=== PATIENT | male | born 1950 | race Caucasian/White ===

== ENCOUNTER 2019-02-27 06:00 | Outpatient (RCR) | payer OTHER, SELFPAY | END 2019-03-29 00:01 | LOC: MPT 06:00 | PROVIDERS: Family Provider Internal Medicine; Visit Provider Internal Medicine | DX: M54.30 Sciatica, unspecified side (principal) | CPT/HCPCS: 97110 ×2; 97140 ×6; 97530 ×5 ==

== ENCOUNTER 2019-03-30 06:00 | Outpatient (RCR) | payer OTHER, SELFPAY | END 2019-04-29 23:59 | disposition home or self-care (01) | LOC: MPT 06:00 | PROVIDERS: Family Provider Internal Medicine; PCP Internal Medicine; Visit Provider Internal Medicine | DX: M54.5 Low back pain (principal) | CPT/HCPCS: 97110; 97116; 97140; 97530 ==

== ENCOUNTER 2019-04-07 13:40 | Emergency (ER) | payer OTHER, SELFPAY ==
[2019-04-07 14:00] VITALS: BP 175/103; PULSE 87; RESP 20; TEMP 36.7; O2SAT 94; BMI 39.5
--- NOTE | 2019-04-07 14:26 | ED_ITS ---
Entered by Lita Hager, acting as scribe for Roberto Keys DO Apr 07, 2019 13:40 HPI - General Adult General: Chief complaint: General Medical Stated complaint: swelling of both legs Time Seen by Provider: 04/07/19 14:22 Source: patient Mode of arrival: ambulatory Limitations: no limitations History of Present Illness: HPI narrative: 69 yo m came to the er pov for swelling in legs and sob. Pt states that he cannot lay flat causes him to loose his breath. Pt states that he has to sleep in his chair cause he cannot lay flat. Pt states that the swelling in his legs since Thursday. Pt states that depending on how he feels he will take a 20 or a 40 in lasiks, pt states that today he took 80gm. Pt says that he also has not had a bowel movement in 5 days. MD complaint: legs swelling and sob Onset (ago): day(s) (5 days ago) Radiation: non-radiation Severity: mild Pain Consistency: constant Relieving factors: none Associated symptoms: Deny chest pain, dyspnea, malaise or rash Treatments prior to arrival: none Review of Systems Const: Denies: fever, chills, body aches, change in appetite, fatigue or malaise ENMT: Denies: throat pain, ear pain, nasal discharge or nasal congestion Card: Denies: chest pain, edema, shortness of breath on exertion or shortness of breath when lying down Resp: Denies: shortness of breath, productive cough or non-productive cough GI: Reports: constipation and other : Denies: flank pain, painful urination, urinary frequency or urinary urgency Skin/Breast: Denies: rash or itching PFSH ED PFSH: Statuses (acute, chronic, etc) shown below reflect problem list status as previously entered and may not be historically accurate Social History Smoking and tobacco status: never smoked Physical Exam Const: COMMON NORMALS: no apparent distress GENERAL APPEARANCE: cooperative and comfortable ORIENTATION/CONSCIOUSNESS: Yes awake, Yes oriented to person, Yes oriented to place and Yes oriented to time HENMT: COMMON NORMALS: normocephalic, head/scalp atraumatic, hearing grossly normal bilaterally, external ears normal, EAC's normal, TM's normal bilaterally, nasal mucous membranes and turbinates normal, moist oral mucous membranes and oropharynx normal HEAD & SCALP: normocephalic and atraumatic NOSE: nasal mucous membranes and turbinates normal EXTERNAL EAR: Yes external ears normal EXTERNAL AUDITORY CANAL: EAC's normal TYMPANIC MEMBRANE: TM's normal bilaterally Eye: COMMON NORMALS: PERRL, EOMs intact bilaterally, conjunctivae normal and no scleral icterus CONJUNCTIVA: Yes conjunctivae normal PUPIL: Yes PERRL Neck/C-Spine: COMMON NORMALS: full ROM, no lymphadenopathy, supple and no JVD Lymph: LYMPHATIC: no lymphadenopathy noted and no lymphedema noted Resp: COMMON NORMALS: normal respiratory effort, no retractions, no use of accessory muscles and clear to auscultation bilaterally AUSCULTATION: clear to auscultation bilaterally Cardio: COMMON NORMALS: no JVD, regular rate, regular rhythm and no murmurs RATE: regular rate RHYTHM: regular rhythm GI: COMMON NORMALS: soft to palpation and no hepatosplenomegaly INSPECTION: Yes anasarca present and Yes pannus present AUSCULTATION: Yes normoactive bowel sounds PALPATION: Yes soft, No tender, No guarding, No rigid and Yes no hepatosplenomegaly Extremity: COMMON NORMALS: normal to inspection, normal capillary refill and no calf tenderness GENERAL: Yes edema (Lateral lower extremity edema there is also some mild anasarca) Neuro: SENSORIUM/ORIENTATION: Yes oriented to person, Yes oriented to place and Yes oriented to time Skin: COMMON NORMALS: no rashes or lesions noted GENERAL SKIN EXAM: no rashes or lesions noted Course Vital Signs: Vital signs: Vital Signs Temperature 98.0 F 04/07/19 14:00 Pulse Rate 89 04/07/19 17:22 Respiratory Rate 17 04/07/19 17:22 Blood Pressure 169/96 04/07/19 17:22 Pulse Oximetry 95 04/07/19 17:22 [facility] - General Adult Lab Data: Labs: Lab Results 04/07/19 04/07/19 04/07/19 Range/Units 14:40 14:40 14:40 WBC 9.8 (4.0-10.0) 10^3/ uL RBC 4.98 (4.1-5.3) 10^6/u L Hgb 14.7 (11.7-16.6) g/dL Hct 42.7 (42.0-52.0) % MCV 85.7 (80-94) fL MCH 29.5 (28.0-34.0) pg MCHC 34.4 (30.0-36.0) g/dL RDW 12.6 (12.1-15.1) % Plt Count 194 (130-400) 10^3/c mm MPV 9.8 (7.4-10.4) fL Neut % (Auto) 61.7 % Lymph % (Auto) 29.5 % [place] % (Auto) 6.4 % Eos % (Auto) 1.5 % Baso % (Auto) 0.4 % Neut # (Auto) 6.0 (1.8-7.7) 10^3/u L Lymph # (Auto) 2.9 (0.8-4.8) 10^3/u L [place] # (Auto) 0.6 (0.2-0.9) 10^3/u L Eos # (Auto) 0.2 (0.0-0.8) 10^3/u L Baso # (Auto) 0.0 (0.0-0.1) 10^3/u L Nucleated RBC % (a uto) 0 % Nucleated RBCs # 0.0 /100WBC Sodium 141 (136-145) mmol/L Potassium 3.4 L (3.5-5.1) mmol/L Chloride 100 (98-107) mmol/L Carbon Dioxide 29 (22-29) mmol/L Anion Gap 15.4 (5-19) BUN 13 (8-23) mg/dL Creatinine 0.9 (0.7-1.2) mg/dL GFR Calculation 83.4 L (90-130) mL/min Glucose 127 H (74-106) mg/dL Calcium 9.4 (8.8-10.2) mg/Dl Total Bilirubin 0.3 (0.15-1.2) mg/dL AST 26 (0-40) U/L ALT 19 (0-41) U/L Alkaline Phosphata se 100 (40-130) IU/L NT-Pro-B Natriuret Pep 946 H (0-125) pg/mL Total Protein 6.3 L (6.6-8.7) g/dL Albumin 4.0 (3.5-5.2) g/dL Globulin 2.3 (1.3-4.6) g/dL Imaging Data^: CXR: Radiologist's impression: [address] [address] XRay Report Signed Patient: Giles Guillaume LMR#: [id number] : 9Acct:[id number] Age/Sex: 69 / MADM Date: 04/07/19 Loc: ER Attending Dr: Ordering Physician: Roberto Keys DO Date of Service: 04/07/19 Procedure(s): XR chest 1V portable [id number] Accession Number(s): [id number] Report Number: [id number] WS: [id number] Portable AP upright chest, 04/07/2019 Clinical Data: dyspnea Comparison: Portable chest, 02/12/2018. Findings: No nodules, masses or effusions are seen. The heart is enlarged. The pulmonary vascularity is not increased. No pneumonia or pneumothorax is seen. The aortic arch and descending aorta show calcification and tortuosity. Cardiomegaly and atherosclerosis. XR/XR chest 1V portable [id number] Impression: Dictated By:Tiffanie Mccabe MD Discharge Plan Discharge Patient Disposition: Home, Self-Care Clinical Impression: Edema Qualifiers: Edema type: generalized Qualified Code(s): R60.1 - Generalized edema Condition: Stable Prescriptions: New Lasix 40 mg tablet 60 mg PO DAILY Qty: 7 RF: 0 potassium chloride 20 mEq tablet extended release 40 meq PO BID Qty: 12 RF: 0 Discharge Orders: Discharge Order (Routine); Ordered 04/07/19 Ordered By: Roberto Keys Referrals: Trent Carolina [Primary Care Provider] - Discharge Diet: Low Salt Discharge Activity: Resume usual activity Activity Restrictions/Additional Instructions: Follow-up with your primary care doctor in 3 days. For the next 3 days take Lasix 60 mg daily and potassium 40 mEq twice daily after 3 days resume your usual doses of both Lasix and potassium. Interventions: ED Discharge Assessment Last Done: 04/07/19 17:22 Discharge Date/Time: 04/07/19 17:23 Coding Level of Care Code ED Cultural Anthropology Professor for Chg Fwd Exam Problem Focused The documentation recorded by the Madan fitzpatrick Stephanie Lyn, accurately reflects the service I personally performed and the decisions made by me, Roberto Keys, Apr 07, 2019 13:40
[2019-04-07 14:40] VITALS: RESP 20
--- NOTE | 2019-04-07 14:44 | XR_ITS ---
WS: [id number] Portable AP upright chest, 04/07/2019 Clinical Data: dyspnea Comparison: Portable chest, 02/12/2018. Findings: No nodules, masses or effusions are seen. The heart is enlarged. The pulmonary vascularity is not increased. No pneumonia or pneumothorax is seen. The aortic arch and descending aorta show trice cification and tortuosity. Cardiomegaly and atherosclerosis. XR/XR chest 1V portable [id number] Impression:
[2019-04-07 15:01] LABS: Basophils % 0.4 %; Eosinophils # 0.2 10^3/uL (0.0-0.8); Eosinophils % 1.5 %; Hematocrit 42.7 % (42.0-52.0); Hemoglobin 14.7 g/dL (11.7-16.6); Lymphocytes # 2.9 10^3/uL (0.8-4.8); Lymphocytes % 29.5 %; Mean Corpuscular HGB Conc 34.4 g/dL (30.0-36.0); Mean Corpuscular Hemoglobin 29.5 pg (28.0-34.0); Mean Corpuscular Volume 85.7 fL (80-94); Mean Platelet Volume 9.8 fL (7.4-10.4); Monocytes # 0.6 10^3/uL (0.2-0.9); Monocytes % 6.4 %; Neutrophils % 61.7 %; Nucleated Red Blood Cells % 0 %; Platelet Count 194 10^3/cmm (130-400); Red Blood Count 4.98 10^6/uL (4.1-5.3); Red Cell Distribution Width 12.6 % (12.1-15.1); White Blood Count 9.8 10^3/uL (4.0-10.0)
[2019-04-07 15:17] LABS: Alanine Aminotransferase 19 U/L (0-41); Alkaline Phosphatase 100 IU/L (40-130); Anion Gap 15.4 (5-19); Blood Urea Nitrogen 13 mg/dL (8-23); Calcium 9.4 mg/Dl (8.8-10.2); Carbon Dioxide 29 mmol/L (22-29); Chloride 100 mmol/L (98-107); Globulin 2.3 g/dL (1.3-4.6); Glomerular Filtration Rate 83.4 mL/min (90-130); Glucose 127 mg/dL (74-106); Potassium 3.4 mmol/L (3.5-5.1); Sodium 141 mmol/L (136-145); Total Bilirubin 0.3 mg/dL (0.15-1.2); Total Protein 6.3 g/dL (6.6-8.7)
[2019-04-07 15:27] LABS: NT Pro B Type Natriuretic Pept 946 pg/mL (0-125)
[2019-04-07 15:40] LABS: Aspartate Amino Transferase 26 U/L (0-40)
[2019-04-07] MEDS: FUROsemide 10 mg/mL SDV 10mL 60 MG IVP (16:36)
[2019-04-07 17:22] VITALS: BP 169/96; PULSE 89; RESP 17; O2SAT 95
== END 2019-04-07 17:23 | disposition home or self-care (01) ==
PROVIDERS: Emergency Provider Family Medicine; Family Provider Internal Medicine; PCP Internal Medicine
DX: R60.1 Generalized edema (principal); I70.0 Atherosclerosis of aorta
CPT/HCPCS: 71045; 80053; 83880; 85025; 96374; 96375; 99281; J1940

== ENCOUNTER 2019-04-30 06:00 | Outpatient (RCR) | payer OTHER, SELFPAY | END 2019-05-28 23:59 | disposition home or self-care (01) | LOC: MPT 06:00 | PROVIDERS: Family Provider Internal Medicine; PCP Internal Medicine; Visit Provider Internal Medicine | DX: Z01.89 Encounter for other specified special examinations (principal) ==

== ENCOUNTER 2019-05-04 14:36 | Emergency (ER) | payer OTHER, SELFPAY ==
[2019-05-04 14:42] VITALS: BP 207/138; PULSE 99; RESP 16; TEMP 36.6; O2SAT 94; BMI 39.5
--- NOTE | 2019-05-04 14:44 | ED_ITS ---
Entered by Juliette Reid, acting as scribe for Roberto Keys DO May 04, 2019 14:36 HPI - General Adult General: Chief complaint: General Medical Stated complaint: High Blood pressure Time Seen by Provider: 05/04/19 14:44 PFSH ED PFSH: Statuses (acute, chronic, etc) shown below reflect problem list status as previously entered and may not be historically accurate Social History Smoking and tobacco status: former smoker Course Vital Signs: Vital signs: Vital Signs Temperature 97.8 F 05/04/19 14:42 Pulse Rate 85 05/04/19 17:14 Respiratory Rate 20 H 05/04/19 17:14 Blood Pressure 188/119 05/04/19 17:14 Pulse Oximetry 94 05/04/19 17:14 MDM - General Adult Lab Data: Labs: Lab Results 05/04/19 05/04/19 05/04/19 Range/Units 15:30 15:30 15:51 WBC 10.2 H (4.0-10.0) 10^3/ uL RBC 5.34 H (4.1-5.3) 10^6/u L Hgb 15.2 (11.7-16.6) g/dL Hct 45.7 (42.0-52.0) % MCV 85.6 (80-94) fL MCH 28.5 (28.0-34.0) pg MCHC 33.3 (30.0-36.0) g/dL RDW 13.0 (12.1-15.1) % Plt Count 212 (130-400) 10^3/c mm MPV 10.5 H (7.4-10.4) fL Neut % (Auto) 59.7 % Lymph % (Auto) 30.8 % [place] % (Auto) 7.1 % Eos % (Auto) 1.6 % Baso % (Auto) 0.6 % Neut # (Auto) 6.1 (1.8-7.7) 10^3/u L Lymph # (Auto) 3.1 (0.8-4.8) 10^3/u L [place] # (Auto) 0.7 (0.2-0.9) 10^3/u L Eos # (Auto) 0.2 (0.0-0.8) 10^3/u L Baso # (Auto) 0.1 (0.0-0.1) 10^3/u L Nucleated RBC % (a uto) 0 % Nucleated RBCs # 0.0 /100WBC Sodium 141 (136-145) mmol/L Potassium 3.8 (3.5-5.1) mmol/L Chloride 102 (98-107) mmol/L Carbon Dioxide 29 (22-29) mmol/L Anion Gap 13.8 (5-19) BUN 10 (8-23) mg/dL Creatinine 1.3 H (0.7-1.2) mg/dL GFR Calculation 54.6 L (90-130) mL/min Glucose 119 H (65-115) mg/dL Calcium 9.6 (8.5-10.5) mg/dL Total Bilirubin 0.4 (0.15-1.2) mg/dL AST 30 (0-40) U/L ALT 11 (0-41) U/L Alkaline Phosphata se 100 (40-130) IU/L NT-Pro-B Natriuret Pep 1841 H (0-125) pg/mL Total Protein 6.9 (6.6-8.7) g/dL Albumin 4.1 (3.5-5.2) g/dL Globulin 2.8 (1.3-4.6) g/dL Urine Color Yellow (Yellow) Urine Appearance Clear (CLEAR) Urine pH 7 (5-7) Ur Specific Gravit y 1.005 (1.005-1.030) Urine Protein 1+ H (Negative) Urine Glucose (UA) Norm (Normal) Urine Ketones Negative (Negative) Urine Occult Blood Neg (Negative) Urine Nitrate Negative (Negative) Urine Bilirubin Neg (NEGATIVE) Urine Urobilinogen Norm (Negative) mg/dL Ur Leukocyte Fariha ase Negative (Negative) Urine RBC 0-4 H (0-2) /hpf Urine WBC None (0-5) /hpf Ur Squamous Epith Cells None (0-5) Urine Bacteria None (NONE) Discharge Plan Discharge Patient Disposition: Home, Self-Care Clinical Impression: Benign essential HTN, Atrial fibrillation, chronic CHF (congestive heart failure) Qualifiers: Heart failure type: unspecified Heart failure chronicity: chronic Qualified Code(s): I50.9 - Heart failure, unspecified Chronic hip pain Qualifiers: Laterality: right Qualified Code(s): M25.551 - Pain in right hip Condition: Stable Prescriptions: New clonidine HCl 0.1 mg tablet 0.1 mg PO Q6H PRN (Reason: hypertensive emergency) 2 Days Qty: 14 RF: 0 No Action Lasix 40 mg tablet 60 mg PO DAILY Qty: 7 RF: 0 potassium chloride 20 mEq tablet extended release 40 meq PO BID Qty: 12 RF: 0 Discharge Orders: Discharge Order (Routine); Ordered 05/04/19 Ordered By: Lee Villalobos Referrals: Trent Carolina [Primary Care Provider] - Discharge Diet: Advance as tolerated Discharge Activity: Increase activity as tolerated Patient Instructions: Chronic Hypertension (ED) Activity Restrictions/Additional Instructions: Follow-up with medical provider as directed. Take medications as prescribed. Return to the ER or your medical provider if condition worsens. Please read and understand discharge instructions. If any questions ask please. [facility] 2 Discharge Date/Time: 05/04/19 17:15 Coding Level of Care Code ED Automatic Mold Sander for Chg Randal The documentation recorded by the Franklin fitzpatrick Bridget Annette, accurately reflects the service I personally performed and the decisions made by Massimo holguin Curtis L, DO May 04, 2019 14:36
[2019-05-04 14:55] VITALS: O2SAT 95
--- NOTE | 2019-05-04 15:07 | XRR_ITS ---
PROCEDURE INFORMATION: Exam: XR Chest, 1 View Exam date and time: 05/04/2019 3:23 PM Age: 69 years old Clinical indication: Shortness of breath TECHNIQUE: Imaging protocol: XR of the chest Views: 1 view. COMPARISON: CR XR chest 1V portable [id number] 04/07/2019 2:59 PM FINDINGS: Lungs: Unremarkable. No consolidation. Pleural space: Unremarkable. No pleural effusion. No pneumothorax. Heart/Mediastinum: Unremarkable. No cardiomegaly. Bones/joints: Unremarkable. No interval changes are noted compared to prior XR/XR chest 1V portable [id number] IMPRESSION: Stable examination No acute findings.
--- NOTE | 2019-05-04 15:07 | ECG_ITS ---
Measurements Intervals [place] Rate: 86 P: VT: 0 QRS: 58 QRSD: 120 T: 1 QT: 416 QTc: 499 ATRIAL FIBRILLATION RIGHT BUNDLE BRANCH BLOCK [120+ ms QRS DURATION, UPRIGHT V1, 40+ ms S IN I/ I/aVL/V4/V5/V6] Compared to ECG 02/13/2018 04:21:11 Right bundle-branch block now present Atrial abnormality no longer present Electronically Signed On 05-04-2019 17:28:27 CHILD CARE TEAM LEAD by Dennys Fernandez M.D. [email or web address]
--- NOTE | 2019-05-04 15:14 | ED_ITS ---
HPI - General Adult General: Chief complaint: General Medical Stated complaint: High Blood pressure Time Seen by Provider: 05/04/19 14:44 History of Present Illness: HPI narrative: Patient was sent here by physical therapy due to high blood pressure reading prior to start of therapy. Patient is been having therapy on his right leg since October. [facility] Recently placed on losartan 2 weeks ago. MD complaint: htn Onset (ago): week(s) Associated symptoms: Deny chest pain, dyspnea, headache(s), nausea, rash or vomiting Review of Systems Const: Denies: fever, chills or body aches Eyes: Denies: change in vision or blurry vision ENMT: Denies: throat pain or nasal congestion Card: Reports: other (High blood pressure); Denies: chest pain or shortness of breath on exertion Resp: Denies: shortness of breath, productive cough or non-productive cough GI: Denies: abdominal pain, nausea or vomiting : Denies: difficulty urinating Musc: Reports: extremity pain Skin/Breast: Denies: rash Neuro: Denies: headache Psych: Denies: anxiety or depression Bharat/Lymph: Denies: easy bruising PFSH ED PFSH: Statuses (acute, chronic, etc) shown below reflect problem list status as previously entered and may not be historically accurate Social History Smoking and tobacco status: former smoker Physical Exam Const: COMMON NORMALS: no apparent distress, average body habitus and oriented x3 HENMT: COMMON NORMALS: normocephalic HEAD & SCALP: normal to inspection and normocephalic FACE & SINUS: normal facial exam Eye: COMMON NORMALS: conjunctivae normal GENERAL EYE: normal appearance of both eyes CONJUNCTIVA: Yes conjunctivae normal Neck/C-Spine: COMMON NORMALS: no JVD Chest: COMMONS NORMALS: inspection of chest normal Resp: COMMON NORMALS: normal respiratory effort and clear to auscultation bilaterally AUSCULTATION: clear to auscultation bilaterally Cardio: COMMON NORMALS: no JVD, regular rate and regular rhythm JUGULAR VENOUS DISTENTION: no JVD RATE: regular rate RHYTHM: regular rhythm PERIPHERAL PULSES: other (Has bilateral pedal edema 2+) GI: COMMON NORMALS: normal to inspection, nondistended, normoactive bowel sounds AUSCULTATION: Yes normoactive bowel sounds OTHER: Obesity Extremity: COMMON NORMALS: normal to inspection and full ROM Neuro: COMMON NORMALS: oriented x3 Course Vital Signs: Vital signs: Vital Signs Temperature 97.8 F 05/04/19 14:42 Pulse Rate 71 05/04/19 16:35 Respiratory Rate 18 05/04/19 16:35 Blood Pressure 154/99 05/04/19 16:42 Pulse Oximetry 95 05/04/19 16:35 MDM - General Adult MDM Narrative: Medical decision making narrative: Blood pressure is much better shot has helped his pain Lab Data: Labs: Lab Results 05/04/19 05/04/19 Range/Units 15:30 15:30 WBC 10.2 H (4.0-10.0) 10^3/ uL RBC 5.34 H (4.1-5.3) 10^6/u L Hgb 15.2 (11.7-16.6) g/dL Hct 45.7 (42.0-52.0) % MCV 85.6 (80-94) fL MCH 28.5 (28.0-34.0) pg MCHC 33.3 (30.0-36.0) g/dL RDW 13.0 (12.1-15.1) % Plt Count 212 (130-400) 10^3/c mm MPV 10.5 H (7.4-10.4) fL Neut % (Auto) 59.7 % Lymph % (Auto) 30.8 % [place] % (Auto) 7.1 % Eos % (Auto) 1.6 % Baso % (Auto) 0.6 % Neut # (Auto) 6.1 (1.8-7.7) 10^3/u L Lymph # (Auto) 3.1 (0.8-4.8) 10^3/u L [place] # (Auto) 0.7 (0.2-0.9) 10^3/u L Eos # (Auto) 0.2 (0.0-0.8) 10^3/u L Baso # (Auto) 0.1 (0.0-0.1) 10^3/u L Nucleated RBC % (a uto) 0 % Nucleated RBCs # 0.0 /100WBC Sodium 141 (136-145) mmol/L Potassium 3.8 (3.5-5.1) mmol/L Chloride 102 (98-107) mmol/L Carbon Dioxide 29 (22-29) mmol/L Anion Gap 13.8 (5-19) BUN 10 (8-23) mg/dL Creatinine 1.3 H (0.7-1.2) mg/dL GFR Calculation 54.6 L (90-130) mL/min Glucose 119 H (65-115) mg/dL Calcium 9.6 (8.5-10.5) mg/dL Total Bilirubin 0.4 (0.15-1.2) mg/dL AST 30 (0-40) U/L ALT 11 (0-41) U/L Alkaline Phosphata se 100 (40-130) IU/L NT-Pro-B Natriuret Pep 1841 H (0-125) pg/mL Total Protein 6.9 (6.6-8.7) g/dL Albumin 4.1 (3.5-5.2) g/dL Globulin 2.8 (1.3-4.6) g/dL EKG Data^: EKG 1: EKG interpretation date: 05/04/19 EKG interpretation time: 15:36 Interpretation: Atrial fib, RBBB, 86 bpm Computer generated interpretation: Chest X-Ray 05/04/19 15:07 IMPRESSION: Stable examination No acute findings. Discharge Plan Discharge Patient Disposition: Home, Self-Care Clinical Impression: Benign essential HTN, Atrial fibrillation, chronic Condition: Stable Prescriptions: New clonidine HCl 0.1 mg tablet 0.1 mg PO Q6H PRN (Reason: hypertensive emergency) 2 Days Qty: 14 RF: 0 No Action Lasix 40 mg tablet 60 mg PO DAILY Qty: 7 RF: 0 potassium chloride 20 mEq tablet extended release 40 meq PO BID Qty: 12 RF: 0 Discharge Orders: Discharge Order (Routine); Ordered 05/04/19 Ordered By: Lee Villalobos Referrals: Trent Carolina [Primary Care Provider] - Discharge Diet: Advance as tolerated Discharge Activity: Increase activity as tolerated Patient Instructions: Chronic Hypertension (ED) Activity Restrictions/Additional Instructions: Follow-up with medical provider as directed. Take medications as prescribed. Return to the ER or your medical provider if condition worsens. Please read and understand discharge instructions. If any questions ask please. [facility] 2 Coding Level of Care Code ED Educational Guidance Counselor for Chg Fwd Exam Problem Focused
[2019-05-04 15:35] LABS: Basophils # 0.1 10^3/uL (0.0-0.1); Basophils % 0.6 %; Eosinophils # 0.2 10^3/uL (0.0-0.8); Eosinophils % 1.6 %; Hematocrit 45.7 % (42.0-52.0); Hemoglobin 15.2 g/dL (11.7-16.6); Lymphocytes # 3.1 10^3/uL (0.8-4.8); Lymphocytes % 30.8 %; Mean Corpuscular HGB Conc 33.3 g/dL (30.0-36.0); Mean Corpuscular Hemoglobin 28.5 pg (28.0-34.0); Mean Corpuscular Volume 85.6 fL (80-94); Mean Platelet Volume 10.5 fL (7.4-10.4); Monocytes # 0.7 10^3/uL (0.2-0.9); Monocytes % 7.1 %; Neutrophils # 6.1 10^3/uL (1.8-7.7); Neutrophils % 59.7 %; Nucleated Red Blood Cells % 0 %; Platelet Count 212 10^3/cmm (130-400); Red Blood Count 5.34 10^6/uL (4.1-5.3); White Blood Count 10.2 10^3/uL (4.0-10.0)
[2019-05-04 15:53] LABS: Alanine Aminotransferase 11 U/L (0-41); Albumin Level 4.1 g/dL (3.5-5.2); Alkaline Phosphatase 100 IU/L (40-130); Anion Gap 13.8 (5-19); Aspartate Amino Transferase 30 U/L (0-40); Carbon Dioxide 29 mmol/L (22-29); Chloride 102 mmol/L (98-107); Globulin 2.8 g/dL (1.3-4.6); Glucose 119 mg/dL (65-115); Potassium 3.8 mmol/L (3.5-5.1); Sodium 141 mmol/L (136-145); Total Bilirubin 0.4 mg/dL (0.15-1.2); Total Protein 6.9 g/dL (6.6-8.7)
[2019-05-04 16:12] LABS: Blood Urea Nitrogen 10 mg/dL (8-23); Calcium 9.6 mg/dL (8.5-10.5); Glomerular Filtration Rate 54.6 mL/min (90-130); NT Pro B Type Natriuretic Pept 1841 pg/mL (0-125)
[2019-05-04 16:35] VITALS: BP 154/99; PULSE 71; RESP 18; O2SAT 95
[2019-05-04 16:42] VITALS: BP 154/99
[2019-05-04] MEDS: cloNIDine 0.1 mg Tablet PO (16:42)
[2019-05-04] MEDS: ketorolac 60 mg/2 mL INJ IM (16:42)
[2019-05-04 17:09] LABS: Add Urine Microscopic? YES; Bilirubin Urine Neg (NEGATIVE); Blood Urine Neg (Negative); Glucose Urine UA Norm (Normal); Ketones Urine Negative (Negative); Leukocyte Esterase Urine Negative (Negative); Nitrate Urine Negative (Negative); Protein Urine 1+ (Negative); Specific Gravity, Urine 1.005 (1.005-1.030); Urine Appearance Clear (CLEAR); Urine Color Yellow (Yellow); Urobilinogen Urine Norm (Negative); pH Urine 7 (5-7)
[2019-05-04 17:13] LABS: RBC Urine 0-4 /hpf (0-2)
[2019-05-04 17:14] VITALS: BP 188/119; PULSE 85; RESP 20; O2SAT 94
== END 2019-05-04 17:15 | disposition home or self-care (01) ==
PROVIDERS: Emergency Provider Nurse Practitioner Family; Family Provider Internal Medicine; PCP Internal Medicine
DX: I48.20 Chronic atrial fibrillation, unspecified (principal); I10 Essential (primary) hypertension; Z87.891 Personal history of nicotine dependence
CPT/HCPCS: 36415; 71045; 80053; 81001; 83880; 85025; 93005; 96372; 99282; 99283; A9270; J1885

== ENCOUNTER 2019-05-31 13:32 | Emergency (ER) | payer OTHER, SELFPAY ==
[2019-05-31 13:37] VITALS: BP 167/109; PULSE 87; RESP 17; TEMP 36.7; O2SAT 97; BMI 41.6
--- NOTE | 2019-05-31 13:45 | XR_ITS ---
WS: [id number] XR chest 1V portable [id number] REASON FOR EXAM: sob FINDINGS: Cardiomegaly is noted. Arteriosclerotic changes in the arch of the aorta. The lung mazariegos are well aerated. No pneumonia, pleural effusion, pulmonary edema, mass effect, or pn eumothorax. The hilum and apices are normal. No osseous abnormalities. XR/XR chest 1V portable [id number] IMPRESSION: Arteriosclerotic heart disease.
[2019-05-31 14:41] LABS: Basophils % 0.3 %; Eosinophils # 0.1 10^3/uL (0.0-0.8); Hematocrit 46.4 % (42.0-52.0); Hemoglobin 15.7 g/dL (11.7-16.6); Lymphocytes % 28.1 %; Mean Corpuscular HGB Conc 33.8 g/dL (30.0-36.0); Mean Corpuscular Hemoglobin 29.3 pg (28.0-34.0); Mean Corpuscular Volume 86.7 fL (80-94); Mean Platelet Volume 10.5 fL (7.4-10.4); Monocytes # 0.7 10^3/uL (0.2-0.9); Monocytes % 6.6 %; Neutrophils # 6.7 10^3/uL (1.8-7.7); Neutrophils % 63.6 %; Nucleated Red Blood Cells % 0 %; Platelet Count 200 10^3/cmm (130-400); Red Blood Count 5.35 10^6/uL (4.1-5.3); Red Cell Distribution Width 13.5 % (12.1-15.1); White Blood Count 10.5 10^3/uL (4.0-10.0)
[2019-05-31 15:15] LABS: Alanine Aminotransferase 23 U/L (0-41); Albumin Level 4.2 g/dL (3.5-5.2); Alkaline Phosphatase 107 IU/L (40-130); Anion Gap 17.5 (5-19); Aspartate Amino Transferase 28 U/L (0-40); Blood Urea Nitrogen 11 mg/dL (8-23); Calcium 9.6 mg/dL (8.5-10.5); Carbon Dioxide 31 mmol/L (22-29); Chloride 98 mmol/L (98-107); Globulin 2.6 g/dL (1.3-4.6); Glomerular Filtration Rate 59.9 mL/min (90-130); Glucose 128 mg/dL (65-115); NT Pro B Type Natriuretic Pept 2005 pg/mL (0-125); Potassium 3.5 mmol/L (3.5-5.1); Sodium 143 mmol/L (136-145); Total Bilirubin 0.7 mg/dL (0.15-1.2); Total Protein 6.8 g/dL (6.6-8.7)
[2019-05-31 16:09] VITALS: O2SAT 95
--- NOTE | 2019-05-31 16:22 | ED_ITS ---
HPI - General Adult General: Chief complaint: Shortness of Breath/Dyspnea Stated complaint: FLUID BUILT UP Time Seen by Provider: 05/31/19 16:03 History of Present Illness: HPI narrative: Patient comes in here with complaint of chronic shortness of breath fluid retention chronic back pain patient able to talk in full sentences and continue talk for quite a while he does not appear short of breath says it is more when he gets up and and exerts himself he cut back his water pill complaint: Chronic shortness of breath Onset (ago): month(s) Associated symptoms: Reports dyspnea; Deny chest pain, cough, fevers/chills, headache(s), nausea, rash or vomiting Review of Systems Const: Denies: fever, chills or body aches Eyes: Denies: change in vision or blurry vision ENMT: Denies: throat pain or nasal congestion Card: Reports: other (Edema); Denies: chest pain Resp: Reports: shortness of breath; Denies: productive cough or non-productive cough GI: Denies: abdominal pain, nausea or vomiting : Denies: difficulty urinating Musc: Denies: extremity pain Skin/Breast: Denies: rash Neuro: Denies: headache Psych: Denies: anxiety or depression Bharat/Lymph: Denies: easy bruising PFSH ED PFSH: Social History Smoking and tobacco status: former smoker Physical Exam Const: COMMON NORMALS: no apparent distress, average body habitus and oriented x3 HENMT: COMMON NORMALS: normocephalic HEAD & SCALP: normal to inspection and normocephalic FACE & SINUS: normal facial exam Eye: COMMON NORMALS: conjunctivae normal GENERAL EYE: normal appearance of both eyes CONJUNCTIVA: Yes conjunctivae normal Neck/C-Spine: COMMON NORMALS: no JVD Chest: COMMONS NORMALS: inspection of chest normal Resp: COMMON NORMALS: normal respiratory effort AUSCULTATION: crackles and diminished lung sounds Cardio: COMMON NORMALS: no JVD, regular rate and regular rhythm RATE: regular rate RHYTHM: regular rhythm GI: COMMON NORMALS: normal to inspection, nondistended, normoactive bowel sounds Extremity: COMMON NORMALS: normal to inspection and full ROM OTHER: 3+ edema bilateral lower extremities Neuro: COMMON NORMALS: oriented x3 Course Vital Signs: Vital signs: Vital Signs Temperature 98.1 F 05/31/19 13:37 Pulse Rate 87 05/31/19 13:37 Respiratory Rate 17 05/31/19 13:37 Blood Pressure 167/109 05/31/19 13:37 Pulse Oximetry 95 05/31/19 16:09 [facility] - General Adult Lab Data: Labs: Lab Results 05/31/19 05/31/19 Range/Units 14:25 14:25 WBC 10.5 H (4.0-10.0) 10^3/ uL RBC 5.35 H (4.1-5.3) 10^6/u L Hgb 15.7 (11.7-16.6) g/dL Hct 46.4 (42.0-52.0) % MCV 86.7 (80-94) fL MCH 29.3 (28.0-34.0) pg MCHC 33.8 (30.0-36.0) g/dL RDW 13.5 (12.1-15.1) % Plt Count 200 (130-400) 10^3/c mm MPV 10.5 H (7.4-10.4) fL Neut % (Auto) 63.6 % Lymph % (Auto) 28.1 % [place] % (Auto) 6.6 % Eos % (Auto) 1.0 % Baso % (Auto) 0.3 % Neut # (Auto) 6.7 (1.8-7.7) 10^3/u L Lymph # (Auto) 3.0 (0.8-4.8) 10^3/u L [place] # (Auto) 0.7 (0.2-0.9) 10^3/u L Eos # (Auto) 0.1 (0.0-0.8) 10^3/u L Baso # (Auto) 0.0 (0.0-0.1) 10^3/u L Nucleated RBC % (a uto) 0 % Nucleated RBCs # 0.0 /100WBC Sodium 143 (136-145) mmol/L Potassium 3.5 (3.5-5.1) mmol/L Chloride 98 (98-107) mmol/L Carbon Dioxide 31 H (22-29) mmol/L Anion Gap 17.5 (5-19) BUN 11 (8-23) mg/dL Creatinine 1.2 (0.7-1.2) mg/dL GFR Calculation 59.9 L (90-130) mL/min Glucose 128 H (65-115) mg/dL Calcium 9.6 (8.5-10.5) mg/dL Total Bilirubin 0.7 (0.15-1.2) mg/dL AST 28 (0-40) U/L ALT 23 (0-41) U/L Alkaline Phosphata se 107 (40-130) IU/L NT-Pro-B Natriuret Pep 2005 H (0-125) pg/mL Total Protein 6.8 (6.6-8.7) g/dL Albumin 4.2 (3.5-5.2) g/dL Globulin 2.6 (1.3-4.6) g/dL Discharge Plan Discharge Patient Disposition: Home, Self-Care Clinical Impression: Congestive heart failure Qualifiers: Heart failure type: unspecified Heart failure chronicity: chronic Qualified Code(s): I50.9 - Heart failure, unspecified Condition: Stable Prescriptions: New tramadol 50 mg tablet 50 mg PO Q6H PRN (Reason: pain) Qty: 20 RF: 0 No Action Lasix 40 mg tablet 60 mg PO DAILY Qty: 7 RF: 0 potassium chloride 20 mEq tablet extended release 40 meq PO BID Qty: 12 RF: 0 Discharge Orders: Discharge Order (Routine); Ordered 05/31/19 Ordered By: Lee Villalobos Referrals: Trent Carolina [Primary Care Provider] - Discharge Diet: Usual diet Discharge Activity: Increase activity as tolerated Patient Instructions: Congestive Heart Failure, Fluid Restriction (ED), Chronic Back Pain (ED) Activity Restrictions/Additional Instructions: Follow-up with medical provider as directed. Take medications as prescribed. Return to the ER or your medical provider if condition worsens. Please read and understand discharge instructions. If any questions ask please. Double up Lasix for next 3 to 5 days and double potassium also follow-up primary care provider to talk about medication to help with fluid limit fluid intake Coding Level of Care Code ED English Composition Teacher for Yris Tee
[2019-05-31 16:52] LABS: Influenza A by IFA Negative (Negative); Influenza B by IFA Negative (Negative)
[2019-05-31 16:57] VITALS: BP 158/99; PULSE 78; RESP 20; O2SAT 95
== END 2019-05-31 16:57 | disposition home or self-care (01) ==
PROVIDERS: Emergency Provider Nurse Practitioner Family; Family Provider Internal Medicine; PCP Internal Medicine
DX: I50.9 Heart failure, unspecified (principal); Z87.891 Personal history of nicotine dependence
CPT/HCPCS: 36415; 71045; 80053; 83880; 85025; 87804; 99282; 99283

== ENCOUNTER → 2019-06-21 13:15 | Outpatient (BNVA) | payer OTHER, SELFPAY | PROVIDERS: Family Provider Internal Medicine; PCP Internal Medicine; Referring Provider Podiatrist Foot & Ankle Surgery; Visit Provider Podiatrist Foot & Ankle Surgery | DX: M79.671 Pain in right foot (principal) | CPT/HCPCS: 73630 ==

== ENCOUNTER 2019-06-22 13:37 | Outpatient (CLI) | payer OTHER, SELFPAY ==
--- NOTE | 2019-06-22 14:00 | XR_ITS ---
WS: [id number] KUB, 06/22/2019 Clinical Data: RENAL CALCULUS Comparison: KUB, 03/03/2019. Findings: No abnormal intraabdominal masses or calcifications are seen. There is no dilatated small bowel or ev idence of obstruction. There is overlying fecal material obscuring detail over the both kidneys. No definite renal or ureter al calculi are seen. Phleboliths are seen in the true pelvis. The bladder is partly full. XR/XR KUB [id number] Impression: Negative for definite renal or ureteral calculi.
== END 2019-06-22 13:38 | disposition home or self-care (01) ==
LOC: RAD 13:39
PROVIDERS: Family Provider Internal Medicine; PCP Internal Medicine; Visit Provider Urology
DX: N20.0 Calculus of kidney (principal)
CPT/HCPCS: 74018; 80053; 81001; 88112

== ENCOUNTER 2019-06-24 04:36 | Inpatient (IN) | payer OTHER, SELFPAY ==
[2019-06-24] VITALS (18 sets, daily range): BP systolic 158–213; BP diastolic 81–108; PULSE 41–63; RESP 17–22; TEMP 36.6–37.1; O2SAT 92–97; BMI 41.9
--- NOTE | 2019-06-24 04:42 | XR_ITS ---
WS: [id number] Portable AP upright chest, 06/24/2019 Clinical Data: sob Comparison: Portable chest, 05/31/2019 Findings: The patient is developed a patchy opacity in right lower lobe which may represent pneumonia and atelectasis. The left costophrenic angle is partly opacified which may be from pleural reaction and/or atelectasis. The upper lobes are clear. The heart is enlarged. The aortic arch shows calcifica tion. No nodules or masses are seen. Monitor leads are on the chest wall. XR/XR chest 1V portable [id number] Impression: 1. Patchy opacity in right lower lobe which may represent pneumonia or atelecta sis. 2. Cardiomegaly and atherosclerosis.
--- NOTE | 2019-06-24 04:43 | ECG_ITS ---
Measurements Intervals [place] Rate: 47 P: DC: 0 QRS: -32 QRSD: 150 T: 128 QT: 511 QTc: 456 ATRIAL FIBRILLATION WITH SLOW VENTRICULAR RESPONSE MARKED LEFT AXIS DEVIATION [QRS AXIS < -30] INTRAVENTRICULAR CONDUCTION DELAY [130+ ms QRS DURATION] Compared to ECG 05/04/2019 15:36:31 Left-axis deviation now present Intraventricular conduction delay now present Right bundle-branch block no longer present Electronically Signed On 06-25-2019 9:43:06 CDT by Misty Nickerson M.D. [id number]
--- NOTE | 2019-06-24 04:44 | ED_ITS ---
HPI - SOB/Dyspnea General: Chief Complaint: Shortness of Breath/Dyspnea Stated Complaint: sob Time Seen by Provider: 06/24/19 04:42 Source: patient and EMS Mode of arrival: EMS Limitations: no limitations History of Present Illness: HPI Narrative: Patient is a 69-year-old male with a history of congestive heart failure and COPD states he has had increasing shortness of breath throughout the night. States his shortness of breath is much worse with exertion and laying flat. Patient states he is put on 15 pounds over the last week. Patient brought in by EMS and states that he was diaphoretic and quite short of breath when they arrived. He is not requiring any oxygen. He denies any pain. MD elicited complaint: shortness of breath Pertinent past history: congestive heart failure Context: occurred during exertion Timing: constant Severity: moderate Exacerbating factors: lying flat Relieving factors: rest and upright position Known history of: congestive heart failure Associated symptoms: Deny abdominal pain, chest pain, fever(s), nausea or vomiting Related Data: Home oxygen amount: none Review of Systems Const: Denies: fever, chills, body aches or change in appetite Eyes: Denies: blurry vision or eye discomfort ENMT: Denies: throat pain or dental pain Card: Denies: chest pain Resp: Reports: shortness of breath GI: Denies: abdominal pain, nausea, vomiting or diarrhea : Denies: painful urination Musc: Denies: neck pain or back pain Skin/Breast: Denies: rash Neuro: Denies: headache Psych: Denies: depression Bharat/Lymph: Denies: easy bruising All/Imm: Denies: hives PFS ED PFSH: Social History Smoking and tobacco status: light tobacco smoker smokeless tobacco Alcohol intake: never Marital status: Single Current occupational status: retired History of recent travel: No Physical Exam Const: COMMON NORMALS: no apparent distress, oriented x3 and healthy appearing HENMT: COMMON NORMALS: normocephalic and head/scalp atraumatic HEAD & SCALP: normocephalic and atraumatic Eye: COMMON NORMALS: PERRL and EOMs intact bilaterally PUPIL: Yes PERRL Neck/C-Spine: COMMON NORMALS: full ROM and supple Chest: COMMONS NORMALS: inspection of chest normal and palpation of chest normal Resp: COMMON NORMALS: normal respiratory effort, no retractions, no use of accessory muscles and clear to auscultation bilaterally EFFORT & INSPECTION: Yes tachypneic AUSCULTATION: clear to auscultation bilaterally Cardio: COMMON NORMALS: regular rhythm and no murmurs RATE: bradycardic RHYTHM: regular rhythm GI: COMMON NORMALS: normal to inspection, nondistended, normoactive bowel sounds, soft to palpation, non-tender and no masses PALPATION: Yes soft Extremity: COMMON NORMALS: normal to inspection and full ROM NARRATIVE EXTREMITY EXAM: 2+ edema Neuro: COMMON NORMALS: oriented x3, moves all extremities and no focal motor deficits Psych: COMMON NORMALS: mental status grossly normal, thought process normal and cooperative THOUGHT PROCESS: normal thought process Skin: COMMON NORMALS: no rashes or lesions noted and no wounds GENERAL SKIN EXAM: no rashes or lesions noted Course Vital Signs: Vital signs: Vital Signs Temperature 98.5 F 06/24/19 04:45 Pulse Rate 51 L 06/24/19 05:24 Respiratory Rate 22 H 06/24/19 05:24 Blood Pressure 178/90 06/24/19 05:24 Pulse Oximetry 96 06/24/19 05:24 MDM - SOB/Dyspnea MDM Narrative: Medical decision making narrative: Patient presents here with shortness of breath. Patient does have edema and likely has CHF exacerbation. Patient's x-ray shows possible right lower lobe pneumonia versus edema. Patient does have an elevated white count will get blood cultures and treat with Levaquin. Patient does not require CPAP and is not in severe distress. Patient has had some slight bradycardia in the 40s here likely due to beta-blockade. Spoke to hospitalist and will admit. Lab Data: Labs: Lab Results 06/24/19 Range/Units 05:13 WBC 19.8 H (4.0-10.0) 10^3/ uL RBC 5.56 H (4.1-5.3) 10^6/u L Hgb 16.3 (11.7-16.6) g/dL Hct 48.8 (42.0-52.0) % MCV 87.8 (80-94) fL MCH 29.3 (28.0-34.0) pg MCHC 33.4 (30.0-36.0) g/dL RDW 13.4 (12.1-15.1) % Plt Count 228 (130-400) 10^3/c mm MPV 11.0 H (7.4-10.4) fL Neut % (Auto) 78.2 % Lymph % (Auto) 14.4 % [place] % (Auto) 5.8 % Eos % (Auto) 0.7 % Baso % (Auto) 0.3 % Neut # (Auto) 15.5 H (1.8-7.7) 10^3/u L Lymph # (Auto) 2.9 (0.8-4.8) 10^3/u L [place] # (Auto) 1.1 H (0.2-0.9) 10^3/u L Eos # (Auto) 0.1 (0.0-0.8) 10^3/u L Baso # (Auto) 0.1 (0.0-0.1) 10^3/u L Nucleated RBC % (a uto) 0 % Nucleated RBCs # 0.0 /100WBC Imaging Data^: CXR: Attestation: I personally reviewed and interpreted this imaging study as follows: Radiologist's impression: rll pneumonia EKG Data^: EKG 1: Attestation: I personally reviewed and interpreted this EKG as follows: EKG Interpretation Date: 06/24/19 EKG interpretation time: 04:48 Interpretation: afib with slow rvr hr [address] or t wave abnormalities Discharge Plan Discharge Patient Disposition: Admitted As Inpatient Clinical Impression: Community acquired pneumonia Qualifiers: Laterality: right Lung location: lower lobe of lung Qualified Code(s): J18.9 - Pneumonia, unspecified organism Congestive heart failure Qualifiers: Heart failure type: unspecified Heart failure chronicity: acute on chronic Qualified Code(s): I50.9 - Heart failure, unspecified Condition: Stable Coding Level of Care Code ED 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
[2019-06-24] MEDS: ipratropium-albuterol 3 mL Neb INHALATION ×2 (05:17→10:20)
[2019-06-24] MEDS: FUROsemide 10 mg/mL SDV 10mL 80 MG IVP (05:21)
[2019-06-24 05:25] LABS: Basophils # 0.1 10^3/uL (0.0-0.1); Basophils % 0.3 %; Eosinophils # 0.1 10^3/uL (0.0-0.8); Eosinophils % 0.7 %; Hematocrit 48.8 % (42.0-52.0); Hemoglobin 16.3 g/dL (11.7-16.6); Lymphocytes # 2.9 10^3/uL (0.8-4.8); Lymphocytes % 14.4 %; Mean Corpuscular HGB Conc 33.4 g/dL (30.0-36.0); Mean Corpuscular Hemoglobin 29.3 pg (28.0-34.0); Mean Corpuscular Volume 87.8 fL (80-94); Monocytes # 1.1 10^3/uL (0.2-0.9); Monocytes % 5.8 %; Neutrophils # 15.5 10^3/uL (1.8-7.7); Neutrophils % 78.2 %; Nucleated Red Blood Cells % 0 %; Platelet Count 228 10^3/cmm (130-400); Red Blood Count 5.56 10^6/uL (4.1-5.3); Red Cell Distribution Width 13.4 % (12.1-15.1); White Blood Count 19.8 10^3/uL (4.0-10.0)
[2019-06-24 05:35] LABS: INR 1.09 (0.8-1.2)
--- NOTE | 2019-06-24 05:45 | PM.HP ---
Providers/Chief Complaint Admitting Physician: Dr Tovar Primary Care Provider: Trent Novoa Chief Complaint: CHF, BRADYCARDIA History of Present Illness Giles Guillaume is a 69 year old male who presents to the emergency room via EMS with a chief complaint of shortness of breath. He is a challenging historian. He has had progressively worsening shortness of breath and edema for several months. I cannot discern exactly what happened to make him come in acutely this morning. He describes significant weight gain of maybe 15 pounds. He has tried increasing dose of Lasix, under guidance from both ED and primary care providers to his much as 120 mg a day for several days. He will have some improvement in his edema but then it comes right back as soon as he goes down to his lower dose of Lasix. He has fluid that is extended up into his belly. He complains of his breast being swollen but has not had any scrotal edema. He does not think the Lasix is working for him. Lasix dosing has gone from 40 mg, to 60 mg, 80 and then the intermittent 120 mg. He had 120 mg of Lasix a day for the past 2 days. I really cannot discern what happened to make him come in to the emergency room tonight acutely. He denies chest pain but just being so short of breath with exertion that he cannot get much done. He has started having difficulty getting his recliner down because of the degree of edema in his legs. He is also started having dribbling of urine and urinary incontinence. He does follow with Dr. Almonte for renal calculus and prostatic hypertrophy. He has a known history of COPD, CHF and peripheral vascular disease. Denies any recent fevers. Cough is primarily nonproductive. He was noted to have some wheezing in addition to clinical volume overload. In the emergency room he received 80 mg of IV Lasix, steroids, breathing treatment and some Levaquin. Chest x-ray showed right lower lobe opacity consistent with either pneumonia or pulmonary edema. Back clinical history would be more consistent with edema. White count however is elevated. He is being admitted for further evaluation and treatment. While in the emergency room he was noted to have heart rate into the 40s. He is on carvedilol 25 mg p.o. twice daily. His PCP told him to not take it starting yesterday due to heart rate that was in the 40s at that point in time. History is obtained from review of old records and discussion with him. Again it is a bit challenging to get a clear picture from him. He does report having some home health but says they have not seen him recently. Review of Systems Const: Denies: fever Eyes: Reports: blurry vision (sometimes) ENMT: Denies: throat pain or nasal congestion Card: Reports: edema, lightheadedness and pre-syncope; Denies: chest pain or syncope Resp: Reports: shortness of breath, non-productive cough and wheezing; Denies: coughing up blood GI: Reports: abdominal pain (swelling), diarrhea, constipation and bloating; Denies: nausea or vomiting : Reports: difficulty urinating, urinary frequency, urinary urgency, urinary hesitancy, urinary dribbling and change in urine stream Musc: Reports: back pain and extremity pain (right hip, down leg to ankle not new) Skin/Breast: Reports: itching (ankles), redness, sores (legs) and other (legs leak water) Neuro: Reports: weakness in extremities (right) and difficulty walking (dizzy); Denies: headache Psych: Reports: anxiety; Denies: visual hallucinations Endo: Reports: excessive urination Bharat/Lymph: Reports: easy bruising; Denies: easy bleeding Medications/Allergies Home Medications Medication Instructions Recorded Confirmed Last Taken Type Lantus U-100 Insulin 44 units SUBCUT BEDTIME 06/24/19 06/24/19 06/23/19 21:00 History cholecalciferol (vitamin D3) 2,000 unit PO DAILY 06/24/19 06/24/19 06/23/19 06:00 History [Vitamin D3] furosemide [Lasix] 80 mg PO DAILY 06/24/19 06/24/19 06/23/19 08:00 History liraglutide [Victoza 3-Elias] 1.8 mg SUBCUT DAILY 06/24/19 06/24/19 06/23/19 08:00 History multivitamin 1 tab PO DAILY 06/24/19 06/24/19 06/23/19 08:00 History Allergies Allergy/AdvReac Type Severity Reaction Status Date / Time aspirin Allergy ADR-Nausea Verified 06/22/19 14:27 Additional Medication Information Additional Medication Information: Home Medications Medication Instructions Recorded Confirmed Type potassium chloride 40 meq PO BID #12 tab 04/07/19 06/24/19 Rx tramadol 50 mg PO Q6H PRN #20 tab 05/31/19 06/24/19 Rx apixaban 5 mg tablet 5 mg PO BID 06/22/19 06/24/19 History carvedilol 25 mg tablet 25 mg PO BID 06/22/19 06/24/19 History finasteride 5 mg tablet 5 mg PO QDAY #90 tab 06/22/19 06/24/19 Rx losartan 100 mg tablet 100 mg PO DAILY 06/22/19 06/24/19 History pregabalin 150 mg capsule 150 mg PO BID 06/22/19 06/24/19 History tamsulosin 0.4 mg capsule 0.4 mg PO BEDTIME 06/22/19 06/24/19 History Lantus U-100 Insulin 44 units SUBCUT BEDTIME 06/24/19 06/24/19 History cholecalciferol (vitamin D3) 2,000 unit PO DAILY 06/24/19 06/24/19 History [Vitamin D3] furosemide [Lasix] 80 mg PO DAILY 06/24/19 History liraglutide [Victoza 3-Elias] 1.8 mg SUBCUT DAILY 06/24/19 06/24/19 History multivitamin 1 tab PO DAILY 06/24/19 06/24/19 History PFSH Acute PFSH: Medical History (Updated 06/24/19 @ 07:44 by Nazanin Tovar MD) Atrial fibrillation chronic, on eliquis BPH NOS w/o ur obs/LUTS follows with Almonte Chronic kidney disease stage 2 Congestive heart failure chronic diastolic, last EF preserved CVA (cerebral vascular accident) residual right weakness Diabetes mellitus, type II victoza & lantus Hyperlipidemia Hypertension Obstructive sleep apnea not on treatment by choice Osteoarthritis PVD (peripheral vascular disease) Renal calculus, right follows with Almonte Surgical History No pertinent past surgical history Family History Mother , 87 Diabetes CAD (coronary artery disease) Hypertension Father , 60 No problems noted. Social History Smoking and tobacco status: light tobacco smoker smokeless tobacco Alcohol intake: never Marital status: Single Current occupational status: retired History of recent travel: No Vitals/I&O/Wt Last Vital Signs Temp 98.5 F 06/24/19 04:45 Pulse 51 L 06/24/19 05:24 Resp 22 H 06/24/19 05:24 BP 178/90 06/24/19 05:24 Pulse Ox 96 06/24/19 05:24 Weight last 48 hrs Weight 144.242 kg Physical Exam Const: COMMON NORMALS: oriented x3 and alert HENMT: HEAD & SCALP: normocephalic and atraumatic FACE & SINUS: other (Tobacco staining around his mouth and chin) Eye: COMMON NORMALS: PERRL and EOMs intact bilaterally Neck/C-Spine: COMMON NORMALS: supple GENERAL: Yes other (Large) Resp: COMMON NORMALS: no use of accessory muscles EFFORT & INSPECTION: Yes able to speak in complete sentences AUSCULTATION: wheezes scattered wheezes and diminished lung sounds bilateral in the lower lung mazariegos (Right worse than left) Cardio: COMMON NORMALS: no murmurs RHYTHM: abnormal rhythm irregularly irregular GI: COMMON NORMALS: soft to palpation and non-tender AUSCULTATION: Yes normoactive bowel sounds PALPATION: Yes other (Grossly edematous) : COMMON NORMALS: Yes external exam normal (No significant edema) Extremity: COMMON NORMALS: no joint enlargement GENERAL: Yes edema (4+) and Yes other findings Neuro: COMMON NORMALS: oriented x3, moves all extremities and no sensory deficits noted SENSORIUM/ORIENTATION: Yes alert Psych: ACTIVITY/MOTOR BEHAVIOR: Yes appropriate eye contact SPEECH: Yes excessive and Yes pressured INSIGHT: fair JUDGEMENT: fair Skin: NARRATIVE SKIN EXAM: Patient with chronic venous stasis changes. Some serous drainage from both legs right greater than left. On the left foot the third toe has some desquamation with serosanguineous fluid in an area that looks like it was probably a blister that came off. Toe is erythematous immediately around this but it does not extend beyond that. He has some bruising to his left upper extremity. Data : 06/24/19 05:13 Other Labs: Laboratory Results - last 24 hr 06/24/19 06/24/19 06/24/19 05:13 05:13 05:13 WBC 19.8 H RBC 5.56 H Hgb 16.3 Hct 48.8 MCV 87.8 MCH 29.3 MCHC 33.4 RDW 13.4 Plt Count 228 MPV 11.0 H Neut % (Auto) 78.2 Lymph % (Auto) 14.4 [place] % (Auto) 5.8 Eos % (Auto) 0.7 Baso % (Auto) 0.3 Neut # (Auto) 15.5 H Lymph # (Auto) 2.9 [place] # (Auto) 1.1 H Eos # (Auto) 0.1 Baso # (Auto) 0.1 Nucleated RBC % (auto) 0 Nucleated RBCs # 0.0 PT 14.40 H INR 1.09 Sodium 143 Potassium 4.4 Chloride 103 Carbon Dioxide 26 Anion Gap 18.4 BUN 25 H Creatinine 1.2 GFR Calculation 59.9 L Glucose 225 H Calculated Osmolality 300 H Calcium 9.9 Total Bilirubin 0.7 AST 31 ALT 34 Alkaline Phosphatase 96 Troponin T Baseline 43 NT-Pro-B Natriuret Pep 2582 H Total Protein 6.9 Albumin 4.2 Globulin 2.7 CXR: I personally reviewed and interpreted this imaging study as follows: My impression: Right middle lobe right lower lobe opacity, pulmonary edema A&P Assessment and plan (1) Increasing shortness of breath: I think the primary issue is progressive fluid retention over time. He does have known obstructive sleep apnea but is not on any treatment due to intolerance/choice. He chews tobacco and is a former smoker. He has chronic atrial fibrillation and looks to have developed some bradycardia lately on current doses of carvedilol. This is likely also a contributing factor and may in fact be part of what made him acutely present today. He has no known coronary artery disease. Do have to be keep in mind the possibility of an anginal equivalent. Sounds like he is compliant with his medications. Patient was covered for possibility of pneumonia in the emergency room based on presentation of chest x-ray. Status: Acute Code(s): R06.02 - Shortness of breath (2) Congestive heart failure: Last echocardiogram was done in 2014 at least at our facility. He had poor windows but ejection fraction was felt to be preserved at that point in time. Status: Chronic Qualifiers: Heart failure chronicity: acute on chronic Heart failure type: diastolic Qualified Code(s): I50.33 - Acute on chronic diastolic (congestive) heart failure Code(s): I50.9 - Heart failure, unspecified (3) Hypertension: Poorly controlled Status: Chronic Qualifiers: Hypertension type: other secondary hypertension Qualified Code(s): I15.8 - Other secondary hypertension Code(s): I10 - Essential (primary) hypertension (4) Obstructive sleep apnea: Not treated by choice Status: Chronic Code(s): G47.33 - Obstructive sleep apnea (adult) (pediatric) (5) Atrial fibrillation: Currently with slow ventricular response in a patient on carvedilol Status: Chronic Qualifiers: Atrial fibrillation type: longstanding persistent Qualified Code(s): I48.11 - Longstanding persistent atrial fibrillation Code(s): I48.91 - Unspecified atrial fibrillation (6) Chronic anticoagulation: Eliquis Status: Chronic Code(s): Z79.01 - penitentiary (current) use of anticoagulants (7) Diabetes mellitus, type II: Status: Acute Qualifiers: Diabetes mellitus manager long term care insulin use: with manager long term care use Diabetes mellitus complication status: with neurologic complications Diabetes mellitus complication detail: with polyneuropathy Qualified Code(s): E11.42 - Type 2 diabetes mellitus with diabetic polyneuropathy; Z79.4 - 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 control 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) use of insulin Code(s): E11.9 - Type 2 diabetes mellitus without complications (8) Chronic kidney disease: Status: Chronic Qualifiers: Chronic kidney disease stage: stage 2 (mild) Qualified Code(s): N18.2 - Chronic kidney disease, stage 2 (mild) Code(s): N18.9 - Chronic kidney disease, unspecified (9) BPH NOS w/o ur obs/LUTS: Follows with Suzy, on flomax and finasteride has been prescribed by Dr Almonte though not yet started Status: Chronic Code(s): N40.0 - Benign prostatic hyperplasia without lower urinary tract symptoms (10) Nicotine dependence, chewing tobacco, with other nicotine-induced disorders: Status: Acute Code(s): F17.228 - Nicotine dependence, chewing tobacco, with other nicotine-induced disorders Additional A&P Information Inpatient admission Will switch him to some Bumex and see if he gets any better diuresis Strict I's and O's and daily weights 2 L fluid restriction Continue losartan Hold carvedilol currently with plan to resume at a quarter of the previous dose tomorrow Telemetry monitoring Serial cardiac enzymes and EKGs I have a feeling a repeat echocardiogram is going to also show poor echogenic windows but he has not had an echocardiogram that I can tell for quite some time. Order has been placed. Follow-up official chest x-ray report Blood cultures were collected in the emergency room Check urinalysis Received a dose of Levaquin in the emergency room, will transition to doxycycline As needed breathing treatments Hold further steroids currently given history of diabetes Continue Lantus, add sliding scale insulin, Victoza currently held is not available from his home supply Continue home Eliquis which will provide appropriate DVT prophylaxis Continue home Flomax and will go on and start finasteride while here Add Neosporin to wound on left third toe Bedrest currently with bedside commode Fall precautions Once clinically improved would probably benefit from PT evaluation given report of occasional falls lately due to dizziness which I suspect is secondary to bradycardia plus or minus hypertension Supportive care otherwise Reviewed current plan of care with patient and gave him an opportunity to ask questions. Explained that we were going to see if a different diuretic might help. I reviewed low-salt diet, fluid restrictions, daily weights Attestations Medical Necessity Statement*: Anticipated stay greater than 2 midnights in this patient with significant volume overload, increasing shortness of breath and bradycardia. Plans are as noted above. He has multiple comorbid conditions contributing to presentation as well as adjustments to several medications that will require close monitoring for tolerance and affect. Coding Level of Care Code Acute Residence Director for [facility] Fwd Diagnoses Increasing shortness of breath R06.02 Congestive heart failure I50.33 Heart failure chronicity: acute on chronic Heart failure type: diastolic Hypertension I15.8 Hypertension type: other secondary hypertension Obstructive sleep apnea G47.33 Atrial fibrillation I48.11 Atrial fibrillation type: longstanding persistent Chronic anticoagulation Z79.01 Diabetes mellitus, type II E11.42; Z79.4 Diabetes mellitus intermediate insulin use: with manager long term care use Diabetes mellitus complication status: with neurologic complications Diabetes mellitus complication detail: with polyneuropathy Chronic kidney disease N18.2 Chronic kidney disease stage: stage 2 (mild) BPH NOS w/o ur obs/LUTS N40.0 Nicotine dependence, chewing tobacco, with other nicotine-induced disorders F17.228
[2019-06-24 05:47] LABS: Troponin(5th) Baseline 43 ng/mL (0-15)
[2019-06-24 05:50] LABS: Alanine Aminotransferase 34 U/L (0-41); Albumin Level 4.2 g/dL (3.5-5.2); Alkaline Phosphatase 96 IU/L (40-130); Anion Gap 18.4 (5-19); Aspartate Amino Transferase 31 U/L (0-40); Blood Urea Nitrogen 25 mg/dL (8-23); Calcium 9.9 mg/dL (8.5-10.5); Carbon Dioxide 26 mmol/L (22-29); Chloride 103 mmol/L (98-107); Globulin 2.7 g/dL (1.3-4.6); Glomerular Filtration Rate 59.9 mL/min (90-130); Glucose 225 mg/dL (65-115); NT Pro B Type Natriuretic Pept 2582 pg/mL (0-125); Osmolality Calculated 300 mOsm/kg (285-295); Potassium 4.4 mmol/L (3.5-5.1); Sodium 143 mmol/L (136-145); Total Bilirubin 0.7 mg/dL (0.15-1.2); Total Protein 6.9 g/dL (6.6-8.7)
[2019-06-24] MEDS: levofloxacin-dextrose 5 % 750 MG/150 ML PREMIX 150 MG IV (06:27)
--- NOTE | 2019-06-24 06:43 | ECG_ITS ---
Measurements Intervals [place] Rate: 53 P: IA: 0 QRS: -67 QRSD: 142 T: 111 QT: 553 QTc: 521 ATRIAL FIBRILLATION WITH SLOW VENTRICULAR RESPONSE LEFT AXIS DEVIATION [QRS AXIS < -30] LEFT BUNDLE BRANCH BLOCK PROLONGED QT INTERVAL CRITICAL TEST RESULT Compared to ECG 05/04/2019 15:36:31 Left-axis deviation now present Left bundle-branch block now present Prolonged QT interval now present Right bundle-branch block no longer present Electronically Signed On 06-25-2019 9:50:57 CDT by Misty Nickerson M.D. [email or web address]
[2019-06-24 07:56] LABS: Troponin 5 2HR 48.26 ng/mL (0-15); Troponin 5 2HR Delta 5.26 ABS# (0-10)
--- NOTE | 2019-06-24 08:00 | USCV_ITS ---
Giles Guillaume Age: 69 Gender: M : 1950 Exam Date: 06/24/2019 08:13 Ordering Phys: Nazanin Tovar MD Technologist: Oh Serrano Exam Location: [facility] [place] Indication: Worsening CHF BP: 213 / 108 HR: 49 Rhythm: Sinus Technical Quality: Technically difficult study MEASUREMENTS (Male / Female) Normal Values 2D ECHO LV Diastolic Diameter PLAX 5.7 cm 4.2 - 5.9 / 3.9 - 5.3 cm LV Systolic Diameter PLAX 5.0 cm IVS Diastolic Thickness 1.2 cm 0.6 - 1.0 / 0.6 - 0.9 cm IVS Systolic Thickness 1.5 cm LVPW Diastolic Thickness 1.1 cm 0.6 - 1.0 / 0.6 - 0.9 cm LVPW Systolic Thickness 1.2 cm LVOT Diameter 2.0 cm LV Ejection Fraction 2D Teich 25.4 % LV Ejection Fraction MOD 2C 35.1 % LV Ejection Fraction 2C AL 33.7 % LA Diameter 5.0 cm LA Width 4.9 cm LA Height 5.7 cm RA Width 4.1 cm RA Height 5.3 cm Aorta at Sinotubular Diameter 2.3 cm M-MODE LV Diastolic Diameter MM 6.0 cm 4.2 - 5.9 / 3.9 - 5.3 cm LV Systolic Diameter MM 4.7 cm LV Ejection Fraction MM Teich 44.6 % IVS Diastolic Thickness MM 0.9 cm 0.6 - 1.0 / 0.6 - 0.9 cm IVS Systolic Thickness MM 1.8 cm LVPW Diastolic Thickness MM 1.2 cm 0.6 - 1.0 / 0.6 - 0.9 cm LVPW Systolic Thickness MM 1.4 cm RV Diastolic Diameter MM 0.9 cm Aortic Annulus Diameter 3.7 cm LA Ao Ratio MM 1.4 MV E Point Septal Separation 1.0 cm DOPPLER AV Peak Velocity 111.0 cm/s LVOT Peak Velocity 73.0 cm/s AV Area Cont Eq vti 2.2 cm squared AV Area Cont Eq pk 2.2 cm squared MV Area PHT 5.1 cm squared Mitral E to A Ratio 1.5 MV E' Velocity 94.0 cm/s Mitral E to LV E' Septal Ratio 52.1 TR Peak Velocity 105.0 cm/s TR Peak Gradient 4.4 mmHg TV Peak E Velocity 94.0 cm/s Right Atrial Pressure 3.0 mmHg Pulmonary Artery Systolic Pressu 7.4 mmHg FINDINGS Left Ventricle Left ventricular cavity not well visualized. Severely decreased left ventricular systolic function. This study is inadequate for estimation of regional wall motion abnormality. Rhythm precludes evaluation of diastolic function. Right Ventricle Probably normal right ventricular size and systolic function. Right Atrium Right atrium not well visualized. Normal right atrial size. Left Atrium Normal left atrial size. Mitral Valve Mitral valve not well visualized. Aortic Valve Aortic valve not well visualized. No aortic valve stenosis. Tricuspid Valve Tricuspid valve not well visualized. Pulmonic Valve Pulmonic valve not well visualized. Pericardium No pericardial effusion. Aorta Normal size aortic root and proximal ascending aorta. CONCLUSIONS 1. This is a technically difficult study. 2. Severely decreased left ventricular systolic function. This study is inadequate for estimation of regional wall motion abnormality. 3. Probably normal right ventricular size and systolic function. 4. When compared to previous echocardiogram dated 01/24/2015, left ventricle systolic function has markedly decreased. Misty Nickerson MD (Electronically Signed) Final Date: 24 June 2019 14:32 S
--- NOTE | 2019-06-24 09:02 | PM.PN ---
Subjective Subjective: Interval history: Giles reports he is doing about the same as when he came in. He wants to get all of his fluid off. He denies any cough or chills but has been short of breath. Medications: Reviewed: Yes Vitals/I&O/Wt Last Vital Signs Temp 98.1 F 06/24/19 08:00 Pulse 63 06/24/19 08:00 Resp 20 H 06/24/19 08:00 BP 213/108 06/24/19 08:00 Pulse Ox 94 06/24/19 08:00 Weight last 48 hrs Weight 144.242 kg Physical Exam Narrative: EXAM NARRATIVE: General exam is a white male in no apparent distress Cardiovascular bradycardic, regular without murmur Lungs clear but with diminished breath sounds at the bases Abdomen is soft, obese Extremities 2+ edema, all the way to the thighs and into the back. No cyanosis or clubbing Data : 06/24/19 05:13 06/24/19 05:13 Micro: Microbiology 06/24/19 06:09 Blood Culture - Preliminary Blood SPECIMEN COLLECTED 06/24/19 06:05 Blood Culture - Preliminary Blood SPECIMEN COLLECTED A&P Assessment and plan (1) Increasing shortness of breath: Appears to be secondary to acute diastolic heart failure. Secondary cause could be right lower lobe pneumonia, although this is less certain. White blood cell count is elevated, but he has had not had any chills, cough, fever. Bradycardia has also been noted which could be contributing. Diuresis has been initiated with Bumex 1 mg IV every 12 hours Status: Acute Code(s): R06.02 - Shortness of breath (2) Congestive heart failure: Bumex IV as noted Close follow-up of electrolytes Echocardiogram to be done Status: Chronic Qualifiers: Heart failure chronicity: acute on chronic Heart failure type: diastolic Qualified Code(s): I50.33 - Acute on chronic diastolic (congestive) heart failure Code(s): I50.9 - Heart failure, unspecified (3) Hypertension: Poorly controlled Add Imdur 30 mg p.o. daily Continue losartan Lower dose of carvedilol has been ordered Status: Chronic Qualifiers: Hypertension type: other secondary hypertension Qualified Code(s): I15.8 - Other secondary hypertension Code(s): I10 - Essential (primary) hypertension (4) Obstructive sleep apnea: Refuses treatment Status: Chronic Code(s): G47.33 - Obstructive sleep apnea (adult) (pediatric) (5) Atrial fibrillation: Secondary to marked bradycardia carvedilol dose has been lowered from 25 to 6.25 mg twice daily. Follow heart rate closely. 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 (7) Diabetes mellitus, type II: Sliding scale insulin, Lantus Status: Acute Qualifiers: Diabetes mellitus exterminator termite insulin use: with exterminator termite use Diabetes mellitus complication status: with neurologic complications Diabetes mellitus complication detail: with polyneuropathy Qualified Code(s): E11.42 - Type 2 diabetes mellitus with diabetic polyneuropathy; Z79.4 - 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 of 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 Code(s): E11.9 - Type 2 diabetes mellitus without complications (8) Chronic kidney disease: Follow creatinine closely Status: Chronic Qualifiers: Chronic kidney disease stage: stage 2 (mild) Qualified Code(s): N18.2 - Chronic kidney disease, stage 2 (mild) Code(s): N18.9 - Chronic kidney disease, unspecified (9) BPH NOS w/o ur obs/LUTS: Follows with Suzy, on flomax and finasteride has been prescribed by Dr Almonte though not yet started Status: Chronic Code(s): N40.0 - Benign prostatic hyperplasia without lower urinary tract symptoms (10) Nicotine dependence, chewing tobacco, with other nicotine-induced disorders: Counseled Status: Acute Code(s): F17.228 - Nicotine dependence, chewing tobacco, with other nicotine-induced disorders Additional A&P Information Possible right lower lobe pneumonia, with abnormal chest x-ray and elevated white blood cell count. He does not have a significant cough or sputum production. Continue Levaquin IV for now. Constellation of findings could also be consistent with CHF with small right effusion. Blood cultures obtained. Will order sputum cultures if he develops a cough that is productive BPH. Continue Flomax Eliquis will suffice for DVT prophylaxis Full code Attestations Medical Necessity Statement*: Needs continued hospitalization for further diuresis with IV Bumex secondary to acute diastolic heart failure. Coding Level of Care Code Acute Ammunition Components Inspector for Chg Fwd Diagnoses Increasing shortness of breath R06.02 Congestive heart failure I50.33 Heart failure chronicity: acute on chronic Heart failure type: diastolic Hypertension I15.8 Hypertension type: other secondary hypertension Obstructive sleep apnea G47.33 Atrial fibrillation I48.11 Atrial fibrillation type: longstanding persistent Chronic anticoagulation Z79.01 Diabetes mellitus, type II E11.42; Z79.4 Diabetes mellitus jail insulin use: with exterminator termite use Diabetes mellitus complication status: with neurologic complications Diabetes mellitus complication detail: with polyneuropathy Chronic kidney disease N18.2 Chronic kidney disease stage: stage 2 (mild) BPH NOS w/o ur obs/LUTS N40.0 Nicotine dependence, chewing tobacco, with other nicotine-induced disorders F17.228
--- NOTE | 2019-06-24 09:34 | PC.CHAP ---
Pastoral Care Encounter/Spiritual Assessment Type of Contact [] Declined flame burner visit [] Patient/Family/Request visit [] Outpatient visit [] Follow-up visit [] Physician referral [] Code/Alert [x] Routine visit [] Staff referral [] Actively dying [] Patient sleeping [] Family support [] [] Out of room [] Palliative care [] [] Receiving care in room [] Pre-surgical visit [] Trauma [] Long length of stay [] ICU visit [] Other: Relational/Emotional Strength [] Patient feels connected with others/family/visitors/staff [] Distress [] Loneliness/isolation [] Abandonment Spirituality of Patient [x] Person of Christina [] Attends Scientology of their Christina [x] Believes in Prayer [] Reads Bible or Baptism materials [] There are Spiritual issues to be addressed Motor Runner Interventions [x] Prayer [] Active listening [] Non-anxious presence [] Spiritual/emotional support [] Crisis/trauma care [] Spiritual counseling [] Bereavement support [] Provided bereavement packet [] Provided Bible/devotional materials [] Provided toy/stuffed animal, coloring book to patient or family member [] Provided Communion [] Anointing/Beaver [] Salvation [] Completed spiritual assessment [] Other: Impact on Illness or Injury [] Angry [] Fearful [] Anxious [] Often cries [] Exhaustion [] Unable to work [] Unable to attend yarsanism [] Unable to walk/stand [] Unable to read [] Unable to drive [] Unable to eat/drink [] Unable to sleep [] Unable to be with family [] Patient intubated [] Other: Summary Patient anxious about world issues. Patient states his care is good. Physically he is feeling better. Time spent with patient 25min
[2019-06-24] MEDS: finasteride 5 mg Tablet PO (10:40)
[2019-06-24] MEDS: losartan 50 mg Tablet 100 MG PO (10:41)
[2019-06-24] MEDS: isosorbide mononitrate ER 30 mg Tablet PO (10:41)
--- NOTE | 2019-06-24 10:43 | ECG_ITS ---
Measurements Intervals Leiter Rate: 43 P: OR: 0 QRS: -51 QRSD: 150 T: 103 QT: 519 QTc: 443 ATRIAL FIBRILLATION WITH SLOW VENTRICULAR RESPONSE LEFT AXIS DEVIATION [QRS AXIS < -30] LEFT BUNDLE BRANCH BLOCK [120+ ms QRS DURATION, 80+ ms Q/S IN V1/V2, 85+ ms R IN I/aVL/V5/V6] Compared to ECG 05/04/2019 15:36:31 Left-axis deviation now present Left bundle-branch block now present Right bundle-branch block no longer present Electronically Signed On 06-25-2019 9:51:37 CDT by Misty Nickerson M.D. [email or web address]
[2019-06-24] MEDS: multivitamin therapeutic Tablet 1 TAB PO (10:44)
[2019-06-24] MEDS: apixaban 5 mg Tablet PO ×2 (10:44→17:29)
[2019-06-24] MEDS: pregabalin 150 mg Capsule PO ×2 (10:44→17:29)
[2019-06-24 11:17] LABS: Glucose Point of Care 276 mg/dL (70-110)
[2019-06-24 11:35] LABS: Troponin 5 6HR 49.77 ng/mL (0-15); Troponin 5 6HR Delta 6.77 ng/L (0-12)
[2019-06-24] MEDS: bumetanide 0.25 mg/mL SDV 10 mL 1 MG IV (13:51)
[2019-06-24] MEDS: amlodipine 5 mg Tablet PO (13:52)
[2019-06-24] MEDS: neomycin-poly-bacitracin oint 28 gm 1 APPLIC TOPICAL (13:52)
[2019-06-24 14:27] LABS: Add Urine Microscopic? YES; Bilirubin Urine Neg (NEGATIVE); Blood Urine 3+ (Negative); Glucose Urine UA Norm (Normal); Ketones Urine Negative (Negative); Leukocyte Esterase Urine Negative (Negative); Nitrate Urine Negative (Negative); Protein Urine 2+ (Negative); Specific Gravity, Urine 1.015 (1.005-1.030); Sulfosalicylic Acid Urine Negative; Urine Appearance Clear (CLEAR); Urine Color Yellow (Yellow); Urobilinogen Urine Norm (Negative); pH Urine 5 (5-7)
[2019-06-24 14:30] LABS: Add Urine Culture? Yes; Bacteria Urine 1+; RBC Urine 25-40 /hpf (0-2); Squamous Epithelial Cell Urine 0-4 (0-5); WBC Urine 0-4 /hpf (0-5)
[2019-06-24] MEDS: TRAMadol 50 mg Tablet PO (16:25)
[2019-06-24 16:46] LABS: Glucose Point of Care 130 mg/dL (70-110)
[2019-06-24] MEDS: cloNIDine 0.1 mg Tablet PO (17:34)
--- NOTE | 2019-06-24 17:58 | PM.CONSULT ---
Providers/Reason For Consult Consulting Physican/Specialty*: Dr. Nickerson Reason for Consult*: Decompensated CHF with drop in LV function Attending Physician: Demetrio Hurtado MD Primary Care Provider: Trent [place] History of Present Illness History of Present Illness Giles Guillaume is a 69 year old male with known history of COPD, CHF, atrial fibrillation, DM-2, CKD, morbid obesity, possibly SACHIN/OHS not on CPAP/Bipap and unspecified peripheral vascular disease who presented to the emergency room with shortness of breath. He has had progressively worsening shortness of breath and edema for last several months with orthopnea and PND probably for last few days. He has had weight gain of around 15 pounds. 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 He has fluid that is extended up into his belly,sides of his chest and armpits being swollen but has not had any scrotal edema. He denies chest pain but has not slept well in last 2-3 days. He is also complaining of having dribbling of urine, weak stream and urinary incontinence. He does follow with Dr. Almonte for renal calculus and prostatic hypertrophy and complains of hematuria and cystoscopy recently. He has had previous stress test, echo and what sounds like LHC few years back without any intervention . Chest x-ray showed right lower lobe opacity consistent with either pneumonia or pulmonary edema. While in the emergency room, he was noted to have heart rate into the 40s while on carvedilol 25 mg p.o. twice daily. Echo showed drop in LVEF on a TDS study. I have been asked to evaluate the patient and assisst in further management. Review of Systems Const: Denies: fever or chills Eyes: Denies: change in vision ENMT: Denies: nasal discharge or nasal congestion Card: Reports: swelling of feet/ankles, shortness of breath on exertion and shortness of breath when lying down; Denies: chest pain or lightheadedness Resp: Reports: shortness of breath and productive cough; Denies: wheezing, pain on inspiration or coughing up blood GI: Reports: abdominal pain; Denies: nausea, vomiting, vomiting blood or blood in stool : Reports: urinary dribbling, change in urine stream and blood in urine Musc: Reports: back pain Neuro: Denies: weakness in extremities Bharat/Lymph: Denies: petechiae or purpura Meds/Allergies Home Medications and Allergies Home Medications Medication Instructions Recorded Confirmed Type potassium chloride 40 meq PO BID #12 tab 04/07/19 06/24/19 Rx tramadol 50 mg PO Q6H PRN #20 tab 05/31/19 06/24/19 Rx apixaban 5 mg tablet 5 mg PO BID 06/22/19 06/24/19 History carvedilol 25 mg tablet 25 mg PO BID 06/22/19 06/24/19 History finasteride 5 mg tablet 5 mg PO QDAY #90 tab 06/22/19 06/24/19 Rx losartan 100 mg tablet 100 mg PO DAILY 06/22/19 06/24/19 History pregabalin 150 mg capsule 150 mg PO BID 06/22/19 06/24/19 History tamsulosin 0.4 mg capsule 0.4 mg PO BEDTIME 06/22/19 06/24/19 History Lantus U-100 Insulin 44 units SUBCUT BEDTIME 06/24/19 06/24/19 History cholecalciferol (vitamin D3) 2,000 unit PO DAILY 06/24/19 06/24/19 History [Vitamin D3] clonidine 0.2 mg TRANSDERMAL Q7D 06/24/19 06/24/19 History furosemide [Lasix] 80 mg PO DAILY 06/24/19 06/24/19 History liraglutide [Victoza 3-Elias] 1.8 mg SUBCUT DAILY 06/24/19 06/24/19 History multivitamin 1 tab PO DAILY 06/24/19 06/24/19 History Allergies Allergy/AdvReac Type Severity Reaction Status Date / Time aspirin Allergy ADR-Nausea Verified 06/22/19 14:27 Current Medications Current Medications Generic Name Dose Route Start Last Admin Trade Name Freq PRN Reason Stop Dose Admin Albuterol/Ipratropium 3 ml 06/24/19 09:00 06/24/19 10:20 Duoneb INHALATION 3 ml Q6H.RESPIRATORY PRN Administration SHORTNESS OF BREATH Amlodipine Besylate 5 mg 06/24/19 13:30 06/24/19 13:52 Norvasc PO 5 mg DAILY LC Administration Apixaban 5 mg 06/24/19 09:00 06/24/19 17:29 Eliquis PO 5 mg BID LC Administration Bumetanide 1 mg 06/24/19 15:00 06/24/19 13:51 Bumex IV 1 mg Q12H LC Administration Clonidine HCl 0.1 mg 06/24/19 18:00 06/24/19 17:34 Catapres PO 0.1 mg BID LC Administration Finasteride 5 mg 06/24/19 09:00 06/24/19 10:40 Proscar PO 5 mg DAILY LC Administration Insulin Aspart 0 unit 06/24/19 08:00 06/24/19 17:35 Novolog SUBCUT Not Given TIDWM [facility] Protocol Isosorbide Mononitrate 30 mg 06/24/19 09:00 06/24/19 10:41 Imdur PO 30 mg DAILY LC Administration Losartan Potassium 100 mg 06/24/19 09:00 06/24/19 10:41 Cozaar PO 100 mg DAILY LC Administration Multivitamins Therapeutic 1 tab 06/24/19 09:00 06/24/19 10:44 Multivitamin Tab PO 1 tab DAILY LC Administration Neomycin/Polymyxin/Bacitracin 1 applic 06/24/19 09:00 06/24/19 13:52 Neosporin Oint Tube TOPICAL 1 applic BID LC Administration Potassium Chloride 40 meq 06/24/19 09:00 06/24/19 10:43 Klor-Con 10 PO 40 meq DAILY LC Administration Tramadol HCl 50 mg 06/24/19 08:20 06/24/19 16:25 Ultram PO 50 mg Q6H PRN Administration MODERATE TO SEVERE PAIN PFSH Acute PFSH: Medical History Atrial fibrillation chronic, on eliquis BPH NOS w/o ur obs/LUTS follows with Almonte Chronic kidney disease stage 2 Congestive heart failure chronic diastolic, last EF preserved CVA (cerebral vascular accident) residual right weakness Diabetes mellitus, type II victoza & lantus Hyperlipidemia Hypertension Obstructive sleep apnea not on treatment by choice Osteoarthritis PVD (peripheral vascular disease) Renal calculus, right follows with Almonte Surgical History No pertinent past surgical history Family History Mother , 87 Diabetes CAD (coronary artery disease) Hypertension Father , 60 No problems noted. Social History Smoking and tobacco status: light tobacco smoker smokeless tobacco Alcohol intake: never Marital status: Single Current occupational status: retired History of recent travel: No Vitals/I&O/Wt Last Vital Signs Temp 98.7 F 06/24/19 16:00 Pulse 50 L 06/24/19 16:00 Resp 20 H 06/24/19 16:00 BP 186/94 06/24/19 17:34 Pulse Ox 96 06/24/19 16:00 06/24/19 06/24/19 06/24/19 06:59 14:59 22:59 Intake Total 360 / 360 240 / 600 Balance 360 / 360 240 / 600 Weight last 48 hrs Weight 318 lb Physical Exam Const: COMMON NORMALS: no apparent distress, oriented x3 and alert GENERAL APPEARANCE: cooperative, comfortable and well kempt HENMT: COMMON NORMALS: hearing grossly normal bilaterally, external ears normal and moist oral mucous membranes EXTERNAL EAR: Yes external ears normal Neck/C-Spine: COMMON NORMALS: no JVD (appreciated) Resp: COMMON NORMALS: clear to auscultation bilaterally (except at bilateral bases) AUSCULTATION: clear to auscultation bilaterally (except at bilateral bases), no crackles, no rales, no rhonchi and no wheezes Cardio: COMMON NORMALS: no JVD (appreciated), regular rhythm, S1 normal heart sound, S2 normal heart sound and peripheral pulses 2+ throughout PALPATION: normal PMI RATE: bradycardic RHYTHM: regular rhythm HEART SOUNDS: S1 normal, S2 normal, no click, no gallops and no murmurs BRUITS: no carotid bruits PERIPHERAL PULSES: pulses 2+ throughout, radial pulses present, posterior tibial pulses present and dorsalis pedis pulses present Extremity: GENERAL: No clubbing, No cyanosis, Yes edema (2+ edema bilaterally in legs upto thighs) and No pallor Neuro: COMMON NORMALS: oriented x3, CN's II-XII intact bilaterally and no focal motor deficits SENSORIUM/ORIENTATION: Yes alert Psych: COMMON NORMALS: thought process normal and speech normal APPEARANCE: Yes well kempt SPEECH: Yes normal speech THOUGHT PROCESS: normal thought process Data Micro: Micro: Microbiology 06/24/19 06:09 Blood Culture - Pr eliminary Blood SPECIMEN [facility] IS[facility] 06/24/19 06:05 Blood Culture - Pr eliminary Blood SPECIMEN [facility] A&P Assessment and plan (1) Congestive heart failure: There is drop in LV function from normal to severely depressed. TDS study. -repeat study with USE. -Follow up on records from [place]. Status: Chronic Qualifiers: Heart failure chronicity: acute on chronic Heart failure type: diastolic Qualified Code(s): I50.33 - Acute on chronic diastolic (congestive) heart failure Code(s): I50.9 - Heart failure, unspecified (2) Atrial fibrillation: Status: Chronic Qualifiers: Atrial fibrillation type: longstanding persistent Qualified Code(s): I48.11 - Longstanding persistent atrial fibrillation Code(s): I48.91 - Unspecified atrial fibrillation (3) Bradycardia: Prior EKG with atrial fibrillation with RBBB and EKG now with atrial fibrillation with SVR. LBBB. -coreg held. Plan to resume tomorrow. Status: Acute Code(s): R00.1 - Bradycardia, unspecified (4) Hypertension: BP elevated. Continue to closely monitor. Status: Chronic Qualifiers: Hypertension type: other secondary hypertension Qualified Code(s): I15.8 - Other secondary hypertension Code(s): I10 - Essential (primary) hypertension (5) Hyperlipidemia: Status: Chronic Qualifiers: Hyperlipidemia type: unspecified Qualified Code(s): E78.5 - Hyperlipidemia, unspecified Code(s): E78.5 - Hyperlipidemia, unspecified (6) Obesity: Status: Chronic Qualifiers: Obesity type: unspecified obesity type Code(s): E66.9 - Obesity, unspecified (7) Diabetes mellitus, type II: Status: Acute Qualifiers: Diabetes mellitus adjunct faculty for medical terminology insulin use: with adjunct faculty for medical terminology use Diabetes mellitus complication status: with neurologic complications Diabetes mellitus complication detail: with polyneuropathy Qualified Code(s): E11.42 - Type 2 diabetes mellitus with diabetic polyneuropathy; Z79.4 - senior care (current) use of insulin Code(s): E11.9 - Type 2 diabetes mellitus without complications (8) Nicotine dependence, chewing tobacco, with other nicotine-induced disorders: Status: Acute Code(s): F17.228 - Nicotine dependence, chewing tobacco, with other nicotine-induced disorders Additional A&P Information CKD stage 3 Thank you for allowing me to participate in patient's care. Please feel free to call with questions or concerns. Coding Level of Care Code Acute Metallurgy Laboratory Technician for Yris Tee Diagnoses Congestive heart failure I50.33 Heart failure chronicity: acute on chronic Heart failure type: diastolic Atrial fibrillation I48.11 Atrial fibrillation type: longstanding persistent Bradycardia R00.1 Hypertension I15.8 Hypertension type: other secondary hypertension Hyperlipidemia E78.5 Hyperlipidemia type: unspecified Obesity E66.9 Obesity type: unspecified obesity type Diabetes mellitus, type II E11.42; Z79.4 Diabetes mellitus mcc insulin use: with adjunct faculty for medical terminology use Diabetes mellitus complication status: with neurologic complications Diabetes mellitus complication detail: with polyneuropathy Nicotine dependence, chewing tobacco, with other nicotine-induced disorders F17.552
[2019-06-24] MEDS: hyDRALAzine 20 mg/mL INJ 1 mL 10 MG IVP (18:38)
[2019-06-24 21:06] LABS: Glucose Point of Care 186 mg/dL (70-110)
[2019-06-24] MEDS: tamsulosin 0.4 mg Capsule PO (21:25)
[2019-06-24] MEDS: insulin glargine 100 units/1 mL 20 UNIT SUBCUT (21:25)
[2019-06-25] VITALS (12 sets, daily range): BP systolic 156–171; BP diastolic 70–91; PULSE 42–103; RESP 7–21; TEMP 36.7–36.8; O2SAT 93–97; BMI 41.9
[2019-06-25] MEDS: bumetanide 0.25 mg/mL SDV 10 mL 1 MG IV (03:58)
[2019-06-25 05:17] LABS: Anion Gap 14.7 (5-19); Blood Urea Nitrogen 24 mg/dL (8-23); Calcium 9.5 mg/dL (8.5-10.5); Carbon Dioxide 30 mmol/L (22-29); Chloride 98 mmol/L (98-107); Glomerular Filtration Rate 54.6 mL/min (90-130); Glucose 185 mg/dL (65-115); Magnesium 2.2 mg/dL (1.7-2.3); Osmolality Calculated 290 mOsm/kg (285-295); Phosphorus 4.4 mg/dL (2.5-4.5); Potassium 3.7 mmol/L (3.5-5.1); Sodium 139 mmol/L (136-145)
[2019-06-25] MEDS: hyDRALAzine 20 mg/mL INJ 1 mL 10 MG IVP (05:34)
[2019-06-25] MEDS: levofloxacin-dextrose 5 % 750 MG/150 ML PREMIX 150 MG IV (05:35)
[2019-06-25] MEDS: sodium chloride 0.9% 100 ML 10 ML (05:53)
[2019-06-25 06:42] LABS: Glucose Point of Care 208 mg/dL (70-110)
[2019-06-25 06:51] LABS: Basophils # 0.1 10^3/uL (0.0-0.1); Basophils % 0.4 %; Eosinophils # 0.1 10^3/uL (0.0-0.8); Eosinophils % 0.9 %; Hematocrit 42.5 % (42.0-52.0); Hemoglobin 13.7 g/dL (11.7-16.6); Lymphocytes # 2.2 10^3/uL (0.8-4.8); Lymphocytes % 16.2 %; Mean Corpuscular HGB Conc 32.2 g/dL (30.0-36.0); Mean Corpuscular Hemoglobin 28.5 pg (28.0-34.0); Mean Corpuscular Volume 88.5 fL (80-94); Mean Platelet Volume 11.7 fL (7.4-10.4); Monocytes % 7.5 %; Neutrophils # 10.1 10^3/uL (1.8-7.7); Neutrophils % 74.4 %; Nucleated Red Blood Cells % 0 %; Platelet Count 193 10^3/cmm (130-400); Red Cell Distribution Width 13.3 % (12.1-15.1); White Blood Count 13.5 10^3/uL (4.0-10.0)
[2019-06-25] MEDS: ipratropium-albuterol 3 mL Neb INHALATION (07:36)
[2019-06-25] MEDS: losartan 50 mg Tablet 100 MG PO (08:46)
[2019-06-25] MEDS: multivitamin therapeutic Tablet 1 TAB PO (08:46)
[2019-06-25] MEDS: finasteride 5 mg Tablet PO (08:46)
[2019-06-25] MEDS: cloNIDine 0.1 mg Tablet PO ×2 (08:47→17:10)
[2019-06-25] MEDS: apixaban 5 mg Tablet PO ×2 (08:47→17:12)
[2019-06-25] MEDS: isosorbide mononitrate ER 30 mg Tablet PO (08:47)
[2019-06-25] MEDS: pregabalin 150 mg Capsule PO ×2 (08:47→17:10)
[2019-06-25] MEDS: neomycin-poly-bacitracin oint 28 gm 1 APPLIC TOPICAL ×2 (08:52→17:11)
[2019-06-25] MEDS: amlodipine 10 mg Tablet PO (08:52)
--- NOTE | 2019-06-25 08:53 | PM.PN ---
Subjective Subjective: Interval history: Giles feels like he is still very swollen. Still some shortness of breath. No chest pain. Medications: Reviewed: Yes Vitals/I&O/Wt Last Vital Signs Temp 98.3 F 06/25/19 03:56 Pulse 68 06/25/19 07:39 Resp 16 06/25/19 07:37 BP 157/70 06/25/19 08:47 Pulse Ox 94 06/25/19 07:37 06/24/19 06/25/19 06/25/19 22:59 06:59 14:59 Intake Total 300 / 660 60 / 720 Balance 300 / 660 60 / 720 Weight last 48 hrs Weight 144.242 kg Weight 144.242 kg Physical Exam Narrative: EXAM NARRATIVE: General exam is a white male in no apparent distress. Telemetry demonstrates significant bradycardia through the night and tag and label cutter has discontinued carvedilol completely. I/O's not done as patient would not use urinal Cardiovascular bradycardic, regular without murmur Lungs clear but with diminished breath sounds at the bases Abdomen is soft, obese Extremities 2+ edema, all the way to the thighs and into the back. No cyanosis or clubbing Data : 06/25/19 04:17 06/25/19 04:17 Micro: Microbiology 06/24/19 06:09 Blood Culture - Preliminary Blood NEGATIVE TO DATE 06/24/19 06:05 Blood Culture - Preliminary Blood NEGATIVE TO DATE A&P Assessment and plan (1) Increasing shortness of breath: Appears to be secondary to acute diastolic heart failure. Secondary cause could be right lower lobe pneumonia, although this is less certain. White blood cell count is elevated, but he has had not had any chills, cough, fever. Bradycardia has persisted. Coreg has been discontinued. Diuresis with Bumex 1 mg IV every 12 hours. Ins and outs have not been completed. Discussed with nursing and they will provide him with a bedside commode. Cardiology evaluating as well Change fluid restriction to 1500 Status: Acute Code(s): R06.02 - Shortness of breath (2) Congestive heart failure: Bumex IV as noted Echocardiogram demonstrates significantly low EF. Cardiology has been consulted. Consistent with acute systolic heart failure. Status: Chronic Qualifiers: Heart failure chronicity: acute on chronic Heart failure type: diastolic Qualified Code(s): I50.33 - Acute on chronic diastolic (congestive) heart failure Code(s): I50.9 - Heart failure, unspecified (3) Hypertension: Poorly controlled Imdur has been added. Norvasc added. Continue losartan Hydralazine as needed Carvedilol discontinued secondary to bradycardia Status: Chronic Qualifiers: Hypertension type: other secondary hypertension Qualified Code(s): I15.8 - Other secondary hypertension Code(s): I10 - Essential (primary) hypertension (4) Obstructive sleep apnea: Refuses treatment Status: Chronic Code(s): G47.33 - Obstructive sleep apnea (adult) (pediatric) (5) Atrial fibrillation: Carvedilol will be discontinued. Still significantly bradycardic Status: Chronic Qualifiers: Atrial fibrillation type: longstanding persistent Qualified Code(s): I48.11 - Longstanding persistent atrial fibrillation Code(s): I48.91 - Unspecified atrial fibrillation (6) Chronic anticoagulation: Eliquis Status: Chronic Code(s): Z79.01 - superintendent terminal (current) use of anticoagulants (7) Diabetes mellitus, type II: Sliding scale insulin, Lantus Status: Acute Qualifiers: Diabetes mellitus extermination inspector insulin use: with skilled nursing use Diabetes mellitus complication status: with neurologic complications Diabetes mellitus complication detail: with polyneuropathy Qualified Code(s): E11.42 - Type 2 diabetes mellitus with diabetic polyneuropathy; Z79.4 - [facility] (current) use of insulin Code(s): E11.9 - Type 2 diabetes mellitus without complications (8) Chronic kidney disease: Follow creatinine closely Status: Chronic Qualifiers: Chronic kidney disease stage: stage 2 (mild) Qualified Code(s): N18.2 - Chronic kidney disease, stage 2 (mild) Code(s): N18.9 - Chronic kidney disease, unspecified (9) BPH NOS w/o ur obs/LUTS: Follows with Suzy, on flomax and finasteride has been prescribed by Dr Almonte though not yet started Status: Chronic Code(s): N40.0 - Benign prostatic hyperplasia without lower urinary tract symptoms (10) Nicotine dependence, chewing tobacco, with other nicotine-induced disorders: Counseled Status: Acute Code(s): F17.228 - Nicotine dependence, chewing tobacco, with other nicotine-induced disorders Additional A&P Information Possible right lower lobe pneumonia, with abnormal chest x-ray and elevated white blood cell count. He does not have a significant cough or sputum production. Continue Levaquin IV for now. Constellation of findings could also be consistent with CHF with small right effusion. Blood cultures obtained. Will order sputum cultures if he develops a cough that is productive. White blood cell count is improving BPH. Continue Flomax Eliquis will suffice for DVT prophylaxis Full code Attestations Medical Necessity Statement*: Needs continued hospitalization for further diuresis secondary to acute systolic heart failure. Coding Level of Care Code Acute Fleet Manager/Dispatch for g Fwd Diagnoses Increasing shortness of breath R06.02 Congestive heart failure I50.33 Heart failure chronicity: acute on chronic Heart failure type: diastolic Hypertension I15.8 Hypertension type: other secondary hypertension Obstructive sleep apnea G47.33 Atrial fibrillation I48.11 Atrial fibrillation type: longstanding persistent Chronic anticoagulation Z79.01 Diabetes mellitus, type II E11.42; Z79.4 Diabetes mellitus skilled nursing insulin use: with extermination inspector use Diabetes mellitus complication status: with neurologic complications Diabetes mellitus complication detail: with polyneuropathy Chronic kidney disease N18.2 Chronic kidney disease stage: stage 2 (mild) BPH NOS w/o ur obs/LUTS N40.0 Nicotine dependence, chewing tobacco, with other nicotine-induced disorders F17.228
[2019-06-25] MEDS: perflutren protein-a microsphr 0.22 mg/mL SDV 3 mL IV (09:42)
[2019-06-25 11:18] LABS: Glucose Point of Care 255 mg/dL (70-110)
--- NOTE | 2019-06-25 12:02 | PC.CHAP ---
Pastoral Care Encounter/Spiritual Assessment Type of Contact [] Declined director hr communications visit [] Patient/Family/Request visit [] Outpatient visit [] Follow-up visit [] Physician referral [] Code/Alert [X] Routine visit [] Staff referral [] Actively dying [] Patient sleeping [] Family support [] [] Out of room [] Palliative care [] [] Receiving care in room [] Pre-surgical visit [] Trauma [] Long length of stay [] ICU visit [] Other: Relational/Emotional Strength [] Patient feels connected with others/family/visitors/staff [] Distress [] Loneliness/isolation [] Abandonment Spirituality of Patient [] Person of Christina [] Attends Voodoo of their Crhistina [] Believes in Prayer [] Reads Bible or Voodoo materials [] There are Spiritual issues to be addressed Special Education Case Manager Interventions [] Prayer [] Active listening [] Non-anxious presence [] Spiritual/emotional support [] Crisis/trauma care [] Spiritual counseling [] Bereavement support [] Provided bereavement packet [] Provided Bible/devotional materials [] Provided toy/stuffed animal, coloring book to patient or family member [] Provided Communion [] Anointing/[place] [] Salvation [] Completed spiritual assessment [] Other: Impact on Illness or Injury [] Angry [] Fearful [] Anxious [] Often cries [] Exhaustion [] Unable to work [] Unable to attend samaritan [] Unable to walk/stand [] Unable to read [] Unable to drive [] Unable to eat/drink [] Unable to sleep [] Unable to be with family [] Patient intubated [] Other: Summary HAD LONG CONVERSATION, EVANGELICAL, STRONG BELIEVER Time spent with patient
--- NOTE | 2019-06-25 13:32 | PM.PN ---
Subjective Subjective: Interval history: He continues to complain of shortness of breath. No events on telemetry. Urine output has not been properly documented. Patient states he did urinate 4-5 times last night. When I evaluated him he was more interested in playing a game on his phone and kept talking about the need to play it every day and reached a certain number of points. Medications: Reviewed: Yes Medication Review Details: Current Medications Acetaminophen (Tylenol) 650 mg PO Q6H PRN PRN Reason: Mild/Mod Pain Or Temp >/= 101 Albuterol/Ipratropium (Duoneb) 3 ml INHALATION Q6H.RESPIRATORY PRN PRN Reason: SHORTNESS OF BREATH Last Admin: 06/25/19 07:36 Dose: 3 ml Documented by: Amlodipine Besylate (Norvasc) 10 mg PO DAILY [facility] Last Admin: 06/25/19 08:52 Dose: 10 mg Documented by: Apixaban (Eliquis) 5 mg PO BID [facility] Last Admin: 06/25/19 08:47 Dose: 5 mg Documented by: Bisacodyl (Dulcolax) 10 mg PO DAILY PRN PRN Reason: CONSTIPATION Calcium Carbonate (Tums) 1,000 mg PO Q4H PRN PRN Reason: DYSPEPSI Clonidine HCl (Catapres) 0.1 mg PO BID [facility] Last Admin: 06/25/19 08:47 Dose: 0.1 mg Documented by: Dextrose (D50w) 25 ml IVP ONCE PRN; Protocol PRN Reason: hypoglycemia protocol Dextrose (D50w) 50 ml IVP PRN PRN; Protocol PRN Reason: hypoglycemia protocol Finasteride (Proscar) 5 mg PO DAILY [facility] Last Admin: 06/25/19 08:46 Dose: 5 mg Documented by: Furosemide (Lasix) 80 mg IVP Q12H [facility] Glucagon (Glucagen) 1 mg IM ONCE PRN; Protocol PRN Reason: Adult Acute Hypoglycemia Prot. Hydralazine HCl (Apresoline) 10 mg IVP Q4H PRN PRN Reason: HYPERTENSION Last Admin: 06/25/19 05:34 Dose: 10 mg Documented by: Dextrose (D5w) 500 mls @ 100 mls/hr IV ONCE PRN; Protocol PRN Reason: Adult Acute Hypoglycemia Prot Levofloxacin/Dextrose (Levaquin-D5w) 750 mg in 150 mls @ 150 mls/hr IV Q24H [facility]; Protocol Last Admin: 06/25/19 05:35 Dose: 150 mls/hr Documented by: Insulin Aspart (Novolog) 0 unit SUBCUT BEDTIME LC; Protocol Last Admin: 06/24/19 21:25 Dose: 2 unit Documented by: Insulin Aspart (Novolog) 0 unit SUBCUT TIDWM [facility]; Protocol Last Admin: 06/25/19 11:20 Dose: 6 unit Documented by: Insulin Glargine (Lantus) 20 unit SUBCUT BEDTIME [facility] Last Admin: 06/24/19 21:25 Dose: 20 unit Documented by: Isosorbide Mononitrate (Imdur) 30 mg PO DAILY [facility] Last Admin: 06/25/19 08:47 Dose: 30 mg Documented by: Losartan Potassium (Cozaar) 100 mg PO DAILY [facility] Last Admin: 06/25/19 08:46 Dose: 100 mg Documented by: Multivitamins Therapeutic (Multivitamin Tab) 1 tab PO DAILY [facility] Last Admin: 06/25/19 08:46 Dose: 1 tab Documented by: Neomycin/Polymyxin/Bacitracin (Neosporin Oint Tube) 1 applic TOPICAL BID [facility] Last Admin: 06/25/19 08:52 Dose: 1 applic Documented by: Ondansetron HCl (Zofran) 4 mg IVP Q8H PRN PRN Reason: vomiting, or N/V if npo Potassium Chloride (Klor-Con 10) 40 meq PO DAILY [facility] Last Admin: 06/25/19 08:48 Dose: 40 meq Documented by: Tamsulosin HCl (Flomax) 0.4 mg PO BEDTIME LC Last Admin: 06/24/19 21:25 Dose: 0.4 mg Documented by: Tramadol HCl (Ultram) 50 mg PO Q6H PRN PRN Reason: MODERATE TO SEVERE PAIN Last Admin: 06/24/19 16:25 Dose: 50 mg Documented by: Vitals/I&O/Wt Last Vital Signs Temp 98.3 F 06/25/19 03:56 Pulse 51 L 06/25/19 09:53 Resp 10 L 06/25/19 09:53 BP 157/70 06/25/19 09:53 Pulse Ox 93 06/25/19 09:53 06/24/19 06/25/19 06/25/19 22:59 06:59 14:59 Intake Total 300 / 660 60 / 720 240 / 240 Balance 300 / 660 60 / 720 240 / 240 Weight last 48 hrs Weight 318 lb Weight 318 lb Physical Exam Const: COMMON NORMALS: no apparent distress, oriented x3 and alert GENERAL APPEARANCE: cooperative, comfortable and well kempt HENMT: COMMON NORMALS: hearing grossly normal bilaterally and moist oral mucous membranes Neck/C-Spine: COMMON NORMALS: no JVD (appreciated) Resp: COMMON NORMALS: clear to auscultation bilaterally (except at bilateral bases) AUSCULTATION: clear to auscultation bilaterally (except at bilateral bases), no crackles, no rales, no rhonchi and no wheezes Cardio: COMMON NORMALS: no JVD (appreciated) and peripheral pulses 2+ throughout PALPATION: normal PMI RATE: bradycardic RHYTHM: abnormal rhythm irregularly irregular HEART SOUNDS: no click, no gallops and no murmurs BRUITS: no carotid bruits PERIPHERAL PULSES: pulses 2+ throughout, radial pulses present, posterior tibial pulses present and dorsalis pedis pulses present Extremity: GENERAL: No clubbing, No cyanosis, Yes edema (2+ edema bilaterally in legs upto thighs) and No pallor Neuro: COMMON NORMALS: oriented x3, CN's II-XII intact bilaterally and no focal motor deficits SENSORIUM/ORIENTATION: Yes alert Psych: COMMON NORMALS: thought process normal and speech normal APPEARANCE: Yes well kempt SPEECH: Yes normal speech THOUGHT PROCESS: normal thought process Data : 06/25/19 04:17 06/25/19 04:17 Other Labs: Laboratory Tests 06/24/19 06/24/19 06/24/19 05:13 05:13 07:28 BUN 25 H Creatinine 1.2 Troponin I 6 Hour Troponin T Baseline 43 H Troponin T 120 Minute 48.26 H NT-Pro-B Natriuret Pep 2582 H 06/24/19 11:04 BUN Creatinine Troponin I 6 Hour 49.77 H Troponin T Baseline Troponin T 120 Minute NT-Pro-B Natriuret Pep TTE (06/25/19) CONCLUSIONS 1. This is a limited echocardiogram with ultrasound enhancing agent (Optison). 2. Normal left ventricular size and systolic function. Left ventricular ejection fraction estimated at 60% visually and 58% by modified biplane method. No regional wall motion abnormality. Abnormal septal motion consistent with conduction abnormality. Micro: Microbiology 06/24/19 13:00 Urine Culture - Preliminary Urine,Clean Catch 06/24/19 06:09 Blood Culture - Preliminary Blood NEGATIVE TO DATE 06/24/19 06:05 Blood Culture - Preliminary Blood NEGATIVE TO DATE A&P Assessment and plan (1) Congestive heart failure: Shortness of breath in setting of acute on chronic decompensated heart failure with preserved ejection fraction. -Initial echocardiogram showed possibly severely depressed LV function. TDS study. -repeat study with USE shows that LV function is actually normal. -Follow up on records from [place]. Status: Chronic Qualifiers: Heart failure chronicity: acute on chronic Heart failure type: diastolic Qualified Code(s): I50.33 - Acute on chronic diastolic (congestive) heart failure Code(s): I50.9 - Heart failure, unspecified (2) Atrial fibrillation: Currently bradycardic. Continue Eliquis. Status: Chronic Qualifiers: Atrial fibrillation type: longstanding persistent Qualified Code(s): I48.11 - Longstanding persistent atrial fibrillation Code(s): I48.91 - Unspecified atrial fibrillation (3) Bradycardia: Prior EKG with atrial fibrillation with RBBB and EKG now with atrial fibrillation with SVR. LBBB. -coreg held. Plan to resume based on HR response. Status: Acute Code(s): R00.1 - Bradycardia, unspecified (4) Hypertension: BP elevated. Continue to closely monitor. Amlodipine increased to 10 mg this morning. Continue other medications. Status: Chronic Qualifiers: Hypertension type: other secondary hypertension Qualified Code(s): I15.8 - Other secondary hypertension Code(s): I10 - Essential (primary) hypertension (5) Hyperlipidemia: Status: Chronic Qualifiers: Hyperlipidemia type: unspecified Qualified Code(s): E78.5 - Hyperlipidemia, unspecified Code(s): E78.5 - Hyperlipidemia, unspecified (6) Obesity: Status: Chronic Qualifiers: Obesity type: unspecified obesity type Code(s): E66.9 - Obesity, unspecified (7) Diabetes mellitus, type II: Status: Acute Qualifiers: Diabetes mellitus predatory animal exterminator insulin use: with longterm use Diabetes mellitus complication status: with neurologic complications Diabetes mellitus complication detail: with polyneuropathy Qualified Code(s): E11.42 - Type 2 diabetes mellitus with diabetic polyneuropathy; Z79.4 - long-term (current) use of insulin Code(s): E11.9 - Type 2 diabetes mellitus without complications (8) Nicotine dependence, chewing tobacco, with other nicotine-induced disorders: Status: Acute Code(s): F17.228 - Nicotine dependence, chewing tobacco, with other nicotine-induced disorders Additional A&P Information CKD stage 3 Benign prostatic hypertrophy Thank you for allowing me to participate in patient's care. Please feel free to call with questions or concerns. Attestations Medical Necessity Statement*: Needs hospital stay for management of decompensated CHF. Coding Level of Care Code Acute Manager Aerospace for [facility] Fwd Diagnoses Congestive heart failure I50.33 Heart failure chronicity: acute on chronic Heart failure type: diastolic Atrial fibrillation I48.11 Atrial fibrillation type: longstanding persistent Bradycardia R00.1 Hypertension I15.8 Hypertension type: other secondary hypertension Hyperlipidemia E78.5 Hyperlipidemia type: unspecified Obesity E66.9 Obesity type: unspecified obesity type Diabetes mellitus, type II E11.42; Z79.4 Diabetes mellitus predatory animal exterminator insulin use: with predatory animal exterminator use Diabetes mellitus complication status: with neurologic complications Diabetes mellitus complication detail: with polyneuropathy Nicotine dependence, chewing tobacco, with other nicotine-induced disorders F17.228
[2019-06-25] MEDS: FUROsemide 10 mg/mL SDV 10mL 80 MG IVP (15:28)
[2019-06-25 17:07] LABS: Glucose Point of Care 175 mg/dL (70-110)
--- NOTE | 2019-06-25 17:56 | USCV_ITS ---
Aundrea Giles Age: 69 Gender: M : 1950 Exam Date: 06/25/2019 09:02 Ordering Phys: Misty Nickerson MD Technologist: Janette Youngblood Exam Location: [facility] Indication: EF BP: / HR: 70 Rhythm: Atrial fibrillation Technical Quality: Good MEASUREMENTS (Male / Female) Normal Values 2D ECHO LV Ejection Fraction MOD 2C 58.9 % LV Ejection Fraction 2C AL 58.3 % FINDINGS Left Ventricle Normal left ventricular size and systolic function with no regional wall motion abnormalities. Left ventricular ejection fraction is estimated at 60 %. Abnormal septal motion consistent with conduction abnormality. Right Ventricle Right ventricle not well visualized. Right Atrium Right atrium not well visualized. Left Atrium Left atrium not well visualized. Mitral Valve Mitral valve not well visualized. Aortic Valve Aortic valve not well visualized. Tricuspid Valve Tricuspid valve not well visualized. Pulmonic Valve Pulmonic valve not well visualized. Pericardium No pericardial effusion. Aorta Aorta not well visualized. CONCLUSIONS 1. This is a limited echocardiogram with ultrasound enhancing agent (Optison). 2. Normal left ventricular size and systolic function. Left ventricular ejection fraction estimated at 60% visually and 58% by modified biplane method. No regional wall motion abnormality. Abnormal septal motion consistent with conduction abnormality. Misty Nickerson MD (Electronically Signed) Final Date: 25 June 2019 11:58 S
[2019-06-25] MEDS: tamsulosin 0.4 mg Capsule PO (20:41)
[2019-06-25] MEDS: insulin glargine 100 units/1 mL 20 UNIT SUBCUT (20:42)
[2019-06-25 20:47] LABS: Glucose Point of Care 230 mg/dL (70-110)
--- NOTE | 2019-06-25 21:01 | PC.NURSE ---
Patient has been educated that we need to measure fluid intake and urine output due to his condition and verbalized understanding.
[2019-06-26] VITALS (13 sets, daily range): BP systolic 140–172; BP diastolic 52–95; PULSE 46–65; RESP 12–20; TEMP 36.4–36.9; O2SAT 92–99
[2019-06-26] MEDS: TRAMadol 50 mg Tablet PO ×3 (02:55→17:47)
[2019-06-26] MEDS: FUROsemide 10 mg/mL SDV 10mL 80 MG IVP ×2 (02:55→17:48)
[2019-06-26] MEDS: levofloxacin-dextrose 5 % 750 MG/150 ML PREMIX 150 MG IV (02:56)
[2019-06-26 05:21] LABS: Anion Gap 15.5 (5-19); Blood Urea Nitrogen 27 mg/dL (8-23); Calcium 9.1 mg/dL (8.5-10.5); Carbon Dioxide 31 mmol/L (22-29); Chloride 99 mmol/L (98-107); Glomerular Filtration Rate 59.9 mL/min (90-130); Glucose 169 mg/dL (65-115); Osmolality Calculated 295 mOsm/kg (285-295); Potassium 3.5 mmol/L (3.5-5.1); Sodium 142 mmol/L (136-145)
[2019-06-26 06:22] LABS: Glucose Point of Care 170 mg/dL (70-110)
[2019-06-26] MEDS: neomycin-poly-bacitracin oint 28 gm 1 APPLIC TOPICAL ×2 (08:26→17:49)
[2019-06-26] MEDS: amlodipine 10 mg Tablet PO (08:27)
[2019-06-26] MEDS: apixaban 5 mg Tablet PO ×2 (08:27→17:47)
[2019-06-26] MEDS: finasteride 5 mg Tablet PO (08:28)
[2019-06-26] MEDS: cloNIDine 0.1 mg Tablet PO ×2 (08:28→17:47)
[2019-06-26] MEDS: pregabalin 150 mg Capsule PO ×2 (08:29→17:48)
[2019-06-26] MEDS: isosorbide mononitrate ER 30 mg Tablet PO (08:29)
[2019-06-26] MEDS: losartan 50 mg Tablet 100 MG PO (08:29)
[2019-06-26] MEDS: multivitamin therapeutic Tablet 1 TAB PO (08:29)
[2019-06-26 11:39] LABS: Glucose Point of Care 226 mg/dL (70-110)
--- NOTE | 2019-06-26 12:17 | P.PN_ITS ---
Subjective Subjective: Interval history: Giles reports he is doing okay. He believes he is a little less swollen. Still feels short of breath when he gets up and around. Medications: Reviewed: Yes Vitals/I&O/Wt Last Vital Signs Temp 97.6 F 06/26/19 11:20 Pulse 55 L 06/26/19 11:20 Resp 17 06/26/19 11:20 BP 156/78 06/26/19 11:20 Pulse Ox 93 06/26/19 11:20 06/25/19 06/26/19 06/26/19 22:59 06:59 14:59 Intake Total 340 / 940 650 / 1590 720 / 720 Output Total 1100 / 1340 375 / 1715 1500 / 1500 Balance -760 / -400 275 / -125 -780 / -780 Weight last 48 hrs Weight 144.56 kg Weight 144.242 kg Physical Exam Narrative: EXAM NARRATIVE: General exam is a white male in no apparent distress. Telemetry demonstrates bradycardia but no pauses Cardiovascular bradycardic, regular without murmur Lungs clear but with diminished breath sounds at the bases Abdomen is soft, obese Extremities 2+ edema, perhaps not quite as tight. Data : 06/25/19 04:17 06/26/19 04:30 Micro: Microbiology 06/24/19 13:00 Urine Culture - Final Urine,Clean Catch A&P Assessment and plan (1) Increasing shortness of breath: Appears to be secondary to acute diastolic heart failure. Secondary cause could be right lower lobe pneumonia, although this is less certain. White blood cell count is elevated, but he has had not had any chills, cough, fever. Bradycardia has persisted. Coreg has been discontinued. Diuresis with IV Lasix. 1, 2.5 mg dose of Zaroxolyn today prior to the next dose Cardiology evaluating as well Fluid restriction 1500 cc Status: Acute Code(s): R06.02 - Shortness of breath (2) Congestive heart failure: Lasix IV as noted Initial echocardiogram demonstrates significantly low EF. Repeat limited echo with contrast demonstrates normal ejection fraction Consistent with acute diastolic heart failure. Status: Chronic Qualifiers: Heart failure chronicity: acute on chronic Heart failure type: diastolic Qualified Code(s): I50.33 - Acute on chronic diastolic (congestive) heart failure Code(s): I50.9 - Heart failure, unspecified (3) Hypertension: Poorly controlled Imdur has been added. Norvasc added. Continue losartan Hydralazine as needed Continue clonidine Carvedilol discontinued secondary to bradycardia Status: Chronic Qualifiers: Hypertension type: other secondary hypertension Qualified Code(s): I15.8 - Other secondary hypertension Code(s): I10 - Essential (primary) hypertension (4) Obstructive sleep apnea: Refuses treatment Status: Chronic Code(s): G47.33 - Obstructive sleep apnea (adult) (pediatric) (5) Atrial fibrillation: Carvedilol discontinued. Still bradycardic. Cardiology following Status: Chronic Qualifiers: Atrial fibrillation type: longstanding persistent Qualified Code(s): I48.11 - Longstanding persistent atrial fibrillation Code(s): I48.91 - Unspecified atrial fibrillation (6) Chronic anticoagulation: Eliquis Status: Chronic Code(s): Z79.01 - senior living (current) use of anticoagulants (7) Diabetes mellitus, type II: Sliding scale insulin, Lantus Status: Acute Qualifiers: Diabetes mellitus custodial insulin use: with remote computer terminal operator use Diabetes mellitus complication status: with neurologic complications Diabetes mellitus complication detail: with polyneuropathy Qualified Code(s): E11.42 - Type 2 diabetes mellitus with diabetic polyneuropathy; Z79.4 - senior living (current) use of insulin Code(s): E11.9 - Type 2 diabetes mellitus without complications (8) Chronic kidney disease: Follow creatinine closely Status: Chronic Qualifiers: Chronic kidney disease stage: stage 2 (mild) Qualified Code(s): N18.2 - Chronic kidney disease, stage 2 (mild) Code(s): N18.9 - Chronic kidney disease, unspecified (9) BPH NOS w/o ur obs/LUTS: Follows with Suzy, on flomax and finasteride has been prescribed by Dr Almonte though not yet started Status: Chronic Code(s): N40.0 - Benign prostatic hyperplasia without lower urinary tract symptoms (10) Nicotine dependence, chewing tobacco, with other nicotine-induced disorders: Counseled Status: Acute Code(s): F17.228 - Nicotine dependence, chewing tobacco, with other nicotine-induced disorders Additional A&P Information Possible right lower lobe pneumonia, with abnormal chest x-ray and elevated white blood cell count. He does not have a significant cough or sputum production. Continue Levaquin Constellation of findings could also be consistent with CHF with small right effusion. Blood cultures negative at this time. White blood cell count improved BPH. Continue Flomax Eliquis will suffice for DVT prophylaxis Full code Attestations Medical Necessity Statement*: Needs continued hospital stay for further diuresis secondary to acute diastolic heart failure. Coding Level of Care Code Acute Blower Operator for [facility] Diagnoses Increasing shortness of breath R06.02 Congestive heart failure I50.33 Heart failure chronicity: acute on chronic Heart failure type: diastolic Hypertension I15.8 Hypertension type: other secondary hypertension Obstructive sleep apnea G47.33 Atrial fibrillation I48.11 Atrial fibrillation type: longstanding persistent Chronic anticoagulation Z79.01 Diabetes mellitus, type II E11.42; Z79.4 Diabetes mellitus custodial insulin use: with remote computer terminal operator use Diabetes mellitus complication status: with neurologic complications Diabetes mellitus complication detail: with polyneuropathy Chronic kidney disease N18.2 Chronic kidney disease stage: stage 2 (mild) BPH NOS w/o ur obs/LUTS N40.0 Nicotine dependence, chewing tobacco, with other nicotine-induced disorders F17.228
--- NOTE | 2019-06-26 12:39 | PM.PN ---
Subjective Subjective: Interval history: No acute events. He continues to complain of shortness of breath on ambulation. Medications: Reviewed: Yes Medication Review Details: Current Medications Acetaminophen (Tylenol) 650 mg PO Q6H PRN PRN Reason: Mild/Mod Pain Or Temp >/= 101 Albuterol/Ipratropium (Duoneb) 3 ml INHALATION Q6H.RESPIRATORY PRN PRN Reason: SHORTNESS OF BREATH Last Admin: 06/25/19 07:36 Dose: 3 ml Documented by: Amlodipine Besylate (Norvasc) 10 mg PO DAILY [facility] Last Admin: 06/26/19 08:27 Dose: 10 mg Documented by: Apixaban (Eliquis) 5 mg PO BID [facility] Last Admin: 06/26/19 08:27 Dose: 5 mg Documented by: Bisacodyl (Dulcolax) 10 mg PO DAILY PRN PRN Reason: CONSTIPATION Calcium Carbonate (Tums) 1,000 mg PO Q4H PRN PRN Reason: DYSPEPSI Clonidine HCl (Catapres) 0.1 mg PO BID [facility] Last Admin: 06/26/19 08:28 Dose: 0.1 mg Documented by: Dextrose (D50w) 25 ml IVP ONCE PRN; Protocol PRN Reason: hypoglycemia protocol Dextrose (D50w) 50 ml IVP PRN PRN; Protocol PRN Reason: hypoglycemia protocol Finasteride (Proscar) 5 mg PO DAILY [facility] Last Admin: 06/26/19 08:28 Dose: 5 mg Documented by: Furosemide (Lasix) 80 mg IVP Q12H [facility] Last Admin: 06/26/19 02:55 Dose: 80 mg Documented by: Glucagon (Glucagen) 1 mg IM ONCE PRN; Protocol PRN Reason: Adult Acute Hypoglycemia Prot. Hydralazine HCl (Apresoline) 10 mg IVP Q4H PRN PRN Reason: HYPERTENSION Last Admin: 06/25/19 05:34 Dose: 10 mg Documented by: Dextrose (D5w) 500 mls @ 100 mls/hr IV ONCE PRN; Protocol PRN Reason: Adult Acute Hypoglycemia Prot Levofloxacin/Dextrose (Levaquin-D5w) 750 mg in 150 mls @ 150 mls/hr IV Q24H [facility]; Protocol Last Infusion: 06/26/19 04:58 Dose: Infused Documented by: Insulin Aspart (Novolog) 0 unit SUBCUT BEDTIME [facility]; Protocol Last Admin: 06/25/19 20:41 Dose: 3 unit Documented by: Insulin Aspart (Novolog) 0 unit SUBCUT TIDWM [facility]; Protocol Last Admin: 06/26/19 11:51 Dose: 6 unit Documented by: Insulin Glargine (Lantus) 20 unit SUBCUT BEDTIME [facility] Last Admin: 06/25/19 20:42 Dose: 20 unit Documented by: Isosorbide Mononitrate (Imdur) 30 mg PO DAILY [facility] Last Admin: 06/26/19 08:29 Dose: 30 mg Documented by: Losartan Potassium (Cozaar) 100 mg PO DAILY [facility] Last Admin: 06/26/19 08:29 Dose: 100 mg Documented by: Metolazone (Zaroxolyn) 2.5 mg PO ONCE ONE Stop: 06/26/19 16:31 Multivitamins Therapeutic (Multivitamin Tab) 1 tab PO DAILY [facility] Last Admin: 06/26/19 08:29 Dose: 1 tab Documented by: Neomycin/Polymyxin/Bacitracin (Neosporin Oint Tube) 1 applic TOPICAL BID [facility] Last Admin: 06/26/19 08:26 Dose: 1 applic Documented by: Ondansetron HCl (Zofran) 4 mg IVP Q8H PRN PRN Reason: vomiting, or N/V if npo Potassium Chloride (Klor-Con 10) 40 meq PO DAILY [facility] Last Admin: 06/26/19 08:30 Dose: 40 meq Documented by: Tamsulosin HCl (Flomax) 0.4 mg PO BEDTIME [facility] Last Admin: 06/25/19 20:41 Dose: 0.4 mg Documented by: Tramadol HCl (Ultram) 50 mg PO Q6H PRN PRN Reason: MODERATE TO SEVERE PAIN Last Admin: 06/26/19 08:31 Dose: 50 mg Documented by: Vitals/I&O/Wt Last Vital Signs Temp 97.6 F 06/26/19 11:20 Pulse 55 L 06/26/19 11:20 Resp 17 06/26/19 11:20 BP 156/78 06/26/19 11:20 Pulse Ox 93 06/26/19 11:20 06/25/19 06/26/19 06/26/19 22:59 06:59 14:59 Intake Total 340 / 940 650 / 1590 720 / 720 Output Total 1100 / 1340 375 / 1715 1500 / 1500 Balance -760 / -400 275 / -125 -780 / -780 Weight last 48 hrs Weight 318 lb 11.2 oz Weight 318 lb Physical Exam Const: COMMON NORMALS: no apparent distress, oriented x3 and alert GENERAL APPEARANCE: cooperative, comfortable and well kempt HENMT: COMMON NORMALS: hearing grossly normal bilaterally and moist oral mucous membranes Neck/C-Spine: COMMON NORMALS: no JVD (appreciated) Resp: COMMON NORMALS: clear to auscultation bilaterally AUSCULTATION: clear to auscultation bilaterally, no crackles, no rales, no rhonchi and no wheezes Cardio: COMMON NORMALS: no JVD (appreciated) and peripheral pulses 2+ throughout PALPATION: normal PMI RATE: bradycardic RHYTHM: abnormal rhythm HEART SOUNDS: no click, no gallops and no murmurs BRUITS: no carotid bruits PERIPHERAL PULSES: pulses 2+ throughout, radial pulses present, posterior tibial pulses present and dorsalis pedis pulses present Extremity: GENERAL: No clubbing, No cyanosis, Yes edema (2+ edema bilaterally in legs, improved) and No pallor Neuro: COMMON NORMALS: oriented x3 SENSORIUM/ORIENTATION: Yes alert Psych: COMMON NORMALS: thought process normal and speech normal APPEARANCE: Yes well kempt SPEECH: Yes normal speech THOUGHT PROCESS: normal thought process Data : 06/25/19 04:17 06/26/19 04:30 Micro: Microbiology 06/24/19 13:00 Urine Culture - Final Urine,Clean Catch A&P Assessment and plan (1) Congestive heart failure: Shortness of breath in setting of acute on chronic decompensated heart failure with preserved ejection fraction. -Initial echocardiogram showed possibly severely depressed LV function. TDS study. -repeat study with USE shows that LV function is actually normal. -Follow up on records from [place]. -Currently on Lasix 80 mg IV every 12 hourly and his urine output greater than 3 L in last 24 hours. His -1500 mL from yesterday. Metolazone 2.5 mg x1 dose was ordered earlier today. -Possibly transition to p.o. Lasix tomorrow. Status: Chronic Qualifiers: Heart failure chronicity: acute on chronic Heart failure type: diastolic Qualified Code(s): I50.33 - Acute on chronic diastolic (congestive) heart failure Code(s): I50.9 - Heart failure, unspecified (2) Atrial fibrillation: Currently bradycardic. Continue Eliquis. No AV partha blockers. Status: Chronic Qualifiers: Atrial fibrillation type: longstanding persistent Qualified Code(s): I48.11 - Longstanding persistent atrial fibrillation Code(s): I48.91 - Unspecified atrial fibrillation (3) Bradycardia: Prior EKG with atrial fibrillation with RBBB and EKG now with atrial fibrillation with SVR. LBBB. -coreg held. Plan to resume based on HR response. Status: Acute Code(s): R00.1 - Bradycardia, unspecified (4) Hypertension: BP elevated. Continue to closely monitor. Continue other medications. Status: Chronic Qualifiers: Hypertension type: other secondary hypertension Qualified Code(s): I15.8 - Other secondary hypertension Code(s): I10 - Essential (primary) hypertension (5) Hyperlipidemia: Status: Chronic Qualifiers: Hyperlipidemia type: unspecified Qualified Code(s): E78.5 - Hyperlipidemia, unspecified Code(s): E78.5 - Hyperlipidemia, unspecified (6) Obesity: Status: Chronic Qualifiers: Obesity type: unspecified obesity type Code(s): E66.9 - Obesity, unspecified (7) Diabetes mellitus, type II: Status: Acute Qualifiers: Diabetes mellitus lobsterman insulin use: with skilled nursing use Diabetes mellitus complication status: with neurologic complications Diabetes mellitus complication detail: with polyneuropathy Qualified Code(s): E11.42 - Type 2 diabetes mellitus with diabetic polyneuropathy; Z79.4 - continuous churn buttermaker (current) use of insulin Code(s): E11.9 - Type 2 diabetes mellitus without complications (8) Nicotine dependence, chewing tobacco, with other nicotine-induced disorders: Status: Acute Code(s): F17.228 - Nicotine dependence, chewing tobacco, with other nicotine-induced disorders Additional A&P Information CKD stage 3 Benign prostatic hypertrophy Thank you for allowing me to participate in patient's care. Please feel free to call with questions or concerns. Attestations Medical Necessity Statement*: Needs hospital stay for decompensated heart failure with preserved ejection fraction and bradycardia. Coding Level of Care Code Acute Air Brake Adjuster for [facility] Diagnoses Congestive heart failure I50.33 Heart failure chronicity: acute on chronic Heart failure type: diastolic Atrial fibrillation I48.11 Atrial fibrillation type: longstanding persistent Bradycardia R00.1 Hypertension I15.8 Hypertension type: other secondary hypertension Hyperlipidemia E78.5 Hyperlipidemia type: unspecified Obesity E66.9 Obesity type: unspecified obesity type Diabetes mellitus, type II E11.42; Z79.4 Diabetes mellitus skilled nursing insulin use: with lobsterman use Diabetes mellitus complication status: with neurologic complications Diabetes mellitus complication detail: with polyneuropathy Nicotine dependence, chewing tobacco, with other nicotine-induced disorders F17.145
[2019-06-26] MEDS: metOLazone 5 MG Tablet 2.5 MG PO (16:50)
[2019-06-26 17:01] LABS: Glucose Point of Care 163 mg/dL (70-110)
[2019-06-26 20:41] LABS: Glucose Point of Care 208 mg/dL (70-110)
[2019-06-26] MEDS: insulin glargine 100 units/1 mL 20 UNIT SUBCUT (21:46)
[2019-06-26] MEDS: tamsulosin 0.4 mg Capsule PO (21:46)
--- NOTE | 2019-06-26 23:00 | PC.NURSE ---
PATIENT HAD ONE VOID IN TOILET. PATIENT STATES I WENT A BUNCH. PATIENT STATES HE IS UNABLE TO USE THE URINAL. PATIENT WAS REEDUCATED TO USE BEDSIDE COMMODE IN ORDER TO MEASURE URINE OUTPUT AND VERBALIZED UNDERSTANDING.
[2019-06-27] VITALS (7 sets, daily range): BP systolic 143–166; BP diastolic 61–75; PULSE 52–60; RESP 14–18; TEMP 36.4–36.5; O2SAT 93–98
[2019-06-27] MEDS: FUROsemide 10 mg/mL SDV 10mL 80 MG IVP (04:00)
[2019-06-27] MEDS: TRAMadol 50 mg Tablet PO ×2 (04:00→12:27)
[2019-06-27] MEDS: levofloxacin-dextrose 5 % 750 MG/150 ML PREMIX 150 MG IV (04:01)
--- NOTE | 2019-06-27 04:27 | PC.NURSE ---
Patient has been educated on fluid restriction and verbalized understanding.
[2019-06-27 05:21] LABS: Basophils % 0.4 %; Eosinophils # 0.2 10^3/uL (0.0-0.8); Eosinophils % 1.5 %; Hematocrit 45.2 % (42.0-52.0); Hemoglobin 14.6 g/dL (11.7-16.6); Lymphocytes # 2.2 10^3/uL (0.8-4.8); Lymphocytes % 21.6 %; Mean Corpuscular HGB Conc 32.3 g/dL (30.0-36.0); Mean Corpuscular Hemoglobin 28.5 pg (28.0-34.0); Mean Corpuscular Volume 88.3 fL (80-94); Mean Platelet Volume 11.5 fL (7.4-10.4); Monocytes # 0.7 10^3/uL (0.2-0.9); Monocytes % 6.6 %; Neutrophils # 6.9 10^3/uL (1.8-7.7); Neutrophils % 69.4 %; Nucleated Red Blood Cells % 0 %; Platelet Count 203 10^3/cmm (130-400); Red Blood Count 5.12 10^6/uL (4.1-5.3); Red Cell Distribution Width 13.2 % (12.1-15.1)
[2019-06-27 05:50] LABS: Procalcitonin 0.14 ng/mL (0-0.5)
[2019-06-27 05:55] LABS: Anion Gap 17.5 (5-19); Blood Urea Nitrogen 29 mg/dL (8-23); Calcium 10.2 mg/dL (8.5-10.5); Carbon Dioxide 34 mmol/L (22-29); Chloride 92 mmol/L (98-107); Glomerular Filtration Rate 59.9 mL/min (90-130); Glucose 242 mg/dL (65-115); Osmolality Calculated 295 mOsm/kg (285-295); Potassium 3.5 mmol/L (3.5-5.1); Sodium 140 mmol/L (136-145)
[2019-06-27 06:18] LABS: Glucose Point of Care 307 mg/dL (70-110)
[2019-06-27] MEDS: neomycin-poly-bacitracin oint 28 gm 1 APPLIC TOPICAL (08:39)
[2019-06-27] MEDS: amlodipine 10 mg Tablet PO (08:41)
[2019-06-27] MEDS: multivitamin therapeutic Tablet 1 TAB PO (08:41)
[2019-06-27] MEDS: cloNIDine 0.1 mg Tablet PO (08:41)
[2019-06-27] MEDS: isosorbide mononitrate ER 30 mg Tablet PO (08:41)
[2019-06-27] MEDS: losartan 50 mg Tablet 100 MG PO (08:41)
[2019-06-27] MEDS: pregabalin 150 mg Capsule PO (08:41)
[2019-06-27] MEDS: apixaban 5 mg Tablet PO (08:41)
[2019-06-27] MEDS: finasteride 5 mg Tablet PO (08:41)
--- NOTE | 2019-06-27 10:23 | P.DS_ITS ---
Discharge Providers Date of Admission: 06/24/19 07:16 Date of Discharge: June 27, 2019 Attending Provider at Admission: Nazanin Tovar MD Attending Provider at Discharge: Tre Farris MD Consults: Dr. Nickerson Primary Care Provider: Trent Carolina Diagnoses at Discharge Discharge Diagnosis (1) Congestive heart failure: Status: Chronic Qualifiers: Heart failure chronicity: acute on chronic Heart failure type: diastolic Qualified Code(s): I50.33 - Acute on chronic diastolic (congestive) heart failure (2) Atrial fibrillation: Status: Chronic Problem details: chronic, on eliquis Qualifiers: Atrial fibrillation type: longstanding persistent Qualified Code(s): I48.11 - Longstanding persistent atrial fibrillation (3) Bradycardia: Status: Acute (4) Hypertension: Status: Chronic Qualifiers: Hypertension type: other secondary hypertension Qualified Code(s): I15.8 - Other secondary hypertension (5) Hyperlipidemia: Status: Chronic Qualifiers: Hyperlipidemia type: unspecified Qualified Code(s): E78.5 - Hyperlipidemia, unspecified (6) Obesity: Status: Chronic Problem details: BMI 42 Qualifiers: Obesity type: unspecified obesity type (7) Diabetes mellitus, type II: Status: Acute Problem details: victoza & lantus Qualifiers: Diabetes mellitus complication detail: with polyneuropathy Diabetes mellitus complication status: with neurologic complications Diabetes mellitus deep fryer assembler insulin use: with deep fryer assembler use Qualified Code(s): E11.42 - Type 2 diabetes mellitus with diabetic polyneuropathy; Z79.4 - penitentiary (current) use of insulin (8) Nicotine dependence, chewing tobacco, with other nicotine-induced disorders: Status: Acute Reason for Visit Reason for Visit: Reason For Visit: CHF, BRADYCARDIA Hospital Course Discharge Summary: 69-year-old gentleman past medical history of congestive heart failure, COPD, peripheral vascular disease presented to the ED complaining of worsening shortness of breath for last 1 to 2 weeks. He states his shortness of breath has been getting worse progressively for last few months even though his dose of Lasix has increased gradually from 40 mg to currently 120 mg for last 2 days. Patient is admitted to cardiac stepdown unit with telemetry for management of acute shortness of breath leading to acute hypoxic respiratory failure thought because of congestive heart failure. During hospitalization his imaging was concerning for congestive heart failure and right lower lobe consolidation. He was treated with IV levofloxacin along with IV diuresis. Patient was given metolazone on and off because of poor diuretic response. He gradually started having appropriate diuretic response and was around net 4 L negative since admission. He underwent echocardiogram which revealed normal EF with grade 2 diastolic dysfunction. Patient's leukocytosis gradually improved and he remained afebrile. Home oxygen evaluation was done and it was determined that he did not need any oxygen for home both at rest and ambulation. His oral diuretics were adjusted and metolazone has been added to his oral regimen to be taken every other day. During hospitalization he was found to have high blood pressures for which his antihypertensives were adjusted, he was also found to have bradycardia because of which his home dose of Coreg was discontinued. Cardiology recommendations were also sought. He is advised to use compression stockings during the day to help with his peripheral edema. Patient most likely also has obstructive sleep apnea for which she supposed to be using CPAP which he states he is not compliant to because he feels claustrophobic. It was discussed in detail with the patient for need of use of CPAP otherwise it is quite possible that his diastolic heart failure would continue to worsen. Patient is being discharged home in hemodynamically stable condition, feeling a lot better today advised to follow-up with Dr. Nickerson from cardiology in 2 weeks. Physical Exam Narrative: EXAM NARRATIVE: General exam is a white male in no apparent distress. Telemetry demonstrates bradycardia but no pauses Cardiovascular bradycardic, regular without murmur Lungs clear but with diminished breath sounds at the bases Abdomen is soft, obese Extremities 2+ edema, perhaps not quite as tight. Const: COMMON NORMALS: oriented x3 and alert Neuro: COMMON NORMALS: oriented x3, moves all extremities and no sensory deficits noted SENSORIUM/ORIENTATION: Yes alert Skin: NARRATIVE SKIN EXAM: Patient with chronic venous stasis changes. Some serous drainage from both legs right greater than left. On the left foot the third toe has some desquamation with serosanguineous fluid in an area that looks like it was probably a blister that came off. Toe is erythematous immediately around this but it does not extend beyond that. He has some bruising to his left upper extremity. Discharge Data Data Completed and Pending: Completed Studies During Hospitalization Category Date Time Status XR chest 1V bethany ble [id number] Urgent Exams 06/24/19 04:42 Completed CV echo complete* [id number] Routine Ultrasound 06/24/19 08:00 Completed CV echo lmt wo/w contras [id number] Rout ine Ultrasound 06/25/19 17:56 Completed US/CV paperwork R outine Ultrasound 06/25/19 09:16 Completed Pending at discharge Category Date Time Status Blood Culture Sta t Lab 06/24/19 06:09 Results Labs from last 24 hours 06/27/19 06/27/19 06/27/19 06:10 04:46 04:46 WBC 10.0 RBC 5.12 Hgb 14.6 Hct 45.2 MCV 88.3 MCH 28.5 MCHC 32.3 RDW 13.2 Plt Count 203 MPV 11.5 H Neut % (Auto) 69.4 Lymph % (Auto) 21.6 Mingo % (Auto) 6.6 Eos % (Auto) 1.5 Baso % (Auto) 0.4 Neut # (Auto) 6.9 Lymph # (Auto) 2.2 Mingo # (Auto) 0.7 Eos # (Auto) 0.2 Baso # (Auto) 0.0 Nucleated RBC % (a uto) 0 Nucleated RBCs # 0.0 Sodium Potassium Chloride Carbon Dioxide Anion Gap BUN Creatinine GFR Calculation Glucose POC Glucose 307 Calculated Osmolal ity Calcium Procalcitonin 0.14 06/27/19 06/26/19 06/26/19 04:46 20:32 16:53 WBC RBC Hgb Hct MCV MCH MCHC RDW Plt Count MPV Neut % (Auto) Lymph % (Auto) Mingo % (Auto) Eos % (Auto) Baso % (Auto) Neut # (Auto) Lymph # (Auto) Mingo # (Auto) Eos # (Auto) Baso # (Auto) Nucleated RBC % (a uto) Nucleated RBCs # Sodium 140 Potassium 3.5 Chloride 92 L Carbon Dioxide 34 H Anion Gap 17.5 BUN 29 H Creatinine 1.2 GFR Calculation 59.9 L Glucose 242 H POC Glucose 208 163 Calculated Osmolal ity 295 Calcium 10.2 Procalcitonin 06/26/19 11:16 WBC RBC Hgb Hct MCV MCH MCHC RDW Plt Count MPV Neut % (Auto) Lymph % (Auto) Mingo % (Auto) Eos % (Auto) Baso % (Auto) Neut # (Auto) Lymph # (Auto) Mingo # (Auto) Eos # (Auto) Baso # (Auto) Nucleated RBC % (a uto) Nucleated RBCs # Sodium Potassium Chloride Carbon Dioxide Anion Gap BUN Creatinine GFR Calculation Glucose POC Glucose 226 Calculated Osmolal ity Calcium Procalcitonin Vitals: Last Vital Signs Temp 97.5 F L 06/27/19 08:00 Pulse 54 L 06/27/19 08:47 Resp 18 06/27/19 08:47 BP 166/61 06/27/19 08:41 Pulse Ox 95 06/27/19 08:47 Discharge Plan Discharge Patient Disposition: Home Health Service Condition: Stable Prescriptions: New clonidine HCl 0.1 mg Tablet 0.1 mg PO BID Qty: 60 RF: 0 isosorbide mononitrate 30 mg Tablet Extended Release 24 Hr 60 mg PO DAILY Qty: 30 RF: 0 amlodipine 10 mg Tablet 10 mg PO DAILY Qty: 30 RF: 0 levofloxacin 750 mg tablet 750 mg PO DAILY 5 Days Qty: 5 RF: 0 metolazone 2.5 mg tablet 2.5 mg PO EVERY OTHER DAY Qty: 14 RF: 0 Continued pregabalin 150 mg capsule 150 mg PO BID RF: 0 tamsulosin 0.4 mg capsule 0.4 mg PO BEDTIME RF: 0 losartan 100 mg tablet 100 mg PO DAILY RF: 0 Eliquis 5 mg tablet 5 mg PO BID RF: 0 finasteride 5 mg tablet 5 mg PO QDAY Qty: 90 RF: 0 potassium chloride 20 mEq tablet extended release 40 meq PO BID Qty: 12 RF: 0 tramadol 50 mg tablet 50 mg PO Q6H PRN (Reason: pain) Qty: 20 RF: 0 multivitamin Tablet 1 tab PO DAILY RF: 0 Vitamin D3 2,000 unit Tablet 2,000 unit PO DAILY RF: 0 Victoza 3-Elias 0.6 mg/0.1 mL (18 mg/3 mL) Pen Injector 1.8 mg SUBCUT DAILY RF: 0 Lantus U-100 Insulin 44 units SUBCUT BEDTIME RF: 0 Changed Lasix 40 mg tablet 80 mg PO BIDPC Qty: 60 RF: 0 Discontinued carvedilol 25 mg tablet 25 mg PO BID RF: 0 clonidine 0.2 mg transdermal Q7D RF: 0 Discharge Orders: Discharge Order (Routine); Ordered 06/27/19 Ordered By: Tre Farris Referrals: Trent Carolina [Primary Care Provider] - ([facility] Gloria Novoa to be seen within 1 week in your home. If you don't hear from them by Tomorrow, please call them at [phone]) Misty Nickerson MD [Physician] - 2 weeks ([place] [facility] [place] [facility] [place] Dr. Nickerson on July 12 at 1:30pm. Any questions or appointment changes, please call them at [phone].) Discharge Diet: Cardiac and Low Salt Discharge Activity: Resume usual activity Patient Instructions: Metolazone (By mouth), Clonidine (By mouth), Amlodipine (By mouth), Isosorbide Mononitrate (By mouth), Levofloxacin (By mouth), Heart Failure (DC) Activity Restrictions/Additional Instructions: Use compression stockings as advised during the day and can take off while sleeping at night. Please use CPAP machine at least at night. Clonidine has been changed from patch to 0.1 mg twice daily. Amlodipine has been added, carvedilol has been withheld, Lasix have been increased to twice daily. Take metolazone 2.5 mg every other day. Follow-up with cardiology in 2 weeks. Discharge Date/Time: 06/27/19 13:05 Discharge Attestations Time Spent in Discharge Care*: greater than 30 min Specific Discharge Activities: Specific discharge activities: educating patient Status at Discharge: Cognitive status at discharge: cognitively intact , Behavioral status at discharge: cooperative , Functional status at discharge: independent ambulation Overall status at discharge: patient is back to baseline Quality Metrics Clinical Quality Measures During this hospital stay, did patient experience: None Coding Level of Care Code Acute Stock Or Delivery Clerk for g Fwd Exam Expanded Problem Focused Diagnoses Congestive heart failure I50.33 Heart failure chronicity: acute on chronic Heart failure type: diastolic Atrial fibrillation I48.11 Atrial fibrillation type: longstanding persistent Bradycardia R00.1 Hypertension I15.8 Hypertension type: other secondary hypertension Hyperlipidemia E78.5 Hyperlipidemia type: unspecified Obesity E66.9 Obesity type: unspecified obesity type Diabetes mellitus, type II E11.42; Z79.4 Diabetes mellitus complication detail: with polyneuropathy Diabetes mellitus complication status: with neurologic complications Diabetes mellitus deep fryer assembler insulin use: with deep fryer assembler use Nicotine dependence, chewing tobacco, with other nicotine-induced disorders F17.228
--- NOTE | 2019-06-27 12:24 | PM.PN ---
Vitals/I&O/Wt Last Vital Signs 0 Temp 97.7 F 06/27/19 12:00 Pulse 52 L 06/27/19 12:00 Resp 14 06/27/19 12:00 BP 144/65 06/27/19 12:00 Pulse Ox 95 06/27/19 12:03 06/26/19 06/27/19 06/27/19 22:59 06:59 14:59 Intake Total 240 / 960 1150 / 2110 720 / 720 Output Total 3200 / 4950 Balance 240 / -790 -2050 / -2840 720 / 720 Weight last 48 hrs Weight 315 lb 11.2 oz Weight 318 lb 11.2 oz Physical Exam Narrative: EXAM NARRATIVE: Const COMMON NORMALS: no apparent distress, oriented x3 and alert GENERAL APPEARANCE: cooperative, comfortable and well kempt HENMT COMMON NORMALS: hearing grossly normal bilaterally and moist oral mucous membranes Neck/C-Spine COMMON NORMALS: no JVD (appreciated) Resp COMMON NORMALS: clear to auscultation bilaterally AUSCULTATION: clear to auscultation bilaterally, no crackles, no rales, no rhonchi and no wheezes Cardio COMMON NORMALS: no JVD (appreciated) and peripheral pulses 2+ throughout PALPATION: normal PMI RATE: bradycardic RHYTHM: abnormal rhythm HEART SOUNDS: no click, no gallops and no murmurs BRUITS: no carotid bruits PERIPHERAL PULSES: pulses 2+ throughout, radial pulses present, posterior tibial pulses present and dorsalis pedis pulses present Extremity GENERAL: No clubbing, No cyanosis, Yes edema (2+ edema bilaterally in legs, improved) and No pallor Neuro COMMON NORMALS: oriented x3 SENSORIUM/ORIENTATION: Yes alert Psych COMMON NORMALS: thought process normal and speech normal APPEARANCE: Yes well kempt SPEECH: Yes normal speech THOUGHT PROCESS: normal thought process Data : 06/27/19 04:46 06/27/19 04:46 Micro: Microbiology 06/24/19 13:00 Urine Culture - Final Urine,Clean Catch A&P Assessment and plan (1) Congestive heart failure: Shortness of breath in setting of acute on chronic decompensated heart failure with preserved ejection fraction. -Initial echocardiogram showed possibly severely depressed LV function. TDS study. -repeat study with USE shows that LV function is actually normal. -Follow up on records from [place]. -Transition to Lasix 80 mg p.o. every 12 and metolazone 2.5 mg every other day along with supplemental potassium. -Follow-up BMP and follow-up with me in [facility] in 2 weeks. Status: Chronic Qualifiers: Heart failure chronicity: acute on chronic Heart failure type: diastolic Qualified Code(s): I50.33 - Acute on chronic diastolic (congestive) heart failure Code(s): I50.9 - Heart failure, unspecified (2) Atrial fibrillation: Currently bradycardic. Continue Eliquis. No AV partha blockers. Status: Chronic Qualifiers: Atrial fibrillation type: longstanding persistent Qualified Code(s): I48.11 - Longstanding persistent atrial fibrillation Code(s): I48.91 - Unspecified atrial fibrillation (3) Bradycardia: Prior EKG with atrial fibrillation with RBBB and EKG now with atrial fibrillation with SVR. LBBB. -coreg held on discharge Status: Acute Code(s): R00.1 - Bradycardia, unspecified (4) Hypertension: BP elevated. Continue to closely monitor. Continue other medications. -Increase Imdur to 60 mg daily and DC clonidine patch. Status: Chronic Qualifiers: Hypertension type: other secondary hypertension Qualified Code(s): I15.8 - Other secondary hypertension Code(s): I10 - Essential (primary) hypertension (5) Hyperlipidemia: Status: Chronic Qualifiers: Hyperlipidemia type: unspecified Qualified Code(s): E78.5 - Hyperlipidemia, unspecified Code(s): E78.5 - Hyperlipidemia, unspecified (6) Obesity: Status: Chronic Qualifiers: Obesity type: unspecified obesity type Code(s): E66.9 - Obesity, unspecified (7) Diabetes mellitus, type II: Status: Acute Qualifiers: Diabetes mellitus intermediate accountant insulin use: with custodial use Diabetes mellitus complication status: with neurologic complications Diabetes mellitus complication detail: with polyneuropathy Qualified Code(s): E11.42 - Type 2 diabetes mellitus with diabetic polyneuropathy; Z79.4 - 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 Please feel free to call with questions or concerns. Attestations Medical Necessity Statement*: Patient seems stable to be discharged home from cardiac standpoint. Coding Level of Care Code Acute Offset Platemaker for Yris Fwd Diagnoses Congestive heart failure I50.33 Heart failure chronicity: acute on chronic Heart failure type: diastolic Atrial fibrillation I48.11 Atrial fibrillation type: longstanding persistent Bradycardia R00.1 Hypertension I15.8 Hypertension type: other secondary hypertension Hyperlipidemia E78.5 Hyperlipidemia type: unspecified Obesity E66.9 Obesity type: unspecified obesity type Diabetes mellitus, type II E11.42; Z79.4 Diabetes mellitus intermediate accountant insulin use: with custodial use Diabetes mellitus complication status: with neurologic complications Diabetes mellitus complication detail: with polyneuropathy Nicotine dependence, chewing tobacco, with other nicotine-induced disorders F17.820
[2019-06-27 20:55] LABS: Glucose Point of Care 183 mg/dL (70-110)
== END 2019-06-27 13:05 | disposition home health service (06) | DRG 291 ==
LOC: ER 05:34 → CSU 07:39
PROVIDERS: Internal Medicine; Admitting Provider Hospitalist; Emergency Provider Emergency Medicine; Family Provider Internal Medicine; PCP Internal Medicine; Visit Provider Student in an Organized Health Care Education/Training Program
DX: I13.0 Hypertensive heart and chronic kidney disease with heart failure and stage 1 through stage 4 chronic kidney disease, or unspecified chronic kidney disease (principal); I50.33 Acute on chronic diastolic (congestive) heart failure; J18.9 Pneumonia, unspecified organism; I48.19 Other persistent atrial fibrillation; Z68.41 Body mass index [BMI] 40.0-44.9, adult; E11.42 Type 2 diabetes mellitus with diabetic polyneuropathy; E66.9 Obesity, unspecified; F17.228 Nicotine dependence, chewing tobacco, with other nicotine-induced disorders; E78.5 Hyperlipidemia, unspecified; G47.33 Obstructive sleep apnea (adult) (pediatric); N40.0 Benign prostatic hyperplasia without lower urinary tract symptoms; R00.1 Bradycardia, unspecified; N18.3 Chronic kidney disease, stage 3 (moderate); Z79.4 Long term (current) use of insulin; Z79.01 Long term (current) use of anticoagulants; Z79.899 Other long term (current) drug therapy; Z79.2 Long term (current) use of antibiotics
CPT/HCPCS: 12345; 36415; 36416; 71045; 80048; 80053; 81001; 82962; 83735; 83880; 84100; 84145; 84484; 85025; 85610; 87040; 87086; 93005; 93306; 94640; 96372; 96375; 97110; 97162; 97530; 99283; C8924; J0360; J1815; J1940; J1956; J3490; Q9956

== ENCOUNTER 2019-06-29 06:00 | Outpatient (RCR) | payer OTHER, SELFPAY | END 2019-07-28 23:59 | disposition home or self-care (01) | LOC: MPT 06:00 | PROVIDERS: Family Provider Internal Medicine; PCP Internal Medicine; Referring Provider Nurse Practitioner Family; Visit Provider Internal Medicine | DX: M54.40 Lumbago with sciatica, unspecified side (principal) | CPT/HCPCS: 97110; 97112; 97164; 97530 ==

== ENCOUNTER → 2019-07-26 11:42 | Outpatient (BNVA) | payer OTHER, SELFPAY | PROVIDERS: Family Provider Internal Medicine; PCP Internal Medicine; Visit Provider Internal Medicine Cardiovascular Disease | DX: I50.9 Heart failure, unspecified (principal); I73.9 Peripheral vascular disease, unspecified; I50.32 Chronic diastolic (congestive) heart failure; F17.210 Nicotine dependence, cigarettes, uncomplicated; N18.2 Chronic kidney disease, stage 2 (mild); I15.8 Other secondary hypertension; E78.5 Hyperlipidemia, unspecified; G47.33 Obstructive sleep apnea (adult) (pediatric); E66.9 Obesity, unspecified; I48.11 Longstanding persistent atrial fibrillation; E11.42 Type 2 diabetes mellitus with diabetic polyneuropathy; Z79.4 Long term (current) use of insulin | CPT/HCPCS: 80048; 83735; 83880 ==

== ENCOUNTER 2019-07-29 06:00 | Outpatient (RCR) | payer OTHER, SELFPAY | END 2019-08-28 23:59 | disposition home or self-care (01) | LOC: MPT 06:00 | PROVIDERS: PCP Internal Medicine; Referring Provider Nurse Practitioner Family; Visit Provider Internal Medicine | DX: M54.5 Low back pain (principal) | CPT/HCPCS: 97110; 97112; 97530 ==

== ENCOUNTER 2019-08-02 06:00 | Outpatient (RCR) | payer OTHER, SELFPAY | END 2019-08-28 23:59 | disposition home or self-care (01) | LOC: SPT 06:00 | PROVIDERS: Family Provider Internal Medicine; PCP Internal Medicine; Referring Provider Nurse Practitioner Family; Visit Provider Nurse Practitioner Family | DX: I89.0 Lymphedema, not elsewhere classified (principal) | CPT/HCPCS: 97140; 97161 ==

== ENCOUNTER → 2019-08-17 12:23 | Outpatient (BNVA) | payer OTHER, SELFPAY | PROVIDERS: PCP Internal Medicine; Visit Provider Specialist | DX: M54.5 Low back pain (principal); M46.1 Sacroiliitis, not elsewhere classified; M48.061 Spinal stenosis, lumbar region without neurogenic claudication; E11.9 Type 2 diabetes mellitus without complications; G47.33 Obstructive sleep apnea (adult) (pediatric); Z79.01 Long term (current) use of anticoagulants | CPT/HCPCS: 20552; 99214; J1030; J3490 ==

== ENCOUNTER 2019-08-23 09:13 | Outpatient (CLI) | payer OTHER, SELFPAY ==
--- NOTE | 2019-08-23 09:00 | CT_ITS ---
WS: [id number] CT ABDOMEN AND PELVIS WITH AND WITHOUT CONTRAST HISTORY: GROSS HEMATURIA TECHNIQUE: Unenhanced 5 mm axial imaging first performed through the abdomen. Post contrast imaging t hrough the abdomen and pelvis. Oral contrast has not been provided. Sagittal and coronal reformats a re submitted. All CT scans at [facility] use at least one of these dose optimization tech niques: automated exposure control; mA and/or kV adjustment per patient size (includes targeted exams where dose is matched to clinical indication); or iterative reconstruction. CONTRAST: Visipaque 320; 95 mL IV. DLP: 5080.08 mGy.cm COMPARISON: 01/27/2019 Lung bases are clear. Mild pleural thickening and atelectasis at the LEFT lung base. Heart size is no rmal. Increased pericardial fat deposition. Scattered coronary artery calcifications and small hiatal hernia. Hepatic steatosis with no mass or bile duct dilatation. Pancreas, spleen and gallbladder and adrenal glands are negative. RIGHT kidney: Mild cortical thinning and atrophy of the RIGHT kidney measuring 10.7 cm in length. The re are several scattered cortical hypodensities for which most of these are too small to characterize . 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 There is mild perinephric stranding. Ovoid calcifi cation at the UP junction measures 9 mm. Not causing a significant obstruction at this time. Distal u reter is normal caliber. No significant delayed excretion from the RIGHT kidney. LEFT kidney: Mild atrophy and diffuse cortical thinning. Kidney measures 11.6 cm in length. Mild mustapha nephric stranding with no renal calcifications or obstruction. There are a few small hypodensities wh ich are too small to characterize. No mass identified. Ureter is normal caliber. Moderate atherosclerosis of the aorta. No aneurysm. Moderate calcifications continue into the common iliac arteries. There is at least mild stenosis of the LEFT common iliac artery. No free fluid or adenopathy within the abdomen or pelvis. The appendix is normal. There are numerous diverticula in the descending and sigmoid colon without acute diverticulitis. Inguinal canals are pat ent bilaterally. Urinary bladder is nondistended. Degenerative disc disease throughout the lumbar spine. No fractures. No osteoblastic or osteolytic jaspreet ne disease. CT/CT abdomen pelvis wo/w [id number] IMPRESSION: 1. Nonobstructing 9 mm ovoid calcification at the RIGHT UP junction. This calc ification was previously described in the lower pole of the RIGHT kidney on . Could be causing intermittent obstruction. No hydronephrosis at this t lily. 2. Mild cortical thinning of each kidney. 3. Descending and sigmoid diverticulosis without acute diverticulitis. 4. Atherosclerosis aorta and common iliac arteries. 5. Normal appendix.
[2019-08-23 10:58] LABS: Blood Urea Nitrogen 37 mg/dL (8-23); Glomerular Filtration Rate 50.1 mL/min (90-130)
[2019-08-23] MEDS: iodixanol 320 mg/mL 100mL Btl IV (11:33)
== END 2019-08-23 09:14 | disposition home or self-care (01) ==
LOC: RAD 09:19
PROVIDERS: Visit Provider Urology
DX: R31.0 Gross hematuria (principal); R39.9 Unspecified symptoms and signs involving the genitourinary system; N20.1 Calculus of ureter; F17.290 Nicotine dependence, other tobacco product, uncomplicated; K57.30 Diverticulosis of large intestine without perforation or abscess without bleeding; I70.0 Atherosclerosis of aorta; I70.8 Atherosclerosis of other arteries
CPT/HCPCS: 36415; 74178; 81001; 82565; 84520

== ENCOUNTER 2019-08-30 08:00 | Outpatient (CLI) | payer OTHER, SELFPAY | END 2019-09-06 11:00 | disposition home or self-care (01) | PROVIDERS: Referring Provider Nurse Practitioner Family; Visit Provider Thoracic Surgery (Cardiothoracic Vascular Surgery) | DX: I87.2 Venous insufficiency (chronic) (peripheral) (principal); L97.812 Non-pressure chronic ulcer of other part of right lower leg with fat layer exposed | CPT/HCPCS: 11042; 97110; 97530; 99203; 99212 ==

== ENCOUNTER 2019-09-12 08:16 | Outpatient (CLI) | payer OTHER, SELFPAY ==
--- NOTE | 2019-09-12 09:00 | XR_ITS ---
WS: [id number] XR KUB [id number] REASON FOR EXAM: Stone FINDINGS: In the right kidney and along the midportion there is noted a calcified density measures 9. 4 mm The left kidney shows a small area of calcification measures 3.11 mm. No dilatation of the kidneys are seen. The bladder was normal. XR/XR KUB [id number] IMPRESSION: Bilateral renal calculus the largest on the right side.
== END 2019-09-12 08:17 | disposition home or self-care (01) ==
PROVIDERS: PCP Internal Medicine; Visit Provider Urology
DX: N20.0 Calculus of kidney (principal)
CPT/HCPCS: 74018; 81001

== ENCOUNTER 2019-09-13 13:34 | Outpatient (CLI) | payer OTHER, SELFPAY | END 2019-09-13 13:35 | disposition home or self-care (01) | LOC: WOUND 13:37 | PROVIDERS: PCP Nurse Practitioner Family; Visit Provider Thoracic Surgery (Cardiothoracic Vascular Surgery) | DX: I87.2 Venous insufficiency (chronic) (peripheral) (principal); L97.812 Non-pressure chronic ulcer of other part of right lower leg with fat layer exposed | CPT/HCPCS: 11042 ==

== ENCOUNTER 2019-09-15 14:38 | Outpatient (CLI) | payer OTHER, SELFPAY ==
--- NOTE | 2019-09-15 15:00 | USCV_ITS ---
Giles Guillaume Age: 69 Gender: M : 1950 Exam Date: 09/15/2019 15:05 Ordering Phys: Alex Farmer DPM Technologist: [place]am [place] [facility] [place]ication: PVD RIGHT LEFT Pressure (mmHg) Waveform Pressure (mmHg) Waveform 103.00 High Thigh 121.00 108.00 Below Knee 94.00 125.00 TEXTILE BROKER 96.00 115.00 DPA 93.00 0.78 Ankle/Brachial Index 0.60 Pre-Exercise Toe Pressure 102.00 49.00 0.31 Pre-Exercise Toe/Brachial Index 0.64 FINDINGS Moderately diminished resting ABIs bilaterally Moderately diminished resting TBI on the right side Moderately diminished resting TIKI and slightly diminished resting TBI on the left side PVR waveforms showing loss of dicrotic notch and diminished amplitude bilaterally CONCLUSIONS The above features are suggestive of moderately severe peripheral arterial disease bilaterally Dr Refugio Kraus MD [facility] (Electronically Signed) Final Date: 16 September 2019 15:43 S
== END 2019-09-15 14:39 | disposition home or self-care (01) ==
LOC: US 14:39
PROVIDERS: PCP Nurse Practitioner Family; Visit Provider Podiatrist Foot & Ankle Surgery
DX: I73.9 Peripheral vascular disease, unspecified (principal)
CPT/HCPCS: 93923

== ENCOUNTER 2019-09-20 10:21 | Outpatient (CLI) | payer OTHER, SELFPAY | END 2019-09-20 10:22 | disposition home or self-care (01) | LOC: WOUND 10:22 | PROVIDERS: PCP Nurse Practitioner Family; Visit Provider Thoracic Surgery (Cardiothoracic Vascular Surgery) | DX: Z09 Encounter for follow-up examination after completed treatment for conditions other than malignant neoplasm (principal) | CPT/HCPCS: 99212 ==

== ENCOUNTER 2019-10-06 13:19 | Outpatient (CLI) | payer OTHER, SELFPAY | END 2019-10-06 13:20 | disposition home or self-care (01) | LOC: WOUND 13:20 | PROVIDERS: PCP Nurse Practitioner Family; Visit Provider Surgery | DX: E11.622 Type 2 diabetes mellitus with other skin ulcer (principal); L97.822 Non-pressure chronic ulcer of other part of left lower leg with fat layer exposed | CPT/HCPCS: 97597; 97598 ==

== ENCOUNTER 2019-10-12 10:31 | Outpatient (CLI) | payer OTHER, SELFPAY | END 2019-10-12 10:32 | disposition home or self-care (01) | LOC: WOUND 10:36 | PROVIDERS: PCP Nurse Practitioner Family; Visit Provider Thoracic Surgery (Cardiothoracic Vascular Surgery) | DX: E11.622 Type 2 diabetes mellitus with other skin ulcer (principal); L97.822 Non-pressure chronic ulcer of other part of left lower leg with fat layer exposed | CPT/HCPCS: 11042; 11045 ==

== ENCOUNTER 2019-10-14 07:47 | Outpatient (CLI) | payer OTHER, SELFPAY ==
--- NOTE | 2019-10-14 | USCV_ITS ---
Giles Guillaume Age: 69 Gender: M : 1950 Exam Date: 10/14/2019 08:15 Ordering Phys: Lopez Rodriguez MD Technologist: LEONEL TOMAS [place]am [place] [facility] [place] Indication: PAIN REDNESS NON HEALING ULCER DVT PROCEDURES: Venous duplex imaging was performed in only the left lower extremity. The following venous structures were evaluated: common femoral vein, profunda vein, proximal portion of the greater saphenous vein, superficial femoral vein, and the popliteal vein. In addition, the posterior tibial and peroneal trunk were evaluated. Serial compression, augmentation maneuvers, and spectral Doppler flow evaluation were performed. FINDINGS: Normal 2-D Doppler and augmentation and compressibility throughout the lower extremity venous structures. Additional imaging through the proximal calf veins also reveals no thrombus. Limited evaluation of the greater saphenous vein is patent with no thrombus.. Hypoechoic areas are noted in the subcutaneous tissue CONCLUSIONS No evidence of DVT in the above-mentioned identifiable veins. Features of fluid retention/edema in the left lower extremity. Dr Refugio Kraus MD [facility] (Electronically Signed) Final Date: 14 October 2019 17:55 S
--- NOTE | 2019-10-14 07:58 | USCV_ITS ---
Giles Guillaume Age: 69 Gender: M : 1950 Exam Date: 10/14/2019 08:22 Ordering Phys: Lopez Rodriguez MD Technologist: LEONEL TOMAS [place] [facility] [place] Indication: HISTORY: PROCEDURES: FINDINGS: There is no evidence of left deep vein thrombosis. No evidence of superficial thrombosis in the left saphenous system. No evidence of reflux was noted in theLeft deep venous system. No venous reflux noted in theLeftT greater saphenous vein. No venous reflux noted in small saphenous vein. CONCLUSIONS No evidence of DVT in the above-mentioned identifiable veins. No significant venous reflux in the above-mentioned veins Dr Refugio Kraus MD [facility] (Electronically Signed) Final Date: 14 October 2019 18:02 S
== END 2019-10-14 07:48 | disposition home or self-care (01) ==
LOC: RAD 07:48
PROVIDERS: PCP Nurse Practitioner Family; Visit Provider Surgery
DX: M79.605 Pain in left leg (principal); L53.9 Erythematous condition, unspecified; L97.929 Non-pressure chronic ulcer of unspecified part of left lower leg with unspecified severity
CPT/HCPCS: 93971

== ENCOUNTER → 2019-10-17 11:55 | Outpatient (BNVA) | payer OTHER, SELFPAY | PROVIDERS: PCP Nurse Practitioner Family; Visit Provider Internal Medicine Cardiovascular Disease | DX: I73.9 Peripheral vascular disease, unspecified (principal); I50.32 Chronic diastolic (congestive) heart failure; E11.22 Type 2 diabetes mellitus with diabetic chronic kidney disease; I15.8 Other secondary hypertension; N18.2 Chronic kidney disease, stage 2 (mild); I48.11 Longstanding persistent atrial fibrillation; E78.5 Hyperlipidemia, unspecified; G47.33 Obstructive sleep apnea (adult) (pediatric); E66.9 Obesity, unspecified; E11.42 Type 2 diabetes mellitus with diabetic polyneuropathy; Z79.4 Long term (current) use of insulin | CPT/HCPCS: 80053; 83735; 83880 ==

== ENCOUNTER 2019-10-19 10:22 | Outpatient (CLI) | payer OTHER, SELFPAY | END 2019-10-19 10:23 | disposition home or self-care (01) | LOC: WOUND 10:22 | PROVIDERS: PCP Nurse Practitioner Family; Visit Provider Emergency Medicine | DX: E11.622 Type 2 diabetes mellitus with other skin ulcer (principal); L97.822 Non-pressure chronic ulcer of other part of left lower leg with fat layer exposed | CPT/HCPCS: 11042; 11045 ==

== ENCOUNTER 2019-10-26 09:59 | Outpatient (CLI) | payer OTHER, SELFPAY | END 2019-10-26 10:00 | disposition home or self-care (01) | LOC: WOUND 10:01 | PROVIDERS: PCP Nurse Practitioner Family; Visit Provider Emergency Medicine | DX: E11.622 Type 2 diabetes mellitus with other skin ulcer (principal); L97.822 Non-pressure chronic ulcer of other part of left lower leg with fat layer exposed | CPT/HCPCS: 11042 ==

== ENCOUNTER → 2019-10-31 12:17 | Outpatient (BNVA) | payer OTHER, SELFPAY | PROVIDERS: PCP Nurse Practitioner Family; Visit Provider Internal Medicine Cardiovascular Disease | DX: I50.32 Chronic diastolic (congestive) heart failure (principal); I73.9 Peripheral vascular disease, unspecified; I48.11 Longstanding persistent atrial fibrillation; I15.8 Other secondary hypertension; N18.2 Chronic kidney disease, stage 2 (mild); E78.5 Hyperlipidemia, unspecified; G47.33 Obstructive sleep apnea (adult) (pediatric); E66.9 Obesity, unspecified; E11.42 Type 2 diabetes mellitus with diabetic polyneuropathy; Z79.4 Long term (current) use of insulin | CPT/HCPCS: 80053; 83735; 83880 ==

== ENCOUNTER 2019-11-01 15:54 | Observation (INO) | payer OTHER, SELFPAY ==
[2019-11-01] VITALS (7 sets, daily range): BP systolic 114–169; BP diastolic 68–85; PULSE 76–92; RESP 15–24; TEMP 36.8; O2SAT 94–98; BMI 39.5
--- NOTE | 2019-11-01 16:31 | XRR_ITS ---
PROCEDURE INFORMATION: Exam: XR Chest, 1 View Exam date and time: 11/01/2019 5:36 PM Age: 69 years old Clinical indication: Dyspnea and shortness of breath TECHNIQUE: Imaging protocol: XR of the chest Views: 1 view. COMPARISON: CR XR chest 1V portable [id number] 06/24/2019 5:12 AM FINDINGS: Lungs: Mild basilar airspace disease/interstitial prominence right slightly greater than left. Mildly improved. Pleural space: Unremarkable. No pleural effusion. No pneumothorax. Heart/Mediastinum: Unremarkable. No cardiomegaly. Bones/joints: Unremarkable. XR/XR chest 1V portable [id number] IMPRESSION: Mild basilar airspace disease/interstitial prominence right slightly greater than left. Mildly improved.
--- NOTE | 2019-11-01 16:32 | ECG_ITS ---
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 Measurements Intervals [place] Rate: 84 P: AR: -1 QRS: 63 QRSD: 139 T: 20 QT: 399 QTc: 472 Interpretive Statements ATRIAL FIBRILLATION RIGHT BUNDLE BRANCH BLOCK [120+ ms QRS DURATION, UPRIGHT V1, 40+ ms S IN I/aVL/V4/V5/V6] Compared to ECG 06/24/2019 10:23:43 Right bundle-branch block now present Left-axis deviation no longer present Intraventricular conduction delay no longer present Electronically Signed On 11-01-2019 21:43:56 CDT by Misty Nickerson M.D. [id number]
[2019-11-01 17:02] LABS: Basophils # 0.1 10^3/uL (0.0-0.1); Basophils % 0.4 %; Eosinophils # 0.1 10^3/uL (0.0-0.8); Eosinophils % 0.7 %; Hematocrit 40.2 % (42.0-52.0); Hemoglobin 13.5 g/dL (11.7-16.6); Lymphocytes # 2.8 10^3/uL (0.8-4.8); Lymphocytes % 22.9 %; Mean Corpuscular HGB Conc 33.6 g/dL (30.0-36.0); Mean Corpuscular Hemoglobin 29.7 pg (28.0-34.0); Mean Corpuscular Volume 88.4 fL (80-94); Mean Platelet Volume 10.5 fL (7.4-10.4); Monocytes # 0.9 10^3/uL (0.2-0.9); Monocytes % 7.1 %; Neutrophils # 8.34 10^3/uL (1.8-7.7); Neutrophils % 68.7 %; Nucleated Red Blood Cells % 0 %; Platelet Count 189 10^3/cmm (130-400); Red Blood Count 4.55 10^6/uL (4.1-5.3); Red Cell Distribution Width 13.1 % (12.1-15.1); White Blood Count 12.2 10^3/uL (4.0-10.0)
[2019-11-01 17:24] LABS: Troponin(5th) Baseline 48 ng/L (0-15)
[2019-11-01 17:25] LABS: Add Urine Microscopic? YES; Bilirubin Urine Neg (NEGATIVE); Blood Urine Neg (Negative); Glucose Urine UA Norm (Normal); Ketones Urine Negative (Negative); Leukocyte Esterase Urine Negative (Negative); Nitrate Urine Negative (Negative); Protein Urine Trace (Negative); Urine Appearance Clear (CLEAR); Urine Color Yellow (Yellow); Urobilinogen Urine Norm (Negative); pH Urine 5 (5-7)
[2019-11-01] MEDS: bumetanide 0.25 mg/mL SDV 10 mL 2 MG IV (17:28)
[2019-11-01 17:36] LABS: Add Urine Culture? No; Bacteria Urine TRACE; RBC Urine 0-4 /hpf (0-2); Squamous Epithelial Cell Urine 0-4 (0-5); WBC Urine 0-4 /hpf (0-5)
[2019-11-01 18:09] LABS: NT Pro B Type Natriuretic Pept 1491 pg/mL (0-125); Procalcitonin 0.14 ng/mL (0-0.5)
[2019-11-01 18:20] LABS: Alanine Aminotransferase 23 U/L (0-41); Alkaline Phosphatase 84 IU/L (40-130); Anion Gap 20.5 (5-19); Aspartate Amino Transferase 30 U/L (0-40); Blood Urea Nitrogen 19 mg/dL (8-23); C Reactive Protein 10.6 mg/L (0.0-4.9); Calcium 8.6 mg/dL (8.5-10.5); Carbon Dioxide 21 mmol/L (22-29); Chloride 103 mmol/L (98-107); Globulin 2.8 g/dL (1.3-4.6); Glomerular Filtration Rate 59.9 mL/min (90-130); Glucose 130 mg/dL (65-115); Osmolality Calculated 290 mOsm/kg (285-295); Potassium 3.5 mmol/L (3.5-5.1); Sodium 141 mmol/L (136-145); Total Bilirubin 0.5 mg/dL (0.15-1.2); Total Protein 6.8 g/dL (6.6-8.7)
--- NOTE | 2019-11-01 18:32 | ECG_ITS ---
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 Measurements Intervals [place] Rate: 82 P: [place]: -1 QRS: 48 QRSD: 137 T: 27 QT: 420 QTc: 491 Interpretive Statements ATRIAL FIBRILLATION RIGHT BUNDLE BRANCH BLOCK [120+ ms QRS DURATION, UPRIGHT V1, 40+ ms S IN I/aVL/V4/V5/V6] SEPTAL MYOCARDIAL INFARCTION , OF INDETERMINATE AGE [40+ ms Q WAVE IN V1/V2] Compared to ECG 11/01/2019 16:54:39 Myocardial infarct finding now present Electronically Signed On 11-01-2019 21:45:50 CDT by Misty Nickerson M.D. [id number]
--- NOTE | 2019-11-01 18:37 | ED_ITS ---
HPI - General Adult General: Chief complaint: General Medical Stated complaint: chf/fluid build up Time Seen by Provider: 11/01/19 16:20 History of Present Illness: HPI narrative: This patient is a 69-year-old male presenting today with complaints of fluid all over him. He complains of increased swelling in his legs, groin, abdomen, chest and back. Said this is been getting progressively worse over the past month. His doctors have tried adjusting his medications and he was up to 200 mg a day on the Lasix. He said that was not really helping. He had been on metolazone previously in addition to the Lasix but he said the [facility] stopped supplying it for him and he is not sure why. He was feeling terrible in the past few days and so decrease the Lasix back down to 40 a day. He thought the Lasix was making him feel bad. He also has had some episodes of incontinence of diarrhea which she says is happened before when he takes too much Lasix. He saw Dr. Nickerson yesterday and she wanted him to come to the emergency room to be checked and at that time. He had things to do at home and returns now based on her advice. He has had some chest pain off and on. He is quite short of breath with any exertion or laying flat. He is having difficulty urinating because of the swelling around his penis. He also complains of pain on his bottom which just started in the past few days. He has a history of CHF and atrial fibrillation. Onset (ago): month(s) (1) Location: chest, back, abdomen, genitals, buttocks, upper extremity and lower extremity Severity: severe and similar to prior episodes Relieving factors: none Associated symptoms: Reports chest pain; Deny dyspnea, headache(s), malaise, nausea, rash or vomiting Review of Systems General: Reports: 10 or more systems reviewed and unremarkable except in HPI and below Const: Denies: fever(s), chills, fatigue or malaise Eyes: Denies: change in vision ENMT: Denies: odynophagia Card: Reports: chest pain, irregular heart rhythm, swelling of feet/ankles, lightheadedness, dyspnea on exertion and orthopnea Resp: Denies: dyspnea, productive cough or non-productive cough GI: Reports: abdominal pain, diarrhea and fecal incontinence; Denies: nausea or vomiting : Denies: flank pain Musc: Denies: neck pain or back pain Skin/Breast: Reports: skin tenderness (Sacral area) and non-healing lesions (Left lower extremity, followed by wound care); Denies: rash Neuro: Denies: headache(s), numbness in extremities or weakness in extremities Bharat/Lymph: Denies: easy bruising or easy bleeding PFSH ED PFSH: Medical History Atrial fibrillation chronic, on eliquis BPH NOS w/o ur obs/LUTS follows with [facility] Chronic kidney disease Congestive heart failure CVA (cerebral vascular accident) residual right weakness Diabetes mellitus, type II victoza & lantus Hyperlipidemia Hypertension Obstructive sleep apnea not on treatment by choice Osteoarthritis PVD (peripheral vascular disease) Renal calculus, right follows with [facility] Surgical History No pertinent past surgical history Family History Mother , 87 Diabetes CAD (coronary artery disease) Hypertension Father , 60 No problems noted. Social History Smoking and tobacco status: light tobacco smoker smokeless tobacco Alcohol intake: former Year of sobriety/quit date alcohol: 26 y Former alcohol use details: heavy use, 5 DWI's Marital status: Single Current occupational status: retired History of recent travel: No Physical Exam Const: COMMON NORMALS: patient oriented x3, no limitations and alert GENERAL APPEARANCE: cooperative, in distress and Edematous NUTRITIONAL APPEARANCE: obese morbidly obese HENMT: HEAD & SCALP: normal to inspection FACE & SINUS: normal facial exam Eye: GENERAL EYE: appearance normal, both eyes and all related structures Neck/C-Spine: COMMON NORMALS: supple, no meningeal signs and no JVD Chest: COMMONS NORMALS: normal inspection of the chest Resp: COMMON NORMALS: normal respiratory effort AUSCULTATION: diminished lung sounds Cardio: COMMON NORMALS: no JVD, regular rate, regular rhythm and No murmurs present (Cardio) RATE: regular rate RHYTHM: regular rhythm GI: COMMON NORMALS: Normal to inspection, nondistended, normoactive bowel sounds present, Soft to palpation and non-tender INSPECTION: Yes normal to inspection AUSCULTATION: Yes normoactive bowel sounds PALPATION: Yes Soft to palpation RECTAL EXAM: Yes visual inspection normal (Noninflamed, nonthrombosed external hemorrhoids. There is a stage I sacral decubitus on the right side of the upper gluteal cleft) : MALE GROIN/PERINEUM EXAM: Yes edema PENIS: uncircumcised Back/Pelvis: COMMON NORMALS: thoracic and lumbar spine normal to inspection Extremity: NARRATIVE EXTREMITY EXAM: Diffuse edema, wound on the left lower medial leg Neuro: COMMON NORMALS: patient oriented x3, moves all extremities, no focal motor deficits and no sensory deficits noted SENSORIUM/ORIENTATION: Yes alert MENINGEAL SIGNS: Yes no meningeal signs Psych: COMMON NORMALS: mental status grossly normal, cooperative and normal affect Skin: COMMON NORMALS: no rashes or lesions noted and turgor normal GENERAL SKIN EXAM: no rashes or lesions noted and turgor normal Course ED course: Patient has been on high doses of diuretics at home without relief. He has continued to worsen. I think he will need to come in for IV diuretics. I gave him initially 2 mg of IV Bumex which did not seem to really do very much. After that I gave him 100 of IV Lasix. He is uncomfortable but not in any respiratory distress. He will be admitted for further diuresis and management. Vital Signs: Vital signs: Vital Signs Temperature 98.3 F 11/01/19 16:12 Pulse Rate 90 11/01/19 20:00 Respiratory Rate 15 11/01/19 20:00 Blood Pressure 152/83 11/01/19 20:00 Pulse Oximetry 96 11/01/19 20:00 [facility] - General Adult Lab Data: Labs: Lab Results 11/01/19 11/01/19 11/01/19 Range/Units 16:38 16:54 16:54 WBC 12.2 H (4.0-10.0) 10^3/ uL RBC 4.55 (4.1-5.3) 10^6/u L Hgb 13.5 (11.7-16.6) g/dL Hct 40.2 L (42.0-52.0) % MCV 88.4 (80-94) fL MCH 29.7 (28.0-34.0) pg MCHC 33.6 (30.0-36.0) g/dL RDW 13.1 (12.1-15.1) % Plt Count 189 (130-400) 10^3/c mm MPV 10.5 H (7.4-10.4) fL Neut % (Auto) 68.7 % Lymph % (Auto) 22.9 % [place] % (Auto) 7.1 % Eos % (Auto) 0.7 % Baso % (Auto) 0.4 % Neut # (Auto) 8.34 H (1.8-7.7) 10^3/u L Lymph # (Auto) 2.8 (0.8-4.8) 10^3/u L [place] # (Auto) 0.9 (0.2-0.9) 10^3/u L Eos # (Auto) 0.1 (0.0-0.8) 10^3/u L Baso # (Auto) 0.1 (0.0-0.1) 10^3/u L Nucleated RBC % (a uto) 0 % Nucleated RBCs # 0.0 /100WBC Sodium 141 (136-145) mmol/L Potassium 3.5 (3.5-5.1) mmol/L Chloride 103 (98-107) mmol/L Carbon Dioxide 21 L (22-29) mmol/L Anion Gap 20.5 H (5-19) BUN 19 (8-23) mg/dL Creatinine 1.2 (0.7-1.2) mg/dL GFR Calculation 59.9 L (90-130) mL/min Glucose 130 H (65-115) mg/dL Calculated Osmolal ity 290 (285-295) mOsm/k g Calcium 8.6 (8.5-10.5) mg/dL Total Bilirubin 0.5 (0.15-1.2) mg/dL AST 30 (0-40) U/L ALT 23 (0-41) U/L Alkaline Phosphata se 84 (40-130) IU/L Troponin T Baselin e (0-15) ng/L Troponin T 120 Min [place] (0-15) ng/L Delta Troponin T (0-10) ABS# C-Reactive Protein 10.6 H (0.0-4.9) mg/L NT-Pro-B Natriuret Pep 1491 H (0-125) pg/mL Total Protein 6.8 (6.6-8.7) g/dL Albumin 4.0 (3.5-5.2) g/dL Globulin 2.8 (1.3-4.6) g/dL Procalcitonin 0.14 (0-0.5) ng/mL Urine Color Yellow (Yellow) Urine Appearance Clear (CLEAR) Urine pH 5 (5-7) Ur Specific Gravit y 1.010 (1.005-1.030) Urine Protein Trace (Negative) Urine Glucose (UA) Norm (Normal) Urine Ketones Negative (Negative) Urine Blood Neg (Negative) Urine Nitrate Negative (Negative) Urine Bilirubin Neg (NEGATIVE) Urine Urobilinogen Norm (Negative) mg/dL Ur Leukocyte Fariha ase Negative (Negative) Urine RBC 0-4 H (0-2) /hpf Urine WBC 0-4 H (0-5) /hpf Ur Squamous Epith Cells 0-4 H (0-5) Amorphous Sediment Not Reportable Urine Bacteria Trace (NONE) 11/01/19 11/01/19 Range/Units 16:54 18:57 WBC (4.0-10.0) 10^3/ uL RBC (4.1-5.3) 10^6/u L Hgb (11.7-16.6) g/dL Hct (42.0-52.0) % MCV (80-94) fL MCH (28.0-34.0) pg MCHC (30.0-36.0) g/dL RDW (12.1-15.1) % Plt Count (130-400) 10^3/c mm MPV (7.4-10.4) fL Neut % (Auto) % Lymph % (Auto) % [place] % (Auto) % Eos % (Auto) % Baso % (Auto) % Neut # (Auto) (1.8-7.7) 10^3/u L Lymph # (Auto) (0.8-4.8) 10^3/u L [place] # (Auto) (0.2-0.9) 10^3/u L Eos # (Auto) (0.0-0.8) 10^3/u L Baso # (Auto) (0.0-0.1) 10^3/u L Nucleated RBC % (a uto) % Nucleated RBCs # /100WBC Sodium (136-145) mmol/L Potassium (3.5-5.1) mmol/L Chloride (98-107) mmol/L Carbon Dioxide (22-29) mmol/L Anion Gap (5-19) BUN (8-23) mg/dL Creatinine (0.7-1.2) mg/dL GFR Calculation (90-130) mL/min Glucose (65-115) mg/dL Calculated Osmolal ity (285-295) mOsm/k g Calcium (8.5-10.5) mg/dL Total Bilirubin (0.15-1.2) mg/dL AST (0-40) U/L ALT (0-41) U/L Alkaline Phosphata se (40-130) IU/L Troponin T Baselin e 48 H (0-15) ng/L Troponin T 120 Min [place] 47.23 H (0-15) ng/L Delta Troponin T -0.77 L (0-10) ABS# C-Reactive Protein (0.0-4.9) mg/L NT-Pro-B Natriuret Pep (0-125) pg/mL Total Protein (6.6-8.7) g/dL Albumin (3.5-5.2) g/dL Globulin (1.3-4.6) g/dL Procalcitonin (0-0.5) ng/mL Urine Color (Yellow) Urine Appearance (CLEAR) Urine pH (5-7) Ur Specific Gravit y (1.005-1.030) Urine Protein (Negative) Urine Glucose (UA) (Normal) Urine Ketones (Negative) Urine Blood (Negative) Urine Nitrate (Negative) Urine Bilirubin (NEGATIVE) Urine Urobilinogen (Negative) mg/dL Ur Leukocyte Fariha ase (Negative) Urine RBC (0-2) /hpf Urine WBC (0-5) /hpf Ur Squamous Epith Cells (0-5) Amorphous Sediment Urine Bacteria (NONE) Discharge Plan Discharge Prescriptions: No Action Ozempic 1 mg/dose (2 mg/1.5 mL) pen injector 1 mg SUBCUT Q7D RF: 0 furosemide 40 mg tablet 40 mg PO DAILY RF: 0 potassium chloride 20 mEq tablet extended release 40 meq PO BID 3 Days Qty: 12 RF: 0 metolazone 2.5 mg tablet 2.5 mg PO DAILY Qty: 30 RF: 4 bumetanide 2 mg tablet 2 mg PO BID Qty: 60 RF: 3 pregabalin 150 mg capsule 150 mg PO BID RF: 0 tamsulosin 0.4 mg capsule 0.4 mg PO BEDTIME RF: 0 losartan 100 mg tablet 100 mg PO DAILY RF: 0 Eliquis 5 mg tablet 5 mg PO BID RF: 0 tramadol 50 mg tablet 50 mg PO Q6H PRN (Reason: pain) Qty: 20 RF: 0 multivitamin Tablet 1 tab PO DAILY RF: 0 cholecalciferol (vitamin D3) [Vitamin D3] 2,000 unit Tablet 2,000 unit PO DAILY RF: 0 Lantus U-100 Insulin 61 units SUBCUT BEDTIME RF: 0 isosorbide mononitrate 30 mg Tablet Extended Release 24 Hr 60 mg PO DAILY Qty: 30 RF: 0 amlodipine 10 mg Tablet 10 mg PO DAILY Qty: 30 RF: 0 clonidine HCl 0.1 mg Tablet 0.1 mg PO BID RF: 0 Miralax 17 gram Powder In Packet 17 g PO DAILY PRN (Reason: Constipation) RF: 0 hydrocodone-acetaminophen 10-325 mg Tablet 1 tab PO BID PRN (Reason: Pain) RF: 0 capsaicin 0.025 % Cream 1 applic TOPICAL QID RF: 0 ammonium lactate 5 % Lotion 1 applic TOPICAL BID RF: 0 fluticasone propionate 50 mcg/actuation [place],Suspension 1 spray INTRANASAL DAILY RF: 0 rosuvastatin 10 mg Tablet 10 mg PO DAILY RF: 0 ipratropium-albuterol 20-100 mcg/actuation Mist 1 puff INHALATION Q6H PRN (Reason: Shortness Of Breath) RF: 0 finasteride 5 mg tablet 5 mg PO DAILY RF: 0 Coding Level of Care Code ED Marketing Analytics Specialist for Yris Tee
[2019-11-01] MEDS: FUROsemide 10 mg/mL SDV 10mL 100 MG IVP (19:24)
[2019-11-01 19:26] LABS: Troponin 5 2HR 47.23 ng/L (0-15)
[2019-11-01 19:27] LABS: Troponin 5 2HR Delta -0.77 ABS# (0-10)
[2019-11-01 22:14] LABS: Glucose Point of Care 130 mg/dL (70-110)
--- NOTE | 2019-11-01 22:32 | ECG_ITS ---
[facility] Test Date: 2019-11-01 Pat Name: Giles Guillaume Department: Room: 254 Gender: Male Monorail Hooker: : 1950 Requested By: Abby Briggs Order Number: [id number] Shelton MD: Kervin Segundo M.D. Measurements Intervals [place] Rate: 83 P: [place]: -1 QRS: 50 QRSD: 130 T: 38 QT: 410 QTc: 482 Interpretive Statements ATRIAL FIBRILLATION WITH VENTRICULAR PREMATURE COMPLEXES RIGHT VENTRICULAR CONDUCTION DELAY [RSR (QR) IN V1/V2] Compared to ECG 11/01/2019 16:54:39 Ventricular premature complex(es) now present Electronically Signed On 11-02-2019 18:17:11 CDT by Kervin Segundo M.D. [id number] f
[2019-11-01 23:17] LABS: Troponin 5 6HR 51.76 ng/L (0-15); Troponin 5 6HR Delta 3.76 ng/L (0-12)
--- NOTE | 2019-11-01 23:22 | PM.HP ---
Providers/Chief Complaint Admitting Physician: Demetrio Hurtado MD Primary Care Provider: IRMA Soto Chief Complaint: chf/fluid build up History of Present Illness Giles Guillaume is a 69 year old male that presents to the emergency department complaints of shortness of breath. History is very difficult to obtain. He reports significant swelling over the last year, which she reports Lasix does not always work for. He has been on higher and higher doses of Lasix, but recently decreased it back down as he thinks he urinates about the same amount no matter what. He also complains of leg pain, back pain. He reports some chest discomfort that is rather chronic. He goes off on many tangents during the history. He denies any fever, cough or COVID exposure. 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 At that visit it appears he was changed from Lasix to Bumex and Zaroxolyn for significant weight gain and fluid retention, however, I do not believe he is done this. He basically relates that he does what he thinks is best in regards to the doses. While in the emergency department, he received 100 mg of Lasix and 2 mg of Bumex IV Review of Systems General: Reports: 10 or more systems reviewed and unremarkable except in HPI and below Const: Denies: fever(s) Eyes: Denies: change in vision ENMT: Denies: throat pain Card: Reports: chest pain, swelling of feet/ankles and dyspnea on exertion Resp: Reports: dyspnea GI: Denies: abdominal pain : Denies: flank pain Musc: Reports: back pain and extremity pain Skin/Breast: Denies: rash Neuro: Denies: headache(s) Psych: Denies: anxiety Endo: Reports: polyuria Bharat/Lymph: Denies: easy bruising All/Imm: Denies: urticaria Medications/Allergies Home Medications Medication Instructions Recorded Confirmed Last Taken Type tramadol 50 mg PO Q6H PRN #20 tab 05/31/19 11/01/19 Unknown Rx apixaban 5 mg tablet 5 mg PO BID 06/22/19 11/01/19 11/01/19 History losartan 100 mg tablet 100 mg PO DAILY 06/22/19 11/01/19 11/01/19 History pregabalin 150 mg capsule 150 mg PO BID 06/22/19 11/01/19 11/01/19 History tamsulosin 0.4 mg capsule 0.4 mg PO BEDTIME 06/22/19 11/01/19 10/31/19 History Lantus U-100 Insulin 61 units SUBCUT BEDTIME 06/24/19 11/01/19 10/31/19 History cholecalciferol (vitamin D3) 2,000 unit PO DAILY 06/24/19 11/01/19 11/01/19 History [Vitamin D3] multivitamin 1 tab PO DAILY 06/24/19 11/01/19 11/01/19 History amlodipine 10 mg PO DAILY #30 tab 06/27/19 11/01/19 10/25/19 Rx isosorbide mononitrate 60 mg PO DAILY #30 tab 06/27/19 11/01/19 11/01/19 Rx semaglutide 1 mg/dose (2 mg/1.5 1 mg SUBCUT Q7D 08/23/19 11/01/19 10/31/19 History mL) subcutaneous pen injector bumetanide 2 mg tablet 2 mg PO BID #60 tab 10/31/19 11/01/19 Unknown Rx furosemide 40 mg tablet 40 mg PO DAILY 10/31/19 11/01/19 11/01/19 History metolazone 2.5 mg tablet 2.5 mg PO DAILY #30 tab 10/31/19 11/01/19 Unknown Rx potassium chloride 20 mEq 40 meq PO BID 3 Days #12 tab 10/31/19 11/01/19 11/01/19 Rx tablet,extended release ammonium lactate 1 applic TOPICAL BID 11/01/19 11/01/19 Unknown History capsaicin 1 applic TOPICAL QID 11/01/19 11/01/19 Unknown History clonidine HCl 0.1 mg PO BID 11/01/19 11/01/19 Unknown History finasteride 5 mg PO DAILY 11/01/19 11/01/19 10/31/19 History fluticasone propionate 1 spray INTRANASAL DAILY 11/01/19 11/01/19 Unknown History hydrocodone-acetaminophen 1 tab PO BID PRN 11/01/19 11/01/19 10/25/19 History ipratropium-albuterol 1 puff INHALATION Q6H PRN 11/01/19 11/01/19 Unknown History polyethylene glycol 3350 [Miralax] 17 g PO DAILY PRN 11/01/19 11/01/19 Unknown History rosuvastatin 10 mg PO DAILY 11/01/19 11/01/19 10/31/19 History Allergies Allergy/AdvReac Type Severity Reaction Status Date / Time aspirin Allergy ADR-Nausea Verified 08/30/19 09:45 PFSH Acute PFSH: Medical History (Updated 11/02/19 @ 04:18 by Demetrio Hurtado MD) Atrial fibrillation chronic, on eliquis BPH NOS w/o ur obs/LUTS follows with [facility] Chronic kidney disease Congestive heart failure Last echocardiogram 06/16 demonstrated significantly low EF. Contrast study and follow-up demonstrated normal EF Coronary artery disease Evaluated in [place], patient reports 55% narrowing unknown vessel no stent or angioplasty done CVA (cerebral vascular accident) residual right weakness Diabetes mellitus, type II victoza & lantus Hyperlipidemia Hypertension Obstructive sleep apnea not on treatment by choice Osteoarthritis PVD (peripheral vascular disease) Renal calculus, right follows with [facility] Surgical History No pertinent past surgical history Family History Mother , 87 Diabetes CAD (coronary artery disease) Hypertension Father , 60 No problems noted. Social History Smoking and tobacco status: light tobacco smoker smokeless tobacco Alcohol intake: former Year of sobriety/quit date alcohol: 25 y Former alcohol use details: heavy use, 5 DWI's Marital status: Single Current occupational status: retired History of recent travel: No Vitals/I&O/Wt Last Vital Signs Temp 98.3 F 11/01/19 16:12 Pulse 87 11/01/19 20:53 Resp 20 H 11/01/19 20:53 BP 152/83 11/01/19 20:53 Pulse Ox 98 11/01/19 20:53 Weight last 48 hrs Weight 136.078 kg Physical Exam Narrative: EXAM NARRATIVE: General exam demonstrates a white male, with no obvious respiratory distress HEENT: Pupils equally round. Oropharynx clear. Neck is supple no lymphadenopathy or thyromegaly Cardiovascular regular rate and rhythm, heart sounds distant, no murmur Lungs clear. No crackles. Diminished breath sounds are noted bilaterally Abdomen is obese soft with positive bowel sounds. was deferred Extremities show 1-2+ edema. Ulcer noted left ayala area likely related to edema/venous stasis Back demonstrates stage II decubitus is noted sacral region. Skin without rash Neuro no focal deficits Data : 11/01/19 16:54 11/01/19 16:54 Other data: Chest x-ray by my read cardiomegaly, mild congestion. Improved from previous. Troponin 48, with repeated showing no significant delta BNP 1491 CRP 10.6 Procalcitonin normal LFTs normal Urine negative EKG demonstrating atrial fibrillation, normal axis, right bundle branch block, no acute changes A&P Assessment and plan (1) Congestive heart failure: Per last evaluation in May his EF was normal on a contrast study and I suspect his congestive heart failure is diastolic. From a respiratory standpoint he did not appear greatly decompensated when I evaluated him, and was able to lay relatively flat. Of note, he does weigh 11 kg less than he did in May. For now we will diurese with IV Lasix 80 mg every 12 hours Monitor renal function closely He seems significantly dissatisfied with how he feels and his persistent heart failure symptoms, elevated weight and edema. Cardiology consultation could be entertained. I also suspect he is noncompliant with his diuretic treatment. Fluid restriction Status: Chronic Qualifiers: Heart failure chronicity: chronic Heart failure type: diastolic Qualified Code(s): I50.32 - Chronic diastolic (congestive) heart failure (2) Elevated troponin: Type II elevation Status: Acute (3) Obesity: I believe this is contributing greatly to his symptoms Status: Chronic Qualifiers: Obesity type: unspecified obesity type Additional A&P Information Stage II decubitus, sacrum. Discussed reducing pressure, keep weight off the area, increase activity Left lower extremity ulcer, suspect venous stasis although he has history of peripheral vascular disease as well. Peripheral vascular disease Coronary artery disease. Patient reports evaluation 1 year ago demonstrating 55% lesion unknown vessel evaluated in [place]. No intervention was recommended. Continue statin, Imdur. Not on beta-angela secondary to bradycardia noted on previous stay. Not on aspirin secondary to allergy. Type 2 diabetes. Sliding scale insulin will be instituted. Lantus, slightly lower than home dose History of atrial fibrillation, rate controlled. Continue Eliquis Hypertension, continue home medications Multiple other medical problems as listed in past medical history Full code Eliquis will suffice for DVT prophylaxis Attestations Medical Necessity Statement*: Will need less than 2 midnights stay for evaluation and treatment of congestive heart failure Time Spent in Patient Care: Greater than 35 minutes Observation, will likely need less than 2 midnight stay for evaluation of mild CHF. Coding Level of Care Code Acute Acquisition Lead for Yris Tee Diagnoses Congestive heart failure I50.32 Heart failure chronicity: chronic Heart failure type: diastolic Elevated troponin R79.89 Obesity E66.9 Obesity type: unspecified obesity type
[2019-11-02] VITALS (8 sets, daily range): BP systolic 118–153; BP diastolic 68–81; PULSE 63–90; RESP 18–20; TEMP 36.4–37; O2SAT 94–97
[2019-11-02] MEDS: FUROsemide 10 mg/mL SDV 10mL 80 MG IVP (06:21)
[2019-11-02 06:25] LABS: Glucose Point of Care 129 mg/dL (70-110)
[2019-11-02 06:46] LABS: Basophils # 0.1 10^3/uL (0.0-0.1); Basophils % 0.5 %; Eosinophils # 0.2 10^3/uL (0.0-0.8); Eosinophils % 1.6 %; Hematocrit 39.5 % (42.0-52.0); Hemoglobin 13.3 g/dL (11.7-16.6); Lymphocytes # 2.2 10^3/uL (0.8-4.8); Lymphocytes % 24.3 %; Mean Corpuscular HGB Conc 33.7 g/dL (30.0-36.0); Mean Corpuscular Hemoglobin 29.8 pg (28.0-34.0); Mean Corpuscular Volume 88.4 fL (80-94); Mean Platelet Volume 10.7 fL (7.4-10.4); Monocytes # 0.7 10^3/uL (0.2-0.9); Monocytes % 7.3 %; Neutrophils % 66.1 %; Nucleated Red Blood Cells % 0 %; Platelet Count 168 10^3/cmm (130-400); Red Blood Count 4.47 10^6/uL (4.1-5.3); Red Cell Distribution Width 12.9 % (12.1-15.1); White Blood Count 9.2 10^3/uL (4.0-10.0)
[2019-11-02 06:56] LABS: Blood Urea Nitrogen 18 mg/dL (8-23); Calcium 8.7 mg/dL (8.5-10.5); Carbon Dioxide 29 mmol/L (22-29); Chloride 102 mmol/L (98-107); Glomerular Filtration Rate 59.9 mL/min (90-130); Glucose 137 mg/dL (65-115); Magnesium 1.8 mg/dL (1.7-2.3); Osmolality Calculated 293 mOsm/kg (285-295); Sodium 142 mmol/L (136-145)
[2019-11-02] MEDS: atorvastatin 40 mg Tablet PO (07:54)
[2019-11-02] MEDS: apixaban 5 mg Tablet PO (07:54)
[2019-11-02] MEDS: amlodipine 10 mg Tablet PO (07:54)
[2019-11-02] MEDS: finasteride 5 mg Tablet PO (07:56)
[2019-11-02] MEDS: isosorbide mononitrate ER 30 mg Tablet 60 MG PO (07:56)
[2019-11-02] MEDS: pregabalin 150 mg Capsule PO (07:57)
[2019-11-02] MEDS: losartan 50 mg Tablet 100 MG PO (07:57)
[2019-11-02] MEDS: HYDROcodone-acetaminophen 10-325 mg Tablet 1 TAB PO (07:57)
[2019-11-02] MEDS: potassium chloride ER 10 mEq Tablet 40 MEQ PO (07:57)
--- NOTE | 2019-11-02 08:16 | PC.CHAP ---
Pastoral Care Encounter/Spiritual Assessment Type of Contact [] Declined applications systems engineer visit [] Patient/Family/Request visit [] Outpatient visit [] Follow-up visit [] Physician referral [] Code/Alert [x] Routine visit [] Staff referral [] Actively dying [] Patient sleeping [] Family support [] [] Out of room [] Palliative care [] [] Receiving care in room [] Pre-surgical visit [] Trauma [] Long length of stay [] ICU visit [] Other: Relational/Emotional Strength [] Patient feels connected with others/family/visitors/staff [] Distress [] Loneliness/isolation [] Abandonment Spirituality of Patient [] Person of Christina [] Attends Roman Catholic of their Christina [] Believes in Prayer [] Reads Bible or Anabaptism materials [] There are Spiritual issues to be addressed Court [place] Interventions [x] Prayer [x] Active listening [x] Non-anxious presence [x] Spiritual/emotional support [] Crisis/trauma care [] Spiritual counseling [] Bereavement support [] Provided bereavement packet [] Provided Bible/devotional materials [] Provided toy/stuffed animal, coloring book to patient or family member [] Provided Communion [] Anointing/[place] [] Salvation [x] Completed spiritual assessment [] Other: Impact on Illness or Injury [] Angry [] Fearful [] Anxious [] Often cries [] Exhaustion [] Unable to work [] Unable to attend lutheran [] Unable to walk/stand [] Unable to read [] Unable to drive [] Unable to eat/drink [] Unable to sleep [] Unable to be with family [] Patient intubated [] Other: Summary Patient setting in chair. Feeling somewhat better Time spent with patient 15 min
--- NOTE | 2019-11-02 08:23 | PC.NURSE ---
Spoke with David at wound clinic. Patients wounds are treated with polymembrane silver. Recommendation for reatment with hydrofera blue or silvercell.
--- NOTE | 2019-11-02 08:42 | PC.NURSE ---
Patient complained of his bottom hurting. Assessed site and found an open area at the top of his coccyx. Applied Aloe Buckley to area and educated patient about turning schedule,. Also patient refused to take his clonidine during morning med pass stating that his doctor told him to stop this med.
--- NOTE | 2019-11-02 10:44 | PC.RESP ---
Smoking Cessation information sent to patient.
[2019-11-02 11:01] LABS: Glucose Point of Care 206 mg/dL (70-110)
--- NOTE | 2019-11-02 13:44 | PM.DCS ---
Discharge Providers Date of Admission: 11/01/19 20:11 Date of Discharge: November 02, 2019 Attending Provider at Admission: Demetrio Hurtado MD Attending Provider at Discharge: Tre Farris MD Primary Care Provider: IRMA Soto Diagnoses at Discharge Discharge Diagnosis (1) Congestive heart failure: Status: Chronic Problem details: Last echocardiogram 06/16 demonstrated significantly low EF. Contrast study and follow-up demonstrated normal EF Qualifiers: Heart failure chronicity: chronic Heart failure type: diastolic Qualified Code(s): I50.32 - Chronic diastolic (congestive) heart failure (2) Elevated troponin: Status: Acute (3) Obesity: Status: Chronic Problem details: BMI 42 Qualifiers: Obesity type: unspecified obesity type Reason for Visit Reason for Visit: chf/fluid build up Hospital Course Discharge Summary: Giles Guillaume is a 69 year old male that presents to the emergency department complaints of shortness of breath. History is very difficult to obtain. He reports significant swelling over the last year, which she reports Lasix does not always work for. He has been on higher and higher doses of Lasix, but recently decreased it back down as he thinks he urinates about the same amount no matter what. He also complains of leg pain, back pain. He reports some chest discomfort that is rather chronic. He goes off on many tangents during the history. He denies any fever, cough or COVID exposure. He recently saw his chiropractic practice manager Dr. Nickerson. At that visit it appears he was changed from Lasix to Bumex and Zaroxolyn for significant weight gain and fluid retention, however, I do not believe he is done this. He basically relates that he does what he thinks is best in regards to the doses. While in the emergency department, he received 100 mg of Lasix and 2 mg of Bumex IV. Patient was admitted under observation overnight. During hospitalization he remained on room air. On further interview with the patient he stated he still has not received Bumex and metolazone on the. He states he drinks up to 2 glasses of 32 ounces of liquid a day. He is not able to take care of salt intake as mostly he eats out. He thinks his symptoms are getting worse because of salt intake. Patient was overall found to be 11 kg is less than he did in May. He was counseled and educated in detail regarding the lifestyle modification which he need to do for congestive heart failure. Medical reconciliation was done and meds to bed were tried to be arranged for him for Bumex and metolazone. He is been discharged in stable condition with plan to follow-up with his primary care provider in 2 weeks and chiropractic practice manager in 1 month. Physical Exam Narrative: EXAM NARRATIVE: General exam demonstrates a white male, with no obvious respiratory distress HEENT: Pupils equally round. Oropharynx clear. Neck is supple no lymphadenopathy or thyromegaly Cardiovascular regular rate and rhythm, heart sounds distant, no murmur Lungs clear. No crackles. Diminished breath sounds are noted bilaterally Abdomen is obese soft with positive bowel sounds. was deferred Extremities show 1-2+ edema. Ulcer noted left ayala area likely related to edema/venous stasis Back demonstrates stage II decubitus is noted sacral region. Skin without rash Neuro no focal deficits Discharge Data Data Completed and Pending: Completed Studies During Hospitalization Category Date Time Status XR chest 1V bethany ble [id number] Stat Exams 11/01/19 16:31 Completed Labs from last 24 hours 11/02/19 11/02/19 11/02/19 10:55 06:21 06:19 WBC RBC Hgb Hct MCV MCH MCHC RDW Plt Count MPV Neut % (Auto) Lymph % (Auto) Wilkinson % (Auto) Eos % (Auto) Baso % (Auto) Neut # (Auto) Lymph # (Auto) Wilkinson # (Auto) Eos # (Auto) Baso # (Auto) Nucleated RBC % (a uto) Nucleated RBCs # Sodium 142 Potassium 3.0 L Chloride 102 Carbon Dioxide 29 Anion Gap 14.0 BUN 18 Creatinine 1.2 GFR Calculation 59.9 L Glucose 137 H POC Glucose 206 129 Calculated Osmolal ity 293 Calcium 8.7 Magnesium 1.8 Total Bilirubin AST ALT Alkaline Phosphata se Troponin T Baselin e Troponin T 120 Min [place] Delta Troponin T Troponin T Hi Sens 6Hr Troponin T Hi Sens 6Hr Delta C-Reactive Protein NT-Pro-B Natriuret Pep Total Protein Albumin Globulin Procalcitonin Urine Color Urine Appearance Urine pH Ur Specific Gravit y Urine Protein Urine Glucose (UA) Urine Ketones Urine Blood Urine Nitrate Urine Bilirubin Urine Urobilinogen Ur Leukocyte Fariha ase Urine RBC Urine WBC Ur Squamous Epith Cells Amorphous Sediment Urine Bacteria 11/02/19 11/01/1920 06:19 22:48 22:10 WBC 9.2 RBC 4.47 Hgb 13.3 Hct 39.5 L MCV 88.4 MCH 29.8 MCHC 33.7 RDW 12.9 Plt Count 168 MPV 10.7 H Neut % (Auto) 66.1 Lymph % (Auto) 24.3 Wilkinson % (Auto) 7.3 Eos % (Auto) 1.6 Baso % (Auto) 0.5 Neut # (Auto) 6.10 Lymph # (Auto) 2.2 Wilkinson # (Auto) 0.7 Eos # (Auto) 0.2 Baso # (Auto) 0.1 Nucleated RBC % (a uto) 0 Nucleated RBCs # 0.0 Sodium Potassium Chloride Carbon Dioxide Anion Gap BUN Creatinine GFR Calculation Glucose POC Glucose 130 Calculated Osmolal ity Calcium Magnesium Total Bilirubin AST ALT Alkaline Phosphata se Troponin T Baselin e Troponin T 120 Min [place] Delta Troponin T Troponin T Hi Sens 6Hr 51.76 H Troponin T Hi Sens 6Hr Delta 3.76 C-Reactive Protein NT-Pro-B Natriuret Pep Total Protein Albumin Globulin Procalcitonin Urine Color Urine Appearance Urine pH Ur Specific Gravit y Urine Protein Urine Glucose (UA) Urine Ketones Urine Blood Urine Nitrate Urine Bilirubin Urine Urobilinogen Ur Leukocyte Fariha ase Urine RBC Urine WBC Ur Squamous Epith Cells Amorphous Sediment Urine Bacteria 11/01/19 11/01/19 11/01/19 18:57 16:54 16:54 WBC RBC Hgb Hct MCV MCH MCHC RDW Plt Count MPV Neut % (Auto) Lymph % (Auto) Wilkinson % (Auto) Eos % (Auto) Baso % (Auto) Neut # (Auto) Lymph # (Auto) Wilkinson # (Auto) Eos # (Auto) Baso # (Auto) Nucleated RBC % (a uto) Nucleated RBCs # Sodium 141 Potassium 3.5 Chloride 103 Carbon Dioxide 21 L Anion Gap 20.5 H BUN 19 Creatinine 1.2 GFR Calculation 59.9 L Glucose 130 H POC Glucose Calculated Osmolal ity 290 Calcium 8.6 Magnesium Total Bilirubin 0.5 AST 30 ALT 23 Alkaline Phosphata se 84 Troponin T Baselin e 48 H Troponin T 120 Min [place] 47.23 H Delta Troponin T -0.77 L Troponin T Hi Sens 6Hr Troponin T Hi Sens 6Hr Delta C-Reactive Protein 10.6 H NT-Pro-B Natriuret Pep 1491 H Total Protein 6.8 Albumin 4.0 Globulin 2.8 Procalcitonin 0.14 Urine Color Urine Appearance Urine pH Ur Specific Gravit y Urine Protein Urine Glucose (UA) Urine Ketones Urine Blood Urine Nitrate Urine Bilirubin Urine Urobilinogen Ur Leukocyte Fariha ase Urine RBC Urine WBC Ur Squamous Epith Cells Amorphous Sediment Urine Bacteria 11/01/19 11/01/19 16:54 16:38 WBC 12.2 H RBC 4.55 Hgb 13.5 Hct 40.2 L MCV 88.4 MCH 29.7 MCHC 33.6 RDW 13.1 Plt Count 189 MPV 10.5 H Neut % (Auto) 68.7 Lymph % (Auto) 22.9 Wilkinson % (Auto) 7.1 Eos % (Auto) 0.7 Baso % (Auto) 0.4 Neut # (Auto) 8.34 H Lymph # (Auto) 2.8 Wilkinson # (Auto) 0.9 Eos # (Auto) 0.1 Baso # (Auto) 0.1 Nucleated RBC % (a uto) 0 Nucleated RBCs # 0.0 Sodium Potassium Chloride Carbon Dioxide Anion Gap BUN Creatinine GFR Calculation Glucose POC Glucose Calculated Osmolal ity Calcium Magnesium Total Bilirubin AST ALT Alkaline Phosphata se Troponin T Baselin e Troponin T 120 Min [place] Delta Troponin T Troponin T Hi Sens 6Hr Troponin T Hi Sens 6Hr Delta C-Reactive Protein NT-Pro-B Natriuret Pep Total Protein Albumin Globulin Procalcitonin Urine Color Yellow Urine Appearance Clear Urine pH 5 Ur Specific Gravit y 1.010 Urine Protein Trace Urine Glucose (UA) Norm Urine Ketones Negative Urine Blood Neg Urine Nitrate Negative Urine Bilirubin Neg Urine Urobilinogen Norm Ur Leukocyte Fariha ase Negative Urine RBC 0-4 H Urine WBC 0-4 H Ur Squamous Epith Cells 0-4 H Amorphous Sediment Not Reportable Urine Bacteria Trace Vitals: Last Vital Signs Temp 97.7 F 11/02/19 10:58 Pulse 86 11/02/19 10:58 Resp 18 11/02/19 10:58 BP 118/71 11/02/19 10:58 Pulse Ox 94 11/02/19 10:58 Discharge Plan Discharge Patient Disposition: Home Condition: Stable Prescriptions: Continued Ozempic 1 mg/dose (2 mg/1.5 mL) pen injector 1 mg SUBCUT Q7D RF: 0 potassium chloride 20 mEq tablet extended release 40 meq PO BID 3 Days Qty: 12 RF: 0 pregabalin 150 mg capsule 150 mg PO BID RF: 0 tamsulosin 0.4 mg capsule 0.4 mg PO BEDTIME RF: 0 losartan 100 mg tablet 100 mg PO DAILY RF: 0 Eliquis 5 mg tablet 5 mg PO BID RF: 0 tramadol 50 mg tablet 50 mg PO Q6H PRN (Reason: pain) Qty: 20 RF: 0 multivitamin Tablet 1 tab PO DAILY RF: 0 cholecalciferol (vitamin D3) [Vitamin D3] 2,000 unit Tablet 2,000 unit PO DAILY RF: 0 Lantus U-100 Insulin 61 units SUBCUT BEDTIME RF: 0 isosorbide mononitrate 30 mg Tablet Extended Release 24 Hr 60 mg PO DAILY Qty: 30 RF: 0 amlodipine 10 mg Tablet 10 mg PO DAILY Qty: 30 RF: 0 clonidine HCl 0.1 mg Tablet 0.1 mg PO BID RF: 0 Miralax 17 gram Powder In Packet 17 g PO DAILY PRN (Reason: Constipation) RF: 0 hydrocodone-acetaminophen 10-325 mg Tablet 1 tab PO BID PRN (Reason: Pain) RF: 0 capsaicin 0.025 % Cream 1 applic TOPICAL QID RF: 0 ammonium lactate 5 % Lotion 1 applic TOPICAL BID RF: 0 fluticasone propionate 50 mcg/actuation [place],Suspension 1 spray INTRANASAL DAILY RF: 0 rosuvastatin 10 mg Tablet 10 mg PO DAILY RF: 0 ipratropium-albuterol 20-100 mcg/actuation Mist 1 puff INHALATION Q6H PRN (Reason: Shortness Of Breath) RF: 0 finasteride 5 mg tablet 5 mg PO DAILY RF: 0 metolazone 2.5 mg tablet 2.5 mg PO DAILY Qty: 30 RF: 4 bumetanide 2 mg tablet 2 mg PO BID Qty: 60 RF: 3 Discontinued furosemide 40 mg tablet 40 mg PO DAILY RF: 0 Discharge Orders: Discharge Order (Routine); Ordered 11/02/19 Ordered By: Tre Farris Referrals: Gloria Novoa FNP [Primary Care Provider] - 11/17/19 1:30 pm [facility] ) Misty Nickerson MD [Physician] - 12/06/19 10:15 am Discharge Diet: Cardiac, Low Salt and Low Fat Discharge Activity: Increase activity as tolerated Activity Restrictions/Additional Instructions: Please try to restrict fluid upto 1500 cc/day. Please take meds prescribed to you by your chiropractic practice manager. Diuretics( water pills) for you are Bumex and metolazone. Please try an d restrict salt to less than 2 gm/day Discharge Attestations Time Spent in Discharge Care*: greater than 30 min Specific Discharge Activities: Specific discharge activities: educating patient, discussing with pcp/other providers, discussing with supportive employment case manager/social workers/dc planners, documenting/other paperwork and evaluating patient/reviewing data Status at Discharge: Cognitive status at discharge: cognitively intact, Behavioral status at discharge: cooperative, Functional status at discharge: independent ambulation Overall status at discharge: patient is back to baseline Quality Metrics Clinical Quality Measures During this hospital stay, did patient experience: None Coding Level of Care Code Acute Signals Intelligence Analyst for [employer]ris [employer]ee Diagnoses Congestive heart failure I50.32 Heart failure chronicity: chronic Heart failure type: diastolic Elevated troponin R79.89 Obesity E66.9 Obesity type: unspecified obesity type
== END 2019-11-02 17:11 | disposition home or self-care (01) ==
LOC: ER 20:15 → MEDSURG 20:48
PROVIDERS: Emergency Medicine; Admitting Provider Internal Medicine; PCP Nurse Practitioner Family; Visit Provider Student in an Organized Health Care Education/Training Program
DX: I50.32 Chronic diastolic (congestive) heart failure (principal); E11.22 Type 2 diabetes mellitus with diabetic chronic kidney disease; I13.0 Hypertensive heart and chronic kidney disease with heart failure and stage 1 through stage 4 chronic kidney disease, or unspecified chronic kidney disease; N18.9 Chronic kidney disease, unspecified; R79.89 Other specified abnormal findings of blood chemistry; E66.9 Obesity, unspecified; Z68.39 Body mass index [BMI] 39.0-39.9, adult; Z79.4 Long term (current) use of insulin; I48.91 Unspecified atrial fibrillation; Z79.01 Long term (current) use of anticoagulants; N40.1 Benign prostatic hyperplasia with lower urinary tract symptoms; N13.8 Other obstructive and reflux uropathy; Z86.73 Personal history of transient ischemic attack (TIA), and cerebral infarction without residual deficits; E78.5 Hyperlipidemia, unspecified; G47.33 Obstructive sleep apnea (adult) (pediatric); F17.290 Nicotine dependence, other tobacco product, uncomplicated
CPT/HCPCS: 12345; 36415; 36416; 71045; 80048; 80053; 81001; 82962; 83735; 83880; 84145; 84484; 85025; 86140; 93005; 93010; 96372; 96374; 96375; 99284; 99285; G0378; J1815; J1940; J3490

== ENCOUNTER 2019-11-08 09:28 | Inpatient (IN) | payer OTHER, MEDICARE, SELFPAY ==
[2019-11-08 09:30] VITALS: BP 99/63; PULSE 107; RESP 16; TEMP 38.1; O2SAT 95; BMI 39.5
[2019-11-08 09:34] VITALS: BP 131/79; PULSE 81; RESP 20; TEMP 36.8; O2SAT 97
--- NOTE | 2019-11-08 09:51 | ECG_ITS ---
[facility] Test Date: 2019-11-08 Pat Name: Giles Guillaume Department: Room: Gender: Male [place] Folder: : 1950 Requested By: Roberto Briggs Order Number: [id number] Shelton MD: Refugio Kraus M.D. Measurements Intervals [place] Rate: 107 P: GA: -1 QRS: 80 QRSD: 142 T: 24 QT: 353 QTc: 472 Interpretive Statements ATRIAL FIBRILLATION WITH RAPID VENTRICULAR RESPONSE RIGHT BUNDLE BRANCH BLOCK [120+ ms QRS DURATION, UPRIGHT V1, 40+ ms S IN I/aVL/V4/V5/V6] Compared to ECG 11/01/2019 20:27:13 Myocardial infarct finding no longer present Electronically Signed On 11-09-2019 0:27:10 CDT by Refugio Kraus M.D. [email or web address]
--- NOTE | 2019-11-08 09:52 | XRR_ITS ---
PROCEDURE INFORMATION: Exam: XR Chest, 1 View Exam date and time: 11/08/2019 10:07 AM Age: 69 years old Clinical indication: Cough and dyspnea; Patient HX: General fatigue, pain between shoulders; Additional info: Dyspnea/cough TECHNIQUE: Imaging protocol: XR of the chest Views: 1 view. COMPARISON: CR XR chest 1V portable [id number] 11/01/2019 5:24 PM FINDINGS: Lungs: Pleural thickening left hemithorax laterally. Possible small subpulmonic effusion. Lungs are well aerated without a focal area of consolidation. Pleural space: See Lungs finding. Heart/Mediastinum: Unremarkable. No cardiomegaly. Bones/joints: Unremarkable. XR/XR chest 1V portable [id number] IMPRESSION: 1. Pleural thickening left hemithorax laterally. Possible small subpulmonic effusion. 2. Lungs are well aerated without a focal area of consolidation.
[2019-11-08 10:25] LABS: Basophils % 0.2 %; Hematocrit 42.2 % (42.0-52.0); Hemoglobin 13.8 g/dL (11.7-16.6); Lymphocytes # 1.2 10^3/uL (0.8-4.8); Lymphocytes % 5.8 %; Mean Corpuscular HGB Conc 32.7 g/dL (30.0-36.0); Mean Corpuscular Hemoglobin 28.8 pg (28.0-34.0); Mean Corpuscular Volume 87.9 fL (80-94); Monocytes % 4.9 %; Neutrophils # 17.94 10^3/uL (1.8-7.7); Neutrophils % 88.5 %; Nucleated Red Blood Cells % 0 %; Platelet Count 173 10^3/cmm (130-400); Red Cell Distribution Width 12.5 % (12.1-15.1); White Blood Count 20.3 10^3/uL (4.0-10.0)
--- NOTE | 2019-11-08 10:33 | ED_ITS ---
HPI - Weakness General: Chief complaint: Weakness Stated complaint: WEAKNESS Time Seen by Provider: 11/08/19 09:42 History of Present Illness: HPI Narrative: 69-year-old male comes in complaining of weakness states there is a number of things wrong. Is diffi cult to get him to be specific. He states he just generally feels weak he had some episodes urinary, incontinence and has the shakes. He denies fever sweats or chills no chest pain or abdominal pain he does have a shallow left diabetic lower leg ulcer at the medial aspect of the mid tibia that is been seen in wound clinic for he does not have a bandage on it at this time. Cannot get him to be any more specific than the above. MD Complaint: generalized weakness Onset (ago): week(s) Duration: constant Location: generalized Migration: none Severity: severe Relieving factors: none Exacerbating factors: none Associated symptoms: Denies chest pain, chills, confusion, melena, decreased appetite, diaphoresis, dysuria, easy bruising, fever(s), headache(s), myalgias, nausea, rash, short of breath, syncope or vomiting Review of Systems Const: Denies: fever(s), chills or diaphoresis ENMT: Denies: throat pain, ear or mastoid pain, nasal discharge or nasal congestion Card: Denies: chest pain or syncope Resp: Denies: dyspnea, productive cough or non-productive cough GI: Denies: nausea, vomiting or melena : Denies: dysuria Skin/Breast: Denies: rash or pruritus Neuro: Denies: headache(s) or confusion Bharat/Lymph: Denies: easy bruising [facility] ED PFSH: Medical History Atrial fibrillation -Known history of chronic atrial fibrillation, currently rate controlled -Telemetry monitoring -on anticoagulation with Eliquis -Was previously on Coreg with noted bradycardia so discontinued BPH NOS w/o ur obs/LUTS -follows with [facility] -on finasteride and Flomax Chronic kidney disease Congestive heart failure -Has known history of chronic diastolic CHF -Clinically does not appear decompensated -Hold diuretics for now to allow for rehydration and due to acute renal impairment -Last echo done with contrast showed left ventricular ejection fraction of around 60% with normal ventricular size and systolic function -Follows up with Dr. Nickerson -Has been on high doses of diuretics which he thinks are not effective Coronary artery disease Evaluated in [place], patient reports 55% narrowing unknown vessel no stent or angioplasty done CVA (cerebral vascular accident) residual right weakness Diabetes mellitus, type II -A1c-8.4 -Accu-Cheks, hypoglycemia precautions, on Lantus, ISS -Consistent carb diet as tolerated -Hold Victoza Diabetic neuropathy associated with type 2 diabetes mellitus Hyperlipidemia Hypertension -Normotensive currently, monitor vital signs -Hold diuretics, ARB due to renal impairment -Hold clonidine as patient reports low blood pressure readings at home with associated lightheadedness -on amlodipine at lower dose to prevent hypotension Obesity -BMI-42 kg/m2 Obstructive sleep apnea not on treatment by choice Osteoarthritis PVD (peripheral vascular disease) -Hold statin due to rhabdomyolysis -Had arterial duplex done in August showing features associated with moderately severe PAD bilaterally -Would likely benefit from further evaluation Renal calculus, right follows with [facility] Surgical History No pertinent past surgical history Family History Mother , 87 Diabetes CAD (coronary artery disease) Hypertension Father , 60 No problems noted. Social History Smoking and tobacco status: light tobacco smoker smokeless tobacco Alcohol intake: former Year of sobriety/quit date alcohol: 25 y Former alcohol use details: heavy use, 5 DWI's Marital status: Single Current occupational status: retired History of recent travel: No Physical Exam Const: COMMON NORMALS: no acute distress GENERAL APPEARANCE: cooperative and comfortable ORIENTATION/CONSCIOUSNESS: Yes awake, Yes oriented to person, Yes oriented to place and Yes oriented to time HENMT: COMMON NORMALS: normocephalic, atraumatic, hearing grossly normal bilaterally, external ears normal, EAC's normal, TM's normal bilaterally, Normal nasal mucous membranes and turbinates present, moist oral mucous membranes and oropharynx normal HEAD & SCALP: normocephalic and atraumatic NOSE: Normal nasal mucous membranes and turbinates present EXTERNAL EAR: Yes external ears normal EXTERNAL AUDITORY CANAL: EAC's normal TYMPANIC MEMBRANE: TM's normal bilaterally Eye: COMMON NORMALS: Equal, round and reactive pupils present, EOMs intact bilaterally, conjunctivae normal and no scleral icterus CONJUNCTIVA: Yes conjunctivae normal PUPIL: Yes Equal, round and reactive pupils present Neck/C-Spine: COMMON NORMALS: full ROM, no lymphadenopathy, supple and no JVD Lymph: LYMPHATIC: no lymphadenopathy noted and no lymphedema noted Resp: COMMON NORMALS: normal respiratory effort, No retractions, No use of accessory muscles and clear to auscultation bilaterally AUSCULTATION: clear to auscultation bilaterally Cardio: COMMON NORMALS: no JVD and No murmurs present (Cardio) RATE: tachycardic RHYTHM: abnormal rhythm irregularly irregular GI: COMMON NORMALS: Soft to palpation and No hepatosplenomegaly present AUSCULTATION: Yes normoactive bowel sounds PALPATION: Yes Soft to palpation, No Tenderness to palpation present (GI), No Guarding due to palpation present (GI) and Yes No hepatosplenomegaly present Extremity: COMMON NORMALS: normal to inspection, capillary refill normal, no clubbing, cyanosis or edema, no calf tenderness and no pedal edema Neuro: SENSORIUM/ORIENTATION: Yes oriented to person, Yes oriented to place and Yes oriented to time Skin: COMMON NORMALS: no rashes or lesions noted GENERAL SKIN EXAM: no rashes or lesions noted Course Vital Signs: Vital signs: Vital Signs Temperature 97.6 F 11/10/19 17:27 Pulse Rate 83 11/10/19 17:27 Respiratory Rate 18 11/10/19 17:27 Blood Pressure 126/69 11/10/19 17:27 Pulse Oximetry 97 11/10/19 17:27 MDM - Weakness MDM Narrative: Medical decision making narrative: Reviewed Case and results with Dr. nair as well as with the patient. We will go ahead and admit for leukocytosis he has elevated white count and gross hematuria. Also has atrial fibrillation acute kidney injury patient will be followed by Dr. Derek Pedersen Lab Data: Labs: Lab Results 11/08/19 11/08/19 11/08/19 Range/Units 10:15 10:15 10:15 WBC 20.3 H (4.0-10.0) 10^3/ uL RBC 4.80 (4.1-5.3) 10^6/u L Hgb 13.8 (11.7-16.6) g/dL Hct 42.2 (42.0-52.0) % MCV 87.9 (80-94) fL MCH 28.8 (28.0-34.0) pg MCHC 32.7 (30.0-36.0) g/dL RDW 12.5 (12.1-15.1) % Plt Count 173 (130-400) 10^3/c mm MPV 11.0 H (7.4-10.4) fL Neut % (Auto) 88.5 % Lymph % (Auto) 5.8 % Terry % (Auto) 4.9 % Eos % (Auto) 0.0 % Baso % (Auto) 0.2 % Neut # (Auto) 17.94 H (1.8-7.7) 10^3/u L Lymph # (Auto) 1.2 (0.8-4.8) 10^3/u L Terry # (Auto) 1.0 H (0.2-0.9) 10^3/u L Eos # (Auto) 0.0 (0.0-0.8) 10^3/u L Baso # (Auto) 0.0 (0.0-0.1) 10^3/u L Nucleated RBC % (a uto) 0 % Nucleated RBCs # 0.0 /100WBC Specimen Type Sample Site ABG pH (7.35-7.45) ABG pCO2 (35-45) mmHg ABG pO2 (80.0-100.0) mmH g ABG HCO3 (22-26) mmol/L ABG O2 Saturation ABG Base Excess (-2.0-2.0) mmol/ L Judd Test A-a O2 Gradient (5-10) mmHg Hematocrit (42-52) % Hgb O2 Saturation (95-100) % Carboxyhemoglobin (0.4-20.1) %THgb Methemoglobin (0.4-1.5) % Total Hemoglobin (14-18) g/dL Ionized Calcium (1.1-1.4) mmol/L O2 Delivery Device FiO2 % Manager Residential ID Sodium 136 (136-145) mmol/L Potassium 3.2 L (3.5-5.1) mmol/L Chloride 94 L (98-107) mmol/L Carbon Dioxide 29 (22-29) mmol/L Anion Gap 16.2 (5-19) BUN 49 H (8-23) mg/dL Creatinine 2.9 H (0.7-1.2) mg/dL GFR Calculation 21.6 L (90-130) mL/min Glucose 271 H (65-115) mg/dL Calculated Osmolal ity 290 (285-295) mOsm/k g Calcium 8.9 (8.5-10.5) mg/dL Total Bilirubin 0.7 (0.15-1.2) mg/dL AST 77 H (0-40) U/L ALT 26 (0-41) U/L Alkaline Phosphata se 70 (40-130) IU/L Ammonia (16-60) umol/L Creatine Kinase 1728 H* (39-308) U/L Total Protein 6.6 (6.6-8.7) g/dL Albumin 3.6 (3.5-5.2) g/dL Globulin 3.0 (1.3-4.6) g/dL Lipase 140 H (13-60) U/L Urine Color (Yellow) Urine Appearance (CLEAR) Urine pH (5-7) Ur Specific Gravit y (1.005-1.030) Urine Protein (Negative) Urine Glucose (UA) (Normal) Urine Ketones (Negative) Urine Blood (Negative) Urine Nitrate (Negative) Urine Bilirubin (NEGATIVE) Urine Urobilinogen (Negative) mg/dL Ur Leukocyte Fariha ase (Negative) Urine RBC (0-2) /hpf Urine WBC (0-5) /hpf Ur Squamous Epith Cells (0-5) Amorphous Sediment Urine Bacteria (NONE) Hyaline Casts Urine Mucus Serum Ketones (Negative) SARS-CoV-2 Ag (Rap id) (Negative) 11/08/19 11/08/19 11/08/19 Range/Units 10:15 10:43 11:07 WBC (4.0-10.0) 10^3/ uL RBC (4.1-5.3) 10^6/u L Hgb (11.7-16.6) g/dL Hct (42.0-52.0) % MCV (80-94) fL MCH (28.0-34.0) pg MCHC (30.0-36.0) g/dL RDW (12.1-15.1) % Plt Count (130-400) 10^3/c mm MPV (7.4-10.4) fL Neut % (Auto) % Lymph % (Auto) % Terry % (Auto) % Eos % (Auto) % Baso % (Auto) % Neut # (Auto) (1.8-7.7) 10^3/u L Lymph # (Auto) (0.8-4.8) 10^3/u L Terry # (Auto) (0.2-0.9) 10^3/u L Eos # (Auto) (0.0-0.8) 10^3/u L Baso # (Auto) (0.0-0.1) 10^3/u L Nucleated RBC % (a uto) % Nucleated RBCs # /100WBC Specimen Type Sample Site ABG pH (7.35-7.45) ABG pCO2 (35-45) mmHg ABG pO2 (80.0-100.0) mmH g ABG HCO3 (22-26) mmol/L ABG O2 Saturation ABG Base Excess (-2.0-2.0) mmol/ L Judd Test A-a O2 Gradient (5-10) mmHg Hematocrit (42-52) % Hgb O2 Saturation (95-100) % Carboxyhemoglobin (0.4-20.1) %THgb Methemoglobin (0.4-1.5) % Total Hemoglobin (14-18) g/dL Ionized Calcium (1.1-1.4) mmol/L O2 Delivery Device FiO2 % Manager Residential ID Sodium (136-145) mmol/L Potassium (3.5-5.1) mmol/L Chloride (98-107) mmol/L Carbon Dioxide (22-29) mmol/L Anion Gap (5-19) BUN (8-23) mg/dL Creatinine (0.7-1.2) mg/dL GFR Calculation (90-130) mL/min Glucose (65-115) mg/dL Calculated Osmolal ity (285-295) mOsm/k g Calcium (8.5-10.5) mg/dL Total Bilirubin (0.15-1.2) mg/dL AST (0-40) U/L ALT (0-41) U/L Alkaline Phosphata se (40-130) IU/L Ammonia 19 (16-60) umol/L Creatine Kinase (39-308) U/L Total Protein (6.6-8.7) g/dL Albumin (3.5-5.2) g/dL Globulin (1.3-4.6) g/dL Lipase (13-60) U/L Urine Color Yellow (Yellow) Urine Appearance Clear (CLEAR) Urine pH 5.0 (5-7) Ur Specific Gravit y 1.015 (1.005-1.030) Urine Protein Neg (Negative) Urine Glucose (UA) Norm (Normal) Urine Ketones 1+ H (Negative) Urine Blood Trace H (Negative) Urine Nitrate Negative (Negative) Urine Bilirubin Neg (NEGATIVE) Urine Urobilinogen 1 H (Negative) mg/dL Ur Leukocyte Fariha ase Negative (Negative) Urine RBC None (0-2) /hpf Urine WBC None (0-5) /hpf Ur Squamous Epith Cells 5-10 H (0-5) Amorphous Sediment Not Reportable Urine Bacteria 1+ H (NONE) Hyaline Casts 5-10 H Urine Mucus Trace Serum Ketones Negative (Negative) SARS-CoV-2 Ag (Rap id) (Negative) 11/08/19 11/08/19 Range/Units 11:43 13:30 WBC (4.0-10.0) 10^3/ uL RBC (4.1-5.3) 10^6/u L Hgb (11.7-16.6) g/dL Hct (42.0-52.0) % MCV (80-94) fL MCH (28.0-34.0) pg MCHC (30.0-36.0) g/dL RDW (12.1-15.1) % Plt Count (130-400) 10^3/c mm MPV (7.4-10.4) fL Neut % (Auto) % Lymph % (Auto) % Terry % (Auto) % Eos % (Auto) % Baso % (Auto) % Neut # (Auto) (1.8-7.7) 10^3/u L Lymph # (Auto) (0.8-4.8) 10^3/u L Terry # (Auto) (0.2-0.9) 10^3/u L Eos # (Auto) (0.0-0.8) 10^3/u L Baso # (Auto) (0.0-0.1) 10^3/u L Nucleated RBC % (a uto) % Nucleated RBCs # /100WBC Specimen Type Arterial Sample Site Radial, left ABG pH 7.55 H (7.35-7.45) ABG pCO2 32.5 L (35-45) mmHg ABG pO2 80.9 (80.0-100.0) mmH g ABG HCO3 28.3 H (22-26) mmol/L ABG O2 Saturation 98.1 ABG Base Excess 6.1 H (-2.0-2.0) mmol/ L Judd Test Pos A-a O2 Gradient 3.6 L (5-10) mmHg Hematocrit 43.6 (42-52) % Hgb O2 Saturation 96.8 (95-100) % Carboxyhemoglobin 1.2 (0.4-20.1) %THgb Methemoglobin 0.1 L (0.4-1.5) % Total Hemoglobin 14.2 (14-18) g/dL Ionized Calcium 1.1 (1.1-1.4) mmol/L O2 Delivery Device Room air FiO2 21.0 % Manager Residential ID Cak Sodium 138.0 (136-145) mmol/L Potassium 3.1 L (3.5-5.1) mmol/L Chloride (98-107) mmol/L Carbon Dioxide (22-29) mmol/L Anion Gap (5-19) BUN (8-23) mg/dL Creatinine (0.7-1.2) mg/dL GFR Calculation (90-130) mL/min Glucose 248.0 H (65-115) mg/dL Calculated Osmolal ity (285-295) mOsm/k g Calcium (8.5-10.5) mg/dL Total Bilirubin (0.15-1.2) mg/dL AST (0-40) U/L ALT (0-41) U/L Alkaline Phosphata se (40-130) IU/L Ammonia (16-60) umol/L Creatine Kinase (39-308) U/L Total Protein (6.6-8.7) g/dL Albumin (3.5-5.2) g/dL Globulin (1.3-4.6) g/dL Lipase (13-60) U/L Urine Color (Yellow) Urine Appearance (CLEAR) Urine pH (5-7) Ur Specific Gravit y (1.005-1.030) Urine Protein (Negative) Urine Glucose (UA) (Normal) Urine Ketones (Negative) Urine Blood (Negative) Urine Nitrate (Negative) Urine Bilirubin (NEGATIVE) Urine Urobilinogen (Negative) mg/dL Ur Leukocyte Fariha ase (Negative) Urine RBC (0-2) /hpf Urine WBC (0-5) /hpf Ur Squamous Epith Cells (0-5) Amorphous Sediment Urine Bacteria (NONE) Hyaline Casts Urine Mucus Serum Ketones (Negative) SARS-CoV-2 Ag (Rap id) Negative (Negative) Discharge Plan Discharge Patient Disposition: Admitted As Inpatient Admit Provider: Angeles Leiva Clinical Impression: Leukocytosis, Rhabdomyolysis, Acute kidney injury, Atrial fibrillation, Acute hypokalemia Condition: Stable Referrals: Maricruz Alexander MD [Referring] - 4-7 days (You have a follow up appointment with Dr. Alexander on November 16 at 1:30pm) Discharge Diet: Cardiac and Diabetic Discharge Activity: Increase activity as tolerated and Use walker/crutches as instructed Patient Instructions: Levofloxacin (By mouth), Acute Kidney Injury (DC), Rhabdomyolysis (DC), Leukocytosis (DC) Interventions: ED Discharge Assessment Last Done: 11/08/19 14:45 ED Charges Last Done: 11/08/19 14:45 Discharge Date/Time: 11/08/19 14:45 Coding Level of Care Code ED Event Av Operator for Chg Fwd Exam Comprehensive
[2019-11-08 10:42] LABS: Alanine Aminotransferase 26 U/L (0-41); Albumin Level 3.6 g/dL (3.5-5.2); Alkaline Phosphatase 70 IU/L (40-130); Anion Gap 16.2 (5-19); Aspartate Amino Transferase 77 U/L (0-40); Blood Urea Nitrogen 49 mg/dL (8-23); Calcium 8.9 mg/dL (8.5-10.5); Carbon Dioxide 29 mmol/L (22-29); Chloride 94 mmol/L (98-107); Glomerular Filtration Rate 21.6 mL/min (90-130); Glucose 271 mg/dL (65-115); Osmolality Calculated 290 mOsm/kg (285-295); Potassium 3.2 mmol/L (3.5-5.1); Sodium 136 mmol/L (136-145); Total Bilirubin 0.7 mg/dL (0.15-1.2); Total Protein 6.6 g/dL (6.6-8.7)
[2019-11-08 10:48] LABS: Creatine Phosphokinase 1728 U/L (39-308)
[2019-11-08] MEDS: sodium chloride 0.9% 500 ML 999 ML IV (10:52)
[2019-11-08 11:02] LABS: Glucose Urine UA Norm (Normal); Ketones Urine 1+ (Negative); Protein Urine Neg (Negative); Specific Gravity, Urine 1.015 (1.005-1.030); Urine Appearance Clear (CLEAR); Urine Color Yellow (Yellow)
[2019-11-08 11:03] LABS: Add Urine Culture? No; Add Urine Microscopic? YES; Bacteria Urine 1+; Bilirubin Urine Neg (NEGATIVE); Blood Urine Trace (Negative); Leukocyte Esterase Urine Negative (Negative); Mucus Urine TRACE; Nitrate Urine Negative (Negative); Urobilinogen Urine 1 mg/dL (Negative)
[2019-11-08 11:23] LABS: Lipase 140 U/L (13-60)
[2019-11-08 11:29] LABS: Ammonia 19 umol/L (16-60)
[2019-11-08 11:53] LABS: Ketone (Acetest) Serum Negative (Negative)
[2019-11-08 11:55] LABS: ABG PCO2 32.5 mmHg (35-45); ABG PH Result 7.55 (7.35-7.45); Alveolar-Arterial Oxygen Gradi 3.6 mmHg (5-10); Arterial Blood Gas Hematocrit 43.6 % (42-52); Base Excess ABG 6.1 mmol/L (-2.0-2.0); Blood Gas Allen Test Pos; Blood Gas Operator Identificat CAK; Blood Gas Sample Site Radial, left; Blood Gas Sample Type Arterial; Carboxyhemoglobin 1.2 %THgb (0.4-20.1); HCO3 ABG 28.3 mmol/L (22-26); HGB O2 Sat 96.8 % (95-100); Ionized Calcium Level - ABG 1.1 mmol/L (1.1-1.4); Methemoglobin 0.1 % (0.4-1.5); Oxygen Device ROOM AIR; Oxygen Saturation ABG 98.1; PO2 ABG 80.9 mmHg (80.0-100.0); Potassium Level - ABG 3.1 mmol/L (3.5-5.0); Total Hemoglobin 14.2 g/dL (14-18)
--- NOTE | 2019-11-08 11:58 | CT_ITS ---
WS: [id number] CT ABDOMEN PELVIS TECHNIQUE: Noncontrast CT of the abdomen and pelvis with coronal and sagittal reformatted images. CLINICAL INFORMATION: abd discomfort, DANITZA COMPARISON: CT August 23, 2019 DLP: 2480.[address] scans at [facility] use at least one of these dose optimization techniques: automat ed exposure control; mA and/or kV adjustment per patient size (includes targeted exams where dose is matched to clinical indication); or iterative reconstruction. FINDINGS: Noncontrast liver is normal. Normal gallbladder. Noncontrast spleen is normal. Normal GE junction. Fa tty atrophy of the pancreas. Adrenal glands are normal. Bilateral renal cortical atrophy. Right proximal ureteral calculus measuring 5-6 mm unchanged. No hydronephrosis. Stable right renal cy sts. Normal caliber abdominal aorta. Aortic calcification. Diverticulosis. No evidence of acute diver ticulitis. No evidence of small or large bowel obstruction. Normal appendix. Fat-containing inguinal hernias. Fat-containing umbilical Hernia. Atelectasis in the lung bases. Notified Roberto Keys DO at 11/08/2019 12:[address]/CT abdomen pelvis wo con [id number] IMPRESSION: 1. No acute abdominal or pelvic findings. 2. Stable right proximal ureteral calculus measuring 5-6 mm unchanged since 2019. No hydronephrosis. 3. Bilateral renal cortical atrophy. 4. No evidence of small or large bowel obstruction. 5. Sigmoid diverticulosis. No evidence of acute diverticulitis. 6. Normal caliber abdominal aorta.
[2019-11-08] MEDS: levofloxacin-dextrose 5 % 750 MG/150 ML PREMIX 100 MG IV (13:17)
[2019-11-08 14:12] LABS: SARS Covid-2 Antigen Negative (Negative)
[2019-11-08 14:45] VITALS: BP 125/70; PULSE 100; RESP 16; O2SAT 95
[2019-11-08 16:13] VITALS: BP 131/79; PULSE 91; RESP 20; TEMP 36.8; O2SAT 97
[2019-11-08] MEDS: D5-NS 0.45% + KCL 20 mEq 20 MEQ/1,000 ML BAG 100 MEQ IV (16:32)
--- NOTE | 2019-11-08 16:35 | PC.ADMIT ---
[id number] Admission Note: The patient,Giles Guillaume,69 y/o, was given written information regarding hospital policies, unit procedures and contact persons. Patient's smoking status: light tobacco smoker. Vital Signs - 8 hr 11/08/19 09:30 11/08/19 09:34 11/08/19 14:45 Temperature 100.5 F H 98.3 F Pulse Rate 81 100 Pulse Rate [Monitor] 107 H Respiratory Rate 16 20 H 16 Blood Pressure 131/79 125/70 Blood Pressure [Right Arm] 99/63 Pulse Oximetry 95 97 95 11/08/19 16:13 Temperature 98.3 F Pulse Rate 91 Pulse Rate [Monitor] Respiratory Rate 20 H Blood Pressure 131/79 Blood Pressure [Right Arm] Pulse Oximetry 97
--- NOTE | 2019-11-08 16:35 | PC.NURSE ---
PT to the floor via wheelchair accompanied by food preparation supervisor pt oriented to room call light within reach no complaints at this time.
[2019-11-08 16:37] VITALS: BP 131/79; PULSE 91; RESP 20; TEMP 36.8; O2SAT 97
--- NOTE | 2019-11-08 17:57 | P.HP_ITS ---
Providers/Chief Complaint Admitting Physician: Angeles Leiva MD Primary Care Provider: Dr. Carolina Chief Complaint: WEAKNESS History of Present Illness Giles Guillaume is a 69 year old male with past medical history noted below presents with multiple complaints. History taking is quite difficult as it is challenging to keep him focused on task and he has multiple complaints 1 of wh ich is difficulty getting dressed this morning, difficulty walking even with his walker, episodes of fecal and urinary incontinence since Thursday. He was recently admitted at our facility on 10/31 during which time he was diuresed secondary to acutely decompensated CHF. I have thoroughly reviewed his medical record to obtain further collateral information and it seems that they have been some challenges optimizing his diuresis with his current regimen including furosemide, metolazone and possibly Bumex. He follows up with Dr. Nickerson as an outpatient. He does not think that his diuretics are working as effectively. He has a chronic left lower extremity wound for which she follows up with Dr. Holguin at the wound care clinic and has home health care services for appropriate care. He reports that for about a year now he has had this intermittent episodes of constipation for several days then will have incontinence for a few days then patent will repeat itself. He sometimes has difficulty initiating urinary stream, incomplete emptying and dribbling and more recently has had episodes of incontinence. He does follow-up with Dr. Almonte and is on both tamsulosin and finasteride. He reports that his not experiencing any lower extremity swelling, no abdominal bloating or pain, denies nausea/vomiting, fever/chills, chest pain or tightness, does have chronic shortness of breath particularly with exertion. Does admit that he has been urinating more frequently and his urine has been more concentrated in appearance though no particular odor to it. He has been taking his blood pressure at home and it has been lower than it usually runs with systolic blood pressures in the 80s. This has been noted on a previous wound care clinic note at least 2 weeks ago for which he was advised to seek medical attention in the ER which he declined. He has some trouble finding his words during my encounter which am unsure if he is a new finding for him. He typically ambulates with a walker and states that earlier this morning upon awakening he had difficulty getting his feet under him to get to the bathroom. He also had noted difficulty getting his shorts on in preparation to come to the ER so home health nurse helped him get dressed. He exhibits some frustration over his chronic medical issues and I am unsure how compliant he has been with his medication regimen. So far his work- up indicates leukocytosis with a white count of 20.3, normal hemoglobin at 13.8, mild hypokalemia with a potassium of 3.2, BUN of 49, creatinine of 2.9, blood glucose of 271, CPK of 1400, lipase of 140, AST of 77. Chest x-ray is unremarkable, urinalysis is positive for blood and some bacteria. He is noted to have a right renal stone with no associated hydronephrosis on CT scan of the abdomen and pelvis. ABG is appropriate. He did have an initial temperature of 100.5 so requested rapid COVID-19 testing which is negative. He has received an empiric dose of Levaquin and replacement of potassium. He requires further work-up including management of acute renal failure and rhabdomyolysis. Review of Systems Const: Reports: fatigue; Denies: fever(s) or chills Eyes: Denies: change in vision ENMT: Reports: dry mouth Card: Reports: lightheadedness, dyspnea on exertion (chronic) and acrocyanosis (chronic); Denies: chest pain, swelling of feet/ankles or syncope Resp: Denies: dyspnea, productive cough or non-productive cough GI: Reports: constipation (chronic, intermittent) and fecal incontinence; Denies: abdominal pain, nausea, vomiting, hematemesis or hematochezia : Reports: urinary frequency and urinary incontinence; Denies: dysuria or hematuria Musc: Denies: back pain Skin/Breast: Denies: rash Neuro: Reports: weakness in extremities, difficulty walking (today) and confusion; Denies: numbness in extremities Psych: Denies: anxiety Medications/Allergies Home Medications Medication Instructions Recorded Confirmed Last Taken Type apixaban 5 mg tablet 5 mg PO BID 06/22/19 11/08/19 11/07/19 History losartan 100 mg tablet 100 mg PO DAILY 06/22/19 11/08/19 11/01/19 History pregabalin 150 mg capsule 150 mg PO BID 06/22/19 11/08/19 11/07/19 History tamsulosin 0.4 mg capsule 0.4 mg PO BEDTIME 06/22/19 11/08/19 10/31/19 History Lantus U-100 Insulin 61 units SUBCUT BEDTIME 06/24/19 11/08/19 11/07/19 History 61 UNITS cholecalciferol (vitamin D3) 2,000 unit PO DAILY 06/24/19 11/08/19 11/07/19 History [Vitamin D3] multivitamin 1 tab PO DAILY 06/24/19 11/08/19 11/07/19 History amlodipine 10 mg PO DAILY #30 tab 06/27/19 11/08/19 11/07/19 Rx isosorbide mononitrate 60 mg PO DAILY #30 tab 06/27/19 11/08/19 11/01/19 Rx semaglutide 1 mg/dose (2 mg/1.5 1 mg SUBCUT Q7D 08/23/19 11/08/19 11/07/19 History mL) subcutaneous pen injector potassium chloride 20 mEq 40 meq PO BID 3 Days #12 tab 10/31/19 11/08/19 11/07/19 Rx tablet,extended release ammonium lactate 1 applic TOPICAL BID PRN 11/01/19 11/08/19 Unknown History capsaicin 1 applic TOPICAL QID PRN 11/01/19 11/08/19 Unknown History clonidine HCl 0.1 mg PO BID 11/01/19 11/08/19 Unknown History finasteride 5 mg PO DAILY 11/01/19 11/08/19 10/31/19 History fluticasone propionate 1 - 2 spray INTRANASAL DAILY 11/01/19 11/08/19 Unknown History hydrocodone-acetaminophen 1 tab PO BID PRN 11/01/19 11/08/19 10/25/19 History ipratropium-albuterol [Combivent 1 puff INHALATION Q6H PRN 11/01/19 11/08/19 Unknown History Respimat] polyethylene glycol 3350 [Miralax] 17 g PO DAILY PRN 11/01/19 11/08/19 Unknown History rosuvastatin 10 mg PO DAILY 11/01/19 11/08/19 11/07/19 History bumetanide 2 mg PO BID #60 tab 11/02/19 11/08/19 Unknown Rx metolazone 2.5 mg PO DAILY #30 tab 11/02/19 11/08/19 11/07/19 Rx acetaminophen [Tylenol Extra 1,000 mg PO TID PRN 11/08/19 11/08/19 Unknown History Strength] furosemide [Lasix] 80 mg PO DAILY 11/08/19 11/08/19 11/07/19 History Allergies Allergy/AdvReac Type Severity Reaction Status Date / Time aspirin Allergy ADR-Nausea Verified 11/08/19 10:51 PFSH Acute PFSH: Medical History Atrial fibrillation chronic, on eliquis BPH NOS w/o ur obs/LUTS follows with Almonte Chronic kidney disease Congestive heart failure Last echocardiogram 06/16 demonstrated significantly low EF. Contrast study and follow-up demonstrated normal EF Coronary artery disease Evaluated in [place], patient reports 55% narrowing unknown vessel no stent or angioplasty done CVA (cerebral vascular accident) residual right weakness Diabetes mellitus, type II victoza & lantus Hyperlipidemia Hypertension Obstructive sleep apnea not on treatment by choice Osteoarthritis PVD (peripheral vascular disease) Renal calculus, right follows with Al[facility] Surgical History No pertinent past surgical history Family History Mother , 87 Diabetes CAD (coronary artery disease) Hypertension Father , 60 No problems noted. Social History Smoking and tobacco status: light tobacco smoker smokeless tobacco Alcohol intake: former Year of sobriety/quit date alcohol: 25 y Former alcohol use details: heavy use, 5 DWI's Marital status: Single Current occupational status: retired History of recent travel: No Vitals/I&O/Wt Last Vital Signs Temp 98.3 F 11/08/19 16:37 Pulse 91 11/08/19 16:37 Resp 20 H 11/08/19 16:37 BP 131/79 11/08/19 16:37 Pulse Ox 97 11/08/19 16:37 Weight last 48 hrs Weight 136.078 kg Physical Exam Const: COMMON NORMALS: no acute distress, patient oriented x3 and alert GENERAL APPEARANCE: cooperative and comfortable NUTRITIONAL APPEARANCE: obese morbidly obese ORIENTATION/CONSCIOUSNESS: Yes awake HENMT: COMMON NORMALS: normocephalic, atraumatic, hearing grossly normal bilaterally and moist oral mucous membranes HEAD & SCALP: normocephalic and atraumatic Eye: COMMON NORMALS: Equal, round and reactive pupils present, EOMs intact bilaterally and conjunctivae normal CONJUNCTIVA: Yes conjunctivae normal PUPIL: Yes Equal, round and reactive pupils present Neck/C-Spine: COMMON NORMALS: full ROM GENERAL: Yes normal visual inspection and Yes trachea midline Resp: COMMON NORMALS: normal respiratory effort, No retractions and No use of accessory muscles EFFORT & INSPECTION: Yes able to speak in complete senten eleuterio, Yes symmetric chest movement and No tachypneic OTHER: -auscultation limited by body habitus -on RA -symmetrical air entry bilaterally Cardio: COMMON NORMALS: regular rate, regular rhythm, S1 normal heart sound present, S2 normal heart sound present and No murmurs present (Cardio) RATE: regular rate RHYTHM: regular rhythm HEART SOUNDS: S1 normal heart sound present and S2 normal heart sound present GI: COMMON NORMALS: Normal to inspection, nondistended, normoactive bowel sounds present, Soft to palpation and non-tender INSPECTION: Yes central obesity PALPATION: Yes Soft to palpation Extremity: COMMON NORMALS: normal to inspection, full ROM and no clubbing, cyanosis or edema; negative for no pedal edema Neuro: COMMON NORMALS: patient oriented x3, moves all extremities, no focal motor deficits and no sensory deficits noted OTHER: -Noted intermittent difficulty with word finding Psych: COMMON NORMALS: mental status grossly normal, Normal thought process present, cooperative, normal affect and speech normal SPEECH: Yes normal speech THOUGHT PROCESS: Normal thought process present Skin: COMMON NORMALS: no jaundice, no petechiae and no mottling NARRATIVE SKIN EXAM: -well circumscribed lesion on left medial leg, scabbed over, no active drainage -Chronic venous stasis dermatitis bilaterally GENERAL SKIN EXAM: mottling (bilateral lower extremities) NAILS: dystrophic (Toenails) Data : 11/08/19 10:15 11/08/19 10:15 Micro: Microbiology 11/08/19 10:15 Blood Culture - Preliminary Blood SPECIMEN COLLECTED 11/08/19 11:07 Blood Culture - Preliminary Blood SPECIMEN COLLECTED A&P Assessment and plan (1) Leukocytosis: -Noted significant leukocytosis with a white count of 20.3 -Reports some issues with urinary and fecal incontinence for the past 1 to 2 days -Urinalysis not strongly indicative of infection -Order stool studies -Due to symptoms and leukocytosis will cover with empiric antibiotics; received dose of Levaquin in ER, will continue this for now -Chest x-ray shows no evidence of infection or infiltration -Rapid COVID-19 test negative -Follow-up blood cultures Status: Acute Qualifiers: Leukocytosis type: unspecified Qualified Code(s): D72.829 - Elevated white blood cell count, unspecified (2) Acute renal impairment: -Acute renal impairment superimposed on CKD stage III -Baseline creatinine appears to be around 1.2-1.4 -Renal impairment may be secondary to overdiuresis/dehydration -cautious IV fluid hydration for now with monitoring to avoid fluid overload given underlying congestive heart failure -Hold diuretics, ARB, Zaroxolyn for now due to renal impairment -Close monitoring of urine output -Monitor renal function -Avoid nephrotoxins, renally dose meds -Noted rhabdomyolysis -Order renal ultrasound Status: Acute (3) Rhabdomyolysis: -CPK elevated to 1400 -Noted acute renal impairment as above -IV fluid hydration -Trend CPK Status: Acute Qualifiers: Rhabdomyolysis type: non-traumatic Qualified Code(s): M62.82 - Rhabdomyolysis (4) Atrial fibrillation: -Known history of chronic atrial fibrillation, currently rate controlled -Telemetry monitoring -Resume anticoagulation with Eliquis -Was previously on Coreg with noted bradycardia so discontinued Status: Chronic Qualifiers: Atrial fibrillation type: longstanding persistent Qualified Code(s): I48.11 - Longstanding persistent atrial fibrillation (5) Chronic kidney disease: -As noted above Status: Chronic Qualifiers: Chronic kidney disease stage: stage 3 (moderate) Qualified Code(s): N18.3 - Chronic kidney disease, stage 3 (moderate) (6) Diabetes mellitus, type II: -Order A1c as no baseline -Accu-Cheks, hypoglycemia precautions, resume Lantus, ISS -Consistent carb diet as tolerated -Hold Victoza Status: Chronic Qualifiers: Diabetes mellitus long-term insulin use: with long-term use Diabetes mellitus complication status: with neurologic complications Diabetes mellitus complication detail: with polyneuropathy Qualified Code(s): E11.42 - Type 2 diabetes mellitus with diabetic polyneuropathy; Z79.4 - intermediate (current) use of insulin (7) Diabetic neuropathy associated with type 2 diabetes mellitus: -Resume Lyrica Status: Chronic Qualifiers: Diabetes mellitus complication detail: diabetic polyneuropathy Qualified Code(s): E11.42 - Type 2 diabetes mellitus with diabetic polyneuropathy (8) Congestive heart failure: -Has known history of chronic diastolic CHF -Clinically does not appear decompensated -Hold diuretics for now to allow for rehydration and due to acute renal impairment -Last echo done with contrast showed left ventricular ejection fraction of around 60% with normal ventricular size and systolic function -Follows up with Dr. Nickerson -Has been on high doses of diuretics which he thinks are not effective Status: Chronic Qualifiers: Heart failure chronicity: chronic Heart failure type: diastolic Qualified Code(s): I50.32 - Chronic diastolic (congestive) heart failure (9) Hypertension: -Normotensive currently, monitor vital signs -Hold diuretics, ARB due to renal impairment -Hold clonidine as patient reports low blood pressure readings at home with associated lightheadedness -Resume amlodipine at lower dose to prevent hypotension Status: Chronic Qualifiers: Hypertension type: other secondary hypertension Qualified Code(s): I15.8 - Other secondary hypertension (10) Obesity: -BMI-40 kg/m2 Status: Chronic Qualifiers: Obesity type: due to excess calories Obesity classification: adult class 2 (BMI 35 - 39.9) Serious obesity comorbidity presence: with serious comorbidity Body mass index: BMI 39.0-39.9 Qualified Code(s): E66.01 - Morbid (severe) obesity due to excess calories; Z68.39 - Body mass index (BMI) 39.0- 39.9, adult (11) BPH NOS w/o ur obs/LUTS: -Resume finasteride and Flomax Status: Chronic (12) PVD (peripheral vascular disease): -Hold statin due to rhabdomyolysis -Had arterial duplex done in August showing features associated with moderately severe PAD bilaterally -Would likely benefit from further evaluation Status: Chronic (13) Obstructive sleep apnea: -Declined CPAP Status: Chronic Additional A&P Information -Hypokalemia; replaced in ED, repeat in AM, continue replacement as needed -Slightly increased bilateral lower extremity weakness earlier today. Typically ambulates with a walker and has been receiving home health services. PT evaluation in a.m., fall precautions, up with assistance -Noted some difficulty with word finding during my assessment, will request ST evaluation -Chronic left lower extremity wound; has been following up at the wound care clinic with Dr. Holguin, wound appears to be healing appropriately -Questionable compliance with medication regimen -Chronic back pain, is on narcotics -History of PTSD -DVT ppx not needed as on Eliquis -[place] [place] -Code status: FULL code Attestations Medical Necessity Statement*: Giles Guillaume's hospital stay will require greater than 2 midnights for management of acute renal impairment, rhabdomyolysis, noted leukocytosis including IV fluid hydration, close monitoring of renal function and electrolytes. Time Spent in Patient Care: Greater than 35 minutes (>than 50% of time spent in counselling and/or direct pt care on unit) . Coding Level of Care Code Acute Technology Manager for Chg Fwd Diagnoses Leukocytosis D72.829 Leukocytosis type: unspecified Acute renal impairment N28.9 Rhabdomyolysis M62.82 Rhabdomyolysis type: non-traumatic Atrial fibrillation I48.11 Atrial fibrillation type: longstanding persistent Chronic kidney disease N18.3 Chronic kidney disease stage: stage 3 (moderate) Diabetes mellitus, type II E11.42; Z79.4 Diabetes mellitus termination clerk insulin use: with termination clerk use Diabetes mellitus complication status: with neurologic complications Diabetes mellitus complication detail: with polyneuropathy Diabetic neuropathy associated with type 2 diabetes mellitus E11.42 Diabetes mellitus complication detail: diabetic polyneuropathy Congestive heart failure I50.32 Heart failure chronicity: chronic Heart failure type: diastolic Hypertension I15.8 Hypertension type: other secondary hypertension Obesity E66.01; Z68.39 Obesity type: due to excess calories Obesity classification: adult class 2 (BMI 35 - 39.9) Serious obesity comorbidity presence: with serious comorbidity Body mass index: BMI 39.0-39.9 BPH NOS w/o ur obs/LUTS N40.0 PVD (peripheral vascular disease) I73.9 Obstructive sleep apnea G47.33
[2019-11-08 18:25] LABS: Glucose Point of Care 284 mg/dL (70-110)
[2019-11-08] MEDS: apixaban 5 mg Tablet PO (18:37)
[2019-11-08] MEDS: sodium chlor 0.45% +KCl 20 mEq 20 MEQ/1,000 ML BAG 100 MEQ IV (18:38)
[2019-11-08 19:34] VITALS: BP 127/84; PULSE 78; RESP 20; TEMP 37; O2SAT 95
[2019-11-08] MEDS: finasteride 5 mg Tablet PO (21:51)
[2019-11-08] MEDS: insulin glargine 100 units/1 mL 60 UNIT SUBCUT (21:55)
[2019-11-09] VITALS: BP 110/60; PULSE 83; RESP 20; TEMP 36.9; O2SAT 96
[2019-11-09 04:00] VITALS: BP 106/67; PULSE 83; RESP 20; TEMP 36.3; O2SAT 95
[2019-11-09] MEDS: sodium chlor 0.45% +KCl 20 mEq 20 MEQ/1,000 ML BAG 100 MEQ IV ×2 (04:07→16:37)
[2019-11-09 04:14] LABS: Glucose Point of Care 201 mg/dL (70-110)
[2019-11-09 04:15] LABS: Glucose Point of Care 143 mg/dL (70-110)
--- NOTE | 2019-11-09 06:00 | US_ITS ---
WS: [id number] ULTRASOUND RENAL TECHNIQUE: Ultrasound examination of both kidneys. CLINICAL INFORMATION: acute renal failure, rhabdo COMPARISON: None. FINDINGS: RIGHT: Right kidney is normal in size and appearance. 11 mm nonobstructing renal parenchymal calculus left kidney Echogenicity: Normal. Cortical thickness: 1.4 cm; Normal. Hydronephrosis: None. Perinephric fluid: None. Right kidney measures: 11.1 cm x 5.8 cm x 7.0 cm. LEFT: Left kidney is normal in size and appearance. Echogenicity: Normal. Cortical thickness: 1.7 cm; Normal. Hydronephrosis: None. Perinephric fluid: None. Left kidney measures: 12.0 cm x 5.2 cm x 6.7 cm. Normal visualized aorta. Normal bladder. US/US renal BI with bladder IMPRESSION: 1. No hydronephrosis in either kidney. 2. Normal bladder. 3. 11 mm nonobstructing renal parenchymal calculus left kidney.
[2019-11-09 06:03] LABS: Basophils % 0.2 %; Eosinophils % 0.2 %; Hematocrit 39.3 % (42.0-52.0); Hemoglobin 13.4 g/dL (11.7-16.6); Mean Corpuscular HGB Conc 34.1 g/dL (30.0-36.0); Mean Corpuscular Hemoglobin 29.5 pg (28.0-34.0); Mean Corpuscular Volume 86.6 fL (80-94); Mean Platelet Volume 11.4 fL (7.4-10.4); Monocytes # 1.2 10^3/uL (0.2-0.9); Neutrophils # 8.61 10^3/uL (1.8-7.7); Neutrophils % 67.1 %; Nucleated Red Blood Cells % 0 %; Platelet Count 168 10^3/cmm (130-400); Red Blood Count 4.54 10^6/uL (4.1-5.3); Red Cell Distribution Width 12.4 % (12.1-15.1); White Blood Count 12.8 10^3/uL (4.0-10.0)
[2019-11-09 06:38] LABS: Estmated Average Glucose 194; Hemoglobin A1C 8.4 % (4.0-6.0)
[2019-11-09 06:41] LABS: Glucose Point of Care 141 mg/dL (70-110)
[2019-11-09 07:09] LABS: Thyroid Stimulating Hormone 1.82 uIU/mL (0.27-4.20)
[2019-11-09 07:10] LABS: Alanine Aminotransferase 34 U/L (0-41); Albumin Level 3.9 g/dL (3.5-5.2); Alkaline Phosphatase 70 IU/L (40-130); Aspartate Amino Transferase 85 U/L (0-40); Blood Urea Nitrogen 55 mg/dL (8-23); Calcium 8.3 mg/dL (8.5-10.5); Carbon Dioxide 27 mmol/L (22-29); Chloride 96 mmol/L (98-107); Globulin 1.9 g/dL (1.3-4.6); Glomerular Filtration Rate 28.3 mL/min (90-130); Glucose 145 mg/dL (65-115); Lipase 97 U/L (13-60); Osmolality Calculated 285 mOsm/kg (285-295); Sodium 137 mmol/L (136-145); Total Bilirubin 0.7 mg/dL (0.15-1.2); Total Protein 5.8 g/dL (6.6-8.7)
[2019-11-09 07:11] LABS: Creatine Phosphokinase 1452 U/L (39-308)
[2019-11-09 07:17] VITALS: BP 122/84; PULSE 86; RESP 18; TEMP 36.3; O2SAT 95
[2019-11-09] MEDS: isosorbide mononitrate ER 30 mg Tablet PO (08:23)
[2019-11-09] MEDS: multivitamin therapeutic Tablet 1 TAB PO (08:23)
[2019-11-09] MEDS: amlodipine 5 mg Tablet PO (08:23)
[2019-11-09] MEDS: apixaban 5 mg Tablet PO ×2 (08:23→16:40)
[2019-11-09] MEDS: pregabalin 150 mg Capsule PO ×2 (08:23→16:39)
--- NOTE | 2019-11-09 10:52 | PC.CHAP ---
Pastoral Care Encounter/Spiritual Assessment Type of Contact [] Declined roadmaster visit [] Patient/Family/Request visit [] Outpatient visit [] Follow-up visit [] Physician referral [] Code/Alert [x] Routine visit [] Staff referral [] Actively dying [] Patient sleeping [] Family support [] [] Out of room [] Palliative care [] [] Receiving care in room [] Pre-surgical visit [] Trauma [] Long length of stay [] ICU visit [] Other: Relational/Emotional Strength [] Patient feels connected with others/family/visitors/staff [] Distress [] Loneliness/isolation [] Abandonment Spirituality of Patient [] Person of Christina [] Attends Gnosticist of their Christina [] Believes in Prayer [] Reads Bible or Episcopalian materials [] There are Spiritual issues to be addressed Aviation Technical Systems Specialist Interventions [x] Prayer [x] Active listening [x] Non-anxious presence [x] Spiritual/emotional support [] Crisis/trauma care [] Spiritual counseling [] Bereavement support [] Provided bereavement packet [] Provided Bible/devotional materials [] Provided toy/stuffed animal, coloring book to patient or family member [] Provided Communion [] Anointing/Castor [] Salvation [x] Completed spiritual assessment [] Other: Impact on Illness or Injury [] Angry [] Fearful [] Anxious [] Often cries [] Exhaustion [] Unable to work [] Unable to attend zoroastrian [] Unable to walk/stand [] Unable to read [] Unable to drive [] Unable to eat/drink [] Unable to sleep [] Unable to be with family [] Patient intubated [] Other: Summary Patient states he needs to exercise.. and build up this strength. Time spent with patient 10 min
[2019-11-09 11:16] LABS: Glucose Point of Care 208 mg/dL (70-110)
[2019-11-09 11:29] VITALS: BP 128/75; PULSE 85; RESP 20; TEMP 37; O2SAT 93
--- NOTE | 2019-11-09 14:24 | PC.RESP ---
Smoking Cessation information sent to patient.
[2019-11-09 15:26] VITALS: BP 133/70; PULSE 79; RESP 17; TEMP 36.4; O2SAT 95
--- NOTE | 2019-11-09 15:57 | PM.PN ---
Subjective Subjective: Interval history: Decreased leukocytosis, stable hemoglobin, mild hypokalemia, improved creatinine trending down. Noted to have gram-positive cocci in 2 out of 4 bottles in his initial set of blood cultures so will order repeat set. Hemodynamically stable, afebrile and on room air. Sitting up at the edge of the bed during my visit, had initially declined continued IV fluid hydration but discussed need to continue this due to rhabdomyolysis and continued acute renal impairment after which he is agreeable. Has been ambulatory with walker. States that his urine looks less concentrated today. Medications: Reviewed: Yes Medication Review Details: Active Medications Generic Name Dose Route Start Last Admin Trade Name Freq PRN Reason Stop Dose Admin Acetaminophen 650 mg 11/08/19 17:57 Tylenol PO Q6H PRN Mild/Mod Pain Or Temp >/= 101 Hydrocodone Bitart /Acetaminophen 1 tab 11/08/19 18:01 Meadow 10-325 Mg PO BID PRN MODERATE PAIN Amlodipine Besylat e 5 mg 11/09/19 09:00 11/09/19 08:23 Norvasc PO 5 mg DAILY LC Administration Apixaban 5 mg 11/08/19 18:00 11/09/19 08:23 Eliquis PO 5 mg BID LC Administration Dextrose 25 ml 11/08/19 17:57 D50w IVP ONCE PRN hypoglycemia prot ocol Protocol Dextrose 50 ml 11/08/19 17:57 D50w IVP PRN PRN hypoglycemia prot ocol Protocol Finasteride 5 mg 11/08/19 21:00 11/08/19 21:51 Proscar PO 5 mg BEDTIME LC Administration Glucagon 1 mg 11/08/19 17:57 Glucagen IM ONCE PRN Adult Acute Hypog lycemia Prot. Protocol Dextrose 500 mls @ 100 mls /hr 11/08/19 17:57 D5w IV ONCE PRN Adult Acute Hypog lycemia Prot Protocol Potassium Chloride /Sodium Chloride 20 meq in 1,000 m ls @ 100 mls/hr 11/08/19 18:00 11/09/19 04:07 Sodium Chlor 0.4 5% +Kcl 20 Meq IV 100 mls/hr .Q10H LC Administration Insulin Aspart 0 unit 11/08/19 18:00 11/09/19 11:52 Novolog SUBCUT 6 unit WM&BEDTIME LC Administration Protocol Insulin Glargine 60 unit 11/08/19 21:00 11/08/19 21:55 Lantus SUBCUT 60 unit BEDTIME LC Administration Isosorbide Mononit rate 30 mg 11/09/19 09:00 11/09/19 08:23 Imdur PO 30 mg DAILY LC Administration Levofloxacin 750 mg 11/10/19 09:00 Levaquin PO Q48H LC Protocol Morphine Sulfate 2 mg 11/08/19 17:57 Morphine IVP Q4H PRN SEVERE PAIN Multivitamins Ther apeutic 1 tab 11/09/19 09:00 11/09/19 08:23 Multivitamin Tab PO 1 tab DAILY LC Administration Ondansetron HCl 4 mg 11/08/19 14:51 Zofran IVP Q6H PRN NAUSEA AND VOMITI NG Pregabalin 150 mg 11/09/19 09:00 11/09/19 08:23 Lyrica PO 150 mg BID LC Administration aspirin Allergy (Verified 11/08/19 10:51) ADR-Nausea Vitals/I&O/Wt Last Vital Signs Temp 97.5 F L 11/09/19 15:26 Pulse 79 11/09/19 15:26 Resp 17 11/09/19 15:26 BP 133/70 11/09/19 15:26 Pulse Ox 95 11/09/19 15:26 11/09/19 11/09/19 11/09/19 06:59 14:59 22:59 Intake Total 1188.333 / 1428.333 480 / 480 Balance 1188.333 / 1428.333 480 / 480 Weight last 48 hrs Weight 143.925 kg Weight 136.078 kg Physical Exam Const: COMMON NORMALS: no acute distress, patient oriented x3 and alert GENERAL APPEARANCE: cooperative and comfortable NUTRITIONAL APPEARANCE: obese morbidly obese ORIENTATION/CONSCIOUSNESS: Yes awake HENMT: COMMON NORMALS: normocephalic, atraumatic, hearing grossly normal bilaterally and moist oral mucous membranes HEAD & SCALP: normocephalic and atraumatic Eye: COMMON NORMALS: Equal, round and reactive pupils present, EOMs intact bilaterally and conjunctivae normal CONJUNCTIVA: Yes conjunctivae normal PUPIL: Yes Equal, round and reactive pupils present Neck/C-Spine: COMMON NORMALS: full ROM GENERAL: Yes normal visual inspection and Yes trachea midline Resp: COMMON NORMALS: normal respiratory effort, No retractions and No use of accessory muscles EFFORT & INSPECTION: Yes able to speak in complete sentences, Yes symmetric chest movement and No tachypneic OTHER: -auscultation limited by body habitus -on RA -symmetrical air entry bilaterally Cardio: COMMON NORMALS: regular rate, regular rhythm, S1 normal heart sound present, S2 normal heart sound present and No murmurs present (Cardio) RATE: regular rate RHYTHM: regular rhythm HEART SOUNDS: S1 normal heart sound present and S2 normal heart sound present GI: COMMON NORMALS: Normal to inspection, nondistended, normoactive bowel sounds present, Soft to palpation and non-tender INSPECTION: Yes central obesity PALPATION: Yes Soft to palpation Extremity: COMMON NORMALS: normal to inspection, full ROM and no clubbing, cyanosis or edema; negative for no pedal edema Neuro: COMMON NORMALS: patient oriented x3, moves all extremities, no focal motor deficits and no sensory deficits noted SENSORIUM/ORIENTATION: Yes alert OTHER: -Noted intermittent difficulty with word finding Psych: COMMON NORMALS: mental status grossly normal, Normal thought process present, cooperative, normal affect and speech normal SPEECH: Yes normal speech THOUGHT PROCESS: Normal thought process present and Tangential thought process present (Intermittently) Skin: COMMON NORMALS: no jaundice, no petechiae and no mottling NARRATIVE SKIN EXAM: -well circumscribed lesion on left medial leg, scabbed over, no active drainage -Chronic venous stasis dermatitis bilaterally GENERAL SKIN EXAM: mottling (bilateral lower extremities) NAILS: dystrophic (Toenails) Data : 11/09/19 05:30 11/09/19 05:30 Micro: Microbiology 11/08/19 11:07 Blood Culture - Preliminary Blood Gram positive cocci 11/08/19 10:15 Blood Culture - Preliminary Blood NEGATIVE TO DATE A&P Assessment and plan (1) Leukocytosis: -Improved leukocytosis (20.3->12.8) -Reports some issues with urinary and fecal incontinence for the past 1 to 2 days -Urinalysis not strongly indicative of infection -stool studies pending receipt -Due to symptoms and leukocytosis will cover with empiric antibiotics; continue empiric Levaquin -Chest x-ray shows no evidence of infection or infiltration -Rapid COVID-19 test negative -blood cx: 2/4 bottles positive for GPC; repeat set ordered Status: Acute Qualifiers: Leukocytosis type: unspecified Qualified Code(s): D72.829 - Elevated white blood cell count, unspecified (2) Acute renal impairment: -Acute renal impairment superimposed on CKD stage III -Baseline creatinine appears to be around 1.2-1.4 -Renal impairment may be secondary to overdiuresis/dehydration -cautious IV fluid hydration for now with monitoring to avoid fluid overload given underlying congestive heart failure -Hold diuretics, ARB, Zaroxolyn for now due to renal impairment -Close monitoring of urine output -continue to monitor renal function; improving -Avoid nephrotoxins, renally dose meds -Noted rhabdomyolysis -renal ultrasound: no hydronephrosis, 11 mm non-obstructing L renal stone Status: Acute (3) Rhabdomyolysis: -CPK elevated to 1400 -Noted acute renal impairment as above -IV fluid hydration -CPK trending down, continue to monitor Status: Acute Qualifiers: Rhabdomyolysis type: non-traumatic Qualified Code(s): M62.82 - Rhabdomyolysis (4) Atrial fibrillation: -Known history of chronic atrial fibrillation, currently rate controlled -Telemetry monitoring -on anticoagulation with Eliquis -Was previously on Coreg with noted bradycardia so discontinued Status: Chronic Qualifiers: Atrial fibrillation type: longstanding persistent Qualified Code(s): I48.11 - Longstanding persistent atrial fibrillation (5) Chronic kidney disease: -As noted above Status: Chronic Qualifiers: Chronic kidney disease stage: stage 3 (moderate) Qualified Code(s): N18.3 - Chronic kidney disease, stage 3 (moderate) (6) Diabetes mellitus, type II: -A1c-8.4 -Accu-Cheks, hypoglycemia precautions, on Lantus, ISS -Consistent carb diet as tolerated -Hold Victoza Status: Chronic Qualifiers: Diabetes mellitus complication detail: with polyneuropathy Diabetes mellitus complication status: with neurologic complications Diabetes mellitus [facility] insulin use: with [facility] use Qualified Code(s): E11.42 - Type 2 diabetes mellitus with diabetic polyneuropathy; Z79.4 - [facility] (current) use of insulin (7) Diabetic neuropathy associated with type 2 diabetes mellitus: -on Lyrica Status: Chronic Qualifiers: Diabetes mellitus complication detail: diabetic polyneuropathy Qualified Code(s): E11.42 - Type 2 diabetes mellitus with diabetic polyneuropathy (8) Congestive heart failure: -Has known history of chronic diastolic CHF -Clinically does not appear decompensated -Hold diuretics for now to allow for rehydration and due to acute renal impairment -Last echo done with contrast showed left ventricular ejection fraction of around 60% with normal ventricular size and systolic function -Follows up with Dr. Nickerson -Has been on high doses of diuretics which he thinks are not effective Status: Chronic Qualifiers: Heart failure chronicity: chronic Heart failure type: diastolic Qualified Code(s): I50.32 - Chronic diastolic (congestive) heart failure (9) Hypertension: -Normotensive currently, monitor vital signs -Hold diuretics, ARB due to renal impairment -Hold clonidine as patient reports low blood pressure readings at home with associated lightheadedness -Resume amlodipine at lower dose to prevent hypotension Status: Chronic Qualifiers: Hypertension type: other secondary hypertension Qualified Code(s): I15.8 - Other secondary hypertension (10) Obesity: -BMI-42 kg/m2 Status: Chronic Qualifiers: Body mass index: BMI 39.0-39.9 Obesity classification: adult class 2 (BMI 35 - 39.9) Obesity type: due to excess calories Serious obesity comorbidity presence: with serious comorbidity Qualified Code(s): E66.01 - Morbid (severe) obesity due to excess calories; Z68.39 - Body mass index (BMI) 39.0-39.9, adult (11) BPH NOS w/o ur obs/LUTS: -on finasteride and Flomax Status: Chronic (12) PVD (peripheral vascular disease): -Hold statin due to rhabdomyolysis -Had arterial duplex done in August showing features associated with moderately severe PAD bilaterally -Would likely benefit from further evaluation Status: Chronic (13) Obstructive sleep apnea: -Declined CPAP Status: Chronic Additional A&P Information -Hypokalemia; continue replacement as needed -Slightly increased bilateral lower extremity weakness earlier today. Typically ambulates with a walker and has been receiving home health services. PT evaluation appreciated; outpatient PT recommended. Fall precautions, up with assistance -Noted some difficulty with word finding during my assessment, ST evaluation requested -Chronic left lower extremity wound; has been following up at the wound care clinic with Dr. Holguin, wound appears to be healing appropriately -Questionable compliance with medication regimen -Chronic back pain, is on narcotics -History of PTSD -DVT ppx not needed as on Eliquis -Dispo: home with continued services ([facility] [place]); outpatient PT -Code status: FULL code Attestations Medical Necessity Statement*: Patient requires hospitalization for continued management of acute renal impairment, rhabdomyolysis. Time Spent in Patient Care: 16 - 35 minutes (>than 50% of time spent in counselling and/or direct pt care on unit). 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: with platform material handling 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 use Diabetic neuropathy associated with type 2 diabetes mellitus E11.42 Diabetes mellitus complication detail: diabetic polyneuropathy Congestive heart failure I50.32 Heart failure chronicity: chronic Heart failure type: diastolic Hypertension I15.8 Hypertension type: other secondary hypertension Obesity E66.01; Z68.39 Body mass index: BMI 39.0-39.9 Obesity classification: adult class 2 (BMI 35 - 39.9) Obesity type: due to excess calories Serious obesity comorbidity presence: with serious comorbidity BPH NOS w/o ur obs/LUTS N40.0 PVD (peripheral vascular disease) I73.9 Obstructive sleep apnea G47.33
[2019-11-09] MEDS: potassium chloride ER 10 mEq Tablet 40 MEQ PO (16:39)
[2019-11-09 16:48] LABS: Glucose Point of Care 265 mg/dL (70-110)
[2019-11-09 20:00] VITALS: BP 133/81; PULSE 87; RESP 15; TEMP 36.9; O2SAT 97
[2019-11-09 21:07] LABS: Glucose Point of Care 275 mg/dL (70-110)
[2019-11-09] MEDS: finasteride 5 mg Tablet PO (21:25)
[2019-11-09] MEDS: insulin glargine 100 units/1 mL 60 UNIT SUBCUT (21:25)
[2019-11-10] VITALS: BP 143/92; PULSE 88; RESP 16; TEMP 37.2; O2SAT 97
[2019-11-10 04:00] VITALS: BP 148/75; PULSE 77; RESP 18; TEMP 37.4; O2SAT 96
[2019-11-10 05:30] LABS: Basophils % 0.2 %; Eosinophils # 0.1 10^3/uL (0.0-0.8); Eosinophils % 0.4 %; Hematocrit 37.4 % (42.0-52.0); Hemoglobin 12.6 g/dL (11.7-16.6); Lymphocytes # 2.3 10^3/uL (0.8-4.8); Lymphocytes % 18.6 %; Mean Corpuscular HGB Conc 33.7 g/dL (30.0-36.0); Mean Corpuscular Hemoglobin 29.6 pg (28.0-34.0); Mean Corpuscular Volume 87.8 fL (80-94); Mean Platelet Volume 11.2 fL (7.4-10.4); Monocytes # 0.9 10^3/uL (0.2-0.9); Monocytes % 7.3 %; Neutrophils # 9.12 10^3/uL (1.8-7.7); Nucleated Red Blood Cells % 0 %; Platelet Count 163 10^3/cmm (130-400); Red Blood Count 4.26 10^6/uL (4.1-5.3); Red Cell Distribution Width 12.6 % (12.1-15.1); White Blood Count 12.5 10^3/uL (4.0-10.0)
[2019-11-10 06:00] VITALS: BMI 41.8
[2019-11-10 06:14] LABS: Alanine Aminotransferase 37 U/L (0-41); Albumin Level 3.3 g/dL (3.5-5.2); Alkaline Phosphatase 73 IU/L (40-130); Anion Gap 16.1 (5-19); Aspartate Amino Transferase 55 U/L (0-40); Blood Urea Nitrogen 49 mg/dL (8-23); Carbon Dioxide 24 mmol/L (22-29); Chloride 99 mmol/L (98-107); Globulin 3.1 g/dL (1.3-4.6); Glomerular Filtration Rate 42.9 mL/min (90-130); Glucose 168 mg/dL (65-115); Osmolality Calculated 284 mOsm/kg (285-295); Potassium 3.1 mmol/L (3.5-5.1); Sodium 136 mmol/L (136-145); Total Bilirubin 0.4 mg/dL (0.15-1.2); Total Protein 6.4 g/dL (6.6-8.7)
[2019-11-10 06:25] LABS: Creatine Phosphokinase 661 U/L (39-308)
[2019-11-10 07:22] LABS: Glucose Point of Care 157 mg/dL (70-110)
[2019-11-10 07:56] VITALS: BP 143/86; PULSE 88; RESP 18; TEMP 36.8; O2SAT 95
[2019-11-10] MEDS: pregabalin 150 mg Capsule PO (08:07)
[2019-11-10] MEDS: apixaban 5 mg Tablet PO (08:08)
[2019-11-10] MEDS: multivitamin therapeutic Tablet 1 TAB PO (08:08)
[2019-11-10] MEDS: levoFLOXacin 750 mg Tablet PO (08:08)
[2019-11-10] MEDS: isosorbide mononitrate ER 30 mg Tablet PO (08:09)
[2019-11-10] MEDS: potassium chloride ER 10 mEq Tablet 40 MEQ PO (08:09)
[2019-11-10] MEDS: amlodipine 5 mg Tablet PO (08:09)
[2019-11-10] MEDS: sodium chlor 0.45% +KCl 20 mEq 20 MEQ/1,000 ML BAG 100 MEQ IV (08:47)
[2019-11-10 10:41] LABS: Glucose Point of Care 250 mg/dL (70-110)
[2019-11-10 11:26] VITALS: BP 131/72; PULSE 83; RESP 18; TEMP 37; O2SAT 98
[2019-11-10 15:45] VITALS: BP 126/69; PULSE 83; RESP 18; TEMP 36.4; O2SAT 97
[2019-11-10 16:48] LABS: Glucose Point of Care 171 mg/dL (70-110)
[2019-11-10 17:27] VITALS: BP 126/69; PULSE 83; RESP 18; TEMP 36.4; O2SAT 97
--- NOTE | 2019-11-10 18:02 | P.DS_ITS ---
Discharge Providers Date of Admission: 11/08/19 13:50 Date of Discharge: November 10, 2019 Attending Provider at Admission: Angeles Leiva MD Attending Provider at Discharge: Angeles Leiva MD Consults: None Primary Care Provider: [facility] Diagnoses at Discharge Discharge Diagnosis (1) Leukocytosis: Status: Acute Problem details: -Improved leukocytosis (20.3->12.8) -Reports some issues with urinary and fecal incontinence for the past 1 to 2 days -Urinalysis not strongly indicative of infection -stool studies pending receipt -Due to symptoms and leukocytosis will cover with empiric antibiotics; continue empiric Levaquin -Chest x-ray shows no evidence of infection or infiltration -Rapid COVID-19 test negative -blood cx: 2/4 bottles positive for GPC; repeat set pending Qualifiers: Leukocytosis type: unspecified Qualified Code(s): D72.829 - Elevated white blood cell count, unspecified (2) Acute renal impairment: Status: Acute Problem details: -Acute renal impairment superimposed on CKD stage III -Baseline creatinine appears to be around 1.2-1.4 -Renal impairment may be secondary to overdiuresis/dehydration -cautious IV fluid hydration for now with monitoring to avoid fluid overload given underlying congestive heart failure -Hold diuretics, ARB, Zaroxolyn for now due to renal impairment -Close monitoring of urine output -continue to monitor renal function; improving -Avoid nephrotoxins, renally dose meds -Noted rhabdomyolysis -renal ultrasound: no hydronephrosis, 11 mm non-obstructing L renal stone (3) Rhabdomyolysis: Status: Acute Problem details: -CPK elevated to 1400 on admission -improved with hydration Qualifiers: Rhabdomyolysis type: non-traumatic Qualified Code(s): M62.82 - Rhabdomyolysis (4) Atrial fibrillation: Status: Chronic Problem details: -Known history of chronic atrial fibrillation, currently rate controlled -Telemetry monitoring -on anticoagulation with Eliquis -Was previously on Coreg with noted bradycardia so discontinued Qualifiers: Atrial fibrillation type: longstanding persistent Qualified Code(s): I48.11 - Longstanding persistent atrial fibrillation (5) Chronic kidney disease: Status: Chronic Qualifiers: Chronic kidney disease stage: stage 3 (moderate) Qualified Code(s): N18.3 - Chronic kidney disease, stage 3 (moderate) (6) Diabetes mellitus, type II: Status: Chronic Problem details: -A1c-8.4 -Accu-Cheks, hypoglycemia precautions, on Lantus, ISS -Consistent carb diet as tolerated -Hold Victoza Qualifiers: Diabetes mellitus senior living insulin use: with senior living use Diabetes mellitus complication status: with neurologic complications Diabetes mellitus complication detail: with polyneuropathy Qualified Code(s): E11.42 - Type 2 diabetes mellitus with diabetic polyneuropathy; Z79.4 - 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 (7) Diabetic neuropathy associated with type 2 diabetes mellitus: Status: Chronic Qualifiers: Diabetes mellitus complication detail: diabetic polyneuropathy Qualified Code(s): E11.42 - Type 2 diabetes mellitus with diabetic polyneuropathy (8) Congestive heart failure: Status: Chronic Problem details: -Has known history of chronic diastolic CHF -Clinically does not appear decompensated -Hold diuretics for now to allow for rehydration and due to acute renal impairment -Last echo done with contrast showed left ventricular ejection fraction of around 60% with normal ventricular size and systolic function -Follows up with Dr. Nickerson -Has been on high doses of diuretics which he thinks are not effective Qualifiers: Heart failure chronicity: chronic Heart failure type: diastolic Qualified Code(s): I50.32 - Chronic diastolic (congestive) heart failure (9) Hypertension: Status: Chronic Problem details: -Normotensive currently, monitor vital signs -Hold diuretics, ARB due to renal impairment -Hold clonidine as patient reports low blood pressure readings at home with associated lightheadedness -on amlodipine at lower dose to prevent hypotension Qualifiers: Hypertension type: other secondary hypertension Qualified Code(s): I15.8 - Other secondary hypertension (10) Obesity: Status: Chronic Problem details: -BMI-42 kg/m2 Qualifiers: Obesity type: due to excess calories Obesity classification: adult class 2 (BMI 35 - 39.9) Serious obesity comorbidity presence: with serious comorbidity Body mass index: BMI 39.0-39.9 Qualified Code(s): E66.01 - Morbid (severe) obesity due to excess calories; Z68.39 - Body mass index (BMI) 39.0- 39.9, adult (11) BPH NOS w/o ur obs/LUTS: Status: Chronic Problem details: -follows with [facility] -on finasteride and Flomax (12) PVD (peripheral vascular disease): Status: Chronic Problem details: -Hold statin due to rhabdomyolysis -Had arterial duplex done in August showing features associated with moderately severe PAD bilaterally -Would likely benefit from further evaluation (13) Obstructive sleep apnea: Status: Chronic Problem details: not on treatment by choice Other Information Additional DC diagnoses/information: -Hypokalemia; continue replacement as nee ded -Slightly increased bilateral lower extremity weakness earlier today. Typically ambulates with a walker and has been receiving home health services. PT evaluation appreciated; outpatient PT recommended. Fall precautions, up with assistance -Noted some difficulty with word finding during my assessment, ST evaluation requested -Chronic left lower extremity wound; has been following up at the wound care clinic with Dr. Holguin, wound appears to be healing appropriately -Questionable compliance with medication regimen -Chronic back pain, is on narcotics -History of PTSD Reason for Visit Reason for Visit: WEAKNESS Hospital Course Hospital Course: Patient was admitted to the medical surgical floor and started on IV fluid hydration secondary to noted acute renal impairment and rhabdomyolysis. He has responded well with noted improvement in his renal function and resolving rhabdomyolysis. He seems to have limited insight into his underlying comorbidities despite frequent discussion of this. He can be somewhat challenging to deal with overall and compliance with his medications is questionable. He already has home health services through [facility] which is to resume on discharge. Anticipate that his renal function will continue to improve and rhabdomyolysis will completely resolve. He will need to follow-up with his primary care provider as well as with Dr. Nickerson, Dr. Almonte and at the wound care clinic. Discharge Summary: -Patient to follow-up with primary care provider within 1 week Physical Exam Const: COMMON NORMALS: no acute distress, patient oriented x3 and alert GENERAL APPEARANCE: cooperative and comfortable NUTRITIONAL APPEARANCE: obese morbidly obese ORIENTATION/CONSCIOUSNESS: Yes awake HENMT: COMMON NORMALS: normocephalic, atraumatic, hearing grossly normal bilaterally and moist oral mucous membranes HEAD & SCALP: normocephalic and atraumatic Eye: COMMON NORMALS: Equal, round and reactive pupils present, EOMs intact bilaterally and conjunctivae normal CONJUNCTIVA: Yes conjunctivae normal PUPIL: Yes Equal, round and reactive pupils present Neck/C-Spine: COMMON NORMALS: full ROM GENERAL: Yes normal visual inspection and Yes trachea midline Resp: COMMON NORMALS: normal respiratory effort, No retractions and No use of accessory muscles EFFORT & INSPECTION: Yes able to speak in complete sentences, Yes symmetric chest movement and No tachypneic OTHER: - auscultation limited by body habitus -on RA -symmetrical air entry bilaterally Cardio: COMMON NORMALS: regular rate, regular rhythm, S1 normal heart sound present, S2 normal heart sound present and No murmurs present (Cardio) RATE: regular rate RHYTHM: regular rhythm HEART SOUNDS: S1 normal heart sound present and S2 normal heart sound present GI: COMMON NORMALS: Normal to inspection, nondistended, normoactive bowel soun ds present, Soft to palpation and non-tender INSPECTION: Yes central obesity PALPATION: Yes Soft to palpation Extremity: COMMON NORMALS: normal to inspection, full ROM and no clubbing, cyanosis or edema; negative for no pedal edema Neuro: COMMON NORMALS: patient oriented x3, moves all extremities, no focal motor deficits and no sensory deficits noted SENSORIUM/ORIENTATION: Yes alert OTHER: -Noted intermittent difficulty with word finding Psych: COMMON NORMALS: mental status grossly normal, Normal thought process present, cooperative, normal affect and speech normal SPEECH: Yes normal speech THOUGHT PROCESS: Normal thought process present and Tangential thought process present (Intermittently) Skin: COMMON NORMALS: no jaundice, no petechiae and no mottling NARRATIVE SKIN EXAM: -well circumscribed lesion on left medial leg, scabbed over, no active drainage -Chronic venous stasis dermatitis bilaterally GENERAL SKIN EXAM: mottling (bilateral lower extremities) NAILS: dystrophic (Toenails) Discharge Data Data Completed and Pending: Completed Studies During Hospitalization Category Date Time Status CT abdomen pelvis wo con [id number] Urge nt Cat Scan 11/08/19 11:58 Completed XR chest 1V bethany ble [id number] Stat Exams 11/08/19 09:52 Completed US renal BI with bladder Routine Ultrasound 11/09/19 06:00 Completed Pending at discharge Category Date Time Status Blood Culture Sta t Lab 11/08/19 10:15 Results Blood Culture Sta t Lab 11/09/19 16:47 Results Labs from last 24 hours 11/10/19 11/10/19 11/10/19 16:39 10:37 06:43 WBC RBC Hgb Hct MCV MCH MCHC RDW Plt Count MPV Neut % (Auto) Lymph % (Auto) [place] % (Auto) Eos % (Auto) Baso % (Auto) Neut # (Auto) Lymph # (Auto) [place] # (Auto) Eos # (Auto) Baso # (Auto) Nucleated RBC % (a uto) Nucleated RBCs # Sodium Potassium Chloride Carbon Dioxide Anion Gap BUN Creatinine GFR Calculation Glucose POC Glucose 171 250 157 Calculated Osmolal ity Calcium Total Bilirubin AST ALT Alkaline Phosphata se Creatine Kinase Total Protein Albumin Globulin 11/10/19 11/10/19 11/09/19 05:10 05:10 20:56 WBC 12.5 H RBC 4.26 Hgb 12.6 Hct 37.4 L MCV 87.8 MCH 29.6 MCHC 33.7 RDW 12.6 Plt Count 163 MPV 11.2 H Neut % (Auto) 73.0 Lymph % (Auto) 18.6 [place] % (Auto) 7.3 Eos % (Auto) 0.4 Baso % (Auto) 0.2 Neut # (Auto) 9.12 H Lymph # (Auto) 2.3 [place] # (Auto) 0.9 Eos # (Auto) 0.1 Baso # (Auto) 0.0 Nucleated RBC % (a uto) 0 Nucleated RBCs # 0.0 Sodium 136 Potassium 3.1 L Chloride 99 Carbon Dioxide 24 Anion Gap 16.1 BUN 49 H Creatinine 1.6 H GFR Calculation 42.9 L Glucose 168 H POC Glucose 275 Calculated Osmolal ity 284 L Calcium 8.0 L Total Bilirubin 0.4 AST 55 H ALT 37 Alkaline Phosphata se 73 Creatine Kinase 661 H* Total Protein 6.4 L Albumin 3.3 L Globulin 3.1 Vitals: Last Vital Signs Temp 97.6 F 11/10/19 17:27 Pulse 83 11/10/19 17:27 Resp 18 11/10/19 17:27 BP 126/69 11/10/19 17:27 Pulse Ox 97 11/10/19 17:27 Discharge Plan Discharge Patient Disposition: Home Health Service Condition: Stable Prescriptions: New levofloxacin 750 mg Tablet 750 mg PO Q24H Qty: 5 RF: 0 Continued Ozempic 1 mg/dose (2 mg/1.5 mL) pen injector 1 mg SUBCUT Q7D RF: 0 potassium chloride 20 mEq tablet extended release 40 meq PO BID 3 Days Qty: 12 RF: 0 pregabalin 150 mg capsule 150 mg PO BID RF: 0 tamsulosin 0.4 mg capsule 0.4 mg PO BEDTIME RF: 0 losartan 100 mg tablet 100 mg PO DAILY RF: 0 Eliquis 5 mg tablet 5 mg PO BID RF: 0 multivitamin Tablet 1 tab PO DAILY RF: 0 cholecalciferol (vitamin D3) [Vitamin D3] 2,000 unit Tablet 2,000 unit PO DAILY RF: 0 Lantus U-100 Insulin 61 units SUBCUT BEDTIME RF: 0 isosorbide mononitrate 30 mg Tablet Extended Release 24 Hr 60 mg PO DAILY Qty: 30 RF: 0 polyethylene glycol 3350 [Miralax] 17 gram Powder In Packet 17 g PO DAILY PRN (Reason: Constipation) RF: 0 hydrocodone-acetaminophen 10-325 mg Tablet 1 tab PO BID PRN (Reason: Pain) RF: 0 capsaicin 0.025 % Cream 1 applic TOPICAL QID PRN (Reason: UNKNOWN) RF: 0 ammonium lactate 5 % Lotion 1 applic TOPICAL BID PRN (Reason: UNKNOWN) RF: 0 fluticasone propionate 50 mcg/actuation [place],Suspension 1 - 2 spray INTRANASAL DAILY RF: 0 Combivent Respimat 20-100 mcg/actuation Mist 1 puff INHALATION Q6H PRN (Reason: Shortness Of Breath) RF: 0 finasteride 5 mg tablet 5 mg PO DAILY RF: 0 metolazone 2.5 mg tablet 2.5 mg PO DAILY Qty: 30 RF: 4 Tylenol Extra Strength 500 mg Tablet 1,000 mg PO TID PRN (Reason: Pain) RF: 0 Lasix 80 mg Tablet 80 mg PO DAILY RF: 0 Changed amlodipine 10 mg Tablet 5 mg PO DAILY Qty: 30 RF: 0 Held rosuvastatin 10 mg Tablet 10 mg PO DAILY RF: 0 Hold Instructions: Resume on 11/14/19. Discontinued clonidine HCl 0.1 mg Tablet 0.1 mg PO BID RF: 0 bumetanide 2 mg tablet 2 mg PO BID Qty: 60 RF: 3 Discharge Orders: Discharge Order (Routine); Ordered 11/10/19 Ordered By: Angeles Leiva Referrals: Maricruz Alexander MD [Referring] - 4-7 days (You have a follow up appointment with Dr. Alexander on November 16 at 1:30pm) Discharge Diet: Cardiac and Diabetic Discharge Activity: Increase activity as tolerated and Use walker/crutches as instructed Patient Instructions: Levofloxacin (By mouth), Acute Kidney Injury (DC), Rhabdomyolysis (DC), Leukocytosis (DC) Discharge Date/Time: 11/10/19 16:55 Discharge Attestations Time Spent in Discharge Care*: greater than 30 min Specific Discharge Activities: Specific discharge activities: educating patient, discussing with manager rn case/social workers/dc planners, documenting/other paperwork and evaluating patient/reviewing data Status at Discharge: Cognitive status at discharge: cognitively intact , Behavioral status at discharge: cooperative , Functional status at discharge: uses cane/walker Overall status at discharge: patient is progressing back to baseline Quality Metrics Clinical Quality Measures During this hospital stay, did patient experience: None Coding Level of Care Code Acute Campus Administrative Assistant for Chg Fwd Diagnoses Leukocytosis D72.829 Leukocytosis type: unspecified Acute renal impairment N28.9 Rhabdomyolysis M62.82 Rhabdomyolysis type: non-traumatic Atrial fibrillation I48.11 Atrial fibrillation type: longstanding persistent Chronic kidney disease N18.3 Chronic kidney disease stage: stage 3 (moderate) Diabetes mellitus, type II E11.42; Z79.4 Diabetes mellitus manager terminal insulin use: with manager terminal use Diabetes mellitus complication status: with neurologic complications Diabetes mellitus complication detail: with polyneuropathy Diabetic neuropathy associated with type 2 diabetes mellitus E11.42 Diabetes mellitus complication detail: diabetic polyneuropathy Congestive heart failure I50.32 Heart failure chronicity: chronic Heart failure type: diastolic Hypertension I15.8 Hypertension type: other secondary hypertension Obesity E66.01; Z68.39 Obesity type: due to excess calories Obesity classification: adult class 2 (BMI 35 - 39.9) Serious obesity comorbidity presence: with serious comorbidity Body mass index: BMI 39.0-39.9 BPH NOS w/o ur obs/LUTS N40.0 PVD (peripheral vascular disease) I73.9 Obstructive sleep apnea G47.33
== END 2019-11-10 16:55 | disposition home health service (06) | DRG 683 ==
LOC: ER 11:39 → MEDSURG 14:40
PROVIDERS: Family Medicine; Admitting Provider Family Medicine; Visit Provider Family Medicine
DX: N17.9 Acute kidney failure, unspecified (principal); M62.82 Rhabdomyolysis; I48.20 Chronic atrial fibrillation, unspecified; I50.32 Chronic diastolic (congestive) heart failure; I13.0 Hypertensive heart and chronic kidney disease with heart failure and stage 1 through stage 4 chronic kidney disease, or unspecified chronic kidney disease; Z68.41 Body mass index [BMI] 40.0-44.9, adult; N18.3 Chronic kidney disease, stage 3 (moderate); Z79.01 Long term (current) use of anticoagulants; E11.22 Type 2 diabetes mellitus with diabetic chronic kidney disease; E66.9 Obesity, unspecified; N40.0 Benign prostatic hyperplasia without lower urinary tract symptoms; G47.33 Obstructive sleep apnea (adult) (pediatric); F43.12 Post-traumatic stress disorder, chronic; G89.29 Other chronic pain; M54.9 Dorsalgia, unspecified; Z79.891 Long term (current) use of opiate analgesic; E87.6 Hypokalemia; E11.51 Type 2 diabetes mellitus with diabetic peripheral angiopathy without gangrene; Z20.828 Contact with and (suspected) exposure to other viral communicable diseases; E78.5 Hyperlipidemia, unspecified; M19.90 Unspecified osteoarthritis, unspecified site; I25.10 Atherosclerotic heart disease of native coronary artery without angina pectoris; F17.210 Nicotine dependence, cigarettes, uncomplicated; E11.40 Type 2 diabetes mellitus with diabetic neuropathy, unspecified; N20.0 Calculus of kidney
CPT/HCPCS: 12345; 36415; 36416; 36600; 71045; 74176; 76770; 76857; 80051; 80053; 81001; 82009; 82140; 82550; 82810; 82962; 83036; 83690; 83986; 84443; 85025; 87040; 87205; 87426; 92523; 92610; 93005; 96372; 97110; 97116; 97162; 99283; J1815 ×2; J1956; J3480; J7040

== ENCOUNTER 2020-01-02 13:01 | Outpatient (CLI) | payer OTHER, SELFPAY | END 2020-01-02 13:02 | disposition home or self-care (01) | LOC: WOUND 13:02 | PROVIDERS: Visit Provider Nurse Practitioner Family | DX: E11.622 Type 2 diabetes mellitus with other skin ulcer (principal); L97.811 Non-pressure chronic ulcer of other part of right lower leg limited to breakdown of skin; L97.822 Non-pressure chronic ulcer of other part of left lower leg with fat layer exposed | CPT/HCPCS: 11042; G0463 ==

== ENCOUNTER 2020-01-05 10:33 | Outpatient (CLI) | payer OTHER, SELFPAY | END 2020-01-05 10:34 | disposition home or self-care (01) | LOC: WOUND 10:33 | PROVIDERS: Visit Provider Surgery | DX: E11.622 Type 2 diabetes mellitus with other skin ulcer (principal); L97.812 Non-pressure chronic ulcer of other part of right lower leg with fat layer exposed; L97.822 Non-pressure chronic ulcer of other part of left lower leg with fat layer exposed | CPT/HCPCS: 29581 ==

== ENCOUNTER 2020-01-09 14:15 | Outpatient (CLI) | payer OTHER, SELFPAY | END 2020-01-09 14:16 | disposition home or self-care (01) | LOC: WOUND 14:16 | PROVIDERS: Visit Provider Nurse Practitioner Family | DX: E11.622 Type 2 diabetes mellitus with other skin ulcer (principal); L97.822 Non-pressure chronic ulcer of other part of left lower leg with fat layer exposed; L97.812 Non-pressure chronic ulcer of other part of right lower leg with fat layer exposed | CPT/HCPCS: 11042 ==

== ENCOUNTER 2020-01-16 13:28 | Outpatient (CLI) | payer OTHER, SELFPAY | END 2020-01-16 13:29 | disposition home or self-care (01) | LOC: WOUND 13:29 | PROVIDERS: Visit Provider Thoracic Surgery (Cardiothoracic Vascular Surgery) | DX: E11.622 Type 2 diabetes mellitus with other skin ulcer (principal); L97.812 Non-pressure chronic ulcer of other part of right lower leg with fat layer exposed | CPT/HCPCS: 11042 ==

== ENCOUNTER 2020-01-20 15:02 | Outpatient (CLI) | payer OTHER, SELFPAY | END 2020-01-20 15:03 | disposition home or self-care (01) | LOC: WOUND 15:03 | PROVIDERS: Visit Provider Surgery | DX: E11.622 Type 2 diabetes mellitus with other skin ulcer (principal); L97.812 Non-pressure chronic ulcer of other part of right lower leg with fat layer exposed; L97.822 Non-pressure chronic ulcer of other part of left lower leg with fat layer exposed | CPT/HCPCS: 29581 ==

== ENCOUNTER 2020-01-23 13:51 | Outpatient (CLI) | payer OTHER, SELFPAY | END 2020-01-23 13:52 | disposition home or self-care (01) | LOC: WOUND 13:52 | PROVIDERS: Visit Provider Thoracic Surgery (Cardiothoracic Vascular Surgery) | DX: E11.622 Type 2 diabetes mellitus with other skin ulcer (principal); L97.812 Non-pressure chronic ulcer of other part of right lower leg with fat layer exposed; E11.621 Type 2 diabetes mellitus with foot ulcer; L97.522 Non-pressure chronic ulcer of other part of left foot with fat layer exposed | CPT/HCPCS: 11042; L3260 ==

== ENCOUNTER 2020-01-30 13:52 | Outpatient (CLI) | payer OTHER, SELFPAY | END 2020-01-30 13:53 | disposition home or self-care (01) | LOC: WOUND 13:52 | PROVIDERS: Visit Provider Thoracic Surgery (Cardiothoracic Vascular Surgery) | DX: E11.622 Type 2 diabetes mellitus with other skin ulcer (principal); L97.812 Non-pressure chronic ulcer of other part of right lower leg with fat layer exposed; E11.621 Type 2 diabetes mellitus with foot ulcer; L97.522 Non-pressure chronic ulcer of other part of left foot with fat layer exposed | CPT/HCPCS: 11042 ==

== ENCOUNTER 2020-02-06 13:47 | Outpatient (CLI) | payer OTHER, SELFPAY | END 2020-02-06 13:48 | disposition home or self-care (01) | LOC: WOUND 13:48 | PROVIDERS: Visit Provider Thoracic Surgery (Cardiothoracic Vascular Surgery) | DX: E11.622 Type 2 diabetes mellitus with other skin ulcer (principal); L97.812 Non-pressure chronic ulcer of other part of right lower leg with fat layer exposed; E11.621 Type 2 diabetes mellitus with foot ulcer; L97.521 Non-pressure chronic ulcer of other part of left foot limited to breakdown of skin | CPT/HCPCS: 11042 ==

== ENCOUNTER 2020-02-09 13:40 | Outpatient (CLI) | payer OTHER, SELFPAY | END 2020-02-09 13:41 | disposition home or self-care (01) | LOC: WOUND 13:41 | PROVIDERS: Visit Provider Thoracic Surgery (Cardiothoracic Vascular Surgery) | DX: E11.622 Type 2 diabetes mellitus with other skin ulcer (principal); L97.812 Non-pressure chronic ulcer of other part of right lower leg with fat layer exposed; L97.822 Non-pressure chronic ulcer of other part of left lower leg with fat layer exposed | CPT/HCPCS: 29581 ==

== ENCOUNTER 2020-02-13 13:40 | Outpatient (CLI) | payer OTHER, SELFPAY | END 2020-02-13 13:41 | disposition home or self-care (01) | LOC: WOUND 13:41 | PROVIDERS: Visit Provider Nurse Practitioner Family | DX: E11.622 Type 2 diabetes mellitus with other skin ulcer (principal); L97.811 Non-pressure chronic ulcer of other part of right lower leg limited to breakdown of skin; E11.621 Type 2 diabetes mellitus with foot ulcer; L97.521 Non-pressure chronic ulcer of other part of left foot limited to breakdown of skin | CPT/HCPCS: 11042 ==

== ENCOUNTER 2020-02-16 14:46 | Outpatient (CLI) | payer OTHER, SELFPAY | END 2020-02-16 14:47 | disposition home or self-care (01) | LOC: WOUND 14:48 | PROVIDERS: Visit Provider Nurse Practitioner Family | DX: E11.621 Type 2 diabetes mellitus with foot ulcer (principal); L97.521 Non-pressure chronic ulcer of other part of left foot limited to breakdown of skin; E11.622 Type 2 diabetes mellitus with other skin ulcer; L97.812 Non-pressure chronic ulcer of other part of right lower leg with fat layer exposed; L97.822 Non-pressure chronic ulcer of other part of left lower leg with fat layer exposed | CPT/HCPCS: 29581 ==

== ENCOUNTER 2020-03-19 13:53 | Outpatient (CLI) | payer OTHER, SELFPAY | END 2020-03-19 13:54 | disposition home or self-care (01) | LOC: WOUND 13:54 | PROVIDERS: Visit Provider Nurse Practitioner Family | DX: Z09 Encounter for follow-up examination after completed treatment for conditions other than malignant neoplasm (principal) | CPT/HCPCS: A6545; G0463 ==

== ENCOUNTER → 2020-06-05 12:07 | Outpatient (BNVA) | payer OTHER, SELFPAY | PROVIDERS: PCP Family Medicine; Visit Provider Internal Medicine Cardiovascular Disease | DX: I50.32 Chronic diastolic (congestive) heart failure (principal); I50.33 Acute on chronic diastolic (congestive) heart failure; R06.02 Shortness of breath; I73.9 Peripheral vascular disease, unspecified; I48.19 Other persistent atrial fibrillation | CPT/HCPCS: 80048; 83880 ==

== ENCOUNTER 2020-06-12 07:03 | Outpatient (CLI) | payer OTHER, SELFPAY ==
--- NOTE | 2020-06-12 07:00 | XR_ITS ---
WS: [id number] KUB, AP view, 06/12/2020 Clinical Data: URETERAL STONE Comparison: KUB, 09/12/2019. Findings: There are bilateral calcifications overlying the kidneys. There are phleboliths in the true pelvis. There is no bowel dilatation or evidence of obstruction. XR/XR KUB [id number] Impression: Bilateral calcifications overlying the kidneys.
== END 2020-06-12 07:04 | disposition home or self-care (01) ==
LOC: RAD 07:04
PROVIDERS: PCP Family Medicine; Visit Provider Urology
DX: N20.1 Calculus of ureter (principal); N20.0 Calculus of kidney
CPT/HCPCS: 74018; 81003

== ENCOUNTER 2020-07-24 06:00 | Outpatient (RCR) | payer OTHER, SELFPAY | END 2020-07-27 23:59 | disposition home or self-care (01) | LOC: MPT 06:00 | PROVIDERS: PCP Family Medicine; Referring Provider Nurse Practitioner Family; Visit Provider Nurse Practitioner Family | DX: M54.5 Low back pain (principal) | CPT/HCPCS: 97110; 97162 ==

== ENCOUNTER 2020-07-28 06:00 | Outpatient (RCR) | payer OTHER, SELFPAY | END 2020-08-27 23:59 | disposition home or self-care (01) | LOC: MPT 06:00 | PROVIDERS: PCP Family Medicine; Referring Provider Nurse Practitioner Family; Visit Provider Nurse Practitioner Family | DX: M54.5 Low back pain (principal) | CPT/HCPCS: 97110; 97140; G0283 ==

== ENCOUNTER 2020-08-28 06:00 | Outpatient (RCR) | payer OTHER, SELFPAY | END 2020-09-26 23:59 | disposition home or self-care (01) | LOC: MPT 06:00 | PROVIDERS: PCP Family Medicine; Referring Provider Nurse Practitioner Family; Visit Provider Nurse Practitioner Family | DX: M54.5 Low back pain (principal) | CPT/HCPCS: 97110; 97140; G0283 ==

== ENCOUNTER 2020-09-13 12:43 | Outpatient (CLI) | payer OTHER, SELFPAY ==
--- NOTE | 2020-09-13 | CT_ITS ---
WS: [id number] CT LUMBAR SPINE, noncontrast. HISTORY: SPINAL STENOSIS LUMBAR REGION TECHNIQUE: Contiguous 2.5 mm axial imaging are performed. Sagittal and coronal reformats are submitte d and reviewed. All CT scans at [facility] use at least one of these dose optimization te chniques: automated exposure control; mA and/or kV adjustment per patient size (includes targeted exa ms where dose is matched to clinical indication); or iterative reconstruction. IV contrast: None DLP: 2084.76 mGycm COMPARISON: 11/15/2018 Normal posterior lumbar alignment. Schmorl's node defect at L3 vertebral body. No fractures. No anter olisthesis identified on supine imaging. Please note the S1 vertebral body is lumbarized. This numbering pattern will be important if surgery is contemplated in this patient. L1-2: Normal. L2-3: Normal. L3-4: Very mild annular disc bulging and osteophytic ridging with facet and ligamentum flavum disease . Mild to moderate narrowing of the foramen bilaterally and mild central stenosis. L4-5: Diffuse annular disc bulging and osteophytic ridging. Encroachment into the lateral recesses an d central canal with ligamentum flavum hypertrophy. Mild central stenosis. Moderate to severe bilater al foraminal and subarticular recess stenosis. L5-S1: Diffuse annular disc bulging and osteophytic ridging. Advanced facet joint arthritis with air in the facet joint on the LEFT. There is significant osteophyte and disc encroachment into the subart icular recesses and foramina. Moderate to severe bilateral foraminal and subarticular recess stenosis . S1-S2 disc is rudimentary. Moderate atherosclerotic plaque within the aorta. No aneurysm. CT/CT lumbar spine wo con* [id number] IMPRESSION: 1. Please note there are 5 lumbar vertebral bodies and the S1 vertebral body i s lumbarized. This numbering pattern will be important if surgery is contemplat ed in this patient. 2. Moderate to severe bilateral foraminal and subarticular recess stenosis at L4-5 with mild central stenosis. 3. Moderate to severe bilateral foraminal subarticular recess stenosis at L5-S 1 with mild central stenosis. 4. Mild to moderate foraminal narrowing central stenosis at L3-4. 5. Minimal progression of stenosis since 11/15/2018.
--- NOTE | 2020-09-13 13:05 | XR_ITS ---
WS: [id number] LATERAL LUMBAR SPINE: 3 view. Lateral radiographs are performed in upright neutral, flexion and extension to the patient's toleranc e. HISTORY: SPINAL STENOSIS OF LUMBAR REGION COMPARISON: None available. L4 anterolisthesis by 7 mm on neutral imaging. L4 retrolisthesis by 8 mm during flexion and 7 mm duri ng extension. There is advanced facet joint arthritis at L4-5. The remaining vertebral bodies are nor latanya aligned. Mild disc space narrowing at L3-4 and L5-S1. No fractures. No instability. Scattered a therosclerotic plaque within the aorta. XR/XR lumbar spine f/e only [id number] IMPRESSION: 1. Grade 1 anterolisthesis of L4 with no instability. 2. Advanced facet joint arthritis at L4-5.
== END 2020-09-13 12:44 | disposition home or self-care (01) ==
PROVIDERS: PCP Family Medicine; Visit Provider Anesthesiology Pain Medicine
DX: M48.062 Spinal stenosis, lumbar region with neurogenic claudication (principal); M47.816 Spondylosis without myelopathy or radiculopathy, lumbar region
CPT/HCPCS: 72120; 72131

== ENCOUNTER 2020-10-25 08:48 | Outpatient (CLI) | payer OTHER, MEDICARE, SELFPAY ==
--- NOTE | 2020-10-25 09:27 | NMCV_ITS ---
NM steff perf SPECT r/s* [id number] Giles Guillaume Age: 70 Gender: M : 1950 Exam Date: 10/25/2020 10:07 Ordering Phys: Refugio Kraus MD ([email or web address]) Technologist: JEB Cooper Exam Location: [facility] Indications: SHORTNESS OF BREATH STRESS TEST Please see separate stress test report in [facility] for full findings IMAGE PROTOCOL Rest/Stress 1 Lexiscan Day Radiopharmaceutical Dose (mCi) Administration Site Administered by Rest: Tc-99m 11.0 IV JEB Cooper Sestamibi Stress:Tc-99m 33.0 IV JEB Samano Sestamibi Rest: 25-Oct-2020 60 Discovery 630 Stress: 25-Oct-2020 30 Discovery 630 0.4mg Lexiscan. Supine position only as patient was unable to lay prone. SPECT RESULTS Technical Quality: Excellent Raw Data Analysis: Image Corrections: Summed Stress Score: 12 Summed Rest Score: 14 Summed Difference Score: 2 PERFUSION FINDINGS Myocardial perfusion imaging revealing moderate to large areas of decreased tracer uptake in the basal mid and apical inferior, basal and mid inferolateral, anterolateral, anterior and apical lateral segments. Subtle areas of reversibility was noted in the basal anterior and basal inferior wall regions. FUNCTIONAL RESULTS (calculated via Gated SPECT) Stress Image LV EF (%): 60 Stress EDV (mL):132 TID: 1.01 Stress ESV (mL):53 FUNCTIONAL FINDINGS: Segmental wall motion analysis revealed no gross wall motion abnormalities. IMPRESSIONS 1. Myocardial perfusion imaging revealing moderate to large areas of persistent decreased tracer uptake in the inferior, inferolateral, anterolateral anterior regions with subtle areas of reversibility in the basal inferior and basal anterior regions, suggestive of extensive myocardial scarring with a very small areas of mustapha-infarction ischemia, in the distribution of the left anterior descending artery/right coronary artery. Since LV ejection fraction is within normal limits with no wall motion of normalities, attenuation artifacts causing this also is a strong consideration. 2. Normal LV ejection fraction 60%. 3. LV wall motion analysis revealing no gross wall motion normalities. 4. Normal LV volume. No similar previous studies are available for comparison Dr Refugio Kraus MD [facility] (Electronically Signed) Final Date: 25 October 2020 14:54 S
--- NOTE | 2020-10-25 09:27 | ECG_ITS ---
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 Interpretive Statements NAME OF STUDY: LEXISCAN SESTAMIBI STRESS TEST INDICATION: Chest Pain, PROCEDURE: At the baseline, the EKG revealed atrial fibrillation with a controlled ventricular response rate of 78 bpm. Right bundle branch block. Diffuse nonspecific ST-T changes. The baseline blood pressure was 151/72 mm Hg with a heart rate of 78 beats/min. Lexiscan was infused over a period of 20 seconds. A total of 0.4 milligrams of Lexiscan was infused. The stress phase was continued for a total of 5 minutes. Heart rate at the end of the stress phase was 89 with a blood pressure 117/86. The EKG at the peak infusion revealed no significant changes. Sestamibi was injected 20 seconds after the Lexiscan infusion. Blood pressure at the end of the recovery phase was 138/45 with a heart rate of 113 per minute. CONCLUSION: 1. No significant EKG changes with the LexiScan infusion 2. No LexiScan induced chest pain or cardiac arrhythmia 3. Normal blood pressure and heart rate response 4. Sestamibi/sestamibi perfusion scan pending; see separate report. Electronically Signed On 10-26-2020 9:47:01 CDT by Refugio Kraus M.D. [email or web address]
[2020-10-25 09:30] VITALS: BMI 41.5
[2020-10-25 11:10] VITALS: BP 137/67; PULSE 90
[2020-10-25] MEDS: regadenoson 0.4 Mg/5 ml Syringe IVP (11:11)
--- NOTE | 2020-10-25 13:30 | USCV_ITS ---
Giles Guillaume Age: 70 Gender: M : 1950 Exam Date: 10/25/2020 09:48 Ordering Phys: Refugio Kraus MD ([email or web address]) Technologist: Rosaura Montes [place]am [place] [facility] [place] Indication: leg pain Risk Factors: diabetes Previous Vascular Surgery: None RIGHT LEFT BP: 165.0 / 95.00 BP: / 0 Waveform Velocity (cm/s) Velocity (cm/s) Waveform Triphasic 102.5 Iliac Prox 136.7 Triphasic Triphasic 109.6 Iliac Mid 166.2 Triphasic Triphasic 85.8 Iliac Distal 139.8 Triphasic Triphasic 170.0 FACILITIES MAINTENANCE SUPERVISOR 108.8 Triphasic Triphasic 98.6 SFA Prox 85.4 Biphasic Triphasic SFA Mid Biphasic 132.8 312.2 Triphasic 96.0 SFA Dist 121.2 Biphasic 49.6 POP 50.4 Biphasic Monophasic 14.5 REPORTING DEVELOPER 73.5 Biphasic Biphasic 41.1 DPA 28.3 Biphasic 0.8 TIKI FINDINGS RT DPA 128, RT REPORTING DEVELOPER 140 LT DPA >220, LT REPORTING DEVELOPER 120 Moderate plaques at the common femoral artery and superficial femoral artery on the right side. Moderate to heavy heterogeneous plaques in the left and mid to distal superficial femoral artery . Doppler flow velocity in the left mid SFA TIKI on the left side was not obtained. The right TIKI was 0.8. CONCLUSIONS 1. Moderate to heavy plaque in the left superficial femoral artery with abnormal Doppler flow velocity, suggestive of greater than 60% stenosis in this region. The TIKI could not be obtained because of the noncompressible vessel on the left side. 2. Moderate plaques in the right common femoral and femoral arteries with a diminished resting TIKI, suggestive of moderate peripheral arterial disease. Dr Refugio Kraus MD [facility] (Electronically Signed) Final Date: 26 October 2020 16:31 S
== END 2020-10-25 08:49 | disposition home or self-care (01) ==
PROVIDERS: PCP Family Medicine; Visit Provider Internal Medicine Cardiovascular Disease
DX: R07.9 Chest pain, unspecified (principal); M79.604 Pain in right leg; M79.605 Pain in left leg
CPT/HCPCS: 78452; 93017; 93925; A9500; J2785

== ENCOUNTER 2020-11-01 12:57 | Emergency (ER) | payer OTHER, MEDICARE, SELFPAY ==
[2020-11-01 14:43] VITALS: BP 165/90; PULSE 94; RESP 20; TEMP 37.3; O2SAT 93
--- NOTE | 2020-11-01 15:10 | USCV_ITS ---
Giles Guillaume Age: 70 Gender: M : 1950 Exam Date: 11/01/2020 15:31 Ordering Phys: Roberto Keys DO Technologist: JOSE CRUZ Exam Location: [facility] [place] Indication: LOWER LEGS ARE RED WITH BLISTERS HISTORY: Bilateral lower leg edema with blisters PROCEDURES: The venous duplex Doppler examination of both lower extremities was performed in the standard fashion. The following venous structures were evaluated: common femoral vein, profunda vein, proximal portion of the greater saphenous vein, superficial femoral vein, and the popliteal vein. In addition, the posterior tibial and peroneal trunk were evaluated. Serial compression, augmentation maneuvers, and spectral Doppler flow evaluation were performed. FINDINGS: Normal 2-D Doppler and augmentation and compressibility throughout the lower extremity venous structures. Additional imaging through the proximal calf veins also reveals no thrombus. Limited evaluation of the greater saphenous vein is patent with no thrombus. Bilateral subcutaneous edema. CONCLUSIONS No DVT bilateral lower extremities. Dr. Iza Carroll DO (Electronically Signed) Final Date: 01 November 2020 16:05 S
[2020-11-01 17:28] LABS: Basophils # 0.1 10^3/uL (0.0-0.1); Basophils % 0.3 %; Eosinophils % 0.1 %; Hematocrit 44.4 % (42.0-52.0); Hemoglobin 14.6 g/dL (11.7-16.6); Lymphocytes # 2.4 10^3/uL (0.8-4.8); Lymphocytes % 15.4 %; Mean Corpuscular HGB Conc 32.9 g/dL (30.0-36.0); Mean Corpuscular Hemoglobin 28.7 pg (28.0-34.0); Mean Corpuscular Volume 87.4 fL (80-94); Mean Platelet Volume 9.9 fL (7.4-10.4); Monocytes % 6.4 %; Neutrophils # 12.09 10^3/uL (1.8-7.7); Neutrophils % 77.5 %; Nucleated Red Blood Cells % 0 %; Platelet Count 252 10^3/cmm (130-400); Red Blood Count 5.08 10^6/uL (4.1-5.3); Red Cell Distribution Width 12.5 % (12.1-15.1); White Blood Count 15.6 10^3/uL (4.0-10.0)
[2020-11-01 17:56] LABS: Alanine Aminotransferase 11 U/L (0-41); Albumin Level 4.1 g/dL (3.5-5.2); Alkaline Phosphatase 95 IU/L (40-130); Anion Gap 15.6 (5-19); Aspartate Amino Transferase 17 U/L (0-40); Blood Urea Nitrogen 10 mg/dL (8-23); Carbon Dioxide 31 mmol/L (22-29); Chloride 101 mmol/L (98-107); Globulin 2.7 g/dL (1.3-4.6); Glucose 127 mg/dL (65-115); Osmolality Calculated 297 mOsm/kg (285-295); Potassium 4.6 mmol/L (3.5-5.1); Sodium 143 mmol/L (136-145); Total Bilirubin 0.6 mg/dL (0.15-1.2); Total Protein 6.8 g/dL (6.6-8.7)
[2020-11-01 18:52] VITALS: PULSE 91; RESP 22; TEMP 37.2; O2SAT 96
--- NOTE | 2020-11-01 19:13 | W.ED.EXTPRO ---
HPI - Extremity Problem General: Chief complaint: Extremity Problem,Nontraumatic Stated complaint: SENT BY [facility] Time Seen by Provider: 11/01/20 19:05 Source: patient Mode of arrival: ambulatory Limitations: no limitations History of Present Illness: HPI Narrative: 70-year-old male has a history of chronic leg pain along with edema states that he has had some increased pain and swelling to his legs especially his right leg. He states he is worried he may have a blood clot in his right leg. He states he is also had some erythema as well with low-grade fevers at home. Denies any worsening improving factors. Patient's been ambulatory. Denies any shortness of breath. Associated symptoms: Deny chest pain, fever(s) or rash Review of Systems Const: Denies: fever(s), chills, body aches or change in appetite Eyes: Denies: blurry vision or eye discomfort ENMT: Denies: throat pain or dental pain Card: Denies: chest pain Resp: Denies: dyspnea GI: Denies: abdominal pain, nausea, vomiting or diarrhea : Denies: dysuria Musc: Reports: extremity pain and extremity swelling Skin/Breast: Denies: rash Neuro: Denies: headache(s) Psych: Denies: depression Bharat/Lymph: Denies: easy bruising All/Imm: Denies: urticaria [facility] ED PFSH: Medical History Atrial fibrillation -Known history of chronic atrial fibrillation, currently rate controlled -Telemetry monitoring -on anticoagulation with Eliquis -Was previously on Coreg with noted bradycardia so discontinued BPH NOS w/o ur obs/LUTS -follows with [facility] -on finasteride and Flomax Chronic kidney disease Congestive heart failure -Has known history of chronic diastolic CHF -Clinically does not appear decompensated -Hold diuretics for now to allow for rehydration and due to acute renal impairment -Last echo done with contrast showed left ventricular ejection fraction of around 60% with normal ventricular size and systolic function -Follows up with Dr. Nickerson -Has been on high doses of diuretics which he thinks are not effective Coronary artery disease Evaluated in [place], patient reports 55% narrowing unknown vessel no stent or angioplasty done CVA (cerebral vascular accident) residual right weakness Diabetes mellitus, type II -A1c-8.4 -Accu-Cheks, hypoglycemia precautions, on Lantus, ISS -Consistent carb diet as tolerated -Hold Victoza Diabetic neuropathy associated with type 2 diabetes mellitus Hyperlipidemia Hypertension -Normotensive currently, monitor vital signs -Hold diuretics, ARB due to renal impairment -Hold clonidine as patient reports low blood pressure readings at home with associated lightheadedness -on amlodipine at lower dose to prevent hypotension Obesity -BMI-42 kg/m2 Obstructive sleep apnea not on treatment by choice Osteoarthritis PVD (peripheral vascular disease) -Hold statin due to rhabdomyolysis -Had arterial duplex done in August showing features associated with moderately severe PAD bilaterally -Would likely benefit from further evaluation Renal calculus, right follows with [facility] Surgical History No pertinent past surgical history Family History Mother , 87 Diabetes CAD (coronary artery disease) Hypertension Father , 60 No problems noted. Social History Smoking and tobacco status: smoker, details unknown pipe Pipes smoked per week: 1 Years smoked pipe: 54 Alcohol intake: former Year of sobriety/quit date alcohol: 26 y Former alcohol use details: heavy use, 5 DWI's Last substance use date: 11/29/19 Household members: none Housing: House Marital status: service: Yes Current occupational status: retired History of recent travel: No Physical Exam Const: COMMON NORMALS: no acute distress, patient oriented x3 and healthy appearing HENMT: COMMON NORMALS: normocephalic and atraumatic HEAD & SCALP: normocephalic and atraumatic Eye: COMMON NORMALS: Equal, round and reactive pupils present and EOMs intact bilaterally PUPIL: Yes Equal, round and reactive pupils present Neck/C-Spine: COMMON NORMALS: full ROM and supple Chest: COMMONS NORMALS: normal inspection of the chest and normal palpation of entire chest wall Resp: COMMON NORMALS: normal respiratory effort, No retractions, No use of accessory muscles and clear to auscultation bilaterally AUSCULTATION: clear to auscultation bilaterally Cardio: COMMON NORMALS: regular rate, regular rhythm and No murmurs present (Cardio) RATE: regular rate RHYTHM: regular rhythm GI: COMMON NORMALS: Normal to inspection, nondistended, normoactive bowel sounds present, Soft to palpation, non-tender and no masses PALPATION: Yes Soft to palpation Extremity: COMMON NORMALS: full ROM NARRATIVE EXTREMITY EXAM: 1+ edema to bilateral extremities distal pulses intact in both extremities does have some erythema to the right lower leg Neuro: COMMON NORMALS: patient oriented x3, moves all extremities and no focal motor deficits Psych: COMMON NORMALS: mental status grossly normal, Normal thought process present and cooperative THOUGHT PROCESS: Normal thought process present Skin: COMMON NORMALS: no rashes or lesions noted and no wounds GENERAL SKIN EXAM: no rashes or lesions noted Course Vital Signs: Vital signs: Vital Signs Temperature 98.9 F 11/01/20 18:52 Pulse Rate 95 11/01/20 19:30 Respiratory Rate 20 H 11/01/20 19:30 Blood Pressure 172/92 11/01/20 19:30 Pulse Oximetry 96 11/01/20 19:30 MDM - Extremity (Nontraumatic) MDM Narrative: Medical decision making narrative: Patient presents with bilateral leg pain is chronic in nature. He has a very mild cellulitis. Ultrasound showed no signs of DVT. He is well-appearing here and is stable for discharge. Did give him an Lab Data: Labs: Lab Results 11/01/20 11/01/20 11/01/20 Range/Units 17:19 17:19 17:19 WBC 15.6 H (4.0-10.0) 10^3/ uL RBC 5.08 (4.1-5.3) 10^6/u L Hgb 14.6 (11.7-16.6) g/dL Hct 44.4 (42.0-52.0) % MCV 87.4 (80-94) fL MCH 28.7 (28.0-34.0) pg MCHC 32.9 (30.0-36.0) g/dL RDW 12.5 (12.1-15.1) % Plt Count 252 (130-400) 10^3/c mm MPV 9.9 (7.4-10.4) fL Neut % (Auto) 77.5 % Lymph % (Auto) 15.4 % Atkinson % (Auto) 6.4 % Eos % (Auto) 0.1 % Baso % (Auto) 0.3 % Neut # (Auto) 12.09 H (1.8-7.7) 10^3/u L Lymph # (Auto) 2.4 (0.8-4.8) 10^3/u L Atkinson # (Auto) 1.0 H (0.2-0.9) 10^3/u L Eos # (Auto) 0.0 (0.0-0.8) 10^3/u L Baso # (Auto) 0.1 (0.0-0.1) 10^3/u L Nucleated RBC % (a uto) 0 % Nucleated RBCs # 0.0 /100WBC Sodium 143 (136-145) mmol/L Potassium 4.6 (3.5-5.1) mmol/L Chloride 101 (98-107) mmol/L Carbon Dioxide 31 H (22-29) mmol/L Anion Gap 15.6 (5-19) BUN 10 (8-23) mg/dL Creatinine 1.1 (0.7-1.2) mg/dL GFR Calculation Not Reportable Glucose 127 H (65-115) mg/dL Calculated Osmolal ity 297 H (285-295) mOsm/k g Calcium 9.0 (8.5-10.5) mg/dL Total Bilirubin 0.6 (0.15-1.2) mg/dL AST 17 (0-40) U/L ALT 11 (0-41) U/L Alkaline Phosphata se 95 (40-130) IU/L NT-Pro-B Natriuret Pep 841 H (0-125) pg/mL Total Protein 6.8 (6.6-8.7) g/dL Albumin 4.1 (3.5-5.2) g/dL Globulin 2.7 (1.3-4.6) g/dL Discharge Plan Discharge Patient Disposition: Home Clinical Impression: Leg edema Cellulitis Qualifiers: Site of cellulitis: extremity Site of cellulitis of extremity: lower extremity Laterality: unspecified laterality Qualified Code(s): L03.119 - Cellulitis of unspecified part of limb Chronic leg pain Qualifiers: Laterality: bilateral Qualified Code(s): M79.604 - Pain in right leg Condition: Stable Prescriptions: New Bactrim DS 800-160 mg tablet 1 tab PO BID 10 Days Qty: 20 RF: 0 No Action Ozempic 1 mg/dose (2 mg/1.5 mL) pen injector 1 mg SUBCUT Q7D RF: 0 tamsulosin 0.4 mg capsule 0.4 mg PO BEDTIME RF: 0 losartan 100 mg tablet 100 mg PO DAILY RF: 0 Eliquis 5 mg tablet 5 mg PO BID RF: 0 hydralazine 25 mg tablet 25 mg PO TID 30 Days Qty: 90 RF: 5 potassium chloride 20 mEq tablet extended release 40 meq PO BID Qty: 120 RF: 3 multivitamin Tablet 1 tab PO DAILY RF: 0 cholecalciferol (vitamin D3) [Vitamin D3] 2,000 unit Tablet 2,000 unit PO DAILY RF: 0 isosorbide mononitrate 30 mg Tablet Extended Release 24 Hr 60 mg PO DAILY Qty: 30 RF: 0 Lantus U-100 Insulin 76 units SUBCUT BEDTIME RF: 0 hydrocodone-acetaminophen 10-325 mg Tablet 1 tab PO BID PRN (Reason: Pain) RF: 0 capsaicin 0.025 % Cream 1 applic TOPICAL QID PRN (Reason: UNKNOWN) RF: 0 ammonium lactate 5 % Lotion 1 applic TOPICAL BID PRN (Reason: UNKNOWN) RF: 0 rosuvastatin 10 mg Tablet 10 mg PO DAILY RF: 0 Hold Instructions: Resume on 11/14/19. finasteride 5 mg tablet 5 mg PO DAILY RF: 0 Lasix 80 mg Tablet 80 mg PO DAILY RF: 0 Discharge Orders: Discharge ED (Routine); Ordered 11/01/20 Ordered By: Terestia Engel Referrals: Maricruz Alexander MD [Primary Care Provider] - 1-3 days Discharge Diet: Advance as tolerated Discharge Activity: Resume usual activity Patient Instructions: Cellulitis (ED), Arthralgia (ED), Opioid Safety Coding Level of Care Code ED Director [employer] for [employer]ris [employer]ee
[2020-11-01 19:30] VITALS: BP 172/92; PULSE 95; RESP 20; O2SAT 96
[2020-11-01] MEDS: FUROsemide 10 mg/mL SDV 10mL 80 MG XX (19:37)
[2020-11-01] MEDS: oxyCODONE-APAP 10-325 mg Tablet 1 TAB PO (19:47)
[2020-11-01 20:00] LABS: NT Pro B Type Natriuretic Pept 841 pg/mL (0-125)
[2020-11-01 20:15] VITALS: RESP 20; TEMP 37.1
== END 2020-11-01 20:22 | disposition home or self-care (01) ==
PROVIDERS: Family Medicine; Emergency Provider Emergency Medicine; PCP Family Medicine
DX: R60.0 Localized edema (principal); G89.29 Other chronic pain; M79.604 Pain in right leg; L03.119 Cellulitis of unspecified part of limb; Z79.01 Long term (current) use of anticoagulants; Z79.4 Long term (current) use of insulin; I11.0 Hypertensive heart disease with heart failure; I50.9 Heart failure, unspecified; I25.10 Atherosclerotic heart disease of native coronary artery without angina pectoris; Z86.73 Personal history of transient ischemic attack (TIA), and cerebral infarction without residual deficits; E11.40 Type 2 diabetes mellitus with diabetic neuropathy, unspecified; E78.5 Hyperlipidemia, unspecified; F17.210 Nicotine dependence, cigarettes, uncomplicated
CPT/HCPCS: 80053; 83880; 85025; 93970; 99283; J1940

== ENCOUNTER 2020-12-18 09:31 | Outpatient (CLI) | payer OTHER, SELFPAY ==
--- NOTE | 2020-12-18 09:30 | XR_ITS ---
WS: [id number] KUB, AP view, 12/18/2020 Clinical Data: CALCULUS OF URETER Comparison: None. Findings: No abnormal intraabdominal masses are seen. There is no dilatated small bowel or evidence of obstruct ion. There are calcifications overlying the left kidney. There may be a proximal right ureteral calculus. Phleboliths are present in the right pelvis. Fecal material in colon gas obscure detail over both kid neys. Vascular calcifications are noted. XR/XR KUB [id number] Impression: 1. Probable left ureteral calcifications and possible right proximal ureteral c alcification. 2. Fecal material and bowel gas obscure both kidneys.
== END 2020-12-18 09:32 | disposition home or self-care (01) ==
PROVIDERS: Visit Provider Urology
DX: N20.1 Calculus of ureter (principal)
CPT/HCPCS: 74018; 81003

== ENCOUNTER 2021-01-22 08:10 | Outpatient (CLI) | payer OTHER, SELFPAY ==
--- NOTE | 2021-01-22 08:45 | USCV_ITS ---
Aundrea Giles Age: 70 Gender: M : 1950 Exam Date: 01/22/2021 08:23 Ordering Phys: Refugio Kraus MD ([email or web address]) Technologist: Whitney Valentin Exam Location: [facility] [place] Indication: EVAL FOR CAROTID STENOSIS Risk Factors: Previous Vascular Surgery: Right Brachial BP: / Left Brachial BP: / Right Left Velocity (cm/s) Spectral Plaque Velocity (cm/s) Spectral Plaque Syst/Diast Broadening Syst/Diast Broadening 62.10/ 17.90 Prox CCA 99.60 / 11.80 60.60/ 14.80 Mid CCA 74.30 / 13.70 69.50/ 17.40 Distal CCA 56.40 / 12.00 152.80/37.00 Prox ICA 53.00 / 12.00 52.80/ 19.40 Mid ICA 60.40 / 18.30 47.50/ 18.50 Distal ICA 56.30 / 18.10 131.50 ECA 194.30 2.20 ICA/CCA 0.61 Antegrade Vertebral Antegrade 26.30/ 11.20 cm/s 57.00/ 22.20 cm/s Tri Subclavian Tri 84.60 142.0 0 FINDINGS Moderate to heavy heterogeneous plaques of the right bifurcation and proximal internal carotid artery Mild to moderate plaques of the left bifurcation proximal internal carotid artery. Antegrade flow in the vertebral arteries bilaterally. Elevated velocity in the left external carotid artery CONCLUSIONS Moderate to heavy heterogeneous plaques of the right bifurcation and proximal internal carotid artery with the Doppler features, consistent with 50 to 69% stenosis. Mild to moderate plaques at the left bifurcation proximal internal carotid artery with Doppler features consistent with less than 50% stenosis. Elevated velocity in the external carotid artery on the left side, suggestive of hemodynamically significant stenosis. Dr Refugio Kraus MD [facility] (Electronically Signed) Final Date: 22 January 2021 22:47 S
== END 2021-01-22 08:11 | disposition home or self-care (01) ==
LOC: RAD 08:13
PROVIDERS: Visit Provider Internal Medicine Cardiovascular Disease
DX: I65.23 Occlusion and stenosis of bilateral carotid arteries (principal); I77.9 Disorder of arteries and arterioles, unspecified; R53.1 Weakness
CPT/HCPCS: 93880

== ENCOUNTER 2021-02-04 13:08 | Outpatient (CLI) | payer OTHER, SELFPAY ==
--- NOTE | 2021-02-04 14:58 | XRR_ITS ---
PROCEDURE INFORMATION: Exam: XR Right Foot Exam date and time: 02/04/2021 2:58 PM Age: 71 years old Clinical indication: Injury or trauma; Fall; Blunt trauma; Injury details: History--pt fell 01/31/21. C/O a dm type ii sore on right foot and great toe. Has neuropathy-cannot feel; Additional info: Dm type ii w/foot ulcer TECHNIQUE: Imaging protocol: XR Right foot. Views: 3 or more views. COMPARISON: CR XR foot RT min 3V* [id number] 06/21/2019 1:30 PM FINDINGS: Bones/joints: No evidence of fracture. Mild degenerative narrowing of the 1st IP and MTP joints. Soft tissues: Normal. XR/XR foot RT min 3V* [id number] IMPRESSION: No acute findings. Radiation Dose CTDIVOL = (mGy): DLP = (mGy-cm)
== END 2021-02-04 13:09 | disposition home or self-care (01) ==
LOC: WOUND 13:11
PROVIDERS: Visit Provider Nurse Practitioner Family
DX: E11.621 Type 2 diabetes mellitus with foot ulcer (principal); L97.512 Non-pressure chronic ulcer of other part of right foot with fat layer exposed; L89.152 Pressure ulcer of sacral region, stage 2
CPT/HCPCS: 11042; 73630; 87070; 87077; 87176; 87186; 87205; G0463

== ENCOUNTER → 2021-02-05 11:07 | Outpatient (BNVA) | payer OTHER, SELFPAY | PROVIDERS: Visit Provider Internal Medicine Cardiovascular Disease | DX: I11.0 Hypertensive heart disease with heart failure (principal); I50.32 Chronic diastolic (congestive) heart failure; I50.33 Acute on chronic diastolic (congestive) heart failure; Z79.01 Long term (current) use of anticoagulants; R06.02 Shortness of breath; I77.9 Disorder of arteries and arterioles, unspecified; I73.9 Peripheral vascular disease, unspecified; I48.19 Other persistent atrial fibrillation; R94.39 Abnormal result of other cardiovascular function study; R53.1 Weakness | CPT/HCPCS: 80048; 83880; 85025 ==

== ENCOUNTER → 2021-02-12 10:15 | Outpatient (BNVA) | payer OTHER, SELFPAY | PROVIDERS: Visit Provider Internal Medicine Cardiovascular Disease | DX: Z01.812 Encounter for preprocedural laboratory examination (principal); Z79.01 Long term (current) use of anticoagulants; Z20.822 Contact with and (suspected) exposure to COVID-19; R00.1 Bradycardia, unspecified; R06.02 Shortness of breath; E87.6 Hypokalemia | CPT/HCPCS: 80048; 85025; 85610; 86850; 86900; 87635 ==

== ENCOUNTER 2021-02-14 13:02 | Outpatient (CLI) | payer OTHER, SELFPAY | END 2021-02-14 13:03 | disposition home or self-care (01) | LOC: WOUND 13:03 | PROVIDERS: Visit Provider Nurse Practitioner Family | DX: I96 Gangrene, not elsewhere classified (principal); E11.621 Type 2 diabetes mellitus with foot ulcer; L97.512 Non-pressure chronic ulcer of other part of right foot with fat layer exposed; L89.152 Pressure ulcer of sacral region, stage 2; I10 Essential (primary) hypertension | CPT/HCPCS: 11042 ==

== ENCOUNTER 2021-02-28 13:02 | Outpatient (CLI) | payer OTHER, SELFPAY | END 2021-02-28 13:03 | disposition home or self-care (01) | LOC: WOUND 13:04 | PROVIDERS: Visit Provider Emergency Medicine | DX: E11.621 Type 2 diabetes mellitus with foot ulcer (principal); L97.512 Non-pressure chronic ulcer of other part of right foot with fat layer exposed; L89.152 Pressure ulcer of sacral region, stage 2 | CPT/HCPCS: 11042; 11044; 99212 ==

== ENCOUNTER 2021-03-07 13:32 | Outpatient (CLI) | payer OTHER, SELFPAY | END 2021-03-07 13:33 | disposition home or self-care (01) | LOC: WOUND 13:33 | PROVIDERS: Visit Provider Emergency Medicine | DX: Z09 Encounter for follow-up examination after completed treatment for conditions other than malignant neoplasm (principal) | CPT/HCPCS: 99212 ==

== ENCOUNTER 2021-03-11 13:46 | Emergency (ER) | payer OTHER, SELFPAY ==
--- NOTE | 2021-03-11 13:55 | ECG_ITS ---
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 Measurements Intervals [place] Rate: 96 P: MS: QRS: 75 QRSD: 142 T: 43 QT: 412 QTc: 522 Interpretive Statements ATRIAL FIBRILLATION RIGHT BUNDLE BRANCH BLOCK [120+ ms QRS DURATION, UPRIGHT V1, 40+ ms S IN I/aVL/V4/V5/V6] Compared to ECG 11/08/2019 09:39:18 No significant changes Electronically Signed On 03-11-2021 20:46:55 [employer] by Refugio Kraus M.D. [email or web address]
--- NOTE | 2021-03-11 13:55 | XR_ITS ---
WS: [id number] XR chest 1V portable [id number] REASON FOR EXAM: chest pain FINDINGS: Chest is significantly on the examination. There is mild cardiomegaly. There may be an infiltrate in the right lower lung. The left lower lung is difficult to evaluate due to the rotation of the chest. XR/XR chest 1V portable [id number] IMPRESSION: Equivocal findings in the right lower lung. Recommend repeat chest better posit ioned for more optimal evaluation of the lower lung mazariegos.
[2021-03-11 14:03] VITALS: BP 186/101; PULSE 82; RESP 20; TEMP 36.3; O2SAT 95; BMI 39.5
[2021-03-11 14:50] LABS: Basophils % 0.3 %; Eosinophils # 0.1 10^3/uL (0.0-0.8); Eosinophils % 0.7 %; Hematocrit 44.4 % (42.0-52.0); Hemoglobin 14.6 g/dL (11.7-16.6); Lymphocytes # 1.8 10^3/uL (0.8-4.8); Lymphocytes % 12.5 %; Mean Corpuscular HGB Conc 32.9 g/dL (30.0-36.0); Mean Corpuscular Hemoglobin 28.3 pg (28.0-34.0); Mean Corpuscular Volume 86.2 fl (80-94); Mean Platelet Volume 10.2 fL (7.4-10.4); Monocytes # 0.8 10^3/uL (0.2-0.9); Monocytes % 5.4 %; Neutrophils # 11.74 10^3/uL (1.8-7.7); Neutrophils % 80.7 %; Nucleated Red Blood Cells % 0 %; Platelet Count 214 10^3/cmm (130-400); Red Blood Count 5.15 10^6/uL (4.1-5.3); Red Cell Distribution Width 12.9 % (12.1-15.1); White Blood Count 14.6 10^3/uL (4.0-10.0)
[2021-03-11 15:29] LABS: Alanine Aminotransferase 14 U/L (0-41); Albumin Level 4.2 g/dL (3.5-5.2); Alkaline Phosphatase 93 IU/L (40-130); Anion Gap 16.7 (5-19); Aspartate Amino Transferase 22 U/L (0-40); Blood Urea Nitrogen 6 mg/dL (8-23); Calcium 8.7 mg/dL (8.5-10.5); Carbon Dioxide 28 mmol/L (22-29); Chloride 99 mmol/L (98-107); Creatinine Clr Calc Pharmacy 107.4266; Globulin 2.2 g/dL (1.3-4.6); Glucose 96 mg/dL (65-115); Osmolality Calculated 287 mOsm/kg (285-295); Potassium 3.7 mmol/L (3.5-5.1); Sodium 140 mmol/L (136-145); Total Bilirubin 0.6 mg/dL (0.15-1.2); Total Protein 6.4 g/dL (6.6-8.7)
[2021-03-11 15:32] LABS: Troponin(5th) Baseline 38 ng/L (0-15)
--- NOTE | 2021-03-11 16:44 | ED_ITS ---
HPI - Chest Pain General: Chief Complaint: Chest Pain Stated Complaint: CHEST PAIN/HIGH BP Time Seen by Provider: 03/11/21 16:15 History of Present Illness: HPI narrative: 71-year-old male presents emergency room complaining of elevated blood pressure mild intermittent chest discomfort. He is on apixaban due to atrial fibrillation. He has been intermittently will have periods where his blood pressure is markedly elevated accompanied with headaches. He is not having difficulty walking his any difficulty speech or swallowing. He is not recently changed running out of or missed any doses of his medications. He gets intermittent left-sided chest discomfort that does not radiate and is not associated with any diaphoresis nausea vomiting or shortness of breath. He does have an ongoing work-up for evaluation for chest discomfort and was advised evidently to have an angiogram but has not yet had it done. Patient has had significant blood pressure elevation as well. MD complaint: chest discomfort Pertinent past history: coronary artery disease Onset (ago): week(s) Timing of current episode: episodic Prior episodes: Yes Onset: during rest and during exertion Pain location: left chest Pain radiation: none Severity: mild Quality: tightness and aching Relieving factors: nothing Exacerbating factors: nothing Associated symptoms: Reports dyspnea and leg edema; Deny abdominal pain, diaphoresis, fever(s), nausea, palpitations, sense of i mpending doom, syncope or vomiting Treatment prior to arrival: none Review of Systems Const: Denies: fever(s) or diaphoresis ENMT: Denies: throat pain, ear or mastoid pain, nasal discharge or nasal congestion Card: Reports: chest pain (Intermittent); Denies: palpitations or syncope Resp: Reports: dyspnea GI: Denies: abdominal pain, nausea or vomiting : Denies: flank pain, dysuria, urinary frequency or urinary urgency Skin/Breast: Denies: rash or pruritus PFSH ED PFSH: Medical History Atrial fibrillation -Known history of chronic atrial fibrillation, currently rate controlled -Telemetry monitoring -on anticoagulation with Eliquis -Was previously on Coreg with noted bradycardia so discontinued BPH NOS w/o ur obs/LUTS -follows with [facility] -on finasteride and Flomax Chronic kidney disease Congestive heart failure -Has known history of chronic diastolic CHF -Clinically does not appear decompensated -Hold diuretics for now to allow for rehydration and due to acute renal impairment -Last echo done with contrast showed left ventricular ejection fraction of around 60% with normal ventricular size and systolic function -Follows up with Dr. Nickerson -Has been on high doses of diuretics which he thinks are not effective Coronary artery disease Evaluated in [place], patient reports 55% narrowing unknown vessel no stent or angioplasty done CVA (cerebral vascular accident) residual right weakness Diabetes mellitus, type II -A1c-8.4 -Accu-Cheks, hypoglycemia precautions, on Lantus, ISS -Consistent carb diet as tolerated -Hold Victoza Diabetic neuropathy associated with type 2 diabetes mellitus Hyperlipidemia Hypertension -Normotensive currently, monitor vital signs -Hold diuretics, ARB due to renal impairment -Hold clonidine as patient reports low blood pressure readings at home with associated lightheadedness -on amlodipine at lower dose to prevent hypotension Obesity -BMI-42 kg/m2 Obstructive sleep apnea not on treatment by choice Osteoarthritis PVD (peripheral vascular disease) -Hold statin due to rhabdomyolysis -Had arterial duplex done in August showing features associated with moderately severe PAD bilaterally -Would likely benefit from further evaluation Renal calculus, right follows with [facility] Surgical History No pertinent past surgical history Family History Mother , 87 Diabetes CAD (coronary artery disease) Hypertension Father , 60 No problems noted. Social History Smoking and tobacco status: current every day smoker pipe Pipes smoked per week: 1 Years smoked pipe: 54 Alcohol intake: former Year of sobriety/quit date alcohol: 25 y Former alcohol use details: heavy use, 5 DWI's Last substance use date: 11/29/19 Household members: none Housing: House Marital status: service: Yes Current occupational status: retired History of recent travel: No Physical Exam Const: GENERAL APPEARANCE: cooperative and comfortable ORIENTATION/CONSCIOUSNESS: Yes awake, Yes oriented to person, Yes oriented to place and Yes oriented to time HENMT: COMMON NORMALS: normocephalic, atraumatic and hearing grossly normal bilaterally HEAD & SCALP: normocephalic and atraumatic Neck/C-Spine: COMMON NORMALS: no JVD Resp: COMMON NORMALS: normal respiratory effort, No retractions, No use of accessory muscles and clear to auscultation bilaterally AUSCULTATION: clear to auscultation bilaterally Cardio: COMMON NORMALS: no JVD, regular rate, regular rhythm and No murmurs present (Cardio) RATE: regular rate RHYTHM: regular rhythm GI: COMMON NORMALS: Soft to palpation and No hepatosplenomegaly present AUSCULTATION: Yes normoactive bowel sounds PALPATION: Yes Soft to palpation, No Tenderness to palpation present (GI), No Guarding due to palpation present (GI) and Yes No hepatosplenomegaly present Extremity: COMMON NORMALS: normal to inspection, capillary refill normal, no clubbing, cyanosis or edema, no calf tenderness and no pedal edema Neuro: SENSORIUM/ORIENTATION: Yes oriented to person, Yes oriented to place and Yes oriented to time Skin: COMMON NORMALS: no rashes or lesions noted GENERAL SKIN EXAM: no rashes or lesions noted Course Vital Signs: Vital signs: Vital Signs Temperature 97.3 F L 03/11/21 14:03 Pulse Rate 95 03/11/21 16:54 Respiratory Rate 14 03/11/21 16:54 Blood Pressure 174/98 03/11/21 18:08 Pulse Oximetry 95 03/11/21 16:54 MDM - Chest Pain MDM Narrative: Medical decision making narrative: In September of this year patient had abnormal stress test he was supposed to have an angiogram some logistical issues came up and he ended up not having a completed. Still does need to be done. His blood pressure is improved and he is feeling better his headache is resolved some. I encouraged him to stay however he does not wish to. He wants to go home. We will increase his isosorbide mononitrate to 120 daily add amlodipine 2.5 daily. Patient has a listed as an allergy at high doses he had some leg swelling but he had no other real allergy or side effects. I called and talked to Dr. Kraus to make him aware of the patient he asked that we related the patient they call his office tomorrow so they can make arrangements for follow-up on his blood pressure and to reschedule the stress test. Encourage patient return if he has any further problems Lab Data: Labs: Lab Results 03/11/21 03/11/21 03/11/21 14:37 14:37 14:37 WBC 14.6 10^3/uL H 10 ^3/uL (4.0-10.0) RBC 5.15 10^6/uL 10^6 /uL (4.1-5.3) Hgb 14.6 g/dL g/dL (11.7-16.6) Hct 44.4 % % (42.0-52.0) MCV 86.2 fl fl (80-94) MCH 28.3 pg pg (28.0-34.0) MCHC 32.9 g/dL g/dL (30.0-36.0) RDW 12.9 % % (12.1-15.1) Plt Count 214 10^3/cmm 10^3 /cmm (130-400) MPV 10.2 fL fL (7.4-10.4) Neut % (Auto) 80.7 % % Lymph % (Auto) 12.5 % % Valley % (Auto) 5.4 % % Eos % (Auto) 0.7 % % Baso % (Auto) 0.3 % % Neut # (Auto) 11.74 10^3/uL H 1 0^3/uL (1.8-7.7) Lymph # (Auto) 1.8 10^3/uL 10^3/ uL (0.8-4.8) Valley # (Auto) 0.8 10^3/uL 10^3/ uL (0.2-0.9) Eos # (Auto) 0.1 10^3/uL 10^3/ uL (0.0-0.8) Baso # (Auto) 0.0 10^3/uL 10^3/ uL (0.0-0.1) Nucleated RBC % (a uto) 0 % % Nucleated RBCs # 0.0 /100WBC /100W BC Sodium 140 mmol/L mmol/L (136-145) Potassium 3.7 mmol/L mmol/L (3.5-5.1) Chloride 99 mmol/L mmol/L (98-107) Carbon Dioxide 28 mmol/L mmol/L (22-29) Anion Gap 16.7 (5-19) BUN 6 mg/dL L mg/dL (8-23) Creatinine 0.9 mg/dL mg/dL (0.7-1.2) GFR Calculation Not Reportable Glucose 96 mg/dL mg/dL (65-115) Calculated Osmolal ity 287 mOsm/kg mOsm/ kg (285-295) Calcium 8.7 mg/dL mg/dL (8.5-10.5) Total Bilirubin 0.6 mg/dL mg/dL (0.15-1.2) AST 22 U/L U/L (0-40) ALT 14 U/L U/L (0-41) Alkaline Phosphata se 93 IU/L IU/L (40-130) Troponin T Baselin e 38 ng/L H ng/L (0-15) Troponin T 120 Min [place] Delta Troponin T Total Protein 6.4 g/dL L g/dL (6.6-8.7) Albumin 4.2 g/dL g/dL (3.5-5.2) Globulin 2.2 g/dL g/dL (1.3-4.6) 03/11/21 16:47 WBC RBC Hgb Hct MCV MCH MCHC RDW Plt Count MPV Neut % (Auto) Lymph % (Auto) Valley % (Auto) Eos % (Auto) Baso % (Auto) Neut # (Auto) Lymph # (Auto) [place] # (Auto) Eos # (Auto) Baso # (Auto) Nucleated RBC % (a uto) Nucleated RBCs # Sodium Potassium Chloride Carbon Dioxide Anion Gap BUN Creatinine GFR Calculation Glucose Calculated Osmolal ity Calcium Total Bilirubin AST ALT Alkaline Phosphata se Troponin T Baselin e Troponin T 120 Min [place] 41.05 ng/L H ng/L (0-15) Delta Troponin T 3.05 ABS# ABS# (0-10) Total Protein Albumin Globulin Discharge Plan Discharge Patient Disposition: Home Clinical Impression: Benign essential HTN, Abnormal cardiovascular stress test, CAD (coronary artery disease) Condition: Stable Prescriptions: New amlodipine 2.5 mg tablet 2.5 mg PO DAILY Qty: 30 RF: 0 isosorbide mononitrate 120 mg tablet extended release 24 hr 120 mg PO DAILY Qty: 30 RF: 0 Discontinued isosorbide mononitrate 30 mg Tablet Extended Release 24 Hr 60 mg PO DAILY Qty: 30 RF: 0 No Action Ozempic 1 mg/dose (2 mg/1.5 mL) pen injector 1 mg SUBCUT Q7D RF: 0 tamsulosin 0.4 mg capsule 0.4 mg PO BEDTIME RF: 0 losartan 100 mg tablet 100 mg PO DAILY RF: 0 Eliquis 5 mg tablet 5 mg PO BID RF: 0 imiquimod [Aldara] 5 % cream in packet 1 applic topical ONCE Qty: 24 RF: 1 potassium chloride 20 mEq tablet extended release 40 meq PO BID Qty: 120 RF: 3 multivitamin Tablet 1 tab PO DAILY RF: 0 cholecalciferol (vitamin D3) [Vitamin D3] 2,000 unit Tablet 2,000 unit PO DAILY RF: 0 Lantus U-100 Insulin 50 units SUBCUT BEDTIME RF: 0 hydrocodone-acetaminophen 10-325 mg Tablet 1 tab PO BID PRN (Reason: Pain) RF: 0 rosuvastatin 10 mg Tablet 10 mg PO DAILY RF: 0 Hold Instructions: Resume on 11/14/19. finasteride 5 mg tablet 5 mg PO DAILY RF: 0 Lasix 80 mg Tablet 80 mg PO DAILY RF: 0 Discharge Orders: Discharge ED (Routine); Ordered 03/11/21 Ordered By: Roberto Keys Referrals: Chuy Bauman, RT [Primary Care Provider] - Discharge Diet: Usual diet Discharge Activity: Limit activity as instructed Patient Instructions: Opioid Safety Activity Restrictions/Additional Instructions: Case management will call to make arrangements for you to follow-up with cardiology in the next 2 days to recheck blood pressure and reevaluate and review the previous cardiac stress test. Coding Level of Care Code ED Motorcycle Police Officer for Yris Tee Exam Comprehensive
[2021-03-11 16:54] VITALS: BP 175/112; PULSE 95; RESP 14; O2SAT 95
[2021-03-11 17:16] LABS: Troponin 5 2HR 41.05 ng/L (0-15); Troponin 5 2HR Delta 3.05 ABS# (0-10)
[2021-03-11] MEDS: lisinopril 10 mg Tablet 20 MG PO (17:27)
[2021-03-11] MEDS: metoprolol tartrate 25 mg Tablet PO (17:27)
[2021-03-11] MEDS: enalaprilat 1.25 mg/mL Inj IVP (17:28)
[2021-03-11] MEDS: metoprolol tartrate 1 mg/1 mL SDV 5 mL 5 MG IVP (17:29)
[2021-03-11 18:08] VITALS: BP 174/98
== END 2021-03-11 18:31 | disposition home or self-care (01) ==
PROVIDERS: Physician Assistant; Emergency Provider Family Medicine
DX: I25.10 Atherosclerotic heart disease of native coronary artery without angina pectoris (principal); R94.39 Abnormal result of other cardiovascular function study; Z79.01 Long term (current) use of anticoagulants; Z79.4 Long term (current) use of insulin; I11.0 Hypertensive heart disease with heart failure; I50.9 Heart failure, unspecified; Z86.73 Personal history of transient ischemic attack (TIA), and cerebral infarction without residual deficits; E11.9 Type 2 diabetes mellitus without complications; E78.5 Hyperlipidemia, unspecified; F17.290 Nicotine dependence, other tobacco product, uncomplicated
CPT/HCPCS: 36415; 71045; 80053; 84484; 85025; 93005; 96374; 96375; 99284; J3490

== ENCOUNTER 2021-03-21 13:11 | Outpatient (CLI) | payer OTHER, SELFPAY | END 2021-03-21 13:12 | disposition home or self-care (01) | LOC: WOUND 13:11 | PROVIDERS: Visit Provider Nurse Practitioner Family | DX: Z09 Encounter for follow-up examination after completed treatment for conditions other than malignant neoplasm (principal); E11.9 Type 2 diabetes mellitus without complications | CPT/HCPCS: 99212 ==

== ENCOUNTER 2021-03-21 14:47 | Emergency (ER) | payer OTHER, SELFPAY ==
[2021-03-21] VITALS (8 sets, daily range): BP systolic 156–198; BP diastolic 85–108; PULSE 66–89; RESP 13–20; TEMP 37.1; O2SAT 96–98
--- NOTE | 2021-03-21 15:07 | W.ED.CHESTPA ---
HPI - Chest Pain General: Chief Complaint: Chest Pain Stated Complaint: High BP Time Seen by Provider: 03/21/21 15:06 History of Present Illness: HPI narrative: Mr. Guillaume is a 71-year-old gentleman with significant past medical history of hypertension, hyperlipidemia, obesity, atrial fibrillation on apixaban, diastolic heart failure, peripheral arterial disease who presents to the emergency department due to high blood pressure and chest discomfort. He reports over the past 3 weeks, despite medication compliance, his blood pressure has been higher than normal. He notes numbers at home in the 200 range. He previously presented to the emergency department and had medication dosage increased however he was unable to make a follow-up appointment with cardiology. He was supposed to go to wound clinic today and referred here for high blood pressure. He has mild associated chest pressure without other typical cardiac features. No headache, neurologic symptoms, or other significant changes in health. The patient does endorse worsening symptoms at night including feeling more short of breath and occasionally waking up gasping. He was previously on CPAP however did not tolerate it as the noise caused significant sleep disturbance. No other significant changes in health, infectious symptoms, exacerbating, or relieving factors identified. Review of Systems General: Reports: 10 or more systems reviewed and unremarkable except in HPI and below PFSH ED PFSH: Medical History Atrial fibrillation -Known history of chronic atrial fibrillation, currently rate controlled -Telemetry monitoring -on anticoagulation with Eliquis -Was previously on Coreg with noted bradycardia so discontinued BPH NOS w/o ur obs/LUTS -follows with [facility] -on finasteride and Flomax Chronic kidney disease Congestive heart failure -Has known history of chronic diastolic CHF -Clinically does not appear decompensated -Hold diuretics for now to allow for rehydration and due to acute renal impairment -Last echo done with contrast showed left ventricular ejection fraction of around 60% with normal ventricular size and systolic function -Follows up with Dr. Nickerson -Has been on high doses of diuretics which he thinks are not effective Coronary artery disease Evaluated in [place], patient reports 55% narrowing unknown vessel no stent or angioplasty done CVA (cerebral vascular accident) residual right weakness Diabetes mellitus, type II -A1c-8.4 -Accu-Cheks, hypoglycemia precautions, on Lantus, ISS -Consistent carb diet as tolerated -Hold Victoza Diabetic neuropathy associated with type 2 diabetes mellitus Hyperlipidemia Hypertension -Normotensive currently, monitor vital signs -Hold diuretics, ARB due to renal impairment -Hold clonidine as patient reports low blood pressure readings at home with associated lightheadedness -on amlodipine at lower dose to prevent hypotension Obesity -BMI-42 kg/m2 Obstructive sleep apnea not on treatment by choice Osteoarthritis PVD (peripheral vascular disease) -Hold statin due to rhabdomyolysis -Had arterial duplex done in August showing features associated with moderately severe PAD bilaterally -Would likely benefit from further evaluation Renal calculus, right follows with [facility] Surgical History No pertinent past surgical history Family History Mother , 87 Diabetes CAD (coronary artery disease) Hypertension Father , 60 No problems noted. Social History Smoking and tobacco status: current every day smoker pipe Pipes smoked per week: 1 Years smoked pipe: 54 Alcohol intake: former Year of sobriety/quit date alcohol: 25 y Former alcohol use details: heavy use, 5 DWI's Last substance use date: 11/29/19 Household members: none Housing: House Marital status: service: Yes Current occupational status: retired History of recent travel: No Physical Exam Narrative: EXAM NARRATIVE: GENERAL/CONSTITUTIONAL - mild chronically ill-appearing. Obese Eyes - PERRL, no conjunctival injection ENMT - Atraumatic external nose and ears. Moist mucous membranes NECK - supple. trachea midline CARDIOVASCULAR - regular rate and rhythm. Mild peripheral edema RESPIRATORY - diminished to auscultation bilaterally. No retractions or accessory muscle use. ABDOMEN/GI - Nontender/Nondistended. MSK - Extremities without obvious deformity or tenderness to palpation SKIN - Warm, Dry NEURO - alert and appropriately oriented. Moves all extremities equally. Course ED course: - Patient was seen and evaluated by me at bedside - Patient placed on cardiac monitors, IV access obtained - Initial evaluation notable for exam as above - Labs notable for minimal leukocytosis. Metabolic panel with mild hypokalemia, replenishment ordered. No evidence of endorgan dysfunction. - Imaging notable for negative chest x-ray - Upon serial reexamination after treatment the patient was improved after antihypertensives ordered - Based on patient history, evaluation, labs, and imaging as interpreted the most likely cause of the patient's condition is multifactorial related to hypertension. The patient has had recent follow-up with cardiology and stress test this year. Additionally some of the patient's described symptoms are likely secondary to noncompliance with CPAP. - The results of ED evaluation were discussed with the patient including prescriptions and/or symptomatic cares (if applicable) including appropriate and responsible use, followup plan, and return precautions. The patient verbalized understanding and felt safe for discharge. - Patient discharged in satisfactory condition. Vital Signs: Vital signs: Vital Signs Temperature 98.7 F 03/21/21 15:01 Pulse Rate 84 03/21/21 20:19 Respiratory Rate 20 H 03/21/21 20:19 Blood Pressure 168/94 03/21/21 20:19 Pulse Oximetry 98 03/21/21 20:19 MDM - Chest Pain Medical Records: Attestation: I reviewed the patient's medical records. Lab Data: Attestation: I reviewed the patient's lab results. Labs: Lab Results 03/21/21 03/21/21 03/21/21 15:30 15:30 15:30 WBC 10.5 10^3/uL H 10 ^3/uL (4.0-10.0) RBC 4.92 10^6/uL 10^6 /uL (4.1-5.3) Hgb 14.4 g/dL g/dL (11.7-16.6) Hct 41.9 % L % (42.0-52.0) MCV 85.2 fl fl (80-94) MCH 29.3 pg pg (28.0-34.0) MCHC 34.4 g/dL g/dL (30.0-36.0) RDW 13.2 % % (12.1-15.1) Plt Count 212 10^3/cmm 10^3 /cmm (130-400) MPV 10.2 fL fL (7.4-10.4) Neut % (Auto) 69.5 % % Lymph % (Auto) 21.3 % % [place] % (Auto) 6.7 % % Eos % (Auto) 1.5 % % Baso % (Auto) 0.5 % % Neut # (Auto) 7.32 10^3/uL 10^3 /uL (1.8-7.7) Lymph # (Auto) 2.2 10^3/uL 10^3/ uL (0.8-4.8) Chambers # (Auto) 0.7 10^3/uL 10^3/ uL (0.2-0.9) Eos # (Auto) 0.2 10^3/uL 10^3/ uL (0.0-0.8) Baso # (Auto) 0.1 10^3/uL 10^3/ uL (0.0-0.1) Nucleated RBC % (a uto) 0 % % Nucleated RBCs # 0.0 /100WBC /100W BC Sodium 143 mmol/L mmol/L (136-145) Potassium 3.4 mmol/L L mmol /L (3.5-5.1) Chloride 100 mmol/L mmol/L (98-107) Carbon Dioxide 26 mmol/L mmol/L (22-29) Anion Gap 20.4 H (5-19) BUN 12 mg/dL mg/dL (8-23) Creatinine 1.1 mg/dL mg/dL (0.7-1.2) GFR Calculation Not Reportable Glucose 84 mg/dL mg/dL (65-115) Calculated Osmolal ity 295 mOsm/kg mOsm/ kg (285-295) Calcium 8.6 mg/dL mg/dL (8.5-10.5) Total Bilirubin 0.7 mg/dL mg/dL (0.15-1.2) AST 28 U/L U/L (0-40) ALT 20 U/L U/L (0-41) Alkaline Phosphata se 81 IU/L IU/L (40-130) Troponin T Baselin e 46 ng/L H ng/L (0-15) Troponin T 120 Min [place] Delta Troponin T NT-Pro-B Natriuret Pep 1580 pg/mL H pg/m L (0-125) Total Protein 6.8 g/dL g/dL (6.6-8.7) Albumin 4.3 g/dL g/dL (3.5-5.2) Globulin 2.5 g/dL g/dL (1.3-4.6) Lipase 14 U/L U/L (13-60) 03/21/21 18:06 WBC RBC Hgb Hct MCV MCH MCHC RDW Plt Count MPV Neut % (Auto) Lymph % (Auto) Chambers % (Auto) Eos % (Auto) Baso % (Auto) Neut # (Auto) Lymph # (Auto) Chambers # (Auto) Eos # (Auto) Baso # (Auto) Nucleated RBC % (a uto) Nucleated RBCs # Sodium Potassium Chloride Carbon Dioxide Anion Gap BUN Creatinine GFR Calculation Glucose Calculated Osmolal ity Calcium Total Bilirubin AST ALT Alkaline Phosphata se Troponin T Baselin e Troponin T 120 Min [place] 42.93 ng/L H ng/L (0-15) Delta Troponin T -3.07 ABS# L ABS# (0-10) NT-Pro-B Natriuret Pep Total Protein Albumin Globulin Lipase EKG Data^: EKG 1: Attestation: I personally reviewed and interpreted this EKG as follows: EKG interpretation date: 03/21/21 EKG interpretation time: 15:16 Interpretation: Twelve-lead EKG shows an irregular rhythm at a rate of 90. No MI interval, QRS duration 131, QTc 468. Normal axis. Interpretation: Atrial fibrillation. Right bundle branch block. EKG 2: Attestation: I personally reviewed and interpreted this EKG as follows: EKG interpretation date: 03/21/21 EKG interpretation time: 18:39 Interpretation: Twelve-lead EKG shows an irregular rhythm at a rate of 75. No MI interval, QRS duration 141, QTc 483. Normal axis Interpretation: Atrial fibrillation. Right bundle branch block. Discharge Plan Discharge Patient Disposition: Home Clinical Impression: Hypertension, uncontrolled, Chest pressure Condition: Stable Prescriptions: No Action Ozempic 1 mg/dose (2 mg/1.5 mL) pen injector 1 mg SUBCUT Q7D RF: 0 tamsulosin 0.4 mg capsule 0.4 mg PO BEDTIME RF: 0 losartan 100 mg tablet 100 mg PO DAILY RF: 0 Eliquis 5 mg tablet 5 mg PO BID RF: 0 imiquimod [Aldara] 5 % cream in packet 1 applic topical ONCE Qty: 24 RF: 1 potassium chloride 20 mEq tablet extended release 40 meq PO BID Qty: 120 RF: 3 multivitamin Tablet 1 tab PO DAILY RF: 0 cholecalciferol (vitamin D3) [Vitamin D3] 2,000 unit Tablet 2,000 unit PO DAILY RF: 0 Lantus U-100 Insulin 50 units SUBCUT BEDTIME RF: 0 hydrocodone-acetaminophen 10-325 mg Tablet 1 tab PO BID PRN (Reason: Pain) RF: 0 rosuvastatin 10 mg Tablet 10 mg PO DAILY RF: 0 Hold Instructions: Resume on 11/14/19. finasteride 5 mg tablet 5 mg PO DAILY RF: 0 Lasix 80 mg Tablet 80 mg PO DAILY RF: 0 amlodipine 2.5 mg tablet 2.5 mg PO DAILY Qty: 30 RF: 0 isosorbide mononitrate 120 mg tablet extended release 24 hr 120 mg PO DAILY Qty: 30 RF: 0 Discharge Orders: Discharge ED (Routine); Ordered 03/21/21 Ordered By: Bear Torres Referrals: Chuy Bauman, RT [Primary Care Provider] - Discharge Diet: Usual diet Discharge Activity: Resume usual activity Patient Instructions: Chest Pain (ED), Hypertension (ED) Activity Restrictions/Additional Instructions: Thank you for visiting the emergency department. You were seen and evaluated for chest pressure associated with hypertension. No evidence of acute endorgan dysfunction was found on exam. You have a complicated medication regimen and I recommend calling your primary care provider in the morning regarding increasing antihypertensive medications. Additionally please follow-up with a construction technology instructor. Return to the emergency department for worsening symptoms or anything else that you are concerned about and feel needs emergency department evaluation. Coding Level of Care Code ED Rn Faculty for Yris Tee
--- NOTE | 2021-03-21 15:24 | XRR_ITS ---
PROCEDURE INFORMATION: Exam: XR Chest Exam date and time: 03/21/2021 3:24 PM Age: 71 years old Clinical indication: Pain; Chest pressure TECHNIQUE: Imaging protocol: XR of the chest. Views: 1 view. COMPARISON: CR XR chest 1V portable [id number] 03/11/2021 2:30 PM FINDINGS: Lungs: Left left lower lobe interstitial congestion. There is pleural thickening in the left lower lobe. No consolidation. Pleural spaces: Unremarkable. No pleural effusion. No pneumothorax. Heart/Mediastinum: Unremarkable. No cardiomegaly. Bones/joints: Unremarkable. XR/XR chest 1V portable [id number] IMPRESSION: No acute findings.
--- NOTE | 2021-03-21 15:24 | ECG_ITS ---
[facility] Test Date: 2021-03-21 Pat Name: Giles Guillaume Department: Room: Gender: Male Bean Sorter: : 1950 Requested By: Bear Torres Order Number: [id number] Shel[place] MD: Kervin Segundo M.D. Measurements Intervals [place] Rate: 90 P: [place]: QRS: 66 QRSD: 131 T: 11 QT: 421 QTc: 515 Interpretive Statements ATRIAL FIBRILLATION RIGHT BUNDLE BRANCH BLOCK [120+ ms QRS DURATION, UPRIGHT V1, 40+ ms S IN I/aVL/V4/V5/V6] SEPTAL MYOCARDIAL INFARCTION , PROBABLY OLD [40+ ms Q WAVE IN V1/V2] Compared to ECG 03/11/2021 14:01:58 Myocardial infarct finding now present Electronically Signed On 03-21-2021 20:37:04 REFRIGERATION SERVICE TECHNICIAN by Kervin Segundo M.D. [id number]
[2021-03-21 15:43] LABS: Basophils # 0.1 10^3/uL (0.0-0.1); Basophils % 0.5 %; Eosinophils # 0.2 10^3/uL (0.0-0.8); Eosinophils % 1.5 %; Hematocrit 41.9 % (42.0-52.0); Hemoglobin 14.4 g/dL (11.7-16.6); Lymphocytes # 2.2 10^3/uL (0.8-4.8); Lymphocytes % 21.3 %; Mean Corpuscular HGB Conc 34.4 g/dL (30.0-36.0); Mean Corpuscular Hemoglobin 29.3 pg (28.0-34.0); Mean Corpuscular Volume 85.2 fl (80-94); Mean Platelet Volume 10.2 fL (7.4-10.4); Monocytes # 0.7 10^3/uL (0.2-0.9); Monocytes % 6.7 %; Neutrophils # 7.32 10^3/uL (1.8-7.7); Neutrophils % 69.5 %; Nucleated Red Blood Cells % 0 %; Platelet Count 212 10^3/cmm (130-400); Red Blood Count 4.92 10^6/uL (4.1-5.3); Red Cell Distribution Width 13.2 % (12.1-15.1); White Blood Count 10.5 10^3/uL (4.0-10.0)
[2021-03-21 16:18] LABS: Troponin(5th) Baseline 46 ng/L (0-15)
[2021-03-21] MEDS: labetalol 5 mg/mL SDV 20mL 20 MG IVP ×2 (16:23→18:26)
[2021-03-21 16:26] LABS: Alanine Aminotransferase 20 U/L (0-41); Albumin Level 4.3 g/dL (3.5-5.2); Alkaline Phosphatase 81 IU/L (40-130); Blood Urea Nitrogen 12 mg/dL (8-23); Calcium 8.6 mg/dL (8.5-10.5); Carbon Dioxide 26 mmol/L (22-29); Chloride 100 mmol/L (98-107); Globulin 2.5 g/dL (1.3-4.6); Glucose 84 mg/dL (65-115); Lipase 14 U/L (13-60); NT Pro B Type Natriuretic Pept 1580 pg/mL (0-125); Osmolality Calculated 295 mOsm/kg (285-295); Sodium 143 mmol/L (136-145); Total Bilirubin 0.7 mg/dL (0.15-1.2); Total Protein 6.8 g/dL (6.6-8.7)
[2021-03-21 16:29] LABS: Anion Gap 20.4 (5-19); Aspartate Amino Transferase 28 U/L (0-40); Potassium 3.4 mmol/L (3.5-5.1)
[2021-03-21] MEDS: potassium chloride ER 20 mEq Tablet 40 MEQ PO (16:38)
--- NOTE | 2021-03-21 17:24 | ECG_ITS ---
[facility] Test Date: 2021-03-21 Pat Name: Giles Guillaume Department: Room: Gender: Male Diamond Mounter: : 1950 Requested By: Bear Torres Order Number: [id number] Shelton MD: Kervin Segundo M.D. Measurements Intervals [place] Rate: 75 P: [place]: QRS: 66 QRSD: 141 T: 7 QT: 454 QTc: 508 Interpretive Statements ATRIAL FIBRILLATION RIGHT BUNDLE BRANCH BLOCK [120+ ms QRS DURATION, UPRIGHT V1, 40+ ms S IN I/aVL/V4/V5/V6] Compared to ECG 03/21/2021 15:14:30 Myocardial infarct finding no longer present Electronically Signed On 03-21-2021 20:40:00 MOBILE HOME TECHNICIAN by Kervin Segundo M.D. [id number]
[2021-03-21 18:31] LABS: Troponin 5 2HR 42.93 ng/L (0-15)
[2021-03-21 18:42] LABS: Troponin 5 2HR Delta -3.07 ABS# (0-10)
== END 2021-03-21 20:05 | disposition home or self-care (01) ==
PROVIDERS: Emergency Provider Emergency Medicine
DX: R07.89 Other chest pain (principal); I10 Essential (primary) hypertension; Z79.4 Long term (current) use of insulin; I11.0 Hypertensive heart disease with heart failure; I50.9 Heart failure, unspecified; I25.10 Atherosclerotic heart disease of native coronary artery without angina pectoris; Z86.73 Personal history of transient ischemic attack (TIA), and cerebral infarction without residual deficits; E78.5 Hyperlipidemia, unspecified; F17.290 Nicotine dependence, other tobacco product, uncomplicated
CPT/HCPCS: 71045; 80053; 83690; 83880; 84484; 85025; 93005; 96374; 96376; 99284; J3490

== ENCOUNTER 2021-04-19 12:29 | Outpatient (CLI) | payer OTHER, SELFPAY ==
--- NOTE | 2021-04-19 13:00 | MR_ITS ---
WS: [id number] MRI LUMBAR SPINE NONCONTRAST HISTORY: RIGHT FOOT DROP/RADICULOPATHY/NEUROPATHY COMPARISON: 01/27/2019 TECHNIQUE: Sagittal and axial multisequence imaging is submitted. Thoracolumbar curvature. Mild disc space narrowing and facet joint arthritis throughout the cervical and thoracic spines. No cord compression. 5 lumbar type vertebral bodies. S1 is lumbarized also. Disc spaces are slightly narrowed with mild desiccation throughout. Schmorl's node in the L3 vertebra l body. No fractures or marrow edema. There is increase fluid in the L5-S1 facet joint, greatest on t he LEFT. Conus terminates normally at L1. L1-L2: Normal. L2-L3: Very mild annular disc bulging with mild facet and ligamentum flavum hypertrophy. L3-L4: Mild annular disc bulging and osteophytic ridging with ligamentum flavum and facet arthritis. Encroachment into the subarticular recesses. Mild central with moderate bilateral subarticular recess stenosis. Mild bilateral foraminal stenosis. LEFT foraminal disc protrusion with annular fissure. L4-L5: Moderate diffuse annular disc bulging and osteophytic ridging with ligamentum flavum and facet arthritis. There is disc and osteophyte encroachment upon the ventral thecal sac. Mild central, bila teral subarticular recess and foraminal stenosis. There is contact by disc and osteophytes upon the t raversing L5 nerve roots. Similar to the prior study. L5-S1: Diffuse annular disc bulging and osteophytic ridging. Moderate ligamentum flavum and facet art hritis. Increase fluid in the facet joints but greatest on the LEFT. This is similar but mildly progr essed since the prior study. Osteophyte and facet disease and disc disease encroaches into the thecal sac causing moderate central stenosis. Moderate bilateral subarticular recess and foraminal stenosis , LEFT greater than RIGHT. Slightly greater disc contact on the traversing LEFT S1 nerve root. The fa cet joint cyst associated with the RIGHT facet is no longer evident. Incompletely visualized cyst associated with the LEFT kidney. Spleen is top normal size at 14.2 cm in length. MR/MR lumbar spine wo con* [id number] IMPRESSION: 1. Mild progression of facet disease and stenoses in the lower lumbar spine. 2. At L5-S1 there is moderate central with bilateral subarticular recess and f oraminal stenosis, LEFT greater than RIGHT. Slightly greater disc and osteophyt e contact on the LEFT S1 nerve root. 3. Increase fluid in the facet joints at L5-S1, greatest on the LEFT. 4. Mild central, bilateral subarticular recess and foraminal stenosis at L4-5 with mild contact on the traversing L5 nerve roots. 5. Moderate bilateral subarticular recess stenosis at L3-4 with mild central a nd bilateral foraminal stenosis.
== END 2021-04-19 12:30 | disposition home or self-care (01) ==
PROVIDERS: PCP Family Medicine; Visit Provider Family Medicine
DX: Z01.89 Encounter for other specified special examinations (principal); M21.371 Foot drop, right foot; G62.9 Polyneuropathy, unspecified; M48.061 Spinal stenosis, lumbar region without neurogenic claudication; M48.07 Spinal stenosis, lumbosacral region
CPT/HCPCS: 72148

== ENCOUNTER 2021-06-25 11:52 | Inpatient (IN) | payer OTHER, MEDICARE, SELFPAY ==
[2021-06-25] VITALS (72 sets, daily range): BP systolic 125–214; BP diastolic 44–87; PULSE 0–61; RESP 8–21; TEMP 36.4–36.8; O2SAT 85–98; BMI 42.5
--- NOTE | 2021-06-25 12:52 | ECG_ITS ---
[facility] Test Date: 2021-06-25 Pat Name: Giles Guillaume Department: Room: Gender: Male Internal Sales: : 1950 Requested By: Roberto Briggs Order Number: [id number] Shelton MD: Dennys Fernandez M.D. Measurements Intervals [place] Rate: 45 P: [place]: QRS: -72 QRSD: 149 T: 76 QT: 579 QTc: 506 Interpretive Statements ATRIAL FIBRILLATION WITH SLOW VENTRICULAR RESPONSE LEFT AXIS DEVIATION [QRS AXIS < -30] LEFT BUNDLE BRANCH BLOCK [120+ ms QRS DURATION, 80+ ms Q/S IN V1/V2, 85+ ms R IN I/aVL/V5/V6] PROLONGED QT INTERVAL CRITICAL TEST RESULT Compared to ECG 03/21/2021 18:37:34 Left-axis deviation now present Left bundle-branch block now present Prolonged QT interval now present Right bundle-branch block no longer present Electronically Signed On 06-26-2021 17:01:25 CDT by Dennys Fernandez M.D. [id number]
--- NOTE | 2021-06-25 13:17 | W.ED.WEAKNES ---
HPI - Weakness General: Chief complaint: Weakness Stated complaint: n/v; weakness Time Seen by Provider: 06/25/21 12:51 Source: patient Mode of arrival: ambulatory Limitations: no limitations History of Present Illness: 71-year-old male presents emergency room stating he has not felt well for the last several days. Has been extremely weak and excessively tired. He went to the PA and had an episode of vomiting they directed him back to the emergency room. He went back to his car and actually had to rest there for an extended period of time before he felt well enough to drive to the emergency room. Patient arrived here and is found to be severely bradycardic however he is mildly hypertensive. He denies any fever sweats chills is not had any chest pain he generally feels unwell and weak but he is awake and alert and able to answer questions. He is concerned about some previous sacral pressure ulcers that he has had he was seen at wound care clinic and wanted those to be reevaluated as well. He has had a little mild shortness of breath with any activity. Complaint: generalized weakness Onset (ago): day(s) Duration: constant and progressively worsening Location: generalized Migration: none Severity: moderate Relieving factors: none Exacerbating factors: none Associated symptoms: Reports nausea; Denies chest pain, chills, confusion, melena, decreased appetite, diaphoresis, dysuria, easy bruising, fever(s), headache(s), myalgias, rash, short of breath, syncope or vomiting Review of Systems Const: Denies: fever(s), chills or diaphoresis Eyes: Denies: change in vision or blurry vision Card: Reports: edema and swelling of feet/ankles; Denies: chest pain or syncope Resp: Reports: dyspnea; Denies: productive cough or non-productive cough GI: Reports: nausea; Denies: abdominal pain, vomiting or melena : Denies: dysuria Skin/Breast: Reports: lesions (Per patient report sacral ulcer) Neuro: Denies: headache(s) or confusion Bharat/Lymph: Denies: easy bruising [facility] ED PFS: Medical History (Updated 06/25/21 @ 18:38 by Nazanin Tovar MD) Atrial fibrillation Chronic, history of bradycardia with beta blockers, on eliquis BPH NOS w/o ur obs/LUTS Chronic kidney disease Congestive heart failure Coronary artery disease Evaluated in [place], patient reports 55% narrowing unknown vessel no stent or angioplasty done CVA (cerebral vascular accident) residual right weakness Diabetes mellitus, type II Diabetic neuropathy associated with type 2 diabetes mellitus Hyperlipidemia Hypertension Lumbar foraminal stenosis Nicotine dependence, chewing tobacco, with other nicotine-induced disorders Obesity BMI-42 kg/m2 Obstructive sleep apnea not on treatment by choice Osteoarthritis PAD (peripheral artery disease) PVD (peripheral vascular disease) Renal calculus, right Rhabdomyolysis Squamous cell carcinoma in situ Surgical History No pertinent past surgical history Family History Mother , 87 Diabetes CAD (coronary artery disease) Hypertension Father , 60 No problems noted. Social History (Updated 06/25/21 @ 17:48 by Nazanin Tovar MD) Smoking and tobacco status: current every day smoker pipe Pipes smoked per week: 1 Years smoked pipe: 54 and smokeless tobacco Smokeless tobacco user: chewing tobacco Alcohol intake: former Year of sobriety/quit date alcohol: 26 y Former alcohol use details: heavy use, 5 DWI's Substance/Drug Use: former Household members: none Housing: House Marital status: service: Yes Current occupational status: retired Physical Exam Const: COMMON NORMALS: no acute distress GENERAL APPEARANCE: cooperative and comfortable ORIENTATION/CONSCIOUSNESS: Yes awake, Yes oriented to person, Yes oriented to place and Yes oriented to time HENMT: COMMON NORMALS: normocephalic, atraumatic and hearing grossly normal bilaterally HEAD & SCALP: normocephalic and atraumatic Neck/C-Spine: COMMON NORMALS: no JVD Resp: COMMON NORMALS: normal respiratory effort, No retractions, No use of accessory muscles and clear to auscultation bilaterally AUSCULTATION: clear to auscultation bilaterally Cardio: COMMON NORMALS: no JVD, regular rhythm and No murmurs present (Cardio) RATE: bradycardic RHYTHM: regular rhythm GI: COMMON NORMALS: Soft to palpation and No hepatosplenomegaly present AUSCULTATION: Yes normoactive bowel sounds PALPATION: Yes Soft to palpation, No Tenderness to palpation present (GI), No Guarding due to palpation present (GI) and Yes No hepatosplenomegaly present Extremity: COMMON NORMALS: normal to inspection, capillary refill normal and no calf tenderness GENERAL: Yes edema (lower extremities bilaterally) Neuro: SENSORIUM/ORIENTATION: Yes oriented to person, Yes oriented to place and Yes oriented to time Course Vital Signs: Vital signs: Vital Signs Temperature 97.8 F 06/26/21 04:00 Pulse Rate 32 L 06/26/21 06:00 Respiratory Rate 17 06/26/21 06:00 Blood Pressure 165/54 06/26/21 06:00 Pulse Oximetry 89 L 06/26/21 06:00 MDM - Weakness Medical Decision Making On arrival patient's heart rate in the low 30s at times the pain below 30. He has good blood pressure however. Maintained that throughout his ER stay in fact we had to treat his hypertension. Not on any negative inotropes but he is on isosorbide mononitrate no recent medication level changes. Is also on apixaban for chronic A. fib. He is severely hypokalemic and was concerned about the accuracy of that because his initial lab work his creatinine was only mildly elevated's did not seem proportionate the levels hyperkalemia however he is taking a fair amount of calcium supplement. Potassium was redrawn and verified he was given some initial treatment for his hyperkalemia once it was verified more aggressive treatment was pursued. Discussed with hospitalist. Also reviewed with cardiology. Orders written patient will be admitted to the ICU continue to monitor work on his hypokalemia. He is currently attached to the ZOLL monitor with a pacer pads in place should he deteriorate further external pacing can be initiated. Patient remained stable with adequate blood pressure despite his bradycardia. Medical Records I reviewed the patient's medical records. Lab Data I reviewed the patient's lab results. : 06/26/21 03:35 06/26/21 03:35 Radiology Impressions Chest X-Ray 06/25/21 14:09 IMPRESSION: 1. Mild cardiac enlargement unchanged. 2. Chronic bilateral pleural thickening. No acute infiltrates are noted. Renal Ultrasound 06/25/21 17:57 IMPRESSION: 1. Negative for hydronephrosis or renal calculus. 2. Two left kidney cysts measuring up to 19 mm. Laboratory Results WBC 12.3 10^3/uL (4.0-10.0) H 06/25/21 13:20 RBC 4.50 10^6/uL (4.1-5.3) 06/25/21 13:20 Hgb 13.2 g/dL (11.7-16.6) 06/25/21 13:20 Hct 40.4 % (42.0-52.0) L 06/25/21 13:20 MCV 89.8 fl (80-94) 06/25/21 13:20 MCH 29.3 pg (28.0-34.0) 06/25/21 13:20 MCHC 32.7 g/dL (30.0-36.0) 06/25/21 13:20 RDW 13.2 % (12.1-15.1) 06/25/21 13:20 Plt Count 187 10^3/cmm (130-400) 06/25/21 13:20 MPV 10.8 fL (7.4-10.4) H 06/25/21 13:20 Neut % (Auto) 81.0 % 06/25/21 13:20 Lymph % (Auto) 13.3 % 06/25/21 13:20 [place] % (Auto) 4.2 % 06/25/21 13:20 Eos % (Auto) 0.6 % 06/25/21 13:20 Baso % (Auto) 0.3 % 06/25/21 13:20 Neut # (Auto) 9.96 10^3/uL (1.8-7.7) H 06/25/21 13:20 Lymph # (Auto) 1.6 10^3/uL (0.8-4.8) 06/25/21 13:20 [place] # (Auto) 0.5 10^3/uL (0.2-0.9) 06/25/21 13:20 Eos # (Auto) 0.1 10^3/uL (0.0-0.8) 06/25/21 13:20 Baso # (Auto) 0.0 10^3/uL (0.0-0.1) 06/25/21 13:20 Nucleated RBC % (auto) 0 % 06/25/21 13:20 Nucleated RBCs # 0.0 /100WBC 06/25/21 13:20 PT 15.80 SECONDS (12.1-14.9) H 06/25/21 17:59 INR 1.22 (0.8-1.2) H 06/25/21 17:59 APTT 34.5 SECONDS (23.9-36.7) 06/25/21 17:59 Sodium 138 mmol/L (136-145) 06/25/21 13:20 Potassium 6.1 mmol/L (3.5-5.1) H 06/25/21 14:20 Chloride 107 mmol/L (98-107) 06/25/21 13:20 Carbon Dioxide 22 mmol/L (22-29) 06/25/21 13:20 Anion Gap 16.2 (5-19) 06/25/21 13:20 BUN 36 mg/dL (8-23) H 06/25/21 13:20 Creatinine 2.2 mg/dL (0.7-1.2) H 06/25/21 13:20 GFR Calculation Not Reportable 06/25/21 13:20 Glucose 185 mg/dL (65-115) H 06/25/21 13:20 POC Glucose 114 mg/dL (70-110) H 06/25/21 16:31 Calculated Osmolality 299 mOsm/kg (285-295) H 06/25/21 13:20 Uric Acid 11.2 mg/dL (3.4-7.0) H 06/25/21 13:20 Calcium 9.2 mg/dL (8.5-10.5) 06/25/21 13:20 Phosphorus 3.4 mg/dL (2.5-4.5) 06/25/21 13:20 Magnesium 2.1 mg/dL (1.7-2.3) 06/25/21 13:20 Total Bilirubin 0.4 mg/dL (0.15-1.2) 06/25/21 13:20 AST 31 U/L (0-40) 06/25/21 13:20 ALT 26 U/L (0-41) 06/25/21 13:20 Alkaline Phosphatase 77 IU/L (40-130) 06/25/21 13:20 Creatine Kinase 675 U/L (39-308) H* 06/25/21 13:20 Troponin T Baseline 66 ng/L (0-15) H 06/25/21 13:20 Troponin T 120 Minute 71.09 ng/L (0-15) H 06/25/21 14:20 Delta Troponin T 5.09 ABS# (0-10) 06/25/21 14:20 Total Protein 6.4 g/dL (6.6-8.7) L 06/25/21 13:20 Albumin 4.0 g/dL (3.5-5.2) 06/25/21 13:20 Globulin 2.4 g/dL (1.3-4.6) 06/25/21 13:20 TSH 2.20 uIU/mL (0.27-4.20) 06/25/21 13:20 Urine Color Yellow (Yellow) 06/25/21 14:36 Urine Appearance Clear (CLEAR) 06/25/21 14:36 Urine pH 5 (5-7) 06/25/21 14:36 Ur Specific [place] 1.015 (1.005-1.030) 06/25/21 14:36 Urine Protein Neg (Negative) 06/25/21 14:36 Urine Glucose (UA) Norm (Normal) 06/25/21 14:36 Urine Ketones Negative (Negative) 06/25/21 14:36 Urine Blood Neg (Negative) 06/25/21 14:36 Urine Nitrate Negative (Negative) 06/25/21 14:36 Urine Bilirubin Neg (Negative) 06/25/21 14:36 Urine Urobilinogen Neg mg/dL (Negative) 06/25/21 14:36 Ur Leukocyte Esterase Negative (Negative) 06/25/21 14:36 Discharge Plan Discharge Patient Disposition: Admitted As Inpatient Admit Provider: Nazanin Tovar Condition: Stable Coding Level of Care Code ED Consumer Affairs Director for Yris Tee
[2021-06-25] MEDS: ondansetron 2 mg/ML SDV 2 mL 4 MG IVP (13:24)
[2021-06-25 13:29] LABS: Basophils % 0.3 %; Eosinophils # 0.1 10^3/uL (0.0-0.8); Eosinophils % 0.6 %; Hematocrit 40.4 % (42.0-52.0); Hemoglobin 13.2 g/dL (11.7-16.6); Lymphocytes # 1.6 10^3/uL (0.8-4.8); Lymphocytes % 13.3 %; Mean Corpuscular HGB Conc 32.7 g/dL (30.0-36.0); Mean Corpuscular Hemoglobin 29.3 pg (28.0-34.0); Mean Corpuscular Volume 89.8 fl (80-94); Mean Platelet Volume 10.8 fL (7.4-10.4); Monocytes # 0.5 10^3/uL (0.2-0.9); Monocytes % 4.2 %; Neutrophils # 9.96 10^3/uL (1.8-7.7); Nucleated Red Blood Cells % 0 %; Platelet Count 187 10^3/cmm (130-400); Red Cell Distribution Width 13.2 % (12.1-15.1); White Blood Count 12.3 10^3/uL (4.0-10.0)
[2021-06-25 13:55] LABS: Troponin(5th) Baseline 66 ng/L (0-15)
[2021-06-25 13:58] LABS: Alanine Aminotransferase 26 U/L (0-41); Alkaline Phosphatase 77 IU/L (40-130); Blood Urea Nitrogen 36 mg/dL (8-23); Calcium 9.2 mg/dL (8.5-10.5); Carbon Dioxide 22 mmol/L (22-29); Chloride 107 mmol/L (98-107); Globulin 2.4 g/dL (1.3-4.6); Glucose 185 mg/dL (65-115); Osmolality Calculated 299 mOsm/kg (285-295); Sodium 138 mmol/L (136-145); Total Bilirubin 0.4 mg/dL (0.15-1.2); Total Protein 6.4 g/dL (6.6-8.7)
[2021-06-25 14:07] LABS: Anion Gap 16.2 (5-19)
[2021-06-25 14:08] LABS: Aspartate Amino Transferase 31 U/L (0-40); Potassium 7.2 mmol/L (3.5-5.1)
--- NOTE | 2021-06-25 14:09 | XR_ITS ---
WS: [id number] Exam: XR chest 1V portable [id number] Date/Time of Exam: 06/25/2021 2:09 PM Reason For Exam: dyspnea/cough Comparison 03/21/2021. The lungs are fully expanded. No acute infiltrates are noted. No pleural effusions. There appears to be bilateral pleural thickening. Mild cardiac enlargement unchanged. A circular opacity superimposes the cardiac silhouette and appears to represent an artifact. The mediastinum is normal in contour. Th e osseous thorax is intact. XR/XR chest 1V portable [id number] IMPRESSION: 1. Mild cardiac enlargement unchanged. 2. Chronic bilateral pleural thickening. No acute infiltrates are noted.
[2021-06-25 14:14] LABS: Glucose Point of Care 150 mg/dL (70-110)
--- NOTE | 2021-06-25 14:49 | PC.PHAR ---
Addendum entered by Radha Briggs 06/25/21 15:33: PT STATES HE HASNT BEEN TAKING HIS AMLODIPINE Original Note: PT STATES HE TAKES CARE OF HIS OWN MEDICATIONS-PT STATES HE IS NOT TAKING ANY KIND OF STOOL SOFTNERS OR USING ANY KIND OF EYE DROPS THAT ARE ON THE [facility] MED LIST-NOTES ARE MADE IN THE PHARMACY COMMENTS
--- NOTE | 2021-06-25 14:52 | ECG_ITS ---
[facility] Test Date: 2021-06-25 Pat Name: Giles Guillaume Department: Room: Gender: Male Batt Packer: : 1950 Requested By: Roberto Briggs Order Number: [id number] Shelton MD: Dennys Fernandez M.D. Measurements Intervals [place] Rate: 35 P: [place]: QRS: -57 QRSD: 144 T: 83 QT: 587 QTc: 451 Interpretive Statements ATRIAL FIBRILLATION WITH SLOW VENTRICULAR RESPONSE LEFT AXIS DEVIATION [QRS AXIS < -30] LEFT BUNDLE BRANCH BLOCK [120+ ms QRS DURATION, 80+ ms Q/S IN V1/V2, 85+ ms R IN I/aVL/V5/V6] PROLONGED QT INTERVAL CRITICAL TEST RESULT Compared to ECG 06/25/2021 12:59:02 No significant changes Electronically Signed On 06-26-2021 17:13:46 CDT by Dennys Fernandez M.D. [id number]
--- NOTE | 2021-06-25 14:56 | PC.NURSE ---
PER PROVIDER, GIVE ALL MEDICATIONS EXCLUDING INSULIN.
[2021-06-25] MEDS: calcium chloride 10% Syr 10 mL 2 GM IVP (15:02)
[2021-06-25] MEDS: sodium bicarbonate 8.4% 1 mEq/mL 50mL Syr 100 MEQ IVP (15:03)
[2021-06-25] MEDS: sodium chloride 0.9% 1,000 ML 150 ML IV (15:04)
[2021-06-25] MEDS: sodium polystyrene sulfonate 15 gm/60 mL Btl 30 GM PO (15:04)
[2021-06-25 15:19] LABS: Troponin 5 2HR 71.09 ng/L (0-15)
[2021-06-25 15:27] LABS: Add Urine Microscopic? NO; Charge for UA Resulting for Rev
[2021-06-25 15:27] LABS: Troponin 5 2HR Delta 5.09 ABS# (0-10)
[2021-06-25 15:35] LABS: Bilirubin Urine Neg (Negative); Blood Urine Neg (Negative); Glucose Urine UA Norm (Normal); Ketones Urine Negative (Negative); Leukocyte Esterase Urine Negative (Negative); Nitrate Urine Negative (Negative); Protein Urine Neg (Negative); Specific Gravity, Urine 1.015 (1.005-1.030); Urine Appearance Clear (CLEAR); Urine Color Yellow (Yellow); Urobilinogen Urine Neg (Negative); pH Urine 5 (5-7)
[2021-06-25 15:57] LABS: Potassium 6.1 mmol/L (3.5-5.1)
[2021-06-25] MEDS: insulin regular-human 100 units/1 mL 10 UNIT IVP (16:14)
--- NOTE | 2021-06-25 16:21 | PM.HP ---
Providers/Chief Complaint Admitting Physician: Nazanin Tovar Primary Care Provider: Jessica Bui MD Chief Complaint: n/v; weakness History of Present Illness Giles Guillaume is a 71 year old male who presented to the emergency room with chief complaint of not feeling well. He has not been feeling well for several weeks. Describes being very weak and tired. He has been having dizziness and near syncopal episodes when he tries to get up. 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 He saw his primary care provider without improvement in his symptoms ended up coming to the emergency room today. He decided to drive himself to the emergency room. He describes having to sit in his vehicle for 20 minutes or so to get to a place that he thought he could drive in. Upon arrival here patient was noted to be very bradycardic with heart rate in the 20s to 30s. He has a known history of atrial fibrillation and has had bradycardia in the past with beta-blockade. Records indicate a history of coronary artery disease, peripheral artery disease among other diagnoses as listed below. Laboratory studies showed potassium of 7 and increased BUN and creatinine. Patient received coverage for hyperkalemia and had pacer pads placed. Blood pressures have actually been elevated as high as 200s over 90s. As long as he is not trying to get up and move around he is feeling okay . He does describe episodes of chest pain with exertion. He is also had episodes of suddenly becoming very nauseated. He has had several episodes of vomiting over the last couple of weeks. He has had increasing abdominal girth and lower extremity edema over the last few months. He follows with cardiology outpatient. He tells me that back in February or so his potassium dosing was increased. He has continued to take the potassium but at times has not been taking his water pills. He has been having increasing difficulty initiating stream of urine that has contributed to him not taking the water pills along with not feeling like they have been working. In addition to potassium replacement he is on spironolactone and losartan. With critical state and abnormalities identified he is being admitted to the intensive care unit. Hospitalist were called for admission. At present time patient does not feel well. Heart rate remains 20s to 30s. Last potassium level was 6. EKG shows atrial fibrillation with slow ventricular response. I discussed the case with Dr. Fernandez, on-call cardiology, who will see Mr. Guillaume in consultation. Review of Systems Const: Reports: change in weight (Gain), fatigue, malaise and daytime sleepiness; Denies: fever(s) or chills Eyes: Denies: change in vision ENMT: Reports: throat pain (Developed in the emergency room); Denies: dry mouth or nasal congestion Card: Reports: chest pain, palpitations, irregular heart rhythm, edema, pre-syncope, dyspnea on exertion, orthopnea and leg pain with exertion; Denies: syncope Resp: Reports: dyspnea, productive cough (Sometimes) and non-productive cough; Denies: wheezing GI: Reports: nausea and vomiting; Denies: abdominal pain, diarrhea, constipation, hematochezia or melena : Reports: difficulty urinating, urinary urgency, urinary hesitancy, urinary dribbling and difficulty starting urination; Denies: flank pain or hematuria Musc: Reports: back pain, extremity swelling, muscle cramps and muscle weakness Skin/Breast: Reports: sores (Sacral area) Neuro: Reports: weakness in extremities (Right-sided, chronic), difficulty walking and dizziness; Denies: headache(s), numbness in extremities or frequent falls Psych: Reports: anxiety; Denies: depression Bharat/Lymph: Denies: easy bruising or easy bleeding Medications/Allergies Home Medications Medication Instructions Recorded Confirmed Last Taken Type apixaban 5 mg tablet (Eliquis) 5 mg PO BID 06/22/19 06/25/21 06/25/21 History losartan 100 mg tablet 100 mg PO QAM 06/22/19 06/25/21 06/25/21 History tamsulosin 0.4 mg capsule 0.4 mg PO BEDTIME 06/22/19 06/25/21 06/24/21 History cholecalciferol (vitamin D3) 50 2,000 unit PO QAM 06/24/19 06/25/21 06/25/21 History mcg (2,000 unit) tablet (Vitamin D3) multivitamin 1 tab PO DAILY 06/24/19 06/25/21 06/25/21 History finasteride 5 mg tablet 5 mg PO DAILY 11/01/19 06/25/21 10/31/19 History rosuvastatin 10 mg tablet 10 mg PO QPM 11/01/19 06/25/2120 History furosemide 80 mg tablet (Lasix) 80 mg PO QAM 11/08/19 06/25/21 06/25/21 History potassium chloride 20 mEq 40 meq PO BID #120 tab 06/06/20 06/25/21 06/25/21 Rx tablet,extended release amlodipine 5 mg tablet 5 mg PO DAILY 06/25/21 06/25/21 05/28/21 History imiquimod 5 % topical cream packet See Rx Instructions .ROUTE .COMPLEX 06/25/21 06/25/21 Unknown History (Aldara) insulin glargine 100 unit/mL (3 61 unit SUBCUT BEDTIME 06/25/21 06/25/21 06/24/21 History mL) subcutaneous pen isosorbide mononitrate 120 mg 120 mg PO QAM 06/25/21 06/25/21 06/25/21 History tablet,extended release 24 hr oxycodone 10 mg tablet 5 - 10 mg PO TID PRN 06/25/21 06/25/21 Unknown History pentoxifylline 400 mg 400 mg PO BID 06/25/21 06/25/21 Unknown History tablet,extended release pregabalin 150 mg capsule (Lyrica) 150 mg PO BID 06/25/21 06/25/21 Unknown History semaglutide (Ozempic) 0.5 mg SUBCUT Q7D 06/25/21 06/25/21 06/24/21 History spironolactone 50 mg tablet 50 mg PO DAILY 06/25/21 06/25/21 Unknown History Allergies Allergy/AdvReac Type Severity Reaction Status Date / Time carvedilol AdvReac diarrhea Verified 06/25/21 12:22 hydralazine AdvReac vomiting Verified 06/25/21 12:22 PFSH Acute PFSH: Medical History (Updated 06/25/21 @ 18:38 by Nazanin Tovar MD) Atrial fibrillation Chronic, history of bradycardia with beta blockers, on eliquis BPH NOS w/o ur obs/LUTS Chronic kidney disease Congestive heart failure Coronary artery disease Evaluated in [place], patient reports 55% narrowing unknown vessel no stent or angioplasty done CVA (cerebral vascular accident) residual right weakness Diabetes mellitus, type II Diabetic neuropathy associated with type 2 diabetes mellitus Hyperlipidemia Hypertension Lumbar foraminal stenosis Nicotine dependence, chewing tobacco, with other nicotine-induced disorders Obesity BMI-42 kg/m2 Obstructive sleep apnea not on treatment by choice Osteoarthritis PAD (peripheral artery disease) PVD (peripheral vascular disease) Renal calculus, right Rhabdomyolysis Squamous cell carcinoma in situ Surgical History No pertinent past surgical history Family History Mother , 87 Diabetes CAD (coronary artery disease) Hypertension Father , 60 No problems noted. Social History (Updated 06/25/21 @ 17:48 by Nazanin Tovar MD) Smoking and tobacco status: current every day smoker pipe Pipes smoked per week: 1 Years smoked pipe: 54 and smokeless tobacco Smokeless tobacco user: chewing tobacco Alcohol intake: former Year of sobriety/quit date alcohol: 25 y Former alcohol use details: heavy use, 5 DWI's Substance/Drug Use: former Household members: none Housing: House Marital status: service: Yes Current occupational status: retired Vitals/I&O/Wt Last Vital Signs Temp 97.6 F 06/25/21 12:13 Pulse 33 L 06/25/21 16:07 Resp 12 06/25/21 16:07 BP 155/55 06/25/21 16:07 Pulse Ox 96 06/25/21 16:07 Weight last 48 hrs Weight 146.057 kg Physical Exam Narrative: Constitutional: Awake and alert, obese, cooperative, both acutely and chronically ill-appearing HEENT: Normocephalic, atraumatic, conjunctive are mildly injected, pupils are equal reactive, extraocular movements are intact, nasopharynx is clear, oropharynx with dentures noted, tobacco staining appreciated Neck: Large but supple Respiratory: Decreased breath sounds, tachypnea, no wheezes, able to talk in full sentences presently while sitting upright Cardiovascular: Irregular bradycardic rhythm, brisk capillary refill, JVD to the angle of the jaw Abdomen: Obese, rotund, nontender, positive bowel sounds : Edematous Extremities: 4+ edema, diffusely tender due to tightness no focal areas that are more tender, bony hypertrophy Skin: 2 scabs sores on third digit right foot, small sore on the tip of the fourth digit right foot, erythema over both first MCPs, unable to evaluate sacral area presently due to bradycardia and bed but patient reports a sore in this region, chronic stasis changes noted to both lower extremities Neuro: Speech clear, face symmetric, moves all extremities, handgrip weaker on the right versus the left Psych: Anxious, normal affect otherwise Data : 06/25/21 13:20 06/25/21 14:20 Other Labs: Radiology Impressions Chest X-Ray 06/25/21 14:09 IMPRESSION: 1. Mild cardiac enlargement unchanged. 2. Chronic bilateral pleural thickening. No acute infiltrates are noted. Laboratory Results WBC 12.3 10^3/uL (4.0-10.0) H 06/25/21 13:20 RBC 4.50 10^6/uL (4.1-5.3) 06/25/21 13:20 Hgb 13.2 g/dL (11.7-16.6) 06/25/21 13:20 Hct 40.4 % (42.0-52.0) L 06/25/21 13:20 MCV 89.8 fl (80-94) 06/25/21 13:20 MCH 29.3 pg (28.0-34.0) 06/25/21 13:20 MCHC 32.7 g/dL (30.0-36.0) 06/25/21 13:20 RDW 13.2 % (12.1-15.1) 06/25/21 13:20 Plt Count 187 10^3/cmm (130-400) 06/25/21 13:20 MPV 10.8 fL (7.4-10.4) H 06/25/21 13:20 Neut % (Auto) 81.0 % 06/25/21 13:20 Lymph % (Auto) 13.3 % 06/25/21 13:20 Caroline % (Auto) 4.2 % 06/25/21 13:20 Eos % (Auto) 0.6 % 06/25/21 13:20 Baso % (Auto) 0.3 % 06/25/21 13:20 Neut # (Auto) 9.96 10^3/uL (1.8-7.7) H 06/25/21 13:20 Lymph # (Auto) 1.6 10^3/uL (0.8-4.8) 06/25/21 13:20 Caroline # (Auto) 0.5 10^3/uL (0.2-0.9) 06/25/21 13:20 Eos # (Auto) 0.1 10^3/uL (0.0-0.8) 06/25/21 13:20 Baso # (Auto) 0.0 10^3/uL (0.0-0.1) 06/25/21 13:20 Nucleated RBC % (auto) 0 % 06/25/21 13:20 Nucleated RBCs # 0.0 /100WBC 06/25/21 13:20 Sodium 138 mmol/L (136-145) 06/25/21 13:20 Potassium 6.1 mmol/L (3.5-5.1) H 06/25/21 14:20 Chloride 107 mmol/L (98-107) 06/25/21 13:20 Carbon Dioxide 22 mmol/L (22-29) 06/25/21 13:20 Anion Gap 16.2 (5-19) 06/25/21 13:20 BUN 36 mg/dL (8-23) H 06/25/21 13:20 Creatinine 2.2 mg/dL (0.7-1.2) H 06/25/21 13:20 GFR Calculation Not Reportable 06/25/21 13:20 Glucose 185 mg/dL (65-115) H 06/25/21 13:20 POC Glucose 114 mg/dL (70-110) H 06/25/21 16:31 Calculated Osmolality 299 mOsm/kg (285-295) H 06/25/21 13:20 Calcium 9.2 mg/dL (8.5-10.5) 06/25/21 13:20 Total Bilirubin 0.4 mg/dL (0.15-1.2) 06/25/21 13:20 AST 31 U/L (0-40) 06/25/21 13:20 ALT 26 U/L (0-41) 06/25/21 13:20 Alkaline Phosphatase 77 IU/L (40-130) 06/25/21 13:20 Troponin T Baseline 66 ng/L (0-15) H 06/25/21 13:20 Troponin T 120 Minute 71.09 ng/L (0-15) H 06/25/21 14:20 Delta Troponin T 5.09 ABS# (0-10) 06/25/21 14:20 Total Protein 6.4 g/dL (6.6-8.7) L 06/25/21 13:20 Albumin 4.0 g/dL (3.5-5.2) 06/25/21 13:20 Globulin 2.4 g/dL (1.3-4.6) 06/25/21 13:20 TSH 2.20 uIU/mL (0.27-4.20) 06/25/21 13:20 Urine Color Yellow (Yellow) 06/25/21 14:36 Urine Appearance Clear (CLEAR) 06/25/21 14:36 Urine pH 5 (5-7) 06/25/21 14:36 Ur Specific [place] 1.015 (1.005-1.030) 06/25/21 14:36 Urine Protein Neg (Negative) 06/25/21 14:36 Urine Glucose (UA) Norm (Normal) 06/25/21 14:36 Urine Ketones Negative (Negative) 06/25/21 14:36 Urine Blood Neg (Negative) 06/25/21 14:36 Urine Nitrate Negative (Negative) 06/25/21 14:36 Urine Bilirubin Neg (Negative) 06/25/21 14:36 Urine Urobilinogen Neg mg/dL (Negative) 06/25/21 14:36 Ur Leukocyte Esterase Negative (Negative) 06/25/21 14:36 A&P Assessment and plan (1) Bradycardia: Symptomatic with heart rate generally staying 20s to 40s. Not on beta-blockade due to known history of bradycardia associated with this. Only other notable medications are isosorbide and amlodipine. In talking with him he does have untreated sleep apnea, prostatic hypertrophy and increasing urinary symptoms. Presently however has significant hyperkalemia with initial level at 7.2. TSH was checked and was normal. Status: Acute (2) Hyperkalemia: Has been on potassium supplementation, also on spironolactone, losartan and has acute kidney injury compared to baseline labs, EKG with peaked T waves initially. Labs from the [facility] on June 17 showed potassium of 5.0. Status: Acute (3) Acute kidney injury: On chronic kidney disease stage 2-3, BUN and creatinine at [facility] on 06/17/2021 was 23/1.79. In February 2021 BUN and creatinine were 12/1.1. He is chronically on ARB, Aldactone, Lasix. Also with history of prostatic hypertrophy with worsening lower urinary tract symptoms. Has history of ureteral stone in the past also. Reports noncompliance with his water pills, increasing overall girth. Status: Acute (4) Accelerated hypertension: Chronically on amlodipine, Lasix, isosorbide, losartan and Aldactone, has not had his medications today Status: Acute (5) Congestive heart failure: Acute on chronic preserved ejection fraction last echocardiogram Status: Chronic Qualifiers: Heart failure chronicity: acute on chronic Heart failure type: diastolic Qualified Code(s): I50.33 - Acute on chronic diastolic (congestive) heart failure (6) Abnormal nuclear stress test: Per Dr. Segura clinical notes although upon review it looks like abnormalities could also be consistent with attenuation defects. This is from stress testing done in September of last year. Status: Acute (7) Coronary artery disease: Has not required previous intervention. Records indicate last arteriogram showed 55% narrowing and unclear vessel. 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: with 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 Diabetes mellitus complication status: with neurologic complications Diabetes mellitus complication detail: with polyneuropathy Qualified Code(s): E11.42 - Type 2 diabetes mellitus with diabetic polyneuropathy; 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 (11) BPH NOS w/o ur obs/LUTS: Chronically on finasteride and Flomax, describes progressive lower urinary symptoms suggestive of potential bladder outlet obstruction contributing to acute kidney injury Status: Chronic (12) Calculus of proximal ureter: Has been present for some time, nonobstructing or at least in the same location last time it was evaluated, patient does not describe classic symptoms of kidney stones but at risk of having an obstructive process Status: Acute (13) Hyperlipidemia: Lipid panel checked June 17, 2021 at the [facility] showed total cholesterol of 206, triglycerides of 189, HDL of 43.9 and calculated LDL of 124.3 with an HDL to total cholesterol ratio of 21.3% Chronically on statin Status: Chronic Qualifiers: Hyperlipidemia type: unspecified Qualified Code(s): E78.5 - Hyperlipidemia, unspecified (14) Obstructive sleep apnea: Does not wear CPAP by choice Status: Chronic (15) BMI 40.0-44.9, adult: Status: Acute (16) Nicotine dependence, chewing tobacco, with other nicotine-induced disorders: Status: Chronic Plan Mild rhabdomyolysis Known peripheral artery disease on pentoxifylline chronically Chronic neuropathic pain on Lyrica Inpatient admission ICU care Maintain pacer pads Reviewed with patient the concept of external pacing of the heart and gave him an opportunity to ask questions CODE STATUS was verified as full code Has received calcium x2 doses, insulin and D50, bicarb x2 doses, Lasix x1 dose and Kayexalate Repeat potassium level at 7 Additional management as needed Hold IV fluids Santo catheter placement for close monitoring of urine output and due to urinary retention >> had about a liter urine output after Santo was placed Increase Flomax to twice daily dosing, continue finasteride Renal ultrasound Continue serial cardiac enzymes and EKGs Telemetry monitoring Cardiology consultation with Dr. Fernandez, I have spoken with him Continue a lower dose of Eliquis presently, conferred with Dr. Fernandez regarding continuation Will utilize Nitropaste for blood pressures presently and if necessary institute nitroglycerin drip, bradycardia, reported allergy to hydralazine and acute kidney injury limits options Monitor blood pressures as well as for symptoms of uncontrolled hypertension We will continue pentoxifylline With current blood sugars will institute low-dose of long-acting insulin along with sliding scale, hold Ozempic Hold statin therapy Recheck CK in the morning Oxygen therapy if needed for sleep apnea, has declined CPAP/BiPAP in the past Continue home Lyrica at a lower dose Need to evaluate sacral area for wounds when more stable Eliquis provides VTE prophylaxis presently PPI for GI prophylaxis Supportive care otherwise Findings, concerns and plans were discussed with patient and he was given an opportunity to ask questions Attestations Medical Necessity Statement*: Anticipated stay greater than 2 midnights in this gentleman presenting with symptomatic bradycardia found to have significant hyperkalemia and acute kidney injury. He has other comorbid conditions as noted above. Plans are as indicated. Presently at high risk of progression to more critical illness without direct intervention up to and including the possibility of . Coding Level of Care Code Acute Educational Administrator for Chg Fwd Diagnoses Bradycardia R00.1 Abnormal nuclear stress test R94.39 Accelerated hypertension I10 Nicotine dependence, chewing tobacco, with other nicotine-induced disorders F17.228 Chronic anticoagulation Z79.01 Congestive heart failure I50.33 Heart failure chronicity: acute on chronic Heart failure type: diastolic Acute kidney injury N17.9 Hyperkalemia E87.5 Calculus of proximal ureter N20.1 Atrial fibrillation I48.11 Atrial fibrillation type: longstanding persistent Coronary artery disease I25.10 BMI 40.0-44.9, adult Z68.41 Diabetes mellitus, type II E11.42; Z79.4 Diabetes mellitus halfway insulin use: with 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
[2021-06-25] MEDS: FUROsemide 10 mg/mL SDV 4mL 40 MG IVP (16:34)
[2021-06-25] MEDS: sodium bicarbonate 8.4% 1 mEq/mL 50mL Syr 50 MEQ IVP (16:35)
[2021-06-25 16:47] LABS: Glucose Point of Care 114 mg/dL (70-110)
--- NOTE | 2021-06-25 17:57 | USR_ITS ---
PROCEDURE INFORMATION: Exam: US Retroperitoneal; Complete; Kidneys and Bladder Exam date and time: 06/25/2021 6:59 PM Age: 71 years old Clinical indication: Condition or disease; Kidney or ureter condition; Calculus (stone) in kidney; Additional info: HX kidney stone, acute kidney injury, bph TECHNIQUE: Imaging protocol: Real-time ultrasound of the retroperitoneum with image documentation. Complete exam focused on the kidneys and bladder. COMPARISON: US renal BI with PV bladder 11/09/2019 6:25 AM FINDINGS: Right kidney: Normal. No stones. No hydronephrosis. Left kidney: Two left kidney cysts measuring up to 19 mm. Urinary bladder: Not visualized. US/US renal BI* [id number] IMPRESSION: 1. Negative for hydronephrosis or renal calculus. 2. Two left kidney cysts measuring up to 19 mm.
[2021-06-25 18:01] LABS: Magnesium 2.1 mg/dL (1.7-2.3); Phosphorus 3.4 mg/dL (2.5-4.5); Uric Acid 11.2 mg/dL (3.4-7.0)
[2021-06-25 18:04] LABS: Creatine Phosphokinase 675 U/L (39-308)
[2021-06-25 18:25] LABS: INR 1.22 (0.8-1.2)
[2021-06-25 18:26] LABS: Partial Thromboplastin Time 34.5 SECONDS (23.9-36.7)
--- NOTE | 2021-06-25 18:30 | PC.NURSE ---
Pt. arrived to room 8 in ICU. Pt. has heart rate ranging from 25-35 beats per minute. Pt. is very uncooperative and rude to staff even after multiple attempts to explain his health status.
--- NOTE | 2021-06-25 18:52 | ECG_ITS ---
[facility] Test Date: 2021-06-25 Pat Name: Giles Guillaume Department: Room: [facility] [id number] Gender: Male [place]: : 1950 Requested By: Roberto Briggs Order Number: [id number] Shelton MD: Dennys Fernandez M.D. Measurements Intervals [place] Rate: 31 P: [place]: QRS: -66 QRSD: 141 T: 83 QT: 571 QTc: 414 Interpretive Statements ATRIAL FIBRILLATION WITH SLOW VENTRICULAR RESPONSE LEFT AXIS DEVIATION [QRS AXIS < -30] LEFT BUNDLE BRANCH BLOCK [120+ ms QRS DURATION, 80+ ms Q/S IN V1/V2, 85+ ms R IN I/aVL/V5/V6] PROLONGED QT INTERVAL CRITICAL TEST RESULT Compared to ECG 06/25/2021 15:04:35 No significant changes Electronically Signed On 06-26-2021 17:15:57 CDT by Dennys Fernandez M.D. [email or web address]
--- NOTE | 2021-06-25 19:45 | PC.NURSE ---
Dr. Tovar at nurses station and updating me on patient status. She states it is ok for patient to get up to bedside commode for BM's. Also states that she is aware of patient heart rate and status and that cardiology is aware also. States patient will not need to be paced unless becomes symptomatic.
[2021-06-25 21:01] LABS: Troponin 5 6HR 70.78 ng/L (0-15)
[2021-06-25 21:03] LABS: Anion Gap 16.1 (5-19); Blood Urea Nitrogen 35 mg/dL (8-23); Carbon Dioxide 23 mmol/L (22-29); Chloride 108 mmol/L (98-107); Glucose 131 mg/dL (65-115); Osmolality Calculated 304 mOsm/kg (285-295); Potassium 5.1 mmol/L (3.5-5.1); Sodium 142 mmol/L (136-145)
[2021-06-25 21:05] LABS: Troponin 5 6HR Delta 4.78 ng/L (0-12)
[2021-06-25] MEDS: apixaban 5 mg Tablet 2.5 MG PO (21:55)
[2021-06-25] MEDS: nitroglycerin 1 gm/inch oint Pkt 1 INCH TOPICAL (21:56)
[2021-06-25] MEDS: tamsulosin 0.4 mg Capsule PO (21:57)
[2021-06-25 22:13] LABS: Glucose Point of Care 125 mg/dL (70-110)
[2021-06-26] VITALS (115 sets, daily range): BP systolic 103–185; BP diastolic 49–149; PULSE 27–80; RESP 7–30; TEMP 36.6–37.1; O2SAT 80–97
--- NOTE | 2021-06-26 01:15 | PC.NURSE ---
Entered patients room and patient has pulled off all of monitor cables and probes and pulled out bilateral ac iv's. Will attempt to replace Iv's.
--- NOTE | 2021-06-26 01:15 | PC.NURSE ---
Pt. ripped off all electrodes and is attempting to get out of bed. Pt. states he has to pee and educated that he has a christine catheter so he does not geed to get up to pee. Patient gets very angry and states that he is leaving and doesn't want to be in the hospital. After further conversation with patient convinced him to stay in hospital.
[2021-06-26 04:19] LABS: Basophils # 0.1 10^3/uL (0.0-0.1); Basophils % 0.3 %; Eosinophils # 0.1 10^3/uL (0.0-0.8); Eosinophils % 0.3 %; Hematocrit 42.1 % (42.0-52.0); Hemoglobin 13.6 g/dL (11.7-16.6); Lymphocytes # 3.1 10^3/uL (0.8-4.8); Mean Corpuscular HGB Conc 32.3 g/dL (30.0-36.0); Mean Corpuscular Volume 89.8 fl (80-94); Mean Platelet Volume 11.5 fL (7.4-10.4); Monocytes # 1.3 10^3/uL (0.2-0.9); Monocytes % 6.5 %; Neutrophils # 14.73 10^3/uL (1.8-7.7); Neutrophils % 76.4 %; Nucleated Red Blood Cells % 0 %; Platelet Count 204 10^3/cmm (130-400); Red Blood Count 4.69 10^6/uL (4.1-5.3); Red Cell Distribution Width 13.3 % (12.1-15.1); White Blood Count 19.3 10^3/uL (4.0-10.0)
[2021-06-26 04:47] LABS: Alanine Aminotransferase 23 U/L (0-41); Albumin Level 4.1 g/dL (3.5-5.2); Alkaline Phosphatase 80 IU/L (40-130); Anion Gap 17.7 (5-19); Aspartate Amino Transferase 24 U/L (0-40); Blood Urea Nitrogen 37 mg/dL (8-23); Calcium 9.9 mg/dL (8.5-10.5); Carbon Dioxide 25 mmol/L (22-29); Chloride 106 mmol/L (98-107); Globulin 2.5 g/dL (1.3-4.6); Glucose 114 mg/dL (65-115); Osmolality Calculated 308 mOsm/kg (285-295); Potassium 4.7 mmol/L (3.5-5.1); Sodium 144 mmol/L (136-145); Total Bilirubin 0.7 mg/dL (0.15-1.2); Total Protein 6.6 g/dL (6.6-8.7)
[2021-06-26 04:48] LABS: Magnesium 2.3 mg/dL (1.7-2.3); Phosphorus 5.1 mg/dL (2.5-4.5)
[2021-06-26 04:53] LABS: Creatine Phosphokinase 244 U/L (39-308); NT Pro B Type Natriuretic Pept 4493 pg/mL (0-125); Uric Acid 11.8 mg/dL (3.4-7.0)
--- NOTE | 2021-06-26 05:16 | PC.NURSE ---
Currently sitting outside of room since 299 to keep patient in bed due to weakness and to keep patient from pulling out lines.
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
[2021-06-26] MEDS: DOPamine drip 400 MG/250 ML PREMIX 10.89 MG IV (05:48)
--- NOTE | 2021-06-26 06:00 | PC.NURSE ---
drawing supervisor Yudy at bedside attempting to keep patient calm at this time. Pt. is refusing to wear oxygen even with O2 saturation at 82%. Will continue to attempt to get patient to wear oxygen.
--- NOTE | 2021-06-26 06:01 | PC.NURSE ---
Pt. also has been refusing to keep still while blood pressure has been getting reading making it very difficult to get a blood pressure. This is an ongoing issue we will continue to try and overcome
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
[2021-06-26] MEDS: nitroglycerin 1 gm/inch oint Pkt 1 INCH TOPICAL (07:53)
[2021-06-26 07:54] LABS: Glucose Point of Care 184 mg/dL (70-110)
[2021-06-26 09:04] LABS: Erythrocyte Sedimentation Rate 7 mm/hr (0-10)
[2021-06-26 09:13] LABS: C Reactive Protein 12.2 mg/L (0.0-4.9)
[2021-06-26 09:20] LABS: Procalcitonin 0.25 ng/mL (0-0.5)
--- NOTE | 2021-06-26 10:07 | XR_ITS ---
WS: [id number] Exam: XR chest 1V portable [id number] Date/Time of Exam: 06/26/2021 10:11 AM Reason For Exam: intubation Comparison 06/25/2021. An ET tube is been placed and appears to end about 6 cm above the blair in good position. The lungs appear to be well ventilated. An enteric tube is noted with the tip near the gastroesophageal junctio n. The side-port of the tube is in the lower esophagus. The tube should be advanced another 8 to 10 c m for optimal position. The heart is enlarged but unchanged in size. The lungs are fully inflated as visualized. No obvious consolidating infiltrates or pleural effusions are seen. Multiple monitoring l edwige superimpose the chest. XR/XR chest 1V portable [id number] IMPRESSION: 1. ET tube in place ending about 6 cm above the balir in good position. 2. Enteric tube in place ending in the esophagus. The tip of the tube is probab ly near the GE junction. The tube should be advanced another 8 to 10 cm for opt imal position. 3. Remaining aspects the chest show little change. These findings were discussed by phone with Dr. Lombardi at 1023 hours 06/26/2021
[2021-06-26] MEDS: propofol 1,000 MG/100 ML INJ 17.42 MG IV (10:15)
--- NOTE | 2021-06-26 10:18 | P.ANES_ITS ---
Anesthesia Procedures Procedure/Date: 06/26/21
--- NOTE | 2021-06-26 10:18 | ANES.PROC ---
Anesthesia Procedures Procedure/Date: 06/26/21
--- NOTE | 2021-06-26 10:41 | PC.NURSE ---
Patient intubated and taken to paint laboratory technician for temporary pacemaker. This nurse with patient to monitor 1:1 and titrate sedation.
--- NOTE | 2021-06-26 11:29 | PM.MISC ---
Miscellaneous Note Purpose of Documentation: Procedure note Name of procedure: Temporary transvenous pacemaker placement Right femoral arterial line placement Indications: Patient presented with hyperkalemia, chronic atrial fibrillation and heart rates in the 20s and 30s. Despite correction of the hyperkalemia his heart rate remains in the 20s and 30s. He has become confused and disoriented and delirious. Temporary transvenous pacemaker placement is indicated for improvement of heart rate control. Description of procedure: This is an emergency procedure. Patient required endotracheal intubation and sedation prior to the procedure. He was brought to the Clinical Nurse Specialist where he was prepped and draped in the standard fashion. A 6 Kyrgyz sheath was placed in the right femoral vein. Subsequently, a transvenous pacemaker was placed across the tricuspid valve and into the right ventricle. Settings were a backup rate of 80 with a milliamps of 2. After this, a 4 Kyrgyz sheath was placed in the right femoral artery without complication. Both sheaths were sutured in place. The patient tolerated the procedure well and there were no complications.
[2021-06-26 11:41] LABS: Glucose Point of Care 186 mg/dL (70-110)
--- NOTE | 2021-06-26 11:55 | PC.CHAP ---
Pastoral Care Encounter/Spiritual Assessment Type of Contact [] Declined balloon tester visit [] Patient/Family/Request visit [] Outpatient visit [] Follow-up visit [] Physician referral [] Code/Alert [x] Routine visit [] Staff referral [] Actively dying [] Patient sleeping [] Family support [] [] Out of room [] Palliative care [] [x] Receiving care in room [] Pre-surgical visit [] Trauma [] Long length of stay [x] ICU visit [x] Other: sitter... preparing for procedure.. patient not in the best frame of mind... Relational/Emotional Strength [] Patient feels connected with others/family/visitors/staff [] Distress [] Loneliness/isolation [] Abandonment Spirituality of Patient [] Person of Christina [] Attends Protestant of their Christina [] Believes in Prayer [] Reads Bible or Mormonism materials [] There are Spiritual issues to be addressed Executive Associate Interventions [x] Prayer [] Active listening [] Non-anxious presence [] Spiritual/emotional support [] Crisis/trauma care [] Spiritual counseling [] Bereavement support [] Provided bereavement packet [] Provided Bible/devotional materials [] Provided toy/stuffed animal, coloring book to patient or family member [] Provided Communion [] Anointing/[place] [] Salvation [x] Completed spiritual assessment [] Other: Impact on Illness or Injury [] Angry [] Fearful [] Anxious [] Often cries [] Exhaustion [] Unable to work [] Unable to attend anglican [] Unable to walk/stand [] Unable to read [] Unable to drive [] Unable to eat/drink [] Unable to sleep [] Unable to be with family [] Patient intubated [] Other: Summary Time spent with patient
[2021-06-26] MEDS: FUROsemide 10 mg/mL SDV 4mL 40 MG IVP (12:14)
[2021-06-26] MEDS: piperacillin-tazobactam 3.375 GM in sodium chloride 0.9% (plus) 50 ML IV ×2 (12:14→20:02)
[2021-06-26 13:22] LABS: ABG PCO2 40.5 mmHg (35-45); ABG PH Result 7.36 (7.35-7.45); Arterial Blood Gas Hematocrit 36.3 % (42-52); Base Excess ABG -2.6 mmol/L (-2.0-2.0); Blood Gas Allen Test Pos; Blood Gas Sample Type Arterial; Carboxyhemoglobin 1.2 %THgb (0.4-20.1); HCO3 ABG 22.7 mmol/L (22-26); HGB O2 Sat 96.5 % (95-100); Ionized Calcium Level - ABG 1.1 mmol/L (1.1-1.4); Oxygen Saturation ABG 98.7; Potassium Level - ABG 4.2 mmol/L (3.5-5.0); Total Hemoglobin 11.9 g/dL (14-18)
[2021-06-26 13:23] LABS: Alveolar-Arterial Oxygen Gradi 51.5 mmHg (5-10); Blood Gas Operator Identificat BD; Blood Gas Sample Site ALINE; Blood Gas Tidal Volume 0.45; Oxygen Device VENT
[2021-06-26] MEDS: propofol 1,000 MG/100 ML INJ 26.13 MG IV ×2 (13:35→18:49)
--- NOTE | 2021-06-26 13:51 | PM.PN ---
Subjective Subjective: -Patient was seen earlier this morning, currently he is alert to person, to place, not to time, he is thrashing around, is reoriented well, however he keeps trying to get out of bed, will not lie still, he tells me that he hurts all over, he feels short of breath, -At this point, patient's heart rates were in the low 20s, he was ripping off his oxygen, O2 sats in the low 80s, normotensive, agitated, confused, -I had a detailed discussion with Dr. Fernandez, given patient's altered mental status, persistent bradycardia, now with hypoxia, he would be a high risk to perform a emergency pacemaker placement in his current state, without for stabilizing him, plan on intubating him protecting his airway, and then proceeding with pacemaker placement -I spoke to Dr. Claros, who kindly agreed to intubate patient -Currently patient was alert to person, to place, not to time, I discussed with him pacemaker placement he was agreeable however ascertaining his alertness to make complex medical decision was difficult -No family listed in the chart, -Thus patient needs emergency intubation, to protect his airway, for severe bradycardia, hypoxia, altered mental status in order to place pacemaker. Me and Dr. Claros agreed to proceed with intubation, emergency intubation. -Patient was monitored in ICU during his intubation, was intubated successfully with Dr. Claros, during the intubation process he never lost his blood pressure, he did develop bradycardia heart rates into the low 20s, a few pauses, did not lose his blood pressure, no other significant rating events, currently on 80% FiO2 -External pacing was started for severe bradycardia, also given 3 mg of atropine -Patient's ET tube was in the correct position, currently on fentanyl, propofol, -OG tube is in esophagus needs to be done, notified nurse -Patient O2 sats were in the mid 80s, recovered to the low 90s, after few minutes of ventilation, he was externally paced, heart rates in the 80s to 90s, normotensive, no episodes of agitation -Patient now will be taken for emergent temporary pacemaker placement -Patient was seen after temporary transvenous pacemaker placement currently on propofol, fentanyl, normotensive, paced, will be given Lasix, Zosyn, will do a weaning trial this afternoon, art line in place, good peripheral 2 IVs, O2 sats in the high 90s, paced in the 90s, normotensive Vitals/I&O/Wt Last Vital Signs Temp 97.8 F 06/26/21 04:00 Pulse 41 L 06/26/21 10:00 Resp 16 06/26/21 13:29 BP 141/56 06/26/21 10:00 Pulse Ox 96 06/26/21 13:29 06/25/21 06/26/21 06/26/21 22:59 06:59 14:59 Intake Total 145.253 / 145.253 Output Total 1000 / 1000 400 / 400 Balance -1000 / -1000 -254.747 / -254.747 Weight last 48 hrs Weight 145.15 kg Weight 146.057 kg Physical Exam Narrative: Agitated confused, alert to person, to place, not to time, keeps try to get up out of bed, ripping out his IV lines, not lying still, confused, crackles on exam, heart rates in the low 20s, sinus bradycardia, normotensive, tachypneic, O2 sats in the low 80s has a history of being off his oxygen Const: COMMON NORMALS: no acute distress Neck/C-Spine: COMMON NORMALS: no JVD Resp: COMMON NORMALS: normal respiratory effort, No retractions and No use of accessory muscles Cardio: COMMON NORMALS: no JVD, S1 normal heart sound present and S2 normal heart sound present HEART SOUNDS: S1 normal heart sound present and S2 normal heart sound present GI: COMMON NORMALS: Normal to inspection, nondistended, normoactive bowel sounds present, Soft to palpation, non-tender and No hepatosplenomegaly present PALPATION: Yes Soft to palpation and Yes No hepatosplenomegaly present Extremity: COMMON NORMALS: no pedal edema Urinary Catheter Management: Santo: Cath Placed During This Visit: yes Reason for Continuing Indwelling Catheter: Accurate Measurement of Urinary Output in Critically Ill Patients Urinary Catheter Date of Insertion: 06/25/21 Urinary Catheter Time of Insertion: 17:28 Data : 06/26/21 03:35 06/26/21 03:35 A&P Assessment and plan (1) Bradycardia: Symptomatic with heart rate generally staying 20s to 40s. Not on beta-blockade due to known history of bradycardia associated with this. Only other notable medications are isosorbide and amlodipine. In talking with him he does have untreated sleep apnea, prostatic hypertrophy and increasing urinary symptoms. Presently however has significant hyperkalemia with initial level at 7.2. TSH was checked and was normal. Status: Acute (2) Hyperkalemia: Has been on potassium supplementation, also on spironolactone, losartan and has acute kidney injury compared to baseline labs, EKG with peaked T waves initially. Labs from the [facility] on June 17 showed potassium of 5.0. Status: Acute (3) Acute kidney injury: On chronic kidney disease stage 2-3, BUN and creatinine at [facility] on 06/17/2021 was 23/1.79. In February 2021 BUN and creatinine were 12/1.1. He is chronically on ARB, Aldactone, Lasix. Also with history of prostatic hypertrophy with worsening lower urinary tract symptoms. Has history of ureteral stone in the past also. Reports noncompliance with his water pills, increasing overall girth. Status: Acute (4) Accelerated hypertension: Chronically on amlodipine, Lasix, isosorbide, losartan and Aldactone, has not had his medications today Status: Acute (5) Congestive heart failure: Acute on chronic preserved ejection fraction last echocardiogram Status: Chronic Qualifiers: Heart failure chronicity: acute on chronic Heart failure type: diastolic Qualified Code(s): I50.33 - Acute on chronic diastolic (congestive) heart failure (6) Abnormal nuclear stress test: Per Dr. Segura clinical notes although upon review it looks like abnormalities could also be consistent with attenuation defects. This is from stress testing done in September of last year. Status: Acute (7) Coronary artery disease: Has not required previous intervention. Records indicate last arteriogram showed 55% narrowing and unclear vessel. Describes anginal type symptoms lately although this could be related to demand ischemia from impact of bradycardia Status: Chronic (8) Atrial fibrillation: Presently with slow ventricular response, chronic Status: Chronic Qualifiers: Atrial fibrillation type: longstanding persistent Qualified Code(s): I48.11 - Longstanding persistent atrial fibrillation (9) Chronic anticoagulation: Chronically on Eliquis Status: Chronic (10) Diabetes mellitus, type II: Hemoglobin A1c at the [facility] June 17, 2021 was 8.0 Chronically on insulin and semaglutide Status: Chronic Qualifiers: Diabetes mellitus chief investment officer insulin use: with chief investment officer use Diabetes mellitus complication status: with neurologic complications Diabetes mellitus complication detail: with polyneuropathy Qualified Code(s): E11.42 - Type 2 diabetes mellitus with diabetic polyneuropathy; Z79.4 - [facility] (current) use of insulin (11) BPH NOS w/o ur obs/LUTS: Chronically on finasteride and Flomax, describes progressive lower urinary symptoms suggestive of potential bladder outlet obstruction contributing to acute kidney injury Status: Chronic (12) Calculus of proximal ureter: Has been present for some time, nonobstructing or at least in the same location last time it was evaluated, patient does not describe classic symptoms of kidney stones but at risk of having an obstructive process Status: Acute (13) Hyperlipidemia: Lipid panel checked June 17, 2021 at the [facility] showed total cholesterol of 206, triglycerides of 189, HDL of 43.9 and calculated LDL of 124.3 with an HDL to total cholesterol ratio of 21.3% Chronically on statin Status: Chronic Qualifiers: Hyperlipidemia type: unspecified Qualified Code(s): E78.5 - Hyperlipidemia, unspecified (14) Obstructive sleep apnea: Does not wear CPAP by choice Status: Chronic (15) BMI 40.0-44.9, adult: Status: Acute (16) Nicotine dependence, chewing tobacco, with other nicotine-induced disorders: Status: Chronic Plan Acute symptomatic bradycardia -Requiring emergency intubation, atropine, external pacing, now with temporary transvenous pacemaker placement -Stop dopamine drip -Dr. Fernandez on consult Acute respiratory failure, hypoxia, altered mental status -Concerns for aspiration, started on Zosyn -Likely secondary to sinus bradycardia -Also evidence of fluid overload pulmonary edema given 1 dose of Lasix -Continue intubation, sedation, mechanical ventilation will analyze tidal volume, minimize FiO2 -Spontaneous breathing trial -Plan on extubation next 24 hours Hyperkalemia, resolved, recheck labs this afternoon History of atrial fibrillation, on Eliquis, currently hold Eliquis, will transition to heparin drip Type II days mellitus, low-dose sliding scale History of CVA, monitor History of CAD, will continue to monitor, cardiac echocardiogram Hypertension, hold home medications Peripheral arterial disease, bilateral lower extremities are bluish discolored, DP PT pulses barely palpable, likely secondary to bradycardia, however cannot rule out peripheral arterial disease will do ultrasound waveforms, Doppler pulses Attestations Medical Necessity Statement*: Patient requires hospitalization for sinus bradycardia Critical Care Time: 55 Coding Level of Care Code Acute Optical Fabrication Technician for gonzález Tee Diagnoses Bradycardia R00.1 Hyperkalemia E87.5 Acute kidney injury N17.9 Accelerated hypertension I10 Congestive heart failure I50.33 Heart failure chronicity: acute on chronic Heart failure type: diastolic Abnormal nuclear stress test R94.39 Coronary artery disease I25.10 Atrial fibrillation I48.11 Atrial fibrillation type: longstanding persistent Chronic anticoagulation Z79.01 Diabetes mellitus, type II E11.42; Z79.4 Diabetes mellitus chief investment officer insulin use: with alf use Diabetes mellitus complication status: with neurologic complications Diabetes mellitus complication detail: with polyneuropathy BPH NOS w/o ur obs/LUTS N40.0 Calculus of proximal ureter N20.1 Hyperlipidemia E78.5 Hyperlipidemia type: unspecified Obstructive sleep apnea G47.33 BMI 40.0-44.9, adult Z68.41 Nicotine dependence, chewing tobacco, with other nicotine-induced disorders F17.228
--- NOTE | 2021-06-26 16:15 | ANES.PROC ---
Anesthesia Procedures Procedure/Date: 06/26/21 Intubation: Time Out Performed: Yes Consent: requested by attending/covering physician and emergency procedure Sedative (amount): etomidate Paralytic (amount): rocuronium Laryngoscope: fiber optic video scope ET Tube Size: 8 ET Tube Uncuffed: Yes Tube Secured Depth (cm): 23 Tube Secured Location: teeth Tube Placement Confirmation: visualized tube passing through cords, equal breath sounds bilaterally, no breath sounds over epigastrium and color change noted Additional Comments: Called to ICU for emergency intubation for uncooperative patient with symptomatic profound bradycardia. Patient skin tone pale, SpO2% WNL. 100 mcg fentanyl, 2 mg midazolam, 100 mg lidocaine administered. Pre - O2. 20 mg etomidate, 100 mg rocuronium rapid push. Smooth intubation. Color change noted on qualitative ETCO2 measurment. BBS. Tube secured. Bradcyardia noted after intubation. 200 mcg + 100 mcg atropine, 5 mg ephedrine administered, transcutaneous pacing started. Patient skin color immediately improved post intubation. Sats drifted down to 86% slowly came up. CXR confirmed tube placement. Taken to director geophysical laboratory.
[2021-06-26 16:23] LABS: Alanine Aminotransferase 20 U/L (0-41); Albumin Level 3.7 g/dL (3.5-5.2); Alkaline Phosphatase 68 IU/L (40-130); Aspartate Amino Transferase 24 U/L (0-40); Blood Urea Nitrogen 42 mg/dL (8-23); Calcium 9.4 mg/dL (8.5-10.5); Carbon Dioxide 20 mmol/L (22-29); Chloride 107 mmol/L (98-107); Globulin 2.5 g/dL (1.3-4.6); Glucose 171 mg/dL (65-115); Magnesium 2.1 mg/dL (1.7-2.3); NT Pro B Type Natriuretic Pept 6641 pg/mL (0-125); Osmolality Calculated 307 mOsm/kg (285-295); Phosphorus 5.2 mg/dL (2.5-4.5); Sodium 141 mmol/L (136-145); Total Bilirubin 0.8 mg/dL (0.15-1.2); Total Protein 6.2 g/dL (6.6-8.7)
[2021-06-26 16:27] LABS: Anion Gap 18.7 (5-19); Potassium 4.7 mmol/L (3.5-5.1)
[2021-06-26 16:33] LABS: Partial Thromboplastin Time 38.4 SECONDS (23.9-36.7)
[2021-06-26 17:25] LABS: Glucose Point of Care 148 mg/dL (70-110)
[2021-06-26] MEDS: atorvastatin 40 mg Tablet PO (18:47)
[2021-06-26] MEDS: insulin lispro 100 unit/1 mL SUBCUT (18:48)
[2021-06-26] MEDS: heparin drip 25,000 UNIT/500 ML PREMIX 36 UNIT IV (20:01)
[2021-06-26] MEDS: heparin 5,000 unit/mL INJ 1 mL IV (20:03)
[2021-06-26 20:07] LABS: Glucose Point of Care 134 mg/dL (70-110)
--- NOTE | 2021-06-26 20:29 | PC.NURSE ---
Heparin drip started 1999 running at 36 ml/hr per protocol.
--- NOTE | 2021-06-26 20:51 | PC.NURSE ---
Nitroglycerin paste removed from patient.
[2021-06-26] MEDS: propofol 1,000 MG/100 ML INJ 30.48 MG IV (23:45)
[2021-06-27] VITALS (71 sets, daily range): BP systolic 97–201; BP diastolic 50–84; PULSE 60–79; RESP 16–17; TEMP 37.1–37.5; O2SAT 92–98
--- NOTE | 2021-06-27 | SCC_ITS ---
Procedure done: Maker implantation 55 seconds of fluoroscopic guidance, for a cumulative dose of 32.55 mGy, was provided to Dr. Riggins by the radiology department. C-arm images of the chest were saved for the patient's permanent record. [facility]
[2021-06-27 02:17] LABS: Basophils % 0.2 %; Eosinophils % 0.3 %; Hematocrit 38.9 % (42.0-52.0); Hemoglobin 12.7 g/dL (11.7-16.6); Lymphocytes # 1.7 10^3/uL (0.8-4.8); Mean Corpuscular HGB Conc 32.6 g/dL (30.0-36.0); Mean Corpuscular Hemoglobin 29.2 pg (28.0-34.0); Mean Corpuscular Volume 89.4 fl (80-94); Mean Platelet Volume 10.6 fL (7.4-10.4); Monocytes # 0.8 10^3/uL (0.2-0.9); Neutrophils # 10.24 10^3/uL (1.8-7.7); Neutrophils % 80.2 %; Nucleated Red Blood Cells % 0 %; Platelet Count 152 10^3/cmm (130-400); Red Blood Count 4.35 10^6/uL (4.1-5.3); Red Cell Distribution Width 13.2 % (12.1-15.1); White Blood Count 12.8 10^3/uL (4.0-10.0)
[2021-06-27 02:38] LABS: Alanine Aminotransferase 17 U/L (0-41); Albumin Level 3.5 g/dL (3.5-5.2); Alkaline Phosphatase 61 IU/L (40-130); Anion Gap 15.9 (5-19); Aspartate Amino Transferase 22 U/L (0-40); Blood Urea Nitrogen 43 mg/dL (8-23); C Reactive Protein 194.9 mg/L (0.0-4.9); Calcium 9.1 mg/dL (8.5-10.5); Carbon Dioxide 27 mmol/L (22-29); Chloride 104 mmol/L (98-107); Globulin 2.5 g/dL (1.3-4.6); Glucose 112 mg/dL (65-115); Osmolality Calculated 308 mOsm/kg (285-295); Phosphorus 4.9 mg/dL (2.5-4.5); Potassium 3.9 mmol/L (3.5-5.1); Sodium 143 mmol/L (136-145); Total Bilirubin 0.8 mg/dL (0.15-1.2)
[2021-06-27 02:51] LABS: NT Pro B Type Natriuretic Pept 5419 pg/mL (0-125); Procalcitonin 1.31 ng/mL (0-0.5)
[2021-06-27 03:06] LABS: INR 1.25 (0.8-1.2)
[2021-06-27 03:07] LABS: Creatine Phosphokinase 433 U/L (39-308)
[2021-06-27 03:08] LABS: Partial Thromboplastin Time 46.3 SECONDS (23.9-36.7)
[2021-06-27] MEDS: propofol 1,000 MG/100 ML INJ 21.77 MG IV ×2 (03:16→08:23)
[2021-06-27] MEDS: heparin 5,000 unit/mL INJ 1 mL IV (03:33)
--- NOTE | 2021-06-27 04:01 | PC.NURSE ---
Heparin titration per APTT 46.3 2800 unit bolus given. Heparin drip to remain 36ml/hr for max dose limit.
[2021-06-27] MEDS: piperacillin-tazobactam 3.375 GM in sodium chloride 0.9% (plus) 50 ML IV ×3 (04:05→20:15)
[2021-06-27 05:12] LABS: ABG PCO2 32.6 mmHg (35-45); ABG PH Result 7.43 (7.35-7.45); Base Excess ABG -1.6 mmol/L (-2.0-2.0); Blood Gas Operator Identificat JB; Blood Gas Sample Site Not specified; Blood Gas Sample Type Arterial; HCO3 ABG 21.8 mmol/L (22-26); Oxygen Device VENT; PO2 ABG 75.9 mmHg (80.0-100.0)
[2021-06-27 05:13] LABS: Blood Gas Tidal Volume 0.45
--- NOTE | 2021-06-27 06:00 | USCV_ITS ---
Giles Guillaume Age: 71 Gender: M : 1950 Exam Date: 06/27/2021 11:00 Ordering Phys: Jone Pastor MD Technologist: Dean Bonner Exam Location: [facility] [place] Indication: SOB BP: 142 / 65 HR: Rhythm: Sinus Technical Quality: Technically difficult study MEASUREMENTS (Male / Female) Normal Values 2D ECHO LV Diastolic Diameter PLAX 3.9 cm 4.2 - 5.9 / 3.9 - 5.3 cm LV Systolic Diameter PLAX 2.4 cm IVS Diastolic Thickness 2.2 cm 0.6 - 1.0 / 0.6 - 0.9 cm IVS Systolic Thickness 2.2 cm LVPW Diastolic Thickness 1.8 cm 0.6 - 1.0 / 0.6 - 0.9 cm LVPW Systolic Thickness 2.3 cm LVOT Diameter 2.0 cm LV Ejection Fraction 2D Teich 67.9 % LA Diameter 4.3 cm Aorta at Sinotubular Diameter 2.3 cm M-MODE Aortic Annulus Diameter 3.4 cm LA Ao Ratio MM 1.3 MV E Point Septal Separation 0.3 cm DOPPLER RV Acceleration Time 0.1 s RV Ejection Time 0.2 s RV AcT/ET 0.3 FINDINGS Left Ventricle Mild left ventricular hypertrophy. Possibly normal LV size and ejection fraction. Since there was only parasternal and few subcostal views, segmental wall motion analysis and ejection fraction estimation are difficult. Right Ventricle Possibly normal size and ejection fraction Right Atrium Possibly of normal size. Could not visualize well Left Atrium Mildly increased left atrial size. Mitral Valve Thickened mitral valve. Aortic Valve Thickened aortic valve. Tricuspid Valve Tricuspid valve not well visualized. Pulmonic Valve Pulmonic valve not well visualized. Pericardium No pericardial effusion. Aorta Normal aortic annulus size. CONCLUSIONS Mild left ventricular hypertrophy. Possibly normal LV size and ejection fraction. Since there was only parasternal and few subcostal views, segmental wall motion analysis and ejection fraction estimation are difficult. Mildly increased left atrial size. Thickened aortic and mitral valves. No pericardial effusion. Technically very limited study Dr Refugio Kraus MD FAC (Electronically Signed) Final Date: 27 June 2021 15:19 S
--- NOTE | 2021-06-27 07:00 | XR_ITS ---
WS: [id number] Exam: XR chest 1V portable [id number] Date/Time of Exam: 06/27/2021 4:06 AM Reason For Exam: sob Comparison 06/26/2021. The lungs are fully expanded. An ET tube ends about 6 cm above the blair in good position. An NG tub e extends in the stomach but the tip is not visible. The heart is enlarged. There may be pleural thic kening or pleural effusion on the right. No consolidated infiltrates. Monitoring leads superimpose th e chest. XR/XR chest 1V portable [id number] IMPRESSION: 1. ET tube and NG tube in satisfactory position. 2. Cardiac enlargement. 3. Pleural thickening or pleural effusion on the right.
[2021-06-27 07:09] LABS: Glucose Point of Care 113 mg/dL (70-110)
--- NOTE | 2021-06-27 07:43 | PM.PN ---
Subjective Subjective: Patient was intubated and sedated yesterday. He then underwent placement of a temporary transvenous pacemaker via the right femoral vein and an arterial line placement via the right femoral artery. He remains intubated and sedated overnight and this morning. There have been no problems. His blood pressure has been stable. Urine output has been about 1200 cc overnight. He is on heparin, fentanyl and propofol drips. White blood cell count has come down to 12.8. Hemoglobin and hematocrit have remained stable. His INR is 1.25. His creatinine is up to 2.7 with a BUN of 43 this morning. CPK is 433. He remains on intravenous antibiotics and insulin. The Eliquis has been discontinued. Vitals/I&O/Wt Last Vital Signs Temp 99.5 F 06/27/21 04:15 Pulse 79 06/27/21 06:00 Resp 16 06/27/21 06:05 BP 147/65 06/27/21 06:00 Pulse Ox 93 06/27/21 06:05 06/26/21 06/27/21 06/27/21 22:59 06:59 14:59 Intake Total 196.207 / 341.460 454.51 / 795.970 0 / 0 Output Total 1300 / 1700 600 / 2300 Balance -1103.793 / -1358.540 -145.49 / -1504.030 0 / 0 Weight last 48 hrs Weight 313 lb 6 oz Weight 320 lb Weight 322 lb Physical Exam Narrative: GENERAL: In general he is intubated and sedated. HEENT: Exam within normal limits. NECK: Supple without jugular vein distention. The carotid upstroke is normal without bruits. BACK: Exam normal. LUNGS: Clear. HEART: Regular rate and rhythm. ABDOMEN: Benign without organomegaly or tenderness. Obese without tenderness EXTREMITIES: Trace edema. NEUROLOGIC: Not done due to sedation and intubation SKIN: Unremarkable. Urinary Catheter Management: Santo: Cath Placed During This Visit: yes Reason for Continuing Indwelling Catheter: Accurate Measurement of Urinary Output in Critically Ill Patients Urinary Catheter Date of Insertion: 06/25/21 Urinary Catheter Time of Insertion: 17:28 Data : 06/27/21 02:07 06/27/21 02:07 A&P Assessment and plan (1) Congestive heart failure: Status: Chronic Qualifiers: Heart failure chronicity: acute on chronic Heart failure type: diastolic Qualified Code(s): I50.33 - Acute on chronic diastolic (congestive) heart failure (2) Obstructive sleep apnea: Status: Chronic (3) Hyperlipidemia: Status: Chronic Qualifiers: Hyperlipidemia type: unspecified Qualified Code(s): E78.5 - Hyperlipidemia, unspecified (4) Chronic anticoagulation: Status: Chronic (5) Diabetes mellitus, type II: Status: Chronic Qualifiers: Diabetes mellitus fpc insulin use: with intermodal owner operator truck driver use Diabetes mellitus complication status: with neurologic complications Diabetes mellitus complication detail: with polyneuropathy Qualified Code(s): E11.42 - Type 2 diabetes mellitus with diabetic polyneuropathy; Z79.4 - marine oil terminal superintendent (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) use of insulin (6) Nicotine dependence, chewing tobacco, with other nicotine-induced disorders: Status: Chronic (7) PAD (peripheral artery disease): Status: Chronic (8) Coronary artery disease: Status: Chronic (9) Atrial fibrillation: Status: Chronic Qualifiers: Atrial fibrillation type: longstanding persistent Qualified Code(s): I48.11 - Longstanding persistent atrial fibrillation (10) Acute kidney injury: Status: Acute (11) Chronic diastolic heart failure: Status: Chronic (12) Accelerated hypertension: Status: Acute (13) Bradycardia: Status: Acute (14) Temporary transvenous cardiac pacemaker present: Status: Acute Plan I turned the rate down to 40 on the pacemaker this morning. He did not have any spontaneous ventricular beats. We will leave the rate at 80 today. Hopefully he can be extubated soon. My suspicion is he will need a permanent pacemaker. Attestations Medical Necessity Statement*: Needs continued hospitalization for management of multiple medical problems including bradycardia, atrial fibrillation, renal failure and others. Coding Level of Care Code Established Pt Acute Rand Cementer for Yris Fwruth Patient Type Established History Comprehensive Exam Comprehensive Medical Decision Making High Complexity Diagnoses Congestive heart failure I50.33 Heart failure chronicity: acute on chronic Heart failure type: diastolic Obstructive sleep apnea G47.33 Hyperlipidemia E78.5 Hyperlipidemia type: unspecified Chronic anticoagulation Z79.01 Diabetes mellitus, type II E11.42; Z79.4 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 owner operator truck driver insulin use: with fpc use Diabetes mellitus complication status: with neurologic complications Diabetes mellitus complication detail: with polyneuropathy Nicotine dependence, chewing tobacco, with other nicotine-induced disorders F17.228 PAD (peripheral artery disease) I73.9 Coronary artery disease I25.10 Atrial fibrillation I48.11 Atrial fibrillation type: longstanding persistent Acute kidney injury N17.9 Chronic diastolic heart failure I50.32 Accelerated hypertension I10 Bradycardia R00.1 Temporary transvenous cardiac pacemaker present Z95.0
--- NOTE | 2021-06-27 08:31 | PM.CONSULT ---
Providers/Reason For Consult Consulting Physician/Specialty*: kun sarmiento md/ telenephrology Reason for Consult*: DANITZA Requesting Physician: Dr Pastor Attending Physician: Jone Pastor MD Primary Care Provider: Jessica Bui MD History of Present Illness History of Present Illness Giles Guillaume is a 71 year old male admitted on 06-25-21 w/ severe bradycardia - HR in 20's to 30's. He has underlying CAD, a fib, PAD. On admission he was hyperkalemic and DANITZA. At home pt i on po potassium, losartan, aldactone, and lasix. He was admitted to ICU for bradycardia, htn, DANITZA. His potassium was normalized and pt remained bradycardic. on 06-26-21 he had a temp transvenous pacer. his hr and BP improved. he is making good uop. Renal called as his cr is 1.1- 1.4 mg/dl at baseline. his cr was 2.2 on admission and is now up to 2.7 mg/dl. Review of Systems Narrative: unable to obtain as intubated and sedated Medications/Allergies Home Medications Medication Instructions Recorded Confirmed Last Taken Type apixaban 5 mg tablet (Eliquis) 5 mg PO BID 06/22/19 06/25/21 06/25/21 History losartan 100 mg tablet 100 mg PO QAM 06/22/19 06/25/21 06/25/21 History tamsulosin 0.4 mg capsule 0.4 mg PO BEDTIME 06/22/19 06/25/21 06/24/21 History cholecalciferol (vitamin D3) 50 2,000 unit PO QAM 06/24/19 06/25/21 06/25/21 History mcg (2,000 unit) tablet (Vitamin D3) multivitamin 1 tab PO DAILY 06/24/19 06/25/21 06/25/21 History finasteride 5 mg tablet 5 mg PO DAILY 11/01/19 06/25/21 10/31/19 History rosuvastatin 10 mg tablet 10 mg PO QPM 11/01/19 06/25/21 11/07/19 History furosemide 80 mg tablet (Lasix) 80 mg PO QAM 11/08/19 06/25/21 06/25/21 History potassium chloride 20 mEq 40 meq PO BID #120 tab 06/06/20 06/25/21 06/25/21 Rx tablet,extended release amlodipine 5 mg tablet 5 mg PO DAILY 06/25/21 06/25/21 05/28/21 History imiquimod 5 % topical cream packet See Rx Instructions .ROUTE .COMPLEX 06/25/21 06/25/21 Unknown History (Aldara) insulin glargine 100 unit/mL (3 61 unit SUBCUT BEDTIME 06/25/21 06/25/21 06/24/21 History mL) subcutaneous pen isosorbide mononitrate 120 mg 120 mg PO QAM 06/25/21 06/25/21 06/25/21 History tablet,extended release 24 hr oxycodone 10 mg tablet 5 - 10 mg PO TID PRN 06/25/21 06/25/21 Unknown History pentoxifylline 400 mg 400 mg PO BID 06/25/21 06/25/21 Unknown History tablet,extended release pregabalin 150 mg capsule (Lyrica) 150 mg PO BID 06/25/21 06/25/21 Unknown History semaglutide (Ozempic) 0.5 mg SUBCUT Q7D 06/25/21 06/25/21 06/24/21 History spironolactone 50 mg tablet 50 mg PO DAILY 06/25/21 06/25/21 Unknown History Allergies Allergy/AdvReac Type Severity Reaction Status Date / Time carvedilol AdvReac diarrhea Verified 06/25/21 12:22 hydralazine AdvReac vomiting Verified 06/25/21 12:22 Current Medications Generic Name Dose Route Start Last Admin Trade Name Freq PRN Reason Stop Dose Admin Atorvastatin Calcium 40 mg 06/26/21 18:00 06/26/21 18:47 Atorvastatin 40 Mg Tablet PO 40 mg QPM LC Administration Docusate Sodium 100 mg 06/25/21 19:09 06/26/21 18:41 Docusate Sodium 10 Mg/Ml (5ml) Liq PO Not Given BID LC Folic Acid 1 mg 06/26/21 09:00 06/26/21 14:24 Folic Acid 1 Mg Tablet PO Not Given DAILY [facility] Heparin Sodium (Porcine) 0 unit 06/26/21 18:00 06/27/21 03:33 Heparin 5,000 Unit/Ml Inj 1 Ml IV 2,800 unit PRN PRN Administration Heparin weight-base protocol Protocol Propofol 1,000 mg in 100 mls @ 0 mls/hr 06/26/21 10:00 06/27/21 08:23 Diprivan IV 25 mcg/kg/min .Q0M LC 21.77 mls/hr Administration Protocol Per Protocol Fentanyl 2,500 mcg/ Sodium 250 mls @ 0 mls/hr 06/26/21 10:00 06/26/21 20:30 Chloride IV 50 mcg/hr .Q0M LC 5 mls/hr Titration Protocol Per Protocol Piperacillin Sod/Tazobactam 50 mls @ 12.5 mls/hr 06/26/21 12:00 06/27/21 04:05 Sod 3.375 gm/ Sodium Chloride IV 12.5 mls/hr Q8H LC Administration Heparin Sodium/Sodium Chloride 25,000 unit in 500 mls @ 0 mls/hr 06/26/21 18:00 06/27/21 03:33 Heparin Drip IV 12.4 unit/kg/hr .Q0M LC 36 mls/hr Titration Protocol Per Protocol Insulin Human Lispro 0 unit 06/25/21 21:00 06/26/21 20:03 Insulin Lispro 100 Unit/1 Ml SUBCUT Not Given BEDTIME [facility] Protocol Insulin Human Lispro 0 unit 06/25/21 19:09 06/27/21 07:15 Insulin Lispro 100 Unit/1 Ml SUBCUT Not Given TIDWM [facility] Protocol Multivitamins Therapeutic 1 tab 06/26/21 09:00 06/26/21 14:25 Multivitamin Therapeutic Tablet PO Not Given DAILY [facility] Thiamine Mononitrate 100 mg 06/26/21 09:00 06/26/21 14:25 Thiamine 100 Mg Tablet PO Not Given DAILY LC PFSH Acute PFSH: Medical History Atrial fibrillation Chronic, history of bradycardia with beta blockers, on eliquis BPH NOS w/o ur obs/LUTS Chronic kidney disease Congestive heart failure Coronary artery disease Evaluated in [place], patient reports 55% narrowing unknown vessel no stent or angioplasty done CVA (cerebral vascular accident) residual right weakness Diabetes mellitus, type II Diabetic neuropathy associated with type 2 diabetes mellitus Hyperlipidemia Hypertension Lumbar foraminal stenosis Nicotine dependence, chewing tobacco, with other nicotine-induced disorders Obesity BMI-42 kg/m2 Obstructive sleep apnea not on treatment by choice Osteoarthritis PAD (peripheral artery disease) PVD (peripheral vascular disease) Renal calculus, right Rhabdomyolysis Squamous cell carcinoma in situ Surgical History No pertinent past surgical history Family History Mother , 87 Diabetes CAD (coronary artery disease) Hypertension Father , 60 No problems noted. Social History Smoking and tobacco status: current every day smoker pipe Pipes smoked per week: 1 Years smoked pipe: 54 and smokeless tobacco Smokeless tobacco user: chewing tobacco Alcohol intake: former Year of sobriety/quit date alcohol: 25 y Former alcohol use details: heavy use, 5 DWI's Substance/Drug Use: former Household members: none Housing: House Marital status: service: Yes Current occupational status: retired Vitals/I&O/Wt Last Vital Signs Temp 99.5 F 06/27/21 04:15 Pulse 79 06/27/21 06:00 Resp 16 06/27/21 06:05 BP 147/65 06/27/21 06:00 Pulse Ox 93 06/27/21 06:05 06/26/21 06/27/21 06/27/21 22:59 06:59 14:59 Intake Total 196.207 / 341.460 454.51 / 795.970 100 / 100 Output Total 1300 / 1700 600 / 2300 Balance -1103.793 / -1358.540 -145.49 / -1504.030 100 / 100 Weight last 48 hrs Weight 142.145 kg Weight 145.15 kg Weight 146.057 kg Physical Exam Narrative: obese man in bed sedated and intubated vent vc/ac fio2 40%, TV 450, RR 16, peep 8 heent- nc/at, eomi neck supple lungs clear b/l heart -paced rhythm + s1, s2 abd soft, nt, nd, + bs ext 1+ edema, poor pulses rt foot w/ an ischemic toe neuro- sedated Urinary Catheter Management: Santo: Cath Placed During This Visit: yes Reason for Continuing Indwelling Catheter: Accurate Measurement of Urinary Output in Critically Ill Patients Urinary Catheter Date of Insertion: 06/25/21 Urinary Catheter Time of Insertion: 17:28 Data : 06/27/21 02:07 06/27/21 02:07 A&P Assessment and plan (1) Acute kidney injury: 71 yr old man obesity, dm, htn, cad, and PVD. pt admitted on 06/25 w/ bradycardia, htn, hyperkalemia, and DANITZA 1. s/p temp Pacemeaker 2. DANITZA- already on admission can be from bradycardia vs embolic disease/ cholesterol emboli, low CO- less likely as hypertensive. - However, based on hx- he might have had hypotension prior to admission causing atn -BP worsened here, can be from normalizing his BP -ua normal - atypical for GN or cholesterol emboli -check ur lytes -normal renal us- no hydronephrosis start ivf -c 3. some degree of CKD- likely stage 3 a- from age, dm, htn, obesity seen and examine dw/ RN- telehealth visit time spent 55 min Status: Acute Plan see above Consult Attestations Medical Necessity Statement: danitza, bradycardia, vdrf Time Spent in Patient Care: Greater than 35 minutes (>than 50% of time spent in counselling and/or direct pt care on unit). 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
[2021-06-27 08:48] LABS: Partial Thromboplastin Time 41.3 SECONDS (23.9-36.7)
--- NOTE | 2021-06-27 09:00 | PC.NURSE ---
Heparin gtt stopped at [address] Pastor. Patient has planned procedure for permanent pacemaker.
[2021-06-27] MEDS: folic acid 1 mg Tablet PO (09:19)
[2021-06-27] MEDS: multivitamin therapeutic Tablet 1 TAB PO (09:19)
[2021-06-27] MEDS: aspirin 81 mg EC Tablet PO (09:19)
[2021-06-27] MEDS: pantoprazole 40 mg SDV IVP (09:20)
[2021-06-27] MEDS: thiamine 100 mg Tablet PO (09:20)
[2021-06-27] MEDS: sodium chloride 0.9% 1,000 ML 100 ML IV (09:21)
--- NOTE | 2021-06-27 09:42 | P.CONIM_ITS ---
Providers/Reason For Consult Consulting Physician/Specialty*: Dr. Riggins/cardiothoracic surgery Reason for Consult*: Pacemaker implantation Requesting Physician: Dr. Fernandez Attending Physician: Jone Pastor MD Primary Care Provider: Jessica Bui MD History of Present Illness History of Present Illness Giles Guillaume is a 71 year old male currently in ICU bed 8, intubated, and sedated. He currently has a transvenous pacemaker in position to the right groin due to severe highly symptomatic bradycardia. This was placed yesterday by Dr. Fernandez: Acute consultation. Mr. Guillaume presented to the emergency department with dizziness and extreme fatigue. He also describes near syncope. Medications/Allergies Home Medications Medication Instructions Recorded Confirmed Last Taken Type apixaban 5 mg tablet (Eliquis) 5 mg PO BID 06/22/19 06/25/21 06/25/21 History losartan 100 mg tablet 100 mg PO QAM 06/22/19 06/25/21 06/25/21 History tamsulosin 0.4 mg capsule 0.4 mg PO BEDTIME 06/22/19 06/25/21 06/24/21 History cholecalciferol (vitamin D3) 50 2,000 unit PO QAM 06/24/19 06/25/21 06/25/21 History mcg (2,000 unit) tablet (Vitamin D3) multivitamin 1 tab PO DAILY 06/24/19 06/25/21 06/25/21 History finasteride 5 mg tablet 5 mg PO DAILY 11/01/19 06/25/21 10/31/19 History rosuvastatin 10 mg tablet 10 mg PO QPM 11/01/19 06/25/21 11/07/19 History furosemide 80 mg tablet (Lasix) 80 mg PO QAM 11/08/19 06/25/21 06/25/21 History potassium chloride 20 mEq 40 meq PO BID #120 tab 06/06/20 06/25/21 06/25/21 Rx tablet,extended release amlodipine 5 mg tablet 5 mg PO DAILY 06/25/21 06/25/21 05/28/21 History imiquimod 5 % topical cream packet See Rx Instructions .ROUTE .COMPLEX 06/25/21 06/25/21 Unknown History (Aldara) insulin glargine 100 unit/mL (3 61 unit SUBCUT BEDTIME 03/06/25/21 06/24/21 History mL) subcutaneous pen isosorbide mononitrate 120 mg 120 mg PO QAM 06/25/21 06/25/21 06/25/21 History tablet,extended release 24 hr oxycodone 10 mg tablet 5 - 10 mg PO TID PRN 06/25/21 06/25/21 Unknown History pentoxifylline 400 mg 400 mg PO BID 06/25/21 06/25/21 Unknown History tablet,extended release pregabalin 150 mg capsule (Lyrica) 150 mg PO BID 06/25/21 06/25/21 Unknown History semaglutide (Ozempic) 0.5 mg SUBCUT Q7D 06/25/21 06/25/21 06/24/21 History spironolactone 50 mg tablet 50 mg PO DAILY 06/25/21 06/25/21 Unknown History Allergies Allergy/AdvReac Type Severity Reaction Status Date / Time carvedilol AdvReac diarrhea Verified 06/25/21 12:22 hydralazine AdvReac vomiting Verified 06/25/21 12:22 Current Medications Generic Name Dose Route Start Last Admin Trade Name Freq PRN Reason Stop Dose Admin Aspirin 81 mg 06/27/21 09:00 06/27/21 09:19 Aspirin 81 Mg Ec Tablet PO 81 mg DAILY LC Administration Atorvastatin Calcium 40 mg 06/26/21 18:00 06/26/21 18:47 Atorvastatin 40 Mg Tablet PO 40 mg QPM LC Administration Docusate Sodium 100 mg 06/25/21 19:09 06/26/21 18:41 Docusate Sodium 10 Mg/Ml (5ml) Liq PO Not Given BID LC Folic Acid 1 mg 06/26/21 09:00 06/27/21 09:19 Folic Acid 1 Mg Tablet PO 1 mg DAILY LC Administration Propofol 1,000 mg in 100 mls @ 0 mls/hr 06/26/21 10:00 06/27/21 08:23 Diprivan IV 25 mcg/kg/min .Q0M CL 21.77 mls/hr Administration Protocol Per Protocol Fentanyl 2,500 mcg/ Sodium 250 mls @ 0 mls/hr 06/26/21 10:00 06/26/21 20:30 Chloride IV 50 mcg/hr .Q0M LC 5 mls/hr Titration Protocol Per Protocol Piperacillin Sod/Tazobactam 50 mls @ 12.5 mls/hr 06/26/21 12:00 06/27/21 09:14 Sod 3.375 gm/ Sodium Chloride IV Infused Q8H LC Infusion Sodium Chloride 1,000 mls @ 100 mls/hr 06/27/21 09:00 06/27/21 09:21 Sodium Chloride 0.9% IV 100 mls/hr .Q10H LC Administration Insulin Human Lispro 0 unit 06/25/21 21:00 06/26/21 20:03 Insulin Lispro 100 Unit/1 Ml SUBCUT Not Given BEDTIME LC Protocol Insulin Human Lispro 0 unit 06/25/21 19:09 06/27/21 07:15 Insulin Lispro 100 Unit/1 Ml SUBCUT Not Given TIDWM [facility] Protocol Multivitamins Therapeutic 1 tab 06/26/21 09:00 06/27/21 09:19 Multivitamin Therapeutic Tablet PO 1 tab DAILY LC Administration Pantoprazole Sodium 40 mg 06/27/21 09:00 06/27/21 09:20 Pantoprazole 40 Mg Sdv IVP 40 mg DAILY LC Administration Thiamine Mononitrate 100 mg 06/26/21 09:00 06/27/21 09:20 Thiamine 100 Mg Tablet PO 100 mg DAILY LC Administration PFSH Acute PFSH: Medical History Atrial fibrillation Chronic, history of bradycardia with beta blockers, on eliquis BPH NOS w/o ur obs/LUTS Chronic kidney disease Congestive heart failure Coronary artery disease Evaluated in [place], patient reports 55% narrowing unknown vessel no stent or angioplasty done CVA (cerebral vascular accident) residual right weakness Diabetes mellitus, type II Diabetic neuropathy associated with type 2 diabetes mellitus Hyperlipidemia Hypertension Lumbar foraminal stenosis Nicotine dependence, chewing tobacco, with other nicotine-induced disorders Obesity BMI-42 kg/m2 Obstructive sleep apnea not on treatment by choice Osteoarthritis PAD (peripheral artery disease) PVD (peripheral vascular disease) Renal calculus, right Rhabdomyolysis Squamous cell carcinoma in situ Surgical History No pertinent past surgical history Family History Mother , 87 Diabetes CAD (coronary artery disease) Hypertension Father , 60 No problems noted. Social History Smoking and tobacco status: current every day smoker pipe Pipes smoked per week: 1 Years smoked pipe: 54 and smokeless tobacco Smokeless tobacco user: chewing tobacco Alcohol intake: former Year of sobriety/quit date alcohol: 25 y Former alcohol use details: heavy use, 5 DWI's Substance/Drug Use: former Household members: none Housing: House Marital status: service: Yes Current occupational status: retired Vitals/I&O/Wt Last Vital Signs Temp 99.3 F 06/27/21 09:00 Pulse 79 06/27/21 09:00 Resp 16 06/27/21 09:00 BP 149/63 06/27/21 09:00 Pulse Ox 94 06/27/21 09:00 06/26/21 06/27/21 06/27/21 22:59 06:59 14:59 Intake Total 196.207 / 341.460 454.51 / 795.970 345 / 345 Output Total 1300 / 1700 600 / 2300 Balance -1103.793 / -1358.540 -145.49 / -1504.030 345 / 345 Weight last 48 hrs Weight 313 lb 6 oz Weight 320 lb Weight 322 lb Physical Exam Urinary Catheter Management: Santo: Cath Placed During This Visit: yes Reason for Continuing Indwelling Catheter: Accurate Measurement of Urinary Output in Critically Ill Patients Urinary Catheter Date of Insertion: 06/25/21 Urinary Catheter Time of Insertion: 17:28 Data : 06/27/21 02:07 06/27/21 02:07 Coding Level of Care Code 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
[2021-06-27 10:04] LABS: Potassium, Radom Urine 41 mmol/L; Urine Random Chloride 53 mmol/L; Urine Random Sodium 60 mmol/L
--- NOTE | 2021-06-27 10:16 | PC.NURSE ---
No contact Nurse called HR to try to find a contact for patient, no contact. [facility], no contact listed.
[2021-06-27 10:40] LABS: Complement C3 125 mg/dL (90-180)
[2021-06-27 10:50] LABS: Hepatitis C Virus Antibody Non-Reactive (Nonreactive)
[2021-06-27 11:01] LABS: Creatine Phosphokinase 519 U/L (39-308)
--- NOTE | 2021-06-27 11:07 | PC.NURSE ---
Contact Medical records from 2019 state patient doesn't have any contacts and doesn't want any contacts. Doctor notified.
[2021-06-27] MEDS: chlorhexidine gluconate 4% Btl 118 mL 1 APPLIC TOPICAL (11:15)
[2021-06-27 12:31] LABS: Glucose Point of Care 126 mg/dL (70-110)
[2021-06-27] MEDS: propofol 1,000 MG/100 ML INJ 26.13 MG IV ×3 (12:37→20:54)
--- NOTE | 2021-06-27 12:45 | PC.NURSE ---
Necklaces removed 1 silver colored necklace with small silver colored crossed removed. 1 gold colored necklace removed. Both placed in bag, labeled with patient info, and placed with belongings.
--- NOTE | 2021-06-27 16:02 | P.ANESASSM_ITS ---
Pre-Anesthetic Assessment Height/Weight: Height 1.85 m Weight 142.145 kg Temp Pulse Resp BP Pulse Ox 99.3 F 79 16 167/61 97 06/27/21 15:30 06/27/21 15:30 06/27/21 15:30 06/27/21 15:30 06/27/21 15:30 Operation Date: 06/26/21 11:00 Proposed Procedures p Temporary Pacemaker Placement(Not Applicable) - Dennys Fernandez MD Operation Date: 06/27/21 15:35 Proposed Procedures p Pacemaker Insertion(Not Applicable) - Janes Riggins MD Familial anesthetic complications: None Was Beta Greta taken within 24 hours: N/A Was Clonidine taken within 24 hours: N/A Social Alcohol and Tobacco Exam Intubated and sedated in ICU Airway Comments: Comments: ETT Pulmonary Intubated b/c of delirium and combative CV/HEM Atrial Fibrillation, Arrythmia, Congestive Heart Failure, Hypertension and Peripheral Vascular Disease transvenous pacer Chronic Renal Insufficiency Metabolic Diabetes Mellitus, Hyperlipidemia and Morbid Obesity Anesthetic Plan ASA status: 4 Anesthesia: General Risk of > 500 ml blood loss (7ml/kg in children): No Medications/Allergies Home Medications Medication Instructions Recorded Confirmed Last Taken Type apixaban 5 mg tablet (Eliquis) 5 mg PO BID 06/22/19 06/25/21 06/25/21 History losartan 100 mg tablet 100 mg PO QAM 06/22/19 06/25/21 06/25/21 History tamsulosin 0.4 mg capsule 0.4 mg PO BEDTIME 06/22/19 06/25/21 06/24/21 History cholecalciferol (vitamin D3) 50 2,000 unit PO QAM 06/24/19 06/25/21 06/25/21 History mcg (2,000 unit) tablet (Vitamin D3) multivitamin 1 tab PO DAILY 06/24/19 06/25/21 06/25/21 History finasteride 5 mg tablet 5 mg PO DAILY 11/01/19 06/25/21 10/31/19 History rosuvastatin 10 mg tablet 10 mg PO QPM 11/01/19 06/25/21 11/07/19 History furosemide 80 mg tablet (Lasix) 80 mg PO QAM 11/08/19 06/25/21 06/25/21 History potassium chloride 20 mEq 40 meq PO BID #120 tab 06/06/20 06/25/21 06/25/21 Rx tablet,extended release amlodipine 5 mg tablet 5 mg PO DAILY 06/25/21 06/25/21 05/28/21 History imiquimod 5 % topical cream packet See Rx Instructions .ROUTE .COMPLEX 06/25/21 06/25/21 Unknown History (Aldara) insulin glargine 100 unit/mL (3 61 unit SUBCUT BEDTIME 06/25/21 06/25/21 06/24/21 History mL) subcutaneous pen isosorbide mononitrate 120 mg 120 mg PO QAM 06/25/21 06/25/21 06/25/21 History tablet,extended release 24 hr oxycodone 10 mg tablet 5 - 10 mg PO TID PRN 06/25/21 06/25/21 Unknown History pentoxifylline 400 mg 400 mg PO BID 06/25/21 06/25/21 Unknown History tablet,extended release pregabalin 150 mg capsule (Lyrica) 150 mg PO BID 06/25/21 06/25/21 Unknown History semaglutide (Ozempic) 0.5 mg SUBCUT Q7D 06/25/21 06/25/21 06/24/21 History spironolactone 50 mg tablet 50 mg PO DAILY 06/25/21 06/25/21 Unknown History Allergies Allergy/AdvReac Type Severity Reaction Status Date / Time carvedilol AdvReac diarrhea Verified 06/25/21 12:22 hydralazine AdvReac vomiting Verified 06/25/21 12:22 Current Medications Generic Name Dose Route Start Last Admin Trade Name Pravinq PRN Reason Stop Dose Admin Aspirin 81 mg 06/27/21 09:00 06/27/21 09:19 Aspirin 81 Mg Ec Tablet PO 81 mg DAILY LC Administration Atorvastatin Calcium 40 mg 06/26/21 18:00 06/26/21 18:47 Atorvastatin 40 Mg Tablet PO 40 mg QPM LC Administration Chlorhexidine Gluconate 1 applic 06/27/21 18:00 06/27/21 11:15 Chlorhexidine Gluconate 4% Btl 118 Ml TOPICAL 1 applic BID LC Administration Docusate Sodium 100 mg 06/25/21 19:09 06/27/21 11:07 Docusate Sodium 10 Mg/Ml (5ml) Liq PO Not Given BID [facility] Folic Acid 1 mg 06/26/21 09:00 06/27/21 09:19 Folic Acid 1 Mg Tablet PO 1 mg DAILY LC Administration Propofol 1,000 mg in 100 mls @ 0 mls/hr 06/26/21 10:00 06/27/21 12:37 Diprivan IV 30 mcg/kg/min .Q0M LC 26.13 mls/hr Administration Protocol Per Protocol Fentanyl 2,500 mcg/ Sodium 250 mls @ 0 mls/hr 06/26/21 10:00 06/27/21 12:06 Chloride IV 75 mcg/hr .Q0M LC 7.5 mls/hr Titration Protocol Per Protocol Piperacillin Sod/Tazobactam 50 mls @ 12.5 mls/hr 06/26/21 12:00 06/27/21 12:37 Sod 3.375 gm/ Sodium Chloride IV 12.5 mls/hr Q8H LC Administration Sodium Chloride 1,000 mls @ 100 mls/hr 06/27/21 09:00 06/27/21 09:21 Sodium Chloride 0.9% IV 100 mls/hr .Q10H LC Administration Insulin Human Lispro 0 unit 06/25/21 21:00 06/26/21 20:03 Insulin Lispro 100 Unit/1 Ml SUBCUT Not Given BEDTIME LC Protocol Insulin Human Lispro 0 unit 06/25/21 19:09 06/27/21 12:32 Insulin Lispro 100 Unit/1 Ml SUBCUT Not Given TIDWM LC Protocol Multivitamins Therapeutic 1 tab 06/26/21 09:00 06/27/21 09:19 Multivitamin Therapeutic Tablet PO 1 tab DAILY LC Administration Pantoprazole Sodium 40 mg 06/27/21 09:00 06/27/21 09:20 Pantoprazole 40 Mg Sdv IVP 40 mg DAILY LC Administration Thiamine Mononitrate 100 mg 06/26/21 09:00 06/27/21 09:20 Thiamine 100 Mg Tablet PO 100 mg DAILY LC Administration PFSH Anesthesia Medical History Atrial fibrillation Chronic, history of bradycardia with beta blockers, on eliquis BPH NOS w/o ur obs/LUTS Chronic kidney disease Congestive heart failure Coronary artery disease Evaluated in [place], patient reports 55% narrowing unknown vessel no stent or angioplasty done CVA (cerebral vascular accident) residual right weakness Diabetes mellitus, type II Diabetic neuropathy associated with type 2 diabetes mellitus Hyperlipidemia Hypertension Lumbar foraminal stenosis Nicotine dependence, chewing tobacco, with other nicotine-induced disorders Obesity BMI-42 kg/m2 Obstructive sleep apnea not on treatment by choice Osteoarthritis PAD (peripheral artery disease) PVD (peripheral vascular disease) Renal calculus, right Rhabdomyolysis Squamous cell carcinoma in situ Surgical History No pertinent past surgical history Family History Mother , 87 Diabetes CAD (coronary artery disease) Hypertension Father , 60 No problems noted. Social History Smoking and tobacco status: current every day smoker pipe Pipes smoked per week: 1 Years smoked pipe: 54 and smokeless tobacco Smokeless tobacco user: chewing tobacco Alcohol intake: former Year of sobriety/quit date alcohol: 25 y Former alcohol use details: heavy use, 5 DWI's Substance/Drug Use: former Household members: none Housing: House Marital status: service: Yes Current occupational status: retired Data Anesthesia : 06/27/21 02:07 06/27/21 02:07 Short CBC 06/26/21 06/27/21 Range/Units 03:35 02:07 WBC 19.3 H 12.8 H (4.0-10.0) 10^3/uL Hgb 13.6 12.7 (11.7-16.6) g/dL Hct 42.1 38.9 L (42.0-52.0) % MCV 89.8 89.4 (80-94) fl Plt Count 204 152 (130-400) 10^3/cmm Neut % (Auto) 76.4 80.2 % Neut # (Auto) 14.73 H 10.24 H (1.8-7.7) 10^3/uL BMP 06/25/21 06/26/21 06/26/21 20:37 03:35 15:15 Sodium 142 144 141 Potassium 5.1 4.7 4.7 Chloride 108 H 106 107 Carbon Dioxide 23 25 20 L BUN 35 H 37 H 42 H Creatinine 2.0 H 2.1 H 2.3 H Glucose 131 H 114 171 H Calcium 10.0 9.9 9.4 06/27/21 02:07 Sodium 143 Potassium 3.9 Chloride 104 Carbon Dioxide 27 BUN 43 H Creatinine 2.7 H Glucose 112 Calcium 9.1 Cardiac Enzymes 06/25/21 06/25/21 06/26/21 Range/Units 13:20 20:37 03:35 Creatine Kinase 675 H* 244 (39-308) U/L Troponin T Hi Sens 6Hr 70.78 H (0-15) ng/L Troponin T Hi Sens 6Hr Delta 4.78 (0-12) ng/L NT-Pro-B Natriuret Pep 4493 H (0-125) pg/mL 06/26/21 06/27/21 06/27/21 Range/Units 15:15 02:07 10:00 Creatine Kinase 433 H* 519 H* (39-308) U/L Troponin T Hi Sens 6Hr (0-15) ng/L Troponin T Hi Sens 6Hr Delta (0-12) ng/L NT-Pro-B Natriuret Pep 6641 H 5419 H (0-125) pg/mL Liver Function 06/26/21 06/26/21 06/27/21 Range/Units 03:35 15:15 02:07 Total Bilirubin 0.7 0.8 0.8 (0.15-1.2) mg/dL AST 24 24 22 (0-40) U/L ALT 23 20 17 (0-41) U/L Alkaline Phosphatase 80 68 61 (40-130) IU/L Albumin 4.1 3.7 3.5 (3.5-5.2) g/dL Coags 06/25/21 06/26/21 06/26/21 17:59 03:35 03:35 ESR 7 PT 15.80 H INR 1.22 H APTT 34.5 C-Reactive Protein 12.2 H 06/26/21 06/27/21 06/27/21 15:15 02:07 02:07 ESR PT 16.10 H INR 1.25 H APTT 38.4 H C-Reactive Protein 194.9 H 06/27/21 06/27/21 02:07 08:10 ESR PT INR APTT 46.3 H 41.3 H C-Reactive Protein ABG 03/30/22 03/31/22 13:12 04:50 Specimen Type Arterial Arterial Sample Site [place] Not specified ABG pH 7.36 7.43 ABG pCO2 40.5 32.6 L ABG pO2 110.0 H 75.9 L ABG HCO3 22.7 21.8 L ABG O2 Saturation 98.7 ABG Base Excess -2.6 L -1.6 A-a O2 Gradient 51.5 H O2 Delivery Device Vent Vent FiO2 80.0 40.0 Tidal Volume 0.45 0.45 PEEP 8.0 8.0 Cardiac Studies: Echocardiogram 06/27/21 Echocardiogram Ultrasound 06/24/19 Sestamibi Stress Test (Cardiology) 10/25/20
--- NOTE | 2021-06-27 16:44 | PM.PN ---
Subjective Subjective: Patient was seen this morning, intubated, sedated, mechanical ventilation, afebrile, normotensive, paced, 40%, urine output, 2700 cc Vitals/I&O/Wt Last Vital Signs Temp 99.3 F 06/27/21 15:30 Pulse 79 06/27/21 15:30 Resp 16 06/27/21 15:30 BP 167/61 06/27/21 15:30 Pulse Ox 97 06/27/21 15:30 06/27/21 06/27/21 06/27/21 06:59 14:59 22:59 Intake Total 454.51 / 795.970 517.413 / 517.413 100 / 617.413 Output Total 600 / 2300 800 / 800 Balance -145.49 / -1504.030 517.413 / 517.413 -700 / -182.587 Weight last 48 hrs Weight 142.145 kg Weight 145.15 kg Physical Exam Const: COMMON NORMALS: no acute distress OTHER: Intubated, sedated on medical ventilation Paced Resp: COMMON NORMALS: normal respiratory effort, No retractions, No use of accessory muscles and clear to auscultation bilaterally AUSCULTATION: clear to auscultation bilaterally Cardio: COMMON NORMALS: regular rate, regular rhythm, S1 normal heart sound present and S2 normal heart sound present RATE: regular rate RHYTHM: regular rhythm HEART SOUNDS: S1 normal heart sound present and S2 normal heart sound present GI: COMMON NORMALS: Normal to inspection, nondistended, normoactive bowel sounds present, Soft to palpation and non-tender PALPATION: Yes Soft to palpation Extremity: COMMON NORMALS: no pedal edema NARRATIVE EXTREMITY EXAM: DP PT pulses palpable bilaterally Does have slight black discoloration, left foot, second digit Urinary Catheter Management: Santo: Cath Placed During This Visit: yes Reason for Continuing Indwelling Catheter: Accurate Measurement of Urinary Output in Critically Ill Patients Urinary Catheter Date of Insertion: 06/25/21 Urinary Catheter Time of Insertion: 17:28 Data : 06/27/21 02:07 06/27/21 02:07 A&P Assessment and plan (1) Aspiration pneumonia: Status: Acute (2) Acute kidney injury: Status: Acute (3) Bradycardia: Symptomatic with heart rate generally staying 20s to 40s. Not on beta-blockade due to known history of bradycardia associated with this. Only other notable medications are isosorbide and amlodipine. In talking with him he does have untreated sleep apnea, prostatic hypertrophy and increasing urinary symptoms. Presently however has significant hyperkalemia with initial level at 7.2. TSH was checked and was normal. Status: Acute (4) Hyperkalemia: Has been on potassium supplementation, also on spironolactone, losartan and has acute kidney injury compared to baseline labs, EKG with peaked T waves initially. Labs from the [facility] on June 17 showed potassium of 5.0. Status: Acute (5) Acute kidney injury: On chronic kidney disease stage 2-3, BUN and creatinine at [facility] on 06/17/2021 was 23/1.79. In February 2021 BUN and creatinine were 12/1.1. He is chronically on ARB, Aldactone, Lasix. Also with history of prostatic hypertrophy with worsening lower urinary tract symptoms. Has history of ureteral stone in the past also. Reports noncompliance with his water pills, increasing overall girth. Status: Acute (6) Accelerated hypertension: Chronically on amlodipine, Lasix, isosorbide, losartan and Aldactone, has not had his medications today Status: Acute (7) Congestive heart failure: Acute on chronic preserved ejection fraction last echocardiogram Status: Chronic Qualifiers: Heart failure chronicity: acute on chronic Heart failure type: diastolic Qualified Code(s): I50.33 - Acute on chronic diastolic (congestive) heart failure (8) Abnormal nuclear stress test: Per Dr. Segura clinical notes although upon review it looks like abnormalities could also be consistent with attenuation defects. This is from stress testing done in September of last year. Status: Acute (9) Coronary artery disease: Has not required previous intervention. Records indicate last arteriogram showed 55% narrowing and unclear vessel. Describes anginal type symptoms lately although this could be related to demand ischemia from impact of bradycardia Status: Chronic (10) Atrial fibrillation: Presently with slow ventricular response, chronic Status: Chronic Qualifiers: Atrial fibrillation type: longstanding persistent Qualified Code(s): I48.11 - Longstanding persistent atrial fibrillation (11) Chronic anticoagulation: Chronically on Eliquis Status: Chronic (12) Diabetes mellitus, type II: Hemoglobin A1c at the [facility] June 17, 2021 was 8.0 Chronically on insulin and semaglutide Status: Chronic Qualifiers: Diabetes mellitus continuous churn buttermaker insulin use: with continuous churn buttermaker use Diabetes mellitus complication status: with neurologic complications Diabetes mellitus complication detail: with polyneuropathy Qualified Code(s): E11.42 - Type 2 diabetes mellitus with diabetic polyneuropathy; Z79.4 - penitentiary (current) use of insulin (13) BPH NOS w/o ur obs/LUTS: Chronically on finasteride and Flomax, describes progressive lower urinary symptoms suggestive of potential bladder outlet obstruction contributing to acute kidney injury Status: Chronic (14) Calculus of proximal ureter: Has been present for some time, nonobstructing or at least in the same location last time it was evaluated, patient does not describe classic symptoms of kidney stones but at risk of having an obstructive process Status: Acute (15) Hyperlipidemia: Lipid panel checked June 17, 2021 at the [facility] showed total cholesterol of 206, triglycerides of 189, HDL of 43.9 and calculated LDL of 124.3 with an HDL to total cholesterol ratio of 21.3% Chronically on statin Status: Chronic Qualifiers: Hyperlipidemia type: unspecified Qualified Code(s): E78.5 - Hyperlipidemia, unspecified (16) Obstructive sleep apnea: Does not wear CPAP by choice Status: Chronic (17) BMI 40.0-44.9, adult: Status: Acute (18) Nicotine dependence, chewing tobacco, with other nicotine-induced disorders: Status: Chronic (19) Altered mental status: Status: Acute Plan Acute symptomatic bradycardia -Requiring emergency intubation, atropine, external pacing, now with temporary transvenous pacemaker placement -Plans on permanent pacemaker placement -Dr. Fernandez on consult Full code Protonix for GI prophylaxis Heparin for DVT prophylaxis Altered mental status, likely secondary to hypoxia, bradycardia, pulmonary edema, aspiration pneumonia Acute respiratory failure, hypoxia, altered mental status -Concerns for aspiration, started on Zosyn -Likely secondary to sinus bradycardia -Status post 1 dose Lasix, does not look fluid overloaded -Continue intubation, sedation, mechanical ventilation will analyze tidal volume, minimize FiO2 -Spontaneous breathing trial -Plan on extubation next 24 hours Hyperkalemia, resolved, continue to monitor History of atrial fibrillation, on Eliquis, currently hold Eliquis, on heparin drip Type II diabetes mellitus, low-dose sliding scale History of CVA, monitor History of CAD, will continue to monitor, cardiac echocardiogram Hypertension, hold home medications Peripheral arterial disease, bilateral extremities are much more pink, flushed, DP PT pulses palpable bilateral lower extremities are bluish discolored, DP PT pulses barely palpable, likely secondary to bradycardia, however cannot rule out peripheral arterial disease will do ultrasound waveforms, Doppler pulses Attestations Medical Necessity Statement*: Patient requires hospitalization for her sinus bradycardia, acute respiratory failure, aspiration Critical Care Time: 35 Coding Level of Care Code 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[employer] Diagnoses Aspiration pneumonia J69.0 Acute kidney injury N17.9 Bradycardia R00.1 Hyperkalemia E87.5 Acute kidney injury N17.9 Accelerated hypertension I10 Congestive heart failure I50.33 Heart failure chronicity: acute on chronic Heart failure type: diastolic Abnormal nuclear stress test R94.39 Coronary artery disease I25.10 Atrial fibrillation I48.11 Atrial fibrillation type: longstanding persistent Chronic anticoagulation Z79.01 Diabetes mellitus, type II E11.42; Z79.4 Diabetes mellitus continuous churn buttermaker insulin use: with detention use Diabetes mellitus complication status: with neurologic complications Diabetes mellitus complication detail: with polyneuropathy BPH NOS w/o ur obs/LUTS N40.0 Calculus of proximal ureter N20.1 Hyperlipidemia E78.5 Hyperlipidemia type: unspecified Obstructive sleep apnea G47.33 BMI 40.0-44.9, adult Z68.41 Nicotine dependence, chewing tobacco, with other nicotine-induced disorders F17.228 Altered mental status R41.82
--- NOTE | 2021-06-27 17:02 | PC.NURSE ---
1658 patient to OR for pacemaker via bed accompanied by OR staff and respiratory. Patient sedated on vent.
[2021-06-27] MEDS: ceFAZolin 1,000 mg SDV 1000 MG IRRIGATION (17:34)
[2021-06-27] MEDS: lidocaine 2% INJ 20 mL INJECTION (17:35)
--- NOTE | 2021-06-27 18:02 | SC_ITS ---
WS: [id number] C-ARM RADIOGRAPHS CHEST; 2 IMAGES HISTORY: OR PICS COMPARISON: 06/28/2021 Intraoperative imaging during pacer placement. Quality of the imaging submitted is limited. Pacer wir es noted over the heart. SC/C-arm FL for Pacemaker IMPRESSION: Intraoperative imaging during cardiac pacer placement.
--- NOTE | 2021-06-27 18:12 | PM.OP ---
Operative Report Date of procedure: June 27, 2021 Pre-op diagnosis: Heart block Post-op diagnosis: same Procedure done: Maker implantation Implants: [employer]tronic pacing generator Right ventricular lead Pathology: none sent Surgeon: Janes Riggins Estimated blood loss (mL): 10 Complications: None: Post procedure chest x-ray pending Brief History: Mr. Guillaume is a 71-year-old gentleman who presented with fatigue and near syncope and dyspnea. He was found to be hyperkalemic with renal insufficiency. He is also had profound bradycardia with a heart rate of 30 consistent with complete heart block. With improvement of his hyperkalemia, unfortunately, his heart rate did not improve. He also had agitation and confusion. He required elective intubation and subsequent temporary pacing wire placement through the right femoral vein by Dr. Fernandez. He has chronic atrial fibrillation by history. Permanent pacemaker implantation was recommended. As there was no immediate family or POA, two-physician consent was obtained for this procedure as a lifesaving maneuver. Procedure: Procedure: Mr. Guillaume remains intubated and sedated and was taken to the OR suite and placed in the supine position over a shoulder roll. . He has entire chest was sterilely prepped and draped. 1% lidocaine was infiltrated in the left subclavicular region. While in Trendelenburg position, utilizing modified seldinger technique, a guidewire was placed in the left subclavian vein. This was confirmed in position by fluoroscopy. Next, after infiltration with lidocaine, a subcutaneous pocket was created beginning from the exit point of the guidewire and extending laterally and inferiorly. Cautery was utilized to create the pocket just above the pectoralis musculature. Hemostasis was confirmed. An antibiotic-soaked sponge was placed in the wound. A dilator and tear-away sheath was placed over the guidewire and advanced under fluoroscopy. Guidewire and dilator were removed. Next using a combination of curved and straight stylettes, the right ventricular lead was placed in position by fluoroscopy. The distal screw was extended. Interrogation was then performed confirming appropriate parameters. The tear-away sheath was then removed and the ventricular lead was sewn to the floor of the subcutaneous pocket. Pacing generator was brought into the field, and after confirmation of hemostasis in the subcutaneous pocket, the lead was connected to the generator with appropriate capture. The entire system was interrogated by fluoroscopy, as the temporary right femoral transvenous pacing lead was removed. Lead and generator were secured in the pocket. Sponge and needle count was correct. The wound was then closed in 2 layers of 3-0 Vicryl suture. Skin was reapproximated in a subcuticular manner with 4-0 Monocryl suture. A pressure dressing was applied. The left arm was placed in a sling. He maintained equal breath sounds bilaterally. He was then transferred back to the ICU, where chest x-ray is currently pending. There are no immediate family available either on site or by phone for postoperative consultation. Following are the specifics of this system: Right ventricular lead is 58 cm and model 5076. Serial number [id number] Ventricular lead had sensing of 17.8 mV with an impedance of 684 ohms. Threshold was 0.5 V Plexisoft generator: Model # [id number] Serial #[id number]
--- NOTE | 2021-06-27 18:14 | SUR.OPER ---
181 report given to zoraida le rn. nurse stated understanding and had no questions
--- NOTE | 2021-06-27 18:47 | XRR_ITS ---
PROCEDURE INFORMATION: Exam: XR Chest Exam date and time: 06/27/2021 6:57 PM Age: 71 years old Clinical indication: Device placement; Prior surgery; Surgery date: Post-operative (0-2 days); Surgery type: Post pacemaker surg today; Additional info: Post permanent pacemaker/patient still intubated TECHNIQUE: Imaging protocol: XR of the chest. Views: 1 view. COMPARISON: CR XR chest 1V portable [id number] 06/27/2021 4:12 AM FINDINGS: Tubes, catheters and devices: Left chest ICD is present. Endotracheal tube position is unremarkable 5 cm above blair. Lungs: Lower lobe opacities consistent with atelectasis. Pleural spaces: Moderate bilateral pleural effusions greater on left than right. Negative for pneumothorax. Heart/Mediastinum: Moderate severity cardiomegaly. Bones/joints: Unremarkable. XR/XR chest 1V portable [id number] IMPRESSION: Fluid overload changes in the chest.
[2021-06-27] MEDS: atorvastatin 40 mg Tablet PO (19:21)
[2021-06-27] MEDS: docusate sodium 10 mg/mL (5ml) Liq 100 MG PO (19:26)
[2021-06-27 19:31] LABS: Glucose Point of Care 114 mg/dL (70-110)
--- NOTE | 2021-06-27 20:33 | PC.NURSE ---
No SCDs available on unit
--- NOTE | 2021-06-27 20:37 | PC.NURSE ---
Pt returned to room from OR. Report not received by this nurse, so unable to document I&O. Oxygen is 30% FI02.
[2021-06-27 21:06] LABS: Glucose Point of Care 127 mg/dL (70-110)
--- NOTE | 2021-06-27 21:50 | P.CONIM_ITS ---
Providers/Reason For Consult Consulting Physician/Specialty*: PETER Kraus MD/cardiology Reason for Consult*: Patient with atrial fibrillation and bradycardia Requesting Physician: Dr. Pastor Attending Physician: Jone Pastor MD Primary Care Provider: Jessica Bui MD History of Present Illness History of Present Illness Giles Guillaume is a 71 year old male Review of Systems Narrative: CONSTITUTIONAL: No fever or chills. [] EYES: No blurring of vision or other visual disturbances lately. [] ENT: No hoarseness of voice, auditory disturbances or sore throat. [] CARDIOVASCULAR: As mentioned above. [] RESPIRATORY: No significant cough. [] GASTROINTESTINAL: No hematemesis or melena. [] GENITOURINARY: No dysuria or hematuria. [] INTEGUMENTARY: No skin rashes or history of skin cancer. [] NEURO: No transient ischemic attacks or amaurosis. [] PSYCHIATRIC: No history of psychosis or major depression. [] HEMATOLOGIC: No bleeding disorders or significant anemia. [] ENDOCRINE: No history of polyuria or polydipsia. [] MUSCULOSKELETAL: No recent joint pain or swelling. [] ALLERGY/IMMUNOLOGY: As mentioned above. [] Medications/Allergies Home Medications Medication Instructions Recorded Confirmed Last Taken Type apixaban 5 mg tablet (Eliquis) 5 mg PO BID 06/22/19 06/25/21 06/25/21 History losartan 100 mg tablet 100 mg PO QAM 06/22/19 06/25/21 06/25/21 History tamsulosin 0.4 mg capsule 0.4 mg PO BEDTIME 06/22/19 06/25/21 06/24/21 History cholecalciferol (vitamin D3) 50 2,000 unit PO QAM 06/24/19 06/25/21 06/25/21 History mcg (2,000 unit) tablet (Vitamin D3) multivitamin 1 tab PO DAILY 06/24/19 06/25/21 06/25/21 History finasteride 5 mg tablet 5 mg PO DAILY 11/01/19 06/25/21 10/31/19 History rosuvastatin 10 mg tablet 10 mg PO QPM 11/01/19 06/25/21 11/07/19 History furosemide 80 mg tablet (Lasix) 80 mg PO QAM 11/08/19 06/25/21 06/25/21 History potassium chloride 20 mEq 40 meq PO BID #120 tab 06/06/20 06/25/21 06/25/21 Rx tablet,extended release amlodipine 5 mg tablet 5 mg PO DAILY 06/25/21 06/25/21 05/28/21 History imiquimod 5 % topical cream packet See Rx Instructions .ROUTE .COMPLEX 06/25/21 06/25/21 Unknown History (Aldara) insulin glargine 100 unit/mL (3 61 unit SUBCUT BEDTIME 06/25/21 06/25/21 06/24/21 History mL) subcutaneous pen isosorbide mononitrate 120 mg 120 mg PO QAM 06/25/21 06/25/21 06/25/21 History tablet,extended release 24 hr oxycodone 10 mg tablet 5 - 10 mg PO TID PRN 06/25/21 06/25/21 Unknown History pentoxifylline 400 mg 400 mg PO BID 06/25/21 06/25/21 Unknown History tablet,extended release pregabalin 150 mg capsule (Lyrica) 150 mg PO BID 06/25/21 06/25/21 Unknown History semaglutide (Ozempic) 0.5 mg SUBCUT Q7D 06/25/21 06/25/21 06/24/21 History spironolactone 50 mg tablet 50 mg PO DAILY 06/25/21 06/25/21 Unknown History Allergies Allergy/AdvReac Type Severity Reaction Status Date / Time carvedilol AdvReac diarrhea Verified 06/25/21 12:22 hydralazine AdvReac vomiting Verified 06/25/21 12:22 Current Medications Generic Name Dose Route Start Last Admin Trade Name Shaun PRN Reason Stop Dose Admin Aspirin 81 mg 06/27/21 09:00 06/27/21 09:19 Aspirin 81 Mg Ec Tablet PO 81 mg DAILY LC Administration Atorvastatin Calcium 40 mg 06/26/21 18:00 06/27/21 19:21 Atorvastatin 40 Mg Tablet PO 40 mg QPM LC Administration Chlorhexidine Gluconate 1 applic 06/27/21 18:00 06/27/21 11:15 Chlorhexidine Gluconate 4% Btl 118 Ml TOPICAL 1 applic BID LC Administration Docusate Sodium 100 mg 06/25/21 19:09 06/27/21 19:26 Docusate Sodium 10 Mg/Ml (5ml) Liq PO 100 mg BID LC Administration Folic Acid 1 mg 06/26/21 09:00 06/27/21 09:19 Folic Acid 1 Mg Tablet PO 1 mg DAILY LC Administration Propofol 1,000 mg in 100 mls @ 0 mls/hr 06/26/21 10:00 06/27/21 20:54 Diprivan IV 30 mcg/kg/min .Q0M LC 26.13 mls/hr Administration Protocol Per Protocol Fentanyl 2,500 mcg/ Sodium 250 mls @ 0 mls/hr 06/26/21 10:00 06/27/21 12:06 Chloride IV 75 mcg/hr .Q0M LC 7.5 mls/hr Titration Protocol Per Protocol Piperacillin Sod/Tazobactam 50 mls @ 12.5 mls/hr 06/26/21 12:00 06/27/21 20:15 Sod 3.375 gm/ Sodium Chloride IV 12.5 mls/hr Q8H LC Administration Sodium Chloride 1,000 mls @ 100 mls/hr 06/27/21 09:00 06/27/21 20:15 Sodium Chloride 0.9% IV Not Given .Q10H LC Insulin Human Lispro 0 unit 06/25/21 21:00 06/26/21 20:03 Insulin Lispro 100 Unit/1 Ml SUBCUT Not Given BEDTIME [facility] Protocol Insulin Human Lispro 0 unit 06/25/21 19:09 06/27/21 19:19 Insulin Lispro 100 Unit/1 Ml SUBCUT Not Given TIDWM [facility] Protocol Multivitamins Therapeutic 1 tab 06/26/21 09:00 06/27/21 09:19 Multivitamin Therapeutic Tablet PO 1 tab DAILY LC Administration Pantoprazole Sodium 40 mg 06/27/21 09:00 06/27/21 09:20 Pantoprazole 40 Mg Sdv IVP 40 mg DAILY LC Administration Thiamine Mononitrate 100 mg 06/26/21 09:00 06/27/21 09:20 Thiamine 100 Mg Tablet PO 100 mg DAILY LC Administration PFSH Acute PFSH: Medical History Atrial fibrillation Chronic, history of bradycardia with beta blockers, on eliquis BPH NOS w/o ur obs/LUTS Chronic kidney disease Congestive heart failure Coronary artery disease Evaluated in [place], patient reports 55% narrowing unknown vessel no stent or angioplasty done CVA (cerebral vascular accident) residual right weakness Diabetes mellitus, type II Diabetic neuropathy associated with type 2 diabetes mellitus Hyperlipidemia Hypertension Lumbar foraminal stenosis Nicotine dependence, chewing tobacco, with other nicotine-induced disorders Obesity BMI-42 kg/m2 Obstructive sleep apnea not on treatment by choice Osteoarthritis PAD (peripheral artery disease) PVD (peripheral vascular disease) Renal calculus, right Rhabdomyolysis Squamous cell carcinoma in situ Surgical History No pertinent past surgical history Family History Mother , 87 Diabetes CAD (coronary artery disease) Hypertension Father , 60 No problems noted. Social History Smoking and tobacco status: current every day smoker pipe Pipes smoked per week: 1 Years smoked pipe: 54 and smokeless tobacco Smokeless tobacco user: chewing tobacco Alcohol intake: former Year of sobriety/quit date alcohol: 26 y Former alcohol use details: heavy use, 5 DWI's Substance/Drug Use: former Household members: none Housing: House Marital status: service: Yes Current occupational status: retired Vitals/I&O/Wt Last Vital Signs Temp 99.3 F 06/27/21 20:00 Pulse 60 06/27/21 21:00 Resp 16 06/27/21 21:00 BP 129/50 06/27/21 21:11 Pulse Ox 96 06/27/21 21:00 06/27/21 06/27/21 06/27/21 06:59 14:59 22:59 Intake Total 454.51 / 795.970 517.413 / 517.413 250 / 767.413 Output Total 600 / 2300 800 / 800 Balance -145.49 / -1504.030 517.413 / 517.413 -550 / -32.587 Weight last 48 hrs Weight 313 lb 6 oz Weight 320 lb Physical Exam Urinary Catheter Management: Santo: Cath Placed During This Visit: yes Reason for Continuing Indwelling Catheter: Accurate Measurement of Urinary Output in Critically Ill Patients Urinary Catheter Date of Insertion: 06/25/21 Urinary Catheter Time of Insertion: 17:28 Data : 06/27/21 02:07 06/27/21 02:07 Other Labs: Laboratory Last Values WBC 12.8 10^3/uL (4.0-10.0) H 06/27/21 02:07 RBC 4.35 10^6/uL (4.1-5.3) 06/27/21 02:07 Hgb 12.7 g/dL (11.7-16.6) 06/27/21 02:07 Hct 38.9 % (42.0-52.0) L 06/27/21 02:07 MCV 89.4 fl (80-94) 06/27/21 02:07 MCH 29.2 pg (28.0-34.0) 06/27/21 02:07 MCHC 32.6 g/dL (30.0-36.0) 06/27/21 02:07 RDW 13.2 % (12.1-15.1) 06/27/21 02:07 Plt Count 152 10^3/cmm (130-400) 06/27/21 02:07 MPV 10.6 fL (7.4-10.4) H 06/27/21 02:07 Neut % (Auto) 80.2 % 06/27/21 02:07 Lymph % (Auto) 13.0 % 06/27/21 02:07 Banner % (Auto) 6.0 % 06/27/21 02:07 Eos % (Auto) 0.3 % 06/27/21 02:07 Baso % (Auto) 0.2 % 06/27/21 02:07 Neut # (Auto) 10.24 10^3/uL (1.8-7.7) H 06/27/21 02:07 Lymph # (Auto) 1.7 10^3/uL (0.8-4.8) 06/27/21 02:07 Banner # (Auto) 0.8 10^3/uL (0.2-0.9) 06/27/21 02:07 Eos # (Auto) 0.0 10^3/uL (0.0-0.8) 06/27/21 02:07 Baso # (Auto) 0.0 10^3/uL (0.0-0.1) 06/27/21 02:07 Nucleated RBC % (auto) 0 % 06/27/21 02:07 Nucleated RBCs # 0.0 /100WBC 06/27/21 02:07 ESR 7 mm/hr (0-10) 06/26/21 03:35 PT 16.10 SECONDS (12.1-14.9) H 06/27/21 02:07 INR 1.25 (0.8-1.2) H 06/27/21 02:07 APTT 41.3 SECONDS (23.9-36.7) H 06/27/21 08:10 Specimen Type Arterial 06/27/21 04:50 Sample Site Not specified 06/27/21 04:50 ABG pH 7.43 (7.35-7.45) 06/27/21 04:50 ABG pCO2 32.6 mmHg (35-45) L 06/27/21 04:50 ABG pO2 75.9 mmHg (80.0-100.0) L 06/27/21 04:50 ABG HCO3 21.8 mmol/L (22-26) L 06/27/21 04:50 ABG O2 Saturation 98.7 06/26/21 13:12 ABG Base Excess -1.6 mmol/L (-2.0-2.0) 06/27/21 04:50 Judd Test N/a 06/27/21 04:50 A-a O2 Gradient 51.5 mmHg (5-10) H 06/26/21 13:12 Hematocrit 43.0 % (42-52) 06/27/21 04:50 Hgb O2 Saturation 96.5 % (95-100) 06/26/21 13:12 Carboxyhemoglobin 1.2 %THgb (0.4-20.1) 06/26/21 13:12 Methemoglobin 1.0 % (0.4-1.5) 06/26/21 13:12 Total Hemoglobin 11.9 g/dL (14-18) L 06/26/21 13:12 Sodium 147.0 mmol/L (131-143) H 06/26/21 13:12 Potassium 4.2 mmol/L (3.5-5.0) 06/26/21 13:12 Glucose 165.0 mg/dL (70-115) H 06/26/21 13:12 Ionized Calcium 1.1 mmol/L (1.1-1.4) 06/26/21 13:12 O2 Delivery Device Vent 06/27/21 04:50 FiO2 40.0 % 06/27/21 04:50 Tidal Volume 0.45 06/27/21 04:50 PEEP 8.0 cmH20 06/27/21 04:50 Social Welfare Clerk ID Robin 06/27/21 04:50 Sodium 143 mmol/L (136-145) 06/27/21 02:07 Potassium 3.9 mmol/L (3.5-5.1) 06/27/21 02:07 Chloride 104 mmol/L (98-107) 06/27/21 02:07 Carbon Dioxide 27 mmol/L (22-29) 06/27/21 02:07 Anion Gap 15.9 (5-19) 06/27/21 02:07 BUN 43 mg/dL (8-23) H 06/27/21 02:07 Creatinine 2.7 mg/dL (0.7-1.2) H 06/27/21 02:07 GFR Calculation Not Reportable 06/27/21 02:07 Glucose 112 mg/dL (65-115) 06/27/21 02:07 POC Glucose 127 mg/dL (70-110) H 06/27/21 20:52 Calculated Osmolality 308 mOsm/kg (285-295) H 06/27/21 02:07 Uric Acid 13.0 mg/dL (3.4-7.0) H 06/27/21 10:00 Calcium 9.1 mg/dL (8.5-10.5) 06/27/21 02:07 Phosphorus 4.9 mg/dL (2.5-4.5) H 06/27/21 02:07 Magnesium 2.0 mg/dL (1.7-2.3) 06/27/21 02:07 Total Bilirubin 0.8 mg/dL (0.15-1.2) 06/27/21 02:07 AST 22 U/L (0-40) 06/27/21 02:07 ALT 17 U/L (0-41) 06/27/21 02:07 Alkaline Phosphatase 61 IU/L (40-130) 06/27/21 02:07 Creatine Kinase 519 U/L (39-308) H* 06/27/21 10:00 Troponin T Baseline 66 ng/L (0-15) H 06/25/21 13:20 Troponin T 120 Minute 71.09 ng/L (0-15) H 06/25/21 14:20 Delta Troponin T 5.09 ABS# (0-10) 06/25/21 14:20 Troponin T Hi Sens 6Hr 70.78 ng/L (0-15) H 06/25/21 20:37 Troponin T Hi Sens 6Hr Delta 4.78 ng/L (0-12) 06/25/21 20:37 C-Reactive Protein 194.9 mg/L (0.0-4.9) H 06/27/21 02:07 NT-Pro-B Natriuret Pep 5419 pg/mL (0-125) H 06/27/21 02:07 Total Protein 6.0 g/dL (6.6-8.7) L 06/27/21 02:07 Albumin 3.5 g/dL (3.5-5.2) 06/27/21 02:07 Globulin 2.5 g/dL (1.3-4.6) 06/27/21 02:07 Procalcitonin 1.31 ng/mL (0-0.5) H 06/27/21 02:07 TSH 2.20 uIU/mL (0.27-4.20) 06/25/21 13:20 Urine Color Yellow (Yellow) 06/25/21 14:36 Urine Appearance Clear (CLEAR) 06/25/21 14:36 Urine pH 5 (5-7) 06/25/21 14:36 Ur Specific [place] 1.015 (1.005-1.030) 06/25/21 14:36 Urine Protein Neg (Negative) 06/25/21 14:36 Urine Glucose (UA) Norm (Normal) 06/25/21 14:36 Urine Ketones Negative (Negative) 06/25/21 14:36 Urine Blood Neg (Negative) 06/25/21 14:36 Urine Nitrate Negative (Negative) 06/25/21 14:36 Urine Bilirubin Neg (Negative) 06/25/21 14:36 Urine Urobilinogen Neg mg/dL (Negative) 06/25/21 14:36 Ur Leukocyte Esterase Negative (Negative) 06/25/21 14:36 Ur Random Sodium 60 mmol/L 06/27/21 09:30 Ur Random Potassium 41 mmol/L 06/27/21 09:30 Ur Random Chloride 53 mmol/L 06/27/21 09:30 Complement C3 125 mg/dL (90-180) 06/27/21 10:00 Complement C4 23 mg/dL (10-40) 06/27/21 10:00 Hepatitis C Antibody Non-reactive (Nonreactive) 06/27/21 10:00 Coding Level of Care Code Acute Shower Enclosure Installer for Yris Tee
[2021-06-27 22:59] LABS: Partial Thromboplastin Time 39.4 SECONDS (23.9-36.7)
[2021-06-28] VITALS (91 sets, daily range): BP systolic 110–220; BP diastolic 45–120; PULSE 60–62; RESP 9–30; TEMP 37.2–39; O2SAT 84–96
--- NOTE | 2021-06-28 00:10 | PC.NURSE ---
Sheath Removal Right femoral sheath pulled at 2353. Pressure held for 15 minutes. No external bleeding or hematoma noted after pressure relieved. 4x4 sponges placed over sight with transparent dressing.
--- NOTE | 2021-06-28 00:18 | USCV_ITS ---
LE Arterial Duplex BILATERAL Giles Guillaume Age: 71 Gender: M : 1950 Exam Date: 06/28/2021 00:23 Ordering Phys: Jone Pastor MD Technologist: [place] [facility] [place]: blue toe Risk Factors: Unknown Previous Vascular Surgery: Unknown RIGHT LEFT BP: 128.0 / BP: 123.0/ 0 0 Waveform Velocity (cm/s) Velocity (cm/s) Waveform Iliac Prox 130.1 Triphasic Iliac Mid 115.7 Triphasic Iliac Distal 130.1 Biphasic Biphasic 94.8 BUTTON TUFTER 103.9 Biphasic Triphasic 82.7 SFA Prox 152.5 Biphasic Triphasic 66.2 SFA Mid 179.9 Biphasic Monophasic 52.0 SFA Dist 75.6 Biphasic Monophasic POP Biphasic 48.9 50.4 PC TECH 34.8 Biphasic Monophasic 35.7 DPA 55.2 Biphasic 0.9 TIKI 0.9 FINDINGS Resting TIKI 0.9 bilaterally. Mild to moderate diffuse plaques in the iliac and femoral arteries bilaterally. Normal Doppler flow signals in the right posterior tibial artery. CONCLUSIONS Abnormal resting ABIs bilaterally ,suggestive of mild peripheral arterial disease. Mild to moderate diffuse plaques in the iliac and femoral arteries bilaterally. Possibly occluded right posterior tibial artery. Compared to the study from 10/25/2020, the left SFA stenosis appears to be less severe. Exact comparison is difficult since there was no TIKI at that time. Dr Refugio Kraus MD [facility] (Electronically Signed) Final Date: 28 June 2021 09:07 S
[2021-06-28] MEDS: propofol 1,000 MG/100 ML INJ 30.48 MG IV (01:10)
--- NOTE | 2021-06-28 01:21 | PC.NURSE ---
Pt getting arterial u/s of lower extremities performed. Pt becoming restless and moving arms and legs, making test difficult. Pt has facial grimacing, but does not open eyes or follow commands.
--- NOTE | 2021-06-28 01:38 | PC.NURSE ---
Addendum entered by Genesis Luke RN 06/28/21 03:30: Should be Juan from [employer]. Original Note: Oh from [employer] has called on pacemaker interrogation. Lead measurements WNL, battery initiating, no R wave measurement which can be normal when 100% paced.
[2021-06-28] MEDS: propofol 1,000 MG/100 ML INJ 26.13 MG IV (04:10)
[2021-06-28] MEDS: sodium chloride 0.9% 1,000 ML 100 ML IV (04:11)
[2021-06-28] MEDS: piperacillin-tazobactam 3.375 GM in sodium chloride 0.9% (plus) 50 ML IV ×3 (04:11→19:29)
[2021-06-28 05:00] LABS: ABG PCO2 38.3 mmHg (35-45); ABG PH Result 7.45 (7.35-7.45); Arterial Blood Gas Hematocrit 16.9 % (42-52); Base Excess ABG 2.7 mmol/L (-2.0-2.0); Blood Gas Sample Type Arterial; HCO3 ABG 26.9 mmol/L (22-26)
[2021-06-28 05:01] LABS: Blood Gas Operator Identificat JB; Blood Gas Sample Site Not specified; Oxygen Device VENT
--- NOTE | 2021-06-28 05:15 | PC.NURSE ---
Pt weighed twice, ensuring all extra items and christine are off of bed.
[2021-06-28 05:40] LABS: Basophils % 0.4 %; Eosinophils # 0.1 10^3/uL (0.0-0.8); Eosinophils % 0.8 %; Hematocrit 37.3 % (42.0-52.0); Lymphocytes # 1.7 10^3/uL (0.8-4.8); Lymphocytes % 17.6 %; Mean Corpuscular HGB Conc 32.2 g/dL (30.0-36.0); Mean Corpuscular Hemoglobin 29.3 pg (28.0-34.0); Mean Corpuscular Volume 91.2 fl (80-94); Mean Platelet Volume 11.3 fL (7.4-10.4); Monocytes # 0.6 10^3/uL (0.2-0.9); Monocytes % 5.9 %; Neutrophils # 7.28 10^3/uL (1.8-7.7); Neutrophils % 74.8 %; Nucleated Red Blood Cells % 0 %; Platelet Count 142 10^3/cmm (130-400); Red Blood Count 4.09 10^6/uL (4.1-5.3); Red Cell Distribution Width 13.2 % (12.1-15.1); White Blood Count 9.7 10^3/uL (4.0-10.0)
[2021-06-28 06:17] LABS: Alanine Aminotransferase 13 U/L (0-41); Albumin Level 3.1 g/dL (3.5-5.2); Alkaline Phosphatase 61 IU/L (40-130); Anion Gap 17.6 (5-19); Aspartate Amino Transferase 22 U/L (0-40); Blood Urea Nitrogen 41 mg/dL (8-23); C Reactive Protein 244.4 mg/L (0.0-4.9); Calcium 8.6 mg/dL (8.5-10.5); Carbon Dioxide 24 mmol/L (22-29); Chloride 106 mmol/L (98-107); Globulin 2.7 g/dL (1.3-4.6); Glucose 127 mg/dL (65-115); Osmolality Calculated 310 mOsm/kg (285-295); Phosphorus 3.7 mg/dL (2.5-4.5); Potassium 3.6 mmol/L (3.5-5.1); Sodium 144 mmol/L (136-145); Total Bilirubin 0.7 mg/dL (0.15-1.2); Total Protein 5.8 g/dL (6.6-8.7)
[2021-06-28 06:22] LABS: INR 1.17 (0.8-1.2)
--- NOTE | 2021-06-28 06:28 | PM.PN ---
Subjective Subjective: Currently remains intubated and sedated. Rhythm is 60 and paced. Nurses report no concerns overnight. Pacemaker system interrogation was completed this morning and no abnormalities were noted. Surgical dressing in left subclavicular region is clean and dry. Chest x-ray reveals cardiomegaly and some consolidation in the bases. Pacemaker generator and lead appear to be in stable position. Vitals/I&O/Wt Last Vital Signs Temp 99.7 F H 06/28/21 03:40 Pulse 60 06/28/21 06:00 Resp 18 06/28/21 06:00 BP 139/51 06/28/21 06:00 Pulse Ox 93 06/28/21 05:46 06/27/21 06/27/21 06/28/21 14:59 22:59 06:59 Intake Total 517.413 / 020.083 5872 / 1767.413 368.998 / 2136.411 Output Total 1250 / 1250 375 / 1625 Balance 517.413 / 517.413 0 / 517.413 -6.002 / 511.411 Weight last 48 hrs Weight 329 lb 9.6 oz Weight 313 lb 6 oz Physical Exam Chest: OTHER: Left chest wall operative dressing remains in place, intact and dry. No evidence for subcutaneous fluid collection or drainage. Urinary Catheter Management: Santo: Cath Placed During This Visit: yes Reason for Continuing Indwelling Catheter: Accurate Measurement of Urinary Output in Critically Ill Patients Urinary Catheter Date of Insertion: 06/25/21 Urinary Catheter Time of Insertion: 17:28 Data : 06/28/21 04:35 06/28/21 04:35 A&P Assessment and plan (1) Status post cardiac pacemaker procedure: POD #1 status post pacemaker implantation. Plan: Ventilator weaning is planned today for hopeful extubation. Will need to be mindful to try to limit excessive reaching with the left upper extremity given the new pacemaker implantation. Status: Acute Attestations Medical Necessity Statement*: Status post pacemaker implantation for heart block Coding Level of Care Code Acute Director Of Search Engine Optimization for Chg Fwd Diagnoses Status post cardiac pacemaker procedure Z95.0
[2021-06-28 06:29] LABS: 25 Hydroxy Vitamin D 31 ng/mL (30-100); NT Pro B Type Natriuretic Pept 2199 pg/mL (0-125); Procalcitonin 0.88 ng/mL (0-0.5)
[2021-06-28 06:44] LABS: Creatine Phosphokinase 510 U/L (39-308)
--- NOTE | 2021-06-28 07:00 | XR_ITS ---
WS: [id number] Exam: XR chest 1V portable [id number] Date/Time of Exam: 06/28/2021 5:11 AM Reason For Exam: sob Comparison 06/27/2021. There is consolidating infiltrate and/or atelectasis in the left lower lobe. There are diffuse infilt rates in the mid and lower right lung. The heart is enlarged. No pneumothorax. ET tube in good positi on ending about 7 cm above the blair. An enteric tube enters the stomach but the tip is not visible. An ICD superimposes the left chest. XR/XR chest 1V portable [id number] IMPRESSION: 1. Consolidation and atelectasis of the left lower lobe. Diffuse infiltrate in the mid and lower right lung. 2. Cardiomegaly unchanged. 3. ET tube and enteric tube both in satisfactory position.
--- NOTE | 2021-06-28 07:12 | P.PN_ITS ---
Subjective Subjective: Giles remains intubated and sedated. We were able to get a permanent pacemaker placed yesterday. He has a single lead device in place. The backup rate is set at 60. His heart rate is 60. The procedure was uncomplicated. He remains on intravenous fentanyl and propofol as well as IV antibiotics. He is beginning to awaken slightly. No other complications or problems overnight. Currently he remains off of all anticoagulants. Medications: Reviewed: Yes Vitals/I&O/Wt Last Vital Signs Temp 99.7 F H 06/28/21 03:40 Pulse 60 06/28/21 07:00 Resp 20 H 06/28/21 07:00 BP 142/52 06/28/21 07:03 Pulse Ox 96 06/28/21 07:00 06/27/21 06/28/21 06/28/21 22:59 06:59 14:59 Intake Total 1250 / 1767.413 368.998 / 2136.411 Output Total 1250 / 1250 375 / 1625 Balance 0 / 517.413 -6.002 / 511.411 Weight last 48 hrs Weight 329 lb 9.6 oz Weight 313 lb 6 oz Physical Exam Narrative: GENERAL: In general he remains intubated and sedated HEENT: Exam within normal limits. NECK: Supple without jugular vein distention. The carotid upstroke is normal wi thout bruits. BACK: Exam normal. LUNGS: Clear. HEART: Regular rate and rhythm. ABDOMEN: Benign without organomegaly or tenderness. EXTREMITIES: Mild lower extremity edema with woody induration. Some areas of black gangrene at the tip of a few toes NEUROLOGIC: Exam not done SKIN: Unremarkable. Urinary Catheter Management: Santo: Cath Placed During This Visit: yes Reason for Continuing Indwelling Catheter: Accurate Measurement of Urinary Output in Critically Ill Patients Urinary Catheter Date of Insertion: 06/25/21 Urinary Catheter Time of Insertion: 17:28 Data : 06/28/21 04:35 06/28/21 04:35 A&P Assessment and plan (1) Status post cardiac pacemaker procedure: Status: Acute (2) Acute kidney injury: Status: Acute (3) Altered mental status: Status: Acute (4) Aspiration pneumonia: Status: Acute (5) Congestive heart failure: Status: Chronic Qualifiers: Heart failure chronicity: acute on chronic Heart failure type: diastolic Qualified Code(s): I50.33 - Acute on chronic diastolic (congestive) heart failure (6) Obstructive sleep apnea: Status: Chronic (7) Hyperlipidemia: Status: Chronic Qualifiers: Hyperlipidemia type: unspecified Qualified Code(s): E78.5 - Hyperlipidemia, unspecified (8) Diabetes mellitus, type II: Status: Chronic Qualifiers: 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 customer service insulin use: with intermodal customer service use Diabetes mellitus complication status: with neurologic complications Diabetes mellitus complication detail: with polyneuropathy Qualified Code(s): E11.42 - Type 2 diabetes mellitus with diabetic polyneuropathy; 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 (9) Nicotine dependence, chewing tobacco, with other nicotine-induced disorders: Status: Chronic (10) Coronary artery disease: Status: Chronic (11) Atrial fibrillation: Status: Chronic Qualifiers: Atrial fibrillation type: longstanding persistent Qualified Code(s): I48.11 - Longstanding persistent atrial fibrillation (12) Accelerated hypertension: Status: Acute Attestations Medical Necessity Statement*: Remains intubated and sedated requires ICU care Coding Level of Care Code Established Pt Acute Passenger Tire Builder for Chg Fwd Patient Type Established History Comprehensive Exam Comprehensive Medical Decision Making High Complexity Diagnoses Status post cardiac pacemaker procedure Z95.0 Acute kidney injury N17.9 Altered mental status R41.82 Aspiration pneumonia J69.0 Congestive heart failure I50.33 Heart failure chronicity: acute on chronic Heart failure type: diastolic Obstructive sleep apnea G47.33 Hyperlipidemia E78.5 Hyperlipidemia type: unspecified Diabetes mellitus, type II E11.42; Z79.4 Diabetes mellitus assisted insulin use: with assisted use Diabetes mellitus complication status: with neurologic complications Diabetes mellitus complication detail: with polyneuropathy Nicotine dependence, chewing tobacco, with other nicotine-induced disorders F17.228 Coronary artery disease I25.10 Atrial fibrillation I48.11 Atrial fibrillation type: longstanding persistent Accelerated hypertension I10 Time Spent (min) 30
[2021-06-28 08:23] LABS: Glucose Point of Care 134 mg/dL (70-110)
[2021-06-28] MEDS: folic acid 1 mg Tablet PO (08:46)
[2021-06-28] MEDS: multivitamin therapeutic Tablet 1 TAB PO (08:46)
[2021-06-28] MEDS: FUROsemide 10 mg/mL SDV 4mL 40 MG IVP (08:46)
[2021-06-28] MEDS: propofol 1,000 MG/100 ML INJ 21.77 MG IV (08:46)
[2021-06-28] MEDS: pantoprazole 40 mg SDV IVP (08:46)
[2021-06-28] MEDS: aspirin 81 mg EC Tablet PO (08:46)
[2021-06-28] MEDS: thiamine 100 mg Tablet PO (08:46)
[2021-06-28] MEDS: chlorhexidine gluconate 4% Btl 118 mL 1 APPLIC TOPICAL (08:47)
[2021-06-28] MEDS: docusate sodium 10 mg/mL (5ml) Liq 100 MG PO (08:55)
--- NOTE | 2021-06-28 09:53 | PC.NURSE ---
sedation turned off for sedation vacation, patient started breathing 30 times a minute bp got to [address] Pastor gave v.o. for Ativan push q2 hrs prn and precedex drip
--- NOTE | 2021-06-28 09:58 | PC.NURSE ---
Dr. Gonzalez with nephrology did bedside telehealth, HCP to put in order for PRN hydralizine for hypertension
[2021-06-28] MEDS: dexmedeTOMIDine 0.9 % NaCL 400 MCG/100 ML PREMIX IV (10:12)
--- NOTE | 2021-06-28 11:02 | P.PN_ITS ---
Subjective Subjective: Mr. Guillaume remains critically sick in the intensive care unit. Remains intubated and mechanically ventilated. Blood pressure noted to be markedly elevated, 160 systolic on average. Good urine output 1625 mL noted. Weaning trials ongoing. Pulse is being paced. Status post PPM. Vitals/I&O/Wt Last Vital Signs Temp 99.7 F H 06/28/21 03:40 Pulse 60 06/28/21 10:00 Resp 30 H 06/28/21 10:10 BP 154/89 06/28/21 10:00 Pulse Ox 94 06/28/21 10:10 06/27/21 06/28/21 06/28/21 22:59 06:59 14:59 Intake Total 1250 / 1767.413 368.998 / 2136.411 58.192 / 58.192 Output Total 1250 / 1250 375 / 1625 Balance 0 / 517.413 -6.002 / 511.411 58.192 / 58.192 Weight last 48 hrs Weight 149.504 kg Weight 142.145 kg Physical Exam Narrative: Constitutional: sedated and vetned HEENT: Wet mucosa, no jvp, non icteric Lungs: Bilaterally clear without discernible wheeze, rales in all lung zones CVS: S1 S2, no murmurs Abdo: Soft, BS ok Ext 4: Minimal edema, peripheral perfusion with no cyanosis Neurological: Grossly non-focal Urinary Catheter Management: Santo: Cath Placed During This Visit: yes Reason for Continuing Indwelling Catheter: Accurate Measurement of Urinary Output in Critically Ill Patients Urinary Catheter Date of Insertion: 06/25/21 Urinary Catheter Time of Insertion: 17:28 Data : 06/28/21 04:35 06/28/21 04:35 A&P Assessment and plan (1) Acute kidney injury: 1. Acute kidney injury Likely bradycardic cardiorenal syndrome Renal function now recovering nicely. We will DC IV fluid Monitor strict I's and O's No indication for renal replacement therapy Avoid usual nephrotoxic agents Dose medication for GFR less than 30. 2. Hemodynamics Status post PPM, hypertensive, will give hydralazine intravenously as needed 3. Chemistry Well-balanced 4. Vent dependent respiratory failure Management per the ICU team, weaning as tolerated over the next day or so. Thank you for consultation Hal Worrell MD Nephrology [phone] Patient seen and examined via telemedicine, with the assistance of the bedside RN > 25 min spent in evaluation and mgmt of patient Status: Acute Attestations Medical Necessity Statement*: DANITZA Coding Level of Care Code Acute Metal Drilling Machine Operator for Yris Tee Diagnoses Acute kidney injury N17.9
[2021-06-28] MEDS: hyDRALAzine 20 mg/mL INJ 1 mL 10 MG IVP (11:39)
--- NOTE | 2021-06-28 11:52 | PC.NURSE ---
Patient self extubated, placed on 2L NC O2 sat 94 at this time, Dr. Pastor came to bedside no N.O.
--- NOTE | 2021-06-28 11:54 | PC.CHAP ---
Pastoral Care Encounter/Spiritual Assessment Type of Contact [] Declined chopper gun operator visit [] Patient/Family/Request visit [] Outpatient visit [] Follow-up visit [] Physician referral [] Code/Alert [x] Routine visit [] Staff referral [] Actively dying [] Patient sleeping [] Family support [] [] Out of room [] Palliative care [] [] Receiving care in room [] Pre-surgical visit [] Trauma [] Long length of stay [x] ICU visit [x] Other: vent Relational/Emotional Strength [] Patient feels connected with others/family/visitors/staff [] Distress [] Loneliness/isolation [] Abandonment Spirituality of Patient [] Person of Christina [] Attends Restoration of their Christina [] Believes in Prayer [] Reads Bible or Jewish materials [] There are Spiritual issues to be addressed Activity Leader Interventions [x] Prayer [] Active listening [] Non-anxious presence [] Spiritual/emotional support [] Crisis/trauma care [] Spiritual counseling [] Bereavement support [] Provided bereavement packet [] Provided Bible/devotional materials [] Provided toy/stuffed animal, coloring book to patient or family member [] Provided Communion [] Anointing/Robert [] Salvation [x] Completed spiritual assessment [] Other: Impact on Illness or Injury [] Angry [] Fearful [] Anxious [] Often cries [] Exhaustion [] Unable to work [] Unable to attend jain [] Unable to walk/stand [] Unable to read [] Unable to drive [] Unable to eat/drink [] Unable to sleep [] Unable to be with family [] Patient intubated [] Other: Summary Time spent with patient
[2021-06-28 12:05] LABS: Glucose Point of Care 184 mg/dL (70-110)
[2021-06-28] MEDS: insulin lispro 100 unit/1 mL SUBCUT ×3 (13:01→21:24)
[2021-06-28] MEDS: labetalol 5 mg/mL SDV 20mL 10 MG IVP (13:05)
--- NOTE | 2021-06-28 13:37 | PC.NURSE ---
BP 220/111 after PRN Labetalol, Dr. Pastor gave v.o. for Nitro drip
[2021-06-28] MEDS: nitroglycerin drip 50 MG/250 ML PREMIX IV (13:44)
--- NOTE | 2021-06-28 14:56 | P.PN_ITS ---
Subjective Subjective: Patient was seen this morning, he was on minimal sedation, awakens, opens his eyes, squeezes my finger, becomes agitated quite easily, afebrile overnight, normotensive on 40% FiO2, plans on weaning trial, patient continues to tolerate weaning trials well Patient was reexamined early this morning, his ET tube had slightly dislodged, patient had partially self extubated himself, he was pulling on his ET tube, on Precedex for sedation, saturating the mid 90s, with the help of nursing staff and respiratory therapy patient was extubated onto room air, saturating the mid 90s, open his eyes, follows commands Vitals/I&O/Wt Last Vital Signs Temp 99.7 F H 06/28/21 03:40 Pulse 60 06/28/21 14:30 Resp 18 06/28/21 14:30 BP 154/120 06/28/21 14:30 Pulse Ox 93 06/28/21 14:30 06/27/21 06/28/21 06/28/21 22:59 06:59 14:59 Intake Total 1250 / 1767.413 368.998 / 2136.411 108.192 / 108.192 Output Total 1250 / 1250 375 / 1625 Balance 0 / 517.413 -6.002 / 511.411 108.192 / 108.192 Weight last 48 hrs Weight 149.504 kg Weight 142.145 kg Physical Exam Const: COMMON NORMALS: no acute distress OTHER: Alert to person, not to place, not to time, does follow commands Neck/C-Spine: COMMON NORMALS: no JVD Resp: COMMON NORMALS: normal respiratory effort, No retractions, No use of accessory muscles and clear to auscultation bilaterally AUSCULTATION: clear to auscultation bilaterally Cardio: COMMON NORMALS: no JVD, regular rate, regular rhythm, S1 normal heart sound present and S2 normal heart sound present RATE: regular rate RHYTHM: regular rhythm HEART SOUNDS: S1 normal heart sound present and S2 normal heart sound present GI: COMMON NORMALS: Normal to inspection, nondistended, normoactive bowel sounds present, Soft to palpation, non-tender and No hepatosplenomegaly present PALPATION: Yes Soft to palpation and Yes No hepatosplenomegaly present Extremity: COMMON NORMALS: no pedal edema Urinary Catheter Management: Santo: Cath Placed During This Visit: yes Reason for Continuing Indwelling Catheter: Accurate Measurement of Urinary Output in Critically Ill Patients Urinary Catheter Date of Insertion: 06/25/21 Urinary Catheter Time of Insertion: 17:28 Data : 06/28/21 04:35 06/28/21 04:35 A&P Assessment and plan (1) Aspiration pneumonia: Status: Acute (2) Acute kidney injury: Status: Acute (3) Bradycardia: Symptomatic with heart rate generally staying 20s to 40s. Not on beta-blockade due to known history of bradycardia associated with this. Only other notable medications are isosorbide and amlodipine. In talking with him he does have untreated sleep apnea, prostatic hypertrophy and increasing urinary symptoms. Presently however has significant hyperkalemia with initial level at 7.2. TSH was checked and was normal. Status: Acute (4) Hyperkalemia: Has been on potassium supplementation, also on spironolactone, losartan and has acute kidney injury compared to baseline labs, EKG with peaked T waves initially. Labs from the [facility] on June 17 showed potassium of 5.0. Status: Acute (5) Acute kidney injury: On chronic kidney disease stage 2-3, BUN and creatinine at [facility] on 06/17/2021 was 23/1.79. In February 2021 BUN and creatinine were 12/1.1. He is chronically on ARB, Aldactone, Lasix. Also with history of prostatic hypertrophy with worsening lower urinary tract symptoms. Has history of ureteral stone in the past also. Reports noncompliance with his water pills, increasing overall girth. Status: Acute (6) Accelerated hypertension: Chronically on amlodipine, Lasix, isosorbide, losartan and Aldactone, has not had his medications today Status: Acute (7) Congestive heart failure: Acute on chronic preserved ejection fraction last echocardiogram Status: Chronic Qualifiers: Heart failure chronicity: acute on chronic Heart failure type: diastolic Qualified Code(s): I50.33 - Acute on chronic diastolic (congestive) heart failure (8) Abnormal nuclear stress test: Per Dr. Segura clinical notes although upon review it looks like abnormalities could also be consistent with attenuation defects. This is from stress testing done in September of last year. Status: Acute (9) Coronary artery disease: Has not required previous intervention. Records indicate last arteriogram showed 55% narrowing and unclear vessel. Describes anginal type symptoms lately although this could be related to demand ischemia from impact of bradycardia Status: Chronic (10) Atrial fibrillation: Presently with slow ventricular response, chronic Status: Chronic Qualifiers: Atrial fibrillation type: longstanding persistent Qualified Code(s): I48.11 - Longstanding persistent atrial fibrillation (11) Chronic anticoagulation: Chronically on Eliquis Status: Chronic (12) Diabetes mellitus, type II: Hemoglobin A1c at the [facility] June 17, 2021 was 8.0 Chronically on insulin and semaglutide Status: Chronic Qualifiers: Diabetes mellitus manager long term care insulin use: with [facility] use Diabetes mellitus complication status: with neurologic complications Diabetes mellitus complication detail: with polyneuropathy Qualified Code(s): E11.42 - Type 2 diabetes mellitus with diabetic polyneuropathy; Z79.4 - terminal make up operator (current) use of insulin (13) BPH NOS w/o ur obs/LUTS: Chronically on finasteride and Flomax, describes progressive lower urinary symptoms suggestive of potential bladder outlet obstruction contributing to acute kidney injury Status: Chronic (14) Calculus of proximal ureter: Has been present for some time, nonobstructing or at least in the same location last time it was evaluated, patient does not describe classic symptoms of kidney stones but at risk of having an obstructive process Status: Acute (15) Hyperlipidemia: Lipid panel checked June 17, 2021 at the [facility] showed total cholesterol of 206, triglycerides of 189, HDL of 43.9 and calculated LDL of 124.3 with an HDL to total cholesterol ratio of 21.3% Chronically on statin Status: Chronic Qualifiers: Hyperlipidemia type: unspecified Qualified Code(s): E78.5 - Hyperlipidemia, unspecified (16) Obstructive sleep apnea: Does not wear CPAP by choice Status: Chronic (17) BMI 40.0-44.9, adult: Status: Acute (18) Nicotine dependence, chewing tobacco, with other nicotine-induced disorders: Status: Chronic (19) Altered mental status: Status: Acute Plan Acute symptomatic bradycardia -Status post pacemaker placement -Dr. Fernandez on consult Full code Protonix for GI prophylaxis Start Eliquis for DVT prophylaxis tonight Altered mental status, likely secondary to hypoxia, bradycardia, pulmonary edema, aspiration pneumonia Acute respiratory failure, hypoxia, altered mental status -Concerns for aspiration, started on Zosyn -Likely secondary to sinus bradycardia -Status post 1 dose Lasix -Status post extubation 06/28/2021, currently on 2 to 3 L DANITZA, creatinine 2.1, elevated CPK Hyperkalemia, resolved, continue to monitor History of atrial fibrillation, on Eliquis, resume Eliquis tonight Type II diabetes mellitus, low-dose sliding scale History of CVA, monitor History of CAD Hypertension, hold home medications Peripheral arterial disease, bilateral extremities are much more pink, flushed, DP PT pulses palpable bilateral lower extremities are bluish discolored, DP PT pulses barely palpable, likely secondary to bradycardia, however cannot rule out peripheral arterial disease will do ultrasound waveforms, Doppler pulses Attestations Medical Necessity Statement*: Patient requires hospitalization for acute respiratory failure, bradycardia, acute respiratory failure, peripheral arterial disease, critical care time spent over 55 minutes Coding Level of Care Code Acute Tongue And Quarter Stitcher for g Fwd Diagnoses Aspiration pneumonia J69.0 Acute kidney injury N17.9 Bradycardia R00.1 Hyperkalemia E87.5 Acute kidney injury N17.9 Accelerated hypertension I10 Congestive heart failure I50.33 Heart failure chronicity: acute on chronic Heart failure type: diastolic Abnormal nuclear stress test R94.39 Coronary artery disease I25.10 Atrial fibrillation I48.11 Atrial fibrillation type: longstanding persistent Chronic anticoagulation Z79.01 Diabetes mellitus, type II E11.42; Z79.4 Diabetes mellitus manager long term care insulin use: with manager long term care use Diabetes mellitus complication status: with neurologic complications Diabetes mellitus complication detail: with polyneuropathy BPH NOS w/o ur obs/LUTS N40.0 Calculus of proximal ureter N20.1 Hyperlipidemia E78.5 Hyperlipidemia type: unspecified Obstructive sleep apnea G47.33 BMI 40.0-44.9, adult Z68.41 Nicotine dependence, chewing tobacco, with other nicotine-induced disorders F17.228 Altered mental status R41.82
--- NOTE | 2021-06-28 16:29 | PC.SOCIAL ---
IMM not updated IMM not updated as patient isn't accepted to dc in the next 24-48 hours.
[2021-06-28 17:20] LABS: Glucose Point of Care 205 mg/dL (70-110)
--- NOTE | 2021-06-28 17:55 | PC.NURSE ---
Patient AO to self only, not following commands, talks but not appropriate for situation makes no attempt to cooperate with staff
--- NOTE | 2021-06-28 19:21 | PC.NURSE ---
Nitro drip increased to 45 mcg/min. Was on 40 mcg/min when this nurse entered room, and that was the dose reported in bedside report. MAR did not reflect current dose.
[2021-06-28] MEDS: acetaminophen 325 mg Tablet 650 MG PO (19:29)
[2021-06-28] MEDS: LORazepam 2 mg/mL INJ 1 mL 1 MG IVP (20:46)
[2021-06-28 21:22] LABS: Glucose Point of Care 173 mg/dL (70-110)
[2021-06-28] MEDS: apixaban 5 mg Tablet PO (21:24)
--- NOTE | 2021-06-28 21:48 | PC.NURSE ---
Dr. Wills notified of pt's CIWA score. Pt is screaming profanity at staff, thrashing in bed in attempt to get free of restraints. Order for Librium received.
--- NOTE | 2021-06-28 22:34 | PC.NURSE ---
Pt screaming obscenities in his room. He now appears to be having hallucinations, yelling at people that are not present. Pt pulling at restraints attempting to break them.
[2021-06-28] MEDS: chlordiazePOXIDE 25 mg Capsule 50 MG PO (22:37)
[2021-06-28] MEDS: LORazepam 2 mg/mL INJ 1 mL IVP (22:40)
--- NOTE | 2021-06-28 22:50 | PC.NURSE ---
Precedex order changed to premix bag per pharmacy.
[2021-06-28] MEDS: dexmedetomidine 400 MCG in sodium chloride 0.9% (100 ml) 100 ML IV (22:52)
[2021-06-29] VITALS (63 sets, daily range): BP systolic 145–222; BP diastolic 56–119; PULSE 60–68; RESP 10–39; TEMP 37–38.2; O2SAT 90–100
--- NOTE | 2021-06-29 01:56 | PC.NURSE ---
Pt no longer restless or yelling obscenities. Precedex turned off in an attempt to wean off.
--- NOTE | 2021-06-29 02:53 | PC.NURSE ---
Pt resting quietly in bed. No restlessness or agitation noted at this time.
[2021-06-29] MEDS: piperacillin-tazobactam 3.375 GM in sodium chloride 0.9% (plus) 50 ML IV ×3 (04:26→20:21)
[2021-06-29 04:44] LABS: Basophils % 0.2 %; Eosinophils % 0.1 %; Hematocrit 34.2 % (42.0-52.0); Hemoglobin 11.3 g/dL (11.7-16.6); Lymphocytes # 1.3 10^3/uL (0.8-4.8); Lymphocytes % 11.7 %; Mean Corpuscular Hemoglobin 29.1 pg (28.0-34.0); Mean Corpuscular Volume 88.1 fl (80-94); Mean Platelet Volume 11.3 fL (7.4-10.4); Monocytes # 0.8 10^3/uL (0.2-0.9); Monocytes % 7.4 %; Neutrophils # 8.86 10^3/uL (1.8-7.7); Neutrophils % 80.1 %; Nucleated Red Blood Cells % 0 %; Platelet Count 166 10^3/cmm (130-400); Red Blood Count 3.88 10^6/uL (4.1-5.3); Red Cell Distribution Width 12.9 % (12.1-15.1); White Blood Count 11.1 10^3/uL (4.0-10.0)
[2021-06-29 05:11] LABS: INR 1.38 (0.8-1.2)
[2021-06-29 05:22] LABS: NT Pro B Type Natriuretic Pept 6067 pg/mL (0-125); Procalcitonin 0.87 ng/mL (0-0.5)
[2021-06-29 05:40] LABS: Alanine Aminotransferase 13 U/L (0-41); Albumin Level 3.3 g/dL (3.5-5.2); Alkaline Phosphatase 56 IU/L (40-130); Anion Gap 14.2 (5-19); Aspartate Amino Transferase 29 U/L (0-40); Blood Urea Nitrogen 39 mg/dL (8-23); Calcium 8.5 mg/dL (8.5-10.5); Carbon Dioxide 25 mmol/L (22-29); Chloride 107 mmol/L (98-107); Glucose 185 mg/dL (65-115); Magnesium 1.9 mg/dL (1.7-2.3); Osmolality Calculated 310 mOsm/kg (285-295); Phosphorus 3.6 mg/dL (2.5-4.5); Potassium 3.2 mmol/L (3.5-5.1); Sodium 143 mmol/L (136-145); Total Bilirubin 0.8 mg/dL (0.15-1.2); Total Protein 6.3 g/dL (6.6-8.7)
[2021-06-29 05:48] LABS: Creatine Phosphokinase 648 U/L (39-308)
--- NOTE | 2021-06-29 06:14 | PC.NURSE ---
Pt remains confused, but calm. Pt repeats speech, for example, when I asked him where he is, he responded, don't give up, over and over again.
[2021-06-29] MEDS: nitroglycerin drip 50 MG/250 ML PREMIX 19.5 MG IV (06:16)
[2021-06-29 07:31] LABS: Glucose Point of Care 179 mg/dL (70-110)
--- NOTE | 2021-06-29 07:52 | CTR_ITS ---
PROCEDURE INFORMATION: Exam: CT Head Without Contrast Exam date and time: 06/29/2021 9:24 AM Age: 71 years old Clinical indication: Altered mental status/memory loss; Additional info: AMS TECHNIQUE: Imaging protocol: Computed tomography of the head without contrast. Radiation optimization: All CT scans at this facility use at least one of these dose optimization techniques: automated exposure control; mA and/or kV adjustment per patient size (includes targeted exams where dose is matched to clinical indication); or iterative reconstruction. COMPARISON: CT Head [facility] [place] [id number] 09/04/2016 10:51 AM RADIATION DOSE METRICS: Total DLP (mGy-cm): 2504.64 FINDINGS: Brain: There is no acute intracranial hemorrhage. There is lucency in the cerebral white matter, likely microvascular disease although non-specific. No evidence of mass. There is no mass effect or midline shift. Robles white differentiation is intact. There are no extra-axial fluid collections. Cerebral ventricles: The ventricles and sulci are enlarged, consistent with volume loss / atrophy. No hydrocephalus. Paranasal sinuses: Visualized sinuses are unremarkable. No fluid levels. Mastoid air cells: No significant mastoid effusion. Vasculature: There is vascular calcification. Bones/joints: There are chronic fracture deformities of nasal bones and right zygomatic arch. Soft tissues: Unremarkable as visualized. Dental: There is the size of the lucent lesion in the right parietal skull currently measuring 11 mm on axial images and previously measuring 6 mm. This is nonspecific. No erosion of inner or outer table of skull. CT/CT head wo con* [id number] IMPRESSION: 1. No evidence of acute intracranial abnormality. No evidence of acute infarction, hemorrhage, or mass. 2. Atrophy and microvascular disease. 3. Enlarging nonspecific right parietal skull lesion compared to 2017 examination.
[2021-06-29] MEDS: lidocaine 1% 5 ML in potassium chloride premix 100 ML 25 ML IV ×2 (08:16→17:03)
[2021-06-29] MEDS: insulin lispro 100 unit/1 mL SUBCUT ×4 (08:17→20:22)
[2021-06-29] MEDS: multivitamin therapeutic Tablet 1 TAB PO (08:18)
[2021-06-29] MEDS: folic acid 1 mg Tablet PO (08:18)
[2021-06-29] MEDS: aspirin 81 mg EC Tablet PO (08:18)
[2021-06-29] MEDS: chlorhexidine gluconate 4% Btl 118 mL 1 APPLIC TOPICAL ×2 (08:18→17:01)
[2021-06-29] MEDS: thiamine 100 mg Tablet PO (08:18)
[2021-06-29] MEDS: pantoprazole 40 mg SDV IVP (08:20)
[2021-06-29] MEDS: docusate sodium 10 mg/mL (5ml) Liq 100 MG PO (08:20)
[2021-06-29] MEDS: apixaban 5 mg Tablet PO ×2 (08:20→20:24)
--- NOTE | 2021-06-29 08:33 | P.PN_ITS ---
Subjective Subjective: Postop day #2 status post single-lead pacemaker implantation. Mr. Guillaume remains confused and is scheduled for a CAT scan today. Monitor appears to reveal continuous capture with a heart rate of 60. Postop day 1 interrogation revealed appropriate system functioning. Dressing was removed today. Incision line is clean and dry. Area was cleaned with ChloraPrep and Vitals/I&O/Wt Last Vital Signs Temp 98.6 F 06/29/21 04:00 Pulse 60 06/29/21 06:20 Resp 13 06/29/21 06:00 BP 168/66 06/29/21 06:19 Pulse Ox 90 06/29/21 06:00 06/28/21 06/29/21 06/29/21 22:59 06:59 14:59 Intake Total 1750.85 / 1899.667 223.345 / 2123.012 Output Total 1800 / 1800 700 / 2500 Balance -49.15 / 99.667 -476.655 / -376.988 Weight last 48 hrs Weight 327 lb 11.2 oz Weight 329 lb 9.6 oz Physical Exam Chest: OTHER: Intact and dry. No evidence for fluid collection. Surgical dressing was rep laced. Urinary Catheter Management: Santo: Cath Placed During This Visit: yes Reason for Continuing Indwelling Catheter: Accurate Measurement of Urinary Output in Critically Ill Patients Urinary Catheter Date of Insertion: 06/25/21 Urinary Catheter Time of Insertion: 17:28 Data : 06/29/21 04:26 06/29/21 04:26 A&P Assessment and plan (1) Status post cardiac pacemaker procedure: POD #2 status post pacemaker implantation. I would keep the incision line covered with daily dressing changes while patient remains hospitalized to prevent contamination from monitoring leads. Status: Acute Attestations Medical Necessity Statement*: Status post pacemaker implantation due to heart block Coding Level of Care Code Acute Disability Insurance Hearing Officer for Yris Fwruth Diagnoses Status post cardiac pacemaker procedure Z95.0
--- NOTE | 2021-06-29 08:53 | P.PN_ITS ---
Subjective Subjective: Giles is still very confused and disoriented. Pacemaker is functioning normally. His blood pressure has been quite high. He is back on apixaban. He is on a nitroglycerin drip for hypertension. The right groin art line is still in place. He is mildly short of breath at rest but not in any di stress. Remains extubated. His creatinine is down to 1.8. Vitals/I&O/Wt Last Vital Signs Temp 98.6 F 06/29/21 04:00 Pulse 60 06/29/21 06:20 Resp 13 06/29/21 06:00 BP 168/66 06/29/21 06:19 Pulse Ox 90 06/29/21 06:00 06/28/21 06/29/21 06/29/21 22:59 06:59 14:59 Intake Total 1750.85 / 1899.667 223.345 / 2123.012 Output Total 1800 / 1800 700 / 2500 Balance -49.15 / 99.667 -476.655 / -376.988 Weight last 48 hrs Weight 327 lb 11.2 oz Weight 329 lb 9.6 oz Physical Exam Narrative: GENERAL: In general he is confused and disoriented. Somewhat agitated HEENT: Exam within normal limits. NECK: Supple without jugular vein distention. The carotid upstroke is normal without bruits. BACK: Exam normal. LUNGS: Clear. HEART: Regular rate and rhythm. ABDOMEN: Benign without organomegaly or tenderness. EXTREMITIES: No edema. NEUROLOGIC: Exam not done SKIN: Unremarkable. Urinary Catheter Management: Santo: Cath Placed During This Visit: yes Reason for Continuing Indwelling Catheter: Accurate Measurement of Urinary Output in Critically Ill Patients Urinary Catheter Date of Insertion: 06/25/21 Urinary Catheter Time of Insertion: 17:28 Data : 06/29/21 04:26 06/29/21 04:26 A&P Assessment and plan (1) Status post cardiac pacemaker procedure: Status: Acute (2) Altered mental status: Status: Acute (3) Acute kidney injury: Status: Acute (4) Aspiration pneumonia: Status: Acute (5) Congestive heart failure: Status: Chronic Qualifiers: Heart failure chronicity: acute on chronic Heart failure type: diastolic Qualified Code(s): I50.33 - Acute on chronic diastolic (congestive) heart failure (6) Obstructive sleep apnea: Status: Chronic (7) Hyperlipidemia: Status: Chronic Qualifiers: Hyperlipidemia type: unspecified Qualified Code(s): E78.5 - Hy perlipidemia, unspecified (8) Chronic anticoagulation: Status: Chronic (9) Diabetes mellitus, type II: Status: Chronic Qualifiers: Diabetes mellitus [facility] insulin use: with buttermaker use Diabetes mellitus complication status: with neurologic complications Diabetes mellitus complication detail: with polyneuropathy Qualified Code(s): E11.42 - Type 2 diabetes mellitus with diabetic polyneuropathy; Z79.4 - shelter (current) use of insulin (10) PAD (peripheral artery disease): Status: Chronic (11) Coronary artery disease: Status: Chronic (12) Acute kidney injury: Status: Acute (13) Atrial fibrillation: Status: Chronic Qualifiers: Atrial fibrillation type: longstanding persistent Qualified Code(s): I48.11 - Longstanding persistent atrial fibrillation (14) Accelerated hypertension: Status: Acute Plan Continue current care. Pacemaker functioning normally. Still hypotensive on IV nitro. Leave arterial line in place until such time as the blood pressure is under better control. It should come out within the next day or so. Attestations Medical Necessity Statement*: Needs hospital care due to delirium and recent permanent pacemaker placement. Coding Level of Care Code Established Pt Acute Grounds/Maintenance Specialist for Yris Tee Patient Type Established History Comprehensive Exam Comprehensive Medical Decision Making High Complexity Diagnoses Status post cardiac pacemaker procedure Z95.0 Altered mental status R41.82 Acute kidney injury N17.9 Aspiration pneumonia J69.0 Congestive heart failure I50.33 Heart failure chronicity: acute on chronic Heart failure type: diastolic Obstructive sleep apnea G47.33 Hyperlipidemia E78.5 Hyperlipidemia type: unspecified Chronic anticoagulation Z79.01 Diabetes mellitus, type II E11.42; Z79.4 Diabetes mellitus buttermaker insulin use: with buttermaker use Diabetes mellitus complication status: with neurologic complications Diabetes mellitus complication detail: with polyneuropathy PAD (peripheral artery disease) I73.9 Coronary artery disease I25.10 Acute kidney injury N17.9 Atrial fibrillation I48.11 Atrial fibrillation type: longstanding persistent Accelerated hypertension I10 Time Spent (min) 30
--- NOTE | 2021-06-29 09:19 | P.PN_ITS ---
Subjective Subjective: Events of the last 24 hours noted. He is now extubated, elton very confused. Intermittent oral intake. Blood pressure remains elevated, on nitro drip. As needed hydralazine given. Good urine output. Mild global edema. Medications: Reviewed: Yes Vitals/I&O/Wt Last Vital Signs Temp 98.6 F 06/29/21 04:00 Pulse 64 06/29/21 08:30 Resp 15 06/29/21 07:30 BP 198/63 06/29/21 08:00 Pulse Ox 94 06/29/21 08:30 06/28/21 06/29/21 06/29/21 22:59 06:59 14:59 Intake Total 1750.85 / 1899.667 223.345 / 2123.012 Output Total 1800 / 1800 700 / 2500 Balance -49.15 / 99.667 -476.655 / -376.988 Weight last 48 hrs Weight 148.642 kg Weight 149.504 kg Physical Exam Narrative: Constitutional: sedated and vetned HEENT: Wet mucosa, no jvp, non icteric Lungs: Bilaterally clear without discernible wheeze, rales in all lung zones CVS: S1 S2, no murmurs Abdo: Soft, BS ok Ext 4: Minimal edema, peripheral perfusion with no cyanosis Neurological: Grossly non-focal Urinary Catheter Management: Santo: Cath Placed During This Visit: yes Reason for Continuing Indwelling Catheter: Accurate Measurement of Urinary Output in Critically Ill Patients Urinary Catheter Date of Insertion: 06/25/21 Urinary Catheter Time of Insertion: 17:28 Data : 06/29/21 04:26 06/29/21 04:26 A&P Assessment and plan (1) Acute kidney injury: 1. Acute kidney injury Likely bradycardic cardiorenal syndrome Renal function now recovering nicely. Monitor strict I's and O's No indication for renal replacement therapy Avoid usual nephrotoxic agents Dose medication for GFR less than 30. 2. Hemodynamics Status post PPM, hypertensive, will give hydralazine intravenously as needed nitro drip, resume po amlodipine when taking oral 3. Chemistry Well-balanced; K replacement 4. Vent dependent respiratory failure Management per the ICU team, weaning as tolerated over the next day or so. Thank you for consultation Hal Worrell MD Nephrology [phone] Patient seen and examined via telemedicine, with the assistance of the bedside RN > 25 min spent in evaluation and mgmt of patient Status: Acute Attestations Medical Necessity Statement*: DANITZA Coding Level of Care Code Acute Lithographic Plate Maker for Yris Tee Diagnoses Acute kidney injury N17.9
--- NOTE | 2021-06-29 09:48 | PC.NURSE ---
Physician rounding Dr. Fenton at bedside earlier this morning, observed HR drop to 35 briefly and bundle branch block no N.O. Dr. Pastor saw patient while staff were getting ordered head CT, no N.O. at this time
[2021-06-29] MEDS: amlodipine 10 mg Tablet PO (09:58)
[2021-06-29] MEDS: LORazepam 2 mg/mL INJ 1 mL IVP (10:18)
--- NOTE | 2021-06-29 12:21 | XRR_ITS ---
PROCEDURE INFORMATION: Exam: XR Abdomen Exam date and time: 06/29/2021 1:12 PM Age: 71 years old Clinical indication: Bloating; Patient HX: Post cath abd distention; Additional info: Abdominal distention TECHNIQUE: Imaging protocol: XR of the abdomen. Views: Frontal supine view of the abdomen. 1 View. COMPARISON: CR XR KUB [id number] 12/18/2020 10:01 AM FINDINGS: Gastrointestinal tract: Normal. No bowel dilation. Bones/joints: Unremarkable. XR/XR KUB portable [id number] IMPRESSION: No acute findings.
--- NOTE | 2021-06-29 12:21 | XRR_ITS ---
PROCEDURE INFORMATION: Exam: XR Chest Exam date and time: 06/29/2021 1:09 PM Age: 71 years old Clinical indication: Shortness of breath; Prior surgery; Surgery date: Post-operative (0-2 days); Patient HX: SOB post cath and pacer TECHNIQUE: Imaging protocol: XR of the chest. Views: 1 view. COMPARISON: CR XR chest 1V portable [id number] 06/28/2021 5:23 AM FINDINGS: Tubes, catheters and devices: Cardiac device left anterior chest Lungs: Low lung volumes. The lungs are otherwise clear No consolidation. Pleural spaces: Unremarkable. No pleural effusion. No pneumothorax. Heart/Mediastinum: Unremarkable. No cardiomegaly. Bones/joints: Unremarkable. XR/XR chest 1V portable [id number] IMPRESSION: 1. No acute findings. 2. Cardiac device left anterior chest good position.
[2021-06-29 12:34] LABS: Glucose Point of Care 175 mg/dL (70-110)
[2021-06-29] MEDS: metOLazone 5 MG Tablet 10 MG PO (12:40)
[2021-06-29] MEDS: FUROsemide 10 mg/mL SDV 4mL 40 MG IVP ×2 (12:40→17:02)
--- NOTE | 2021-06-29 12:55 | PC.OT ---
Evaluation completed per nursing request due to confusion and mental status. Will attempt tomorrow.
--- NOTE | 2021-06-29 13:00 | PC.NURSE ---
RR noted to be very labored in the 25 to 30 times a minute, Dr. Pastor notified gave respiratory order for Bipap
--- NOTE | 2021-06-29 13:25 | PM.PN ---
Subjective Subjective: Patient was seen this morning, multiple times, he is having CT of his head today, when I asked him what is wrong he wakens up, and tells me he wants to go home, but falls back asleep, nursing staff tell me that he had episodes of agitation overnight, requiring Librium, he is required Ativan currently on Precedex, remains hypertensive on a nitroglycerin drip alert to person, not to place, not to time, at times he does follow commands at other times he does not Vitals/I&O/Wt Last Vital Signs Temp 98.6 F 06/29/21 04:00 Pulse 60 06/29/21 12:30 Resp 29 H 06/29/21 12:30 BP 203/66 06/29/21 12:30 Pulse Ox 98 06/29/21 12:30 06/28/21 06/29/21 06/29/21 22:59 06:59 14:59 Intake Total 1750.85 / 1899.667 223.345 / 2123.012 50 / 50 Output Total 1800 / 1800 700 / 2500 Balance -49.15 / 99.667 -476.655 / -376.988 50 / 50 Weight last 48 hrs Weight 148.642 kg Weight 149.504 kg Physical Exam Const: COMMON NORMALS: no acute distress EXAM LIMITATIONS: altered mental status ORIENTATION/CONSCIOUSNESS: Yes awake and Yes oriented to person; not oriented to place and not oriented to time Resp: COMMON NORMALS: normal respiratory effort, No retractions, No use of accessory muscles and clear to auscultation bilaterally AUSCULTATION: clear to auscultation bilaterally Cardio: COMMON NORMALS: regular rate, regular rhythm, S1 normal heart sound present and S2 normal heart sound present RATE: regular rate RHYTHM: regular rhythm HEART SOUNDS: S1 normal heart sound present and S2 normal heart sound present GI: COMMON NORMALS: Normal to inspection, nondistended, normoactive bowel sounds present, Soft to palpation and non-tender PALPATION: Yes Soft to palpation Extremity: NARRATIVE EXTREMITY EXAM: 1+ pitting edema bilateral extremities, Neuro: SENSORIUM/ORIENTATION: Yes oriented to person, No oriented to place and No oriented to time Urinary Catheter Management: Santo: Cath Placed During This Visit: yes Reason for Continuing Indwelling Catheter: Accurate Measurement of Urinary Output in Critically Ill Patients Urinary Catheter Date of Insertion: 06/25/21 Urinary Catheter Time of Insertion: 17:28 Data : 06/29/21 04:26 06/29/21 04:26 A&P Assessment and plan (1) Aspiration pneumonia: Status: Acute (2) Acute kidney injury: Status: Acute (3) Bradycardia: Symptomatic with heart rate generally staying 20s to 40s. Not on beta-blockade due to known history of bradycardia associated with this. Only other notable medications are isosorbide and amlodipine. In talking with him he does have untreated sleep apnea, prostatic hypertrophy and increasing urinary symptoms. Presently however has significant hyperkalemia with initial level at 7.2. TSH was checked and was normal. Status: Acute (4) Hyperkalemia: Has been on potassium supplementation, also on spironolactone, losartan and has acute kidney injury compared to baseline labs, EKG with peaked T waves initially. Labs from the [facility] on June 17 showed potassium of 5.0. Status: Acute (5) Acute kidney injury: On chronic kidney disease stage 2-3, BUN and creatinine at [facility] on 06/17/2021 was 23/1.79. In February 2021 BUN and creatinine were 12/1.1. He is chronically on ARB, Aldactone, Lasix. Also with history of prostatic hypertrophy with worsening lower urinary tract symptoms. Has history of ureteral stone in the past also. Reports noncompliance with his water pills, increasing overall girth. Status: Acute (6) Accelerated hypertension: Chronically on amlodipine, Lasix, isosorbide, losartan and Aldactone, has not had his medications today Status: Acute (7) Congestive heart failure: Acute on chronic preserved ejection fraction last echocardiogram Status: Chronic Qualifiers: Heart failure chronicity: acute on chronic Heart failure type: diastolic Qualified Code(s): I50.33 - Acute on chronic diastolic (congestive) heart failure (8) Abnormal nuclear stress test: Per Dr. Segura clinical notes although upon review it looks like abnormalities could also be consistent with attenuation defects. This is from stress testing done in September of last year. Status: Acute (9) Coronary artery disease: Has not required previous intervention. Records indicate last arteriogram showed 55% narrowing and unclear vessel. Describes anginal type symptoms lately although this could be related to demand ischemia from impact of bradycardia Status: Chronic (10) Atrial fibrillation: Presently with slow ventricular response, chronic Status: Chronic Qualifiers: Atrial fibrillation type: longstanding persistent Qualified Code(s): I48.11 - Longstanding persistent atrial fibrillation (11) Chronic anticoagulation: Chronically on Eliquis Status: Chronic (12) Diabetes mellitus, type II: Hemoglobin A1c at the [facility] June 17, 2021 was 8.0 Chronically on insulin and semaglutide Status: Chronic Qualifiers: Diabetes mellitus machine long goods helper insulin use: with machine long goods helper use Diabetes mellitus complication status: with neurologic complications Diabetes mellitus complication detail: with polyneuropathy Qualified Code(s): E11.42 - Type 2 diabetes mellitus with diabetic polyneuropathy; Z79.4 - intermediate (current) use of insulin (13) BPH NOS w/o ur obs/LUTS: Chronically on finasteride and Flomax, describes progressive lower urinary symptoms suggestive of potential bladder outlet obstruction contributing to acute kidney injury Status: Chronic (14) Calculus of proximal ureter: Has been present for some time, nonobstructing or at least in the same location last time it was evaluated, patient does not describe classic symptoms of kidney stones but at risk of having an obstructive process Status: Acute (15) Hyperlipidemia: Lipid panel checked June 17, 2021 at the [facility] showed total cholesterol of 206, triglycerides of 189, HDL of 43.9 and calculated LDL of 124.3 with an HDL to total cholesterol ratio of 21.3% Chronically on statin Status: Chronic Qualifiers: Hyperlipidemia type: unspecified Qualified Code(s): E78.5 - Hyperlipidemia, unspecified (16) Obstructive sleep apnea: Does not wear CPAP by choice Status: Chronic (17) BMI 40.0-44.9, adult: Status: Acute (18) Nicotine dependence, chewing tobacco, with other nicotine-induced disorders: Status: Chronic (19) Altered mental status: Status: Acute Plan Acute symptomatic bradycardia -Status post pacemaker placement -Dr. Fernandez on consult Full code Protonix for GI prophylaxis On Eliquis for DVT prophylaxis Altered mental status, likely secondary to aspiration pneumonia, hypoxia, hypertensive encephalopathy -Continue nitro drip for hypertensive encephalopathy -Continue Zosyn for antibiotic coverage -We will obtain CT of the head -Blood cultures, urine cultures, blood ammonia levels -Aspiration precautions, keep n.p.o. -No history of alcoholism, possible alcohol withdrawal? Acute respiratory failure, hypoxia, -Concerns for aspiration on Zosyn -Has a history of severe diastolic CHF, requiring multiple hospitalizations -We will give 2 doses of Lasix today, keep negative fluid balance -Status post extubation 06/28/2021, requiring BiPAP therapy DANITZA, 1.8, elevated CPK, has a history of rhabdomyolysis Hyperkalemia, resolved, continue to monitor History of atrial fibrillation, on Eliquis, resume Eliquis Type II diabetes mellitus, low-dose sliding scale History of CVA, monitor History of CAD Hypertension, hold home medications Peripheral arterial disease, bilateral extremities are much more pink, flushed, DP PT pulses palpable bilateral lower extremities are bluish discolored, DP PT pulses barely palpable, likely secondary to bradycardia, however cannot rule out peripheral arterial disease will do ultrasound waveforms, Doppler pulses Attestations Medical Necessity Statement*: Patient requires hospitalization for acute encephalopathy, bradycardia, pacemaker placement, critical care time spent over 35 minutes Coding Level of Care Code Acute Db2 Developer for [facility] Fwd Diagnoses Aspiration pneumonia J69.0 Acute kidney injury N17.9 Bradycardia R00.1 Hyperkalemia E87.5 Acute kidney injury N17.9 Accelerated hypertension I10 Congestive heart failure I50.33 Heart failure chronicity: acute on chronic Heart failure type: diastolic Abnormal nuclear stress test R94.39 Coronary artery disease I25.10 Atrial fibrillation I48.11 Atrial fibrillation type: longstanding persistent Chronic anticoagulation Z79.01 Diabetes mellitus, type II E11.42; Z79.4 Diabetes mellitus machine long goods helper insulin use: with jail use Diabetes mellitus complication status: with neurologic complications Diabetes mellitus complication detail: with polyneuropathy BPH NOS w/o ur obs/LUTS N40.0 Calculus of proximal ureter N20.1 Hyperlipidemia E78.5 Hyperlipidemia type: unspecified Obstructive sleep apnea G47.33 BMI 40.0-44.9, adult Z68.41 Nicotine dependence, chewing tobacco, with other nicotine-induced disorders F17.228 Altered mental status R41.82
--- NOTE | 2021-06-29 14:29 | PC.PT ---
PT eval was attempted but nurse asks to hold therapy due to patient not doing good. Will attempt again tomorrow.
[2021-06-29 16:36] LABS: Glucose Point of Care 166 mg/dL (70-110)
[2021-06-29] MEDS: nitroglycerin drip 50 MG/250 ML PREMIX 15 MG IV (18:06)
[2021-06-29 18:16] LABS: Ammonia 20 umol/L (16-60)
[2021-06-29] MEDS: OLANZapine 5 mg TABLET PO (20:21)
[2021-06-29] MEDS: LORazepam 2 mg/mL INJ 1 mL 1 MG IVP (20:22)
[2021-06-29 21:15] LABS: Glucose Point of Care 166 mg/dL (70-110)
[2021-06-29] MEDS: hyDRALAzine 20 mg/mL INJ 1 mL 10 MG IVP (21:21)
[2021-06-29] MEDS: labetalol 5 mg/mL SDV 20mL 10 MG IVP (22:18)
[2021-06-29] MEDS: dexmedeTOMIDine 0.9 % NaCL 400 MCG/100 ML PREMIX 18.69 MCG IV (22:58)
[2021-06-29 23:22] LABS: ABG PCO2 31.5 mmHg (35-45); ABG PH Result 7.52 (7.35-7.45); Arterial Blood Gas Hematocrit 38.3 % (42-52); Base Excess ABG 3.2 mmol/L (-2.0-2.0); Blood Gas Allen Test Pos; Blood Gas Sample Site Radial, right; Blood Gas Sample Type Arterial; HCO3 ABG 25.6 mmol/L (22-26); Oxygen Device BIPAP; PO2 ABG 79.4 mmHg (80.0-100.0)
[2021-06-29] MEDS: nicardipine 20 MG/200 ML PREMIX 50 MG IV (23:37)
[2021-06-30] VITALS (68 sets, daily range): BP systolic 118–185; BP diastolic 54–88; PULSE 60–79; RESP 16–34; TEMP 36.9–38.8; O2SAT 88–100; BMI 42.6
[2021-06-30] MEDS: dexmedeTOMIDine 0.9 % NaCL 400 MCG/100 ML PREMIX 37.38 MCG IV ×2 (03:56→06:50)
[2021-06-30] MEDS: piperacillin-tazobactam 3.375 GM in sodium chloride 0.9% (plus) 50 ML IV ×3 (04:00→20:28)
[2021-06-30 04:21] LABS: Alanine Aminotransferase 16 U/L (0-41); Albumin Level 3.4 g/dL (3.5-5.2); Alkaline Phosphatase 66 IU/L (40-130); Anion Gap 18.9 (5-19); Aspartate Amino Transferase 25 U/L (0-40); Blood Urea Nitrogen 36 mg/dL (8-23); Calcium 8.5 mg/dL (8.5-10.5); Carbon Dioxide 24 mmol/L (22-29); Chloride 110 mmol/L (98-107); Globulin 2.8 g/dL (1.3-4.6); Glucose 236 mg/dL (65-115); Osmolality Calculated 324 mOsm/kg (285-295); Phosphorus 4.2 mg/dL (2.5-4.5); Potassium 3.9 mmol/L (3.5-5.1); Sodium 149 mmol/L (136-145); Total Bilirubin 0.7 mg/dL (0.15-1.2); Total Protein 6.2 g/dL (6.6-8.7)
[2021-06-30] MEDS: nitroglycerin drip 50 MG/250 ML PREMIX 21 MG IV (05:50)
--- NOTE | 2021-06-30 06:56 | P.PN_ITS ---
Subjective Subjective: htn, good uop, confused,bipap dependent. not taking all of his meds Medications: Reviewed: Yes Medication Review Details: Current Medications Acetaminophen (Acetaminophen 325 Mg Tablet) 650 mg PO Q6H PRN PRN Reason: MILD PAIN Last Admin: 06/28/21 19:29 Dose: 650 mg Documented by: Amlodipine Besylate (Amlodipine 10 Mg Tablet) 10 mg PO DAILY [facility] Last Admin: 06/29/21 09:58 Dose: 10 mg Documented by: Apixaban (Apixaban 5 Mg Tablet) 5 mg PO BID@0900,2100 [facility] Last Admin: 06/29/21 20:24 Dose: 5 mg Documented by: Aspirin (Aspirin 81 Mg Ec Tablet) 81 mg PO DAILY [facility] Last Admin: 06/29/21 08:18 Dose: 81 mg Documented by: Atorvastatin Calcium (Atorvastatin 40 Mg Tablet) 40 mg PO QPM [facility] Last Admin: 06/29/21 17:01 Dose: Not Given Documented by: Chlorhexidine Gluconate (Chlorhexidine Gluconate 4% Btl 118 Ml) 1 applic TOPICAL BID [facility] Last Admin: 06/29/21 17:01 Dose: 1 applic Documented by: Clonidine HCl (Clonidine 0.1 Mg Tablet) 0.1 mg PO Q12H [facility] Last Admin: 06/30/21 04:03 Dose: Not Given Documented by: Dextrose (Dextrose 50% Syringe 50 Ml) 25 ml IVP ONCE PRN; Protocol PRN Reason: hypoglycemia protocol Dextrose (Dextrose 50% Syringe 50 Ml) 50 ml IVP PRN PRN; Protocol PRN Reason: hypoglycemia protocol Docusate Sodium (Docusate Sodium 10 Mg/Ml (5ml) Liq) 100 mg PO BID [facility] Last Admin: 06/29/21 17:02 Dose: Not Given Documented by: Folic Acid (Folic Acid 1 Mg Tablet) 1 mg PO DAILY [facility] Last Admin: 06/29/21 08:18 Dose: 1 mg Documented by: Glucagon (Glucagon 1 Mg/Ml Inj 1 Ml) 1 mg IM ONCE PRN; Protocol PRN Reason: Adult Acute Hypoglycemia Prot. Hydralazine HCl (Hydralazine 20 Mg/Ml Inj 1 Ml) 10 mg IVP Q4H PRN PRN Reason: Nausea and Vomiting, Severe Last Admin: 06/29/21 21:21 Dose: 10 mg Documented by: Dextrose (D5w) 500 mls @ 100 mls/hr IV ONCE PRN; Protocol PRN Reason: Adult Acute Hypoglycemia Prot Piperacillin Sod/Tazobactam (Sod 3.375 gm/ Sodium Chloride) 50 mls @ 12.5 mls/hr IV Q8H LC Last Admin: 06/30/21 04:00 Dose: 12.5 mls/hr Documented by: Nitroglycerin/Dextrose (Nitroglycerin Drip) 50 mg in 250 mls @ 0 mls/hr IV .Q0M LC; Protocol Last Titration: 06/30/21 06:56 Dose: 80 mcg/min, 24 mls/hr Documented by: dexmedeTOMIDine 0.9 % NaCL (Precedex) 400 mcg in 100 mls @ 0 mls/hr IV .Q0M LC; Protocol Last Admin: 06/30/21 06:50 Dose: 1 mcg/kg/hr, 37.38 mls/hr Documented by: Nicardipine/Sodium Chloride (Cardene) 20 mg in 200 mls @ 0 mls/hr IV .Q0M LC; Protocol Last Titration: 06/30/21 02:36 Dose: 0 mg/hr, 0 mls/hr Documented by: Insulin Human Lispro (Insulin Lispro 100 Unit/1 Ml) 0 unit SUBCUT BEDTIME LC; Protocol Last Admin: 06/29/21 20:22 Dose: 2 unit Documented by: Insulin Human Lispro (Insulin Lispro 100 Unit/1 Ml) 0 unit SUBCUT TIDWM LC; Protocol Last Admin: 06/29/21 17:01 Dose: 4 unit Documented by: Labetalol HCl (Labetalol 5 Mg/Ml Sdv 20ml) 10 mg IVP Q4H PRN PRN Reason: SBP>180 or DBP>90 hold if HR<60 Last Admin: 06/29/21 22:18 Dose: 10 mg Documented by: Lorazepam (Lorazepam 2 Mg/Ml Inj 1 Ml) 1 mg IVP Q2H PRN PRN Reason: ANXIETY Last Admin: 06/29/21 20:22 Dose: 1 mg Documented by: Multivitamins Therapeutic (Multivitamin Therapeutic Tablet) 1 tab PO DAILY [facility] Last Admin: 06/29/21 08:18 Dose: 1 tab Documented by: Olanzapine (Olanzapine 5 Mg Tablet) 5 mg PO BEDTIME LC Last Admin: 06/29/21 20:21 Dose: 5 mg Documented by: Ondansetron HCl (Ondansetron 2 Mg/Ml Sdv 2 Ml) 4 mg IVP Q8H PRN PRN Reason: NAUSEA AND VOMITING Pantoprazole Sodium (Pantoprazole 40 Mg Sdv) 40 mg IVP DAILY [facility] Last Admin: 06/29/21 08:20 Dose: 40 mg Documented by: Spironolactone (Spironolactone 25 Mg Tablet) 50 mg PO Q24H [facility] Last Admin: 06/29/21 15:46 Dose: Not Given Documented by: Thiamine Mononitrate (Thiamine 100 Mg Tablet) 100 mg PO DAILY [facility] Last Admin: 06/29/21 08:18 Dose: 100 mg Documented by: Vitals/I&O/Wt Last Vital Signs Temp 98.5 F 06/30/21 05:41 Pulse 60 06/30/21 05:55 Resp 29 H 06/30/21 05:55 BP 167/84 06/30/21 05:45 Pulse Ox 95 06/30/21 05:55 06/29/21 06/29/21 06/30/21 14:59 22:59 06:59 Intake Total 200.8 / 200.8 405.105 / 605.905 552.892 / 1158.797 Output Total 2700 / 2700 300 / 3000 Balance 200.8 / 200.8 -2294.895 / -2094.095 252.892 / -1841.203 Weight last 48 hrs Weight 146.51 kg Weight 148.642 kg Physical Exam Narrative: obese man in bed on nitro drip, bipap dependent heent- nc/at, eomi neck supple lungs clear b/l heart -paced rhythm + s1, s2 abd soft, nt, nd, + bs ext 1+ edema, poor pulses rt foot w/ an ischemic toe neuro- awake, confused. awake to his name and hospital Urinary Catheter Management: Santo: Cath Placed During This Visit: yes Reason for Continuing Indwelling Catheter: Accurate Measurement of Urinary Output in Critically Ill Patients Urinary Catheter Date of Insertion: 06/25/21 Urinary Catheter Time of Insertion: 17:28 Data : 06/29/21 04:26 06/30/21 03:25 Micro: Microbiology 06/29/21 17:41 Blood Culture - Preliminary Blood SPECIMEN COLLECTED 06/29/21 17:43 Blood Culture - Preliminary Blood SPECIMEN COLLECTED A&P Assessment and plan (1) Acute kidney injury: 1. Acute kidney injury Likely bradycardic cardiorenal syndrome Renal function recovered to cr 1.8 . Monitor strict I's and O's No indication for renal replacement therapy Avoid usual nephrotoxic agents Dose medication for GFR less than 30. 2. HTN - needs tgo take his meds- as he is confused, he is only taking some meds -use catapress patch, norvasc 10 mgm po d, aldactone 50 mgm po daily can make hydralazine iv standing- if pt is refusing meds 3. CKD - likely stage 3a from age, htn, dm 4. hypernatremia - stop lasix and metolazone- cxr is clear 5. BiPap dependent - normal cxr- per pulm 6. resp alaklosis- on eliquis. consider venous dopplers 7. hyperglycemia - gluc control pt needs nutrition Thank you for consultation Patient seen and examined via telemedicine, with the assistance of the bedside RN > 30 min spent in evaluation and mgmt of patient Status: Acute Plan see above Attestations Medical Necessity Statement*: htn on nitro drip, baron, ams Time Spent in Patient Care: 16 - 35 minutes (>than 50% of time spent in counselling and/or direct pt care on unit) . 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
[2021-06-30] MEDS: nicardipine 20 MG/200 ML PREMIX 100 MG IV ×2 (07:36→10:02)
[2021-06-30 07:49] LABS: Glucose Point of Care 217 mg/dL (70-110)
[2021-06-30] MEDS: cloNIDine 0.3 mg/24 hr Patch 1 PATCH TRANSDERMA (08:31)
[2021-06-30] MEDS: insulin lispro 100 unit/1 mL SUBCUT ×4 (08:31→20:39)
--- NOTE | 2021-06-30 08:32 | P.PN_ITS ---
Subjective Subjective: Giles remains seriously ill in the ICU. Yesterday he began to have difficulty breathing and was put on a BiPAP mask. This remains in place. He is still confused and somewhat agitated. He was also started on a nicardipine drip to better control his blood pressure since the nitroglycerin was not adequately controlling the pressure. His blood pressure is much better this morning. His hemoglobin remained stable. His kidney function remains stable. Pacemaker is functioning normally and is 100% paced at 60 bpm. Good urine output. He has been seen by nephrology. Vitals/I&O/Wt Last Vital Signs Temp 98.5 F 06/30/21 05:41 Pulse 60 06/30/21 07:30 Resp 24 H 06/30/21 07:30 BP 129/70 06/30/21 07:30 Pulse Ox 92 06/30/21 07:30 06/29/21 06/30/21 06/30/21 22:59 06:59 14:59 Intake Total 405.105 / 605.905 575.992 / 1181.897 30.833 / 30.833 Output Total 2700 / 2700 300 / 3000 Balance -2294.895 / -2094.095 275.992 / -1818.103 30.833 / 30.833 Weight last 48 hrs Weight 323 lb Weight 327 lb 11.2 oz Physical Exam Narrative: GENERAL: Confused, agitated with BiPAP in place HEENT: Exam within normal limits. NECK: Supple without jugular vein distention. The carotid upstroke is normal without bruits. BACK: Exam normal. LUNGS: Clear. HEART: Regular rate and rhythm. ABDOMEN: Benign without organomegaly or tenderness. EXTREMITIES: No edema. NEUROLOGIC: Exam not done SKIN: Unremarkable. Urinary Catheter Management: Santo: Cath Placed During This Visit: yes Reason for Continuing Indwelling Catheter: Accurate Measurement of Urinary Output in Critically Ill Patients Urinary Catheter Date of Insertion: 06/25/21 Urinary Catheter Time of Insertion: 17:28 Data : 06/29/21 04:26 06/30/21 03:25 Micro: Microbiology 06/29/21 17:41 Blood Culture - Preliminary Blood SPECIMEN COLLECTED 06/29/21 17:43 Blood Culture - Preliminary Blood SPECIMEN COLLECTED A&P Assessment and plan (1) Status post cardiac pacemaker procedure: Status: Acute (2) Altered mental status: Status: Acute (3) Acute kidney injury: Status: Acute (4) Aspiration pneumonia: Status: Acute (5) Congestive heart failure: Status: Chronic Qualifiers: Heart failure chronicity: acute on chronic Heart failure type: diast olic Qualified Code(s): I50.33 - Acute on chronic diastolic (congestive) heart failure (6) Obstructive sleep apnea: Status: Chronic (7) Hyperlipidemia: Status: Chronic Qualifiers: Hyperlipidemia type: unspecified Qualified Code(s): E78.5 - Hyperlipidemia, unspecified (8) Chronic anticoagulation: Status: Chronic (9) Diabetes mellitus, type II: Status: Chronic Qualifiers: Diabetes mellitus shelter insulin use: with shelter use Diabetes mellitus complication status: with neurologic complications Diabetes mellitus complication detail: with polyneuropathy Qualified Code(s): E11.42 - Type 2 diabetes mellitus with diabetic polyneuropathy; Z79.4 - terminal worker (current) use of insulin (10) PAD (peripheral artery disease): Status: Chronic (11) Coronary artery disease: Status: Chronic (12) Atrial fibrillation: Status: Chronic Qualifiers: Atrial fibrillation type: longstanding persistent Qualified Code(s): I48.11 - Longstanding persistent atrial fibrillation (13) Accelerated hypertension: Status: Acute Attestations Medical Necessity Statement*: Cardiac status remains stable. Pacemaker functioning normally. Urine output adequate. Creatinine stable. Biggest problem is his respiratory status. Remains on BiPAP. Coding Level of Care Code Established Pt Acute Energy Conservation Engineer for g Fwd Patient Type Established History Comprehensive Exam Comprehensive Medical Decision Making High Complexity Diagnoses Status post cardiac pacemaker procedure Z95.0 Altered mental status R41.82 Acute kidney injury N17.9 Aspiration pneumonia J69.0 Congestive heart failure I50.33 Heart failure chronicity: acute on chronic Heart failure type: diastolic Obstructive sleep apnea G47.33 Hyperlipidemia E78.5 Hyperlipidemia type: unspecified Chronic anticoagulation Z79.01 Diabetes mellitus, type II E11.42; Z79.4 Diabetes mellitus terminal operations supervisor insulin use: with terminal operations supervisor use Diabetes mellitus complication status: with neurologic complications Diabetes mellitus complication detail: with polyneuropathy PAD (peripheral artery disease) I73.9 Coronary artery disease I25.10 Atrial fibrillation I48.11 Atrial fibrillation type: longstanding persistent Accelerated hypertension I10 Time Spent (min) 40
--- NOTE | 2021-06-30 08:36 | PC.SOCIAL ---
IMM Not Updated Pg. 2 of IMM not updated. Patient not anticipated to d/c within the next 48hours.
--- NOTE | 2021-06-30 09:43 | PC.NURSE ---
Physician rounding Dr. Fenton at bedside, observed cardine and nitro drips for HTN, no N.O. Dr. Pastor at bedside, observed patient being very lethargic and unable to arouse, approved holding PO meds at this time, advised getting precedex drip rate decreased
--- NOTE | 2021-06-30 09:48 | PC.OT ---
Patient unable to wake for OT evaluation. Nursing is aware, and discussed they have attempted to wake but there is no change.
[2021-06-30 09:50] LABS: Basophils % 0.3 %; Eosinophils # 0.1 10^3/uL (0.0-0.8); Eosinophils % 0.5 %; Hematocrit 34.1 % (42.0-52.0); Hemoglobin 11.1 g/dL (11.7-16.6); Lymphocytes # 1.3 10^3/uL (0.8-4.8); Lymphocytes % 12.9 %; Mean Corpuscular HGB Conc 32.6 g/dL (30.0-36.0); Mean Platelet Volume 11.4 fL (7.4-10.4); Monocytes # 0.7 10^3/uL (0.2-0.9); Monocytes % 7.4 %; Neutrophils # 7.78 10^3/uL (1.8-7.7); Neutrophils % 78.4 %; Nucleated Red Blood Cells % 0 %; Platelet Count 167 10^3/cmm (130-400); Red Blood Count 3.83 10^6/uL (4.1-5.3); Red Cell Distribution Width 12.8 % (12.1-15.1); White Blood Count 9.9 10^3/uL (4.0-10.0)
[2021-06-30] MEDS: nitroglycerin drip 50 MG/250 ML PREMIX 24 MG IV (10:02)
--- NOTE | 2021-06-30 11:06 | PC.SOCIAL ---
IMM Not updated Pg. 2 of IMM not updated. Patient not anticipated to discharge within the next 48hours.
[2021-06-30] MEDS: nicardipine 20 MG/200 ML PREMIX 50 MG IV ×3 (12:38→20:25)
--- NOTE | 2021-06-30 13:39 | PC.NURSE ---
patient Awake at this time, answers questions and follows commands, does not recall hospital stay up to this point, patient requested nicotine patch, Dr. Pastor approved and gave v.o. to give norvasc at this time
[2021-06-30] MEDS: nicotine 21 mg Patch 1 PATCH TRANSDERMA (13:56)
[2021-06-30] MEDS: amlodipine 10 mg Tablet PO (13:56)
--- NOTE | 2021-06-30 15:13 | P.PN_ITS ---
Subjective Subjective: -Patient was seen this morning, currently on BiPAP, does awaken, but falls back asleep, remains hypertensive throughout the night requiring nitro drip, Cardene drip, urine output over 3000 cc -Patient was reexamined this afternoon, currently on nasal cannula, alert to person, to place, not to time, he tells me he is here in the hospital because of his low heart rate, he follows commands, -Denies any alcohol use -Tells me he lives alone by himself, he does not have a next of kin Vitals/I&O/Wt Last Vital Signs Temp 98.5 F 06/30/21 05:41 Pulse 60 06/30/21 13:00 Resp 24 H 06/30/21 13:00 BP 152/73 06/30/21 13:00 Pulse Ox 91 06/30/21 13:00 06/30/21 06/30/21 06/30/21 06:59 14:59 22:59 Intake Total 575.992 / 1181.897 655.233 / 655.233 Output Total 300 / 3000 Balance 275.992 / -1818.103 655.233 / 655.233 Weight last 48 hrs Weight 146.51 kg Weight 148.642 kg Physical Exam Const: COMMON NORMALS: no acute distress ORIENTATION/CONSCIOUSNESS: Yes awake, Yes oriented to person and Yes oriented to place; not oriented to time Resp: COMMON NORMALS: normal respiratory effort, No retractions, No use of accessory muscles and clear to auscultation bilaterally AUSCULTATION: clear to auscultation bilaterally Cardio: COMMON NORMALS: regular rate, regular rhythm, S1 normal heart sound present and S2 normal heart sound present RATE: regular rate RHYTHM: regular rhythm HEART SOUNDS: S1 normal heart sound present and S2 normal heart sound present GI: COMMON NORMALS: Normal to inspection, nondistended, normoactive bowel sounds present, Soft to palpation and non-tender PALPATION: Yes Soft to palpation Extremity: COMMON NORMALS: no pedal edema Neuro: SENSORIUM/ORIENTATION: Yes oriented to person, Yes oriented to place and No oriented to time Psych: COMMON NORMALS: mental status grossly normal Urinary Catheter Management: Santo: Cath Placed During This Visit: yes Reason for Continuing Indwelling Catheter: Accurate Measurement of Urinary Output in Critically Ill Patients Urinary Catheter Date of Insertion: 06/25/21 Urinary Catheter Time of Insertion: 17:28 Data : 06/30/21 09:05 06/30/21 03:25 Micro: Microbiology 06/29/21 17:41 Blood Culture - Preliminary Blood SPECIMEN COLLECTED 06/29/21 17:43 Blood Culture - Preliminary Blood SPECIMEN COLLECTED A&P Assessment and plan (1) Aspiration pneumonia: Status: Acute (2) Acute kidney injury: Status: Acute (3) Bradycardia: Symptomatic with heart rate generally staying 20s to 40s. Not on beta-blockade due to known history of bradycardia associated with this. Only other notable medications are isosorbide and amlodipine. In talking with him he does have untreated sleep apnea, prostatic hypertrophy and increasing urinary symptoms. Presently however has significant hyperkalemia with initial level at 7.2. TSH was checked and was normal. Status: Acute (4) Hyperkalemia: Has been on potassium supplementation, also on spironolactone, losartan and has acute kidney injury compared to baseline labs, EKG with peaked T waves initially. Labs from the [place] on June 17 showed potassium of 5.0. Status: Acute (5) Acute kidney injury: On chronic kidney disease stage 2-3, BUN and creatinine at [place] on 06/17/2021 was 23/1.79. In February 2021 BUN and creatinine were 12/1.1. He is chronically on ARB, Aldactone, Lasix. Also with history of prostatic hypertrophy with worsening lower urinary tract symptoms. Has history of ureteral stone in the past also. Reports noncompliance with his water pills, increasing overall girth. Status: Acute (6) Accelerated hypertension: Chronically on amlodipine, Lasix, isosorbide, losartan and Aldactone, has not had his medications today Status: Acute (7) Congestive heart failure: Acute on chronic preserved ejection fraction last echocardiogram Status: Chronic Qualifiers: Heart failure chronicity: acute on chronic Heart failure type: diastolic Qualified Code(s): I50.33 - Acute on chronic diastolic (congestive) heart failure (8) Abnormal nuclear stress test: Per Dr. Segura clinical notes although upon review it looks like abnormalities could also be consistent with attenuation defects. This is from stress testing done in September of last year. Status: Acute (9) Coronary artery disease: Has not required previous intervention. Records indicate last arteriogram showed 55% narrowing and unclear vessel. Describes anginal type symptoms lately although this could be related to demand ischemia from impact of bradycardia Status: Chronic (10) Atrial fibrillation: Presently with slow ventricular response, chronic Status: Chronic Qualifiers: Atrial fibrillation type: longstanding persistent Qualified Code(s): I48.11 - Longstanding persistent atrial fibrillation (11) Chronic anticoagulation: Chronically on Eliquis Status: Chronic (12) Diabetes mellitus, type II: Hemoglobin A1c at the [place] June 17, 2021 was 8.0 Chronically on insulin and semaglutide Status: Chronic Qualifiers: Diabetes mellitus detention insulin use: with detention use Diabetes mellitus complication status: with neurologic complications Diabetes mellitus complication detail: with polyneuropathy Qualified Code(s): E11.42 - Type 2 diabetes mellitus with diabetic polyneuropathy; Z79.4 - half-way (current) use of insulin (13) BPH NOS w/o ur obs/LUTS: Chronically on finasteride and Flomax, describes progressive lower urinary symptoms suggestive of potential bladder outlet obstruction contributing to acute kidney injury Status: Chronic (14) Calculus of proximal ureter: Has been present for some time, nonobstructing or at least in the same location last time it was evaluated, patient does not describe classic symptoms of kidney stones but at risk of having an obstructive process Status: Acute (15) Hyperlipidemia: Lipid panel checked June 17, 2021 at the [place] [facility] showed total cholesterol of 206, triglycerides of 189, HDL of 43.9 and calculated LDL of 124.3 with an HDL to total cholesterol ratio of 21.3% Chronically on statin Status: Chronic Qualifiers: Hyperlipidemia type: unspecified Qualified Code(s): E78.5 - Hyperlipidemia, unspecified (16) Obstructive sleep apnea: Does not wear CPAP by choice Status: Chronic (17) BMI 40.0-44.9, adult: Status: Acute (18) Nicotine dependence, chewing tobacco, with other nicotine-induced disorders : Status: Chronic (19) Altered mental status: Status: Acute Plan Acute hyponatremia, serum sodium 129, likely secondary to diuresis, hold diuresis for today Acute symptomatic bradycardia -Status post pacemaker placement -Dr. Fernandez on consult Full code Protonix for GI prophylaxis On Eliquis for DVT prophylaxis Altered mental status, likely secondary to aspiration pneumonia, hypoxia, hypertensive encephalopathy -Much more alert today to person, to place, answers questions, follows commands -Wean nitro drip, wean Cardene drip for hypertensive emergency -Continue Zosyn for antibiotic coverage -CT of the head within normal limits -Blood cultures, urine cultures -Aspiration precautions, keep n.p.o. -Had clonidine, hydralazine, minoxidil, Norvasc -Zyprexa, Ativan agitation Acute respiratory failure, hypoxia, -Concerns for aspiration on Zosyn -Has a history of severe diastolic CHF, requiring multiple hospitalizations --3.5 L, hold diuresis for today -Status post extubation 06/28/2021, requiring BiPAP therapy DANITZA, 1.8, elevated CPK, has a history of rhabdomyolysis Hyperkalemia, resolved, continue to monitor History of atrial fibrillation, on Eliquis, resume Eliquis Type II diabetes mellitus, low-dose sliding scale History of CVA, monitor History of CAD Hypertension, hold home medications Peripheral arterial disease, bilateral extremities are much more pink, flushed, DP PT pulses palpable bilateral lower extremities are bluish discolored, DP PT pulses barely palpable, likely secondary to bradycardia, however cannot rule out peripheral arterial disease will do ultrasound waveforms, Doppler pulses Attestations Medical Necessity Statement*: Patient requires hospitalization for acute respiratory failure, acute encephalopathy, sinus bradycardia, hypernatremia, ICU mission, critical care time spent over 25 minutes Coding Level of Care Code Acute Network Engineering Advisor for [facility] Fwd Diagnoses Aspiration pneumonia J69.0 Acute kidney injury N17.9 Bradycardia R00.1 Hyperkalemia E87.5 Acute kidney injury N17.9 Accelerated hypertension I10 Congestive heart failure I50.33 Heart failure chronicity: acute on chronic Heart failure type: diastolic Abnormal nuclear stress test R94.39 Coronary artery disease I25.10 Atrial fibrillation I48.11 Atrial fibrillation type: longstanding persistent Chronic anticoagulation Z79.01 Diabetes mellitus, type II E11.42; Z79.4 Diabetes mellitus joint terminal attack controller insulin use: with joint terminal attack controller use Diabetes mellitus complication status: with neurologic complications Diabetes mellitus complication detail: with polyneuropathy BPH NOS w/o ur obs/LUTS N40.0 Calculus of proximal ureter N20.1 Hyperlipidemia E78.5 Hyperlipidemia type: unspecified Obstructive sleep apnea G47.33 BMI 40.0-44.9, adult Z68.41 Nicotine dependence, chewing tobacco, with other nicotine-induced disorders F17.228 Altered mental status R41.82
[2021-06-30] MEDS: minoxidil 10 mg Tablet 5 MG PO (16:05)
[2021-06-30] MEDS: spironolactone 25 mg Tablet 50 MG PO (16:05)
[2021-06-30] MEDS: hyDRALAzine 25 mg Tablet PO ×2 (16:05→20:28)
[2021-06-30] MEDS: metoprolol tartrate 25 mg Tablet PO (16:06)
[2021-06-30 18:03] LABS: Glucose Point of Care 161 mg/dL (70-110)
[2021-06-30 18:03] LABS: Glucose Point of Care 241 mg/dL (70-110)
[2021-06-30] MEDS: atorvastatin 40 mg Tablet PO (18:06)
[2021-06-30] MEDS: chlorhexidine gluconate 4% Btl 118 mL 1 APPLIC TOPICAL (18:07)
[2021-06-30] MEDS: apixaban 5 mg Tablet PO (20:28)
[2021-06-30] MEDS: OLANZapine 5 mg TABLET PO (20:28)
[2021-06-30 20:54] LABS: Glucose Point of Care 155 mg/dL (70-110)
[2021-06-30] MEDS: nitroglycerin drip 50 MG/250 ML PREMIX 18 MG IV (22:10)
[2021-06-30] MEDS: nicardipine 20 MG/200 ML PREMIX 150 MG IV ×2 (22:11→23:24)
[2021-07-01] VITALS (51 sets, daily range): BP systolic 113–211; BP diastolic 47–89; PULSE 60–62; RESP 14–34; TEMP 36.8–36.9; O2SAT 91–99; BMI 43.9
[2021-07-01] MEDS: nicardipine 20 MG/200 ML PREMIX 150 MG IV (00:47)
[2021-07-01] MEDS: metoprolol tartrate 25 mg Tablet PO (04:24)
[2021-07-01] MEDS: piperacillin-tazobactam 3.375 GM in sodium chloride 0.9% (plus) 50 ML IV ×2 (04:25→11:41)
[2021-07-01] MEDS: nicardipine 20 MG/200 ML PREMIX 50 MG IV ×2 (04:31→08:38)
[2021-07-01 05:35] LABS: Basophils % 0.2 %; Eosinophils # 0.2 10^3/uL (0.0-0.8); Eosinophils % 0.9 %; Hematocrit 32.2 % (42.0-52.0); Hemoglobin 10.4 g/dL (11.7-16.6); Lymphocytes # 1.8 10^3/uL (0.8-4.8); Mean Corpuscular HGB Conc 32.3 g/dL (30.0-36.0); Mean Corpuscular Hemoglobin 28.7 pg (28.0-34.0); Mean Corpuscular Volume 88.7 fl (80-94); Mean Platelet Volume 10.7 fL (7.4-10.4); Monocytes # 1.2 10^3/uL (0.2-0.9); Monocytes % 6.9 %; Neutrophils # 13.49 10^3/uL (1.8-7.7); Neutrophils % 80.5 %; Nucleated Red Blood Cells % 0 %; Platelet Count 183 10^3/cmm (130-400); Red Blood Count 3.63 10^6/uL (4.1-5.3); Red Cell Distribution Width 12.6 % (12.1-15.1); White Blood Count 16.8 10^3/uL (4.0-10.0)
[2021-07-01 05:41] LABS: Alanine Aminotransferase 16 U/L (0-41); Alkaline Phosphatase 57 IU/L (40-130); Anion Gap 17.5 (5-19); Aspartate Amino Transferase 22 U/L (0-40); Blood Urea Nitrogen 42 mg/dL (8-23); Calcium 8.1 mg/dL (8.5-10.5); Carbon Dioxide 22 mmol/L (22-29); Chloride 109 mmol/L (98-107); Globulin 2.7 g/dL (1.3-4.6); Glucose 205 mg/dL (65-115); Magnesium 1.9 mg/dL (1.7-2.3); Osmolality Calculated 316 mOsm/kg (285-295); Phosphorus 3.3 mg/dL (2.5-4.5); Potassium 3.5 mmol/L (3.5-5.1); Sodium 145 mmol/L (136-145); Total Bilirubin 0.6 mg/dL (0.15-1.2); Total Protein 5.7 g/dL (6.6-8.7)
[2021-07-01] MEDS: docusate sodium 10 mg/mL (5ml) Liq 100 MG PO (08:20)
[2021-07-01] MEDS: amlodipine 10 mg Tablet PO (08:20)
[2021-07-01] MEDS: apixaban 5 mg Tablet PO ×2 (08:20→20:07)
[2021-07-01] MEDS: folic acid 1 mg Tablet PO (08:20)
[2021-07-01] MEDS: aspirin 81 mg EC Tablet PO (08:20)
[2021-07-01] MEDS: insulin lispro 100 unit/1 mL SUBCUT ×4 (08:24→20:13)
[2021-07-01] MEDS: multivitamin therapeutic Tablet 1 TAB PO (08:24)
[2021-07-01] MEDS: hyDRALAzine 25 mg Tablet PO (08:24)
[2021-07-01] MEDS: thiamine 100 mg Tablet PO (08:25)
[2021-07-01] MEDS: pantoprazole 40 mg SDV IVP (08:25)
[2021-07-01] MEDS: FUROsemide 10 mg/mL SDV 4mL 40 MG IVP (08:42)
[2021-07-01] MEDS: metOLazone 5 MG Tablet 10 MG PO (08:42)
[2021-07-01] MEDS: potassium chloride ER 20 mEq Tablet 40 MEQ PO (08:42)
--- NOTE | 2021-07-01 08:57 | P.PN_ITS ---
Subjective Subjective: awake, alert feels better. he states that he has resistant htn for years. c/o joint pain. no n/v/f/c/heredia/d Medications: Reviewed: Yes Medication Review Details: Current Medications Acetaminophen (Acetaminophen 325 Mg Tablet) 650 mg PO Q6H PRN PRN Reason: MILD PAIN Last Admin: 06/28/21 19:29 Dose: 650 mg Documented by: Amlodipine Besylate (Amlodipine 10 Mg Tablet) 10 mg PO DAILY [facility] Last Admin: 07/01/21 08:20 Dose: 10 mg Documented by: Apixaban (Apixaban 5 Mg Tablet) 5 mg PO BID@0900,2100 [facility] Last Admin: 07/01/21 08:20 Dose: 5 mg Documented by: Aspirin (Aspirin 81 Mg Ec Tablet) 81 mg PO DAILY [facility] Last Admin: 07/01/21 08:20 Dose: 81 mg Documented by: Atorvastatin Calcium (Atorvastatin 40 Mg Tablet) 40 mg PO QPM [facility] Last Admin: 06/30/21 18:06 Dose: 40 mg Documented by: Chlorhexidine Gluconate (Chlorhexidine Gluconate 4% Btl 118 Ml) 1 applic TOPICAL BID [facility] Last Admin: 07/01/21 08:13 Dose: Not Given Documented by: Clonidine HCl (Clonidine 0.3 Mg/24 Hr Patch) 1 patch TRANSDERMA Q7D [facility] Last Admin: 06/30/21 08:31 Dose: 1 patch Documented by: Dextrose (Dextrose 50% Syringe 50 Ml) 25 ml IVP ONCE PRN; Protocol PRN Reason: hypoglycemia protocol Dextrose (Dextrose 50% Syringe 50 Ml) 50 ml IVP PRN PRN; Protocol PRN Reason: hypoglycemia protocol Docusate Sodium (Docusate Sodium 10 Mg/Ml (5ml) Liq) 100 mg PO BID [facility] Last Admin: 07/01/21 08:20 Dose: 100 mg Documented by: Folic Acid (Folic Acid 1 Mg Tablet) 1 mg PO DAILY [facility] Last Admin: 07/01/21 08:20 Dose: 1 mg Documented by: Glucagon (Glucagon 1 Mg/Ml Inj 1 Ml) 1 mg IM ONCE PRN; Protocol PRN Reason: Adult Acute Hypoglycemia Prot. Hydralazine HCl (Hydralazine 20 Mg/Ml Inj 1 Ml) 10 mg IVP Q4H PRN PRN Reason: Nausea and Vomiting, Severe Last Admin: 06/29/21 21:21 Dose: 10 mg Documented by: Hydralazine HCl (Hydralazine 25 Mg Tablet) 25 mg PO TID [facility] Last Admin: 07/01/21 08:24 Dose: 25 mg Documented by: Dextrose (D5w) 500 mls @ 100 mls/hr IV ONCE PRN; Protocol PRN Reason: Adult Acute Hypoglycemia Prot Piperacillin Sod/Tazobactam (Sod 3.375 gm/ Sodium Chloride) 50 mls @ 12.5 mls/hr IV Q8H [facility] Last Infusion: 07/01/21 08:38 Dose: Infused Documented by: Nitroglycerin/Dextrose (Nitroglycerin Drip) 50 mg in 250 mls @ 0 mls/hr IV .Q0M LC; Protocol Last Titration: 07/01/21 00:58 Dose: 80 mcg/min, 24 mls/hr Documented by: Nicardipine/Sodium Chloride (Cardene) 20 mg in 200 mls @ 0 mls/hr IV .Q0M LC; Protocol Last Admin: 07/01/21 08:38 Dose: 5 mg/hr, 50 mls/hr Documented by: Insulin Human Lispro (Insulin Lispro 100 Unit/1 Ml) 0 unit SUBCUT BEDTIME [facility]; Protocol Last Admin: 06/30/21 20:39 Dose: 2 unit Documented by: Insulin Human Lispro (Insulin Lispro 100 Unit/1 Ml) 0 unit SUBCUT TIDWM [facility]; Protocol Last Admin: 07/01/21 08:24 Dose: 6 unit Documented by: Labetalol HCl (Labetalol 5 Mg/Ml Sdv 20ml) 10 mg IVP Q4H PRN PRN Reason: SBP>180 or DBP>90 hold if HR<60 Last Admin: 06/29/21 22:18 Dose: 10 mg Documented by: Lorazepam (Lorazepam 2 Mg/Ml Inj 1 Ml) 1 mg IVP Q2H PRN PRN Reason: ANXIETY Last Admin: 06/29/21 20:22 Dose: 1 mg Documented by: Metoprolol Tartrate (Metoprolol Tartrate 25 Mg Tablet) 25 mg PO Q12H [facility] Last Admin: 07/01/21 04:24 Dose: 25 mg Documented by: Minoxidil (Minoxidil 10 Mg Tablet) 5 mg PO Q24H [facility] Last Admin: 06/30/21 16:05 Dose: 5 mg Documented by: Multivitamins Therapeutic (Multivitamin Therapeutic Tablet) 1 tab PO DAILY [facility] Last Admin: 07/01/21 08:24 Dose: 1 tab Documented by: Nicotine (Nicotine 21 Mg Patch) 1 patch TRANSDERMA DAILY [facility] Last Admin: 07/01/21 08:24 Dose: 1 patch Documented by: Olanzapine (Olanzapine 5 Mg Tablet) 5 mg PO BEDTIME [facility] Last Admin: 06/30/21 20:28 Dose: 5 mg Documented by: Ondansetron HCl (Ondansetron 2 Mg/Ml Sdv 2 Ml) 4 mg IVP Q8H PRN PRN Reason: NAUSEA AND VOMITING Pantoprazole Sodium (Pantoprazole 40 Mg Sdv) 40 mg IVP DAILY [facility] Last Admin: 07/01/21 08:25 Dose: 40 mg Documented by: Spironolactone (Spironolactone 25 Mg Tablet) 50 mg PO Q24H [facility] Last Admin: 06/30/21 16:05 Dose: 50 mg Documented by: Thiamine Mononitrate (Thiamine 100 Mg Tablet) 100 mg PO DAILY [facility] Last Admin: 07/01/21 08:25 Dose: 100 mg Documented by: Vitals/I&O/Wt Last Vital Signs Temp 98.5 F 07/01/21 02:47 Pulse 60 07/01/21 06:00 Resp 30 H 07/01/21 06:00 BP 174/63 07/01/21 06:00 Pulse Ox 97 07/01/21 06:00 06/30/21 07/01/21 07/01/21 22:59 06:59 14:59 Intake Total 2699.167 / 3354.400 1162.9 / 4517.300 250 / 250 Output Total 175 / 175 300 / 475 Balance 2524.167 / 3179.400 862.9 / 4042.300 250 / 250 Weight last 48 hrs Weight 151.092 kg Weight 146.51 kg Physical Exam Narrative: comfortable in bed, NARD on cardene and nitro drips heent- nc/at, eomi neck supple lungs clear b/l heart -paced rhythm + s1, s2 abd soft, nt, nd, + bs ext 1+ edema, poor pulses rt foot w/ an ischemic toe neuro- awake, alert oriented Urinary Catheter Management: Santo: Cath Placed During This Visit: yes Reason for Continuing Indwelling Catheter: Accurate Measurement of Urinary Output in Critically Ill Patients Urinary Catheter Date of Insertion: 06/25/21 Urinary Catheter Time of Insertion: 17:28 Data : 07/01/21 05:10 07/01/21 05:10 Micro: Microbiology 06/30/21 05:30 Urine Culture - Preliminary Urine,Clean Catch 06/29/21 17:43 Blood Culture - Preliminary Blood NEGATIVE TO DATE 06/29/21 17:41 Blood Culture - Preliminary Blood NEGATIVE TO DATE A&P Assessment and plan (1) Acute kidney injury: 1. Acute kidney injury Likely bradycardic cardiorenal syndrome Renal function recovered to cr 1.8 -1.9 mg/dl. Monitor strict I's and O's Avoid usual nephrotoxic agents Dose medication for CKD stage 3 b/4. 2. In May at [facility] his cr was 1.8 mg/dl and k 5- giving him stage 3b/4 CKD- age, htn, dm 3. HTN - needs tgo take his meds- as he is confused, he is only taking some meds -use catapress patch, norvasc 10 mgm po d, aldactone 50 mgm po bidy, hydralazine 50 tid, minoxidil 5 daily -ua negative not c/w vasculitis 4. hypernatremia - improving off of lasix and metolazone- cxr is clear 5.. resp alaklosis- on eliquis. consider venous dopplers 7. hyperglycemia - gluc control leukocytosis pt needs nutrition Thank you for consultation Patient seen and examined via telemedicine, with the assistance of the bedside RN > 30 min spent in evaluation and mgmt of patient Status: Acute Plan see above Attestations Medical Necessity Statement*: resistant htn Time Spent in Patient Care: 16 - 35 minutes (>than 50% of time spent in counselling and/or direct pt care on unit) . Coding Level of Care Code Acute [facility] for [facility] Diagnoses Acute kidney injury N17.9
--- NOTE | 2021-07-01 09:15 | PM.PN ---
Subjective Subjective: Giles is sitting on the side of the bed. His respiratory status has improved. His sensorium seems to be improving. He is not completely disoriented and confused. He tells me that he has to use the bathroom. The difficulty has been controlling his blood pressure. The arterial line is out. The nicardipine was controlling it but we are about to run out of the nicardipine for intravenous infusion. Currently he is on a nitroglycerin drip at 100 mcg/min, amlodipine 10 mg daily, clonidine patch, minoxidil 5 mg daily, metoprolol tartrate 25 mg twice daily, spironolactone 50 mg twice daily, hydralazine 50 mg 3 times daily. Nephrology is manipulating his blood pressure medication Vitals/I&O/Wt Last Vital Signs Temp 98.5 F 07/01/21 02:47 Pulse 60 07/01/21 06:00 Resp 30 H 07/01/21 06:00 BP 174/63 07/01/21 06:00 Pulse Ox 97 07/01/21 06:00 06/30/21 07/01/21 07/01/21 22:59 06:59 14:59 Intake Total 2699.167 / 3354.400 1162.9 / 4517.300 250 / 250 Output Total 175 / 175 300 / 475 Balance 2524.167 / 3179.400 862.9 / 4042.300 250 / 250 Weight last 48 hrs Weight 333 lb 1.6 oz Weight 323 lb Physical Exam Narrative: GENERAL: In general he is in a chair and seems to be clearing mentally HEENT: Exam within normal limits. [] NECK: Supple without jugular vein distention. The carotid upstroke is normal without bruits. [] BACK: Exam normal. [] LUNGS: Clear. [] HEART: Regular rate and rhythm. [] ABDOMEN: Benign without organomegaly or tenderness. [] EXTREMITIES: No edema. [] NEUROLOGIC: Not done SKIN: Unremarkable. [] Urinary Catheter Management: Santo: Cath Placed During This Visit: yes Reason for Continuing Indwelling Catheter: Accurate Measurement of Urinary Output in Critically Ill Patients Urinary Catheter Date of Insertion: 06/25/21 Urinary Catheter Time of Insertion: 17:28 Data : 07/01/21 05:10 07/01/21 05:10 Micro: Microbiology 06/30/21 05:30 Urine Culture - Preliminary Urine,Clean Catch 06/29/21 17:43 Blood Culture - Preliminary Blood NEGATIVE TO DATE 06/29/21 17:41 Blood Culture - Preliminary Blood NEGATIVE TO DATE A&P Assessment and plan (1) Status post cardiac pacemaker procedure: Status: Acute (2) Altered mental status: Status: Acute (3) Acute kidney injury: Status: Acute (4) Aspiration pneumonia: Status: Acute (5) Congestive heart failure: Status: Chronic Qualifiers: Heart failure chronicity: acute on chronic Heart failure type: diastolic Qualified Code(s): I50.33 - Acute on chronic diastolic (congestive) heart failure (6) Obstructive sleep apnea: Status: Chronic (7) Hyperlipidemia: Status: Chronic Qualifiers: Hyperlipidemia type: unspecified Qualified Code(s): E78.5 - Hyperlipidemia, unspecified (8) Chronic anticoagulation: Status: Chronic (9) Diabetes mellitus, type II: Status: Chronic Qualifiers: Diabetes mellitus ferry terminal agent insulin use: with ferry terminal agent use Diabetes mellitus complication status: with neurologic complications Diabetes mellitus complication detail: with polyneuropathy Qualified Code(s): E11.42 - Type 2 diabetes mellitus with diabetic polyneuropathy; Z79.4 - vermin exterminator (current) use of insulin (10) Nicotine dependence, chewing tobacco, with other nicotine-induced disorders: Status: Chronic (11) PAD (peripheral artery disease): Status: Chronic (12) Coronary artery disease: Status: Chronic (13) Acute kidney injury: Status: Acute (14) Atrial fibrillation: Status: Chronic Qualifiers: Atrial fibrillation type: longstanding persistent Qualified Code(s): I48.11 - Longstanding persistent atrial fibrillation (15) Chronic diastolic heart failure: Status: Chronic (16) Accelerated hypertension: Status: Acute Plan He remains 100% paced. Nephrology has been manipulating his antihypertensives so I will not make any changes. His blood pressure is still quite high. His sensorium appears to be clearing. Attestations Medical Necessity Statement*: Requires ICU care for management of multiple medical problems. Coding Level of Care Code Established Pt Acute Sales And Service Advisor for [facility] Patient Type Established History Comprehensive Exam Comprehensive Medical Decision Making High Complexity Diagnoses Status post cardiac pacemaker procedure Z95.0 Altered mental status R41.82 Acute kidney injury N17.9 Aspiration pneumonia J69.0 Congestive heart failure I50.33 Heart failure chronicity: acute on chronic Heart failure type: diastolic Obstructive sleep apnea G47.33 Hyperlipidemia E78.5 Hyperlipidemia type: unspecified Chronic anticoagulation Z79.01 Diabetes mellitus, type II E11.42; Z79.4 Diabetes mellitus senior living insulin use: with senior living use Diabetes mellitus complication status: with neurologic complications Diabetes mellitus complication detail: with polyneuropathy Nicotine dependence, chewing tobacco, with other nicotine-induced disorders F17.228 PAD (peripheral artery disease) I73.9 Coronary artery disease I25.10 Acute kidney injury N17.9 Atrial fibrillation I48.11 Atrial fibrillation type: longstanding persistent Chronic diastolic heart failure I50.32 Accelerated hypertension I10 Time Spent (min) 30
[2021-07-01 10:24] LABS: Glucose Point of Care 196 mg/dL (70-110)
[2021-07-01] MEDS: nitroglycerin drip 50 MG/250 ML PREMIX 30 MG IV (11:42)
--- NOTE | 2021-07-01 12:10 | PC.CHAP ---
Pastoral Care Encounter/Spiritual Assessment Type of Contact [] Declined regional driver visit [] Patient/Family/Request visit [] Outpatient visit [] Follow-up visit [] Physician referral [] Code/Alert [x] Routine visit [] Staff referral [] Actively dying [] Patient sleeping [] Family support [] [] Out of room [] Palliative care [] [] Receiving care in room [] Pre-surgical visit [] Trauma [] Long length of stay [x] ICU visit [x] Other: setting up in chair.. Relational/Emotional Strength [] Patient feels connected with others/family/visitors/staff [] Distress [] Loneliness/isolation [] Abandonment Spirituality of Patient [] Person of Christina [] Attends Presybeterian of their [place] [] Believes in Prayer [] Reads Bible or Baptist materials [] There are Spiritual issues to be addressed Dietitian Teacher Interventions [x] Prayer [] Active listening [] Non-anxious presence [] Spiritual/emotional support [] Crisis/trauma care [] Spiritual counseling [] Bereavement support [] Provided bereavement packet [] Provided Bible/devotional materials [] Provided toy/stuffed animal, coloring book to patient or family member [] Provided Communion [] Anointing/Mobile [] Salvation [x] Completed spiritual assessment [] Other: Impact on Illness or Injury [] Angry [] Fearful [] Anxious [] Often cries [] Exhaustion [] Unable to work [] Unable to attend sabianist [] Unable to walk/stand [] Unable to read [] Unable to drive [] Unable to eat/drink [] Unable to sleep [] Unable to be with family [] Patient intubated [] Other: Summary Time spent with patient
[2021-07-01 12:42] LABS: Glucose Point of Care 245 mg/dL (70-110)
--- NOTE | 2021-07-01 14:27 | PM.PN ---
Subjective Subjective: Patient was seen this morning, sitting up to chair, he has generalized weakness, remains on Cardene drip, remains on nitro drip, remains hypertensive, alert to person, to place, not to time, follows commands, denies any chest pain Vitals/I&O/Wt Last Vital Signs Temp 98.5 F 07/01/21 02:47 Pulse 61 07/01/21 14:00 Resp 28 H 07/01/21 14:00 BP 161/79 07/01/21 14:00 Pulse Ox 95 07/01/21 14:00 06/30/21 07/01/21 07/01/21 22:59 06:59 14:59 Intake Total 2699.167 / 3354.400 1162.9 / 4517.300 1328.767 / 1328.767 Output Total 175 / 175 300 / 475 Balance 2524.167 / 3179.400 862.9 / 4042.300 1328.767 / 1328.767 Weight last 48 hrs Weight 151.092 kg Weight 146.51 kg Physical Exam Const: COMMON NORMALS: no acute distress and patient oriented x3 Resp: COMMON NORMALS: normal respiratory effort, No retractions, No use of accessory muscles and clear to auscultation bilaterally AUSCULTATION: clear to auscultation bilaterally Cardio: COMMON NORMALS: regular rate, regular rhythm, S1 normal heart sound present and S2 normal heart sound present RATE: regular rate RHYTHM: regular rhythm HEART SOUNDS: S1 normal heart sound present and S2 normal heart sound present GI: COMMON NORMALS: Normal to inspection, nondistended, normoactive bowel sounds present, Soft to palpation and non-tender PALPATION: Yes Soft to palpation Extremity: COMMON NORMALS: no pedal edema Neuro: COMMON NORMALS: patient oriented x3 Psych: COMMON NORMALS: mental status grossly normal Urinary Catheter Management: Santo: Cath Placed During This Visit: yes Reason for Continuing Indwelling Catheter: Accurate Measurement of Urinary Output in Critically Ill Patients Urinary Catheter Date of Insertion: 06/25/21 Urinary Catheter Time of Insertion: 17:28 Data : 07/01/21 05:10 07/01/21 05:10 Micro: Microbiology 06/30/21 05:30 Urine Culture - Preliminary Urine,Clean Catch 06/29/21 17:43 Blood Culture - Preliminary Blood NEGATIVE TO DATE 06/29/21 17:41 Blood Culture - Preliminary Blood NEGATIVE TO DATE A&P Assessment and plan (1) Aspiration pneumonia: Status: Acute (2) Acute kidney injury: Status: Acute (3) Bradycardia: Symptomatic with heart rate generally staying 20s to 40s. Not on beta-blockade due to known history of bradycardia associated with this. Only other notable medications are isosorbide and amlodipine. In talking with him he does have untreated sleep apnea, prostatic hypertrophy and increasing urinary symptoms. Presently however has significant hyperkalemia with initial level at 7.2. TSH was checked and was normal. Status: Acute (4) Hyperkalemia: Has been on potassium supplementation, also on spironolactone, losartan and has acute kidney injury compared to baseline labs, EKG with peaked T waves initially. Labs from the [facility] on June 17 showed potassium of 5.0. Status: Acute (5) Acute kidney injury: On chronic kidney disease stage 2-3, BUN and creatinine at [facility] on 06/17/2021 was 23/1.79. In February 2021 BUN and creatinine were 12/1.1. He is chronically on ARB, Aldactone, Lasix. Also with history of prostatic hypertrophy with worsening lower urinary tract symptoms. Has history of ureteral stone in the past also. Reports noncompliance with his water pills, increasing overall girth. Status: Acute (6) Accelerated hypertension: Chronically on amlodipine, Lasix, isosorbide, losartan and Aldactone, has not had his medications today Status: Acute (7) Congestive heart failure: Acute on chronic preserved ejection fraction last echocardiogram Status: Chronic Qualifiers: Heart failure chronicity: acute on chronic Heart failure type: diastolic Qualified Code(s): I50.33 - Acute on chronic diastolic (congestive) heart failure (8) Abnormal nuclear stress test: Per Dr. Segura clinical notes although upon review it looks like abnormalities could also be consistent with attenuation defects. This is from stress testing done in September of last year. Status: Acute (9) Coronary artery disease: Has not required previous intervention. Records indicate last arteriogram showed 55% narrowing and unclear vessel. Describes anginal type symptoms lately although this could be related to demand ischemia from impact of bradycardia Status: Chronic (10) Atrial fibrillation: Presently with slow ventricular response, chronic Status: Chronic Qualifiers: Atrial fibrillation type: longstanding persistent Qualified Code(s): I48.11 - Longstanding persistent atrial fibrillation (11) Chronic anticoagulation: Chronically on Eliquis Status: Chronic (12) Diabetes mellitus, type II: Hemoglobin A1c at the [facility] June 17, 2021 was 8.0 Chronically on insulin and semaglutide Status: Chronic Qualifiers: Diabetes mellitus residential insulin use: with journalists and other writers use Diabetes mellitus complication status: with neurologic complications Diabetes mellitus complication detail: with polyneuropathy Qualified Code(s): E11.42 - Type 2 diabetes mellitus with diabetic polyneuropathy; Z79.4 - [facility] (current) use of insulin (13) BPH NOS w/o ur obs/LUTS: Chronically on finasteride and Flomax, describes progressive lower urinary symptoms suggestive of potential bladder outlet obstruction contributing to acute kidney injury Status: Chronic (14) Calculus of proximal ureter: Has been present for some time, nonobstructing or at least in the same location last time it was evaluated, patient does not describe classic symptoms of kidney stones but at risk of having an obstructive process Status: Acute (15) Hyperlipidemia: Lipid panel checked June 17, 2021 at the [facility] showed total cholesterol of 206, triglycerides of 189, HDL of 43.9 and calculated LDL of 124.3 with an HDL to total cholesterol ratio of 21.3% Chronically on statin Status: Chronic Qualifiers: Hyperlipidemia type: unspecified Qualified Code(s): E78.5 - Hyperlipidemia, unspecified (16) Obstructive sleep apnea: Does not wear CPAP by choice Status: Chronic (17) BMI 40.0-44.9, adult: Status: Acute (18) Nicotine dependence, chewing tobacco, with other nicotine-induced disorders: Status: Chronic (19) Altered mental status: Status: Acute Plan Acute hypertensive urgency -Remains on Cardene drip, nitro drip, attempt to wean off -Losartan 50 twice daily -Metoprolol 50 twice daily -Minoxidil 5 every 12 hours -Clonidine patch 0.3 q. 7 days -Hydralazine 50 3 times daily -Fluid overload, wheezing on exam, 1+ pitting edema, creatinine 1.9, 1 dose of Lasix and metolazone today monitor kidney function Acute hyponatremia, resolved Acute symptomatic bradycardia -Status post pacemaker placement -Dr. Fernandez on consult Full code Protonix for GI prophylaxis On Eliquis for DVT prophylaxis Altered mental status, likely secondary to aspiration pneumonia, hypoxia, hypertensive encephalopathy -Much more alert today to person, to place, answers questions, follows commands -Wean nitro drip, wean Cardene drip for hypertensive emergency -Stop Zosyn -CT of the head within normal limits -Blood cultures, urine cultures -Clear liquid diet, advance as tolerated -Zyprexa, Ativan agitation Acute respiratory failure, hypoxia, -Switch to Augmentin -Has a history of severe diastolic CHF, requiring multiple hospitalizations --3.5 L, hold diuresis for today -Status post extubation 06/28/2021, requiring BiPAP therapy DANITZA, 1.9, elevated CPK, has a history of rhabdomyolysis Hyperkalemia, resolved, continue to monitor History of atrial fibrillation, on Eliquis, resume Eliquis Type II diabetes mellitus, low-dose sliding scale History of CVA, monitor History of CAD Hypertension, hold home medications Peripheral arterial disease, bilateral extremities are much more pink, flushed, DP PT pulses palpable bilateral lower extremities are bluish discolored, DP PT pulses barely palpable, likely secondary to bradycardia, however cannot rule out peripheral arterial disease will do ultrasound waveforms, Doppler pulses Attestations Medical Necessity Statement*: Patient requires hospitalization due to hypertensive urgency, critical care time spent over 35 minutes Coding Level of Care Code Acute Ground Support Agent for [facility] Diagnoses Aspiration pneumonia J69.0 Acute kidney injury N17.9 Bradycardia R00.1 Hyperkalemia E87.5 Acute kidney injury N17.9 Accelerated hypertension I10 Congestive heart failure I50.33 Heart failure chronicity: acute on chronic Heart failure type: diastolic Abnormal nuclear stress test R94.39 Coronary artery disease I25.10 Atrial fibrillation I48.11 Atrial fibrillation type: longstanding persistent Chronic anticoagulation Z79.01 Diabetes mellitus, type II E11.42; Z79.4 Diabetes mellitus journalists and other writers insulin use: with journalists and other writers use Diabetes mellitus complication status: with neurologic complications Diabetes mellitus complication detail: with polyneuropathy BPH NOS w/o ur obs/LUTS N40.0 Calculus of proximal ureter N20.1 Hyperlipidemia E78.5 Hyperlipidemia type: unspecified Obstructive sleep apnea G47.33 BMI 40.0-44.9, adult Z68.41 Nicotine dependence, chewing tobacco, with other nicotine-induced disorders F17.228 Altered mental status R41.82
[2021-07-01] MEDS: hyDRALAzine 25 mg Tablet 50 MG PO ×2 (14:38→20:07)
[2021-07-01] MEDS: hyDRALAzine 20 mg/mL INJ 1 mL 10 MG IVP (16:49)
[2021-07-01] MEDS: atorvastatin 40 mg Tablet PO (17:30)
[2021-07-01] MEDS: amoxicillin-clav 875-125 mg Tablet 1 TAB PO (17:30)
[2021-07-01] MEDS: spironolactone 25 mg Tablet 50 MG PO (17:31)
[2021-07-01] MEDS: metoprolol tartrate 50 mg Tablet PO (17:31)
[2021-07-01] MEDS: minoxidil 10 mg Tablet 5 MG PO (17:31)
[2021-07-01 17:35] LABS: Glucose Point of Care 254 mg/dL (70-110)
[2021-07-01] MEDS: nitroglycerin drip 50 MG/250 ML PREMIX 27 MG IV (20:07)
[2021-07-01] MEDS: OLANZapine 5 mg TABLET PO (20:07)
[2021-07-01 20:16] LABS: Glucose Point of Care 271 mg/dL (70-110)
[2021-07-02] VITALS (51 sets, daily range): BP systolic 116–181; BP diastolic 40–101; PULSE 59–79; RESP 15–32; TEMP 36.7–37.5; O2SAT 89–98
--- NOTE | 2021-07-02 03:32 | PC.NURSE ---
Nicotine patch removed from left shoulder and discarded.
[2021-07-02 04:00] LABS: Basophils % 0.1 %; Eosinophils # 0.1 10^3/uL (0.0-0.8); Eosinophils % 0.3 %; Hematocrit 32.8 % (42.0-52.0); Hemoglobin 10.7 g/dL (11.7-16.6); Lymphocytes % 10.1 %; Mean Corpuscular HGB Conc 32.6 g/dL (30.0-36.0); Mean Corpuscular Hemoglobin 29.2 pg (28.0-34.0); Mean Corpuscular Volume 89.6 fl (80-94); Monocytes # 1.3 10^3/uL (0.2-0.9); Monocytes % 6.2 %; Neutrophils # 16.54 10^3/uL (1.8-7.7); Neutrophils % 82.6 %; Nucleated Red Blood Cells % 0 %; Platelet Count 214 10^3/cmm (130-400); Red Blood Count 3.66 10^6/uL (4.1-5.3); Red Cell Distribution Width 12.7 % (12.1-15.1); White Blood Count 20.1 10^3/uL (4.0-10.0)
[2021-07-02 05:02] LABS: Alanine Aminotransferase 18 U/L (0-41); Albumin Level 3.2 g/dL (3.5-5.2); Alkaline Phosphatase 65 IU/L (40-130); Anion Gap 17.6 (5-19); Aspartate Amino Transferase 37 U/L (0-40); Blood Urea Nitrogen 48 mg/dL (8-23); Calcium 8.2 mg/dL (8.5-10.5); Carbon Dioxide 22 mmol/L (22-29); Chloride 106 mmol/L (98-107); Globulin 2.8 g/dL (1.3-4.6); Glucose 248 mg/dL (65-115); Magnesium 2.1 mg/dL (1.7-2.3); NT Pro B Type Natriuretic Pept 4252 pg/mL (0-125); Osmolality Calculated 315 mOsm/kg (285-295); Phosphorus 3.8 mg/dL (2.5-4.5); Potassium 3.6 mmol/L (3.5-5.1); Sodium 142 mmol/L (136-145); Total Bilirubin 0.5 mg/dL (0.15-1.2)
[2021-07-02 05:04] LABS: Creatine Phosphokinase 837 U/L (39-308)
[2021-07-02] MEDS: minoxidil 10 mg Tablet 5 MG PO ×2 (05:25→17:41)
[2021-07-02] MEDS: metoprolol tartrate 50 mg Tablet PO (05:25)
[2021-07-02] MEDS: nitroglycerin drip 50 MG/250 ML PREMIX 27 MG IV (06:03)
[2021-07-02 06:17] LABS: Glucose Point of Care 227 mg/dL (70-110)
--- NOTE | 2021-07-02 06:55 | PM.PN ---
Subjective Subjective: more awake. swollen, paced. no n/v/f/c/heredia. wants christine out. has diarrhea Medications: Reviewed: Yes Medication Review Details: Current Medications Acetaminophen (Acetaminophen 325 Mg Tablet) 650 mg PO Q6H PRN PRN Reason: MILD PAIN Last Admin: 06/28/21 19:29 Dose: 650 mg Documented by: Amlodipine Besylate (Amlodipine 10 Mg Tablet) 10 mg PO DAILY [facility] Last Admin: 07/01/21 08:20 Dose: 10 mg Documented by: Amoxicillin/Clavulanate Potassium (Amoxicillin-Clav 875-125 Mg Tablet) 1 tab PO BID [facility]; Protocol Last Admin: 07/01/21 17:30 Dose: 1 tab Documented by: Apixaban (Apixaban 5 Mg Tablet) 5 mg PO BID@0900,2100 [facility] Last Admin: 07/01/21 20:07 Dose: 5 mg Documented by: Aspirin (Aspirin 81 Mg Ec Tablet) 81 mg PO DAILY [facility] Last Admin: 07/01/21 08:20 Dose: 81 mg Documented by: Atorvastatin Calcium (Atorvastatin 40 Mg Tablet) 40 mg PO QPM [facility] Last Admin: 07/01/21 17:30 Dose: 40 mg Documented by: Chlorhexidine Gluconate (Chlorhexidine Gluconate 4% Btl 118 Ml) 1 applic TOPICAL BID [facility] Last Admin: 07/01/21 16:51 Dose: Not Given Documented by: Clonidine HCl (Clonidine 0.3 Mg/24 Hr Patch) 1 patch TRANSDERMA Q7D [facility] Last Admin: 06/30/21 08:31 Dose: 1 patch Documented by: Dextrose (Dextrose 50% Syringe 50 Ml) 25 ml IVP ONCE PRN; Protocol PRN Reason: hypoglycemia protocol Dextrose (Dextrose 50% Syringe 50 Ml) 50 ml IVP PRN PRN; Protocol PRN Reason: hypoglycemia protocol Docusate Sodium (Docusate Sodium 10 Mg/Ml (5ml) Liq) 100 mg PO BID [facility] Last Admin: 07/01/21 17:23 Dose: Not Given Documented by: Folic Acid (Folic Acid 1 Mg Tablet) 1 mg PO DAILY [facility] Last Admin: 07/01/21 08:20 Dose: 1 mg Documented by: Glucagon (Glucagon 1 Mg/Ml Inj 1 Ml) 1 mg IM ONCE PRN; Protocol PRN Reason: Adult Acute Hypoglycemia Prot. Hydralazine HCl (Hydralazine 20 Mg/Ml Inj 1 Ml) 10 mg IVP Q4H PRN PRN Reason: Nausea and Vomiting, Severe Last Admin: 07/01/21 16:49 Dose: 10 mg Documented by: Hydralazine HCl (Hydralazine 25 Mg Tablet) 50 mg PO TID [facility] Last Admin: 07/01/21 20:07 Dose: 50 mg Documented by: Dextrose (D5w) 500 mls @ 100 mls/hr IV ONCE PRN; Protocol PRN Reason: Adult Acute Hypoglycemia Prot Nitroglycerin/Dextrose (Nitroglycerin Drip) 50 mg in 250 mls @ 0 mls/hr IV .Q0M [facility]; Protocol Last Admin: 07/02/21 06:03 Dose: 90 mcg/min, 27 mls/hr Documented by: Insulin Human Lispro (Insulin Lispro 100 Unit/1 Ml) 0 unit SUBCUT BEDTIME [facility]; Protocol Last Admin: 07/01/21 20:13 Dose: 5 unit Documented by: Insulin Human Lispro (Insulin Lispro 100 Unit/1 Ml) 0 unit SUBCUT TIDWM [facility]; Protocol Last Admin: 07/01/21 17:31 Dose: 8 unit Documented by: Labetalol HCl (Labetalol 5 Mg/Ml Sdv 20ml) 10 mg IVP Q4H PRN PRN Reason: SBP>180 or DBP>90 hold if HR<60 Last Admin: 06/29/21 22:18 Dose: 10 mg Documented by: Lorazepam (Lorazepam 2 Mg/Ml Inj 1 Ml) 1 mg IVP Q2H PRN PRN Reason: ANXIETY Last Admin: 06/29/21 20:22 Dose: 1 mg Documented by: Metoprolol Tartrate (Metoprolol Tartrate 50 Mg Tablet) 50 mg PO Q12H [facility] Last Admin: 07/02/21 05:25 Dose: 50 mg Documented by: Minoxidil (Minoxidil 10 Mg Tablet) 5 mg PO Q12H [facility] Last Admin: 07/02/21 05:25 Dose: 5 mg Documented by: Multivitamins Therapeutic (Multivitamin Therapeutic Tablet) 1 tab PO DAILY [facility] Last Admin: 07/01/21 08:24 Dose: 1 tab Documented by: Nicotine (Nicotine 21 Mg Patch) 1 patch TRANSDERMA DAILY [facility] Last Admin: 07/01/21 11:54 Dose: Not Given Documented by: Olanzapine (Olanzapine 5 Mg Tablet) 5 mg PO BEDTIME [facility] Last Admin: 07/01/21 20:07 Dose: 5 mg Documented by: Ondansetron HCl (Ondansetron 2 Mg/Ml Sdv 2 Ml) 4 mg IVP Q8H PRN PRN Reason: NAUSEA AND VOMITING Pantoprazole Sodium (Pantoprazole Dr 40 Mg Tablet) 40 mg PO DAILY [facility] Spironolactone (Spironolactone 25 Mg Tablet) 50 mg PO BID [facility] Last Admin: 07/01/21 17:31 Dose: 50 mg Documented by: Thiamine Mononitrate (Thiamine 100 Mg Tablet) 100 mg PO DAILY [facility] Last Admin: 07/01/21 08:25 Dose: 100 mg Documented by: Vitals/I&O/Wt Last Vital Signs Temp 99.5 F 07/02/21 03:23 Pulse 60 07/02/21 06:00 Resp 26 H 07/02/21 06:00 BP 156/63 07/02/21 06:00 Pulse Ox 92 07/02/21 06:00 07/01/21 07/01/21 07/02/21 14:59 22:59 06:59 Intake Total 1417.267 / 1417.267 719.75 / 2137.017 447.85 / 2584.867 Output Total 750 / 750 650 / 1400 Balance 1417.267 / 1417.267 -30.25 / 1387.017 -202.15 / 1184.867 Weight last 48 hrs Weight 149.822 kg Weight 151.092 kg Physical Exam Narrative: comfortable in bed, NARD on nitro drip heent- nc/at, eomi neck supple lungs clear b/l heart -paced rhythm + s1, s2 abd soft, nt, nd, + bs ext 1+ edema, poor pulses rt foot w/ an ischemic toe neuro- awake, alert oriented + christine Urinary Catheter Management: Christine: Cath Placed During This Visit: yes Reason for Continuing Indwelling Catheter: Accurate Measurement of Urinary Output in Critically Ill Patients Urinary Catheter Date of Insertion: 06/25/21 Urinary Catheter Time of Insertion: 17:28 Data : 07/02/21 03:15 07/02/21 03:15 Micro: Microbiology 06/30/21 05:30 Urine Culture - Preliminary Urine,Clean Catch A&P Assessment and plan (1) Acute kidney injury: 1. Acute kidney injury Likely bradycardic cardiorenal syndrome Renal function recovered to cr 1.8 -1.9 mg/dl. Monitor strict I's and O's Avoid usual nephrotoxic agents Dose medication for CKD stage 3 b/4. 2. In May at [facility] his cr was 1.8 mg/dl and k 5- giving him stage 3b/4 CKD- age, htn, dm 3. HTN -improving -use catapress patch, norvasc 10 mgm po d, aldactone 50 mgm po bid, hydralazine 50 tid, minoxidil 5 daily. can add ARB,a nd likely hcttz -ua negative not c/w vasculitis 4. hypernatremia - improved off of lasix and metolazone- cxr is clear 5.. resp alaklosis- on eliquis. consider venous dopplers 7. hyperglycemia - gluc control leukocytosis - remove christine pt needs nutrition Thank you for consultation Patient seen and examined via telemedicine, with the assistance of the bedside RN 30 min spent in evaluation and mgmt of patient Status: Acute Plan see above Attestations Medical Necessity Statement*: htn- wean off nitro drip Time Spent in Patient Care: 16 - 35 minutes (>than 50% of time spent in counselling and/or direct pt care on unit). Coding Level of Care Code Acute Sheet Turner for [facility]ee Diagnoses Acute kidney injury N17.9
--- NOTE | 2021-07-02 07:50 | PC.NURSE ---
Santo cath removed as ordered. Baloon defalted completed prior to removal. Pt tolerated. Urinal placed at bedside
[2021-07-02] MEDS: amoxicillin-clav 875-125 mg Tablet 1 TAB PO ×2 (08:22→17:41)
[2021-07-02] MEDS: spironolactone 25 mg Tablet 50 MG PO ×2 (08:22→17:40)
[2021-07-02] MEDS: multivitamin therapeutic Tablet 1 TAB PO (08:22)
[2021-07-02] MEDS: pantoprazole DR 40 mg Tablet PO (08:22)
[2021-07-02] MEDS: thiamine 100 mg Tablet PO (08:23)
[2021-07-02] MEDS: amlodipine 10 mg Tablet PO (08:23)
[2021-07-02] MEDS: hyDRALAzine 25 mg Tablet 50 MG PO (08:23)
[2021-07-02] MEDS: aspirin 81 mg EC Tablet PO (08:23)
[2021-07-02] MEDS: folic acid 1 mg Tablet PO (08:23)
[2021-07-02] MEDS: hydroCHLOROthiazide 25 mg Tablet PO (08:23)
[2021-07-02] MEDS: apixaban 5 mg Tablet PO ×2 (08:25→20:30)
[2021-07-02] MEDS: insulin lispro 100 unit/1 mL SUBCUT ×4 (08:25→20:28)
[2021-07-02] MEDS: chlorhexidine gluconate 4% Btl 118 mL 1 APPLIC TOPICAL ×2 (08:25→17:44)
--- NOTE | 2021-07-02 08:29 | PM.PN ---
Subjective Subjective: Giles is about the same this morning. He told me he did not like people who chew gum so I should leave the room. His blood pressure still high but better. He is now just on IV nitroglycerin and a variety of other medications by mouth. Pacemaker is functioning normally. He is busy playing on his cell phone this morning. Vitals/I&O/Wt Last Vital Signs Temp 99.5 F 07/02/21 03:23 Pulse 79 07/02/21 08:09 Resp 22 H 07/02/21 07:00 BP 161/66 07/02/21 07:00 Pulse Ox 96 07/02/21 08:09 07/01/21 07/02/21 07/02/21 22:59 06:59 14:59 Intake Total 719.75 / 2137.017 447.85 / 2584.867 Output Total 750 / 750 650 / 1400 Balance -30.25 / 1387.017 -202.15 / 1184.867 Weight last 48 hrs Weight 330 lb 4.8 oz Weight 333 lb 1.6 oz Physical Exam Narrative: GENERAL: In general he is awake and alert eating breakfast HEENT: Exam within normal limits. NECK: Supple without jugular vein distention. The carotid upstroke is normal without bruits. BACK: Exam normal. LUNGS: Clear. HEART: Regular rate and rhythm. ABDOMEN: Benign without organomegaly or tenderness. EXTREMITIES: No edema. NEUROLOGIC: Exam normal. SKIN: Unremarkable. Urinary Catheter Management: Santo: Cath Placed During This Visit: yes Reason for Continuing Indwelling Catheter: Accurate Measurement of Urinary Output in Critically Ill Patients Urinary Catheter Date of Insertion: 06/25/21 Urinary Catheter Time of Insertion: 17:28 Data : 07/02/21 03:15 07/02/21 03:15 Micro: Microbiology 06/30/21 05:30 Urine Culture - Preliminary Urine,Clean Catch A&P Assessment and plan (1) Status post cardiac pacemaker procedure: Status: Acute (2) Altered mental status: Status: Acute (3) Acute kidney injury: Status: Acute (4) Aspiration pneumonia: Status: Acute (5) Obstructive sleep apnea: Status: Chronic (6) Congestive heart failure: Status: Chronic Qualifiers: Heart failure chronicity: acute on chronic Heart failure type: diastolic Qualified Code(s): I50.33 - Acute on chronic diastolic (congestive) heart failure (7) Chronic anticoagulation: Status: Chronic (8) Diabetes mellitus, type II: Status: Chronic Qualifiers: 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: with equipment operator intermodal yard use Diabetes mellitus complication status: with neurologic complications Diabetes mellitus complication detail: with polyneuropathy Qualified Code(s): E11.42 - Type 2 diabetes mellitus with diabetic polyneuropathy; Z79.4 - detention (current) use of insulin (9) Nicotine dependence, chewing tobacco, with other nicotine-induced disorders: Status: Chronic (10) PAD (peripheral artery disease): Status: Chronic (11) Coronary artery disease: Status: Chronic (12) Atrial fibrillation: Status: Chronic Qualifiers: Atrial fibrillation type: longstanding persistent Qualified Code(s): I48.11 - Longstanding persistent atrial fibrillation (13) Accelerated hypertension: Status: Acute Plan Pacemaker is functioning normally. I limited my interaction due to chewing gum. His request. No changes. Attestations Medical Necessity Statement*: Needs continued hospitalization for management of acute renal insufficiency and delirium Coding Level of Care Code Established Pt Acute Transportation Lead for [facility] [place] Patient Type Established History Comprehensive Exam Comprehensive Medical Decision Making High Complexity Diagnoses Status post cardiac pacemaker procedure Z95.0 Altered mental status R41.82 Acute kidney injury N17.9 Aspiration pneumonia J69.0 Obstructive sleep apnea G47.33 Congestive heart failure I50.33 Heart failure chronicity: acute on chronic Heart failure type: diastolic Chronic anticoagulation Z79.01 Diabetes mellitus, type II E11.42; Z79.4 Diabetes mellitus halfway insulin use: with halfway use Diabetes mellitus complication status: with neurologic complications Diabetes mellitus complication detail: with polyneuropathy Nicotine dependence, chewing tobacco, with other nicotine-induced disorders F17.228 PAD (peripheral artery disease) I73.9 Coronary artery disease I25.10 Atrial fibrillation I48.11 Atrial fibrillation type: longstanding persistent Accelerated hypertension I10 Time Spent (min) 30
[2021-07-02] MEDS: insulin glargine 100 units/1 mL 5 UNIT SUBCUT ×2 (09:34→20:28)
--- NOTE | 2021-07-02 11:19 | PC.SOCIAL ---
IMM Update Pg. 2 of IMM updated and reviewed with patient, who verbalized understanding. Copy provided.
[2021-07-02 11:22] LABS: Glucose Point of Care 290 mg/dL (70-110)
[2021-07-02] MEDS: labetalol 5 mg/mL SDV 20mL 10 MG IVP (11:42)
--- NOTE | 2021-07-02 11:54 | PC.NURSE ---
B/P elevated 181/70 heart rate 63. Labetalol 10mg IVP administered. Dr Pastor rounded on pt again, medications adjusted.
[2021-07-02] MEDS: isosorbide mononitrate ER 60 mg Tablet 120 MG PO (12:00)
[2021-07-02] MEDS: metoprolol tartrate 50 mg Tablet 75 MG PO ×2 (12:00→23:23)
--- NOTE | 2021-07-02 13:21 | P.PN_ITS ---
Subjective Subjective: Patient was seen this morning, he is working with physical therapy, getting up, remains on nitro drip, he tells me he wants to go home on Thursday, he has things to do, no chest pain, no shortness of breath, but does complain of generalized weakness, requires 3 nursing staff to get him up to the side of the bed Vitals/I&O/Wt Last Vital Signs Temp 99.1 F 07/02/21 08:00 Pulse 60 07/02/21 11:00 Resp 28 H 07/02/21 11:00 BP 155/75 07/02/21 11:00 Pulse Ox 96 07/02/21 11:00 07/01/21 07/02/21 07/02/21 22:59 06:59 14:59 Intake Total 719.75 / 2137.017 447.85 / 2584.867 517.575 / 517.575 Output Total 750 / 750 650 / 1400 200 / 200 Balance -30.25 / 1387.017 -202.15 / 1184.867 317.575 / 317.575 Weight last 48 hrs Weight 149.822 kg Weight 151.092 kg Physical Exam Const: COMMON NORMALS: no acute distress and patient oriented x3 Resp: COMMON NORMALS: normal respiratory effort, No retractions, No use of accessory muscles and clear to auscultation bilaterally AUSCULTATION: clear to auscultation bilaterally Cardio: COMMON NORMALS: regular rate, regular rhythm, S1 normal heart sound present and S2 normal heart sound present RATE: regular rate RHYTHM: regular rhythm HEART SOUNDS: S1 normal heart sound present and S2 normal heart sound present GI: COMMON NORMALS: Normal to inspection, nondistended, normoactive bowel sounds present, Soft to palpation, non-tender and No hepatosplenomegaly present PALPATION: Yes Soft to palpation and Yes No hepatosplenomegaly present Extremity: COMMON NORMALS: no pedal edema Neuro: COMMON NORMALS: patient oriented x3 Psych: COMMON NORMALS: mental status grossly normal Urinary Catheter Management: Santo: Cath Placed During This Visit: yes, but has since been removed by the nurse Reason for Continuing Indwelling Catheter: Decision to DC Catheter Urinary Catheter Date of Insertion: 06/25/21 Urinary Catheter Time of Insertion: 17:28 Date Urinary Catheter Removed: 07/02/21 Time Urinary Catheter Discontinued: 07:45 Data : 07/02/21 03:15 07/02/21 03:15 Micro: Microbiology 06/30/21 05:30 Urine Culture - Final Urine,Clean Catch A&P Assessment and plan (1) Aspiration pneumonia: Status: Acute (2) Acute kidney injury: Status: Acute (3) Bradycardia: Symptomatic with heart rate generally staying 20s to 40s. Not on beta-blockade due to known history of bradycardia associated with this. Only other notable medications are isosorbide and amlodipine. In talking with him he does have untreated sleep apnea, prostatic hypertrophy and increasing urinary symptoms. Presently however has significant hyperkalemia with initial level at 7.2. TSH was checked and was normal. Status: Acute (4) Hyperkalemia: Has been on potassium supplementation, also on spironolactone, losartan and has acute kidney injury compared to baseline labs, EKG with peaked T waves initially. Labs from the [facility] on June 17 showed potassium of 5.0. Status: Acute (5) Acute kidney injury: On chronic kidney disease stage 2-3, BUN and creatinine at [facility] on 06/17/2021 was 23/1.79. In February 2021 BUN and creatinine were 12/1.1. He is chronically on ARB, Aldactone, Lasix. Also with history of prostatic hypertrophy with worsening lower urinary tract symptoms. Has history of ureteral stone in the past also. Reports noncompliance with his water pills, increasing overall girth. Status: Acute (6) Accelerated hypertension: Chronically on amlodipine, Lasix, isosorbide, losartan and Aldactone, has not had his medications today Status: Acute (7) Congestive heart failure: Acute on chronic preserved ejection fraction last echocardiogram Status: Chronic Qualifiers: Heart failure chronicity: acute on chronic Heart failure type: diastolic Qualified Code(s): I50.33 - Acute on chronic diastolic (congestive) heart failure (8) Abnormal nuclear stress test: Per Dr. Segura clinical notes although upon review it looks like abnormalities could also be consistent with attenuation defects. This is from stress testing done in September of last year. Status: Acute (9) Coronary artery disease: Has not required previous intervention. Records indicate last arteriogram showed 55% narrowing and unclear vessel. Describes anginal type symptoms lately although this could be related to demand ischemia from impact of bradycardia Status: Chronic (10) Atrial fibrillation: Presently with slow ventricular response, chronic Status: Chronic Qualifiers: Atrial fibrillation type: longstanding persistent Qualified Code(s): I48.11 - Longstanding persistent atrial fibrillation (11) Chronic anticoagulation: Chronically on Eliquis Status: Chronic (12) Diabetes mellitus, type II: Hemoglobin A1c at the [facility] June 17, 2021 was 8.0 Chronically on insulin and semaglutide Status: Chronic Qualifiers: Diabetes mellitus adjunct faculty for medical terminology insulin use: with adjunct faculty for medical terminology use Diabetes mellitus complication status: with neurologic complications Diabetes mellitus complication detail: with polyneuropathy Qualified Code(s): E11.42 - Type 2 diabetes mellitus with diabetic polyneuropathy; Z79.4 - FPC (current) use of insulin (13) BPH NOS w/o ur obs/LUTS: Chronically on finasteride and Flomax, describes progressive lower urinary symptoms suggestive of potential bladder outlet obstruction contributing to acute kidney injury Status: Chronic (14) Calculus of proximal ureter: Has been present for some time, nonobstructing or at least in the same location last time it was evaluated, patient does not describe classic symptoms of kidney stones but at risk of having an obstructive process Status: Acute (15) Hyperlipidemia: Lipid panel checked June 17, 2021 at the [facility] showed total cholesterol of 206, triglycerides of 189, HDL of 43.9 and calculated LDL of 124.3 with an HDL to total cholesterol ratio of 21.3% Chronically on statin Status: Chronic Qualifiers: Hyperlipidemia type: unspecified Qualified Code(s): E78.5 - Hyperlipidemia, unspecified (16) Obstructive sleep apnea: Does not wear CPAP by choice Status: Chronic (17) BMI 40.0-44.9, adult: Status: Acute (18) Nicotine dependence, chewing tobacco, with other nicotine-induced disorders: Status: Chronic (19) Altered mental status: Status: Acute Plan Acute hypertensive urgency Remains on nitro drip wean off add Imdur -Losartan 50 twice daily -Metoprolol 75 twice daily -Minoxidil 5 every 12 hours -Clonidine patch 0.3 q. 7 days -Hydralazine 75 3 times daily -Currently no evidence of fluid overload hold off on Lasix Acute hyponatremia, resolved Acute symptomatic bradycardia -Status post pacemaker placement -Dr. Fernandez on consult Full code Protonix for GI prophylaxis On Eliquis for DVT prophylaxis Altered mental status, likely secondary to aspiration pneumonia, hypoxia, hypertensive encephalopathy -Much more alert today to person, to place, answers questions, follows commands -Wean nitro drip, wean Cardene drip for hypertensive emergency -On Augmentin -CT of the head within normal limits -Blood cultures, urine cultures -Clear liquid diet, advance as tolerated -Zyprexa, Ativan agitation Acute respiratory failure, hypoxia, -Switch to Augmentin -Has a history of severe diastolic CHF, requiring multiple hospitalizations --3.5 L, hold diuresis for today -Status post extubation 06/28/2021, requiring BiPAP therapy DANITZA, 2.0, elevated CPK, has a history of rhabdomyolysis Hyperkalemia, resolved, continue to monitor History of atrial fibrillation, on Eliquis, resume Eliquis Type II diabetes mellitus, low-dose sliding scale, add Lantus History of CVA, monitor History of CAD Hypertension, hold home medications Peripheral arterial disease, bilateral extremities are much more pink, flushed, DP PT pulses palpable bilateral lower extremities are bluish discolored, DP PT pulses barely palpable, likely secondary to bradycardia, however cannot rule out peripheral arterial disease will do ultrasound waveforms, Doppler pulses Attestations Medical Necessity Statement*: Patient requires hospitalization for hypertensive urgency, critical care time spent 25 minutes Coding Level of Care Code Acute Register Of Deeds for [facility] Fwd Diagnoses Aspiration pneumonia J69.0 Acute kidney injury N17.9 Bradycardia R00.1 Hyperkalemia E87.5 Acute kidney injury N17.9 Accelerated hypertension I10 Congestive heart failure I50.33 Heart failure chronicity: acute on chronic Heart failure type: diastolic Abnormal nuclear stress test R94.39 Coronary artery disease I25.10 Atrial fibrillation I48.11 Atrial fibrillation type: longstanding persistent Chronic anticoagulation Z79.01 Diabetes mellitus, type II E11.42; Z79.4 Diabetes mellitus nursing home insulin use: with nursing home use Diabetes mellitus complication status: with neurologic complications Diabetes mellitus complication detail: with polyneuropathy BPH NOS w/o ur obs/LUTS N40.0 Calculus of proximal ureter N20.1 Hyperlipidemia E78.5 Hyperlipidemia type: unspecified Obstructive sleep apnea G47.33 BMI 40.0-44.9, adult Z68.41 Nicotine dependence, chewing tobacco, with other nicotine-induced disorders F17.228 Altered mental status R41.82
[2021-07-02] MEDS: hyDRALAzine 25 mg Tablet 75 MG PO ×2 (15:03→20:29)
[2021-07-02 17:28] LABS: Glucose Point of Care 247 mg/dL (70-110)
[2021-07-02] MEDS: atorvastatin 40 mg Tablet PO (17:40)
--- NOTE | 2021-07-02 18:26 | PC.NURSE ---
Shift Note: Pt alert and mostly oriented. His understanding of his situation needs reinforcement as he overestimates his mobility. He He has some short term memory deficit. He has been out of bed to chair with 3 assist, gait belt and sit to stand equipment. He can bear his own weight but can only stand for a few minutes at a time. B/P medications changed today, see EMAR. Nitro gtt weaned off. Docusate Sodium held this am, then pt refused this pm stated he did not want to shit all over myself again. He remains on 3 lpm/NC. Christine catheter removed this am, he has only urinated once this afternoon since christine removal. Frequent safety and comfort rounds continue. Orders and/or nursing care completed as indicated. Patient monitored for response to intervention and treatment(s). Education provided includes Imdur, Metoprolol, and physical therapy. Patient and/or care support representative verbalized understadning of plan of care, physical therapy needs and medications. Will continue to monitor.
--- NOTE | 2021-07-02 18:50 | PC.NURSE ---
Bedside report with TONYA Hurtado.
[2021-07-02 20:26] LABS: Glucose Point of Care 222 mg/dL (70-110)
[2021-07-02] MEDS: OLANZapine 5 mg TABLET PO (20:29)
--- NOTE | 2021-07-02 22:00 | PC.NURSE ---
Pt forgets what time of day it is. He occasionally says inappropriate things. He asked why so many people are in my house, and was easily reoriented to place. Pt can tell me his entire home medication list accurately. Pt uses call light appropriately. He also remembers that [employer] won the basketball game yesterday.
--- NOTE | 2021-07-02 23:38 | PC.NURSE ---
Pt up to chair with sit to stand lift, gait belt, and assist of 3. Pt had upper airway expiratory wheezing with exertion that cleared with rest.
[2021-07-03] VITALS (37 sets, daily range): BP systolic 126–183; BP diastolic 44–75; PULSE 60–79; RESP 13–28; TEMP 36.5–37.1; O2SAT 93–98
[2021-07-03 03:02] LABS: Basophils # 0.1 10^3/uL (0.0-0.1); Basophils % 0.4 %; Eosinophils # 0.4 10^3/uL (0.0-0.8); Eosinophils % 2.3 %; Hematocrit 32.3 % (42.0-52.0); Hemoglobin 10.8 g/dL (11.7-16.6); Lymphocytes # 2.1 10^3/uL (0.8-4.8); Lymphocytes % 12.5 %; Mean Corpuscular HGB Conc 33.4 g/dL (30.0-36.0); Mean Corpuscular Hemoglobin 28.9 pg (28.0-34.0); Mean Corpuscular Volume 86.4 fl (80-94); Mean Platelet Volume 10.8 fL (7.4-10.4); Monocytes # 1.1 10^3/uL (0.2-0.9); Monocytes % 6.5 %; Neutrophils # 13.14 10^3/uL (1.8-7.7); Neutrophils % 77.2 %; Nucleated Red Blood Cells % 0 %; Platelet Count 241 10^3/cmm (130-400); Red Blood Count 3.74 10^6/uL (4.1-5.3); Red Cell Distribution Width 12.6 % (12.1-15.1)
[2021-07-03 03:35] LABS: Alanine Aminotransferase 24 U/L (0-41); Albumin Level 3.4 g/dL (3.5-5.2); Alkaline Phosphatase 90 IU/L (40-130); Anion Gap 17.6 (5-19); Aspartate Amino Transferase 32 U/L (0-40); Blood Urea Nitrogen 57 mg/dL (8-23); Calcium 8.8 mg/dL (8.5-10.5); Carbon Dioxide 21 mmol/L (22-29); Chloride 105 mmol/L (98-107); Globulin 2.8 g/dL (1.3-4.6); Glucose 213 mg/dL (65-115); Magnesium 2.3 mg/dL (1.7-2.3); NT Pro B Type Natriuretic Pept 6644 pg/mL (0-125); Osmolality Calculated 312 mOsm/kg (285-295); Phosphorus 4.4 mg/dL (2.5-4.5); Potassium 3.6 mmol/L (3.5-5.1); Sodium 140 mmol/L (136-145); Total Bilirubin 0.4 mg/dL (0.15-1.2); Total Protein 6.2 g/dL (6.6-8.7)
--- NOTE | 2021-07-03 03:37 | PC.NURSE ---
Pt insists that Prevnar mat be removed from bed prior to him being returned to bed. He also refuses to leave foam dressing on his buttocks, stating that it makes it hurt worse. Aloe [place] applied to buttocks per pt's request. Pt returned to bed with assist of 3, a gait belt, and sit to stand.
[2021-07-03 03:38] LABS: Creatine Phosphokinase 606 U/L (39-308)
[2021-07-03] MEDS: minoxidil 10 mg Tablet 5 MG PO (06:13)
[2021-07-03 06:21] LABS: Glucose Point of Care 210 mg/dL (70-110)
--- NOTE | 2021-07-03 07:12 | PM.PN ---
Subjective Subjective: c/o feeling cold and bruising. MS not perfect. improving diarrhea. urinated on his own. Medications: Reviewed: Yes Medication Review Details: Current Medications Acetaminophen (Acetaminophen 325 Mg Tablet) 650 mg PO Q6H PRN PRN Reason: MILD PAIN Last Admin: 06/28/21 19:29 Dose: 650 mg Documented by: Amlodipine Besylate (Amlodipine 10 Mg Tablet) 10 mg PO DAILY [facility] Last Admin: 07/02/21 08:23 Dose: 10 mg Documented by: Amoxicillin/Clavulanate Potassium (Amoxicillin-Clav 875-125 Mg Tablet) 1 tab PO BID [facility]; Protocol Last Admin: 07/02/21 17:41 Dose: 1 tab Documented by: Apixaban (Apixaban 5 Mg Tablet) 5 mg PO BID@0900,2100 [facility] Last Admin: 07/02/21 20:30 Dose: 5 mg Documented by: Aspirin (Aspirin 81 Mg Ec Tablet) 81 mg PO DAILY [facility] Last Admin: 07/02/21 08:23 Dose: 81 mg Documented by: Atorvastatin Calcium (Atorvastatin 40 Mg Tablet) 40 mg PO QPM [facility] Last Admin: 07/02/21 17:40 Dose: 40 mg Documented by: Chlorhexidine Gluconate (Chlorhexidine Gluconate 4% Btl 118 Ml) 1 applic TOPICAL BID [facility] Last Admin: 07/02/21 17:44 Dose: 1 applic Documented by: Clonidine HCl (Clonidine 0.3 Mg/24 Hr Patch) 1 patch TRANSDERMA Q7D [facility] Last Admin: 06/30/21 08:31 Dose: 1 patch Documented by: Dextrose (Dextrose 50% Syringe 50 Ml) 25 ml IVP ONCE PRN; Protocol PRN Reason: hypoglycemia protocol Dextrose (Dextrose 50% Syringe 50 Ml) 50 ml IVP PRN PRN; Protocol PRN Reason: hypoglycemia protocol Docusate Sodium (Docusate Sodium 10 Mg/Ml (5ml) Liq) 100 mg PO BID [facility] Last Admin: 07/02/21 20:17 Dose: Not Given Documented by: Folic Acid (Folic Acid 1 Mg Tablet) 1 mg PO DAILY [facility] Last Admin: 07/02/21 08:23 Dose: 1 mg Documented by: Glucagon (Glucagon 1 Mg/Ml Inj 1 Ml) 1 mg IM ONCE PRN; Protocol PRN Reason: Adult Acute Hypoglycemia Prot. Hydralazine HCl (Hydralazine 20 Mg/Ml Inj 1 Ml) 10 mg IVP Q4H PRN PRN Reason: Nausea and Vomiting, Severe Last Admin: 07/01/21 16:49 Dose: 10 mg Documented by: Hydralazine HCl (Hydralazine 25 Mg Tablet) 75 mg PO TID [facility] Last Admin: 07/02/21 20:29 Dose: 75 mg Documented by: Hydrochlorothiazide (Hydrochlorothiazide 25 Mg Tablet) 25 mg PO DAILY [facility] Last Admin: 07/02/21 08:23 Dose: 25 mg Documented by: Dextrose (D5w) 500 mls @ 100 mls/hr IV ONCE PRN; Protocol PRN Reason: Adult Acute Hypoglycemia Prot Insulin Glargine (Insulin Glargine 100 Units/1 Ml) 5 unit SUBCUT Q12H [facility] Last Admin: 07/02/21 20:28 Dose: 5 unit Documented by: Insulin Human Lispro (Insulin Lispro 100 Unit/1 Ml) 0 unit SUBCUT BEDTIME [facility]; Protocol Last Admin: 07/02/21 20:28 Dose: 4 unit Documented by: Insulin Human Lispro (Insulin Lispro 100 Unit/1 Ml) 0 unit SUBCUT TIDWM [facility]; Protocol Last Admin: 07/02/21 17:45 Dose: 8 unit Documented by: Isosorbide Mononitrate (Isosorbide Mononitrate Er 60 Mg Tablet) 120 mg PO DAILY [facility] Last Admin: 07/02/21 12:00 Dose: 120 mg Documented by: Labetalol HCl (Labetalol 5 Mg/Ml Sdv 20ml) 10 mg IVP Q4H PRN PRN Reason: SBP>180 or DBP>90 hold if HR<60 Last Admin: 07/02/21 11:42 Dose: 10 mg Documented by: Metoprolol Tartrate (Metoprolol Tartrate 50 Mg Tablet) 75 mg PO Q12H [facility] Last Admin: 07/02/21 23:23 Dose: 75 mg Documented by: Minoxidil (Minoxidil 10 Mg Tablet) 5 mg PO Q12H [facility] Last Admin: 07/03/21 06:13 Dose: 5 mg Documented by: Multivitamins Therapeutic (Multivitamin Therapeutic Tablet) 1 tab PO DAILY [facility] Last Admin: 07/02/21 08:22 Dose: 1 tab Documented by: Nicotine (Nicotine 21 Mg Patch) 1 patch TRANSDERMA DAILY [facility] Last Admin: 07/02/21 08:27 Dose: Not Given Documented by: Olanzapine (Olanzapine 5 Mg Tablet) 5 mg PO BEDTIME [facility] Last Admin: 07/02/21 20:29 Dose: 5 mg Documented by: Ondansetron HCl (Ondansetron 2 Mg/Ml Sdv 2 Ml) 4 mg IVP Q8H PRN PRN Reason: NAUSEA AND VOMITING Pantoprazole Sodium (Pantoprazole Dr 40 Mg Tablet) 40 mg PO DAILY [facility] Last Admin: 07/02/21 08:22 Dose: 40 mg Documented by: Spironolactone (Spironolactone 25 Mg Tablet) 50 mg PO BID [facility] Last Admin: 07/02/21 17:40 Dose: 50 mg Documented by: Thiamine Mononitrate (Thiamine 100 Mg Tablet) 100 mg PO DAILY [facility] Last Admin: 07/02/21 08:23 Dose: 100 mg Documented by: Vitals/I&O/Wt Last Vital Signs Temp 98.4 F 07/03/21 04:00 Pulse 60 07/03/21 06:00 Resp 23 H 07/03/21 06:00 BP 129/66 07/03/21 06:00 Pulse Ox 93 07/03/21 06:00 07/02/21 07/03/21 07/03/21 22:59 06:59 14:59 Intake Total 500 / 1025.675 120 / 1145.675 Output Total 400 / 600 250 / 850 Balance 100 / 425.675 -130 / 295.675 Weight last 48 hrs Weight 151.318 kg Weight 149.822 kg Physical Exam Narrative: comfortable in bed, NARD, off drips heent- nc/at, eomi neck supple lungs clear b/l heart -paced rhythm + s1, s2 abd soft, nt, nd, + bs ext 1+ edema, poor pulses rt foot w/ an ischemic toe neuro- awake, alert oriented x 2+ no christine Urinary Catheter Management: Christine: Cath Placed During This Visit: yes, but has since been removed by the nurse Reason for Continuing Indwelling Catheter: Decision to DC Catheter Urinary Catheter Date of Insertion: 06/25/21 Urinary Catheter Time of Insertion: 17:28 Date Urinary Catheter Removed: 07/02/21 Time Urinary Catheter Discontinued: 07:45 Data : 07/03/21 02:45 07/03/21 02:45 Micro: Microbiology 06/30/21 05:30 Urine Culture - Final Urine,Clean Catch A&P Assessment and plan (1) Acute kidney injury: 1. Acute kidney injury Likely bradycardic cardiorenal syndrome Renal function recovered to cr 1.8 -1.9 mg/dl. -cr now up to 2.1 - likely from drop in BP Monitor strict I's and O's Avoid usual nephrotoxic agents Dose medication for CKD stage 3 b/4. -christine out 2. In May at [facility] his cr was 1.8 mg/dl and k 5- giving him stage 3b/4 CKD- age, htn, dm 3. HTN -improved -will dec meds -use catapress patch, norvasc 10 mgm po d, aldactone 50 mgm po bid, hydralazine 50 tid, minoxidil 5 daily, hctz 25 d- monitor and dec meds if BP is low -ua negative not c/w vasculitis 4. hypernatremia - improved off of lasix and metolazone- cxr is clear 5. hyperglycemia - gluc control 6. leukocytosis - slowly improving. wbc still 17 7. ck 606 8 elevated bnp noted- on aldactone and hctz Thank you for consultation Patient seen and examined via telemedicine, with the assistance of the bedside RN 30 min spent in evaluation and mgmt of patient Status: Acute Plan see above Attestations Medical Necessity Statement*: htn, baron on ckd stage 3 b Time Spent in Patient Care: 16 - 35 minutes (>than 50% of time spent in counselling and/or direct pt care on unit). 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
[2021-07-03 08:09] LABS: Glucose Point of Care 218 mg/dL (70-110)
--- NOTE | 2021-07-03 08:09 | P.PN_ITS ---
Subjective Subjective: Giles is about the same today. Cognitively he is unchanged. He still gets confused. He thinks the ICU is his house. Told me that he and one of the nurses went to his house last night to get some chewing tobacco. He told me that he still does not like people who chew gum. I asked him whether it was okay that he used chewing tobacco. He also asked the same question over and over again. No chest pain. Pacemaker functioning normally. Blood pressure is much improved. He is now off all intravenous medications. Vitals/I&O/Wt Last Vital Signs Temp 98.4 F 07/03/21 04:00 Pulse 60 07/03/21 06:00 Resp 23 H 07/03/21 06:00 BP 129/66 07/03/21 06:00 Pulse Ox 93 07/03/21 06:00 07/02/21 07/03/21 07/03/21 22:59 06:59 14:59 Intake Total 500 / 1025.675 120 / 1145.675 Output Total 400 / 600 250 / 850 Balance 100 / 425.675 -130 / 295.675 Weight last 48 hrs Weight 333 lb 9.6 oz Weight 330 lb 4.8 oz Physical Exam Narrative: GENERAL: In general he is comfortable at rest but confused HEENT: Exam within normal limits. NECK: Supple without jugular vein distention. The carotid upstroke is normal without bruits. BACK: Exam normal. LUNGS: Clear. HEART: Regular rate and rhythm. ABDOMEN: Benign without organomegaly or tenderness. EXTREMITIES: No edema. NEUROLOGIC: Exam normal. SKIN: Unremarkable. Urinary Catheter Management: Santo: Cath Placed During This Visit: yes, but has since been removed by the nurse Reason for Continuing Indwelling Catheter: Decision to DC Catheter Urinary Catheter Date of Insertion: 06/25/21 Urinary Catheter Time of Insertion: 17:28 Date Urinary Catheter Removed: 07/02/21 Time Urinary Catheter Discontinued: 07:45 Data : 07/03/21 02:45 07/03/21 02:45 Micro: Microbiology 06/30/21 05:30 Urine Culture - Final Urine,Clean Catch A&P Assessment and plan (1) Status post cardiac pacemaker procedure: Status: Acute (2) Altered mental status: Status: Acute (3) Acute kidney injury: Status: Acute (4) Aspiration pneumonia: Status: Acute (5) Congestive heart failure: Status: Chronic Qualifiers: Heart failure chronicity: acute on chronic Heart failure type: diastolic Qualified Code(s): I50.33 - Acute on chronic diastolic (congestive) heart failure (6) Obstructive sleep apnea: Status: Chronic (7) Hyperlipidemia: Status: Chronic Qualifiers: Hyperlipidemia type: unspecified Qualified Code(s): E78.5 - Hyperlipidemia, unspecified (8) Chronic anticoagulation: Status: Chronic (9) Diabetes mellitus, type II: Status: Chronic Qualifiers: Diabetes mellitus halfway insulin use: with halfway use Diabetes mellitus complication status: with neurologic complications Diabetes mellitus complication detail: with polyneuropathy Qualified Code(s): E11.42 - Type 2 diabetes mellitus with diabetic polyneuropathy; Z79.4 - intermediate designer (current) use of insulin (10) Nicotine dependence, chewing tobacco, with other nicotine-induced disorders: Status: Chronic (11) Atrial fibrillation: Status: Chronic Qualifiers: Atrial fibrillation type: longstanding persistent Qualified Code(s): I48.11 - Longstanding persistent atrial fibrillation Plan No changes today no changes today. Could go out of the ICU. Attestations Medical Necessity Statement*: Needs continued hospitalization needs continued hospitalization for management of multiple medical problems as listed. 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 Type Established History Detailed Exam Detailed Medical Decision Making Moderate Complexity Diagnoses Status post cardiac pacemaker procedure Z95.0 Altered mental status R41.82 Acute kidney injury N17.9 Aspiration pneumonia J69.0 Congestive heart failure I50.33 Heart failure chronicity: acute on chronic Heart failure type: diastolic Obstructive sleep apnea G47.33 Hyperlipidemia E78.5 Hyperlipidemia type: unspecified Chronic anticoagulation Z79.01 Diabetes mellitus, type II E11.42; Z79.4 Diabetes mellitus intermediate frame tender insulin use: with intermediate frame tender use Diabetes mellitus complication status: with neurologic complications Diabetes mellitus complication detail: with polyneuropathy Nicotine dependence, chewing tobacco, with other nicotine-induced disorders F17.228 Atrial fibrillation I48.11 Atrial fibrillation type: longstanding persistent Time Spent (min) 30
[2021-07-03] MEDS: multivitamin therapeutic Tablet 1 TAB PO (09:13)
[2021-07-03] MEDS: hydroCHLOROthiazide 25 mg Tablet PO (09:13)
[2021-07-03] MEDS: aspirin 81 mg EC Tablet PO (09:13)
[2021-07-03] MEDS: spironolactone 25 mg Tablet 50 MG PO ×2 (09:13→17:22)
[2021-07-03] MEDS: thiamine 100 mg Tablet PO (09:13)
[2021-07-03] MEDS: apixaban 5 mg Tablet PO ×2 (09:13→20:29)
[2021-07-03] MEDS: nicotine 21 mg Patch 1 PATCH TRANSDERMA (09:13)
[2021-07-03] MEDS: amlodipine 10 mg Tablet PO (09:13)
[2021-07-03] MEDS: pantoprazole DR 40 mg Tablet PO (09:13)
[2021-07-03] MEDS: isosorbide mononitrate ER 60 mg Tablet 120 MG PO (09:13)
[2021-07-03] MEDS: folic acid 1 mg Tablet PO (09:13)
[2021-07-03] MEDS: amoxicillin-clav 875-125 mg Tablet 1 TAB PO ×2 (09:13→17:22)
[2021-07-03] MEDS: insulin glargine 100 units/1 mL 5 UNIT SUBCUT ×2 (09:14→20:26)
[2021-07-03] MEDS: insulin lispro 100 unit/1 mL SUBCUT ×4 (09:17→20:26)
[2021-07-03] MEDS: chlorhexidine gluconate 4% Btl 118 mL 1 APPLIC TOPICAL (09:23)
[2021-07-03 11:56] LABS: Glucose Point of Care 246 mg/dL (70-110)
[2021-07-03] MEDS: metoprolol tartrate 50 mg Tablet 75 MG PO (11:59)
--- NOTE | 2021-07-03 12:08 | PC.CHAP ---
Pastoral Care Encounter/Spiritual Assessment Type of Contact [] Declined ventilation worker visit [] Patient/Family/Request visit [] Outpatient visit [] Follow-up visit [] Physician referral [] Code/Alert [x] Routine visit [] Staff referral [] Actively dying [] Patient sleeping [] Family support [] [] Out of room [] Palliative care [] [] Receiving care in room [] Pre-surgical visit [] Trauma [] Long length of stay [x] ICU visit [] Other: Relational/Emotional Strength [] Patient feels connected with others/family/visitors/staff [] Distress [] Loneliness/isolation [] Abandonment Spirituality of Patient [] Person of Christina [] Attends [employer]ecostal of their Christina [] Believes in Prayer [] Reads Bible or Mu-Ism materials [] There are Spiritual issues to be addressed Event Producer Interventions [x] Prayer [x] Active listening [x] Non-anxious presence [x] Spiritual/emotional support [] Crisis/trauma care [] Spiritual counseling [] Bereavement support [] Provided bereavement packet [] Provided Bible/devotional materials [] Provided toy/stuffed animal, coloring book to patient or family member [] Provided Communion [] Anointing/Bells [] Salvation [x] Completed spiritual assessment [] Other: Impact on Illness or Injury [] Angry [] Fearful [] Anxious [] Often cries [] Exhaustion [] Unable to work [] Unable to attend mandaen [] Unable to walk/stand [] Unable to read [] Unable to drive [] Unable to eat/drink [] Unable to sleep [] Unable to be with family [] Patient intubated [] Other: Summary continue to pray for healing and strength... appetite... setting up in chair.. 2nd ventilation worker continues to visit also prayed with patient Time spent with patient 5 min
--- NOTE | 2021-07-03 12:53 | PM.PN ---
Subjective Subjective: Patient was seen this morning, sitting up in a chair, he tells me that his breathing has significantly improved, is alert oriented x3, following all commands, he tells me that he is willing to stay here in the hospital until his strength improves, he is off the nitro drip, Vitals/I&O/Wt Last Vital Signs Temp 98.4 F 07/03/21 04:00 Pulse 60 07/03/21 10:00 Resp 23 H 07/03/21 10:00 BP 177/75 07/03/21 10:00 Pulse Ox 93 07/03/21 06:00 07/02/21 07/03/21 07/03/21 22:59 06:59 14:59 Intake Total 500 / 1025.675 120 / 1145.675 240 / 240 Output Total 400 / 600 250 / 850 Balance 100 / 425.675 -130 / 295.675 240 / 240 Weight last 48 hrs Weight 151.318 kg Weight 149.822 kg Physical Exam Const: COMMON NORMALS: no acute distress and patient oriented x3 Resp: COMMON NORMALS: normal respiratory effort, No retractions, No use of accessory muscles and clear to auscultation bilaterally AUSCULTATION: clear to auscultation bilaterally Cardio: COMMON NORMALS: regular rate, regular rhythm, S1 normal heart sound present and S2 normal heart sound present RATE: regular rate RHYTHM: regular rhythm HEART SOUNDS: S1 normal heart sound present and S2 normal heart sound present GI: COMMON NORMALS: Normal to inspection, nondistended, normoactive bowel sounds present, Soft to palpation, non-tender, No hepatosplenomegaly present and no masses PALPATION: Yes Soft to palpation and Yes No hepatosplenomegaly present Extremity: COMMON NORMALS: no pedal edema Neuro: COMMON NORMALS: patient oriented x3 Psych: COMMON NORMALS: mental status grossly normal Urinary Catheter Management: Santo: Cath Placed During This Visit: yes, but has since been removed by the nurse Reason for Continuing Indwelling Catheter: Decision to DC Catheter Urinary Catheter Date of Insertion: 06/25/21 Urinary Catheter Time of Insertion: 17:28 Date Urinary Catheter Removed: 07/02/21 Time Urinary Catheter Discontinued: 07:45 Data : 07/03/21 02:45 07/03/21 02:45 Micro: Microbiology 06/30/21 05:30 Urine Culture - Final Urine,Clean Catch A&P Assessment and plan (1) Aspiration pneumonia: Status: Acute (2) Acute kidney injury: Status: Acute (3) Bradycardia: Symptomatic with heart rate generally staying 20s to 40s. Not on beta-blockade due to known history of bradycardia associated with this. Only other notable medications are isosorbide and amlodipine. In talking with him he does have untreated sleep apnea, prostatic hypertrophy and increasing urinary symptoms. Presently however has significant hyperkalemia with initial level at 7.2. TSH was checked and was normal. Status: Acute (4) Hyperkalemia: Has been on potassium supplementation, also on spironolactone, losartan and has acute kidney injury compared to baseline labs, EKG with peaked T waves initially. Labs from the [facility] on June 17 showed potassium of 5.0. Status: Acute (5) Acute kidney injury: On chronic kidney disease stage 2-3, BUN and creatinine at [facility] on 06/17/2021 was 23/1.79. In February 2021 BUN and creatinine were 12/1.1. He is chronically on ARB, Aldactone, Lasix. Also with history of prostatic hypertrophy with worsening lower urinary tract symptoms. Has history of ureteral stone in the past also. Reports noncompliance with his water pills, increasing overall girth. Status: Acute (6) Accelerated hypertension: Chronically on amlodipine, Lasix, isosorbide, losartan and Aldactone, has not had his medications today Status: Acute (7) Congestive heart failure: Acute on chronic preserved ejection fraction last echocardiogram Status: Chronic Qualifiers: Heart failure chronicity: acute on chronic Heart failure type: diastolic Qualified Code(s): I50.33 - Acute on chronic diastolic (congestive) heart failure (8) Abnormal nuclear stress test: Per Dr. Segura clinical notes although upon review it looks like abnormalities could also be consistent with attenuation defects. This is from stress testing done in September of last year. Status: Acute (9) Coronary artery disease: Has not required previous intervention. Records indicate last arteriogram showed 55% narrowing and unclear vessel. Describes anginal type symptoms lately although this could be related to demand ischemia from impact of bradycardia Status: Chronic (10) Atrial fibrillation: Presently with slow ventricular response, chronic Status: Chronic Qualifiers: Atrial fibrillation type: longstanding persistent Qualified Code(s): I48.11 - Longstanding persistent atrial fibrillation (11) Chronic anticoagulation: Chronically on Eliquis Status: Chronic (12) Diabetes mellitus, type II: Hemoglobin A1c at the [facility] June 17, 2021 was 8.0 Chronically on insulin and semaglutide Status: Chronic Qualifiers: Diabetes mellitus salvage determiner insulin use: with shelter use Diabetes mellitus complication status: with neurologic complications Diabetes mellitus complication detail: with polyneuropathy Qualified Code(s): E11.42 - Type 2 diabetes mellitus with diabetic polyneuropathy; 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 (13) BPH NOS w/o ur obs/LUTS: Chronically on finasteride and Flomax, describes progressive lower urinary symptoms suggestive of potential bladder outlet obstruction contributing to acute kidney injury Status: Chronic (14) Calculus of proximal ureter: Has been present for some time, nonobstructing or at least in the same location last time it was evaluated, patient does not describe classic symptoms of kidney stones but at risk of having an obstructive process Status: Acute (15) Hyperlipidemia: Lipid panel checked June 17, 2021 at the [facility] showed total cholesterol of 206, triglycerides of 189, HDL of 43.9 and calculated LDL of 124.3 with an HDL to total cholesterol ratio of 21.3% Chronically on statin Status: Chronic Qualifiers: Hyperlipidemia type: unspecified Qualified Code(s): E78.5 - Hyperlipidemia, unspecified (16) Obstructive sleep apnea: Does not wear CPAP by choice Status: Chronic (17) BMI 40.0-44.9, adult: Status: Acute (18) Nicotine dependence, chewing tobacco, with other nicotine-induced disorders: Status: Chronic (19) Altered mental status: Status: Acute Plan Acute hypertensive urgency -Remains off nitro drip -Losartan 50 twice daily -Metoprolol 75 twice daily -Minoxidil 5 every 12 hours -Clonidine patch 0.3 q. 7 days -Hydralazine 75 3 times daily -Has 1+ pitting edema, creatinine up to 2.1, hold diuretics for today Acute hyponatremia, resolved Acute symptomatic bradycardia -Status post pacemaker placement -Dr. Fernandez on consult Full code Protonix for GI prophylaxis On Eliquis for DVT prophylaxis Altered mental status, likely secondary to aspiration pneumonia, hypoxia, hypertensive encephalopathy -Much more alert today to person, to place, answers questions, follows commands -Wean nitro drip, wean Cardene drip for hypertensive emergency -On Augmentin -CT of the head within normal limits -Blood cultures, urine cultures -Advance diet as tolerated -Zyprexa, Ativan agitation Acute respiratory failure, hypoxia, -Switch to Augmentin -Has a history of severe diastolic CHF, requiring multiple hospitalizations - hold diuresis for today -Status post extubation 06/28/2021, requiring BiPAP therapy DANITZA, 2.1, elevated CPK, has a history of rhabdomyolysis Hyperkalemia, resolved, continue to monitor History of atrial fibrillation, on Eliquis, resume Eliquis Type II diabetes mellitus, low-dose sliding scale, add Lantus History of CVA, monitor History of CAD Hypertension, hold home medications Peripheral arterial disease, bilateral extremities are much more pink, flushed, DP PT pulses palpable bilateral lower extremities are bluish discolored, DP PT pulses barely palpable, likely secondary to bradycardia, however cannot rule out peripheral arterial disease will do ultrasound waveforms, Doppler pulses Move out of ICU Attestations Medical Necessity Statement*: Patient requires hospitalization for hypertensive urgency, bradycardia, bilateral extremity edema, rhabdo, deconditioning, persistent leukocytosis, Coding Level of Care Code Acute Cloud Subject Matter Expert for [facility] Fwd Diagnoses Aspiration pneumonia J69.0 Acute kidney injury N17.9 Bradycardia R00.1 Hyperkalemia E87.5 Acute kidney injury N17.9 Accelerated hypertension I10 Congestive heart failure I50.33 Heart failure chronicity: acute on chronic Heart failure type: diastolic Abnormal nuclear stress test R94.39 Coronary artery disease I25.10 Atrial fibrillation I48.11 Atrial fibrillation type: longstanding persistent Chronic anticoagulation Z79.01 Diabetes mellitus, type II E11.42; Z79.4 Diabetes mellitus shelter insulin use: with shelter use Diabetes mellitus complication status: with neurologic complications Diabetes mellitus complication detail: with polyneuropathy BPH NOS w/o ur obs/LUTS N40.0 Calculus of proximal ureter N20.1 Hyperlipidemia E78.5 Hyperlipidemia type: unspecified Obstructive sleep apnea G47.33 BMI 40.0-44.9, adult Z68.41 Nicotine dependence, chewing tobacco, with other nicotine-induced disorders F17.228 Altered mental status R41.82
[2021-07-03] MEDS: hyDRALAzine 25 mg Tablet 50 MG PO ×2 (15:13→20:26)
--- NOTE | 2021-07-03 16:33 | PC.OT ---
OT TREATMENT ATTEMPTED THIS P.M. PATIENT APPEARS AND STATES THAT HE IS VERY CONFUSED. HE TALKS SLOWLY BUT IS CONFUSED ABOUT HOW HE WENT TO SLEEP IN THE BED AND WOKE UP IN THE RECLINER. PATIENT IS CURRENTLY IN BED. THIS THERAPIST STATES THAT SHE IS UNAWARE OF CIRCUMSTANCES THAT HAVE OCCURRED EARLIER IN THE DAY. PATIENT DECLINES TO PARTICIPATE IN ADL OR UE EXERCISE AT THIS TIME AND JUST CONTINUES TO TALK. WILL ATTEMPT AGAIN TOMORROW.
[2021-07-03 17:21] LABS: Glucose Point of Care 199 mg/dL (70-110)
[2021-07-03] MEDS: atorvastatin 40 mg Tablet PO (17:22)
--- NOTE | 2021-07-03 18:06 | PC.NURSE ---
Patient noted to have increased confusion throughout day. RT attempted to place patient on Bipap, patient refused and states, Give me my walker, I am going to my truck. Physician notified, orders placed to get ABG. Patient refuses ABG, Physician notified PRN orders placed, see mar.
[2021-07-03] MEDS: haloperidol inj 5 mg/mL INJ 1 mL 1 MG IM (18:15)
[2021-07-03 20:18] LABS: Glucose Point of Care 178 mg/dL (70-110)
[2021-07-03] MEDS: OLANZapine 5 mg TABLET PO (20:26)
[2021-07-04] VITALS (15 sets, daily range): BP systolic 141–195; BP diastolic 56–74; PULSE 59–65; RESP 13–25; TEMP 36.2–36.9; O2SAT 93–98
[2021-07-04] MEDS: metoprolol tartrate 50 mg Tablet 75 MG PO (00:16)
--- NOTE | 2021-07-04 06:34 | PM.PN ---
Subjective Subjective: waxing and waning MS. feels better. is very weak. needed significant assistance yesterday to get out and back into bed. + edema. less sob. no heredia, cp, n/v/f/d, back pain. Medications: Reviewed: Yes Medication Review Details: Current Medications Acetaminophen (Acetaminophen 325 Mg Tablet) 650 mg PO Q6H PRN PRN Reason: MILD PAIN Last Admin: 06/28/21 19:29 Dose: 650 mg Documented by: Amlodipine Besylate (Amlodipine 10 Mg Tablet) 10 mg PO DAILY [facility] Last Admin: 07/03/21 09:13 Dose: 10 mg Documented by: Amoxicillin/Clavulanate Potassium (Amoxicillin-Clav 875-125 Mg Tablet) 1 tab PO BID [facility]; Protocol Last Admin: 07/03/21 17:22 Dose: 1 tab Documented by: Apixaban (Apixaban 5 Mg Tablet) 5 mg PO BID@0900,2100 [facility] Last Admin: 07/03/21 20:29 Dose: 5 mg Documented by: Aspirin (Aspirin 81 Mg Ec Tablet) 81 mg PO DAILY [facility] Last Admin: 07/03/21 09:13 Dose: 81 mg Documented by: Atorvastatin Calcium (Atorvastatin 40 Mg Tablet) 40 mg PO QPM [facility] Last Admin: 07/03/21 17:22 Dose: 40 mg Documented by: Chlorhexidine Gluconate (Chlorhexidine Gluconate 4% Btl 118 Ml) 1 applic TOPICAL BID [facility] Last Admin: 07/03/21 17:20 Dose: Not Given Documented by: Clonidine HCl (Clonidine 0.3 Mg/24 Hr Patch) 1 patch TRANSDERMA Q7D [facility] Last Admin: 06/30/21 08:31 Dose: 1 patch Documented by: Dextrose (Dextrose 50% Syringe 50 Ml) 25 ml IVP ONCE PRN; Protocol PRN Reason: hypoglycemia protocol Dextrose (Dextrose 50% Syringe 50 Ml) 50 ml IVP PRN PRN; Protocol PRN Reason: hypoglycemia protocol Docusate Sodium (Docusate Sodium 10 Mg/Ml (5ml) Liq) 100 mg PO BID [facility] Last Admin: 07/03/21 17:19 Dose: Not Given Documented by: Folic Acid (Folic Acid 1 Mg Tablet) 1 mg PO DAILY [facility] Last Admin: 07/03/21 09:13 Dose: 1 mg Documented by: Glucagon (Glucagon 1 Mg/Ml Inj 1 Ml) 1 mg IM ONCE PRN; Protocol PRN Reason: Adult Acute Hypoglycemia Prot. Hydralazine HCl (Hydralazine 20 Mg/Ml Inj 1 Ml) 10 mg IVP Q4H PRN PRN Reason: Nausea and Vomiting, Severe Last Admin: 07/01/21 16:49 Dose: 10 mg Documented by: Hydralazine HCl (Hydralazine 25 Mg Tablet) 50 mg PO TID [facility] Last Admin: 07/03/21 20:26 Dose: 50 mg Documented by: Hydrochlorothiazide (Hydrochlorothiazide 25 Mg Tablet) 25 mg PO DAILY [facility] Last Admin: 07/03/21 09:13 Dose: 25 mg Documented by: Dextrose (D5w) 500 mls @ 100 mls/hr IV ONCE PRN; Protocol PRN Reason: Adult Acute Hypoglycemia Prot Insulin Glargine (Insulin Glargine 100 Units/1 Ml) 5 unit SUBCUT Q12H [facility] Last Admin: 07/03/21 20:26 Dose: 5 unit Documented by: Insulin Human Lispro (Insulin Lispro 100 Unit/1 Ml) 0 unit SUBCUT BEDTIME [facility]; Protocol Last Admin: 07/03/21 20:26 Dose: 2 unit Documented by: Insulin Human Lispro (Insulin Lispro 100 Unit/1 Ml) 0 unit SUBCUT TIDWM [facility]; Protocol Last Admin: 07/03/21 17:23 Dose: 6 unit Documented by: Isosorbide Mononitrate (Isosorbide Mononitrate Er 60 Mg Tablet) 120 mg PO DAILY [facility] Last Admin: 07/03/21 09:13 Dose: 120 mg Documented by: Labetalol HCl (Labetalol 5 Mg/Ml Sdv 20ml) 10 mg IVP Q4H PRN PRN Reason: SBP>180 or DBP>90 hold if HR<60 Last Admin: 07/02/21 11:42 Dose: 10 mg Documented by: Metoprolol Tartrate (Metoprolol Tartrate 50 Mg Tablet) 75 mg PO Q12H [facility] Last Admin: 07/04/21 00:16 Dose: 75 mg Documented by: Minoxidil (Minoxidil 10 Mg Tablet) 5 mg PO DAILY [facility] Multivitamins Therapeutic (Multivitamin Therapeutic Tablet) 1 tab PO DAILY [facility] Last Admin: 07/03/21 09:13 Dose: 1 tab Documented by: Nicotine (Nicotine 21 Mg Patch) 1 patch TRANSDERMA DAILY [facility] Last Admin: 07/03/21 09:13 Dose: 1 patch Documented by: Olanzapine (Olanzapine 5 Mg Tablet) 5 mg PO BEDTIME [facility] Last Admin: 07/03/21 20:26 Dose: 5 mg Documented by: Ondansetron HCl (Ondansetron 2 Mg/Ml Sdv 2 Ml) 4 mg IVP Q8H PRN PRN Reason: NAUSEA AND VOMITING Pantoprazole Sodium (Pantoprazole Dr 40 Mg Tablet) 40 mg PO DAILY [facility] Last Admin: 07/03/21 09:13 Dose: 40 mg Documented by: Spironolactone (Spironolactone 25 Mg Tablet) 50 mg PO BID [facility] Last Admin: 07/03/21 17:22 Dose: 50 mg Documented by: Thiamine Mononitrate (Thiamine 100 Mg Tablet) 100 mg PO DAILY [facility] Last Admin: 07/03/21 09:13 Dose: 100 mg Documented by: Vitals/I&O/Wt Last Vital Signs Temp 97.2 F L 07/04/21 04:00 Pulse 61 07/04/21 06:00 Resp 22 H 07/04/21 06:00 BP 160/64 07/04/21 06:00 Pulse Ox 97 07/04/21 04:00 07/03/21 07/03/21 07/04/21 14:59 22:59 06:59 Intake Total 480 / 480 120 / 600 Output Total Balance 480 / 480 120 / 600 -1 / 599 Weight last 48 hrs Weight 148.143 kg Weight 151.318 kg Physical Exam Narrative: comfortable in bed, NARD heent- nc/at, eomi neck supple lungs clear b/l heart -paced rhythm + s1, s2 abd soft, nt, nd, + bs ext 2+ upper edema, 2-3+ leg edema, poor pulses rt foot w/ an ischemic toe neuro- awake, alert oriented x 2+ no christine Urinary Catheter Management: Christine: Cath Placed During This Visit: yes, but has since been removed by the nurse Reason for Continuing Indwelling Catheter: Decision to DC Catheter Urinary Catheter Date of Insertion: 06/25/21 Urinary Catheter Time of Insertion: 17:28 Date Urinary Catheter Removed: 07/02/21 Time Urinary Catheter Discontinued: 07:45 Data : 07/03/21 02:45 07/03/21 02:45 A&P Assessment and plan (1) Acute kidney injury: 1. Acute kidney injury Likely bradycardic cardiorenal syndrome Renal function recovered to cr 1.8 -1.9 mg/dl. -cr now up to 2.1 - likely from drop in BP -montor cr if he allows Monitor strict I's and O's Avoid usual nephrotoxic agents Dose medication for CKD stage 3 b/4. -christine out 2. In May at [place] his cr was 1.8 mg/dl and k 5- giving him stage 3b/4 CKD- age, htn, dm 3. HTN -improved -cont current meds -ua negative not c/w vasculitis 4.bradycardia -pacexd. lower metoprolol 5. hyperglycemia - gluc control 6. leukocytosis - slowly improving. wbc still 17 7. ck 606 8 elevated bnp noted- on aldactone and hctz Thank you for consultation Patient seen and examined via telemedicine, with the assistance of the bedside RN 30 min spent in evaluation and mgmt of patient Status: Acute Plan see above Attestations Medical Necessity Statement*: per cardiology Time Spent in Patient Care: 16 - 35 minutes (>than 50% of time spent in counselling and/or direct pt care on unit). 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
[2021-07-04 07:30] LABS: Glucose Point of Care 198 mg/dL (70-110)
[2021-07-04 08:36] LABS: Basophils # 0.1 10^3/uL (0.0-0.1); Basophils % 0.3 %; Eosinophils # 0.2 10^3/uL (0.0-0.8); Eosinophils % 1.4 %; Hematocrit 32.8 % (42.0-52.0); Hemoglobin 11.3 g/dL (11.7-16.6); Mean Corpuscular HGB Conc 34.5 g/dL (30.0-36.0); Mean Corpuscular Hemoglobin 29.3 pg (28.0-34.0); Mean Platelet Volume 10.6 fL (7.4-10.4); Monocytes # 1.2 10^3/uL (0.2-0.9); Monocytes % 7.3 %; Neutrophils # 12.66 10^3/uL (1.8-7.7); Neutrophils % 77.7 %; Nucleated Red Blood Cells % 0 %; Platelet Count 307 10^3/cmm (130-400); Red Blood Count 3.86 10^6/uL (4.1-5.3); Red Cell Distribution Width 12.5 % (12.1-15.1); White Blood Count 16.3 10^3/uL (4.0-10.0)
[2021-07-04] MEDS: isosorbide mononitrate ER 60 mg Tablet 120 MG PO (08:53)
[2021-07-04] MEDS: nicotine 21 mg Patch 1 PATCH TRANSDERMA (08:53)
[2021-07-04] MEDS: folic acid 1 mg Tablet PO (08:54)
[2021-07-04] MEDS: spironolactone 25 mg Tablet 50 MG PO ×2 (08:54→18:12)
[2021-07-04] MEDS: amlodipine 10 mg Tablet PO (08:54)
[2021-07-04] MEDS: amoxicillin-clav 875-125 mg Tablet 1 TAB PO ×2 (08:54→18:12)
[2021-07-04] MEDS: metoprolol tartrate 50 mg Tablet PO ×2 (08:54→18:13)
[2021-07-04] MEDS: hyDRALAzine 25 mg Tablet 50 MG PO ×3 (08:55→20:48)
[2021-07-04] MEDS: aspirin 81 mg EC Tablet PO (08:55)
[2021-07-04] MEDS: minoxidil 10 mg Tablet 5 MG PO (08:55)
[2021-07-04] MEDS: multivitamin therapeutic Tablet 1 TAB PO (08:55)
[2021-07-04] MEDS: insulin lispro 100 unit/1 mL SUBCUT ×4 (08:56→21:58)
[2021-07-04] MEDS: pantoprazole DR 40 mg Tablet PO (09:00)
[2021-07-04] MEDS: insulin glargine 100 units/1 mL 5 UNIT SUBCUT ×2 (09:00→21:58)
[2021-07-04] MEDS: apixaban 5 mg Tablet PO ×2 (09:00→20:48)
[2021-07-04 09:02] LABS: NT Pro B Type Natriuretic Pept 5478 pg/mL (0-125); Procalcitonin 0.25 ng/mL (0-0.5)
[2021-07-04] MEDS: thiamine 100 mg Tablet PO (09:07)
[2021-07-04] MEDS: hydroCHLOROthiazide 25 mg Tablet PO (09:07)
--- NOTE | 2021-07-04 09:08 | PM.PN ---
Subjective Subjective: Giles is cognitively more confused today. He told me that they took him over to 28 . He does not remember coming back. He thinks he went someplace last night to spend the night. He does not remember what he did. He thinks he must of slept most of the night. No other new issues. Vitals/I&O/Wt Last Vital Signs Temp 97.2 F L 07/04/21 04:00 Pulse 61 07/04/21 06:00 Resp 22 H 07/04/21 06:00 BP 160/64 07/04/21 06:00 Pulse Ox 97 07/04/21 04:00 07/03/21 07/04/21 07/04/21 22:59 06:59 14:59 Intake Total 120 / 600 Output Total Balance 120 / 600 -9 Weight last 48 hrs Weight 326 lb 9.6 oz Weight 333 lb 9.6 oz Physical Exam Narrative: GENERAL: In general he is confused but otherwise not in any distress HEENT: Exam within normal limits. NECK: Supple without jugular vein distention. The carotid upstroke is normal without bruits. BACK: Exam normal. LUNGS: Clear. HEART: Regular rate and rhythm. ABDOMEN: Benign without organomegaly or tenderness. EXTREMITIES: No edema. NEUROLOGIC: Exam normal. SKIN: Unremarkable. Urinary Catheter Management: Santo: Cath Placed During This Visit: yes, but has since been removed by the nurse Reason for Continuing Indwelling Catheter: Decision to DC Catheter Urinary Catheter Date of Insertion: 06/25/21 Urinary Catheter Time of Insertion: 17:28 Date Urinary Catheter Removed: 07/02/21 Time Urinary Catheter Discontinued: 07:45 Data : 07/04/21 08:00 07/03/21 02:45 A&P Assessment and plan (1) Status post cardiac pacemaker procedure: Status: Acute (2) Altered mental status: Status: Acute (3) Acute kidney injury: Status: Acute (4) Aspiration pneumonia: Status: Acute (5) Congestive heart failure: Status: Chronic Qualifiers: Heart failure chronicity: acute on chronic Heart failure type: diastolic Qualified Code(s): I50.33 - Acute on chronic diastolic (congestive) heart failure (6) Obstructive sleep apnea: Status: Chronic (7) Hyperlipidemia: Status: Chronic Qualifiers: Hyperlipidemia type: unspecified Qualified Code(s): E78.5 - Hyperlipidemia, unspecified (8) Chronic anticoagulation: Status: Chronic (9) Diabetes mellitus, type II: Status: Chronic Qualifiers: Diabetes mellitus superintendent terminal insulin use: with superintendent terminal use Diabetes mellitus complication status: with neurologic complications Diabetes mellitus complication detail: with polyneuropathy Qualified Code(s): E11.42 - Type 2 diabetes mellitus with diabetic polyneuropathy; 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 Coding Level of Care Code Established Pt Acute Processor Grain for gonzález Tee Patient Type Established History Detailed Exam Detailed Medical Decision Making Moderate Complexity Diagnoses Status post cardiac pacemaker procedure Z95.0 Altered mental status R41.82 Acute kidney injury N17.9 Aspiration pneumonia J69.0 Congestive heart failure I50.33 Heart failure chronicity: acute on chronic Heart failure type: diastolic Obstructive sleep apnea G47.33 Hyperlipidemia E78.5 Hyperlipidemia type: unspecified Chronic anticoagulation Z79.01 Diabetes mellitus, type II E11.42; Z79.4 Diabetes mellitus superintendent terminal insulin use: with half-way use Diabetes mellitus complication status: with neurologic complications Diabetes mellitus complication detail: with polyneuropathy Nicotine dependence, chewing tobacco, with other nicotine-induced disorders F17.228 PAD (peripheral artery disease) I73.9 Atrial fibrillation I48.11 Atrial fibrillation type: longstanding persistent Accelerated hypertension I10 Time Spent (min) 30
[2021-07-04 09:13] LABS: Alanine Aminotransferase 28 U/L (0-41); Albumin Level 3.3 g/dL (3.5-5.2); Alkaline Phosphatase 64 IU/L (40-130); Anion Gap 16.7 (5-19); Aspartate Amino Transferase 23 U/L (0-40); Blood Urea Nitrogen 53 mg/dL (8-23); Carbon Dioxide 21 mmol/L (22-29); Chloride 106 mmol/L (98-107); Creatine Phosphokinase 260 U/L (39-308); Globulin 3.6 g/dL (1.3-4.6); Glucose 210 mg/dL (65-115); Magnesium 2.7 mg/dL (1.7-2.3); Osmolality Calculated 311 mOsm/kg (285-295); Phosphorus 3.8 mg/dL (2.5-4.5); Potassium 3.7 mmol/L (3.5-5.1); Sodium 140 mmol/L (136-145); Total Bilirubin 0.4 mg/dL (0.15-1.2); Total Protein 6.9 g/dL (6.6-8.7)
[2021-07-04 12:00] LABS: Glucose Point of Care 200 mg/dL (70-110)
--- NOTE | 2021-07-04 14:12 | PC.NURSE ---
pt up dressed in chair requesting to go home told doctor prior will leave ama.. took all monitor wires off and removed blood pressure cuff .. family member here talked with pt
--- NOTE | 2021-07-04 14:55 | PM.PN ---
Subjective Subjective: Patient was seen this morning, nursing staff at bedside -He was sitting up into a chair -He tells me that he wants to go home today, he will leave AGAINST MEDICAL ADVICE, he tells that he will wait until 5 PM, and see how he does regardless he wants to go home -He tells me that all he needs is his walker, and that he will get into his truck, and drive home -He tells me that if he needs to come back to the hospital he will -I discussed with him that he has generalized weakness, deconditioning with his hospitalization, has been in the ICU since June 25, he was on the ventilator for 24 hours -According to physical therapy he is a moderate assist sit to stand, bed to chair total dependent, he would benefit from correction stay -However patient refuses correction stay, tells me he wants to go home -I discussed with patient that he has a high risk of poor outcome if he were to go home too soon, I would recommend continued inpatient physical therapy and consideration of discharge to correction for skilled rehab, however patient refuses -He tells me he wants to leave the hospital, he will come back if needed, he will manage on his own -Discussed morbidity and mortality of leaving the hospital AGAINST MEDICAL ADVICE, high risk of ICU mission, high risk of , high risk of reintubation, high risk of falls, fractures high risk of bleeding he, he voices any, all questions answered -He tells me that he is going to leave the hospital sometime today possibly after 5 PM, he has not made up his mind yet -I advised that if he leaves the hospital it will be AGAINST MEDICAL ADVICE Vitals/I&O/Wt Last Vital Signs Temp 97.2 F L 07/04/21 04:00 Pulse 60 07/04/21 12:00 Resp 19 H 07/04/21 12:00 BP 195/74 07/04/21 10:00 Pulse Ox 93 07/04/21 07:00 07/03/21 07/04/21 07/04/21 22:59 06:59 14:59 Intake Total 120 / 600 200 / 200 Output Total Balance 120 / 600 - 599 200 / 200 Weight last 48 hrs Weight 148.143 kg Weight 151.318 kg Physical Exam Const: COMMON NORMALS: no acute distress and patient oriented x3 Resp: COMMON NORMALS: normal respiratory effort, No retractions, No use of accessory muscles and clear to auscultation bilaterally AUSCULTATION: clear to auscultation bilaterally Cardio: COMMON NORMALS: regular rate, regular rhythm, S1 normal heart sound present and S2 normal heart sound present RATE: regular rate RHYTHM: regular rhythm HEART SOUNDS: S1 normal heart sound present and S2 normal heart sound present GI: COMMON NORMALS: Normal to inspection, nondistended, normoactive bowel sounds present, Soft to palpation and non-tender PALPATION: Yes Soft to palpation Extremity: COMMON NORMALS: no pedal edema Neuro: COMMON NORMALS: patient oriented x3 Psych: COMMON NORMALS: mental status grossly normal Urinary Catheter Management: Santo: Cath Placed During This Visit: yes, but has since been removed by the nurse Reason for Continuing Indwelling Catheter: Decision to DC Catheter Urinary Catheter Date of Insertion: 06/25/21 Urinary Catheter Time of Insertion: 17:28 Date Urinary Catheter Removed: 07/02/21 Time Urinary Catheter Discontinued: 07:45 Data : 07/04/21 08:00 07/04/21 08:00 A&P Assessment and plan (1) Aspiration pneumonia: Status: Acute (2) Acute kidney injury: Status: Acute (3) Bradycardia: Symptomatic with heart rate generally staying 20s to 40s. Not on beta-blockade due to known history of bradycardia associated with this. Only other notable medications are isosorbide and amlodipine. In talking with him he does have untreated sleep apnea, prostatic hypertrophy and increasing urinary symptoms. Presently however has significant hyperkalemia with initial level at 7.2. TSH was checked and was normal. Status: Acute (4) Hyperkalemia: Has been on potassium supplementation, also on spironolactone, losartan and has acute kidney injury compared to baseline labs, EKG with peaked T waves initially. Labs from the [facility] on June 17 showed potassium of 5.0. Status: Acute (5) Acute kidney injury: On chronic kidney disease stage 2-3, BUN and creatinine at [facility] on 06/17/2021 was 23/1.79. In February 2021 BUN and creatinine were 12/1.1. He is chronically on ARB, Aldactone, Lasix. Also with history of prostatic hypertrophy with worsening lower urinary tract symptoms. Has history of ureteral stone in the past also. Reports noncompliance with his water pills, increasing overall girth. Status: Acute (6) Accelerated hypertension: Chronically on amlodipine, Lasix, isosorbide, losartan and Aldactone, has not had his medications today Status: Acute (7) Congestive heart failure: Acute on chronic preserved ejection fraction last echocardiogram Status: Chronic Qualifiers: Heart failure chronicity: acute on chronic Heart failure type: diastolic Qualified Code(s): I50.33 - Acute on chronic diastolic (congestive) heart failure (8) Abnormal nuclear stress test: Per Dr. Segura clinical notes although upon review it looks like abnormalities could also be consistent with attenuation defects. This is from stress testing done in September of last year. Status: Acute (9) Coronary artery disease: Has not required previous intervention. Records indicate last arteriogram showed 55% narrowing and unclear vessel. Describes anginal type symptoms lately although this could be related to demand ischemia from impact of bradycardia Status: Chronic (10) Atrial fibrillation: Presently with slow ventricular response, chronic Status: Chronic Qualifiers: Atrial fibrillation type: longstanding persistent Qualified Code(s): I48.11 - Longstanding persistent atrial fibrillation (11) Chronic anticoagulation: Chronically on Eliquis Status: Chronic (12) Diabetes mellitus, type II: Hemoglobin A1c at the [facility] June 17, 2021 was 8.0 Chronically on insulin and semaglutide Status: Chronic Qualifiers: Diabetes mellitus residential insulin use: with medical terminologist use Diabetes mellitus complication status: with neurologic complications Diabetes mellitus complication detail: with polyneuropathy Qualified Code(s): E11.42 - Type 2 diabetes mellitus with diabetic polyneuropathy; Z79.4 - residential (current) use of insulin (13) BPH NOS w/o ur obs/LUTS: Chronically on finasteride and Flomax, describes progressive lower urinary symptoms suggestive of potential bladder outlet obstruction contributing to acute kidney injury Status: Chronic (14) Calculus of proximal ureter: Has been present for some time, nonobstructing or at least in the same location last time it was evaluated, patient does not describe classic symptoms of kidney stones but at risk of having an obstructive process Status: Acute (15) Hyperlipidemia: Lipid panel checked June 17, 2021 at the [facility] showed total cholesterol of 206, triglycerides of 189, HDL of 43.9 and calculated LDL of 124.3 with an HDL to total cholesterol ratio of 21.3% Chronically on statin Status: Chronic Qualifiers: Hyperlipidemia type: unspecified Qualified Code(s): E78.5 - Hyperlipidemia, unspecified (16) Obstructive sleep apnea: Does not wear CPAP by choice Status: Chronic (17) BMI 40.0-44.9, adult: Status: Acute (18) Nicotine dependence, chewing tobacco, with other nicotine-induced disorders: Status: Chronic (19) Altered mental status: Status: Acute Plan Acute hypertensive urgency -Losartan 50 twice daily -Metoprolol 50 twice daily -Minoxidil 5 every 12 hours -Clonidine patch 0.3 q7 days -Hydralazine 75 3 times daily -No pitting edema today, creatinine 1.7, hold diuretics Acute hyponatremia, resolved Acute symptomatic bradycardia -Status post pacemaker placement -Dr. Fernandez on consult Full code Protonix for GI prophylaxis On Eliquis for DVT prophylaxis Altered mental status, likely secondary to aspiration pneumonia, hypoxia, hypertensive encephalopathy -Much more alert today to person, to place, answers questions, follows commands -Wean nitro drip, wean Cardene drip for hypertensive emergency -On Augmentin -CT of the head within normal limits -Blood cultures, urine cultures -Advance diet as tolerated -Zyprexa, Ativan agitation Acute respiratory failure, hypoxia, -Switch to Augmentin -Has a history of severe diastolic CHF, requiring multiple hospitalizations - hold diuresis for today -Status post extubation 06/28/2021, requiring BiPAP therapy DANITZA, 1.7, elevated CPK, has a history of rhabdomyolysis Hyperkalemia, resolved, continue to monitor History of atrial fibrillation, on Eliquis, resume Eliquis Type II diabetes mellitus, low-dose sliding scale, add Lantus History of CVA, monitor History of CAD Hypertension, hold home medications Peripheral arterial disease, bilateral extremities are much more pink, flushed, DP PT pulses palpable, bilateral extremities improving coloration, needs to follow-up with cardiothoracic surgery as outpatient Move out of ICU Attestations Medical Necessity Statement*: Patient requires hospitalization due to physical deconditioning, persistent leukocytosis, DANITZA, hypertension, bradycardia, Coding Level of Care Code 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[facility] [place] Diagnoses Aspiration pneumonia J69.0 Acute kidney injury N17.9 Bradycardia R00.1 Hyperkalemia E87.5 Acute kidney injury N17.9 Accelerated hypertension I10 Congestive heart failure I50.33 Heart failure chronicity: acute on chronic Heart failure type: diastolic Abnormal nuclear stress test R94.39 Coronary artery disease I25.10 Atrial fibrillation I48.11 Atrial fibrillation type: longstanding persistent Chronic anticoagulation Z79.01 Diabetes mellitus, type II E11.42; Z79.4 Diabetes mellitus medical terminologist insulin use: with residential use Diabetes mellitus complication status: with neurologic complications Diabetes mellitus complication detail: with polyneuropathy BPH NOS w/o ur obs/LUTS N40.0 Calculus of proximal ureter N20.1 Hyperlipidemia E78.5 Hyperlipidemia type: unspecified Obstructive sleep apnea G47.33 BMI 40.0-44.9, adult Z68.41 Nicotine dependence, chewing tobacco, with other nicotine-induced disorders F17.228 Altered mental status R41.82
--- NOTE | 2021-07-04 15:01 | PC.NURSE ---
report given and transfered to room 277 - 1
--- NOTE | 2021-07-04 16:13 | PC.SOCIAL ---
IMM Updated Updated pt on IMM. No questions voiced. Provided pt a copy. Initialed, dated, & timed copy in chart.
[2021-07-04] MEDS: atorvastatin 40 mg Tablet PO (18:12)
[2021-07-04 21:46] LABS: Glucose Point of Care 185 mg/dL (70-110)
[2021-07-04 21:46] LABS: Glucose Point of Care 195 mg/dL (70-110)
[2021-07-05] VITALS (12 sets, daily range): BP systolic 151–173; BP diastolic 62–84; PULSE 60–89; RESP 16–22; TEMP 36.4–37.1; O2SAT 94–97; BMI 43.0
[2021-07-05 05:52] LABS: Basophils # 0.1 10^3/uL (0.0-0.1); Basophils % 0.4 %; Eosinophils # 0.1 10^3/uL (0.0-0.8); Eosinophils % 0.7 %; Hematocrit 34.6 % (42.0-52.0); Hemoglobin 11.6 g/dL (11.7-16.6); Lymphocytes # 2.5 10^3/uL (0.8-4.8); Lymphocytes % 13.2 %; Mean Corpuscular HGB Conc 33.5 g/dL (30.0-36.0); Mean Corpuscular Hemoglobin 28.6 pg (28.0-34.0); Mean Corpuscular Volume 85.4 fl (80-94); Mean Platelet Volume 10.5 fL (7.4-10.4); Monocytes # 1.5 10^3/uL (0.2-0.9); Monocytes % 7.8 %; Neutrophils # 14.25 10^3/uL (1.8-7.7); Neutrophils % 75.9 %; Nucleated Red Blood Cells % 0 %; Platelet Count 389 10^3/cmm (130-400); Red Blood Count 4.05 10^6/uL (4.1-5.3); Red Cell Distribution Width 12.5 % (12.1-15.1); White Blood Count 18.8 10^3/uL (4.0-10.0)
[2021-07-05 06:09] LABS: C Reactive Protein 178.3 mg/L (0.0-4.9)
[2021-07-05] MEDS: metoprolol tartrate 50 mg Tablet PO ×2 (06:12→17:49)
[2021-07-05 06:20] LABS: NT Pro B Type Natriuretic Pept 6423 pg/mL (0-125); Procalcitonin 0.32 ng/mL (0-0.5)
[2021-07-05 06:31] LABS: Alanine Aminotransferase 29 U/L (0-41); Albumin Level 3.6 g/dL (3.5-5.2); Alkaline Phosphatase 75 IU/L (40-130); Anion Gap 18.7 (5-19); Aspartate Amino Transferase 30 U/L (0-40); Blood Urea Nitrogen 59 mg/dL (8-23); Calcium 9.3 mg/dL (8.5-10.5); Carbon Dioxide 20 mmol/L (22-29); Chloride 101 mmol/L (98-107); Glucose 191 mg/dL (65-115); Magnesium 2.9 mg/dL (1.7-2.3); Osmolality Calculated 304 mOsm/kg (285-295); Phosphorus 4.2 mg/dL (2.5-4.5); Potassium 3.7 mmol/L (3.5-5.1); Sodium 136 mmol/L (136-145); Total Bilirubin 0.5 mg/dL (0.15-1.2); Total Protein 7.6 g/dL (6.6-8.7)
[2021-07-05 06:42] LABS: Glucose Point of Care 182 mg/dL (70-110)
--- NOTE | 2021-07-05 08:47 | PM.PN ---
Subjective Subjective: Postop day #8 status post single-lead pacemaker implantation. Mr. Guillaume is sitting up on the side of the bed during my visit this morning. He is alert and oriented though he does have substantial amnesia as to his ICU stay. He appears very appropriate and mentation appears to be at baseline. There is a dressing in place over his left subclavicular region at the pacemaker insertion site. Vitals/I&O/Wt Last Vital Signs Temp 98.3 F 07/05/21 08:00 Pulse 60 07/05/21 08:22 Resp 18 07/05/21 08:22 BP 168/84 07/05/21 08:00 Pulse Ox 95 07/05/21 08:22 07/04/21 07/05/21 07/05/21 22:59 06:59 14:59 Intake Total 500 / 700 250 / 950 Balance 500 / 700 250 / 950 Weight last 48 hrs Weight 326 lb 9.6 oz Weight 326 lb 9.6 oz Physical Exam Urinary Catheter Management: Santo: Cath Placed During This Visit: yes, but has since been removed by the nurse Reason for Continuing Indwelling Catheter: Decision to DC Catheter Urinary Catheter Date of Insertion: 06/25/21 Urinary Catheter Time of Insertion: 17:28 Date Urinary Catheter Removed: 07/02/21 Time Urinary Catheter Discontinued: 07:45 Data : 07/05/21 05:41 07/05/21 05:41 Micro: Microbiology 06/29/21 17:43 Blood Culture - Final Blood NO GROWTH AFTER 5 DAYS 06/29/21 17:41 Blood Culture - Final Blood NO GROWTH AFTER 5 DAYS A&P Assessment and plan (1) Status post cardiac pacemaker procedure: POD #8 status post pacemaker implantation During my visit, physical therapy/Occupational Therapy arrived. Therefore, I did not perform a dressing change as he was preparing activities with them. Plan: I recommend continuing changing dressing daily and obtaining the incision line with Betadine. He may follow-up with [facility] 1 week after discharge. Status: Acute Attestations Medical Necessity Statement*: POD #8 status post pacemaker implantation secondary to complete heart block. 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
[2021-07-05] MEDS: spironolactone 25 mg Tablet 50 MG PO ×2 (09:19→17:48)
[2021-07-05] MEDS: amoxicillin-clav 875-125 mg Tablet 1 TAB PO ×2 (09:19→17:47)
[2021-07-05] MEDS: thiamine 100 mg Tablet PO (09:19)
[2021-07-05] MEDS: aspirin 81 mg EC Tablet PO (09:19)
[2021-07-05] MEDS: pantoprazole DR 40 mg Tablet PO (09:20)
[2021-07-05] MEDS: folic acid 1 mg Tablet PO (09:20)
[2021-07-05] MEDS: hyDRALAzine 25 mg Tablet 50 MG PO ×3 (09:20→20:07)
[2021-07-05] MEDS: hydroCHLOROthiazide 25 mg Tablet PO (09:20)
[2021-07-05] MEDS: multivitamin therapeutic Tablet 1 TAB PO (09:20)
[2021-07-05] MEDS: isosorbide mononitrate ER 60 mg Tablet 120 MG PO (09:20)
[2021-07-05] MEDS: amlodipine 10 mg Tablet PO (09:20)
[2021-07-05] MEDS: nicotine 21 mg Patch 1 PATCH TRANSDERMA (09:21)
[2021-07-05] MEDS: apixaban 5 mg Tablet PO ×2 (09:27→20:10)
[2021-07-05] MEDS: insulin glargine 100 units/1 mL 5 UNIT SUBCUT ×2 (09:28→20:10)
[2021-07-05] MEDS: insulin lispro 100 unit/1 mL SUBCUT ×4 (09:28→20:10)
--- NOTE | 2021-07-05 11:59 | PM.PN ---
Subjective Subjective: Patient was seen this morning, he sitting up in a chair, continues to tell me that he had generalized weakness, particularly in his lower extremities, has bilateral extremity edema Vitals/I&O/Wt Last Vital Signs Temp 98.3 F 07/05/21 08:00 Pulse 60 07/05/21 08:22 Resp 18 07/05/21 08:22 BP 168/84 07/05/21 08:00 Pulse Ox 95 07/05/21 08:22 07/04/21 07/05/21 07/05/21 22:59 06:59 14:59 Intake Total 500 / 700 250 / 950 Output Total 220 / 220 Balance 500 / 700 250 / 950 -220 / -220 Weight last 48 hrs Weight 148.143 kg Weight 148.143 kg Physical Exam Const: COMMON NORMALS: no acute distress and patient oriented x3 Resp: COMMON NORMALS: normal respiratory effort, No retractions, No use of accessory muscles and clear to auscultation bilaterally AUSCULTATION: clear to auscultation bilaterally Cardio: COMMON NORMALS: regular rate, regular rhythm, S1 normal heart sound present and S2 normal heart sound present RATE: regular rate RHYTHM: regular rhythm HEART SOUNDS: S1 normal heart sound present and S2 normal heart sound present GI: COMMON NORMALS: Normal to inspection, nondistended, normoactive bowel sounds present, Soft to palpation and non-tender PALPATION: Yes Soft to palpation Extremity: NARRATIVE EXTREMITY EXAM: 1+ pitting edema bilateral lower extremity Neuro: COMMON NORMALS: patient oriented x3 Psych: COMMON NORMALS: mental status grossly normal Urinary Catheter Management: Santo: Cath Placed During This Visit: yes, but has since been removed by the nurse Reason for Continuing Indwelling Catheter: Decision to DC Catheter Urinary Catheter Date of Insertion: 06/25/21 Urinary Catheter Time of Insertion: 17:28 Date Urinary Catheter Removed: 07/02/21 Time Urinary Catheter Discontinued: 07:45 Data : 07/05/21 05:41 07/05/21 05:41 Micro: Microbiology 06/29/21 17:43 Blood Culture - Final Blood NO GROWTH AFTER 5 DAYS 06/29/21 17:41 Blood Culture - Final Blood NO GROWTH AFTER 5 DAYS A&P Assessment and plan (1) Aspiration pneumonia: Status: Acute (2) Acute kidney injury: Status: Acute (3) Bradycardia: Symptomatic with heart rate generally staying 20s to 40s. Not on beta-blockade due to known history of bradycardia associated with this. Only other notable medications are isosorbide and amlodipine. In talking with him he does have untreated sleep apnea, prostatic hypertrophy and increasing urinary symptoms. Presently however has significant hyperkalemia with initial level at 7.2. TSH was checked and was normal. Status: Acute (4) Hyperkalemia: Has been on potassium supplementation, also on spironolactone, losartan and has acute kidney injury compared to baseline labs, EKG with peaked T waves initially. Labs from the [facility] on June 17 showed potassium of 5.0. Status: Acute (5) Acute kidney injury: On chronic kidney disease stage 2-3, BUN and creatinine at [facility] on 06/17/2021 was 23/1.79. In February 2021 BUN and creatinine were 12/1.1. He is chronically on ARB, Aldactone, Lasix. Also with history of prostatic hypertrophy with worsening lower urinary tract symptoms. Has history of ureteral stone in the past also. Reports noncompliance with his water pills, increasing overall girth. Status: Acute (6) Accelerated hypertension: Chronically on amlodipine, Lasix, isosorbide, losartan and Aldactone, has not had his medications today Status: Acute (7) Congestive heart failure: Acute on chronic preserved ejection fraction last echocardiogram Status: Chronic Qualifiers: Heart failure chronicity: acute on chronic Heart failure type: diastolic Qualified Code(s): I50.33 - Acute on chronic diastolic (congestive) heart failure (8) Abnormal nuclear stress test: Per Dr. Segura clinical notes although upon review it looks like abnormalities could also be consistent with attenuation defects. This is from stress testing done in September of last year. Status: Acute (9) Coronary artery disease: Has not required previous intervention. Records indicate last arteriogram showed 55% narrowing and unclear vessel. Describes anginal type symptoms lately although this could be related to demand ischemia from impact of bradycardia Status: Chronic (10) Atrial fibrillation: Presently with slow ventricular response, chronic Status: Chronic Qualifiers: Atrial fibrillation type: longstanding persistent Qualified Code(s): I48.11 - Longstanding persistent atrial fibrillation (11) Chronic anticoagulation: Chronically on Eliquis Status: Chronic (12) Diabetes mellitus, type II: Hemoglobin A1c at the [facility] June 17, 2021 was 8.0 Chronically on insulin and semaglutide Status: Chronic Qualifiers: Diabetes mellitus intermediate designer insulin use: with intermediate designer use Diabetes mellitus complication status: with neurologic complications Diabetes mellitus complication detail: with polyneuropathy Qualified Code(s): E11.42 - Type 2 diabetes mellitus with diabetic polyneuropathy; Z79.4 - senior care (current) use of insulin (13) BPH NOS w/o ur obs/LUTS: Chronically on finasteride and Flomax, describes progressive lower urinary symptoms suggestive of potential bladder outlet obstruction contributing to acute kidney injury Status: Chronic (14) Calculus of proximal ureter: Has been present for some time, nonobstructing or at least in the same location last time it was evaluated, patient does not describe classic symptoms of kidney stones but at risk of having an obstructive process Status: Acute (15) Hyperlipidemia: Lipid panel checked June 17, 2021 at the [facility] showed total cholesterol of 206, triglycerides of 189, HDL of 43.9 and calculated LDL of 124.3 with an HDL to total cholesterol ratio of 21.3% Chronically on statin Status: Chronic Qualifiers: Hyperlipidemia type: unspecified Qualified Code(s): E78.5 - Hyperlipidemia, unspecified (16) Obstructive sleep apnea: Does not wear CPAP by choice Status: Chronic (17) BMI 40.0-44.9, adult: Status: Acute (18) Nicotine dependence, chewing tobacco, with other nicotine-induced disorders: Status: Chronic (19) Altered mental status: Status: Acute Plan Acute hypertensive urgency -Losartan 50 twice daily -Metoprolol 50 twice daily -Minoxidil 5 every 12 hours -Clonidine patch 0.3 q7 days -Hydralazine 75 3 times daily -No pitting edema today, creatinine 1.7, hold diuretics Acute hyponatremia, resolved Acute symptomatic bradycardia -Status post pacemaker placement -Dr. Fernandez on consult Full code Protonix for GI prophylaxis On Eliquis for DVT prophylaxis Altered mental status, likely secondary to aspiration pneumonia, hypoxia, hypertensive encephalopathy -Alert oriented x3, answers questions, follows commands -Hypertensive emergency resolved -On Augmentin -CT of the head within normal limits -Blood cultures, urine cultures -Advance diet as tolerated -Zyprexa, Ativan agitation Acute respiratory failure, hypoxia,, fluid overload, bilateral extremity edema -Switch to Augmentin -Has a history of severe diastolic CHF, requiring multiple hospitalizations -Start Lasix today -Status post extubation 06/28/2021, requiring BiPAP therapy DANITZA, 1.8, elevated CPK, has a history of rhabdomyolysis Hyperkalemia, resolved, continue to monitor History of atrial fibrillation, on Eliquis, resume Eliquis Type II diabetes mellitus, low-dose sliding scale, add Lantus History of CVA, monitor History of CAD Hypertension, hold home medications Peripheral arterial disease, bilateral extremities are much more pink, flushed, DP PT pulses palpable, bilateral extremities improving coloration, needs to follow-up with cardiothoracic surgery as outpatient PT OT Attestations Medical Necessity Statement*: Patient requires hospitalization for fluid overload, diastolic CHF, hypertension Coding Level of Care Code Acute 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 [facility] Diagnoses Aspiration pneumonia J69.0 Acute kidney injury N17.9 Bradycardia R00.1 Hyperkalemia E87.5 Acute kidney injury N17.9 Accelerated hypertension I10 Congestive heart failure I50.33 Heart failure chronicity: acute on chronic Heart failure type: diastolic Abnormal nuclear stress test R94.39 Coronary artery disease I25.10 Atrial fibrillation I48.11 Atrial fibrillation type: longstanding persistent Chronic anticoagulation Z79.01 Diabetes mellitus, type II E11.42; Z79.4 Diabetes mellitus intermediate designer insulin use: with intermediate designer use Diabetes mellitus complication status: with neurologic complications Diabetes mellitus complication detail: with polyneuropathy BPH NOS w/o ur obs/LUTS N40.0 Calculus of proximal ureter N20.1 Hyperlipidemia E78.5 Hyperlipidemia type: unspecified Obstructive sleep apnea G47.33 BMI 40.0-44.9, adult Z68.41 Nicotine dependence, chewing tobacco, with other nicotine-induced disorders F17.228 Altered mental status R41.82
[2021-07-05 12:41] LABS: Glucose Point of Care 220 mg/dL (70-110)
--- NOTE | 2021-07-05 12:52 | P.PN_ITS ---
Subjective Subjective: Giles has been moved up to the second floor. He seems fairly happy today. He does not have any complaints. Kidney function has been stable. His appetite has returned. No abdominal or chest pain. Pacemaker functioning normally. Blood pressure still running slightly high in the 170 range. M ultiple antihypertensives prescribed. Vitals/I&O/Wt Last Vital Signs Temp 98.2 F 07/05/21 12:00 Pulse 62 07/05/21 12:00 Resp 18 07/05/21 12:00 BP 173/65 07/05/21 12:00 Pulse Ox 94 07/05/21 12:00 07/04/21 07/05/21 07/05/21 22:59 06:59 14:59 Intake Total 500 / 700 250 / 950 Output Total 220 / 220 Balance 500 / 700 250 / 950 -220 / -220 Weight last 48 hrs Weight 326 lb 9.6 oz Weight 326 lb 9.6 oz Physical Exam Narrative: GENERAL: Alert and comfortable at rest. HEENT: Exam within normal limits. NECK: Supple without jugular vein distention. The carotid upstroke is normal without bruits. BACK: Exam normal. LUNGS: Clear. HEART: Regular rate and rhythm. Paced ABDOMEN: Benign without organomegaly or tenderness. EXTREMITIES: No edema. NEUROLOGIC: Exam normal. Still gets slightly confused with certain things but slowly his sensorium is clearing SKIN: Unremarkable. Urinary Catheter Management: Santo: Cath Placed During This Visit: yes, but has since been removed by the nurse Reason for Continuing Indwelling Catheter: Decision to DC Catheter Urinary Catheter Date of Insertion: 06/25/21 Urinary Catheter Time of Insertion: 17:28 Date Urinary Catheter Removed: 07/02/21 Time Urinary Catheter Discontinued: 07:45 Data : 07/05/21 05:41 07/05/21 05:41 Micro: Microbiology 06/29/21 17:43 Blood Culture - Final Blood NO GROWTH AFTER 5 DAYS 06/29/21 17:41 Blood Culture - Final Blood NO GROWTH AFTER 5 DAYS A&P Assessment and plan (1) Status post cardiac pacemaker procedure: Status: Acute (2) Altered mental status: Status: Acute (3) Acute kidney injury: Status: Acute (4) Aspiration pneumonia: Status: Acute (5) Congestive heart failure: Status: Chronic Qualifiers: Heart failure chronicity: acute on chronic Heart failure type: diastolic Qualified Code(s): I50.33 - Acute on chronic diastolic (congestive) heart failure (6) Obstructive sleep apnea: Status: Chronic (7) Hyperlipidemia: Status: Chronic Qualifiers: Hyperlipidemia type: unspecified Qualified Code(s): E78.5 - Hyperlipidemia, unspecified (8) Chronic anticoagulation: Status: Chronic (9) Atrial fibrillation: Status: Chronic Qualifiers: Atrial fibrillation type: longstanding persistent Qualified Code(s): I48.11 - Longstanding persistent atrial fibrillation (10) Coronary artery disease: Status: Chronic (11) PAD (peripheral artery disease): Status: Chronic (12) Nicotine dependence, chewing tobacco, with other nicotine-induced disorders: Status: Chronic Plan He is slowly improving. No changes made today. 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 for Chg Fwd Patient Type Established History Comprehensive Exam Comprehensive Medical Decision Making High Complexity Diagnoses Status post cardiac pacemaker procedure Z95.0 Altered mental status R41.82 Acute kidney injury N17.9 Aspiration pneumonia J69.0 Congestive heart failure I50.33 Heart failure chronicity: acute on chronic Heart failure type: diastolic Obstructive sleep apnea G47.33 Hyperlipidemia E78.5 Hyperlipidemia type: unspecified Chronic anticoagulation Z79.01 Atrial fibrillation I48.11 Atrial fibrillation type: longstanding persistent Coronary artery disease I25.10 PAD (peripheral artery disease) I73.9 Nicotine dependence, chewing tobacco, with other nicotine-induced disorders F17.228 Time Spent (min) 25
[2021-07-05] MEDS: FUROsemide 10 mg/mL SDV 4mL 40 MG IVP ×2 (13:01→21:30)
[2021-07-05] MEDS: potassium chloride ER 20 mEq Tablet PO ×2 (13:01→21:30)
[2021-07-05 17:30] LABS: Glucose Point of Care 245 mg/dL (70-110)
[2021-07-05] MEDS: atorvastatin 40 mg Tablet PO (17:53)
[2021-07-05 21:15] LABS: Glucose Point of Care 253 mg/dL (70-110)
[2021-07-06] VITALS (9 sets, daily range): BP systolic 111–165; BP diastolic 54–95; PULSE 60–88; RESP 16–20; TEMP 36.4–37.1; O2SAT 95–97
[2021-07-06 04:34] LABS: Basophils # 0.1 10^3/uL (0.0-0.1); Basophils % 0.5 %; Eosinophils # 0.2 10^3/uL (0.0-0.8); Eosinophils % 1.3 %; Hematocrit 34.7 % (42.0-52.0); Hemoglobin 11.1 g/dL (11.7-16.6); Lymphocytes # 2.2 10^3/uL (0.8-4.8); Lymphocytes % 13.2 %; Mean Corpuscular Hemoglobin 29.4 pg (28.0-34.0); Mean Platelet Volume 10.3 fL (7.4-10.4); Monocytes # 1.4 10^3/uL (0.2-0.9); Monocytes % 8.2 %; Neutrophils # 12.55 10^3/uL (1.8-7.7); Neutrophils % 74.5 %; Nucleated Red Blood Cells % 0 %; Platelet Count 353 10^3/cmm (130-400); Red Blood Count 3.77 10^6/uL (4.1-5.3); Red Cell Distribution Width 12.5 % (12.1-15.1); White Blood Count 16.8 10^3/uL (4.0-10.0)
[2021-07-06 04:59] LABS: NT Pro B Type Natriuretic Pept 4693 pg/mL (0-125); Procalcitonin 0.32 ng/mL (0-0.5)
[2021-07-06 05:11] LABS: Alanine Aminotransferase 25 U/L (0-41); Albumin Level 3.3 g/dL (3.5-5.2); Alkaline Phosphatase 72 IU/L (40-130); Aspartate Amino Transferase 22 U/L (0-40); Blood Urea Nitrogen 66 mg/dL (8-23); C Reactive Protein 141.2 mg/L (0.0-4.9); Calcium 9.3 mg/dL (8.5-10.5); Carbon Dioxide 18 mmol/L (22-29); Chloride 99 mmol/L (98-107); Globulin 3.3 g/dL (1.3-4.6); Glucose 208 mg/dL (65-115); Magnesium 2.8 mg/dL (1.7-2.3); Osmolality Calculated 301 mOsm/kg (285-295); Phosphorus 4.6 mg/dL (2.5-4.5); Sodium 133 mmol/L (136-145); Total Bilirubin 0.5 mg/dL (0.15-1.2); Total Protein 6.6 g/dL (6.6-8.7)
[2021-07-06 05:12] LABS: Anion Gap 19.7 (5-19); Potassium 3.7 mmol/L (3.5-5.1)
--- NOTE | 2021-07-06 05:25 | PC.NURSE ---
Patient resting in chair with feet elevated, remains weak and had to be re-educated as to why using a walker at this time is a safety risk. VSS, BLE remains quite edemitis, patient asked this nurse to rub feet for comfort and pain. Rubbed with lotion and patient stated it helped. Patient is pleasant and cooperative. Good UOP no new events and no needs at this time. Room clean and clutter free with call light in reach. Will continue to monitor until shift handoff to oncoming nurse.
[2021-07-06] MEDS: FUROsemide 10 mg/mL SDV 4mL 40 MG IVP (06:05)
[2021-07-06] MEDS: metoprolol tartrate 50 mg Tablet PO ×2 (06:05→18:05)
[2021-07-06 06:42] LABS: Glucose Point of Care 198 mg/dL (70-110)
--- NOTE | 2021-07-06 08:59 | P.PN_ITS ---
Subjective Subjective: Cardiology coverage Patient admitted to hospital with altered mental status, bradycardia, heart fa ilure, acute renal failure. Diagnosed with pneumonia/sepsis, status post ventilatory support. History of coronary artery disease, peripheral artery disease, type 2 diabetes, essential benign hypertension, chronic atrial fibrillation Patient is complaining of feeling tired and extremely weak. Unable to get up and move around by himself. He is getting up with assistance. No chest pain or shortness of breath. Has a decubitus ulcer which he seems to be healing Medications: Medication Review Details: Current Medications Acetaminophen (Acetaminophen 325 Mg Tablet) 650 mg PO Q6H PRN PRN Reason: MILD PAIN Last Admin: 06/28/21 19:29 Dose: 650 mg Documented by: Amlodipine Besylate (Amlodipine 10 Mg Tablet) 10 mg PO DAILY REPLACED BY [facility] Last Admin: 07/05/21 09:20 Dose: 10 mg Documented by: Amoxicillin/Clavulanate Potassium (Amoxicillin-Clav 875-125 Mg Tablet) 1 tab PO BID REPLACED BY [facility]; Protocol Last Admin: 07/05/21 17:47 Dose: 1 tab Documented by: Apixaban (Apixaban 5 Mg Tablet) 5 mg PO BID@0900,2100 REPLACED BY [facility] Last Admin: 07/05/21 20:10 Dose: 5 mg Documented by: Aspirin (Aspirin 81 Mg Ec Tablet) 81 mg PO DAILY REPLACED BY [facility] Last Admin: 07/05/21 09:19 Dose: 81 mg Documented by: Atorvastatin Calcium (Atorvastatin 40 Mg Tablet) 40 mg PO QPM REPLACED BY [facility] Last Admin: 07/05/21 17:53 Dose: 40 mg Documented by: Chlorhexidine Gluconate (Chlorhexidine Gluconate 4% Btl 118 Ml) 1 applic TOPICAL BID REPLACED BY [facility] Last Admin: 07/05/21 17:48 Dose: Not Given Documented by: Clonidine HCl (Clonidine 0.3 Mg/24 Hr Patch) 1 patch TRANSDERMA Q7D REPLACED BY [facility] Last Admin: 06/30/21 08:31 Dose: 1 patch Documented by: Dextrose (Dextrose 50% Syringe 50 Ml) 25 ml IVP ONCE PRN; Protocol PRN Reason: hypoglycemia protocol Dextrose (Dextrose 50% Syringe 50 Ml) 50 ml IVP PRN PRN; Protocol PRN Reason: hypoglycemia protocol Docusate Sodium (Docusate Sodium 10 Mg/Ml (5ml) Liq) 100 mg PO BID REPLACED BY [facility] Last Admin: 07/05/21 17:48 Dose: Not Given Documented by: Folic Acid (Folic Acid 1 Mg Tablet) 1 mg PO DAILY REPLACED BY [facility] Last Admin: 07/05/21 09:20 Dose: 1 mg Documented by: Furosemide (Furosemide 40 Mg Tablet) 40 mg PO DAILY@0800 REPLACED BY [facility] Glucagon (Glucagon 1 Mg/Ml Inj 1 Ml) 1 mg IM ONCE PRN; Protocol PRN Reason: Adult Acute Hypoglycemia Prot. Hydralazine HCl (Hydralazine 20 Mg/Ml Inj 1 Ml) 10 mg IVP Q4H PRN PRN Reason: Nausea and Vomiting, Severe Last Admin: 07/01/21 16:49 Dose: 10 mg Documented by: Hydralazine HCl (Hydralazine 25 Mg Tablet) 50 mg PO TID REPLACED BY [facility] Last Admin: 07/05/21 20:07 Dose: 50 mg Documented by: Hydrochlorothiazide (Hydrochlorothiazide 25 Mg Tablet) 25 mg PO DAILY REPLACED BY [facility] Last Admin: 07/05/21 09:20 Dose: 25 mg Documented by: Dextrose (D5w) 500 mls @ 100 mls/hr IV ONCE PRN; Protocol PRN Reason: Adult Acute Hypoglycemia Prot Insulin Glargine (Insulin Glargine 100 Units/1 Ml) 5 unit SUBCUT Q12H REPLACED BY [facility] Last Admin: 07/05/21 20:10 Dose: 5 unit Documented by: Insulin Human Lispro (Insulin Lispro 100 Unit/1 Ml) 0 unit SUBCUT BEDTIME REPLACED BY [facility]; Protocol Last Admin: 07/05/21 20:10 Dose: 4 unit Documented by: Insulin Human Lispro (Insulin Lispro 100 Unit/1 Ml) 0 unit SUBCUT TIDWM REPLACED BY [facility]; Protocol Last Admin: 07/05/21 18:16 Dose: 10 unit Documented by: Isosorbide Mononitrate (Isosorbide Mononitrate Er 60 Mg Tablet) 120 mg PO DAILY REPLACED BY [facility] Last Admin: 07/05/21 09:20 Dose: 120 mg Documented by: Labetalol HCl (Labetalol 5 Mg/Ml Sdv 20ml) 10 mg IVP Q4H PRN PRN Reason: SBP>180 or DBP>90 hold if HR<60 Last Admin: 07/02/21 11:42 Dose: 10 mg Documented by: Metoprolol Tartrate (Metoprolol Tartrate 50 Mg Tablet) 50 mg PO Q12H REPLACED BY [facility] Last Admin: 07/06/21 06:05 Dose: 50 mg Documented by: Minoxidil (Minoxidil 10 Mg Tablet) 5 mg PO DAILY REPLACED BY [facility] Last Admin: 07/05/21 12:58 Dose: Not Given Documented by: Multivitamins Therapeutic (Multivitamin Therapeutic Tablet) 1 tab PO DAILY REPLACED BY [facility] Last Admin: 07/05/21 09:20 Dose: 1 tab Documented by: Nicotine (Nicotine 21 Mg Patch) 1 patch TRANSDERMA DAILY REPLACED BY [facility] Last Admin: 07/05/21 09:21 Dose: 1 patch Documented by: Ondansetron HCl (Ondansetron 2 Mg/Ml Sdv 2 Ml) 4 mg IVP Q8H PRN PRN Reason: NAUSEA AND VOMITING Pantoprazole Sodium (Pantoprazole Dr 40 Mg Tablet) 40 mg PO DAILY REPLACED BY [facility] Last Admin: 07/05/21 09:20 Dose: 40 mg Documented by: Potassium Chloride (Potassium Chloride Er 20 Meq Tablet) 20 meq PO Q12H REPLACED BY [facility] Last Admin: 07/05/21 21:30 Dose: 20 meq Documented by: Spironolactone (Spironolactone 25 Mg Tablet) 50 mg PO BID REPLACED BY [facility] Last Admin: 07/05/21 17:48 Dose: 50 mg Documented by: Thiamine Mononitrate (Thiamine 100 Mg Tablet) 100 mg PO DAILY REPLACED BY [facility] Last Admin: 07/05/21 09:19 Dose: 100 mg Documented by: Vitals/I&O/Wt Last Vital Signs Temp 98 F 07/06/21 07:18 Pulse 61 07/06/21 07:18 Resp 16 07/06/21 07:18 BP 158/78 07/06/21 07:18 Pulse Ox 97 07/06/21 07:18 07/05/21 07/06/21 07/06/21 22:59 06:59 14:59 Intake Total 100 / 300 240 / 540 Output Total 1350 / 1570 1200 / 2770 Balance -1250 / -1270 -960 / -2230 Weight last 48 hrs Weight 326 lb Weight 326 lb 9.6 oz Physical Exam Narrative: GENERAL: The patient is alert and oriented times three. Not in any acute distress. HEENT: No significant pallor, icterus or lymphadenopathy.Oral cavity: There are no mucous membrane lesions. NECK: Trachea appears to be central. No masses noted. No JVD or thyromegaly appreciated. RESPIRATORY: Chest is symmetrical. No intercostals muscle retraction or any accessory muscle activation. There is no chest wall tenderness. Breath sounds are heard bilaterally. No rales or rhonchi heard. No evidence of any consolidation. BREASTS: Deferred. HEART: The heart sounds are normal. No S3 or S4. Systolic murmur in the left sternal border. No pericardial rub ABDOMEN: No vessel pulsations or distention. No tenderness. No organomegaly ap preciated. Bowel sounds are normally heard. : Deferred. RECTAL: Deferred. LYMPHATIC: No lymphadenopathy noted in the neck. EXTREMITIES: 1-2+ edema both lower extremities. MUSCULOSKELETAL: No acute joint deformities or swelling SKIN: There are no significant rashes or ecchymosis NEUROPSYCHIATRIC: The patient is alert and oriented x3. Appears to be in a good mood. No tremors or rigidity noted. Urinary Catheter Management: Santo: Cath Placed During This Visit: yes, but has since been removed by the nurse Reason for Continuing Indwelling Catheter: Decision to DC Catheter Urinary Catheter Date of Insertion: 06/25/21 Urinary Catheter Time of Insertion: 17:28 Date Urinary Catheter Removed: 07/02/21 Time Urinary Catheter Discontinued: 07:45 Data : 07/06/21 04:03 07/06/21 04:03 Other Labs: Laboratory Last Values WBC 16.8 10^3/uL (4.0-10.0) H 07/06/21 04:03 RBC 3.77 10^6/uL (4.1-5.3) L 07/06/21 04:03 Hgb 11.1 g/dL (11.7-16.6) L 07/06/21 04:03 Hct 34.7 % (42.0-52.0) L 07/06/21 04:03 MCV 92.0 fl (80-94) D 07/06/21 04:03 MCH 29.4 pg (28.0-34.0) 07/06/21 04:03 MCHC 32.0 g/dL (30.0-36.0) 07/06/21 04:03 RDW 12.5 % (12.1-15.1) 07/06/21 04:03 Plt Count 353 10^3/cmm (130-400) 07/06/21 04:03 MPV 10.3 fL (7.4-10.4) 07/06/21 04:03 Neut % (Auto) 74.5 % 07/06/21 04:03 Lymph % (Auto) 13.2 % 07/06/21 04:03 [place] % (Auto) 8.2 % 07/06/21 04:03 Eos % (Auto) 1.3 % 07/06/21 04:03 Baso % (Auto) 0.5 % 07/06/21 04:03 Neut # (Auto) 12.55 10^3/uL (1.8-7.7) H 07/06/21 04:03 Lymph # (Auto) 2.2 10^3/uL (0.8-4.8) 07/06/21 04:03 [place] # (Auto) 1.4 10^3/uL (0.2-0.9) H 07/06/21 04:03 Eos # (Auto) 0.2 10^3/uL (0.0-0.8) 07/06/21 04:03 Baso # (Auto) 0.1 10^3/uL (0.0-0.1) 07/06/21 04:03 Nucleated RBC % (auto) 0 % 07/06/21 04:03 Nucleated RBCs # 0.0 /100WBC 07/06/21 04:03 ESR 7 mm/hr (0-10) 06/26/21 03:35 PT 17.40 SECONDS (12.1-14.9) H 06/29/21 04:26 INR 1.38 (0.8-1.2) H 06/29/21 04:26 APTT 39.4 SECONDS (23.9-36.7) H 06/27/21 22:03 Specimen Type Arterial 06/29/21 11:09 Sample Site Radial, right 06/29/21 11:09 ABG pH 7.52 (7.35-7.45) H 06/29/21 11:09 ABG pCO2 31.5 mmHg (35-45) L 06/29/21 11:09 ABG pO2 79.4 mmHg (80.0-100.0) L 06/29/21 11:09 ABG HCO3 25.6 mmol/L (22-26) 06/29/21 11:09 ABG O2 Saturation 98.7 06/26/21 13:12 ABG Base Excess 3.2 mmol/L (-2.0-2.0) H 06/29/21 11:09 Judd Test Pos 06/29/21 11:09 A-a O2 Gradient 51.5 mmHg (5-10) H 06/26/21 13:12 Hematocrit 38.3 % (42-52) L 06/29/21 11:09 Hgb O2 Saturation 96.5 % (95-100) 06/26/21 13:12 Carboxyhemoglobin 1.2 %THgb (0.4-20.1) 06/26/21 13:12 Methemoglobin 1.0 % (0.4-1.5) 06/26/21 13:12 Total Hemoglobin 11.9 g/dL (14-18) L 06/26/21 13:12 Sodium 147.0 mmol/L (131-143) H 06/26/21 13:12 Potassium 4.2 mmol/L (3.5-5.0) 06/26/21 13:12 Glucose 165.0 mg/dL (70-115) H 06/26/21 13:12 Ionized Calcium 1.1 mmol/L (1.1-1.4) 06/26/21 13:12 O2 Delivery Device Bipap 06/29/21 11:09 FiO2 30.0 % 06/29/21 11:09 Tidal Volume 0.50 06/28/21 04:36 PEEP 6.0 cmH20 06/29/21 11:09 Robotic Maintenance Technician ID [email or web address] 06/29/21 11:09 Sodium 133 mmol/L (136-145) L 07/06/21 04:03 Potassium 3.7 mmol/L (3.5-5.1) 07/06/21 04:03 Chloride 99 mmol/L (98-107) 07/06/21 04:03 Carbon Dioxide 18 mmol/L (22-29) L 07/06/21 04:03 Anion Gap 19.7 (5-19) H 07/06/21 04:03 BUN 66 mg/dL (8-23) H 07/06/21 04:03 Creatinine 2.0 mg/dL (0.7-1.2) H 07/06/21 04:03 GFR Calculation Not Reportable 07/06/21 04:03 Glucose 208 mg/dL (65-115) H 07/06/21 04:03 POC Glucose 198 mg/dL (70-110) H 07/06/21 06:30 Calculated Osmolality 301 mOsm/kg (285-295) H 07/06/21 04:03 Uric Acid 13.0 mg/dL (3.4-7.0) H 06/27/21 10:00 Calcium 9.3 mg/dL (8.5-10.5) 07/06/21 04:03 Phosphorus 4.6 mg/dL (2.5-4.5) H 07/06/21 04:03 Magnesium 2.8 mg/dL (1.7-2.3) H 07/06/21 04:03 Total Bilirubin 0.5 mg/dL (0.15-1.2) 07/06/21 04:03 AST 22 U/L (0-40) 07/06/21 04:03 ALT 25 U/L (0-41) 07/06/21 04:03 Alkaline Phosphatase 72 IU/L (40-130) 07/06/21 04:03 Ammonia 20 umol/L (16-60) 06/29/21 17:43 Creatine Kinase 260 U/L (39-308) 07/04/21 08:00 Troponin T Baseline 66 ng/L (0-15) H 06/25/21 13:20 Troponin T 120 Minute 71.09 ng/L (0-15) H 06/25/21 14:20 Delta Troponin T 5.09 ABS# (0-10) 06/25/21 14:20 Troponin T Hi Sens 6Hr 70.78 ng/L (0-15) H 06/25/21 20:37 Troponin T Hi Sens 6Hr Delta 4.78 ng/L (0-12) 06/25/21 20:37 C-Reactive Protein 141.2 mg/L (0.0-4.9) H 07/06/21 04:03 NT-Pro-B Natriuret Pep 4693 pg/mL (0-125) H 07/06/21 04:03 Total Protein 6.6 g/dL (6.6-8.7) 07/06/21 04:03 Albumin 3.3 g/dL (3.5-5.2) L 07/06/21 04:03 Globulin 3.3 g/dL (1.3-4.6) 07/06/21 04:03 Renin Activity 2.80 ng/mL/h (0.25-5.82) 07/01/21 10:00 Aldosterone 5 ng/dL 07/01/21 10:00 25-OH Vitamin D Total 31 ng/mL (30-100) 06/28/21 04:35 Procalcitonin 0.32 ng/mL (0-0.5) 07/06/21 04:03 TSH 2.20 uIU/mL (0.27-4.20) 06/25/21 13:20 Urine Color Yellow (Yellow) 06/25/21 14:36 Urine Appearance Clear (CLEAR) 06/25/21 14:36 Urine pH 5 (5-7) 06/25/21 14:36 Ur Specific [place] 1.015 (1.005-1.030) 06/25/21 14:36 Urine Protein Neg (Negative) 06/25/21 14:36 Urine Glucose (UA) Norm (Normal) 06/25/21 14:36 Urine Ketones Negative (Negative) 06/25/21 14:36 Urine Blood Neg (Negative) 06/25/21 14:36 Urine Nitrate Negative (Negative) 06/25/21 14:36 Urine Bilirubin Neg (Negative) 06/25/21 14:36 Urine Urobilinogen Neg mg/dL (Negative) 06/25/21 14:36 Ur Leukocyte Esterase Negative (Negative) 06/25/21 14:36 Ur Random Sodium 60 mmol/L 06/27/21 09:30 Ur Random Potassium 41 mmol/L 06/27/21 09:30 Ur Random Chloride 53 mmol/L 06/27/21 09:30 Complement C3 125 mg/dL (90-180) 06/27/21 10:00 Complement C4 23 mg/dL (10-40) 06/27/21 10:00 Hepatitis C Antibody Non-reactive (Nonreactive) 06/27/21 10:00 Echo: My impression: ?Mild left ventricular hypertrophy.? Possibly normal LV size and ?ejection fraction. ?? Since there was only parasternal and few subcostal views, ?segmental wall motion analysis and ejection fraction estimation ?are difficult. ?Mildly increased left atrial size. ?Thickened aortic and mitral valves. ?No pericardial effusion. ?Technically very limited study EKG 1: EKG computer-generated impression: Renal Ultrasound 06/25/21 17:57 IMPRESSION: 1. Negative for hydronephrosis or renal calculus. 2. Two left kidney cysts measuring up to 19 mm. C-Arm Fluoroscopy 06/27/21 18:02 IMPRESSION: Intraoperative imaging during cardiac pacer placement. Head CT 06/29/21 07:52 IMPRESSION: 1. No evidence of acute intracranial abnormality. No evidence of acute infarction, hemorrhage, or mass. 2. Atrophy and microvascular disease. 3. Enlarging nonspecific right parietal skull lesion compared to 2017 examination. ADDENDUM: 06/29/21 1036 Skull: There is increased size of the lucent lesion in the right parietal skull currently measuring 11 mm on axial images and previously measuring 6 mm. This is nonspecific. No erosion of inner or outer table of skull. Chest X-Ray 06/29/21 12:21 IMPRESSION: 1. No acute findings. 2. Cardiac device left anterior chest good position. KUB X-Ray 06/29/21 12:21 IMPRESSION: No acute findings. A&P Assessment and plan (1) Status post cardiac pacemaker procedure: Patient has history of chronic atrial fibrillation. Currently he seems to be pacemaker dependent. Pacemaker function seems to be appropriate. Status: Acute (2) Congestive heart failure: Clinically the heart failure seems to be compensated. May continue on the current measures. Status: Chronic Qualifiers: Heart failure chronicity: acute on chronic Heart failure type: diastolic Qualified Code(s): I50.33 - Acute on chronic diastolic (congestive) heart failure (3) Acute kidney injury: The BUN and creatinine still remains high Status: Acute (4) Aspiration pneumonia: Oxygenation status has improved. Status post ventilatory support. Continues to be on antibiotics. Remains afebrile. Continue treatment as per the primary. Status: Acute (5) Obstructive sleep apnea: May continue the CPAP Status: Chronic (6) Hyperlipidemia: May continue on the atorvastatin. Seems to be tolerating the medication well Status: Chronic Qualifiers: Hyperlipidemia type: unspecified Qualified Code(s): E78.5 - Hyperlipidemia, unspecified (7) Chronic anticoagulation: On Eliquis. Seems to be tolerating medication well. Status: Chronic (8) Altered mental status: Status: Acute (9) Atrial fibrillation: Patient is diagnosed with a chronic atrial fibrillation. Currently seems to be pacemaker dependent Status: Chronic Qualifiers: Atrial fibrillation type: longstanding persistent Qualified Code(s): I48.11 - Longstanding persistent atrial fibrillation (10) Coronary artery disease: Clinically seems to be stable. Her myocardial perfusion imaging last year. Was found to have areas of fixed defects there is very small areas of reversible defect. It was decided to continue medical treatment. Status: Chronic (11) PAD (peripheral artery disease): ABIs are 0.9 bilaterally. Currently the patient has no symptoms of peripheral insufficiency. We will continue on the current treatment measures. Status: Chronic (12) Nicotine dependence, chewing tobacco, with other nicotine-induced disorders: Status: Chronic Plan Reviewed the patient's medical records. He is slowly improving. Patient's overall physical condition is very poor. He has difficulty in ambulation. May continue on the physical therapy Attestations Medical Necessity Statement*: Disposition as per the primary Coding Level of Care Code Acute Donor Relations Officer for Yris Tee History Detailed Exam Detailed Medical Decision Making Moderate Complexity Diagnoses Status post cardiac pacemaker procedure Z95.0 Altered mental status R41.82 Acute kidney injury N17.9 Aspiration pneumonia J69.0 Congestive heart failure I50.33 Heart failure chronicity: acute on chronic Heart failure type: diastolic Obstructive sleep apnea G47.33 Hyperlipidemia E78.5 Hyperlipidemia type: unspecified Chronic anticoagulation Z79.01 Atrial fibrillation I48.11 Atrial fibrillation type: longstanding persistent Coronary artery disease I25.10 PAD (peripheral artery disease) I73.9 Nicotine dependence, chewing tobacco, with other nicotine-induced disorders F17.228 Time Spent (min) 45
[2021-07-06] MEDS: aspirin 81 mg EC Tablet PO (09:08)
[2021-07-06] MEDS: hydroCHLOROthiazide 25 mg Tablet PO (09:08)
[2021-07-06] MEDS: spironolactone 25 mg Tablet 50 MG PO ×2 (09:08→18:05)
[2021-07-06] MEDS: pantoprazole DR 40 mg Tablet PO (09:08)
[2021-07-06] MEDS: hyDRALAzine 25 mg Tablet 50 MG PO ×3 (09:08→20:54)
[2021-07-06] MEDS: amlodipine 10 mg Tablet PO (09:09)
[2021-07-06] MEDS: amoxicillin-clav 875-125 mg Tablet 1 TAB PO (09:09)
[2021-07-06] MEDS: isosorbide mononitrate ER 60 mg Tablet 120 MG PO (09:09)
[2021-07-06] MEDS: folic acid 1 mg Tablet PO (09:09)
[2021-07-06] MEDS: multivitamin therapeutic Tablet 1 TAB PO (09:09)
[2021-07-06] MEDS: potassium chloride ER 20 mEq Tablet PO ×2 (09:09→21:00)
[2021-07-06] MEDS: apixaban 5 mg Tablet PO ×2 (09:09→20:55)
[2021-07-06] MEDS: thiamine 100 mg Tablet PO (09:10)
[2021-07-06] MEDS: insulin glargine 100 units/1 mL 5 UNIT SUBCUT ×2 (09:18→20:56)
[2021-07-06] MEDS: insulin lispro 100 unit/1 mL SUBCUT ×4 (09:19→20:59)
--- NOTE | 2021-07-06 09:46 | PM.PN ---
Subjective Subjective: Patient was seen this morning, he complains of bilateral currently edema, red, hot, swelling of lower extremities bilaterally, no fevers overnight, Vitals/I&O/Wt Last Vital Signs Temp 98 F 07/06/21 07:18 Pulse 61 07/06/21 07:18 Resp 16 07/06/21 07:18 BP 158/78 07/06/21 07:18 Pulse Ox 97 07/06/21 07:18 07/05/21 07/06/21 07/06/21 22:59 06:59 14:59 Intake Total 100 / 300 240 / 540 Output Total 1350 / 1570 1200 / 2770 Balance -1250 / -1270 -960 / -2230 Weight last 48 hrs Weight 147.871 kg Weight 148.143 kg Physical Exam Const: COMMON NORMALS: no acute distress and patient oriented x3 Resp: COMMON NORMALS: normal respiratory effort, No retractions, No use of accessory muscles and clear to auscultation bilaterally AUSCULTATION: clear to auscultation bilaterally Cardio: COMMON NORMALS: regular rate, regular rhythm, S1 normal heart sound present and S2 normal heart sound present RATE: regular rate RHYTHM: regular rhythm HEART SOUNDS: S1 normal heart sound present and S2 normal heart sound present GI: COMMON NORMALS: Normal to inspection, nondistended, normoactive bowel sounds present, Soft to palpation, non-tender and No hepatosplenomegaly present PALPATION: Yes Soft to palpation and Yes No hepatosplenomegaly present Extremity: NARRATIVE EXTREMITY EXAM: 3+ pitting edema bilateral extremities -Has erythema, swelling, warmth, extending up bilateral ankles to mid shins Neuro: COMMON NORMALS: patient oriented x3 Psych: COMMON NORMALS: mental status grossly normal Urinary Catheter Management: Santo: Cath Placed During This Visit: yes, but has since been removed by the nurse Reason for Continuing Indwelling Catheter: Decision to DC Catheter Urinary Catheter Date of Insertion: 06/25/21 Urinary Catheter Time of Insertion: 17:28 Date Urinary Catheter Removed: 07/02/21 Time Urinary Catheter Discontinued: 07:45 Data : 07/06/21 04:03 07/06/21 04:03 A&P Assessment and plan (1) Aspiration pneumonia: Status: Acute (2) Acute kidney injury: Status: Acute (3) Bradycardia: Symptomatic with heart rate generally staying 20s to 40s. Not on beta-blockade due to known history of bradycardia associated with this. Only other notable medications are isosorbide and amlodipine. In talking with him he does have untreated sleep apnea, prostatic hypertrophy and increasing urinary symptoms. Presently however has significant hyperkalemia with initial level at 7.2. TSH was checked and was normal. Status: Acute (4) Hyperkalemia: Has been on potassium supplementation, also on spironolactone, losartan and has acute kidney injury compared to baseline labs, EKG with peaked T waves initially. Labs from the MI on June 17 showed potassium of 5.0. Status: Acute (5) Acute kidney injury: On chronic kidney disease stage 2-3, BUN and creatinine at MI on 06/17/2021 was 23/1.79. In February 2021 BUN and creatinine were 12/1.1. He is chronically on ARB, Aldactone, Lasix. Also with history of prostatic hypertrophy with worsening lower urinary tract symptoms. Has history of ureteral stone in the past also. Reports noncompliance with his water pills, increasing overall girth. Status: Acute (6) Accelerated hypertension: Chronically on amlodipine, Lasix, isosorbide, losartan and Aldactone, has not had his medications today Status: Acute (7) Congestive heart failure: Acute on chronic preserved ejection fraction last echocardiogram Status: Chronic Qualifiers: Heart failure chronicity: acute on chronic Heart failure type: diastolic Qualified Code(s): I50.33 - Acute on chronic diastolic (congestive) heart failure (8) Abnormal nuclear stress test: Per Dr. Segura clinical notes although upon review it looks like abnormalities could also be consistent with attenuation defects. This is from stress testing done in September of last year. Status: Acute (9) Coronary artery disease: Has not required previous intervention. Records indicate last arteriogram showed 55% narrowing and unclear vessel. Describes anginal type symptoms lately although this could be related to demand ischemia from impact of bradycardia Status: Chronic (10) Atrial fibrillation: Presently with slow ventricular response, chronic Status: Chronic Qualifiers: Atrial fibrillation type: longstanding persistent Qualified Code(s): I48.11 - Longstanding persistent atrial fibrillation (11) Chronic anticoagulation: Chronically on Eliquis Status: Chronic (12) Diabetes mellitus, type II: Hemoglobin A1c at the MI June 17, 2021 was 8.0 Chronically on insulin and semaglutide Status: Chronic Qualifiers: Diabetes mellitus penitentiary insulin use: with penitentiary use Diabetes mellitus complication status: with neurologic complications Diabetes mellitus complication detail: with polyneuropathy Qualified Code(s): E11.42 - Type 2 diabetes mellitus with diabetic polyneuropathy; Z79.4 - longterm (current) use of insulin (13) BPH NOS w/o ur obs/LUTS: Chronically on finasteride and Flomax, describes progressive lower urinary symptoms suggestive of potential bladder outlet obstruction contributing to acute kidney injury Status: Chronic (14) Calculus of proximal ureter: Has been present for some time, nonobstructing or at least in the same location last time it was evaluated, patient does not describe classic symptoms of kidney stones but at risk of having an obstructive process Status: Acute (15) Hyperlipidemia: Lipid panel checked June 17, [address] [facility] showed total cholesterol of 206, triglycerides of 189, HDL of 43.9 and calculated LDL of 124.3 with an HDL to total cholesterol ratio of 21.3% Chronically on statin Status: Chronic Qualifiers: Hyperlipidemia type: unspecified Qualified Code(s): E78.5 - Hyperlipidemia, unspecified (16) Obstructive sleep apnea: Does not wear CPAP by choice Status: Chronic (17) BMI 40.0-44.9, adult: Status: Acute (18) Nicotine dependence, chewing tobacco, with other nicotine-induced disorders: Status: Chronic (19) Altered mental status: Status: Acute (20) Bilateral lower leg cellulitis: Status: Acute Plan Bilateral lower extremity 3+ pitting edema, with bilateral extremity cellulitis -Start vancomycin, Rocephin -Encouraged up out of bed, ambulate with physical therapy -We will give 2 doses of Bumex with metolazone today, monitor creatinine, monitor potassium Acute hypertensive urgency -Losartan 50 twice daily -Metoprolol 50 twice daily -Minoxidil 5 every 12 hours -Clonidine patch 0.3 q7 days -Hydralazine 75 3 times daily -No pitting edema today, creatinine 1.7, hold diuretics Acute hyponatremia, resolved Acute symptomatic bradycardia -Status post pacemaker placement -Dr. Fernandez on consult Full code Protonix for GI prophylaxis On Eliquis for DVT prophylaxis Altered mental status, likely secondary to aspiration pneumonia, hypoxia, hypertensive encephalopathy -Alert oriented x3, answers questions, follows commands -Hypertensive emergency resolved -On Augmentin -CT of the head within normal limits -Blood cultures, urine cultures -Advance diet as tolerated -Zyprexa, Ativan agitation Acute respiratory failure, hypoxia,, fluid overload, bilateral extremity edema -Has a history of severe diastolic CHF, requiring multiple hospitalizations -Status post extubation 06/28/2021, requiring BiPAP therapy DANITZA, 2.0, elevated CPK, has a history of rhabdomyolysis Hyperkalemia, resolved, continue to monitor History of atrial fibrillation, on Eliquis, resume Eliquis Type II diabetes mellitus, low-dose sliding scale, add Lantus History of CVA, monitor History of CAD Peripheral arterial disease, bilateral extremities are much more pink, flushed, DP PT pulses palpable, bilateral extremities improving coloration, needs to follow-up with cardiothoracic surgery as outpatient PT OT Attestations Medical Necessity Statement*: Patient requires hospitalization for fluid overload, bilateral extremity edema, cellulitis Coding Level of Care Code Acute Hide Tanner for Chg Fwd Diagnoses Aspiration pneumonia J69.0 Acute kidney injury N17.9 Bradycardia R00.1 Hyperkalemia E87.5 Acute kidney injury N17.9 Accelerated hypertension I10 Congestive heart failure I50.33 Heart failure chronicity: acute on chronic Heart failure type: diastolic Abnormal nuclear stress test R94.39 Coronary artery disease I25.10 Atrial fibrillation I48.11 Atrial fibrillation type: longstanding persistent Chronic anticoagulation Z79.01 Diabetes mellitus, type II E11.42; Z79.4 Diabetes mellitus penitentiary insulin use: with penitentiary use Diabetes mellitus complication status: with neurologic complications Diabetes mellitus complication detail: with polyneuropathy BPH NOS w/o ur obs/LUTS N40.0 Calculus of proximal ureter N20.1 Hyperlipidemia E78.5 Hyperlipidemia type: unspecified Obstructive sleep apnea G47.33 BMI 40.0-44.9, adult Z68.41 Nicotine dependence, chewing tobacco, with other nicotine-induced disorders F17.228 Altered mental status R41.82 Bilateral lower leg cellulitis L03.116; L03.115
[2021-07-06] MEDS: vancomycin 1,500 MG/300 ML PIGGYBACK 200 MG IV (10:41)
--- NOTE | 2021-07-06 10:50 | PC.SOCIAL ---
IMM Update pg 2 of IMM updated and reviewed w/ patient. Copy provided and Copy in chart updated.
[2021-07-06 11:52] LABS: Glucose Point of Care 292 mg/dL (70-110)
[2021-07-06] MEDS: cefTRIAXone 1,000 MG in sodium chloride 0.9% (plus) 50 ML 100 MG IV (12:29)
[2021-07-06] MEDS: bumetanide 0.25 mg/mL SDV 4 mL 1 MG IVP ×2 (12:41→20:11)
[2021-07-06] MEDS: metOLazone 5 MG Tablet 10 MG PO (12:41)
[2021-07-06 17:03] LABS: Glucose Point of Care 216 mg/dL (70-110)
[2021-07-06] MEDS: atorvastatin 40 mg Tablet PO (18:05)
--- NOTE | 2021-07-06 22:38 | PC.NURSE ---
BED Pt has been sitting up in chair all day and is now ready to lay down. Wanted us to let him try to move to bed but he is unable to move his legs to take steps to bed or to even pivot to the bed. Finally convinced him to use sit to stand and was easily assisted into bed. He has to be talked into using it for transfers. Foot of bed elevated
--- NOTE | 2021-07-07 03:04 | PC.NURSE ---
SNEHAERIK Pt had been up to BSC earlier thinking he was going to have a BM. Did not at that time and returned to bed. Up now to BSC with aid of sit to stand device and had a very large soft BM. Decided to get back into recliner. Feet elevated. Continues to have edema to Bilat legs & feet maranda but he says can tell they have gone down some. Feet and lower legs are reddened and warm. Has some blood blisters intact to couple of his toes. Has some generalized edema to back and abdomen. Arms look good. Several small bruises to arms. Is very talkative and says he wants to go home. Does say he has noone to help him at home. Dressing to pacemaker site Left upper chest is D&I. Telemetry showing A-fib with interm pacing noted. Voiding per urinal
[2021-07-07] MEDS: vancomycin 1,500 MG/300 ML PIGGYBACK 200 MG IV ×2 (03:37→21:33)
[2021-07-07 03:52] LABS: Basophils # 0.1 10^3/uL (0.0-0.1); Basophils % 0.4 %; Eosinophils # 0.2 10^3/uL (0.0-0.8); Eosinophils % 0.9 %; Hematocrit 35.5 % (42.0-52.0); Hemoglobin 11.8 g/dL (11.7-16.6); Lymphocytes # 2.9 10^3/uL (0.8-4.8); Lymphocytes % 12.3 %; Mean Corpuscular HGB Conc 33.2 g/dL (30.0-36.0); Mean Corpuscular Hemoglobin 29.1 pg (28.0-34.0); Mean Corpuscular Volume 87.4 fl (80-94); Mean Platelet Volume 10.5 fL (7.4-10.4); Monocytes # 1.6 10^3/uL (0.2-0.9); Neutrophils # 18.03 10^3/uL (1.8-7.7); Neutrophils % 77.4 %; Nucleated Red Blood Cells % 0 %; Platelet Count 410 10^3/cmm (130-400); Red Blood Count 4.06 10^6/uL (4.1-5.3); Red Cell Distribution Width 12.6 % (12.1-15.1); White Blood Count 23.3 10^3/uL (4.0-10.0)
[2021-07-07 04:00] VITALS: BP 165/79; PULSE 85; RESP 18; TEMP 36.5; O2SAT 95
[2021-07-07 04:19] LABS: Alanine Aminotransferase 28 U/L (0-41); Albumin Level 3.3 g/dL (3.5-5.2); Alkaline Phosphatase 87 IU/L (40-130); Aspartate Amino Transferase 22 U/L (0-40); Blood Urea Nitrogen 64 mg/dL (8-23); C Reactive Protein 90.5 mg/L (0.0-4.9); Calcium 9.5 mg/dL (8.5-10.5); Carbon Dioxide 19 mmol/L (22-29); Chloride 101 mmol/L (98-107); Globulin 3.4 g/dL (1.3-4.6); Glucose 193 mg/dL (65-115); Magnesium 2.6 mg/dL (1.7-2.3); NT Pro B Type Natriuretic Pept 3852 pg/mL (0-125); Osmolality Calculated 306 mOsm/kg (285-295); Phosphorus 4.3 mg/dL (2.5-4.5); Sodium 136 mmol/L (136-145); Total Bilirubin 0.4 mg/dL (0.15-1.2); Total Protein 6.7 g/dL (6.6-8.7)
[2021-07-07 04:28] LABS: Anion Gap 20.2 (5-19); Potassium 4.2 mmol/L (3.5-5.1)
[2021-07-07 06:00] VITALS: PULSE 62
[2021-07-07] MEDS: metoprolol tartrate 50 mg Tablet PO ×2 (06:06→18:32)
[2021-07-07 06:45] LABS: Glucose Point of Care 208 mg/dL (70-110)
[2021-07-07 07:17] VITALS: BP 142/66; PULSE 64; RESP 18; TEMP 36.8; O2SAT 96
--- NOTE | 2021-07-07 07:31 | PM.PN ---
Subjective Subjective: swollen, incontinence, diarrhea, weak, sob. more awake. good appetite. Medications: Reviewed: Yes Medication Review Details: Current Medications Acetaminophen (Acetaminophen 325 Mg Tablet) 650 mg PO Q6H PRN PRN Reason: MILD PAIN Last Admin: 06/28/21 19:29 Dose: 650 mg Documented by: Amlodipine Besylate (Amlodipine 10 Mg Tablet) 10 mg PO DAILY [facility] Last Admin: 07/06/21 09:09 Dose: 10 mg Documented by: Apixaban (Apixaban 5 Mg Tablet) 5 mg PO BID@0900,2100 [facility] Last Admin: 07/06/21 20:55 Dose: 5 mg Documented by: Aspirin (Aspirin 81 Mg Ec Tablet) 81 mg PO DAILY [facility] Last Admin: 07/06/21 09:08 Dose: 81 mg Documented by: Atorvastatin Calcium (Atorvastatin 40 Mg Tablet) 40 mg PO QPM [facility] Last Admin: 07/06/21 18:05 Dose: 40 mg Documented by: Chlorhexidine Gluconate (Chlorhexidine Gluconate 4% Btl 118 Ml) 1 applic TOPICAL BID [facility] Last Admin: 07/06/21 16:03 Dose: Not Given Documented by: Clonidine HCl (Clonidine 0.3 Mg/24 Hr Patch) 1 patch TRANSDERMA Q7D [facility] Last Admin: 06/30/21 08:31 Dose: 1 patch Documented by: Dextrose (Dextrose 50% Syringe 50 Ml) 25 ml IVP ONCE PRN; Protocol PRN Reason: hypoglycemia protocol Dextrose (Dextrose 50% Syringe 50 Ml) 50 ml IVP PRN PRN; Protocol PRN Reason: hypoglycemia protocol Docusate Sodium (Docusate Sodium 10 Mg/Ml (5ml) Liq) 100 mg PO BID [facility] Last Admin: 07/06/21 16:04 Dose: Not Given Documented by: Folic Acid (Folic Acid 1 Mg Tablet) 1 mg PO DAILY [facility] Last Admin: 07/06/21 09:09 Dose: 1 mg Documented by: Glucagon (Glucagon 1 Mg/Ml Inj 1 Ml) 1 mg IM ONCE PRN; Protocol PRN Reason: Adult Acute Hypoglycemia Prot. Hydralazine HCl (Hydralazine 20 Mg/Ml Inj 1 Ml) 10 mg IVP Q4H PRN PRN Reason: Nausea and Vomiting, Severe Last Admin: 07/01/21 16:49 Dose: 10 mg Documented by: Hydralazine HCl (Hydralazine 25 Mg Tablet) 50 mg PO TID [facility] Last Admin: 07/06/21 20:54 Dose: 50 mg Documented by: Hydrochlorothiazide (Hydrochlorothiazide 25 Mg Tablet) 25 mg PO DAILY [facility] Last Admin: 07/06/21 09:08 Dose: 25 mg Documented by: Dextrose (D5w) 500 mls @ 100 mls/hr IV ONCE PRN; Protocol PRN Reason: Adult Acute Hypoglycemia Prot Ceftriaxone Sodium 1,000 mg/ (Sodium Chloride) 50 mls @ 100 mls/hr IV Q24H [facility]; Protocol Last Admin: 07/06/21 12:29 Dose: 100 mls/hr Documented by: Vancomycin/PEG/NADA/Lysine/Water (Vancocin) 1,500 mg in 300 mls @ 200 mls/hr IV Q18H [facility] Last Infusion: 07/07/21 06:49 Dose: Infused Documented by: Insulin Glargine (Insulin Glargine 100 Units/1 Ml) 5 unit SUBCUT Q12H [facility] Last Admin: 07/06/21 20:56 Dose: 5 unit Documented by: Insulin Human Lispro (Insulin Lispro 100 Unit/1 Ml) 0 unit SUBCUT BEDTIME [facility]; Protocol Last Admin: 07/06/21 20:59 Dose: 5 unit Documented by: Insulin Human Lispro (Insulin Lispro 100 Unit/1 Ml) 0 unit SUBCUT TIDWM [facility]; Protocol Last Admin: 07/06/21 18:15 Dose: 6 unit Documented by: Isosorbide Mononitrate (Isosorbide Mononitrate Er 60 Mg Tablet) 120 mg PO DAILY [facility] Last Admin: 07/06/21 09:09 Dose: 120 mg Documented by: Labetalol HCl (Labetalol 5 Mg/Ml Sdv 20ml) 10 mg IVP Q4H PRN PRN Reason: SBP>180 or DBP>90 hold if HR<60 Last Admin: 07/02/21 11:42 Dose: 10 mg Documented by: Metoprolol Tartrate (Metoprolol Tartrate 50 Mg Tablet) 50 mg PO Q12H [facility] Last Admin: 07/07/21 06:06 Dose: 50 mg Documented by: Minoxidil (Minoxidil 10 Mg Tablet) 5 mg PO DAILY [facility] Last Admin: 07/06/21 16:14 Dose: Not Given Documented by: Multivitamins Therapeutic (Multivitamin Therapeutic Tablet) 1 tab PO DAILY [facility] Last Admin: 07/06/21 09:09 Dose: 1 tab Documented by: Nicotine (Nicotine 21 Mg Patch) 1 patch TRANSDERMA DAILY [facility] Last Admin: 07/06/21 10:40 Dose: Not Given Documented by: Ondansetron HCl (Ondansetron 2 Mg/Ml Sdv 2 Ml) 4 mg IVP Q8H PRN PRN Reason: NAUSEA AND VOMITING Pantoprazole Sodium (Pantoprazole Dr 40 Mg Tablet) 40 mg PO DAILY [facility] Last Admin: 07/06/21 09:08 Dose: 40 mg Documented by: Potassium Chloride (Potassium Chloride Er 20 Meq Tablet) 20 meq PO Q12H [facility] Last Admin: 07/06/21 21:00 Dose: 20 meq Documented by: Spironolactone (Spironolactone 25 Mg Tablet) 50 mg PO BID [facility] Last Admin: 07/06/21 18:05 Dose: 50 mg Documented by: Thiamine Mononitrate (Thiamine 100 Mg Tablet) 100 mg PO DAILY [facility] Last Admin: 07/06/21 09:10 Dose: 100 mg Documented by: Vitals/I&O/Wt Last Vital Signs Temp 98.2 F 07/07/21 07:17 Pulse 64 07/07/21 07:17 Resp 18 07/07/21 07:17 BP 142/66 07/07/21 07:17 Pulse Ox 96 07/07/21 07:17 07/06/21 07/07/21 07/07/21 22:59 06:59 14:59 Intake Total 780 / 1080 Output Total 2400 / 2400 600 / 3000 Balance -2400 / -2100 180 / -1920 Weight last 48 hrs Weight 143.607 kg Weight 147.871 kg Physical Exam Narrative: obese, sitting up in bed, NARD heent- nc/at, eomi neck supple lungs crackles b/l heart -paced rhythm + s1, s2 abd soft, nt, nd, + bs ext 2+ anasarca/ edema, poor pulses rt foot w/ an ischemic toe neuro- awake, alert oriented x 2+ no christine Urinary Catheter Management: Christine: Cath Placed During This Visit: yes, but has since been removed by the nurse Reason for Continuing Indwelling Catheter: Decision to DC Catheter Urinary Catheter Date of Insertion: 06/25/21 Urinary Catheter Time of Insertion: 17:28 Date Urinary Catheter Removed: 07/02/21 Time Urinary Catheter Discontinued: 07:45 Data : 07/07/21 03:05 07/07/21 03:05 A&P Assessment and plan (1) Acute kidney injury: 1. Acute kidney injury Likely bradycardic cardiorenal syndrome Renal function recovered to cr 1.8 -1.9 mg/dl. -cr now up to 2.1 - likely from drop in BP -montor cr if he allows Monitor strict I's and O's Avoid usual nephrotoxic agents Dose medication for CKD stage 3 b/4. -christine out 2. In May at [facility] his cr was 1.8 mg/dl and k 5- giving him stage 3b/4 CKD- age, htn, dm 3. HTN -improved -agree w/ diuresis and dec other meds -ua negative not c/w vasculitis -taper down meds if possible 4.bradycardia -paced. 5. hyperglycemia - gluc control 6. leukocytosis - slowly improving. wbc up to 23 7. ck 606 8 elevated bnp noted- on aldactone and hctz Thank you for consultation Patient seen and examined via telemedicine, with the assistance of the bedside RN 30 min spent in evaluation and mgmt of patient Status: Acute Plan see above Attestations Medical Necessity Statement*: per medicine Time Spent in Patient Care: 16 - 35 minutes (>than 50% of time spent in counselling and/or direct pt care on unit). Coding Level of Care Code Acute [employer] L[employer] for [employer]ris [employer] Diagnoses Acute kidney injury N17.9
[2021-07-07] MEDS: insulin lispro 100 unit/1 mL SUBCUT ×4 (08:17→21:33)
[2021-07-07] MEDS: insulin glargine 100 units/1 mL 5 UNIT SUBCUT ×2 (08:17→21:33)
[2021-07-07] MEDS: minoxidil 10 mg Tablet 2.5 MG PO (08:18)
[2021-07-07] MEDS: spironolactone 25 mg Tablet 50 MG PO ×2 (08:19→17:55)
[2021-07-07] MEDS: amlodipine 10 mg Tablet 5 MG PO (08:19)
[2021-07-07] MEDS: bumetanide 0.25 mg/mL SDV 4 mL 1 MG IVP ×2 (08:19→19:53)
[2021-07-07] MEDS: hyDRALAzine 25 mg Tablet 50 MG PO ×3 (08:20→21:32)
[2021-07-07] MEDS: isosorbide mononitrate ER 60 mg Tablet 120 MG PO (08:20)
[2021-07-07] MEDS: aspirin 81 mg EC Tablet PO (08:20)
[2021-07-07] MEDS: hydroCHLOROthiazide 25 mg Tablet PO (08:20)
[2021-07-07] MEDS: thiamine 100 mg Tablet PO (08:20)
[2021-07-07] MEDS: folic acid 1 mg Tablet PO (08:21)
[2021-07-07] MEDS: multivitamin therapeutic Tablet 1 TAB PO (08:21)
[2021-07-07] MEDS: pantoprazole DR 40 mg Tablet PO (08:21)
[2021-07-07] MEDS: apixaban 5 mg Tablet PO ×2 (08:21→21:34)
[2021-07-07] MEDS: chlorhexidine gluconate 4% Btl 118 mL 1 APPLIC TOPICAL (08:21)
[2021-07-07 08:44] LABS: Glucose Point of Care 274 mg/dL (70-110)
--- NOTE | 2021-07-07 09:30 | PM.PN ---
Subjective Subjective: Patient was seen this morning, he complains of bilateral extremity edema, he complains of a couple of bumps on his left big toe, left second digit, Vitals/I&O/Wt Last Vital Signs Temp 98.2 F 07/07/21 07:17 Pulse 64 07/07/21 07:17 Resp 18 07/07/21 07:17 BP 142/66 07/07/21 07:17 Pulse Ox 96 07/07/21 07:17 07/06/21 07/07/21 07/07/21 22:59 06:59 14:59 Intake Total 780 / 1080 Output Total 2400 / 2400 600 / 3000 Balance -2400 / -2100 180 / -1920 Weight last 48 hrs Weight 143.607 kg Weight 147.871 kg Physical Exam Const: COMMON NORMALS: no acute distress and patient oriented x3 Resp: COMMON NORMALS: normal respiratory effort, No retractions, No use of accessory muscles and clear to auscultation bilaterally AUSCULTATION: clear to auscultation bilaterally Cardio: COMMON NORMALS: regular rate, regular rhythm, S1 normal heart sound present and S2 normal heart sound present RATE: regular rate RHYTHM: regular rhythm HEART SOUNDS: S1 normal heart sound present and S2 normal heart sound present GI: COMMON NORMALS: Normal to inspection, nondistended, normoactive bowel sounds present, Soft to palpation and non-tender PALPATION: Yes Soft to palpation Extremity: NARRATIVE EXTREMITY EXAM: 2+ pitting edema bilateral extremity Neuro: COMMON NORMALS: patient oriented x3 Psych: COMMON NORMALS: mental status grossly normal Urinary Catheter Management: Santo: Cath Placed During This Visit: yes, but has since been removed by the nurse Reason for Continuing Indwelling Catheter: Decision to DC Catheter Urinary Catheter Date of Insertion: 06/25/21 Urinary Catheter Time of Insertion: 17:28 Date Urinary Catheter Removed: 07/02/21 Time Urinary Catheter Discontinued: 07:45 Data : 07/07/21 03:05 07/07/21 03:05 A&P Assessment and plan (1) Aspiration pneumonia: Status: Acute (2) Acute kidney injury: Status: Acute (3) Bradycardia: Symptomatic with heart rate generally staying 20s to 40s. Not on beta-blockade due to known history of bradycardia associated with this. Only other notable medications are isosorbide and amlodipine. In talking with him he does have untreated sleep apnea, prostatic hypertrophy and increasing urinary symptoms. Presently however has significant hyperkalemia with initial level at 7.2. TSH was checked and was normal. Status: Acute (4) Hyperkalemia: Has been on potassium supplementation, also on spironolactone, losartan and has acute kidney injury compared to baseline labs, EKG with peaked T waves initially. Labs from the [facility] on June 17 showed potassium of 5.0. Status: Acute (5) Acute kidney injury: On chronic kidney disease stage 2-3, BUN and creatinine at [facility] on 06/17/2021 was 23/1.79. In February 2021 BUN and creatinine were 12/1.1. He is chronically on ARB, Aldactone, Lasix. Also with history of prostatic hypertrophy with worsening lower urinary tract symptoms. Has history of ureteral stone in the past also. Reports noncompliance with his water pills, increasing overall girth. Status: Acute (6) Accelerated hypertension: Chronically on amlodipine, Lasix, isosorbide, losartan and Aldactone, has not had his medications today Status: Acute (7) Congestive heart failure: Acute on chronic preserved ejection fraction last echocardiogram Status: Chronic Qualifiers: Heart failure chronicity: acute on chronic Heart failure type: diastolic Qualified Code(s): I50.33 - Acute on chronic diastolic (congestive) heart failure (8) Abnormal nuclear stress test: Per Dr. Segura clinical notes although upon review it looks like abnormalities could also be consistent with attenuation defects. This is from stress testing done in September of last year. Status: Acute (9) Coronary artery disease: Has not required previous intervention. Records indicate last arteriogram showed 55% narrowing and unclear vessel. Describes anginal type symptoms lately although this could be related to demand ischemia from impact of bradycardia Status: Chronic (10) Atrial fibrillation: Presently with slow ventricular response, chronic Status: Chronic Qualifiers: Atrial fibrillation type: longstanding persistent Qualified Code(s): I48.11 - Longstanding persistent atrial fibrillation (11) Chronic anticoagulation: Chronically on Eliquis Status: Chronic (12) Diabetes mellitus, type II: Hemoglobin A1c at the [facility] June 17, 2021 was 8.0 Chronically on insulin and semaglutide Status: Chronic Qualifiers: Diabetes mellitus moth exterminator insulin use: with senior care use Diabetes mellitus complication status: with neurologic complications Diabetes mellitus complication detail: with polyneuropathy Qualified Code(s): E11.42 - Type 2 diabetes mellitus with diabetic polyneuropathy; Z79.4 - skilled nursing (current) use of insulin (13) BPH NOS w/o ur obs/LUTS: Chronically on finasteride and Flomax, describes progressive lower urinary symptoms suggestive of potential bladder outlet obstruction contributing to acute kidney injury Status: Chronic (14) Calculus of proximal ureter: Has been present for some time, nonobstructing or at least in the same location last time it was evaluated, patient does not describe classic symptoms of kidney stones but at risk of having an obstructive process Status: Acute (15) Hyperlipidemia: Lipid panel checked June 17, 2021 at the [facility] showed total cholesterol of 206, triglycerides of 189, HDL of 43.9 and calculated LDL of 124.3 with an HDL to total cholesterol ratio of 21.3% Chronically on statin Status: Chronic Qualifiers: Hyperlipidemia type: unspecified Qualified Code(s): E78.5 - Hyperlipidemia, unspecified (16) Obstructive sleep apnea: Does not wear CPAP by choice Status: Chronic (17) BMI 40.0-44.9, adult: Status: Acute (18) Nicotine dependence, chewing tobacco, with other nicotine-induced disorders: Status: Chronic (19) Altered mental status: Status: Acute (20) Bilateral lower leg cellulitis: Status: Acute Plan Bilateral lower extremity 2+ pitting edema, with bilateral extremity cellulitis -Start vancomycin, Rocephin -Encouraged up out of bed, ambulate with physical therapy -Continue Bumex 1 mg every 12 hours, 1 dose of metolazone, monitor creatinine, monitor potassium Acute hypertensive urgency -Losartan 50 twice daily -Metoprolol 50 twice daily -Minoxidil 5 every 12 hours -Clonidine patch 0.3 q7 days -Hydralazine 75 3 times daily -No pitting edema today, creatinine 1.7, hold diuretics Acute hyponatremia, resolved Acute symptomatic bradycardia -Status post pacemaker placement -Dr. Fernandez on consult Full code Protonix for GI prophylaxis On Eliquis for DVT prophylaxis Altered mental status, likely secondary to aspiration pneumonia, hypoxia, hypertensive encephalopathy -Alert oriented x3, answers questions, follows commands -Hypertensive emergency resolved -On Augmentin -CT of the head within normal limits -Blood cultures, urine cultures -Advance diet as tolerated -Zyprexa, Ativan agitation Acute respiratory failure, hypoxia,, fluid overload, bilateral extremity edema -Has a history of severe diastolic CHF, requiring multiple hospitalizations -Status post extubation 06/28/2021, requiring BiPAP therapy DANITZA, 2.0, elevated CPK, has a history of rhabdomyolysis Hyperkalemia, resolved, continue to monitor History of atrial fibrillation, on Eliquis, resume Eliquis Type II diabetes mellitus, low-dose sliding scale, add Lantus History of CVA, monitor History of CAD Peripheral arterial disease, bilateral extremities are much more pink, flushed, DP PT pulses palpable, bilateral extremities improving coloration, needs to follow-up with cardiothoracic surgery as outpatient PT OT Area of bruises, right great toe, left second and third digit, black discoloration, likely from minimal trauma Attestations Medical Necessity Statement*: Patient requires hospitalization for fluid overload, diastolic CHF exacerbation Coding Level of Care Code Acute Java Developer Architect for Chg Fwd Diagnoses Aspiration pneumonia J69.0 Acute kidney injury N17.9 Bradycardia R00.1 Hyperkalemia E87.5 Acute kidney injury N17.9 Accelerated hypertension I10 Congestive heart failure I50.33 Heart failure chronicity: acute on chronic Heart failure type: diastolic Abnormal nuclear stress test R94.39 Coronary artery disease I25.10 Atrial fibrillation I48.11 Atrial fibrillation type: longstanding persistent Chronic anticoagulation Z79.01 Diabetes mellitus, type II E11.42; Z79.4 Diabetes mellitus senior care insulin use: with moth exterminator use Diabetes mellitus complication status: with neurologic complications Diabetes mellitus complication detail: with polyneuropathy BPH NOS w/o ur obs/LUTS N40.0 Calculus of proximal ureter N20.1 Hyperlipidemia E78.5 Hyperlipidemia type: unspecified Obstructive sleep apnea G47.33 BMI 40.0-44.9, adult Z68.41 Nicotine dependence, chewing tobacco, with other nicotine-induced disorders F17.228 Altered mental status R41.82 Bilateral lower leg cellulitis L03.116; L03.115
[2021-07-07] MEDS: cloNIDine 0.3 mg/24 hr Patch 1 PATCH TRANSDERMA (09:49)
[2021-07-07] MEDS: cefTRIAXone 1,000 MG in sodium chloride 0.9% (plus) 50 ML 100 MG IV (09:49)
[2021-07-07] MEDS: potassium chloride ER 20 mEq Tablet PO ×2 (09:49→21:33)
[2021-07-07] MEDS: metOLazone 5 MG Tablet 10 MG PO (09:49)
[2021-07-07 12:00] VITALS: BP 131/77; PULSE 81; RESP 18; TEMP 36.4; O2SAT 97
[2021-07-07 12:05] LABS: Glucose Point of Care 253 mg/dL (70-110)
[2021-07-07 17:19] LABS: Glucose Point of Care 269 mg/dL (70-110)
[2021-07-07] MEDS: atorvastatin 40 mg Tablet PO (17:55)
--- NOTE | 2021-07-07 18:04 | PC.NURSE ---
Patient c/o frequent stools, they are soft but many. Wants this nurse to notify physician that he wants medications changed or discontinued if they are the cause. Physician notified.
[2021-07-07 20:00] VITALS: BP 132/76; PULSE 85; RESP 17; TEMP 36.6; O2SAT 96
[2021-07-07 20:25] LABS: Glucose Point of Care 231 mg/dL (70-110)
--- NOTE | 2021-07-07 20:56 | P.PN_ITS ---
Subjective Subjective: Patient denies any chest pain or unusual shortness of breath. Mainly complaining about generalized weakness and difficulty in ambulation. He also developed diarrhea. He has multiple loose bowels today. Ambulation seems to be slightly better today. Medications: Medication Review Details: Current Medications Acetaminophen (Acetaminophen 325 Mg Tablet) 650 mg PO Q6H PRN PRN Reason: MILD PAIN Last Admin: 06/28/21 19:29 Dose: 650 mg Documented by: Amlodipine Besylate (Amlodipine 10 Mg Tablet) 5 mg PO DAILY [facility] Last Admin: 07/07/21 08:19 Dose: 5 mg Documented by: Apixaban (Apixaban 5 Mg Tablet) 5 mg PO BID@0900,2100 [facility] Last Admin: 07/07/21 08:21 Dose: 5 mg Documented by: Aspirin (Aspirin 81 Mg Ec Tablet) 81 mg PO DAILY [facility] Last Admin: 07/07/21 08:20 Dose: 81 mg Documented by: Atorvastatin Calcium (Atorvastatin 40 Mg Tablet) 40 mg PO QPM [facility] Last Admin: 07/07/21 17:55 Dose: 40 mg Documented by: Bumetanide (Bumetanide 0.25 Mg/Ml Sdv 4 Ml) 1 mg IVP Q12H [facility] Last Admin: 07/07/21 19:53 Dose: 1 mg Documented by: Chlorhexidine Gluconate (Chlorhexidine Gluconate 4% Btl 118 Ml) 1 applic TOPICAL BID [facility] Last Admin: 07/07/21 17:55 Dose: Not Given Documented by: Clonidine HCl (Clonidine 0.3 Mg/24 Hr Patch) 1 patch TRANSDERMA Q7D [facility] Last Admin: 07/07/21 09:49 Dose: 1 patch Documented by: Dextrose (Dextrose 50% Syringe 50 Ml) 25 ml IVP ONCE PRN; Protocol PRN Reason: hypoglycemia protocol Dextrose (Dextrose 50% Syringe 50 Ml) 50 ml IVP PRN PRN; Protocol PRN Reason: hypoglycemia protocol Docusate Sodium (Docusate Sodium 10 Mg/Ml (5ml) Liq) 100 mg PO BID [facility] Last Admin: 07/07/21 18:08 Dose: Not Given Documented by: Folic Acid (Folic Acid 1 Mg Tablet) 1 mg PO DAILY [facility] Last Admin: 07/07/21 08:21 Dose: 1 mg Documented by: Glucagon (Glucagon 1 Mg/Ml Inj 1 Ml) 1 mg IM ONCE PRN; Protocol PRN Reason: Adult Acute Hypoglycemia Prot. Hydralazine HCl (Hydralazine 20 Mg/Ml Inj 1 Ml) 10 mg IVP Q4H PRN PRN Reason: Nausea and Vomiting, Severe Last Admin: 07/01/21 16:49 Dose: 10 mg Documented by: Hydralazine HCl (Hydralazine 25 Mg Tablet) 50 mg PO TID [facility] Last Admin: 07/07/21 14:39 Dose: 50 mg Documented by: Hydrochlorothiazide (Hydrochlorothiazide 25 Mg Tablet) 25 mg PO DAILY [facility] Last Admin: 07/07/21 08:20 Dose: 25 mg Documented by: Dextrose (D5w) 500 mls @ 100 mls/hr IV ONCE PRN; Protocol PRN Reason: Adult Acute Hypoglycemia Prot Ceftriaxone Sodium 1,000 mg/ (Sodium Chloride) 50 mls @ 100 mls/hr IV Q24H [facility]; Protocol Last Infusion: 07/07/21 10:28 Dose: Infused Documented by: Vancomycin/PEG/NADA/Lysine/Water (Vancocin) 1,500 mg in 300 mls @ 200 mls/hr IV Q18H [facility] Last Infusion: 07/07/21 06:49 Dose: Infused Documented by: Insulin Glargine (Insulin Glargine 100 Units/1 Ml) 5 unit SUBCUT Q12H [facility] Last Admin: 07/07/21 08:17 Dose: 5 unit Documented by: Insulin Human Lispro (Insulin Lispro 100 Unit/1 Ml) 0 unit SUBCUT BEDTIME [facility]; Protocol Last Admin: 07/06/21 20:59 Dose: 5 unit Documented by: Insulin Human Lispro (Insulin Lispro 100 Unit/1 Ml) 0 unit SUBCUT TIDWM [facility]; Protocol Last Admin: 07/07/21 17:55 Dose: 10 unit Documented by: Isosorbide Mononitrate (Isosorbide Mononitrate Er 60 Mg Tablet) 120 mg PO DAILY [facility] Last Admin: 07/07/21 08:20 Dose: 120 mg Documented by: Labetalol HCl (Labetalol 5 Mg/Ml Sdv 20ml) 10 mg IVP Q4H PRN PRN Reason: SBP>180 or DBP>90 hold if HR<60 Last Admin: 07/02/21 11:42 Dose: 10 mg Documented by: Metoprolol Tartrate (Metoprolol Tartrate 50 Mg Tablet) 50 mg PO Q12H [facility] Last Admin: 07/07/21 18:32 Dose: 50 mg Documented by: Minoxidil (Minoxidil 10 Mg Tablet) 2.5 mg PO DAILY [facility] Last Admin: 07/07/21 08:18 Dose: 2.5 mg Documented by: Multivitamins Therapeutic (Multivitamin Therapeutic Tablet) 1 tab PO DAILY [facility] Last Admin: 07/07/21 08:21 Dose: 1 tab Documented by: Nicotine (Nicotine 21 Mg Patch) 1 patch TRANSDERMA DAILY [facility] Last Admin: 07/07/21 08:22 Dose: Not Given Documented by: Ondansetron HCl (Ondansetron 2 Mg/Ml Sdv 2 Ml) 4 mg IVP Q8H PRN PRN Reason: NAUSEA AND VOMITING Pantoprazole Sodium (Pantoprazole Dr 40 Mg Tablet) 40 mg PO DAILY [facility] Last Admin: 07/07/21 08:21 Dose: 40 mg Documented by: Potassium Chloride (Potassium Chloride Er 20 Meq Tablet) 20 meq PO Q12H [facility] Last Admin: 07/07/21 09:49 Dose: 20 meq Documented by: Spironolactone (Spironolactone 25 Mg Tablet) 50 mg PO BID [facility] Last Admin: 07/07/21 17:55 Dose: 50 mg Documented by: Thiamine Mononitrate (Thiamine 100 Mg Tablet) 100 mg PO DAILY [facility] Last Admin: 07/07/21 08:20 Dose: 100 mg Documented by: Vitals/I&O/Wt Last Vital Signs Temp 97.6 F 07/07/21 12:00 Pulse 81 07/07/21 12:00 Resp 18 07/07/21 12:00 BP 131/77 07/07/21 12:00 Pulse Ox 97 07/07/21 12:00 07/07/21 07/07/21 07/07/21 06:59 14:59 22:59 Intake Total 780 / 1130 50 / 50 0 / 50 Output Total 600 / 3000 Balance 180 / -1870 50 / 50 0 / 50 Weight last 48 hrs Weight 316 lb 9.6 oz Weight 326 lb Physical Exam Narrative: GENERAL: The patient is alert and oriented times three. Not in any acute distress. Normal obese HEENT: No significant pallor, icterus or lymphadenopathy.Oral cavity: There are no mucous membrane lesions. NECK: Trachea appears to be central. No masses noted. No JVD or thyromegaly appreciated. RESPIRATORY: Chest is symmetrical. No intercostals muscle retraction or any accessory muscle activation. There is no chest wall tenderness. Breath sounds are heard bilaterally. No rales or rhonchi heard. No evidence of any consolidation. BREASTS: Deferred. HEART: The heart sounds are normal.? No S3 or S4.? Systolic murmur in the left sternal border.? No pericardial rub ABDOMEN: No vessel pulsations or distention. No tenderness. No organomegaly appr eciated.? Bowel sounds are normally heard. : Deferred. RECTAL: Deferred. LYMPHATIC: No lymphadenopathy noted in the neck. EXTREMITIES: 1-2+ edema both lower extremities. MUSCULOSKELETAL: No acute joint deformities or swelling SKIN: There are no significant rashes or ecchymosis. Has a decubitus ulcer, seems healed NEUROPSYCHIATRIC: The patient is alert and oriented x3. Appears to be in a good mood. No tremors or rigidity noted. Urinary Catheter Management: Santo: Cath Placed During This Visit: yes, but has since been removed by the nurse Reason for Continuing Indwelling Catheter: Decision to DC Catheter Urinary Catheter Date of Insertion: 06/25/21 Urinary Catheter Time of Insertion: 17:28 Date Urinary Catheter Removed: 07/02/21 Time Urinary Catheter Discontinued: 07:45 Data : 07/07/21 03:05 07/07/21 03:05 Other Labs: Laboratory Last Values WBC 23.3 10^3/uL (4.0-10.0) H 07/07/21 03:05 RBC 4.06 10^6/uL (4.1-5.3) L 07/07/21 03:05 Hgb 11.8 g/dL (11.7-16.6) 07/07/21 03:05 Hct 35.5 % (42.0-52.0) L 07/07/21 03:05 MCV 87.4 fl (80-94) 07/07/21 03:05 MCH 29.1 pg (28.0-34.0) 07/07/21 03:05 MCHC 33.2 g/dL (30.0-36.0) 07/07/21 03:05 RDW 12.6 % (12.1-15.1) 07/07/21 03:05 Plt Count 410 10^3/cmm (130-400) H 07/07/21 03:05 MPV 10.5 fL (7.4-10.4) H 07/07/21 03:05 Neut % (Auto) 77.4 % 07/07/21 03:05 Lymph % (Auto) 12.3 % 07/07/21 03:05 [place] % (Auto) 7.0 % 07/07/21 03:05 Eos % (Auto) 0.9 % 07/07/21 03:05 Baso % (Auto) 0.4 % 07/07/21 03:05 Neut # (Auto) 18.03 10^3/uL (1.8-7.7) H 07/07/21 03:05 Lymph # (Auto) 2.9 10^3/uL (0.8-4.8) 07/07/21 03:05 [place] # (Auto) 1.6 10^3/uL (0.2-0.9) H 07/07/21 03:05 Eos # (Auto) 0.2 10^3/uL (0.0-0.8) 07/07/21 03:05 Baso # (Auto) 0.1 10^3/uL (0.0-0.1) 07/07/21 03:05 Nucleated RBC % (auto) 0 % 07/07/21 03:05 Nucleated RBCs # 0.0 /100WBC 07/07/21 03:05 ESR 7 mm/hr (0-10) 06/26/21 03:35 PT 17.40 SECONDS (12.1-14.9) H 06/29/21 04:26 INR 1.38 (0.8-1.2) H 06/29/21 04:26 APTT 39.4 SECONDS (23.9-36.7) H 06/27/21 22:03 Specimen Type Arterial 06/29/21 11:09 Sample Site Radial, right 06/29/21 11:09 ABG pH 7.52 (7.35-7.45) H 06/29/21 11:09 ABG pCO2 31.5 mmHg (35-45) L 06/29/21 11:09 ABG pO2 79.4 mmHg (80.0-100.0) L 06/29/21 11:09 ABG HCO3 25.6 mmol/L (22-26) 06/29/21 11:09 ABG O2 Saturation 98.7 06/26/21 13:12 ABG Base Excess 3.2 mmol/L (-2.0-2.0) H 06/29/21 11:09 Judd Test Pos 06/29/21 11:09 A-a O2 Gradient 51.5 mmHg (5-10) H 06/26/21 13:12 Hematocrit 38.3 % (42-52) L 06/29/21 11:09 Hgb O2 Saturation 96.5 % (95-100) 06/26/21 13:12 Carboxyhemoglobin 1.2 %THgb (0.4-20.1) 06/26/21 13:12 Methemoglobin 1.0 % (0.4-1.5) 06/26/21 13:12 Total Hemoglobin 11.9 g/dL (14-18) L 06/26/21 13:12 Sodium 147.0 mmol/L (131-143) H 06/26/21 13:12 Potassium 4.2 mmol/L (3.5-5.0) 06/26/21 13:12 Glucose 165.0 mg/dL (70-115) H 06/26/21 13:12 Ionized Calcium 1.1 mmol/L (1.1-1.4) 06/26/21 13:12 O2 Delivery Device Bipap 06/29/21 11:09 FiO2 30.0 % 06/29/21 11:09 Tidal Volume 0.50 06/28/21 04:36 PEEP 6.0 cmH20 06/29/21 11:09 Plant Protection Supervisor ID Joan 06/29/21 11:09 Sodium 136 mmol/L (136-145) 07/07/21 03:05 Potassium 4.2 mmol/L (3.5-5.1) 07/07/21 03:05 Chloride 101 mmol/L (98-107) 07/07/21 03:05 Carbon Dioxide 19 mmol/L (22-29) L 07/07/21 03:05 Anion Gap 20.2 (5-19) H 07/07/21 03:05 BUN 64 mg/dL (8-23) H 07/07/21 03:05 Creatinine 2.1 mg/dL (0.7-1.2) H 07/07/21 03:05 GFR Calculation Not Reportable 07/07/21 03:05 Glucose 193 mg/dL (65-115) H 07/07/21 03:05 POC Glucose 231 mg/dL (70-110) H 07/07/21 20:22 Calculated Osmolality 306 mOsm/kg (285-295) H 07/07/21 03:05 Uric Acid 13.0 mg/dL (3.4-7.0) H 06/27/21 10:00 Calcium 9.5 mg/dL (8.5-10.5) 07/07/21 03:05 Phosphorus 4.3 mg/dL (2.5-4.5) 07/07/21 03:05 Magnesium 2.6 mg/dL (1.7-2.3) H 07/07/21 03:05 Total Bilirubin 0.4 mg/dL (0.15-1.2) 07/07/21 03:05 AST 22 U/L (0-40) 07/07/21 03:05 ALT 28 U/L (0-41) 07/07/21 03:05 Alkaline Phosphatase 87 IU/L (40-130) 07/07/21 03:05 Ammonia 20 umol/L (16-60) 06/29/21 17:43 Creatine Kinase 260 U/L (39-308) 07/04/21 08:00 Troponin T Baseline 66 ng/L (0-15) H 06/25/21 13:20 Troponin T 120 Minute 71.09 ng/L (0-15) H 06/25/21 14:20 Delta Troponin T 5.09 ABS# (0-10) 06/25/21 14:20 Troponin T Hi Sens 6Hr 70.78 ng/L (0-15) H 06/25/21 20:37 Troponin T Hi Sens 6Hr Delta 4.78 ng/L (0-12) 06/25/21 20:37 C-Reactive Protein 90.5 mg/L (0.0-4.9) H 07/07/21 03:05 NT-Pro-B Natriuret Pep 3852 pg/mL (0-125) H 07/07/21 03:05 Total Protein 6.7 g/dL (6.6-8.7) 07/07/21 03:05 Albumin 3.3 g/dL (3.5-5.2) L 07/07/21 03:05 Globulin 3.4 g/dL (1.3-4.6) 07/07/21 03:05 Renin Activity 2.80 ng/mL/h (0.25-5.82) 07/01/21 10:00 Aldosterone 5 ng/dL 07/01/21 10:00 25-OH Vitamin D Total 31 ng/mL (30-100) 06/28/21 04:35 Procalcitonin 0.32 ng/mL (0-0.5) 07/06/21 04:03 TSH 2.20 uIU/mL (0.27-4.20) 06/25/21 13:20 Urine Color Yellow (Yellow) 06/25/21 14:36 Urine Appearance Clear (CLEAR) 06/25/21 14:36 Urine pH 5 (5-7) 06/25/21 14:36 Ur Specific [place] 1.015 (1.005-1.030) 06/25/21 14:36 Urine Protein Neg (Negative) 06/25/21 14:36 Urine Glucose (UA) Norm (Normal) 06/25/21 14:36 Urine Ketones Negative (Negative) 06/25/21 14:36 Urine Blood Neg (Negative) 06/25/21 14:36 Urine Nitrate Negative (Negative) 06/25/21 14:36 Urine Bilirubin Neg (Negative) 06/25/21 14:36 Urine Urobilinogen Neg mg/dL (Negative) 06/25/21 14:36 Ur Leukocyte Esterase Negative (Negative) 06/25/21 14:36 Ur Random Sodium 60 mmol/L 06/27/21 09:30 Ur Random Potassium 41 mmol/L 06/27/21 09:30 Ur Random Chloride 53 mmol/L 06/27/21 09:30 Complement C3 125 mg/dL (90-180) 06/27/21 10:00 Complement C4 23 mg/dL (10-40) 06/27/21 10:00 Hepatitis C Antibody Non-reactive (Nonreactive) 06/27/21 10:00 A&P Assessment and plan (1) Status post cardiac pacemaker procedure: Patient has history of chronic atrial fibrillation. Currently he seems to be pacemaker dependent. Pacemaker function seems to be appropriate. Status: Acute (2) Congestive heart failure: Clinically the heart failure seems to be compensated. May continue on the current measures. Status: Chronic Qualifiers: Heart failure chronicity: acute on chronic Heart failure type: diastolic Qualified Code(s): I50.33 - Acute on chronic diastolic (congestive) heart failure (3) Acute kidney injury: The BUN and creatinine still remains high Status: Acute (4) Aspiration pneumonia: Oxygenation status has improved. Status post ventilatory support. Continues to be on antibiotics. Remains afebrile. Continue treatment as per the primary. White cell count seems to be going up, etiology? Status: Acute (5) Obstructive sleep apnea: May continue the CPAP Status: Chronic (6) Hyperlipidemia: May continue on the atorvastatin. Seems to be tolerating the medication well Status: Chronic Qualifiers: Hyperlipidemia type: unspecified Qualified Code(s): E78.5 - Hy perlipidemia, unspecified (7) Chronic anticoagulation: On Eliquis. Seems to be tolerating medication well. Status: Chronic (8) Altered mental status: Clinically has improved Status: Acute (9) Atrial fibrillation: Patient is diagnosed with a chronic atrial fibrillation. Currently seems to be pacemaker dependent Status: Chronic Qualifiers: Atrial fibrillation type: longstanding persistent Qualified Code(s): I48.11 - Longstanding persistent atrial fibrillation (10) Coronary artery disease: Clinically seems to be stable. Had myocardial perfusion imaging last year. Was found to have areas of fixed defects with very small areas of reversible defect. It was decided to continue medical treatment. Status: Chronic (11) PAD (peripheral artery disease): ABIs are 0.9 bilaterally. Currently the patient has no symptoms of peripheral insufficiency. We will continue on the current treatment measures. Status: Chronic (12) Nicotine dependence, chewing tobacco, with other nicotine-induced disorders: Status: Chronic Plan Other problems are Watery diarrhea, etiology? Generalized weakness . Difficulty in ambulation Morbid obesity Attestations Medical Necessity Statement*: Deferred to the primary Coding Level of Care Code Acute Vice President Business & Corporate Development for [facility] Fwd Diagnoses Status post cardiac pacemaker procedure Z95.0 Congestive heart failure I50.33 Heart failure chronicity: acute on chronic Heart failure type: diastolic Acute kidney injury N17.9 Aspiration pneumonia J69.0 Obstructive sleep apnea G47.33 Hyperlipidemia E78.5 Hyperlipidemia type: unspecified Chronic anticoagulation Z79.01 Altered mental status R41.82 Atrial fibrillation I48.11 Atrial fibrillation type: longstanding persistent Coronary artery disease I25.10 PAD (peripheral artery disease) I73.9 Nicotine dependence, chewing tobacco, with other nicotine-induced disorders F17.228
[2021-07-07 21:57] VITALS: PULSE 72
[2021-07-08] VITALS (8 sets, daily range): BP systolic 136–162; BP diastolic 60–72; PULSE 68–97; RESP 16–17; TEMP 36.6–36.9; O2SAT 93–96
[2021-07-08] MEDS: metoprolol tartrate 50 mg Tablet PO ×2 (06:01→18:04)
[2021-07-08 06:47] LABS: Alanine Aminotransferase 19 U/L (0-41); Albumin Level 3.4 g/dL (3.5-5.2); Alkaline Phosphatase 86 IU/L (40-130); Anion Gap 19.9 (5-19); Aspartate Amino Transferase 14 U/L (0-40); Basophils # 0.1 10^3/uL (0.0-0.1); Basophils % 0.4 %; Blood Urea Nitrogen 55 mg/dL (8-23); C Reactive Protein 74.7 mg/L (0.0-4.9); Calcium 9.4 mg/dL (8.5-10.5); Carbon Dioxide 19 mmol/L (22-29); Chloride 101 mmol/L (98-107); Eosinophils # 0.1 10^3/uL (0.0-0.8); Eosinophils % 0.5 %; Globulin 2.8 g/dL (1.3-4.6); Glucose 188 mg/dL (65-115); Hematocrit 32.6 % (42.0-52.0); Hemoglobin 11.1 g/dL (11.7-16.6); Lymphocytes # 2.5 10^3/uL (0.8-4.8); Lymphocytes % 9.9 %; Magnesium 2.4 mg/dL (1.7-2.3); Mean Corpuscular Hemoglobin 29.1 pg (28.0-34.0); Mean Corpuscular Volume 85.6 fl (80-94); Mean Platelet Volume 10.5 fL (7.4-10.4); Monocytes # 1.4 10^3/uL (0.2-0.9); Monocytes % 5.3 %; Neutrophils % 82.3 %; Nucleated Red Blood Cells % 0 %; Osmolality Calculated 302 mOsm/kg (285-295); Phosphorus 4.4 mg/dL (2.5-4.5); Platelet Count 428 10^3/cmm (130-400); Potassium 3.9 mmol/L (3.5-5.1); Red Blood Count 3.81 10^6/uL (4.1-5.3); Red Cell Distribution Width 12.6 % (12.1-15.1); Sodium 136 mmol/L (136-145); Total Bilirubin 0.4 mg/dL (0.15-1.2); Total Protein 6.2 g/dL (6.6-8.7); White Blood Count 25.6 10^3/uL (4.0-10.0)
[2021-07-08 07:12] LABS: Glucose Point of Care 202 mg/dL (70-110)
[2021-07-08 07:24] LABS: NT Pro B Type Natriuretic Pept 3309 pg/mL (0-125)
--- NOTE | 2021-07-08 07:40 | PM.PN ---
Subjective Subjective: feels better. no n/v/f/c/heredia/d/leg pains Medications: Reviewed: Yes Medication Review Details: Current Medications Acetaminophen (Acetaminophen 325 Mg Tablet) 650 mg PO Q6H PRN PRN Reason: MILD PAIN Last Admin: 06/28/21 19:29 Dose: 650 mg Documented by: Amlodipine Besylate (Amlodipine 10 Mg Tablet) 5 mg PO DAILY [facility] Last Admin: 07/07/21 08:19 Dose: 5 mg Documented by: Apixaban (Apixaban 5 Mg Tablet) 5 mg PO BID@0900,2100 [facility] Last Admin: 07/07/21 21:34 Dose: 5 mg Documented by: Aspirin (Aspirin 81 Mg Ec Tablet) 81 mg PO DAILY [facility] Last Admin: 07/07/21 08:20 Dose: 81 mg Documented by: Atorvastatin Calcium (Atorvastatin 40 Mg Tablet) 40 mg PO QPM [facility] Last Admin: 07/07/21 17:55 Dose: 40 mg Documented by: Bumetanide (Bumetanide 0.25 Mg/Ml Sdv 4 Ml) 1 mg IVP Q12H [facility] Last Admin: 07/07/21 19:53 Dose: 1 mg Documented by: Chlorhexidine Gluconate (Chlorhexidine Gluconate 4% Btl 118 Ml) 1 applic TOPICAL BID [facility] Last Admin: 07/07/21 17:55 Dose: Not Given Documented by: Clonidine HCl (Clonidine 0.3 Mg/24 Hr Patch) 1 patch TRANSDERMA Q7D [facility] Last Admin: 07/07/21 09:49 Dose: 1 patch Documented by: Dextrose (Dextrose 50% Syringe 50 Ml) 25 ml IVP ONCE PRN; Protocol PRN Reason: hypoglycemia protocol Dextrose (Dextrose 50% Syringe 50 Ml) 50 ml IVP PRN PRN; Protocol PRN Reason: hypoglycemia protocol Docusate Sodium (Docusate Sodium 10 Mg/Ml (5ml) Liq) 100 mg PO BID [facility] Last Admin: 07/07/21 18:08 Dose: Not Given Documented by: Folic Acid (Folic Acid 1 Mg Tablet) 1 mg PO DAILY [facility] Last Admin: 07/07/21 08:21 Dose: 1 mg Documented by: Glucagon (Glucagon 1 Mg/Ml Inj 1 Ml) 1 mg IM ONCE PRN; Protocol PRN Reason: Adult Acute Hypoglycemia Prot. Hydralazine HCl (Hydralazine 20 Mg/Ml Inj 1 Ml) 10 mg IVP Q4H PRN PRN Reason: Nausea and Vomiting, Severe Last Admin: 07/01/21 16:49 Dose: 10 mg Documented by: Hydralazine HCl (Hydralazine 25 Mg Tablet) 50 mg PO TID [facility] Last Admin: 07/07/21 21:32 Dose: 50 mg Documented by: Hydrochlorothiazide (Hydrochlorothiazide 25 Mg Tablet) 25 mg PO DAILY [facility] Last Admin: 07/07/21 08:20 Dose: 25 mg Documented by: Dextrose (D5w) 500 mls @ 100 mls/hr IV ONCE PRN; Protocol PRN Reason: Adult Acute Hypoglycemia Prot Ceftriaxone Sodium 1,000 mg/ (Sodium Chloride) 50 mls @ 100 mls/hr IV Q24H [facility]; Protocol Last Infusion: 07/07/21 10:28 Dose: Infused Documented by: Vancomycin/PEG/[place]/Lysine/Water (Vancocin) 1,500 mg in 300 mls @ 200 mls/hr IV Q18H [facility] Last Infusion: 07/07/21 23:10 Dose: Infused Documented by: Insulin Glargine (Insulin Glargine 100 Units/1 Ml) 5 unit SUBCUT Q12H [facility] Last Admin: 07/07/21 21:33 Dose: 5 unit Documented by: Insulin Human Lispro (Insulin Lispro 100 Unit/1 Ml) 0 unit SUBCUT BEDTIME [facility]; Protocol Last Admin: 07/07/21 21:33 Dose: 4 unit Documented by: Insulin Human Lispro (Insulin Lispro 100 Unit/1 Ml) 0 unit SUBCUT TIDWM [facility]; Protocol Last Admin: 07/07/21 17:55 Dose: 10 unit Documented by: Isosorbide Mononitrate (Isosorbide Mononitrate Er 60 Mg Tablet) 120 mg PO DAILY [facility] Last Admin: 07/07/21 08:20 Dose: 120 mg Documented by: Labetalol HCl (Labetalol 5 Mg/Ml Sdv 20ml) 10 mg IVP Q4H PRN PRN Reason: SBP>180 or DBP>90 hold if HR<60 Last Admin: 07/02/21 11:42 Dose: 10 mg Documented by: Metoprolol Tartrate (Metoprolol Tartrate 50 Mg Tablet) 50 mg PO Q12H [facility] Last Admin: 07/08/21 06:01 Dose: 50 mg Documented by: Minoxidil (Minoxidil 10 Mg Tablet) 2.5 mg PO DAILY [facility] Last Admin: 07/07/21 08:18 Dose: 2.5 mg Documented by: Multivitamins Therapeutic (Multivitamin Therapeutic Tablet) 1 tab PO DAILY [facility] Last Admin: 07/07/21 08:21 Dose: 1 tab Documented by: Nicotine (Nicotine 21 Mg Patch) 1 patch TRANSDERMA DAILY [facility] Last Admin: 07/07/21 08:22 Dose: Not Given Documented by: Ondansetron HCl (Ondansetron 2 Mg/Ml Sdv 2 Ml) 4 mg IVP Q8H PRN PRN Reason: NAUSEA AND VOMITING Pantoprazole Sodium (Pantoprazole Dr 40 Mg Tablet) 40 mg PO DAILY [facility] Last Admin: 07/07/21 08:21 Dose: 40 mg Documented by: Potassium Chloride (Potassium Chloride Er 20 Meq Tablet) 20 meq PO Q12H [facility] Last Admin: 07/07/21 21:33 Dose: 20 meq Documented by: Spironolactone (Spironolactone 25 Mg Tablet) 50 mg PO BID [facility] Last Admin: 07/07/21 17:55 Dose: 50 mg Documented by: Thiamine Mononitrate (Thiamine 100 Mg Tablet) 100 mg PO DAILY [facility] Last Admin: 07/07/21 08:20 Dose: 100 mg Documented by: Vitals/I&O/Wt Last Vital Signs Temp 98 F 07/08/21 04:00 Pulse 75 07/08/21 04:51 Resp 17 07/08/21 04:00 BP 139/60 07/08/21 04:00 Pulse Ox 96 07/08/21 04:00 07/07/21 07/08/21 07/08/21 22:59 06:59 14:59 Intake Total 100 / 150 300 / 450 Output Total 350 / 350 500 / 850 Balance -250 / -200 -200 / -400 Weight last 48 hrs Weight 141.249 kg Weight 143.607 kg Physical Exam Narrative: obese, sitting up in bed, NARD heent- nc/at, eomi neck supple lungs diminidhed bases b/l heart -paced rhythm + s1, s2 abd soft, nt, nd, + bs ext 2+edema, poor pulses rt foot w/ an ischemic toe neuro- awake, alert oriented x 3 no chritsine Urinary Catheter Management: Christine: Cath Placed During This Visit: yes, but has since been removed by the nurse Reason for Continuing Indwelling Catheter: Decision to DC Catheter Urinary Catheter Date of Insertion: 06/25/21 Urinary Catheter Time of Insertion: 17:28 Date Urinary Catheter Removed: 07/02/21 Time Urinary Catheter Discontinued: 07:45 Data : 07/08/21 05:00 07/08/21 05:00 A&P Assessment and plan (1) Acute kidney injury: 1. Acute kidney injury Likely bradycardic cardiorenal syndrome Renal function recovered to cr 1.8 -1.9 mg/dl. -monitor cr if he allows Monitor strict I's and O's Avoid usual nephrotoxic agents Dose medication for CKD stage 3 b/4. -christine out 2. In May at [place] his cr was 1.8 mg/dl and k 5- giving him stage 3b/4 CKD- age, htn, dm 3. HTN -improved -agree w/ diuresis -ua negative not c/w vasculitis -taper down meds if possible 4.bradycardia -paced and improved. 5. hyperglycemia - gluc control 6. leukocytosis - wbc up to 25- pna on abx- monitor vanco levels- keep trough under 19 7. 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
--- NOTE | 2021-07-08 08:09 | PC.SOCIAL ---
IMM Update pg 2 of IMM updated and reviewed w/ patient. Copy provided and Copy in chart updated.
[2021-07-08] MEDS: isosorbide mononitrate ER 60 mg Tablet 120 MG PO (08:49)
[2021-07-08] MEDS: pantoprazole DR 40 mg Tablet PO (08:50)
[2021-07-08] MEDS: spironolactone 25 mg Tablet 50 MG PO ×2 (08:50→17:24)
[2021-07-08] MEDS: potassium chloride ER 20 mEq Tablet PO ×2 (08:50→20:56)
[2021-07-08] MEDS: folic acid 1 mg Tablet PO (08:50)
[2021-07-08] MEDS: multivitamin therapeutic Tablet 1 TAB PO (08:50)
[2021-07-08] MEDS: apixaban 5 mg Tablet PO ×2 (08:50→20:56)
[2021-07-08] MEDS: amlodipine 10 mg Tablet 5 MG PO (08:50)
[2021-07-08] MEDS: thiamine 100 mg Tablet PO (08:50)
[2021-07-08] MEDS: aspirin 81 mg EC Tablet PO (08:50)
[2021-07-08] MEDS: hyDRALAzine 25 mg Tablet PO ×3 (08:50→20:55)
[2021-07-08] MEDS: hydroCHLOROthiazide 25 mg Tablet PO (08:50)
[2021-07-08] MEDS: minoxidil 10 mg Tablet 2.5 MG PO (08:51)
[2021-07-08] MEDS: insulin lispro 100 unit/1 mL SUBCUT ×4 (08:51→20:55)
[2021-07-08] MEDS: insulin glargine 100 units/1 mL 5 UNIT SUBCUT ×2 (08:52→20:55)
[2021-07-08] MEDS: bumetanide 0.25 mg/mL SDV 4 mL 1 MG IVP ×2 (08:53→19:37)
[2021-07-08] MEDS: cefTRIAXone 1,000 MG in sodium chloride 0.9% (plus) 50 ML 100 MG IV (11:14)
[2021-07-08 11:47] LABS: Glucose Point of Care 305 mg/dL (70-110)
[2021-07-08 15:50] LABS: Vancomycin Trough 18.7 ug/mL (10-15)
[2021-07-08] MEDS: vancomycin 1,500 MG/300 ML PIGGYBACK 200 MG IV (16:35)
--- NOTE | 2021-07-08 17:15 | PC.NURSE ---
SHift Summary: Uneventful shift. Patient was up to a chair for the majority of the day. ALert and Oriented. Patient is anxious to go home. Was saying he would leave AMA, but nurse convinced him to stay and have discussion with the physician.
[2021-07-08 17:23] LABS: Glucose Point of Care 238 mg/dL (70-110)
[2021-07-08] MEDS: atorvastatin 40 mg Tablet PO (17:24)
[2021-07-08] MEDS: chlorhexidine gluconate 4% Btl 118 mL 1 APPLIC TOPICAL (17:24)
--- NOTE | 2021-07-08 18:32 | PM.PN ---
Subjective Subjective: The patient seems to be slowly improving. Still complaining of diarrhea. No fever or chills. No cough. The vital signs remained stable. Medications: Medication Review Details: Current Medications Acetaminophen (Acetaminophen 325 Mg Tablet) 650 mg PO Q6H PRN PRN Reason: MILD PAIN Last Admin: 06/28/21 19:29 Dose: 650 mg Documented by: Amlodipine Besylate (Amlodipine 10 Mg Tablet) 5 mg PO DAILY [facility] Last Admin: 07/08/21 08:50 Dose: 5 mg Documented by: Apixaban (Apixaban 5 Mg Tablet) 5 mg PO BID@0900,2100 [facility] Last Admin: 07/08/21 08:50 Dose: 5 mg Documented by: Aspirin (Aspirin 81 Mg Ec Tablet) 81 mg PO DAILY [facility] Last Admin: 07/08/21 08:50 Dose: 81 mg Documented by: Atorvastatin Calcium (Atorvastatin 40 Mg Tablet) 40 mg PO QPM [facility] Last Admin: 07/08/21 17:24 Dose: 40 mg Documented by: Bumetanide (Bumetanide 0.25 Mg/Ml Sdv 4 Ml) 1 mg IVP Q12H [facility] Last Admin: 07/08/21 08:53 Dose: 1 mg Documented by: Chlorhexidine Gluconate (Chlorhexidine Gluconate 4% Btl 118 Ml) 1 applic TOPICAL BID [facility] Last Admin: 07/08/21 17:24 Dose: 1 applic Documented by: Clonidine HCl (Clonidine 0.3 Mg/24 Hr Patch) 1 patch TRANSDERMA Q7D [facility] Last Admin: 07/07/21 09:49 Dose: 1 patch Documented by: Dextrose (Dextrose 50% Syringe 50 Ml) 25 ml IVP ONCE PRN; Protocol PRN Reason: hypoglycemia protocol Dextrose (Dextrose 50% Syringe 50 Ml) 50 ml IVP PRN PRN; Protocol PRN Reason: hypoglycemia protocol Docusate Sodium (Docusate Sodium 10 Mg/Ml (5ml) Liq) 100 mg PO BID [facility] Last Admin: 07/08/21 17:06 Dose: Not Given Documented by: Folic Acid (Folic Acid 1 Mg Tablet) 1 mg PO DAILY [facility] Last Admin: 07/08/21 08:50 Dose: 1 mg Documented by: Glucagon (Glucagon 1 Mg/Ml Inj 1 Ml) 1 mg IM ONCE PRN; Protocol PRN Reason: Adult Acute Hypoglycemia Prot. Hydralazine HCl (Hydralazine 20 Mg/Ml Inj 1 Ml) 10 mg IVP Q4H PRN PRN Reason: Nausea and Vomiting, Severe Last Admin: 07/01/21 16:49 Dose: 10 mg Documented by: Hydralazine HCl (Hydralazine 25 Mg Tablet) 25 mg PO TID [facility] Last Admin: 07/08/21 15:37 Dose: 25 mg Documented by: Hydrochlorothiazide (Hydrochlorothiazide 25 Mg Tablet) 25 mg PO DAILY [facility] Last Admin: 07/08/21 08:50 Dose: 25 mg Documented by: Dextrose (D5w) 500 mls @ 100 mls/hr IV ONCE PRN; Protocol PRN Reason: Adult Acute Hypoglycemia Prot Ceftriaxone Sodium 1,000 mg/ (Sodium Chloride) 50 mls @ 100 mls/hr IV Q24H [facility]; Protocol Last Infusion: 07/08/21 16:55 Dose: Infused Documented by: Vancomycin/PEG/NADA/Lysine/Water (Vancocin) 1,500 mg in 300 mls @ 200 mls/hr IV Q18H [facility] Last Infusion: 07/08/21 18:32 Dose: Infused Documented by: Insulin Glargine (Insulin Glargine 100 Units/1 Ml) 5 unit SUBCUT Q12H [facility] Last Admin: 07/08/21 08:52 Dose: 5 unit Documented by: Insulin Human Lispro (Insulin Lispro 100 Unit/1 Ml) 0 unit SUBCUT BEDTIME [facility]; Protocol Last Admin: 07/07/21 21:33 Dose: 4 unit Documented by: Insulin Human Lispro (Insulin Lispro 100 Unit/1 Ml) 0 unit SUBCUT TIDWM [facility]; Protocol Last Admin: 07/08/21 18:03 Dose: 8 unit Documented by: Isosorbide Mononitrate (Isosorbide Mononitrate Er 60 Mg Tablet) 120 mg PO DAILY [facility] Last Admin: 07/08/21 08:49 Dose: 120 mg Documented by: Labetalol HCl (Labetalol 5 Mg/Ml Sdv 20ml) 10 mg IVP Q4H PRN PRN Reason: SBP>180 or DBP>90 hold if HR<60 Last Admin: 07/02/21 11:42 Dose: 10 mg Documented by: Metoprolol Tartrate (Metoprolol Tartrate 50 Mg Tablet) 50 mg PO Q12H [facility] Last Admin: 07/08/21 18:04 Dose: 50 mg Documented by: Minoxidil (Minoxidil 10 Mg Tablet) 2.5 mg PO DAILY [facility] Last Admin: 07/08/21 08:51 Dose: 2.5 mg Documented by: Multivitamins Therapeutic (Multivitamin Therapeutic Tablet) 1 tab PO DAILY [facility] Last Admin: 07/08/21 08:50 Dose: 1 tab Documented by: Nicotine (Nicotine 21 Mg Patch) 1 patch TRANSDERMA DAILY [facility] Last Admin: 07/08/21 08:54 Dose: Not Given Documented by: Ondansetron HCl (Ondansetron 2 Mg/Ml Sdv 2 Ml) 4 mg IVP Q8H PRN PRN Reason: NAUSEA AND VOMITING Pantoprazole Sodium (Pantoprazole Dr 40 Mg Tablet) 40 mg PO DAILY [facility] Last Admin: 07/08/21 08:50 Dose: 40 mg Documented by: Potassium Chloride (Potassium Chloride Er 20 Meq Tablet) 20 meq PO Q12H [facility] Last Admin: 07/08/21 08:50 Dose: 20 meq Documented by: Spironolactone (Spironolactone 25 Mg Tablet) 50 mg PO BID [facility] Last Admin: 07/08/21 17:24 Dose: 50 mg Documented by: Thiamine Mononitrate (Thiamine 100 Mg Tablet) 100 mg PO DAILY [facility] Last Admin: 07/08/21 08:50 Dose: 100 mg Documented by: Vitals/I&O/Wt Last Vital Signs Temp 98.4 F 07/08/21 15:37 Pulse 73 07/08/21 15:37 Resp 16 07/08/21 15:37 BP 136/68 07/08/21 15:37 Pulse Ox 93 07/08/21 15:37 07/08/21 07/08/21 07/08/21 06:59 14:59 22:59 Intake Total 300 / 450 350 / 350 Output Total 500 / 850 500 / 500 300 / 800 Balance -200 / -400 -500 / -500 50 / -450 Weight last 48 hrs Weight 311 lb 6.4 oz Weight 316 lb 9.6 oz Physical Exam Narrative: GENERAL: The patient is alert and oriented times three. Not in any acute distress.? Normal obese HEENT: No significant pallor, icterus or lymphadenopathy.Oral cavity: There are no mucous membrane lesions. NECK: Trachea appears to be central. No masses noted. No JVD or thyromegaly appreciated. RESPIRATORY: Chest is symmetrical. No intercostals muscle retraction or any accessory muscle activation. There is no chest wall tenderness. Breath sounds are heard bilaterally. No rales or rhonchi heard. No evidence of any consolidation. BREASTS: Deferred. HEART: The heart sounds are normal.? No S3 or S4.? Systolic murmur in the left sternal border.? No pericardial rub ABDOMEN: No vessel pulsations or distention. No tenderness. No organomegaly appreciated.? Bowel sounds are normally heard. : Deferred. RECTAL: Deferred. LYMPHATIC: No lymphadenopathy noted in the neck. EXTREMITIES: 1-2+ edema both lower extremities. MUSCULOSKELETAL: No acute joint deformities or swelling SKIN: There are no significant rashes or ecchymosis.? Has a decubitus ulcer, seems healed NEUROPSYCHIATRIC: The patient is alert and oriented x3. Appears to be in a good mood. No tremors or rigidity noted. Urinary Catheter Management: Santo: Cath Placed During This Visit: yes, but has since been removed by the nurse Reason for Continuing Indwelling Catheter: Decision to DC Catheter Urinary Catheter Date of Insertion: 06/25/21 Urinary Catheter Time of Insertion: 17:28 Date Urinary Catheter Removed: 07/02/21 Time Urinary Catheter Discontinued: 07:45 Data : 07/08/21 05:00 07/08/21 05:00 A&P Assessment and plan (1) Status post cardiac pacemaker procedure: Patient has history of chronic atrial fibrillation. Currently he seems to be pacemaker dependent. Pacemaker function seems to be appropriate. Status: Acute (2) Congestive heart failure: Clinically the heart failure seems to be compensated. May continue on the current measures. Status: Chronic Qualifiers: Heart failure chronicity: acute on chronic Heart failure type: diastolic Qualified Code(s): I50.33 - Acute on chronic diastolic (congestive) heart failure (3) Atrial fibrillation: Patient is diagnosed with a chronic atrial fibrillation. Currently seems to be pacemaker dependent Status: Chronic Qualifiers: Atrial fibrillation type: longstanding persistent Qualified Code(s): I48.11 - Longstanding persistent atrial fibrillation (4) Coronary artery disease: Clinically seems to be stable. Had myocardial perfusion imaging last year. Was found to have areas of fixed defects with very small areas of reversible defect. It was decided to continue medical treatment. Status: Chronic (5) Acute kidney injury: The BUN and creatinine still remains high Status: Acute (6) Aspiration pneumonia: Oxygenation status has improved. Status post ventilatory support. Continues to be on antibiotics. Remains afebrile. Continue treatment as per the primary. White cell count seems to be going up, etiology? Status: Acute (7) Obstructive sleep apnea: May continue the CPAP Status: Chronic (8) Hyperlipidemia: May continue on the atorvastatin. Seems to be tolerating the medication well Status: Chronic Qualifiers: Hyperlipidemia type: unspecified Qualified Code(s): E78.5 - Hyperlipidemia, unspecified (9) Chronic anticoagulation: On Eliquis. Seems to be tolerating medication well. Status: Chronic (10) PAD (peripheral artery disease): ABIs are 0.9 bilaterally. Currently the patient has no symptoms of peripheral insufficiency. We will continue on the current treatment measures. Status: Chronic (11) Nicotine dependence, chewing tobacco, with other nicotine-induced disorders: Status: Chronic Plan Other problems are Watery diarrhea, etiology? Generalized weakness . Difficulty in ambulation Morbid obesity Continue the physical therapy and other treatment measures. Patient's cardiovascular status seems to be stable. 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[employer] Fwd History Expanded Problem Focused Exam Expanded Problem Focused Medical Decision Making Moderate Complexity Diagnoses Status post cardiac pacemaker procedure Z95.0 Congestive heart failure I50.33 Heart failure chronicity: acute on chronic Heart failure type: diastolic Acute kidney injury N17.9 Aspiration pneumonia J69.0 Obstructive sleep apnea G47.33 Hyperlipidemia E78.5 Hyperlipidemia type: unspecified Chronic anticoagulation Z79.01 Atrial fibrillation I48.11 Atrial fibrillation type: longstanding persistent Coronary artery disease I25.10 PAD (peripheral artery disease) I73.9 Nicotine dependence, chewing tobacco, with other nicotine-induced disorders F17.228
--- NOTE | 2021-07-08 20:24 | PM.PN ---
Subjective Subjective: Reports having several episodes of liquid stools. Earlier today AGAINST MEDICAL ADVICE. On discussion with him he states he is not ambulating. Discussed with him the danger of currently leaving the hospital given he requires assistance with transfers, ambulation. He states he has a wheelchair, but states that he understands that he may not be able to transfer by himself and does not have anybody to assist him as he lives alone. She states he may get home health, although discussed with him they would not be there 24 hours. He is willing to continue to stay here for further disposition Marisol and arrangements, but states that he might leave on Thursday. States that he has a primary provider appointment on . Vitals/I&O/Wt Last Vital Signs Temp 98 F 07/08/21 20:00 Pulse 81 07/08/21 20:00 Resp 17 07/08/21 20:00 BP 156/71 07/08/21 20:00 Pulse Ox 94 07/08/21 20:00 07/08/21 07/08/21 07/08/21 06:59 14:59 22:59 Intake Total 300 / 450 590 / 590 Output Total 500 / 850 500 / 500 300 / 800 Balance -200 / -400 -500 / -500 290 / -210 Weight last 48 hrs Weight 141.249 kg Weight 143.607 kg Physical Exam Narrative: Sitting up in chair. Const: COMMON NORMALS: alert GENERAL APPEARANCE: cooperative ORIENTATION/CONSCIOUSNESS: Yes awake HENMT: COMMON NORMALS: normocephalic, EAC's normal, Normal external nose present and moist oral mucous membranes HEAD & SCALP: normocephalic NOSE: Normal external nose present EXTERNAL AUDITORY CANAL: EAC's normal Neck/C-Spine: COMMON NORMALS: no meningeal signs Chest: CHEST: Yes Symmetrical chest wall rise Resp: COMMON NORMALS: clear to auscultation bilaterally AUSCULTATION: clear to auscultation bilaterally Cardio: COMMON NORMALS: regular rate, regular rhythm and No murmurs present (Cardio) RATE: regular rate RHYTHM: regular rhythm GI: COMMON NORMALS: Normal to inspection, nondistended, normoactive bowel sounds present, Soft to palpation and non-tender PALPATION: Yes Soft to palpation Extremity: GENERAL: Yes edema (1-2+ BL LE) Neuro: COMMON NORMALS: moves all extremities SENSORIUM/ORIENTATION: Yes alert MENINGEAL SIGNS: Yes no meningeal signs Psych: COMMON NORMALS: mental status grossly normal Skin: COMMON NORMALS: no wounds RASHES: no rashes Urinary Catheter Management: Santo: Cath Placed During This Visit: yes, but has since been removed by the nurse Reason for Continuing Indwelling Catheter: Decision to DC Catheter Urinary Catheter Date of Insertion: 06/25/21 Urinary Catheter Time of Insertion: 17:28 Date Urinary Catheter Removed: 07/02/21 Time Urinary Catheter Discontinued: 07:45 Data : 07/08/21 05:00 07/08/21 05:00 A&P Assessment and plan (1) Diarrhea: Leukocytosis, 25.6, diarrhea. Requested for C. difficile. Status: Acute (2) Aspiration pneumonia: Status: Acute (3) Acute kidney injury: Today creatinine slightly better, down to 1.9. Continue to hold diuretics. Does not currently appear decompensated. Status: Acute (4) Bradycardia: S/p PPM Status: Acute (5) Hyperkalemia: Resolved. Potassium supplementation at home. Spironolactone on hold. Status: Acute (6) Accelerated hypertension: Continue isosorbide, metoprolol, hydralazine, amlodipine Status: Acute (7) Congestive heart failure: Acute on chronic preserved ejection fraction last echocardiogram Diuretics on hold. Does have 1-2+ peripheral edema, but some of it may also be due to other factors including amlodipine. May improve when he is able to restart some ARB. For now diuretics are held. Reassess renal function. Mild improvement today down to 1.9. Status: Chronic Qualifiers: Heart failure chronicity: acute on chronic Heart failure type: diastolic Qualified Code(s): I50.33 - Acute on chronic diastolic (congestive) heart failure (8) Abnormal nuclear stress test: Per Dr. Segura clinical notes although upon review it looks like abnormalities could also be consistent with attenuation defects. This is from stress testing done in September of last year. Status: Acute (9) Coronary artery disease: Has not required previous intervention. Records indicate last arteriogram showed 55% narrowing and unclear vessel. Describes anginal type symptoms lately although this could be related to demand ischemia from impact of bradycardia. Continue medical management. Status: Chronic (10) Atrial fibrillation: Presently with slow ventricular response, chronic PPM dependent. Eliquis Status: Chronic Qualifiers: Atrial fibrillation type: longstanding persistent Qualified Code(s): I48.11 - Longstanding persistent atrial fibrillation (11) Chronic anticoagulation: Chronically on Eliquis Status: Chronic (12) Diabetes mellitus, type II: Hemoglobin A1c at the [facility] June 17, 2021 was 8.0 Chronically on insulin and semaglutide Status: Chronic Qualifiers: Diabetes mellitus nursing home insulin use: with nursing home use Diabetes mellitus complication status: with neurologic complications Diabetes mellitus complication detail: with polyneuropathy Qualified Code(s): E11.42 - Type 2 diabetes mellitus with diabetic polyneuropathy; Z79.4 - senior living (current) use of insulin (13) BPH NOS w/o ur obs/LUTS: Chronically on finasteride and Flomax, describes progressive lower urinary symptoms suggestive of potential bladder outlet obstruction contributing to acute kidney injury Status: Chronic (14) Calculus of proximal ureter: Has been present for some time, nonobstructing or at least in the same location last time it was evaluated, patient does not describe classic symptoms of kidney stones but at risk of having an obstructive process Status: Acute (15) Hyperlipidemia: Lipid panel checked June 17, 2021 at the [facility] showed total cholesterol of 206, triglycerides of 189, HDL of 43.9 and calculated LDL of 124.3 with an HDL to total cholesterol ratio of 21.3% Chronically on statin Status: Chronic Qualifiers: Hyperlipidemia type: unspecified Qualified Code(s): E78.5 - Hyperlipidemia, unspecified (16) Obstructive sleep apnea: Does not wear CPAP by choice Status: Chronic (17) BMI 40.0-44.9, adult: Status: Acute (18) Nicotine dependence, chewing tobacco, with other nicotine-induced disorders: Status: Chronic (19) Altered mental status: Resolved Status: Acute (20) Bilateral lower leg cellulitis: Improved Status: Acute (21) Physical deconditioning: Physical deconditioning and functional decline. She is requiring assistance with transfers with gait belt. Previously ambulating with a walker. Lives alone. Was going to leave AMA today, but for now is going to stay, continue work with therapy, continue arrangements for SNF. Status: Acute Plan Acute hyponatremia, resolved Acute respiratory failure, hypoxia, resolved Type II diabetes mellitus, low-dose sliding scale, add Lantus History of CVA, monitor History of CAD Peripheral arterial disease, bilateral extremities are much more pink, flushed, DP PT pulses palpable, bilateral extremities improving coloration, needs to follow-up with cardiothoracic surgery as outpatient Area of bruises, right great toe, left second and third digit, black discoloration, likely from minimal trauma Attestations Medical Necessity Statement*: Continue admission for additional assessment of persistent watery diarrhea with rise in leukocytosis, continue therapy with physical deconditioning and arrangements for post discharge rehabilitation. 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 [facility] Fwd Diagnoses Aspiration pneumonia J69.0 Acute kidney injury N17.9 Bradycardia R00.1 Hyperkalemia E87.5 Accelerated hypertension I10 Congestive heart failure I50.33 Heart failure chronicity: acute on chronic Heart failure type: diastolic Abnormal nuclear stress test R94.39 Coronary artery disease I25.10 Atrial fibrillation I48.11 Atrial fibrillation type: longstanding persistent Chronic anticoagulation Z79.01 Diabetes mellitus, type II E11.42; Z79.4 Diabetes mellitus nursing home insulin use: with nursing home use Diabetes mellitus complication status: with neurologic complications Diabetes mellitus complication detail: with polyneuropathy BPH NOS w/o ur obs/LUTS N40.0 Calculus of proximal ureter N20.1 Hyperlipidemia E78.5 Hyperlipidemia type: unspecified Obstructive sleep apnea G47.33 BMI 40.0-44.9, adult Z68.41 Nicotine dependence, chewing tobacco, with other nicotine-induced disorders F17.228 Altered mental status R41.82 Bilateral lower leg cellulitis L03.116; L03.115 Diarrhea R19.7 Physical deconditioning R53.81
[2021-07-09] VITALS (9 sets, daily range): BP systolic 121–181; BP diastolic 64–80; PULSE 72–103; RESP 16–20; TEMP 36.3–36.8; O2SAT 90–98
[2021-07-09] MEDS: metoprolol tartrate 50 mg Tablet PO (06:04)
[2021-07-09 06:15] LABS: Basophils # 0.1 10^3/uL (0.0-0.1); Basophils % 0.7 %; Eosinophils # 0.3 10^3/uL (0.0-0.8); Eosinophils % 1.3 %; Hematocrit 34.2 % (42.0-52.0); Hemoglobin 11.5 g/dL (11.7-16.6); Lymphocytes % 15.7 %; Mean Corpuscular HGB Conc 33.6 g/dL (30.0-36.0); Mean Corpuscular Hemoglobin 28.5 pg (28.0-34.0); Mean Corpuscular Volume 84.9 fl (80-94); Mean Platelet Volume 10.3 fL (7.4-10.4); Monocytes # 1.2 10^3/uL (0.2-0.9); Monocytes % 6.2 %; Neutrophils # 13.56 10^3/uL (1.8-7.7); Neutrophils % 72.2 %; Nucleated Red Blood Cells % 0 %; Platelet Count 456 10^3/cmm (130-400); Red Blood Count 4.03 10^6/uL (4.1-5.3); Red Cell Distribution Width 12.6 % (12.1-15.1); White Blood Count 18.8 10^3/uL (4.0-10.0)
[2021-07-09 06:53] LABS: Alanine Aminotransferase 21 U/L (0-41); Albumin Level 3.4 g/dL (3.5-5.2); Alkaline Phosphatase 95 IU/L (40-130); Anion Gap 20.7 (5-19); Aspartate Amino Transferase 18 U/L (0-40); Blood Urea Nitrogen 65 mg/dL (8-23); C Reactive Protein 45.2 mg/L (0.0-4.9); Calcium 9.3 mg/dL (8.5-10.5); Carbon Dioxide 17 mmol/L (22-29); Chloride 102 mmol/L (98-107); Globulin 3.2 g/dL (1.3-4.6); Glucose 236 mg/dL (65-115); Magnesium 2.4 mg/dL (1.7-2.3); NT Pro B Type Natriuretic Pept 3260 pg/mL (0-125); Osmolality Calculated 306 mOsm/kg (285-295); Phosphorus 4.5 mg/dL (2.5-4.5); Potassium 4.7 mmol/L (3.5-5.1); Sodium 135 mmol/L (136-145); Total Bilirubin 0.3 mg/dL (0.15-1.2); Total Protein 6.6 g/dL (6.6-8.7)
[2021-07-09 07:57] LABS: Glucose Point of Care 259 mg/dL (70-110)
[2021-07-09 07:58] LABS: Glucose Point of Care 211 mg/dL (70-110)
[2021-07-09] MEDS: potassium chloride ER 20 mEq Tablet PO (09:42)
[2021-07-09] MEDS: apixaban 5 mg Tablet PO (09:42)
[2021-07-09] MEDS: pantoprazole DR 40 mg Tablet PO (09:42)
[2021-07-09] MEDS: spironolactone 25 mg Tablet 50 MG PO (09:42)
[2021-07-09] MEDS: hydroCHLOROthiazide 25 mg Tablet PO (09:42)
[2021-07-09] MEDS: multivitamin therapeutic Tablet 1 TAB PO (09:42)
[2021-07-09] MEDS: thiamine 100 mg Tablet PO (09:43)
[2021-07-09] MEDS: insulin glargine 100 units/1 mL 5 UNIT SUBCUT (09:43)
[2021-07-09] MEDS: hyDRALAzine 25 mg Tablet PO ×2 (09:43→14:04)
[2021-07-09] MEDS: minoxidil 10 mg Tablet 2.5 MG PO (09:43)
[2021-07-09] MEDS: isosorbide mononitrate ER 60 mg Tablet 120 MG PO (09:43)
[2021-07-09] MEDS: amlodipine 10 mg Tablet 5 MG PO (09:43)
[2021-07-09] MEDS: folic acid 1 mg Tablet PO (09:43)
[2021-07-09] MEDS: bumetanide 0.25 mg/mL SDV 4 mL 1 MG IVP (09:44)
[2021-07-09] MEDS: nicotine 21 mg Patch 1 PATCH TRANSDERMA (09:44)
[2021-07-09] MEDS: insulin lispro 100 unit/1 mL SUBCUT ×2 (09:44→13:00)
[2021-07-09] MEDS: chlorhexidine gluconate 4% Btl 118 mL 1 APPLIC TOPICAL (09:45)
[2021-07-09] MEDS: vancomycin 1,500 MG/300 ML PIGGYBACK 200 MG IV (10:24)
[2021-07-09] MEDS: cefTRIAXone 1,000 MG in sodium chloride 0.9% (plus) 50 ML 100 MG IV (10:26)
--- NOTE | 2021-07-09 13:44 | PM.PN ---
Subjective Subjective: He is doing slightly better. With diarrhea but denies abdominal pain. No nausea or vomiting. No chills or fever. Vitals/I&O/Wt Last Vital Signs Temp 97.4 F L 07/09/21 11:13 Pulse 103 H 07/09/21 11:13 Resp 20 H 07/09/21 11:13 BP 124/64 07/09/21 11:13 Pulse Ox 94 07/09/21 11:13 07/08/21 07/09/21 07/09/21 22:59 06:59 14:59 Intake Total 690 / 690 350 / 350 Output Total 750 / 1250 Balance -60 / -560 350 / 350 Weight last 48 hrs Weight 141.249 kg Weight 141.249 kg Physical Exam Const: COMMON NORMALS: alert GENERAL APPEARANCE: cooperative ORIENTATION/CONSCIOUSNESS: Yes awake HENMT: COMMON NORMALS: normocephalic, EAC's normal, Normal external nose present and moist oral mucous membranes HEAD & SCALP: normocephalic NOSE: Normal external nose present EXTERNAL AUDITORY CANAL: EAC's normal Neck/C-Spine: COMMON NORMALS: no meningeal signs Chest: CHEST: Yes Symmetrical chest wall rise Resp: COMMON NORMALS: clear to auscultation bilaterally AUSCULTATION: clear to auscultation bilaterally Cardio: COMMON NORMALS: regular rate, regular rhythm and No murmurs present (Cardio) RATE: regular rate RHYTHM: regular rhythm GI: COMMON NORMALS: Normal to inspection, nondistended, normoactive bowel sounds present, Soft to palpation and non-tender PALPATION: Yes Soft to palpation Extremity: GENERAL: Yes edema (1-2+ BL LE) Neuro: COMMON NORMALS: moves all extremities SENSORIUM/ORIENTATION: Yes alert MENINGEAL SIGNS: Yes no meningeal signs Psych: COMMON NORMALS: mental status grossly normal Skin: COMMON NORMALS: no wounds RASHES: no rashes Urinary Catheter Management: [place]: Cath Placed During This Visit: yes, but has since been removed by the nurse Reason for Continuing Indwelling Catheter: Decision to DC Catheter Urinary Catheter Date of Insertion: 06/25/21 Urinary Catheter Time of Insertion: 17:28 Date Urinary Catheter Removed: 07/02/21 Time Urinary Catheter Discontinued: 07:45 Data : 07/09/21 05:50 07/09/21 05:50 Micro: Microbiology 04/11/22 Unknown C.difficile Toxin B Gene (PCR) - Final Stool A&P Assessment and plan (1) C. difficile colitis: Discussed with him. P.o. vancomycin. DC ceftriaxone, IV Vanco. Status: Acute (2) Aspiration pneumonia: Doing well on room air. DC ceftriaxone, IV Vanco. Status: Acute (3) Acute kidney injury: Creatinine slightly better, down to 1.9. Continue to hold diuretics. Does not currently appear decompensated. Status: Acute (4) Bradycardia: S/p PPM Status: Acute (5) Hyperkalemia: Resolved. Potassium supplementation at home. Spironolactone on hold. Status: Acute (6) Accelerated hypertension: Continue isosorbide, metoprolol, hydralazine, amlodipine Status: Acute (7) Congestive heart failure: Acute on chronic preserved ejection fraction last echocardiogram Diuretics on hold. Does have 1-2+ peripheral edema, but some of it may also be due to other factors including amlodipine. May improve when he is able to restart some ARB. For now diuretics are held. Reassess renal function. Mild improvement today down to 1.9. Status: Chronic Qualifiers: Heart failure chronicity: acute on chronic Heart failure type: diastolic Qualified Code(s): I50.33 - Acute on chronic diastolic (congestive) heart failure (8) Abnormal nuclear stress test: Per Dr. Segura clinical notes although upon review it looks like abnormalities could also be consistent with attenuation defects. This is from stress testing done in September of last year. Status: Acute (9) Coronary artery disease: Has not required previous intervention. Records indicate last arteriogram showed 55% narrowing and unclear vessel. Describes anginal type symptoms lately although this could be related to demand ischemia from impact of bradycardia. Continue medical management. Status: Chronic (10) Atrial fibrillation: Presently with slow ventricular response, chronic PPM dependent. 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 Diabetes mellitus complication status: with neurologic complications Diabetes mellitus complication detail: with polyneuropathy Qualified Code(s): E11.42 - Type 2 diabetes mellitus with diabetic polyneuropathy; Z79.4 - [facility] (current) use of insulin (13) BPH NOS w/o ur obs/LUTS: Chronically on finasteride and Flomax, describes progressive lower urinary symptoms suggestive of potential bladder outlet obstruction contributing to acute kidney injury Status: Chronic (14) Calculus of proximal ureter: Has been present for some time, nonobstructing or at least in the same location last time it was evaluated, patient does not describe classic symptoms of kidney stones but at risk of having an obstructive process Status: Acute (15) Hyperlipidemia: Lipid panel checked June 17, 2021 at the [facility] showed total cholesterol of 206, triglycerides of 189, HDL of 43.9 and calculated LDL of 124.3 with an HDL to total cholesterol ratio of 21.3% Chronically on statin Status: Chronic Qualifiers: Hyperlipidemia type: unspecified Qualified Code(s): E78.5 - Hyperlipidemia, unspecified (16) Obstructive sleep apnea: Does not wear CPAP by choice Status: Chronic (17) BMI 40.0-44.9, adult: Status: Acute (18) Nicotine dependence, chewing tobacco, with other nicotine-induced disorders: Status: Chronic (19) Altered mental status: Resolved Status: Acute (20) Bilateral lower leg cellulitis: Improved. DC ceftriaxone, vancomycin. Status: Acute (21) Physical deconditioning: Physical deconditioning and functional decline. She is requiring assistance with transfers with gait belt. Previously ambulating with a walker. Lives alone. Was going to leave AMA today, but for now is going to stay, continue work with therapy, continue arrangements for SNF. Status: Acute Plan Acute hyponatremia, resolved Acute respiratory failure, hypoxia, resolved Type II diabetes mellitus, low-dose sliding scale, add Lantus History of CVA, monitor History of CAD Peripheral arterial disease, bilateral extremities are much more pink, flushed, DP PT pulses palpable, bilateral extremities improving coloration, needs to follow-up with cardiothoracic surgery as outpatient Area of bruises, right great toe, left second and third digit, black discoloration, likely from minimal trauma Attestations Medical Necessity Statement*: Continue admission for treatment of C. difficile colitis, de-escalation of antibiotics following cellulitis, pneumonia and disposition planning and arrangements. 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 difficile colitis A04.72
--- NOTE | 2021-07-09 19:10 | PC.NURSE ---
PT BECAME AGITATED THIS EVENING FOR NO APPARENT REASON. PT SAID HE WANTED TO LEAVE AMA. THIS NURSE TRIED TALKING TO THE PT AND EXPLAINING THE IMPORTANCE OF HIM STAYING SO THAT HE CAN GO TO A FACILITY TOMORROW. PT SAID HE COULD CHECK HIMSELF INTO THE FACILITY HIMSELF AND THAT HE DOESN'T NEED OUR HELP ANYMORE; HE HAS HAD ALL HE CAN TAKE. THIS NURSE THEN EXPLAINED THE RISKS OF HIM LEAVING AND THAT PT STILL DID NOT WANT TO COOPERATE. THIS NURSE NOTIFIED THE DOCTOR AND THE DOCTOR CAME AND ATTEMPTED TALKING TO THE PT BUT THE PT STILL WAS NOT WANTING TO COOPERATE. THE DOCTOR CONTINUED TO EXPLAIN THE RISKS OF LEAVING THE HOSPITAL BUT THE PT DID NOT WANT TO HEAR IT. THIS NURSE REMOVED THE PTS IVS. CATHETER TIPS WERE INTACT. AMA PAPERWORK WAS OBTAINED AND PT LEFT THE FACILITY WITH HIS FAMILY.
[2021-07-09 21:35] LABS: Glucose Point of Care 202 mg/dL (70-110)
[2021-07-09 21:35] LABS: Glucose Point of Care 328 mg/dL (70-110)
--- NOTE | 2021-07-09 21:49 | P.DS_ITS ---
Discharge Providers Date of Admission: 06/25/21 19:09 Date of Discharge: July 09, 2021 Attending Provider at Admission: Nazanin Tovar MD Attending Provider at Discharge: Cali Wills Primary Care Provider: Jessica Bui MD Diagnoses at Discharge Discharge Diagnosis (1) C. difficile colitis: Status: Acute (2) Aspiration pneumonia: Status: Acute (3) Acute kidney injury: Status: Acute (4) Bradycardia: Status: Acute (5) Hyperkalemia: Status: Acute (6) Accelerated hypertension: Status: Acute (7) Congestive heart failure: Status: Chronic Qualifiers: Heart failure chronicity: acute on chronic Heart failure type: di astolic Qualified Code(s): I50.33 - Acute on chronic diastolic (congestive) heart failure (8) Abnormal nuclear stress test: Status: Acute (9) Coronary artery disease: Status: Chronic Permanent problem details: Evaluated in [place], patient reports 55% narrowing unknown vessel no stent or angioplasty done (10) Atrial fibrillation: Status: Chronic Qualifiers: Atrial fibrillation type: longstanding persistent Qualified Code(s): I48.11 - Longstanding persistent atrial fibrillation (11) Chronic anticoagulation: Status: Chronic Permanent problem details: eliquis (12) Diabetes mellitus, type II: Status: Chronic Qualifiers: Diabetes mellitus intermission coordinator insulin use: with retirement use Diabetes mellitus complication status: with neurologic complications Diabetes mellitus complication detail: with polyneuropathy Qualified Code(s): E11.42 - Type 2 diabetes mellitus with diabetic polyneuropathy; Z79.4 - USP (current) use of insulin (13) BPH NOS w/o ur obs/LUTS: Status: Chronic (14) Calculus of proximal ureter: Status: Acute (15) Hyperlipidemia: Status: Chronic Qualifiers: Hyperlipidemia type: unspecified Qualified Code(s): E78.5 - Hyperlipidemia, unspecified (16) Obstructive sleep apnea: Status: Chronic Permanent problem details: not on treatment by choice (17) BMI 40.0-44.9, adult: Status: Acute (18) Nicotine dependence, chewing tobacco, with other nicotine-induced disorder s: Status: Chronic (19) Altered mental status: Status: Acute (20) Bilateral lower leg cellulitis: Status: Acute (21) Physical deconditioning: Status: Acute Reason for Visit Reason for Visit: n/v; weakness Hospital Course Hospital Course 71-year-old gentleman with prolonged hospitalization who left today AGAINST MEDICAL ADVICE was initially admitted and treated for AFib w slow ventricular response with symptomatic bradycardia, with altered mental status, severe bradycardia into the low 20s, required intubation, mechanical ventilation, placement of temporary transvenous pacemaker, subsequently PPM. With slow resolution of encephalopathy was continued on Zyprexa, Precedex, gradually w eaned off the drip. With hypertensive emergency subsequently requiring Cardene drip, nitro drip, started on a number of oral medications to assist in control. Gradually weaned off all drips. Mentation eventually improved. Completed antibiotic course for COPD exacerbation initially with Augmentin and doxycycline subsequently ceftriaxone, and then with addition of vancomycin for lower extremity cellulitis bilaterally. Received diuretics for suspected diastolic congestive heart failure exacerbation. Is gradually improved, with some residual lower extremity edema, which he states is chronic. Renal function noted worsening, with DANITZA on CKD creatinine up to 2.1, additional diuretics were withheld with improvement in creatinine to 1.9. Without worsening or decompensation of CHF. Lower extremity cellulitis resolved. He also reported persistent diarrhea which when tested returned positive for C. difficile. He was started on vancomycin p.o. With intended 10-day course. He was very deconditioned, with difficulties getting up, transferring, not in condition to return home. Arrangements were being made for placement to rehabilitation, however, he initially was wanting to leave AGAINST MEDICAL ADVICE but agreed to stay, but today finally decided he will not wait any longer that he was thankful for the care but was going to leave today regardless. He understood that he is at risk of disability or given premature discharge. He did not want to stay further until tomorrow even though he was going to be accepted to SNF to complete direct transfer arrangements. His nephew Souleymane and his spouse came back to pick him up. He stated and they confirmed that they would drive him over to SNF tomorrow as he is instructed not to drive. Encouraged him to stay, he declined that there was anything we could do differently, verbalized he understood to seek medical attention in case of any worsening of his condition. He verbalized he understood that he needed to continue his medications and specifically to make sure he is receiving vancomycin without interruption which due to potential delays at the [place] pharmacy was sent to [facility] as per his request. In case he does not get into the facility he is asked to either return to the hospital or at least pursue the appointment with his primary provider which is scheduled for him for day after tomorrow. Additional instructions given as below, though as explained to him may be incomplete due to the premature and time-limited discharge. He is asked to follow-up with cardiology regarding pacemaker. He will need continued follow-up regarding blood pressure control and diabetes control. He is asked to follow-up also regarding incidentally noted nonspecific right parietal skull lesion seen on CT increased compared to 2017. As well as regarding peripheral artery disease noted on duplex of bilateral lower extremities. Resting TIKI of 0.9. Please refer to full hospitalization documentation and diagnostic studies for details. Physical Exam Narrative: During second visit sitting up in chair. Fully dressed in street clothes. Family at bedside. Const: COMMON NORMALS: alert GENERAL APPEARANCE: cooperative ORIENTATION/CONSCIOUSNESS: Yes awake HENMT: COMMON NORMALS: normocephalic, EAC's normal, Normal external nose present and moist oral mucous membranes HEAD & SCALP: normocephalic NOSE: Normal external nose present EXTERNAL AUDITORY CANAL: EAC's normal Neck/C-Spine: COMMON NORMALS: no meningeal signs Chest: CHEST: Yes Symmetrical chest wall rise Resp: COMMON NORMALS: clear to auscultation bilaterally AUSCULTATION: clear to auscultation bilaterally Cardio: COMMON NORMALS: regular rate, regular rhythm and No murmurs present (Cardio) RATE: regular rate RHYTHM: regular rhythm GI: COMMON NORMALS: Normal to inspection, nondistended, normoactive bowel sounds present, Soft to palpation and non-tender PALPATION: Yes Soft to palpation Extremity: GENERAL: Yes edema (1-2+ BL LE) OTHER: No erythema resolution of erythema Neuro: COMMON NORMALS: moves all extremities SENSORIUM/ORIENTATION: Yes alert MENINGEAL SIGNS: Yes no meningeal signs Psych: COMMON NORMALS: mental status grossly normal Skin: COMMON NORMALS: no wounds RASHES: no rashes Urinary Catheter Management: Santo: Cath Placed During This Visit: yes, but has since been removed by the nurse Reason for Continuing Indwelling Catheter: Decision to DC Catheter Urinary Catheter Date of Insertion: 06/25/21 Urinary Catheter Time of Insertion: 17:28 Date Urinary Catheter Removed: 07/02/21 Time Urinary Catheter Discontinued: 07:45 Discharge Data Studies Completed and Pending Completed Studies During Hospitalization Category Date Time Status CT head wo con* [id number] Routine Cat Scan 06/29/21 07:52 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 echo complete* [id number] Routine Ultrasound 06/27/21 06:00 Completed US renal BI* [id number] Urgent Ultrasound 06/25/21 17:57 Completed Radiology Impressions Renal Ultrasound 06/25/21 17:57 IMPRESSION: 1. Negative for hydronephrosis or renal calculus. 2. Two left kidney cysts measuring up to 19 mm. C-Arm Fluoroscopy 06/27/21 18:02 IMPRESSION: Intraoperative imaging during cardiac pacer placement. Head CT 06/29/21 07:52 IMPRESSION: 1. No evidence of acute intracranial abnormality. No evidence of acute infarction, hemorrhage, or mass. 2. Atrophy and microvascular disease. 3. Enlarging nonspecific right parietal skull lesion compared to 2017 examination. ADDENDUM: 06/29/21 1036 Skull: There is increased size of the lucent lesion in the right parietal skull currently measuring 11 mm on axial images and previously measuring 6 mm. This is nonspecific. No erosion of inner or outer table of skull. Chest X-Ray 06/29/21 12:21 IMPRESSION: 1. No acute findings. 2. Cardiac device left anterior chest good position. KUB X-Ray 06/29/21 12:21 IMPRESSION: No acute findings. Laboratory Results WBC 18.8 10^3/uL (4.0-10.0) H 07/09/21 05:50 RBC 4.03 10^6/uL (4.1-5.3) L 07/09/21 05:50 Hgb 11.5 g/dL (11.7-16.6) L 07/09/21 05:50 Hct 34.2 % (42.0-52.0) L 07/09/21 05:50 MCV 84.9 fl (80-94) 07/09/21 05:50 MCH 28.5 pg (28.0-34.0) 07/09/21 05:50 MCHC 33.6 g/dL (30.0-36.0) 07/09/21 05:50 RDW 12.6 % (12.1-15.1) 07/09/21 05:50 Plt Count 456 10^3/cmm (130-400) H 07/09/21 05:50 MPV 10.3 fL (7.4-10.4) 07/09/21 05:50 Neut % (Auto) 72.2 % 07/09/21 05:50 Lymph % (Auto) 15.7 % 07/09/21 05:50 Swain % (Auto) 6.2 % 07/09/21 05:50 Eos % (Auto) 1.3 % 07/09/21 05:50 Baso % (Auto) 0.7 % 07/09/21 05:50 Neut # (Auto) 13.56 10^3/uL (1.8-7.7) H 07/09/21 05:50 Lymph # (Auto) 3.0 10^3/uL (0.8-4.8) 07/09/21 05:50 Swain # (Auto) 1.2 10^3/uL (0.2-0.9) H 07/09/21 05:50 Eos # (Auto) 0.3 10^3/uL (0.0-0.8) 07/09/21 05:50 Baso # (Auto) 0.1 10^3/uL (0.0-0.1) 07/09/21 05:50 Nucleated RBC % (auto) 0 % 07/09/21 05:50 Nucleated RBCs # 0.0 /100WBC 07/09/21 05:50 ESR 7 mm/hr (0-10) 06/26/21 03:35 PT 17.40 SECONDS (12.1-14.9) H 06/29/21 04:26 INR 1.38 (0.8-1.2) H 06/29/21 04:26 APTT 39.4 SECONDS (23.9-36.7) H 06/27/21 22:03 Specimen Type Arterial 06/29/21 11:09 Sample Site Radial, right 06/29/21 11:09 ABG pH 7.52 (7.35-7.45) H 06/29/21 11:09 ABG pCO2 31.5 mmHg (35-45) L 06/29/21 11:09 ABG pO2 79.4 mmHg (80.0-100.0) L 06/29/21 11:09 ABG HCO3 25.6 mmol/L (22-26) 06/29/21 11:09 ABG O2 Saturation 98.7 06/26/21 13:12 ABG Base Excess 3.2 mmol/L (-2.0-2.0) H 06/29/21 11:09 Judd Test Pos 06/29/21 11:09 A-a O2 Gradient 51.5 mmHg (5-10) H 06/26/21 13:12 Hematocrit 38.3 % (42-52) L 06/29/21 11:09 Hgb O2 Saturation 96.5 % (95-100) 06/26/21 13:12 Carboxyhemoglobin 1.2 %THgb (0.4-20.1) 06/26/21 13:12 Methemoglobin 1.0 % (0.4-1.5) 06/26/21 13:12 Total Hemoglobin 11.9 g/dL (14-18) L 06/26/21 13:12 Sodium 147.0 mmol/L (131-143) H 06/26/21 13:12 Potassium 4.2 mmol/L (3.5-5.0) 06/26/21 13:12 Glucose 165.0 mg/dL (70-115) H 06/26/21 13:12 Ionized Calcium 1.1 mmol/L (1.1-1.4) 06/26/21 13:12 O2 Delivery Device Bipap 06/29/21 11:09 FiO2 30.0 % 06/29/21 11:09 Tidal Volume 0.50 06/28/21 04:36 PEEP 6.0 cmH20 06/29/21 11:09 Film Waxer ID Rieri 06/29/21 11:09 Sodium 135 mmol/L (136-145) L 07/09/21 05:50 Potassium 4.7 mmol/L (3.5-5.1) 07/09/21 05:50 Chloride 102 mmol/L (98-107) 07/09/21 05:50 Carbon Dioxide 17 mmol/L (22-29) L 07/09/21 05:50 Anion Gap 20.7 (5-19) H 07/09/21 05:50 BUN 65 mg/dL (8-23) H 07/09/21 05:50 Creatinine 1.9 mg/dL (0.7-1.2) H 07/09/21 05:50 GFR Calculation Not Reportable 07/09/21 05:50 Glucose 236 mg/dL (65-115) H 07/09/21 05:50 POC Glucose 202 mg/dL (70-110) H 07/09/21 16:08 Calculated Osmolality 306 mOsm/kg (285-295) H 07/09/21 05:50 Uric Acid 13.0 mg/dL (3.4-7.0) H 06/27/21 10:00 Calcium 9.3 mg/dL (8.5-10.5) 07/09/21 05:50 Phosphorus 4.5 mg/dL (2.5-4.5) 07/09/21 05:50 Magnesium 2.4 mg/dL (1.7-2.3) H 07/09/21 05:50 Total Bilirubin 0.3 mg/dL (0.15-1.2) 07/09/21 05:50 AST 18 U/L (0-40) 07/09/21 05:50 ALT 21 U/L (0-41) 07/09/21 05:50 Alkaline Phosphatase 95 IU/L (40-130) 07/09/21 05:50 Ammonia 20 umol/L (16-60) 06/29/21 17:43 Creatine Kinase 260 U/L (39-308) 07/04/21 08:00 Troponin T Baseline 66 ng/L (0-15) H 06/25/21 13:20 Troponin T 120 Minute 71.09 ng/L (0-15) H 06/25/21 14:20 Delta Troponin T 5.09 ABS# (0-10) 06/25/21 14:20 Troponin T Hi Sens 6Hr 70.78 ng/L (0-15) H 06/25/21 20:37 Troponin T Hi Sens 6Hr Delta 4.78 ng/L (0-12) 06/25/21 20:37 C-Reactive Protein 45.2 mg/L (0.0-4.9) H 07/09/21 05:50 NT-Pro-B Natriuret Pep 3260 pg/mL (0-125) H 07/09/21 05:50 Total Protein 6.6 g/dL (6.6-8.7) 07/09/21 05:50 Albumin 3.4 g/dL (3.5-5.2) L 07/09/21 05:50 Globulin 3.2 g/dL (1.3-4.6) 07/09/21 05:50 Renin Activity 2.80 ng/mL/h (0.25-5.82) 07/01/21 10:00 Aldosterone 5 ng/dL 07/01/21 10:00 25-OH Vitamin D Total 31 ng/mL (30-100) 06/28/21 04:35 Procalcitonin 0.32 ng/mL (0-0.5) 07/06/21 04:03 TSH 2.20 uIU/mL (0.27-4.20) 06/25/21 13:20 Urine Color Yellow (Yellow) 06/25/21 14:36 Urine Appearance Clear (CLEAR) 06/25/21 14:36 Urine pH 5 (5-7) 06/25/21 14:36 Ur Specific [place] 1.015 (1.005-1.030) 06/25/21 14:36 Urine Protein Neg (Negative) 06/25/21 14:36 Urine Glucose (UA) Norm (Normal) 06/25/21 14:36 Urine Ketones Negative (Negative) 06/25/21 14:36 Urine Blood Neg (Negative) 06/25/21 14:36 Urine Nitrate Negative (Negative) 06/25/21 14:36 Urine Bilirubin Neg (Negative) 06/25/21 14:36 Urine Urobilinogen Neg mg/dL (Negative) 06/25/21 14:36 Ur Leukocyte Esterase Negative (Negative) 06/25/21 14:36 Ur Random Sodium 60 mmol/L 06/27/21 09:30 Ur Random Potassium 41 mmol/L 06/27/21 09:30 Ur Random Chloride 53 mmol/L 06/27/21 09:30 Vancomycin Trough 18.7 ug/mL (10-15) H 07/08/21 14:58 Complement C3 125 mg/dL (90-180) 06/27/21 10:00 Complement C4 23 mg/dL (10-40) 06/27/21 10:00 Hepatitis C Antibody Non-reactive (Nonreactive) 06/27/21 10:00 Vitals Last Vital Signs Temp 97.7 F 07/09/21 19:20 Pulse 83 07/09/21 19:20 Resp 17 07/09/21 19:20 BP 181/80 07/09/21 19:20 Pulse Ox 95 07/09/21 19:20 Discharge Plan Discharge Patient Disposition: Left Against Medical Advice Condition: Fair Prescriptions: New hydralazine 25 mg Tablet 50 mg PO TID 30 Days Qty: 180 0RF aspirin 81 mg Tablet,Delayed Release (Dr/Ec) 81 mg PO DAILY 30 Days Qty: 30 0RF spironolactone 25 mg Tablet 50 mg PO BID 30 Days Qty: 120 0RF isosorbide mononitrate 60 mg Tablet Extended Release 24 Hr 120 mg PO DAILY 30 Days Qty: 60 0RF amlodipine 10 mg Tablet 10 mg PO DAILY 30 Days Qty: 30 0RF pantoprazole 40 mg Tablet,Delayed Release (Dr/Ec) 40 mg PO DAILY 30 Days Qty: 30 0RF metoprolol tartrate 50 mg Tablet 50 mg PO Q12H 30 Days Qty: 60 0RF nicotine 21 mg/24 hr Patch 24 Hour 1 patch transdermal DAILY 28 Days Qty: 28 0RF minoxidil 10 mg Tablet 5 mg PO DAILY 30 Days Qty: 30 0RF folic acid 1 mg Tablet 1 mg PO DAILY 30 Days Qty: 30 0RF clonidine 0.3 mg/24 hr Patch Weekly 1 patch transdermal Q7D 30 Days Qty: 4 0RF hydrochlorothiazide 25 mg Tablet 25 mg PO DAILY 30 Days Qty: 30 0RF amoxicillin-pot clavulanate 875-125 mg Tablet 1 tab PO BID 3 Days Qty: 6 0RF Vitamin B-1 (mononitrate) 100 mg Tablet 100 mg PO DAILY 30 Days Qty: 30 0RF Thera 400 mcg Tablet 1 tab PO DAILY 30 Days 0RF Novolog Flexpen U-100 Insulin 100 unit/mL (3 mL) insulin pen See Rx Instructions .ROUTE .COMPLEX Qty: 15 0RF Rx Instructions: Inject, subcu, 3 times daily, after meals, based on sliding scale provided Vancocin 125 mg capsule 125 mg PO QID 9 Days Qty: 37 0RF Continued pentoxifylline 400 mg Tablet Extended Release 400 mg PO BID 0RF Lyrica 150 mg Capsule 150 mg PO BID 0RF oxycodone 10 mg Tablet 5 - 10 mg PO TID PRN (Reason: Pain) 0RF Aldara 5 % cream in packet See Rx Instructions .ROUTE .COMPLEX 0RF Rx Instructions: apply topically to affected area on ear Thursday through Thursday only for 6 weeks multivitamin Tablet 1 tab PO DAILY 30 Days Qty: 30 0RF tamsulosin 0.4 mg capsule 0.4 mg PO BEDTIME 30 Days Qty: 30 0RF finasteride 5 mg tablet 5 mg PO DAILY 30 Days Qty: 30 0RF rosuvastatin 10 mg Tablet 10 mg PO QPM 30 Days Qty: 30 0RF Vitamin D3 2,000 unit Tablet 2,000 unit PO QAM 30 Days Qty: 30 0RF Eliquis 5 mg tablet 5 mg PO BID 30 Days Qty: 60 0RF Label Comments: [place] held for 3 days due to hematuria Changed insulin glargine 100 unit/mL (3 mL) Insulin Pen 5 unit SUBCUT BEDTIME Qty: 0 0RF potassium chloride 20 mEq tablet extended release 40 meq PO DAILY Qty: 120 3RF Lasix 80 mg Tablet 40 mg PO QAM PRN (Reason: Edema) 30 Days Qty: 30 0RF Discontinued losartan 100 mg tablet 100 mg PO QAM 0RF amlodipine 5 mg Tablet 5 mg PO DAILY 0RF spironolactone 50 mg Tablet 50 mg PO DAILY 0RF isosorbide mononitrate 120 mg tablet extended release 24 hr 120 mg PO QAM 0RF Ozempic 0.25 mg or 0.5 mg(2 mg/1.5 mL) Pen Injector 0.5 mg SUBCUT Q7D 0RF Rx Instructions: ON THURSDAY Discharge Orders: Discharge Order (Routine); Ordered 07/09/21 Ordered By: Cali Wills Referrals: Jessica Bui MD [Primary Care Provider] - 07/11/21 Dennys Fernandez MD [Physician] - 2 weeks Discharge Diet: Cardiac Discharge Activity: As per PT/OT instructions Patient Instructions: Pacemaker (DC), C. Diff (Clostridioides Difficile) Infection (GEN), Against Medical Advice (DC), Opioid Safety, Post Pacemaker - Efra Activity Restrictions/Additional Instructions: Please note that you are leaving the hospital prematurely risking severe disability or due to partially treated conditions, and that your discharge is likely incomplete due to it having to be done before the planned discharge date. 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 difficile colitis infectious diarrhea. Maintain strict fall precautions. Make sure to reposition frequently to prevent pressure ulcers. Please measure your blood pressure at least 3 times daily, write down values to bring to your appointment continue optimize blood pressure control. Make sure to follow-up with cardiology with regards to the pacemaker. Maintain pacemaker precautions. Not avoid in left arm above shoulder height until cleared to do so by the cardiology team. Please have your primary doctor follow-up your renal function after acute kidney injury. Please discuss with your primary doctor regarding noted enlargement nonspecific right parietal skull lesion on CT of the head compared to 2017. This may need additional follow-up on outpatient side. Please discuss with your primary doctor regarding peripheral artery disease noted on imaging in the hospital. Please follow-up tomorrow with [facility] as discussed to make sure that they are okay to take you for rehabilitation. Please call back case management here in the hospital in case you are having any difficulty. In case you run into any trouble, or are feeling worse, return to ER. Please follow-up with a doctor as soon as possible if you do not end up going to the rehab facility, please keep the appointment on with your primary provider. You are encouraged to stay and continue admission as you may be risking your health or life. -Inject insulin, subcu, 3 times daily, before meals, based on sliding scale provided -If blood sugar greater than 500 call primary care -If blood sugar less than 60, drink or juice or eat a hard candy go to emergency room -Record blood sugar logs bring to office visit Insulin sliding fingerstick? Insulin 141-180?2 units/sq 181-220?4 units/sq 221-260?6 units/sq 261-300?8 units/sq 301-350 10 units/sq 351-400 12 units/sq > 400? 14 units/sq Discharge Attestations Time Spent in Discharge Care*: greater than 30 min Status at Discharge: Cognitive status at discharge: cognitively intact , Behavioral status at discharge: cooperative , Quality Metrics Clinical Quality Measures [ No reported AMI, CVA or VTE this stay] Coding Level of Care Code Acute Chg FW DC note Diagnoses C. difficile colitis A04.72 Aspiration pneumonia J69.0 Acute kidney injury N17.9 Bradycardia R00.1 Hyperkalemia E87.5 Accelerated hypertension I10 Congestive heart failure I50.33 Heart failure chronicity: acute on chronic Heart failure type: diastolic Abnormal nuclear stress test R94.39 Coronary artery disease I25.10 Atrial fibrillation I48.11 Atrial fibrillation type: longstanding persistent Chronic anticoagulation Z79.01 Diabetes mellitus, type II E11.42; Z79.4 Diabetes mellitus intermission coordinator insulin use: with intermission coordinator use Diabetes mellitus complication status: with neurologic complications Diabetes mellitus complication detail: with polyneuropathy BPH NOS w/o ur obs/LUTS N40.0 Calculus of proximal ureter N20.1 Hyperlipidemia E78.5 Hyperlipidemia type: unspecified Obstructive sleep apnea G47.33 BMI 40.0-44.9, adult Z68.41 Nicotine dependence, chewing tobacco, with other nicotine-induced disorders F17.228 Altered mental status R41.82 Bilateral lower leg cellulitis L03.116; L03.115 Physical deconditioning R53.81
== END 2021-07-09 18:30 | disposition left against medical advice (07) | DRG 242 ==
LOC: ER 16:44 → ICU 18:05 → MEDSURG 07-04 14:42
PROVIDERS: Family Medicine; Internal Medicine Cardiovascular Disease; Internal Medicine Nephrology; Thoracic Surgery (Cardiothoracic Vascular Surgery); Admitting Provider Hospitalist; Emergency Provider Family Medicine; PCP Family Medicine; Visit Provider Internal Medicine
PROC: 5A1223Z Performance of Cardiac Pacing, Continuous (ICD-10-PCS; principal; 2021-06-26 11:00)
PROC: 0JH604Z Insertion of Pacemaker, Single Chamber into Chest Subcutaneous Tissue and Fascia, Open Approach (ICD-10-PCS; principal; 2021-06-27 15:35)
DX: R00.1 Bradycardia, unspecified (principal); I50.33 Acute on chronic diastolic (congestive) heart failure; J69.0 Pneumonitis due to inhalation of food and vomit; J96.01 Acute respiratory failure with hypoxia; I13.0 Hypertensive heart and chronic kidney disease with heart failure and stage 1 through stage 4 chronic kidney disease, or unspecified chronic kidney disease; I69.951 Hemiplegia and hemiparesis following unspecified cerebrovascular disease affecting right dominant side; N13.8 Other obstructive and reflux uropathy; Z68.41 Body mass index [BMI] 40.0-44.9, adult; A04.72 Enterocolitis due to Clostridium difficile, not specified as recurrent; L03.116 Cellulitis of left lower limb; L03.115 Cellulitis of right lower limb; I67.4 Hypertensive encephalopathy; M62.82 Rhabdomyolysis; N20.1 Calculus of ureter; N17.9 Acute kidney failure, unspecified; I44.2 Atrioventricular block, complete; E11.22 Type 2 diabetes mellitus with diabetic chronic kidney disease; N18.30 Chronic kidney disease, stage 3 unspecified; I48.11 Longstanding persistent atrial fibrillation; F17.220 Nicotine dependence, chewing tobacco, uncomplicated; F10.21 Alcohol dependence, in remission; E87.6 Hypokalemia; I25.10 Atherosclerotic heart disease of native coronary artery without angina pectoris; E11.42 Type 2 diabetes mellitus with diabetic polyneuropathy; E11.51 Type 2 diabetes mellitus with diabetic peripheral angiopathy without gangrene; N40.1 Benign prostatic hyperplasia with lower urinary tract symptoms; E78.5 Hyperlipidemia, unspecified; E66.9 Obesity, unspecified; G47.33 Obstructive sleep apnea (adult) (pediatric); I16.0 Hypertensive urgency; Z79.01 Long term (current) use of anticoagulants; Z79.891 Long term (current) use of opiate analgesic; Z53.29 Procedure and treatment not carried out because of patient's decision for other reasons; Z87.442 Personal history of urinary calculi
CPT/HCPCS: 33210; 36415; 36416; 36600; 51702; 70450; 71045; 74018; 76000; 76770; 77001; 80048; 80051; 80053; 80202; 81003; 82088; 82140; 82306; 82330; 82436; 82550; 82803; 82805; 82962; 83735; 83880; 84100; 84132; 84133; 84145; 84244; 84300; 84443; 84484; 84550; 85025; 85610; 85651; 85730; 86140; 86160; 86803; 87040; 87086; 87493; 93005; 93306; 93925; 94002; 94003; 94660; 94799; 96372; 96374; 96375; 97110; 97162; 97167; 97530; 97535; 99285; A4570; C1769; C1779; C1786; C1894; C1898; C9113; J0360; J0461; J0690; J0696; J1265; J1630; J1644; J1815 ×2; J1940; J2060; J2250; J2370; J2405; J2543; J2704; J3010; J3370; J3480; J3490; J7030; J7050; Q3014

== ENCOUNTER 2021-07-19 15:30 | Inpatient (IN) | payer OTHER, MEDICARE, SELFPAY ==
--- NOTE | 2021-07-19 15:52 | ED_ITS ---
Documented by User: Roberto Keys DO 07/23/21 07:11 HPI - Fall General: Chief Complaint: Fall Stated Complaint: FREQUENT FALLS Time Seen by Provider: 07/19/21 15:48 Source: patient Mode of arrival: EMS History of Present Illness: 71 old male presents emergency room via EMS he had multiple falls at home family called EMS because he is not really able to care for himself he has significant abrasions on his feet and significant swelling. He has gotten a point where he cannot really assist even with transfers. He is on anticoagulation.He has significant rash on his lower extremities as well. He denies any fever sweats chills denies chest pain in talking to the patient he gives impression there is really nothing wrong any and does not understand why he is here. Majority the time he uses a wheelchair to get around at home that is even become difficult is not able to transfer appropriately. Recent hospitalization for generalized weakness as well. MD complaint: fall Onset (ago): day(s) Fall from: wheelchair Fall witnessed: yes, by family Place fall occurred: home Prolonged down time: yes Symptoms prior to fall: other (Weakness) Context: history of frequent falls Location of injury - extremities: Bilateral: lower leg Severity: moderate Associated symptoms-after fall: Reports difficulty walking and weakness; Denies abdominal pain, chest pain, numbness or short of breath Review of Systems Const: Reports: body aches, fatigue and malaise; Denies: fever(s), chills or change in appetite ENMT: Denies: throat pain, ear or mastoid pain, nasal discharge or nasal congestion Card: Denies: chest pain, edema, dyspnea on exertion or orthopnea Resp: Reports: dyspnea; Denies: productive cough or non-productive cough GI: Denies: abdominal pain, nausea, vomiting, hematemesis, coffee ground emesis, diarrhea, constipation, bloating, hematochezia or melena : Denies: flank pain, difficulty urinating, dysuria, urinary frequency or urinary urgency Skin/Breast: Reports: rash (Petechial rash lower extremities) and skin swelling Neuro: Reports: difficulty walking Bharat/Lymph: Reports: easy bruising and petechiae PFS ED PFSH: Medical History Abnormal nuclear stress test Accelerated hypertension Acute kidney injury Atrial fibrillation Chronic, history of bradycardia with beta blockers, on eliquis Atrial fibrillation BMI 40.0-44.9, adult BPH NOS w/o ur obs/LUTS Bradycardia Calculus of proximal ureter Chronic anticoagulation eliquis Chronic diastolic heart failure Chronic kidney disease Congestive heart failure Coronary artery disease Evaluated in [place], patient reports 55% narrowing unknown vessel no stent or angioplasty done CVA (cerebral vascular accident) residual right weakness Diabetes mellitus, type II Diabetic neuropathy associated with type 2 diabetes mellitus Hyperkalemia Hyperlipidemia Hypertension Lumbar foraminal stenosis Nicotine dependence, chewing tobacco, with other nicotine-induced disorders Obesity BMI-42 kg/m2 Obstructive sleep apnea not on treatment by choice Osteoarthritis PAD (peripheral artery disease) PVD (peripheral vascular disease) Renal calculus, right Rhabdomyolysis Squamous cell carcinoma in situ Temporary transvenous cardiac pacemaker present Surgical History No pertinent past surgical history Status post cardiac pacemaker procedure Family History Mother , 87 Diabetes CAD (coronary artery disease) Hypertension Father , 60 No problems noted. Social History Smoking and tobacco status: current every day smoker pipe Pipes smoked per week: 1 Years smoked pipe: 54 and smokeless tobacco Smokeless tobacco user: chewing tobacco Alcohol intake: former Year of sobriety/quit date alcohol: 25 y Former alcohol use details: heavy use, 5 DWI's Household members: none Housing: House Marital status: service: Yes Current occupational status: retired Physical Exam Const: GENERAL APPEARANCE: cooperative and lethargic ORIENTATION/CONSCIOUSNESS: Yes awake and Yes lethargic HENMT: COMMON NORMALS: normocephalic and atraumatic HEAD & SCALP: normocephalic and atraumatic Eye: OTHER: Strabismus left eye Neck/C-Spine: COMMON NORMALS: no JVD Resp: COMMON NORMALS: normal respiratory effort, No retractions, No use of accessory muscles and clear to auscultation bilaterally AUSCULTATION: clear to auscultation bilaterally Cardio: COMMON NORMALS: no JVD, regular rate, regular rhythm and No murmurs present (Cardio) RATE: regular rate RHYTHM: regular rhythm GI: COMMON NORMALS: Soft to palpation and No hepatosplenomegaly present AUSCULTATION: Yes normoactive bowel sounds PALPATION: Yes Soft to palpation, No Tenderness to palpation present (GI), No Guarding due to palpation present (GI) and Yes No hepatosplenomegaly present Extremity: OTHER: Abrasions of the toes some skin tears as well lower extremities bilaterally are indurated chronic edema and petechial-like rash extending to the level of the knees. Lower extremities are indurated with redness and are moderately warm to the touch. Patient also has a sacral decubitus ulcer partial-thickness. Neuro: SENSORIUM/ORIENTATION: Yes Orientation impaired and Yes lethargic Skin: COMMON NORMALS: no rashes or lesions noted GENERAL SKIN EXAM: no rashes or lesions noted Course Vital Signs: Vital signs: Vital Signs Temperature 98.6 F 07/23/21 04:00 Pulse Rate 70 07/23/21 04:00 Respiratory Rate 18 07/23/21 04:00 Blood Pressure 126/66 07/23/21 04:00 Pulse Oximetry 97 07/23/21 04:00 MDM - Fall Medical Decision Making Care signed out to Dr. Vanegas at change of shift. See final notes for diagnosis and disposition. Patient is essentially immobile, and lives at home alone. He has a sacral decubitus ulcer, and significant cellulitis to the bilateral lower extremities with weeping ulcerations to his toes. He has a history of compromised arterial flow to his lower extremities, although this was not severe on latest ultrasound vascular testing. He has acute on chronic kidney dysfunction, with hyperkalemia present. He is given sodium bicarb and calcium for this. He will need IV antibiotics, significant wound care, and possibly long-term rehabilitation Medical Records I reviewed the patient's medical records. Lab Data I reviewed the patient's lab results. : 07/22/21 03:12 07/22/21 03:12 Radiology Impressions Chest X-Ray 07/19/21 15:53 IMPRESSION: No acute abnormality. Pelvis X-Ray 07/19/21 16:18 IMPRESSION: No acute abnormality. Head CT 07/19/21 17:11 IMPRESSION: No acute intracranial abnormality. Chronic microvascular ischemic changes. Venous Duplex 07/19/21 17:11 IMPRESSION: No evidence of deep vein thrombosis. Abdomen/Pelvis CT 07/20/21 14:46 IMPRESSION: 1. No acute abnormality in the abdomen or pelvis. 2. Increase in size of an hyperdense focus in the right kidney. Recommend follow-up ultrasound or MRI on a nonemergent basis to rule out the possibility of a renal mass. 3. New indeterminate focus in the right adrenal gland. If the patient has no cancer history, then consider follow-up non-emergent adrenal CT or resection. If the patient has a history of cancer, then consider biopsy or PET/CT. (Reference: Kurt) 4. Two small right renal cysts, the larger is increased in size. 5. Sigmoid diverticulosis. No evidence for diverticulitis. 6. Incidental/nonacute findings are listed in the report. COMMENTS: Consistent with the [place] [employer]'s Incidental Findings Committee white paper (J Am Narayan Radiol 2018): Any incidental renal lesion less than 1 cm or classified as too small to characterize, or any incidental cystic renal lesion characterized as simple-appearing, is likely benign. No follow-up imaging is recommended for these lesions per consensus recommendations based on imaging criteria. REFERENCES: Kurt JEFF, et al. Management of Incidental Adrenal Masses: A White Paper of the ACR Incidental Findings Committee. J Am Narayan Radiol. 2017;14(8):9917-9928. ADDENDUM: 07/20/21 1864 Please note the addendum to the original report: Nonobstructing stone in the right kidney measuring 1.0 cm. Urgent results regarding indeterminate right renal and adrenal foci were discussed with KRIS Woody on 07/20/2021 at 4:45 PM CDT. Laboratory Results WBC 11.3 10^3/uL (4.0-10.0) H 07/19/21 16:55 RBC 3.87 10^6/uL (4.1-5.3) L 07/19/21 16:55 Hgb 11.4 g/dL (11.7-16.6) L 07/19/21 16:55 Hct 33.2 % (42.0-52.0) L 07/19/21 16:55 MCV 85.8 fl (80-94) 07/19/21 16:55 MCH 29.5 pg (28.0-34.0) 07/19/21 16:55 MCHC 34.3 g/dL (30.0-36.0) 07/19/21 16:55 RDW 14.3 % (12.1-15.1) 07/19/21 16:55 Plt Count 240 10^3/cmm (130-400) 07/19/21 16:55 MPV 10.8 fL (7.4-10.4) H 07/19/21 16:55 Neut % (Auto) 76.4 % 07/19/21 16:55 Lymph % (Auto) 14.8 % 07/19/21 16:55 Wagoner % (Auto) 6.4 % 07/19/21 16:55 Eos % (Auto) 1.5 % 07/19/21 16:55 Baso % (Auto) 0.4 % 07/19/21 16:55 Neut # (Auto) 8.64 10^3/uL (1.8-7.7) H 07/19/21 16:55 Lymph # (Auto) 1.7 10^3/uL (0.8-4.8) 07/19/21 16:55 Wagoner # (Auto) 0.7 10^3/uL (0.2-0.9) 07/19/21 16:55 Eos # (Auto) 0.2 10^3/uL (0.0-0.8) 07/19/21 16:55 Baso # (Auto) 0.1 10^3/uL (0.0-0.1) 07/19/21 16:55 Nucleated RBC % (auto) 0 % 07/19/21 16:55 Nucleated RBCs # 0.0 /100WBC 07/19/21 16:55 Sodium 134 mmol/L (136-145) L 07/19/21 18:25 Potassium 5.7 mmol/L (3.5-5.1) H 07/19/21 18:25 Chloride 99 mmol/L (98-107) 07/19/21 18:25 Carbon Dioxide 20 mmol/L (22-29) L 07/19/21 18:25 Anion Gap 20.7 (5-19) H 07/19/21 18:25 BUN 49 mg/dL (8-23) H 07/19/21 18:25 Creatinine 2.1 mg/dL (0.7-1.2) H 07/19/21 18:25 GFR Calculation Not Reportable 07/19/21 18:25 Glucose 218 mg/dL (65-115) H 07/19/21 18:25 Calculated Osmolality 298 mOsm/kg (285-295) H 07/19/21 18:25 Calcium 8.5 mg/dL (8.5-10.5) 07/19/21 18:25 Total Bilirubin 0.5 mg/dL (0.15-1.2) 07/19/21 18:25 AST 14 U/L (0-40) 07/19/21 18:25 ALT 15 U/L (0-41) 07/19/21 18:25 Alkaline Phosphatase 107 IU/L (40-130) 07/19/21 18:25 Troponin T Baseline 78 ng/L (0-15) H 07/19/21 18:25 Troponin T 120 Minute 88.16 ng/L (0-15) H 07/19/21 19:25 Delta Troponin T 10.16 ABS# (0-10) H* 07/19/21 19:25 Total Protein 6.9 g/dL (6.6-8.7) 07/19/21 18:25 Albumin 3.8 g/dL (3.5-5.2) 07/19/21 18:25 Globulin 3.1 g/dL (1.3-4.6) 07/19/21 18:25 Discharge Plan Discharge Patient Disposition: Admitted As Inpatient Admit Provider: Nik Douglas Clinical Impression: Ischemic toe ulcer, Bilateral lower leg cellulitis, CKD (chronic kidney disease) Condition: Fair Coding Level of Care Code ED Painting Contractor for Chg Fwd Exam Comprehensive Documented by User: Justin Vanegas DO 07/20/21 02:05 HPI - Fall General: Chief Complaint: Fall Stated Complaint: FREQUENT FALLS Time Seen by Provider: 07/19/21 15:48 Source: patient History of Present Illness: 71-year-old male who lives at home alone. He notes that he has loss of ability to walk, and gets around in a wheelchair mostly. He can barely transfer at this point. He is fallen multiple times. He had a recent admission for weakness as well. Because of his falls, and because of wheelchair injury, he has developed multiple ulcerations to the dorsum of his feet and toes. His legs are red, beefy, and swollen. He has a petechial rash as well. He denies significant fever vomiting. He does note worsening generalized weakness. MD complaint: fall and other Onset (ago): day(s) Fall from: standing and wheelchair Fall witnessed: no Place fall occurred: home Loss of consciousness: None Context: recent illness and history of frequent falls Location of injury: other Location of injury - extremities: Bilateral: lower leg, ankle and foot Associated symptoms-after fall: Reports numbness and weakness; Denies abdominal pain, chest pain, confusion or headache(s) Review of Systems Const: Denies: fever(s) Eyes: Denies: change in vision ENMT: Denies: throat pain Card: Denies: chest pain Resp: Denies: dyspnea, productive cough or non-productive cough GI: Denies: abdominal pain or vomiting Neuro: Denies: headache(s) or confusion PFSH ED PFSH: Medical History Abnormal nuclear stress test Accelerated hypertension Acute kidney injury Atrial fibrillation Chronic, history of bradycardia with beta blockers, on eliquis Atrial fibrillation BMI 40.0-44.9, adult BPH NOS w/o ur obs/LUTS Bradycardia Calculus of proximal ureter Chronic anticoagulation eliquis Chronic diastolic heart failure Chronic kidney disease Congestive heart failure Coronary artery disease Evaluated in [place], patient reports 55% narrowing unknown vessel no stent or angioplasty done CVA (cerebral vascular accident) residual right weakness Diabetes mellitus, type II Diabetic neuropathy associated with type 2 diabetes mellitus Hyperkalemia Hyperlipidemia Hypertension Lumbar foraminal stenosis Nicotine dependence, chewing tobacco, with other nicotine-induced disorders Obesity BMI-42 kg/m2 Obstructive sleep apnea not on treatment by choice Osteoarthritis PAD (peripheral artery disease) PVD (peripheral vascular disease) Renal calculus, right Rhabdomyolysis Squamous cell carcinoma in situ Temporary transvenous cardiac pacemaker present Surgical History No pertinent past surgical history Status post cardiac pacemaker procedure Family History Mother , 87 Diabetes CAD (coronary artery disease) Hypertension Father , 60 No problems noted. Social History Smoking and tobacco status: current every day smoker pipe Pipes smoked per week: 1 Years smoked pipe: 54 and smokeless tobacco Smokeless tobacco user: chewing tobacco Alcohol intake: former Year of sobriety/quit date alcohol: 26 y Former alcohol use details: heavy use, 5 DWI's Household members: none Housing: House Marital status: service: Yes Current occupational status: retired Physical Exam Const: COMMON NORMALS: no acute distress HENMT: COMMON NORMALS: normocephalic HEAD & SCALP: normocephalic Eye: COMMON NORMALS: no scleral icterus OTHER: left eye lateral deviation/strabismus Chest: COMMONS NORMALS: normal inspection of the chest Resp: COMMON NORMALS: normal respiratory effort, No use of accessory muscles and clear to auscultation bilaterally AUSCULTATION: clear to auscultation bilaterally Cardio: COMMON NORMALS: regular rate and regular rhythm RATE: regular rate RHYTHM: regular rhythm GI: COMMON NORMALS: Normal to inspection, nondistended, normoactive bowel sounds present, Soft to palpation and non-tender PALPATION: Yes Soft to palpation Extremity: NARRATIVE EXTREMITY EXAM: Bilateral lower extremity edema with beefy erythema consistent with cellulitis. There is petechia present with some purpura as well. Ulcerations to the dorsum of multiple toes with weeping discharge. Sacral decubitus ulcer present with partial-thickness skin breakdown, and surrounding erythema. Neuro: SERGIO COMA SCALE: document GCS findings [place] coma scale total score: SPEECH: speech normal Psych: COMMON NORMALS: cooperative Course Vital Signs: Vital signs: Vital Signs Temperature 98.6 F 07/23/21 04:00 Pulse Rate 70 07/23/21 04:00 Respiratory Rate 18 07/23/21 04:00 Blood Pressure 126/66 07/23/21 04:00 Pulse Oximetry 97 07/23/21 04:00 MDM - Fall Medical Decision Making Patient is essentially immobile, and lives at home alone. He has a sacral decubitus ulcer, and significant cellulitis to the bilateral lower extremities with weeping ulcerations to his toes. He has a history of compromised arterial flow to his lower extremities, although this was not severe on latest ultrasound vascular testing. He has acute on chronic kidney dysfunction, with hyperkalemia present. He is given sodium bicarb and calcium for this. He will need IV antibiotics, significant wound care, and possibly long-term rehabilitation Lab Data : 07/22/21 03:12 07/22/21 03:12 Radiology Impressions Chest X-Ray 07/19/21 15:53 IMPRESSION: No acute abnormality. Pelvis X-Ray 07/19/21 16:18 IMPRESSION: No acute abnormality. Head CT 07/19/21 17:11 IMPRESSION: No acute intracranial abnormality. Chronic microvascular ischemic changes. Venous Duplex 07/19/21 17:11 IMPRESSION: No evidence of deep vein thrombosis. Abdomen/Pelvis CT 07/20/21 14:46 IMPRESSION: 1. No acute abnormality in the abdomen or pelvis. 2. Increase in size of an hyperdense focus in the right kidney. Recommend follow-up ultrasound or MRI on a nonemergent basis to rule out the possibility of a renal mass. 3. New indeterminate focus in the right adrenal gland. If the patient has no cancer history, then consider follow-up non-emergent adrenal CT or resection. If the patient has a history of cancer, then consider biopsy or PET/CT. (Reference: Kurt) 4. Two small right renal cysts, the larger is increased in size. 5. Sigmoid diverticulosis. No evidence for diverticulitis. 6. Incidental/nonacute findings are listed in the report. COMMENTS: Consistent with the [place] [employer]'s Incidental Findings Committee white paper (J Am Narayan Radiol 2018): Any incidental renal lesion less than 1 cm or classified as too small to characterize, or any incidental cystic renal lesion characterized as simple-appearing, is likely benign. No follow-up imaging is recommended for these lesions per consensus recommendations based on imaging criteria. REFERENCES: Kurt JEFF et al. Management of Incidental Adrenal Masses: A White Paper of the ACR Incidental Findings Committee. J Am Narayan Radiol. 2017;14(8):4403-2414. ADDENDUM: 07/20/21 9901 Please note the addendum to the original report: Nonobstructing stone in the right kidney measuring 1.0 cm. Urgent results regarding indeterminate right renal and adrenal foci were discussed with KRIS Woody on 07/20/2021 at 4:45 PM CDT. Laboratory Results WBC 11.3 10^3/uL (4.0-10.0) H 07/19/21 16:55 RBC 3.87 10^6/uL (4.1-5.3) L 07/19/21 16:55 Hgb 11.4 g/dL (11.7-16.6) L 07/19/21 16:55 Hct 33.2 % (42.0-52.0) L 07/19/21 16:55 MCV 85.8 fl (80-94) 07/19/21 16:55 MCH 29.5 pg (28.0-34.0) 07/19/21 16:55 MCHC 34.3 g/dL (30.0-36.0) 07/19/21 16:55 RDW 14.3 % (12.1-15.1) 07/19/21 16:55 Plt Count 240 10^3/cmm (130-400) 07/19/21 16:55 MPV 10.8 fL (7.4-10.4) H 07/19/21 16:55 Neut % (Auto) 76.4 % 07/19/21 16:55 Lymph % (Auto) 14.8 % 07/19/21 16:55 Wagoner % (Auto) 6.4 % 07/19/21 16:55 Eos % (Auto) 1.5 % 07/19/21 16:55 Baso % (Auto) 0.4 % 07/19/21 16:55 Neut # (Auto) 8.64 10^3/uL (1.8-7.7) H 07/19/21 16:55 Lymph # (Auto) 1.7 10^3/uL (0.8-4.8) 07/19/21 16:55 Wagoner # (Auto) 0.7 10^3/uL (0.2-0.9) 07/19/21 16:55 Eos # (Auto) 0.2 10^3/uL (0.0-0.8) 07/19/21 16:55 Baso # (Auto) 0.1 10^3/uL (0.0-0.1) 07/19/21 16:55 Nucleated RBC % (auto) 0 % 07/19/21 16:55 Nucleated RBCs # 0.0 /100WBC 07/19/21 16:55 Sodium 134 mmol/L (136-145) L 07/19/21 18:25 Potassium 5.7 mmol/L (3.5-5.1) H 07/19/21 18:25 Chloride 99 mmol/L (98-107) 07/19/21 18:25 Carbon Dioxide 20 mmol/L (22-29) L 07/19/21 18:25 Anion Gap 20.7 (5-19) H 07/19/21 18:25 BUN 49 mg/dL (8-23) H 07/19/21 18:25 Creatinine 2.1 mg/dL (0.7-1.2) H 07/19/21 18:25 GFR Calculation Not Reportable 07/19/21 18:25 Glucose 218 mg/dL (65-115) H 07/19/21 18:25 Calculated Osmolality 298 mOsm/kg (285-295) H 07/19/21 18:25 Calcium 8.5 mg/dL (8.5-10.5) 07/19/21 18:25 Total Bilirubin 0.5 mg/dL (0.15-1.2) 07/19/21 18:25 AST 14 U/L (0-40) 07/19/21 18:25 ALT 15 U/L (0-41) 07/19/21 18:25 Alkaline Phosphatase 107 IU/L (40-130) 07/19/21 18:25 Troponin T Baseline 78 ng/L (0-15) H 07/19/21 18:25 Troponin T 120 Minute 88.16 ng/L (0-15) H 07/19/21 19:25 Delta Troponin T 10.16 ABS# (0-10) H* 07/19/21 19:25 Total Protein 6.9 g/dL (6.6-8.7) 07/19/21 18:25 Albumin 3.8 g/dL (3.5-5.2) 07/19/21 18:25 Globulin 3.1 g/dL (1.3-4.6) 07/19/21 18:25 Discharge Plan Discharge Patient Disposition: Admitted As Inpatient Admit Provider: Nik Douglas Clinical Impression: Ischemic toe ulcer, Bilateral lower leg cellulitis, CKD (chronic kidney disease) Condition: Fair Coding Level of Care Code ED Painting Contractor for Chg Fwd Exam Comprehensive
[2021-07-19 15:53] VITALS: BP 123/72; PULSE 99; RESP 25; O2SAT 95
--- NOTE | 2021-07-19 15:53 | ECG_ITS ---
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 Measurements Intervals [place] Rate: 100 P: TN: QRS: 73 QRSD: 113 T: 25 QT: 336 QTc: 435 Interpretive Statements ATRIAL FIBRILLATION WITH RAPID VENTRICULAR RESPONSE LOW QRS VOLTAGE [QRS DEFLECTION < 0.5/1.0 mV IN LIMB/CHEST LEADS] RIGHT BUNDLE BRANCH BLOCK [120+ ms QRS DURATION, UPRIGHT V1, 40+ ms S IN I/aVL/V4/V5/V6] Compared to ECG 06/25/2021 20:26:56 Low QRS voltage now present Right bundle-branch block now present Left-axis deviation no longer present Left bundle-branch block no longer present Prolonged QT interval no longer present Electronically Signed On 07-19-2021 23:29:21 CDT by Refugio Kraus M.D. [id number]
--- NOTE | 2021-07-19 15:53 | XRR_ITS ---
PROCEDURE INFORMATION: Exam: XR Chest Exam date and time: 07/19/2021 5:42 PM Age: 71 years old Clinical indication: Dyspnea; Additional info: Dyspnea/cough TECHNIQUE: Imaging protocol: XR of the chest. Views: 1 view. COMPARISON: CR XR chest 1V portable [id number] 06/29/2021 1:09 PM FINDINGS: Tubes, catheters and devices: Left approach single lead pacemaker. Lungs: Unremarkable. No consolidation. Pleural spaces: Unremarkable. No pleural effusion. No pneumothorax. Heart/Mediastinum: Unremarkable. No cardiomegaly. Bones/joints: Unremarkable. XR/XR chest 1V portable [id number] IMPRESSION: No acute abnormality.
--- NOTE | 2021-07-19 16:18 | XRR_ITS ---
PROCEDURE INFORMATION: Exam: XR Pelvis Exam date and time: 07/19/2021 5:42 PM Age: 71 years old Clinical indication: Pelvic pain; Additional info: Pain/falls TECHNIQUE: Imaging protocol: XR pelvis. Views: 1 or 2 view. COMPARISON: CT abdomen pelvis con [id number] 11/08/2019 12:32 PM FINDINGS: Bones/joints: Moderate degenerative changes of bilateral hip joints. No acute fracture. Soft tissues: Unremarkable. XR/XR pelvis 1-2V* [id number] IMPRESSION: No acute abnormality.
[2021-07-19 17:10] LABS: Basophils # 0.1 10^3/uL (0.0-0.1); Basophils % 0.4 %; Eosinophils # 0.2 10^3/uL (0.0-0.8); Eosinophils % 1.5 %; Hematocrit 33.2 % (42.0-52.0); Hemoglobin 11.4 g/dL (11.7-16.6); Lymphocytes # 1.7 10^3/uL (0.8-4.8); Lymphocytes % 14.8 %; Mean Corpuscular HGB Conc 34.3 g/dL (30.0-36.0); Mean Corpuscular Hemoglobin 29.5 pg (28.0-34.0); Mean Corpuscular Volume 85.8 fl (80-94); Mean Platelet Volume 10.8 fL (7.4-10.4); Monocytes # 0.7 10^3/uL (0.2-0.9); Monocytes % 6.4 %; Neutrophils # 8.64 10^3/uL (1.8-7.7); Neutrophils % 76.4 %; Nucleated Red Blood Cells % 0 %; Platelet Count 240 10^3/cmm (130-400); Red Blood Count 3.87 10^6/uL (4.1-5.3); Red Cell Distribution Width 14.3 % (12.1-15.1); White Blood Count 11.3 10^3/uL (4.0-10.0)
--- NOTE | 2021-07-19 17:11 | USR_ITS ---
PROCEDURE INFORMATION: Exam: US Duplex Lower Extremity Veins, Bilateral Exam date and time: 07/19/2021 5:21 PM Age: 71 years old Clinical indication: Swelling (edema) of limb and other: Sores along lower legs, redness; Lower extremity, bilateral; Additional info: Leg swelling TECHNIQUE: Imaging protocol: Real-time Duplex ultrasound of the bilateral extremities with 2-D fernandes scale, color Doppler flow and spectral waveform analysis with image documentation. Complete exam focused on the bilateral lower extremity veins. COMPARISON: US renal BI with PV bladder 11/09/2019 6:25 AM FINDINGS: Right deep veins: Unremarkable. The common femoral, femoral, proximal profunda femoral and popliteal veins are patent without thrombus. Normal Doppler waveforms. Normal compressibility and/or augmentation response. Right superficial veins: Saphenofemoral junction is patent without thrombus. Left deep veins: Unremarkable. The common femoral, femoral, proximal profunda femoral and popliteal veins are patent without thrombus. Normal Doppler waveforms. Normal compressibility and/or augmentation response. Left superficial veins: Saphenofemoral junction is patent without thrombus. Soft tissues: Subcutaneous edema in the calves. US/[place] [id number] IMPRESSION: No evidence of deep vein thrombosis.
--- NOTE | 2021-07-19 17:11 | CTR_ITS ---
PROCEDURE INFORMATION: Exam: CT Head Without Contrast Exam date and time: 07/19/2021 5:55 PM Age: 71 years old Clinical indication: Injury or trauma; Blunt trauma (contusions or hematomas); Without loss of consciousness; Patient HX: C/O multiple recent falls; Additional info: Frequent falls, closed head injury TECHNIQUE: Imaging protocol: Computed tomography of the head without contrast. Radiation optimization: All CT scans at this facility use at least one of these dose optimization techniques: automated exposure control; mA and/or kV adjustment per patient size (includes targeted exams where dose is matched to clinical indication); or iterative reconstruction. COMPARISON: CT head wo con* [id number] 06/29/2021 9:24 AM RADIATION DOSE METRICS: Total DLP (mGy-cm): 980.63 FINDINGS: Brain: The fernandes-white differentiation is maintained. No hemorrhage. No edema.There are mild periventricular and subcortical lucencies consistent with chronic microvascular ischemic changes. Cerebral ventricles: No ventriculomegaly. Paranasal sinuses: Visualized sinuses are unremarkable. No fluid levels. Mastoid air cells: Visualized mastoid air cells are well aerated. Orbital cavities: Bilateral cataract surgery. Bones/joints: Unremarkable. No acute fracture. Soft tissues: Unremarkable. CT/CT head wo con* [id number] IMPRESSION: No acute intracranial abnormality. Chronic microvascular ischemic changes.
--- NOTE | 2021-07-19 17:53 | ECG_ITS ---
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 Measurements Intervals [place] Rate: 96 P: CT: QRS: 68 QRSD: 120 T: 10 QT: 348 QTc: 440 Interpretive Statements ATRIAL FIBRILLATION RIGHT BUNDLE BRANCH BLOCK [120+ ms QRS DURATION, UPRIGHT V1, 40+ ms S IN I/aVL/V4/V5/V6] Compared to ECG 07/19/2021 16:30:37 No significant changes Electronically Signed On 07-19-2021 23:34:58 CDT by Refugio Kraus M.D. [id number]
[2021-07-19 18:14] VITALS: PULSE 93; RESP 20; O2SAT 98
--- NOTE | 2021-07-19 18:18 | PC.NURSE ---
This RN assumed care at this time from TONYA Mckee at this time. Pt moved to rm 5 at this time.
--- NOTE | 2021-07-19 18:47 | PC.PHAR ---
PT UNABLE TO VERIFY MEDICATIONS. PT STATED TO THE NURSE AND I THAT HE TAKES A TON BUT NOT SURE WHAT THEY ARE. MEDICATIONS VERIFIED USING MED LIST FROM [facility]. PT DOES NOT KNOW WHEN HE LAST TOOK MEDICATIONS.
[2021-07-19 18:52] LABS: Alanine Aminotransferase 15 U/L (0-41); Albumin Level 3.8 g/dL (3.5-5.2); Alkaline Phosphatase 107 IU/L (40-130); Anion Gap 20.7 (5-19); Aspartate Amino Transferase 14 U/L (0-40); Blood Urea Nitrogen 49 mg/dL (8-23); Calcium 8.5 mg/dL (8.5-10.5); Carbon Dioxide 20 mmol/L (22-29); Chloride 99 mmol/L (98-107); Globulin 3.1 g/dL (1.3-4.6); Glucose 218 mg/dL (65-115); Osmolality Calculated 298 mOsm/kg (285-295); Potassium 5.7 mmol/L (3.5-5.1); Sodium 134 mmol/L (136-145); Total Bilirubin 0.5 mg/dL (0.15-1.2); Total Protein 6.9 g/dL (6.6-8.7)
[2021-07-19 18:58] LABS: Troponin(5th) Baseline 78 ng/L (0-15)
[2021-07-19 19:53] LABS: Troponin 5 2HR 88.16 ng/L (0-15)
[2021-07-19 19:54] LABS: Troponin 5 2HR Delta 10.16 ABS# (0-10)
--- NOTE | 2021-07-19 19:57 | PC.NURSE ---
Lab called critical trop delta [address] Vanegas updated
--- NOTE | 2021-07-19 21:53 | ECG_ITS ---
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 Measurements Intervals [place] Rate: 98 P: ID: QRS: 65 QRSD: 122 T: 10 QT: 359 QTc: 458 Interpretive Statements ATRIAL FIBRILLATION RIGHT BUNDLE BRANCH BLOCK [120+ ms QRS DURATION, UPRIGHT V1, 40+ ms S IN I/aVL/V4/V5/V6] SEPTAL MYOCARDIAL INFARCTION , OF INDETERMINATE AGE [40+ ms Q WAVE IN V1/V2] Compared to ECG 07/19/2021 18:19:49 Myocardial infarct finding now present Electronically Signed On 07-21-2021 19:37:04 CDT by Kervin Segundo M.D. [id number]
--- NOTE | 2021-07-19 22:14 | PM.HP ---
Providers/Chief Complaint Primary Care Provider: Jessica Bui MD Chief Complaint: FREQUENT FALLS History of Present Illness Giles Guillaume is a 71 year old male who has peripheral arterial disease, A. fib, chronic anticoagulation with Eliquis, type 2 diabetes, noncompliant, presented to the hospital with chief complaint of recurrent falls. Patient stating that he lives alone and is struggling to carry her daily activities. His home health nurse recommended to come to the ER for further evaluation because of worsening cellulitis of his feet. Patient has not noticed any temperature, nausea, vomiting, fever, chest pain. He is endorsing weight gain, worsening of swelling of feet bilaterally, right toes skin is sloughing off, he is denying pain at rest. His ambulation is limited now he is wheelchair-bound. Patient is stating that he would like to go to [facility] because his niece lives nearby He is not willing to go for any kind of vascular intervention, amputation, he does note the risk of ending up getting dialysis with angiogram or any contrast studies He would like to think about it overnight and let us know in the morning, if he decides to go with any intervention he prefers [facility] Previous ABIs showed moderate vascular disease of bilateral lower extremities In the ER he has been given vancomycin and sodium bicarb along calcium Review of Systems Const: Reports: fatigue and malaise; Denies: fever(s) Eyes: Denies: change in vision ENMT: Denies: throat pain Card: Denies: chest pain Resp: Denies: dyspnea GI: Denies: abdominal pain : Denies: flank pain Musc: Reports: limited range of motion and muscle cramps Skin/Breast: Reports: rash, erythema, skin tenderness, skin swelling, new lesions, changing lesions and changes in skin color Neuro: Denies: headache(s) Psych: Denies: anxiety Endo: Denies: polyuria Bharat/Lymph: Denies: easy bruising All/Imm: Denies: urticaria Medications/Allergies Home Medications Medication Instructions Recorded Confirmed Last Taken Type oxycodone 10 mg tablet 5 - 10 mg PO TID PRN 06/25/21 07/19/21 Unknown History pentoxifylline 400 mg 400 mg PO BID 06/25/21 07/19/21 Unknown History tablet,extended release pregabalin 150 mg capsule (Lyrica) 150 mg PO BID 06/25/21 07/19/21 Unknown History amlodipine 10 mg tablet 10 mg PO DAILY 30 Days #30 tab 07/04/21 07/19/21 Unknown Rx apixaban 5 mg tablet (Eliquis) 5 mg PO BID 30 Days #60 tab 07/04/21 07/19/21 06/25/21 Rx cholecalciferol (vitamin D3) 50 2,000 unit PO QAM 30 Days #30 tab 07/04/21 07/19/21 06/25/21 Rx mcg (2,000 unit) tablet (Vitamin D3) clonidine 0.3 mg/24 hr weekly 1 patch TRANSDERMAL Q7D 30 Days #4 07/04/21 07/19/21 Unknown Rx transdermal patch ea finasteride 5 mg tablet 5 mg PO DAILY 30 Days #30 tab 07/04/21 07/19/21 10/31/19 Rx folic acid 1 mg tablet 1 mg PO DAILY 30 Days #30 tab 07/04/21 07/19/21 Unknown Rx hydralazine 25 mg tablet 50 mg PO TID 30 Days #180 tab 07/04/21 07/19/21 Unknown Rx hydrochlorothiazide 25 mg tablet 25 mg PO DAILY 30 Days #30 tab 07/04/21 07/19/21 Unknown Rx insulin aspart U-100 100 unit/mL See Rx Instructions .ROUTE 07/04/21 07/19/21 Unknown Rx (3 mL) subcutaneous pen (Novolog .COMPLEX #15 ml Flexpen U-100 Insulin aspart) insulin glargine 100 unit/mL (3 5 unit (0.05 mL) SUBCUT BEDTIME #0 07/04/21 07/19/21 06/24/21 Rx mL) subcutaneous pen ml isosorbide mononitrate 60 mg 120 mg PO DAILY 30 Days #60 tab 07/04/21 07/19/21 Unknown Rx tablet,extended release 24 hr minoxidil 10 mg tablet 5 mg PO DAILY 30 Days #30 tab 07/04/21 07/19/21 Unknown Rx multivitamin 1 tab PO DAILY 30 Days #30 tab 07/04/21 07/19/21 06/25/21 Rx multivitamin with folic acid 400 1 tab PO DAILY 30 Days tab 07/04/21 07/19/21 Unknown Rx mcg tablet (Thera) pantoprazole 40 mg tablet,delayed 40 mg PO DAILY 30 Days #30 tab 07/04/21 07/19/21 Unknown Rx release potassium chloride 20 mEq 40 meq PO DAILY #120 tab 07/04/21 07/19/21 06/25/21 Rx tablet,extended release rosuvastatin 10 mg tablet 10 mg PO QPM 30 Days #30 tab 07/04/21 07/19/21 11/07/19 Rx tamsulosin 0.4 mg capsule 0.4 mg PO BEDTIME 30 Days #30 cap 07/04/21 07/19/21 06/24/21 Rx thiamine mononitrate (vit B1) 100 100 mg PO DAILY 30 Days #30 tab 07/04/21 07/19/21 Unknown Rx mg tablet (Vitamin B-1 (mononitrate)) furosemide 80 mg tablet (Lasix) 40 mg PO QAM PRN 30 Days #30 tab 07/09/21 07/19/21 06/25/21 Rx imiquimod 5 % topical cream packet 1 applic TOPICAL DAILY 07/19/21 07/19/21 Unknown History ketorolac 0.5 % eye drops 1 drp OPHTHALMIC (EYE) QID 07/19/21 07/19/21 Unknown History metoprolol tartrate 100 mg tablet 50 mg PO BID 07/19/21 07/19/21 Unknown History polyethylene glycol 3350 17 17 g PO DAILY 07/19/21 07/19/21 Unknown History gram/dose oral powder prednisolone acetate 1 % eye 1 drp OPHTHALMIC (EYE) TID 07/19/21 07/19/21 Unknown History drops,suspension psyllium 1 tsp PO BID 07/19/21 07/19/21 Unknown History sennosides 8.6 mg tablet 8.6 mg PO DAILY 07/19/21 07/19/21 Unknown History sodium chloride 0.9 % See Rx Instructions .ROUTE .COMPLEX 07/19/21 07/19/21 Unknown History spironolactone 50 mg tablet 50 mg PO BID 07/19/21 07/19/21 Unknown History Allergies Allergy/AdvReac Type Severity Reaction Status Date / Time aspirin Allergy ALGY-Anaphy Verified 07/19/21 18:47 laxis carvedilol AdvReac diarrhea Verified 06/25/21 12:22 hydralazine AdvReac vomiting Verified 06/25/21 12:22 PFSH Acute PFSH: Medical History Abnormal nuclear stress test Accelerated hypertension Acute kidney injury Atrial fibrillation Chronic, history of bradycardia with beta blockers, on eliquis Atrial fibrillation BMI 40.0-44.9, adult BPH NOS w/o ur obs/LUTS Bradycardia Calculus of proximal ureter Chronic anticoagulation eliquis Chronic diastolic heart failure Chronic kidney disease Congestive heart failure Coronary artery disease Evaluated in [place], patient reports 55% narrowing unknown vessel no stent or angioplasty done CVA (cerebral vascular accident) residual right weakness Diabetes mellitus, type II Diabetic neuropathy associated with type 2 diabetes mellitus Hyperkalemia Hyperlipidemia Hypertension Lumbar foraminal stenosis Nicotine dependence, chewing tobacco, with other nicotine-induced disorders Obesity BMI-42 kg/m2 Obstructive sleep apnea not on treatment by choice Osteoarthritis PAD (peripheral artery disease) PVD (peripheral vascular disease) Renal calculus, right Rhabdomyolysis Squamous cell carcinoma in situ Temporary transvenous cardiac pacemaker present Surgical History No pertinent past surgical history Status post cardiac pacemaker procedure Family History Mother , 87 Diabetes CAD (coronary artery disease) Hypertension Father , 60 No problems noted. Social History Smoking and tobacco status: current every day smoker pipe Pipes smoked per week: 1 Years smoked pipe: 54 and smokeless tobacco Smokeless tobacco user: chewing tobacco Alcohol intake: former Year of sobriety/quit date alcohol: 26 y Former alcohol use details: heavy use, 5 DWI's Household members: none Housing: House Marital status: service: Yes Current occupational status: retired Vitals/I&O/Wt Last Vital Signs Pulse 93 07/19/21 18:14 Resp 20 H 07/19/21 18:14 BP 123/72 07/19/21 15:53 Pulse Ox 98 07/19/21 18:14 Physical Exam Narrative: male morbidly obese Laying comfortably in his bed Anasarca 3+ pitting edema of legs Multiple petechial rash all over his body especially under his lower extremities Arterial ulcers noted on feet Wet gangrene of right toes Pulses weakly palpable because of edema No active rest pain of legs EOMI, PERRLA Saturating well on room air S1, S2 variable A. fib RVR Pleasant and cooperative Nonfocal neuro exam No sensations of lower extremities Data : 07/19/21 16:55 07/19/21 18:25 A&P Assessment and plan (1) Cellulitis: Status: Acute (2) Ischemic toe ulcer: Status: Acute (3) Physical deconditioning: Status: Acute (4) Bilateral lower leg cellulitis: Status: Acute (5) CKD (chronic kidney disease): Status: Acute (6) Pes planus of both feet: Status: Chronic (7) Peripheral arterial disease: Status: Acute Plan Wet gangrene right toes Start renally dose vancomycin Add Zosyn as she is diabetic as well Previous right foot wound specimen showed MRSA No active signs of sepsis He has been treated with multiple antibiotics in the past developed C. difficile diarrhea as well 07/08 Previous ABIs showed moderate vascular disease Patient had active arterial ulcers He is at risk of amputation We will check ESR, CRP No signs of DVT Obtain x-ray of feet bilateral Patient does not want to go for any vascular intervention, he does understand the risk of worsening of cellulitis, sepsis, septic shock and , he does not want to lose his feet at any cost as well, in case he changes his mind he would like to get procedure done at [facility] near his niece Right now he lives alone not able to manage his daily activities, home health services available Patient wants to know about his options about getting placed at a fdc around [place] We will consult gearcase assembler Lisbeth madison carb diet Continue Eliquis renally dosed Patient is full code, he would like to think about his goals of care overnight and let us know in the morning, please readdress Continue Lasix Chronic kidney disease without acute worsening of creatinine, hyperkalemia noted, will give him 1 dose of Kayexalate Attestations Medical Necessity Statement*: Anticipating more than 2 midnights in the hospital for management of blood gangrene Time Spent in Patient Care: 40mins Coding Level of Care Code Acute Sap Business Intelligence Consultant for [facility] Fwd Diagnoses Cellulitis L03.90 Ischemic toe ulcer L97.509 Physical deconditioning R53.81 Bilateral lower leg cellulitis L03.116; L03.115 CKD (chronic kidney disease) N18.9 Pes planus of both feet M21.41; M21.42 Peripheral arterial disease I73.9
[2021-07-19] MEDS: calcium chloride 10% Syr 10 mL 1 GM IVP (22:27)
[2021-07-19 22:30] VITALS: PULSE 62; RESP 14; O2SAT 95
[2021-07-19] MEDS: vancomycin 1,000 MG in sodium chloride 0.9% 250 ML 250 MG IV (22:43)
[2021-07-19] MEDS: sodium bicarbonate 50 MEQ in sodium chloride 0.45% 1,000 ML 100 MEQ IV (22:43)
[2021-07-19 23:28] VITALS: BP 141/59; PULSE 78; RESP 14; O2SAT 95
[2021-07-19 23:32] VITALS: BP 145/66; PULSE 96; RESP 20; O2SAT 97
[2021-07-19 23:47] LABS: Troponin 5 6HR 80.83 ng/L (0-15)
[2021-07-19 23:50] LABS: Troponin 5 6HR Delta 2.83 ng/L (0-12)
[2021-07-20] VITALS (9 sets, daily range): BP systolic 123–159; BP diastolic 70–77; PULSE 65–102; RESP 18–20; TEMP 36.7–36.9; O2SAT 93–98; BMI 39.9
[2021-07-20 00:18] LABS: Procalcitonin 0.25 ng/mL (0-0.5)
[2021-07-20] MEDS: cloNIDine 0.3 mg/24 hr Patch 1 PATCH TRANSDERMA (01:46)
--- NOTE | 2021-07-20 02:03 | PC.PHAR ---
Pharmacokinetic dosing service Date: 07/20/21 Time: 199 Objective: Patient: Giles Guillaume Floor: 260-1 Age: 71 yo Serum creatinine: 2.1 mg/dL Height: 73.0 Inches Weight (kg): 137.438 Diagnosis: Relevant medical/social history: Cultures and sensitivities: Other labs: Assessment: IBW (kg): 79.90 Dosing wt(kg): 102.9 Estimated Creatinine clearance (ml/min): 35.9 CRCL method: Cockcroft and Gault using ibw(default). Drug selected: Vancomycin Loading dose (mg): 0 Vd (liters): 92.6 (factor used: 0.9 L/kg) Andrés (hr-1): 0.034 Half life (hrs): 20.39 Recommended dose: 1500 mg Interval: 24 hrs Infusion time (hrs): 1.5 Predicted peak (mcg/mL): 28.3 Predicted trough (mcg/mL): 13.17 Adjusted body weight was selected for vancomycin dosing. To switch back, select the total body weight option above. Renal function is stable [ ] /unstable [ ] Recommendations: Give Vancomycin 1500 mg q 24 hrs with an expected Cpeak of 28.3 mcg/ml and an expected Ctrough of 13.17 mcg/ml Renal dosing of other antibiotics (review renal dosing of other medications and list guidelines here): Thank you for the consult, will continue to follow. Signature: Analy Florez [facility]
--- NOTE | 2021-07-20 02:32 | PC.NURSE ---
lower extremeties reddness with sores to lower legs , left upper chest s/p pacemaker site incision clean dry and intact. Coccyx area reddness skin tear to right buttucks. arms reddeness and abrasions
[2021-07-20] MEDS: piperacillin-tazobactam 3.375 GM in sodium chloride 0.9% (plus) 50 ML IV ×3 (03:18→13:42)
[2021-07-20 05:52] LABS: Basophils # 0.1 10^3/uL (0.0-0.1); Basophils % 0.4 %; Eosinophils # 0.3 10^3/uL (0.0-0.8); Eosinophils % 1.9 %; Hematocrit 35.5 % (42.0-52.0); Hemoglobin 11.6 g/dL (11.7-16.6); Lymphocytes # 2.2 10^3/uL (0.8-4.8); Lymphocytes % 16.3 %; Mean Corpuscular HGB Conc 32.7 g/dL (30.0-36.0); Mean Corpuscular Volume 88.8 fl (80-94); Mean Platelet Volume 10.1 fL (7.4-10.4); Monocytes # 0.7 10^3/uL (0.2-0.9); Neutrophils # 10.18 10^3/uL (1.8-7.7); Neutrophils % 75.9 %; Nucleated Red Blood Cells % 0 %; Platelet Count 245 10^3/cmm (130-400); Red Cell Distribution Width 14.1 % (12.1-15.1); White Blood Count 13.4 10^3/uL (4.0-10.0)
[2021-07-20 06:07] LABS: Anion Gap 17.5 (5-19); Blood Urea Nitrogen 45 mg/dL (8-23); Calcium 8.9 mg/dL (8.5-10.5); Carbon Dioxide 21 mmol/L (22-29); Chloride 97 mmol/L (98-107); Glucose 207 mg/dL (65-115); Osmolality Calculated 288 mOsm/kg (285-295); Potassium 5.5 mmol/L (3.5-5.1); Sodium 130 mmol/L (136-145)
[2021-07-20] MEDS: FUROsemide 40 mg Tablet PO (06:19)
[2021-07-20] MEDS: pregabalin 75 mg Capsule PO ×2 (09:25→18:10)
[2021-07-20] MEDS: apixaban 5 mg Tablet 2.5 MG PO ×2 (09:25→18:10)
[2021-07-20] MEDS: finasteride 5 mg Tablet PO (09:25)
[2021-07-20] MEDS: metoprolol tartrate 50 mg Tablet PO ×2 (09:25→18:10)
[2021-07-20] MEDS: amlodipine 10 mg Tablet PO (09:26)
[2021-07-20] MEDS: hyDRALAzine 25 mg Tablet 50 MG PO ×3 (09:27→22:04)
[2021-07-20] MEDS: folic acid 1 mg Tablet PO (09:27)
[2021-07-20] MEDS: pantoprazole DR 40 mg Tablet PO (09:28)
[2021-07-20] MEDS: insulin lispro 100 unit/1 mL SUBCUT ×3 (09:29→22:05)
[2021-07-20] MEDS: sennosides 8.6 mg Tablet PO (09:30)
[2021-07-20 11:11] LABS: Glucose Point of Care 194 mg/dL (70-110)
--- NOTE | 2021-07-20 14:35 | PM.PN ---
Subjective Subjective: Admitted overnight. Examination lying comfortably in bed. Denies any nausea vomiting, headache. Complaining of pain in his legs. Denies any chest pain. Vitals/I&O/Wt Last Vital Signs Temp 98.2 F 07/20/21 11:17 Pulse 76 07/20/21 11:17 Resp 18 07/20/21 11:17 BP 134/72 07/20/21 11:17 Pulse Ox 97 07/20/21 11:17 07/19/21 07/20/21 07/20/21 22:59 06:59 14:59 Intake Total 527.083 / 527.083 770 / 770 Output Total 600 / 600 Balance 527.083 / 527.083 170 / 170 Weight last 48 hrs Weight 145.15 kg Weight 137.438 kg Physical Exam Narrative: General: No acute distress, AO x3, morbidly obese anasarca present, 3+ pitting edema bilateral lower limbs HEENT: PERRLA, pupils bilaterally equal and reactive Chest: Normal vesicular breath sounds, no added sounds, equal good air entry bilaterally CVS: S1-S2 regular, no murmurs, no tachycardia, no gallops, no rubs Abdomen: Soft, nontender, no organomegaly, bowel sounds present Neuro: No focal deficits, no facial deformity, AO x3, power 5/5 in all limbs Extremities: Multiple petechial rash over lower body and tenderness lower extremities, arterial ulcers noted in feet, red gangrene on right toes, pulses bilaterally equal and palpable Data : 07/20/21 05:40 07/20/21 05:40 A&P Assessment and plan (1) Bilateral lower leg cellulitis: Status: Acute (2) Ischemic toe ulcer: Status: Acute (3) Physical deconditioning: Status: Acute (4) CKD (chronic kidney disease): Status: Acute (5) Pes planus of both feet: Status: Chronic (6) Peripheral arterial disease: Status: Acute Plan Wet gangrene right toes/bilateral lower limb cellulitis: Recently left AMA on 07/09. For now continue vancomycin and Zosyn. Previous foot culture showed MRSA. Check blood cultures. Lower limb ABIs done earlier this month showed mild peripheral arterial disease bilaterally, mild to moderate diffuse plaques in the iliac and femoral artery bilaterally, possibly occluded right posterior tibial artery. Patient does not want to go for any vascular intervention, he does understand the risk of worsening of cellulitis, sepsis, septic shock and , he does not want to lose his feet at any cost as well, in case he changes his mind he would like to get procedure done at [place] near his niece. Will have to monitor for diarrhea as patient had developed C. difficile on 07/08. No active signs of sepsis currently. CRP elevated but better than on 07/09. Will need to possibly consult podiatry for further evaluation and management. Physical deconditioning: Also present on last admission when he left AMA on 07/09. Multiple falls at home. Unable to take care of himself. Case management alerted. CKD: Stage III-IV. Creatinine baseline. Recent CKD. Extensive work-up during last admission. [place] catheterization. CT abdomen pelvis. Medical reconciliation done for nephrotoxic drugs. Hypertension: Goal blood pressure less than 140/90 mmHg. Continue with amlodipine, hydralazine, metoprolol, clonidine, minoxidil. Type 2 diabetes mellitus: A1c in 2027.4. Repeat A1c. Insulin sliding scale at moderate dose protocol. Continue with home dose of glargine. Cardiac carb consistent diet. Liquids advised for DVT prophylaxis. Protonix OPD prophylaxis. Attestations Medical Necessity Statement*: Requires further hospitalization for management of right gangrene, bilateral lower limb cellulitis while safe discharge planning is sought. Time Spent in Patient Care: Greater than 35 minutes Coding Level of Care Code Acute Concrete Rod Buster for [facility] Fwd Diagnoses Ischemic toe ulcer L97.509 Physical deconditioning R53.81 Bilateral lower leg cellulitis L03.116; L03.115 CKD (chronic kidney disease) N18.9 Pes planus of both feet M21.41; M21.42 Peripheral arterial disease I73.9
--- NOTE | 2021-07-20 14:46 | CTR_ITS ---
PROCEDURE INFORMATION: Exam: CT Abdomen And Pelvis Without Contrast Exam date and time: 07/20/2021 3:34 PM Age: 71 years old Clinical indication: Abnormal findings; Abnormal lab test; Abnormal kidney function lab tests; Patient HX: David/ckd CR 2.1; Additional info: David on ckd TECHNIQUE: Imaging protocol: Computed tomography of the abdomen and pelvis without contrast. Sagittal and coronal reformatted images were created and reviewed. Radiation optimization: All CT scans at this facility use at least one of these dose optimization techniques: automated exposure control; mA and/or kV adjustment per patient size (includes targeted exams where dose is matched to clinical indication); or iterative reconstruction. COMPARISON: CT abdomen pelvis wo con [id number] 11/08/2019 12:32 PM RADIATION DOSE METRICS: Total DLP (mGy-cm): 1928.3 FINDINGS: Limitations: Evaluation of solid organs and vasculature is limited without intravenous contrast. Lungs: Visualized lungs are clear. Pleural spaces: No pleural effusion. Heart: Visualized portions of the heart are mildly enlarged. Mild atherosclerotic calcification in the visualized coronary arteries. Calcification of the aortic valve. Liver: The liver is unremarkable. Gallbladder and bile ducts: The gallbladder is unremarkable. No biliary ductal dilatation. The gallbladder is unremarkable. No biliary ductal dilatation. Pancreas: The pancreas is unremarkable. No pancreatic ductal dilatation. The pancreas is unremarkable. No pancreatic ductal dilatation. Spleen: The spleen is unremarkable. Adrenal glands: The right and left adrenal glands are unremarkable. Indeterminate focus in the right adrenal gland. Hounsfield units show density greater than expected for an adenoma. This measures 1.8 x 1.3 cm, this is new compared 11/08/2019. The left adrenal gland is unremarkable. Kidneys and ureters: The right and left kidneys are unremarkable. The right and left ureters are unremarkable. Two small cysts in the right kidney. The larger measures 1.4 cm, previously measured 1.2 cm (series 2, image 44). Indeterminate hyperdense focus in the right kidney. Hounsfield units show density greater than expected for simple fluid. This measures 2.0 x 2.5 cm, previously measured 1.6 x 1.6 cm (series 2, image 51). Stable subcentimeter hypodense focus in the left kidney that is too small to characterize, however likely represents a small cyst. The right and left ureters are unremarkable. Stomach and bowel: Numerous diverticula in the sigmoid colon. No evidence for diverticulitis. Increased fecal content in the colon. No acute abnormality in the small bowel. Appendix: The appendix is visualized and is unremarkable. No findings to suggest acute appendicitis. Intraperitoneal space: No free intraperitoneal air. No ascites. No loculated fluid collections to suggest an abscess. Arteries: Moderate atherosclerotic changes in the visualized arteries. No evidence for aortic aneurysm. Lymph nodes: No lymphadenopathy. Urinary bladder: The bladder is unremarkable. Reproductive: Stable nonspecific parenchymal calcifications in the prostate gland. Bones/joints: Degenerative changes in the spine, sacroiliac joints, and hips. Mild spinal canal stenosis at L2-L3, L4-L5, and L5-S1. Moderate spinal canal stenosis at L3-L4. Multilevel foraminal stenosis of varying severity in the visualized spine. Soft tissues: No acute abnormality in the extra-abdominal soft tissues. CT/CT abdomen pelvis wo con [id number] IMPRESSION: 1. No acute abnormality in the abdomen or pelvis. 2. Increase in size of an hyperdense focus in the right kidney. Recommend follow-up ultrasound or MRI on a nonemergent basis to rule out the possibility of a renal mass. 3. New indeterminate focus in the right adrenal gland. If the patient has no cancer history, then consider follow-up non-emergent adrenal CT or resection. If the patient has a history of cancer, then consider biopsy or PET/CT. (Reference: Kurt) 4. Two small right renal cysts, the larger is increased in size. 5. Sigmoid diverticulosis. No evidence for diverticulitis. 6. Incidental/nonacute findings are listed in the report. COMMENTS: Consistent with the [employer]'s Incidental Findings Committee white paper (J Am Narayan Radiol 2018): Any incidental renal lesion less than 1 cm or classified as too small to characterize, or any incidental cystic renal lesion characterized as simple-appearing, is likely benign. No follow-up imaging is recommended for these lesions per consensus recommendations based on imaging criteria. REFERENCES: Kurt JEFF et al. Management of Incidental Adrenal Masses: A White Paper of the ACR Incidental Findings Committee. J Am Narayan Radiol. 2017;14(8):6985-6034.
[2021-07-20 15:38] LABS: Thyroid Stimulating Hormone 2.86 uIU/mL (0.27-4.20)
[2021-07-20 17:08] LABS: Glucose Point of Care 233 mg/dL (70-110)
[2021-07-20] MEDS: sodium bicarbonate 50 MEQ in sodium chloride 0.45% 1,000 ML 100 MEQ IV (18:09)
[2021-07-20] MEDS: atorvastatin 40 mg Tablet 20 MG PO (18:11)
[2021-07-20] MEDS: sodium polystyrene sulfonate 15 gm/60 mL Btl PO (18:12)
[2021-07-20] MEDS: tamsulosin 0.4 mg Capsule PO (18:14)
[2021-07-20 20:47] LABS: Blood Urea Nitrogen 44 mg/dL (8-23); Calcium 8.7 mg/dL (8.5-10.5); Carbon Dioxide 19 mmol/L (22-29); Chloride 99 mmol/L (98-107); Glucose 108 mg/dL (65-115); Osmolality Calculated 284 mOsm/kg (285-295); Sodium 131 mmol/L (136-145)
[2021-07-20 20:56] LABS: Anion Gap 18.2 (5-19)
[2021-07-20 20:57] LABS: Potassium 5.2 mmol/L (3.5-5.1)
[2021-07-20] MEDS: insulin glargine 100 units/1 mL 5 UNIT SUBCUT (22:05)
[2021-07-20 22:12] LABS: Glucose Point of Care 159 mg/dL (70-110)
[2021-07-20] MEDS: vancomycin 1,500 MG/300 ML PIGGYBACK 200 MG IV (22:23)
[2021-07-21] VITALS (8 sets, daily range): BP systolic 108–145; BP diastolic 63–80; PULSE 59–90; RESP 16–18; TEMP 36.4–36.9; O2SAT 96–98
[2021-07-21] MEDS: piperacillin-tazobactam 3.375 GM in sodium chloride 0.9% (plus) 50 ML IV (01:34)
[2021-07-21] MEDS: sodium bicarbonate 50 MEQ in sodium chloride 0.45% 1,000 ML 100 MEQ IV ×3 (05:12→23:11)
[2021-07-21 05:30] LABS: Basophils # 0.1 10^3/uL (0.0-0.1); Basophils % 0.5 %; Eosinophils # 0.2 10^3/uL (0.0-0.8); Eosinophils % 2.3 %; Hematocrit 34.7 % (42.0-52.0); Hemoglobin 11.3 g/dL (11.7-16.6); Lymphocytes # 1.8 10^3/uL (0.8-4.8); Lymphocytes % 19.3 %; Mean Corpuscular HGB Conc 32.6 g/dL (30.0-36.0); Mean Platelet Volume 10.3 fL (7.4-10.4); Monocytes # 0.6 10^3/uL (0.2-0.9); Monocytes % 6.1 %; Neutrophils # 6.79 10^3/uL (1.8-7.7); Neutrophils % 71.2 %; Nucleated Red Blood Cells % 0 %; Platelet Count 212 10^3/cmm (130-400); Red Cell Distribution Width 14.4 % (12.1-15.1); White Blood Count 9.5 10^3/uL (4.0-10.0)
[2021-07-21 05:51] LABS: Alanine Aminotransferase 13 U/L (0-41); Albumin Level 3.3 g/dL (3.5-5.2); Alkaline Phosphatase 102 IU/L (40-130); Anion Gap 16.6 (5-19); Aspartate Amino Transferase 14 U/L (0-40); Blood Urea Nitrogen 41 mg/dL (8-23); Calcium 8.5 mg/dL (8.5-10.5); Carbon Dioxide 23 mmol/L (22-29); Chloride 97 mmol/L (98-107); Chol HDL Ratio 3.05 mg/dL (1.0-5.00); Cholesterol 119 mg/dL (0-200); Globulin 3.1 g/dL (1.3-4.6); Glucose 175 mg/dL (65-115); HDL Cholesterol 39 mg/dL (60-100); LDL Cholesterol Calculated 52 mg/dL (50-129); Osmolality Calculated 288 mOsm/kg (285-295); Potassium 4.6 mmol/L (3.5-5.1); Sodium 132 mmol/L (136-145); Total Bilirubin 0.6 mg/dL (0.15-1.2); Total Protein 6.4 g/dL (6.6-8.7); Triglycerides 139 mg/dL (0-150); VLDL Cholestrol Calculation 28 mg/dL (0-30)
[2021-07-21 05:52] LABS: Estmated Average Glucose 180; Hemoglobin A1C 7.9 % (4.0-6.0)
[2021-07-21 07:07] LABS: Glucose Point of Care 183 mg/dL (70-110)
[2021-07-21] MEDS: folic acid 1 mg Tablet PO (08:32)
[2021-07-21] MEDS: amlodipine 10 mg Tablet PO (08:32)
[2021-07-21] MEDS: hyDRALAzine 25 mg Tablet 50 MG PO ×3 (08:32→20:39)
[2021-07-21] MEDS: finasteride 5 mg Tablet PO (08:32)
[2021-07-21] MEDS: minoxidil 10 mg Tablet 5 MG PO (08:32)
[2021-07-21] MEDS: pantoprazole DR 40 mg Tablet PO (08:32)
[2021-07-21] MEDS: metoprolol tartrate 50 mg Tablet PO ×2 (08:32→18:11)
[2021-07-21] MEDS: pregabalin 75 mg Capsule PO ×3 (08:32→18:11)
[2021-07-21] MEDS: apixaban 5 mg Tablet 2.5 MG PO ×2 (08:32→18:11)
[2021-07-21] MEDS: tamsulosin 0.4 mg Capsule PO ×2 (08:32→18:11)
[2021-07-21] MEDS: sennosides 8.6 mg Tablet PO (08:32)
[2021-07-21] MEDS: insulin lispro 100 unit/1 mL SUBCUT ×4 (08:33→20:40)
[2021-07-21] MEDS: piperacillin-tazobactam 3.375 GM in sodium chloride 0.9% (plus) 100 ML IV ×2 (10:27→18:57)
[2021-07-21 11:20] LABS: Glucose Point of Care 190 mg/dL (70-110)
--- NOTE | 2021-07-21 12:14 | P.PN_ITS ---
Subjective Subjective: Documents overnight. Patient denies any nausea, pain, headache. Laying comfortably in bed on examination. Remains on room air. Blood pressure better controlled. Hemodynamically stable and afebrile. Vitals/I&O/Wt Last Vital Signs Temp 98.5 F 07/21/21 04:00 Pulse 60 07/21/21 08:03 Resp 16 07/21/21 08:03 BP 139/80 07/21/21 07:37 Pulse Ox 97 07/21/21 08:03 07/20/21 07/21/21 07/21/21 22:59 06:59 14:59 Intake Total 540.1 / 2360.1 1400 / 3760.1 240 / 240 Output Total 550 / 1150 3 / 1153 Balance -9.9 / 1210.1 1397 / 2607.1 240 / 240 Weight last 48 hrs Weight 145.15 kg Weight 137.438 kg Physical Exam Narrative: General: No acute distress, AO x3, morbidly obese anasarca present, 3+ pitting edema bilateral lower limbs HEENT: PERRLA, pupils bilaterally equal and reactive Chest: Normal vesicular breath sounds, no added sounds, equal good air entry bilaterally CVS: S1-S2 regular, no murmurs, no tachycardia, no gallops, no rubs Abdomen: Soft, nontender, no organomegaly, bowel sounds present Neuro: No focal deficits, no facial deformity, AO x3, power 5/5 in all limbs Extremities: Multiple petechial rash over lower body and tenderness lower extremities, arterial ulcers noted in feet, red gangrene on right toes, pulses bilaterally equal and palpable Data : 07/21/21 05:10 07/21/21 05:10 Micro: Microbiology 07/20/21 15:08 Blood Culture - Preliminary Blood SPECIMEN COLLECTED 07/20/21 15:02 Blood Culture - Preliminary Blood SPECIMEN COLLECTED A&P Assessment and plan (1) Bilateral lower leg cellulitis: Status: Acute (2) Ischemic toe ulcer: Status: Acute (3) Physical deconditioning: Status: Acute (4) CKD (chronic kidney disease): Status: Acute (5) Pes planus of both feet: Status: Chronic (6) Peripheral arterial disease: Status: Acute Plan Wet gangrene right toes/bilateral lower limb cellulitis: Recently left AMA on 07/09. For now continue vancomycin and Zosyn. Previous foot culture showed MRSA. Check blood cultures. Lower limb ABIs done earlier this month showed mild peripheral arterial disease bilaterally, mild to moderate diffuse plaques in the iliac and femoral artery bilaterally, possibly occluded right posterior tibial artery. Patient does not want to go for any vascular intervention, he does understand the risk of worsening of cellulitis, sepsis, septic shock and , he does not want to lose his feet at any cost as well, in case he changes his mind he would like to get procedure done at [place] near his niece. Will have to monitor for diarrhea as patient had developed C. difficile on 07/08. No active signs of sepsis currently. CRP elevated but better than on 07/09. Will need to possibly consult podiatry for further evaluation and management. Physical deconditioning: Also present on last admission when he left AMA on 07/09. Multiple falls at home. Unable to take care of himself. Case management alerted. CKD: Stage III-IV. Creatinine baseline. Recent CKD. Extensive work-up during last admission. S[place] catheterization. CT abdomen pelvis. Medical reconciliation done for nephrotoxic drugs. Hypertension: Goal blood pressure less than 140/90 mmHg. Continue with amlodipine, hydralazine, metoprolol, clonidine, minoxidil. Type 2 diabetes mellitus: A1c in 2027.4. Repeat A1c. Insulin sliding scale at moderate dose protocol. Continue with home dose of glargine. Cardiac carb consistent diet. Liquids advised for DVT prophylaxis. Protonix OPD prophylaxis. Plan for day: Continue with vancomycin and Zosyn. Continue with normal saline at 50 cc/h. Monitor CMP. Patient declining Santo catheter placement. Monitor urine output. Continue to monitor blood pressures. Holding off on Imdur for now. Awaiting placement. Physical therapy. Out of bed to chair. Attestations Medical Necessity Statement*: Requires further hospitalization for management of Shania gangrene, bilateral lower limb cellulitis, CKD stage III while safe discharge planning is sought. 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 Diagnoses Bilateral lower leg cellulitis L03.116; L03.115 Ischemic toe ulcer L97.509 Physical deconditioning R53.81 CKD (chronic kidney disease) N18.9 Pes planus of both feet M21.41; M21.42 Peripheral arterial disease I73.9
[2021-07-21] MEDS: oxyCODONE 5 mg IR Tab/Cap PO (14:30)
[2021-07-21 16:57] LABS: Glucose Point of Care 189 mg/dL (70-110)
[2021-07-21] MEDS: atorvastatin 40 mg Tablet 20 MG PO (18:10)
[2021-07-21] MEDS: insulin glargine 100 units/1 mL 5 UNIT SUBCUT (20:40)
[2021-07-21 22:37] LABS: Vancomycin Trough 13.3 ug/mL (10-15)
[2021-07-21] MEDS: vancomycin 1,500 MG/300 ML PIGGYBACK 200 MG IV (23:09)
[2021-07-22] VITALS (9 sets, daily range): BP systolic 115–133; BP diastolic 64–75; PULSE 64–84; RESP 13–20; TEMP 36.4–37.3; O2SAT 95–97
[2021-07-22] MEDS: piperacillin-tazobactam 3.375 GM in sodium chloride 0.9% (plus) 100 ML IV ×3 (00:43→18:13)
[2021-07-22 03:23] LABS: Basophils % 0.5 %; Eosinophils # 0.3 10^3/uL (0.0-0.8); Eosinophils % 3.5 %; Hematocrit 30.8 % (42.0-52.0); Hemoglobin 10.1 g/dL (11.7-16.6); Lymphocytes # 1.5 10^3/uL (0.8-4.8); Lymphocytes % 17.9 %; Mean Corpuscular HGB Conc 32.8 g/dL (30.0-36.0); Mean Corpuscular Hemoglobin 28.9 pg (28.0-34.0); Monocytes # 0.7 10^3/uL (0.2-0.9); Monocytes % 8.1 %; Neutrophils # 5.97 10^3/uL (1.8-7.7); Neutrophils % 69.6 %; Nucleated Red Blood Cells % 0 %; Platelet Count 168 10^3/cmm (130-400); Red Cell Distribution Width 14.5 % (12.1-15.1); White Blood Count 8.6 10^3/uL (4.0-10.0)
[2021-07-22 03:42] LABS: Alanine Aminotransferase 11 U/L (0-41); Alkaline Phosphatase 83 IU/L (40-130); Anion Gap 17.2 (5-19); Aspartate Amino Transferase 14 U/L (0-40); Blood Urea Nitrogen 35 mg/dL (8-23); Carbon Dioxide 25 mmol/L (22-29); Chloride 100 mmol/L (98-107); Globulin 2.8 g/dL (1.3-4.6); Glucose 134 mg/dL (65-115); Osmolality Calculated 296 mOsm/kg (285-295); Potassium 4.2 mmol/L (3.5-5.1); Sodium 138 mmol/L (136-145); Total Bilirubin 0.5 mg/dL (0.15-1.2); Total Protein 5.8 g/dL (6.6-8.7)
[2021-07-22 06:47] LABS: Glucose Point of Care 159 mg/dL (70-110)
[2021-07-22] MEDS: tamsulosin 0.4 mg Capsule PO ×2 (08:31→18:12)
[2021-07-22] MEDS: insulin lispro 100 unit/1 mL SUBCUT ×4 (08:31→21:14)
[2021-07-22] MEDS: finasteride 5 mg Tablet PO (08:31)
[2021-07-22] MEDS: metoprolol tartrate 50 mg Tablet PO ×2 (08:32→18:12)
[2021-07-22] MEDS: folic acid 1 mg Tablet PO (08:32)
[2021-07-22] MEDS: apixaban 5 mg Tablet 2.5 MG PO ×2 (08:33→18:12)
[2021-07-22] MEDS: amlodipine 10 mg Tablet PO (08:33)
[2021-07-22] MEDS: hyDRALAzine 25 mg Tablet 50 MG PO ×3 (08:33→21:14)
[2021-07-22] MEDS: pregabalin 75 mg Capsule PO ×2 (08:33→18:12)
[2021-07-22] MEDS: pantoprazole DR 40 mg Tablet PO (08:34)
[2021-07-22] MEDS: minoxidil 10 mg Tablet 5 MG PO (09:05)
--- NOTE | 2021-07-22 11:29 | P.PN_ITS ---
Subjective Subjective: Patient was seen and examined this morning , was complaining of pain in the bilateral lower extremity. Medications: Medication Review Details: Generic Name Dose Route Start Last Admin Trade Name Pravinq PRN Reason Stop Dose Admin Amlodipine Besylat e 10 mg 07/20/21 09:00 07/22/21 08:33 Amlodipine 10 Mg Tablet PO 10 mg DAILY LC Administration Apixaban 2.5 mg 07/20/21 09:00 07/22/21 08:33 Apixaban 5 Mg Ta blet PO 2.5 mg BID LC Administration Atorvastatin Calci um 20 mg 07/20/21 18:00 07/21/21 18:10 Atorvastatin 40 Mg Tablet PO 20 mg QPM LC Administration Clonidine HCl 1 patch 07/20/21 02:00 07/20/21 18:21 Clonidine 0.3 Mg /24 Hr Patch TRANSDERMA Not Given Q7D LC Finasteride 5 mg 07/20/21 09:00 07/22/21 08:31 Finasteride 5 Mg Tablet PO 5 mg DAILY LC Administration Folic Acid 1 mg 07/20/21 09:00 07/22/21 08:32 Folic Acid 1 Mg Tablet PO 1 mg DAILY LC Administration Furosemide 40 mg 07/20/21 06:00 07/20/21 06:19 Furosemide 40 Mg Tablet PO 40 mg QAM LC Administration Hydralazine HCl 50 mg 07/20/21 09:00 07/22/21 08:33 Hydralazine 25 M g Tablet PO 50 mg TID LC Administration Vancomycin/PEG/NAD A/Lysine/Water 1,500 mg in 300 m ls @ 200 mls/hr 07/20/21 23:00 07/22/21 00:39 Vancocin IV Infused Q24H LC Infusion Piperacillin Sod/T azobactam 100 mls @ 25 mls/ hr 07/21/21 09:30 07/22/21 08:30 Sod 3.375 gm/ So dium Chloride IV 25 mls/hr Q8H LC Administration Protocol Insulin Glargine 5 unit 07/20/21 21:00 07/21/21 20:40 Insulin Glargine 100 Units/1 Ml SUBCUT 5 unit BEDTIME LC Administration Insulin Human Lisp ro 0 unit 07/20/21 18:00 07/22/21 08:31 Insulin Lispro 1 00 Unit/1 Ml SUBCUT 4 unit WM&BEDTIME LC Administration Protocol Metoprolol Tartrat e 50 mg 07/20/21 09:00 07/22/21 08:32 Metoprolol Tartr ate 50 Mg Tablet PO 50 mg BID LC Administration Minoxidil 5 mg 07/20/21 09:00 07/22/21 09:05 Minoxidil 10 Mg Tablet PO 5 mg DAILY LC Administration Oxycodone HCl 5 mg 07/20/21 00:57 07/21/21 14:30 Oxycodone 5 Mg I r Tab/Cap PO 5 mg TID PRN Administration Pain Pantoprazole Sodiu m 40 mg 07/20/21 09:00 07/22/21 08:[address] 40 Mg Tablet PO 40 mg DAILY LC Administration Pregabalin 75 mg 07/20/21 09:00 07/22/21 08:33 Pregabalin 75 Mg Capsule PO 75 mg BID LC Administration Senna 8.6 mg 07/20/21 09:00 07/22/21 08:35 Sennosides 8.6 M g Tablet PO Not Given DAILY [facility] Tamsulosin HCl 0.4 mg 07/20/21 18:00 07/22/21 08:31 Tamsulosin 0.4 M g Capsule PO 0.4 mg BID LC Administration Vitals/I&O/Wt Last Vital Signs Temp 97.5 F L 07/22/21 11:07 Pulse 70 07/22/21 11:07 Resp 13 07/22/21 11:07 BP 121/65 07/22/21 11:07 Pulse Ox 97 07/22/21 11:07 07/21/21 07/22/21 07/22/21 22:59 06:59 14:59 Intake Total 240 / 2147.121 0830 / 2998.333 1260 / 1260 Output Total 880 / 880 Balance 240 / 1638.333 480 / 2118.333 1260 / 1260 Physical Exam Const: COMMON NORMALS: patient oriented x3 HENMT: COMMON NORMALS: normocephalic and atraumatic HEAD & SCALP: normocephalic and atraumatic Eye: GENERAL EYE: appearance normal, both eyes and all related structures Chest: CHEST: Yes Symmetrical chest wall rise Resp: COMMON NORMALS: normal respiratory effort, No retractions, No use of accessory muscles and clear to auscultation bilaterally EFFORT & INSPECTION: Yes symmetric chest movement AUSCULTATION: clear to auscultation bilaterally Cardio: COMMON NORMALS: regular rate, regular rhythm, S1 normal heart sound present, S2 normal heart sound present, No gallops present (Cardio), No murmurs present (Cardio), No rub (Cardio) and Peripheral pulses 2+ throughout RATE: regular rate RHYTHM: regular rhythm HEART SOUNDS: S1 normal heart sound present and S2 normal heart sound present PERIPHERAL PULSES: Peripheral pulses 2+ throughout GI: COMMON NORMALS: Normal to inspection, nondistended, normoactive bowel sounds present, Soft to palpation and no masses AUSCULTATION: Yes normoactive bowel sounds PALPATION: Yes Soft to palpation RECTAL EXAM: Yes deferred Extremity: COMMON NORMALS: no clubbing, cyanosis or edema and no pedal edema NARRATIVE EXTREMITY EXAM: Right toes with gangrene, right lower extremity dressing is intact and clean, Multiple petechial rash seen left lower extremity. Neuro: COMMON NORMALS: patient oriented x3 Data : 07/22/21 03:12 07/22/21 03:12 Micro: Microbiology 07/20/21 15:08 Blood Culture - Preliminary Blood NEGATIVE TO DATE 07/20/21 15:02 Blood Culture - Preliminary Blood NEGATIVE TO DATE A&P Assessment and plan (1) Bilateral lower leg cellulitis: Status: Acute (2) Ischemic toe ulcer: Status: Acute (3) Physical deconditioning: Status: Acute (4) CKD (chronic kidney disease): Status: Acute (5) Pes planus of both feet: Status: Chronic (6) Peripheral arterial disease: Status: Acute Plan Wet gangrene right toes/bilateral lower limb cellulitis: Monitor ESR CRP Blood culture: NTD Previous foot culture showed MRSA. Lower limb ABIs done earlier this month showed mild peripheral arterial disease bilaterally, mild to moderate diffuse plaques in the iliac and femoral artery bilaterally, possibly occluded right posterior tibial artery. Patient does not want to go for any vascular intervention, he does understand the risk of worsening of cellulitis, sepsis, septic shock and , he does not want to lose his feet at any cost as well, in case he changes his mind he would like to get procedure done at [place] near his niece. Patient has a podiatry outpatient appointment in July with Dr. Farmer, Dr. Farmer was reached out today He is unavailable, have consulted general surgery. For now continue vancomycin and Zosyn. Recently left AMA on 07/09. Physical deconditioning: Also present on last admission when he left AMA on 07/09. Multiple falls at home. Unable to take care of himself. Case management alerted. CKD: Stage III-IV. Creatinine baseline. Recent CKD. CT abdomen pelvis. No hydronephrosis. Continue to monitor BMP Monitor intake output charting Avoid nephrotoxic's Extensive work-up during last admission. Hypertension: Goal blood pressure less than 140/90 mmHg. Continue with amlodipine, hydralazine, metoprolol, clonidine, minoxidil. Type 2 diabetes mellitus: A1c in 2027.4. Repeat A1c. Insulin sliding scale at moderate dose protocol. Continue with home dose of glargine. Cardiac carb consistent diet. Liquids advised for DVT prophylaxis. Protonix OPD prophylaxis. Attestations Medical Necessity Statement*: Patient is still in hospital for IV antibiotics, for management of Wet gangrene. Time Spent in Patient Care: Greater than 35 minutes (>than 50% of time spent in counselling and/or direct pt care on unit) . Coding Level of Care Code Acute Correctional Sergeant for [facility] Fwd Exam Comprehensive Diagnoses Bilateral lower leg cellulitis L03.116; L03.115 Ischemic toe ulcer L97.509 Physical deconditioning R53.81 CKD (chronic kidney disease) N18.9 Pes planus of both feet M21.41; M21.42 Peripheral arterial disease I73.9
[2021-07-22 11:31] LABS: Glucose Point of Care 233 mg/dL (70-110)
--- NOTE | 2021-07-22 12:30 | PC.SOCIAL ---
IMM update IMM updated with patient. Copy Pg 2 provided. Verbalized an understanding. Initialled, dated, timed, and placed in chart.
[2021-07-22 17:31] LABS: Glucose Point of Care 179 mg/dL (70-110)
[2021-07-22] MEDS: atorvastatin 40 mg Tablet 20 MG PO (18:12)
[2021-07-22 20:54] LABS: Glucose Point of Care 208 mg/dL (70-110)
[2021-07-22] MEDS: insulin glargine 100 units/1 mL 5 UNIT SUBCUT (21:14)
[2021-07-22] MEDS: vancomycin 1,500 MG/300 ML PIGGYBACK 200 MG IV (23:09)
[2021-07-23] VITALS (8 sets, daily range): BP systolic 105–139; BP diastolic 62–72; PULSE 56–89; RESP 13–24; TEMP 36.4–37.3; O2SAT 94–98
[2021-07-23] MEDS: piperacillin-tazobactam 3.375 GM in sodium chloride 0.9% (plus) 100 ML IV ×2 (01:39→08:23)
[2021-07-23 06:31] LABS: Glucose Point of Care 216 mg/dL (70-110)
[2021-07-23 06:52] LABS: Glucose Point of Care 149 mg/dL (70-110)
[2021-07-23] MEDS: pantoprazole DR 40 mg Tablet PO (08:21)
[2021-07-23] MEDS: metoprolol tartrate 50 mg Tablet PO ×2 (08:21→17:32)
[2021-07-23] MEDS: sennosides 8.6 mg Tablet PO (08:21)
[2021-07-23] MEDS: finasteride 5 mg Tablet PO (08:21)
[2021-07-23] MEDS: pregabalin 75 mg Capsule PO ×2 (08:21→17:33)
[2021-07-23] MEDS: folic acid 1 mg Tablet PO (08:21)
[2021-07-23] MEDS: insulin lispro 100 unit/1 mL SUBCUT ×4 (08:21→21:13)
[2021-07-23] MEDS: hyDRALAzine 25 mg Tablet 50 MG PO (08:21)
[2021-07-23] MEDS: amlodipine 10 mg Tablet PO (08:21)
[2021-07-23] MEDS: tamsulosin 0.4 mg Capsule PO ×2 (08:21→17:33)
[2021-07-23] MEDS: apixaban 5 mg Tablet 2.5 MG PO ×2 (08:23→17:33)
[2021-07-23] MEDS: minoxidil 10 mg Tablet 5 MG PO (08:23)
[2021-07-23 10:55] LABS: Glucose Point of Care 182 mg/dL (70-110)
--- NOTE | 2021-07-23 15:18 | PM.PN ---
Subjective Subjective: Patient was seen and examined this morning, currently has developed, macular erythematous rash throughout the back chest upper and lower extremities, which is itchy, no fever. Medications: Medication Review Details: Generic Name Dose Route Start Last Admin Trade Name Shaun PRN Reason Stop Dose Admin Amlodipine Besylat e 10 mg 07/20/21 09:00 07/23/21 08:21 Amlodipine 10 Mg Tablet PO 10 mg DAILY LC Administration Apixaban 2.5 mg 07/20/21 09:00 07/23/21 08:23 Apixaban 5 Mg Ta blet PO 2.5 mg BID CL Administration Atorvastatin Calci um 20 mg 07/20/21 18:00 07/22/21 18:12 Atorvastatin 40 Mg Tablet PO 20 mg QPM LC Administration Clonidine HCl 1 patch 07/20/21 02:00 07/20/21 18:21 Clonidine 0.3 Mg /24 Hr Patch TRANSDERMA Not Given Q7D LC Finasteride 5 mg 07/20/21 09:00 07/23/21 08:21 Finasteride 5 Mg Tablet PO 5 mg DAILY LC Administration Folic Acid 1 mg 07/20/21 09:00 07/23/21 08:21 Folic Acid 1 Mg Tablet PO 1 mg DAILY LC Administration Furosemide 40 mg 07/20/21 06:00 07/20/21 06:19 Furosemide 40 Mg Tablet PO 40 mg QAM LC Administration Hydralazine HCl 50 mg 07/20/21 09:00 07/23/21 14:16 Hydralazine 25 M g Tablet PO Not Given TID LC Insulin Glargine 5 unit 07/20/21 21:00 07/22/21 21:14 Insulin Glargine 100 Units/1 Ml SUBCUT 5 unit BEDTIME LC Administration Insulin Human Lisp ro 0 unit 07/20/21 18:00 07/23/21 12:49 Insulin Lispro 1 00 Unit/1 Ml SUBCUT 6 unit WM&BEDTIME LC Administration Protocol Metoprolol Tartrat e 50 mg 07/20/21 09:00 07/23/21 08:21 Metoprolol Tartr ate 50 Mg Tablet PO 50 mg BID LC Administration Minoxidil 5 mg 07/20/21 09:00 07/23/21 08:23 Minoxidil 10 Mg Tablet PO 5 mg DAILY LC Administration Oxycodone HCl 5 mg 07/20/21 00:57 07/21/21 14:30 Oxycodone 5 Mg I r Tab/Cap PO 5 mg TID PRN Administration Pain Pregabalin 75 mg 07/22/21 18:00 07/23/21 08:21 Pregabalin 75 Mg Capsule PO 75 mg BID LC Administration Senna 8.6 mg 07/20/21 09:00 07/23/21 08:21 Sennosides 8.6 M g Tablet PO 8.6 mg DAILY LC Administration Tamsulosin HCl 0.4 mg 07/20/21 18:00 07/23/21 08:21 Tamsulosin 0.4 M g Capsule PO 0.4 mg BID LC Administration Vitals/I&O/Wt Last Vital Signs Temp 99.2 F 07/23/21 12:00 Pulse 73 07/23/21 12:00 Resp 13 07/23/21 12:00 BP 105/62 07/23/21 12:00 Pulse Ox 96 07/23/21 12:00 07/23/21 07/23/21 07/23/21 06:59 14:59 22:59 Intake Total 500 / 2680 460 / 460 Balance 500 / 1480 460 / 460 Physical Exam Const: COMMON NORMALS: patient oriented x3 HENMT: COMMON NORMALS: normocephalic and atraumatic HEAD & SCALP: normocephalic and atraumatic Resp: COMMON NORMALS: clear to auscultation bilaterally EFFORT & INSPECTION: Yes symmetric chest movement AUSCULTATION: clear to auscultation bilaterally Cardio: COMMON NORMALS: regular rate, regular rhythm, S1 normal heart sound present, S2 normal heart sound present, No gallops present (Cardio), No murmurs present (Cardio), No rub (Cardio) and Peripheral pulses 2+ throughout RATE: regular rate RHYTHM: regular rhythm HEART SOUNDS: S1 normal heart sound present and S2 normal heart sound present PERIPHERAL PULSES: Peripheral pulses 2+ throughout GI: COMMON NORMALS: Normal to inspection, nondistended, normoactive bowel sounds present, Soft to palpation, non-tender, No hepatosplenomegaly present and no masses AUSCULTATION: Yes normoactive bowel sounds PALPATION: Yes Soft to palpation and Yes No hepatosplenomegaly present RECTAL EXAM: Yes deferred Extremity: NARRATIVE EXTREMITY EXAM: Right toes with gangrene, Multiple petechial rash seen left lower extremity. Neuro: COMMON NORMALS: patient oriented x3 Skin: OTHER: Acute blanching macular erythematous rash present at the back, extremities. Data : 07/22/21 03:12 07/22/21 03:12 A&P Assessment and plan (1) CKD (chronic kidney disease): Status: Acute (2) Bilateral lower leg cellulitis: Status: Acute (3) Peripheral arterial disease: Status: Acute Plan Assessment: Wet gangrene right toes/bilateral lower limb cellulitis: Monitor ESR CRP Blood culture: NTD Previous foot culture showed MRSA. Lower limb ABIs done earlier this month showed mild peripheral arterial disease bilaterally, mild to moderate diffuse plaques in the iliac and femoral artery bilaterally, possibly occluded right posterior tibial artery. Patient does not want to go for any vascular intervention, he does understand the risk of worsening of cellulitis, sepsis, septic shock and , he does not want to lose his feet at any cost as well, in case he changes his mind he would like to get procedure done at [place] near his niece. Patient has a podiatry outpatient appointment in July with Dr. Farmer, Dr. Farmer was reached out today He is unavailable, have consulted general surgery. He was on vancomycin and Zosyn, has been discontinued secondary to development of likely drug-related rash. Currently on doxycycline and levofloxacin. Dressing with Hydrofera Blue. Recently left AMA on 07/09. CKD: Stage III-IV.? Creatinine baseline.? Recent CKD. CT abdomen pelvis.? No hydronephrosis. Continue to monitor BMP Monitor intake output charting Avoid nephrotoxic's Extensive work-up during last admission. #S/p recent pacemaker placement : For symptomatic bradycardia #History of atrial fibrillation: Rate well controlled Continue metoprolol tartrate 50 mg p.o. twice daily Continue Eliquis #Purpuric rash in bilateral lower extremities: REMI profile rheumatology Cryoglobulin Complement levels ESR's CRP Rheumatoid factor SPEP UPEP Serum immunofixation Hep C antibody: Negative Hepatitis B surface antigen Hepatitis B surface antibody Hepatitis B core antibody total #Acute blanching macular erythematous rash: Patient has developed acutely blanching macular erythematous rash, which is itchy, present at the back Bilateral upper extremities, chest, as well as bilateral lower extremities. Likely secondary to antibiotics (most likely secondary to vancomycin, appearance is similar to red man syndrome): Vancomycin slow infusion can be done but for now we will discontinue both vancomycin and Zosyn. Pepcid IV, Benadryl, if needed will use the steroids. #Diabetes: Lantus 5 units subcu at bedtime SSI Monitor fingerstick glucose Carb consistent diet Hypertension: Goal blood pressure less than 140/90 mmHg. Continue with amlodipine, metoprolol, clonidine, minoxidil. Hydralazine has been discontinued as the blood pressure has been soft. Physical deconditioning: Also present on last admission when he left AMA on 07/09. Multiple falls at home. Unable to take care of himself. Currently plan is for SNF placement Attestations Medical Necessity Statement*: Patient is to be in hospital for monitoring of generalized rash. Time Spent in Patient Care: Greater than 35 minutes (>than 50% of time spent in counselling and/or direct pt care on unit). 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 Fwd Diagnoses CKD (chronic kidney disease) N18.9 Bilateral lower leg cellulitis L03.116; L03.115 Peripheral arterial disease I73.9
[2021-07-23] MEDS: famotidine 20 mg/2 mL INJ IVP (15:34)
[2021-07-23] MEDS: doxycycline 100 MG in sodium chloride 0.9% (plus) 100 ML IV (15:35)
--- NOTE | 2021-07-23 16:16 | PM.CONSULT ---
Providers/Reason For Consult Consulting Physician/Specialty*: General Surgery Dr. Caba Reason for Consult*: Right foot wound Attending Physician: Myron Gonzalez MD Primary Care Provider: Jessica Bui MD History of Present Illness History of Present Illness Giles Guillaume is a 71 year old male who was admitted to the hospital for recurrent falls and worsening redness of his feet. Information has been obtained from patient's chart as he is not very awake today though he follows commands. Patient has history of A. fib, on chronic articulate coagulation has peripheral vascular disease and had developed cellulitis and swelling of the bilateral feet with right greater than left. The wounds were being covered with Xeroform Review of Systems General: Reports: ROS unobtainable due to mental status Medications/Allergies Home Medications Medication Instructions Recorded Confirmed Last Taken Type oxycodone 10 mg tablet 5 - 10 mg PO TID PRN 06/25/21 07/19/21 Unknown History pentoxifylline 400 mg 400 mg PO BID 06/25/21 07/19/21 Unknown History tablet,extended release pregabalin 150 mg capsule (Lyrica) 150 mg PO BID 06/25/21 07/19/21 Unknown History amlodipine 10 mg tablet 10 mg PO DAILY 30 Days #30 tab 07/04/21 07/19/21 Unknown Rx apixaban 5 mg tablet (Eliquis) 5 mg PO BID 30 Days #60 tab 07/04/21 07/19/21 06/25/21 Rx cholecalciferol (vitamin D3) 50 2,000 unit PO QAM 30 Days #30 tab 07/04/21 07/19/21 06/25/21 Rx mcg (2,000 unit) tablet (Vitamin D3) clonidine 0.3 mg/24 hr weekly 1 patch TRANSDERMAL Q7D 30 Days #4 07/04/21 07/19/21 Unknown Rx transdermal patch ea finasteride 5 mg tablet 5 mg PO DAILY 30 Days #30 tab 07/04/21 07/19/21 10/31/19 Rx folic acid 1 mg tablet 1 mg PO DAILY 30 Days #30 tab 07/04/21 07/19/21 Unknown Rx hydralazine 25 mg tablet 50 mg PO TID 30 Days #180 tab 07/04/21 07/19/21 Unknown Rx hydrochlorothiazide 25 mg tablet 25 mg PO DAILY 30 Days #30 tab 07/04/21 07/19/21 Unknown Rx insulin aspart U-100 100 unit/mL See Rx Instructions .ROUTE 07/04/21 07/19/21 Unknown Rx (3 mL) subcutaneous pen (Novolog .COMPLEX #15 ml Flexpen U-100 Insulin aspart) insulin glargine 100 unit/mL (3 5 unit (0.05 mL) SUBCUT BEDTIME #0 07/04/21 07/19/21 06/24/21 Rx mL) subcutaneous pen ml isosorbide mononitrate 60 mg 120 mg PO DAILY 30 Days #60 tab 07/04/21 07/19/21 Unknown Rx tablet,extended release 24 hr minoxidil 10 mg tablet 5 mg PO DAILY 30 Days #30 tab 07/04/21 07/19/21 Unknown Rx multivitamin 1 tab PO DAILY 30 Days #30 tab 07/04/21 07/19/21 06/25/21 Rx multivitamin with folic acid 400 1 tab PO DAILY 30 Days tab 07/04/21 07/19/21 Unknown Rx mcg tablet (Thera) pantoprazole 40 mg tablet,delayed 40 mg PO DAILY 30 Days #30 tab 07/04/21 07/19/21 Unknown Rx release potassium chloride 20 mEq 40 meq PO DAILY #120 tab 07/04/21 07/19/21 06/25/21 Rx tablet,extended release rosuvastatin 10 mg tablet 10 mg PO QPM 30 Days #30 tab 07/04/21 07/19/21 11/07/19 Rx tamsulosin 0.4 mg capsule 0.4 mg PO BEDTIME 30 Days #30 cap 07/04/21 07/19/21 06/24/21 Rx thiamine mononitrate (vit B1) 100 100 mg PO DAILY 30 Days #30 tab 07/04/21 07/19/21 Unknown Rx mg tablet (Vitamin B-1 (mononitrate)) furosemide 80 mg tablet (Lasix) 40 mg PO QAM PRN 30 Days #30 tab 07/09/21 07/19/21 06/25/21 Rx imiquimod 5 % topical cream packet 1 applic TOPICAL DAILY 07/19/21 07/19/21 Unknown History ketorolac 0.5 % eye drops 1 drp OPHTHALMIC (EYE) QID 07/19/21 07/19/21 Unknown History metoprolol tartrate 100 mg tablet 50 mg PO BID 07/19/21 07/19/21 Unknown History polyethylene glycol 3350 17 17 g PO DAILY 07/19/21 07/19/21 Unknown History gram/dose oral powder prednisolone acetate 1 % eye 1 drp OPHTHALMIC (EYE) TID 07/19/21 07/19/21 Unknown History drops,suspension psyllium 1 tsp PO BID 07/19/21 07/19/21 Unknown History sennosides 8.6 mg tablet 8.6 mg PO DAILY 07/19/21 07/19/21 Unknown History sodium chloride 0.9 % See Rx Instructions .ROUTE .COMPLEX 07/19/21 07/19/21 Unknown History spironolactone 50 mg tablet 50 mg PO BID 07/19/21 07/19/21 Unknown History Allergies Allergy/AdvReac Type Severity Reaction Status Date / Time aspirin Allergy ALGY-Anaphy Verified 07/19/21 18:47 laxis carvedilol AdvReac diarrhea Verified 06/25/21 12:22 hydralazine AdvReac vomiting Verified 06/25/21 12:22 Current Medications Generic Name Dose Route Start Last Admin Trade Name Pravinq PRN Reason Stop Dose Admin Amlodipine Besylate 10 mg 07/20/21 09:00 07/23/21 08:21 Amlodipine 10 Mg Tablet PO 10 mg DAILY LC Administration Apixaban 2.5 mg 07/20/21 09:00 07/23/21 08:23 Apixaban 5 Mg Tablet PO 2.5 mg BID LC Administration Atorvastatin Calcium 20 mg 07/20/21 18:00 07/22/21 18:12 Atorvastatin 40 Mg Tablet PO 20 mg QPM LC Administration Clonidine HCl 1 patch 07/20/21 02:00 07/20/21 18:21 Clonidine 0.3 Mg/24 Hr Patch TRANSDERMA Not Given Q7D LC Famotidine 20 mg 07/23/21 15:00 07/23/21 15:34 Famotidine 20 Mg/2 Ml Inj IVP 20 mg Q12H LC Administration Finasteride 5 mg 07/20/21 09:00 07/23/21 08:21 Finasteride 5 Mg Tablet PO 5 mg DAILY LC Administration Folic Acid 1 mg 07/20/21 09:00 07/23/21 08:21 Folic Acid 1 Mg Tablet PO 1 mg DAILY LC Administration Furosemide 40 mg 07/20/21 06:00 07/20/21 06:19 Furosemide 40 Mg Tablet PO 40 mg QAM LC Administration Doxycycline Hyclate 100 mg/ 100 mls @ 100 mls/hr 07/23/21 15:00 07/23/21 15:35 Sodium Chloride IV 100 mls/hr Q12H LC Administration Protocol Insulin Glargine 5 unit 07/20/21 21:00 07/22/21 21:14 Insulin Glargine 100 Units/1 Ml SUBCUT 5 unit BEDTIME LC Administration Insulin Human Lispro 0 unit 07/20/21 18:00 07/23/21 12:49 Insulin Lispro 100 Unit/1 Ml SUBCUT 6 unit WM&BEDTIME LC Administration Protocol Metoprolol Tartrate 50 mg 07/20/21 09:00 07/23/21 08:21 Metoprolol Tartrate 50 Mg Tablet PO 50 mg BID LC Administration Minoxidil 5 mg 07/20/21 09:00 07/23/21 08:23 Minoxidil 10 Mg Tablet PO 5 mg DAILY LC Administration Oxycodone HCl 5 mg 07/20/21 00:57 07/21/21 14:30 Oxycodone 5 Mg Ir Tab/Cap PO 5 mg TID PRN Administration Pain Pregabalin 75 mg 07/22/21 18:00 07/23/21 08:21 Pregabalin 75 Mg Capsule PO 75 mg BID LC Administration Senna 8.6 mg 07/20/21 09:00 07/23/21 08:21 Sennosides 8.6 Mg Tablet PO 8.6 mg DAILY LC Administration Tamsulosin HCl 0.4 mg 07/20/21 18:00 07/23/21 08:21 Tamsulosin 0.4 Mg Capsule PO 0.4 mg BID LC Administration PFSH Acute PFSH: Medical History Abnormal nuclear stress test Accelerated hypertension Acute kidney injury Atrial fibrillation Chronic, history of bradycardia with beta blockers, on eliquis Atrial fibrillation BMI 40.0-44.9, adult BPH NOS w/o ur obs/LUTS Bradycardia Calculus of proximal ureter Chronic anticoagulation eliquis Chronic diastolic heart failure Chronic kidney disease Congestive heart failure Coronary artery disease Evaluated in [place], patient reports 55% narrowing unknown vessel no stent or angioplasty done CVA (cerebral vascular accident) residual right weakness Diabetes mellitus, type II Diabetic neuropathy associated with type 2 diabetes mellitus Hyperkalemia Hyperlipidemia Hypertension Lumbar foraminal stenosis Nicotine dependence, chewing tobacco, with other nicotine-induced disorders Obesity BMI-42 kg/m2 Obstructive sleep apnea not on treatment by choice Osteoarthritis PAD (peripheral artery disease) PVD (peripheral vascular disease) Renal calculus, right Rhabdomyolysis Squamous cell carcinoma in situ Temporary transvenous cardiac pacemaker present Surgical History No pertinent past surgical history Status post cardiac pacemaker procedure Family History Mother , 87 Diabetes CAD (coronary artery disease) Hypertension Father , 60 No problems noted. Social History Smoking and tobacco status: current every day smoker pipe Pipes smoked per week: 1 Years smoked pipe: 54 and smokeless tobacco Smokeless tobacco user: chewing tobacco Alcohol intake: former Year of sobriety/quit date alcohol: 26 y Former alcohol use details: heavy use, 5 DWI's Household members: none Housing: House Marital status: service: Yes Current occupational status: retired Vitals/I&O/Wt Last Vital Signs Temp 99.2 F 07/23/21 12:00 Pulse 73 07/23/21 12:00 Resp 13 07/23/21 12:00 BP 105/62 07/23/21 12:00 Pulse Ox 96 07/23/21 12:00 07/23/21 07/23/21 07/23/21 06:59 14:59 22:59 Intake Total 500 / 2680 460 / 460 Balance 500 / 1480 460 / 460 Physical Exam Narrative: HEENT: Normocephalic Eye: Sclera /conjunctiva normal Abdomen: Soft to palpation Neurological: Oriented to place person and time Skin: Intact, right foot has significant edema with areas of skin breakdown on all 5 toes, has excoriation secondary to drainage Data : 07/22/21 03:12 07/22/21 03:12 A&P Assessment and plan (1) Bilateral lower leg cellulitis: 71-year-old male with peripheral vascular disease, atrial fibrillation on chronic anticoagulation with bilateral lower extremity swelling. Patient is skin breakdown on all 5 toes on his right foot and I have therefore recommended Hydrofera Blue dressings given the extent of drainage. At this point he does not have any significant necrotic tissue requiring surgical debridement. Status: Acute Consult Attestations Medical Necessity Statement: As per attending physician Coding Level of Care Code Acute Supervisor [employer] for [facility] Fwd Diagnoses Bilateral lower leg cellulitis L03.116; L03.115
[2021-07-23 16:55] LABS: Glucose Point of Care 203 mg/dL (70-110)
[2021-07-23] MEDS: diphenhydrAMINE 25 mg Capsule PO (17:32)
[2021-07-23] MEDS: atorvastatin 40 mg Tablet 20 MG PO (17:33)
[2021-07-23 20:16] LABS: Glucose Point of Care 194 mg/dL (70-110)
[2021-07-23] MEDS: insulin glargine 100 units/1 mL 5 UNIT SUBCUT (21:15)
[2021-07-24] VITALS (8 sets, daily range): BP systolic 109–153; BP diastolic 52–75; PULSE 74–85; RESP 16–19; TEMP 36.6–36.9; O2SAT 94–98
[2021-07-24] MEDS: doxycycline 100 MG in sodium chloride 0.9% (plus) 100 ML IV ×2 (03:00→15:26)
[2021-07-24] MEDS: famotidine 20 mg/2 mL INJ IVP ×2 (03:00→15:27)
[2021-07-24 05:09] LABS: Basophils % 0.3 %; Eosinophils # 0.4 10^3/uL (0.0-0.8); Eosinophils % 6.6 %; Hemoglobin 10.8 g/dL (11.7-16.6); Lymphocytes # 0.9 10^3/uL (0.8-4.8); Lymphocytes % 13.6 %; Mean Corpuscular HGB Conc 32.7 g/dL (30.0-36.0); Mean Corpuscular Volume 88.5 fl (80-94); Mean Platelet Volume 10.5 fL (7.4-10.4); Monocytes # 0.3 10^3/uL (0.2-0.9); Monocytes % 5.3 %; Neutrophils # 4.74 10^3/uL (1.8-7.7); Neutrophils % 73.9 %; Nucleated Red Blood Cells % 0 %; Platelet Count 134 10^3/cmm (130-400); Red Blood Count 3.73 10^6/uL (4.1-5.3); Red Cell Distribution Width 14.2 % (12.1-15.1); White Blood Count 6.4 10^3/uL (4.0-10.0)
[2021-07-24 05:13] LABS: Erythrocyte Sedimentation Rate 11 mm/hr (0-10)
[2021-07-24 05:29] LABS: Alanine Aminotransferase 12 U/L (0-41); Albumin Level 3.4 g/dL (3.5-5.2); Alkaline Phosphatase 81 IU/L (40-130); Anion Gap 15.9 (5-19); Aspartate Amino Transferase 17 U/L (0-40); Blood Urea Nitrogen 29 mg/dL (8-23); C Reactive Protein 4.2 mg/L (0.0-4.9); Calcium 8.1 mg/dL (8.5-10.5); Carbon Dioxide 24 mmol/L (22-29); Chloride 103 mmol/L (98-107); Complement C3 113 mg/dL (90-180); Globulin 2.8 g/dL (1.3-4.6); Glucose 149 mg/dL (65-115); Osmolality Calculated 297 mOsm/kg (285-295); Potassium 3.9 mmol/L (3.5-5.1); Sodium 139 mmol/L (136-145); Total Bilirubin 0.5 mg/dL (0.15-1.2); Total Protein 6.2 g/dL (6.6-8.7)
[2021-07-24 05:53] LABS: Hepatitis B Core AB, Total Reactive (Nonreactive); Hepatitis B Surface AB 10.4 (11.5-1000); Hepatitis B Surface Antigen Non-Reactive (Nonreactive)
[2021-07-24 06:39] LABS: Glucose Point of Care 144 mg/dL (70-110)
--- NOTE | 2021-07-24 09:06 | PC.SOCIAL ---
IMM Updated Updated pt on IMM. No questions voiced. Provided pt a copy. Initialed, dated, & timed copy in chart.
[2021-07-24] MEDS: finasteride 5 mg Tablet PO (09:51)
[2021-07-24] MEDS: metoprolol tartrate 50 mg Tablet PO ×2 (09:51→17:27)
[2021-07-24] MEDS: folic acid 1 mg Tablet PO (09:51)
[2021-07-24] MEDS: pregabalin 75 mg Capsule PO ×2 (09:52→17:27)
[2021-07-24] MEDS: tamsulosin 0.4 mg Capsule PO ×2 (09:52→17:27)
--- NOTE | 2021-07-24 09:52 | P.PN_ITS ---
Subjective Subjective: Patient was seen and examined this morning, complaining of, itching at the rash site, the rash has not progressed but is coleasing likely in the phase of resolution, has been afebrile, complaining of sleepiness when he takes Benadryl. Medications: Medication Review Details: Generic Name Dose Route Start Last Admin Trade Name Shaun PRN Reason Stop Dose Admin Amlodipine Besylat e 10 mg 07/20/21 09:00 07/23/21 08:21 Amlodipine 10 Mg Tablet PO 10 mg DAILY LC Administration Apixaban 2.5 mg 07/20/21 09:00 07/23/21 08:23 Apixaban 5 Mg Ta blet PO 2.5 mg BID LC Administration Atorvastatin Calci um 20 mg 07/20/21 18:00 07/22/21 18:12 Atorvastatin 40 Mg Tablet PO 20 mg QPM LC Administration Clonidine HCl 1 patch 07/20/21 02:00 07/20/21 18:21 Clonidine 0.3 Mg /24 Hr Patch TRANSDERMA Not Given Q7D LC Finasteride 5 mg 07/20/21 09:00 07/23/21 08:21 Finasteride 5 Mg Tablet PO 5 mg DAILY LC Administration Folic Acid 1 mg 07/20/21 09:00 07/23/21 08:21 Folic Acid 1 Mg Tablet PO 1 mg DAILY LC Administration Furosemide 40 mg 07/20/21 06:00 07/20/21 06:19 Furosemide 40 Mg Tablet PO 40 mg QAM LC Administration Hydralazine HCl 50 mg 07/20/21 09:00 07/23/21 14:16 Hydralazine 25 M g Tablet PO Not Given TID LC Insulin Glargine 5 unit 07/20/21 21:00 07/22/21 21:14 Insulin Glargine 100 Units/1 Ml SUBCUT 5 unit BEDTIME LC Administration Insulin Human Lisp ro 0 unit 07/20/21 18:00 07/23/21 12:49 Insulin Lispro 1 00 Unit/1 Ml SUBCUT 6 unit WM&BEDTIME LC Administration Protocol Metoprolol Tartrat e 50 mg 07/20/21 09:00 07/23/21 08:21 Metoprolol Tartr ate 50 Mg Tablet PO 50 mg BID LC Administration Minoxidil 5 mg 07/20/21 09:00 07/23/21 08:23 Minoxidil 10 Mg Tablet PO 5 mg DAILY LC Administration Oxycodone HCl 5 mg 07/20/21 00:57 07/21/21 14:30 Oxycodone 5 Mg I r Tab/Cap PO 5 mg TID PRN Administration Pain Pregabalin 75 mg 07/22/21 18:00 07/23/21 08:21 Pregabalin 75 Mg Capsule PO 75 mg BID LC Administration Senna 8.6 mg 07/20/21 09:00 07/23/21 08:21 Sennosides 8.6 M g Tablet PO 8.6 mg DAILY LC Administration Tamsulosin HCl 0.4 mg 07/20/21 18:00 07/23/21 08:21 Tamsulosin 0.4 M g Capsule PO 0.4 mg BID LC Administration Vitals/I&O/Wt Last Vital Signs Temp 98.4 F 07/24/21 07:12 Pulse 83 07/24/21 08:21 Resp 16 07/24/21 08:21 BP 124/75 07/24/21 07:12 Pulse Ox 97 07/24/21 08:21 07/23/21 07/24/21 07/24/21 22:59 06:59 14:59 Intake Total 697 / 1157 220 / 1377 480 / 480 Balance 697 / 1157 220 / 1377 480 / 480 Physical Exam Const: COMMON NORMALS: patient oriented x3 HENMT: COMMON NORMALS: normocephalic and atraumatic HEAD & SCALP: normoce phalic and atraumatic Eye: COMMON NORMALS: no scleral icterus GENERAL EYE: appearance normal, both eyes and all related structures Chest: COMMONS NORMALS: normal inspection of the chest and normal palpation of entire chest wall CHEST: Yes Symmetrical chest wall rise Resp: COMMON NORMALS: clear to auscultation bilaterally EFFORT & INSPECTION: Yes symmetric chest movement AUSCULTATION: clear to auscultation bilaterally Cardio: COMMON NORMALS: regular rate, regular rhythm, S1 normal heart sound present, S2 normal heart sound present, No gallops present (Cardio), No murmurs present (Cardio), No rub (Cardio) and Peripheral pulses 2+ throughout RATE: regular rate RHYTHM: regular rhythm HEART SOUNDS: S1 normal heart sound present and S2 normal heart sound present PERIPHERAL PULSES: Peripheral pulses 2+ throughout GI: COMMON NORMALS: Normal to inspection, nondistended, normoactive bowel sounds present, Soft to palpation, non-tender, No hepatosplenomegaly present and no masses AUSCULTATION: Yes normoactive bowel sounds PALPATION: Yes Soft to palpation and Yes No hepatosplenomegaly present RECTAL EXAM: Yes deferred Extremity: COMMON NORMALS: no clubbing, cyanosis or edema and no pedal edema NARRATIVE EXTREMITY EXAM: Right toes with gangrene, Multiple petechial rash seen left lower extremity. Neuro: COMMON NORMALS: patient oriented x3 Skin: OTHER: Acute blanching macular erythematous rash present at the back, extremities. Data : 07/24/21 04:48 07/24/21 04:48 A&P Assessment and plan (1) CKD (chronic kidney disease): Status: Acute (2) Bilateral lower leg cellulitis: Status: Acute (3) Peripheral arterial disease: Status: Acute Plan Assessment: Wet gangrene right toes/bilateral lower limb cellulitis: Monitor ESR CRP Blood culture: NTD Previous foot culture showed MRSA. Lower limb ABIs done earlier this month showed mild peripheral arterial disease bilaterally, mild to moderate diffuse plaques in the iliac and femoral artery bilaterally, possibly occluded right posterior tibial artery. Patient does not want to go for any vascular intervention, he does understand the risk of worsening of cellulitis, sepsis, septic shock and , he does not want to lose his feet at any cost as well, in case he changes his mind he would like to get procedure done at [place] near his niece. Patient has a podiatry outpatient appointment in July with Dr. Farmer, Dr. Farmer was reached out today He is unavailable, have consulted general surgery. He was on vancomycin and Zosyn, has been discontinued secondary to development of likely drug-related rash. Currently on doxycycline and levofloxacin. Dressing with Hydrofera Blue. Recently left AMA on 07/09. CKD: Stage III-IV.? Creatinine baseline.? Recent CKD. CT abdomen pelvis.? No hydronephrosis. Continue to monitor BMP Monitor intake output charting Avoid nephrotoxic's Extensive work-up during last admission. #S/p recent pacemaker placement : For symptomatic bradycardia #History of atrial fibrillation: Rate well controlled Continue metoprolol tartrate 50 mg p.o. twice daily Continue Eliquis #Purpuric rash in bilateral lower extremities: REMI profile rheumatology Cryoglobulin Complement levels: C3:113, C4:21, CH 50: ESR's CRP Rheumatoid factor: 10 SPEP: UPEP: Serum immunofixation: Hep C antibody: Negative Hepatitis B surface antigen: Negative Hepatitis B surface antibody: 10.4 Hepatitis B core antibody total: Reactive #Acute blanching macular erythematous rash: Patient has developed acutely blanching macular erythematous rash, which is itchy, present at the back Bilateral upper extremities, chest, as well as bilateral lower extremities. Likely secondary to antibiotics (most likely secondary to vancomycin, appearance is similar to red man syndrome): Vancomycin slow infusion can be done but for now we will discontinue both vancomycin and Zosyn. Pepcid IV, Benadryl, if needed will use the steroids. #Diabetes: Lantus 5 units subcu at bedtime SSI Monitor fingerstick glucose Carb consistent diet Hypertension: Goal blood pressure less than 140/90 mmHg. Continue with amlodipine, metoprolol, clonidine, minoxidil. Hydralazine has been discontinued as the blood pressure has been soft. Physical deconditioning: Also present on last admission when he left AMA on 07/09. Multiple falls at home. Unable to take care of himself. Currently plan is for SNF placement Attestations Medical Necessity Statement*: Patient is to be in hospital for monitoring of macular erythematous rash. Time Spent in Patient Care: Greater than 35 minutes (>than 50% of time spent in counselling and/or direct pt care on unit) . Coding Level of Care Code Acute Humanities Division Chair for [facility] Fwd Exam Comprehensive Diagnoses CKD (chronic kidney disease) N18.9 Bilateral lower leg cellulitis L03.116; L03.115 Peripheral arterial disease I73.9
[2021-07-24] MEDS: minoxidil 10 mg Tablet 5 MG PO (09:53)
[2021-07-24] MEDS: apixaban 5 mg Tablet 2.5 MG PO ×2 (09:54→17:28)
--- NOTE | 2021-07-24 10:28 | PC.CHAP ---
Pastoral Care Encounter/Spiritual Assessment Type of Contact [] Declined threading machine feeder automatic visit [] Patient/Family/Request visit [] Outpatient visit [] Follow-up visit [] Physician referral [] Code/Alert [x] Routine visit [] Staff referral [] Actively dying [] Patient sleeping [] Family support [] [] Out of room [] Palliative care [] [] Receiving care in room [] Pre-surgical visit [] Trauma [] Long length of stay [] ICU visit [] Other: Relational/Emotional Strength [x] Patient feels connected with others/family/visitors/staff [] Distress [] Loneliness/isolation [] Abandonment Spirituality of Patient [x] Person of [place] [x] Attends Latter Day of their [place] [x] Believes in Prayer [] Reads Bible or Orthodoxy materials [] There are Spiritual issues to be addressed Flame Channeler Interventions [x] Prayer [x] Active listening [] Non-anxious presence [x] Spiritual/emotional support [] Crisis/trauma care [] Spiritual counseling [] Bereavement support [] Provided bereavement packet [] Provided Bible/devotional materials [] Provided toy/stuffed animal, coloring book to patient or family member [] Provided Communion [] Anointing/[place] [] Salvation [x] Completed spiritual assessment [] Other: Impact on Illness or Injury [] Angry [] Fearful [] Anxious [] Often cries [] Exhaustion [] Unable to work [] Unable to attend amish [] Unable to walk/stand [] Unable to read [] Unable to drive [] Unable to eat/drink [] Unable to sleep [] Unable to be with family [] Patient intubated [] Other: Summary Time spent with patient 10 min
[2021-07-24 11:01] LABS: Glucose Point of Care 210 mg/dL (70-110)
[2021-07-24] MEDS: insulin lispro 100 unit/1 mL SUBCUT ×3 (11:35→21:53)
[2021-07-24] MEDS: diphenhydrAMINE 25 mg Capsule PO (15:27)
[2021-07-24 16:20] LABS: Glucose Point of Care 245 mg/dL (70-110)
[2021-07-24] MEDS: atorvastatin 40 mg Tablet 20 MG PO (17:27)
[2021-07-24] MEDS: levofloxacin-dextrose 5% 750 mg-150 mL Premix 100 MG IV (17:30)
[2021-07-24 19:58] LABS: Glucose Point of Care 324 mg/dL (70-110)
[2021-07-24] MEDS: insulin glargine 100 units/1 mL 5 UNIT SUBCUT (21:53)
[2021-07-25] VITALS (7 sets, daily range): BP systolic 119–147; BP diastolic 63–71; PULSE 67–82; RESP 16–18; TEMP 36.4–36.9; O2SAT 96–99
[2021-07-25 01:39] LABS: Add Urine Microscopic? NO; Charge for UA Resulting for Rev
[2021-07-25 01:40] LABS: Urine Appearance Clear (CLEAR); Urine Color Yellow (Yellow)
[2021-07-25 01:41] LABS: Bilirubin Urine Neg (Negative); Blood Urine Neg (Negative); Glucose Urine UA Norm (Normal); Ketones Urine 1+ (Negative); Leukocyte Esterase Urine Negative (Negative); Nitrate Urine Negative (Negative); Protein Urine Neg (Negative); Urobilinogen Urine Norm (Negative); pH Urine 5 (5-7)
[2021-07-25] MEDS: famotidine 20 mg/2 mL INJ IVP ×2 (03:13→15:36)
[2021-07-25] MEDS: doxycycline 100 MG in sodium chloride 0.9% (plus) 100 ML IV ×2 (03:14→15:37)
[2021-07-25 03:35] LABS: Hematocrit 33.8 % (42.0-52.0); Hemoglobin 10.8 g/dL (11.7-16.6); Lymphocytes # 0.6 10^3/uL (0.8-4.8); Lymphocytes % 10.8 %; Mean Corpuscular Volume 90.9 fl (80-94); Mean Platelet Volume 10.9 fL (7.4-10.4); Monocytes # 0.1 10^3/uL (0.2-0.9); Monocytes % 1.4 %; Neutrophils # 4.42 10^3/uL (1.8-7.7); Neutrophils % 87.2 %; Nucleated Red Blood Cells % 0 %; Platelet Count 122 10^3/cmm (130-400); Red Blood Count 3.72 10^6/uL (4.1-5.3); Red Cell Distribution Width 14.2 % (12.1-15.1); White Blood Count 5.1 10^3/uL (4.0-10.0)
[2021-07-25 03:56] LABS: Alanine Aminotransferase 14 U/L (0-41); Albumin Level 3.6 g/dL (3.5-5.2); Alkaline Phosphatase 89 IU/L (40-130); Anion Gap 15.3 (5-19); Aspartate Amino Transferase 17 U/L (0-40); Blood Urea Nitrogen 34 mg/dL (8-23); Calcium 9.1 mg/dL (8.5-10.5); Carbon Dioxide 23 mmol/L (22-29); Chloride 101 mmol/L (98-107); Glucose 234 mg/dL (65-115); Osmolality Calculated 295 mOsm/kg (285-295); Potassium 4.3 mmol/L (3.5-5.1); Sodium 135 mmol/L (136-145); Total Bilirubin 0.4 mg/dL (0.15-1.2); Total Protein 6.6 g/dL (6.6-8.7)
[2021-07-25 04:16] LABS: Slide Review Slide Review Perform
[2021-07-25 05:52] LABS: Glucose Point of Care 245 mg/dL (70-110)
[2021-07-25] MEDS: metoprolol tartrate 50 mg Tablet PO ×2 (08:04→18:15)
[2021-07-25] MEDS: insulin lispro 100 unit/1 mL SUBCUT ×4 (08:04→20:33)
[2021-07-25] MEDS: finasteride 5 mg Tablet PO (08:04)
[2021-07-25] MEDS: sennosides 8.6 mg Tablet PO (08:04)
[2021-07-25] MEDS: pregabalin 75 mg Capsule PO ×2 (08:05→18:15)
[2021-07-25] MEDS: folic acid 1 mg Tablet PO (08:05)
[2021-07-25] MEDS: apixaban 5 mg Tablet 2.5 MG PO ×2 (08:05→18:16)
[2021-07-25] MEDS: tamsulosin 0.4 mg Capsule PO ×2 (08:05→18:15)
[2021-07-25] MEDS: amlodipine 5 mg Tablet PO (08:05)
[2021-07-25] MEDS: minoxidil 10 mg Tablet 5 MG PO (09:27)
[2021-07-25 09:37] LABS: PROTEIN, TOTAL 5.3 g/dL (6.1-8.1)
[2021-07-25 11:08] LABS: Glucose Point of Care 328 mg/dL (70-110)
[2021-07-25 14:57] LABS: COMPLEMENT COMPONENT C3C 102 mg/dL (82-185); COMPLEMENT COMPONENT C4C 21 mg/dL (15-53)
--- NOTE | 2021-07-25 16:00 | P.PN_ITS ---
Subjective Subjective: Patient was seen and examined this morning, macular rash is improving, has not progressed, currently coalescing and spreading out, still has itching, he was also complaining of pain in his coccygeal region, has small stage II pressure ulcer, which has been dressed with OPTi foam, right lower extremity is being dressed with Hydrofera Blue. He has been continued on Doxy and levofloxacin. Medications: Medication Review Details: Generic Name Dose Route Start Last Admin Trade Name Pravinq PRN Reason Stop Dose Admin Amlodipine Besylat e 10 mg 07/20/21 09:00 07/23/21 08:21 Amlodipine 10 Mg Tablet PO 10 mg DAILY LC Administration Apixaban 2.5 mg 07/20/21 09:00 07/23/21 08:23 Apixaban 5 Mg Ta blet PO 2.5 mg BID LC Administration Atorvastatin Calci um 20 mg 07/20/21 18:00 07/22/21 18:12 Atorvastatin 40 Mg Tablet PO 20 mg QPM LC Administration Clonidine HCl 1 patch 07/20/21 02:00 07/20/21 18:21 Clonidine 0.3 Mg /24 Hr Patch TRANSDERMA Not Given Q7D LC Finasteride 5 mg 07/20/21 09:00 07/23/21 08:21 Finasteride 5 Mg Tablet PO 5 mg DAILY LC Administration Folic Acid 1 mg 07/20/21 09:00 07/23/21 08:21 Folic Acid 1 Mg Tablet PO 1 mg DAILY LC Administration Furosemide 40 mg 07/20/21 06:00 07/20/21 06:19 Furosemide 40 Mg Tablet PO 40 mg QAM LC Administration Hydralazine HCl 50 mg 07/20/21 09:00 07/23/21 14:16 Hydralazine 25 M g Tablet PO Not Given TID LC Insulin Glargine 5 unit 07/20/21 21:00 07/22/21 21:14 Insulin Glargine 100 Units/1 Ml SUBCUT 5 unit BEDTIME LC Administration Insulin Human Lisp ro 0 unit 07/20/21 18:00 07/23/21 12:49 Insulin Lispro 1 00 Unit/1 Ml SUBCUT 6 unit WM&BEDTIME LC Administration Protocol Metoprolol Tartrat e 50 mg 07/20/21 09:00 07/23/21 08:21 Metoprolol Tartr ate 50 Mg Tablet PO 50 mg BID LC Administration Minoxidil 5 mg 07/20/21 09:00 07/23/21 08:23 Minoxidil 10 Mg Tablet PO 5 mg DAILY LC Administration Oxycodone HCl 5 mg 07/20/21 00:57 07/21/21 14:30 Oxycodone 5 Mg I r Tab/Cap PO 5 mg TID PRN Administration Pain Pregabalin 75 mg 07/22/21 18:00 07/23/21 08:21 Pregabalin 75 Mg Capsule PO 75 mg BID LC Administration Senna 8.6 mg 07/20/21 09:00 07/23/21 08:21 Sennosides 8.6 M g Tablet PO 8.6 mg DAILY LC Administration Tamsulosin HCl 0.4 mg 07/20/21 18:00 07/23/21 08:21 Tamsulosin 0.4 M g Capsule PO 0.4 mg BID LC Administration Vitals/I&O/Wt Last Vital Signs Temp 97.5 F L 07/25/21 12:00 Pulse 67 07/25/21 12:00 Resp 18 07/25/21 12:00 BP 134/65 07/25/21 12:00 Pulse Ox 98 07/25/21 12:00 07/25/21 07/25/21 07/25/21 06:59 14:59 22:59 Intake Total 1300 / 2880 600 / 600 Output Total 900 / 1500 Balance 400 / 1380 600 / 600 Weight last 48 hrs Weight 140.523 kg Physical Exam Const: COMMON NORMALS: patient oriented x3 HENMT: COMMON NORMALS: normocephalic and atraumatic HEAD & SCALP: normocephalic and atraumatic Eye: COMMON NORMALS: no scleral icterus GENERAL EYE: appearance normal, both eyes and all related structures Chest: COMMONS NORMALS: normal inspection of the chest and normal palpation of entire chest wall CHEST: Yes Symmetrical chest wall rise Resp: COMMON NORMALS: clear to auscultation bilaterally EFFORT & INSPECTION: Yes symmetric chest movement AUSCULTATION: clear to auscultation bilaterally Cardio: COMMON NORMALS: regular rate, regular rhythm, S1 normal heart sound present, S2 normal heart sound present, No gallops present (Cardio), No murmurs present (Cardio), No rub (Cardio) and Peripheral pulses 2+ throughout RATE: regular rate RHYTHM: regular rhythm HEART SOUNDS: S1 normal heart sound present and S2 normal heart sound present PERIPHERAL PULSES: Peripheral pulses 2+ throughout GI: COMMON NORMALS: Normal to inspection, nondistended, normoactive bowel sounds present, Soft to palpation, non-tender, No hepatosplenomegaly present and no masses AUSCULTATION: Yes normoactive bowel sounds PALPATION: Yes Soft to palpation and Yes No hepatosplenomegaly present RECTAL EXAM: Yes deferred Extremity: COMMON NORMALS: no clubbing, cyanosis or edema and no pedal edema NARRATIVE EXTREMITY EXAM: Right toes with gangrene, Multiple petechial rash seen left lower extremity. Neuro: COMMON NORMALS: patient oriented x3 Skin: OTHER: Acute blanching macular erythematous rash present at the back, extremities. Data : 07/25/21 02:28 07/25/21 02:28 Micro: Microbiology 07/20/21 15:08 Blood Culture - Final Blood NO GROWTH AFTER 5 DAYS 07/20/21 15:02 Blood Culture - Final Blood NO GROWTH AFTER 5 DAYS A&P Assessment and plan (1) CKD (chronic kidney disease): Status: Acute (2) Bilateral lower leg cellulitis: Status: Acute (3) Peripheral arterial disease: Status: Acute Plan Assessment: Wet gangrene right toes/bilateral lower limb cellulitis: Monitor ESR CRP Blood culture: NTD Previous foot culture showed MRSA. Lower limb ABIs done earlier this month showed mild peripheral arterial disease bilaterally, mild to moderate diffuse plaques in the iliac and femoral artery bi laterally, possibly occluded right posterior tibial artery. Patient does not want to go for any vascular intervention, he does understand the risk of worsening of cellulitis, sepsis, septic shock and , he does not want to lose his feet at any cost as well, in case he changes his mind he would like to get procedure done at [place] near his niece. Patient has a podiatry outpatient appointment in July with Dr. Farmer, Dr. Farmer was reached out today He is unavailable, have consulted general surgery. He was on vancomycin and Zosyn, has been discontinued secondary to development of likely drug-related rash. Currently on doxycycline and levofloxacin. Dressing with Hydrofera Blue. Recently left AMA on 07/09. CKD: Stage III-IV.? Creatinine baseline.? Recent CKD. CT abdomen pelvis.? No hydronephrosis. Continue to monitor BMP Monitor intake output charting Avoid nephrotoxic's Extensive work-up during last admission. #S/p recent pacemaker placement : For symptomatic bradycardia #History of atrial fibrillation: Rate well controlled Continue metoprolol tartrate 50 mg p.o. twice daily Continue Eliquis #Purpuric rash in bilateral lower extremities: REMI profile rheumatology Cryoglobulin Complement levels: C3:113, C4:21, CH 50: ESR's CRP Rheumatoid factor: 10 SPEP: UPEP: Serum immunofixation: Hep C antibody: Negative Hepatitis B surface antigen: Negative Hepatitis B surface antibody: 10.4 Hepatitis B core antibody total: Reactive #Acute blanching macular erythematous rash: Patient has developed acutely blanching macular erythematous rash, which is itchy, present at the back Bilateral upper extremities, chest, as well as bilateral lower extremities. Likely secondary to antibiotics (most likely secondary to vancomycin, appearance is similar to red man syndrome): Vancomycin slow infusion can be done but for now we will discontinue both vancomycin and Zosyn. Pepcid IV, Benadryl, if needed will use the steroids. #Diabetes: Lantus 5 units subcu at bedtime SSI Monitor fingerstick glucose Carb consistent diet Hypertension: Goal blood pressure less than 140/90 mmHg. Continue with amlodipine, metoprolol, clonidine, minoxidil. Hydralazine has been discontinued as the blood pressure has been soft. Physical deconditioning: Also present on last admission when he left AMA on 07/09. Multiple falls at home. Unable to take care of himself. Currently plan is for SNF placement Attestations Medical Necessity Statement*: Patient is still in hospital for management of above defined problem. Time Spent in Patient Care: Greater than 35 minutes (>than 50% of time spent in counselling and/or direct pt care on unit) . Coding Level of Care Code Acute [facility] for [facility] Fwd Diagnoses CKD (chronic kidney disease) N18.9 Bilateral lower leg cellulitis L03.116; L03.115 Peripheral arterial disease I73.9
[2021-07-25 17:19] LABS: Glucose Point of Care 340 mg/dL (70-110)
[2021-07-25] MEDS: levofloxacin-dextrose 5% 750 mg-150 mL Premix 100 MG IV (18:11)
[2021-07-25] MEDS: atorvastatin 40 mg Tablet 20 MG PO (18:14)
[2021-07-25 20:01] LABS: Glucose Point of Care 428 mg/dL (70-110)
[2021-07-25] MEDS: insulin glargine 100 units/1 mL 5 UNIT SUBCUT (20:33)
[2021-07-25] MEDS: diphenhydrAMINE 25 mg Capsule PO (22:19)
[2021-07-26] VITALS: BP 138/67; PULSE 78; RESP 18; TEMP 36.9; O2SAT 97
[2021-07-26 02:28] LABS: Adenovirus Not Detected (NOT DETECT); Chlamydia Pneumoniae Not Detected (NOT DETECT); Coronavirus 229E,HKU1,NL63,OC4 Not Detected (NOT DETECT); Human Metapneumovirus Not Detected (NOT DETECT); Human Rhinovirus/Enterovirus Not Detected (NOT DETECT); Influenza A Not Detected (NOT DETECT); Influenza A H1 Not Detected (NOT DETECT); Influenza A H1-2009 Not Detected (NOT DETECT); Influenza A H3 Not Detected (NOT DETECT); Influenza B Not Detected (NOT DETECT); Mycoplasma Pneumoniae Not Detected (NOT DETECT); Parainfluenza Virus Type 1 Not Detected (NOT DETECT); Parainfluenza Virus Type 2 Not Detected (NOT DETECT); Parainfluenza Virus Type 3 Not Detected (NOT DETECT); Parainfluenza Virus Type 4 Not Detected (NOT DETECT); Respiratory Syncytial Virus A Not Detected (NOT DETECT); Respiratory Syncytial Virus B Not Detected (NOT DETECT); SARS-COV-2 Not Detected (NOT DETECT)
[2021-07-26] MEDS: famotidine 20 mg/2 mL INJ IVP (02:58)
[2021-07-26] MEDS: doxycycline 100 MG in sodium chloride 0.9% (plus) 100 ML IV (02:59)
[2021-07-26 04:00] VITALS: BP 153/66; PULSE 81; RESP 19; TEMP 36.7; O2SAT 900
[2021-07-26 05:56] LABS: Glucose Point of Care 253 mg/dL (70-110)
[2021-07-26 05:58] LABS: Hematocrit 30.9 % (42.0-52.0); Hemoglobin 9.9 g/dL (11.7-16.6); Lymphocytes # 0.8 10^3/uL (0.8-4.8); Lymphocytes % 10.8 %; Mean Corpuscular Hemoglobin 28.9 pg (28.0-34.0); Mean Corpuscular Volume 90.1 fl (80-94); Monocytes # 0.2 10^3/uL (0.2-0.9); Monocytes % 2.3 %; Neutrophils # 6.39 10^3/uL (1.8-7.7); Neutrophils % 86.1 %; Nucleated Red Blood Cells % 0 %; Platelet Count 123 10^3/cmm (130-400); Red Blood Count 3.43 10^6/uL (4.1-5.3); Red Cell Distribution Width 14.4 % (12.1-15.1); White Blood Count 7.4 10^3/uL (4.0-10.0)
[2021-07-26 06:26] LABS: Alanine Aminotransferase 17 U/L (0-41); Albumin Level 3.7 g/dL (3.5-5.2); Alkaline Phosphatase 75 IU/L (40-130); Anion Gap 17.5 (5-19); Aspartate Amino Transferase 15 U/L (0-40); Blood Urea Nitrogen 40 mg/dL (8-23); Calcium 8.1 mg/dL (8.5-10.5); Carbon Dioxide 20 mmol/L (22-29); Chloride 103 mmol/L (98-107); Globulin 2.3 g/dL (1.3-4.6); Glucose 224 mg/dL (65-115); Osmolality Calculated 299 mOsm/kg (285-295); Potassium 4.5 mmol/L (3.5-5.1); Sodium 136 mmol/L (136-145); Total Bilirubin 0.3 mg/dL (0.15-1.2)
[2021-07-26 08:00] VITALS: BP 130/77; PULSE 85; RESP 18; TEMP 36.4; O2SAT 93
[2021-07-26 08:07] LABS: ALBUMIN 3.1 g/dL (3.8-4.8); ALPHA 1 GLOBULIN 0.3 g/dL (0.2-0.3); ALPHA 2 GLOBULIN 0.6 g/dL (0.5-0.9); BETA 1 GLOBULIN 0.4 g/dL (0.4-0.6); BETA 2 GLOBULIN 0.3 g/dL (0.2-0.5); GAMMA GLOBULIN 0.7 g/dL (0.8-1.7)
--- NOTE | 2021-07-26 08:15 | PM.DCS ---
Discharge Providers Date of Admission: 07/19/21 22:34 Date of Discharge: July 26, 2021 Attending Provider at Admission: Nik Douglas MD Attending Provider at Discharge: Myron Gonzalez MD Primary Care Provider: Jessica Bui MD Diagnoses at Discharge Discharge Diagnosis (1) CKD (chronic kidney disease): Status: Acute (2) Bilateral lower leg cellulitis: Status: Acute (3) Peripheral arterial disease: Status: Acute Reason for Visit Reason for Visit: [place] Hospital Course Hospital Course Giles Guillaume is a 71 year old male who has peripheral arterial disease, A. fib, chronic anticoagulation with Eliquis, type 2 diabetes, noncompliant, presented to the hospital with chief complaint of recurrent falls.? Patient stating that he lives alone and is struggling to carry her daily activities.? His home health nurse recommended to come to the ER for further evaluation because of worsening cellulitis of his feet.? Patient has not noticed any temperature, nausea, vomiting, fever, chest pain.? He is endorsing weight gain, worsening of swelling of feet bilaterally, right toes skin is sloughing off, he is denying pain at rest.? His ambulation is limited now he is wheelchair-bound. He was admitted for the management of Wet gangrene right toes/bilateral lower limb cellulitis: He was kept on IV antibiotics Vanco and Zosyn namely, blood cultures were negative, ESR CRP was monitored,Lower limb ABIs done earlier this month showed mild peripheral arterial disease bilaterally, mild to moderate diffuse plaques in the iliac and femoral artery bilaterally, possibly occluded right posterior tibial artery. Patient does not want to go for any vascular intervention, he does understand the risk of worsening of cellulitis, sepsis, septic shock and , he does not want to lose his feet at any cost as well, in case he changes his mind he would like to get procedure done at [facility] near his niece. Patient has a podiatry outpatient appointment in July with Dr. Farmer. 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 For the rash she was also kept on IV Solu-Medrol Pepcid and Benadryl, he is being discharged on prednisone 50 mg p.o. daily for additional 7 days, along with Benadryl and Pepcid. Patient also has purpuric rash in bilateral lower extremity pending work-up:Hep C antibody: Negative, Hepatitis B surface antigen: Negative, Hepatitis B surface antibody: 10.4 Hepatitis B core antibody total: Reactive, Rheumatoid factor: 10, REMI profile rheumatology, pending , Cryoglobulin level pending, Complement levels: C3:113, C4:21, CH 50: SPEP UPEP serum immunofixation pending. Patient was continued to be managed for his other comorbid conditions, for his CKD stage III serum creatinine was at baseline, history of atrial fibrillation heart rate was well controlled he was continued on metoprolol tartrate twice daily, Eliquis for anticoagulation, For his hypertension changes were made to her antihypertensive medications, minoxidil was discontinued, Hydralazine was discontinued, hydrochlorothiazide and spironolactone has been kept on hold for now, Patient has been continued on amlodipine and Imdur for now. Patient has been told to follow-up with his primary care physician, podiatry, as well as wound care as an outpatient. Physical Exam Const: COMMON NORMALS: patient oriented x3 HENMT: COMMON NORMALS: normocephalic and atraumatic HEAD & SCALP: normocephalic and atraumatic Eye: COMMON NORMALS: no scleral icterus GENERAL EYE: appearance normal, both eyes and all related structures Chest: COMMONS NORMALS: normal inspection of the chest and normal palpation of entire chest wall CHEST: Yes Symmetrical chest wall rise Resp: COMMON NORMALS: clear to auscultation bilaterally EFFORT & INSPECTION: Yes symmetric chest movement AUSCULTATION: clear to auscultation bilaterally Cardio: COMMON NORMALS: regular rate, regular rhythm, S1 normal heart sound present, S2 normal heart sound present, No gallops present (Cardio), No murmurs present (Cardio), No rub (Cardio) and Peripheral pulses 2+ throughout RATE: regular rate RHYTHM: regular rhythm HEART SOUNDS: S1 normal heart sound present and S2 normal heart sound present PERIPHERAL PULSES: Peripheral pulses 2+ throughout GI: COMMON NORMALS: Normal to inspection, nondistended, normoactive bowel sounds present, Soft to palpation, non-tender, No hepatosplenomegaly present and no masses AUSCULTATION: Yes normoactive bowel sounds PALPATION: Yes Soft to palpation and Yes No hepatosplenomegaly present RECTAL EXAM: Yes deferred Extremity: COMMON NORMALS: no clubbing, cyanosis or edema and no pedal edema NARRATIVE EXTREMITY EXAM: Right toes with gangrene, Multiple petechial rash seen left lower extremity. Neuro: COMMON NORMALS: patient oriented x3 Skin: OTHER: Acute blanching macular erythematous rash present at the back, extremities improving Discharge Data Studies Completed and Pending Completed Studies During Hospitalization Category Date Time Status CT abdomen pelvis wo con [id number] Routine Cat Scan 07/20/21 14:[address] head wo con* [id number] Stat Cat Scan 07/19/21 17:11 Completed XR chest 1V portable [id number] Stat Exams 07/19/21 15:53 Completed XR pelvis 1-2V* [id number] Stat Exams 07/19/21 16:18 Completed US venous duplex lower extremity bilat [CV venous Ultrasound 07/19/21 17:11 [place] [id number]] Stat Pending at discharge Category Date Time Status REMI SCREEN [REMI Profile Rheumatology] AM LABS Lab 07/24/21 04:48 Results Complement Total (CH50) Routine Lab 07/24/21 04:48 Received Cryoglobulins Qualitative Routine Lab 07/24/21 05:55 Received Immunofixation Serum Routine Lab 07/24/21 04:48 Received Miscellaneous Test Routine Lab 07/24/21 04:48 Received Urine Protein Electrop Random Routine Lab 07/25/21 01:30 Received Radiology Impressions Chest X-Ray 07/19/21 15:53 IMPRESSION: No acute abnormality. Pelvis X-Ray 07/19/21 16:18 IMPRESSION: No acute abnormality. Head CT 07/19/21 17:11 IMPRESSION: No acute intracranial abnormality. Chronic microvascular ischemic changes. Venous Duplex 07/19/21 17:11 IMPRESSION: No evidence of deep vein thrombosis. Abdomen/Pelvis CT 07/20/21 14:46 IMPRESSION: 1. No acute abnormality in the abdomen or pelvis. 2. Increase in size of an hyperdense focus in the right kidney. Recommend follow-up ultrasound or MRI on a nonemergent basis to rule out the possibility of a renal mass. 3. New indeterminate focus in the right adrenal gland. If the patient has no cancer history, then consider follow-up non-emergent adrenal CT or resection. If the patient has a history of cancer, then consider biopsy or PET/CT. (Reference: Kurt) 4. Two small right renal cysts, the larger is increased in size. 5. Sigmoid diverticulosis. No evidence for diverticulitis. 6. Incidental/nonacute findings are listed in the report. COMMENTS: Consistent with the [employer]'s Incidental Findings Committee white paper (J Am Narayan Radiol 2018): Any incidental renal lesion less than 1 cm or classified as too small to characterize, or any incidental cystic renal lesion characterized as simple-appearing, is likely benign. No follow-up imaging is recommended for these lesions per consensus recommendations based on imaging criteria. REFERENCES: Kurt JEFF, et al. Management of Incidental Adrenal Masses: A White Paper of the ACR Incidental Findings Committee. J Am Narayan Radiol. 2017;14(8):5866-2735. ADDENDUM: 07/20/21 3680 Please note the addendum to the original report: Nonobstructing stone in the right kidney measuring 1.0 cm. Urgent results regarding indeterminate right renal and adrenal foci were discussed with KRIS Woody on 07/20/2021 at 4:45 PM CDT. Laboratory Results WBC 7.4 10^3/uL (4.0-10.0) 07/26/21 04:58 RBC 3.43 10^6/uL (4.1-5.3) L 07/26/21 04:58 Hgb 9.9 g/dL (11.7-16.6) L 07/26/21 04:58 Hct 30.9 % (42.0-52.0) L 07/26/21 04:58 MCV 90.1 fl (80-94) 07/26/21 04:58 MCH 28.9 pg (28.0-34.0) 07/26/21 04:58 MCHC 32.0 g/dL (30.0-36.0) 07/26/21 04:58 RDW 14.4 % (12.1-15.1) 07/26/21 04:58 Plt Count 123 10^3/cmm (130-400) L 07/26/21 04:58 MPV 11.0 fL (7.4-10.4) H 07/26/21 04:58 Neut % (Auto) 86.1 % 07/26/21 04:58 Lymph % (Auto) 10.8 % 07/26/21 04:58 [place] % (Auto) 2.3 % 07/26/21 04:58 Eos % (Auto) 0.0 % 07/26/21 04:58 Baso % (Auto) 0.0 % 07/26/21 04:58 Neut # (Auto) 6.39 10^3/uL (1.8-7.7) 07/26/21 04:58 Lymph # (Auto) 0.8 10^3/uL (0.8-4.8) 07/26/21 04:58 [place] # (Auto) 0.2 10^3/uL (0.2-0.9) 07/26/21 04:58 Eos # (Auto) 0.0 10^3/uL (0.0-0.8) 07/26/21 04:58 Baso # (Auto) 0.0 10^3/uL (0.0-0.1) 07/26/21 04:58 Nucleated RBC % (auto) 0 % 07/26/21 04:58 Nucleated RBCs # 0.0 /100WBC 07/26/21 04:58 ESR 11 mm/hr (0-10) H 07/24/21 04:48 ESR Cancelled 07/24/21 04:48 Sodium 136 mmol/L (136-145) 07/26/21 04:58 Potassium 4.5 mmol/L (3.5-5.1) 07/26/21 04:58 Chloride 103 mmol/L (98-107) 07/26/21 04:58 Carbon Dioxide 20 mmol/L (22-29) L 07/26/21 04:58 Anion Gap 17.5 (5-19) 07/26/21 04:58 BUN 40 mg/dL (8-23) H 07/26/21 04:58 Creatinine 1.9 mg/dL (0.7-1.2) H 07/26/21 04:58 GFR Calculation Not Reportable 07/26/21 04:58 Glucose 224 mg/dL (65-115) H 07/26/21 04:58 POC Glucose 253 mg/dL (70-110) H 07/26/21 05:51 Estimat Average Glucose 180 07/21/21 05:10 Hemoglobin A1c 7.9 % (4.0-6.0) H 07/21/21 05:10 Calculated Osmolality 299 mOsm/kg (285-295) H 07/26/21 04:58 Calcium 8.1 mg/dL (8.5-10.5) L 07/26/21 04:58 Total Bilirubin 0.3 mg/dL (0.15-1.2) 07/26/21 04:58 AST 15 U/L (0-40) 07/26/21 04:58 ALT 17 U/L (0-41) 07/26/21 04:58 Alkaline Phosphatase 75 IU/L (40-130) 07/26/21 04:58 Troponin T Baseline 78 ng/L (0-15) H 07/19/21 18:25 Troponin T 120 Minute 88.16 ng/L (0-15) H 07/19/21 19:25 Delta Troponin T 10.16 ABS# (0-10) H* 07/19/21 19:25 Troponin T Hi Sens 6Hr 80.83 ng/L (0-15) H 07/19/21 23:20 Troponin T Hi Sens 6Hr Delta 2.83 ng/L (0-12) 07/19/21 23:20 C-Reactive Protein 4.2 mg/L (0.0-4.9) 07/24/21 04:48 C-Reactive Protein Cancelled 07/24/21 04:48 Total Protein 6.0 g/dL (6.6-8.7) L 07/26/21 04:58 Albumin 3.7 g/dL (3.5-5.2) 07/26/21 04:58 Globulin 2.3 g/dL (1.3-4.6) 07/26/21 04:58 Idgrs-9-Xbytzbhjk 0.3 g/dL (0.2-0.3) 07/24/21 04:48 Jwdal-0-Geikbepeh 0.6 g/dL (0.5-0.9) 07/24/21 04:48 Aunl-4-Esmqrmgp 0.4 g/dL (0.4-0.6) 07/24/21 04:48 Ohlo-9-Dnmoxabg 0.3 g/dL (0.2-0.5) 07/24/21 04:48 Gamma Globulins 0.7 g/dL (0.8-1.7) L 07/24/21 04:48 Abnorm Protein Band 1 Not Reportable 07/24/21 04:48 Triglycerides 139 mg/dL (0-150) 07/21/21 05:10 Triglycerides Cancelled 07/21/21 05:10 Cholesterol 119 mg/dL (0-200) 07/21/21 05:10 Cholesterol Cancelled 07/21/21 05:10 LDL Cholesterol, Calc 52 mg/dL (50-129) 07/21/21 05:10 LDL Cholesterol, Calc Cancelled 07/21/21 05:10 Total VLDL Cholesterol 28 mg/dL (0-30) 07/21/21 05:10 Total VLDL Cholesterol Cancelled 07/21/21 05:10 HDL Cholesterol 39 mg/dL (60-100) L 07/21/21 05:10 HDL Cholesterol Cancelled 07/21/21 05:10 Cholesterol/HDL Ratio 3.05 mg/dL (1.0-5.00) 07/21/21 05:10 Cholesterol/HDL Ratio Cancelled 07/21/21 05:10 Procalcitonin 0.25 ng/mL (0-0.5) 07/19/21 23:20 TSH 2.86 uIU/mL (0.27-4.20) 07/20/21 05:40 Urine Color Yellow (Yellow) 07/25/21 01:30 Urine Appearance Clear (CLEAR) 07/25/21 01:30 Urine pH 5 (5-7) 07/25/21 01:30 Ur Specific [place] 1.020 (1.005-1.030) 07/25/21 01:30 Urine Protein Neg (Negative) 07/25/21 01:30 Urine Glucose (UA) Norm (Normal) 07/25/21 01:30 Urine Ketones 1+ (Negative) H 07/25/21 01:30 Urine Blood Neg (Negative) 07/25/21 01:30 Urine Nitrate Negative (Negative) 07/25/21 01:30 Urine Bilirubin Neg (Negative) 07/25/21 01:30 Urine Urobilinogen Norm mg/dL (Negative) 07/25/21 01:30 Ur Leukocyte Esterase Negative (Negative) 07/25/21 01:30 U Abnormal Prot Band 2 Not Reportable 07/24/21 04:48 U Abnormal Prot Band 3 Not Reportable 07/24/21 04:48 Vancomycin Trough 13.3 ug/mL (10-15) 07/21/21 21:48 Pro Electrophoresis Int See note 07/24/21 04:48 Rheumatoid Factor 10.0 IU/mL (0-14) 07/24/21 04:48 Complement C3 113 mg/dL (90-180) 07/24/21 04:48 Complement C3c 102 mg/dL (82-185) 07/24/21 04:48 Complement C4 21 mg/dL (10-40) 07/24/21 04:48 Complement C4c 21 mg/dL (15-53) 07/24/21 04:48 Coronavirus 229E (PCR) Not detected (NOT DETECT) 07/26/21 00:41 Hep Bs Antigen Non-reactive (Nonreactive) 07/24/21 04:48 Hep Bs Antibody 10.4 (11.5-1000) L 07/24/21 04:48 Hep B Core Total Ab Reactive (Nonreactive) H 07/24/21 04:48 SARS-CoV-2 (PCR) Not detected (NOT DETECT) 07/26/21 00:41 SARS-CoV-2 Ag (Rapid) Cancelled 07/25/21 22:10 Vitals Last Vital Signs Temp 97.6 F 07/26/21 08:00 Pulse 85 07/26/21 08:00 Resp 18 07/26/21 08:00 BP 130/77 07/26/21 08:00 Pulse Ox 93 07/26/21 08:00 Discharge Plan Discharge Patient Disposition: Xfer SNF Condition: Fair Prescriptions: New doxycycline monohydrate 100 mg capsule 100 mg PO BID 7 Days Qty: 14 0RF levofloxacin 500 mg tablet 500 mg PO Q48H 7 Days Qty: 4 0RF Diphen 25 mg tablet 25 mg PO Q6H PRN (Reason: itching) Qty: 30 0RF Pepcid 20 mg tablet 20 mg PO BID Qty: 14 0RF prednisone 50 mg tablet 50 mg PO DAILY 7 Days Qty: 7 0RF Continued pentoxifylline 400 mg Tablet Extended Release 400 mg PO BID 0RF pregabalin [Lyrica] 150 mg Capsule 150 mg PO BID 0RF oxycodone 10 mg Tablet 5 - 10 mg PO TID PRN (Reason: Pain) 0RF isosorbide mononitrate 60 mg Tablet Extended Release 24 Hr 120 mg PO DAILY 30 Days Qty: 60 0RF amlodipine 10 mg Tablet 10 mg PO DAILY 30 Days Qty: 30 0RF pantoprazole 40 mg Tablet,Delayed Release (Dr/Ec) 40 mg PO DAILY 30 Days Qty: 30 0RF folic acid 1 mg Tablet 1 mg PO DAILY 30 Days Qty: 30 0RF clonidine 0.3 mg/24 hr Patch Weekly 1 patch transdermal Q7D 30 Days Qty: 4 0RF multivitamin with folic acid [Thera] 400 mcg Tablet 1 tab PO DAILY 30 Days 0RF multivitamin Tablet 1 tab PO DAILY 30 Days Qty: 30 0RF tamsulosin 0.4 mg capsule 0.4 mg PO BEDTIME 30 Days Qty: 30 0RF finasteride 5 mg tablet 5 mg PO DAILY 30 Days Qty: 30 0RF rosuvastatin 10 mg Tablet 10 mg PO QPM 30 Days Qty: 30 0RF insulin glargine 100 unit/mL (3 mL) Insulin Pen 5 unit SUBCUT BEDTIME Qty: 0 0RF cholecalciferol (vitamin D3) [Vitamin D3] 2,000 unit Tablet 2,000 unit PO QAM 30 Days Qty: 30 0RF Eliquis 5 mg tablet 5 mg PO BID 30 Days Qty: 60 0RF insulin aspart U-100 [Novolog Flexpen U-100 Insulin] 100 unit/mL (3 mL) insulin pen See Rx Instructions .ROUTE .COMPLEX Qty: 15 0RF Rx Instructions: Inject, subcu, 3 times daily, after meals, based on sliding scale provided furosemide [Lasix] 80 mg Tablet 40 mg PO QAM PRN (Reason: Edema) 30 Days Qty: 30 0RF sennosides 8.6 mg Tablet 8.6 mg PO DAILY 0RF metoprolol tartrate 100 mg Tablet 50 mg PO BID 0RF Rx Instructions: HALF TABLET TWICE A DAY ketorolac 0.5 % Drops 1 drp OPHTHALMIC (EYE) QID 0RF prednisolone acetate 1 % Drops,Suspension 1 drp OPHTHALMIC (EYE) TID 0RF psyllium Powder 1 tsp PO BID 0RF Rx Instructions: mix into at least 4 oz water or juice before administering imiquimod 5 % Cream In Packet 1 applic TOPICAL DAILY 0RF sodium chloride 0.9 % Parenteral Solution See Rx Instructions .ROUTE .COMPLEX 0RF Rx Instructions: IRRIGATION DIRECTED polyethylene glycol 3350 17 gram/dose Powder 17 g PO DAILY 0RF Held hydrochlorothiazide 25 mg Tablet 25 mg PO DAILY 30 Days Qty: 30 0RF Hold Instructions: Resume on 08/03/21. potassium chloride 20 mEq tablet extended release 40 meq PO DAILY Qty: 120 3RF Hold Instructions: Resume on 07/28/21. spironolactone 50 mg Tablet 50 mg PO BID 0RF Hold Instructions: Resume on 07/28/21. Discontinued hydralazine 25 mg Tablet 50 mg PO TID 30 Days Qty: 180 0RF minoxidil 10 mg Tablet 5 mg PO DAILY 30 Days Qty: 30 0RF thiamine mononitrate (vit B1) [Vitamin B-1 (mononitrate)] 100 mg Tablet 100 mg PO DAILY 30 Days Qty: 30 0RF Discharge Orders: Discharge Order (Routine); Ordered 07/26/21 Ordered By: Myron Gonzalez Referrals: Jessica Bui MD [Primary Care Provider] - 08/01/21 11:00 am Alex Farmer DPM [Physician] - 08/05/21 9:00 am [facility], [Staff Physician] - 1 week Discharge Diet: Diabetic Discharge Attestations Time Spent in Discharge Care*: greater than 30 min Status at Discharge: Cognitive status at discharge: cognitively intact, Behavioral status at discharge: cooperative, Quality Metrics Clinical Quality Measures [ No reported AMI, CVA or VTE this stay] Coding Level of Care Code Acute Chg FW DC note Exam Comprehensive Diagnoses CKD (chronic kidney disease) N18.9 Bilateral lower leg cellulitis L03.116; L03.115 Peripheral arterial disease I73.9
[2021-07-26] MEDS: sennosides 8.6 mg Tablet PO (08:26)
[2021-07-26] MEDS: folic acid 1 mg Tablet PO (08:26)
[2021-07-26] MEDS: pregabalin 75 mg Capsule PO (08:26)
[2021-07-26] MEDS: apixaban 5 mg Tablet 2.5 MG PO (08:26)
[2021-07-26] MEDS: amlodipine 5 mg Tablet PO (08:26)
[2021-07-26] MEDS: finasteride 5 mg Tablet PO (08:26)
[2021-07-26] MEDS: tamsulosin 0.4 mg Capsule PO (08:26)
[2021-07-26] MEDS: metoprolol tartrate 50 mg Tablet PO (08:26)
[2021-07-26] MEDS: minoxidil 10 mg Tablet 5 MG PO (08:28)
[2021-07-26] MEDS: insulin lispro 100 unit/1 mL SUBCUT (08:32)
[2021-07-26 08:42] VITALS: PULSE 85; RESP 18; O2SAT 93
--- NOTE | 2021-07-26 10:10 | PC.SOCIAL ---
IMM update IMM updated with patient. Copy Pg 2 provided. Verbalized an understanding. Initialled, dated, timed, and placed in chart.
[2021-07-26 10:29] LABS: Creatinine, Random Urine 151 mg/dL (20-320); Protein, Total, Random 14 mg/dL (5-25); Protein/Creatinine Ratio 0.093 (0.022-0.128); Protein/Creatinine Ratio 93 mg/g creat (22-128)
--- NOTE | 2021-07-26 10:37 | PC.NURSE ---
Pt left at 1015, Rn called facility to give report, the facility stated could not take report at this time until pt chart had been reviewed, Rn gave number to call back when ready to take report.
[2021-07-26 11:43] LABS: COMPLEMENT, TOTAL (CH50) >60 U/mL (31-60); Complement Total (CH50) >60 U/mL (31-60)
[2021-07-26 15:32] LABS: THYROID PEROXIDASE ANTIBODIES <1 IU/mL (<9)
[2021-07-26 16:41] LABS: ANA SCREEN, IFA NEGATIVE (NEGATIVE); CENTROMERE B ANTIBODY <1.0 NEG AI (<1.0 NEG); JO-1 ANTIBODY <1.0 NEG AI (<1.0 NEG); RNP ANTIBODY <1.0 NEG AI (<1.0 NEG); SCL-70 ANTIBODY <1.0 NEG AI (<1.0 NEG); SJOGREN'S ANTIBODY (SS-A) <1.0 NEG AI (<1.0 NEG); SM ANTIBODY <1.0 NEG AI (<1.0 NEG); SS-B <1.0 NEG AI (<1.0 NEG)
[2021-07-30 10:32] LABS: Albumin,Urine Random 100 %; Alpha-1-Globulins Urine Random 0 %; Alpha-2-Globulins Urine Random 0 %; Beta-Globulin,Urine Random 0 %; Gamma Globulin,Urine Random 0 %
[2021-07-30 11:36] LABS: DNA AB (DS) CRITHIDIA,IFA NEGATIVE (NEGATIVE)
[2021-07-30 17:47] LABS: Cryoglobulins Qualitative None Detected (None Detected)
== END 2021-07-26 10:30 | disposition skilled nursing facility (03) | DRG 300 ==
LOC: ER 19:57 → MEDSURG 22:58
PROVIDERS: Family Medicine; Student in an Organized Health Care Education/Training Program; Admitting Provider Internal Medicine; Emergency Provider Emergency Medicine; PCP Family Medicine; Visit Provider Internal Medicine
DX: E11.52 Type 2 diabetes mellitus with diabetic peripheral angiopathy with gangrene (principal); L03.116 Cellulitis of left lower limb; L03.115 Cellulitis of right lower limb; I96 Gangrene, not elsewhere classified; I50.30 Unspecified diastolic (congestive) heart failure; I13.0 Hypertensive heart and chronic kidney disease with heart failure and stage 1 through stage 4 chronic kidney disease, or unspecified chronic kidney disease; Z68.41 Body mass index [BMI] 40.0-44.9, adult; E11.621 Type 2 diabetes mellitus with foot ulcer; L97.519 Non-pressure chronic ulcer of other part of right foot with unspecified severity; I48.91 Unspecified atrial fibrillation; Z79.01 Long term (current) use of anticoagulants; R29.6 Repeated falls; E11.22 Type 2 diabetes mellitus with diabetic chronic kidney disease; Z79.4 Long term (current) use of insulin; E11.628 Type 2 diabetes mellitus with other skin complications; N18.30 Chronic kidney disease, stage 3 unspecified; R53.81 Other malaise; L27.0 Generalized skin eruption due to drugs and medicaments taken internally; T36.8X5A Adverse effect of other systemic antibiotics, initial encounter; Z95.0 Presence of cardiac pacemaker; F17.220 Nicotine dependence, chewing tobacco, uncomplicated; F17.290 Nicotine dependence, other tobacco product, uncomplicated; L89.152 Pressure ulcer of sacral region, stage 2; E66.9 Obesity, unspecified; E87.5 Hyperkalemia
CPT/HCPCS: 36415; 36416; 70450; 71045; 72170; 74176; 80048; 80053; 80061; 80202; 81003; 82570; 82595; 82962; 83036; 84145; 84155; 84156; 84165; 84166; 84443; 84484; 85025; 85651; 86140; 86160; 86162; 86235; 86255; 86334; 86376; 86431; 86704; 86706; 87040; 87340; 87426; 87635; 93005; 93970; 96365; 96367; 96372; 96375; 97110; 97116; 97162; 99285; J1815 ×2; J1956; J2543; J2920; J3370; J3490; J7050; J7799

== ENCOUNTER → 2021-08-05 08:22 | Outpatient (BNVA) | payer OTHER, MEDICARE, SELFPAY | PROVIDERS: PCP Family Medicine; Visit Provider Podiatrist Foot & Ankle Surgery | DX: R53.1 Weakness (principal); E11.42 Type 2 diabetes mellitus with diabetic polyneuropathy; M21.371 Foot drop, right foot; L97.511 Non-pressure chronic ulcer of other part of right foot limited to breakdown of skin; L97.521 Non-pressure chronic ulcer of other part of left foot limited to breakdown of skin; F17.200 Nicotine dependence, unspecified, uncomplicated | CPT/HCPCS: 99214; 99215 ==

== ENCOUNTER → 2021-08-06 13:46 | Outpatient (BNVA) | payer OTHER, MEDICARE, SELFPAY | PROVIDERS: PCP Family Medicine; Visit Provider Emergency Medicine | DX: E11.621 Type 2 diabetes mellitus with foot ulcer (principal); L97.521 Non-pressure chronic ulcer of other part of left foot limited to breakdown of skin; I96 Gangrene, not elsewhere classified; L97.421 Non-pressure chronic ulcer of left heel and midfoot limited to breakdown of skin; L89.312 Pressure ulcer of right buttock, stage 2 | CPT/HCPCS: 11042; 87070; 87077; 87176; 87186; 87205; 99212 ==

== ENCOUNTER → 2021-08-20 13:31 | Outpatient (BNVA) | payer OTHER, MEDICARE, SELFPAY | PROVIDERS: PCP Family Medicine; Visit Provider Nurse Practitioner Family | DX: E11.621 Type 2 diabetes mellitus with foot ulcer (principal); L97.521 Non-pressure chronic ulcer of other part of left foot limited to breakdown of skin; I96 Gangrene, not elsewhere classified; L97.421 Non-pressure chronic ulcer of left heel and midfoot limited to breakdown of skin; L89.312 Pressure ulcer of right buttock, stage 2; L97.821 Non-pressure chronic ulcer of other part of left lower leg limited to breakdown of skin | CPT/HCPCS: 11042 ==

== ENCOUNTER → 2021-08-27 10:50 | Outpatient (BNVA) | payer OTHER, MEDICARE, SELFPAY | PROVIDERS: PCP Family Medicine; Visit Provider Nurse Practitioner Family | DX: I96 Gangrene, not elsewhere classified (principal); L89.312 Pressure ulcer of right buttock, stage 2; E11.621 Type 2 diabetes mellitus with foot ulcer; L97.511 Non-pressure chronic ulcer of other part of right foot limited to breakdown of skin | CPT/HCPCS: 99213 ==

== ENCOUNTER → 2021-09-10 13:35 | Outpatient (BNVA) | payer OTHER, MEDICARE, SELFPAY | PROVIDERS: PCP Family Medicine; Visit Provider Nurse Practitioner Family | DX: I96 Gangrene, not elsewhere classified (principal); L89.312 Pressure ulcer of right buttock, stage 2; E11.621 Type 2 diabetes mellitus with foot ulcer; L97.511 Non-pressure chronic ulcer of other part of right foot limited to breakdown of skin | CPT/HCPCS: 11042 ==

== ENCOUNTER → 2021-09-17 13:15 | Outpatient (BNVA) | payer OTHER, MEDICARE, SELFPAY | PROVIDERS: PCP Family Medicine; Visit Provider Nurse Practitioner Family | DX: E11.621 Type 2 diabetes mellitus with foot ulcer (principal); L97.511 Non-pressure chronic ulcer of other part of right foot limited to breakdown of skin; I96 Gangrene, not elsewhere classified | CPT/HCPCS: 11042 ==

== ENCOUNTER → 2021-09-24 10:46 | Outpatient (BNVA) | payer OTHER, MEDICARE, SELFPAY | PROVIDERS: PCP Family Medicine; Visit Provider Nurse Practitioner Family | DX: Z09 Encounter for follow-up examination after completed treatment for conditions other than malignant neoplasm (principal) | CPT/HCPCS: 99212 ==

== ENCOUNTER → 2021-10-01 14:21 | Outpatient (BNVA) | payer OTHER, MEDICARE, SELFPAY | PROVIDERS: PCP Family Medicine; Visit Provider Emergency Medicine | DX: E11.621 Type 2 diabetes mellitus with foot ulcer (principal); L97.512 Non-pressure chronic ulcer of other part of right foot with fat layer exposed; I96 Gangrene, not elsewhere classified | CPT/HCPCS: 11042 ==

== ENCOUNTER → 2021-10-07 12:44 | Outpatient (BNVA) | payer OTHER, SELFPAY | PROVIDERS: PCP Family Medicine; Visit Provider Podiatrist Foot & Ankle Surgery | DX: E11.42 Type 2 diabetes mellitus with diabetic polyneuropathy (principal); L97.511 Non-pressure chronic ulcer of other part of right foot limited to breakdown of skin; L97.521 Non-pressure chronic ulcer of other part of left foot limited to breakdown of skin; M21.371 Foot drop, right foot; R53.1 Weakness | CPT/HCPCS: 99213; 99214 ==

== ENCOUNTER 2021-10-08 06:00 | Outpatient (RCR) | payer OTHER, SELFPAY | END 2021-10-27 23:59 | disposition home or self-care (01) | LOC: SPT 06:00 | PROVIDERS: PCP Family Medicine; Referring Provider Family Medicine; Visit Provider Family Medicine | DX: I96 Gangrene, not elsewhere classified (principal); E11.621 Type 2 diabetes mellitus with foot ulcer; L97.511 Non-pressure chronic ulcer of other part of right foot limited to breakdown of skin; L97.512 Non-pressure chronic ulcer of other part of right foot with fat layer exposed; R54 Age-related physical debility | CPT/HCPCS: 11042; 97110; 97161 ==

== ENCOUNTER → 2021-10-15 08:35 | Outpatient (BNVA) | payer OTHER, SELFPAY | PROVIDERS: PCP Family Medicine; Visit Provider Nurse Practitioner Family | DX: E11.621 Type 2 diabetes mellitus with foot ulcer (principal); L97.511 Non-pressure chronic ulcer of other part of right foot limited to breakdown of skin; I96 Gangrene, not elsewhere classified; L97.512 Non-pressure chronic ulcer of other part of right foot with fat layer exposed | CPT/HCPCS: 99213 ==

== ENCOUNTER → 2021-10-22 08:44 | Outpatient (BNVA) | payer OTHER, SELFPAY | PROVIDERS: PCP Family Medicine; Visit Provider Nurse Practitioner Family | DX: E11.621 Type 2 diabetes mellitus with foot ulcer (principal); L97.511 Non-pressure chronic ulcer of other part of right foot limited to breakdown of skin; I96 Gangrene, not elsewhere classified; L97.512 Non-pressure chronic ulcer of other part of right foot with fat layer exposed | CPT/HCPCS: 11042 ==

== ENCOUNTER 2021-10-28 06:00 | Outpatient (RCR) | payer OTHER, SELFPAY | END 2021-11-27 23:59 | disposition home or self-care (01) | LOC: SPT 06:00 | PROVIDERS: PCP Family Medicine; Visit Provider Family Medicine | DX: I96 Gangrene, not elsewhere classified (principal); E11.621 Type 2 diabetes mellitus with foot ulcer; L97.511 Non-pressure chronic ulcer of other part of right foot limited to breakdown of skin; L97.512 Non-pressure chronic ulcer of other part of right foot with fat layer exposed; R54 Age-related physical debility | CPT/HCPCS: 97110 ==

== ENCOUNTER → 2021-11-05 13:14 | Outpatient (BNVA) | payer OTHER, SELFPAY | PROVIDERS: PCP Family Medicine; Visit Provider Nurse Practitioner Family | DX: Z09 Encounter for follow-up examination after completed treatment for conditions other than malignant neoplasm (principal) | CPT/HCPCS: 99212 ==

== ENCOUNTER → 2021-11-19 12:58 | Outpatient (BNVA) | payer OTHER, SELFPAY | PROVIDERS: PCP Family Medicine; Visit Provider Nurse Practitioner Family | DX: I96 Gangrene, not elsewhere classified (principal); L89.321 Pressure ulcer of left buttock, stage 1 | CPT/HCPCS: 11042 ==

== ENCOUNTER → 2021-11-26 12:58 | Outpatient (BNVA) | payer OTHER, SELFPAY | PROVIDERS: PCP Family Medicine; Visit Provider Nurse Practitioner Family | DX: Z09 Encounter for follow-up examination after completed treatment for conditions other than malignant neoplasm (principal) | CPT/HCPCS: 99213 ==

== ENCOUNTER 2021-11-28 06:00 | Outpatient (RCR) | payer OTHER, SELFPAY | END 2021-12-27 23:59 | disposition home or self-care (01) | LOC: SPT 06:00 | PROVIDERS: PCP Family Medicine; Visit Provider Family Medicine | DX: I96 Gangrene, not elsewhere classified (principal); E11.621 Type 2 diabetes mellitus with foot ulcer; L97.511 Non-pressure chronic ulcer of other part of right foot limited to breakdown of skin; L97.512 Non-pressure chronic ulcer of other part of right foot with fat layer exposed | CPT/HCPCS: 97110 ==

== ENCOUNTER 2021-11-28 13:16 | Outpatient (CLI) | payer OTHER, SELFPAY ==
--- NOTE | 2021-11-28 13:34 | USCV_ITS ---
Giles Guillaume Age: 71 Gender: M : 1950 Exam Date: 11/28/2021 13:49 Ordering Phys: Bessy Holguin DO Technologist: hO Serrano Exam Location: [facility] [place]: HISTORY: PROCEDURES: Bilateral duplex Venous Insufficiency study of the Deep and Superficial systems was carried out according to normal protocol with the patient in supine positon for deep system and dependent position for the superficial system. FINDINGS: All deep veins demonstrated compressibility without evidence of intraluminal thrombus or increased echogenicity. Spectral analysis of Doppler signals demonstrates normal response to compression maneuvers indicating patency without obstruction. Reflux determinations were made with the patient in the dependent position, the weight being on the contralateral leg. Vein measurements and reflux times are listed below were applicable. No notable reflux was seen at this time. The veins were found to be easily compressible with spontaneous blood flow. Non pulsatile flow pattern. CONCLUSIONS No evidence of DVT in the above-mentioned identifiable veins. No significant venous reflux were noted. Normal venous dimensions Dr Refugio Kraus MD [facility] (Electronically Signed) Final Date: 29 November 2021 18:57 S
== END 2021-11-28 13:17 | disposition home or self-care (01) ==
LOC: RAD 13:17
PROVIDERS: PCP Family Medicine; Visit Provider Emergency Medicine
DX: L97.521 Non-pressure chronic ulcer of other part of left foot limited to breakdown of skin (principal); L97.511 Non-pressure chronic ulcer of other part of right foot limited to breakdown of skin
CPT/HCPCS: 93970

== ENCOUNTER → 2021-12-03 13:00 | Outpatient (BNVA) | payer OTHER, SELFPAY | PROVIDERS: PCP Family Medicine; Visit Provider Nurse Practitioner Family | DX: E11.621 Type 2 diabetes mellitus with foot ulcer (principal); L97.511 Non-pressure chronic ulcer of other part of right foot limited to breakdown of skin; I96 Gangrene, not elsewhere classified | CPT/HCPCS: 99212 ==

== ENCOUNTER → 2021-12-17 12:57 | Outpatient (BNVA) | payer OTHER, SELFPAY | PROVIDERS: PCP Family Medicine; Visit Provider Nurse Practitioner Family | DX: Z09 Encounter for follow-up examination after completed treatment for conditions other than malignant neoplasm (principal) | CPT/HCPCS: 99212 ==

== ENCOUNTER 2022-01-16 06:00 | Outpatient (RCR) | payer OTHER, SELFPAY | END 2022-01-27 23:59 | disposition home or self-care (01) | LOC: SPT 06:00 | PROVIDERS: PCP Family Medicine; Visit Provider Family Medicine | DX: M62.81 Muscle weakness (generalized) (principal) | CPT/HCPCS: 97110; 97161 ==

== ENCOUNTER 2022-01-28 06:00 | Outpatient (RCR) | payer OTHER, SELFPAY | END 2022-02-26 23:59 | disposition home or self-care (01) | LOC: SPT 06:00 | PROVIDERS: PCP Family Medicine; Visit Provider Family Medicine | DX: M62.81 Muscle weakness (generalized) (principal) | CPT/HCPCS: 97110; 97530 ==

== ENCOUNTER → 2022-01-30 13:18 | Outpatient (BNVA) | payer OTHER, SELFPAY | PROVIDERS: PCP Family Medicine; Visit Provider Surgery | DX: Z86.010 Personal history of colon polyps (principal) | CPT/HCPCS: 99203; 99213 ==

== ENCOUNTER → 2022-02-10 13:23 | Outpatient (BNVA) | payer OTHER, SELFPAY | PROVIDERS: PCP Family Medicine; Visit Provider Internal Medicine Cardiovascular Disease | DX: I48.91 Unspecified atrial fibrillation (principal); Z79.01 Long term (current) use of anticoagulants; I65.23 Occlusion and stenosis of bilateral carotid arteries; E78.5 Hyperlipidemia, unspecified; R60.0 Localized edema; I13.0 Hypertensive heart and chronic kidney disease with heart failure and stage 1 through stage 4 chronic kidney disease, or unspecified chronic kidney disease; E11.22 Type 2 diabetes mellitus with diabetic chronic kidney disease; F17.220 Nicotine dependence, chewing tobacco, uncomplicated; N18.9 Chronic kidney disease, unspecified; I50.32 Chronic diastolic (congestive) heart failure; Z79.4 Long term (current) use of insulin | CPT/HCPCS: 99214 ==

== ENCOUNTER 2022-02-27 06:00 | Outpatient (RCR) | payer OTHER, SELFPAY | END 2022-03-29 23:59 | disposition home or self-care (01) | LOC: SPT 06:00 | PROVIDERS: PCP Family Medicine; Visit Provider Family Medicine | DX: M62.81 Muscle weakness (generalized) (principal) | CPT/HCPCS: 97110; 97530 ==

== ENCOUNTER → 2022-03-11 09:23 | Outpatient (BNVA) | payer OTHER, SELFPAY | PROVIDERS: PCP Family Medicine; Visit Provider Podiatrist Foot & Ankle Surgery | DX: E11.8 Type 2 diabetes mellitus with unspecified complications (principal); R53.1 Weakness; E11.42 Type 2 diabetes mellitus with diabetic polyneuropathy; M21.371 Foot drop, right foot; Z79.4 Long term (current) use of insulin | CPT/HCPCS: 99214 ==

== ENCOUNTER → 2022-05-22 10:29 | Outpatient (BNVA) | payer OTHER, SELFPAY | PROVIDERS: PCP Family Medicine; Visit Provider Podiatrist Foot & Ankle Surgery | DX: E11.621 Type 2 diabetes mellitus with foot ulcer (principal); L97.521 Non-pressure chronic ulcer of other part of left foot limited to breakdown of skin; Z79.4 Long term (current) use of insulin; E11.8 Type 2 diabetes mellitus with unspecified complications; I73.9 Peripheral vascular disease, unspecified; E11.42 Type 2 diabetes mellitus with diabetic polyneuropathy | CPT/HCPCS: 99214 ==

== ENCOUNTER → 2022-06-18 14:33 | Outpatient (BNVA) | payer OTHER, SELFPAY | PROVIDERS: PCP Family Medicine; Visit Provider Podiatrist Foot & Ankle Surgery | DX: I73.9 Peripheral vascular disease, unspecified (principal); E11.42 Type 2 diabetes mellitus with diabetic polyneuropathy; M21.41 Flat foot [pes planus] (acquired), right foot; M21.42 Flat foot [pes planus] (acquired), left foot; Z79.4 Long term (current) use of insulin | CPT/HCPCS: 99214 ==

== ENCOUNTER 2022-07-30 14:15 | Emergency (ER) | payer OTHER, SELFPAY ==
[2022-07-30 14:18] VITALS: BP 182/83; PULSE 91; RESP 19; TEMP 36.7; O2SAT 95; BMI 43.5
--- NOTE | 2022-07-30 14:46 | ECG_ITS ---
[facility] Test Date: 2022-07-30 Pat Name: Giles Guillaume Department: Room: Gender: Male Gate Supervisor: : 1950 Requested By: Farhat Kyle Order Number: [id number] Shelton MD: Refugio Kraus M.D. Measurements Intervals [place] Rate: 95 P: -49 MA: 236 QRS: -40 QRSD: 177 T: 137 QT: 449 QTc: 567 Interpretive Statements ELECTRONIC VENTRICULAR PACEMAKER ABNORMAL RHYTHM ECG INTERPRETATION BASED ON A DEFAULT AGE OF 40 YEARS Compared to ECG 07/19/2021 22:00:47 Atrial fibrillation no longer present Right bundle-branch block no longer present Myocardial infarct finding no longer present Electronically Signed On 07-31-2022 21:07:14 CDT by Refugio Kraus M.D. [id number] f
--- NOTE | 2022-07-30 14:46 | XR_ITS ---
WS: [id number] XR chest 1V portable [id number] REASON FOR EXAM: CP FINDINGS: Chest is unchanged compared to previous examination 07/19/2021. Cardiac device over the left chest with transverse left subclavian vein lead to the right ventricular apex. Calcification in the aortic arch with mild tortuosity the thoracic aorta. Mild cardiomegaly. Calcified granulomatous disease bilaterally. No active pulmonary parenchymal or pleural disease. 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 Moderate degenerative spondylosis in the mid and lower thor acic spine. XR/XR chest 1V portable [id number] IMPRESSION: Stable abnormal chest without acute abnormality.
[2022-07-30 15:42] LABS: Basophils # 0.1 10^3/uL (0.0-0.1); Basophils % 0.5 %; Eosinophils # 0.1 10^3/uL (0.0-0.8); Eosinophils % 1.2 %; Hematocrit 46.9 % (42.0-52.0); Hemoglobin 15.2 g/dL (11.7-16.6); Lymphocytes # 2.3 10^3/uL (0.8-4.8); Lymphocytes % 20.8 %; Mean Corpuscular HGB Conc 32.4 g/dL (30.0-36.0); Mean Corpuscular Hemoglobin 28.4 pg (28.0-34.0); Mean Corpuscular Volume 87.7 fl (80-94); Mean Platelet Volume 10.5 fL (7.4-10.4); Monocytes # 0.8 10^3/uL (0.2-0.9); Neutrophils # 7.74 10^3/uL (1.8-7.7); Nucleated Red Blood Cells % 0 %; Platelet Count 204 10^3/cmm (130-400); Red Blood Count 5.35 10^6/uL (4.1-5.3); Red Cell Distribution Width 13.1 % (12.1-15.1); White Blood Count 11.1 10^3/uL (4.0-10.0)
[2022-07-30 16:26] LABS: Troponin(5th) Baseline 68 ng/L (0-15)
[2022-07-30 16:36] LABS: Alanine Aminotransferase 18 U/L (0-41); Alkaline Phosphatase 104 U/L (40-130); Aspartate Amino Transferase 25 U/L (0-40); Blood Urea Nitrogen 13 mg/dL (8-23); Calcium 9.4 mg/dL (8.5-10.5); Carbon Dioxide 31 mmol/L (22-29); Chloride 96 mmol/L (98-107); Globulin 2.6 g/dL (1.3-4.6); Glucose 209 mg/dL (65-115); NT Pro B Type Natriuretic Pept 1082 pg/mL (0-125); Osmolality Calculated 296 mOsm/kg (285-295); Sodium 140 mmol/L (136-145); Total Bilirubin 0.6 mg/dL (0.15-1.2); Total Protein 6.6 g/dL (6.6-8.7)
[2022-07-30 16:38] LABS: Anion Gap 16.2 (5-19); Potassium 3.2 mmol/L (3.5-5.1)
--- NOTE | 2022-07-30 17:21 | ECG_ITS ---
[facility] Test Date: 2022-07-30 Pat Name: Giles Guillaume Department: Room: Gender: Male Relocation Services Specialist: : 1950 Requested By: Monico Torres Order Number: [id number] Shelton MD: Refugio Kraus M.D. Measurements Intervals [place] Rate: 82 P: 0 FL: 0 QRS: 74 QRSD: 128 T: 4 QT: 414 QTc: 486 Interpretive Statements ATRIAL FIBRILLATION RIGHT BUNDLE BRANCH BLOCK [120+ ms QRS DURATION, UPRIGHT V1, 40+ ms S IN I/aVL/V4/V5/V6] SEPTAL MYOCARDIAL INFARCTION , PROBABLY OLD [40+ ms Q WAVE IN V1/V2] Compared to ECG 07/30/2022 14:32:03 Right bundle-branch block now present Myocardial infarct finding now present Ventricular-paced complex(es) or rhythm no longer present Electronically Signed On 07-31-2022 21:09:37 CDT by Refugio Kraus M.D. [id number]
[2022-07-30 17:30] VITALS: BP 164/107; PULSE 81; O2SAT 95
[2022-07-30 17:46] LABS: Troponin 5 2HR 75.16 ng/L (0-15)
[2022-07-30 17:47] LABS: Troponin 5 2HR Delta 7.16 ABS# (0-10)
--- NOTE | 2022-07-30 17:54 | ED_ITS ---
Documented by User: Monico Torres 07/30/22 18:17 HPI - Chest Pain General: Chief Complaint: Chest Pain Stated Complaint: bilateral leg cellulitis/high BP/sob Time Seen by Provider: 07/30/22 14:48 History of Present Illness: 72-year-old male presents emergency department chief complaint of progressive shortness of breath difficulty breathing chest pain and leg edema has been ongoing progressively worse last couple of weeks patient reports having no other associated symptoms reports he is on water pills that he was instructed by his doctor to double up on patient reports intermittent episodes of chest pain he reports no pain currently reporting no other associated symptoms Associated symptoms: Deny abdominal pain, dyspnea, fever(s), nausea, palpitations or vomiting Review of Systems General: Reports: 10 or more systems reviewed and unremarkable except in HPI and below Const: Denies: fever(s), chills, fatigue or malaise Eyes: Denies: change in vision or blurry vision Card: Reports: chest pain; Denies: palpitations Resp: Denies: dyspnea or productive cough GI: Denies: abdominal pain, nausea or vomiting : Denies: flank pain Musc: Reports: other (Bilateral leg edema); Denies: extremity pain Skin/Breast: Denies: rash or pruritus Neuro: Denies: headache(s) Psych: Denies: anxiety or depression Bharat/Lymph: Denies: easy bleeding All/Imm: Denies: urticaria, throat swelling or facial swelling PFS ED PFSH: Medical History Abnormal nuclear stress test Accelerated hypertension Acute kidney injury Atrial fibrillation Chronic, history of bradycardia with beta blockers, on eliquis Atrial fibrillation Bilateral lower leg cellulitis BMI 40.0-44.9, adult BPH NOS w/o ur obs/LUTS Bradycardia Calculus of proximal ureter Chronic anticoagulation eliquis Chronic diastolic heart failure Chronic kidney disease CKD (chronic kidney disease) Congestive heart failure Coronary artery disease Evaluated in [place], patient reports 55% narrowing unknown vessel no stent or angioplasty done CVA (cerebral vascular accident) residual right weakness Diabetes mellitus, type II Diabetic neuropathy associated with type 2 diabetes mellitus Hyperkalemia Hyperlipidemia Hypertension Ischemic toe ulcer Lumbar foraminal stenosis Nicotine dependence, chewing tobacco, with other nicotine-induced disorders Obesity BMI-42 kg/m2 Obstructive sleep apnea not on treatment by choice Osteoarthritis PAD (peripheral artery disease) Peripheral arterial disease Pes planus of both feet Physical deconditioning PVD (peripheral vascular disease) Renal calculus, right Rhabdomyolysis Squamous cell carcinoma in situ Temporary transvenous cardiac pacemaker present Surgical History Hx of colonoscopy with polypectomy No pertinent past surgical history Status post cardiac pacemaker procedure Family History Mother , 87 Diabetes CAD (coronary artery disease) Hypertension Father , 60 No problems noted. Social History Smoking and tobacco status: current every day smoker (chew tobacco) pipe Pipes smoked per week: 1 Years smoked pipe: 54 and smokeless tobacco Smokeless tobacco user: chewing tobacco Alcohol intake: former Year of sobriety/quit date alcohol: 26 y Former alcohol use details: heavy use, 5 DWI's Substance/Drug Use: former Household members: none Housing: House Marital status: service: Yes Current occupational status: retired Physical Exam Const: COMMON NORMALS: no acute distress, patient oriented x3 and healthy appearing HENMT: COMMON NORMALS: normocephalic and atraumatic HEAD & SCALP: normocephalic and atraumatic Eye: COMMON NORMALS: Equal, round and reactive pupils present and EOMs intact bilaterally PUPIL: Yes Equal, round and reactive pupils present Neck/C-Spine: COMMON NORMALS: full ROM, supple and no JVD Lymph: LYMPHATIC: no lymphadenopathy noted Chest: COMMONS NORMALS: normal inspection of the chest and normal palpation of entire chest wall Resp: COMMON NORMALS: normal respiratory effort, No retractions and clear to auscultation bilaterally EFFORT & INSPECTION: Yes able to speak in complete sentences and Yes symmetric chest movement AUSCULTATION: clear to auscultation bilaterally OTHER: Diminished breath sounds a bit in the bases no obvious wheezing crackles rales or rhonchi noted. Cardio: COMMON NORMALS: no JVD, regular rate and regular rhythm RATE: regular rate RHYTHM: regular rhythm GI: COMMON NORMALS: Normal to inspection, nondistended, normoactive bowel sounds present, Soft to palpation and non-tender INSPECTION: Yes normal to inspection PALPATION: Yes Soft to palpation : COMMON NORMALS: Yes no CVA tenderness BLADDER/KIDNEY EXAM: Yes no CVA tenderness Back/Pelvis: COMMON NORMALS: no CVA tenderness Extremity: COMMON NORMALS: normal to inspection and full ROM; negative for no pedal edema (Obvious 3+ pedal edema noted bilaterally with compression stockings appreci) Neuro: COMMON NORMALS: patient oriented x3, CN's II-XII intact bilaterally, moves all extremities and no focal motor deficits Psych: COMMON NORMALS: mental status grossly normal, Normal thought process present, cooperative and normal affect THOUGHT PROCESS: Normal thought process present Skin: COMMON NORMALS: no rashes or lesions noted GENERAL SKIN EXAM: no rashes or lesions noted Course Vital Signs: Vital signs: Vital Signs Temperature 98.0 F 07/30/22 14:18 Pulse Rate 79 07/30/22 20:45 Respiratory Rate 20 H 07/30/22 20:45 Blood Pressure 156/91 07/30/22 20:45 Pulse Oximetry 92 07/30/22 20:45 Oxygen Delivery Me thod Room Air 07/30/22 19:30 MDM - Chest Pain Medical Decision Making Due to the patient's symptom condition IV established basic lab work and imaging will be obtained underlying concerns underlying worsening of renal disease or cardiac disease prominent we will continue to follow Patient elton stable condition at this time. This patient was signed out to Dr. Engel at 1818 anticipate probable admission for his underlying condition. Lab Data 07/30/22 15:05 07/30/22 15:05 Radiology Impressions Chest X-Ray 07/30/22 14:46 IMPRESSION: Stable abnormal chest without acute abnormality. Laboratory Results WBC 11.1 10^3/uL (4.0-10.0) H 07/30/22 15:05 RBC 5.35 10^6/uL (4.1-5.3) H 07/30/22 15:05 Hgb 15.2 g/dL (11.7-16.6) 07/30/22 15:05 Hct 46.9 % (42.0-52.0) 07/30/22 15:05 MCV 87.7 fl (80-94) 07/30/22 15:05 MCH 28.4 pg (28.0-34.0) 07/30/22 15:05 MCHC 32.4 g/dL (30.0-36.0) 07/30/22 15:05 RDW 13.1 % (12.1-15.1) 07/30/22 15:05 Plt Count 204 10^3/cmm (130-400) 07/30/22 15:05 MPV 10.5 fL (7.4-10.4) H 07/30/22 15:05 Neut % (Auto) 70.0 % 07/30/22 15:05 Lymph % (Auto) 20.8 % 07/30/22 15:05 Bucks % (Auto) 7.0 % 07/30/22 15:05 Eos % (Auto) 1.2 % 07/30/22 15:05 Baso % (Auto) 0.5 % 07/30/22 15:05 Neut # (Auto) 7.74 10^3/uL (1.8-7.7) H 07/30/22 15:05 Lymph # (Auto) 2.3 10^3/uL (0.8-4.8) 07/30/22 15:05 Bucks # (Auto) 0.8 10^3/uL (0.2-0.9) 07/30/22 15:05 Eos # (Auto) 0.1 10^3/uL (0.0-0.8) 07/30/22 15:05 Baso # (Auto) 0.1 10^3/uL (0.0-0.1) 07/30/22 15:05 Nucleated RBC % (auto) 0 % 07/30/22 15:05 Nucleated RBCs # 0.0 /100WBC 07/30/22 15:05 PT 14.70 SECONDS (12.1-14.9) 07/30/22 15:05 INR 1.12 (0.8-1.2) 07/30/22 15:05 APTT 37.6 SECONDS (23.9-36.7) H 07/30/22 15:05 Sodium 140 mmol/L (136-145) 07/30/22 15:05 Potassium 3.2 mmol/L (3.5-5.1) L 07/30/22 15:05 Chloride 96 mmol/L (98-107) L 07/30/22 15:05 Carbon Dioxide 31 mmol/L (22-29) H 07/30/22 15:05 Anion Gap 16.2 (5-19) 07/30/22 15:05 BUN 13 mg/dL (8-23) 07/30/22 15:05 Creatinine 1.4 mg/dL (0.7-1.2) H 07/30/22 15:05 GFR Calculation Not Reportable 07/30/22 15:05 Glucose 209 mg/dL (65-115) H 07/30/22 15:05 Calculated Osmolality 296 mOsm/kg (285-295) H 07/30/22 15:05 Calcium 9.4 mg/dL (8.5-10.5) 07/30/22 15:05 Total Bilirubin 0.6 mg/dL (0.15-1.2) 07/30/22 15:05 AST 25 U/L (0-40) 07/30/22 15:05 ALT 18 U/L (0-41) 07/30/22 15:05 Alkaline Phosphatase 104 U/L (40-130) 07/30/22 15:05 Troponin T Baseline 68 ng/L (0-15) H 07/30/22 15:05 Troponin T 120 Minute 75.16 ng/L (0-15) H 07/30/22 16:55 Delta Troponin T 7.16 ABS# (0-10) 07/30/22 16:55 Troponin T Hi Sens 6Hr 67.66 ng/L (0-15) H 07/30/22 18:07 Troponin T Hi Sens 6Hr Delta -0.34 ng/L (0-12) L 07/30/22 18:07 NT-Pro-B Natriuret Pep 1082 pg/mL (0-125) H 07/30/22 15:05 Total Protein 6.6 g/dL (6.6-8.7) 07/30/22 15:05 Albumin 4.0 g/dL (3.5-5.2) 07/30/22 15:05 Globulin 2.6 g/dL (1.3-4.6) 07/30/22 15:05 Urine Color Yellow (Yellow) 07/30/22 18:58 Urine Appearance Clear (CLEAR) 07/30/22 18:58 Urine pH 7 (5-7) 07/30/22 18:58 Ur Specific [place] 1.010 (1.005-1.030) 07/30/22 18:58 Urine Protein Trace (Negative) 07/30/22 18:58 Urine Glucose (UA) Norm (Normal) 07/30/22 18:58 Urine Ketones Negative (Negative) 07/30/22 18:58 Urine Blood 2+ (Negative) H 07/30/22 18:58 Urine Nitrate Negative (Negative) 07/30/22 18:58 Urine Bilirubin Neg (Negative) 07/30/22 18:58 Urine Urobilinogen Norm mg/dL (Negative) 07/30/22 18:58 Ur Leukocyte Esterase Negative (Negative) 07/30/22 18:58 Urine RBC 5-10 /hpf (0-2) H 07/30/22 18:58 Urine WBC 0-4 /hpf (0-5) H 07/30/22 18:58 Ur Squamous Epith Cells None /hpf (0-5) 07/30/22 18:58 Amorphous Sediment Not Reportable 07/30/22 18:58 Urine Bacteria None /hpf (NONE) 07/30/22 18:58 Hyaline Casts 0-4 /lpf H 07/30/22 18:58 Discharge Plan Discharge Patient Disposition: Home Clinical Impression: Bilateral edema of lower extremity Condition: Stable Prescriptions: No Action (DME) ottobock afo to right See Rx Instructions .Route .MEDSUPPLY Qty: 1 0RF Rx Instructions: As directed by [employer] (DME) Diabetic Shoes with 3 pairs of inserts See Rx Instructions .ROUTE .MEDSUPPLY Qty: 1 0RF Rx Instructions: As directed by [facility] insulin glargine 100 unit/mL (3 mL) insulin pen 5 unit SUBCUT BEDTIME magnesium oxide 400 mg magnesium tablet 400 mg PO DAILY pregabalin [Lyrica] 150 mg Capsule 150 mg PO BID multivitamin Tablet 1 tab PO DAILY 30 Days Qty: 30 0RF tamsulosin 0.4 mg capsule 0.4 mg PO BEDTIME 30 Days Qty: 30 0RF finasteride 5 mg tablet 5 mg PO DAILY 30 Days Qty: 30 0RF rosuvastatin 10 mg Tablet 10 mg PO QPM 30 Days Qty: 30 0RF cholecalciferol (vitamin D3) [Vitamin D3] 2,000 unit Tablet 2,000 unit PO QAM 30 Days Qty: 30 0RF Eliquis 5 mg tablet 5 mg PO BID 30 Days Qty: 60 0RF potassium chloride 20 mEq tablet extended release 40 meq PO DAILY Qty: 120 3RF Hold Instructions: Resume on 07/28/21. furosemide [Lasix] 80 mg Tablet 40 mg PO QAM PRN (Reason: Edema) 30 Days Qty: 30 0RF Discharge Orders: Discharge ED (Routine); Ordered 07/30/22 Ordered By: Teresita Engel Referrals: Jessica Bui MD [Primary Care Provider] - 1-3 days Discharge Diet: Advance as tolerated Discharge Activity: Resume usual activity Patient Instructions: Leg Edema (ED) Coding Level of Care Code ED Office Rental Clerk for Chg Fwd Documented by User: Teresita Engel MD 07/30/22 21:06 HPI - Chest Pain General: Chief Complaint: Chest Pain Stated Complaint: bilateral leg cellulitis/high BP/sob Time Seen by Provider: 07/30/22 14:48 PFSH ED PFSH: Medical History Abnormal nuclear stress test Accelerated hypertension Acute kidney injury Atrial fibrillation Chronic, history of bradycardia with beta blockers, on eliquis Atrial fibrillation Bilateral lower leg cellulitis BMI 40.0-44.9, adult BPH NOS w/o ur obs/LUTS Bradycardia Calculus of proximal ureter Chronic anticoagulation eliquis Chronic diastolic heart failure Chronic kidney disease CKD (chronic kidney disease) Congestive heart failure Coronary artery disease Evaluated in [place], patient reports 55% narrowing unknown vessel no stent or angioplasty done CVA (cerebral vascular accident) residual right weakness Diabetes mellitus, type II Diabetic neuropathy associated with type 2 diabetes mellitus Hyperkalemia Hyperlipidemia Hypertension Ischemic toe ulcer Lumbar foraminal stenosis Nicotine dependence, chewing tobacco, with other nicotine-induced disorders Obesity BMI-42 kg/m2 Obstructive sleep apnea not on treatment by choice Osteoarthritis PAD (peripheral artery disease) Peripheral arterial disease Pes planus of both feet Physical deconditioning PVD (peripheral vascular disease) Renal calculus, right Rhabdomyolysis Squamous cell carcinoma in situ Temporary transvenous cardiac pacemaker present Surgical History Hx of colonoscopy with polypectomy No pertinent past surgical history Status post cardiac pacemaker procedure Family History Mother , 87 Diabetes CAD (coronary artery disease) Hypertension Father , 60 No problems noted. Social History Smoking and tobacco status: current every day smoker (chew tobacco) pipe Pipes smoked per week: 1 Years smoked pipe: 54 and smokeless tobacco Smokeless tobacco user: chewing tobacco Alcohol intake: former Year of sobriety/quit date alcohol: 26 y Former alcohol use details: heavy use, 5 DWI's Substance/Drug Use: former Household members: none Housing: House Marital status: service: Yes Current occupational status: retired Course Vital Signs: Vital signs: Vital Signs Temperature 98.0 F 07/30/22 14:18 Pulse Rate 79 07/30/22 20:45 Respiratory Rate 20 H 07/30/22 20:45 Blood Pressure 156/91 07/30/22 20:45 Pulse Oximetry 92 07/30/22 20:45 Oxygen Delivery Me thod Room Air 07/30/22 19:30 MDM - Chest Pain Medical Decision Making Due to the patient's symptom condition IV established basic lab work and imaging will be obtained underlying concerns underlying worsening of renal disease or cardiac disease prominent we will continue to follow Patient elton stable condition at this time. This patient was signed out to Dr. Engel at 18 Patient feels much improved here after IV Lasix he states his leg edema feels improved and he would like to go home he is to continue to wear his compression stockings and to take Lasix return if worsening. Lab Data 07/30/22 15:05 07/30/22 15:05 Radiology Impressions Chest X-Ray 07/30/22 14:46 IMPRESSION: Stable abnormal chest without acute abnormality. Laboratory Results WBC 11.1 10^3/uL (4.0-10.0) H 07/30/22 15:05 RBC 5.35 10^6/uL (4.1-5.3) H 07/30/22 15:05 Hgb 15.2 g/dL (11.7-16.6) 07/30/22 15:05 Hct 46.9 % (42.0-52.0) 07/30/22 15:05 MCV 87.7 fl (80-94) 07/30/22 15:05 MCH 28.4 pg (28.0-34.0) 07/30/22 15:05 MCHC 32.4 g/dL (30.0-36.0) 07/30/22 15:05 RDW 13.1 % (12.1-15.1) 07/30/22 15:05 Plt Count 204 10^3/cmm (130-400) 07/30/22 15:05 MPV 10.5 fL (7.4-10.4) H 07/30/22 15:05 Neut % (Auto) 70.0 % 07/30/22 15:05 Lymph % (Auto) 20.8 % 07/30/22 15:05 Bucks % (Auto) 7.0 % 07/30/22 15:05 Eos % (Auto) 1.2 % 07/30/22 15:05 Baso % (Auto) 0.5 % 07/30/22 15:05 Neut # (Auto) 7.74 10^3/uL (1.8-7.7) H 07/30/22 15:05 Lymph # (Auto) 2.3 10^3/uL (0.8-4.8) 07/30/22 15:05 Bucks # (Auto) 0.8 10^3/uL (0.2-0.9) 07/30/22 15:05 Eos # (Auto) 0.1 10^3/uL (0.0-0.8) 07/30/22 15:05 Baso # (Auto) 0.1 10^3/uL (0.0-0.1) 07/30/22 15:05 Nucleated RBC % (auto) 0 % 07/30/22 15:05 Nucleated RBCs # 0.0 /100WBC 07/30/22 15:05 PT 14.70 SECONDS (12.1-14.9) 07/30/22 15:05 INR 1.12 (0.8-1.2) 07/30/22 15:05 APTT 37.6 SECONDS (23.9-36.7) H 07/30/22 15:05 Sodium 140 mmol/L (136-145) 07/30/22 15:05 Potassium 3.2 mmol/L (3.5-5.1) L 07/30/22 15:05 Chloride 96 mmol/L (98-107) L 07/30/22 15:05 Carbon Dioxide 31 mmol/L (22-29) H 07/30/22 15:05 Anion Gap 16.2 (5-19) 07/30/22 15:05 BUN 13 mg/dL (8-23) 07/30/22 15:05 Creatinine 1.4 mg/dL (0.7-1.2) H 07/30/22 15:05 GFR Calculation Not Reportable 07/30/22 15:05 Glucose 209 mg/dL (65-115) H 07/30/22 15:05 Calculated Osmolality 296 mOsm/kg (285-295) H 07/30/22 15:05 Calcium 9.4 mg/dL (8.5-10.5) 07/30/22 15:05 Total Bilirubin 0.6 mg/dL (0.15-1.2) 07/30/22 15:05 AST 25 U/L (0-40) 07/30/22 15:05 ALT 18 U/L (0-41) 07/30/22 15:05 Alkaline Phosphatase 104 U/L (40-130) 07/30/22 15:05 Troponin T Baseline 68 ng/L (0-15) H 07/30/22 15:05 Troponin T 120 Minute 75.16 ng/L (0-15) H 07/30/22 16:55 Delta Troponin T 7.16 ABS# (0-10) 07/30/22 16:55 Troponin T Hi Sens 6Hr 67.66 ng/L (0-15) H 07/30/22 18:07 Troponin T Hi Sens 6Hr Delta -0.34 ng/L (0-12) L 07/30/22 18:07 NT-Pro-B Natriuret Pep 1082 pg/mL (0-125) H 07/30/22 15:05 Total Protein 6.6 g/dL (6.6-8.7) 07/30/22 15:05 Albumin 4.0 g/dL (3.5-5.2) 07/30/22 15:05 Globulin 2.6 g/dL (1.3-4.6) 07/30/22 15:05 Urine Color Yellow (Yellow) 07/30/22 18:58 Urine Appearance Clear (CLEAR) 07/30/22 18:58 Urine pH 7 (5-7) 07/30/22 18:58 Ur Specific [place] 1.010 (1.005-1.030) 07/30/22 18:58 Urine Protein Trace (Negative) 07/30/22 18:58 Urine Glucose (UA) Norm (Normal) 07/30/22 18:58 Urine Ketones Negative (Negative) 07/30/22 18:58 Urine Blood 2+ (Negative) H 07/30/22 18:58 Urine Nitrate Negative (Negative) 07/30/22 18:58 Urine Bilirubin Neg (Negative) 07/30/22 18:58 Urine Urobilinogen Norm mg/dL (Negative) 07/30/22 18:58 Ur Leukocyte Esterase Negative (Negative) 07/30/22 18:58 Urine RBC 5-10 /hpf (0-2) H 07/30/22 18:58 Urine WBC 0-4 /hpf (0-5) H 07/30/22 18:58 Ur Squamous Epith Cells None /hpf (0-5) 07/30/22 18:58 Amorphous Sediment Not Reportable 07/30/22 18:58 Urine Bacteria None /hpf (NONE) 07/30/22 18:58 Hyaline Casts 0-4 /lpf H 07/30/22 18:58 Discharge Plan Discharge Patient Disposition: Home Clinical Impression: Bilateral edema of lower extremity Condition: Stable Prescriptions: No Action (DME) ottobock afo to right See Rx Instructions .Route .MEDSUPPLY Qty: 1 0RF Rx Instructions: As directed by [employer] (DME) Diabetic Shoes with 3 pairs of inserts See Rx Instructions .ROUTE .MEDSUPPLY Qty: 1 0RF Rx Instructions: As directed by [facility] insulin glargine 100 unit/mL (3 mL) insulin pen 5 unit SUBCUT BEDTIME magnesium oxide 400 mg magnesium tablet 400 mg PO DAILY pregabalin [Lyrica] 150 mg Capsule 150 mg PO BID multivitamin Tablet 1 tab PO DAILY 30 Days Qty: 30 0RF tamsulosin 0.4 mg capsule 0.4 mg PO BEDTIME 30 Days Qty: 30 0RF finasteride 5 mg tablet 5 mg PO DAILY 30 Days Qty: 30 0RF rosuvastatin 10 mg Tablet 10 mg PO QPM 30 Days Qty: 30 0RF cholecalciferol (vitamin D3) [Vitamin D3] 2,000 unit Tablet 2,000 unit PO QAM 30 Days Qty: 30 0RF Eliquis 5 mg tablet 5 mg PO BID 30 Days Qty: 60 0RF potassium chloride 20 mEq tablet extended release 40 meq PO DAILY Qty: 120 3RF Hold Instructions: Resume on 07/28/21. furosemide [Lasix] 80 mg Tablet 40 mg PO QAM PRN (Reason: Edema) 30 Days Qty: 30 0RF Discharge Orders: Discharge ED (Routine); Ordered 07/30/22 Ordered By: Teresita Engel Referrals: Jessica Bui MD [Primary Care Provider] - 1-3 days Discharge Diet: Advance as tolerated Discharge Activity: Resume usual activity Patient Instructions: Leg Edema (ED) Coding Level of Care Code ED Office Rental Clerk for Yris Tee
[2022-07-30] MEDS: sodium chloride 0.9% 500 ML 999 ML IV (18:21)
[2022-07-30 18:30] VITALS: BP 130/84; PULSE 81; O2SAT 94
[2022-07-30 18:46] LABS: INR 1.12 (0.8-1.2)
[2022-07-30 18:47] LABS: Partial Thromboplastin Time 37.6 SECONDS (23.9-36.7)
[2022-07-30 18:54] LABS: Troponin 5 6HR 67.66 ng/L (0-15)
[2022-07-30] MEDS: FUROsemide 10 mg/mL SDV 10mL 60 MG IVP (18:54)
[2022-07-30 18:56] LABS: Troponin 5 6HR Delta -0.34 ng/L (0-12)
--- NOTE | 2022-07-30 19:21 | ECG_ITS ---
[facility] Test Date: 2022-07-30 Pat Name: Giles Guillaume Department: Room: Gender: Male Toll Ticket Clerk: : 1950 Requested By: Monico Torres Order Number: [id number] Shelton MD: Refugio Kraus M.D. Measurements Intervals [place] Rate: 77 P: 0 NM: 0 QRS: 71 QRSD: 139 T: 1 QT: 422 QTc: 479 Interpretive Statements ATRIAL FIBRILLATION RIGHT BUNDLE BRANCH BLOCK [120+ ms QRS DURATION, UPRIGHT V1, 40+ ms S IN I/aVL/V4/V5/V6] SEPTAL MYOCARDIAL INFARCTION , PROBABLY OLD [40+ ms Q WAVE IN V1/V2] Compared to ECG 07/30/2022 17:34:26 No significant changes Electronically Signed On 07-31-2022 21:25:35 CDT by Refugio Kraus M.D. [id number]
[2022-07-30 19:30] VITALS: BP 156/91; PULSE 79; RESP 20; O2SAT 92
--- NOTE | 2022-07-30 19:34 | PC.NURSE ---
Received report from Isha Gaitan RN. Pt in room, a&ox4. Pt assited up to restroom with hemiwalker.
[2022-07-30 19:49] LABS: Add Urine Microscopic? YES; Bilirubin Urine Neg (Negative); Blood Urine 2+ (Negative); Glucose Urine UA Norm (Normal); Ketones Urine Negative (Negative); Leukocyte Esterase Urine Negative (Negative); Nitrate Urine Negative (Negative); Protein Urine Trace (Negative); Urine Appearance Clear (CLEAR); Urine Color Yellow (Yellow); Urobilinogen Urine Norm (Negative); pH Urine 7 (5-7)
[2022-07-30 19:50] LABS: Add Urine Culture? No; Hyaline Casts Urine 0-4 /lpf; WBC Urine 0-4 /hpf (0-5)
[2022-07-30 20:45] VITALS: BP 156/91; PULSE 79; RESP 20; O2SAT 92
== END 2022-07-30 20:48 | disposition home or self-care (01) ==
PROVIDERS: Emergency Medicine; Emergency Provider Emergency Medicine; PCP Family Medicine
DX: R60.0 Localized edema (principal); Z79.01 Long term (current) use of anticoagulants; Z79.4 Long term (current) use of insulin; I13.0 Hypertensive heart and chronic kidney disease with heart failure and stage 1 through stage 4 chronic kidney disease, or unspecified chronic kidney disease; E11.22 Type 2 diabetes mellitus with diabetic chronic kidney disease; N18.9 Chronic kidney disease, unspecified; I50.32 Chronic diastolic (congestive) heart failure; I25.10 Atherosclerotic heart disease of native coronary artery without angina pectoris; Z86.73 Personal history of transient ischemic attack (TIA), and cerebral infarction without residual deficits; E78.5 Hyperlipidemia, unspecified; Z95.0 Presence of cardiac pacemaker; F17.220 Nicotine dependence, chewing tobacco, uncomplicated; Z51.89 Encounter for other specified aftercare; R23.8 Other skin changes; I73.9 Peripheral vascular disease, unspecified; E11.42 Type 2 diabetes mellitus with diabetic polyneuropathy; M21.41 Flat foot [pes planus] (acquired), right foot; M21.42 Flat foot [pes planus] (acquired), left foot; E11.621 Type 2 diabetes mellitus with foot ulcer; L97.511 Non-pressure chronic ulcer of other part of right foot limited to breakdown of skin; R60.9 Edema, unspecified
CPT/HCPCS: 36415; 71045; 80053; 81001; 83880; 84484; 85025; 85610; 85730; 87040; 93005; 96374; 99213; 99285; J1940; J7040

== ENCOUNTER 2022-08-13 15:23 | Inpatient (IN) | payer OTHER, SELFPAY ==
[2022-08-13] VITALS (9 sets, daily range): BP systolic 143–176; BP diastolic 71–92; PULSE 71–91; RESP 16–18; TEMP 36.7–36.9; O2SAT 92–97; BMI 43.8
--- NOTE | 2022-08-13 16:14 | USR_ITS ---
PROCEDURE INFORMATION: Exam: US Duplex Right Upper Extremity Veins, Limited Exam date and time: 08/13/2022 4:54 PM Age: 72 years old Clinical indication: Pain; Arm, lower; Right; Additional info: Right arm pain and swelling TECHNIQUE: Imaging protocol: Real-time duplex ultrasound of the right Upper Extremity with 2-D fernandes scale, color Doppler flow and spectral waveform analysis with image documentation. Limited exam focused on the right upper extremity veins. COMPARISON: CT abdomen pelvis wo con [id number] 07/20/2021 3:34 PM FINDINGS: Right deep veins: Unremarkable. Innominate, subclavian, axillary, and brachial veins are patent throughout without thrombus. Normal Doppler waveforms. Normal compressibility and/or augmentation response. Visualized internal jugular and subclavian veins are patent. Right superficial veins: Unremarkable. Visualized cephalic and basilic veins are patent without thrombus. Soft tissues: Unremarkable. US/[place] [id number] IMPRESSION: No evidence of deep vein thrombosis.
--- NOTE | 2022-08-13 16:19 | XR_ITS ---
WS: [id number] Portable AP upright chest, 08/13/2022 Clinical Data: sob/cp Comparison: Portable chest, 07/30/2022 Findings: No nodules or masses are seen. The heart is enlarged. The pulmonary vascularity is not incr eased. No pneumonia or pneumothorax is seen. There is left lower lateral pleural thickening and right lower lateral pleural thickening. The aortic arch shows calcification. The single lead pacemaker rem ains in the same position. XR/XR chest 1V portable [id number] Impression: Cardiomegaly and atherosclerosis.
--- NOTE | 2022-08-13 16:19 | ECG_ITS ---
[facility] Test Date: 2022-08-13 Pat Name: Giles Guillaume Department: Room: Gender: Male Fire Control Assistant: : 1950 Requested By: Hal Arzate Order Number: [id number] Peoples MD: Kervin Segundo M.D. Measurements Intervals [place] Rate: 67 P: 0 MD: 0 QRS: -81 QRSD: 142 T: 76 QT: 438 QTc: 463 Interpretive Statements ATRIAL FIBRILLATION WITH INTERMITTENT PACED SPIKES ELECTRONIC VENTRICULAR PACEMAKER -- CONTOUR ANALYSIS BASED ON INTRINSIC RHYTHM LEFT AXIS DEVIATION [QRS AXIS < -30] Compared to ECG 07/30/2022 19:28:15 Left-axis deviation now present Myocardial infarct finding no longer present Electronically Signed On 08-13-2022 17:45:22 CDT by Kervin Segundo M.D. [email or web address]
--- NOTE | 2022-08-13 16:21 | ED_ITS ---
Documented by User: ALEXX Bell 08/14/22 07:05 HPI - Extremity Problem General: Chief complaint: Extremity Problem,Nontraumatic Stated complaint: Swelling in Legs and arms Time Seen by Provider: 08/13/22 15:46 History of Present Illness: Patient is a 72-year-old male comes to the ED with right arm swelling and pain and bilateral leg swelling and pain. Past medical history of CHF, PAD, A-fib and hypertension. Patient has a pacemaker. Patient was seen by Dr. Kraus today and was sent over here to the ED to be reevaluated, check right arm for blood clot and to get IV Lasix. He states that he has been having on and off episodes of chest pain for the past week. He describes it as an aching pain in the left side of his chest. Chest pain occurs while at rest. Denies any worsening or improving factors. Patient also states he has been having increased swelling in his legs bilaterally. He has been taking his prescribed Lasix. Associated symptoms: Reports chest pain; Deny fever(s) or rash Review of Systems Const: Denies: fever(s), chills or fatigue Eyes: Denies: change in vision or eye discomfort ENMT: Denies: throat pain, odynophagia, nasal discharge or nasal congestion Card: Reports: chest pain, edema (Bilateral lower extremity edema) and dyspnea on exertion; Denies: palpitations, swelling of feet/ankles or orthopnea Resp: Denies: dyspnea, productive cough or non-productive cough GI: Denies: abdominal pain, nausea, vomiting, diarrhea, constipation or hematochezia : Denies: flank pain, difficulty urinating, dysuria or hematuria Musc: Reports: extremity swelling (Right arm); Denies: neck pain or back pain Skin/Breast: Denies: rash or new lesions Neuro: Denies: headache(s), numbness in extremities or weakness in extremities PFS ED PFSH: Medical History Abnormal nuclear stress test Accelerated hypertension Acute kidney injury Atrial fibrillation Chronic, history of bradycardia with beta blockers, on eliquis Atrial fibrillation Bilateral lower leg cellulitis BMI 40.0-44.9, adult BPH NOS w/o ur obs/LUTS Bradycardia Calculus of proximal ureter Chronic anticoagulation eliquis Chronic diastolic heart failure Chronic kidney disease CKD (chronic kidney disease) Congestive heart failure Coronary artery disease Evaluated in Excel, patient reports 55% narrowing unknown vessel no stent or angioplasty done CVA (cerebral vascular accident) residual right weakness Diabetes mellitus, type II Diabetic neuropathy associated with type 2 diabetes mellitus Hyperkalemia Hyperlipidemia Hypertension Ischemic toe ulcer Lumbar foraminal stenosis Nicotine dependence, chewing tobacco, with other nicotine-induced disorders Obesity BMI-42 kg/m2 Obstructive sleep apnea not on treatment by choice Osteoarthritis PAD (peripheral artery disease) Peripheral arterial disease Pes planus of both feet Physical deconditioning PVD (peripheral vascular disease) Renal calculus, right Rhabdomyolysis Squamous cell carcinoma in situ Temporary transvenous cardiac pacemaker present Surgical History Hx of colonoscopy with polypectomy No pertinent past surgical history Status post cardiac pacemaker procedure Family History Mother , 87 Diabetes CAD (coronary artery disease) Hypertension Father , 60 No problems noted. Social History Smoking and tobacco status: current every day smoker (chew tobacco) pipe Pipes smoked per week: 1 Years smoked pipe: 54 and smokeless tobacco Smokeless tobacco user: chewing tobacco Alcohol intake: former Year of sobriety/quit date alcohol: 26 y Former alcohol use details: heavy use, 5 DWI's Substance/Drug Use: former Household members: none Housing: House Marital status: service: Yes Current occupational status: retired Physical Exam Const: COMMON NORMALS: patient oriented x3 HENMT: COMMON NORMALS: normocephalic HEAD & SCALP: normocephalic MOUTH: Normal oral and palatal mucosa present THROAT: posterior oropharynx normal and uvula midline Neck/C-Spine: COMMON NORMALS: supple GENERAL: Yes normal visual inspection Resp: COMMON NORMALS: normal respiratory effort, No retractions, No use of accessory muscles and clear to auscultation bilaterally AUSCULTATION: clear to auscultation bilaterally Cardio: COMMON NORMALS: regular rate, regular rhythm, S1 normal heart sound present, S2 normal heart sound present, No gallops present (Cardio), No clicks present (Cardio), No murmurs present (Cardio) and Peripheral pulses 2+ t hroughout RATE: regular rate RHYTHM: regular rhythm HEART SOUNDS: S1 normal heart sound present and S2 normal heart sound present PERIPHERAL PULSES: Peripheral pulses 2+ throughout GI: COMMON NORMALS: Normal to inspection, nondistended, normoactive bowel sounds present, Soft to palpation, non-tender and no masses PALPATION: Yes Soft to palpation : COMMON NORMALS: Yes no CVA tenderness BLADDER/KIDNEY EXAM: Yes no CVA tenderness Back/Pelvis: COMMON NORMALS: no CVA tenderness Extremity: COMMON NORMALS: normal to inspection GENERAL: Yes edema (Bilateral lower extremity edema 2+ pitting.) Neuro: COMMON NORMALS: patient oriented x3 GAIT: Yes Normal gait present Skin: GENERAL SKIN EXAM: dry skin Course Vital Signs: Vital signs: Vital Signs Temperature 98.2 F 08/14/22 04:00 Pulse Rate 90 08/14/22 04:00 Respiratory Rate 16 08/14/22 04:00 Blood Pressure 181/81 08/14/22 04:00 Pulse Oximetry 95 08/14/22 04:00 Oxygen Delivery Me thod Room Air 08/14/22 04:00 MDM - Extremity (Nontraumatic) Lab Data I reviewed the patient's lab results. 08/13/22 16:35 08/14/22 04:37 Radiology Impressions Venous Duplex 08/13/22 16:14 IMPRESSION: No evidence of deep vein thrombosis. Laboratory Results WBC 11.2 10^3/uL (4.0-10.0) H 08/13/22 16:35 RBC 4.78 10^6/uL (4.1-5.3) 08/13/22 16:35 Hgb 13.4 g/dL (11.7-16.6) 08/13/22 16:35 Hct 41.0 % (42.0-52.0) L 08/13/22 16:35 MCV 85.8 fl (80-94) 08/13/22 16:35 MCH 28.0 pg (28.0-34.0) 08/13/22 16:35 MCHC 32.7 g/dL (30.0-36.0) 08/13/22 16:35 RDW 13.0 % (12.1-15.1) 08/13/22 16:35 Plt Count 199 10^3/cmm (130-400) 08/13/22 16:35 MPV 10.5 fL (7.4-10.4) H 08/13/22 16:35 Neut % (Auto) 71.1 % 08/13/22 16:35 Lymph % (Auto) 19.9 % 08/13/22 16:35 Guadalupe % (Auto) 6.9 % 08/13/22 16:35 Eos % (Auto) 1.1 % 08/13/22 16:35 Baso % (Auto) 0.4 % 08/13/22 16:35 Neut # (Auto) 7.98 10^3/uL (1.8-7.7) H 08/13/22 16:35 Lymph # (Auto) 2.2 10^3/uL (0.8-4.8) 08/13/22 16:35 Guadalupe # (Auto) 0.8 10^3/uL (0.2-0.9) 08/13/22 16:35 Eos # (Auto) 0.1 10^3/uL (0.0-0.8) 08/13/22 16:35 Baso # (Auto) 0.0 10^3/uL (0.0-0.1) 08/13/22 16:35 Nucleated RBC % (auto) 0 % 08/13/22 16:35 Nucleated RBCs # 0.0 /100WBC 08/13/22 16:35 Sodium 140 mmol/L (136-145) 08/13/22 16:35 Potassium 2.9 mmol/L (3.5-5.1) L 08/13/22 16:35 Chloride 96 mmol/L (98-107) L 08/13/22 16:35 Carbon Dioxide 33 mmol/L (22-29) H 08/13/22 16:35 Anion Gap 13.9 (5-19) 08/13/22 16:35 BUN 15 mg/dL (8-23) 08/13/22 16:35 Creatinine 1.5 mg/dL (0.7-1.2) H 08/13/22 16:35 GFR Calculation Not Reportable 08/13/22 16:35 Glucose 224 mg/dL (65-115) H 08/13/22 16:35 Calculated Osmolality 298 mOsm/kg (285-295) H 08/13/22 16:35 Calcium 8.7 mg/dL (8.5-10.5) 08/13/22 16:35 Total Bilirubin 0.4 mg/dL (0.15-1.2) 08/13/22 16:35 AST 16 U/L (0-40) 08/13/22 16:35 ALT 14 U/L (0-41) 08/13/22 16:35 Alkaline Phosphatase 89 U/L (40-130) 08/13/22 16:35 Troponin T Baseline 66 ng/L (0-15) H 08/13/22 16:35 Troponin T 120 Minute 62.33 ng/L (0-15) H 08/13/22 18:33 Delta Troponin T -3.67 ABS# (0-10) L 08/13/22 18:33 NT-Pro-B Natriuret Pep 1090 pg/mL (0-125) H 08/13/22 16:35 Total Protein 6.2 g/dL (6.6-8.7) L 08/13/22 16:35 Albumin 3.7 g/dL (3.5-5.2) 08/13/22 16:35 Globulin 2.5 g/dL (1.3-4.6) 08/13/22 16:35 Discharge Plan Discharge Patient Disposition: Placed in Observation Admit Provider: Melanie Orlando Clinical Impression: CHF exacerbation Qualifiers: Heart failure type: combined systolic and diastolic Qualified Code(s): I50.43 - Acute on chronic combined systolic (congestive) and diastolic (congestive) heart failure Coding Level of Care Code ED Sexton Helper for Chg Fwd Documented by User: IRMA Underwood 08/13/22 20:12 HPI - Extremity Problem General: Chief complaint: Extremity Problem,Nontraumatic Stated complaint: Swelling in Legs and arms Time Seen by Provider: 08/13/22 15:46 PFSH ED PFSH: Medical History Abnormal nuclear stress test Accelerated hypertension Acute kidney injury Atrial fibrillation Chronic, history of bradycardia with beta blockers, on eliquis Atrial fibrillation Bilateral lower leg cellulitis BMI 40.0-44.9, adult BPH NOS w/o ur obs/LUTS Bradycardia Calculus of proximal ureter Chronic anticoagulation eliquis Chronic diastolic heart failure Chronic kidney disease CKD (chronic kidney disease) Congestive heart failure Coronary artery disease Evaluated in Excel, patient reports 55% narrowing unknown vessel no stent or angioplasty done CVA (cerebral vascular accident) residual right weakness Diabetes mellitus, type II Diabetic neuropathy associated with type 2 diabetes mellitus Hyperkalemia Hyperlipidemia Hypertension Ischemic toe ulcer Lumbar foraminal stenosis Nicotine dependence, chewing tobacco, with other nicotine-induced disorders Obesity BMI-42 kg/m2 Obstructive sleep apnea not on treatment by choice Osteoarthritis PAD (peripheral artery disease) Peripheral arterial disease Pes planus of both feet Physical deconditioning PVD (peripheral vascular disease) Renal calculus, right Rhabdomyolysis Squamous cell carcinoma in situ Temporary transvenous cardiac pacemaker present Surgical History Hx of colonoscopy with polypectomy No pertinent past surgical history Status post cardiac pacemaker procedure Family History Mother , 87 Diabetes CAD (coronary artery disease) Hypertension Father , 60 No problems noted. Social History Smoking and tobacco status: current every day smoker (chew tobacco) pipe Pipes smoked per week: 1 Years smoked pipe: 54 and smokeless tobacco Smokeless tobacco user: chewing tobacco Alcohol intake: former Year of sobriety/quit date alcohol: 26 y Former alcohol use details: heavy use, 5 DWI's Substance/Drug Use: former Household members: none Housing: House Marital status: service: Yes Current occupational status: retired Course ED course: 1954, discussed with patient his exacerbation of CHF. Patient reports 30 pound weight gain in the last month. Patient reports over the weekend on Thursday he got real short of breath and could not lay down at night. Patient continues to have some difficulty with shortness of breath on exertion. Patient is uncomfortable but going home. Vital Signs: Vital signs: Vital Signs Temperature 98.2 F 08/14/22 04:00 Pulse Rate 90 05/18/23 04:00 Respiratory Rate 16 08/14/22 04:00 Blood Pressure 181/81 08/14/22 04:00 Pulse Oximetry 95 08/14/22 04:00 Oxygen Delivery Me thod Room Air 08/14/22 04:00 MDM - Extremity (Nontraumatic) Medical Decision Making Patient was referred to the ER from Dr. Kraus's office for concerns of increased shortness of breath that is positional, and weight gain of 30 pounds in 1 month. Changes in medication has not assisted patient with extra weight loss. On exam patient has pitting edema up to the mid thigh. Patient also has edema in the right lower arm and hand. Pulses are intact in the extremity. Patient does have some Unna boots intact to the lower extremities. Vital signs are normal except for some mild elevation of blood pressure at 147. Differential diagnosis includes CHF exacerbation, ACS, electrolyte imbalance, pneumonia. Chest x-ray notes some mild haziness in the lower mazariegos that may be suggestive of a right pleural effusion troponin was 66 at the original and then dropped to 62 at 2-hour. BMP is thousand. Creatinine 1.5. Potassium was 2.9. Patient was given 40 of Lasix IV and had good diuresis with the bowels and out. Patient continued to have some shortness of breath but was 92% on room air. Reviewed exam with Dr. Engel about patient's concerns about going home he agreed with plan for admission. Discussed with Dr. Orlando who accepted patient for admission for CHF exacerbation observation status. Lab Data 08/13/22 16:35 08/14/22 04:37 Radiology Impressions Venous Duplex 08/13/22 16:14 IMPRESSION: No evidence of deep vein thrombosis. Laboratory Results WBC 11.2 10^3/uL (4.0-10.0) H 08/13/22 16:35 RBC 4.78 10^6/uL (4.1-5.3) 08/13/22 16:35 Hgb 13.4 g/dL (11.7-16.6) 08/13/22 16:35 Hct 41.0 % (42.0-52.0) L 08/13/22 16:35 MCV 85.8 fl (80-94) 08/13/22 16:35 MCH 28.0 pg (28.0-34.0) 08/13/22 16:35 MCHC 32.7 g/dL (30.0-36.0) 08/13/22 16:35 RDW 13.0 % (12.1-15.1) 08/13/22 16:35 Plt Count 199 10^3/cmm (130-400) 08/13/22 16:35 MPV 10.5 fL (7.4-10.4) H 08/13/22 16:35 Neut % (Auto) 71.1 % 08/13/22 16:35 Lymph % (Auto) 19.9 % 08/13/22 16:35 Guadalupe % (Auto) 6.9 % 08/13/22 16:35 Eos % (Auto) 1.1 % 08/13/22 16:35 Baso % (Auto) 0.4 % 08/13/22 16:35 Neut # (Auto) 7.98 10^3/uL (1.8-7.7) H 08/13/22 16:35 Lymph # (Auto) 2.2 10^3/uL (0.8-4.8) 08/13/22 16:35 Guadalupe # (Auto) 0.8 10^3/uL (0.2-0.9) 08/13/22 16:35 Eos # (Auto) 0.1 10^3/uL (0.0-0.8) 08/13/22 16:35 Baso # (Auto) 0.0 10^3/uL (0.0-0.1) 08/13/22 16:35 Nucleated RBC % (auto) 0 % 08/13/22 16:35 Nucleated RBCs # 0.0 /100WBC 08/13/22 16:35 Sodium 140 mmol/L (136-145) 08/13/22 16:35 Potassium 2.9 mmol/L (3.5-5.1) L 08/13/22 16:35 Chloride 96 mmol/L (98-107) L 08/13/22 16:35 Carbon Dioxide 33 mmol/L (22-29) H 08/13/22 16:35 Anion Gap 13.9 (5-19) 08/13/22 16:35 BUN 15 mg/dL (8-23) 08/13/22 16:35 Creatinine 1.5 mg/dL (0.7-1.2) H 08/13/22 16:35 GFR Calculation Not Reportable 08/13/22 16:35 Glucose 224 mg/dL (65-115) H 08/13/22 16:35 Calculated Osmolality 298 mOsm/kg (285-295) H 08/13/22 16:35 Calcium 8.7 mg/dL (8.5-10.5) 08/13/22 16:35 Total Bilirubin 0.4 mg/dL (0.15-1.2) 08/13/22 16:35 AST 16 U/L (0-40) 08/13/22 16:35 ALT 14 U/L (0-41) 08/13/22 16:35 Alkaline Phosphatase 89 U/L (40-130) 08/13/22 16:35 Troponin T Baseline 66 ng/L (0-15) H 08/13/22 16:35 Troponin T 120 Minute 62.33 ng/L (0-15) H 08/13/22 18:33 Delta Troponin T -3.67 ABS# (0-10) L 08/13/22 18:33 NT-Pro-B Natriuret Pep 1090 pg/mL (0-125) H 08/13/22 16:35 Total Protein 6.2 g/dL (6.6-8.7) L 08/13/22 16:35 Albumin 3.7 g/dL (3.5-5.2) 08/13/22 16:35 Globulin 2.5 g/dL (1.3-4.6) 08/13/22 16:35 EKG Data EKG 2: EKG interpretation date: 08/13/22 EKG interpretation time: 18:02 Interpretation: EKG shows uncertain irregular rhythm with electronic paced. Rate is 69 bpm. No significant change is noted from prior exam 2 hours prior. Discharge Plan Discharge Patient Disposition: Placed in Observation Admit Provider: Melanie Orlando Clinical Impression: CHF exacerbation Qualifiers: Heart failure type: combined systolic and diastolic Qualified Code(s): I50.43 - Acute on chronic combined systolic (congestive) and diastolic (congestive) heart failure Coding Level of Care Code ED Sexton Helper for g Randal
[2022-08-13 16:41] LABS: Basophils % 0.4 %; Eosinophils # 0.1 10^3/uL (0.0-0.8); Eosinophils % 1.1 %; Hemoglobin 13.4 g/dL (11.7-16.6); Lymphocytes # 2.2 10^3/uL (0.8-4.8); Lymphocytes % 19.9 %; Mean Corpuscular HGB Conc 32.7 g/dL (30.0-36.0); Mean Corpuscular Volume 85.8 fl (80-94); Mean Platelet Volume 10.5 fL (7.4-10.4); Monocytes # 0.8 10^3/uL (0.2-0.9); Monocytes % 6.9 %; Neutrophils # 7.98 10^3/uL (1.8-7.7); Neutrophils % 71.1 %; Nucleated Red Blood Cells % 0 %; Platelet Count 199 10^3/cmm (130-400); Red Blood Count 4.78 10^6/uL (4.1-5.3); White Blood Count 11.2 10^3/uL (4.0-10.0)
[2022-08-13] MEDS: FUROsemide 10 mg/mL SDV 4mL 40 MG IVP (16:41)
[2022-08-13 17:19] LABS: Troponin(5th) Baseline 66 ng/L (0-15)
[2022-08-13 17:25] LABS: Alanine Aminotransferase 14 U/L (0-41); Albumin Level 3.7 g/dL (3.5-5.2); Alkaline Phosphatase 89 U/L (40-130); Anion Gap 13.9 (5-19); Aspartate Amino Transferase 16 U/L (0-40); Blood Urea Nitrogen 15 mg/dL (8-23); Calcium 8.7 mg/dL (8.5-10.5); Carbon Dioxide 33 mmol/L (22-29); Chloride 96 mmol/L (98-107); Globulin 2.5 g/dL (1.3-4.6); Glucose 224 mg/dL (65-115); NT Pro B Type Natriuretic Pept 1090 pg/mL (0-125); Osmolality Calculated 298 mOsm/kg (285-295); Sodium 140 mmol/L (136-145); Total Bilirubin 0.4 mg/dL (0.15-1.2); Total Protein 6.2 g/dL (6.6-8.7)
[2022-08-13 17:39] LABS: Potassium 2.9 mmol/L (3.5-5.1)
[2022-08-13] MEDS: potassium chloride oral liq 20 mEq/15 mL UDC 40 MEQ PO (17:49)
--- NOTE | 2022-08-13 18:19 | ECG_ITS ---
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 Measurements Intervals [place] Rate: 69 P: 0 TN: 0 QRS: 140 QRSD: 150 T: -22 QT: 432 QTc: 466 Interpretive Statements ELECTRONIC VENTRICULAR PACEMAKER -- CONTOUR ANALYSIS BASED ON INTRINSIC RHYTHM RIGHT AXIS DEVIATION [QRS AXIS > 100] RIGHT BUNDLE BRANCH BLOCK [120+ ms QRS DURATION, UPRIGHT V1, 40+ ms S IN I/aVL/V4/V5/V6] MODERATE T-WAVE ABNORMALITY, CONSIDER LATERAL ISCHEMIA [-0.1+ mV T-WAVE IN I/aVL/V5/V6] Compared to ECG 08/13/2022 16:24:47 Right-axis deviation now present Right bundle-branch block now present T-wave abnormality now present Possible ischemia now present Atrial fibrillation no longer present Left-axis deviation no longer present Electronically Signed On 08-13-2022 17:51:28 CDT by Kervin Segundo M.D. [email or web address]
[2022-08-13 19:38] LABS: Troponin 5 2HR 62.33 ng/L (0-15); Troponin 5 2HR Delta -3.67 ABS# (0-10)
--- NOTE | 2022-08-13 22:24 | ECG_ITS ---
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 Measurements Intervals [place] Rate: 81 P: 0 DC: 0 QRS: 137 QRSD: 129 T: -27 QT: 405 QTc: 470 Interpretive Statements ATRIAL FIBRILLATION RIGHT AXIS DEVIATION [QRS AXIS > 100] RIGHT BUNDLE BRANCH BLOCK [120+ ms QRS DURATION, UPRIGHT V1, 40+ ms S IN I/aVL/V4/V5/V6] ANTEROSEPTAL MYOCARDIAL INFARCTION , OF INDETERMINATE AGE [40+ ms Q WAVE IN V1-V4] Compared to ECG 08/13/2022 17:47:12 Myocardial infarct finding now present Ventricular-paced complex(es) or rhythm no longer present T-wave abnormality no longer present Possible ischemia no longer present Electronically Signed On 08-13-2022 22:42:31 CDT by Kervin Segundo M.D. [id number]
[2022-08-14] VITALS (10 sets, daily range): BP systolic 153–181; BP diastolic 71–83; PULSE 73–92; RESP 15–20; TEMP 36.7–37.3; O2SAT 93–96; BMI 43.8
--- NOTE | 2022-08-14 01:09 | USCV_ITS ---
Giles Guillaume Age: 72 Gender: M : 1950 Exam Date: 08/14/2022 03:31 Ordering Phys: Melanie Orlando MD Technologist: TATI [place] [facility] [place]: worsening CHF, BLE edema, history of PAD, Afib, HTN, pacer 2021 BP: 169 / 86 HR: 73 Rhythm: Atrial fibrillation Technical Quality: Technically difficult c/o body habitus w/optison MEASUREMENTS (Male / Female) Normal Values 2D ECHO LV Diastolic Diameter PLAX 4.5 cm 4.2 - 5.9 / 3.9 - 5.3 cm LV Systolic Diameter PLAX 3.0 cm IVS Diastolic Thickness 1.8 cm 0.6 - 1.0 / 0.6 - 0.9 cm IVS Systolic Thickness 2.2 cm LVPW Diastolic Thickness 1.7 cm 0.6 - 1.0 / 0.6 - 0.9 cm LVPW Systolic Thickness 2.5 cm LVOT Diameter 2.0 cm LV Ejection Fraction 2D Teich 62.8 % LV Ejection Fraction MOD 2C 69.0 % LV Ejection Fraction 2C AL 69.5 % LA Diameter 5.4 cm LA Width 5.3 cm LA Height 6.0 cm RA Width 5.1 cm RA Height 6.2 cm Aorta at Sinotubular Diameter 2.9 cm IVC Diameter 2.6 cm M-MODE Aortic Annulus Diameter 3.5 cm LA Ao Ratio MM 1.7 MV E Point Septal Separation 0.5 cm DOPPLER AV Peak Velocity 114.0 cm/s LVOT Peak Velocity 67.0 cm/s AV Area Cont Eq vti 1.7 cm squared AV Area Cont Eq pk 1.9 cm squared MV Area PHT 3.2 cm squared MV E' Velocity 70.0 cm/s Mitral E to MV E' Ratio 17.8 Mitral E to LV E' Lateral Ratio 20.2 Mitral E to LV E' Septal Ratio 16.1 TV Peak E Velocity 84.0 cm/s PV Peak Velocity 95.0 cm/s RV Acceleration Time 0.1 s RV Ejection Time 0.3 s RV AcT/ET 0.3 FINDINGS Left Ventricle Normal left ventricular size and systolic function, EF 65 %. No regional wall motion abnormalities. Right Ventricle The right ventricle is normal in size and function. Right Atrium The right atrium is normal in size. Left Atrium Mildly increased left atrial size. Mitral Valve Thickened mitral valve.mild mitral annular calcification. Aortic Valve Thickened aortic valve. Tricuspid Valve No gross abnormalities noted Pulmonic Valve Pulmonic valve not well visualized. Pericardium There is trivial pericardial effusion. Aorta Normal ascending aorta dimension. IVC The inferior vena cava appears normal. CONCLUSIONS Normal left ventricular size and systolic function, EF 65 %. No regional wall motion abnormalities. Mildly increased left atrial size. Thickened mitral valve. There is trivial pericardial effusion. There are no intracardiac masses. Technically difficult study because of the poor ultrasonic window. (Echo contrast - Optison was used to delineate the endocardium and to estimate the LV ejection fraction) Dr Refugio Kraus MD FACC (Electronically Signed) Final Date: 15 Aug 2022 16:14 S
--- NOTE | 2022-08-14 01:09 | PM.HP ---
Providers/Chief Complaint Admitting Physician: Melanie Orlando MD Primary Care Provider: Jessica Bui MD Chief Complaint: Swelling in Legs and arms History of Present Illness Giles Guillaume is a 72 year old male with past medical history of?PAD, Diastolic heart failure, Atrial Fibrillation, essential hypertension, and pacemaker in place. He visited with his furnace cleaner this morning and was found to have gained a significant amount of weight, increased lower extremity swelling, dyspnea on exertion which has been worsening over the last several weeks. He has increased his Lasix to 80 mg p.o. daily and has a second diuretic added (does not recall the name) however this has not made any significant difference to his symptoms. He is also complaining of increasing swelling over the right upper arm dating back over the last 3 to 4 weeks with pain at the wrist. He is has a difficulty forming a fist and difficulty moving at his wrist joint. It is painful. He has not noticed any obvious redness warmth over the site. The left arm appears to be unaffected. Review of Systems General: Reports: 10 or more systems reviewed and unremarkable except in HPI and below Const: Denies: fever(s), chills or body aches Eyes: Denies: change in vision, blurry vision or photophobia ENMT: Reports: hoarseness; Denies: throat pain, enlarged tonsils, odynophagia or nasal congestion Card: Denies: chest pain, palpitations, irregular heart rhythm, edema, swelling of feet/ankles, lightheadedness, pre-syncope, dyspnea on exertion or orthopnea Resp: Denies: dyspnea, productive cough, non-productive cough, wheezing, stridor, pain on inspiration, change in phlegm color, hemoptysis or chest congestion GI: Denies: abdominal pain, nausea, vomiting, hematemesis, coffee ground emesis, dysphagia, heartburn, diarrhea, constipation, GI cramping, change in stool character, hematochezia or melena : Denies: flank pain, dysuria, urinary frequency, urinary urgency, urinary hesitancy or hematuria Musc: Denies: neck pain, back pain, extremity pain, joint swelling, joint warmth or deformity Neuro: Denies: headache(s), numbness in extremities, weakness in extremities, sensory changes, difficulty walking, frequent falls, dizziness, vertigo, behavioral changes, Slurred speech present or seizure-like activity Psych: Denies: anxiety, depression, suicidal ideation or homicidal ideation Endo: Denies: polyuria, polydipsia, tired all the time, cold intolerance or hot flashes Bharat/Lymph: Denies: easy bruising or easy bleeding Medications/Allergies Home Medications Medication Instructions Recorded Confirmed Last Taken Type pregabalin 150 mg capsule (Lyrica) 150 mg PO BID 06/25/21 08/13/22 Unknown History apixaban 5 mg tablet (Eliquis) 5 mg PO BID 30 days #60 tabs 07/04/21 08/13/22 06/25/21 Rx cholecalciferol (vitamin D3) 50 2,000 unit PO QAM 30 days #30 tabs 07/04/21 08/13/22 06/25/21 Rx mcg (2,000 unit) tablet (Vitamin D3) finasteride 5 mg tablet 5 mg PO DAILY 30 days #30 tabs 07/04/21 08/13/22 10/31/19 Rx multivitamin 1 tab PO DAILY 30 days #30 tabs 07/04/21 08/13/22 06/25/21 Rx potassium chloride 20 mEq 40 meq PO DAILY #120 tabs 07/04/21 08/13/22 06/25/21 Rx tablet,extended release tamsulosin 0.4 mg capsule 0.4 mg PO BEDTIME 30 days #30 caps 07/04/21 08/13/22 06/24/21 Rx furosemide 80 mg tablet (Lasix) 40 mg PO QAM PRN Edema 30 days #30 07/09/21 08/13/22 06/25/21 Rx tabs ottobock afo to right #1 ea 08/05/21 07/30/22 Unknown Rx insulin glargine 100 unit/mL (3 5 unit SUBCUT BEDTIME 02/10/22 08/13/22 Unknown History mL) subcutaneous pen Diabetic Shoes with 3 pairs of #1 ea 06/18/22 08/13/22 Unknown Rx inserts Silver Alginate Dressing and 2 #1 ea 08/06/22 08/13/22 Unknown Rx Layer Compression System Wraps Allergies Allergy/AdvReac Type Severity Reaction Status Date / Time aspirin Allergy ALGY-Anaphy Verified 08/13/22 14:27 laxis carvedilol AdvReac diarrhea Verified 08/13/22 14:27 hydralazine AdvReac vomiting Verified 08/13/22 14:27 PFSH Acute PFSH: Medical History Abnormal nuclear stress test Accelerated hypertension Acute kidney injury Atrial fibrillation Chronic, history of bradycardia with beta blockers, on eliquis Atrial fibrillation Bilateral lower leg cellulitis BMI 40.0-44.9, adult BPH NOS w/o ur obs/LUTS Bradycardia Calculus of proximal ureter Chronic anticoagulation eliquis Chronic diastolic heart failure Chronic kidney disease CKD (chronic kidney disease) Congestive heart failure Coronary artery disease Evaluated in [place], patient reports 55% narrowing unknown vessel no stent or angioplasty done CVA (cerebral vascular accident) residual right weakness Diabetes mellitus, type II Diabetic neuropathy associated with type 2 diabetes mellitus Hyperkalemia Hyperlipidemia Hypertension Ischemic toe ulcer Lumbar foraminal stenosis Nicotine dependence, chewing tobacco, with other nicotine-induced disorders Obesity BMI-42 kg/m2 Obstructive sleep apnea not on treatment by choice Osteoarthritis PAD (peripheral artery disease) Peripheral arterial disease Pes planus of both feet Physical deconditioning PVD (peripheral vascular disease) Renal calculus, right Rhabdomyolysis Squamous cell carcinoma in situ Temporary transvenous cardiac pacemaker present Surgical History Hx of colonoscopy with polypectomy No pertinent past surgical history Status post cardiac pacemaker procedure Family History Mother , 87 Diabetes CAD (coronary artery disease) Hypertension Father , 60 No problems noted. Social History Smoking and tobacco status: current every day smoker (chew tobacco) pipe Pipes smoked per week: 1 Years smoked pipe: 54 and smokeless tobacco Smokeless tobacco user: chewing tobacco Alcohol intake: former Year of sobriety/quit date alcohol: 26 y Former alcohol use details: heavy use, 5 DWI's Substance/Drug Use: former Household members: none Housing: House Marital status: service: Yes Current occupational status: retired Vitals/I&O/Wt Last Vital Signs Temp 98.0 F 08/13/22 23:53 Pulse 71 08/13/22 23:53 Resp 17 08/13/22 23:53 BP 169/86 08/13/22 23:53 Pulse Ox 97 08/13/22 23:53 O2 Del Method Room Air 08/13/22 23:53 Weight last 48 hrs Weight 150.593 kg Weight 150.593 kg Physical Exam Narrative: General: No acute distress, AO x3 HEENT: PERRLA, pupils bilaterally equal and reactive, pallors not present Chest: Normal vesicular breath sounds, no added sounds, equal good air entry bilaterally CVS: S1-S2 regular, no murmurs, no tachycardia, no gallops, no rubs Abdomen: Soft, nontender, no organomegaly, bowel sounds present Neuro: No focal deficits, no facial deformity, AO x3, power 5/5 in all limbs Extremities: Pitting bilateral lower extremity edema, currently is leg is wrapped and wraps, gross anasarca Data 08/13/22 16:35 08/14/22 04:37 A&P Assessment and plan (1) CHF exacerbation: 72-year-old male presenting with increasing anasarca and progressive dyspnea over the past few weeks Symptoms are not controlled with increasing his dose of diuretics at home. Last echocardiogram dates back to May 2021 at which time views were very limited he had evidence of mild LVH and possibly normal EF. 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 Denies any chest pain, no acute ST-T wave changes noted on EKG Lasix 40 mg IV every 12 hours Monitor for urine output and kidney function Replete potassium with goal potassium of 4 Qualifiers: Heart failure type: combined systolic and diastolic Qualified Code(s): I50.43 - Acute on chronic combined systolic (congestive) and diastolic (congestive) heart failure (2) Swelling of right upper extremity: Upper extremity Doppler negative for DVT Patient does not recall any obvious trauma to the right arm prior to onset of symptoms We will obtain x-ray of the right wrist and hand Swelling appears to involve only the right upper extremity and sparing the left upper extremity, less likely that unilateral swelling is related to the anasarca process. If x-ray imaging remains negative, may need to obtain further imaging to rule out thoracic outlet obstruction Alternate differential includes gout, no prior history of the same. We will start patient on colchicine presumptively and monitor for response (3) Hypokalemia: Repleted with oral supplementation Recheck with a.m. labs (4) Hypertension: Currently SBP ~160-170 Start amlodipine Qualifiers: Hypertension type: other secondary hypertension Qualified Code(s): I15.8 - Other secondary hypertension (5) Atrial fibrillation: Currently rate controlled Continue Mary Anne Does not appear to have any rate control medications on record Attestations Medical Necessity Statement*: Greater than 2 midnight admission is anticipated for need of IV diuresis, closely monitor kidney and renal function Monitor for serial improvement Coding Level of Care Code Acute Code for [facility] Fwd Diagnoses CHF exacerbation I50.43 Heart failure type: combined systolic and diastolic Swelling of right upper extremity M79.89 Hypokalemia E87.6 Hypertension I15.8 Hypertension type: other secondary hypertension Atrial fibrillation I48.91
[2022-08-14] MEDS: FUROsemide 10 mg/mL SDV 4mL 40 MG IVP ×2 (05:24→18:29)
[2022-08-14 05:32] LABS: Alanine Aminotransferase 15 U/L (0-41); Albumin Level 3.8 g/dL (3.5-5.2); Alkaline Phosphatase 95 U/L (40-130); Anion Gap 14.9 (5-19); Aspartate Amino Transferase 17 U/L (0-40); Blood Urea Nitrogen 14 mg/dL (8-23); Calcium 9.1 mg/dL (8.5-10.5); Carbon Dioxide 30 mmol/L (22-29); Chloride 98 mmol/L (98-107); Globulin 2.6 g/dL (1.3-4.6); Glucose 253 mg/dL (65-115); Osmolality Calculated 299 mOsm/kg (285-295); Sodium 140 mmol/L (136-145); Total Bilirubin 0.4 mg/dL (0.15-1.2); Total Protein 6.4 g/dL (6.6-8.7)
[2022-08-14 05:44] LABS: Potassium 2.9 mmol/L (3.5-5.1)
[2022-08-14] MEDS: perflutren protein-a microsphr 0.22 mg/mL SDV 3 mL IV (05:51)
[2022-08-14 06:42] LABS: Glucose Point of Care 259 mg/dL (70-110)
--- NOTE | 2022-08-14 07:06 | XR_ITS ---
WS: [id number] Right hand, 2 views, 08/14/2022 Clinical Data: right wrist swelling Comparison: None. Findings: No fractures or dislocations are seen. There is soft tissue swelling over the dorsum of t he hand. The joint spaces are normal XR/XR hand RT 2V [id number] Impression: 1. Negative for right hand fracture. 2. Soft tissue swelling over the dorsum of the hand.
[2022-08-14 07:41] LABS: Glucose Point of Care 250 mg/dL (70-110)
[2022-08-14] MEDS: pregabalin 150 mg Capsule PO ×2 (08:21→17:49)
[2022-08-14] MEDS: finasteride 5 mg Tablet PO (08:21)
[2022-08-14] MEDS: colchicine 0.6 mg Tablet 1.2 MG PO (08:21)
[2022-08-14] MEDS: potassium chloride ER 20 mEq Tablet 40 MEQ PO (08:22)
[2022-08-14] MEDS: apixaban 5 mg Tablet PO ×2 (08:22→17:49)
[2022-08-14] MEDS: pantoprazole DR 40 mg Tablet PO (08:22)
[2022-08-14] MEDS: amlodipine 5 mg Tablet PO (08:22)
[2022-08-14] MEDS: morphine 4 mg/mL SDV 1 mL 2 MG IVP ×2 (10:14→15:19)
[2022-08-14] MEDS: colchicine 0.6 mg Tablet PO (10:18)
--- NOTE | 2022-08-14 10:18 | PC.NURSE ---
Colchicine administered late d/t Dr. Orlando's approval for 1 time order then waiting 1 hour post to administer regularly scheduled dose.
[2022-08-14] MEDS: insulin lispro 100 unit/1 mL SUBCUT ×4 (10:25→21:03)
[2022-08-14 11:12] LABS: Glucose Point of Care 350 mg/dL (70-110)
--- NOTE | 2022-08-14 11:40 | P.MISC_ITS ---
Miscellaneous Note Note: he was seen and examined was complaining of right hand pain and wrist pain Nurse notified to give him opioids Patient is clinically fluid overloaded Currently on room air Lives alone at home GCS 15 Severe anasarca Right arm swelling as compared to left Slightly warm to touch as compared to left wrist area No active signs of hyperemia or erythematous discharge S1, S2 Plan Continue diuresis Continue opioids and anti-inflammatory medications Patient is full code Lives alone at home Monitor 1 more day Chronic kidney disease creatinine seems around baseline Patient does not watch his sodium and fluid intake I did consumer credit counselor him regarding negative fluid balance and dry weight Troponin trending down No active chest pain Check uric acid, no signs of DVT
[2022-08-14 12:18] LABS: Uric Acid 11.6 mg/dL (3.4-7.0)
[2022-08-14] MEDS: oxyCODONE-APAP 10-325 mg Tablet 1 TAB PO ×2 (12:45→21:01)
[2022-08-14] MEDS: predniSONE 20 mg Tablet 60 MG PO (12:45)
[2022-08-14 16:36] LABS: Glucose Point of Care 251 mg/dL (70-110)
[2022-08-14 20:45] LABS: Glucose Point of Care 352 mg/dL (70-110)
[2022-08-14] MEDS: tamsulosin 0.4 mg Capsule PO (21:01)
[2022-08-14] MEDS: insulin glargine 100 units/1 mL 5 UNIT SUBCUT (21:02)
[2022-08-15] VITALS (10 sets, daily range): BP systolic 141–169; BP diastolic 72–92; PULSE 77–99; RESP 16–20; TEMP 36.7–36.8; O2SAT 93–96
[2022-08-15 03:28] LABS: Basophils % 0.2 %; Hematocrit 44.1 % (42.0-52.0); Hemoglobin 14.6 g/dL (11.7-16.6); Lymphocytes # 1.3 10^3/uL (0.8-4.8); Lymphocytes % 10.5 %; Mean Corpuscular HGB Conc 33.1 g/dL (30.0-36.0); Mean Corpuscular Hemoglobin 28.2 pg (28.0-34.0); Mean Corpuscular Volume 85.1 fl (80-94); Monocytes # 0.5 10^3/uL (0.2-0.9); Monocytes % 4.4 %; Neutrophils # 10.23 10^3/uL (1.8-7.7); Neutrophils % 84.1 %; Nucleated Red Blood Cells % 0 %; Platelet Count 176 10^3/cmm (130-400); Red Blood Count 5.18 10^6/uL (4.1-5.3); Red Cell Distribution Width 12.9 % (12.1-15.1); White Blood Count 12.2 10^3/uL (4.0-10.0)
[2022-08-15 03:50] LABS: Anion Gap 15.1 (5-19); Blood Urea Nitrogen 17 mg/dL (8-23); Calcium 9.1 mg/dL (8.5-10.5); Carbon Dioxide 31 mmol/L (22-29); Chloride 96 mmol/L (98-107); Glucose 332 mg/dL (65-115); Osmolality Calculated 303 mOsm/kg (285-295); Potassium 3.1 mmol/L (3.5-5.1); Sodium 139 mmol/L (136-145)
[2022-08-15] MEDS: FUROsemide 10 mg/mL SDV 4mL 40 MG IVP ×2 (05:29→17:42)
[2022-08-15] MEDS: oxyCODONE-APAP 10-325 mg Tablet 1 TAB PO ×4 (05:43→21:16)
[2022-08-15 06:41] LABS: Glucose Point of Care 345 mg/dL (70-110)
--- NOTE | 2022-08-15 06:49 | P.PN_ITS ---
Subjective Subjective: Uric acid is 11 Complaining of wrist pain Received colchicine He is on steroids No fever adequate urine output Patient is on steroids which was explain his leukocytosis Vitals/I&O/Wt Last Vital Signs Temp 98.0 F 08/15/22 03:51 Pulse 77 08/15/22 03:51 Resp 18 08/15/22 05:43 BP 148/81 08/15/22 03:51 Pulse Ox 95 08/15/22 03:51 O2 Del Method Room Air 08/15/22 03:51 08/14/22 08/14/22 08/15/22 14:59 22:59 06:59 Intake Total 594 / 594 340 / 934 Output Total 1100 / 1100 1000 / 2100 300 / 2400 Balance -506 / -506 -660 / -1166 -300 / -1466 Weight last 48 hrs Weight 150.593 kg Weight 150.593 kg Physical Exam Narrative: Signs of fluid overload A-fib without RVR Anasarca Right hand swelling no significant improvement Abdomen distended nontender Nonfocal neuro exam GCS 15 Complaining of right wrist pain S1, S2 variable Currently on room air Data 08/15/22 02:43 08/15/22 02:43 A&P Assessment and plan (1) Acute on chronic diastolic (congestive) heart failure: (2) Hypokalemia: (3) CHF exacerbation: Qualifiers: Heart failure type: combined systolic and diastolic Qualified Code(s): I50.43 - Acute on chronic combined systolic (congestive) and diastolic (congestive) heart failure (4) Swelling of right upper extremity: (5) PAD (peripheral artery disease): (6) Gout attack: (7) Constipation: Plan Acute diastolic CHF exacerbation Continue diuretics adequate urine output Gout with right wrist swelling Currently on colchicine and therapeutic steroids Significant improvement in swelling and pain Patient is happy with his progress A-fib without RVR Continue anticoagulating agent Patient lives alone, uses a walker at home Full code Cardiac consistent carb diet Hyperglycemia noted Adjust insulin sliding scale He is also experiencing steroid-induced hyperglycemia Patient does not monitor his fluid or sodium intake at home Dietary noncompliance would explain his CHF exacerbation We will also like to rule out nocturnal hypoxemia we will request nocturnal pulse ox Constipation we will give him lactulose Attestations Medical Necessity Statement*: Continue medical management Patient might be able to go home tomorrow Coding Level of Care Code 11796 Moderate MDM includes number and complexity of problems actively addressed during encounter, amount and/or complexity of data reviewed/ordered and described risk of complication, morbidity or mortality of management as docu mented Diagnoses Acute on chronic diastolic (congestive) heart failure I50.33 Hypokalemia E87.6 CHF exacerbation I50.43 Heart failure type: combined systolic and diastolic Swelling of right upper extremity M79.89 PAD (peripheral artery disease) I73.9 Gout attack M10.9 Constipation K59.00
[2022-08-15] MEDS: potassium chloride ER 20 mEq Tablet 40 MEQ PO ×2 (08:22→15:34)
[2022-08-15] MEDS: insulin lispro 100 unit/1 mL SUBCUT ×4 (08:22→17:20)
[2022-08-15] MEDS: predniSONE 20 mg Tablet 60 MG PO (08:23)
[2022-08-15] MEDS: apixaban 5 mg Tablet PO ×2 (08:23→17:22)
[2022-08-15] MEDS: pantoprazole DR 40 mg Tablet PO (08:23)
[2022-08-15] MEDS: amlodipine 5 mg Tablet PO (08:23)
[2022-08-15] MEDS: pregabalin 150 mg Capsule PO ×2 (08:23→17:22)
[2022-08-15] MEDS: colchicine 0.6 mg Tablet PO (08:23)
[2022-08-15] MEDS: sennosides-docusate Tablet 1 TAB PO (08:23)
[2022-08-15] MEDS: finasteride 5 mg Tablet PO (08:23)
[2022-08-15 11:33] LABS: Glucose Point of Care 270 mg/dL (70-110)
[2022-08-15] MEDS: lactulose oral liq 20 gm/30 mL UDC PO (15:35)
[2022-08-15 16:51] LABS: Glucose Point of Care 422 mg/dL (70-110)
[2022-08-15] MEDS: tamsulosin 0.4 mg Capsule PO (21:16)
[2022-08-15] MEDS: insulin glargine 100 units/1 mL 12 UNIT SUBCUT (21:16)
[2022-08-15 21:34] LABS: Glucose Point of Care 364 mg/dL (70-110)
--- NOTE | 2022-08-15 21:36 | PC.NURSE ---
This nurse entered the patient's room and introduced self and explained what tasks needed to be completed and what meds were brought in for the patient to take. The patient stared at this nurse and did not say anything. This nurse asked the patient to describe his pain and rate it on a 1-10 scale. The patient stated It's pretty bad. after a long pause. This nurse asked for a number. The patient replied I'm not telling you, because I have nothing to do with you. This nurse asked the patient what he meant. The patient stated that he would not allow this nurse to do anything, that he would not be taking any meds, and that he was going to be leaving. This nurse educated the patient on why he is here, why it is important that he takes his medication, and why it is important that he complies with doctors orders. The patient agreed to take evening medications and pain medication, but only after stating that he refuses to take anymore Lasix, since I have to go buy a recliner tomorrow and I'm not taking any damn lasix to go home on. After accepting medications, the patient allowed this nurse to complete an assessment. All needs met at this time, call light in reach.
[2022-08-15 22:18] LABS: Glucose Point of Care 400 mg/dL (70-110)
[2022-08-16] VITALS: BP 167/80; PULSE 79; RESP 13; TEMP 37; O2SAT 92
[2022-08-16 00:09] VITALS: PULSE 73; O2SAT 91
[2022-08-16 03:05] VITALS: PULSE 88; O2SAT 93
[2022-08-16 04:00] VITALS: BP 162/93; PULSE 84; RESP 19; TEMP 36.8; O2SAT 92
[2022-08-16 05:33] LABS: Basophils % 0.1 %; Hematocrit 43.8 % (42.0-52.0); Hemoglobin 14.6 g/dL (11.7-16.6); Lymphocytes # 1.6 10^3/uL (0.8-4.8); Lymphocytes % 14.1 %; Mean Corpuscular HGB Conc 33.3 g/dL (30.0-36.0); Mean Corpuscular Hemoglobin 28.6 pg (28.0-34.0); Mean Corpuscular Volume 85.7 fl (80-94); Mean Platelet Volume 11.1 fL (7.4-10.4); Monocytes # 0.7 10^3/uL (0.2-0.9); Nucleated Red Blood Cells % 0 %; Platelet Count 167 10^3/cmm (130-400); Red Blood Count 5.11 10^6/uL (4.1-5.3); Red Cell Distribution Width 13.1 % (12.1-15.1); White Blood Count 11.3 10^3/uL (4.0-10.0)
[2022-08-16 05:57] LABS: Magnesium 1.9 mg/dL (1.7-2.3)
--- NOTE | 2022-08-16 06:18 | P.DS_ITS ---
Discharge Providers Date of Admission: 08/13/22 20:07 Date of Discharge: August 16, 2022 Attending Provider at Admission: Melanie Orlando MD Attending Provider at Discharge: Nik Douglas MD Primary Care Provider: Jessica Bui MD Diagnoses at Discharge Discharge Diagnosis (1) Acute on chronic diastolic (congestive) heart failure: Status: Acute (2) Hypokalemia: Status: Acute (3) CHF exacerbation: Status: Acute Qualifiers: Heart failure type: combined systolic and diastolic Qualified Code(s): I50.43 - Acute on chronic combined systolic (congestive) and diastolic (congestive) heart failure (4) Swelling of right upper extremity: Status: Acute (5) PAD (peripheral artery disease): Status: Acute (6) Gout attack: Status: Acute (7) Constipation: Status: Acute Reason for Visit 2 Reason for Visit: Swelling in Legs and arms Hospital Course Hospital Course 72-year-old male who was admitted to the hospital for management of diastolic CHF exacerbation he was diuresed aggressively with IV Lasix, patient also was suffering from acute gout attack of right wrist with swelling which improved with use of steroids and colchicine, patient was treated for constipation as well during his hospitalization, due to use of steroids his blood sugar was consistently around 200s for which he required Lantus and high intensity sliding scale, patient lives alone, he uses a walker for ambulation, at the time of discharge she will receive prednisone taper, sliding scale of insulin to prevent steroid-induced hyperglycemia, Bumex along potassium supplements he has chronic kidney disease, creatinine seems to be around baseline throughout hospitalization. Patient does have CPAP at home for sleep patient goes to [place] [facility] for now I will give him medications through our pharmacy with prednisone taper, Bumex and colchicine Physical Exam Narrative: Clinical signs of CHF improving Abdomen soft S1, S2 Right arm and wrist swelling improving, no signs of cellulitis Pleasant and cooperative Currently on room air Discharge Data Studies Completed and Pending Completed Studies During Hospitalization Category Date Time Status XR chest 1V portable [id number] Stat Exams 08/13/22 16:19 Completed XR hand RT 2V [id number] Routine Exams 08/14/22 07:06 Completed CV. echo wo/w contrast [id number] Routine Ultrasound 08/14/22 01:09 Completed US venous duplex upper extremity RT [CV venous duplex Ultrasound 08/13/22 16:14 [place] [id number]] Stat Pending at discharge Category Date Time Status Basic Metabolic Panel AM LABS Lab 08/16/22 05:15 Received Radiology Impressions Venous Duplex 08/13/22 16:14 IMPRESSION: No evidence of deep vein thrombosis. Chest X-Ray 08/13/22 16:19 Impression: Cardiomegaly and atherosclerosis. Hand X-Ray 08/14/22 07:06 Impression: 1. Negative for right hand fracture. 2. Soft tissue swelling over the dorsum of the hand. Laboratory Results WBC 11.3 10^3/uL (4.0-10.0) H 08/16/22 05:15 RBC 5.11 10^6/uL (4.1-5.3) 08/16/22 05:15 Hgb 14.6 g/dL (11.7-16.6) 08/16/22 05:15 Hct 43.8 % (42.0-52.0) 08/16/22 05:15 MCV 85.7 fl (80-94) 08/16/22 05:15 MCH 28.6 pg (28.0-34.0) 08/16/22 05:15 MCHC 33.3 g/dL (30.0-36.0) 08/16/22 05:15 RDW 13.1 % (12.1-15.1) 08/16/22 05:15 Plt Count 167 10^3/cmm (130-400) 08/16/22 05:15 MPV 11.1 fL (7.4-10.4) H 08/16/22 05:15 Neut % (Auto) 79.0 % 08/16/22 05:15 Lymph % (Auto) 14.1 % 08/16/22 05:15 [place] % (Auto) 6.0 % 08/16/22 05:15 Eos % (Auto) 0.0 % 08/16/22 05:15 Baso % (Auto) 0.1 % 08/16/22 05:15 Neut # (Auto) 8.90 10^3/uL (1.8-7.7) H 08/16/22 05:15 Lymph # (Auto) 1.6 10^3/uL (0.8-4.8) 08/16/22 05:15 [place] # (Auto) 0.7 10^3/uL (0.2-0.9) 08/16/22 05:15 Eos # (Auto) 0.0 10^3/uL (0.0-0.8) 08/16/22 05:15 Baso # (Auto) 0.0 10^3/uL (0.0-0.1) 08/16/22 05:15 Nucleated RBC % (auto) 0 % 08/16/22 05:15 Nucleated RBCs # 0.0 /100WBC 08/16/22 05:15 Sodium 139 mmol/L (136-145) 08/15/22 02:43 Potassium 3.1 mmol/L (3.5-5.1) L 08/15/22 02:43 Chloride 96 mmol/L (98-107) L 08/15/22 02:43 Carbon Dioxide 31 mmol/L (22-29) H 08/15/22 02:43 Anion Gap 15.1 (5-19) 08/15/22 02:43 BUN 17 mg/dL (8-23) 08/15/22 02:43 Creatinine 1.4 mg/dL (0.7-1.2) H 08/15/22 02:43 GFR Calculation Not Reportable 08/15/22 02:43 Glucose 332 mg/dL (65-115) H 08/15/22 02:43 POC Glucose 400 mg/dL (70-110) H 08/15/22 22:12 Calculated Osmolality 303 mOsm/kg (285-295) H 08/15/22 02:43 Uric Acid 11.6 mg/dL (3.4-7.0) H 08/14/22 04:37 Calcium 9.1 mg/dL (8.5-10.5) 08/15/22 02:43 Magnesium 1.9 mg/dL (1.7-2.3) 08/16/22 05:15 Total Bilirubin 0.4 mg/dL (0.15-1.2) 08/14/22 04:37 AST 17 U/L (0-40) 08/14/22 04:37 ALT 15 U/L (0-41) 08/14/22 04:37 Alkaline Phosphatase 95 U/L (40-130) 08/14/22 04:37 Troponin T Baseline 66 ng/L (0-15) H 08/13/22 16:35 Troponin T 120 Minute 62.33 ng/L (0-15) H 08/13/22 18:33 Delta Troponin T -3.67 ABS# (0-10) L 08/13/22 18:33 Troponin T Hi Sens 6Hr 63.00 ng/L (0-15) H 08/13/22 22:00 Troponin T Hi Sens 6Hr Delta -3.00 ng/L (0-12) L 08/13/22 22:00 NT-Pro-B Natriuret Pep 1090 pg/mL (0-125) H 08/13/22 16:35 Total Protein 6.4 g/dL (6.6-8.7) L 08/14/22 04:37 Albumin 3.8 g/dL (3.5-5.2) 08/14/22 04:37 Globulin 2.6 g/dL (1.3-4.6) 08/14/22 04:37 Vitals Last Vital Signs Temp 98.2 F 08/16/22 04:00 Pulse 84 08/16/22 04:00 Resp 19 H 08/16/22 04:00 BP 162/93 08/16/22 04:00 Pulse Ox 92 08/16/22 04:00 O2 Del Method Room Air 08/16/22 04:00 Discharge Plan Discharge Patient Disposition: Home Condition: Stable Prescriptions: New bumetanide 1 mg tablet 2 mg PO DAILY Qty: 90 0RF prednisone 10 mg tablet 10 mg PO DIRECTED Qty: 12 0RF Rx Instructions: 30 mg for 2 days, 20 mg for 2 days then 10 mg for 2 days, then stop colchicine [Colcrys] 0.6 mg tablet 0.6 mg PO DAILY Qty: 30 0RF Continued (DME) ottobock afo to right See Rx Instructions .Route .MEDSUPPLY Qty: 1 0RF Rx Instructions: As directed by [employer] (DME) Diabetic Shoes with 3 pairs of inserts See Rx Instructions .ROUTE .MEDSUPPLY Qty: 1 0RF Rx Instructions: As directed by [employer] [employer] [facility] insulin glargine 100 unit/mL (3 mL) insulin pen 61 unit SUBCUT BEDTIME (DME) Silver Alginate Dressing and 2 Layer Compression System Wraps See Rx Instructions .Route .MEDSUPPLY Qty: 1 0RF Rx Instructions: Dressing supplies needed for 30 days with 3 Refills multivitamin Tablet 1 tab PO DAILY 30 Days Qty: 30 0RF tamsulosin 0.4 mg capsule 0.4 mg PO BEDTIME 30 Days Qty: 30 0RF finasteride 5 mg tablet 5 mg PO DAILY 30 Days Qty: 30 0RF cholecalciferol (vitamin D3) [Vitamin D3] 2,000 unit Tablet 2,000 unit PO QAM 30 Days Qty: 30 0RF Eliquis 5 mg tablet 5 mg PO BID 30 Days Qty: 60 0RF pentoxifylline 400 mg Tablet Extended Release 400 mg PO DAILY amlodipine 10 mg Tablet 10 mg PO DAILY Lyrica 300 mg Capsule 300 mg PO BID Ozempic 0.25 mg or 0.5 mg (2 mg/3 mL) Pen Injector 1 mg SUBCUT Q7D Rx Instructions: On Thursday Changed potassium chloride 20 mEq Tablet Extended Release 40 meq PO DAILY Qty: 60 0RF Discontinued Lasix 40 mg Tablet 40 mg PO DAILY Discharge Orders: Discharge Order (Routine); Ordered 08/16/22 Ordered By: Nik Douglas Referrals: Jessica Bui MD [Primary Care Provider] - 4-7 days (Please call Thursday to schedule your appointment with Dr. Bui.) Patient Instructions: Opioid Safety Discharge Attestations Time Spent in Discharge Care*: greater than 30 min Status at Discharge: Cognitive status at discharge: cognitively intact , Behavioral status at discharge: cooperative , Quality Metrics Clinical Quality Measures [ No reported AMI, CVA or VTE this stay] Coding Level of Care Code Acute Code for [facility] Fwd Diagnoses Acute on chronic diastolic (congestive) heart failure I50.33 Hypokalemia E87.6 CHF exacerbation I50.43 Heart failure type: combined systolic and diastolic Swelling of right upper extremity M79.89 PAD (peripheral artery disease) I73.9 Gout attack M10.9 Constipation K59.00
[2022-08-16 07:11] LABS: Anion Gap 16.6 (5-19); Blood Urea Nitrogen 23 mg/dL (8-23); Calcium 8.8 mg/dL (8.5-10.5); Carbon Dioxide 29 mmol/L (22-29); Chloride 92 mmol/L (98-107); Glucose 354 mg/dL (65-115); Osmolality Calculated 296 mOsm/kg (285-295); Potassium 3.6 mmol/L (3.5-5.1); Sodium 134 mmol/L (136-145)
[2022-08-16 07:56] VITALS: BP 168/90; PULSE 85; RESP 16; TEMP 36.8; O2SAT 95
[2022-08-16 08:07] LABS: Glucose Point of Care 323 mg/dL (70-110)
[2022-08-16] MEDS: magnesium oxide 400 mg tablet PO (08:39)
[2022-08-16] MEDS: insulin lispro 100 unit/1 mL SUBCUT ×2 (08:39)
[2022-08-16] MEDS: finasteride 5 mg Tablet PO (08:40)
[2022-08-16] MEDS: apixaban 5 mg Tablet PO (08:40)
[2022-08-16] MEDS: pregabalin 150 mg Capsule PO (08:40)
[2022-08-16] MEDS: predniSONE 20 mg Tablet 40 MG PO (08:40)
[2022-08-16] MEDS: potassium chloride ER 20 mEq Tablet 40 MEQ PO (08:40)
[2022-08-16] MEDS: amlodipine 5 mg Tablet PO (08:40)
[2022-08-16] MEDS: pantoprazole DR 40 mg Tablet PO (08:40)
--- NOTE | 2022-08-16 10:46 | PC.SOCIAL ---
IMM update IMM updated with patient at bedside. Copy of page 2 provided. Patient verbalized understanding. Copy in chart initialed, dated and timed.
[2022-08-16 11:25] VITALS: BP 168/90; PULSE 85; RESP 16; TEMP 36.8; O2SAT 95
== END 2022-08-16 10:55 | disposition home health service (06) | DRG 291 ==
LOC: ER 20:16 → MEDSURG 22:32
PROVIDERS: Physician Assistant; Admitting Provider Student in an Organized Health Care Education/Training Program; Emergency Provider Nurse Practitioner Family; PCP Family Medicine; Visit Provider Internal Medicine
DX: I13.0 Hypertensive heart and chronic kidney disease with heart failure and stage 1 through stage 4 chronic kidney disease, or unspecified chronic kidney disease (principal); I50.33 Acute on chronic diastolic (congestive) heart failure; I48.20 Chronic atrial fibrillation, unspecified; Z68.41 Body mass index [BMI] 40.0-44.9, adult; N18.9 Chronic kidney disease, unspecified; E11.22 Type 2 diabetes mellitus with diabetic chronic kidney disease; M10.9 Gout, unspecified; K59.00 Constipation, unspecified; E11.51 Type 2 diabetes mellitus with diabetic peripheral angiopathy without gangrene; E11.40 Type 2 diabetes mellitus with diabetic neuropathy, unspecified; E11.65 Type 2 diabetes mellitus with hyperglycemia; T38.0X5A Adverse effect of glucocorticoids and synthetic analogues, initial encounter; Z99.89 Dependence on other enabling machines and devices; Z79.4 Long term (current) use of insulin; Z79.01 Long term (current) use of anticoagulants; Z95.0 Presence of cardiac pacemaker; I25.10 Atherosclerotic heart disease of native coronary artery without angina pectoris; E78.5 Hyperlipidemia, unspecified; M48.061 Spinal stenosis, lumbar region without neurogenic claudication; F17.220 Nicotine dependence, chewing tobacco, uncomplicated; E66.9 Obesity, unspecified; E87.6 Hypokalemia
CPT/HCPCS: 36415; 36416; 71045; 73120; 80048; 80053; 82962; 83735; 83880; 84484; 84550; 85025; 93005; 93971; 94762; 96372; 96374; 99214; 99285; C8929; J1815; J1940; J2270; J7512; Q9956

== ENCOUNTER → 2022-08-20 12:53 | Outpatient (BNVA) | payer OTHER, SELFPAY | PROVIDERS: PCP Family Medicine; Visit Provider Podiatrist Foot & Ankle Surgery | DX: I73.9 Peripheral vascular disease, unspecified (principal); E11.621 Type 2 diabetes mellitus with foot ulcer; L97.511 Non-pressure chronic ulcer of other part of right foot limited to breakdown of skin; E11.42 Type 2 diabetes mellitus with diabetic polyneuropathy; M21.41 Flat foot [pes planus] (acquired), right foot; M21.42 Flat foot [pes planus] (acquired), left foot; Z79.4 Long term (current) use of insulin | CPT/HCPCS: 29580 ==

== ENCOUNTER 2022-09-09 13:02 | Emergency (ER) | payer OTHER, SELFPAY ==
[2022-09-09] VITALS (7 sets, daily range): BP systolic 143–180; BP diastolic 78–100; PULSE 76–80; RESP 15–18; TEMP 36.6; O2SAT 92–96; BMI 43.4
--- NOTE | 2022-09-09 13:59 | W.ED.CHESTPA ---
HPI - Chest Pain General: Chief Complaint: Chest Pain Stated Complaint: Chest Pain Time Seen by Provider: 09/09/22 13:09 Source: patient Mode of arrival: EMS Limitations: no limitations History of Present Illness: This 72-year-old male with a history of hypertension, diabetes, and congestive heart failure presents to the ER with sudden onset weakness and inability to use the right upper extremity. He was trying to get into his truck when he had this overwhelming feeling of weakness. He thought he was going to pass out. At that time, he discovered that he could not make use of his right upper extremity. So he drove to the ambulance bay and asked them to bring him to the hospital. Here in the ER, he is able to move all extremities and his NIH stroke scale is 0. He denies chest pain. He notes that he is generally weak. Patient admitted to having only 3 hours of sleep last night and states that he is under a lot of stress right now. He would not elaborate on what the stress is. Review of Systems Const: Reports: fatigue (Generalized weakness); Denies: chills, body aches or change in appetite Eyes: Denies: change in vision or eye discharge ENMT: Denies: throat pain, dental pain or nasal discharge Card: Denies: chest pain or lightheadedness : Denies: dysuria Musc: Denies: neck pain or back pain Neuro: Denies: headache(s) or weakness in extremities Psych: Denies: depression Bharat/Lymph: Denies: easy bruising All/Imm: Denies: urticaria, tongue swelling or facial swelling PFS ED PFSH: Medical History Abnormal nuclear stress test Accelerated hypertension Acute kidney injury Acute on chronic diastolic (congestive) heart failure Atrial fibrillation Chronic, history of bradycardia with beta blockers, on eliquis Atrial fibrillation Atrial fibrillation Bilateral lower leg cellulitis BMI 40.0-44.9, adult BPH NOS w/o ur obs/LUTS Bradycardia Calculus of proximal ureter CHF exacerbation Chronic anticoagulation eliquis Chronic diastolic heart failure Chronic kidney disease CKD (chronic kidney disease) Congestive heart failure Constipation Coronary artery disease Evaluated in [place], patient reports 55% narrowing unknown vessel no stent or angioplasty done CVA (cerebral vascular accident) residual right weakness Diabetes mellitus, type II Diabetic neuropathy associated with type 2 diabetes mellitus Gout attack Hyperkalemia Hyperlipidemia Hypertension Hypokalemia Ischemic toe ulcer Lumbar foraminal stenosis Nicotine dependence, chewing tobacco, with other nicotine-induced disorders Obesity BMI-42 kg/m2 Obstructive sleep apnea not on treatment by choice Osteoarthritis PAD (peripheral artery disease) Peripheral arterial disease Pes planus of both feet Physical deconditioning PVD (peripheral vascular disease) Renal calculus, right Rhabdomyolysis Squamous cell carcinoma in situ Swelling of right upper extremity Temporary transvenous cardiac pacemaker present Surgical History Hx of colonoscopy with polypectomy No pertinent past surgical history Status post cardiac pacemaker procedure Family History Mother , 87 Diabetes CAD (coronary artery disease) Hypertension Father , 60 No problems noted. Social History Smoking and tobacco status: current every day smoker (chew tobacco) pipe Pipes smoked per week: 1 Years smoked pipe: 54 and smokeless tobacco Smokeless tobacco user: chewing tobacco Alcohol intake: former Year of sobriety/quit date alcohol: 26 y Former alcohol use details: heavy use, 5 DWI's Substance/Drug Use: former Household members: none Housing: House Marital status: service: Yes Current occupational status: retired Physical Exam Const: COMMON NORMALS: no acute distress, patient oriented x3, no limitations and alert NUTRITIONAL APPEARANCE: obese morbidly obese HENMT: COMMON NORMALS: normocephalic HEAD & SCALP: normocephalic Eye: COMMON NORMALS: EOMs intact bilaterally Neck/C-Spine: COMMON NORMALS: full ROM and supple Chest: COMMONS NORMALS: normal inspection of the chest Resp: COMMON NORMALS: normal respiratory effort, No retractions, No use of accessory muscles and clear to auscultation bilaterally AUSCULTATION: clear to auscultation bilaterally Cardio: COMMON NORMALS: regular rate and No murmurs present (Cardio) RATE: regular rate RHYTHM: abnormal rhythm irregularly irregular GI: COMMON NORMALS: Normal to inspection, nondistended, normoactive bowel sounds present and non-tender : COMMON NORMALS: Yes no CVA tenderness BLADDER/KIDNEY EXAM: Yes no CVA tenderness Back/Pelvis: COMMON NORMALS: no CVA tenderness and no thoracic nor lumbar tenderness Extremity: GENERAL: Yes normal exam except as noted OTHER: Bilateral pedal edema. Neuro: COMMON NORMALS: patient oriented x3 and no focal motor deficits SENSORIUM/ORIENTATION: Yes alert Psych: COMMON NORMALS: mental status grossly normal and cooperative Course Reevaluation(s): Reevaluation #1: Case discussed with Dr. Croft while he was in the ER. He will see patient in now. Time: 15:15 Vital Signs: Vital signs: Vital Signs Temperature 97.8 F 09/09/22 13:05 Pulse Rate 77 09/09/22 17:57 Respiratory Rate 15 09/09/22 17:57 Blood Pressure 165/84 09/09/22 17:57 Pulse Oximetry 95 09/09/22 17:57 Oxygen Delivery Me thod Room Air 09/09/22 16:18 MDM - Chest Pain Medical Decision Making Medical decision making: History as above. At the time of ER arrival, patient was at his baseline but appeared to be exhausted. He admitted that he slept only 3 hours last night. He also admitted to being under an immense amount of stress lately. He did not elaborate on that. He clearly has no suicidal thoughts. He was evaluated by the neurologist who feels that there is no indication to admit him. Initial troponin and repeat troponin 2 hours later showed a delta of -6. There is no signs to suggest that that patient is having an acute coronary syndrome at this time. He was advised to ensure he gets enough sleep at night and to follow-up with his primary care physician in 2 to 3 days for reevaluation. Reasons to return were discussed. Patient verbalized understanding and agrees with the plan. Lab Data 09/09/22 13:28 09/09/22 13:28 Radiology Impressions Chest X-Ray 09/09/22 14:21 IMPRESSION: Stable exam. Head CT 09/09/22 14:22 IMPRESSION: 1. No acute intracranial hemorrhage or edema. 2. Moderate cerebral atrophy and mild small vessel ischemic disease. No acute infarct. Laboratory Results WBC 10.6 10^3/uL (4.0-10.0) H 09/09/22 13:28 RBC 5.60 10^6/uL (4.1-5.3) H 09/09/22 13:28 Hgb 15.5 g/dL (11.7-16.6) 09/09/22 13:28 Hct 47.2 % (42.0-52.0) 09/09/22 13: MCV 84.3 fl (80-94) 09/09/22 13: MCH 27.7 pg (28.0-34.0) L 09/09/22 13: MCHC 32.8 g/dL (30.0-36.0) 09/09/22: RDW 12.9 % (12.1-15.1) 09/09/22: Plt Count 202 10^3/cmm (130-400) 09/09/22 13: MPV 10.9 fL (7.4-10.4) H 09/09/22: Neut % (Auto) 75.4 % 09/09/22: Lymph % (Auto) 17.1 % 09/09/22: [place] % (Auto) 5.5 % 09/09/22: Eos % (Auto) 1.1 % 09/09/22: Baso % (Auto) 0.5 % 09/09/22: Neut # (Auto) 8.01 10^3/uL (1.8-7.7) H 09/09/22: Lymph # (Auto) 1.8 10^3/uL (0.8-4.8) 09/09/22: [place] # (Auto) 0.6 10^3/uL (0.2-0.9) 09/09/22: Eos # (Auto) 0.1 10^3/uL (0.0-0.8) 09/09/22: Baso # (Auto) 0.1 10^3/uL (0.0-0.1) 09/09/22: Nucleated RBC % (auto) 0 % 09/09/22: Nucleated RBCs # 0.0 /100WBC 09/09/22: Sodium 142 mmol/L (136-145) 09/09/22 13: Potassium 3.1 mmol/L (3.5-5.1) L 09/09/22: Chloride 98 mmol/L (98-107) 09/09/22 13: Carbon Dioxide 30 mmol/L (22-29) H 06/13/23 13:28 Anion Gap 17.1 (5-19) 09/09/22 13:28 BUN 11 mg/dL (8-23) 09/09/22 13: Creatinine 1.2 mg/dL (0.7-1.2) 09/09/22 13: GFR Calculation Not Reportable 09/09/22 13: Glucose 187 mg/dL (65-115) H 09/09/22 13: Calculated Osmolality 298 mOsm/kg (285-295) H 09/09/22 13:28 Calcium 8.9 mg/dL (8.5-10.5) 09/09/22 13: Total Bilirubin 0.6 mg/dL (0.15-1.2) 09/09/22 13: AST 19 U/L (0-40) 09/09/22 13: ALT 14 U/L (0-41) 09/09/22 13: Alkaline Phosphatase 114 U/L (40-130) 09/09/22 13:28 Troponin T Baseline 62 ng/L (0-15) H 09/09/22 13:28 Troponin T 120 Minute 55.32 ng/L (0-15) H 09/09/22 15:10 Delta Troponin T -6.68 ABS# (0-10) L 09/09/22 15:10 Total Protein 6.3 g/dL (6.6-8.7) L 09/09/22 13: Albumin 4.0 g/dL (3.5-5.2) 09/09/22 13: Globulin 2.3 g/dL (1.3-4.6) 09/09/22 13:28 Urine Color Yellow (Yellow) 09/09/22 13:30 Urine Appearance Clear (CLEAR) 09/09/22 13:30 Urine pH 7 (5-7) 09/09/22 13: Ur Specific [place] 1.015 (1.005-1.030) 09/09/22 13: Urine Protein 1+ (Negative) H 09/09/22 13:30 Urine Glucose (UA) Norm (Normal) 09/09/22 13:30 Urine Ketones Negative (Negative) 09/09/22 13: Urine Blood 3+ (Negative) H 09/09/22 13:30 Urine Nitrate Negative (Negative) 09/09/22 13:30 Urine Bilirubin Neg (Negative) 09/09/22 13:30 Urine Urobilinogen Norm mg/dL (Negative) 09/09/22 13:30 Ur Leukocyte Esterase Negative (Negative) 09/09/22 13:30 Urine RBC 40-50 /hpf (0-2) H 09/09/22 13:30 Urine WBC 0-4 /hpf (0-5) H 09/09/22 13:30 Ur Squamous Epith Cells None /hpf (0-5) 09/09/22 13:30 Ur Transition Epith Cell None /hpf 09/09/22 13:30 Ur Renal Epithelial Cell N /hpf 09/09/22 13:30 Amorphous Sediment Trace /hpf 09/09/22 13:30 Urine Bacteria Trace /hpf (NONE) 09/09/22 13:30 Hyaline Casts 0-4 /lpf H 09/09/22 13:30 Urine Mucus Trace /hpf 09/09/22 13:30 EKG Data EKG 1: Interpretation: 1453 hrs.: A-fib, rate of 77, right bundle branch block, normal axis, no STEMI. Discharge Plan Discharge Patient Disposition: Home Clinical Impression: Generalized weakness, Acute hypokalemia Condition: Stable Prescriptions: No Action (DME) o[place] afo to right See Rx Instructions .Route .MEDSUPPLY Qty: 1 0RF Rx Instructions: As directed by [employer] (DME) Diabetic Shoes with 3 pairs of inserts See Rx Instructions .ROUTE .MEDSUPPLY Qty: 1 0RF Rx Instructions: As directed by [employer] [employer] insulin glargine 100 unit/mL (3 mL) insulin pen 61 unit SUBCUT BEDTIME (DME) Silver Alginate Dressing and 2 Layer Compression System Wraps See Rx Instructions .Route .MEDSUPPLY Qty: 1 0RF Rx Instructions: Dressing supplies needed for 30 days with 3 Refills (DME) 2 Layer Compression Bandage System- Coflex TLC LITE Calamine with Indicators 4 in x6 yard/4 in by 7 yard See Rx Instructions .Route .MEDSUPPLY Qty: 1 0RF Rx Instructions: 32 boxes needed for 3 months along with reimbursement to Home Health of 6 boxes = 38 boxes total Compression 20 to 30 mmHg- Ref. # [id number] multivitamin Tablet 1 tab PO DAILY 30 Days Qty: 30 0RF tamsulosin 0.4 mg capsule 0.4 mg PO BEDTIME 30 Days Qty: 30 0RF finasteride 5 mg tablet 5 mg PO DAILY 30 Days Qty: 30 0RF cholecalciferol (vitamin D3) [Vitamin D3] 2,000 unit Tablet 2,000 unit PO QAM 30 Days Qty: 30 0RF Eliquis 5 mg tablet 5 mg PO BID 30 Days Qty: 60 0RF pentoxifylline 400 mg Tablet Extended Release 400 mg PO DAILY amlodipine 10 mg Tablet 10 mg PO DAILY Lyrica 300 mg Capsule 300 mg PO BID Ozempic 0.25 mg or 0.5 mg (2 mg/3 mL) Pen Injector 1 mg SUBCUT Q7D Rx Instructions: On Thursday bumetanide 1 mg tablet 2 mg PO DAILY Qty: 90 0RF Colcrys 0.6 mg tablet 0.6 mg PO DAILY Qty: 30 0RF prednisone 10 mg tablet 10 mg PO DIRECTED Qty: 12 0RF Rx Instructions: 30 mg for 2 days, 20 mg for 2 days then 10 mg for 2 days, then stop potassium chloride 20 mEq Tablet Extended Release 40 meq PO DAILY Qty: 60 0RF Discharge Orders: Discharge ED (Routine); Ordered 09/09/22 Ordered By: Elvis Manning Referrals: Jessica Bui MD [Primary Care Provider] - Discharge Diet: Usual diet Discharge Activity: Resume usual activity Patient Instructions: Opioid Safety, Pain Management Activity Restrictions/Additional Instructions: Continue taking the potassium pills you already have at home. Rest and be sure to get enough sleep at night. Follow-up with your primary care physician in 3 to 5 days for reevaluation. Return if you develop any new or worsening symptoms. Coding Level of Care Code ED Tire Maintenance Technician for Yris Tee
--- NOTE | 2022-09-09 14:21 | XRR_ITS ---
PROCEDURE INFORMATION: Exam: XR Chest Exam date and time: 09/09/2022 2:27 PM Age: 72 years old Clinical indication: Pain; Angina pectoris; Prior surgery; Surgery date: 6+ months; Surgery type: Pacer; Additional info: Chest pain TECHNIQUE: Imaging protocol: Radiologic exam of the chest. Views: 1 view. COMPARISON: CR XR chest 1V portable [id number] 08/13/2022 4:29 PM FINDINGS: Tubes, catheters and devices: Stable pacemaker. Lungs: No focal infiltrates. Pleural spaces: Blunting of both costophrenic angles which are stable possibly chronic pleural reaction. Heart/Mediastinum: Cardiomegaly. Vasculature: Calcified aortic arch is stable. Bones/joints: Unremarkable. XR/XR chest 1V portable [id number] IMPRESSION: Stable exam.
--- NOTE | 2022-09-09 14:21 | ECG_ITS ---
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 Measurements Intervals [place] Rate: 77 P: 0 PA: 0 QRS: 67 QRSD: 131 T: -9 QT: 421 QTc: 479 Interpretive Statements ATRIAL FIBRILLATION RIGHT BUNDLE BRANCH BLOCK [120+ ms QRS DURATION, UPRIGHT V1, 40+ ms S IN I/aVL/V4/V5/V6] SEPTAL MYOCARDIAL INFARCTION , PROBABLY OLD [40+ ms Q WAVE IN V1/V2] Compared to ECG 08/13/2022 22:24:10 Right-axis deviation no longer present Myocardial infarct finding still present Electronically Signed On 09-09-2022 16:36:14 CDT by Dennys Fernandez M.D. [id number]
--- NOTE | 2022-09-09 14:22 | CT_ITS ---
WS: [id number] CT HEAD NONCONTRAST HISTORY: weakness right arm TECHNIQUE: Contiguous axial imaging performed through the brain in 2.5 mm imaging. Bone and soft tiss ue windows. Sagittal and coronal reformats reviewed. All CT scans at [facility] use at least one of these dose optimization techniques: automated exposure control; mA and/or kV adjustment per pa tient size (includes targeted exams where dose is matched to clinical indication); or iterative recon struction. DLP: 1120.35 mGy-cm. COMPARISON: 07/19/2021 No acute intracranial hemorrhage, midline shift or mass effect. Moderate atrophy is symmetric bilaterally. No prior infarct. Mild small vessel ischemic disease. Mild cerebellar atrophy. Ventricles: Normal size with no hydrocephalus. No inferior displacement of cerebellar tonsils. Paranasal sinuses: As visualized are clear. Mastoid air cells: Well pneumatized. Calvarium and scalp: Skull is intact with no soft tissue edema or swelling. CT/CT head thrombolytic [id number] IMPRESSION: 1. No acute intracranial hemorrhage or edema. 2. Moderate cerebral atrophy and mild small vessel ischemic disease. No acute infarct.
[2022-09-09 14:51] LABS: Basophils # 0.1 10^3/uL (0.0-0.1); Basophils % 0.5 %; Eosinophils # 0.1 10^3/uL (0.0-0.8); Eosinophils % 1.1 %; Hematocrit 47.2 % (42.0-52.0); Hemoglobin 15.5 g/dL (11.7-16.6); Lymphocytes # 1.8 10^3/uL (0.8-4.8); Lymphocytes % 17.1 %; Mean Corpuscular HGB Conc 32.8 g/dL (30.0-36.0); Mean Corpuscular Hemoglobin 27.7 pg (28.0-34.0); Mean Corpuscular Volume 84.3 fl (80-94); Mean Platelet Volume 10.9 fL (7.4-10.4); Monocytes # 0.6 10^3/uL (0.2-0.9); Monocytes % 5.5 %; Neutrophils # 8.01 10^3/uL (1.8-7.7); Neutrophils % 75.4 %; Nucleated Red Blood Cells % 0 %; Platelet Count 202 10^3/cmm (130-400); Red Cell Distribution Width 12.9 % (12.1-15.1); White Blood Count 10.6 10^3/uL (4.0-10.0)
[2022-09-09 15:10] LABS: Alanine Aminotransferase 14 U/L (0-41); Alkaline Phosphatase 114 U/L (40-130); Aspartate Amino Transferase 19 U/L (0-40); Blood Urea Nitrogen 11 mg/dL (8-23); Calcium 8.9 mg/dL (8.5-10.5); Carbon Dioxide 30 mmol/L (22-29); Chloride 98 mmol/L (98-107); Globulin 2.3 g/dL (1.3-4.6); Glucose 187 mg/dL (65-115); Osmolality Calculated 298 mOsm/kg (285-295); Sodium 142 mmol/L (136-145); Total Bilirubin 0.6 mg/dL (0.15-1.2); Total Protein 6.3 g/dL (6.6-8.7)
[2022-09-09 15:11] LABS: Troponin(5th) Baseline 62 ng/L (0-15)
[2022-09-09 15:12] LABS: Anion Gap 17.1 (5-19); Potassium 3.1 mmol/L (3.5-5.1)
[2022-09-09 15:38] LABS: Troponin 5 2HR 55.32 ng/L (0-15); Troponin 5 2HR Delta -6.68 ABS# (0-10)
[2022-09-09 16:17] LABS: Add Urine Microscopic? YES; Bilirubin Urine Neg (Negative); Blood Urine 3+ (Negative); Glucose Urine UA Norm (Normal); Ketones Urine Negative (Negative); Leukocyte Esterase Urine Negative (Negative); Nitrate Urine Negative (Negative); Protein Urine 1+ (Negative); Specific Gravity, Urine 1.015 (1.005-1.030); Urine Appearance Clear (CLEAR); Urine Color Yellow (Yellow); Urobilinogen Urine Norm (Negative); pH Urine 7 (5-7)
--- NOTE | 2022-09-09 16:21 | ECG_ITS ---
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 Measurements Intervals [place] Rate: 86 P: 0 OK: 0 QRS: 115 QRSD: 131 T: 203 QT: 386 QTc: 464 Interpretive Statements ATRIAL FIBRILLATION RIGHT AXIS DEVIATION [QRS AXIS > 100] RIGHT BUNDLE BRANCH BLOCK [120+ ms QRS DURATION, UPRIGHT V1, 40+ ms S IN I/aVL/V4/V5/V6] MODERATE T-WAVE ABNORMALITY, CONSIDER INFERIOR ISCHEMIA [-0.1+ mV T-WAVE IN II/aVF] INTERPRETATION BASED ON A DEFAULT AGE OF 40 YEARS Compared to ECG 08/13/2022 22:24:10 T-wave abnormality now present Possible ischemia now present Myocardial infarct finding no longer present Electronically Signed On 09-09-2022 16:44:34 CDT by Dennys Fernandez M.D. [id number]
[2022-09-09 16:24] LABS: Amorphous Sediment Urine TRACE /hpf; Bacteria Urine TRACE /hpf; Hyaline Casts Urine 0-4 /lpf; Mucus Urine TRACE /hpf; RBC Urine 40-50 /hpf (0-2); Renal Epithelial Cells Urine N /hpf; WBC Urine 0-4 /hpf (0-5)
[2022-09-09 16:25] LABS: Add Urine Culture? No
--- NOTE | 2022-09-09 16:40 | P.CONIM_ITS ---
Providers/Reason For Consult Consulting Physician/Specialty*: Oswaldo Croft MD neurology and epilepsy Reason for Consult*: Near syncope assess for transient ischemic attack Primary Care Provider: Jessica Bui MD History of Present Illness History of Present Illness Giles Guillaume is a 72 year old male with a history of bilateral carotid disease, hypokalemia, hyperlipidemia, diabetic peripheral neuropathy, type 2 diabetes mellitus, hypertension, lumbar foraminal stenosis, sacroiliitis, renal issues, C. difficile colitis and lower extremity edema. According to the patient, he was in his truck and suddenly felt like he was going to pass out. The patient stated that he was severely short of breath and had trouble initi ating movement with his body. The patient stated that he thought himself to call 911 and therefore he drove 12 miles to [place] and then 3 miles to the gas station. He was observed by a bystander to look he will and was instructed to go to the ambulance doc which was approximately 1 block away from the gas station. The ambulance brought the patient to the hospital. In the emergency room the patient denied any weakness but stated that he was very frightened because he was experiencing severe shortness of breath and he felt like he was about to pass out. On neurologically evaluation in the emergency room and NIH score =0. Past medical history: Renal disease Carotid stenosis Hyperkalemia Hyperlipidemia Chronic colon Polyps Right foot drop Diabetic distal peripheral neuropathy Type 2 diabetes mellitus Obesity C. difficile colitis Lumbar foraminal stenosis Sacroiliitis Hypertension Drug allergies: Aspirin which resulted in anaphylactic type reaction Coreg which resulted in diarrhea Hydralazine which resulted in vomiting Current outpatient medications: Norvasc 10 mg p.o. acute Bumetanide 2 mg p.o. daily Vitamin D3 Eliquis 5 mg p.o. twice daily Insulin Finasteride 5 mg p.o. daily 300 mg p.o. twice daily Ozempic 1 mg subcutaneously every 7 days Pentoxifylline 400 mg p.o. daily Potassium chloride 40 mill equivalents p.o. daily Prednisone 10 mg p.o. as directed Tamsulosin 0.4 mg p.o. daily Habits: Patient chews tobacco. He denied other drug use Family history: Unknown Review of Systems General: Reports: 10 or more systems reviewed and unremarkable except in HPI and below Card: Reports: pre-syncope Resp: Reports: dyspnea Musc: Reports: back pain, extremity pain and extremity swelling Neuro: Reports: headache(s) and other (Generalized weakness) Medications/Allergies Home Medications Medication Instructions Recorded Confirmed Last Taken Type apixaban 5 mg tablet (Eliquis) 5 mg PO BID 30 days #60 tabs 07/04/21 08/20/22 06/25/21 Rx cholecalciferol (vitamin D3) 50 2,000 unit PO QAM 30 days #30 tabs 07/04/21 08/20/22 06/25/21 Rx mcg (2,000 unit) tablet (Vitamin D3) finasteride 5 mg tablet 5 mg PO DAILY 30 days #30 tabs 07/04/21 08/20/22 10/31/19 Rx multivitamin 1 tab PO DAILY 30 days #30 tabs 07/04/21 08/20/22 06/25/21 Rx tamsulosin 0.4 mg capsule 0.4 mg PO BEDTIME 30 days #30 caps 07/04/21 08/20/22 06/24/21 Rx ottobock afo to right #1 ea 08/05/21 08/20/22 Unknown Rx insulin glargine 100 unit/mL (3 61 unit SUBCUT BEDTIME 02/10/22 08/20/22 Unknown History mL) subcutaneous pen Diabetic Shoes with 3 pairs of #1 ea 06/18/22 08/20/22 Unknown Rx inserts Silver Alginate Dressing and 2 #1 ea 08/06/22 08/20/22 Unknown Rx Layer Compression System Wraps amlodipine 10 mg tablet 10 mg PO DAILY 08/14/22 08/20/22 Unknown History pentoxifylline 400 mg 400 mg PO DAILY 08/14/22 08/20/22 Unknown History tablet,extended release pregabalin 300 mg capsule (Lyrica) 300 mg PO BID 08/14/22 08/20/22 Unknown History semaglutide 0.25 mg or 0.5 mg (2 1 mg SUBCUT Q7D 08/14/22 08/20/22 Unknown History mg/3 mL) subcutaneous pen injector (Ozempic) bumetanide 1 mg tablet 2 mg PO DAILY #90 tabs 08/16/22 08/20/22 Unknown Rx colchicine 0.6 mg tablet (Colcrys) 0.6 mg PO DAILY #30 tabs 08/16/22 08/20/22 Unknown Rx potassium chloride 20 mEq 40 meq PO DAILY #60 tabs 08/16/22 08/20/22 Unknown Rx tablet,extended release prednisone 10 mg tablet 10 mg PO DIRECTED #12 tabs 08/16/22 08/20/22 Unknown Rx 2 Layer Compression Bandage #1 ea 08/22/22 Unknown Rx System- Coflex TLC LITE Calamine with Indicators 4 in x6 yard/4 in by 7 yard Allergies Allergy/AdvReac Type Severity Reaction Status Date / Time aspirin Allergy ALGY-Anaphy Verified 09/09/22 13:09 laxis carvedilol AdvReac diarrhea Verified 09/09/22 13:09 hydralazine AdvReac vomiting Verified 09/09/22 13:09 PFSH Acute PFSH: Medical History Abnormal nuclear stress test Accelerated hypertension Acute kidney injury Acute on chronic diastolic (congestive) heart failure Atrial fibrillation Chronic, history of bradycardia with beta blockers, on eliquis Atrial fibrillation Atrial fibrillation Bilateral lower leg cellulitis BMI 40.0-44.9, adult BPH NOS w/o ur obs/LUTS Bradycardia Calculus of proximal ureter CHF exacerbation Chronic anticoagulation eliquis Chronic diastolic heart failure Chronic kidney disease CKD (chronic kidney disease) Congestive heart failure Constipation Coronary artery disease Evaluated in [place], patient reports 55% narrowing unknown vessel no stent or angioplasty done CVA (cerebral vascular accident) residual right weakness Diabetes mellitus, type II Diabetic neuropathy associated with type 2 diabetes mellitus Gout attack Hyperkalemia Hyperlipidemia Hypertension Hypokalemia Ischemic toe ulcer Lumbar foraminal stenosis Nicotine dependence, chewing tobacco, with other nicotine-induced disorders Obesity BMI-42 kg/m2 Obstructive sleep apnea not on treatment by choice Osteoarthritis PAD (peripheral artery disease) Peripheral arterial disease Pes planus of both feet Physical deconditioning PVD (peripheral vascular disease) Renal calculus, right Rhabdomyolysis Squamous cell carcinoma in situ Swelling of right upper extremity Temporary transvenous cardiac pacemaker present Surgical History Hx of colonoscopy with polypectomy No pertinent past surgical history Status post cardiac pacemaker procedure Family History Mother , 87 Diabetes CAD (coronary artery disease) Hypertension Father , 60 No problems noted. Social History Smoking and tobacco status: current every day smoker (chew tobacco) pipe Pipes smoked per week: 1 Years smoked pipe: 54 and smokeless tobacco Smokeless tobacco user: chewing tobacco Alcohol intake: former Year of sobriety/quit date alcohol: 26 y Former alcohol use details: heavy use, 5 DWI's Substance/Drug Use: former Household members: none Housing: House Marital status: service: Yes Current occupational status: retired Vitals/I&O/Wt Last Vital Signs Temp 97.8 F 09/09/22 13:05 Pulse 77 09/09/22 16:18 Resp 15 09/09/22 16:18 BP 165/84 09/09/22 16:18 Pulse Ox 95 09/09/22 16:18 O2 Del Method Room Air 09/09/22 16:18 Weight last 48 hrs Weight 329 lb Physical Exam Narrative: NIH score = 0 Blood pressure 180/100 heart rate 80 O2 saturations 95% The patient is alert and oriented x3. Speech fluent. Head normocephalic. Neck supple. Cranial nerves II through XII intact. Pupils 4 mm. Pupils equal round and reactive to light and accommodation. Extraocular movements intact. Visual mazariegos full via confrontation. There were no nystagmus. Motor examination 5/5 bilaterally. Sensory examination intact to touch and pinprick. There was no ataxia. Patient was able to stand without assistance and use the urinal. There was no extinction on double sensory stimulation. The patient was able to follow commands. Throat clear. Lungs revealed no obvious wheezing. Heart regular rhythm and rate. Abdomen obese. Extremities reveal lower extremity edema. Data 09/09/22 13:28 09/09/22 13:28 A&P Assessment and plan (1) Syncope, near: (2) Carotid artery disease: Plan Assessment: 1. Near syncope 2. History of carotid disease reported on carotid duplex study performed in 2019 3. Reports of severe shortness of breath followed by near syncope 4. Obesity 5. Diabetes mellitus 6. Hyperlipidemia 7. Lumbar foraminal stenosis with chronic low back pain and reports of inc reasing low back pain associated with radicular right lower extremity pain 8. Lower extremity edema Plan: 1. Recommend repeat carotid duplex study to assess for progression in carotid disease 2. Recommend cardiac work-up 3. Recommend Ortho evaluation on an outpatient basis for low back pain and right leg radicular pain 4. Recommend starting patient on a medication for hyperlipidemia if not already prescribed 5. Consider Plavix 75 mg p.o. every morning with food for carotid stenosis if no contraindication. Note: Patient has allergy reporting anaphylaxis reaction to aspirin Consult Attestations Medical Necessity Statement: The patient was evaluated by neurology for near syncope ER bed #5 Critical Care Time: Patient was evaluated by neurology for near syncope and to assess for TIAs duration of time with patient [id number] 30 minutes Coding Level of Care Code 18250 Diagnoses Syncope, near R55 Carotid artery disease I77.9 Time Spent (min) 30
[2022-09-09] MEDS: potassium chloride ER 20 mEq Tablet 40 MEQ PO (16:53)
== END 2022-09-09 17:58 | disposition home or self-care (01) ==
PROVIDERS: Emergency Provider Family Medicine; PCP Family Medicine
DX: R53.1 Weakness (principal); E87.6 Hypokalemia; Z79.01 Long term (current) use of anticoagulants; Z79.4 Long term (current) use of insulin; F17.220 Nicotine dependence, chewing tobacco, uncomplicated; Z95.0 Presence of cardiac pacemaker; I13.0 Hypertensive heart and chronic kidney disease with heart failure and stage 1 through stage 4 chronic kidney disease, or unspecified chronic kidney disease; E11.22 Type 2 diabetes mellitus with diabetic chronic kidney disease; N18.9 Chronic kidney disease, unspecified; I50.33 Acute on chronic diastolic (congestive) heart failure; I25.10 Atherosclerotic heart disease of native coronary artery without angina pectoris; Z86.73 Personal history of transient ischemic attack (TIA), and cerebral infarction without residual deficits; E78.5 Hyperlipidemia, unspecified
CPT/HCPCS: 36415; 70450; 71045; 80053; 81001; 84484; 85025; 93005; 99285

== ENCOUNTER → 2022-09-17 13:20 | Outpatient (BNVA) | payer OTHER, SELFPAY | PROVIDERS: PCP Family Medicine; Visit Provider Podiatrist Foot & Ankle Surgery | DX: Z51.89 Encounter for other specified aftercare (principal); I73.9 Peripheral vascular disease, unspecified; E11.42 Type 2 diabetes mellitus with diabetic polyneuropathy; M21.41 Flat foot [pes planus] (acquired), right foot; M21.42 Flat foot [pes planus] (acquired), left foot; E11.621 Type 2 diabetes mellitus with foot ulcer; L97.511 Non-pressure chronic ulcer of other part of right foot limited to breakdown of skin; Z79.4 Long term (current) use of insulin | CPT/HCPCS: 99214 ==

== ENCOUNTER 2022-10-06 08:54 | Inpatient (IN) | payer OTHER, SELFPAY ==
[2022-10-06] VITALS (10 sets, daily range): BP systolic 142–171; BP diastolic 61–88; PULSE 61–71; RESP 16–18; TEMP 36.6–37; O2SAT 87–96; BMI 43.4
--- NOTE | 2022-10-06 09:09 | ECG_ITS ---
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 Measurements Intervals [place] Rate: 62 P: 0 WA: 0 QRS: 93 QRSD: 126 T: 0 QT: 443 QTc: 450 Interpretive Statements UNCERTAIN IRREGULAR RHYTHM ELECTRONIC VENTRICULAR PACEMAKER -- CONTOUR ANALYSIS BASED ON INTRINSIC RHYTHM RIGHT BUNDLE BRANCH BLOCK [120+ ms QRS DURATION, UPRIGHT V1, 40+ ms S IN I/aVL/V4/V5/V6] SEPTAL MYOCARDIAL INFARCTION , OF INDETERMINATE AGE [40+ ms Q WAVE IN V1/V2] Compared to ECG 09/09/2022 14:51:20 Atrial fibrillation no longer present Myocardial infarct finding still present Electronically Signed On 10-06-2022 16:17:59 CDT by Dennys Fernandez M.D. [email or web address]
--- NOTE | 2022-10-06 09:09 | XRR_ITS ---
PROCEDURE INFORMATION: Exam: XR Left Knee Exam date and time: 10/06/2022 9:52 AM Age: 72 years old Clinical indication: Pain; Knee; Bilateral TECHNIQUE: Imaging protocol: Radiologic exam of the left knee. Views: 3 views. COMPARISON: No relevant prior studies available. FINDINGS: Bones/joints: Normal. Soft tissues: Normal. XR/XR knee LT 3V* [id number] IMPRESSION: No acute findings.
--- NOTE | 2022-10-06 09:09 | XRR_ITS ---
PROCEDURE INFORMATION: Exam: XR Right Knee Exam date and time: 10/06/2022 9:57 AM Age: 72 years old Clinical indication: Pain; Knee; Right TECHNIQUE: Imaging protocol: Radiologic exam of the right knee. Views: 3 views. COMPARISON: CR XR foot RT min 3V* [id number] 02/04/2021 3:13 PM FINDINGS: Bones/joints: Degenerative change of the medial compartment. Small suprapatellar joint effusion. Soft tissues: Normal. XR/XR knee RT 3V* [id number] IMPRESSION: Degenerative change of the medial compartment. Small suprapatellar joint effusion
--- NOTE | 2022-10-06 09:09 | XRR_ITS ---
PROCEDURE INFORMATION: Exam: XR Chest Exam date and time: 10/06/2022 9:47 AM Age: 72 years old Clinical indication: Pain; Cough and dyspnea; Angina pectoris; Additional info: Dyspnea/cough TECHNIQUE: Imaging protocol: Radiologic exam of the chest. Views: 1 view. COMPARISON: CR XR chest 1V portable [id number] 09/09/2022 2:27 PM FINDINGS: Tubes, catheters and devices: Left-sided pacer device Lungs: Unremarkable. No consolidation. Pleural spaces: Small bilateral pleural effusions. Heart/Mediastinum: Cardiomegaly. Bones/joints: Unremarkable. XR/XR chest 1V portable [id number] IMPRESSION: Cardiomegaly with small pleural effusions.
--- NOTE | 2022-10-06 09:11 | ED_ITS ---
HPI - Weakness General: Chief complaint: Weakness Stated complaint: generalized weakness Time Seen by Provider: 10/06/22 08:56 Source: patient Mode of arrival: EMS History of Present Illness: 72-year-old male presents emergency room with complaints of generalized weakness. His most focal complaint seems to be bilateral knee pain. He denies any trauma or falls or any precipitating event initially was right knee and then became bilateral. He states he has not been able to walk the last several days. Patient is on Eliquis for atrial fibrillation denies any chest pain. He has chronic swelling of his leg for the most part is unchanged. Onset (ago): day(s) Duration: constant Relieving factors: none Exacerbating factors: none Associated symptoms: Denies chest pain, chills, confusion, melena, decreased appetite, diaphoresis, dysuria, easy bruising, fever(s), headache(s), myalgias, nausea, rash, short of breath, syncope or vomiting Review of Systems Const: Denies: fever(s), chills or diaphoresis Card: Denies: chest pain, palpitations or syncope Resp: Denies: dyspnea, productive cough or non-productive cough GI: Denies: abdominal pain, nausea, vomiting or melena : Denies: dysuria, urinary frequency or urinary urgency Musc: Reports: extremity swelling and joint pain Skin/Breast: Denies: rash or pruritus Neuro: Denies: headache(s) or confusion Bharat/Lymph: Denies: easy bruising PFS ED PFSH: Medical History Abnormal nuclear stress test Accelerated hypertension Acute kidney injury Acute on chronic diastolic (congestive) heart failure Atrial fibrillation Chronic, history of bradycardia with beta blockers, on eliquis Atrial fibrillation Atrial fibrillation Bilateral lower leg cellulitis BMI 40.0-44.9, adult BPH NOS w/o ur obs/LUTS Bradycardia Calculus of proximal ureter CHF exacerbation Chronic anticoagulation eliquis Chronic diastolic heart failure Chronic kidney disease CKD (chronic kidney disease) Congestive heart failure Constipation Coronary artery disease Evaluated in [place], patient reports 55% narrowing unknown vessel no stent or angioplasty done CVA (cerebral vascular accident) residual right weakness Diabetes mellitus, type II Diabetic neuropathy associated with type 2 diabetes mellitus Gout attack Hyperkalemia Hyperlipidemia Hypertension Hypokalemia Ischemic toe ulcer Lumbar foraminal stenosis Nicotine dependence, chewing tobacco, with other nicotine-induced disorders Obesity BMI-42 kg/m2 Obstructive sleep apnea not on treatment by choice Osteoarthritis PAD (peripheral artery disease) Peripheral arterial disease Pes planus of both feet Physical deconditioning PVD (peripheral vascular disease) Renal calculus, right Rhabdomyolysis Squamous cell carcinoma in situ Swelling of right upper extremity Temporary transvenous cardiac pacemaker present Surgical History Hx of colonoscopy with polypectomy No pertinent past surgical history Status post cardiac pacemaker procedure Family History Mother , 87 Diabetes CAD (coronary artery disease) Hypertension Father , 60 No problems noted. Social History Smoking and tobacco status: current every day smoker (chew tobacco) pipe Pipes smoked per week: 1 Years smoked pipe: 54 and smokeless tobacco Smokeless tobacco user: chewing tobacco Alcohol intake: former Year of sobriety/quit date alcohol: 26 y Former alcohol use details: heavy use, 5 DWI's Substance/Drug Use: former Household members: none Housing: House Marital status: service: Yes Current occupational status: retired Physical Exam Const: GENERAL APPEARANCE: cooperative and comfortable ORIENTATION/CONSCIOUSNESS: Yes awake, Yes oriented to person, Yes oriented to place and Yes oriented to time HENMT: COMMON NORMALS: normocephalic, atraumatic and hearing grossly normal bilaterally HEAD & SCALP: normocephalic and atraumatic Resp: COMMON NORMALS: normal respiratory effort, No retractions, No use of accessory muscles and clear to auscultation bilaterally AUSCULTATION: clear to auscultation bilaterally Cardio: COMMON NORMALS: regular rate, regular rhythm and No murmurs present (Cardio) RATE: regular rate RHYTHM: regular rhythm GI: COMMON NORMALS: Soft to palpation and No hepatosplenomegaly present AUSCULTATION: Yes normoactive bowel sounds PALPATION: Yes Soft to palpation, No Tenderness to palpation present (GI), No Guarding due to palpation present (GI) and Yes No hepatosplenomegaly present Extremity: COMMON NORMALS: normal to inspection, capillary refill normal, no clubbing, cyanosis or edema, no calf tenderness and no pedal edema Neuro: SENSORIUM/ORIENTATION: Yes oriented to person, Yes oriented to place and Yes oriented to time Skin: COMMON NORMALS: no rashes or lesions noted GENERAL SKIN EXAM: no rashes or lesions noted Course Vital Signs: Vital signs: Vital Signs Temperature 98.6 F 10/06/22 09:44 Pulse Rate 61 10/06/22 13:00 Respiratory Rate 18 10/06/22 13:00 Blood Pressure 145/61 10/06/22 13:00 Pulse Oximetry 93 10/06/22 13:00 Oxygen Delivery Me thod Room Air 10/06/22 13:00 MDM - Weakness Medical Decision Making Extensive work-up. Patient has leukocytosis. He was on prednisone but he is finished the course of that quite sometime ago. He has a history of gouty arthritis but does not particularly have symptoms suggestive of gout on physical exam there is no evidence of infection in the lower extremities his edema has decreased based on exam and his own report. Venous duplex was negative. He was complaining little bit of stomach upset as well as CT of the abdomen was negative. Chest x-ray EKG venous duplex CT abdomen pelvis all negative EKG is unremarkable. I do not find a cause for his leukocytosis at this time. We tried to ambulate him but he was unable to do so physical therapy came down to evaluate him he would not ambulate for them with a walker either. He states about 4 days ago he began to not be able to walk. His primary care doctor had talked to him about longterm recently as well because of difficulty managing his own ADLs at home. We will admit him for weakness leukocytosis discussed Dr. Pastor orders written. Medical Records I reviewed the patient's medical records. Lab Data I reviewed the patient's lab results. 10/06/22 09:33 10/06/22 09:33 Radiology Impressions Chest X-Ray 10/06/22 09:09 IMPRESSION: Cardiomegaly with small pleural effusions. Knee X-Ray 10/06/22 09:09 IMPRESSION: No acute findings. Abdomen/Pelvis CT 10/06/22 11:20 IMPRESSION: 1. Moderate diverticular burden in the mid to distal colon. No evidence for acute diverticulitis. 2. Normal appendix. 3. Nonobstructing lower pole RIGHT renal calcification. Additional lobulations of the RIGHT renal cortex cannot be evaluated further on this unenhanced exam. 4. No ascites or adenopathy. Laboratory Results WBC 17.6 10^3/uL (4.0-10.0) H 10/06/22 09:33 RBC 5.00 10^6/uL (4.1-5.3) 10/06/22 09:33 Hgb 14.0 g/dL (11.7-16.6) 10/06/22 09:33 Hct 43.2 % (42.0-52.0) 10/06/22 09:33 MCV 86.4 fl (80-94) 10/06/22 09:33 MCH 28.0 pg (28.0-34.0) 10/06/22 09: MCHC 32.4 g/dL (30.0-36.0) 10/06/22 09:33 RDW 13.7 % (12.1-15.1) 10/06/22 09:33 Plt Count 178 10^3/cmm (130-400) 10/06/22 09:33 MPV 11.3 fL (7.4-10.4) H 10/06/22 09:33 Neut % (Auto) 83.7 % 10/06/22 09:33 Lymph % (Auto) 8.1 % 10/06/22 09:33 [place] % (Auto) 7.4 % 10/06/22 09:33 Eos % (Auto) 0.0 % 10/06/22 09:33 Baso % (Auto) 0.2 % 10/06/22 09:33 Neut # (Auto) 14.74 10^3/uL (1.8-7.7) H 10/06/22 09:33 Lymph # (Auto) 1.4 10^3/uL (0.8-4.8) 10/06/22 09:33 [place] # (Auto) 1.3 10^3/uL (0.2-0.9) H 10/06/22 09:33 Eos # (Auto) 0.0 10^3/uL (0.0-0.8) 10/06/22 09:33 Baso # (Auto) 0.0 10^3/uL (0.0-0.1) 10/06/22 09:33 Nucleated RBC % (auto) 0 % 07/10/23 09:33 Nucleated RBCs # 0.0 /100WBC 10/06/22 09:33 Sodium 134 mmol/L (136-145) L 10/06/22 09:33 Potassium 3.8 mmol/L (3.5-5.1) 10/06/22 09:33 Chloride 94 mmol/L (98-107) L 10/06/22 09:33 Carbon Dioxide 29 mmol/L (22-29) 10/06/22 09:33 Anion Gap 14.8 (5-19) 10/06/22 09:33 BUN 16 mg/dL (8-23) 10/06/22 09:33 Creatinine 1.5 mg/dL (0.7-1.2) H 10/06/22 09:33 GFR Calculation Not Reportable 10/06/22 09:33 Glucose 186 mg/dL (65-115) H 10/06/22 09:33 Calculated Osmolality 284 mOsm/kg (285-295) L 10/06/22 09:33 Lactic Acid 1.1 mmol/L (0.5-2.2) 10/06/22 11:00 Calcium 8.7 mg/dL (8.5-10.5) 10/06/22 09:33 Total Bilirubin 1.4 mg/dL (0.15-1.2) H 10/06/22 09:33 AST 10 U/L (0-40) 10/06/22 09:33 ALT 7 U/L (0-41) 10/06/22 09:33 Alkaline Phosphatase 89 U/L (40-130) 10/06/22 09:33 NT-Pro-B Natriuret Pep 1402 pg/mL (0-125) H 10/06/22 09:33 Total Protein 6.4 g/dL (6.6-8.7) L 10/06/22 09:33 Albumin 3.8 g/dL (3.5-5.2) 10/06/22 09:33 Globulin 2.6 g/dL (1.3-4.6) 10/06/22 09:33 Urine Color Yellow (Yellow) 10/06/22 12:52 Urine Appearance Sl hazy (CLEAR) A 10/06/22 12:52 Urine pH 5 (5-7) 10/06/22 12:52 Ur Specific [place] 1.020 (1.005-1.030) 10/06/22 12:52 Urine Protein 3+ (Negative) H 10/06/22 12:52 Urine Glucose (UA) Norm (Normal) 10/06/22 12:52 Urine Ketones 1+ (Negative) H 10/06/22 12:52 Urine Blood 2+ (Negative) H 10/06/22 12:52 Urine Nitrate Negative (Negative) 10/06/22 12:52 Urine Bilirubin Neg (Negative) 10/06/22 12:52 Urine Urobilinogen 1 mg/dL (Negative) H 10/06/22 12:52 Ur Leukocyte Esterase Trace (Negative) H 10/06/22 12:52 Urine RBC 10-15 /hpf (0-2) H 10/06/22 12:52 Urine WBC 0-4 /hpf (0-5) H 10/06/22 12:52 Ur Squamous Epith Cells 0-4 /hpf (0-5) H 10/06/22 12:52 Amorphous Sediment 2+ /hpf 10/06/22 12:52 Urine Bacteria Trace /hpf (NONE) 10/06/22 12:52 Urine Mucus 3+ /hpf 10/06/22 12:52 Discharge Plan Discharge Condition: Stable Prescriptions: No Action (DME) ottobock afo to right See Rx Instructions .Route .MEDSUPPLY Qty: 1 0RF Rx Instructions: As directed by [employer] (DME) Diabetic Shoes with 3 pairs of inserts See Rx Instructions .ROUTE .MEDSUPPLY Qty: 1 0RF Rx Instructions: As directed by [employer] insulin glargine 100 unit/mL (3 mL) insulin pen 61 unit SUBCUT BEDTIME (DME) Silver Alginate Dressing and 2 Layer Compression System Wraps See Rx Instructions .Route .MEDSUPPLY Qty: 1 0RF Rx Instructions: Dressing supplies needed for 30 days with 3 Refills (DME) 2 Layer Compression Bandage System- Coflex TLC LITE Calamine with Indicators 4 in x6 yard/4 in by 7 yard See Rx Instructions .Route .MEDSUPPLY Qty: 1 0RF Rx Instructions: 32 boxes needed for 3 months along with reimbursement to Home Health of 6 boxes = 38 boxes total Compression 20 to 30 mmHg- Ref. # [id number] multivitamin Tablet 1 tab PO DAILY 30 Days Qty: 30 0RF tamsulosin 0.4 mg capsule 0.4 mg PO BEDTIME 30 Days Qty: 30 0RF finasteride 5 mg tablet 5 mg PO DAILY 30 Days Qty: 30 0RF cholecalciferol (vitamin D3) [Vitamin D3] 2,000 unit Tablet 2,000 unit PO QAM 30 Days Qty: 30 0RF Eliquis 5 mg tablet 5 mg PO BID 30 Days Qty: 60 0RF pentoxifylline 400 mg Tablet Extended Release 400 mg PO DAILY amlodipine 10 mg Tablet 10 mg PO DAILY pregabalin [Lyrica] 300 mg Capsule 300 mg PO BID Ozempic 0.25 mg or 0.5 mg (2 mg/3 mL) Pen Injector 1 mg SUBCUT Q7D Rx Instructions: On Thursday bumetanide 1 mg tablet 2 mg PO DAILY Qty: 90 0RF colchicine [Colcrys] 0.6 mg tablet 0.6 mg PO DAILY Qty: 30 0RF potassium chloride 20 mEq Tablet Extended Release 40 meq PO DAILY Qty: 60 0RF Referrals: Jessica Bui MD [Primary Care Provider] - Coding Level of Care Code ED Broadcast Supervisor for Yris Tee
[2022-10-06] MEDS: ketorolac 30 mg/mL INJ 15 MG IVP (09:44)
[2022-10-06 09:50] LABS: Basophils % 0.2 %; Hematocrit 43.2 % (42.0-52.0); Lymphocytes # 1.4 10^3/uL (0.8-4.8); Lymphocytes % 8.1 %; Mean Corpuscular HGB Conc 32.4 g/dL (30.0-36.0); Mean Corpuscular Volume 86.4 fl (80-94); Mean Platelet Volume 11.3 fL (7.4-10.4); Monocytes # 1.3 10^3/uL (0.2-0.9); Monocytes % 7.4 %; Neutrophils # 14.74 10^3/uL (1.8-7.7); Neutrophils % 83.7 %; Nucleated Red Blood Cells % 0 %; Platelet Count 178 10^3/cmm (130-400); Red Cell Distribution Width 13.7 % (12.1-15.1); White Blood Count 17.6 10^3/uL (4.0-10.0)
--- NOTE | 2022-10-06 10:03 | USCV_ITS ---
Giles Guillaume Age: 72 Gender: M : 1950 Exam Date: 10/06/2022 11:03 Ordering Phys: Roberto Keys DO Technologist: CT [place] [facility] [place]: leg pain PROCEDURES: Venous duplex imaging was performed in bilateral lower extremities. Bilaterally, the common femoral, superficial femoral, profunda femoral, popliteal, posterior tibial, greater saphenous veins, and the peroneal trunk were identified and interrogated in the standard fashion. FINDINGS: Normal 2-D Doppler and augmentation and compressibility throughout the lower extremity venous structures. Additional imaging through the proximal calf veins also reveals no thrombus. Limited evaluation of the greater saphenous vein is patent with no thrombus. CONCLUSIONS No DVT bilateral lower extremities. Dr. Iza Carroll DO (Electronically Signed) Final Date: 06 October 2022 11:40 S
[2022-10-06 10:12] LABS: Alanine Aminotransferase 7 U/L (0-41); Albumin Level 3.8 g/dL (3.5-5.2); Alkaline Phosphatase 89 U/L (40-130); Anion Gap 14.8 (5-19); Aspartate Amino Transferase 10 U/L (0-40); Blood Urea Nitrogen 16 mg/dL (8-23); Calcium 8.7 mg/dL (8.5-10.5); Carbon Dioxide 29 mmol/L (22-29); Chloride 94 mmol/L (98-107); Globulin 2.6 g/dL (1.3-4.6); Glucose 186 mg/dL (65-115); Osmolality Calculated 284 mOsm/kg (285-295); Potassium 3.8 mmol/L (3.5-5.1); Sodium 134 mmol/L (136-145); Total Bilirubin 1.4 mg/dL (0.15-1.2); Total Protein 6.4 g/dL (6.6-8.7)
[2022-10-06 11:06] LABS: NT Pro B Type Natriuretic Pept 1402 pg/mL (0-125)
--- NOTE | 2022-10-06 11:20 | CT_ITS ---
WS: [id number] CT ABDOMEN AND PELVIS NONCONTRAST HISTORY: Abdominal pain TECHNIQUE: Imaging performed through the abdomen and pelvis. Coronal and sagittal reformats are submi tted. All CT scans at [facility] use at least one of these dose optimization techniques: auto mated exposure control; mA and/or kV adjustment per patient size (includes targeted exams where dose is matched to clinical indication); or iterative reconstruction. DLP: 1863.73 mGy.cm COMPARISON: 07/20/2021 Lower thorax: Lung bases are clear. Visualized heart is normal. No hiatal hernia. Liver: Normal size liver. No mass or bile duct dilatation. Gallbladder: Motion artifact. Normal size. Pancreas: Mild atrophy. No adjacent inflammation. Spleen: Normal. Adrenal glands: Normal. No mass. Right kidney: Mild perinephric stranding. Nonobstructing calcification lower pole measures 8 mm. Lobu lated cortex of the RIGHT kidney. Renal mass is are suspected but cannot further classify on this une nhanced study. Left kidney: Mild perinephric stranding. No obstruction. Aorta: Moderate to severe atherosclerosis abdominal aorta. No aneurysm. Atherosclerosis continues int o the common iliac arteries. No free fluid, intraperitoneal air or significant lymphadenopathy. GI tract: Nonobstructed pattern. No wall thickening. Moderate diverticular burden throughout the mid to distal colon. No evidence for acute diverticulitis. Normal appendix. Abdominal wall: Small umbilical hernia contains fat only. Pelvis: No free fluid or adenopathy. Negative urinary bladder. Inguinal canals are patent containing fat only. Increase in the lumbar lordosis. CT/CT abdomen pelvis wo con [id number] IMPRESSION: 1. Moderate diverticular burden in the mid to distal colon. No evidence for ac lamine diverticulitis. 2. Normal appendix. 3. Nonobstructing lower pole RIGHT renal calcification. Additional lobulations of the RIGHT renal cortex cannot be evaluated further on this unenhanced exam. 4. No ascites or adenopathy.
[2022-10-06 11:26] LABS: Lactic Sepsis W/Reflex 1.1 mmol/L (0.5-2.2)
[2022-10-06 13:16] LABS: Add Urine Microscopic? YES; Bilirubin Urine Neg (Negative); Blood Urine 2+ (Negative); Glucose Urine UA Norm (Normal); Ketones Urine 1+ (Negative); Leukocyte Esterase Urine Trace (Negative); Nitrate Urine Negative (Negative); Protein Urine 3+ (Negative); Squamous Epithelial Cell Urine 0-4 /hpf (0-5); Urine Appearance SL Hazy (CLEAR); Urine Color Yellow (Yellow); Urobilinogen Urine 1 mg/dL (Negative); WBC Urine 0-4 /hpf (0-5); pH Urine 5 (5-7)
[2022-10-06 13:17] LABS: Add Urine Culture? No; Amorphous Sediment Urine 2+ /hpf; Bacteria Urine TRACE /hpf; Mucus Urine 3+ /hpf
--- NOTE | 2022-10-06 15:02 | ECG_ITS ---
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 Measurements Intervals [place] Rate: 63 P: 0 W[place]: 0 QRS: 84 QRSD: 128 T: -10 QT: 451 QTc: 465 Interpretive Statements UNCERTAIN IRREGULAR RHYTHM ELECTRONIC VENTRICULAR PACEMAKER -- CONTOUR ANALYSIS BASED ON INTRINSIC RHYTHM RIGHT BUNDLE BRANCH BLOCK [120+ ms QRS DURATION, UPRIGHT V1, 40+ ms S IN I/aVL/V4/V5/V6] SEPTAL MYOCARDIAL INFARCTION , PROBABLY OLD [40+ ms Q WAVE IN V1/V2] Compared to ECG 10/06/2022 09:19:48 No significant changes Electronically Signed On 10-06-2022 16:18:38 CDT by Dennys Fernandez M.D. [id number]
--- NOTE | 2022-10-06 15:28 | PM.HP ---
Providers/Chief Complaint Primary Care Provider: Jessica Bui MD Chief Complaint: generalized weakness History of Present Illness Giles Guillaume is a 72 year old male with a past medical history of insulin-dependent type 2 diabetes mellitus, CAD, systolic heart failure, peripheral arterial disease, fluid overload, gout, diabetic neuropathy,, lumbar foraminal stenosis, chronic back pain, sacroiliitis, chronic kidney disease, who presents to [facility] due to bilateral lower extremity weakness. Patient tells me that normally he has chronic low back pain, difficulty ambulating, he ambulates with a walker, primarily by placing all his weight on the wheeled walker. He tells me that he has been doing okay with this, no recent falls, recent injuries, but starting on Thursday he started to notice that he was weak in both lower extremities, had difficulty coordinating, decreased strength in bilateral lower extremities, he initially thought that it was his lymphedema wraps, he thought they were wrapped too tightly, he does also describe pain in both his knees, and his lower back, but is not worse than his usual amount he tells me, his big issue he tells me that he cannot bear weight, he cannot ambulate and at baseline he has difficulty ambulating a walker but now is suddenly worse, no recent falls of note, no recent injuries, he does report sinus symptoms for the last week, but denies any significant illness, no recent immunizations, no diarrhea he does report chronic urinary incontinence, which has been worse recently does report chronic bowel incontinence which is worse recently, does not describe any saddle or perianal anal anesthesia, does have chronic diabetic neuropathy, and lack of sensation in both feet, and shins, which is not significantly worse, no headache, no blurry vision, no neck stiffness, no nausea, no vomiting, no fevers, no chills, no facial droop no slurring of his words, no other paresthesias, no focal weakness. He does describe increased lower extremity edema, he does take Bumex and has been feeling more short of breath recently, he does describe that he had a near syncopal episode roughly a month ago for which she came to the emergency room, and was discharged home, they thought heat it was a syncopal episode versus a TIA, he does have a history of a right foot drop, lumbar foraminal stenosis, has not had any back surgery, denies any ascending weakness Review of Systems Const: Reports: fatigue; Denies: fever(s), chills, body aches or malaise Eyes: Denies: change in vision ENMT: Denies: throat pain Card: Reports: edema, swelling of feet/ankles and dyspnea on exertion; Denies: chest pain, palpitations or lightheadedness Resp: Reports: dyspnea; Denies: non-productive cough GI: Denies: abdominal pain or nausea : Reports: urinary incontinence; Denies: flank pain or difficulty urinating Musc: Reports: back pain, extremity swelling, joint pain and muscle weakness; Denies: extremity pain Skin/Breast: Reports: rash Neuro: Reports: numbness in extremities, weakness in extremities, sensory changes, lack of coordination and difficulty walking; Denies: headache(s), frequent falls, dizziness, Slurred speech present, difficulty communicating thoughts or involuntary movements Psych: Denies: anxiety or depression Endo: Denies: polyuria or polydipsia Bharat/Lymph: Denies: easy bruising Medications/Allergies Home Medications Medication Instructions Recorded Confirmed Last Taken Type apixaban 5 mg tablet (Eliquis) 5 mg PO BID 30 days #60 tabs 07/04/21 10/06/22 06/25/21 Rx cholecalciferol (vitamin D3) 50 2,000 unit PO QAM 30 days #30 tabs 07/04/21 10/06/22 06/25/21 Rx mcg (2,000 unit) tablet (Vitamin D3) finasteride 5 mg tablet 5 mg PO DAILY 30 days #30 tabs 07/04/21 10/06/22 10/31/19 Rx multivitamin 1 tab PO DAILY 30 days #30 tabs 07/04/21 10/06/22 06/25/21 Rx tamsulosin 0.4 mg capsule 0.4 mg PO BEDTIME 30 days #30 caps 07/04/21 10/06/22 06/24/21 Rx [place]ock afo to right #1 ea 08/05/21 10/06/22 Unknown Rx insulin glargine 100 unit/mL (3 61 unit SUBCUT BEDTIME 02/10/22 10/06/22 Unknown History mL) subcutaneous pen Diabetic Shoes with 3 pairs of #1 ea 06/18/22 10/06/22 Unknown Rx inserts Silver Alginate Dressing and 2 #1 ea 08/06/22 10/06/22 Unknown Rx Layer Compression System Wraps amlodipine 10 mg tablet 10 mg PO DAILY 08/14/22 10/06/22 Unknown History pentoxifylline 400 mg 400 mg PO DAILY 08/14/22 10/06/22 Unknown History tablet,extended release pregabalin 300 mg capsule (Lyrica) 300 mg PO BID 08/14/22 10/06/22 Unknown History semaglutide 0.25 mg or 0.5 mg (2 1 mg SUBCUT Q7D 08/14/22 10/06/22 Unknown History mg/3 mL) subcutaneous pen injector (YODIL) bumetanide 1 mg tablet 2 mg PO DAILY #90 tabs 08/16/22 10/06/22 Unknown Rx colchicine 0.6 mg tablet (Colcrys) 0.6 mg PO DAILY #30 tabs 08/16/22 10/06/22 Unknown Rx potassium chloride 20 mEq 40 meq PO DAILY #60 tabs 08/16/22 10/06/22 Unknown Rx tablet,extended release 2 Layer Compression Bandage #1 ea 10/03/22 10/06/22 Unknown Rx System- Coflex TLC LITE Calamine with Indicators 4 in x6 yard/4 in by 7 yard Allergies Allergy/AdvReac Type Severity Reaction Status Date / Time aspirin Allergy ALGY-Anaphy Verified 10/06/22 13:17 laxis carvedilol AdvReac diarrhea Verified 10/06/22 13:17 hydralazine AdvReac vomiting Verified 10/06/22 13:17 PFSH Acute PFSH: Medical History (Updated 10/06/22 @ 15:49 by Jone Pastor MD) Abnormal nuclear stress test Accelerated hypertension Acute kidney injury Acute on chronic diastolic (congestive) heart failure Atrial fibrillation Chronic, history of bradycardia with beta blockers, on eliquis Atrial fibrillation Atrial fibrillation Bilateral lower leg cellulitis BMI 40.0-44.9, adult BPH NOS w/o ur obs/LUTS Bradycardia Calculus of proximal ureter CHF exacerbation Chronic anticoagulation eliquis Chronic diastolic heart failure Chronic kidney disease CKD (chronic kidney disease) Congestive heart failure Constipation Coronary artery disease Evaluated in [place], patient reports 55% narrowing unknown vessel no stent or angioplasty done CVA (cerebral vascular accident) residual right weakness Diabetes mellitus, type II Diabetic neuropathy associated with type 2 diabetes mellitus Gout attack Hyperkalemia Hyperlipidemia Hypertension Hypokalemia Ischemic toe ulcer Lumbar foraminal stenosis Nicotine dependence, chewing tobacco, with other nicotine-induced disorders Obesity BMI-42 kg/m2 Obstructive sleep apnea not on treatment by choice Osteoarthritis PAD (peripheral artery disease) Peripheral arterial disease Pes planus of both feet Physical deconditioning PVD (peripheral vascular disease) Renal calculus, right Rhabdomyolysis Squamous cell carcinoma in situ Swelling of right upper extremity Temporary transvenous cardiac pacemaker present Surgical History Hx of colonoscopy with polypectomy No pertinent past surgical history Status post cardiac pacemaker procedure Family History Mother , 87 Diabetes CAD (coronary artery disease) Hypertension Father , 60 No problems noted. Social History Smoking and tobacco status: current every day smoker (chew tobacco) pipe Pipes smoked per week: 1 Years smoked pipe: 54 and smokeless tobacco Smokeless tobacco user: chewing tobacco Alcohol intake: former Year of sobriety/quit date alcohol: 26 y Former alcohol use details: heavy use, 5 DWI's Substance/Drug Use: former Household members: none Housing: House Marital status: service: Yes Current occupational status: retired Vitals/I&O/Wt Last Vital Signs Temp 98.6 F 10/06/22 09:44 Pulse 61 10/06/22 13:00 Resp 18 10/06/22 13:00 BP 145/61 10/06/22 13:00 Pulse Ox 93 10/06/22 13:00 O2 Del Method Room Air 10/06/22 13:00 Weight last 48 hrs Weight 149.232 kg Physical Exam Const: COMMON NORMALS: no acute distress and patient oriented x3 GENERAL APPEARANCE: cooperative, well kempt and well developed HENMT: COMMON NORMALS: normocephalic and Normal external nose present HEAD & SCALP: normocephalic FACE & SINUS: normal facial exam MOUTH: Normal oral and palatal mucosa present Eye: COMMON NORMALS: Equal, round and reactive pupils present, EOMs intact bilaterally, conjunctivae normal and no scleral icterus CONJUNCTIVA: Yes conjunctivae normal PUPIL: Yes Equal, round and reactive pupils present Neck/C-Spine: COMMON NORMALS: full ROM, no lymphadenopathy, no meningeal signs, no JVD and Thyroid normal THYROID: Thyroid normal Lymph: LYMPHATIC: no lymphadenopathy noted Chest: COMMONS NORMALS: normal inspection of the chest Resp: COMMON NORMALS: normal respiratory effort, No retractions, No use of accessory muscles and clear to auscultation bilaterally AUSCULTATION: clear to auscultation bilaterally Cardio: COMMON NORMALS: regular rate, regular rhythm, S1 normal heart sound present, S2 normal heart sound present, No murmurs present (Cardio) and Peripheral pulses 2+ throughout RATE: regular rate RHYTHM: regular rhythm HEART SOUNDS: S1 normal heart sound present and S2 normal heart sound present PERIPHERAL PULSES: Peripheral pulses 2+ throughout GI: COMMON NORMALS: Normal to inspection, nondistended, normoactive bowel sounds present, Soft to palpation and non-tender PALPATION: Yes Soft to palpation : BLADDER/KIDNEY EXAM: Yes no CVA tenderness Back/Pelvis: COMMON NORMALS: no CVA tenderness Extremity: COMMON NORMALS: normal to inspection, full ROM and no calf tenderness Neuro: COMMON NORMALS: patient oriented x3 and CN's II-XII intact bilaterally OTHER: - Lower extremities, -Bilateral feet, has diabetic neuropathy, but has decreased sensation to pinprick, bilateral lower extremities, up to the level of bilateral shins, difficulty distinguishing dull versus pinprick -Bilateral extremity strength 3 out of 5 bilaterally -Reflexes -Ankle jerk reflex diminished bilaterally -Knee jerk reflex diminished bilaterally Psych: COMMON NORMALS: mental status grossly normal, Normal thought process present, cooperative and speech normal APPEARANCE: Yes well kempt SPEECH: Yes normal speech THOUGHT PROCESS: Normal thought process present Skin: COMMON NORMALS: turgor normal and no jaundice GENERAL SKIN EXAM: turgor normal Data 10/06/22 09:33 10/06/22 09:33 Micro: Microbiology 10/06/22 11:00 Blood Culture - Preliminary Blood SPECIMEN COLLECTED 10/06/22 10:18 Blood Culture - Preliminary Blood SPECIMEN COLLECTED A&P Assessment and plan (1) Lower extremity weakness: (2) Hyperlipidemia: Qualifiers: Hyperlipidemia type: unspecified Qualified Code(s): E78.5 - Hyperlipidemia, unspecified (3) Right foot drop: (4) Diabetic peripheral neuropathy associated with type 2 diabetes mellitus: (5) Sacroiliitis: (6) Lumbar foraminal stenosis: (7) Benign essential hypertension with target blood pressure below 140/90: (8) CHF exacerbation: Qualifiers: Heart failure type: combined systolic and diastolic Qualified Code(s): I50.43 - Acute on chronic combined systolic (congestive) and diastolic (congestive) heart failure (9) Atrial fibrillation: Qualifiers: Atrial fibrillation type: longstanding persistent Qualified Code(s): I48.11 - Longstanding persistent atrial fibrillation (10) Fluid overload: (11) BMI 40.0-44.9, adult: (12) Diabetes mellitus, type II: Qualifiers: Diabetes mellitus senior care insulin use: with senior care use Diabetes mellitus complication status: with neurologic complications Diabetes mellitus complication detail: with polyneuropathy Qualified Code(s): E11.42 - Type 2 diabetes mellitus with diabetic polyneuropathy; 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 (13) Bilateral edema of lower extremity: Plan Acute on chronic lower extremity weakness -Does have a history of lumbar spinal stenosis -Does have acute on chronic urinary incontinence, bowel incontinence -No saddle or perineal anesthesia -Denies any ascending weakness -Does report some sinus symptoms about a week ago -Physical therapy work with him and down emergency room, he did have bilateral extremity weakness, inability to ambulate, Plan -Symptoms do seem acute -The question is is a could this be worsening of his lumbar spinal stenosis, I have ordered an MRI of his spine -Given the concern for cauda equina syndrome, I am going to start him on Decadron, and order an MRI of the spine -The other thought is could he be seen AIDP or Guillain-Angulo?, he has bilateral ankle jerk reflex and knee reflexes are significantly diminished but it was difficult to assess -I ordered an ESR, CRP, autoimmune bodies, will consider a lumbar puncture based on clinical progress -This also could be related to his diabetic related, diabetic neuropathy, as he had does have diabetic neuropathy, does have reported right foot drop -Ordered B12, folic acid, TSH, -PT OT ordered -Morphine for pain control -Decadron for decreasing inflammation -Goals of care discussion, patient would like to be a full code -Eliquis for DVT prophylaxis Systolic and diastolic CHF exacerbation, fluid overload -Has bilateral extremity 2+ pitting edema -We will start him on Bumex 1 mg every 12 hours -Monitor creatinine, monitor potassium, monitor urine output Type 2 diabetes mellitus, moderate dose sliding scale He does have a UTI -I am not exactly sure if the UTI is playing a role, as his weakness is part of his lower extremities, not generalized -Nonetheless start him on Rocephin -Follow urine cultures, blood cultures Atrial fibrillation, continue Eliquis, continue home medications History of carotid artery disease History of type 2 diabetes mellitus Hypertension Obesity History of CVA reported residual right-sided weakness History of gout History of SACHIN Attestations Medical Necessity Statement*: Patient requires hot position, inpatient, greater than 2 midnights, for acute bile extremity weakness, fluid overload, systolic diastolic CHF exacerbation Diagnoses Lower extremity weakness R29.898 Hyperlipidemia E78.5 Hyperlipidemia type: unspecified Right foot drop M21.371 Diabetic peripheral neuropathy associated with type 2 diabetes mellitus E11.42 Sacroiliitis M46.1 Lumbar foraminal stenosis M48.061 Benign essential hypertension with target blood pressure below 140/90 I10 CHF exacerbation I50.43 Heart failure type: combined systolic and diastolic Atrial fibrillation I48.11 Atrial fibrillation type: longstanding persistent Fluid overload E87.70 BMI 40.0-44.9, adult Z68.41 Diabetes mellitus, type II E11.42; Z79.4 Diabetes mellitus senior care insulin use: with social services coordinator use Diabetes mellitus complication status: with neurologic complications Diabetes mellitus complication detail: with polyneuropathy Bilateral edema of lower extremity R60.0
[2022-10-06 15:57] LABS: Amphetamines Screen Urine Negative (Negative); Barbiturates Screen Urine Negative (Negative); Benzodiazepines Screen Urine Negative (Negative); Cocaine Screen Urine Negative (Negative); Opiate Screen Urine Negative (Negative); PCP Screen Urine Negative (Negative); THC Screen Urine Negative (Negative)
[2022-10-06] MEDS: cefTRIAXone 1,000 MG in sodium chloride 0.9% (plus) 50 ML 100 MG IV (16:05)
[2022-10-06 16:14] LABS: Erythrocyte Sedimentation Rate 27 mm/hr (0-10)
--- NOTE | 2022-10-06 16:26 | PC.NURSE ---
Patient been resting on gurney, AAOx4, elevated BP with remaining VSS. +4 pitting edema to BLE. Called report to Michelle CASTANEDA on M/S.
[2022-10-06 16:43] LABS: NT Pro B Type Natriuretic Pept 1332 pg/mL (0-125); Procalcitonin 0.28 ng/mL (0-0.5); Thyroid Stimulating Hormone 2.49 uIU/mL (0.27-4.20); Vitamin B12 257 pg/mL (232-1245)
[2022-10-06 16:44] LABS: Troponin(5th) Baseline 56 ng/L (0-15)
[2022-10-06 16:55] LABS: C Reactive Protein 172.5 mg/L (0.0-4.9)
[2022-10-06 16:56] LABS: Alcohol Level < 10 mg/dL (0-10)
[2022-10-06 17:35] LABS: Glucose Point of Care 174 mg/dL (70-110)
[2022-10-06 17:44] LABS: HIV 1 & 2 Antibody Non-Reactive (Non-Reactiv); HIV 1 & 2 Antigen Non-Reactive (Non-Reactiv)
[2022-10-06 17:47] LABS: Folate Level > 20.0 ng/mL (4.5-32.2)
[2022-10-06 17:50] LABS: Adenovirus Not Detected (NOT DETECT); Chlamydia Pneumoniae Not Detected (NOT DETECT); Coronavirus 229E,HKU1,NL63,OC4 Not Detected (NOT DETECT); Human Metapneumovirus Not Detected (NOT DETECT); Human Rhinovirus/Enterovirus Not Detected (NOT DETECT); Influenza A Not Detected (NOT DETECT); Influenza A H1 Not Detected (NOT DETECT); Influenza A H1-2009 Not Detected (NOT DETECT); Influenza A H3 Not Detected (NOT DETECT); Influenza B Not Detected (NOT DETECT); Mycoplasma Pneumoniae Not Detected (NOT DETECT); Parainfluenza Virus Type 1 Not Detected (NOT DETECT); Parainfluenza Virus Type 2 Not Detected (NOT DETECT); Parainfluenza Virus Type 3 Not Detected (NOT DETECT); Parainfluenza Virus Type 4 Not Detected (NOT DETECT); Respiratory Syncytial Virus A Not Detected (NOT DETECT); Respiratory Syncytial Virus B Not Detected (NOT DETECT); SARS-COV-2 Not Detected (NOT DETECT)
[2022-10-06] MEDS: pantoprazole 40 mg SDV IVP (17:59)
[2022-10-06] MEDS: dexamethasone 10 mg/mL INJ IVP (18:00)
[2022-10-06] MEDS: pregabalin 150 mg Capsule 300 MG PO (18:00)
[2022-10-06] MEDS: apixaban 5 mg Tablet PO (18:00)
[2022-10-06] MEDS: morphine 4 mg/mL SDV 1 mL 2 MG IVP (18:00)
[2022-10-06] MEDS: bumetanide 0.25 mg/mL SDV 4 mL 1 MG IVP (18:01)
[2022-10-06] MEDS: insulin lispro 100 unit/1 mL SUBCUT (18:01)
--- NOTE | 2022-10-06 18:09 | CTR_ITS ---
PROCEDURE INFORMATION: Exam: CT Lumbar Spine Without Contrast Exam date and time: 10/06/2022 7:50 PM Age: 72 years old Clinical indication: Weakness; Additional info: Weakness, possible cauda equina TECHNIQUE: Imaging protocol: Computed tomography of the lumbar spine without contrast. Radiation optimization: All CT scans at this facility use at least one of these dose optimization techniques: automated exposure control; mA and/or kV adjustment per patient size (includes targeted exams where dose is matched to clinical indication); or iterative reconstruction. REPORTING DATA: Count of CT and Cardiac NM exams in prior 12 months: This patient has received [address] and 0 known cardiac nuclear medicine studies in the 12 months prior to the current study. COMPARISON: MR lumbar spine wo con* [id number] 04/19/2021 1:07 PM RADIATION DOSE METRICS: Total DLP (mGy-cm): 1773.83 FINDINGS: Bones/joints: Negative for fracture or dislocation. L1-L2: No significant disc bulge or herniation. No severe spinal canal stenosis. No significant neural foraminal narrowing. L2-L3: L2-L3 broad-based disc bulge with moderate spinal canal and moderate to severe bilateral foraminal narrowing, similar to prior exam. L3-L4: L3-L4 broad-based disc bulge with moderate spinal canal and severe bilateral foraminal narrowing, similar to prior exam. L4-L5: L4-L5 broad-based disc bulge with moderate to severe spinal canal narrowing and severe bilateral foraminal narrowing, similar to prior exam. L5-S1: No significant disc bulge or herniation. No severe spinal canal stenosis. No significant neural foraminal narrowing. Soft tissues: Unremarkable. CT/CT lumbar spine wo con* [id number] IMPRESSION: 1. L2-L3 broad-based disc bulge with moderate spinal canal and moderate to severe bilateral foraminal narrowing, similar to prior exam. 2. L3-L4 broad-based disc bulge with moderate spinal canal and severe bilateral foraminal narrowing, similar to prior exam. 3. L4-L5 broad-based disc bulge with moderate to severe spinal canal narrowing and severe bilateral foraminal narrowing, similar to prior exam.
[2022-10-06 19:50] LABS: Estmated Average Glucose 180; Hemoglobin A1C 7.9 % (4.0-6.0)
[2022-10-06 20:11] LABS: Troponin 5 2HR 52.01 ng/L (0-15)
[2022-10-06 20:13] LABS: Troponin 5 2HR Delta -3.99 ABS# (0-10)
[2022-10-06] MEDS: tamsulosin 0.4 mg Capsule PO (20:50)
[2022-10-06 21:38] LABS: Glucose Point of Care 268 mg/dL (70-110)
[2022-10-06 22:40] LABS: Troponin 5 6HR 53.38 ng/L (0-15)
[2022-10-06 22:43] LABS: Troponin 5 6HR Delta -2.62 ng/L (0-12)
[2022-10-07] VITALS: BP 158/73; PULSE 62; RESP 18; TEMP 36.8; O2SAT 88
[2022-10-07] MEDS: cholecalciferol (vitamin D3) 1,000 unit Tablet 2000 UNIT PO (05:52)
[2022-10-07] MEDS: bumetanide 0.25 mg/mL SDV 4 mL 1 MG IVP ×2 (05:53→17:10)
[2022-10-07 06:37] LABS: Glucose Point of Care 289 mg/dL (70-110)
[2022-10-07 07:01] LABS: Basophils % 0.1 %; Hematocrit 42.6 % (42.0-52.0); Hemoglobin 14.1 g/dL (11.7-16.6); Lymphocytes % 8.7 %; Mean Corpuscular HGB Conc 33.1 g/dL (30.0-36.0); Mean Corpuscular Volume 84.7 fl (80-94); Mean Platelet Volume 11.2 fL (7.4-10.4); Monocytes # 0.2 10^3/uL (0.2-0.9); Neutrophils # 9.92 10^3/uL (1.8-7.7); Neutrophils % 88.5 %; Nucleated Red Blood Cells % 0 %; Platelet Count 188 10^3/cmm (130-400); Red Blood Count 5.03 10^6/uL (4.1-5.3); Red Cell Distribution Width 13.4 % (12.1-15.1); White Blood Count 11.2 10^3/uL (4.0-10.0)
[2022-10-07 07:16] LABS: Alanine Aminotransferase 7 U/L (0-41); Albumin Level 3.5 g/dL (3.5-5.2); Alkaline Phosphatase 90 U/L (40-130); Anion Gap 13.1 (5-19); Aspartate Amino Transferase 10 U/L (0-40); Blood Urea Nitrogen 25 mg/dL (8-23); Calcium 8.9 mg/dL (8.5-10.5); Carbon Dioxide 29 mmol/L (22-29); Chloride 100 mmol/L (98-107); Globulin 3.2 g/dL (1.3-4.6); Glucose 296 mg/dL (65-115); Magnesium 2.3 mg/dL (1.7-2.3); Osmolality Calculated 301 mOsm/kg (285-295); Phosphorus 4.1 mg/dL (2.5-4.5); Potassium 4.1 mmol/L (3.5-5.1); Sodium 138 mmol/L (136-145); Total Bilirubin 0.7 mg/dL (0.15-1.2); Total Protein 6.7 g/dL (6.6-8.7)
[2022-10-07 07:29] VITALS: BP 166/93; PULSE 78; RESP 18; O2SAT 95
[2022-10-07] MEDS: insulin lispro 100 unit/1 mL SUBCUT ×3 (08:21→17:11)
[2022-10-07] MEDS: finasteride 5 mg Tablet PO (08:22)
[2022-10-07] MEDS: pregabalin 150 mg Capsule 300 MG PO ×2 (08:22→17:11)
[2022-10-07] MEDS: potassium chloride ER 20 mEq Tablet 40 MEQ PO (08:22)
[2022-10-07] MEDS: multivitamin therapeutic Tablet 1 TAB PO (08:22)
[2022-10-07] MEDS: amlodipine 10 mg Tablet PO (08:22)
[2022-10-07] MEDS: colchicine 0.6 mg Tablet PO (08:46)
--- NOTE | 2022-10-07 09:27 | PC.CHAP ---
Pastoral Care Encounter/Spiritual Assessment Type of Contact [] Declined academic interventionist visit [] Patient/Family/Request visit [] Outpatient visit [] Follow-up visit [] Physician referral [] Code/Alert [x] Routine visit [] Staff referral [] Actively dying [] Patient sleeping [] Family support [] [] Out of room [] Palliative care [] [] Receiving care in room [] Pre-surgical visit [] Trauma [] Long length of stay [] ICU visit [] Other: Relational/Emotional Strength [x] Patient feels connected with others/family/visitors/staff [] Distress [] Loneliness/isolation [] Abandonment Spirituality of Patient [x] Person of [place] [] Attends [employer] of their [place] [x] Believes in Prayer [] Reads Bible or Church materials [] There are Spiritual issues to be addressed [employer] Interventions [x] Prayer [x] Active listening [] Non-anxious presence [x] Spiritual/emotional support [] Crisis/trauma care [] Spiritual counseling [] Bereavement support [] Provided bereavement packet [] Provided Bible/devotional materials [] Provided toy/stuffed animal, coloring book to patient or family member [] Provided Communion [] Anointing/[place] [] Salvation [] Completed spiritual assessment [] Other: Impact on Illness or Injury [] Angry [] Fearful [] Anxious [] Often cries [] Exhaustion [] Unable to work [] Unable to attend bahai [] Unable to walk/stand [] Unable to read [] Unable to drive [] Unable to eat/drink [] Unable to sleep [] Unable to be with family [] Patient intubated [] Other: Summary Time spent with patient 5 min
[2022-10-07 12:04] LABS: Glucose Point of Care 310 mg/dL (70-110)
--- NOTE | 2022-10-07 12:04 | PM.CONSULT ---
Providers/Reason For Consult Consulting Physician/Specialty*: Orthopedic spine Reason for Consult*: Back pain and leg weakness Attending Physician: Jone Pastor MD Primary Care Provider: Jessica Bui MD History of Present Illness History of Present Illness iGles Guillaume is a 72 year old male describes a long history of back pain. He presented to the emergency room due to increased back pain and leg weakness. He states that he was tangled up in bed under the covers when he was fighting to get free felt a pull in his back and has had leg pain and weakness since that event. He does admit that his symptoms of improved significantly from yesterday when he arrived at the hospital. He describes 50 percent back pain 50% leg pain with weakness. He ambulates with a walker and has difficult time standing for any length of time. He does have known peripheral neuropathy with decreased sensations down both lower extremities. He describes peripheral vascular disease and has had ulcers over the years in both legs with intermittent swelling episodes. He does have a pacemaker and is diabetic. He is currently attempting to use the urinal states that he does have control of his bowel bladder. Activities such as bending twisting standing walking have made his symptoms much worse. Rest gives him some temporary relief. Denies any surgical intervention on his back. Does admit to tobacco use. Review of Systems Const: Reports: fatigue; Denies: fever(s), chills, body aches or malaise Eyes: Denies: change in vision ENMT: Denies: throat pain Card: Reports: edema, swelling of feet/ankles and dyspnea on exertion; Denies: chest pain, palpitations or lightheadedness Resp: Reports: dyspnea; Denies: non-productive cough GI: Denies: abdominal pain or nausea : Reports: urinary incontinence; Denies: flank pain or difficulty urinating Musc: Reports: back pain, extremity swelling, joint pain and muscle weakness; Denies: extremity pain Skin/Breast: Reports: rash Neuro: Reports: numbness in extremities, weakness in extremities, sensory changes, lack of coordination and difficulty walking; Denies: headache(s), frequent falls, dizziness, Slurred speech present, difficulty communicating thoughts or involuntary movements Psych: Denies: anxiety or depression Endo: Denies: polyuria or polydipsia Bharat/Lymph: Denies: easy bruising Medications/Allergies Home Medications Medication Instructions Recorded Confirmed Last Taken Type apixaban 5 mg tablet (Eliquis) 5 mg PO BID 30 days #60 tabs 07/04/21 10/06/22 06/25/21 Rx cholecalciferol (vitamin D3) 50 2,000 unit PO QAM 30 days #30 tabs 07/04/21 10/06/22 06/25/21 Rx mcg (2,000 unit) tablet (Vitamin D3) finasteride 5 mg tablet 5 mg PO DAILY 30 days #30 tabs 07/04/21 10/06/22 10/31/19 Rx multivitamin 1 tab PO DAILY 30 days #30 tabs 07/04/21 10/06/22 06/25/21 Rx tamsulosin 0.4 mg capsule 0.4 mg PO BEDTIME 30 days #30 caps 07/04/21 10/06/22 06/24/21 Rx ottobock afo to right #1 ea 08/05/21 10/06/22 Unknown Rx insulin glargine 100 unit/mL (3 61 unit SUBCUT BEDTIME 02/10/22 10/06/22 Unknown History mL) subcutaneous pen Diabetic Shoes with 3 pairs of #1 ea 06/18/22 10/06/22 Unknown Rx inserts Silver Alginate Dressing and 2 #1 ea 08/06/22 10/06/22 Unknown Rx Layer Compression System Wraps amlodipine 10 mg tablet 10 mg PO DAILY 08/14/22 10/06/22 Unknown History pentoxifylline 400 mg 400 mg PO DAILY 08/14/22 10/06/22 Unknown History tablet,extended release pregabalin 300 mg capsule (Lyrica) 300 mg PO BID 08/14/22 10/06/22 Unknown History semaglutide 0.25 mg or 0.5 mg (2 1 mg SUBCUT Q7D 08/14/22 10/06/22 Unknown History mg/3 mL) subcutaneous pen injector (Ozempic) bumetanide 1 mg tablet 2 mg PO DAILY #90 tabs 08/16/22 10/06/22 Unknown Rx colchicine 0.6 mg tablet (Colcrys) 0.6 mg PO DAILY #30 tabs 08/16/22 10/06/22 Unknown Rx potassium chloride 20 mEq 40 meq PO DAILY #60 tabs 08/16/22 10/06/22 Unknown Rx tablet,extended release 2 Layer Compression Bandage #1 ea 10/03/22 10/06/22 Unknown Rx System- Coflex TLC LITE Calamine with Indicators 4 in x6 yard/4 in by 7 yard Allergies Allergy/AdvReac Type Severity Reaction Status Date / Time aspirin Allergy ALGY-Anaphy Verified 10/06/22 13:17 laxis carvedilol AdvReac diarrhea Verified 10/06/22 13:17 hydralazine AdvReac vomiting Verified 10/06/22 13:17 Current Medications Generic Name Dose Route Start Last Admin Trade Name Freq PRN Reason Stop Dose Admin Amlodipine Besylate 10 mg 10/07/22 09:00 10/07/22 08:22 Amlodipine 10 Mg Tablet PO 10 mg DAILY LC Administration Bumetanide 1 mg 10/06/22 16:58 10/07/22 05:53 Bumetanide 0.25 Mg/Ml Sdv 4 Ml IVP 1 mg Q12H LC Administration Colchicine 0.6 mg 10/07/22 09:00 10/07/22 08:46 Colchicine 0.6 Mg Tablet PO 0.6 mg DAILY LC Administration Finasteride 5 mg 10/07/22 09:00 10/07/22 08:22 Finasteride 5 Mg Tablet PO 5 mg DAILY LC Administration Ceftriaxone Sodium 1,000 mg/ 50 mls @ 100 mls/hr 10/06/22 15:00 10/06/22 17:02 Sodium Chloride IV Infused Q24H LC Infusion Protocol Insulin Human Lispro 0 unit 10/06/22 18:00 10/07/22 08:21 Insulin Lispro 100 Unit/1 Ml SUBCUT 8 unit TIDWM LC Administration Protocol Morphine Sulfate 2 mg 10/06/22 16:58 10/06/22 18:00 Morphine 4 Mg/Ml Sdv 1 Ml IVP 2 mg Q4H PRN Administration SEVERE PAIN Multivitamins Therapeutic 1 tab 10/07/22 09:00 10/07/22 08:22 Multivitamin Therapeutic Tablet PO 1 tab DAILY LC Administration Non-Formulary Medication 400 mg 10/07/22 09:00 10/07/22 08:27 Pentoxifylline PO Not Given DAILY LC Pantoprazole Sodium 40 mg 10/06/22 16:58 10/06/22 17:59 Pantoprazole 40 Mg Sdv IVP 40 mg Q24H LC Administration Potassium Chloride 40 meq 10/07/22 09:00 10/07/22 08:22 Potassium Chloride Er 20 Meq Tablet PO 40 meq DAILY LC Administration Pregabalin 300 mg 10/06/22 18:00 10/07/22 08:22 Pregabalin 150 Mg Capsule PO 300 mg BID LC Administration Tamsulosin HCl 0.4 mg 10/06/22 21:00 10/06/22 20:50 Tamsulosin 0.4 Mg Capsule PO 0.4 mg BEDTIME LC Administration Vitamin D 2,000 unit 10/07/22 06:00 10/07/22 05:52 Cholecalciferol (Vitamin D3) 1,000 Unit Tablet PO 2,000 unit QAM LC Administration PFSH Acute PFSH: Medical History (Updated 10/07/22 @ 12:38 by Miguel Davila PA-C) Abnormal nuclear stress test Accelerated hypertension Acute kidney injury Acute on chronic diastolic (congestive) heart failure Atrial fibrillation Chronic, history of bradycardia with beta blockers, on eliquis Atrial fibrillation Atrial fibrillation Bilateral lower leg cellulitis BMI 40.0-44.9, adult BPH NOS w/o ur obs/LUTS Bradycardia Calculus of proximal ureter CHF exacerbation Chronic anticoagulation eliquis Chronic diastolic heart failure Chronic kidney disease CKD (chronic kidney disease) Congestive heart failure Constipation Coronary artery disease Evaluated in [facility], patient reports 55% narrowing unknown vessel no stent or angioplasty done CVA (cerebral vascular accident) residual right weakness Diabetes mellitus, type II Diabetic neuropathy associated with type 2 diabetes mellitus Gout attack Hyperkalemia Hyperlipidemia Hypertension Hypokalemia Ischemic toe ulcer Lumbar foraminal stenosis Nicotine dependence, chewing tobacco, with other nicotine-induced disorders Obesity BMI-42 kg/m2 Obstructive sleep apnea not on treatment by choice Osteoarthritis PAD (peripheral artery disease) Peripheral arterial disease Pes planus of both feet Physical deconditioning PVD (peripheral vascular disease) Renal calculus, right Rhabdomyolysis Squamous cell carcinoma in situ Swelling of right upper extremity Temporary transvenous cardiac pacemaker present Surgical History Hx of colonoscopy with polypectomy No pertinent past surgical history Status post cardiac pacemaker procedure Family History Mother , 87 Diabetes CAD (coronary artery disease) Hypertension Father , 60 No problems noted. Social History Smoking and tobacco status: current every day smoker (chew tobacco) pipe Pipes smoked per week: 1 Years smoked pipe: 54 and smokeless tobacco Smokeless tobacco user: chewing tobacco Alcohol intake: former Year of sobriety/quit date alcohol: 26 y Former alcohol use details: heavy use, 5 DWI's Substance/Drug Use: former Household members: none Housing: House Marital status: service: Yes Current occupational status: retired Vitals/I&O/Wt Last Vital Signs Temp 98.2 F 10/07/22 00:00 Pulse 78 10/07/22 07:29 Resp 18 10/07/22 07:29 BP 166/93 10/07/22 07:29 Pulse Ox 95 10/07/22 07:29 O2 Del Method Room Air 10/07/22 07:29 10/06/22 10/07/22 10/07/22 22:59 06:59 14:59 Intake Total 290 / 290 240 / 530 240 / 240 Output Total 125 / 125 400 / 525 Balance 165 / 165 -160 / 5 240 / 240 Weight last 48 hrs Weight 329 lb Physical Exam Narrative: He is alert oriented x3 he has a good general appearance normal mood and affect. Large truncal obesity. He is tender with palpation in the low back worse on the right than the left. No palpable pain in the thoracic spine. Has good sensation through both hips into his thighs. 4/5's strength with hip flexion. Negative logroll bilaterally. Positive straight leg raise bilaterally. He has hyperpigmentation on his lower legs with 3+ pitting edema in the right foot 2+ on the left. He has decreased sensation diffusely down both lower extremities below the knees. His pulses are not palpable at the dorsalis pedis and posterior tibial region. He does have warmth to light touch in both feet. He is able to wiggle his toes. His calves are supple. HENMT: COMMON NORMALS: normocephalic and atraumatic HEAD & SCALP: normocephalic and atraumatic Resp: COMMON NORMALS: normal respiratory effort Cardio: COMMON NORMALS: regular rate and regular rhythm RATE: regular rate RHYTHM: regular rhythm OTHER: Pacemaker present GI: OTHER: Distended nontender : COMMON NORMALS: Yes no CVA tenderness BLADDER/KIDNEY EXAM: Yes no CVA tenderness Back/Pelvis: COMMON NORMALS: no CVA tenderness THORACIC SPINE/UPPER BACK: Yes normal to inspection Psych: COMMON NORMALS: mental status grossly normal and cooperative Data 10/07/22 06:13 10/07/22 06:13 Micro: Microbiology 10/06/22 11:00 Blood Culture - Preliminary Blood NEGATIVE TO DATE 10/06/22 10:18 Blood Culture - Preliminary Blood NEGATIVE TO DATE Other CT: Radiologist's impression: CT/CT lumbar spine wo con* [id number] IMPRESSION: 1. ? L2-L3 broad-based disc bulge with moderate spinal canal and moderate to severe bilateral foraminal narrowing, similar to prior exam. 2. ? L3-L4 broad-based disc bulge with moderate spinal canal and severe bilateral foraminal narrowing, similar to prior exam.? 3. ? L4-L5 broad-based disc bulge with moderate to severe spinal canal narrowing and severe bilateral foraminal narrowing, similar to prior exam. A&P Assessment and plan (1) Spinal stenosis, lumbar region, with neurogenic claudication: Reviewed the CT scan which shows degenerative changes throughout the lumbar spine. Appears to have a Schmorl's node at L2 vertebral body. There is severe stenosis L2-3 L3-4 L4-5. Lumbar facet arthropathy evident at every level. There is vacuum disc phenomenon at L2-3 L3-4 L4-5. Ideally an MRI scan would be more helpful but with his pacemaker is unable to have one. I reviewed the MRI scan on 04/19/2021 from [facility] which showed arthritic changes in the Schmorl's node at L2 vertebral body showed moderate stenosis L3-4 severe stenosis L4-5 with a grade 1 spinal listhesis evident with failing facets at L4-5 with mild broad-based disc herniation at L5-S1. Treatment options would involve going to the pain clinic for outpatient injections. Certainly with his diabetes would need to monitor closely. Water therapy would be helpful as well. Last option would be surgical decompression. He states that 50% of his pain is from his low back and 50% in his leg weakness. With his failing facets at L4-5 with a spondylolisthesis certainly a concern of destabilization with his decompression and not fusion would exist at that level. Patient does report that he is much better today than he was yesterday. Continued Decadron in correlation with physical therapy to work with mobilization may be the best option. Also getting him to outpatient pain clinic and we can manage him in the clinic. After discussing all these options with the patient he states he does not want anything surgically done. So we will move forward with physical therapy, outpatient physical therapy, water therapy. Consultation with the pain clinic. And will be available if anything further changes with his condition. Discussed this at length with Dr. Mcgee agrees above-stated plan. More than 50% of the time spent with the patient today involved coordination of care, counseling and discussion of conservative versus surgical treatment options. Total amount of time spent with the patient was 60 minutes. 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
[2022-10-07] MEDS: cefTRIAXone 1,000 MG in sodium chloride 0.9% (plus) 50 ML 100 MG IV (14:14)
[2022-10-07] MEDS: dexamethasone 10 mg/mL INJ IVP (14:15)
[2022-10-07 15:47] VITALS: BP 162/83; PULSE 69; RESP 16; TEMP 36.4; O2SAT 93
[2022-10-07 16:36] LABS: Glucose Point of Care 356 mg/dL (70-110)
--- NOTE | 2022-10-07 16:46 | P.PN_ITS ---
Subjective Subjective: Patient was seen this morning, he tells me his edema is improving his shortness of breath is improving he also can move his lower extremities more, he tells me that they have lost weight, and he has more movement in his lower extremities Vitals/I&O/Wt Last Vital Signs Temp 97.6 F 10/07/22 15:47 Pulse 69 10/07/22 15:47 Resp 16 10/07/22 15:47 BP 162/83 10/07/22 15:47 Pulse Ox 93 10/07/22 15:47 O2 Del Method Room Air 10/07/22 15:47 10/07/22 10/07/22 10/07/22 06:59 14:59 22:59 Intake Total 240 / 530 530 / 530 Output Total 400 / 525 Balance -160 / 5 530 / 530 Weight last 48 hrs Weight 149.232 kg Physical Exam Const: COMMON NORMALS: no acute distress and patient oriented x3 Resp: COMMON NORMALS: normal respiratory effort, No retractions, No use of accessory muscles and clear to auscultation bilaterally AUSCULTATION: clear to auscultation bilaterally Cardio: COMMON NORMALS: regular rate, regular rhythm, S1 normal heart sound present and S2 normal heart sound present RATE: regular rate RHYTHM: regular rhythm HEART SOUNDS: S1 normal heart sound present and S2 normal heart sound present GI: COMMON NORMALS: Normal to inspection, nondistended, normoactive bowel sounds present and non-tender Extremity: NARRATIVE EXTREMITY EXAM: 1+ pitting edema Neuro: COMMON NORMALS: patient oriented x3 Psych: COMMON NORMALS: mental status grossly normal Skin: OTHER: Bilateral ankle jerk reflexes present but diminished, bilateral knee jerk reflexes present but diminished Data 10/07/22 06:13 10/07/22 06:13 Micro: Microbiology 10/06/22 11:00 Blood Culture - Preliminary Blood NEGATIVE TO DATE 10/06/22 10:18 Blood Culture - Preliminary Blood NEGATIVE TO DATE A&P Assessment and plan (1) Lower extremity weakness: (2) Hyperlipidemia: Qualifiers: Hyperlipidemia type: unspecified Qualified Code(s): E78.5 - Hyperlipidemia, unspecified (3) Right foot drop: (4) Diabetic peripheral neuropathy associated with type 2 diabetes mellitus: (5) Sacroiliitis: (6) Lumbar foraminal stenosis: (7) Benign essential hypertension with target blood pressure below 140/90: (8) CHF exacerbation: Qualifiers: Heart failure type: combined systolic and diastolic Qualified Code(s): I50.43 - Acute on chronic combined systolic (congestive) and diastolic (congestive) heart failure (9) Atrial fibrillation: Qualifiers: Atrial fibrillation type: longstanding persistent Qualified Code(s): I 48.11 - Longstanding persistent atrial fibrillation (10) Fluid overload: (11) BMI 40.0-44.9, adult: (12) Diabetes mellitus, type II: Qualifiers: 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 insulin use: with straightening press operator helper use Diabetes mellitus complication status: with neurologic complications Diabetes mellitus complication detail: with polyneuropathy Qualified Code(s): E11.42 - Type 2 diabetes mellitus with diabetic polyneuropathy; Z79.4 - emergency room tech (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 ? L2-L3 broad-based disc bulge with moderate spinal canal and moderate to severe bilateral foraminal narrowing, similar to prior exam. 2. ? L3-L4 broad-based disc bulge with moderate spinal canal and severe bilateral foraminal narrowing, similar to prior exam.? 3. ? L4-L5 broad-based disc bulge with moderate to severe spinal canal narrowing and severe bilateral foraminal narrowing, similar to prior exam. Plan -Symptoms do seem acute on chronic -Symptoms are likely worsening of lumbar spinal disease worsening of spinal stenosis -Continue Decadron -Consult orthopedic spine -I think very unlikely that he has Guillain-Angulo? or AIDP -I ordered an ESR 27 , CRP 172.5, autoimmune bodies, -This also could be related to his diabetic related, diabetic neuropathy, as he had does have diabetic neuropathy, does have reported right foot drop -B12 WNL, folic acid WNL, TSH WNL, -PT OT ordered -Morphine for pain control -Decadron for decreasing inflammation -Goals of care discussion, patient would like to be a full code -Eliquis for DVT prophylaxis Systolic and diastolic CHF exacerbation, fluid overload -Has bilateral extremity 1+ pitting edema -We will start him on Bumex 1 mg every 12 hours -Monitor creatinine, monitor potassium, monitor urine output Type 2 diabetes mellitus, moderate dose sliding scale He does have a UTI -I am not exactly sure if the UTI is playing a role, as his weakness is part of his lower extremities, not generalized -coutinue Rocephin -Follow urine cultures, blood cultures Atrial fibrillation, continue Eliquis, continue home medications History of carotid artery disease History of type 2 diabetes mellitus Hypertension Obesity History of CVA reported residual right-sided weakness History of gout History of SACHIN spoke to orthopedics, spoke to nursing staff, spoke to patient Attestations Medical Necessity Statement*: Patient requires hospitalization for lower extremity weakness, CHF exacerbation, UTI, requiring inpatient admission, Diagnoses Lower extremity weakness R29.898 Hyperlipidemia E78.5 Hyperlipidemia type: unspecified Right foot drop M21.371 Diabetic peripheral neuropathy associated with type 2 diabetes mellitus E11.42 Sacroiliitis M46.1 Lumbar foraminal stenosis M48.061 Benign essential hypertension with target blood pressure below 140/90 I10 CHF exacerbation I50.43 Heart failure type: combined systolic and diastolic Atrial fibrillation I48.11 Atrial fibrillation type: longstanding persistent Fluid overload E87.70 BMI 40.0-44.9, adult Z68.41 Diabetes mellitus, type II E11.42; Z79.4 Diabetes mellitus penitentiary insulin use: with penitentiary use Diabetes mellitus complication status: with neurologic complications Diabetes mellitus complication detail: with polyneuropathy Bilateral edema of lower extremity R60.0
[2022-10-07] MEDS: pantoprazole 40 mg SDV IVP (17:10)
[2022-10-07] MEDS: insulin glargine 100 units/1 mL 10 UNIT SUBCUT (18:12)
[2022-10-07 19:44] VITALS: BP 165/78; PULSE 89; RESP 16; TEMP 36.8; O2SAT 95
[2022-10-07] MEDS: tamsulosin 0.4 mg Capsule PO (20:17)
[2022-10-07 20:41] LABS: Glucose Point of Care 334 mg/dL (70-110)
[2022-10-07 21:04] VITALS: PULSE 81; RESP 16; O2SAT 97
[2022-10-07 23:29] VITALS: BP 160/80; PULSE 67; RESP 16; TEMP 36.4; O2SAT 95
[2022-10-08] VITALS (8 sets, daily range): BP systolic 141–174; BP diastolic 74–78; PULSE 60–68; RESP 16–95; TEMP 36.4–37.1; O2SAT 93–97
[2022-10-08] MEDS: bumetanide 0.25 mg/mL SDV 4 mL 1 MG IVP ×2 (05:30→17:43)
[2022-10-08] MEDS: cholecalciferol (vitamin D3) 1,000 unit Tablet 2000 UNIT PO (05:30)
[2022-10-08 06:43] LABS: Glucose Point of Care 412 mg/dL (70-110)
[2022-10-08 07:13] LABS: Basophils % 0.1 %; Hematocrit 44.7 % (42.0-52.0); Hemoglobin 14.8 g/dL (11.7-16.6); Lymphocytes # 0.9 10^3/uL (0.8-4.8); Lymphocytes % 6.1 %; Mean Corpuscular HGB Conc 33.1 g/dL (30.0-36.0); Mean Corpuscular Hemoglobin 28.2 pg (28.0-34.0); Mean Corpuscular Volume 85.3 fl (80-94); Mean Platelet Volume 11.2 fL (7.4-10.4); Monocytes # 0.4 10^3/uL (0.2-0.9); Monocytes % 2.6 %; Neutrophils # 13.03 10^3/uL (1.8-7.7); Neutrophils % 90.5 %; Nucleated Red Blood Cells % 0 %; Platelet Count 208 10^3/cmm (130-400); Red Blood Count 5.24 10^6/uL (4.1-5.3); Red Cell Distribution Width 13.3 % (12.1-15.1); White Blood Count 14.4 10^3/uL (4.0-10.0)
[2022-10-08 07:28] LABS: Alanine Aminotransferase 7 U/L (0-41); Albumin Level 3.6 g/dL (3.5-5.2); Alkaline Phosphatase 99 U/L (40-130); Anion Gap 15.5 (5-19); Aspartate Amino Transferase 9 U/L (0-40); Blood Urea Nitrogen 36 mg/dL (8-23); Calcium 9.1 mg/dL (8.5-10.5); Carbon Dioxide 27 mmol/L (22-29); Chloride 96 mmol/L (98-107); Glucose 376 mg/dL (65-115); Magnesium 2.3 mg/dL (1.7-2.3); Osmolality Calculated 302 mOsm/kg (285-295); Phosphorus 3.6 mg/dL (2.5-4.5); Potassium 4.5 mmol/L (3.5-5.1); Sodium 134 mmol/L (136-145); Total Bilirubin 0.3 mg/dL (0.15-1.2); Total Protein 6.6 g/dL (6.6-8.7)
[2022-10-08 07:53] LABS: Glucose Point of Care 439 mg/dL (70-110)
[2022-10-08] MEDS: finasteride 5 mg Tablet PO (08:26)
[2022-10-08] MEDS: insulin lispro 100 unit/1 mL SUBCUT ×3 (08:26→17:43)
[2022-10-08] MEDS: insulin glargine 100 units/1 mL 10 UNIT SUBCUT (08:26)
[2022-10-08] MEDS: potassium chloride ER 20 mEq Tablet 40 MEQ PO (08:27)
[2022-10-08] MEDS: amlodipine 10 mg Tablet PO (08:27)
[2022-10-08] MEDS: multivitamin therapeutic Tablet 1 TAB PO (08:27)
[2022-10-08] MEDS: pregabalin 150 mg Capsule 300 MG PO ×2 (08:27→17:44)
[2022-10-08] MEDS: predniSONE 20 mg Tablet 40 MG PO (08:27)
[2022-10-08] MEDS: colchicine 0.6 mg Tablet PO (08:29)
[2022-10-08 11:05] LABS: Glucose Point of Care 448 mg/dL (70-110)
[2022-10-08 13:19] LABS: Lyme AB Screen <0.90 index
[2022-10-08 14:18] LABS: COMPLEMENT COMPONENT C3C 167 mg/dL (82-185); COMPLEMENT COMPONENT C4C 30 mg/dL (15-53)
[2022-10-08 14:33] LABS: CENTROMERE B ANTIBODY <1.0 NEG AI (<1.0 NEG); JO-1 ANTIBODY <1.0 NEG AI (<1.0 NEG); RNP ANTIBODY <1.0 NEG AI (<1.0 NEG); SCL-70 ANTIBODY <1.0 NEG AI (<1.0 NEG); SJOGREN'S ANTIBODY (SS-A) <1.0 NEG AI (<1.0 NEG); SM ANTIBODY <1.0 NEG AI (<1.0 NEG); SS-B <1.0 NEG AI (<1.0 NEG)
[2022-10-08] MEDS: cefTRIAXone 1,000 MG in sodium chloride 0.9% (plus) 50 ML 100 MG IV (16:04)
--- NOTE | 2022-10-08 16:39 | P.PN_ITS ---
Subjective Subjective: Patient was seen this morning, he tells me that he continues to have episodes of shortness of breath and had lower extremity edema, his blood sugars are elevated, clarified with patient nursing staff that patient takes Lantus 61 twice daily, he is agreeable to go to [facility] facility, for rehab, Vitals/I&O/Wt Last Vital Signs Temp 98.1 F 10/08/22 15:18 Pulse 61 10/08/22 15:18 Resp 18 10/08/22 15:18 BP 141/77 10/08/22 15:18 Pulse Ox 93 10/08/22 15:18 O2 Del Method Room Air 10/08/22 15:18 10/08/22 10/08/22 10/08/22 06:59 14:59 22:59 Intake Total 480 / 480 Output Total 300 / 750 Balance -300 / 420 480 / 480 Physical Exam Const: COMMON NORMALS: no acute distress and patient oriented x3 Resp: COMMON NORMALS: normal respiratory effort, No retractions, No use of accessory muscles and clear to auscultation bilaterally AUSCULTATION: clear to auscultation bilaterally Cardio: COMMON NORMALS: regular rate, regular rhythm, S1 normal heart sound present and S2 normal heart sound present RATE: regular rate RHYTHM: regular rhythm HEART SOUNDS: S1 normal heart sound present and S2 normal heart sound present GI: COMMON NORMALS: Normal to inspection, nondistended, normoactive bowel sounds present and non-tender Extremity: COMMON NORMALS: no pedal edema Neuro: COMMON NORMALS: patient oriented x3 OTHER: Strength in bilateral lower extremities, 3 out of 5 bilaterally, Psych: COMMON NORMALS: mental status grossly normal Data 10/08/22 06:12 10/08/22 06:12 A&P Assessment and plan (1) Lower extremity weakness: (2) Hyperlipidemia: Qualifiers: Hyperlipidemia type: unspecified Qualified Code(s): E78.5 - Hyperlipidemia, unspecified (3) Right foot drop: (4) Diabetic peripheral neuropathy associated with type 2 diabetes mellitus: (5) Sacroiliitis: (6) Lumbar foraminal stenosis: (7) Benign essential hypertension with target blood pressure below 140/90: (8) CHF exacerbation: Qualifiers: Heart failure type: combined systolic and diastolic Qualified Code(s): I50.43 - Acute on chronic combined systolic (congestive) and diastolic (congestive) heart failure (9) Atrial fibrillation: Qualifiers: Atrial fibrillation type: longstanding persistent Qualified Code(s): I4 8.11 - Longstanding persistent atrial fibrillation (10) Fluid overload: (11) BMI 40.0-44.9, adult: (12) Diabetes mellitus, type II: Qualifiers: Diabetes mellitus termite control technician insulin use: with termite control technician use Diabetes mellitus complication status: with neurologic complications Diabetes mellitus complication detail: with polyneuropathy Qualified Code(s): E11.42 - Type 2 diabetes mellitus with diabetic polyneuropathy; Z79.4 - half-way (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 ? L2-L3 broad-based disc bulge with moderate spinal canal and moderate to severe bilateral foraminal narrowing, similar to prior exam. 2. ? L3-L4 broad-based disc bulge with moderate spinal canal and severe bilateral foraminal narrowing, similar to prior exam.? 3. ? L4-L5 broad-based disc bulge with moderate to severe spinal canal narrowing and severe bilateral foraminal narrowing, similar to prior exam. Plan -Symptoms do seem acute on chronic -Symptoms are likely worsening of lumbar spinal disease worsening of spinal stenosis -Continue de-escalate to prednisone -Consult orthopedic spine -I think very unlikely that he has Guillain-Angulo? or AIDP -I ordered an ESR 27 , CRP 172.5, autoimmune bodies, -This also could be related to his diabetic related, diabetic neuropathy, as he had does have diabetic neuropathy, does have reported right foot drop -B12 WNL, folic acid WNL, TSH WNL, -PT OT ordered -Morphine for pain control -Prednisone for decreasing inflammation -Goals of care discussion, patient would like to be a full code -Eliquis for DVT prophylaxis Systolic and diastolic CHF exacerbation, fluid overload -Has bilateral extremity 1+ pitting edema -Increase Bumex to 1 mg every 8 hours -Monitor creatinine, monitor potassium, monitor urine output Type 2 diabetes mellitus, moderate dose sliding scale He does have a UTI -I am not exactly sure if the UTI is playing a role, as his weakness is part of his lower extremities, not generalized -joanna Chambers -Follow urine cultures, blood cultures Atrial fibrillation, continue Eliquis, continue home medications History of carotid artery disease History of type 2 diabetes mellitus Hypertension Obesity History of CVA reported residual right-sided weakness History of gout History of SACHIN Spoke to patient, spoke to nursing staff, plan for today increase Bumex to 1 mg every 8 hours de-escalate prednisone to 40 mg, increase Lantus to 20 units twice daily, moderate dose sliding scale, monitor blood sugars closely, up out of bed, working on placement to [facility] facility Attestations Medical Necessity Statement*: Patient requires hot position for bilateral lower extremity weakness, CHF exacerbation, UTI Diagnoses Lower extremity weakness R29.898 Hyperlipidemia E78.5 Hyperlipidemia type: unspecified Right foot drop M21.371 Diabetic peripheral neuropathy associated with type 2 diabetes mellitus E11.42 Sacroiliitis M46.1 Lumbar foraminal stenosis M48.061 Benign essential hypertension with target blood pressure below 140/90 I10 CHF exacerbation I50.43 Heart failure type: combined systolic and diastolic Atrial fibrillation I48.11 Atrial fibrillation type: longstanding persistent Fluid overload E87.70 BMI 40.0-44.9, adult Z68.41 Diabetes mellitus, type II E11.42; Z79.4 Diabetes mellitus termite control technician insulin use: with termite control technician use Diabetes mellitus complication status: with neurologic complications Diabetes mellitus complication detail: with polyneuropathy Bilateral edema of lower extremity R60.0
[2022-10-08 17:14] LABS: COMPLEMENT, TOTAL (CH50) >60 U/mL (31-60)
[2022-10-08 17:20] LABS: Glucose Point of Care 417 mg/dL (70-110)
[2022-10-08] MEDS: pantoprazole 40 mg SDV IVP (17:44)
[2022-10-08 20:33] LABS: Glucose Point of Care 401 mg/dL (70-110)
[2022-10-08] MEDS: tamsulosin 0.4 mg Capsule PO (21:04)
[2022-10-08] MEDS: insulin glargine 100 units/1 mL 20 UNIT SUBCUT (21:04)
[2022-10-09] MEDS: bumetanide 0.25 mg/mL SDV 4 mL 1 MG IVP ×2 (01:03→08:30)
[2022-10-09 03:12] VITALS: BP 170/84; PULSE 78; RESP 16; TEMP 36.9; O2SAT 94
[2022-10-09] MEDS: cholecalciferol (vitamin D3) 1,000 unit Tablet 2000 UNIT PO (06:29)
[2022-10-09 06:38] LABS: Glucose Point of Care 365 mg/dL (70-110)
[2022-10-09 07:02] LABS: Basophils % 0.1 %; Hemoglobin 14.2 g/dL (11.7-16.6); Lymphocytes # 1.4 10^3/uL (0.8-4.8); Lymphocytes % 9.5 %; Mean Corpuscular Volume 84.8 fl (80-94); Mean Platelet Volume 11.1 fL (7.4-10.4); Monocytes # 0.6 10^3/uL (0.2-0.9); Monocytes % 4.1 %; Neutrophils % 85.4 %; Nucleated Red Blood Cells % 0 %; Platelet Count 232 10^3/cmm (130-400); Red Blood Count 5.07 10^6/uL (4.1-5.3); Red Cell Distribution Width 13.5 % (12.1-15.1); White Blood Count 14.9 10^3/uL (4.0-10.0)
[2022-10-09 07:21] VITALS: PULSE 60; RESP 16; O2SAT 95
[2022-10-09 07:23] LABS: Alanine Aminotransferase 8 U/L (0-41); Albumin Level 3.4 g/dL (3.5-5.2); Alkaline Phosphatase 97 U/L (40-130); Anion Gap 15.1 (5-19); Aspartate Amino Transferase 9 U/L (0-40); Blood Urea Nitrogen 45 mg/dL (8-23); Calcium 8.6 mg/dL (8.5-10.5); Carbon Dioxide 27 mmol/L (22-29); Chloride 99 mmol/L (98-107); Glucose 364 mg/dL (65-115); Magnesium 2.3 mg/dL (1.7-2.3); Osmolality Calculated 310 mOsm/kg (285-295); Phosphorus 3.6 mg/dL (2.5-4.5); Potassium 4.1 mmol/L (3.5-5.1); Sodium 137 mmol/L (136-145); Total Bilirubin 0.3 mg/dL (0.15-1.2); Total Protein 6.4 g/dL (6.6-8.7)
[2022-10-09] MEDS: potassium chloride ER 20 mEq Tablet 40 MEQ PO (07:51)
[2022-10-09] MEDS: predniSONE 20 mg Tablet 40 MG PO (07:52)
[2022-10-09] MEDS: finasteride 5 mg Tablet PO (07:52)
[2022-10-09] MEDS: amlodipine 10 mg Tablet PO (07:52)
[2022-10-09] MEDS: colchicine 0.6 mg Tablet PO (07:52)
[2022-10-09] MEDS: multivitamin therapeutic Tablet 1 TAB PO (07:53)
[2022-10-09] MEDS: pregabalin 150 mg Capsule 300 MG PO (07:53)
[2022-10-09] MEDS: insulin lispro 100 unit/1 mL SUBCUT ×2 (07:55→12:18)
[2022-10-09] MEDS: insulin glargine 100 units/1 mL 20 UNIT SUBCUT (07:58)
[2022-10-09 08:00] VITALS: BP 175/79; PULSE 60; RESP 18; TEMP 36.8; O2SAT 94
--- NOTE | 2022-10-09 10:24 | PC.CHAP ---
Pastoral Care Encounter/Spiritual Assessment Type of Contact [] Declined airplane cabin attendant visit [] Patient/Family/Request visit [] Outpatient visit [] Follow-up visit [] Physician referral [] Code/Alert [x] Routine visit [] Staff referral [] Actively dying [] Patient sleeping [] Family support [] [] Out of room [] Palliative care [] [x] Receiving care in room [] Pre-surgical visit [] Trauma [] Long length of stay [] ICU visit [] Other: Relational/Emotional Strength [x] Patient feels connected with others/family/visitors/staff [] Distress [] Loneliness/isolation [] Abandonment Spirituality of Patient [x] Person of Christina [] Attends Mu-Ism of their Christina [x] Believes in Prayer [] Reads Bible or Gnosticism materials [] There are Spiritual issues to be addressed Distillation Operator Interventions [x] Prayer [x] Active listening [x] Non-anxious presence [x] Spiritual/emotional support [] Crisis/trauma care [x] Spiritual counseling [] Bereavement support [] Provided bereavement packet [] Provided Bible/devotional materials [] Provided toy/stuffed animal, coloring book to patient or family member [] Provided Communion [] Anointing/[place] [] Salvation [x] Completed spiritual assessment [] Other: Impact on Illness or Injury [] Angry [] Fearful [] Anxious [] Often cries [] Exhaustion [] Unable to work [] Unable to attend advent [] Unable to walk/stand [] Unable to read [] Unable to drive [] Unable to eat/drink [] Unable to sleep [] Unable to be with family [] Patient intubated [] Other: Summary swelling in leg is wheel chair doesn't a bout her health condistion Time spent with patient 10 mins
[2022-10-09 11:16] LABS: SARS Covid-2 Antigen negative (Negative)
[2022-10-09 11:19] LABS: Glucose Point of Care 393 mg/dL (70-110)
--- NOTE | 2022-10-09 12:15 | PM.DCS ---
Discharge Providers Date of Admission: 10/06/22 15:04 Date of Discharge: October 09, 2022 Attending Provider at Admission: Jone Pastor MD Attending Provider at Discharge: Jone Pastor MD Primary Care Provider: Jessica Bui MD Diagnoses at Discharge Discharge Diagnosis (1) Lower extremity weakness: Status: Acute (2) Hyperlipidemia: Status: Acute Qualifiers: Hyperlipidemia type: unspecified Qualified Code(s): E78.5 - Hyperlipidemia, unspecified (3) Right foot drop: Status: Acute (4) Diabetic peripheral neuropathy associated with type 2 diabetes mellitus: Status: Acute (5) Sacroiliitis: Status: Acute (6) Lumbar foraminal stenosis: Status: Chronic (7) Benign essential hypertension with target blood pressure below 140/90: Status: Acute (8) CHF exacerbation: Status: Acute Qualifiers: Heart failure type: combined systolic and diastolic Qualified Code(s): I50.43 - Acute on chronic combined systolic (congestive) and diastolic (congestive) heart failure (9) Atrial fibrillation: Status: Acute Qualifiers: Atrial fibrillation type: longstanding persistent Qualified Code(s): I48.11 - Longstanding persistent atrial fibrillation Permanent problem details: Chronic, history of bradycardia with beta blockers, on eliquis (10) Fluid overload: Status: Acute (11) BMI 40.0-44.9, adult: Status: Acute (12) Diabetes mellitus, type II: Status: Acute Qualifiers: Diabetes mellitus [facility] use: with [facility] Diabetes mellitus complication status: with neurologic complications Diabetes mellitus complication detail: with polyneuropathy Qualified Code(s): E11.42 - Type 2 diabetes mellitus with diabetic polyneuropathy; Z79.4 - care home (current) use of insulin (13) Bilateral edema of lower extremity: Status: Inactive Reason for Visit Reason for Visit: generalized weakness Hospital Course Hospital Course Giles Guillaume is a 72 year old male with a past medical history of insulin-dependent type 2 diabetes mellitus, CAD, systolic heart failure, peripheral arterial disease, fluid overload, gout, diabetic neuropathy,, lumbar foraminal stenosis, chronic back pain, sacroiliitis, chronic kidney disease, who presents to [facility] due to bilateral lower extremity weakness.? Patient tells me that normally he has chronic low back pain, difficulty ambulating, he ambulates with a walker, primarily by placing all his weight on the wheeled walker.? He tells me that he has been doing okay with this, no recent falls, recent injuries, but starting on Thursday he started to notice that he was weak in both lower extremities, had difficulty coordinating, decreased strength in bilateral lower extremities, he initially thought that it was his lymphedema wraps, he thought they were wrapped too tightly, he does also describe pain in both his knees, and his lower back, but is not worse than his usual amount he tells me, his big issue he tells me that he cannot bear weight, he cannot ambulate and at baseline he has difficulty ambulating a walker but now is suddenly worse, no recent falls of note, no recent injuries, he does report sinus symptoms for the last week, but denies any significant illness, no recent immunizations, no diarrhea he does report chronic urinary incontinence, which has been worse recently does report chronic bowel incontinence which is worse recently, does not describe any saddle or perianal anal anesthesia, does have chronic diabetic neuropathy, and lack of sensation in both feet, and shins, which is not significantly worse, no headache, no blurry vision, no neck stiffness, no nausea, no vomiting, no fevers, no chills, no facial droop no slurring of his words, no other paresthesias, no focal weakness.? He does describe increased lower extremity edema, he does take Bumex and has been feeling more short of breath recently, he does describe that he had a near syncopal episode roughly a month ago for which she came to the emergency room, and was discharged home, they thought heat it was a syncopal episode versus a TIA, he does have a history of a right foot drop, lumbar foraminal stenosis, has not had any back surgery, denies any ascending weakness Patient was admitted to [facility] for acute on chronic lower extremity weakness, with history of lumbar stenosis, patient underwent repeat CT scan which showed L3-L5 disease with spinal canal stenosis, broad-based disc bulging, orthopedic service was consulted, recommended medical management, with pain control, PT OT. Patient was managed with PT OT as inpatient, prednisone for anti-inflammatory coverage, and clinical monitoring. Patient's overall strength improved, discharged on a prednisone burst with [facility] with a follow-up with Dr. Wesley as outpatient. In addition during his hospitalization he was managed with the CHF exacerbation, received diuretic therapy, overall clinically improved, [facility] to [facility] Physical Exam Const: COMMON NORMALS: no acute distress and patient oriented x3 Resp: COMMON NORMALS: normal respiratory effort, No retractions, No use of accessory muscles and clear to auscultation bilaterally AUSCULTATION: clear to auscultation bilaterally Cardio: COMMON NORMALS: regular rate, regular rhythm, S1 normal heart sound present and S2 normal heart sound present RATE: regular rate RHYTHM: regular rhythm HEART SOUNDS: S1 normal heart sound present and S2 normal heart sound present GI: COMMON NORMALS: Normal to inspection, nondistended, normoactive bowel sounds present and non-tender Extremity: COMMON NORMALS: no pedal edema Neuro: COMMON NORMALS: patient oriented x3 Psych: COMMON NORMALS: mental status grossly normal Discharge Data Studies Completed and Pending Completed Studies During Hospitalization Category Date Time Status CT abdomen pelvis wo con [id number] Stat Cat Scan 10/06/22 11:[address] lumbar spine wo con* [id number] Stat Cat Scan 10/06/22 18:09 Completed XR chest 1V portable [id number] Stat Exams 10/06/22 09:09 Completed XR knee LT 3V* [id number] Stat Exams 10/06/22 09:09 Completed XR knee RT 3V* [id number] Stat Exams 10/06/22 09:09 Completed US venous duplex lower extremity bilat [CV venous Ultrasound 10/06/22 10:03 [place] [id number]] Stat Pending at discharge Category Date Time Status REMI Profile Rheumatology Stat Lab 10/06/22 16:10 Results Blood Culture Stat Lab 10/06/22 11:00 Results Ganglioside GD1b Antibody IgG Routine Lab 10/06/22 19:29 Received Ganglioside GD1b Antibody IgM Routine Lab 10/06/22 19:29 Received Ganglioside GM-1 Antibody IgG Routine Lab 10/06/22 19:29 Received Tick Panel Stat Lab 10/06/22 16:10 Results Vitamin B1 (Thiamine),Blood Routine Lab 10/06/22 16:10 Received Radiology Impressions Chest X-Ray 10/06/22 09:09 IMPRESSION: Cardiomegaly with small pleural effusions. Knee X-Ray 10/06/22 09:09 IMPRESSION: No acute findings. Abdomen/Pelvis CT 10/06/22 11:20 IMPRESSION: 1. Moderate diverticular burden in the mid to distal colon. No evidence for acute diverticulitis. 2. Normal appendix. 3. Nonobstructing lower pole RIGHT renal calcification. Additional lobulations of the RIGHT renal cortex cannot be evaluated further on this unenhanced exam. 4. No ascites or adenopathy. Lumbar Spine CT 10/06/22 18:09 IMPRESSION: 1. L2-L3 broad-based disc bulge with moderate spinal canal and moderate to severe bilateral foraminal narrowing, similar to prior exam. 2. L3-L4 broad-based disc bulge with moderate spinal canal and severe bilateral foraminal narrowing, similar to prior exam. 3. L4-L5 broad-based disc bulge with moderate to severe spinal canal narrowing and severe bilateral foraminal narrowing, similar to prior exam. Laboratory Results WBC 14.9 10^3/uL (4.0-10.0) H 10/09/22 06:06 RBC 5.07 10^6/uL (4.1-5.3) 10/09/22 06:06 Hgb 14.2 g/dL (11.7-16.6) 10/09/22 06:06 Hct 43.0 % (42.0-52.0) 10/09/22 06:06 MCV 84.8 fl (80-94) 10/09/22 06:06 MCH 28.0 pg (28.0-34.0) 10/09/22 06:06 MCHC 33.0 g/dL (30.0-36.0) 10/09/22 06:06 RDW 13.5 % (12.1-15.1) 10/09/22 06:06 Plt Count 232 10^3/cmm (130-400) 10/09/22 06:06 MPV 11.1 fL (7.4-10.4) H 10/09/22 06:06 Neut % (Auto) 85.4 % 10/09/22 06:06 Lymph % (Auto) 9.5 % 10/09/22 06:06 Carlton % (Auto) 4.1 % 10/09/22 06:06 Eos % (Auto) 0.0 % 10/09/22 06:06 Baso % (Auto) 0.1 % 10/09/22 06:06 Neut # (Auto) 12.70 10^3/uL (1.8-7.7) H 10/09/22 06:06 Lymph # (Auto) 1.4 10^3/uL (0.8-4.8) 10/09/22 06:06 Carlton # (Auto) 0.6 10^3/uL (0.2-0.9) 10/09/22 06:06 Eos # (Auto) 0.0 10^3/uL (0.0-0.8) 10/09/22 06:06 Baso # (Auto) 0.0 10^3/uL (0.0-0.1) 10/09/22 06:06 Nucleated RBC % (auto) 0 % 10/09/22 06:06 Nucleated RBCs # 0.0 /100WBC 10/09/22 06:06 ESR 27 mm/hr (0-10) H 10/06/22 09:30 Sodium 137 mmol/L (136-145) 10/09/22 06:06 Potassium 4.1 mmol/L (3.5-5.1) 10/09/22 06:06 Chloride 99 mmol/L (98-107) 10/09/22 06:06 Carbon Dioxide 27 mmol/L (22-29) 10/09/22 06:06 Anion Gap 15.1 (5-19) 10/09/22 06:06 BUN 45 mg/dL (8-23) H 10/09/22 06:06 Creatinine 1.4 mg/dL (0.7-1.2) H 10/09/22 06:06 GFR Calculation Not Reportable 10/09/22 06:06 Glucose 364 mg/dL (65-115) H 10/09/22 06:06 POC Glucose 393 mg/dL (70-110) H 10/09/22 11:09 Estimat Average Glucose 180 10/06/22 09:30 Hemoglobin A1c 7.9 % (4.0-6.0) H 10/06/22 09:30 Calculated Osmolality 310 mOsm/kg (285-295) H 10/09/22 06:06 Lactic Acid 1.1 mmol/L (0.5-2.2) 10/06/22 11:00 Calcium 8.6 mg/dL (8.5-10.5) 10/09/22 06:06 Phosphorus 3.6 mg/dL (2.5-4.5) 10/09/22 06:06 Magnesium 2.3 mg/dL (1.7-2.3) 10/09/22 06:06 Total Bilirubin 0.3 mg/dL (0.15-1.2) 10/09/22 06:06 AST 9 U/L (0-40) 10/09/22 06:06 ALT 8 U/L (0-41) 10/09/22 06:06 Alkaline Phosphatase 97 U/L (40-130) 10/09/22 06:06 Troponin T Baseline 56 ng/L (0-15) H 10/06/22 16:10 Troponin T 120 Minute 52.01 ng/L (0-15) H 10/06/22 19:29 Delta Troponin T -3.99 ABS# (0-10) L 10/06/22 19:29 Troponin T Hi Sens 6Hr 53.38 ng/L (0-15) H 10/06/22 22:01 Troponin T Hi Sens 6Hr Delta -2.62 ng/L (0-12) L 10/06/22 22:01 C-Reactive Protein 172.5 mg/L (0.0-4.9) H 10/06/22 09:30 NT-Pro-B Natriuret Pep 1402 pg/mL (0-125) H 10/06/22 09:33 Total Protein 6.4 g/dL (6.6-8.7) L 10/09/22 06:06 Albumin 3.4 g/dL (3.5-5.2) L 10/09/22 06:06 Globulin 3.0 g/dL (1.3-4.6) 10/09/22 06:06 Vitamin B12 257 pg/mL (232-1245) 10/06/22 09:30 Folate > 20.0 ng/mL (4.5-32.2) 10/06/22 16:10 Procalcitonin 0.28 ng/mL (0-0.5) 10/06/22 09:30 TSH 2.49 uIU/mL (0.27-4.20) 10/06/22 09:30 Urine Color Yellow (Yellow) 10/06/22 12:52 Urine Appearance Sl hazy (CLEAR) A 10/06/22 12:52 Urine pH 5 (5-7) 10/06/22 12:52 Ur Specific [place] 1.020 (1.005-1.030) 10/06/22 12:52 Urine Protein 3+ (Negative) H 10/06/22 12:52 Urine Glucose (UA) Norm (Normal) 10/06/22 12:52 Urine Ketones 1+ (Negative) H 10/06/22 12:52 Urine Blood 2+ (Negative) H 10/06/22 12:52 Urine Nitrate Negative (Negative) 10/06/22 12:52 Urine Bilirubin Neg (Negative) 10/06/22 12:52 Urine Urobilinogen 1 mg/dL (Negative) H 10/06/22 12:52 Ur Leukocyte Esterase Trace (Negative) H 10/06/22 12:52 Urine RBC 10-15 /hpf (0-2) H 10/06/22 12:52 Urine WBC 0-4 /hpf (0-5) H 10/06/22 12:52 Ur Squamous Epith Cells 0-4 /hpf (0-5) H 10/06/22 12:52 Amorphous Sediment 2+ /hpf 10/06/22 12:52 Urine Bacteria Trace /hpf (NONE) 10/06/22 12:52 Urine Mucus 3+ /hpf 10/06/22 12:52 Nasal Influ A H1 2008 PCR Not detected (NOT DETECT) 10/06/22 15:39 Urine Opiates Screen Negative ng/mL (Negative) 10/06/22 12:52 Ur Barbiturates Screen Negative ng/mL (Negative) 10/06/22 12:52 Ur Phencyclidine Scrn Negative ng/mL (Negative) 10/06/22 12:52 Ur Amphetamines Screen Negative ng/mL (Negative) 10/06/22 12:52 U Benzodiazepines Scrn Negative ng/mL (Negative) 10/06/22 12:52 Urine Cocaine Screen Negative ng/mL (Negative) 10/06/22 12:52 U Marijuana (THC) Screen Negative ng/mL (Negative) 10/06/22 12:52 Ethyl Alcohol < 10 mg/dL (0-10) 10/06/22 09:30 OLIVIA-1 Antibody <1.0 neg AI (<1.0 NEG) 10/06/22 16:10 SS-A Antibody <1.0 neg AI (<1.0 NEG) 10/06/22 16:10 SS-B Antibody <1.0 neg AI (<1.0 NEG) 10/06/22 16:10 Sm (Hensley) Antibody <1.0 neg AI (<1.0 NEG) 10/06/22 16:10 [employer] SUPER[employer]OR Antibody <1.0 neg AI (<1.0 NEG) 10/06/22 16:10 Scl-70 Antibody <1.0 neg AI (<1.0 NEG) 10/06/22 16:10 Centromere B Antibody <1.0 neg AI (<1.0 NEG) 10/06/22 16:10 Complement C3c 167 mg/dL (82-185) 10/06/22 16:10 Complement C4c 30 mg/dL (15-53) 10/06/22 16:10 CH50 Classical Pathway >60 U/mL (31-60) H 10/06/22 16:10 Adenovirus (PCR) Not detected (NOT DETECT) 10/06/22 15:39 Lyme Ab (Western Blot) <0.90 index 10/06/22 16:10 C. pneumoniae DNA (PCR) Not detected (NOT DETECT) 10/06/22 15:39 Coronavirus 229E (PCR) Not detected (NOT DETECT) 10/06/22 15:39 HIV 1&2 Ab & HIV 1 Ag Non-reactive (Non-Reactiv) 10/06/22 16:10 HIV 1&2 Antibody Non-reactive (Non-Reactiv) 10/06/22 16:10 Human Metapneumovir PCR Not detected (NOT DETECT) 10/06/22 15:39 Influenza A (H1) PCR Not detected (NOT DETECT) 10/06/22 15:39 Influenza A (H3) PCR Not detected (NOT DETECT) 10/06/22 15:39 Influenza Type A (PCR) Not detected (NOT DETECT) 10/06/22 15:39 Influenza Type B (PCR) Not detected (NOT DETECT) 10/06/22 15:39 M. pneumoniae (PCR) Not detected (NOT DETECT) 10/06/22 15:39 Parainfluenza 1 (PCR) Not detected (NOT DETECT) 10/06/22 15:39 Parainfluenza 2 (PCR) Not detected (NOT DETECT) 10/06/22 15:39 Parainfluenza 3 (PCR) Not detected (NOT DETECT) 10/06/22 15:39 Parainfluenza 4 (PCR) Not detected (NOT DETECT) 10/06/22 15:39 RSV Type A (PCR) Not detected (NOT DETECT) 10/06/22 15:39 RSV Type B (PCR) Not detected (NOT DETECT) 10/06/22 15:39 Entero/Rhino (PCR) Not detected (NOT DETECT) 10/06/22 15:39 SARS-CoV-2 (PCR) Not detected (NOT DETECT) 10/06/22 15:39 SARS-CoV-2 Ag (Rapid) negative (Negative) 10/09/22 09:42 Vitals Last Vital Signs Temp 98.3 F 10/09/22 08:00 Pulse 60 10/09/22 08:00 Resp 18 10/09/22 08:00 BP 175/79 10/09/22 08:00 Pulse Ox 94 10/09/22 08:00 O2 Del Method Room Air 10/09/22 08:00 Discharge Plan Discharge Patient Disposition: Xfer SNF Condition: Stable Prescriptions: New prednisone 20 mg Tablet 40 mg PO DAILY 3 Days Qty: 6 0RF Novolog FlexPen U-100 Insulin 100 unit/mL (3 mL) insulin pen See Rx Instructions .ROUTE .COMPLEX MDD 45 Qty: 15 0RF Rx Instructions: Inject, subcut, 3 times daily, after meals, based on sliding scale provided Continued (DME) ottobock afo to right See Rx Instructions .Route .MEDSUPPLY Qty: 1 0RF Rx Instructions: As directed by [employer] (DME) Diabetic Shoes with 3 pairs of inserts See Rx Instructions .ROUTE .MEDSUPPLY Qty: 1 0RF Rx Instructions: As directed by [employer] (DME) Silver Alginate Dressing and 2 Layer Compression System Wraps See Rx Instructions .Route .MEDSUPPLY Qty: 1 0RF Rx Instructions: Dressing supplies needed for 30 days with 3 Refills (DME) 2 Layer Compression Bandage System- Coflex TLC LITE Calamine with Indicators 4 in x6 yard/4 in by 7 yard See Rx Instructions .Route .MEDSUPPLY Qty: 1 0RF Rx Instructions: 32 boxes needed for 3 months Compression 20 to 30 mmHg- Ref. # [id number] multivitamin Tablet 1 tab PO DAILY 30 Days Qty: 30 0RF tamsulosin 0.4 mg capsule 0.4 mg PO BEDTIME 30 Days Qty: 30 0RF finasteride 5 mg tablet 5 mg PO DAILY 30 Days Qty: 30 0RF cholecalciferol (vitamin D3) [Vitamin D3] 2,000 unit Tablet 2,000 unit PO QAM 30 Days Qty: 30 0RF Eliquis 5 mg tablet 5 mg PO BID 30 Days Qty: 60 0RF pentoxifylline 400 mg Tablet Extended Release 400 mg PO DAILY amlodipine 10 mg Tablet 10 mg PO DAILY pregabalin [Lyrica] 300 mg Capsule 300 mg PO BID Ozempic 0.25 mg or 0.5 mg (2 mg/3 mL) Pen Injector 1 mg SUBCUT Q7D Rx Instructions: On Thursday colchicine [Colcrys] 0.6 mg tablet 0.6 mg PO DAILY Qty: 30 0RF potassium chloride 20 mEq Tablet Extended Release 40 meq PO DAILY Qty: 60 0RF Changed bumetanide 1 mg tablet 1 mg PO Q12H 30 Days Qty: 60 0RF insulin glargine 100 unit/mL (3 mL) insulin pen 25 unit SUBCUT Q12H Qty: 15 0RF Discharge Orders: Discharge Order (Routine); Ordered 10/09/22 Ordered By: Jone Pastor Referrals: [facility] [Outside] Jessica Bui MD [Primary Care Provider] - 10/20/22 2:00 pm Discharge Diet: Cardiac Discharge Activity: Resume usual activity Patient Instructions: Opioid Safety Activity Restrictions/Additional Instructions: -I increased you to Lantus to 25 units every 12 hours, monitor blood sugars closely -Especially as you are coming off prednisone, your insulin requirements might come down -Please monitor your blood sugars closely -Monitor your blood sugars 3 times daily as after meals -Please record your blood sugars, and a blood sugar log -For your NovoLog -Please inject blood sugar after meals based on sliding scale provided -Do not inject insulin if you do not eat as hypoglycemia kills -This is a NovoLog sliding scale -Insulin sliding ?fingerstick? Insulin ?141-180?0 units/sq 181-220?2 units/sq ?221-260?4 units/sq ?261-300 6 units/sq ?301-350?8 units/sq ?351-400 10 units/sq ?401-450?12 units/sq >450? 14units/sq -If your blood sugar is greater than 500 go to the emergency room -If your blood sugar is less than 60 or at anytime you feel lightheaded or dizzy or diaphoretic or have chest palpitations check your blood sugar, and eat a hard candy or drink orange juice and go immediately to the emergency room -Remember hypoglycemia kills, so if his blood sugar is less than 60 we have to increase it by taking in a sugary meal such as a hard candy or orange juice and go to the emergency room Discharge Attestations Time Spent in Discharge Care*: greater than 30 min Status at Discharge: Cognitive status at discharge: cognitively intact, Behavioral status at discharge: cooperative, Quality Metrics Clinical Quality Measures [ No reported AMI, CVA or VTE this stay] Coding Level of Care Code 11814 Total time (in minutes) for Discharge: 45 Diagnoses Lower extremity weakness R29.898 Hyperlipidemia E78.5 Hyperlipidemia type: unspecified Right foot drop M21.371 Diabetic peripheral neuropathy associated with type 2 diabetes mellitus E11.42 Sacroiliitis M46.1 Lumbar foraminal stenosis M48.061 Benign essential hypertension with target blood pressure below 140/90 I10 CHF exacerbation I50.43 Heart failure type: combined systolic and diastolic Atrial fibrillation I48.11 Atrial fibrillation type: longstanding persistent Fluid overload E87.70 BMI 40.0-44.9, adult Z68.41 Diabetes mellitus, type II E11.42; Z79.4 Diabetes mellitus [facility] with [facility] Diabetes mellitus complication status: with neurologic complications Diabetes mellitus complication detail: with polyneuropathy Bilateral edema of lower extremity R60.0
--- NOTE | 2022-10-09 12:33 | PC.SOCIAL ---
IMM Update pg 2 of IMM updated and reviewed w/ patient. Copy provided and copy dated, initialed and placed in chart.
[2022-10-09 12:45] VITALS: RESP 18
[2022-10-09] MEDS: morphine 4 mg/mL SDV 1 mL 2 MG IVP (12:45)
[2022-10-09 13:36] VITALS: BP 175/79; PULSE 60; RESP 18; TEMP 36.8; O2SAT 94
[2022-10-09 15:59] LABS: ANA SCREEN, IFA NEGATIVE (NEGATIVE)
[2022-10-10 13:49] LABS: THYROID PEROXIDASE ANTIBODIES <1 IU/mL (<9)
[2022-10-12 01:24] LABS: DNA AB (DS) CRITHIDIA,IFA NEGATIVE (NEGATIVE)
[2022-10-12 15:51] LABS: E. Chaffeensis AB IGG <1:64; E. Chaffeensis AB IGM <1:20
[2022-10-12 17:59] LABS: Vitamin B1 (Thiamine),Blood 254 nmol/L (78-185)
[2022-10-13 17:15] LABS: RMSF IGG DETECTED; RMSF IGM NOT DETECTED
[2022-10-15 19:00] LABS: Ganglioside GD1b Antibody IgG <1:100 titer (<1:100); Ganglioside GD1b Antibody IgM <1:800 titer (< OR = 1:800)
[2022-10-16 16:15] LABS: Ganglioside GM-1 Antibody IgG <1:800 titer (<1:800)
== END 2022-10-09 13:38 | disposition skilled nursing facility (03) | DRG 291 ==
LOC: ER 11:00 → MEDSURG 16:11
PROVIDERS: Admitting Provider Family Medicine; Emergency Provider Family Medicine; PCP Family Medicine; Visit Provider Family Medicine
DX: I13.0 Hypertensive heart and chronic kidney disease with heart failure and stage 1 through stage 4 chronic kidney disease, or unspecified chronic kidney disease (principal); I50.43 Acute on chronic combined systolic (congestive) and diastolic (congestive) heart failure; I48.11 Longstanding persistent atrial fibrillation; I69.951 Hemiplegia and hemiparesis following unspecified cerebrovascular disease affecting right dominant side; Z68.41 Body mass index [BMI] 40.0-44.9, adult; N39.0 Urinary tract infection, site not specified; N18.9 Chronic kidney disease, unspecified; E11.22 Type 2 diabetes mellitus with diabetic chronic kidney disease; M48.062 Spinal stenosis, lumbar region with neurogenic claudication; I25.10 Atherosclerotic heart disease of native coronary artery without angina pectoris; E11.51 Type 2 diabetes mellitus with diabetic peripheral angiopathy without gangrene; E11.42 Type 2 diabetes mellitus with diabetic polyneuropathy; M10.9 Gout, unspecified; G89.29 Other chronic pain; R32 Unspecified urinary incontinence; R15.9 Full incontinence of feces; M21.371 Foot drop, right foot; Z79.01 Long term (current) use of anticoagulants; M25.562 Pain in left knee; M25.561 Pain in right knee; G47.33 Obstructive sleep apnea (adult) (pediatric); Z85.828 Personal history of other malignant neoplasm of skin; Z95.0 Presence of cardiac pacemaker; M43.16 Spondylolisthesis, lumbar region; M51.37 Other intervertebral disc degeneration, lumbosacral region; E66.9 Obesity, unspecified; M46.1 Sacroiliitis, not elsewhere classified; E78.5 Hyperlipidemia, unspecified; F10.11 Alcohol abuse, in remission; F17.210 Nicotine dependence, cigarettes, uncomplicated; F17.220 Nicotine dependence, chewing tobacco, uncomplicated
CPT/HCPCS: 36415; 36416; 71045; 72131; 73562; 74176; 80053; 80306; 80307; 81001; 82607; 82746; 82962; 83036; 83520; 83605; 83735; 83880; 84100; 84145; 84425; 84443; 84484; 85025; 85651; 86140; 86160; 86162; 86235; 86255; 86376; 86618; 86666; 86757; 87040; 87426; 87486; 87581; 87633; 87806; 93005; 93970; 94664; 96365; 96372; 96375; 97110; 97161; 97166; 97530; 99285; 99291; C9113; J0696; J1100; J1815; J1885; J2270; J3490; J7512

== ENCOUNTER → 2022-10-28 15:05 | Outpatient (BNVA) | payer OTHER, SELFPAY | PROVIDERS: PCP Family Medicine; Visit Provider Physician Assistant | DX: M48.062 Spinal stenosis, lumbar region with neurogenic claudication; M51.36 Other intervertebral disc degeneration, lumbar region | CPT/HCPCS: 72100; 99213 ==

== ENCOUNTER → 2022-10-29 12:55 | Outpatient (BNVA) | payer OTHER, SELFPAY | PROVIDERS: PCP Family Medicine; Visit Provider Podiatrist Foot & Ankle Surgery | DX: I73.9 Peripheral vascular disease, unspecified (principal); E11.42 Type 2 diabetes mellitus with diabetic polyneuropathy; M21.41 Flat foot [pes planus] (acquired), right foot; M21.42 Flat foot [pes planus] (acquired), left foot; E11.621 Type 2 diabetes mellitus with foot ulcer; I87.2 Venous insufficiency (chronic) (peripheral); L97.819 Non-pressure chronic ulcer of other part of right lower leg with unspecified severity; L97.829 Non-pressure chronic ulcer of other part of left lower leg with unspecified severity; Z79.84 Long term (current) use of oral hypoglycemic drugs | CPT/HCPCS: 99214 ==

== ENCOUNTER → 2022-11-26 13:42 | Outpatient (BNVA) | payer OTHER, SELFPAY | PROVIDERS: Visit Provider Podiatrist Foot & Ankle Surgery | DX: I73.9 Peripheral vascular disease, unspecified (principal); E11.42 Type 2 diabetes mellitus with diabetic polyneuropathy; M21.41 Flat foot [pes planus] (acquired), right foot; M21.42 Flat foot [pes planus] (acquired), left foot; I87.2 Venous insufficiency (chronic) (peripheral); Z79.84 Long term (current) use of oral hypoglycemic drugs | CPT/HCPCS: 99214 ==

== ENCOUNTER 2022-12-19 12:22 | Emergency (ER) | payer OTHER, SELFPAY ==
[2022-12-19 12:36] VITALS: BP 143/88; PULSE 91; RESP 16; TEMP 36.8; O2SAT 96; BMI 41.0
[2022-12-19 12:51] VITALS: BP 143/88; PULSE 103; RESP 18; O2SAT 97
--- NOTE | 2022-12-19 12:52 | ED_ITS ---
HPI - Weakness General: Chief complaint: Weakness Stated complaint: weakness Time Seen by Provider: 12/19/22 12:35 History of Present Illness: 72-year-old male reports has been sick for the last 3 days. Patient has somebody that comes to his house to help out with light chores and cooking. He says that she was sick with sniffling, coughing, and not feeling well. Shortly after his exposure he started to feel unwell. He reports his symptoms include headache, runny nose, diarrhea, fatigue, decreased appetite, chills alternating with sweats, and generalized weak feeling. Associated symptoms: Reports chills and fever(s) (Subjective fever); Denies chest pain, dysuria, headache(s), nausea, syncope or vomiting Review of Systems General: Reports: 10 or more systems reviewed and unremarkable except in HPI and below Const: Reports: fever(s) (Subjective fever), chills, body aches, change in appetite, fatigue and malaise Eyes: Denies: change in vision ENMT: Reports: other (Runny nose); Denies: throat pain Card: Denies: chest pain, edema or syncope Resp: Denies: dyspnea, productive cough, non-productive cough, wheezing, pain on inspiration, hemoptysis or chest congestion GI: Reports: diarrhea; Denies: abdominal pain, nausea or vomiting : Denies: flank pain, dysuria or urinary frequency Musc: Reports: other (Mild myalgias) Skin/Breast: Denies: rash or erythema Neuro: Denies: headache(s), numbness in extremities, weakness in extremities, lack of coordination or difficulty walking PFS ED PFSH: Medical History Abnormal nuclear stress test Accelerated hypertension Acute kidney injury Acute on chronic diastolic (congestive) heart failure Atrial fibrillation Chronic, history of bradycardia with beta blockers, on eliquis Atrial fibrillation Atrial fibrillation Bilateral lower leg cellulitis BMI 40.0-44.9, adult BPH NOS w/o ur obs/LUTS Bradycardia Calculus of proximal ureter CHF exacerbation Chronic anticoagulation eliquis Chronic diastolic heart failure Chronic kidney disease CKD (chronic kidney disease) Congestive heart failure Constipation Coronary artery disease Evaluated in [place], patient reports 55% narrowing unknown vessel no stent or angioplasty done CVA (cerebral vascular accident) residual right weakness Diabetes mellitus, type II Diabetic neuropathy associated with type 2 diabetes mellitus Gout attack Hyperkalemia Hyperlipidemia Hypertension Hypokalemia Ischemic toe ulcer Lumbar foraminal stenosis Nicotine dependence, chewing tobacco, with other nicotine-induced disorders Obesity BMI-42 kg/m2 Obstructive sleep apnea not on treatment by choice Osteoarthritis PAD (peripheral artery disease) Peripheral arterial disease Pes planus of both feet Physical deconditioning PVD (peripheral vascular disease) Renal calculus, right Rhabdomyolysis Squamous cell carcinoma in situ Swelling of right upper extremity Temporary transvenous cardiac pacemaker present Surgical History Hx of colonoscopy with polypectomy No pertinent past surgical history Status post cardiac pacemaker procedure Family History Mother , 87 Diabetes CAD (coronary artery disease) Hypertension Father , 60 No problems noted. Social History Smoking and tobacco status: current every day smoker (chew tobacco) pipe Pipes smoked per week: 1 Years smoked pipe: 54 and smokeless tobacco Smokeless tobacco user: chewing tobacco Alcohol intake: former Year of sobriety/quit date alcohol: 26 y Former alcohol use details: heavy use, 5 DWI's Substance/Drug Use: former Household members: none Housing: House Marital status: service: Yes Current occupational status: retired Physical Exam Const: COMMON NORMALS: no limitations, alert and well nourished EXAM LI MITATIONS: no altered mental status HENMT: COMMON NORMALS: normocephalic, atraumatic and external ears normal HEAD & SCALP: normocephalic and atraumatic EXTERNAL EAR: Yes external ears normal MOUTH: no muffled voice Eye: COMMON NORMALS: EOMs intact bilaterally, conjunctivae normal and no scleral icterus CONJUNCTIVA: Yes conjunctivae normal Neck/C-Spine: COMMON NORMALS: no JVD GENERAL: Yes normal visual inspection and Yes trachea midline Resp: COMMON NORMALS: normal respiratory effort, No use of accessory muscles and clear to auscultation bilaterally AUSCULTATION: clear to auscultation bilaterally Cardio: COMMON NORMALS: no JVD and regular rate (Rate variable from 80s to 105); negative for regular rhythm RATE: regular rate (Rate variable from 80s to 105) RHYTHM: abnormal rhythm GI: COMMON NORMALS: Soft to palpation and non-tender PALPATION: Yes Soft to palpation and No Guarding due to palpation present (GI) Extremity: COMMON NORMALS: normal to inspection Neuro: COMMON NORMALS: moves all extremities, no focal motor deficits and no sensory deficits noted SENSORIUM/ORIENTATION: Yes alert SPEECH: speech normal Psych: COMMON NORMALS: mental status grossly normal, Normal thought process present, cooperative, normal affect and speech normal SPEECH: Yes normal speech THOUGHT PROCESS: Normal thought process present Skin: COMMON NORMALS: no rashes or lesions noted, turgor normal and no jaundice GENERAL SKIN EXAM: no rashes or lesions noted and turgor normal Course Vital Signs: Vital signs: Vital Signs Temperature 98.2 F 12/19/22 12:36 Pulse Rate 96 12/19/22 14:47 Respiratory Rate 17 12/19/22 14:47 Blood Pressure 143/88 12/19/22 14:47 Pulse Oximetry 97 12/19/22 14:47 Oxygen Delivery Me thod Room Air 12/19/22 12:36 MDM - Weakness Medical Decision Making Patient presents stating he thinks he has the flu. He certainly has flulike symptoms. He has atrial fibrillation on examination confirmed on telemetry. This is chronic for him and he is anticoagulated and medicated for it. He does not have a fever on arrival. He denies using antipyretics today. He has not taken anything [id number] for symptoms at this time. Patient did asked me to look at a lesion on his buttock. He has a small fissure on his right inner buttock. 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 It does not appear infected. It is not tunneling. It does not appear to be a fistula. Patient did want to be tested for flu and COVID. He is nontoxic in appearance. Given his comorbidities I agreed to do CBC and CMP. He does not want Tylenol as he says he does not feel good usually when he takes it. His lungs are clear, he is not coughing, no wheezing, and he is 96% on room air. No indication for chest x-ray at this time Update COVID and flu antigens negative. Labs unremarkable. Chronic CKD. No other concerns. Patient reexamined. He is nontoxic with normal vital signs (other than mild hypertension). Patient will be discharged home with supportive care recommendations and return precautions. Lab Data 12/19/22 12:37 12/19/22 12:37 Laboratory Results WBC 10.36 10^3/uL (3.29-11.43) 12/19/22 12:37 RBC 5.62 10^6/uL (3.85-5.65) 12/19/22 12:37 Hgb 16.00 g/dL (11.27-16.99) 12/19/22 12:37 Hct 48.6 % (37-53) 12/19/22 12:37 MCV 86.5 fl (82-101) 12/19/22 12:37 MCH 28.5 pg (27-33) 12/19/22 12:37 MCHC 32.9 g/dL (30-55) 12/19/22 12:37 RDW 14.6 % (12.1-15.1) 12/19/22 12:37 Plt Count 159 10^3/cmm (157-399) 12/19/22 12:37 MPV 11.1 fL (7.4-10.4) H 12/19/22 12:37 Neut % (Auto) 76.5 % 12/19/22 12:37 Lymph % (Auto) 16.5 % 12/19/22 12:37 [place] % (Auto) 5.6 % 12/19/22 12:37 Eos % (Auto) 0.7 % 12/19/22 12:37 Baso % (Auto) 0.4 % 12/19/22 12:37 Neut # (Auto) 7.93 10^3/uL (1.8-7.7) H 12/19/22 12:37 Lymph # (Auto) 1.7 10^3/uL (0.8-4.8) 12/19/22 12:37 [place] # (Auto) 0.6 10^3/uL (0.2-0.9) 12/19/22 12:37 Eos # (Auto) 0.1 10^3/uL (0.0-0.8) 12/19/22 12:37 Baso # (Auto) 0.0 10^3/uL (0.0-0.1) 12/19/22 12:37 Nucleated RBC % (auto) 0 % 12/19/22 12:37 Nucleated RBCs # 0.0 /100WBC 12/19/22 12:37 Sodium 143 mmol/L (136-145) 12/19/22 12:37 Potassium 3.8 mmol/L (3.5-5.1) 12/19/22 12:37 Chloride 104 mmol/L (98-107) 12/19/22 12:37 Carbon Dioxide 26 mmol/L (22-29) 12/19/22 12:37 Anion Gap 16.8 (5-19) 12/19/22 12:37 BUN 15 mg/dL (8-23) 12/19/22 12:37 Creatinine 1.3 mg/dL (0.7-1.2) H 12/19/22 12:37 GFR Calculation Not Reportable 12/19/22 12:37 Glucose 136 mg/dL (65-115) H 12/19/22 12:37 Calculated Osmolality 299 mOsm/kg (285-295) H 12/19/22 12:37 Calcium 9.3 mg/dL (8.5-10.5) 12/19/22 12:37 Total Bilirubin 0.7 mg/dL (0.15-1.2) 12/19/22 12:37 AST 21 U/L (0-40) 12/19/22 12:37 ALT 11 U/L (0-41) 12/19/22 12:37 Alkaline Phosphatase 97 U/L (40-130) 12/19/22 12:37 Total Protein 6.7 g/dL (6.6-8.7) 12/19/22 12:37 Albumin 4.3 g/dL (3.5-5.2) 12/19/22 12:37 Globulin 2.4 g/dL (1.3-4.6) 12/19/22 12:37 Influenza Type A Ag negative (Negative) 12/19/22 12:37 Influenza Type B Ag negative (Negative) 12/19/22 12:37 SARS-CoV-2 Ag (Rapid) negative (Negative) 12/19/22 12:37 No radiology studies performed this visit Discharge Plan Discharge Patient Disposition: Home Clinical Impression: Flu-like symptoms, Atrial fibrillation Condition: Stable Prescriptions: No Action (DME) ottobock afo to right See Rx Instructions .Route .MEDSUPPLY Qty: 1 0RF Rx Instructions: As directed by [employer] (DME) Diabetic Shoes with 3 pairs of inserts See Rx Instructions .ROUTE .MEDSUPPLY Qty: 1 0RF Rx Instructions: As directed by [employer] (DME) Silver Alginate Dressing and 2 Layer Compression System Wraps See Rx Instructions .Route .MEDSUPPLY Qty: 1 0RF Rx Instructions: Dressing supplies needed for 30 days with 3 Refills (DME) 2 Layer Compression Bandage System- Coflex TLC LITE Calamine with Indicators 4 in x6 yard/4 in by 7 yard See Rx Instructions .Route .MEDSUPPLY Qty: 1 0RF Rx Instructions: 32 boxes needed for 3 months Compression 20 to 30 mmHg- Ref. # [id number] tamsulosin 0.4 mg capsule 0.4 mg PO BEDTIME 30 Days Qty: 30 0RF finasteride 5 mg tablet 5 mg PO DAILY 30 Days Qty: 30 0RF Eliquis 5 mg tablet 5 mg PO BID 30 Days Qty: 60 0RF bumetanide 2 mg Tablet 2 mg PO DAILY prazosin 1 mg Capsule 1 mg PO QPM thiamine HCl (vitamin B1) 100 mg Tablet 100 mg PO DAILY allopurinol 300 mg Tablet 300 mg PO DAILY hydrochlorothiazide 25 mg Tablet 25 mg PO DAILY Miralax 17 gram/dose Powder 4 g PO DAILY lisinopril 40 mg Tablet 40 mg PO DAILY rosuvastatin 10 mg Tablet 10 mg PO QPM duloxetine 30 mg Capsule,Delayed Release(Dr/Ec) 30 mg PO DAILY zinc oxide 40 % Ointment 1 applic TOPICAL DAILY empagliflozin 25 mg Tablet 25 mg PO DAILY semaglutide 1 mg/dose (2 mg/1.5 mL) Pen Injector 1 mg SUBCUT Q7D magnesium oxide 400 mg magnesium Tablet 400 mg PO DAILY insulin glargine 100 unit/mL (3 mL) insulin pen 50 unit SUBCUT BEDTIME pentoxifylline 400 mg Tablet Extended Release 400 mg PO DAILY pregabalin [Lyrica] 300 mg Capsule 300 mg PO BID potassium chloride 20 mEq Tablet Extended Release 40 meq PO DAILY Qty: 60 0RF Discharge Orders: Discharge ED (Routine); Ordered 12/19/22 Ordered By: Edin Webb Activity Restrictions/Additional Instructions: Today you have been diagnosed with: flu-like illness, which are typically caused by viruses. Rest Drink at least 72 oz of fluid daily. Continue checking and treating your blood sugar. Take over the counter tylenol for chills/sweats. It is very important that you follow up with a Doctor as discussed during your visit today, the information to contact your doctor is included in your discharge instructions. Failure to adhere to your follow up instructions may lead to severe disability, injury, or so please make sure to keep your appointments. Please return to the Emergency Department immediately and without fail if you experience any new, worsening, or concerning problems such as:passing out, decreased urine output, chest pain, shortness of breath, headache or body pain, fever, lightheadedness, weakness, numbness, or any other concerning symptoms. Thank you for allowing us to participate in your care today. Coding Level of Care Code ED Greenhouse Technician for Yris Tee
[2022-12-19 13:05] LABS: Basophils % 0.4 %; Eosinophils # 0.1 10^3/uL (0.0-0.8); Eosinophils % 0.7 %; Hematocrit 48.6 % (37-53); Lymphocytes # 1.7 10^3/uL (0.8-4.8); Lymphocytes % 16.5 %; Mean Corpuscular HGB Conc 32.9 g/dL (30-55); Mean Corpuscular Hemoglobin 28.5 pg (27-33); Mean Corpuscular Volume 86.5 fl (82-101); Mean Platelet Volume 11.1 fL (7.4-10.4); Monocytes # 0.6 10^3/uL (0.2-0.9); Monocytes % 5.6 %; Neutrophils # 7.93 10^3/uL (1.8-7.7); Neutrophils % 76.5 %; Nucleated Red Blood Cells % 0 %; Platelet Count 159 10^3/cmm (157-399); Red Blood Count 5.62 10^6/uL (3.85-5.65); Red Cell Distribution Width 14.6 % (12.1-15.1); White Blood Count 10.36 10^3/uL (3.29-11.43)
[2022-12-19] MEDS: sodium chloride 0.9% 500 ML IV (13:15)
[2022-12-19 13:18] LABS: Alanine Aminotransferase 11 U/L (0-41); Albumin Level 4.3 g/dL (3.5-5.2); Alkaline Phosphatase 97 U/L (40-130); Blood Urea Nitrogen 15 mg/dL (8-23); Calcium 9.3 mg/dL (8.5-10.5); Carbon Dioxide 26 mmol/L (22-29); Chloride 104 mmol/L (98-107); Globulin 2.4 g/dL (1.3-4.6); Glucose 136 mg/dL (65-115); Influenza A by IFA negative (Negative); Influenza B by IFA negative (Negative); Osmolality Calculated 299 mOsm/kg (285-295); SARS Covid-2 Antigen negative (Negative); Sodium 143 mmol/L (136-145); Total Bilirubin 0.7 mg/dL (0.15-1.2); Total Protein 6.7 g/dL (6.6-8.7)
[2022-12-19 13:19] LABS: Anion Gap 16.8 (5-19); Aspartate Amino Transferase 21 U/L (0-40); Potassium 3.8 mmol/L (3.5-5.1)
--- NOTE | 2022-12-19 13:29 | PC.PHAR ---
[facility] 12/19/22 1:25PM
[2022-12-19 14:47] VITALS: BP 143/88; PULSE 96; RESP 17; O2SAT 97
== END 2022-12-19 15:00 | disposition home or self-care (01) ==
PROVIDERS: Emergency Provider Emergency Medicine
DX: I48.91 Unspecified atrial fibrillation (principal); Z79.4 Long term (current) use of insulin; Z79.01 Long term (current) use of anticoagulants; Z20.822 Contact with and (suspected) exposure to COVID-19; F17.220 Nicotine dependence, chewing tobacco, uncomplicated; F17.290 Nicotine dependence, other tobacco product, uncomplicated; E11.22 Type 2 diabetes mellitus with diabetic chronic kidney disease; I13.0 Hypertensive heart and chronic kidney disease with heart failure and stage 1 through stage 4 chronic kidney disease, or unspecified chronic kidney disease; N18.9 Chronic kidney disease, unspecified; I50.33 Acute on chronic diastolic (congestive) heart failure; I25.10 Atherosclerotic heart disease of native coronary artery without angina pectoris; Z86.73 Personal history of transient ischemic attack (TIA), and cerebral infarction without residual deficits; E78.5 Hyperlipidemia, unspecified; Z95.0 Presence of cardiac pacemaker; R51.9 Headache, unspecified; R09.89 Other specified symptoms and signs involving the circulatory and respiratory systems; R19.7 Diarrhea, unspecified
CPT/HCPCS: 80053; 85025; 87426; 87804; 99284; J7040

== ENCOUNTER → 2022-12-24 16:43 | Outpatient (BNVA) | payer OTHER, MEDICARE, SELFPAY | PROVIDERS: Visit Provider Internal Medicine Cardiovascular Disease | DX: Z45.010 Encounter for checking and testing of cardiac pacemaker pulse generator [battery] (principal) | CPT/HCPCS: 93296 ==

== ENCOUNTER → 2023-01-21 12:37 | Outpatient (BNVA) | payer OTHER, MEDICARE, SELFPAY | PROVIDERS: Visit Provider Podiatrist Foot & Ankle Surgery | DX: I87.2 Venous insufficiency (chronic) (peripheral) (principal); M21.41 Flat foot [pes planus] (acquired), right foot; M21.42 Flat foot [pes planus] (acquired), left foot; E11.42 Type 2 diabetes mellitus with diabetic polyneuropathy; I73.9 Peripheral vascular disease, unspecified; Z79.4 Long term (current) use of insulin | CPT/HCPCS: 99213 ==

== ENCOUNTER 2023-02-20 13:47 | Inpatient (IN) | payer OTHER, SELFPAY ==
--- NOTE | 2023-02-20 13:59 | ED_ITS ---
HPI - General Adult General: Stated complaint: weakness, knee pain Time Seen by Provider: 02/20/23 13:49 Source: patient Mode of arrival: ambulatory History of Present Illness: 73-year-old male lives at home alone states that couple of days ago he fell off of his walker seat while reaching up for something to eat. He lives at home alone he feels like he cannot get around anymore. He is wondering if he may be needs to go to the skilled nursing. He states since he fell he landed on his buttocks and his back and his legs hurt. He has not had any urinary retention or fecal incontinence. Denies any fever sweats or chills denies any chest pain or abdominal pain. Location: back Radiation: extremity (Lower extremities) Quality: sharp Pain Consistency: constant Relieving factors: none Exacerbating factors: none Associated symptoms: Deny chest pain, confusion, cough, diaphoresis, decreased appetite, dyspnea, fevers/chills, headache(s), malaise, nausea, rash, palpitations, seizures, short of breath, syncope, vomiting or weakness Review of Systems Const: Denies: fever(s), chills, malaise or diaphoresis Card: Denies: chest pain, palpitations or syncope Resp: Denies: dyspnea GI: Denies: abdominal pain, nausea or vomiting : Denies: dysuria, urinary frequency or urinary urgency Musc: Denies: neck pain or back pain Skin/Breast: Denies: rash Neuro: Denies: headache(s) or confusion PFSH ED PFSH: Medical History Abnormal nuclear stress test Accelerated hypertension Acute kidney injury Acute on chronic diastolic (congestive) heart failure Atrial fibrillation Chronic, history of bradycardia with beta blockers, on eliquis Atrial fibrillation Atrial fibrillation Bilateral lower leg cellulitis BMI 40.0-44.9, adult BPH NOS w/o ur obs/LUTS Bradycardia Calculus of proximal ureter CHF exacerbation Chronic anticoagulation eliquis Chronic diastolic heart failure Chronic kidney disease CKD (chronic kidney disease) Congestive heart failure Constipation Coronary artery disease Evaluated in [place], patient reports 55% narrowing unknown vessel no stent or angioplasty done CVA (cerebral vascular accident) residual right weakness Diabetes mellitus, type II Diabetic neuropathy associated with type 2 diabetes mellitus Gout attack Hyperkalemia Hyperlipidemia Hypertension Hypokalemia Ischemic toe ulcer Lumbar foraminal stenosis Nicotine dependence, chewing tobacco, with other nicotine-induced disorders Obesity BMI-42 kg/m2 Obstructive sleep apnea not on treatment by choice Osteoarthritis PAD (peripheral artery disease) Peripheral arterial disease Pes planus of both feet Physical deconditioning PVD (peripheral vascular disease) Renal calculus, right Rhabdomyolysis Squamous cell carcinoma in situ Swelling of right upper extremity Temporary transvenous cardiac pacemaker present Surgical History Hx of colonoscopy with polypectomy No pertinent past surgical history Status post cardiac pacemaker procedure Family History Mother , 87 Diabetes CAD (coronary artery disease) Hypertension Father , 60 No problems noted. Social History Smoking and tobacco/nicotine status: current every day tobacco/nicotine user (chew tobacco) pipe Pipes smoked per week: 1 Years smoked pipe: 54 and smokeless tobacco Smokeless tobacco user: chewing tobacco Alcohol intake: former Year of sobriety/quit date alcohol: 26 y Former alcohol use details: heavy use, 5 DWI's Substance/Drug Use: former Household members: none Housing: House Marital status: service: Yes Current occupational status: retired Physical Exam Const: COMMON NORMALS: no acute distress GENERAL APPEARANCE: cooperative and comfortable ORIENTATION/CONSCIOUSNESS: Yes awake, Yes oriented to person, Yes oriented to place and Yes oriented to time HENMT: COMMON NORMALS: normocephalic, atraumatic and hearing grossly normal bilaterally HEAD & SCALP: normocephalic and atraumatic Resp: COMMON NORMALS: normal respiratory effort, No retractions, No use of accessory muscles and clear to auscultation bilaterally AUSCULTATION: clear to auscultation bilaterally Cardio: COMMON NORMALS: regular rate, regular rhythm and No murmurs present (Cardio) RATE: regular rate RHYTHM: regular rhythm GI: COMMON NORMALS: Soft to palpation and No hepatosplenomegaly present AUSCULTATION: Yes normoactive bowel sounds PALPATION: Yes Soft to palpation, No Tenderness to palpation present (GI), No Guarding due to palpation present (GI) and Yes No hepatosplenomegaly present Extremity: COMMON NORMALS: normal to inspection, capillary refill normal, no clubbing, cyanosis or edema, no calf tenderness and no pedal edema Neuro: SENSORIUM/ORIENTATION: Yes oriented to person, Yes oriented to place and Yes oriented to time Skin: COMMON NORMALS: no rashes or lesions noted GENERAL SKIN EXAM: no rashes or lesions noted Course Vital Signs: Vital signs: Vital Signs Respiratory Rate 18 02/20/23 15:24 MDM - General Adult Medical Decision Making Mild acute kidney injury. Patient has known lumbar stenosis is likely have repeated falls imaging today does not show any acute fractures he did mention going to nursing which is probably an excellent idea in his particular case. Discussed with the hospitalist will place him on nobs correct his acute kidney injury and look for placement. Medical Records I reviewed the patient's medical records. Lab Data I reviewed the patient's lab results. 02/20/23 14:33 02/20/23 14:33 Radiology Impressions Lumbar Spine CT 02/20/23 14:23 IMPRESSION: No acute findings. Pelvis X-Ray 02/20/23 14:24 IMPRESSION: No acute findings. Chest X-Ray 02/20/23 14:56 IMPRESSION: No acute findings. Laboratory Results WBC 17.76 10^3/uL (3.29-11.43) H 02/20/23 14:33 RBC 6.17 10^6/uL (3.85-5.65) H 02/20/23 14:33 Hgb 17.00 g/dL (11.27-16.99) H 02/20/23 14:33 Hct 53.2 % (37-53) H 02/20/23 14:33 MCV 86.2 fl (82-101) 02/20/23 14:33 MCH 27.6 pg (27-33) 02/20/23 14:33 MCHC 32.0 g/dL (30-55) 02/20/23 14:33 RDW 14.4 % (12.1-15.1) 02/20/23 14:33 Plt Count 155 10^3/cmm (157-399) L 02/20/23 14:33 MPV 11.5 fL (7.4-10.4) H 02/20/23 14:33 Neut % (Auto) 82.2 % 02/20/23 14:33 Lymph % (Auto) 10.5 % 02/20/23 14:33 Vance % (Auto) 6.6 % 02/20/23 14:33 Eos % (Auto) 0.0 % 02/20/23 14:33 Baso % (Auto) 0.1 % 02/20/23 14:33 Neut # (Auto) 14.59 10^3/uL (1.8-7.7) H 02/20/23 14:33 Lymph # (Auto) 1.9 10^3/uL (0.8-4.8) 02/20/23 14:33 Vance # (Auto) 1.2 10^3/uL (0.2-0.9) H 02/20/23 14:33 Eos # (Auto) 0.0 10^3/uL (0.0-0.8) 02/20/23 14:33 Baso # (Auto) 0.0 10^3/uL (0.0-0.1) 02/20/23 14:33 Nucleated RBC % (auto) 0 % 02/20/23 14:33 Nucleated RBCs # 0.0 /100WBC 02/20/23 14:33 Sodium 141 mmol/L (136-145) 02/20/23 14:33 Potassium 3.0 mmol/L (3.5-5.1) L 02/20/23 14:33 Chloride 93 mmol/L (98-107) L 02/20/23 14:33 Carbon Dioxide 31 mmol/L (22-29) H 02/20/23 14:33 Anion Gap 20.0 (5-19) H 02/20/23 14:33 BUN 42 mg/dL (8-23) H 02/20/23 14:33 Creatinine 2.7 mg/dL (0.7-1.2) H 02/20/23 14:33 GFR Calculation Not Reportable 02/20/23 14:33 Glucose 218 mg/dL (65-115) H 02/20/23 14:33 Calculated Osmolality 309 mOsm/kg (285-295) H 02/20/23 14:33 Calcium 9.7 mg/dL (8.5-10.5) 02/20/23 14:33 Total Bilirubin 1.9 mg/dL (0.15-1.2) H 02/20/23 14:33 AST 18 U/L (0-40) 02/20/23 14:33 ALT 9 U/L (0-41) 02/20/23 14:33 Alkaline Phosphatase 103 U/L (40-130) 02/20/23 14:33 Total Protein 7.2 g/dL (6.6-8.7) 02/20/23 14:33 Albumin 4.0 g/dL (3.5-5.2) 02/20/23 14:33 Globulin 3.2 g/dL (1.3-4.6) 02/20/23 14:33 Urine Color Yellow (Yellow) 02/20/23 14:50 Urine Appearance Clear (CLEAR) 02/20/23 14:50 Urine pH 5 (5-7) 02/20/23 14:50 Ur Specific [place] 1.010 (1.005-1.030) 02/20/23 14:50 Urine Protein Neg (Negative) 02/20/23 14:50 Urine Glucose (UA) 4+ (Normal) H 02/20/23 14:50 Urine Ketones 1+ (Negative) H 02/20/23 14:50 Urine Blood 2+ (Negative) H 02/20/23 14:50 Urine Nitrate Negative (Negative) 02/20/23 14:50 Urine Bilirubin Neg (Negative) 02/20/23 14:50 Urine Urobilinogen Norm mg/dL (Negative) 02/20/23 14:50 Ur Leukocyte Esterase Negative (Negative) 02/20/23 14:50 Urine RBC 5-10 /hpf (0-2) H 02/20/23 14:50 Urine WBC 0-4 /hpf (0-5) H 02/20/23 14:50 Ur Squamous Epith Cells 0-4 /hpf (0-5) H 02/20/23 14:50 Amorphous Sediment Not Reportable 02/20/23 14:50 Urine Bacteria Trace /hpf (NONE) 02/20/23 14:50 Hyaline Casts 0-4 /lpf H 02/20/23 14:50 Urine Yeast Trace /hpf 02/20/23 14:50 All radiology interpretation(s) finalized by discharge Discharge Plan Discharge Patient Disposition: Placed in Observation Clinical Impression: Acute kidney injury, Spinal stenosis, lumbar region, with neurogenic claudication, Atrial fibrillation Condition: Stable Prescriptions: No Action (DME) ottobock afo to right See Rx Instructions .Route .MEDSUPPLY Qty: 1 0RF Rx Instructions: As directed by [employer] (DME) Diabetic Shoes with 3 pairs of inserts See Rx Instructions .ROUTE .MEDSUPPLY Qty: 1 0RF Rx Instructions: As directed by [employer] (DME) Silver Alginate Dressing and 2 Layer Compression System Wraps See Rx Instructions .Route .MEDSUPPLY Qty: 1 0RF Rx Instructions: Dressing supplies needed for 30 days with 3 Refills (DME) 2 Layer Compression Bandage System- Coflex TLC LITE Calamine with Indicators 4 in x6 yard/4 in by 7 yard See Rx Instructions .Route .MEDSUPPLY Qty: 1 0RF Rx Instructions: 32 boxes needed for 3 months Compression 20 to 30 mmHg- Ref. # [id number] tamsulosin 0.4 mg capsule 0.4 mg PO BEDTIME 30 Days Qty: 30 0RF finasteride 5 mg tablet 5 mg PO DAILY 30 Days Qty: 30 0RF Eliquis 5 mg tablet 5 mg PO BID 30 Days Qty: 60 0RF bumetanide 2 mg Tablet 2 mg PO DAILY prazosin 1 mg Capsule 1 mg PO QPM thiamine HCl (vitamin B1) 100 mg Tablet 100 mg PO DAILY allopurinol 300 mg Tablet 300 mg PO DAILY hydrochlorothiazide 25 mg Tablet 25 mg PO DAILY Miralax 17 gram/dose Powder 4 g PO DAILY lisinopril 40 mg Tablet 40 mg PO DAILY rosuvastatin 10 mg Tablet 10 mg PO QPM duloxetine 30 mg Capsule,Delayed Release(Dr/Ec) 30 mg PO DAILY zinc oxide 40 % Ointment 1 applic TOPICAL DAILY empagliflozin 25 mg Tablet 25 mg PO DAILY semaglutide 1 mg/dose (2 mg/1.5 mL) Pen Injector 1 mg SUBCUT Q7D magnesium oxide 400 mg magnesium Tablet 400 mg PO DAILY insulin glargine 100 unit/mL (3 mL) insulin pen 50 unit SUBCUT BEDTIME pentoxifylline 400 mg Tablet Extended Release 400 mg PO DAILY pregabalin [Lyrica] 300 mg Capsule 300 mg PO BID potassium chloride 20 mEq Tablet Extended Release 40 meq PO DAILY Qty: 60 0RF Patient Instructions: Opioid Safety, Pain Management Coding Level of Care Code ED Residential Gas Heat Technician for Yris Tee
--- NOTE | 2023-02-20 14:23 | CTR_ITS ---
PROCEDURE INFORMATION: Exam: CT Lumbar Spine Without Contrast Exam date and time: 02/20/2023 3:03 PM Age: 73 years old Clinical indication: Injury or trauma; Fall TECHNIQUE: Imaging protocol: Computed tomography of the lumbar spine without contrast. Radiation optimization: All CT scans at this facility use at least one of these dose optimization techniques: automated exposure control; mA and/or kV adjustment per patient size (includes targeted exams where dose is matched to clinical indication); or iterative reconstruction. REPORTING DATA: Count of CT and Cardiac NM exams in prior 12 months: This patient has received 3 known CTs and 0 known cardiac nuclear medicine studies in the 12 months prior to the current study. COMPARISON: CT lumbar spine wo con* [id number] 10/06/2022 7:50 PM RADIATION DOSE METRICS: Total DLP (mGy-cm): 1443.3 FINDINGS: Bones/joints: No acute fracture. Normal alignment. No severe spinal canal stenosis. Soft tissues: Unremarkable. CT/CT lumbar spine wo con* [id number] IMPRESSION: No acute findings.
--- NOTE | 2023-02-20 14:24 | XRR_ITS ---
PROCEDURE INFORMATION: Exam: XR Pelvis Exam date and time: 02/20/2023 3:53 PM Age: 73 years old Clinical indication: Pelvic pain; Additional info: Trauma TECHNIQUE: Imaging protocol: Radiologic exam of the pelvis. Views: 1 or 2 view. COMPARISON: CT abdomen pelvis con [id number] 10/06/2022 11:59 AM FINDINGS: Bones/joints: Unremarkable. No acute fracture. Soft tissues: Unremarkable. XR/XR pelvis 1-2V* [id number] IMPRESSION: No acute findings.
[2023-02-20 14:48] LABS: Basophils % 0.1 %; Hematocrit 53.2 % (37-53); Lymphocytes # 1.9 10^3/uL (0.8-4.8); Lymphocytes % 10.5 %; Mean Corpuscular Hemoglobin 27.6 pg (27-33); Mean Corpuscular Volume 86.2 fl (82-101); Mean Platelet Volume 11.5 fL (7.4-10.4); Monocytes # 1.2 10^3/uL (0.2-0.9); Monocytes % 6.6 %; Neutrophils # 14.59 10^3/uL (1.8-7.7); Neutrophils % 82.2 %; Nucleated Red Blood Cells % 0 %; Platelet Count 155 10^3/cmm (157-399); Red Blood Count 6.17 10^6/uL (3.85-5.65); Red Cell Distribution Width 14.4 % (12.1-15.1); White Blood Count 17.76 10^3/uL (3.29-11.43)
--- NOTE | 2023-02-20 14:56 | XRR_ITS ---
PROCEDURE INFORMATION: Exam: XR Chest Exam date and time: 02/20/2023 3:08 PM Age: 73 years old Clinical indication: Cough; Additional info: Dyspnea/cough TECHNIQUE: Imaging protocol: Radiologic exam of the chest. Views: 1 view. COMPARISON: CR XR chest 1V portable [id number] 10/06/2022 9:47 AM FINDINGS: Tubes, catheters and devices: Pacer device noted in the left chest wall. Lungs: Unremarkable. No consolidation. Pleural spaces: Unremarkable. No pleural effusion. No pneumothorax. Heart/Mediastinum: Unremarkable. No cardiomegaly. Bones/joints: Unremarkable. XR/XR chest 1V portable [id number] IMPRESSION: No acute findings.
[2023-02-20 15:01] LABS: Alanine Aminotransferase 9 U/L (0-41); Alkaline Phosphatase 103 U/L (40-130); Aspartate Amino Transferase 18 U/L (0-40); Blood Urea Nitrogen 42 mg/dL (8-23); Calcium 9.7 mg/dL (8.5-10.5); Carbon Dioxide 31 mmol/L (22-29); Chloride 93 mmol/L (98-107); Globulin 3.2 g/dL (1.3-4.6); Glucose 218 mg/dL (65-115); Osmolality Calculated 309 mOsm/kg (285-295); Sodium 141 mmol/L (136-145); Total Bilirubin 1.9 mg/dL (0.15-1.2); Total Protein 7.2 g/dL (6.6-8.7)
[2023-02-20 15:24] VITALS: RESP 18
[2023-02-20] MEDS: morphine 4 mg/mL SDV 1 mL IVP (15:24)
[2023-02-20] MEDS: ondansetron 2 mg/ML SDV 2 mL 4 MG IVP (15:24)
[2023-02-20 15:26] LABS: Add Urine Microscopic? YES; Bilirubin Urine Neg (Negative); Blood Urine 2+ (Negative); Glucose Urine UA 4+ (Normal); Ketones Urine 1+ (Negative); Leukocyte Esterase Urine Negative (Negative); Nitrate Urine Negative (Negative); Protein Urine Neg (Negative); Squamous Epithelial Cell Urine 0-4 /hpf (0-5); Urine Appearance Clear (CLEAR); Urine Color Yellow (Yellow); Urobilinogen Urine Norm (Negative); WBC Urine 0-4 /hpf (0-5); pH Urine 5 (5-7)
[2023-02-20 15:27] LABS: Add Urine Culture? No; Bacteria Urine TRACE /hpf; Hyaline Casts Urine 0-4 /lpf
[2023-02-20] MEDS: sodium chloride 0.9% 1,000 ML 999 ML IV (15:30)
[2023-02-20 15:56] VITALS: BP 175/82; PULSE 69; RESP 16; TEMP 38; O2SAT 95
[2023-02-20 15:57] VITALS: BMI 47.5
--- NOTE | 2023-02-20 16:04 | PC.PHAR ---
[facility] IS CL[facility] FOR [facility]ID[facility]. MED REC WAS DONE OFF OF PT LIST. 02/20/23
--- NOTE | 2023-02-20 16:20 | USR_ITS ---
PROCEDURE INFORMATION: Exam: US Duplex Bilateral Lower Extremity Arteries Exam date and time: 02/20/2023 6:20 PM Age: 73 years old Clinical indication: Other: Bluish discoloration bilateral lower extremity; Additional info: Bluish discoloration bilateral lower extremituy TECHNIQUE: Imaging protocol: Real-time ultrasound scan of the arteries of the bilateral lower extremities with 2-D fernandes scale, color Doppler flow and spectral waveform analysis. Images documented and saved. COMPARISON: CT abdomen pelvis wo con [id number] 10/06/2022 11:59 AM FINDINGS: Right common femoral artery: No occlusion or significant stenosis. Monophasic waveform. Right superficial femoral artery: No occlusion or significant stenosis. Monophasic waveform. Right popliteal artery: No occlusion or significant stenosis. Monophasic waveform. Right calf/foot arteries: No occlusion or significant stenosis in the visualized arteries. Monophasic waveform. Dorsalis pedis artery is patent. Left common femoral artery: No occlusion or significant stenosis. Monophasic waveform. Left superficial femoral artery: No occlusion or significant stenosis. Monophasic waveform. Left popliteal artery: No occlusion or significant stenosis. Monophasic waveform. Left calf/foot arteries: No occlusion or significant stenosis in the visualized arteries. Monophasic waveform. Dorsalis pedis artery is patent. US/[place] [id number] IMPRESSION: No significant stenosis or occlusion.
--- NOTE | 2023-02-20 16:29 | PM.HP ---
Providers/Chief Complaint Primary Care Provider: Jessica Bui MD Chief Complaint: weakness, knee pain History of Present Illness Giles Guillaume is a 73 year old male with a past medical history of morbid obesity, insulin-dependent type 2 diabetes mellitus, atrial fibrillation on Eliquis, CAD, history of peripheral arterial disease, systolic CHF, history of gout, diabetic neuropathy, history of lumbar foraminal stenosis, chronic back pain, sacroiliitis, CKD, who presents to [facility] due to fall, generalized weakness, bilateral extremity weakness, low back pain. Patient has a history of L3 L5 disease with spinal canal stenosis, broad-based disc bulging, with neurogenic claudication, has seen orthopedic service as outpatient, currently on medical management, ambulates with a wheeled walker at home, has home health care, he tells me that he fell off his walker after trying to reach for something in the upper cupboards a few days ago, since then he has had lower back pain, difficulty with ambulation, denies any urinary incontinence, no bowel incontinence, saddle perianal anesthesia, no nausea, no vomiting, no chest pain, no palpitations no shortness of breath, his lower extremity edema he tells me he is quite minimal today, pain is primary in the lower back and does radiate from his lower back into the hips, down his legs, he tells me that its been difficult to ambulate over the last few days for his fall he denies any head trauma no loss of consciousness, Review of Systems Const: Denies: fever(s) Eyes: Denies: change in vision Card: Denies: chest pain Resp: Denies: dyspnea GI: Denies: abdominal pain : Denies: flank pain Musc: Reports: back pain and muscle weakness Neuro: Reports: weakness in extremities; Denies: headache(s) Medications/Allergies Home Medications Medication Instructions Recorded Confirmed Last Taken Type apixaban 5 mg tablet (Eliquis) 5 mg PO BID 30 days #60 tabs 07/04/21 02/20/23 06/25/21 Rx finasteride 5 mg tablet 5 mg PO DAILY 30 days #30 tabs 07/04/21 02/20/23 10/31/19 Rx tamsulosin 0.4 mg capsule 0.4 mg PO BEDTIME 30 days #30 caps 07/04/21 02/20/23 06/24/21 Rx [place] afo to right #1 ea 08/05/21 02/20/23 Unknown Rx Diabetic Shoes with 3 pairs of #1 ea 06/18/22 02/20/23 Unknown Rx inserts Silver Alginate Dressing and 2 #1 ea 08/06/22 02/20/23 Unknown Rx Layer Compression System Wraps pentoxifylline 400 mg 400 mg PO DAILY 08/14/22 02/20/23 02/20/23 History tablet,extended release pregabalin 300 mg capsule (Lyrica) 300 mg PO BID 08/14/22 02/20/23 Unknown History potassium chloride 20 mEq 40 meq PO DAILY #60 tabs 08/16/22 02/20/23 Unknown Rx tablet,extended release allopurinol 300 mg tablet 300 mg PO DAILY 12/19/22 02/20/23 Unknown History bumetanide 2 mg tablet 2 mg PO DAILY 12/19/22 02/20/23 Unknown History duloxetine 30 mg capsule,delayed 30 mg PO DAILY 12/19/22 02/20/23 Unknown History release empagliflozin 25 mg tablet 25 mg PO DAILY 12/19/22 02/20/23 Unknown History hydrochlorothiazide 25 mg tablet 25 mg PO DAILY 12/19/22 02/20/23 Unknown History insulin glargine 100 unit/mL (3 50 unit SUBCUT BEDTIME 12/19/22 02/20/23 Unknown History mL) subcutaneous pen lisinopril 40 mg tablet 40 mg PO DAILY 12/19/22 02/20/23 Unknown History magnesium oxide 400 mg PO DAILY 12/19/22 02/20/23 Unknown History polyethylene glycol 3350 17 4 g PO DAILY 12/19/22 02/20/23 Unknown History gram/dose oral powder (Miralax) prazosin 1 mg capsule 1 mg PO QPM 12/19/22 02/20/23 Unknown History rosuvastatin 10 mg tablet 10 mg PO QPM 12/19/22 02/20/23 Unknown History semaglutide 1 mg/dose (2 mg/1.5 1 mg SUBCUT Q7D 12/19/22 02/20/23 Unknown History mL) subcutaneous pen injector thiamine HCl (vitamin B1) 100 mg 100 mg PO DAILY 12/19/22 02/20/23 Unknown History tablet zinc oxide 40 % topical ointment 1 applic topical DAILY 12/19/22 02/20/23 Unknown History 2 Layer Compression Bandage #1 ea 01/22/23 02/20/23 Unknown Rx System- Coflex TLC LITE Calamine with Indicators 4 in x6 yard/4 in by 7 yard Allergies Allergy/AdvReac Type Severity Reaction Status Date / Time aspirin Allergy ALGY-Anaphy Verified 01/21/23 13:20 laxis carvedilol AdvReac diarrhea Verified 01/21/23 13:20 hydralazine AdvReac vomiting Verified 01/21/23 13:20 PFSH Acute PFSH: Medical History Abnormal nuclear stress test Accelerated hypertension Acute kidney injury Acute on chronic diastolic (congestive) heart failure Atrial fibrillation Chronic, history of bradycardia with beta blockers, on eliquis Atrial fibrillation Atrial fibrillation Bilateral lower leg cellulitis BMI 40.0-44.9, adult BPH NOS w/o ur obs/LUTS Bradycardia Calculus of proximal ureter CHF exacerbation Chronic anticoagulation eliquis Chronic diastolic heart failure Chronic kidney disease CKD (chronic kidney disease) Congestive heart failure Constipation Coronary artery disease Evaluated in [place], patient reports 55% narrowing unknown vessel no stent or angioplasty done CVA (cerebral vascular accident) residual right weakness Diabetes mellitus, type II Diabetic neuropathy associated with type 2 diabetes mellitus Gout attack Hyperkalemia Hyperlipidemia Hypertension Hypokalemia Ischemic toe ulcer Lumbar foraminal stenosis Nicotine dependence, chewing tobacco, with other nicotine-induced disorders Obesity BMI-42 kg/m2 Obstructive sleep apnea not on treatment by choice Osteoarthritis PAD (peripheral artery disease) Peripheral arterial disease Pes planus of both feet Physical deconditioning PVD (peripheral vascular disease) Renal calculus, right Rhabdomyolysis Squamous cell carcinoma in situ Swelling of right upper extremity Temporary transvenous cardiac pacemaker present Surgical History Hx of colonoscopy with polypectomy No pertinent past surgical history Status post cardiac pacemaker procedure Family History Mother , 87 Diabetes CAD (coronary artery disease) Hypertension Father , 60 No problems noted. Social History Smoking and tobacco/nicotine status: current every day tobacco/nicotine user (chew tobacco) pipe Pipes smoked per week: 1 Years smoked pipe: 54 and smokeless tobacco Smokeless tobacco user: chewing tobacco Alcohol intake: former Year of sobriety/quit date alcohol: 26 y Former alcohol use details: heavy use, 5 DWI's Substance/Drug Use: former Household members: none Housing: House Marital status: service: Yes Current occupational status: retired Vitals/I&O/Wt Last Vital Signs Temp 100.4 F H 02/20/23 15:56 Pulse 69 02/20/23 15:56 Resp 16 02/20/23 15:56 BP 175/82 02/20/23 15:56 Pulse Ox 95 02/20/23 15:56 O2 Del Method Room Air 02/20/23 15:56 Weight last 48 hrs Weight 163.293 kg Physical Exam Const: COMMON NORMALS: no acute distress and patient oriented x3 Eye: COMMON NORMALS: Equal, round and reactive pupils present and EOMs intact bilaterally Neck/C-Spine: COMMON NORMALS: full ROM, no lymphadenopathy and supple Lymph: LYMPHATIC: no lymphadenopathy noted Resp: COMMON NORMALS: normal respiratory effort, No retractions, No use of accessory muscles and clear to auscultation bilaterally AUSCULTATION: clear to auscultation bilaterally Cardio: COMMON NORMALS: no JVD, regular rate, regular rhythm, S1 normal heart sound present and S2 normal heart sound present RATE: regular rate RHYTHM: regular rhythm HEART SOUNDS: S1 normal heart sound present and S2 normal heart sound present GI: COMMON NORMALS: Normal to inspection, nondistended, normoactive bowel sounds present, Soft to palpation and non-tender Extremity: COMMON NORMALS: no pedal edema Neuro: COMMON NORMALS: patient oriented x3, CN's II-XII intact bilaterally, moves all extremities and no sensory deficits noted OTHER: Bilateral leg weakness, strength bilateral lower extremities is diminished, strength would be 3 out of 5, able to hold both legs up against gravity, Psych: COMMON NORMALS: mental status grossly normal Data 02/20/23 14:33 02/20/23 14:33 A&P Assessment and plan (1) Spondylolisthesis at L4-L5 level: (2) DDD (degenerative disc disease), lumbosacral: (3) Spinal stenosis, lumbar region, with neurogenic claudication: (4) Diabetes mellitus, type II: Qualifiers: Diabetes mellitus senior care insulin use: with terminal make up operator use Diabetes mellitus complication status: with neurologic complications Diabetes mellitus complication detail: with polyneuropathy Qualified Code(s): E11.42 - Type 2 diabetes mellitus with diabetic polyneuropathy; Z79.4 - jail (current) use of insulin (5) BMI 40.0-44.9, adult: (6) Atrial fibrillation: (7) Diabetic peripheral neuropathy associated with type 2 diabetes mellitus: (8) Sacroiliitis: (9) Lumbar foraminal stenosis: (10) Acute low back pain: (11) Acute kidney injury: (12) Difficulty in walking: (13) Fall: Plan Acute low back pain, ? With history of spinal stenosis, neurogenic claudication, acute on chronic bilateral extremity pain, acute on chronic lower back pain, ? Acute on chronic weakness in bilateral extremities ? Plan to ? PT OT, ? Hydrocodone for pain control ? We will consider MRI of lower lumbar spine, ? Continue to monitor closely, ESR, autoimmune antibodies during last hospitalization within normal limits Difficulty in walking, PT OT, DANITZA, monitor urine output, CPK level, History of CAD, History of CHF, does not look fluid overloaded, hold off on further diuresis given DANITZA, Hypertension, hold off on lisinopril, hydrochlorothiazide, Lasix, History of peripheral neuropathy continue Lyrica History of atrial fibrillation continue Eliquis, Type 2 diabetes mellitus, Lantus 10 units at bedtime, moderate dose sliding scale BPH continue finasteride Full code Eliquis for DVT prophylaxis Attestations Medical Necessity Statement*: Patient requires hospitalization, inpatient, greater than 2 midnights for acute low back pain, fall, difficulty ambulating, lumbar foraminal stenosis, DANITZA, generalized weakness Coding Level of Care Code Acute Code for Chg Fwd Diagnoses Spondylolisthesis at L4-L5 level M43.16 DDD (degenerative disc disease), lumbosacral M51.37 Spinal stenosis, lumbar region, with neurogenic claudication M48.062 Diabetes mellitus, type II E11.42; Z79.4 Diabetes mellitus terminal make up operator insulin use: with senior care use Diabetes mellitus complication status: with neurologic complications Diabetes mellitus complication detail: with polyneuropathy BMI 40.0-44.9, adult Z68.41 Atrial fibrillation I48.91 Diabetic peripheral neuropathy associated with type 2 diabetes mellitus E11.42 Sacroiliitis M46.1 Lumbar foraminal stenosis M48.061 Acute low back pain M54.50 Acute kidney injury N17.9 Difficulty in walking R26.2 Fall W19.XXXA
--- NOTE | 2023-02-20 16:33 | ECG_ITS ---
[facility] Test Date: 2023-02-20 Pat Name: Giles Guillaume Department: Room: Gender: Male Clinical Applications Specialist: : 1950 Requested By: Jone Pastor Order Number: [id number] Shelton MD: Elizabeth Bruner M.D. Measurements Intervals [place] Rate: 102 P: 0 RI: 0 QRS: 88 QRSD: 152 T: -7 QT: 379 QTc: 495 Interpretive Statements ATRIAL FIBRILLATION WITH RAPID VENTRICULAR RESPONSE RIGHT BUNDLE BRANCH BLOCK [120+ ms QRS DURATION, UPRIGHT V1, 40+ ms S IN I/aVL/V4/V5/V6] Compared to ECG 10/06/2022 15:09:35 Ventricular-paced complex(es) or rhythm no longer present Electronically Signed On 02-21-2023 13:54:13 INDUSTRIAL YARD BRAKE COUPLER by Elizabeth Bruner M.D. [id number]
[2023-02-20 17:21] LABS: Erythrocyte Sedimentation Rate 28 mm/hr (0-10)
[2023-02-20 17:34] LABS: Creatine Phosphokinase 152 U/L (39-308); Magnesium 2.5 mg/dL (1.7-2.3); NT Pro B Type Natriuretic Pept 2494 pg/mL (0-125); Thyroid Stimulating Hormone 0.96 uIU/mL (0.27-4.20)
[2023-02-20 17:37] LABS: Troponin(5th) Baseline 104 ng/L (0-15)
[2023-02-20 17:44] VITALS: BP 143/87; RESP 18; O2SAT 96
[2023-02-20 17:59] VITALS: O2SAT 96
[2023-02-20 18:01] LABS: Troponin 5 2HR Delta -3.8 ABS# (0-10)
[2023-02-20 18:06] LABS: Troponin 5 2HR 100.2 ng/L (0-15)
--- NOTE | 2023-02-20 18:20 | ECG_ITS ---
[facility] Test Date: 2023-02-20 Pat Name: Giles Guillaume Department: Room: 276 Gender: Male Property Field Inspector: : 1950 Requested By: Jone Pastor Order Number: [id number] Shelton MD: Elizabeth Bruner M.D. Measurements Intervals [place] Rate: 102 P: 0 MS: 0 QRS: 95 QRSD: 149 T: -15 QT: 376 QTc: 492 Interpretive Statements ATRIAL FIBRILLATION WITH RAPID VENTRICULAR RESPONSE RIGHT BUNDLE BRANCH BLOCK [120+ ms QRS DURATION, UPRIGHT V1, 40+ ms S IN I/aVL/V4/V5/V6] Compared to ECG 02/20/2023 16:33:41 No significant changes Electronically Signed On 02-21-2023 14:02:14 CARPET INSPECTOR by Elizabeth Bruner M.D. [email or web address] [email or web address] Surgical Roboticsmercy [email or web address].[email or web address]/store/[id number]
[2023-02-20] MEDS: atorvastatin 40 mg Tablet PO (19:23)
[2023-02-20] MEDS: pantoprazole 40 mg SDV IVP (19:23)
[2023-02-20] MEDS: pregabalin 150 mg Capsule 300 MG PO (19:23)
[2023-02-20] MEDS: prazosin 1 mg Capsule PO (19:23)
[2023-02-20 20:00] VITALS: BP 146/76; PULSE 90; RESP 18; TEMP 36.6; O2SAT 90
[2023-02-20] MEDS: tamsulosin 0.4 mg Capsule PO (20:05)
[2023-02-20] MEDS: apixaban 5 mg Tablet PO (20:05)
[2023-02-20] MEDS: potassium chloride ER 20 mEq Tablet 40 MEQ PO (20:06)
[2023-02-20 22:00] VITALS: PULSE 88
[2023-02-20 22:21] LABS: Troponin 5 6HR 92.59 ng/L (0-15)
[2023-02-20 22:22] LABS: Troponin 5 6HR Delta -11.41 ng/L (0-12)
[2023-02-20 22:46] LABS: Glucose Point of Care 252 mg/dL (70-110)
[2023-02-20] MEDS: insulin lispro 100 unit/1 mL SUBCUT (22:46)
[2023-02-21] VITALS (10 sets, daily range): BP systolic 96–127; BP diastolic 61–77; PULSE 82–100; RESP 16–19; TEMP 36.5–38.7; O2SAT 91–93
[2023-02-21 06:00] LABS: Basophils % 0.3 %; Eosinophils % 0.1 %; Hematocrit 46.5 % (37-53); Lymphocytes # 1.9 10^3/uL (0.8-4.8); Lymphocytes % 11.9 %; Mean Corpuscular HGB Conc 31.2 g/dL (30-55); Mean Corpuscular Hemoglobin 27.3 pg (27-33); Mean Corpuscular Volume 87.6 fl (82-101); Mean Platelet Volume 11.6 fL (7.4-10.4); Monocytes # 1.2 10^3/uL (0.2-0.9); Monocytes % 7.9 %; Neutrophils # 12.34 10^3/uL (1.8-7.7); Neutrophils % 79.4 %; Nucleated Red Blood Cells % 0 %; Platelet Count 143 10^3/cmm (157-399); Red Blood Count 5.31 10^6/uL (3.85-5.65); Red Cell Distribution Width 14.2 % (12.1-15.1); White Blood Count 15.53 10^3/uL (3.29-11.43)
[2023-02-21 06:24] LABS: Alanine Aminotransferase 8 U/L (0-41); Albumin Level 3.2 g/dL (3.5-5.2); Alkaline Phosphatase 78 U/L (40-130); Anion Gap 17.8 (5-19); Aspartate Amino Transferase 15 U/L (0-40); Blood Urea Nitrogen 46 mg/dL (8-23); Calcium 8.8 mg/dL (8.5-10.5); Carbon Dioxide 31 mmol/L (22-29); Chloride 97 mmol/L (98-107); Globulin 2.7 g/dL (1.3-4.6); Glucose 169 mg/dL (65-115); Osmolality Calculated 312 mOsm/kg (285-295); Phosphorus 4.4 mg/dL (2.5-4.5); Sodium 143 mmol/L (136-145); Total Bilirubin 1.6 mg/dL (0.15-1.2); Total Protein 5.9 g/dL (6.6-8.7)
[2023-02-21 06:36] LABS: Potassium 2.8 mmol/L (3.5-5.1)
[2023-02-21] MEDS: acetaminophen 325 mg Tablet 650 MG PO (07:55)
[2023-02-21] MEDS: duloxetine 30 mg Capsule PO (08:00)
[2023-02-21] MEDS: thiamine 100 mg Tablet PO (08:00)
[2023-02-21] MEDS: finasteride 5 mg Tablet PO (08:00)
[2023-02-21] MEDS: potassium chloride ER 20 mEq Tablet 40 MEQ PO (08:00)
[2023-02-21] MEDS: apixaban 5 mg Tablet PO ×2 (08:00→20:35)
[2023-02-21] MEDS: pregabalin 150 mg Capsule 300 MG PO ×2 (08:00→17:26)
[2023-02-21] MEDS: insulin lispro 100 unit/1 mL SUBCUT ×3 (08:00→17:26)
[2023-02-21] MEDS: allopurinol 300 mg Tablet PO (08:00)
[2023-02-21] MEDS: magnesium oxide 400 mg tablet PO (08:00)
--- NOTE | 2023-02-21 09:29 | USCV_ITS ---
Guillaume Giles Age: 73 Gender: M : 1950 Exam Date: 02/21/2023 10:59 Ordering Phys: Jone Pastor MD Technologist: Dean Bonner Exam Location: [facility] Indication: NSTEMI BP: 126 / 74 HR: 83 Rhythm: Atrial fibrillation Technical Quality: Technically difficult study MEASUREMENTS (Male / Female) Normal Values 2D ECHO LVOT Diameter 2.3 cm LV Ejection Fraction MOD 2C 64.7 % LV Ejection Fraction 2C AL 64.6 % LA Diameter 4.3 cm LA Width 4.3 cm LA Height 5.6 cm RA Width 4.2 cm RA Height 4.8 cm Aorta at Sinotubular Diameter 2.8 cm IVC Diameter 2.2 cm M-MODE Aortic Annulus Diameter 2.9 cm LA Ao Ratio MM 1.6 DOPPLER AV Peak Velocity 125.0 cm/s LVOT Peak Velocity 74.0 cm/s AV Area Cont Eq vti 2.5 cm squared AV Area Cont Eq pk 2.4 cm squared MV Peak Velocity 120.0 cm/s MV Area PHT 4.8 cm squared Mitral E to A Ratio 3.5 MV E' Velocity 43.5 cm/s Mitral E to MV E' Ratio 9.8 Mitral E to LV E' Lateral Ratio 10.0 Mitral E to LV E' Septal Ratio 9.7 TR Peak Velocity 222.3 cm/s TR Peak Gradient 19.8 mmHg TR Mean Velocity 167.5 cm/s TR Mean Gradient 12.2 mmHg TR Velocity Time Integral 46.7 cm Right Atrial Pressure 8.0 mmHg Pulmonary Artery Systolic Pressu 27.8 mmHg PV Peak Velocity 100.0 cm/s RV Acceleration Time 0.1 s RV Ejection Time 0.2 s RV AcT/ET 0.4 FINDINGS Left Ventricle Normal left ventricular size, systolic function and wall thickness, with no regional wall motion abnormalities. Left ventricular ejection fraction is estimated at 64 %. Right Ventricle Normal right ventricular size and systolic function. Right Atrium Normal right atrial size. Left Atrium Normal left atrial size. Mitral Valve Thickened mitral valve. Trace mitral valve regurgitation. Aortic Valve Thickened aortic valve. No aortic valve stenosis. Tricuspid Valve Tricuspid valve not well visualized. Trace tricuspid valve regurgitation. Pulmonic Valve Pulmonic valve not well visualized. Trace pulmonary valve regurgitation. Pericardium No pericardial effusion. Aorta Normal size aortic root and proximal ascending aorta. IVC Mildly dilated IVC. CONCLUSIONS Technically difficult echo, contrast was used to assess LV functions. 1. Normal LV systolic function, LVEF normal 65%. 2. Normal chamber sizes. 3. No significant valvular abnormality noted. 4. IVC mildly dilated, however RV and pulmonary pressures are normal. Elizabeth Bruner MD (Electronically Signed) Final Date: 21 February 2023 13:37 S
--- NOTE | 2023-02-21 09:30 | XRR_ITS ---
PROCEDURE INFORMATION: Exam: XR Chest Exam date and time: 02/21/2023 10:42 AM Age: 73 years old Clinical indication: Fever TECHNIQUE: Imaging protocol: Radiologic exam of the chest. Views: 1 view. COMPARISON: 1. CR XR chest 1V portable [id number] 10/06/2022 9:47 AM 2. CR (CHEST, ) 02/20/2023 3:08 PM FINDINGS: Lungs: Left lower lobe consolidation. Pleural spaces: Possible left pleural effusion. No pneumothorax. Heart/Mediastinum: Stable cardiomegaly. Vasculature: Aortic arch atherosclerotic calcification. Bones/joints: Unremarkable. Soft tissues: Single lead cardiac pacemaker with left chest generator. XR/XR chest 1V portable [id number] IMPRESSION: Rapidly developed left lower lobe consolidation favored to represent atelectasis from mucous plugging, possibly pleural effusion. Pneumonia considered less likely but not entirely excluded given reported fever.
[2023-02-21 10:11] LABS: C Reactive Protein 235.5 mg/L (0.0-4.9)
[2023-02-21 10:17] LABS: Procalcitonin 0.99 ng/mL (0-0.5)
[2023-02-21] MEDS: lidocaine 1% 5 ML in potassium chloride premix 100 ML 26.25 ML IV (10:34)
[2023-02-21] MEDS: zinc oxide oint 30 gm TOPICAL (10:34)
[2023-02-21] MEDS: perflutren protein-a microsphr 0.22 mg/mL SDV 3 mL IV (11:32)
--- NOTE | 2023-02-21 16:15 | PM.PN ---
Subjective Subjective: Patient was seen this morning, he does report a fever overnight, does have a cough, no nausea, vomiting, abdominal pain, no episodes of aspiration, no lightheadedness, dizziness, no dysuria Chest x-ray ordered, Pro-Jose, CRP, blood cultures, respiratory viral panel, sputum cultures, UA, chest x-ray reviewed, has left lower lobe consolidation, with Pro-Jose 0.99, CRP 235, likely pneumonia with fevers, respiratory viral panel has not been collected yet we will start on Rocephin and azithromycin, monitor respiratory status closely, treat fevers, did have hypokalemia we will replace IV Vitals/I&O/Wt Last Vital Signs Temp 100.3 F H 02/21/23 11:36 Pulse 96 02/21/23 11:36 Resp 17 02/21/23 11:36 BP 110/61 02/21/23 11:36 Pulse Ox 91 02/21/23 11:36 O2 Del Method Room Air 02/21/23 11:36 02/21/23 02/21/23 02/21/23 06:59 14:59 22:59 Intake Total 1000 / 1000 600 / 600 Output Total 400 / 400 Balance 600 / 600 600 / 600 Weight last 48 hrs Weight 141.606 kg Weight 163.293 kg Physical Exam Const: COMMON NORMALS: no acute distress and patient oriented x3 Resp: COMMON NORMALS: normal respiratory effort, No retractions and No use of accessory muscles AUSCULTATION: wheezes Cardio: COMMON NORMALS: regular rate, regular rhythm, S1 normal heart sound present and S2 normal heart sound present RATE: regular rate RHYTHM: regular rhythm HEART SOUNDS: S1 normal heart sound present and S2 normal heart sound present GI: COMMON NORMALS: Normal to inspection, nondistended, normoactive bowel sounds present and non-tender Extremity: COMMON NORMALS: no pedal edema Neuro: COMMON NORMALS: patient oriented x3 Psych: COMMON NORMALS: mental status grossly normal Data 02/21/23 05:28 02/21/23 05:28 Micro: Microbiology 02/21/23 09:49 Blood Culture - Preliminary Blood SPECIMEN COLLECTED 02/21/23 09:45 Blood Culture - Preliminary Blood SPECIMEN COLLECTED A&P Assessment and plan (1) Spondylolisthesis at L4-L5 level: (2) DDD (degenerative disc disease), lumbosacral: (3) Spinal stenosis, lumbar region, with neurogenic claudication: (4) Diabetes mellitus, type II: Qualifiers: 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 truck driver insulin use: with intermodal truck driver use Diabetes mellitus complication status: with neurologic complications Diabetes mellitus complication detail: with polyneuropathy Qualified Code(s): E11.42 - Type 2 diabetes mellitus with diabetic polyneuropathy; Z79.4 - USP (current) use of insulin (5) BMI 40.0-44.9, adult: (6) Atrial fibrillation: (7) Diabetic peripheral neuropathy associated with type 2 diabetes mellitus: (8) Sacroiliitis: (9) Lumbar foraminal stenosis: (10) Acute low back pain: (11) Acute kidney injury: (12) Difficulty in walking: (13) Fall: (14) Left lower lobe pneumonia: Plan Left lower lobe pneumonia ? Consolidation left lower lobe on chest x-ray, ? Pro-Jose 0.99, CRP to 35.5, with fevers throughout the night, ? Plan, ? Continue Rocephin, azithromycin, ? Sputum cultures, ? Blood cultures, ? Respiratory viral panel, ? Monitor respiratory status closely, ?, Treat fevers Acute low back pain, ? With history of spinal stenosis, neurogenic claudication, acute on chronic bilateral extremity pain, acute on chronic lower back pain, ? Acute on chronic weakness in bilateral extremities ? Plan to ? PT OT, ? Hydrocodone for pain control ? We will consider MRI of lower lumbar spine, ? Continue to monitor closely, ESR, autoimmune antibodies during last hospitalization within normal limits Difficulty in walking, PT OT, DANITZA, monitor urine output, CPK level,, Hypokalemia, replace IV, n.p.o. repeat BMP in the afternoon History of CAD, History of CHF, does not look fluid overloaded, hold off on further diuresis given DANITZA, Hypertension, hold off on lisinopril, hydrochlorothiazide, Lasix, History of peripheral neuropathy continue Lyrica History of atrial fibrillation continue Eliquis, Type 2 diabetes mellitus, Lantus 10 units at bedtime, moderate dose sliding scale, NSTEMI ? No chest pain complaints, ? Cardiac echo CONCLUSIONS ?Technically difficult echo, contrast was used to assess LV ?functions. ?1.? Normal LV systolic function, LVEF normal 65%. ?2.? Normal chamber sizes. ?3.? No significant valvular abnormality noted. ?4.? IVC mildly dilated, however RV and pulmonary pressures are ?normal. ? Serial EKGs, serial troponins, telemetry monitoring, BPH continue finasteride Full code Eliquis for DVT prophylaxis Chest x-ray ordered, Pro-Jose, CRP, blood cultures, respiratory viral panel, sputum cultures, UA, chest x-ray reviewed, has left lower lobe consolidation, with Pro-Jose 0.99, CRP 235, likely pneumonia with fevers, respiratory viral panel has not been collected yet we will start on Rocephin and azithromycin, monitor respiratory status closely, treat fevers, did have hypokalemia we will replace IV Attestations Medical Necessity Statement*: Patient requires hospitalization for pneumonia, requiring IV antibiotics, DANITZA, hypokalemia, generalized weakness Diagnoses Spondylolisthesis at L4-L5 level M43.16 DDD (degenerative disc disease), lumbosacral M51.37 Spinal stenosis, lumbar region, with neurogenic claudication M48.062 Diabetes mellitus, type II E11.42; Z79.4 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
[2023-02-21] MEDS: pantoprazole 40 mg SDV IVP (16:47)
[2023-02-21] MEDS: azithromycin 500 MG in sodium chloride 0.9% 250 ML 250 MG IV (16:47)
[2023-02-21 16:49] LABS: Erythrocyte Sedimentation Rate 35 mm/hr (0-10)
[2023-02-21] MEDS: atorvastatin 40 mg Tablet PO (17:26)
[2023-02-21] MEDS: prazosin 1 mg Capsule PO (17:26)
[2023-02-21 18:26] LABS: Blood Urea Nitrogen 55 mg/dL (8-23); Calcium 8.6 mg/dL (8.5-10.5); Carbon Dioxide 27 mmol/L (22-29); Chloride 96 mmol/L (98-107); Glucose 248 mg/dL (65-115); Osmolality Calculated 305 mOsm/kg (285-295); Sodium 136 mmol/L (136-145)
[2023-02-21 18:27] LABS: Anion Gap 16.9 (5-19); Potassium 3.9 mmol/L (3.5-5.1)
[2023-02-21 19:19] LABS: Adenovirus Not Detected (NOT DETECT); Chlamydia Pneumoniae Not Detected (NOT DETECT); Coronavirus 229E,HKU1,NL63,OC4 Not Detected (NOT DETECT); Human Metapneumovirus Not Detected (NOT DETECT); Human Rhinovirus/Enterovirus Not Detected (NOT DETECT); Influenza A Not Detected (NOT DETECT); Influenza A H1 Not Detected (NOT DETECT); Influenza A H1-2009 Not Detected (NOT DETECT); Influenza A H3 Not Detected (NOT DETECT); Influenza B Not Detected (NOT DETECT); Mycoplasma Pneumoniae Not Detected (NOT DETECT); Parainfluenza Virus Type 1 Not Detected (NOT DETECT); Parainfluenza Virus Type 2 Not Detected (NOT DETECT); Parainfluenza Virus Type 3 Not Detected (NOT DETECT); Parainfluenza Virus Type 4 Not Detected (NOT DETECT); Respiratory Syncytial Virus A Not Detected (NOT DETECT); Respiratory Syncytial Virus B Not Detected (NOT DETECT); SARS-COV-2 Not Detected (NOT DETECT)
[2023-02-21] MEDS: tamsulosin 0.4 mg Capsule PO (20:35)
--- NOTE | 2023-02-21 21:38 | PC.NURSE ---
accu check was done on patients personal dexcom. sugar read 270
[2023-02-21] MEDS: insulin glargine 100 units/1 mL 10 UNIT SUBCUT (22:13)
[2023-02-21] MEDS: cefTRIAXone 1,000 MG in sodium chloride 0.9% (plus) 50 ML 100 MG IV (22:13)
[2023-02-22] VITALS (11 sets, daily range): BP systolic 129–167; BP diastolic 66–84; PULSE 80–94; RESP 16–18; TEMP 36.3–36.8; O2SAT 91–95
[2023-02-22 05:45] LABS: Basophils % 0.1 %; Eosinophils % 0.1 %; Hematocrit 45.5 % (37-53); Lymphocytes # 1.8 10^3/uL (0.8-4.8); Lymphocytes % 12.7 %; Mean Corpuscular HGB Conc 32.3 g/dL (30-55); Mean Corpuscular Hemoglobin 27.7 pg (27-33); Mean Corpuscular Volume 85.7 fl (82-101); Mean Platelet Volume 12.1 fL (7.4-10.4); Monocytes % 7.2 %; Neutrophils # 11.32 10^3/uL (1.8-7.7); Neutrophils % 79.5 %; Nucleated Red Blood Cells % 0 %; Platelet Count 144 10^3/cmm (157-399); Red Blood Count 5.31 10^6/uL (3.85-5.65); White Blood Count 14.22 10^3/uL (3.29-11.43)
[2023-02-22 05:56] LABS: Alanine Aminotransferase 8 U/L (0-41); Albumin Level 3.1 g/dL (3.5-5.2); Alkaline Phosphatase 80 U/L (40-130); Blood Urea Nitrogen 56 mg/dL (8-23); Calcium 8.6 mg/dL (8.5-10.5); Carbon Dioxide 27 mmol/L (22-29); Chloride 96 mmol/L (98-107); Glucose 199 mg/dL (65-115); Osmolality Calculated 305 mOsm/kg (285-295); Phosphorus 4.2 mg/dL (2.5-4.5); Sodium 137 mmol/L (136-145); Total Bilirubin 0.8 mg/dL (0.15-1.2); Total Protein 6.1 g/dL (6.6-8.7)
[2023-02-22 05:57] LABS: C Reactive Protein 267.1 mg/L (0.0-4.9); Magnesium 2.5 mg/dL (1.7-2.3)
[2023-02-22 06:01] LABS: Anion Gap 17.5 (5-19); Aspartate Amino Transferase 20 U/L (0-40); Potassium 3.5 mmol/L (3.5-5.1)
[2023-02-22 06:08] LABS: NT Pro B Type Natriuretic Pept 4816 pg/mL (0-125)
[2023-02-22] MEDS: duloxetine 30 mg Capsule PO (08:37)
[2023-02-22] MEDS: potassium chloride ER 20 mEq Tablet 40 MEQ PO (08:37)
[2023-02-22] MEDS: pregabalin 150 mg Capsule 300 MG PO ×2 (08:37→20:09)
[2023-02-22] MEDS: magnesium oxide 400 mg tablet PO (08:37)
[2023-02-22] MEDS: thiamine 100 mg Tablet PO (08:38)
[2023-02-22] MEDS: allopurinol 300 mg Tablet PO (08:38)
[2023-02-22] MEDS: finasteride 5 mg Tablet PO (08:38)
[2023-02-22] MEDS: apixaban 5 mg Tablet PO ×2 (08:38→20:44)
[2023-02-22] MEDS: zinc oxide oint 30 gm TOPICAL (08:38)
--- NOTE | 2023-02-22 08:48 | PC.NURSE ---
Patients Dexacom reading was 180 this Am. 4u of Humalog administered per sliding scale
[2023-02-22] MEDS: insulin lispro 100 unit/1 mL SUBCUT ×3 (09:44→18:13)
[2023-02-22] MEDS: HYDROcodone-acetaminophen 5-325 mg Tablet 1 TAB PO (09:45)
[2023-02-22 11:46] LABS: Glucose Point of Care 247 mg/dL (70-110)
[2023-02-22] MEDS: docusate sodium 100 mg Capsule PO ×2 (12:16→20:10)
[2023-02-22] MEDS: polyethylene glycol 3350 Pkt 17 gm PO (12:17)
--- NOTE | 2023-02-22 13:23 | P.PN_ITS ---
Subjective Subjective: Patient was seen this morning, continues to complain of fatigue, malaise, shortness of breath, does have 1+ pitting edema bilateral lower extremities, no cough, does report no bowel movement in the last 48 hours, persistent bilateral extremity pain, back pain Vitals/I&O/Wt Last Vital Signs Temp 97.5 F L 02/22/23 12:00 Pulse 94 02/22/23 12:00 Resp 18 02/22/23 12:00 BP 148/84 02/22/23 12:00 Pulse Ox 93 02/22/23 10:55 O2 Del Method Room Air 02/22/23 10:55 02/21/23 02/22/23 02/22/23 22:59 06:59 14:59 Intake Total 780 / 1485 240 / 240 Output Total 350 / 350 Balance 780 / 1485 -350 / 1135 240 / 240 Weight last 48 hrs Weight 144.016 kg Weight 141.606 kg Weight 163.293 kg Physical Exam Const: COMMON NORMALS: no acute distress and patient oriented x3 Resp: COMMON NORMALS: normal respiratory effort, No retractions, No use of accessory muscles and clear to auscultation bilaterally AUSCULTATION: clear to auscultation bilaterally Cardio: COMMON NORMALS: regular rate, regular rhythm, S1 normal heart sound present and S2 normal heart sound present RATE: regular rate RHYTHM: regular rhythm HEART SOUNDS: S1 normal heart sound present and S2 normal heart sound present GI: COMMON NORMALS: Normal to inspection, nondistended, normoactive bowel sounds present and non-tender Extremity: COMMON NORMALS: no pedal edema Neuro: COMMON NORMALS: patient oriented x3 Psych: COMMON NORMALS: mental status grossly normal Skin: NARRATIVE SKIN EXAM: 1+ pitting edema Data 02/22/23 05:24 02/22/23 05:24 Micro: Microbiology 02/21/23 09:49 Blood Culture - Preliminary Blood NEGATIVE TO DATE 02/21/23 09:45 Blood Culture - Preliminary Blood NEGATIVE TO DATE A&P Assessment and plan (1) Spondylolisthesis at L4-L5 level: (2) DDD (degenerative disc disease), lumbosacral: (3) Spinal stenosis, lumbar region, with neurogenic claudication: (4) Diabetes mellitus, type II: Qualifiers: Diabetes mellitus complication detail: with polyneuropathy Diabetes mellitus complication status: with neurologic complications Diabetes mellitus prison insulin use: with remote computer terminal operator use Qualified Code(s): E11.42 - Type 2 diabetes mellitus with diabetic polyneuropathy; Z79.4 - 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 Consolidation left lower lobe on chest x-ray, ? Pro-Jose 0.99, CRP to 35.5, with fevers throughout the night, ? Currently afebrile ? Plan, ? Continue Rocephin, azithromycin, ? Sputum cultures, ? Blood cultures, ? Respiratory viral panel, ? Monitor respiratory status closely, ?, Treat fevers Diastolic CHF, acute, with lower extremity edema, ? Fluid restriction 1000 cc, 1 dose IV Lasix today Acute low back pain, ? With history of spinal stenosis, neurogenic claudication, acute on chronic bilateral extremity pain, acute on chronic lower back pain, ? Acute on chronic weakness in bilateral extremities ? Plan to ? PT OT, ? Has persistent back pain increase hydrocodone to 7.5 mg every 4 hours as n eeded ? Ordered MRI lumbar spine ? Continue to monitor closely, ESR, autoimmune antibodies during last hospitalization within normal limits Constipation, Colace 100 twice daily, MiraLAX 17 g once daily, lactulose 20 g once daily will consider Fleet enema Difficulty in walking, PT OT, DANITZA, monitor urine output, CPK level,, Hypokalemia, History of CAD, History of CHF, does not look fluid overloaded, hold off on further diuresis given DANITZA, Hypertension, hold off on lisinopril, hydrochlorothiazide, Lasix, History of peripheral neuropathy continue Lyrica History of atrial fibrillation continue Eliquis, Type 2 diabetes mellitus, Lantus 10 units at bedtime, moderate dose sliding scale, NSTEMI ? No chest pain complaints, ? Cardiac echo CONCLUSIONS ?Technically difficult echo, contrast was used to assess LV ?functions. ?1.? Normal LV systolic function, LVEF normal 65%. ?2.? Normal chamber sizes. ?3.? No significant valvular abnormality noted. ?4.? IVC mildly dilated, however RV and pulmonary pressures are ?normal. ? Serial EKGs, serial troponins, telemetry monitoring, BPH continue finasteride Full code Eliquis for DVT prophylaxis Plan for today continue IV antibiotics, PT OT, 1 dose IV Lasix today, increase [place], lumbar spine MRI Attestations Medical Necessity Statement*: Patient requires hospitalization for fluid overload requiring diuresis, pneumonia, lower extremity weakness, back pain, PT OT, Diagnoses Spondylolisthesis at L4-L5 level M43.16 DDD (degenerative disc disease), lumbosacral M51.37 Spinal stenosis, lumbar region, with neurogenic claudication M48.062 Diabetes mellitus, type II E11.42; Z79.4 Diabetes mellitus complication detail: with polyneuropathy Diabetes mellitus complication status: with neurologic complications Diabetes mellitus remote computer terminal operator insulin use: with remote computer terminal operator use BMI 40.0-44.9, adult Z68.41 Atrial fibrillation I48.91 Diabetic peripheral neuropathy associated with type 2 diabetes mellitus E11.42 Sacroiliitis M46.1 Lumbar foraminal stenosis M48.061 Acute low back pain M54.50 Acute kidney injury N17.9 Difficulty in walking R26.2 Fall W19.XXXA Left lower lobe pneumonia J18.9 Diastolic CHF, acute I50.31 Leg edema R60.0
[2023-02-22 16:31] LABS: Glucose Point of Care 246 mg/dL (70-110)
[2023-02-22] MEDS: HYDROcodone-acetaminophen 7.5-325 mg Tablet 1 TAB PO (18:02)
[2023-02-22] MEDS: azithromycin 500 MG in sodium chloride 0.9% 250 ML 250 MG IV (18:03)
[2023-02-22] MEDS: FUROsemide 10 mg/mL SDV 4mL 40 MG IVP (18:03)
[2023-02-22] MEDS: pantoprazole 40 mg SDV IVP (18:10)
[2023-02-22] MEDS: lactulose oral liq 20 gm/30 mL UDC PO (18:11)
[2023-02-22] MEDS: atorvastatin 40 mg Tablet PO (20:09)
[2023-02-22] MEDS: prazosin 1 mg Capsule PO (20:09)
[2023-02-22] MEDS: cefTRIAXone 1,000 MG in sodium chloride 0.9% (plus) 50 ML 100 MG IV (20:43)
[2023-02-22] MEDS: tamsulosin 0.4 mg Capsule PO (20:44)
[2023-02-22] MEDS: insulin glargine 100 units/1 mL 10 UNIT SUBCUT (22:11)
[2023-02-23] VITALS (9 sets, daily range): BP systolic 129–184; BP diastolic 77–97; PULSE 86–94; RESP 16–18; TEMP 36.2–36.8; O2SAT 93–99
--- NOTE | 2023-02-23 00:06 | PC.NURSE ---
noted that pt has order for christine insertion, patient strongly refused to have cath placed, stating the last time he had one put in it hurt too bad. nurse explained why christine is needed and would help empty pt bladder, pt continue to refuse
[2023-02-23 04:50] LABS: Add Urine Microscopic? YES; Bilirubin Urine Neg (Negative); Blood Urine 3+ (Negative); Glucose Urine UA 4+ (Normal); Ketones Urine 1+ (Negative); Leukocyte Esterase Urine Negative (Negative); Nitrate Urine Negative (Negative); Protein Urine 1+ (Negative); Specific Gravity, Urine 1.015 (1.005-1.030); Urine Appearance Clear (CLEAR); Urine Color Colorless (Yellow); Urobilinogen Urine Neg (Negative); pH Urine 5 (5-7)
[2023-02-23 04:51] LABS: Add Urine Culture? No; Amorphous Sediment Urine TRACE /hpf; WBC Urine RARE /hpf (0-5)
[2023-02-23 05:42] LABS: Basophils % 0.2 %; Eosinophils % 0.2 %; Hematocrit 45.3 % (37-53); Lymphocytes # 1.7 10^3/uL (0.8-4.8); Lymphocytes % 12.9 %; Mean Corpuscular HGB Conc 32.9 g/dL (30-55); Mean Corpuscular Hemoglobin 27.9 pg (27-33); Mean Corpuscular Volume 84.7 fl (82-101); Mean Platelet Volume 11.9 fL (7.4-10.4); Monocytes # 0.9 10^3/uL (0.2-0.9); Monocytes % 7.1 %; Neutrophils # 10.33 10^3/uL (1.8-7.7); Nucleated Red Blood Cells % 0 %; Platelet Count 150 10^3/cmm (157-399); Red Blood Count 5.35 10^6/uL (3.85-5.65); White Blood Count 13.07 10^3/uL (3.29-11.43)
[2023-02-23] MEDS: HYDROcodone-acetaminophen 7.5-325 mg Tablet 1 TAB PO ×2 (06:15→13:04)
[2023-02-23 06:23] LABS: NT Pro B Type Natriuretic Pept 5693 pg/mL (0-125); Procalcitonin 1.02 ng/mL (0-0.5)
[2023-02-23 06:24] LABS: Alanine Aminotransferase 15 U/L (0-41); Alkaline Phosphatase 87 U/L (40-130); Anion Gap 18.3 (5-19); Aspartate Amino Transferase 35 U/L (0-40); Blood Urea Nitrogen 57 mg/dL (8-23); Calcium 8.9 mg/dL (8.5-10.5); Carbon Dioxide 27 mmol/L (22-29); Chloride 95 mmol/L (98-107); Globulin 3.4 g/dL (1.3-4.6); Glucose 223 mg/dL (65-115); Osmolality Calculated 307 mOsm/kg (285-295); Phosphorus 4.5 mg/dL (2.5-4.5); Potassium 3.3 mmol/L (3.5-5.1); Sodium 137 mmol/L (136-145); Total Bilirubin 0.6 mg/dL (0.15-1.2); Total Protein 6.4 g/dL (6.6-8.7)
--- NOTE | 2023-02-23 06:41 | PC.NURSE ---
morning glucose was 226 according to patient's dexcom
[2023-02-23 06:48] LABS: C Reactive Protein 277.5 mg/L (0.0-4.9); Magnesium 2.4 mg/dL (1.7-2.3)
[2023-02-23 08:14] LABS: Glucose Point of Care 230 mg/dL (70-110)
[2023-02-23] MEDS: allopurinol 300 mg Tablet PO (08:36)
[2023-02-23] MEDS: docusate sodium 100 mg Capsule PO ×2 (08:36→17:07)
[2023-02-23] MEDS: thiamine 100 mg Tablet PO (08:36)
[2023-02-23] MEDS: magnesium oxide 400 mg tablet PO (08:36)
[2023-02-23] MEDS: potassium chloride ER 20 mEq Tablet 40 MEQ PO (08:36)
[2023-02-23] MEDS: apixaban 5 mg Tablet PO ×2 (08:37→21:57)
[2023-02-23] MEDS: finasteride 5 mg Tablet PO (08:37)
[2023-02-23] MEDS: pregabalin 150 mg Capsule 300 MG PO ×2 (08:37→17:07)
[2023-02-23] MEDS: duloxetine 30 mg Capsule PO (08:37)
[2023-02-23] MEDS: insulin lispro 100 unit/1 mL SUBCUT ×3 (08:37→17:07)
[2023-02-23] MEDS: zinc oxide oint 30 gm TOPICAL (08:38)
[2023-02-23] MEDS: potassium chloride ER 20 mEq Tablet PO (09:49)
[2023-02-23] MEDS: metOLazone 5 MG Tablet PO (09:49)
[2023-02-23] MEDS: FUROsemide 10 mg/mL SDV 4mL 40 MG IVP (09:54)
[2023-02-23 12:44] LABS: Glucose Point of Care 463 mg/dL (70-110)
--- NOTE | 2023-02-23 14:26 | PC.SOCIAL ---
PG 2 IMM Explained to pt Pg 2 IMM. No questions voiced. Provided pt a copy. Initialed, dated, & timed a copy & placed in chart.
--- NOTE | 2023-02-23 16:28 | XRR_ITS ---
PROCEDURE INFORMATION: Exam: XR Chest Exam date and time: 02/23/2023 5:44 PM Age: 73 years old Clinical indication: Shortness of breath; Prior surgery; Surgery date: 6+ months; Surgery type: Pacer; Additional info: SOB TECHNIQUE: Imaging protocol: Radiologic exam of the chest. Views: 1 view. COMPARISON: CR (CHEST, ) 02/21/2023 10:42 AM FINDINGS: Lungs: Ill-defined left basilar opacity partially obscuring margins of the left hemidiaphragm concerning for consolidation and/or effusion of the left lower hemithorax. However assessment is limited as this is partially excluded from the field of view. Remaining lung mazariegos are clear. Pleural spaces: Unremarkable. No pleural effusion. No pneumothorax. Heart/Mediastinum: Heart is mildly enlarged, unchanged. Single electrode pacemaker extending into the right ventricle partially obscured. Bones/joints: Unremarkable for age. XR/XR chest 1V portable [id number] IMPRESSION: Cardiomegaly with left basilar consolidation and/or effusion better assessed on CT examination of the chest.
--- NOTE | 2023-02-23 16:30 | PM.PN ---
Subjective Subjective: Patient was seen this morning, he continues to tell me that he has severe back pain the hydrocodone is not helping the pain he continues to have lower extremity weakness, he tells me that he can barely ambulate or get up with the help of physical therapy, no fevers overnight, no cough, Vitals/I&O/Wt Last Vital Signs Temp 97.5 F L 02/23/23 11:34 Pulse 93 02/23/23 11:34 Resp 17 02/23/23 11:34 BP 151/77 02/23/23 11:34 Pulse Ox 95 02/23/23 11:34 O2 Del Method Room Air 02/23/23 11:34 02/23/23 02/23/23 02/23/23 06:59 14:59 22:59 Intake Total 1080 / 1080 Output Total 1150 / 1950 250 / 250 Balance -1150 / 30 830 / 830 Weight last 48 hrs Weight 144.787 kg Weight 144.016 kg Physical Exam Const: COMMON NORMALS: no acute distress and patient oriented x3 Resp: COMMON NORMALS: normal respiratory effort, No retractions and No use of accessory muscles AUSCULTATION: crackles and wheezes Cardio: COMMON NORMALS: regular rate, regular rhythm, S1 normal heart sound present and S2 normal heart sound present RATE: regular rate RHYTHM: regular rhythm HEART SOUNDS: S1 normal heart sound present and S2 normal heart sound present GI: COMMON NORMALS: Normal to inspection, nondistended, normoactive bowel sounds present and non-tender Extremity: NARRATIVE EXTREMITY EXAM: 2+ pitting edema Neuro: COMMON NORMALS: patient oriented x3, CN's II-XII intact bilaterally and moves all extremities OTHER: bilateral lower extremity edema 2+, has decreased strength bilateral extremities, Psych: COMMON NORMALS: mental status grossly normal Data 02/23/23 05:17 02/23/23 05:17 A&P Assessment and plan (1) Spondylolisthesis at L4-L5 level: (2) DDD (degenerative disc disease), lumbosacral: (3) Spinal stenosis, lumbar region, with neurogenic claudication: (4) Diabetes mellitus, type II: Qualifiers: Diabetes mellitus terminal operations supervisor insulin use: with intermediate use Diabetes mellitus complication status: with neurologic complications Diabetes mellitus complication detail: with polyneuropathy Qualified Code(s): E11.42 - Type 2 diabetes mellitus with diabetic polyneuropathy; 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 Consolidation left lower lobe on chest x-ray, ? Pro-Jose 0.99, CRP to 35.5, with fevers throughout the night, afebrile for the last 48 hours ? Currently afebrile ? Plan, ? Continue Rocephin, azithromycin, ? Sputum cultures, ? Blood cultures, ? Respiratory viral panel, negative ? Monitor respiratory status closely, ?, Treat fevers Diastolic CHF, acute, with lower extremity edema, ? Fluid restriction 1000 cc, 1 dose IV Lasix today, with metolazone Acute low back pain, ? With history of spinal stenosis, neurogenic claudication, acute on chronic bilateral extremity pain, acute on chronic lower back pain, ? Acute on chronic weakness in bilateral extremities ? Plan to ? PT OT, ? Has persistent back pain increase hydrocodone to 7.5 mg every 4 hours as needed ? We will discuss with Dr. cabrera ? Continue to monitor closely, ESR, autoimmune antibodies during last hospitalization within normal limits Constipation, Colace 100 twice daily, MiraLAX 17 g once daily, lactulose 20 g once daily will consider Fleet enema Difficulty in walking, PT OT, DANITZA, monitor urine output, CPK level,, Hypokalemia, History of CAD, History of CHF, does not look fluid overloaded, hold off on further diuresis given DANITZA, Hypertension, hold off on lisinopril, hydrochlorothiazide, Lasix, History of peripheral neuropathy continue Lyrica History of atrial fibrillation continue Eliquis, Type 2 diabetes mellitus, Lantus 10 units at bedtime, moderate dose sliding scale, NSTEMI ? No chest pain complaints, ? Cardiac echo CONCLUSIONS ?Technically difficult echo, contrast was used to assess LV ?functions. ?1.? Normal LV systolic function, LVEF normal 65%. ?2.? Normal chamber sizes. ?3.? No significant valvular abnormality noted. ?4.? IVC mildly dilated, however RV and pulmonary pressures are ?normal. ? Serial EKGs, serial troponins, telemetry monitoring, BPH continue finasteride Full code Eliquis for DVT prophylaxis Plan for today continue IV antibiotics, PT OT, 1 dose IV Lasix today, increase [place], speak with Dr. Arely Lawler Medical Necessity Statement*: Patient requires hospitalization for pneumonia, fluid overload, requiring IV diuresis IV antibiotics, continued back pain Diagnoses Spondylolisthesis at L4-L5 level M43.16 DDD (degenerative disc disease), lumbosacral M51.37 Spinal stenosis, lumbar region, with neurogenic claudication M48.062 Diabetes mellitus, type II E11.42; Z79.4 Diabetes mellitus terminal operations supervisor insulin use: with intermediate use Diabetes mellitus complication status: with neurologic complications Diabetes mellitus complication detail: with polyneuropathy BMI 40.0-44.9, adult Z68.41 Atrial fibrillation I48.91 Diabetic peripheral neuropathy associated with type 2 diabetes mellitus E11.42 Sacroiliitis M46.1 Lumbar foraminal stenosis M48.061 Acute low back pain M54.50 Acute kidney injury N17.9 Difficulty in walking R26.2 Fall W19.XXXA Left lower lobe pneumonia J18.9 Diastolic CHF, acute I50.31 Leg edema R60.0
[2023-02-23 16:46] LABS: Glucose Point of Care 413 mg/dL (70-110)
[2023-02-23 16:46] LABS: Glucose Point of Care 364 mg/dL (70-110)
[2023-02-23] MEDS: azithromycin 500 MG in sodium chloride 0.9% 250 ML 250 MG IV (17:07)
[2023-02-23] MEDS: prazosin 1 mg Capsule PO (17:07)
[2023-02-23] MEDS: atorvastatin 40 mg Tablet PO (17:07)
[2023-02-23] MEDS: HYDROcodone-acetaminophen 10-325 mg Tablet 1 TAB PO (17:20)
[2023-02-23] MEDS: insulin glargine 100 units/1 mL 10 UNIT SUBCUT (21:56)
[2023-02-23] MEDS: tamsulosin 0.4 mg Capsule PO (21:57)
[2023-02-23] MEDS: cefTRIAXone 1,000 MG in sodium chloride 0.9% (plus) 50 ML 100 MG IV (21:57)
[2023-02-24] VITALS (8 sets, daily range): BP systolic 146–169; BP diastolic 70–99; PULSE 87–94; RESP 16–18; TEMP 36.5–37.1; O2SAT 93–96
[2023-02-24 08:28] LABS: Alanine Aminotransferase 18 U/L (0-41); Albumin Level 2.5 g/dL (3.5-5.2); Alkaline Phosphatase 86 U/L (40-130); Anion Gap 18.2 (5-19); Aspartate Amino Transferase 27 U/L (0-40); Blood Urea Nitrogen 57 mg/dL (8-23); C Reactive Protein 213.1 mg/L (0.0-4.9); Calcium 9.1 mg/dL (8.5-10.5); Carbon Dioxide 28 mmol/L (22-29); Chloride 92 mmol/L (98-107); Globulin 3.4 g/dL (1.3-4.6); Glucose 216 mg/dL (65-115); Magnesium 2.5 mg/dL (1.7-2.3); NT Pro B Type Natriuretic Pept 3883 pg/mL (0-125); Osmolality Calculated 302 mOsm/kg (285-295); Phosphorus 4.5 mg/dL (2.5-4.5); Potassium 3.2 mmol/L (3.5-5.1); Procalcitonin 0.78 ng/mL (0-0.5); Sodium 135 mmol/L (136-145); Total Bilirubin 0.3 mg/dL (0.15-1.2); Total Protein 5.9 g/dL (6.6-8.7)
[2023-02-24 09:19] LABS: Basophils % 0.3 %; Eosinophils # 0.1 10^3/uL (0.0-0.8); Eosinophils % 0.8 %; Hematocrit 44.2 % (37-53); Lymphocytes # 1.7 10^3/uL (0.8-4.8); Lymphocytes % 15.5 %; Mean Corpuscular HGB Conc 32.1 g/dL (30-55); Mean Corpuscular Hemoglobin 27.5 pg (27-33); Mean Corpuscular Volume 85.7 fl (82-101); Mean Platelet Volume 11.5 fL (7.4-10.4); Monocytes # 0.9 10^3/uL (0.2-0.9); Monocytes % 7.9 %; Neutrophils # 8.22 10^3/uL (1.8-7.7); Nucleated Red Blood Cells % 0 %; Platelet Count 166 10^3/cmm (157-399); Red Blood Count 5.16 10^6/uL (3.85-5.65); Red Cell Distribution Width 13.7 % (12.1-15.1); White Blood Count 10.95 10^3/uL (3.29-11.43)
[2023-02-24] MEDS: thiamine 100 mg Tablet PO (10:05)
[2023-02-24] MEDS: finasteride 5 mg Tablet PO (10:06)
[2023-02-24] MEDS: pregabalin 150 mg Capsule 300 MG PO ×2 (10:06→18:13)
[2023-02-24] MEDS: allopurinol 300 mg Tablet PO (10:12)
[2023-02-24] MEDS: magnesium oxide 400 mg tablet PO (10:12)
[2023-02-24] MEDS: docusate sodium 100 mg Capsule PO ×2 (10:12→18:15)
[2023-02-24] MEDS: potassium chloride ER 20 mEq Tablet 40 MEQ PO (10:13)
[2023-02-24] MEDS: HYDROcodone-acetaminophen 10-325 mg Tablet 1 TAB PO ×3 (10:13→23:03)
[2023-02-24] MEDS: insulin lispro 100 unit/1 mL SUBCUT ×3 (10:14→18:15)
[2023-02-24] MEDS: zinc oxide oint 30 gm TOPICAL (10:15)
[2023-02-24] MEDS: polyethylene glycol 3350 Pkt 17 gm PO (10:16)
[2023-02-24] MEDS: apixaban 5 mg Tablet PO ×2 (10:28→23:03)
[2023-02-24] MEDS: duloxetine 30 mg Capsule PO (10:28)
[2023-02-24] MEDS: albumin 25 G/100 ML BAG 60 G IV ×2 (10:29→22:21)
[2023-02-24] MEDS: metOLazone 5 MG Tablet PO (10:29)
[2023-02-24] MEDS: FUROsemide 10 mg/mL SDV 4mL 40 MG IVP ×2 (10:29→18:14)
--- NOTE | 2023-02-24 12:46 | PM.CONSULT ---
Providers/Reason For Consult Consulting Physician/Specialty*: Orthopedic spine Reason for Consult*: Back Pain and Leg Weakness Attending Physician: Jone Pastor MD Primary Care Provider: Jessica Bui MD History of Present Illness History of Present Illness Giles Guillaume is a 73 year old male whose had a long history of back pain and leg weakness. He is well-known to our practice as we have seen him before due to his lumbar stenosis and degenerative disc disease in lumbar spine. Recently he was admitted to the hospital for continued pain and weakness. He has an extensive history of pain with increased history of falls. He does have history of stasis ulcers on his legs as well. He is diabetic. He is on anticoagulants with a pacemaker. He denies any changes in his pain just seems to be more frequent. Denies any loss of bowel or bladder control. He finds it difficult to staying active with exercise has been through physical therapy but feels like he gets weaker when he is not staying active. He is unable to go consistently because [facility] for him. He denies any loss of bowel or bladder control. Ranks the pain as 6 out of 10 on the pain scale localized to his back with weakness traveling down both legs. Review of Systems Const: Denies: fever(s) Eyes: Denies: change in vision Card: Denies: chest pain Resp: Denies: dyspnea GI: Denies: abdominal pain : Denies: flank pain Musc: Reports: back pain and muscle weakness Neuro: Reports: weakness in extremities; Denies: headache(s) Medications/Allergies Home Medications Medication Instructions Recorded Confirmed Last Taken Type apixaban 5 mg tablet (Eliquis) 5 mg PO BID 30 days #60 tabs 07/04/21 02/20/23 06/25/21 Rx finasteride 5 mg tablet 5 mg PO DAILY 30 days #30 tabs 07/04/21 02/20/23 10/31/19 Rx tamsulosin 0.4 mg capsule 0.4 mg PO BEDTIME 30 days #30 caps 07/04/21 02/20/23 06/24/21 Rx [place] afo to right #1 ea 08/05/21 02/20/23 Unknown Rx Diabetic Shoes with 3 pairs of #1 ea 06/18/22 02/20/23 Unknown Rx inserts Silver Alginate Dressing and 2 #1 ea 08/06/22 02/20/23 Unknown Rx Layer Compression System Wraps pentoxifylline 400 mg 400 mg PO DAILY 08/14/22 02/20/23 02/20/23 History tablet,extended release pregabalin 300 mg capsule (Lyrica) 300 mg PO BID 08/14/22 02/20/23 Unknown History potassium chloride 20 mEq 40 meq (2 x 20 mEq) PO DAILY #60 08/16/22 02/20/23 Unknown Rx tablet,extended release tabs allopurinol 300 mg tablet 300 mg PO DAILY 12/19/22 02/20/23 Unknown History bumetanide 2 mg tablet 2 mg PO DAILY 12/19/22 02/20/23 Unknown History duloxetine 30 mg capsule,delayed 30 mg PO DAILY 12/19/22 02/20/23 Unknown History release empagliflozin 25 mg tablet 25 mg PO DAILY 12/19/22 02/20/23 Unknown History hydrochlorothiazide 25 mg tablet 25 mg PO DAILY 12/19/22 02/20/23 Unknown History insulin glargine 100 unit/mL (3 50 unit SUBCUT BEDTIME 12/19/22 02/20/23 Unknown History mL) subcutaneous pen lisinopril 40 mg tablet 40 mg PO DAILY 12/19/22 02/20/23 Unknown History magnesium oxide 400 mg PO DAILY 12/19/22 02/20/23 Unknown History polyethylene glycol 3350 17 4 g PO DAILY 12/19/22 02/20/23 Unknown History gram/dose oral powder (Miralax) prazosin 1 mg capsule 1 mg PO QPM 12/19/22 02/20/23 Unknown History rosuvastatin 10 mg tablet 10 mg PO QPM 12/19/22 02/20/23 Unknown History semaglutide 1 mg/dose (2 mg/1.5 1 mg SUBCUT Q7D 12/19/22 02/20/23 Unknown History mL) subcutaneous pen injector thiamine HCl (vitamin B1) 100 mg 100 mg PO DAILY 12/19/22 02/20/23 Unknown History tablet zinc oxide 40 % topical ointment 1 applic topical DAILY 12/19/22 02/20/23 Unknown History 2 Layer Compression Bandage #1 ea 01/22/23 02/20/23 Unknown Rx System- Coflex TLC LITE Calamine with Indicators 4 in x6 yard/4 in by 7 yard Allergies Allergy/AdvReac Type Severity Reaction Status Date / Time aspirin Allergy ALGY-Anaphy Verified 01/21/23 13:20 laxis carvedilol AdvReac diarrhea Verified 01/21/23 13:20 hydralazine AdvReac vomiting Verified 01/21/23 13:20 Current Medications Generic Name Dose Route Start Last Admin Trade Name Freq PRN Reason Stop Dose Admin Acetaminophen 650 mg 02/20/23 16:20 02/21/23 07:55 Acetaminophen 325 Mg Tablet PO 650 mg Q6H PRN Administration Mild/Mod Pain Or Temp >/= 101 Hydrocodone Bitart/Acetaminophen 1 tab 02/23/23 16:39 02/24/23 10:13 Hydrocodone-Acetaminophen 10-325 Mg Tablet PO 1 tab Q4H PRN Administration MODERATE PAIN Allopurinol 300 mg 02/21/23 09:00 02/24/23 10:12 Allopurinol 300 Mg Tablet PO 300 mg DAILY LC Administration Apixaban 5 mg 02/20/23 21:00 02/24/23 10:28 Apixaban 5 Mg Tablet PO 5 mg BID@0900,2100 LC Administration Atorvastatin Calcium 40 mg 02/20/23 19:00 02/23/23 17:07 Atorvastatin 40 Mg Tablet PO 40 mg QPM LC Administration Docusate Sodium 100 mg 02/22/23 11:30 02/24/23 10:12 Docusate Sodium 100 Mg Capsule PO 100 mg BID LC Administration Duloxetine HCl 30 mg 02/21/23 09:00 02/24/23 10:28 Duloxetine 30 Mg Capsule PO 30 mg DAILY LC Administration Finasteride 5 mg 02/21/23 09:00 02/24/23 10:06 Finasteride 5 Mg Tablet PO 5 mg DAILY LC Administration Ceftriaxone Sodium 1,000 mg/ 50 mls @ 100 mls/hr 02/21/23 16:15 02/23/23 23:23 Sodium Chloride IV Infused Q24H LC Infusion Protocol Azithromycin 500 mg/ Sodium 250 mls @ 250 mls/hr 02/21/23 16:15 02/23/23 18:08 Chloride IV Infused Q24H LC Infusion Protocol Lidocaine HCl 5 ml/ Potassium 105 mls @ 26.25 mls/hr 02/24/23 09:34 02/24/23 10:29 Chloride IV 02/24/23 13:33 Not Given ONCE ONE Albumin Human 25 g in 100 mls @ 60 mls/hr 02/24/23 09:45 02/24/23 12:34 Albumin IV 02/24/23 23:24 Infused Q12H LC Infusion Insulin Glargine 10 unit 02/20/23 21:00 02/23/23 21:56 Insulin Glargine 100 Units/1 Ml SUBCUT 10 unit BEDTIME LC Administration Insulin Human Lispro 0 unit 02/20/23 18:18 02/24/23 10:14 Insulin Lispro 100 Unit/1 Ml SUBCUT 4 unit TIDWM LC Administration Protocol Lactulose 20 gm 02/22/23 13:30 02/23/23 13:02 Lactulose Oral Liq 20 Gm/30 Ml Udc PO Not Given Q24H LC Magnesium Oxide 400 mg 02/21/23 09:00 02/24/23 10:12 Magnesium Oxide 400 Mg Tablet PO 400 mg DAILY LC Administration Pantoprazole Sodium 40 mg 02/20/23 16:30 02/23/23 18:40 Pantoprazole 40 Mg Sdv IVP Not Given Q24H LC Polyethylene Glycol 17 gm 02/22/23 11:30 02/24/23 10:16 Polyethylene Glycol 3350 Pkt 17 Gm PO 17 gm DAILY LC Administration Potassium Chloride 40 meq 02/21/23 09:00 02/24/23 10:13 Potassium Chloride Er 20 Meq Tablet PO 40 meq DAILY LC Administration Prazosin HCl 1 mg 02/20/23 18:18 02/23/23 17:07 Prazosin 1 Mg Capsule PO 1 mg QPM LC Administration Pregabalin 300 mg 02/20/23 19:00 02/24/23 10:06 Pregabalin 150 Mg Capsule PO 300 mg BID LC Administration Tamsulosin HCl 0.4 mg 02/20/23 21:00 02/23/23 21:57 Tamsulosin 0.4 Mg Capsule PO 0.4 mg BEDTIME LC Administration Thiamine Mononitrate 100 mg 02/21/23 09:00 02/24/23 10:05 Thiamine 100 Mg Tablet PO 100 mg DAILY LC Administration Zinc Oxide 0 applic 02/21/23 09:00 02/24/23 10:15 Zinc Oxide Oint 30 Gm TOPICAL 1 applic DAILY LC Administration PFSH Acute PFSH: Medical History Abnormal nuclear stress test Accelerated hypertension Acute kidney injury Acute on chronic diastolic (congestive) heart failure Atrial fibrillation Chronic, history of bradycardia with beta blockers, on eliquis Atrial fibrillation Atrial fibrillation Bilateral lower leg cellulitis BMI 40.0-44.9, adult BPH NOS w/o ur obs/LUTS Bradycardia Calculus of proximal ureter CHF exacerbation Chronic anticoagulation eliquis Chronic diastolic heart failure Chronic kidney disease CKD (chronic kidney disease) Congestive heart failure Constipation Coronary artery disease Evaluated in [place], patient reports 55% narrowing unknown vessel no stent or angioplasty done CVA (cerebral vascular accident) residual right weakness Diabetes mellitus, type II Diabetic neuropathy associated with type 2 diabetes mellitus Gout attack Hyperkalemia Hyperlipidemia Hypertension Hypokalemia Ischemic toe ulcer Lumbar foraminal stenosis Nicotine dependence, chewing tobacco, with other nicotine-induced disorders Obesity BMI-42 kg/m2 Obstructive sleep apnea not on treatment by choice Osteoarthritis PAD (peripheral artery disease) Peripheral arterial disease Pes planus of both feet Physical deconditioning PVD (peripheral vascular disease) Renal calculus, right Rhabdomyolysis Squamous cell carcinoma in situ Swelling of right upper extremity Temporary transvenous cardiac pacemaker present Surgical History Hx of colonoscopy with polypectomy No pertinent past surgical history Status post cardiac pacemaker procedure Family History Mother , 87 Diabetes CAD (coronary artery disease) Hypertension Father , 60 No problems noted. Social History Smoking and tobacco/nicotine status: current every day tobacco/nicotine user (chew tobacco) pipe Pipes smoked per week: 1 Years smoked pipe: 54 and smokeless tobacco Smokeless tobacco user: chewing tobacco Alcohol intake: former Year of sobriety/quit date alcohol: 26 y Former alcohol use details: heavy use, 5 DWI's Substance/Drug Use: former Household members: none Housing: House Marital status: service: Yes Current occupational status: retired Vitals/I&O/Wt Last Vital Signs Temp 98.1 F 02/24/23 08:00 Pulse 87 02/24/23 08:11 Resp 18 02/24/23 08:11 BP 169/99 02/24/23 08:00 Pulse Ox 93 02/24/23 08:11 O2 Del Method Room Air 02/24/23 08:11 02/23/23 02/24/23 02/24/23 22:59 06:59 14:59 Intake Total 730 / 1810 50 / 1860 340 / 340 Output Total 1850 / 2100 550 / 550 Balance -1120 / -290 50 / -240 -210 / -210 Weight last 48 hrs Weight 319 lb 3.2 oz Physical Exam Narrative: Patient is alert orient x3 has a good general appearance normal mood and affect. Patient presents with antalgic unsteady gait. He is morbidly obese. Demonstrates dorsiflexion and plantarflexion with difficulty. Moderate palpatory and percussion pain throughout the paraspinous musculature of the thoracolumbar spine. Decreased sensation light touch down both lower extremities with 4/5 motor strength throughout all motor groups. No palpable pain over the SI joints bilaterally. Negative Reese and Fabere sign. Negative straight leg raise bilaterally. Skin is clear warm with normal sensation to light touch, calves are supple with no medial thigh tenderness, negative Homans' sign. Hyperpigmented areas to the lower legs. No palpable lymphadenopathy bilaterally. Reflexes are 1+ and symmetric about the knees and Achilles. No hyperreflexia or clonus. Downgoing Babinski's bilaterally. Dorsalis pedis and posterior tibial pulses are weak but palpable. No palpable edema bilaterally. HENMT: COMMON NORMALS: normocephalic HEAD & SCALP: normocephalic Resp: COMMON NORMALS: normal respiratory effort Cardio: COMMON NORMALS: regular rate and regular rhythm RATE: regular rate RHYTHM: regular rhythm GI: COMMON NORMALS: Soft to palpation and non-tender PALPATION: Yes Soft to palpation : COMMON NORMALS: Yes no CVA tenderness BLADDER/KIDNEY EXAM: Yes no CVA tenderness Back/Pelvis: COMMON NORMALS: no CVA tenderness Psych: COMMON NORMALS: mental status grossly normal and cooperative Data 02/24/23 05:40 02/24/23 05:[address]: Radiologist's impression: CT/CT lumbar spine wo con* [id number] IMPRESSION: 1. L2-L3 broad-based disc bulge with moderate spinal canal and moderate to severe bilateral foraminal narrowing, similar to prior exam. 2. L3-L4 broad-based disc bulge with moderate spinal canal and severe bilateral foraminal narrowing, similar to prior exam. 3. L4-L5 broad-based disc bulge with moderate to severe spinal canal narrowing and severe bilateral foraminal narrowing, similar to prior exam. With comparable study as of 02/20/2023. A&P Assessment and plan (1) Spinal stenosis, lumbar region, with neurogenic claudication: Discussed the previous radiographs with him at length. He does not want any surgical intervention. He has a pacemaker and is unable to have an MRI scan. We will continue with physical therapy. Discussed with him outpatient pain management for consideration of injections. We will follow him in the office. Encouraged water therapy as long as his stasis ulcers have healed. More than 50% of the time spent with the patient today involved coordination of care, counseling and discussion of conservative versus surgical treatment options. Total amount of time spent with the patient was 45 minutes. (2) DDD (degenerative disc disease), lumbosacral: (3) Spondylolisthesis at L4-L5 level: Coding Level of Care Code Acute Code for [facility] Diagnoses Spinal stenosis, lumbar region, with neurogenic claudication M48.062 DDD (degenerative disc disease), lumbosacral M51.37 Spondylolisthesis at L4-L5 level M43.16 Time Spent (min) 45
--- NOTE | 2023-02-24 13:39 | PM.PN ---
Subjective Subjective: Patient was seen this morning, he tells me that he has not had a bowel movement, continues to have lower back pain, lower extremity weakness, no fevers, no chills, no nausea, no vomiting, does have lower extremity edema, he feels its better, does report shortness of breath Vitals/I&O/Wt Last Vital Signs Temp 98.1 F 02/24/23 08:00 Pulse 87 02/24/23 08:11 Resp 18 02/24/23 08:11 BP 169/99 02/24/23 08:00 Pulse Ox 93 02/24/23 08:11 O2 Del Method Room Air 02/24/23 08:11 02/23/23 02/24/23 02/24/23 22:59 06:59 14:59 Intake Total 730 / 1810 50 / 1860 340 / 340 Output Total 1850 / 2100 550 / 550 Balance -1120 / -290 50 / -240 -210 / -210 Weight last 48 hrs Weight 144.787 kg Physical Exam Const: COMMON NORMALS: no acute distress and patient oriented x3 Resp: COMMON NORMALS: normal respiratory effort, No retractions, No use of accessory muscles and clear to auscultation bilaterally AUSCULTATION: clear to auscultation bilaterally Cardio: COMMON NORMALS: regular rate, regular rhythm, S1 normal heart sound present and S2 normal heart sound present RATE: regular rate RHYTHM: regular rhythm HEART SOUNDS: S1 normal heart sound present and S2 normal heart sound present GI: COMMON NORMALS: Normal to inspection, nondistended, normoactive bowel sounds present and non-tender Extremity: NARRATIVE EXTREMITY EXAM: 2+ pitting edema Neuro: COMMON NORMALS: patient oriented x3 Psych: COMMON NORMALS: mental status grossly normal Data 02/24/23 05:40 02/24/23 05:40 A&P Assessment and plan (1) Spondylolisthesis at L4-L5 level: (2) DDD (degenerative disc disease), lumbosacral: (3) Spinal stenosis, lumbar region, with neurogenic claudication: (4) Diabetes mellitus, type II: Qualifiers: Diabetes mellitus terminal system operator insulin use: with terminal system operator use Diabetes mellitus complication status: with neurologic complications Diabetes mellitus complication detail: with polyneuropathy Qualified Code(s): E11.42 - Type 2 diabetes mellitus with diabetic polyneuropathy; Z79.4 - rodent exterminator (current) use of 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 Consolidation left lower lobe on chest x-ray, ? Pro-Jose 0.99, CRP to 35.5, with fevers throughout the night, afebrile for the last 48 hours ? Currently afebrile ? Plan, ? Continue Rocephin, azithromycin, ? Sputum cultures, ? Blood cultures, ? Respiratory viral panel, negative ? Monitor respiratory status closely, ?, Treat fevers Diastolic CHF, acute, with lower extremity edema, ? Fluid restriction 1000 cc, BNP over 3000, 2 doses of IV Lasix with metolazone today, Acute low back pain, ? With history of spinal stenosis, neurogenic claudication, acute on chronic bilateral extremity pain, acute on chronic lower back pain, ? Acute on chronic weakness in bilateral extremities ? Plan to ? PT OT, ? Has persistent back pain increase hydrocodone to 10 mg every 4 hours as needed for pain ? We will discuss with Dr. cabrera ? Continue to monitor closely, ESR, autoimmune antibodies during last hospitalization within normal limits Constipation, Colace 100 twice daily, MiraLAX 17 g once daily, lactulose 20 g once daily will consider Fleet enema Difficulty in walking, PT OT, DANITZA, monitor urine output, CPK level,, Hypokalemia, History of CAD, History of CHF, does not look fluid overloaded, hold off on further diuresis given DANITZA, Hypertension, hold off on lisinopril, hydrochlorothiazide, Lasix, History of peripheral neuropathy continue Lyrica History of atrial fibrillation continue Eliquis, Type 2 diabetes mellitus, Lantus 10 units at bedtime, moderate dose sliding scale, NSTEMI ? No chest pain complaints, ? Cardiac echo CONCLUSIONS ?Technically difficult echo, contrast was used to assess LV ?functions. ?1.? Normal LV systolic function, LVEF normal 65%. ?2.? Normal chamber sizes. ?3.? No significant valvular abnormality noted. ?4.? IVC mildly dilated, however RV and pulmonary pressures are ?normal. ? Serial EKGs, serial troponins, telemetry monitoring, BPH continue finasteride Full code Eliquis for DVT prophylaxis Plan for today continue IV antibiotics, PT OT, continue IV diuresis, Attestations Medical Necessity Statement*: Patient requires hospitalization for fluid overload, requiring IV diuresis, pneumonia, Diagnoses Spondylolisthesis at L4-L5 level M43.16 DDD (degenerative disc disease), lumbosacral M51.37 Spinal stenosis, lumbar region, with neurogenic claudication M48.062 Type 2 diabetes mellitus with diabetic polyneuropathy, with long-term current use of insulin E11.42; Z79.4 Diabetes mellitus terminal system operator insulin use: with terminal system operator use Diabetes mellitus complication status: with neurologic complications Diabetes mellitus complication detail: with polyneuropathy BMI 40.0-44.9, adult Z68.41 Longstanding persistent atrial fibrillation I48.91 Diabetic peripheral neuropathy associated with type 2 diabetes mellitus E11.42 Sacroiliitis M46.1 Lumbar foraminal stenosis M48.061 Acute low back pain M54.50 Acute kidney injury N17.9 Difficulty in walking R26.2 Fall W19.XXXA Left lower lobe pneumonia J18.9 Diastolic CHF, acute I50.31 Leg edema R60.0
[2023-02-24 14:14] LABS: Glucose Point of Care 348 mg/dL (70-110)
[2023-02-24] MEDS: lactulose oral liq 20 gm/30 mL UDC PO (14:21)
[2023-02-24 16:41] LABS: Glucose Point of Care 257 mg/dL (70-110)
[2023-02-24] MEDS: prazosin 1 mg Capsule PO (18:13)
[2023-02-24] MEDS: pantoprazole 40 mg SDV IVP (18:14)
[2023-02-24] MEDS: atorvastatin 40 mg Tablet PO (18:15)
[2023-02-24] MEDS: azithromycin 500 MG in sodium chloride 0.9% 250 ML 250 MG IV (18:16)
[2023-02-24] MEDS: cefTRIAXone 1,000 MG in sodium chloride 0.9% (plus) 50 ML 100 MG IV (21:13)
[2023-02-24] MEDS: insulin glargine 100 units/1 mL 10 UNIT SUBCUT (23:03)
[2023-02-24] MEDS: tamsulosin 0.4 mg Capsule PO (23:03)
[2023-02-25] VITALS (13 sets, daily range): BP systolic 120–185; BP diastolic 74–89; PULSE 77–109; RESP 15–19; TEMP 36.4–36.9; O2SAT 90–97
[2023-02-25 06:41] LABS: Basophils % 0.3 %; Eosinophils # 0.1 10^3/uL (0.0-0.8); Eosinophils % 0.8 %; Hematocrit 43.9 % (37-53); Lymphocytes # 1.6 10^3/uL (0.8-4.8); Lymphocytes % 14.8 %; Mean Corpuscular HGB Conc 32.1 g/dL (30-55); Mean Corpuscular Hemoglobin 27.3 pg (27-33); Mean Corpuscular Volume 84.9 fl (82-101); Mean Platelet Volume 11.3 fL (7.4-10.4); Monocytes # 0.8 10^3/uL (0.2-0.9); Monocytes % 7.4 %; Neutrophils % 76.1 %; Nucleated Red Blood Cells % 0 %; Platelet Count 153 10^3/cmm (157-399); Red Blood Count 5.17 10^6/uL (3.85-5.65); Red Cell Distribution Width 13.7 % (12.1-15.1); White Blood Count 10.91 10^3/uL (3.29-11.43)
[2023-02-25 07:02] LABS: Alanine Aminotransferase 27 U/L (0-41); Albumin Level 3.4 g/dL (3.5-5.2); Alkaline Phosphatase 86 U/L (40-130); Aspartate Amino Transferase 36 U/L (0-40); Blood Urea Nitrogen 57 mg/dL (8-23); Calcium 9.3 mg/dL (8.5-10.5); Carbon Dioxide 31 mmol/L (22-29); Chloride 90 mmol/L (98-107); Globulin 2.8 g/dL (1.3-4.6); Glucose 255 mg/dL (65-115); Magnesium 2.4 mg/dL (1.7-2.3); Osmolality Calculated 305 mOsm/kg (285-295); Phosphorus 4.4 mg/dL (2.5-4.5); Sodium 135 mmol/L (136-145); Total Bilirubin 0.4 mg/dL (0.15-1.2); Total Protein 6.2 g/dL (6.6-8.7)
[2023-02-25 07:15] LABS: Anion Gap 17.2 (5-19); Potassium 3.2 mmol/L (3.5-5.1)
[2023-02-25 07:16] LABS: Glucose Point of Care 236 mg/dL (70-110)
[2023-02-25] MEDS: polyethylene glycol 3350 Pkt 17 gm PO (10:04)
[2023-02-25] MEDS: metOLazone 5 MG Tablet PO (10:04)
[2023-02-25] MEDS: insulin lispro 100 unit/1 mL SUBCUT ×3 (10:04→17:29)
[2023-02-25] MEDS: finasteride 5 mg Tablet PO (10:04)
[2023-02-25] MEDS: magnesium oxide 400 mg tablet PO (10:04)
[2023-02-25] MEDS: duloxetine 30 mg Capsule PO (10:05)
[2023-02-25] MEDS: thiamine 100 mg Tablet PO (10:05)
[2023-02-25] MEDS: zinc oxide oint 30 gm TOPICAL (10:05)
[2023-02-25] MEDS: apixaban 5 mg Tablet PO ×2 (10:05→20:47)
[2023-02-25] MEDS: pregabalin 150 mg Capsule 300 MG PO ×2 (10:05→17:29)
[2023-02-25] MEDS: allopurinol 300 mg Tablet PO (10:05)
[2023-02-25] MEDS: potassium chloride ER 20 mEq Tablet 40 MEQ PO (10:05)
[2023-02-25] MEDS: docusate sodium 100 mg Capsule PO ×2 (10:05→17:29)
[2023-02-25] MEDS: albumin 25 G/100 ML BAG 60 G IV (10:06)
--- NOTE | 2023-02-25 10:43 | PC.NURSE ---
This nurse called pharmacy at 959am to ask for lidocaine to be stocked for potassium. Med will be administered late due to pharmacy delay.
[2023-02-25] MEDS: FUROsemide 10 mg/mL SDV 4mL 40 MG IVP (10:53)
[2023-02-25] MEDS: HYDROcodone-acetaminophen 10-325 mg Tablet 1 TAB PO (11:00)
[2023-02-25] MEDS: lidocaine 1% 5 ML in potassium chloride premix 100 ML 26.25 ML IV (11:00)
[2023-02-25 11:51] LABS: Glucose Point of Care 237 mg/dL (70-110)
--- NOTE | 2023-02-25 13:52 | P.PN_ITS ---
Subjective 2 Subjective: Patient was seen this morning, he tells me that the hydrocodone is not helping with his back pain, he would like to try Percocet, does report lower extremity edema improving, no fevers, chills, no cough Vitals/I&O/Wt Last Vital Signs Temp 98.2 F 02/25/23 12:00 Pulse 109 H 02/25/23 12:00 Resp 16 02/25/23 12:00 BP 120/82 02/25/23 12:00 Pulse Ox 97 02/25/23 12:00 O2 Del Method Room Air 02/25/23 08:53 02/24/23 02/25/23 02/25/23 22:59 06:59 14:59 Intake Total 730 / 1310 200 / 1510 100 / 100 Output Total 1550 / 2450 800 / 3250 1100 / 1100 Balance -820 / -1140 -600 / -1740 -1000 / -1000 Weight last 48 hrs Weight 136.786 kg Physical Exam 2 Const: COMMON NORMALS: no acute distress and patient oriented x3 Resp: COMMON NORMALS: normal respiratory effort, No retractions, No use of accessory muscles and clear to auscultation bilaterally AUSCULTATION: clear to auscultation bilaterally Cardio: COMMON NORMALS: regular rate, regular rhythm, S1 normal heart sound present and S2 normal heart sound present RATE: regular rate RHYTHM: r egular rhythm HEART SOUNDS: S1 normal heart sound present and S2 normal heart sound present GI: COMMON NORMALS: Normal to inspection, nondistended, normoactive bowel sounds present and non-tender Extremity: NARRATIVE EXTREMITY EXAM: 1+ pitting edema Neuro: COMMON NORMALS: patient oriented x3 Psych: COMMON NORMALS: mental status grossly normal Data 02/25/23 05:50 02/25/23 05:50 A&P Assessment and plan (1) Spondylolisthesis at L4-L5 level: (2) DDD (degenerative disc disease), lumbosacral: (3) Spinal stenosis, lumbar region, with neurogenic claudication: (4) Diabetes mellitus, type II: Qualifiers: Diabetes mellitus watermelon harvesting supervisor insulin use: with watermelon harvesting supervisor use Diabetes mellitus complication status: with neurologic complications Diabetes mellitus complication detail: with polyneuropathy Qualified Code(s): E11.42 - Type 2 diabetes mellitus with diabetic polyneuropathy; Z79.4 - half-way (current) use of 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 Consolidation left lower lobe on chest x-ray, ? Pro-Jose 0.99, CRP to 35.5, with fevers throughout the night, afebrile for the last 48 hours ? Currently afebrile ? Plan, ? De-escalate to doxycycline p.o. ? Sputum cultures, ? Blood cultures, ? Respiratory viral panel, negative ? Monitor respiratory status closely, ?, Treat fevers Diastolic CHF, acute, with lower extremity edema, ? Fluid restriction 1000 cc, BNP over 3000, 1 dose of IV Lasix, with albumin, with metolazone, creatinine 2.0 Acute low back pain, ? With history of spinal stenosis, neurogenic claudication, acute on chronic bilateral extremity pain, acute on chronic lower back pain, ? Acute on chronic weakness in bilateral extremities ? Plan to ? PT OT, ? Has persistent back pain increase hydrocodone to 10 mg every 4 hours as needed for pain ? We will discuss with Dr. cabrera ? Continue to monitor closely, ESR, autoimmune antibodies during last hospitalization within normal limits Constipation, Colace 100 twice daily, MiraLAX 17 g once daily, lactulose 20 g once daily will consider Fleet enema Difficulty in walking, PT OT, DANITZA, monitor urine output, CPK level,, Hypokalemia, History of CAD, History of CHF, does not look fluid overloaded, hold off on further diuresis given DANITZA, Hypertension, hold off on lisinopril, hydrochlorothiazide, Lasix, History of peripheral neuropathy continue Lyrica History of atrial fibrillation continue Eliquis, Type 2 diabetes mellitus, Lantus 10 units at bedtime, moderate dose sliding scale, NSTEMI ? No chest pain complaints, ? Cardiac echo CONCLUSIONS ?Technically difficult echo, contrast was used to assess LV ?functions. ?1.? Normal LV systolic function, LVEF normal 65%. ?2.? Normal chamber sizes. ?3.? No significant valvular abnormality noted. ?4.? IVC mildly dilated, however RV and pulmonary pressures are ?normal. ? Serial EKGs, serial troponins, telemetry monitoring, BPH continue finasteride Full code Eliquis for DVT prophylaxis Plan for today PT OT,, continue diuretics Attestations 2 Medical Necessity Statement*: Patient requires hospitalization for diuresis Diagnoses Spondylolisthesis at L4-L5 level M43.16 DDD (degenerative disc disease), lumbosacral M51.37 Spinal stenosis, lumbar region, with neurogenic claudication M48.062 Type 2 diabetes mellitus with diabetic polyneuropathy, with long-term current use of insulin E11.42; Z79.4 Diabetes mellitus watermelon harvesting supervisor insulin use: with care home use Diabetes mellitus complication status: with neurologic complications Diabetes mellitus complication detail: with polyneuropathy BMI 40.0-44.9, adult Z68.41 Longstanding persistent atrial fibrillation I48.91 Diabetic peripheral neuropathy associated with type 2 diabetes mellitus E11.42 Sacroiliitis M46.1 Lumbar foraminal stenosis M48.061 Acute low back pain M54.50 Acute kidney injury N17.9 Difficulty in walking R26.2 Fall W19.XXXA Left lower lobe pneumonia J18.9 Diastolic CHF, acute I50.31 Leg edema R60.0
[2023-02-25] MEDS: oxyCODONE 5 mg IR Tab/Cap PO ×2 (14:09→18:34)
[2023-02-25] MEDS: doxycycline 100 mg Tablet PO ×2 (14:09→17:29)
--- NOTE | 2023-02-25 14:37 | PC.SOCIAL ---
IMM update pg 2 of IMM updated and reviewed w/ patient. Copy provided and copy dated, initialed and placed in chart.
[2023-02-25 17:12] LABS: Glucose Point of Care 273 mg/dL (70-110)
[2023-02-25] MEDS: atorvastatin 40 mg Tablet PO (17:29)
[2023-02-25] MEDS: pantoprazole DR 40 mg Tablet PO (17:29)
[2023-02-25] MEDS: prazosin 1 mg Capsule PO (17:29)
[2023-02-25] MEDS: tamsulosin 0.4 mg Capsule PO (20:47)
[2023-02-25] MEDS: insulin glargine 100 units/1 mL 10 UNIT SUBCUT (20:48)
[2023-02-25 21:17] LABS: Glucose Point of Care 304 mg/dL (70-110)
[2023-02-26] VITALS (7 sets, daily range): BP systolic 121–151; BP diastolic 74–90; PULSE 70–91; RESP 16–19; TEMP 36.2–36.9; O2SAT 94–97; BMI 40.5
--- NOTE | 2023-02-26 00:21 | PC.NURSE ---
2000 voided 120 plus had large urine on the floor
--- NOTE | 2023-02-26 00:22 | PC.NURSE ---
2100 pt on BSC had large amount of urine on the floor
[2023-02-26 06:13] LABS: Basophils # 0.1 10^3/uL (0.0-0.1); Basophils % 0.6 %; Eosinophils # 0.3 10^3/uL (0.0-0.8); Eosinophils % 3.1 %; Hematocrit 45.6 % (37-53); Lymphocytes # 1.9 10^3/uL (0.8-4.8); Lymphocytes % 21.5 %; Mean Corpuscular HGB Conc 32.2 g/dL (30-55); Mean Corpuscular Hemoglobin 27.5 pg (27-33); Mean Corpuscular Volume 85.2 fl (82-101); Mean Platelet Volume 10.9 fL (7.4-10.4); Monocytes # 0.7 10^3/uL (0.2-0.9); Monocytes % 8.2 %; Neutrophils # 5.88 10^3/uL (1.8-7.7); Nucleated Red Blood Cells % 0 %; Platelet Count 191 10^3/cmm (157-399); Red Blood Count 5.35 10^6/uL (3.85-5.65); Red Cell Distribution Width 13.7 % (12.1-15.1); White Blood Count 8.91 10^3/uL (3.29-11.43)
[2023-02-26 06:32] LABS: Alanine Aminotransferase 20 U/L (0-41); Albumin Level 3.2 g/dL (3.5-5.2); Alkaline Phosphatase 82 U/L (40-130); Aspartate Amino Transferase 22 U/L (0-40); Blood Urea Nitrogen 64 mg/dL (8-23); Calcium 9.6 mg/dL (8.5-10.5); Carbon Dioxide 32 mmol/L (22-29); Chloride 91 mmol/L (98-107); Globulin 3.1 g/dL (1.3-4.6); Glucose 219 mg/dL (65-115); Magnesium 2.3 mg/dL (1.7-2.3); Osmolality Calculated 305 mOsm/kg (285-295); Phosphorus 4.3 mg/dL (2.5-4.5); Sodium 135 mmol/L (136-145); Total Bilirubin 0.4 mg/dL (0.15-1.2); Total Protein 6.3 g/dL (6.6-8.7)
--- NOTE | 2023-02-26 07:28 | P.PN_ITS ---
Subjective 2 Subjective: Patient resting comfortably. States he has been going through physical therapy and feels like he is improving. He denies any new injuries to his back or legs. He does continue to chew tobacco in his room. Patient states he is not wanting any surgical intervention at this time he wants to do all the conservative things he can do. Vitals/I&O/Wt Last Vital Signs Temp 98.4 F 02/26/23 03:32 Pulse 78 02/26/23 06:00 Resp 18 02/26/23 03:32 BP 121/78 02/26/23 03:32 Pulse Ox 94 02/26/23 03:32 O2 Del Method Room Air 02/26/23 03:32 02/25/23 02/26/23 02/26/23 22:59 06:59 14:59 Intake Total 345 / 445 200 / 645 Output Total 670 / 2270 500 / 2770 Balance -325 / -1825 -300 / -2125 Weight last 48 hrs Weight 301 lb 9 oz Physical Exam 2 Narrative: Patient is alert orient x3 has good general appearance normal mood normal affect. Patient is morbidly obese. Continues to chew tobacco in the hospital. Mildly tender with palpation in his lumbar spine. Wiggles both lower extremities 4/5 strength in both lower extremities. Hyperpigmented areas of his lower legs into his feet. Calves are supple. Negative straight leg raise bilaterally. Pulses are weak but palpable HENMT: COMMON NORMALS: normocephalic HEAD & SCALP: normocephalic Resp: COMMON NORMALS: normal respiratory effort Cardio: COMMON NORMALS: regular rate and regular rhythm RATE: regular rate RHYTHM: regular rhythm GI: COMMON NORMALS: Soft to palpation and non-tender PALPATION: Yes Soft to palpation : COMMON NORMALS: Yes no CVA tenderness BLADDER/KIDNEY EXAM: Yes no CVA tenderness Back/Pelvis: COMMON NORMALS: no CVA tenderness Psych: COMMON NORMALS: mental status grossly normal and cooperative OTHER: Distended but nontender Data 02/26/23 05:55 02/26/23 05:55 A&P Assessment and plan (1) Chronic venous insufficiency: Discussed at length with Mr. Guillaume the treatment course. At this point he does not want any surgical intervention. He wants to try all the conservative things possible. With that said that revolves around physical therapy if his venous stasis ulcers are resolved potential of water therapy. Discussed with him following up outpatient and setting him up with our pain management for consideration of injections facet blocks. Discussed with him to continue with a low impact exercise program. Discussed at length with him tobacco cessation. Encouraged him to continue incentive spirometry for pulmonary toilet. We will see him back in the office in follow-up in 4 to 6 weeks to check his progress and consider further conservative treatment with the pain clinic. More than 50% of the time spent with the patient today involved coordination of care, counseling and discussion of conservative versus surgical treatment options. Total amount of time spent with the patient was 25 minutes. (2) DDD (degenerative disc disease), lumbosacral: (3) Spondylolisthesis at L4-L5 level: Attestations 2 Medical Necessity Statement*: Defer to medical team Coding Level of Care Code Acute Code for Chg Fwd Diagnoses Chronic venous insufficiency I87.2 DDD (degenerative disc disease), lumbosacral M51.37 Spondylolisthesis at L4-L5 level M43.16 Time Spent (min) 25
[2023-02-26 07:55] LABS: Glucose Point of Care 243 mg/dL (70-110)
[2023-02-26] MEDS: insulin lispro 100 unit/1 mL SUBCUT ×2 (08:53→12:18)
[2023-02-26] MEDS: lidocaine 1% 5 ML in potassium chloride premix 100 ML 26.25 ML IV (08:54)
[2023-02-26] MEDS: docusate sodium 100 mg Capsule PO (08:55)
[2023-02-26] MEDS: magnesium oxide 400 mg tablet PO (08:55)
[2023-02-26] MEDS: potassium chloride ER 20 mEq Tablet 40 MEQ PO (08:55)
[2023-02-26] MEDS: oxyCODONE 5 mg IR Tab/Cap PO (08:55)
[2023-02-26] MEDS: FUROsemide 40 mg Tablet PO (08:55)
[2023-02-26] MEDS: duloxetine 30 mg Capsule PO (08:55)
[2023-02-26] MEDS: thiamine 100 mg Tablet PO (08:55)
[2023-02-26] MEDS: pregabalin 150 mg Capsule 300 MG PO (08:55)
[2023-02-26] MEDS: doxycycline 100 mg Tablet PO (08:55)
[2023-02-26] MEDS: apixaban 5 mg Tablet PO (08:55)
[2023-02-26] MEDS: finasteride 5 mg Tablet PO (08:55)
[2023-02-26] MEDS: allopurinol 300 mg Tablet PO (08:55)
[2023-02-26] MEDS: pantoprazole DR 40 mg Tablet PO (08:55)
[2023-02-26] MEDS: zinc oxide oint 30 gm TOPICAL (08:56)
--- NOTE | 2023-02-26 09:26 | P.DS_ITS ---
Discharge Providers Date of Admission: 02/20/23 15:54 Date of Discharge: February 26, 2023 Attending Provider at Admission: Jone Pastor MD Attending Provider at Discharge: Jone Pastor MD Primary Care Provider: Jessica Bui MD Diagnoses at Discharge Discharge Diagnosis (1) Chronic venous insufficiency: Status: Acute (2) DDD (degenerative disc disease), lumbosacral: Status: Acute (3) Spondylolisthesis at L4-L5 level: Status: Acute Reason for Visit Reason for Visit: weakness, knee pain Hospital Course Hospital Course Giles Guillaume is a 73 year old male with a past medical history of morbid obesity, insulin-dependent type 2 diabetes mellitus, atrial fibrillation on Eliquis, CAD, history of peripheral arterial disease, systolic CHF, history of gout, diabetic neuropathy, history of lumbar foraminal stenosis, chronic back pain, sacroiliitis, CKD, who presents to [facility] due to fall, generalized weakness, bilateral extremity weakness, low back pain. Patient has a history of L3 L5 disease with spinal canal stenosis, broad-based disc bulging, with neurogenic claudication, has seen orthopedic service as outpatient, curr ently on medical management, ambulates with a wheeled walker at home, has home health care, he tells me that he fell off his walker after trying to reach for something in the upper cupboards a few days ago, since then he has had lower back pain, difficulty with ambulation, denies any urinary incontinence, no bowel incontinence, saddle perianal anesthesia, no nausea, no vomiting, no chest pain, no palpitations no shortness of breath, his lower extremity edema he tells me he is quite minimal today, pain is primary in the lower back and does radiate from his lower back into the hips, down his legs, he tells me that its been difficult to ambulate over the last few days for his fall he denies any head trauma no loss of consciousness, patient was admitted for Left lower lobe pneumonia ? Consolidation left lower lobe on chest x-ray, ? Pro-Jose 0.99, CRP to 35.5, ? managed with IV abx ? remained afebrile, cultures negative ? Ddischagred doxycycline p.o. Diastolic CHF, acute, with lower extremity edema, received inpatient diureses ? Fluid restriction 1000 cc, BNP over 3000, received IV diureses -discharged on diuretic therapy Acute low back pain, ? With history of spinal stenosis, neurogenic claudication, acute on chronic bilateral extremity pain, acute on chronic lower back pain, ? Acute on chronic weakness in bilateral extremities ? PT OT, ? Has persistent back pain , discharged oxycodone 5mg q4hrs PRN ? seen by Dr. cabrera, will medically manage ? discharge on PTOT, to jail Constipation, Colace 100 twice daily, MiraLAX 17 g once daily, lactulose 20 g once daily will consider Fleet enema Difficulty in walking, PT OT, DANITZA, History of CAD, History of peripheral neuropathy continue Lyrica History of atrial fibrillation continue Eliquis, Type 2 diabetes mellitus, Lantus 10 units at bedtime, moderate dose sliding scale, Physical Exam Const: COMMON NORMALS: no acute distress and patient oriented x3 Resp: COMMON NORMALS: normal respiratory effort, No retractions, No use of accessory muscles and clear to auscultation bilaterally AUSCULTATION: clear to auscultation bilaterally Cardio: COMMON NORMALS: regular rate, regular rhythm, S1 normal heart sound present and S2 normal heart sound present RATE: regular rate RHYTHM: regular rhythm HEART SOUNDS: S1 normal heart sound present and S2 normal heart sound present GI: COMMON NORMALS: Normal to inspection, nondistended, normoactive bowel sounds present, Soft to palpation and non-tender PALPATION: Yes Soft to palpation Extremity: COMMON NORMALS: no pedal edema Neuro: COMMON NORMALS: patient oriented x3 Psych: COMMON NORMALS: mental status grossly normal Discharge Data Studies Completed and Pending Completed Studies During Hospitalization Category Date Time Status CT lumbar spine wo con* [id number] Stat Cat Scan 02/20/23 14:23 Completed XR chest 1V portable [id number] Routine Exams 02/21/23 09:30 Completed XR chest 1V portable [id number] Routine Exams 02/23/23 16:28 Completed XR chest 1V portable [id number] Stat Exams 02/20/23 14:56 Completed XR pelvis 1-2V* [id number] Stat Exams 02/20/23 14:24 Completed CV. echo complete* [id number] Routine Ultrasound 02/21/23 09:29 Completed US arterial duplex lower extremity bilat [CV arterial Ultrasound 02/20/23 16:20 [place] [id number]] Stat Pending at discharge Category Date Time Status Blood Culture Stat Lab 02/21/23 09:49 Results Sputum Culture and Gram Stain Stat Lab 02/21/23 16:13 Uncollected Radiology Impressions Lumbar Spine CT 02/20/23 14:23 IMPRESSION: No acute findings. Pelvis X-Ray 02/20/23 14:24 IMPRESSION: No acute findings. Duplex Scan Lower Extremity Artery 02/20/23 16:20 IMPRESSION: No significant stenosis or occlusion. Chest X-Ray 02/23/23 16:28 IMPRESSION: Cardiomegaly with left basilar consolidation and/or effusion better assessed on CT examination of the chest. Laboratory Results WBC 8.91 10^3/uL (3.29-11.43) 02/26/23 05:55 RBC 5.35 10^6/uL (3.85-5.65) 02/26/23 05:55 Hgb 14.70 g/dL (11.27-16.99) 02/26/23 05:55 Hct 45.6 % (37-53) 02/26/23 05:55 MCV 85.2 fl (82-101) 02/26/23 05:55 MCH 27.5 pg (27-33) 02/26/23 05:55 MCHC 32.2 g/dL (30-55) 02/26/23 05:55 RDW 13.7 % (12.1-15.1) 02/26/23 05:55 Plt Count 191 10^3/cmm (157-399) 02/26/23 05:55 MPV 10.9 fL (7.4-10.4) H 02/26/23 05:55 Neut % (Auto) 66.0 % 02/26/23 05:55 Lymph % (Auto) 21.5 % 02/26/23 05:55 [place] % (Auto) 8.2 % 02/26/23 05:55 Eos % (Auto) 3.1 % 02/26/23 05:55 Baso % (Auto) 0.6 % 02/26/23 05:55 Neut # (Auto) 5.88 10^3/uL (1.8-7.7) 02/26/23 05:55 Lymph # (Auto) 1.9 10^3/uL (0.8-4.8) 02/26/23 05:55 [place] # (Auto) 0.7 10^3/uL (0.2-0.9) 02/26/23 05:55 Eos # (Auto) 0.3 10^3/uL (0.0-0.8) 02/26/23 05:55 Baso # (Auto) 0.1 10^3/uL (0.0-0.1) 02/26/23 05:55 Nucleated RBC % (auto) 0 % 02/26/23 05:55 Nucleated RBCs # 0.0 /100WBC 02/26/23 05:55 ESR 35 mm/hr (0-10) H 02/21/23 05:28 Sodium 135 mmol/L (136-145) L 02/26/23 05:55 Potassium 3.0 mmol/L (3.5-5.1) L 02/26/23 05:55 Chloride 91 mmol/L (98-107) L 02/26/23 05:55 Carbon Dioxide 32 mmol/L (22-29) H 02/26/23 05:55 Anion Gap 15.0 (5-19) 02/26/23 05:55 BUN 64 mg/dL (8-23) H 02/26/23 05:55 Creatinine 1.9 mg/dL (0.7-1.2) H 02/26/23 05:55 GFR Calculation Not Reportable 02/26/23 05:55 Glucose 219 mg/dL (65-115) H 02/26/23 05:55 POC Glucose 243 mg/dL (70-110) H 02/26/23 07:49 Calculated Osmolality 305 mOsm/kg (285-295) H 02/26/23 05:55 Calcium 9.6 mg/dL (8.5-10.5) 02/26/23 05:55 Phosphorus 4.3 mg/dL (2.5-4.5) 02/26/23 05:55 Magnesium 2.3 mg/dL (1.7-2.3) 02/26/23 05:55 Total Bilirubin 0.4 mg/dL (0.15-1.2) 02/26/23 05:55 AST 22 U/L (0-40) 02/26/23 05:55 ALT 20 U/L (0-41) 02/26/23 05:55 Alkaline Phosphatase 82 U/L (40-130) 02/26/23 05:55 Creatine Kinase 152 U/L (39-308) 02/20/23 14:33 Troponin T Baseline 104 ng/L (0-15) H* 02/20/23 14:33 Troponin T 120 Minute 100.2 ng/L (0-15) H 02/20/23 17:26 Delta Troponin T -3.8 ABS# (0-10) L 02/20/23 17:26 Troponin T Hi Sens 6Hr 92.59 ng/L (0-15) H 02/20/23 21:26 Troponin T Hi Sens 6Hr Delta -11.41 ng/L (0-12) L 02/20/23 21:26 C-Reactive Protein 213.1 mg/L (0.0-4.9) H 02/24/23 05:40 NT-Pro-B Natriuret Pep 3883 pg/mL (0-125) H 02/24/23 05:40 Total Protein 6.3 g/dL (6.6-8.7) L 02/26/23 05:55 Albumin 3.2 g/dL (3.5-5.2) L 02/26/23 05:55 Globulin 3.1 g/dL (1.3-4.6) 02/26/23 05:55 Procalcitonin 0.78 ng/mL (0-0.5) H 02/24/23 05:40 TSH 0.96 uIU/mL (0.27-4.20) 02/20/23 14:33 Urine Color Colorless (Yellow) 02/23/23 04:15 Urine Appearance Clear (CLEAR) 02/23/23 04:15 Urine pH 5 (5-7) 02/23/23 04:15 Ur Specific [place] 1.015 (1.005-1.030) 02/23/23 04:15 Urine Protein 1+ (Negative) H 02/23/23 04:15 Urine Glucose (UA) 4+ (Normal) H 02/23/23 04:15 Urine Ketones 1+ (Negative) H 02/23/23 04:15 Urine Blood 3+ (Negative) H 02/23/23 04:15 Urine Nitrate Negative (Negative) 02/23/23 04:15 Urine Bilirubin Neg (Negative) 02/23/23 04:15 Urine Urobilinogen Neg mg/dL (Negative) 02/23/23 04:15 Ur Leukocyte Esterase Negative (Negative) 02/23/23 04:15 Urine RBC 5-10 /hpf (0-2) H 02/23/23 04:15 Urine WBC Rare /hpf (0-5) 02/23/23 04:15 Ur Squamous Epith Cells None /hpf (0-5) 02/23/23 04:15 Amorphous Sediment Trace /hpf 02/23/23 04:15 Urine Bacteria None /hpf (NONE) 02/23/23 04:15 Hyaline Casts 0-4 /lpf H 02/20/23 14:50 Urine Yeast Trace /hpf 02/20/23 14:50 Nasal Influ A H1 2009 PCR Not detected (NOT DETECT) 02/21/23 16:51 Adenovirus (PCR) Not detected (NOT DETECT) 02/21/23 16:51 C. pneumoniae DNA (PCR) Not detected (NOT DETECT) 02/21/23 16:51 Coronavirus 229E (PCR) Not detected (NOT DETECT) 02/21/23 16:51 Human Metapneumovir PCR Not detected (NOT DETECT) 02/21/23 16:51 Influenza A (H1) PCR Not detected (NOT DETECT) 02/21/23 16:51 Influenza A (H3) PCR Not detected (NOT DETECT) 02/21/23 16:51 Influenza Type A (PCR) Not detected (NOT DETECT) 02/21/23 16:51 Influenza Type B (PCR) Not detected (NOT DETECT) 02/21/23 16:51 M. pneumoniae (PCR) Not detected (NOT DETECT) 02/21/23 16:51 Parainfluenza 1 (PCR) Not detected (NOT DETECT) 02/21/23 16:51 Parainfluenza 2 (PCR) Not detected (NOT DETECT) 02/21/23 16:51 Parainfluenza 3 (PCR) Not detected (NOT DETECT) 02/21/23 16:51 Parainfluenza 4 (PCR) Not detected (NOT DETECT) 02/21/23 16:51 RSV Type A (PCR) Not detected (NOT DETECT) 02/21/23 16:51 RSV Type B (PCR) Not detected (NOT DETECT) 02/21/23 16:51 Entero/Rhino (PCR) Not detected (NOT DETECT) 02/21/23 16:51 SARS-CoV-2 (PCR) Not detected (NOT DETECT) 02/21/23 16:51 Vitals Last Vital Signs Temp 97.2 F L 02/26/23 08:00 Pulse 87 02/26/23 08:00 Resp 16 02/26/23 08:55 BP 151/90 02/26/23 08:00 Pulse Ox 96 02/26/23 08:55 O2 Del Method Room Air 02/26/23 07:38 Discharge Plan Discharge Patient Disposition: Xfer SNF Condition: Stable Prescriptions: New polyethylene glycol 3350 17 gram Powder In Packet 17 g PO DAILY 30 Days Qty: 30 0RF doxycycline monohydrate 100 mg Tablet 100 mg PO BID 5 Days Qty: 10 0RF pantoprazole 40 mg Tablet,Delayed Release (Dr/Ec) 40 mg PO DAILY 30 Days Qty: 30 0RF lactulose 20 gram/30 mL Solution 20 g PO Q24H PRN (Reason: constipation) 30 Days Qty: 900 0RF oxycodone 5 mg Tablet 5 mg PO Q4H PRN (Reason: Moderate Pain) 7 Days Qty: 42 0RF Novolog FlexPen U-100 Insulin 100 unit/mL (3 mL) insulin pen See Rx Instructions .ROUTE .COMPLEX Qty: 15 0RF Rx Instructions: Inject, subcu, 3 times daily, after meals, based on sign scale provided Continued (DME) o[place] afo to right See Rx Instructions .Route .MEDSUPPLY Qty: 1 0RF Rx Instructions: As directed by [employer] (DME) Diabetic Shoes with 3 pairs of inserts See Rx Instructions .ROUTE .MEDSUPPLY Qty: 1 0RF Rx Instructions: As directed by [employer] (DME) Silver Alginate Dressing and 2 Layer Compression System Wraps See Rx Instructions .Route .MEDSUPPLY Qty: 1 0RF Rx Instructions: Dressing supplies needed for 30 days with 3 Refills (DME) 2 Layer Compression Bandage System- Coflex TLC LITE Calamine with Indicators 4 in x6 yard/4 in by 7 yard See Rx Instructions .Route .MEDSUPPLY Qty: 1 0RF Rx Instructions: 32 boxes needed for 3 months Compression 20 to 30 mmHg- Ref. # [id number] tamsulosin 0.4 mg capsule 0.4 mg PO BEDTIME 30 Days Qty: 30 0RF finasteride 5 mg tablet 5 mg PO DAILY 30 Days Qty: 30 0RF Eliquis 5 mg tablet 5 mg PO BID 30 Days Qty: 60 0RF prazosin 1 mg Capsule 1 mg PO QPM thiamine HCl (vitamin B1) 100 mg Tablet 100 mg PO DAILY allopurinol 300 mg Tablet 300 mg PO DAILY polyethylene glycol 3350 [Miralax] 17 gram/dose Powder 4 g PO DAILY lisinopril 40 mg Tablet 40 mg PO DAILY rosuvastatin 10 mg Tablet 10 mg PO QPM duloxetine 30 mg Capsule,Delayed Release(Dr/Ec) 30 mg PO DAILY zinc oxide 40 % Ointment 1 applic TOPICAL DAILY empagliflozin 25 mg Tablet 25 mg PO DAILY semaglutide 1 mg/dose (2 mg/1.5 mL) Pen Injector 1 mg SUBCUT Q7D magnesium oxide 400 mg magnesium Tablet 400 mg PO DAILY pentoxifylline 400 mg Tablet Extended Release 400 mg PO DAILY pregabalin [Lyrica] 300 mg Capsule 300 mg PO BID potassium chloride 20 mEq Tablet Extended Release 40 meq PO DAILY Qty: 60 0RF Changed bumetanide 2 mg Tablet 1 mg PO DAILY 30 Days Qty: 30 0RF insulin glargine 100 unit/mL (3 mL) insulin pen 15 unit SUBCUT BEDTIME Qty: 15 0RF Discontinued hydrochlorothiazide 25 mg Tablet 25 mg PO DAILY Discharge Orders: Discharge Order (Routine); Ordered 02/26/23 Ordered By: Jone Pastor Referrals: [facility] [Outside] Discharge Diet: Advance as tolerated Discharge Activity: Limit activity as instructed Patient Instructions: Opioid Safety, Pain Management Activity Restrictions/Additional Instructions: Continue physical therapy. Continue no bending lifting or twisting activities. Continue to pursue tobacco cessation. We will see him back in the office in 4 to [address] Cabrera for consideration of continued conservative management with pain management. -Take Lantus 15 units at bedtime -Please monitor your blood sugars closely -Monitor your blood sugars 3 times daily as after meals -Please record your blood sugars, and a blood sugar log -For your NovoLog -Please inject blood sugar after meals based on sliding scale provided -Do not inject insulin if you do not eat as hypoglycemia kills -This is a NovoLog sliding scale -Insulin sliding ?fingerstick? Insulin ?141-180?0 units/sq 181-220?2 units/sq ?221-260?4 units/sq ?261-300 6 units/sq ?301-350?8 units/sq ?351-400 10 units/sq ?401-450?12 units/sq >450? 14units/sq -If your blood sugar is greater than 500 go to the emergency room -If your blood sugar is less than 60 or at anytime you feel lightheaded or dizzy or diaphoretic or have chest palpitations check your blood sugar, and eat a hard candy or drink orange juice and go immediately to the emergency room -Remember hypoglycemia kills, so if his blood sugar is less than 60 we have to increase it by taking in a sugary meal such as a hard candy or orange juice and go to the emergency room -If you have any questions please call us where here to help ? Please limit fluid intake to 2 L a day, ? Follow-up cardiology in 2 to 4 weeks, ? Follow-up with Dr. Cabrera in 2 to 4 weeks ? Take Bumex 1 mg p.o. every 24 hours, potassium replacement therapy -Take antibiotics as prescribed Discharge Attestations Time Spent in Discharge Care*: greater than 30 min Status at Discharge: Cognitive status at discharge: cognitively intact , Behavioral status at discharge: cooperative , Quality Metrics Clinical Quality Measures [ No reported AMI, CVA or VTE this stay] Coding Level of Care Code 97701 Total time (in minutes) for Discharge: 45 Diagnoses Chronic venous insufficiency I87.2 DDD (degenerative disc disease), lumbosacral M51.37 Spondylolisthesis at L4-L5 level M43.16
[2023-02-26 10:58] LABS: Glucose Point of Care 236 mg/dL (70-110)
[2023-02-26 12:01] LABS: SARS Covid-2 Antigen negative (Negative)
--- NOTE | 2023-02-26 12:11 | PC.NURSE ---
This nurse called report to LINDA Busby at [facility] at 1212. Discharge pending transportation.
== END 2023-02-26 13:41 | disposition skilled nursing facility (03) | DRG 551 ==
LOC: ER 16:00 → MEDSURG 17:23
PROVIDERS: Admitting Provider Family Medicine; Emergency Provider Family Medicine; PCP Family Medicine; Visit Provider Family Medicine
DX: M43.16 Spondylolisthesis, lumbar region (principal); I50.21 Acute systolic (congestive) heart failure; J18.9 Pneumonia, unspecified organism; I13.0 Hypertensive heart and chronic kidney disease with heart failure and stage 1 through stage 4 chronic kidney disease, or unspecified chronic kidney disease; I48.20 Chronic atrial fibrillation, unspecified; Z68.41 Body mass index [BMI] 40.0-44.9, adult; I69.351 Hemiplegia and hemiparesis following cerebral infarction affecting right dominant side; N17.9 Acute kidney failure, unspecified; L97.929 Non-pressure chronic ulcer of unspecified part of left lower leg with unspecified severity; L97.919 Non-pressure chronic ulcer of unspecified part of right lower leg with unspecified severity; E87.6 Hypokalemia; N18.9 Chronic kidney disease, unspecified; E11.22 Type 2 diabetes mellitus with diabetic chronic kidney disease; Z79.4 Long term (current) use of insulin; Z79.01 Long term (current) use of anticoagulants; E66.01 Morbid (severe) obesity due to excess calories; N40.0 Benign prostatic hyperplasia without lower urinary tract symptoms; I25.10 Atherosclerotic heart disease of native coronary artery without angina pectoris; E11.42 Type 2 diabetes mellitus with diabetic polyneuropathy; M10.9 Gout, unspecified; E78.5 Hyperlipidemia, unspecified; E11.51 Type 2 diabetes mellitus with diabetic peripheral angiopathy without gangrene; Z95.0 Presence of cardiac pacemaker; F17.220 Nicotine dependence, chewing tobacco, uncomplicated; G89.29 Other chronic pain; I87.2 Venous insufficiency (chronic) (peripheral); Z91.81 History of falling; R26.2 Difficulty in walking, not elsewhere classified; M46.1 Sacroiliitis, not elsewhere classified; M51.37 Other intervertebral disc degeneration, lumbosacral region; M48.062 Spinal stenosis, lumbar region with neurogenic claudication
CPT/HCPCS: 36415; 36416; 71045; 72131; 72170; 80048; 80053; 81001; 82550; 82962; 83735; 83880; 84100; 84145; 84443; 84484; 85025; 85651; 86140; 87040; 87426; 87486; 87581; 87633; 92610; 93005; 93010; 93306; 93925; 94664; 96372; 96374; 96375; 97110; 97162; 97167; 97530; 99285; C9113; J0456; J0696; J1815; J1940; J2270; J2405; J3480; J7030; J7050; P9046; Q3014; Q9956

== ENCOUNTER → 2023-03-24 09:03 | Outpatient (BNVA) | payer OTHER, SELFPAY | PROVIDERS: PCP Family Medicine; Visit Provider Podiatrist Foot & Ankle Surgery | DX: I87.2 Venous insufficiency (chronic) (peripheral) (principal); M21.41 Flat foot [pes planus] (acquired), right foot; M21.42 Flat foot [pes planus] (acquired), left foot; E11.42 Type 2 diabetes mellitus with diabetic polyneuropathy; I73.9 Peripheral vascular disease, unspecified; Z79.4 Long term (current) use of insulin | CPT/HCPCS: 99213 ==

== ENCOUNTER 2023-03-31 16:40 | Inpatient (IN) | payer OTHER, SELFPAY ==
[2023-03-31] VITALS (9 sets, daily range): BP systolic 144–194; BP diastolic 69–97; PULSE 57–71; RESP 12–20; TEMP 36.4–36.7; O2SAT 92–97
--- NOTE | 2023-03-31 16:47 | XRR_ITS ---
PROCEDURE INFORMATION: Exam: XR Chest Exam date and time: 03/31/2023 4:57 PM Age: 73 years old Clinical indication: Other: Weakness; Prior surgery; Surgery date: 6+ months; Surgery type: Pacer; Additional info: Dyspnea/cough TECHNIQUE: Imaging protocol: Radiologic exam of the chest. Views: 1 view. COMPARISON: CR (CHEST, ) 02/23/2023 5:44 PM FINDINGS: Tubes, catheters and devices: There is stable intact pacemaker hardware. Lungs: Unremarkable. No consolidation. Pleural spaces: Unremarkable. No pleural effusion. No pneumothorax. Heart/Mediastinum: Mild cardiomegaly. Bones/joints: Unremarkable. XR/XR chest 1V portable [id number] IMPRESSION: No acute findings.
--- NOTE | 2023-03-31 16:47 | ECG_ITS ---
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 Measurements Intervals [place] Rate: 59 P: 0 CA: 0 QRS: 99 QRSD: 134 T: -24 QT: 436 QTc: 435 Interpretive Statements Atrial fibrillation with a demand V pacing ELECTRONIC VENTRICULAR PACEMAKER -- CONTOUR ANALYSIS BASED ON INTRINSIC RHYTHM RIGHT BUNDLE BRANCH BLOCK [120+ ms QRS DURATION, UPRIGHT V1, 40+ ms S IN I/aVL/V4/V5/V6] Compared to ECG 02/20/2023 18:20:32 Atrial fibrillation no longer present Electronically Signed On 03-31-2023 21:34:06 [employer] by Refugio Kraus M.D. [email or web address]
--- NOTE | 2023-03-31 16:48 | W.ED.WEAKNES ---
Documented by User: Roberto Keys DO 04/01/23 06:40 HPI - Weakness General: Chief complaint: Weakness Stated complaint: weakness Time Seen by Provider: 03/31/23 16:41 Source: patient Mode of arrival: ambulatory History of Present Illness: 73-year-old male presents emergency room complaining of weakness. Weakness is mostly generalized. He is currently at [facility] trying to participate in some rehab so that he can go back home again. He has not had any chest pain or abdominal pain no fever sweats or chills has some chronic swelling in his lower extremities it seems that his normal pace he has not been orthopneic no dysuria urgency or frequency other than just generally not feeling well and being weak has no specific complaints he says it has been that way for couple weeks since he fell prior to coming to [facility]. No recent medication changes Complaint: generalized weakness Onset (ago): week(s) Duration: progressively worsening Location: generalized Relieving factors: none Exacerbating factors: none Associated symptoms: Reports decreased appetite and nausea; Denies chest pain, chills, confusion, melena, diaphoresis, dysuria, easy bruising, fever(s), headache(s), myalgias, rash, short of breath, syncope, vomiting or other Review of Systems Const: Denies: fever(s), chills or diaphoresis Card: Denies: chest pain or syncope Resp: Denies: dyspnea GI: Reports: nausea; Denies: abdominal pain, vomiting or melena : Denies: dysuria, urinary frequency or urinary urgency Musc: Denies: neck pain or back pain Skin/Breast: Denies: rash Neuro: Denies: headache(s) or confusion Bharat/Lymph: Denies: easy bruising [facility] ED PFSH: Medical History Constipation Gout attack Acute on chronic diastolic (congestive) heart failure Hypokalemia CHF exacerbation Swelling of right upper extremity Atrial fibrillation Peripheral arterial disease CKD (chronic kidney disease) Ischemic toe ulcer Physical deconditioning Bilateral lower leg cellulitis Temporary transvenous cardiac pacemaker present BMI 40.0-44.9, adult Hyperkalemia Squamous cell carcinoma in situ Abnormal nuclear stress test Accelerated hypertension Chronic diastolic heart failure Atrial fibrillation Acute kidney injury Rhabdomyolysis Coronary artery disease Evaluated in [place], patient reports 55% narrowing unknown vessel no stent or angioplasty done PAD (peripheral artery disease) Calculus of proximal ureter Diabetic neuropathy associated with type 2 diabetes mellitus Lumbar foraminal stenosis Bradycardia Nicotine dependence, chewing tobacco, with other nicotine-induced disorders Diabetes mellitus, type II Chronic anticoagulation eliquis Osteoarthritis Obesity BMI-42 kg/m2 Hypertension Chronic kidney disease Hyperlipidemia Obstructive sleep apnea not on treatment by choice Atrial fibrillation Chronic, history of bradycardia with beta blockers, on eliquis CVA (cerebral vascular accident) residual right weakness Congestive heart failure BPH NOS w/o ur obs/LUTS PVD (peripheral vascular disease) Pes planus of both feet Renal calculus, right Surgical History Hx of colonoscopy with polypectomy Status post cardiac pacemaker procedure No pertinent past surgical history Family History Mother , 87 Diabetes CAD (coronary artery disease) Hypertension Father , 60 No problems noted. Social History Smoking and tobacco/nicotine status: current every day tobacco/nicotine user (chew tobacco) pipe Pipes smoked per week: 1 Years smoked pipe: 54 and smokeless tobacco Smokeless tobacco user: chewing tobacco Alcohol intake: former Year of sobriety/quit date alcohol: 25 y Former alcohol use details: heavy use, 5 DWI's Substance/Drug Use: former Household members: none Housing: House Marital status: service: Yes Current occupational status: retired Physical Exam Const: COMMON NORMALS: no acute distress GENERAL APPEARANCE: cooperative and comfortable ORIENTATION/CONSCIOUSNESS: Yes awake, Yes oriented to person, Yes oriented to place and Yes oriented to time HENMT: COMMON NORMALS: normocephalic, atraumatic and hearing grossly normal bilaterally HEAD & SCALP: normocephalic and atraumatic Resp: COMMON NORMALS: normal respiratory effort, No retractions, No use of accessory muscles and clear to auscultation bilaterally AUSCULTATION: clear to auscultation bilaterally Cardio: COMMON NORMALS: regular rate, regular rhythm and No murmurs present (Cardio) RATE: regular rate RHYTHM: regular rhythm GI: COMMON NORMALS: Soft to palpation and No hepatosplenomegaly present AUSCULTATION: Yes normoactive bowel sounds PALPATION: Yes Soft to palpation, No Tenderness to palpation present (GI), No Guarding due to palpation present (GI) and Yes No hepatosplenomegaly present Extremity: COMMON NORMALS: normal to inspection, capillary refill normal and no calf tenderness GENERAL: Yes edema (Lower extremity chronic bilaterally) Neuro: SENSORIUM/ORIENTATION: Yes oriented to person, Yes oriented to place and Yes oriented to time Skin: COMMON NORMALS: no rashes or lesions noted GENERAL SKIN EXAM: no rashes or lesions noted Course Vital Signs: Vital signs: Vital Signs Temperature 97.8 F 04/01/23 03:41 Pulse Rate 61 04/01/23 03:41 Respiratory Rate 14 04/01/23 03:41 Blood Pressure 158/78 04/01/23 03:41 Pulse Oximetry 92 04/01/23 03:41 Oxygen Delivery Me thod Room Air 04/01/23 03:41 MDM - Weakness Medical Decision Making Labs and imaging pending. Care signed out to Dr. Engel at change of shift. See final notes for diagnosis and disposition. Patient presents here with generalized weakness he does have leukocytosis no source of infection on x-ray urinalysis or CT abdomen we will get blood cultures start antibiotics I spoke to hospitalist will admit at this time. Lab Data 04/01/23 04:32 04/01/23 04:32 Radiology Impressions Chest X-Ray 03/31/23 16:47 IMPRESSION: No acute findings. Abdomen/Pelvis CT 03/31/23 17:44 IMPRESSION: 1. Mildly complex 4.3 cm hypodense structure in the inferior pole of the right kidney which does not meet imaging criteria for a simple cyst and a 2.6 cm structure measuring 38 Hounsfield units in the inferior pole of the left kidney. These are incompletely assessed on this examination and a three-phase renal CT or renal MRI may help to further evaluate these findings. 2. No bowel obstruction or inflammatory process associated with the bowel. 3. No free air or significant free fluid in the abdomen or pelvis. 4. The appendix images normally. Laboratory Results WBC 20.05 10^3/uL (3.29-11.43) H 03/31/23 17:08 RBC 5.46 10^6/uL (3.85-5.65) 03/31/23 17:08 Hgb 14.90 g/dL (11.27-16.99) 03/31/23 17:08 Hct 47.1 % (37-53) 03/31/23 17:08 MCV 86.3 fl (82-101) 03/31/23 17:08 MCH 27.3 pg (27-33) 03/31/23 17:08 MCHC 31.6 g/dL (30-55) 03/31/23 17:08 RDW 15.0 % (12.1-15.1) 03/31/23 17:08 Plt Count 198 10^3/cmm (157-399) 03/31/23 17:08 MPV 10.8 fL (7.4-10.4) H 03/31/23 17:08 Neut % (Auto) 81.6 % 03/31/23 17:08 Lymph % (Auto) 9.6 % 03/31/23 17:08 [place] % (Auto) 7.9 % 03/31/23 17:08 Eos % (Auto) 0.0 % 03/31/23 17:08 Baso % (Auto) 0.3 % 03/31/23 17:08 Neut # (Auto) 16.34 10^3/uL (1.8-7.7) H 03/31/23 17:08 Lymph # (Auto) 1.9 10^3/uL (0.8-4.8) 03/31/23 17:08 [place] # (Auto) 1.6 10^3/uL (0.2-0.9) H 03/31/23 17:08 Eos # (Auto) 0.0 10^3/uL (0.0-0.8) 03/31/23 17:08 Baso # (Auto) 0.1 10^3/uL (0.0-0.1) 03/31/23 17:08 Nucleated RBC % (auto) 0 % 03/31/23 17:08 Nucleated RBCs # 0.0 /100WBC 03/31/23 17:08 Sodium 140 mmol/L (136-145) 03/31/23 17:08 Potassium 4.5 mmol/L (3.5-5.1) 03/31/23 17:08 Chloride 96 mmol/L (98-107) L 03/31/23 17:08 Carbon Dioxide 32 mmol/L (22-29) H 03/31/23 17:08 Anion Gap 16.5 (5-19) 03/31/23 17:08 BUN 30 mg/dL (8-23) H 03/31/23 17:08 Creatinine 1.6 mg/dL (0.7-1.2) H 03/31/23 17:08 GFR Calculation Not Reportable 03/31/23 17:08 Glucose 150 mg/dL (65-115) H 03/31/23 17:08 Calculated Osmolality 299 mOsm/kg (285-295) H 03/31/23 17:08 Calcium 9.6 mg/dL (8.5-10.5) 03/31/23 17:08 Magnesium 2.2 mg/dL (1.7-2.3) 03/31/23 17:08 Total Bilirubin 0.9 mg/dL (0.15-1.2) 03/31/23 17:08 AST 15 U/L (0-40) 03/31/23 17:08 ALT < 5 U/L (0-41) 03/31/23 17:08 Alkaline Phosphatase 107 U/L (40-130) 03/31/23 17:08 Creatine Kinase 283 U/L (39-308) 03/31/23 17:08 Troponin T Baseline 122 ng/L (0-15) H* 03/31/23 17:08 Troponin T 120 Minute 106.7 ng/L (0-15) H 03/31/23 19:13 Delta Troponin T -15.3 ABS# (0-10) L 03/31/23 19:13 Total Protein 6.5 g/dL (6.6-8.7) L 03/31/23 17:08 Albumin 4.2 g/dL (3.5-5.2) 03/31/23 17:08 Globulin 2.3 g/dL (1.3-4.6) 03/31/23 17:08 Urine Color Light yellow (Yellow) 03/31/23 17:05 Urine Appearance Clear (CLEAR) 03/31/23 17:05 Urine pH 7 (5-7) 03/31/23 17:05 Ur Specific [place] 1.015 (1.005-1.030) 03/31/23 17:05 Urine Protein 1+ (Negative) H 03/31/23 17:05 Urine Glucose (UA) 4+ (Normal) H 03/31/23 17:05 Urine Ketones Negative (Negative) 03/31/23 17:05 Urine Blood 3+ (Negative) H 03/31/23 17:05 Urine Nitrate Negative (Negative) 03/31/23 17:05 Urine Bilirubin Neg (Negative) 03/31/23 17:05 Urine Urobilinogen Norm mg/dL (Negative) 03/31/23 17:05 Ur Leukocyte Esterase Negative (Negative) 03/31/23 17:05 Urine RBC 40-50 /hpf (0-2) H 03/31/23 17:05 Urine WBC Rare /hpf (0-5) 03/31/23 17:05 Ur Squamous Epith Cells None /hpf (0-5) 03/31/23 17:05 Amorphous Sediment Not Reportable 03/31/23 17:05 Urine Bacteria None /hpf (NONE) 03/31/23 17:05 Urine Mucus None /hpf 03/31/23 17:05 Discharge Plan Discharge Patient Disposition: Admitted As Inpatient Admit Provider: Nik Douglas Clinical Impression: Weakness, Leukocytosis Condition: Stable Coding Level of Care Code ED Machine Egg Washer for Chg Fwd Documented by User: Teresita Engel MD 03/31/23 20:55 HPI - Weakness General: Chief complaint: Weakness Stated complaint: weakness Time Seen by Provider: 03/31/23 16:41 [facility] ED PFSH: Medical History Constipation Gout attack Acute on chronic diastolic (congestive) heart failure Hypokalemia CHF exacerbation Swelling of right upper extremity Atrial fibrillation Peripheral arterial disease CKD (chronic kidney disease) Ischemic toe ulcer Physical deconditioning Bilateral lower leg cellulitis Temporary transvenous cardiac pacemaker present BMI 40.0-44.9, adult Hyperkalemia Squamous cell carcinoma in situ Abnormal nuclear stress test Accelerated hypertension Chronic diastolic heart failure Atrial fibrillation Acute kidney injury Rhabdomyolysis Coronary artery disease Evaluated in [place], patient reports 55% narrowing unknown vessel no stent or angioplasty done PAD (peripheral artery disease) Calculus of proximal ureter Diabetic neuropathy associated with type 2 diabetes mellitus Lumbar foraminal stenosis Bradycardia Nicotine dependence, chewing tobacco, with other nicotine-induced disorders Diabetes mellitus, type II Chronic anticoagulation eliquis Osteoarthritis Obesity BMI-42 kg/m2 Hypertension Chronic kidney disease Hyperlipidemia Obstructive sleep apnea not on treatment by choice Atrial fibrillation Chronic, history of bradycardia with beta blockers, on eliquis CVA (cerebral vascular accident) residual right weakness Congestive heart failure BPH NOS w/o ur obs/LUTS PVD (peripheral vascular disease) Pes planus of both feet Renal calculus, right Surgical History Hx of colonoscopy with polypectomy Status post cardiac pacemaker procedure No pertinent past surgical history Family History Mother , 87 Diabetes CAD (coronary artery disease) Hypertension Father , 60 No problems noted. Social History Smoking and tobacco/nicotine status: current every day tobacco/nicotine user (chew tobacco) pipe Pipes smoked per week: 1 Years smoked pipe: 54 and smokeless tobacco Smokeless tobacco user: chewing tobacco Alcohol intake: former Year of sobriety/quit date alcohol: 25 y Former alcohol use details: heavy use, 5 DWI's Substance/Drug Use: former Household members: none Housing: House Marital status: service: Yes Current occupational status: retired Course Vital Signs: Vital signs: Vital Signs Temperature 97.8 F 04/01/23 03:41 Pulse Rate 61 04/01/23 03:41 Respiratory Rate 14 04/01/23 03:41 Blood Pressure 158/78 04/01/23 03:41 Pulse Oximetry 92 04/01/23 03:41 Oxygen Delivery Me thod Room Air 04/01/23 03:41 MDM - Weakness Medical Decision Making Patient presents here with generalized weakness he does have leukocytosis no source of infection on x-ray urinalysis or CT abdomen we will get blood cultures start antibiotics I spoke to hospitalist will admit at this time. Medical Records I reviewed the patient's medical records. Lab Data I reviewed the patient's lab results. 04/01/23 04:32 04/01/23 04:32 Radiology Impressions Chest X-Ray 03/31/23 16:47 IMPRESSION: No acute findings. Abdomen/Pelvis CT 03/31/23 17:44 IMPRESSION: 1. Mildly complex 4.3 cm hypodense structure in the inferior pole of the right kidney which does not meet imaging criteria for a simple cyst and a 2.6 cm structure measuring 38 Hounsfield units in the inferior pole of the left kidney. These are incompletely assessed on this examination and a three-phase renal CT or renal MRI may help to further evaluate these findings. 2. No bowel obstruction or inflammatory process associated with the bowel. 3. No free air or significant free fluid in the abdomen or pelvis. 4. The appendix images normally. Laboratory Results WBC 20.05 10^3/uL (3.29-11.43) H 03/31/23 17:08 RBC 5.46 10^6/uL (3.85-5.65) 03/31/23 17:08 Hgb 14.90 g/dL (11.27-16.99) 03/31/23 17:08 Hct 47.1 % (37-53) 03/31/23 17:08 MCV 86.3 fl (82-101) 03/31/23 17:08 MCH 27.3 pg (27-33) 03/31/23 17:08 MCHC 31.6 g/dL (30-55) 03/31/23 17:08 RDW 15.0 % (12.1-15.1) 03/31/23 17:08 Plt Count 198 10^3/cmm (157-399) 03/31/23 17:08 MPV 10.8 fL (7.4-10.4) H 03/31/23 17:08 Neut % (Auto) 81.6 % 03/31/23 17:08 Lymph % (Auto) 9.6 % 03/31/23 17:08 [place] % (Auto) 7.9 % 03/31/23 17:08 Eos % (Auto) 0.0 % 03/31/23 17:08 Baso % (Auto) 0.3 % 03/31/23 17:08 Neut # (Auto) 16.34 10^3/uL (1.8-7.7) H 03/31/23 17:08 Lymph # (Auto) 1.9 10^3/uL (0.8-4.8) 03/31/23 17:08 [place] # (Auto) 1.6 10^3/uL (0.2-0.9) H 03/31/23 17:08 Eos # (Auto) 0.0 10^3/uL (0.0-0.8) 03/31/23 17:08 Baso # (Auto) 0.1 10^3/uL (0.0-0.1) 03/31/23 17:08 Nucleated RBC % (auto) 0 % 03/31/23 17:08 Nucleated RBCs # 0.0 /100WBC 03/31/23 17:08 Sodium 140 mmol/L (136-145) 03/31/23 17:08 Potassium 4.5 mmol/L (3.5-5.1) 03/31/23 17:08 Chloride 96 mmol/L (98-107) L 03/31/23 17:08 Carbon Dioxide 32 mmol/L (22-29) H 03/31/23 17:08 Anion Gap 16.5 (5-19) 03/31/23 17:08 BUN 30 mg/dL (8-23) H 03/31/23 17:08 Creatinine 1.6 mg/dL (0.7-1.2) H 03/31/23 17:08 GFR Calculation Not Reportable 03/31/23 17:08 Glucose 150 mg/dL (65-115) H 03/31/23 17:08 Calculated Osmolality 299 mOsm/kg (285-295) H 03/31/23 17:08 Calcium 9.6 mg/dL (8.5-10.5) 03/31/23 17:08 Magnesium 2.2 mg/dL (1.7-2.3) 03/31/23 17:08 Total Bilirubin 0.9 mg/dL (0.15-1.2) 03/31/23 17:08 AST 15 U/L (0-40) 03/31/23 17:08 ALT < 5 U/L (0-41) 03/31/23 17:08 Alkaline Phosphatase 107 U/L (40-130) 03/31/23 17:08 Creatine Kinase 283 U/L (39-308) 03/31/23 17:08 Troponin T Baseline 122 ng/L (0-15) H* 03/31/23 17:08 Troponin T 120 Minute 106.7 ng/L (0-15) H 03/31/23 19:13 Delta Troponin T -15.3 ABS# (0-10) L 03/31/23 19:13 Total Protein 6.5 g/dL (6.6-8.7) L 03/31/23 17:08 Albumin 4.2 g/dL (3.5-5.2) 03/31/23 17:08 Globulin 2.3 g/dL (1.3-4.6) 03/31/23 17:08 Urine Color Light yellow (Yellow) 03/31/23 17:05 Urine Appearance Clear (CLEAR) 03/31/23 17:05 Urine pH 7 (5-7) 03/31/23 17:05 Ur Specific [place] 1.015 (1.005-1.030) 03/31/23 17:05 Urine Protein 1+ (Negative) H 03/31/23 17:05 Urine Glucose (UA) 4+ (Normal) H 03/31/23 17:05 Urine Ketones Negative (Negative) 03/31/23 17:05 Urine Blood 3+ (Negative) H 03/31/23 17:05 Urine Nitrate Negative (Negative) 03/31/23 17:05 Urine Bilirubin Neg (Negative) 03/31/23 17:05 Urine Urobilinogen Norm mg/dL (Negative) 03/31/23 17:05 Ur Leukocyte Esterase Negative (Negative) 03/31/23 17:05 Urine RBC 40-50 /hpf (0-2) H 03/31/23 17:05 Urine WBC Rare /hpf (0-5) 03/31/23 17:05 Ur Squamous Epith Cells None /hpf (0-5) 03/31/23 17:05 Amorphous Sediment Not Reportable 03/31/23 17:05 Urine Bacteria None /hpf (NONE) 03/31/23 17:05 Urine Mucus None /hpf 03/31/23 17:05 All radiology interpretation(s) finalized by discharge Discharge Plan Discharge Patient Disposition: Admitted As Inpatient Admit Provider: Nik Douglas Clinical Impression: Weakness, Leukocytosis Condition: Stable Coding Level of Care Code ED Machine Egg Washer for Yris Tee
--- NOTE | 2023-03-31 17:00 | PC.NURSE ---
Pt placed on bedside monitor and storage bin tender
[2023-03-31 17:19] LABS: Basophils # 0.1 10^3/uL (0.0-0.1); Basophils % 0.3 %; Hematocrit 47.1 % (37-53); Lymphocytes # 1.9 10^3/uL (0.8-4.8); Lymphocytes % 9.6 %; Mean Corpuscular HGB Conc 31.6 g/dL (30-55); Mean Corpuscular Hemoglobin 27.3 pg (27-33); Mean Corpuscular Volume 86.3 fl (82-101); Mean Platelet Volume 10.8 fL (7.4-10.4); Monocytes # 1.6 10^3/uL (0.2-0.9); Monocytes % 7.9 %; Neutrophils # 16.34 10^3/uL (1.8-7.7); Neutrophils % 81.6 %; Nucleated Red Blood Cells % 0 %; Platelet Count 198 10^3/cmm (157-399); Red Blood Count 5.46 10^6/uL (3.85-5.65); White Blood Count 20.05 10^3/uL (3.29-11.43)
[2023-03-31 17:28] LABS: Add Urine Microscopic? YES; Bilirubin Urine Neg (Negative); Blood Urine 3+ (Negative); Glucose Urine UA 4+ (Normal); Ketones Urine Negative (Negative); Leukocyte Esterase Urine Negative (Negative); Nitrate Urine Negative (Negative); Protein Urine 1+ (Negative); Specific Gravity, Urine 1.015 (1.005-1.030); Urine Appearance Clear (CLEAR); Urine Color Light yellow (Yellow); Urobilinogen Urine Norm (Negative); pH Urine 7 (5-7)
[2023-03-31 17:36] LABS: Alanine Aminotransferase < 5 U/L (0-41); Albumin Level 4.2 g/dL (3.5-5.2); Alkaline Phosphatase 107 U/L (40-130); Anion Gap 16.5 (5-19); Aspartate Amino Transferase 15 U/L (0-40); Blood Urea Nitrogen 30 mg/dL (8-23); Calcium 9.6 mg/dL (8.5-10.5); Carbon Dioxide 32 mmol/L (22-29); Chloride 96 mmol/L (98-107); Creatine Phosphokinase 283 U/L (39-308); Globulin 2.3 g/dL (1.3-4.6); Glucose 150 mg/dL (65-115); Magnesium 2.2 mg/dL (1.7-2.3); Osmolality Calculated 299 mOsm/kg (285-295); Potassium 4.5 mmol/L (3.5-5.1); Sodium 140 mmol/L (136-145); Total Bilirubin 0.9 mg/dL (0.15-1.2); Total Protein 6.5 g/dL (6.6-8.7)
[2023-03-31 17:37] LABS: Add Urine Culture? No; RBC Urine 40-50 /hpf (0-2); WBC Urine RARE /hpf (0-5)
[2023-03-31] MEDS: cloNIDine 0.1 mg Tablet PO (17:42)
[2023-03-31] MEDS: prazosin 1 mg Capsule PO (17:42)
--- NOTE | 2023-03-31 17:44 | CTR_ITS ---
PROCEDURE INFORMATION: Exam: CT Abdomen And Pelvis Without Contrast Exam date and time: 03/31/2023 6:55 PM Age: 73 years old Clinical indication: Abdominal pain; Generalized TECHNIQUE: Imaging protocol: Computed tomography of the abdomen and pelvis without contrast. Radiation optimization: All CT scans at this facility use at least one of these dose optimization techniques: automated exposure control; mA and/or kV adjustment per patient size (includes targeted exams where dose is matched to clinical indication); or iterative reconstruction. COMPARISON: CT abdomen pelvis [facility] [id number] 10/06/2022 11:59 AM RADIATION DOSE METRICS: Total DLP (mGy-cm): 1350 FINDINGS: Coronary arteries: Coronary arterial atherosclerotic calcifications are present. Liver: Normal. No mass. Gallbladder and bile ducts: Normal. No calcified stones. No ductal dilation. Pancreas: Normal. No ductal dilation. Spleen: Normal. No splenomegaly. Adrenal glands: Normal. No mass. Kidneys and ureters: Mildly complex 4.3 cm hypodense structure in the inferior pole of the right kidney which does not meet imaging criteria for a simple cyst and a 2.6 cm structure measuring 38 Hounsfield units in the inferior pole of the left kidney. These are incompletely assessed on this examination and a three-phase renal CT or renal MRI may help to further evaluate these findings. There is a nonobstructing 13 mm stone in the right kidney. No hydronephrosis. Stomach and bowel: Unremarkable. No obstruction. No mucosal thickening. Appendix: No evidence of appendicitis. Intraperitoneal space: Unremarkable. No free air. No significant fluid collection. Vasculature: Severe atherosclerotic disease of the abdominal aorta and iliac arteries. Lymph nodes: Unremarkable. No enlarged lymph nodes. Urinary bladder: Unremarkable as visualized. Reproductive: Unremarkable as visualized. Bones/joints: Unremarkable. No acute fracture. Soft tissues: Unremarkable. CT/CT abdomen pelvis [facility] [id number] IMPRESSION: 1. Mildly complex 4.3 cm hypodense structure in the inferior pole of the right kidney which does not meet imaging criteria for a simple cyst and a 2.6 cm structure measuring 38 Hounsfield units in the inferior pole of the left kidney. These are incompletely assessed on this examination and a three-phase renal CT or renal MRI may help to further evaluate these findings. 2. No bowel obstruction or inflammatory process associated with the bowel. 3. No free air or significant free fluid in the abdomen or pelvis. 4. The appendix images normally.
[2023-03-31 17:48] LABS: Troponin(5th) Baseline 122 ng/L (0-15)
--- NOTE | 2023-03-31 18:45 | ECG_ITS ---
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 Measurements Intervals [place] Rate: 63 P: 0 IN: 0 QRS: -68 QRSD: 194 T: 105 QT: 612 QTc: 629 Interpretive Statements ELECTRONIC VENTRICULAR PACEMAKER PROLONGED QT INTERVAL CRITICAL TEST RESULT Compared to ECG 03/31/2023 17:12:43 Prolonged QT interval now present Right bundle-branch block no longer present Electronically Signed On 03-31-2023 21:51:34 DIRECTOR [employer] SERVICES by Refugio Kraus M.D. [id number]
[2023-03-31 19:58] LABS: Troponin 5 2HR Delta -15.3 ABS# (0-10)
[2023-03-31 19:59] LABS: Troponin 5 2HR 106.7 ng/L (0-15)
--- NOTE | 2023-03-31 20:38 | PM.HP ---
Providers/Chief Complaint Primary Care Provider: Jessica Bui MD Chief Complaint: weakness History of Present Illness Giles Guillaume is a 73 year old male with a past medical history of morbid obesity, insulin-dependent type 2 diabetes mellitus, atrial fibrillation on Eliquis, CAD, history of peripheral arterial disease, systolic CHF, history of gout, diabetic neuropathy, history of lumbar foraminal stenosis, chronic back pain, sacroiliitis, CKD, who presents to [facility] due to fall, generalized weakness, bilateral extremity weakness, low back pain. Patient has a history of L3 L5 disease with spinal canal stenosis, broad-based disc bulging, with neurogenic claudication, has seen orthopedic service Dr. Wesley service recommended medical management because patient has refused surgery in the past presenting today for chief complaint of lower extremity worsening of weakness. Patient is stating that he fell a week ago, he started noticing numbness and weakness of left leg and then it started on the right and then on Thursday he was not able to move his legs at all, he has been experiencing retention of urine, decreased sensation medial side of his thighs, he has not noticed any chest pain, fever, tachycardia, diarrhea he is endorsing constipation, complaining of back pain, patient has not walked since Thursday, he is at [facility] prison, does not have any family, does not have any medical DPOA, In the ER I frankly told the patient that we need MRI of his back but he is telling me that he has a pacemaker and he is not compatible with the MRI, he is not sure if he would agree for any kind of surgery at this point I did tell him about cauda equina and potential complications related to staying untreated such as paralysis, chronic indwelling catheter, complications, sacral ulcers, sensory lifestyle I will go ahead and start him on Decadron, will touch base with Dr. Wesley Review of Systems Const: Denies: fever(s) Eyes: Denies: change in vision ENMT: Denies: throat pain Card: Denies: chest pain Resp: Denies: dyspnea GI: Denies: abdominal pain : Reports: urinary dribbling Musc: Reports: back pain Skin/Breast: Denies: rash Medications/Allergies Home Medications Medication Instructions Recorded Confirmed Last Taken Type apixaban 5 mg tablet (Eliquis) 5 mg PO BID 30 days #60 tabs 07/04/21 03/24/23 06/25/21 Rx finasteride 5 mg tablet 5 mg PO DAILY 30 days #30 tabs 07/04/21 03/24/23 10/31/19 Rx tamsulosin 0.4 mg capsule 0.4 mg PO BEDTIME 30 days #30 caps 07/04/21 03/24/23 06/24/21 Rx ottobock afo to right #1 ea 08/05/21 03/24/23 Unknown Rx Diabetic Shoes with 3 pairs of #1 ea 06/18/22 03/24/23 Unknown Rx inserts Silver Alginate Dressing and 2 #1 ea 08/06/22 03/24/23 Unknown Rx Layer Compression System Wraps pentoxifylline 400 mg 400 mg PO DAILY 08/14/22 03/24/23 02/20/23 History tablet,extended release pregabalin 300 mg capsule (Lyrica) 300 mg PO BID 08/14/22 03/24/23 Unknown History potassium chloride 20 mEq 40 meq (2 x 20 mEq) PO DAILY #60 08/16/22 03/24/23 Unknown Rx tablet,extended release tabs allopurinol 300 mg tablet 300 mg PO DAILY 12/19/22 03/24/23 Unknown History duloxetine 30 mg capsule,delayed 30 mg PO DAILY 12/19/22 03/24/23 Unknown History release empagliflozin 25 mg tablet 25 mg PO DAILY 12/19/22 03/24/23 Unknown History lisinopril 40 mg tablet 40 mg PO DAILY 12/19/22 03/24/23 Unknown History magnesium oxide 400 mg PO DAILY 12/19/22 03/24/23 Unknown History polyethylene glycol 3350 17 4 g PO DAILY 12/19/22 03/24/23 Unknown History gram/dose oral powder (Miralax) prazosin 1 mg capsule 1 mg PO QPM 12/19/22 03/24/23 Unknown History rosuvastatin 10 mg tablet 10 mg PO QPM 12/19/22 03/24/23 Unknown History semaglutide 1 mg/dose (2 mg/1.5 1 mg SUBCUT Q7D 12/19/22 03/24/23 Unknown History mL) subcutaneous pen injector thiamine HCl (vitamin B1) 100 mg 100 mg PO DAILY 12/19/22 03/24/23 Unknown History tablet zinc oxide 40 % topical ointment 1 applic topical DAILY 12/19/22 03/24/23 Unknown History 2 Layer Compression Bandage #1 ea 01/22/23 03/24/23 Unknown Rx System- Coflex TLC LITE Calamine with Indicators 4 in x6 yard/4 in by 7 yard bumetanide 2 mg tablet 1 mg (1/2 x 2 mg) PO DAILY 30 days 02/26/23 03/24/23 Unknown Rx #30 tabs insulin aspart U-100 100 unit/mL See Rx Instructions .Route 02/26/23 03/24/23 Unknown Rx (3 mL) subcutaneous pen (Novolog .COMPLEX #15 mL FlexPen U-100 Insulin aspart) insulin glargine 100 unit/mL (3 15 unit (0.15 mL) SUBCUT BEDTIME 02/26/23 03/24/23 Unknown Rx mL) subcutaneous pen #15 mL Allergies Allergy/AdvReac Type Severity Reaction Status Date / Time aspirin Allergy ALGY-Anaphy Verified 03/31/23 17:06 laxis carvedilol AdvReac diarrhea Verified 03/31/23 17:06 hydralazine AdvReac vomiting Verified 03/31/23 17:06 PFSH Acute PFSH: Medical History Constipation Gout attack Acute on chronic diastolic (congestive) heart failure Hypokalemia CHF exacerbation Swelling of right upper extremity Atrial fibrillation Peripheral arterial disease CKD (chronic kidney disease) Ischemic toe ulcer Physical deconditioning Bilateral lower leg cellulitis Temporary transvenous cardiac pacemaker present BMI 40.0-44.9, adult Hyperkalemia Squamous cell carcinoma in situ Abnormal nuclear stress test Accelerated hypertension Chronic diastolic heart failure Atrial fibrillation Acute kidney injury Rhabdomyolysis Coronary artery disease Evaluated in [place], patient reports 55% narrowing unknown vessel no stent or angioplasty done PAD (peripheral artery disease) Calculus of proximal ureter Diabetic neuropathy associated with type 2 diabetes mellitus Lumbar foraminal stenosis Bradycardia Nicotine dependence, chewing tobacco, with other nicotine-induced disorders Diabetes mellitus, type II Chronic anticoagulation eliquis Osteoarthritis Obesity BMI-42 kg/m2 Hypertension Chronic kidney disease Hyperlipidemia Obstructive sleep apnea not on treatment by choice Atrial fibrillation Chronic, history of bradycardia with beta blockers, on eliquis CVA (cerebral vascular accident) residual right weakness Congestive heart failure BPH NOS w/o ur obs/LUTS PVD (peripheral vascular disease) Pes planus of both feet Renal calculus, right Surgical History Hx of colonoscopy with polypectomy Status post cardiac pacemaker procedure No pertinent past surgical history Family History Mother , 87 Diabetes CAD (coronary artery disease) Hypertension Father , 60 No problems noted. Social History Smoking and tobacco/nicotine status: current every day tobacco/nicotine user (chew tobacco) pipe Pipes smoked per week: 1 Years smoked pipe: 54 and smokeless tobacco Smokeless tobacco user: chewing tobacco Alcohol intake: former Year of sobriety/quit date alcohol: 26 y Former alcohol use details: heavy use, 5 DWI's Substance/Drug Use: former Household members: none Housing: House Marital status: service: Yes Current occupational status: retired Vitals/I&O/Wt Last Vital Signs Temp 98.0 F 03/31/23 16:55 Pulse 59 L 03/31/23 19:30 Resp 16 03/31/23 19:30 BP 171/69 03/31/23 19:30 Pulse Ox 92 03/31/23 19:30 O2 Del Method Room Air 03/31/23 19:30 Weight last 48 hrs Weight 142.428 kg Physical Exam Narrative: Patient has decreased sensation medial side of his thighs, urinary retention Only able to wiggle toes No slurring of speech No visual deficit S1, S2 Currently on room air Hemodynamic stable Complaining of back pain Abdomen distended soft Data 03/31/23 17:08 03/31/23 17:08 A&P Assessment and plan (1) Atrial fibrillation: (2) Chronic venous insufficiency: (3) Diabetes mellitus, type II: Qualifiers: Diabetes mellitus assisted insulin use: with exterminator helper termite use Diabetes mellitus complication status: with neurologic complications Diabetes mellitus complication detail: with polyneuropathy Qualified Code(s): E11.42 - Type 2 diabetes mellitus with diabetic polyneuropathy; Z79.4 - terminal manager (current) use of insulin (4) Sacroiliitis: (5) Acute low back pain: (6) Spondylolisthesis at L4-L5 level: (7) Chronic ulcer of left foot limited to breakdown of skin: (8) Chronic ulcer of right foot limited to breakdown of skin: (9) Right sided weakness: (10) Lumbar foraminal stenosis: (11) Spinal stenosis, lumbar region, with neurogenic claudication: (12) Diabetic peripheral neuropathy associated with type 2 diabetes mellitus: (13) Right foot drop: (14) Difficulty in walking: Plan Lower extremity hemiparesis My concern is related to cauda equina due to his symptoms of decreased sensation medial side of thighs, disoriented to the toes, complaining of back pain. He has leukocytosis. Blood cultures and start him on Decadron Will touch base with Dr. Wesley if he is on-call Patient is not sure if he would agree for any surgery He is not a candidate for MRI because he has a pacemaker He has seen orthopedic service in the past Will keep him n.p.o. in case he will change his mind Last Eliquis dose was today Hold Eliquis for today Leukocytosis, will request UA, place Santo catheter for urine retention Diabetes with peripheral neuropathy and diabetic foot ulcers Patient is a resident of [facility] prison Full code N.p.o. after midnight DVT prophylaxis SCDs unless he is evaluated by orthopedic service Will keep him on sliding scale Persistent hypertension, patient has received clonidine in the ER, adjust antihypertensive regimen CT abdomen pelvis showing multiple cyst noted on the kidney, three-phase renal CT recommended or renal MRI A-fib without RVR continue AV partha blocking agent Coronation of care, self interpretation of chest x-ray, concern for left lower lobe atelectasis versus infiltrate Attestations Medical Necessity Statement*: More than 2 midnights anticipated Diagnoses Longstanding persistent atrial fibrillation I48.91 Chronic venous insufficiency I87.2 Type 2 diabetes mellitus with diabetic polyneuropathy, with long-term current use of insulin E11.42; Z79.4 Diabetes mellitus assisted insulin use: with exterminator helper termite use Diabetes mellitus complication status: with neurologic complications Diabetes mellitus complication detail: with polyneuropathy Sacroiliitis M46.1 Acute low back pain M54.50 Spondylolisthesis at L4-L5 level M43.16 Chronic ulcer of left foot limited to breakdown of skin L97.521 Chronic ulcer of right foot limited to breakdown of skin L97.511 Right sided weakness R53.1 Lumbar foraminal stenosis M48.061 Spinal stenosis, lumbar region, with neurogenic claudication M48.062 Diabetic peripheral neuropathy associated with type 2 diabetes mellitus E11.42 Right foot drop M21.371 Difficulty in walking R26.2
[2023-03-31] MEDS: piperacillin-tazobactam 3.375 GM in sodium chloride 0.9% (plus) 50 ML IV (20:50)
[2023-03-31] MEDS: cefepime 2,000 MG in sodium chloride 0.9% (plus) 50 ML 100 MG IV (21:41)
[2023-03-31] MEDS: heparin 5,000 unit/mL INJ 1 mL 5000 UNIT SUBCUT (21:41)
[2023-03-31] MEDS: dexamethasone 4 mg Tablet PO (21:41)
[2023-03-31] MEDS: tamsulosin 0.4 mg Capsule PO (21:41)
--- NOTE | 2023-03-31 21:42 | PC.PHAR ---
Pharmacokinetic dosing service Date: 03/31/23 Time: 2142 Objective: Patient: Giles Guillaume Floor: 253-2 Age: 73 yo Serum creatinine: 1.6 mg/dL Height: 73.0 Inches Weight (kg): 142.428 Diagnosis: Relevant medical/social history: Cultures and sensitivities: Other labs: Assessment: IBW (kg): 79.90 Dosing wt(kg): 142.428 Estimated Creatinine clearance (ml/min): 45.8 CRCL method: Cockcroft and Gault using ibw(default). Drug selected: Vancomycin Loading dose (mg): 0 Vd (liters): 128.2 (factor used: 0.9 L/kg) Andrés (hr-1): 0.042 Half life (hrs): 16.50 Recommended dose: 1750 mg Interval: 18 hrs Infusion time (hrs): 1.5 Predicted peak (mcg/mL): 24.9 Predicted trough (mcg/mL): 12.45 Total body weight is being used for vancomycin dosing. Renal function is stable [ ] /unstable [ ] Recommendations: Give Vancomycin 1750 mg q 18 hrs with an expected Cpeak of 24.9 mcg/ml and an expected Ctrough of 12.45 mcg/ml Renal dosing of other antibiotics (review renal dosing of other medications and list guidelines here): Thank you for the consult, will continue to follow. Signature: Analy Florez [facility]
[2023-03-31] MEDS: vancomycin 1,750 MG/350 ML PIGGYBACK 233.33 MG IV (22:30)
[2023-03-31 23:46] LABS: Troponin 5 6HR Delta 9.8 ng/L (0-12)
[2023-03-31 23:47] LABS: Troponin 5 6HR 131.8 ng/L (0-15)
[2023-04-01] VITALS (8 sets, daily range): BP systolic 153–166; BP diastolic 69–88; PULSE 55–66; RESP 14–20; TEMP 36.6–37; O2SAT 92–94
[2023-04-01 05:09] LABS: Basophils % 0.2 %; Lymphocytes % 5.7 %; Mean Corpuscular HGB Conc 32.1 g/dL (30-55); Mean Corpuscular Hemoglobin 27.5 pg (27-33); Mean Corpuscular Volume 85.8 fl (82-101); Monocytes # 0.7 10^3/uL (0.2-0.9); Monocytes % 3.8 %; Neutrophils # 15.86 10^3/uL (1.8-7.7); Neutrophils % 89.8 %; Nucleated Red Blood Cells % 0 %; Platelet Count 201 10^3/cmm (157-399); Red Blood Count 5.01 10^6/uL (3.85-5.65); Red Cell Distribution Width 15.1 % (12.1-15.1); White Blood Count 17.66 10^3/uL (3.29-11.43)
[2023-04-01 05:29] LABS: Anion Gap 18.1 (5-19); Blood Urea Nitrogen 34 mg/dL (8-23); Calcium 9.6 mg/dL (8.5-10.5); Carbon Dioxide 28 mmol/L (22-29); Chloride 96 mmol/L (98-107); Creatinine Clr Calc Pharmacy 60.7356; Glucose 202 mg/dL (65-115); Magnesium 2.4 mg/dL (1.7-2.3); Osmolality Calculated 299 mOsm/kg (285-295); Potassium 4.1 mmol/L (3.5-5.1); Sodium 138 mmol/L (136-145)
[2023-04-01 08:06] LABS: Glucose Point of Care 221 mg/dL (70-110)
[2023-04-01] MEDS: metoprolol tartrate 25 mg Tablet 12.5 MG PO ×2 (08:17→22:03)
[2023-04-01] MEDS: thiamine 100 mg Tablet PO (08:19)
[2023-04-01] MEDS: allopurinol 300 mg Tablet PO (08:20)
--- NOTE | 2023-04-01 09:29 | PC.SOCIAL ---
IMM Update Pg. 2 of IMM updated; patient refused education and refused for copy to be left at bedside.
--- NOTE | 2023-04-01 10:32 | PC.CHAP ---
Pastoral Care Encounter/Spiritual Assessment Type of Contact [] Declined tube rebuilder visit [] Patient/Family/Request visit [] Outpatient visit [] Follow-up visit [] Physician referral [] Code/Alert [x] Routine visit [] Staff referral [] Actively dying [] Patient sleeping [] Family support [] [] Out of room [] Palliative care [] [] Receiving care in room [] Pre-surgical visit [] Trauma [] Long length of stay [] ICU visit [] Other: Relational/Emotional Strength [] Patient feels connected with others/family/visitors/staff [x] Distress [x] Loneliness/isolation [] Abandonment Spirituality of Patient [] Person of Christina [] Attends Voodoo of their Christina [] Believes in Prayer [] Reads Bible or Jew materials [] There are Spiritual issues to be addressed Patrol Inspector Interventions [x] Prayer [] Active listening [] Non-anxious presence [] Spiritual/emotional support [] Crisis/trauma care [] Spiritual counseling [] Bereavement support [] Provided bereavement packet [] Provided Bible/devotional materials [] Provided toy/stuffed animal, coloring book to patient or family member [] Provided Communion [] Anointing/[place]herty [] Salvation [] Completed spiritual assessment [] Other: Impact on Illness or Injury [] Angry [] Fearful [] Anxious [] Often cries [x] Exhaustion [] Unable to work [] Unable to attend anabaptist [] Unable to walk/stand [] Unable to read [] Unable to drive [] Unable to eat/drink [] Unable to sleep [] Unable to be with family [] Patient intubated [] Other: Summary Time spent with patient 15 min
[2023-04-01] MEDS: cefepime 2,000 MG in sodium chloride 0.9% (plus) 50 ML 100 MG IV ×2 (10:45→22:03)
[2023-04-01] MEDS: insulin lispro 100 unit/1 mL SUBCUT ×2 (10:53→17:40)
--- NOTE | 2023-04-01 11:11 | PC.NURSE ---
BS at lunch 207
--- NOTE | 2023-04-01 11:28 | USCV_ITS ---
Giles Guillaume Age: 73 Gender: M : 1950 Exam Date: 04/01/2023 13:01 Ordering Phys: Cali Wills MD Technologist: Oh Serrano [place] [facility] [place]: increased trop BP: 135 / 78 HR: 61 Rhythm: Sinus Technical Quality: Adequate MEASUREMENTS (Male / Female) Normal Values 2D ECHO LV Diastolic Diameter PLAX 5.0 cm 4.2 - 5.9 / 3.9 - 5.3 cm LV Systolic Diameter PLAX 3.3 cm IVS Diastolic Thickness 1.5 cm 0.6 - 1.0 / 0.6 - 0.9 cm IVS Systolic Thickness 2.2 cm LVPW Diastolic Thickness 1.4 cm 0.6 - 1.0 / 0.6 - 0.9 cm LVPW Systolic Thickness 1.3 cm LVOT Diameter 2.1 cm LV Ejection Fraction 2D Teich 62.1 % LV Ejection Fraction MOD 2C 58.1 % LV Ejection Fraction 2C AL 58.7 % LA Diameter 4.7 cm IVC Diameter 1.9 cm M-MODE Aortic Annulus Diameter 3.8 cm LA Ao Ratio MM 1.3 MV E Point Septal Separation 1.1 cm FINDINGS Left Ventricle Right Ventricle Right Atrium Left Atrium Mitral Valve Aortic Valve Tricuspid Valve Pulmonic Valve Pericardium Aorta IVC CONCLUSIONS Limited echocardiogram performed to assess LV systolic function. LV systolic function is normal with EF 55 -60%. No regional wall motion abnormalities are seen. Kervin Segundo MD (Electronically Signed) Final Date: 02 April 2023 12:05 S
[2023-04-01] MEDS: pantoprazole DR 40 mg Tablet PO (13:14)
[2023-04-01] MEDS: apixaban 5 mg Tablet PO ×2 (13:14→16:52)
[2023-04-01] MEDS: bumetanide 0.25 mg/mL SDV 10 mL 3 MG IVP (13:14)
[2023-04-01] MEDS: finasteride 5 mg Tablet PO (13:14)
[2023-04-01] MEDS: vancomycin 1,750 MG/350 ML PIGGYBACK 233.33 MG IV (15:37)
[2023-04-01] MEDS: prazosin 1 mg Capsule PO (16:53)
[2023-04-01] MEDS: atorvastatin 40 mg Tablet PO (16:53)
[2023-04-01] MEDS: pregabalin 150 mg Capsule 300 MG PO (16:53)
--- NOTE | 2023-04-01 20:50 | PM.PN ---
Subjective Subjective: He is asking me why he is NPO. Discussed with him noted concern for cauda equina syndrome. He does report he has been having urinary and bowel incontinence. On questioning he states that it has actually been somewhat better since his last hospitalization. He did develop bilateral lower extremity pain which made it difficult for him to ambulate. Has had more issues trying to walk. Vitals/I&O/Wt Last Vital Signs Temp 98.6 F 04/01/23 19:56 Pulse 60 04/01/23 19:56 Resp 19 H 04/01/23 19:56 BP 153/69 04/01/23 19:56 Pulse Ox 94 04/01/23 19:56 O2 Del Method Room Air 04/01/23 18:43 04/01/23 04/01/23 04/01/23 06:59 14:59 22:59 Intake Total 350 / 450 410 / 410 590 / 1000 Output Total 800 / 800 Balance 350 / 450 -390 / -390 590 / 200 Weight last 48 hrs Weight 145.178 kg Weight 142.428 kg Physical Exam Const: COMMON NORMALS: patient oriented x3 and alert GENERAL APPEARANCE: cooperative NUTRITIONAL APPEARANCE: obese ORIENTATION/CONSCIOUSNESS: Yes awake HENMT: COMMON NORMALS: oropharynx normal Neck/C-Spine: COMMON NORMALS: no JVD Resp: COMMON NORMALS: normal respiratory effort and clear to auscultation bilaterally AUSCULTATION: clear to auscultation bilaterally Cardio: COMMON NORMALS: no JVD, regular rhythm, S1 normal heart sound present, S2 normal heart sound present and No murmurs present (Cardio) RHYTHM: regular rhythm HEART SOUNDS: S1 normal heart sound present and S2 normal heart sound present GI: COMMON NORMALS: Normal to inspection, nondistended, normoactive bowel sounds present, Soft to palpation and non-tender PALPATION: Yes Soft to palpation Extremity: COMMON NORMALS: no joint enlargement NARRATIVE EXTREMITY EXAM: Chronic stasis dermatitis of bilateral lower extremities. GENERAL: Yes edema (1-2+) Neuro: COMMON NORMALS: patient oriented x3 and moves all extremities SENSORIUM/ORIENTATION: Yes alert Skin: COMMON NORMALS: no rashes or lesions noted GENERAL SKIN EXAM: no rashes or lesions noted Data 04/01/23 04:32 04/01/23 04:32 A&P Assessment and plan (1) Atrial fibrillation: (2) Chronic venous insufficiency: (3) Diabetes mellitus, type II: Qualifiers: Diabetes mellitus exterminator termite insulin use: with [facility] use Diabetes mellitus complication status: with neurologic complications Diabetes mellitus complication detail: with polyneuropathy Qualified Code(s): E11.42 - Type 2 diabetes mellitus with diabetic polyneuropathy; Z79.4 - prison (current) use of insulin (4) Sacroiliitis: (5) Acute low back pain: (6) Spondylolisthesis at L4-L5 level: (7) Chronic ulcer of left foot limited to breakdown of skin: (8) Chronic ulcer of right foot limited to breakdown of skin: (9) Right sided weakness: (10) Lumbar foraminal stenosis: (11) Spinal stenosis, lumbar region, with neurogenic claudication: (12) Diabetic peripheral neuropathy associated with type 2 diabetes mellitus: (13) Right foot drop: (14) Difficulty in walking: Plan Lower extremity hemiparesis: Discussed with patient regarding weakness in his lower extremities, saddle anesthesia, urinary bladder and bowel incontinence. He is asking me why he is n.p.o. Discussed with him concern by admitting team regarding cauda equina syndrome, consultation with orthospine surgery. His Eliquis has been held. Discussed with patient concern expressed for cauda equina syndrome, a condition in need for urgent decompression to avoid deficits becoming permanent, but he tells me that he has had symptoms for about a month, although he recently has had more pain in lower extremities, has been weaker at least partially due to worsened pain making it difficult for him to stand up. Lower extremities have been weak, however, he does report incontinence. Denies sensory abnormality of lower extremities. Orthopedic surgeon is not currently available, however, the physician research lab assistant is here and could see the patient. He tells me, however, that he has previously spoken with orthospine regarding surgery and does not want to pursue it and/or speak with them again. He understands the risk of permanence of deficits, although at the same time given protracted duration of symptoms certainly there may be no guarantee that surgery may relieve his symptoms in the first place. However, discussed concern for possibility of progression of symptoms in the future. He is still stating that his mind is unchanged. He would like to pursue rehabilitation, and is wanting to work with physical therapy, but would like to also have his walker brought [place] from the [place]. Reviewed vitals, CBC, BMP, magnesium. Discussed with renal case manager. Physical therapist. Add fall precautions. Pain control. He would like to resume his pregabalin. Tylenol as needed. Continue Percocet as needed. Discussed possible adverse effects, including increase risk of falls. Continue steroid for now with dexamethasone, at risk of hyperglycemia, worsening blood pressure. Monitor blood glucose, blood pressures. Troponin elevation: Reviewed troponin series. EKG. He has a history of coronary artery disease, unstented, on prior angiogram with 55% stenosis in a vessel reported in the past in [facility], no stents. He reports a syncopal episode about a month ago. He does have some chronic elevation of troponin but usually 40s-60s, however, this admission higher than any prior, up to 122 baseline, 106 at 2 hrs., up to 132 at 6 hours with kidney function at baseline or slightly better than previously. He is not on aspirin. He is on Eliquis. Statin. Not on beta-angela. He does not have chest pain. This may be demand ischemia, although troponin is worse than usual. Discussed with him we will additionally assess with echocardiogram and given prior known coronary disease he may benefit additionally from assessment with stress test. Continue Eliquis. Added aspirin. Start beta-angela. Continue statin. Monitor on telemetry. Edema: He has been gaining weight, with increasing edema in lower extremities superimposed on chronic venous stasis. Fluid overload with his CHF exacerbation. Assess TTE. Will switch his diuretic to IV currently with bumetanide 3 mg starting today. Leukocytosis: Reviewed WBC, noted leukocytosis 17.6, predominantly neutrophilic 15.86. Unclear etiology. On presentation thought possibly retaining urine. He states does not like urinary catheters. Discussed with him risk of neurogenic urinary bladder, he declines intermittent self-catheterization. Requested monitoring with bladder scans. Noted bladder scan around lunchtime 200 mL. Monitor for urinary retention discussed with him risks of retention, including infection, bladder distention, rupture with potentially severe/life threatening consequences. He states he would be willing to follow-up with urology. Might consider suprapubic catheter but definitely will not self catheterize. Otherwise some stasis in bilateral lower extremities, minimal erythema bilaterally, less likely cellulitis, but will reassess symptoms, monitor for fever, reassess WBC.Reviewed chest x-ray, CT abdomen pelvis. UA. Denies diarrhea. Microscopic hematuria: Discussed with him. Discussed with him incidental finding on CT abdomen pelvis and the left kidney with unidentified structure. Will benefit from additional assessment with three-phase contrast study to further assess including for malignancy. He is not a candidate for MRI. Hypertension: Add metoprolol. Resume spironolactone.Bumex as above. Cardiac diet. Diabetes: Reviewed Accu-Cheks, his usual doses 30 units of Lantus. Resume. Continue sliding scale insulin. A-fib without RVR continue AV partha blocking agent: Continue Eliquis. Added metoprolol. Attestations Medical Necessity Statement*: Continue admission for assessment and management of lower extremity hemiparesis, assessment of worsened troponin elevation, leukocytosis. Diagnoses Longstanding persistent atrial fibrillation I48.91 Chronic venous insufficiency I87.2 Type 2 diabetes mellitus with diabetic polyneuropathy, with long-term current use of insulin E11.42; Z79.4 Diabetes mellitus [facility] insulin use: with [facility] use Diabetes mellitus complication status: with neurologic complications Diabetes mellitus complication detail: with polyneuropathy Sacroiliitis M46.1 Acute low back pain M54.50 Spondylolisthesis at L4-L5 level M43.16 Chronic ulcer of left foot limited to breakdown of skin L97.521 Chronic ulcer of right foot limited to breakdown of skin L97.511 Right sided weakness R53.1 Lumbar foraminal stenosis M48.061 Spinal stenosis, lumbar region, with neurogenic claudication M48.062 Diabetic peripheral neuropathy associated with type 2 diabetes mellitus E11.42 Right foot drop M21.371 Difficulty in walking R26.2
--- NOTE | 2023-04-01 21:11 | PC.NURSE ---
pt blood sugar is 246
[2023-04-01] MEDS: insulin glargine 100 units/1 mL 30 UNIT SUBCUT (22:02)
[2023-04-01] MEDS: tamsulosin 0.4 mg Capsule PO (22:02)
[2023-04-01] MEDS: dexamethasone 4 mg Tablet PO (22:02)
[2023-04-01] MEDS: oxyCODONE-APAP 10-325 mg Tablet 1 TAB PO (22:06)
--- NOTE | 2023-04-01 22:14 | PC.NURSE ---
the pt reports he would rather not take oxycodone-acetameniphen due to gastric upset. will pass this on to other staff.
[2023-04-02] VITALS (9 sets, daily range): BP systolic 154–184; BP diastolic 67–92; PULSE 53–66; RESP 15–18; TEMP 36.4–37; O2SAT 94–96
--- NOTE | 2023-04-02 04:37 | PC.NURSE ---
During med pass the pt questioned all medications to be given, this nurse educated on each. Then, pt repeatedly told this nurse that he had already received his Tamsulosin earlier from the day shift nurse. This nurse explained to him the only other dose that had been scanned as administered was the initial dose given when he was first admitted. The patient then stated I need to go back to [facility]. This nurse asked why, to which the pt replied Because no one here knows their ass from a hole in the ground! This nurse asked why he felt this way and pt just chuckled. The pt remained demeaning to this nurse and other staff, using vulgar language and unkind. When asked to use appropriate and respectful language, pt would just chuckle and look away. Charge nurse informed of behavior.
[2023-04-02 05:10] LABS: Basophils % 0.1 %; Hematocrit 41.6 % (37-53); Lymphocytes # 1.1 10^3/uL (0.8-4.8); Lymphocytes % 7.4 %; Mean Corpuscular HGB Conc 32.2 g/dL (30-55); Mean Corpuscular Hemoglobin 27.2 pg (27-33); Mean Corpuscular Volume 84.4 fl (82-101); Mean Platelet Volume 11.4 fL (7.4-10.4); Monocytes # 0.5 10^3/uL (0.2-0.9); Monocytes % 3.3 %; Neutrophils # 13.69 10^3/uL (1.8-7.7); Neutrophils % 88.7 %; Nucleated Red Blood Cells % 0 %; Platelet Count 236 10^3/cmm (157-399); Red Blood Count 4.93 10^6/uL (3.85-5.65); Red Cell Distribution Width 14.7 % (12.1-15.1); White Blood Count 15.44 10^3/uL (3.29-11.43)
[2023-04-02 05:28] LABS: Blood Urea Nitrogen 46 mg/dL (8-23); Calcium 9.7 mg/dL (8.5-10.5); Carbon Dioxide 29 mmol/L (22-29); Chloride 97 mmol/L (98-107); Creatinine Clr Calc Pharmacy 60.7356; Glucose 239 mg/dL (65-115); Osmolality Calculated 306 mOsm/kg (285-295); Sodium 138 mmol/L (136-145)
[2023-04-02] MEDS: thiamine 100 mg Tablet PO (08:03)
[2023-04-02] MEDS: metoprolol tartrate 25 mg Tablet 12.5 MG PO ×2 (08:04→21:26)
[2023-04-02] MEDS: dexamethasone 4 mg Tablet PO ×4 (08:04→21:26)
[2023-04-02] MEDS: pregabalin 150 mg Capsule 300 MG PO ×2 (08:04→17:18)
[2023-04-02] MEDS: allopurinol 300 mg Tablet PO (08:04)
[2023-04-02] MEDS: apixaban 5 mg Tablet PO ×2 (08:04→17:17)
--- NOTE | 2023-04-02 08:32 | PC.NURSE ---
Blood sugar 250 per Dexcom. Refuses finger stick. Refuses Sliding Scale insulin.
--- NOTE | 2023-04-02 09:16 | USCV_ITS ---
Guillaume Giles Age: 73 Gender: M : 1950 Exam Date: 04/02/2023 10:14 Ordering Phys: Cali Wills MD Technologist: Oh Serrano Exam Location: [facility] Indication: bilat edema PROCEDURES: The venous duplex Doppler examination of both lower extremities was performed in the standard fashion. The following venous structures were evaluated: common femoral vein, profunda vein, proximal portion of the greater saphenous vein, superficial femoral vein, and the popliteal vein. FINDINGS: Normal 2-D Doppler and augmentation and compressibility throughout the lower extremity venous structures. Additional imaging through the proximal calf veins also reveals no thrombus. Limited evaluation of the greater saphenous vein is patent with no thrombus. CONCLUSIONS No evidence of right lower extremity DVT. No evidence of left lower extremity DVT. Roosevelt Randhawa MD (Electronically Signed) Final Date: 02 April 2023 11:02 S
[2023-04-02] MEDS: cefepime 2,000 MG in sodium chloride 0.9% (plus) 50 ML 100 MG IV ×2 (09:40→21:26)
[2023-04-02] MEDS: vancomycin 1,750 MG/350 ML PIGGYBACK 233 MG IV (10:39)
--- NOTE | 2023-04-02 11:45 | PC.NURSE ---
blood sugar per dexcom 329. 12 units insulin given per sliding scale
[2023-04-02] MEDS: insulin lispro 100 unit/1 mL SUBCUT ×2 (11:46→17:17)
[2023-04-02] MEDS: bumetanide 0.25 mg/mL SDV 10 mL 3 MG IVP (13:54)
--- NOTE | 2023-04-02 16:55 | PC.NURSE ---
blood sugar per dexcom 317
[2023-04-02] MEDS: oxyCODONE-APAP 10-325 mg Tablet 1 TAB PO ×2 (17:19→21:26)
[2023-04-02] MEDS: prazosin 1 mg Capsule PO (17:20)
[2023-04-02] MEDS: atorvastatin 40 mg Tablet PO (17:20)
--- NOTE | 2023-04-02 19:42 | PC.NURSE ---
blood sugar is 390
--- NOTE | 2023-04-02 20:19 | P.PN_ITS ---
Subjective 2 Subjective: Denies chest pain. Today he is feeling slightly stronger. Pain and burning resolved in lower extremities. Has not worked with physical therapy yet. Vitals/I&O/Wt Last Vital Signs Temp 97.6 F 04/02/23 19:42 Pulse 61 04/02/23 19:42 Resp 18 04/02/23 19:42 BP 162/69 04/02/23 19:42 Pulse Ox 96 04/02/23 19:42 O2 Del Method Room Air 04/02/23 08:15 04/02/23 04/02/23 04/02/23 06:59 14:59 22:59 Intake Total 240 / 1530 820 / 820 120 / 940 Output Total 1300 / 2100 300 / 300 Balance -1060 / -570 820 / 820 -180 / 640 Weight last 48 hrs Weight 145.178 kg Weight 145.178 kg Physical Exam 2 Const: COMMON NORMALS: patient oriented x3 and alert GENERAL APPEARANCE: c ooperative NUTRITIONAL APPEARANCE: obese ORIENTATION/CONSCIOUSNESS: Yes awake HENMT: COMMON NORMALS: oropharynx normal Neck/C-Spine: COMMON NORMALS: no JVD Resp: COMMON NORMALS: normal respiratory effort and clear to auscultation bilaterally AUSCULTATION: clear to auscultation bilaterally Cardio: COMMON NORMALS: no JVD, regular rhythm, S1 normal heart sound present, S2 normal heart sound present and No murmurs present (Cardio) RHYTHM: regular rhythm HEART SOUNDS: S1 normal heart sound present and S2 normal heart sound present GI: COMMON NORMALS: Normal to inspection, nondistended, normoactive bowel sounds present, Soft to palpation and non-tender PALPATION: Yes Soft to palpation Extremity: COMMON NORMALS: no joint enlargement NARRATIVE EXTREMITY EXAM: Chronic stasis dermatitis of bilateral lower extremities. GENERAL: Yes edema (1+ Improvement in swelling) Neuro: COMMON NORMALS: patient oriented x3 and moves all extremities S ENSORIUM/ORIENTATION: Yes alert Skin: COMMON NORMALS: no rashes or lesions noted GENERAL SKIN EXAM: no rashes or lesions noted Data 04/02/23 04:32 04/02/23 04:32 A&P Assessment and plan (1) Atrial fibrillation: (2) Chronic venous insufficiency: (3) Diabetes mellitus, type II: Qualifiers: Diabetes mellitus detention insulin use: with terminal makeup operator use Diabetes mellitus complication status: with neurologic complications Diabetes mellitus complication detail: with polyneuropathy Qualified Code(s): E11.42 - Type 2 diabetes mellitus with diabetic polyneuropathy; Z79.4 - long term care pharmacist (current) use of insulin (4) Sacroiliitis: (5) Acute low back pain: (6) Spondylolisthesis at L4-L5 level: (7) Chronic ulcer of left foot limited to breakdown of skin: (8) Chronic ulcer of right foot limited to breakdown of skin: (9) Right sided weakness: (10) Lumbar foraminal stenosis: (11) Spinal stenosis, lumbar region, with neurogenic claudication: (12) Diabetic peripheral neuropathy associated with type 2 diabetes mellitus: (13) Right foot drop: (14) Difficulty in walking: Plan Lower extremity hemiparesis: Reports some improvement in strength today. His walker was brought in. Did not want to work with therapy without it. With steroid he is at risk of hyperglycemia, and sugars have worsened. Increase Lantus to 33 units. Continue sliding scale. Reviewed vitals, CBC, BMP, magnesium. Discussed with case advocate. Physical therapist. Add fall precautions. Pain control. He would like to resume his pregabalin. Tylenol as needed. Continue Percocet as needed. Discussed possible adverse effects, including increase risk of falls. Continue steroid for now with dexamethasone, at risk of hyperglycemia, worsening blood pressure. Monitor blood glucose, blood pressures. Troponin elevation: Reviewed vitals, CBC, echocardiogram. Denies chest pain. Will request stress test, he is agreeable for assessment. Reviewed troponin series. EKG. He has a history of coronary artery disease, unstented, on prior angiogram with 55% stenosis in a vessel reported in the past in [facility], no stents. He reports a syncopal episode about a month ago. He does have some chronic elevation of troponin but usually 40s-60s, however, this admission higher than any prior, up to 122 baseline, 106 at 2 hrs., up to 132 at 6 hours with kidney function at baseline or slightly better than previously. He is not on aspirin. He is on Eliquis. Statin. Not on beta-angela. He does not have chest pain. This may be demand ischemia, although troponin is worse than usual. Discussed with him we will additionally assess with echocardiogram and given prior known coronary disease he may benefit additionally from assessment with stress test. Continue Eliquis. Added aspirin. Start beta- angela. Continue statin. Monitor on telemetry. Edema: Reviewed chemistry, potassium, BUN, creatinine. Continue IV Bumex for diastolic CHF decompensation. Swelling with improvement. At risk of electrolyte deficiency with IV diuretic, reassess chemistry. At risk of renal dysfunction, reassess renal function. Leukocytosis: Reviewed WBC, noted improving, down to 15.4. Empirically on antibiotics with cefepime, vancomycin. Improvement in swelling of lower extremities, some improvement erythema. Possibly was developing cellulitis of lower extremities superimposed on chronic dermatitis with worsening edema. Monitor for urinary retention discussed with him risks of retention, including infection, bladder distention, rupture with potentially severe/life threatening consequences. He states he would be willing to follow-up with urology. Might consider suprapubic catheter but definitely will not self catheterize. Otherwise some stasis in bilateral lower extremities, minimal erythema bilaterally, less likely cellulitis, but will reassess symptoms, monitor for fever, reassess WBC.Reviewed chest x-ray, CT abdomen pelvis. UA. Denies diarrhea. Microscopic hematuria: incidental finding on CT abdomen pelvis and the left kidney with unidentified structure. Will benefit from additional assessment with three-phase contrast study to further assess including for malignancy. He is not a candidate for MRI. Hypertension: metoprolol. spironolactone. Bumex as above. Cardiac diet. Diabetes: Reviewed Accu-Cheks, hypoglycemic today. Increase Lantus to 33 units. Continue sliding scale insulin. Consistent carb diet. A-fib without RVR continue AV partha blocking agent: Continue Eliquis. metoprolol. Attestations 2 Medical Necessity Statement*: Continue admission for assessment management of troponin elevation in a gentleman with underlying coronary disease, diastolic CHF exacerbation, lower extremity hemiparesis. and High MDM includes amount and/or complexity of data reviewed/ordered [ previous or external records, resulted lab(s)/test(s), ordered lab(s)/test(s) and other healthcare professional discussion] and described risk of complication, morbidity or mortality of management as documented Diagnoses Longstanding persistent atrial fibrillation I48.91 Chronic venous insufficiency I87.2 Type 2 diabetes mellitus with diabetic polyneuropathy, with long-term current use of insulin E11.42; Z79.4 Diabetes mellitus terminal makeup operator insulin use: with detention use Diabetes mellitus complication status: with neurologic complications Diabetes mellitus complication detail: with polyneuropathy Sacroiliitis M46.1 Acute low back pain M54.50 Spondylolisthesis at L4-L5 level M43.16 Chronic ulcer of left foot limited to breakdown of skin L97.521 Chronic ulcer of right foot limited to breakdown of skin L97.511 Right sided weakness R53.1 Lumbar foraminal stenosis M48.061 Spinal stenosis, lumbar region, with neurogenic claudication M48.062 Diabetic peripheral neuropathy associated with type 2 diabetes mellitus E11.42 Right foot drop M21.371 Difficulty in walking R26.2
[2023-04-02 20:58] LABS: Uric Acid 5.9 mg/dL (3.4-7.0)
--- NOTE | 2023-04-02 21:14 | PC.NURSE ---
Current blood sugar on Dexcom 400.
[2023-04-02] MEDS: insulin glargine 100 units/1 mL 33 UNIT SUBCUT (21:16)
[2023-04-02] MEDS: tamsulosin 0.4 mg Capsule PO (21:26)
[2023-04-03] VITALS (7 sets, daily range): BP systolic 149–188; BP diastolic 60–98; PULSE 61–70; RESP 16–18; TEMP 36.3–37; O2SAT 94–97
--- NOTE | 2023-04-03 | ECG_ITS ---
[facility] Test Date: 2023-04-03 Pat Name: Giles Guillaume Department: Room: 253 Gender: Male Director Of Education: Sourav Arriaga : 1950 Requested By: Cali Wills Order Number: [id number] Shelton MD: Kervin Segundo M.D. Interpretive Statements NAME OF STUDY: LEXISCAN SESTAMIBI STRESS TEST INDICATION: [elevated trop, cad, ] Procedure: At the baseline, the blood pressure was 185/105 mmHg with a heart rate of 62 bpm. The electrocardiogram showed atrial fibrillation with intermittent paced rhythm The Lexiscan was infused over a period of 20 seconds. A total of 0.4 mg of Lexiscan was infused. The stress phase was continued for a total of 5 minutes. Heart rate was at the end of stress phase was 70 bpm and a blood pressure of 173/97 mmHg. The EKG at the peak infusion revealed atrial fibrillation with PVCs and intermittent paced rhythm. Sestamibi was injected 20 seconds after the Lexiscan infusion. Blood pressure at the end of recovery phase was 183/94 mmHg with a heart rate of 72 bpm. Conclusion: 1. Normal EKG response to Lexiscan infusion 2. No Lexiscan induced chest pain or cardiac arrhythmia. 3. Normal blood pressure and heart rate response. 4. Sestamibi/sestamibi perfusion scan pending; see separate report. Electronically Signed On 05-03-2023 11:21:41 RECORDS MANAGEMENT ENGINEER by Kervin Segundo M.D. [email or web address]
[2023-04-03 03:01] LABS: Basophils % 0.1 %; Hematocrit 39.7 % (37-53); Lymphocytes # 1.2 10^3/uL (0.8-4.8); Lymphocytes % 9.7 %; Mean Corpuscular HGB Conc 32.5 g/dL (30-55); Mean Corpuscular Hemoglobin 27.3 pg (27-33); Mean Corpuscular Volume 84.1 fl (82-101); Monocytes # 0.3 10^3/uL (0.2-0.9); Monocytes % 2.7 %; Neutrophils # 10.45 10^3/uL (1.8-7.7); Neutrophils % 86.9 %; Nucleated Red Blood Cells % 0 %; Platelet Count 252 10^3/cmm (157-399); Red Blood Count 4.72 10^6/uL (3.85-5.65); Red Cell Distribution Width 14.6 % (12.1-15.1); White Blood Count 12.03 10^3/uL (3.29-11.43)
[2023-04-03 03:24] LABS: Anion Gap 16.3 (5-19); Blood Urea Nitrogen 64 mg/dL (8-23); Calcium 9.4 mg/dL (8.5-10.5); Carbon Dioxide 28 mmol/L (22-29); Chloride 99 mmol/L (98-107); Creatinine Clr Calc Pharmacy 60.7356; Glucose 343 mg/dL (65-115); Osmolality Calculated 320 mOsm/kg (285-295); Potassium 4.3 mmol/L (3.5-5.1); Sodium 139 mmol/L (136-145)
[2023-04-03 03:26] LABS: Vancomycin Trough 21.6 ug/mL (10-15)
[2023-04-03 03:27] LABS: Magnesium 2.7 mg/dL (1.7-2.3)
[2023-04-03] MEDS: regadenoson 0.4 Mg/5 ml Syringe IVP (07:29)
--- NOTE | 2023-04-03 07:59 | PC.SOCIAL ---
IMM Not Updated Pt refused for IMM to be updated.
--- NOTE | 2023-04-03 08:56 | PC.NURSE ---
Blood sugar at 08:23 per dexcom is 359.
[2023-04-03] MEDS: metoprolol tartrate 25 mg Tablet 12.5 MG PO (10:26)
[2023-04-03] MEDS: pregabalin 150 mg Capsule 300 MG PO (10:26)
[2023-04-03] MEDS: dexamethasone 4 mg Tablet PO ×2 (10:26→12:39)
[2023-04-03] MEDS: thiamine 100 mg Tablet PO (10:26)
[2023-04-03] MEDS: finasteride 5 mg Tablet PO (10:27)
[2023-04-03] MEDS: allopurinol 300 mg Tablet PO (10:28)
[2023-04-03] MEDS: spironolactone 25 mg Tablet 50 MG PO (10:28)
[2023-04-03] MEDS: apixaban 5 mg Tablet PO (10:28)
[2023-04-03] MEDS: pantoprazole DR 40 mg Tablet PO (10:29)
[2023-04-03] MEDS: cefepime 2,000 MG in sodium chloride 0.9% (plus) 50 ML 100 MG IV (10:30)
[2023-04-03] MEDS: insulin lispro 100 unit/1 mL SUBCUT ×2 (10:33→12:39)
[2023-04-03] MEDS: oxyCODONE-APAP 10-325 mg Tablet 1 TAB PO (10:37)
--- NOTE | 2023-04-03 11:17 | PC.NURSE ---
Blood sugar per dexcom is 364.
[2023-04-03] MEDS: bumetanide 0.25 mg/mL SDV 10 mL 3 MG IVP (12:39)
[2023-04-03] MEDS: vancomycin 1,750 MG/350 ML PIGGYBACK 233.33 MG IV (12:40)
--- NOTE | 2023-04-03 13:18 | P.DS_ITS ---
Discharge Providers Date of Admission: 03/31/23 20:44 Date of Discharge: April 03, 2023 Attending Provider at Admission: Nik Douglas MD Attending Provider at Discharge: Cali Wills Primary Care Provider: Jessica Bui MD Diagnoses at Discharge Discharge Diagnosis (1) Atrial fibrillation: Status: Acute Permanent problem details: Chronic, history of bradycardia with beta blockers, on eliquis (2) Chronic venous insufficiency: Status: Acute (3) Diabetes mellitus, type II: Status: Acute Qualifiers: Diabetes mellitus complication detail: with polyneuropathy Diabetes mellitus complication status: with neurologic complications Diabetes mellitus exterminator termite insulin use: with longterm use Qualified Code(s): E11.42 - Type 2 diabetes mellitus with diabetic polyneuropathy; Z79.4 - FPC (current) use of insulin (4) Sacroiliitis: Status: Acute (5) Acute low back pain: Status: Acute (6) Spondylolisthesis at L4-L5 level: Status: Acute (7) Chronic ulcer of left foot limited to breakdown of skin: Status: Acute (8) Chronic ulcer of right foot limited to breakdown of skin: Status: Acute (9) Right sided weakness: Status: Acute (10) Lumbar foraminal stenosis: Status: Chronic (11) Spinal stenosis, lumbar region, with neurogenic claudication: Status: Acute (12) Diabetic peripheral neuropathy associated with type 2 diabetes mellitus: Status: Acute (13) Right foot drop: Status: Acute (14) Difficulty in walking: Status: Acute Reason for Visit Reason for Visit: weakness Hospital Course Hospital Course 73-year-old gentleman came into ER from [facility] for assessment due to recently worsening edema, pain and burning in lower extremities, weakness, inability to stand or ambulate, recently with history of spinal stenosis, neurogenic claudication, recently admitted also for treatment of pneumonia, CHF, on presentation here there was concern for cauda equina syndrome, however, on discussion with patient despite risks of persistence of deficits, progression of illness worsening disability and other complications including neurogenic blad shilpa he declined consideration of surgery, was additionally assessed and treated for decompensated diastolic CHF, with noted troponin elevation higher than prior with past history of coronary disease, 50% stenosis in the vessel on prior angiogram, no stents, was treated with IV diuretics with improvement in swelling, with leukocytosis on presentation, bilateral lower extremity erythema likely with developing cellulitis superimposed on the swelling, with treatment erythema resolved, swelling decreased, leukocytosis is resolving. There was no DVT on lower extremity duplex. He is feeling better. During hospitalization treated with dexamethasone with overall improvement in symptoms and strength in lower extremities. He declined consideration of self- catheterization, discussed risks of neurogenic bladder, bladder distention, complications including rupture, he knows to seek medical attention immediately in case of any difficulties with voiding. Was periodically monitored with bladder scan in the hospital. No symptoms of retention for now. Please monitor. Continue physical therapy. Follow-up with orthopedics. 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 Please continue to optimize cardiovascular risk factors including hypertension, diabetes, with steroid his sugars are elevated, insulin is increased, please follow-up sugars, consider further adjustment of insulin. Visit with him options for weight loss. He is asked to follow-up with cardiology in office for reassessment as well and states has an appointment on April 14. He did have noted microscopic hematuria, please follow-up. Please follow-up 4.3 cm hypodense structure in inferior pole of the right kidney, does not meet imaging criteria for simple cyst. Recommended further assessment with either three-phase renal CT or MRI, but would need to be done in a facility where MRI can be performed with a pacemaker, possibly [place]. Physical Exam Const: COMMON NORMALS: patient oriented x3 and alert GENERAL APPEARANCE: cooperative ORIENTATION/CONSCIOUSNESS: Yes awake HENMT: COMMON NORMALS: oropharynx normal Neck/C-Spine: COMMON NORMALS: no JVD Resp: COMMON NORMALS: normal respiratory effort and clear to auscultation bilaterally AUSCULTATION: clear to auscultation bilaterally Cardio: COMMON NORMALS: no JVD, regular rhythm, S1 normal heart sound present, S2 normal heart sound present and No murmurs present (Cardio) RHYTHM: regular rhythm HEART SOUNDS: S1 normal heart sound present and S2 normal heart sound present GI: COMMON NORMALS: Normal to inspection, nondistended, normoactive bowel so unds present, Soft to palpation and non-tender PALPATION: Yes Soft to palpation Extremity: COMMON NORMALS: no joint enlargement and no pedal edema Neuro: COMMON NORMALS: patient oriented x3 and moves all extremities SENSORIUM/ORIENTATION: Yes alert Skin: COMMON NORMALS: no rashes or lesions noted GENERAL SKIN EXAM: no rashes or lesions noted Discharge Data Studies Completed and Pending Completed Studies During Hospitalization Category Date Time Status CT abdomen pelvis wo con [id number] Stat Cat Scan 03/31/23 17:44 Completed Cardiac Stress Test MIBI [Sestamibi Stress Test Request Exams 04/03/23 08:00 Draft ] Routine XR chest 1V portable [id number] Stat Exams 03/31/23 16:47 Completed NM steff perf SPECT r/s* [id number] Routine Nuc Med 04/03/23 20:10 [place] [id number] Routine Ultrasound 04/02/23 09:16 Completed CV. echo limited [id number] Routine Ultrasound 04/01/23 11:28 Completed Pending at discharge Category Date Time Status Basic Metabolic Panel AM LABS Lab 04/04/23 04:00 Ordered Blood Cultures ([facility]) Routine Lab 03/31/23 20:38 Received Blood Cultures ([facility]) Routine Lab 03/31/23 20:45 Received COVID [SARS Covid-2 Antigen] Routine Lab 04/03/23 13:09 Uncollected Complete Blood Count w/Auto AM LABS Lab 04/04/23 04:00 Ordered Radiology Impressions Chest X-Ray 03/31/23 16:47 IMPRESSION: No acute findings. Abdomen/Pelvis CT 03/31/23 17:44 IMPRESSION: 1. Mildly complex 4.3 cm hypodense structure in the inferior pole of the right kidney which does not meet imaging criteria for a simple cyst and a 2.6 cm structure measuring 38 Hounsfield units in the inferior pole of the left kidney. These are incompletely assessed on this examination and a three-phase renal CT or renal MRI may help to further evaluate these findings. 2. No bowel obstruction or inflammatory process associated with the bowel. 3. No free air or significant free fluid in the abdomen or pelvis. 4. The appendix images normally. Laboratory Results WBC 12.03 10^3/uL (3.29-11.43) H 04/03/23 02:50 RBC 4.72 10^6/uL (3.85-5.65) 04/03/23 02:50 Hgb 12.90 g/dL (11.27-16.99) 04/03/23 02:50 Hct 39.7 % (37-53) 04/03/23 02:50 MCV 84.1 fl (82-101) 04/03/23 02:50 MCH 27.3 pg (27-33) 04/03/23 02:50 MCHC 32.5 g/dL (30-55) 04/03/23 02:50 RDW 14.6 % (12.1-15.1) 04/03/23 02:50 Plt Count 252 10^3/cmm (157-399) 04/03/23 02:50 MPV 11.0 fL (7.4-10.4) H 04/03/23 02:50 Neut % (Auto) 86.9 % 04/03/23 02:50 Lymph % (Auto) 9.7 % 04/03/23 02:50 Dukes % (Auto) 2.7 % 04/03/23 02:50 Eos % (Auto) 0.0 % 04/03/23 02:50 Baso % (Auto) 0.1 % 04/03/23 02:50 Neut # (Auto) 10.45 10^3/uL (1.8-7.7) H 04/03/23 02:50 Lymph # (Auto) 1.2 10^3/uL (0.8-4.8) 04/03/23 02:50 Dukes # (Auto) 0.3 10^3/uL (0.2-0.9) 04/03/23 02:50 Eos # (Auto) 0.0 10^3/uL (0.0-0.8) 04/03/23 02:50 Baso # (Auto) 0.0 10^3/uL (0.0-0.1) 04/03/23 02:50 Nucleated RBC % (auto) 0 % 04/03/23 02:50 Nucleated RBCs # 0.0 /100WBC 04/03/23 02:50 Sodium 139 mmol/L (136-145) 04/03/23 02:50 Potassium 4.3 mmol/L (3.5-5.1) 04/03/23 02:50 Chloride 99 mmol/L (98-107) 04/03/23 02:50 Carbon Dioxide 28 mmol/L (22-29) 04/03/23 02:50 Anion Gap 16.3 (5-19) 04/03/23 02:50 BUN 64 mg/dL (8-23) H 04/03/23 02:50 Creatinine 1.6 mg/dL (0.7-1.2) H 04/03/23 02:50 GFR Calculation Not Reportable 04/03/23 02:50 Glucose 343 mg/dL (65-115) H 04/03/23 02:50 POC Glucose 221 mg/dL (70-110) H 04/01/23 08:02 Calculated Osmolality 320 mOsm/kg (285-295) H 04/03/23 02:50 Uric Acid 5.9 mg/dL (3.4-7.0) 04/02/23 04:32 Calcium 9.4 mg/dL (8.5-10.5) 04/03/23 02:50 Magnesium 2.7 mg/dL (1.7-2.3) H 04/03/23 02:50 Total Bilirubin 0.9 mg/dL (0.15-1.2) 03/31/23 17:08 AST 15 U/L (0-40) 03/31/23 17:08 ALT < 5 U/L (0-41) 03/31/23 17:08 Alkaline Phosphatase 107 U/L (40-130) 03/31/23 17:08 Creatine Kinase 283 U/L (39-308) 03/31/23 17:08 Troponin T Baseline 122 ng/L (0-15) H* 03/31/23 17:08 Troponin T 120 Minute 106.7 ng/L (0-15) H 03/31/23 19:13 Delta Troponin T -15.3 ABS# (0-10) L 03/31/23 19:13 Troponin T Hi Sens 6Hr 131.8 ng/L (0-15) H 03/31/23 23:05 Troponin T Hi Sens 6Hr Delta 9.8 ng/L (0-12) 03/31/23 23:05 Total Protein 6.5 g/dL (6.6-8.7) L 03/31/23 17:08 Albumin 4.2 g/dL (3.5-5.2) 03/31/23 17:08 Globulin 2.3 g/dL (1.3-4.6) 03/31/23 17:08 Urine Color Light yellow (Yellow) 03/31/23 17:05 Urine Appearance Clear (CLEAR) 03/31/23 17:05 Urine pH 7 (5-7) 03/31/23 17:05 Ur Specific [place] 1.015 (1.005-1.030) 03/31/23 17:05 Urine Protein 1+ (Negative) H 03/31/23 17:05 Urine Glucose (UA) 4+ (Normal) H 03/31/23 17:05 Urine Ketones Negative (Negative) 03/31/23 17:05 Urine Blood 3+ (Negative) H 03/31/23 17:05 Urine Nitrate Negative (Negative) 03/31/23 17:05 Urine Bilirubin Neg (Negative) 03/31/23 17:05 Urine Urobilinogen Norm mg/dL (Negative) 03/31/23 17:05 Ur Leukocyte Esterase Negative (Negative) 03/31/23 17:05 Urine RBC 40-50 /hpf (0-2) H 03/31/23 17:05 Urine WBC Rare /hpf (0-5) 03/31/23 17:05 Ur Squamous Epith Cells None /hpf (0-5) 03/31/23 17:05 Amorphous Sediment Not Reportable 03/31/23 17:05 Urine Bacteria None /hpf (NONE) 03/31/23 17:05 Urine Mucus None /hpf 03/31/23 17:05 Vancomycin Trough 21.6 ug/mL (10-15) H 04/03/23 02:50 Vitals Last Vital Signs Temp 97.5 F L 04/03/23 12:17 Pulse 61 04/03/23 12:17 Resp 17 04/03/23 12:17 BP 149/98 04/03/23 12:17 Pulse Ox 96 04/03/23 12:17 O2 Del Method Room Air 04/03/23 12:17 Discharge Plan Discharge Patient Disposition: Xfer SNF Condition: Stable Prescriptions: New dexamethasone 2 mg tablet 2 mg PO DAILY Qty: 7 0RF Rx Instructions: Take 2 tab for 2 days, then 1 tab for 2 days, then 1/2 tab for 2 days. nitroglycerin 0.4 mg Tablet, Sublingual 0.4 mg sublingual Q5M PRN (Reason: Chest Pain) Qty: 25 0RF metoprolol tartrate 25 mg Tablet 12.5 mg PO BID@0900,2100 Qty: 90 0RF cefdinir 300 mg capsule 300 mg PO BID 5 Days Qty: 10 0RF linezolid 600 mg tablet 600 mg PO BID Qty: 10 0RF Continued (DME) o[place] afo to right See Rx Instructions .Route .MEDSUPPLY Qty: 1 0RF Rx Instructions: As directed by [employer] (DME) Diabetic Shoes with 3 pairs of inserts See Rx Instructions .ROUTE .MEDSUPPLY Qty: 1 0RF Rx Instructions: As directed by [employer] (DME) Silver Alginate Dressing and 2 Layer Compression System Wraps See Rx Instructions .Route .MEDSUPPLY Qty: 1 0RF Rx Instructions: Dressing supplies needed for 30 days with 3 Refills (DME) 2 Layer Compression Bandage System- Coflex TLC LITE Calamine with Indicators 4 in x6 yard/4 in by 7 yard See Rx Instructions .Route .MEDSUPPLY Qty: 1 0RF Rx Instructions: 32 boxes needed for 3 months Compression 20 to 30 mmHg- Ref. # [id number] tamsulosin 0.4 mg capsule 0.4 mg PO BEDTIME 30 Days Qty: 30 0RF finasteride 5 mg tablet 5 mg PO DAILY 30 Days Qty: 30 0RF Eliquis 5 mg tablet 5 mg PO BID 30 Days Qty: 60 0RF prazosin 1 mg Capsule 1 mg PO BEDTIME thiamine HCl (vitamin B1) 100 mg Tablet 100 mg PO DAILY allopurinol 300 mg Tablet 300 mg PO DAILY polyethylene glycol 3350 [Miralax] 17 gram/dose Powder 17 g PO DAILY lisinopril 40 mg Tablet 40 mg PO DAILY rosuvastatin 10 mg Tablet 10 mg PO QPM duloxetine 30 mg Capsule,Delayed Release(Dr/Ec) 30 mg PO DAILY Jardiance 25 mg Tablet 25 mg PO DAILY magnesium oxide 400 mg magnesium Tablet 400 mg PO DAILY pentoxifylline 400 mg Tablet Extended Release 400 mg PO DAILY pregabalin [Lyrica] 300 mg Capsule 300 mg PO BID potassium chloride 20 mEq Tablet Extended Release 40 meq PO DAILY Qty: 60 0RF insulin aspart U-100 [Novolog FlexPen U-100 Insulin] 100 unit/mL (3 mL) insulin pen See Rx Instructions .ROUTE .COMPLEX Qty: 15 0RF Rx Instructions: Inject 8 units subcutaneously with meals AND per sliding scale: If BS less than 60, call MD. BS 141-180= 0 units, 181-220= 2 units, 221-260= 4 units, 261-3 00= 6 units,301-350= 8 units, 351-400= 10 units, 401-450= 12 units, greater than 450= 14 units, greater than 500, call MD. Banophen 25 mg capsule 25 mg PO Q6H PRN (Reason: Rash) Milk of Magnesia 400 mg/5 mL Suspension See Rx Instructions .ROUTE .COMPLEX PRN (Reason: Constipation) Rx Instructions: Take 30 mL orally every 72 hours as needed if no BM in 3 days. Do not give to renal patients. Go to dulcolax orders. Dulcolax (bisacodyl) 10 mg Suppository 10 mg OR DAILY PRN (Reason: Constipation) Dulcolax (bisacodyl) 5 mg Tablet,Delayed Release (Dr/Ec) See Rx Instructions .ROUTE .COMPLEX PRN (Reason: Constipation) Rx Instructions: Take 10 mg orally as needed if no tesults from Milk of Magnesia. lactulose 10 gram/15 mL (15 mL) Solution 30 ml PO DAILY acetaminophen 325 mg Tablet 650 mg PO QID PRN (Reason: pain or temp) pantoprazole 40 mg tablet,delayed release (DR/EC) 40 mg PO DAILY triamcinolone acetonide 0.1 % Ointment 1 applic TOPICAL TID PRN (Reason: Rash) spironolactone 50 mg tablet 50 mg PO DAILY oxycodone 5 mg tablet 5 mg PO Q4H PRN (Reason: Pain) Ozempic 1 mg/dose (4 mg/3 mL) pen injector 1 mg SUBCUT Q7D Rx Instructions: on Thursday bumetanide 2 mg tablet 2 mg PO BID Changed Lantus U-100 Insulin 100 unit/mL Solution 36 unit SUBCUT BEDTIME Qty: 10 0RF Discharge Orders: Discharge Order (Routine); Ordered 04/03/23 Ordered By: Cali Wills Referrals: CARDIOLOGY [Provider Group] - 2 weeks Jessica Bui MD [Primary Care Provider] - 4-7 days Matthew Wesley DO [Physician] - 7-10 days [facility], [Occupational Therapist] - Discharge Diet: Cardiac and Diabetic Discharge Activity: As per PT/OT instructions Patient Instructions: Heart Failure (GEN), Coronary Artery Disease (GEN), Cellulitis (GEN), Lumbar Spinal Stenosis (GEN), Fall Prevention (GEN), Opioid Safety (GEN) Activity Restrictions/Additional Instructions: Follow-up with your primary provider as well as with orthopedics regarding spinal stenosis. Monitor for any urinary retention due to risk of urinary retention and n eurogenic bladder, severe urinary bladder distention, bladder rupture and other complications. In case of any difficulty urinating seek medical attention right away. In case of urine retention discuss with your primary doctor referral to urology. Complete steroid taper for compression in your back, monitor blood glucose due to likely blood glucose elevation with steroid. Follow-up with your primary provider for reassessment of cellulitis/skin infection of lower legs. Elevate lower legs to help reduce swelling. Follow-up with cardiology for reassessment regarding coronary artery disease and diastolic and suspected right side heart failure, old large size heart attack/scar on stress test. Have your primary provider follow-up and reassess microscopic hematuria to confirm that it resolved. Follow-up with your primary doctor for additional assessment with three-phase CT scan of the left kidney 4.3 cm structure which is not a simple cyst and needs additional assessment. Alternatively consider referral for center where MRI can be performed in the presence of a defibrillator (possibly [place]). Continue to optimize hypertension, diabetes, other risk factors of heart disease. Discharge Attestations Time Spent in Discharge Care*: greater than 30 min Status at Discharge: Cognitive status at discharge: cognitively intact , Behavioral status at discharge: cooperative , Quality Metrics Clinical Quality Measures [ No reported AMI, CVA or VTE this stay] Coding Level of Care Code 35316 Total time (in minutes) for Discharge: 50 Diagnoses Longstanding persistent atrial fibrillation I48.91 Chronic venous insufficiency I87.2 Type 2 diabetes mellitus with diabetic polyneuropathy, with long-term current use of insulin E11.42; Z79.4 Diabetes mellitus complication detail: with polyneuropathy Diabetes mellitus complication status: with neurologic complications Diabetes mellitus exterminator termite insulin use: with longterm use Sacroiliitis M46.1 Acute low back pain M54.50 Spondylolisthesis at L4-L5 level M43.16 Chronic ulcer of left foot limited to breakdown of skin L97.521 Chronic ulcer of right foot limited to breakdown of skin L97.511 Right sided weakness R53.1 Lumbar foraminal stenosis M48.061 Spinal stenosis, lumbar region, with neurogenic claudication M48.062 Diabetic peripheral neuropathy associated with type 2 diabetes mellitus E11.42 Right foot drop M21.371 Difficulty in walking R26.2
[2023-04-03 14:04] LABS: SARS Covid-2 Antigen negative (Negative)
--- NOTE | 2023-04-03 15:17 | PC.NURSE ---
report called to Lee CASTANEDA @ [facility]. patient updated that COVID is negative and transportation should be here at 1530. patients belongings packed up.
--- NOTE | 2023-04-03 20:10 | NMCV_ITS ---
NM steff perf SPECT r/s* [id number] Giles Guillaume Age: 73 Gender: M : 1950 Exam Date: 04/03/2023 20:10 Ordering Phys: Cail Wills MD Technologist: JEB Cooper Exam Location: [facility] Indications: CHEST PAIN STRESS TEST Please see separate stress test report in [facility] for full findings IMAGE PROTOCOL Rest/Stress 1 Lexiscan Day Radiopharmaceutical Dose (mCi) Administration Site Administered by Rest: Tc-99m 10.7 IV JEB Samano Sestamibi Stress:Tc-99m 33.0 IV JEB Samano Sestamibi Rest: 03-Apr-2023 60 Discovery 630 Stress: 03-Apr-2023 30 Discovery 630 0.4mg Lexiscan. Supine position only as patient was unable to lay prone. SPECT RESULTS Technical Quality: Excellent Raw Data Analysis: Normal Image Corrections: No attenuation or motion correction applied Summed Stress Score: 15 Summed Rest Score: 16 Summed Difference Score: 0 PERFUSION FINDINGS There is large sized, fixed perfusion defect noted in inferolateral, anterolateral, inferior fritz. This is consistent with large sized prior infarcts in RCA and left circumflex artery territories without significant reversibility. FUNCTIONAL RESULTS (calculated via Gated SPECT) Stress Image LV EF (%): 54 Stress EDV (mL):147 TID: 0.94 Stress ESV (mL):67 FUNCTIONAL FINDINGS: There is normal left ventricular systolic function. IMPRESSIONS 1. Large sized areas of prior infarcts seen in the RCA and left circumflex artery territories without significant ischemia. 2. LV systolic function is normal Kervin Segundo MD (Electronically Signed) Final Date: 03 April 2023 10:38 S
== END 2023-04-03 16:00 | disposition skilled nursing facility (03) | DRG 291 ==
LOC: ER 20:22 → MEDSURG 20:44
PROVIDERS: Family Medicine; Admitting Provider Internal Medicine; Emergency Provider Emergency Medicine; PCP Family Medicine; Visit Provider Internal Medicine
DX: I13.0 Hypertensive heart and chronic kidney disease with heart failure and stage 1 through stage 4 chronic kidney disease, or unspecified chronic kidney disease (principal); I50.33 Acute on chronic diastolic (congestive) heart failure; Z68.41 Body mass index [BMI] 40.0-44.9, adult; I48.11 Longstanding persistent atrial fibrillation; I69.351 Hemiplegia and hemiparesis following cerebral infarction affecting right dominant side; L03.116 Cellulitis of left lower limb; L03.115 Cellulitis of right lower limb; N18.9 Chronic kidney disease, unspecified; E11.22 Type 2 diabetes mellitus with diabetic chronic kidney disease; Z79.4 Long term (current) use of insulin; I25.10 Atherosclerotic heart disease of native coronary artery without angina pectoris; E66.01 Morbid (severe) obesity due to excess calories; Z79.01 Long term (current) use of anticoagulants; F17.220 Nicotine dependence, chewing tobacco, uncomplicated; F17.290 Nicotine dependence, other tobacco product, uncomplicated; E11.51 Type 2 diabetes mellitus with diabetic peripheral angiopathy without gangrene; E11.42 Type 2 diabetes mellitus with diabetic polyneuropathy; M48.062 Spinal stenosis, lumbar region with neurogenic claudication; M51.36 Other intervertebral disc degeneration, lumbar region; Z95.0 Presence of cardiac pacemaker; N40.0 Benign prostatic hyperplasia without lower urinary tract symptoms; M43.16 Spondylolisthesis, lumbar region; M46.1 Sacroiliitis, not elsewhere classified; M21.371 Foot drop, right foot; E11.621 Type 2 diabetes mellitus with foot ulcer; L97.521 Non-pressure chronic ulcer of other part of left foot limited to breakdown of skin; L97.511 Non-pressure chronic ulcer of other part of right foot limited to breakdown of skin; R31.29 Other microscopic hematuria; R26.2 Difficulty in walking, not elsewhere classified; I87.2 Venous insufficiency (chronic) (peripheral)
CPT/HCPCS: 36415; 36416; 51798; 71045; 74176; 78452; 80048; 80053; 80202; 81001; 82550; 82962; 83735; 84484; 84550; 85025; 87040; 87426; 93005; 93017; 93308; 93970; 96365; 96367; 96372; 96375; 97110; 97161; 97530; 99285; A9500; J0692; J1644; J1815; J2543; J2785; J3372; J3490; J8540

== ENCOUNTER → 2023-04-08 11:26 | Outpatient (BNVA) | payer OTHER, SELFPAY | PROVIDERS: PCP Family Medicine; Visit Provider Internal Medicine Cardiovascular Disease | DX: Z45.010 Encounter for checking and testing of cardiac pacemaker pulse generator [battery] (principal) | CPT/HCPCS: 93296 ==

== ENCOUNTER → 2023-04-15 11:45 | Outpatient (BNVA) | payer OTHER, SELFPAY | PROVIDERS: PCP Family Medicine; Referring Provider Family Medicine; Visit Provider Internal Medicine Cardiovascular Disease | DX: I48.91 Unspecified atrial fibrillation (principal); E78.5 Hyperlipidemia, unspecified; I13.0 Hypertensive heart and chronic kidney disease with heart failure and stage 1 through stage 4 chronic kidney disease, or unspecified chronic kidney disease; E11.22 Type 2 diabetes mellitus with diabetic chronic kidney disease; N18.9 Chronic kidney disease, unspecified; I50.32 Chronic diastolic (congestive) heart failure; I77.9 Disorder of arteries and arterioles, unspecified; I87.2 Venous insufficiency (chronic) (peripheral); E11.42 Type 2 diabetes mellitus with diabetic polyneuropathy; Z79.4 Long term (current) use of insulin; F17.220 Nicotine dependence, chewing tobacco, uncomplicated; F17.290 Nicotine dependence, other tobacco product, uncomplicated; Z79.01 Long term (current) use of anticoagulants | CPT/HCPCS: 99214 ==

== ENCOUNTER → 2023-04-16 10:55 | Outpatient (BNVA) | payer OTHER, SELFPAY | PROVIDERS: PCP Family Medicine; Visit Provider Dermatology | DX: D48.5 Neoplasm of uncertain behavior of skin (principal); L57.0 Actinic keratosis; L82.1 Other seborrheic keratosis; L57.8 Other skin changes due to chronic exposure to nonionizing radiation; D22.39 Melanocytic nevi of other parts of face; Z85.828 Personal history of other malignant neoplasm of skin; L85.3 Xerosis cutis; L89.152 Pressure ulcer of sacral region, stage 2 | CPT/HCPCS: 11102; 17000; 99214 ==

== ENCOUNTER 2023-04-19 09:21 | Observation (INO) | payer OTHER, SELFPAY ==
[2023-04-19] VITALS (14 sets, daily range): BP systolic 128–155; BP diastolic 65–86; PULSE 72–87; RESP 16–18; TEMP 36.5–36.7; O2SAT 92–99; BMI 40.2
--- NOTE | 2023-04-19 09:22 | CTR_ITS ---
PROCEDURE INFORMATION: Exam: CT Head Without Contrast Exam date and time: 04/19/2023 9:40 AM Age: 73 years old Clinical indication: Numbness / parasthesia; Left; Additional info: L hand numbness TECHNIQUE: Imaging protocol: Computed tomography of the head without contrast. Radiation optimization: All CT scans at this facility use at least one of these dose optimization techniques: automated exposure control; mA and/or kV adjustment per patient size (includes targeted exams where dose is matched to clinical indication); or iterative reconstruction. COMPARISON: CT head thrombolytic [id number] 09/09/2022 2:30 PM RADIATION DOSE METRICS: Total DLP (mGy-cm): 1163.58 FINDINGS: Brain: There is no evidence of acute parenchymal hemorrhage, extra-axial collection, or acute infarction. There is no mass effect, midline shift, or downward herniation. Cerebral ventricles: No ventriculomegaly. Paranasal sinuses: Visualized sinuses are unremarkable. No fluid levels. Mastoid air cells: Visualized mastoid air cells are well aerated. Bones/joints: Unremarkable. No acute fracture. Soft tissues: Unremarkable. CT/CT head wo con* [id number] IMPRESSION: No acute intracranial abnormality.
--- NOTE | 2023-04-19 09:31 | PC.NURSE ---
[facility]S did bring patient personal rolling walker
[2023-04-19 09:39] LABS: Glucose Point of Care 242 mg/dL (70-110)
--- NOTE | 2023-04-19 09:49 | ED_ITS ---
HPI - Neck Pain/Injury 2 General: Chief Complaint: Neck Pain/Injury Stated Complaint: WEAKNESS; LEFT HAND NUMBNESS Time Seen by Provider: 04/19/23 09:22 Source: patient Mode of arrival: ambulatory History of Present Illness: 73-year-old male presents emergency room with complaints of right arm weakness. He has discomfort rating from his neck down to his arm he notices in particular numbness and discomfort at the tips of his fingers second and third fingers on the right hand. No other difficulty no new acute difficulty with speech swallowing or vision. He has full strength and range of motion in his upper and lower extremities sparing the above-described discomfort into the right arm. No difficulty with swallowing no facial asymmetry. MD complaint: neck pain Review of Systems 2 Const: Denies: fever(s) or chills Card: Denies: chest pain Resp: Denies: dyspnea GI: Denies: abdominal pain : Denies: dysuria, urinary frequency or urinary urgency Musc: Denies: neck pain or back pain Skin/Breast: Denies: rash PFSH ED 2 PFSH: Medical History Hypertension Constipation Gout attack Acute on chronic diastolic (congestive) heart failure Hypokalemia CHF exacerbation Swelling of right upper extremity Atrial fibrillation Peripheral arterial disease CKD (chronic kidney disease) Ischemic toe ulcer Physical deconditioning Bilateral lower leg cellulitis Temporary transvenous cardiac pacemaker present BMI 40.0-44.9, adult Hyperkalemia Squamous cell carcinoma in situ Abnormal nuclear stress test Accelerated hypertension Chronic diastolic heart failure Atrial fibrillation Acute kidney injury Rhabdomyolysis Coronary artery disease Evaluated in [place], patient reports 55% narrowing unknown vessel no stent or angioplasty done PAD (peripheral artery disease) Calculus of proximal ureter Diabetic neuropathy associated with type 2 diabetes mellitus Lumbar foraminal stenosis Bradycardia Nicotine dependence, chewing tobacco, with other nicotine-induced disorders Diabetes mellitus, type II Chronic anticoagulation eliquis Osteoarthritis Obesity BMI-42 kg/m2 Chronic kidney disease Hyperlipidemia Obstructive sleep apnea not on treatment by choice Atrial fibrillation Chronic, history of bradycardia with beta blockers, on eliquis CVA (cerebral vascular accident) residual right weakness Congestive heart failure BPH NOS w/o ur obs/LUTS PVD (peripheral vascular disease) Pes planus of both feet Renal calculus, right Surgical History Hx of colonoscopy with polypectomy Status post cardiac pacemaker procedure No pertinent past surgical history Family History Mother , 87 Diabetes CAD (coronary artery disease) Hypertension Father , 60 No problems noted. Social History Smoking and tobacco/nicotine status: current every day tobacco/nicotine user (chew tobacco) pipe Pipes smoked per week: 1 Years smoked pipe: 54 and smokeless tobacco Smokeless tobacco user: chewing tobacco Alcohol intake: former Year of sobriety/quit date alcohol: 26 y Former alcohol use details: heavy use, 5 DWI's Substance/Drug Use: former Household members: none Housing: House Marital status: service: Yes Current occupational status: retired Physical Exam 2 Const: COMMON NORMALS: no acute distress GENERAL APPEARANCE: cooperative and comfortable ORIENTATION/CONSCIOUSNESS: Yes awake, Yes oriented to person, Yes oriented to place and Yes oriented to time HENMT: COMMON NORMALS: normocephalic, atraumatic and hearing grossly normal bilaterally HEAD & SCALP: normocephalic and atraumatic Resp: COMMON NORMALS: normal respiratory effort, No retractions, No use of accessory muscles and clear to auscultation bilaterally AUSCULTATION: clear to auscultation bilaterally Cardio: COMMON NORMALS: regular rate, regular rhythm and No murmurs present (Cardio) RATE: regular rate RHYTHM: regular rhythm GI: COMMON NORMALS: Soft to palpation and No hepatosplenomegaly present A USCULTATION: Yes normoactive bowel sounds PALPATION: Yes Soft to palpation, No Tenderness to palpation present (GI), No Guarding due to palpation present (GI) and Yes No hepatosplenomegaly present Extremity: COMMON NORMALS: normal to inspection, capillary refill normal, no clubbing, cyanosis or edema, no calf tenderness and no pedal edema Neuro: SENSORIUM/ORIENTATION: Yes oriented to person, Yes oriented to place and Yes oriented to time Skin: COMMON NORMALS: no rashes or lesions noted GENERAL SKIN EXAM: no rashes or lesions noted Course 2 Vital Signs: Vital signs: Vital Signs Temperature 97.9 F 04/20/23 04:00 Pulse Rate 79 04/20/23 04:00 Respiratory Rate 16 04/20/23 04:00 Blood Pressure 137/78 04/20/23 04:00 Pulse Oximetry 96 04/20/23 04:00 Oxygen Delivery Me thod Room Air 04/20/23 04:00 MDM - Neck Pain/Injury Medical Decision Making No focal neurologic deficits at this time I think he is right arm discomfort which is limited to the tips of his second and third fingers on the right hand is more from cervical radiculopathy. He does have an acute kidney injury he has multiple medications that are likely to play a role in this additionally he is already mildly hyperkalemic. Will place on observation for IV fluids adjustment of medications control blood pressure. Discussed with hospitalist orders written Differential Diagnosis Likely disc disorder of cervical region, cervical radiculopathy and strain of neck muscle Medical Records I reviewed the patient's medical records. Lab Data I reviewed the patient's lab results. 04/19/23 09:56 04/19/23 09:[address] 04/19/23 09:22 IMPRESSION: No acute intracranial abnormality. Laboratory Results WBC 12.57 10^3/uL (3.29-11.43) H 04/19/23 09:56 RBC 4.54 10^6/uL (3.85-5.65) 04/19/23 09:56 Hgb 12.40 g/dL (11.27-16.99) 04/19/23 09:56 Hct 39.1 % (37-53) 04/19/23 09:56 MCV 86.1 fl (82-101) 04/19/23 09:56 MCH 27.3 pg (27-33) 04/19/23 09:56 MCHC 31.7 g/dL (30-55) 04/19/23 09:56 RDW 15.5 % (12.1-15.1) H 04/19/23 09:56 Plt Count 134 10^3/cmm (157-399) L 04/19/23 09:56 MPV 10.7 fL (7.4-10.4) H 04/19/23 09:56 Neut % (Auto) 82.5 % 04/19/23 09:56 Lymph % (Auto) 9.6 % 04/19/23 09:56 [place] % (Auto) 5.6 % 04/19/23 09:56 Eos % (Auto) 1.4 % 04/19/23 09:56 Baso % (Auto) 0.2 % 04/19/23 09:56 Neut # (Auto) 10.36 10^3/uL (1.8-7.7) H 04/19/23 09:56 Lymph # (Auto) 1.2 10^3/uL (0.8-4.8) 04/19/23 09:56 [place] # (Auto) 0.7 10^3/uL (0.2-0.9) 04/19/23 09:56 Eos # (Auto) 0.2 10^3/uL (0.0-0.8) 04/19/23 09:56 Baso # (Auto) 0.0 10^3/uL (0.0-0.1) 04/19/23 09:56 Nucleated RBC % (auto) 0 % 04/19/23 09:56 Nucleated RBCs # 0.0 /100WBC 04/19/23 09:56 Sodium 134 mmol/L (136-145) L 04/19/23 09:56 Potassium 5.3 mmol/L (3.5-5.1) H 04/19/23 09:56 Chloride 95 mmol/L (98-107) L 04/19/23 09:56 Carbon Dioxide 28 mmol/L (22-29) 04/19/23 09:56 Anion Gap 16.3 (5-19) 04/19/23 09:56 BUN 92 mg/dL (8-23) H* 04/19/23 09:56 Creatinine 3.3 mg/dL (0.7-1.2) H 04/19/23 09:56 GFR Calculation Not Reportable 04/19/23 09:56 Glucose 229 mg/dL (65-115) H 04/19/23 09:56 POC Glucose 242 mg/dL (70-110) H 04/19/23 09:35 Estimat Average Glucose 180 04/19/23 09:56 Hemoglobin A1c 7.9 % (4.0-6.0) H 04/19/23 09:56 Calculated Osmolality 314 mOsm/kg (285-295) H 04/19/23 09:56 Calcium 9.1 mg/dL (8.5-10.5) 04/19/23 09:56 Total Bilirubin 0.5 mg/dL (0.15-1.2) 04/19/23 09:56 AST 13 U/L (0-40) 04/19/23 09:56 ALT 13 U/L (0-41) 04/19/23 09:56 Alkaline Phosphatase 164 U/L (40-130) H 04/19/23 09:56 Total Protein 6.2 g/dL (6.6-8.7) L 04/19/23 09:56 Albumin 3.5 g/dL (3.5-5.2) 04/19/23 09:56 Globulin 2.7 g/dL (1.3-4.6) 04/19/23 09:56 Vitamin B12 313 pg/mL (232-1245) 04/19/23 09:56 All radiology interpretation(s) finalized by discharge Discharge Plan Discharge Patient Disposition: Admitted As Inpatient Admit Provider: Nik Douglas Clinical Impression: Acute kidney injury, Hyperkalemia, Cervical radiculopathy Condition: Stable Coding Level of Care Code ED Supervisor [employer] for Yris Tee
[2023-04-19 10:03] LABS: Basophils % 0.2 %; Eosinophils # 0.2 10^3/uL (0.0-0.8); Eosinophils % 1.4 %; Hematocrit 39.1 % (37-53); Lymphocytes # 1.2 10^3/uL (0.8-4.8); Lymphocytes % 9.6 %; Mean Corpuscular HGB Conc 31.7 g/dL (30-55); Mean Corpuscular Hemoglobin 27.3 pg (27-33); Mean Corpuscular Volume 86.1 fl (82-101); Mean Platelet Volume 10.7 fL (7.4-10.4); Monocytes # 0.7 10^3/uL (0.2-0.9); Monocytes % 5.6 %; Neutrophils # 10.36 10^3/uL (1.8-7.7); Neutrophils % 82.5 %; Nucleated Red Blood Cells % 0 %; Platelet Count 134 10^3/cmm (157-399); Red Blood Count 4.54 10^6/uL (3.85-5.65); Red Cell Distribution Width 15.5 % (12.1-15.1); White Blood Count 12.57 10^3/uL (3.29-11.43)
[2023-04-19] MEDS: lisinopril 20 mg Tablet 40 MG PO (10:03)
[2023-04-19] MEDS: metoprolol tartrate 25 mg Tablet 12.5 MG PO ×2 (10:03→21:46)
[2023-04-19 10:27] LABS: Alanine Aminotransferase 13 U/L (0-41); Albumin Level 3.5 g/dL (3.5-5.2); Alkaline Phosphatase 164 U/L (40-130); Anion Gap 16.3 (5-19); Aspartate Amino Transferase 13 U/L (0-40); Calcium 9.1 mg/dL (8.5-10.5); Carbon Dioxide 28 mmol/L (22-29); Chloride 95 mmol/L (98-107); Globulin 2.7 g/dL (1.3-4.6); Glucose 229 mg/dL (65-115); Osmolality Calculated 314 mOsm/kg (285-295); Potassium 5.3 mmol/L (3.5-5.1); Sodium 134 mmol/L (136-145); Total Bilirubin 0.5 mg/dL (0.15-1.2); Total Protein 6.2 g/dL (6.6-8.7)
[2023-04-19 10:28] LABS: Blood Urea Nitrogen 92 mg/dL (8-23)
[2023-04-19] MEDS: sodium chloride 0.9% 1,000 ML 999 ML IV (11:45)
--- NOTE | 2023-04-19 12:39 | PM.HP ---
Providers/Chief Complaint Primary Care Provider: Jessica Bui MD Chief Complaint: WEAKNESS; LEFT HAND NUMBNESS History of Present Illness Giles Guillaume is a 73 year old male history of diastolic CHF, chronic kidney disease, presented today with numbness of arms, in the ER his workup was consistent with cervical radiculopathy, he has been taking nephrotoxic agents, hospitalist was requested to admit the patient for acute on chronic kidney disease. Patient is stating that he came from [facility] for concern related orthopnea PND and shortness of breath, he has been compliant with his medications he has not missed any of the dosages. He takes Eliquis as well. In the ER he was diagnosed with volume overload he is not requiring oxygen however he was suffering from DANITZA with hyperkalemia. Review of Systems Const: Denies: fever(s) Eyes: Denies: change in vision ENMT: Denies: throat pain Card: Denies: chest pain Resp: Reports: dyspnea GI: Denies: abdominal pain : Denies: flank pain Musc: Reports: back pain; Denies: neck pain Medications/Allergies Home Medications Medication Instructions Recorded Confirmed Last Taken Type [place] afo to right #1 ea 08/05/21 04/19/23 Unknown Rx Diabetic Shoes with 3 pairs of #1 ea 06/18/22 04/19/23 Unknown Rx inserts Silver Alginate Dressing and 2 #1 ea 08/06/22 04/19/23 Unknown Rx Layer Compression System Wraps pentoxifylline 400 mg 400 mg PO DAILY@08/14/22 04/19/23 04/18/23 History tablet,extended release pregabalin 300 mg capsule (Lyrica) 300 mg PO BID@08/14/22 04/19/23 04/18/23 History allopurinol 300 mg tablet 300 mg PO DAILY@12/19/22 04/19/23 04/18/23 History duloxetine 30 mg capsule,delayed 30 mg PO DAILY@12/19/22 04/19/23 04/18/23 History release empagliflozin 25 mg tablet 25 mg PO DAILY@12/19/22 04/19/23 04/18/23 History (Jardiance) lisinopril 40 mg tablet 40 mg PO DAILY@12/19/22 04/19/23 04/18/23 History magnesium oxide 400 mg PO DAILY@12/19/22 04/19/23 04/18/23 History polyethylene glycol 3350 17 17 g PO DAILY@12/19/22 04/19/23 04/18/23 History gram/dose oral powder (Miralax) prazosin 1 mg capsule 1 mg PO BEDTIME@12/19/22 04/19/23 04/18/23 History rosuvastatin 10 mg tablet 10 mg PO BEDTIME@12/19/22 04/19/23 04/18/23 History thiamine HCl (vitamin B1) 100 mg 100 mg PO DAILY@12/19/22 04/19/23 04/18/23 History tablet 2 Layer Compression Bandage #1 ea 01/22/23 04/19/23 Unknown Rx System- Coflex TLC LITE Calamine with Indicators 4 in x6 yard/4 in by 7 yard acetaminophen 325 mg tablet 650 mg PO QID PRN pain or temp 04/01/23 04/19/23 Unknown History bisacodyl 10 mg rectal suppository 10 mg MA DAILY PRN Constipation 04/01/23 04/19/23 Unknown History (Dulcolax (bisacodyl)) bisacodyl 5 mg tablet,delayed See Rx Instructions .Route 04/01/23 04/19/23 Unknown History release (Dulcolax (bisacodyl)) .COMPLEX PRN Constipation bumetanide 2 mg tablet 2 mg PO BID@08,14 04/01/23 04/19/23 03/31/23 History diphenhydramine HCl 25 mg capsule 25 mg PO Q6H PRN Rash 04/01/23 04/19/23 Unknown History (Banophen) lactulose 10 gram/15 mL (15 mL) 30 ml PO DAILY 04/01/23 04/19/23 04/18/23 History oral solution magnesium hydroxide 400 mg/5 mL See Rx Instructions .Route 04/01/23 04/19/23 Unknown History oral suspension (Milk of Magnesia) .COMPLEX PRN Constipation oxycodone 5 mg tablet 5 mg PO Q4H PRN Pain 04/01/23 04/19/23 03/30/23 History pantoprazole 40 mg tablet,delayed 40 mg PO DAILY@04/01/23 04/19/23 03/31/23 History release semaglutide 1 mg/dose (4 mg/3 mL) 1 mg SUBCUT Q7D 04/01/23 04/19/23 03/27/23 History subcutaneous pen injector (Ozempic) spironolactone 50 mg tablet 50 mg PO DAILY@04/01/23 04/19/23 04/18/23 History triamcinolone acetonide 0.1 % 1 applic topical TID PRN Rash 04/01/23 04/19/23 03/20/23 History topical ointment metoprolol tartrate 25 mg tablet 12.5 mg (1/2 x 25 mg) PO 04/03/23 04/19/23 04/18/23 Rx BID@0900,2100 #90 tabs apixaban 5 mg tablet (Eliquis) 5 mg PO BID@04/19/23 04/19/23 04/18/23 History finasteride 5 mg tablet 5 mg PO DAILY@04/19/23 04/19/23 04/18/23 History insulin aspart U-100 100 unit/mL 15 unit SUBCUT .WITH MEALS 04/19/23 04/19/23 Unknown History subcutaneous solution (Novolog U-100 Insulin aspart) insulin aspart U-100 100 unit/mL See Rx Instructions .Route .COMPLEX 04/19/23 04/19/23 Unknown History subcutaneous solution (Novolog U-100 Insulin aspart) insulin glargine 100 unit/mL 45 unit SUBCUT BEDTIME 04/19/23 04/19/23 04/18/23 History subcutaneous solution (Lantus U-100 Insulin) nitroglycerin 0.4 mg sublingual 0.4 mg sublingual Q5M PRN Chest 04/19/23 04/19/23 Unknown History tablet (Nitrostat) Pain potassium chloride 20 mEq 40 meq PO DAILY@04/19/23 04/19/23 04/18/23 History tablet,extended release tamsulosin 0.4 mg capsule 0.4 mg PO BEDTIME@04/19/23 04/19/23 04/18/23 History white petrolatum See Rx Instructions .Route .COMPLEX 04/19/23 04/19/23 Unknown History Allergies Allergy/AdvReac Type Severity Reaction Status Date / Time aspirin Allergy ALGY-Anaphy Verified 01/21/24 11:33 laxis carvedilol AdvReac diarrhea Verified 04/19/23 11:33 hydralazine AdvReac vomiting Verified 04/19/23 11:33 PFSH Acute PFSH: Medical History Hypertension Constipation Gout attack Acute on chronic diastolic (congestive) heart failure Hypokalemia CHF exacerbation Swelling of right upper extremity Atrial fibrillation Peripheral arterial disease CKD (chronic kidney disease) Ischemic toe ulcer Physical deconditioning Bilateral lower leg cellulitis Temporary transvenous cardiac pacemaker present BMI 40.0-44.9, adult Hyperkalemia Squamous cell carcinoma in situ Abnormal nuclear stress test Accelerated hypertension Chronic diastolic heart failure Atrial fibrillation Acute kidney injury Rhabdomyolysis Coronary artery disease Evaluated in [place], patient reports 55% narrowing unknown vessel no stent or angioplasty done PAD (peripheral artery disease) Calculus of proximal ureter Diabetic neuropathy associated with type 2 diabetes mellitus Lumbar foraminal stenosis Bradycardia Nicotine dependence, chewing tobacco, with other nicotine-induced disorders Diabetes mellitus, type II Chronic anticoagulation eliquis Osteoarthritis Obesity BMI-42 kg/m2 Chronic kidney disease Hyperlipidemia Obstructive sleep apnea not on treatment by choice Atrial fibrillation Chronic, history of bradycardia with beta blockers, on eliquis CVA (cerebral vascular accident) residual right weakness Congestive heart failure BPH NOS w/o ur obs/LUTS PVD (peripheral vascular disease) Pes planus of both feet Renal calculus, right Surgical History Hx of colonoscopy with polypectomy Status post cardiac pacemaker procedure No pertinent past surgical history Family History Mother , 87 Diabetes CAD (coronary artery disease) Hypertension Father , 60 No problems noted. Social History Smoking and tobacco/nicotine status: current every day tobacco/nicotine user (chew tobacco) pipe Pipes smoked per week: 1 Years smoked pipe: 54 and smokeless tobacco Smokeless tobacco user: chewing tobacco Alcohol intake: former Year of sobriety/quit date alcohol: 25 y Former alcohol use details: heavy use, 5 DWI's Substance/Drug Use: former Household members: none Housing: House Marital status: service: Yes Current occupational status: retired [employer] Last Vital Signs Temp 97.7 F 04/19/23 09:22 Pulse 83 04/19/23 10:01 Resp 18 04/19/23 09:22 BP 148/86 04/19/23 09:31 Pulse Ox 93 04/19/23 10:01 O2 Del Method Room Air 04/19/23 10:01 Weight last 48 hrs Weight 138.346 kg Physical Exam Narrative: Signs of fluid overload GCS 15 Pleasant cooperative Currently on room air Hemodynamically stable Stage II ulcer of back present on admission GCS 15 nonfocal neuroexam No signs of uremia S1, S2 variable Data 04/20/23 05:03 04/20/23 05:03 A&P Assessment and plan (1) Benign essential hypertension with target blood pressure below 140/90: (2) Chronic diastolic heart failure: (3) Status post cardiac pacemaker procedure: (4) Atrial fibrillation: (5) PVD (peripheral vascular disease): (6) Chronic venous insufficiency: (7) Diabetes mellitus, type II: Qualifiers: Diabetes mellitus intermission coordinator insulin use: with intermission coordinator use Diabetes mellitus complication status: with neurologic complications Diabetes mellitus complication detail: with polyneuropathy Qualified Code(s): E11.42 - Type 2 diabetes mellitus with diabetic polyneuropathy; Z79.4 - skilled nursing (current) use of insulin (8) Acute kidney injury: (9) Sacroiliitis: (10) Cervical radiculopathy: (11) Weakness: (12) Hyperkalemia: Plan Hyperkalemia and acute on chronic kidney disease related to polypharmacy Patient was given diuretics in the ER Not requiring oxygen Signs of fluid load present Avoid nephrotoxic agents Admit to MedSurg Continue diuresis Patient does not want [place] catheter Stage II sacral ulcer would do Optifoam offloading dressing History of sacroiliitis complaining of back pain No sign of cauda equina No signs of metabolic acidosis Diastolic CHF history continue diuresis Consistent carb diet with sliding scale Attestations Medical Necessity Statement*: Considering hyperkalemia and acute on chronic kidney disease anticipating patient will will be discharged within 48 hours Diagnoses Benign essential hypertension with target blood pressure below 140/90 I10 Chronic diastolic heart failure I50.32 Status post cardiac pacemaker procedure Z95.0 Longstanding persistent atrial fibrillation I48.91 PVD (peripheral vascular disease) I73.9 Chronic venous insufficiency I87.2 Type 2 diabetes mellitus with diabetic polyneuropathy, with long-term current use of insulin E11.42; Z79.4 Diabetes mellitus long-term insulin use: with long-term use Diabetes mellitus complication status: with neurologic complications Diabetes mellitus complication detail: with polyneuropathy Acute kidney injury N17.9 Sacroiliitis M46.1 Cervical radiculopathy M54.12 Weakness R53.1 Hyperkalemia E87.5
[2023-04-19 15:29] LABS: Estmated Average Glucose 180; Hemoglobin A1C 7.9 % (4.0-6.0)
[2023-04-19] MEDS: FUROsemide 10 mg/mL SDV 10mL 60 MG IVP (15:30)
[2023-04-19 16:04] LABS: Vitamin B12 313 pg/mL (232-1245)
[2023-04-19] MEDS: hyDRALAzine 25 mg Tablet PO (17:24)
[2023-04-19] MEDS: insulin lispro 100 unit/1 mL SUBCUT (17:25)
[2023-04-19] MEDS: apixaban 5 mg Tablet 2.5 MG PO (21:46)
[2023-04-19] MEDS: tamsulosin 0.4 mg Capsule PO (21:46)
[2023-04-19] MEDS: insulin glargine 100 units/1 mL 45 UNIT SUBCUT (21:46)
[2023-04-20] VITALS (7 sets, daily range): BP systolic 96–137; BP diastolic 54–78; PULSE 71–79; RESP 16–20; TEMP 36.4–37; O2SAT 94–96
[2023-04-20 05:47] LABS: Basophils % 0.4 %; Eosinophils # 0.2 10^3/uL (0.0-0.8); Eosinophils % 1.6 %; Hematocrit 39.3 % (37-53); Lymphocytes # 1.6 10^3/uL (0.8-4.8); Lymphocytes % 14.5 %; Mean Corpuscular HGB Conc 32.1 g/dL (30-55); Mean Corpuscular Hemoglobin 27.2 pg (27-33); Mean Corpuscular Volume 84.7 fl (82-101); Mean Platelet Volume 11.9 fL (7.4-10.4); Monocytes # 0.8 10^3/uL (0.2-0.9); Monocytes % 7.5 %; Neutrophils % 75.5 %; Nucleated Red Blood Cells % 0 %; Platelet Count 152 10^3/cmm (157-399); Red Blood Count 4.64 10^6/uL (3.85-5.65); Red Cell Distribution Width 15.7 % (12.1-15.1); White Blood Count 10.99 10^3/uL (3.29-11.43)
[2023-04-20 06:01] LABS: Anion Gap 15.7 (5-19); Blood Urea Nitrogen 79 mg/dL (8-23); Calcium 9.3 mg/dL (8.5-10.5); Carbon Dioxide 29 mmol/L (22-29); Chloride 97 mmol/L (98-107); Glucose 141 mg/dL (65-115); Magnesium 2.7 mg/dL (1.7-2.3); Osmolality Calculated 310 mOsm/kg (285-295); Potassium 4.7 mmol/L (3.5-5.1); Sodium 137 mmol/L (136-145)
--- NOTE | 2023-04-20 06:46 | PC.NURSE ---
Blood glucose reading 156 on patient's dexcom
[2023-04-20 08:55] LABS: Glucose Point of Care 141 mg/dL (70-110)
[2023-04-20] MEDS: apixaban 5 mg Tablet 2.5 MG PO ×2 (09:12→20:13)
[2023-04-20] MEDS: sennosides-docusate Tablet 1 TAB PO (09:12)
[2023-04-20] MEDS: insulin lispro 100 unit/1 mL SUBCUT ×2 (09:12→12:51)
[2023-04-20] MEDS: metoprolol tartrate 25 mg Tablet 12.5 MG PO ×2 (09:13→20:12)
--- NOTE | 2023-04-20 11:27 | PC.NURSE ---
bsg 228 per dexcom
--- NOTE | 2023-04-20 13:30 | P.PN_ITS ---
Subjective 2 Subjective: Creatinine and potassium improved Adequate urine output No active complaints other than back pain Vitals/I&O/Wt Last Vital Signs Temp 97.8 F 04/20/23 08:00 Pulse 71 04/20/23 08:00 Resp 20 H 04/20/23 08:00 BP 96/54 04/20/23 08:00 Pulse Ox 96 04/20/23 09:25 O2 Del Method Room Air 04/20/23 09:25 04/19/23 04/20/23 04/20/23 22:59 06:59 14:59 Intake Total 480 / 1480 200 / 1680 600 / 600 Balance 480 / 1480 200 / 1680 600 / 600 Weight last 48 hrs Weight 137.92 kg Weight 138.346 kg Physical Exam 2 Narrative: Signs of fluid load improving patient is able to lay flat no orthopnea PND Currently on room air Pleasant cough Stage II ulcer of lower back GCS 15 Pleasant cooperative S1, S2 Data 04/20/23 05:03 04/20/23 05:03 A&P Assessment and plan (1) Benign essential hypertension with target blood pressure below 140/90: (2) Chronic diastolic heart failure: (3) Status post cardiac pacemaker procedure: (4) PVD (peripheral vascular disease): (5) Acute kidney injury: (6) Sacroiliitis: (7) Hyperkalemia: Plan Potassium and creatinine improving Change IV Lasix to p.o. regimen Plan to discharge by tomorrow Continue consistent carb diet Check BMP tomorrow Applied OPTi foam on sacral area Full code Cardiac consistent carb diet PT evaluation today Attestations 2 Medical Necessity Statement*: Discharge tomorrow Diagnoses Benign essential hypertension with target blood pressure below 140/90 I10 Chronic diastolic heart failure I50.32 Status post cardiac pacemaker procedure Z95.0 PVD (peripheral vascular disease) I73.9 Acute kidney injury N17.9 Sacroiliitis M46.1 Hyperkalemia E87.5
--- NOTE | 2023-04-20 17:07 | PC.NURSE ---
Per dexcom, BS was 135. No insulin given per sliding scale.
[2023-04-20] MEDS: tamsulosin 0.4 mg Capsule PO (20:11)
[2023-04-20] MEDS: insulin glargine 100 units/1 mL 45 UNIT SUBCUT (20:13)
[2023-04-21] VITALS: BP 107/54; PULSE 82; RESP 18; TEMP 36.4; O2SAT 96
[2023-04-21 04:00] VITALS: BP 145/83; PULSE 81; RESP 19; TEMP 36.3; O2SAT 95
[2023-04-21 05:14] LABS: Anion Gap 14.5 (5-19); Blood Urea Nitrogen 77 mg/dL (8-23); Calcium 9.4 mg/dL (8.5-10.5); Carbon Dioxide 29 mmol/L (22-29); Chloride 101 mmol/L (98-107); Glucose 109 mg/dL (65-115); Osmolality Calculated 314 mOsm/kg (285-295); Potassium 4.5 mmol/L (3.5-5.1); Sodium 140 mmol/L (136-145)
--- NOTE | 2023-04-21 06:40 | PC.NURSE ---
blood sugar is 123 this am according to patients home meter
[2023-04-21 07:21] VITALS: PULSE 81; RESP 18; O2SAT 95
[2023-04-21 07:53] VITALS: BP 137/68; PULSE 81; RESP 18; O2SAT 95
[2023-04-21] MEDS: metoprolol tartrate 25 mg Tablet 12.5 MG PO (08:47)
[2023-04-21] MEDS: FUROsemide 40 mg Tablet PO (08:48)
[2023-04-21] MEDS: sennosides-docusate Tablet 1 TAB PO (08:48)
[2023-04-21] MEDS: apixaban 5 mg Tablet 2.5 MG PO (08:48)
[2023-04-21] MEDS: hyDRALAzine 25 mg Tablet PO (08:48)
--- NOTE | 2023-04-21 08:53 | P.DS_ITS ---
Discharge Providers Date of Admission: 04/19/23 12:23 Date of Discharge: April 21, 2023 Attending Provider at Admission: Nik Douglas MD Attending Provider at Discharge: Nik Douglas MD Primary Care Provider: Jessica Bui MD Diagnoses at Discharge Discharge Diagnosis (1) Benign essential hypertension with target blood pressure below 140/90: Status: Acute (2) Chronic diastolic heart failure: Status: Acute (3) Status post cardiac pacemaker procedure: Status: Acute (4) PVD (peripheral vascular disease): Status: Acute (5) Acute kidney injury: Status: Acute (6) Sacroiliitis: Status: Acute (7) Hyperkalemia: Status: Acute Reason for Visit Reason for Visit: WEAKNESS; LEFT HAND NUMBNESS Hospital Course Hospital Course 73-year male who has history of diastolic CHF, chronic kidney disease, hypertension, uses roller aid, came from [facility] for generalized weakness and fatigue and shortness of breath, he was diagnosed with CHF exacerbation, hyperkalemia and acute on chronic kidney disease, his acute on chronic kidney disease 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 Patient takes Bumex 2 mg twice daily, I will change it to 2 mg daily with potassium supplementation I would avoid lisinopril recent stress test unremarkable, no sign of DVT, Physical Exam Narrative: Euvolemic GCS 15 pleasant cooperative Currently on room air Nonfocal neuroexam S1, S2 Radial Currently on room air doing well Discharge Data Studies Completed and Pending Completed Studies During Hospitalization Category Date Time Status CT head wo con* [id number] Stat Cat Scan 04/19/23 09:22 Completed Radiology Impressions Head CT 04/19/23 09:22 IMPRESSION: No acute intracranial abnormality. Laboratory Results WBC 10.99 10^3/uL (3.29-11.43) 04/20/23 05:03 RBC 4.64 10^6/uL (3.85-5.65) 04/20/23 05:03 Hgb 12.60 g/dL (11.27-16.99) 04/20/23 05:03 Hct 39.3 % (37-53) 04/20/23 05:03 MCV 84.7 fl (82-101) 04/20/23 05:03 MCH 27.2 pg (27-33) 04/20/23 05:03 MCHC 32.1 g/dL (30-55) 04/20/23 05:03 RDW 15.7 % (12.1-15.1) H 04/20/23 05:03 Plt Count 152 10^3/cmm (157-399) L 04/20/23 05:03 MPV 11.9 fL (7.4-10.4) H 04/20/23 05:03 Neut % (Auto) 75.5 % 04/20/23 05:03 Lymph % (Auto) 14.5 % 04/20/23 05:03 [place] % (Auto) 7.5 % 04/20/23 05:03 Eos % (Auto) 1.6 % 04/20/23 05:03 Baso % (Auto) 0.4 % 04/20/23 05:03 Neut # (Auto) 8.30 10^3/uL (1.8-7.7) H 04/20/23 05:03 Lymph # (Auto) 1.6 10^3/uL (0.8-4.8) 04/20/23 05:03 [place] # (Auto) 0.8 10^3/uL (0.2-0.9) 04/20/23 05:03 Eos # (Auto) 0.2 10^3/uL (0.0-0.8) 04/20/23 05:03 Baso # (Auto) 0.0 10^3/uL (0.0-0.1) 04/20/23 05:03 Nucleated RBC % (auto) 0 % 04/20/23 05:03 Nucleated RBCs # 0.0 /100WBC 04/20/23 05:03 Sodium 140 mmol/L (136-145) 04/21/23 03:53 Potassium 4.5 mmol/L (3.5-5.1) 04/21/23 03:53 Chloride 101 mmol/L (98-107) 04/21/23 03:53 Carbon Dioxide 29 mmol/L (22-29) 04/21/23 03:53 Anion Gap 14.5 (5-19) 04/21/23 03:53 BUN 77 mg/dL (8-23) H 04/21/23 03:53 Creatinine 2.1 mg/dL (0.7-1.2) H 04/21/23 03:53 GFR Calculation Not Reportable 04/21/23 03:53 Glucose 109 mg/dL (65-115) 04/21/23 03:53 POC Glucose 141 mg/dL (70-110) H 04/20/23 08:46 Estimat Average Glucose 180 04/19/23 09:56 Hemoglobin A1c 7.9 % (4.0-6.0) H 04/19/23 09:56 Calculated Osmolality 314 mOsm/kg (285-295) H 04/21/23 03:53 Calcium 9.4 mg/dL (8.5-10.5) 04/21/23 03:53 Magnesium 2.7 mg/dL (1.7-2.3) H 04/20/23 05:03 Total Bilirubin 0.5 mg/dL (0.15-1.2) 04/19/23 09:56 AST 13 U/L (0-40) 04/19/23 09:56 ALT 13 U/L (0-41) 04/19/23 09:56 Alkaline Phosphatase 164 U/L (40-130) H 04/19/23 09:56 Total Protein 6.2 g/dL (6.6-8.7) L 04/19/23 09:56 Albumin 3.5 g/dL (3.5-5.2) 04/19/23 09:56 Globulin 2.7 g/dL (1.3-4.6) 04/19/23 09:56 Vitamin B12 313 pg/mL (232-1245) 04/19/23 09:56 Vitals Last Vital Signs Temp 97.4 F L 04/21/23 04:00 Pulse 81 04/21/23 07:53 Resp 18 04/21/23 07:53 BP 137/68 04/21/23 07:53 Pulse Ox 95 04/21/23 07:53 O2 Del Method Room Air 04/21/23 07:53 Discharge Plan Discharge Patient Disposition: Xfer SNF Condition: Stable Prescriptions: New hydralazine 25 mg Tablet 25 mg PO BID Qty: 60 0RF Continued (DME) ottobock afo to right See Rx Instructions .Route .MEDSUPPLY Qty: 1 0RF Rx Instructions: As directed by [facility] ([facility] [place]) Diabetic Shoes with 3 pairs of inserts See Rx Instructions .ROUTE .MEDSULY Qty: 1 0RF Rx Instructions: As directed by [employer] [employer] [facility] ([facility] [place]) Silver Alginate Dressing and 2 Layer Compression System Wraps See Rx Instructions .Route .MEDSUPPLY Qty: 1 0RF Rx Instructions: Dressing supplies needed for 30 days with 3 Refills (DME) 2 Layer Compression Bandage System- Coflex TLC LITE Calamine with Indicators 4 in x6 yard/4 in by 7 yard See Rx Instructions .Route .MEDSUPPLY Qty: 1 0RF Rx Instructions: 32 boxes needed for 3 months Compression 20 to 30 mmHg- Ref. # [id number] prazosin 1 mg Capsule 1 mg PO BEDTIME@20 thiamine HCl (vitamin B1) 100 mg Tablet 100 mg PO DAILY@08 allopurinol 300 mg Tablet 300 mg PO DAILY@08 polyethylene glycol 3350 [Miralax] 17 gram/dose Powder 17 g PO DAILY@08 rosuvastatin 10 mg Tablet 10 mg PO BEDTIME@20 duloxetine 30 mg Capsule,Delayed Release(Dr/Ec) 30 mg PO DAILY@08 Jardiance 25 mg Tablet 25 mg PO DAILY@08 magnesium oxide 400 mg magnesium Tablet 400 mg PO DAILY@08 Nitrostat 0.4 mg Tablet, Sublingual 0.4 mg SUBLINGUAL Q5M PRN (Reason: Chest Pain) Rx Instructions: do not exceed 3 doses per episode white petrolatum Gel See Rx Instructions .ROUTE .COMPLEX Rx Instructions: as directed topically every shift Lantus U-100 Insulin 100 unit/mL solution 45 unit SUBCUT BEDTIME tamsulosin 0.4 mg capsule 0.4 mg PO BEDTIME@20 finasteride 5 mg tablet 5 mg PO DAILY@08 Eliquis 5 mg tablet 5 mg PO BID@08,20 Novolog U-100 Insulin aspart 100 unit/mL solution See Rx Instructions .ROUTE .COMPLEX Rx Instructions: per sliding scale before meals (if blood sugar is less than 60 call ) 141-180=0 units 181-220=2 units 221-260=4 units 261-300=6 units 301-350=8 units 351-400=10 units 401-450=12 units if bs is greater than 450 give 14 units if bs is greater than 500 call Novolog U-100 Insulin aspart 100 unit/mL solution 15 unit SUBCUT .WITH MEALS pentoxifylline 400 mg Tablet Extended Release 400 mg PO DAILY@08 pregabalin [Lyrica] 300 mg Capsule 300 mg PO BID@08,20 magnesium hydroxide [Milk of Magnesia] 400 mg/5 mL Suspension See Rx Instructions .ROUTE .COMPLEX PRN (Reason: Constipation) Rx Instructions: Take 30 mL orally every 72 hours as needed if no BM in 3 days. Do not give to renal patients. Go to dulcolax orders. bisacodyl [Dulcolax (bisacodyl)] 10 mg Suppository 10 mg OH DAILY PRN (Reason: Constipation) Rx Instructions: give rectally if cant take po if no results from mom bisacodyl [Dulcolax (bisacodyl)] 5 mg Tablet,Delayed Release (Dr/Ec) See Rx Instructions .ROUTE .COMPLEX PRN (Reason: Constipation) Rx Instructions: take 10mg (2 tabs) po once a day if needed (give if no results from mom) lactulose 10 gram/15 mL (15 mL) Solution 30 ml PO DAILY acetaminophen 325 mg Tablet 650 mg PO QID PRN (Reason: pain or temp) pantoprazole 40 mg tablet,delayed release (DR/EC) 40 mg PO DAILY@08 triamcinolone acetonide 0.1 % Ointment 1 applic TOPICAL TID PRN (Reason: Rash) oxycodone 5 mg tablet 5 mg PO Q4H PRN (Reason: Pain) Ozempic 1 mg/dose (4 mg/3 mL) pen injector 1 mg SUBCUT Q7D Rx Instructions: on Thursday metoprolol tartrate 25 mg Tablet 12.5 mg PO BID@0900,2100 Qty: 90 0RF Rx Instructions: hold if pulse <60 or bp <120/60 Changed bumetanide 2 mg tablet 2 mg PO DAILY Qty: 30 0RF potassium chloride 20 mEq tablet extended release 20 meq PO DAILY@08 Qty: 30 0RF Discontinued lisinopril 40 mg Tablet 40 mg PO DAILY@08 diphenhydramine HCl [Banophen] 25 mg capsule 25 mg PO Q6H PRN (Reason: Rash) spironolactone 50 mg tablet 50 mg PO DAILY@08 Discharge Orders: Discharge Order (Routine); Ordered 04/21/23 Ordered By: Nik Douglas Referrals: [facility] [Outside] Jessica Bui MD [Primary Care Provider] - Discharge Diet: Diabetic Patient Instructions: Opioid Safety Discharge Attestations Time Spent in Discharge Care*: greater than 30 min Status at Discharge: Cognitive status at discharge: cognitively intact , Behavioral status at discharge: cooperative , Quality Metrics Clinical Quality Measures [ No reported AMI, CVA or VTE this stay] Coding Level of Care Code Acute Code for Chg Fwd Diagnoses Benign essential hypertension with target blood pressure below 140/90 I10 Chronic diastolic heart failure I50.32 Status post cardiac pacemaker procedure Z95.0 PVD (peripheral vascular disease) I73.9 Acute kidney injury N17.9 Sacroiliitis M46.1 Hyperkalemia E87.5
--- NOTE | 2023-04-21 11:28 | PC.NURSE ---
This nurse called report to Pauly at [facility] at 1125. Transportation to arrive around 1430.
[2023-04-21 11:32] LABS: SARS Covid-2 Antigen negative (Negative)
[2023-04-21 11:55] VITALS: BP 161/78; PULSE 89; RESP 16; TEMP 36.9; O2SAT 96
[2023-04-21] MEDS: insulin lispro 100 unit/1 mL SUBCUT (12:19)
== END 2023-04-21 14:40 | disposition skilled nursing facility (03) ==
LOC: ER 09:51 → MEDSURG 13:59
PROVIDERS: Admitting Provider Internal Medicine; Emergency Provider Family Medicine; PCP Family Medicine; Visit Provider Internal Medicine
DX: I13.0 Hypertensive heart and chronic kidney disease with heart failure and stage 1 through stage 4 chronic kidney disease, or unspecified chronic kidney disease (principal); I50.32 Chronic diastolic (congestive) heart failure; N18.9 Chronic kidney disease, unspecified; Z95.0 Presence of cardiac pacemaker; E11.22 Type 2 diabetes mellitus with diabetic chronic kidney disease; I73.9 Peripheral vascular disease, unspecified; N17.9 Acute kidney failure, unspecified; M46.1 Sacroiliitis, not elsewhere classified; E87.5 Hyperkalemia; I48.91 Unspecified atrial fibrillation; I25.10 Atherosclerotic heart disease of native coronary artery without angina pectoris; E11.42 Type 2 diabetes mellitus with diabetic polyneuropathy; F17.220 Nicotine dependence, chewing tobacco, uncomplicated; Z79.01 Long term (current) use of anticoagulants; E66.9 Obesity, unspecified; Z68.39 Body mass index [BMI] 39.0-39.9, adult; E78.5 Hyperlipidemia, unspecified; N40.1 Benign prostatic hyperplasia with lower urinary tract symptoms; N13.8 Other obstructive and reflux uropathy
CPT/HCPCS: 36415; 36416; 70450; 80048; 80053; 82607; 82962; 83036; 83735; 85025; 87426; 96361; 96372; 96374; 97116; 97162; 99285; G0378; J1815; J1940; J7030

== ENCOUNTER 2023-05-20 06:00 | Outpatient (RCR) | payer OTHER, SELFPAY | END 2023-05-28 23:59 | disposition home or self-care (01) | LOC: MPT 06:00 | PROVIDERS: Visit Provider Family Medicine | DX: M54.50 Low back pain, unspecified (principal) | CPT/HCPCS: 97110; 97162 ==

== ENCOUNTER 2023-05-29 06:00 | Outpatient (RCR) | payer OTHER, SELFPAY ==
[2023-05-29 11:45] LABS: Anion Gap 14.6 (5-19); Blood Urea Nitrogen 16 mg/dL (8-23); Calcium 8.9 mg/dL (8.5-10.5); Carbon Dioxide 31 mmol/L (22-29); Chloride 100 mmol/L (98-107); Glucose 147 mg/dL (65-115); Osmolality Calculated 298 mOsm/kg (285-295); Potassium 3.6 mmol/L (3.5-5.1); Sodium 142 mmol/L (136-145)
== END 2023-06-28 23:59 | disposition home or self-care (01) ==
LOC: MPT 06:00
PROVIDERS: Internal Medicine; PCP Family Medicine; Visit Provider Family Medicine
DX: M54.50 Low back pain, unspecified (principal)
CPT/HCPCS: 36415; 80048; 97110; 99205

== ENCOUNTER → 2023-06-23 09:38 | Outpatient (BNVA) | payer OTHER, SELFPAY | PROVIDERS: PCP Family Medicine; Visit Provider Podiatrist Foot & Ankle Surgery | DX: M76.811 Anterior tibial syndrome, right leg (principal); M21.41 Flat foot [pes planus] (acquired), right foot; M21.42 Flat foot [pes planus] (acquired), left foot; E11.42 Type 2 diabetes mellitus with diabetic polyneuropathy; I73.9 Peripheral vascular disease, unspecified; L60.3 Nail dystrophy; M76.812 Anterior tibial syndrome, left leg; Z79.4 Long term (current) use of insulin | CPT/HCPCS: 11721; 99213 ==

== ENCOUNTER 2023-06-29 06:00 | Outpatient (RCR) | payer OTHER, SELFPAY | END 2023-07-21 23:59 | disposition home or self-care (01) | LOC: MPT 06:00 | PROVIDERS: PCP Family Medicine; Visit Provider Family Medicine | DX: M54.50 Low back pain, unspecified (principal) | CPT/HCPCS: 97110 ==

== ENCOUNTER → 2023-06-30 09:10 | Outpatient (BNVA) | payer OTHER, SELFPAY | PROVIDERS: PCP Family Medicine; Visit Provider Dermatology | DX: C44.41 Basal cell carcinoma of skin of scalp and neck (principal) | CPT/HCPCS: 11622; 12032 ==

== ENCOUNTER 2023-07-10 12:23 | Outpatient (CLI) | payer OTHER, SELFPAY ==
--- NOTE | 2023-07-10 13:18 | US_ITS ---
WS: [id number] RENAL ULTRASOUND HISTORY: HEMATURIA COMPARISON: 06/25/2021 TECHNIQUE: 2-D and color Doppler imaging of the kidney submitted. Right kidney: 12.1 cm x 6.1 cm x 4.0 cm. Cortex: 1.0 cm Normal size kidney. No cortical thinning. Nonobstructing calcification in the lower pole measures 1.0 x 1.0 x 0.6 cm. Exophytic cyst from the lower pole with through transmission measures 4.2 x 3.9 x 4. 0 cm. Left kidney: 12.7 cm x 5.7 cm x 4.6 cm. Cortex: 1.1 cm Cortical cyst LEFT kidney lower pole measures 2.6 x 2.4 x 2.8 cm. No solid mass. Aorta: Completely obscured by bowel gas. Urinary Bladder: Nondistended. IMPRESSION: 1. Normal size kidneys. No solid mass identified. 2. Bilateral renal cysts. 3. Nonobstructing calcification lower pole RIGHT kidney.
--- NOTE | 2023-07-10 13:30 | US_ITS ---
WS: [id number] ULTRASOUND SOFT TISSUES RIGHT ankle HISTORY: tibialis anterior tendon right foot, elevate a rupture COMPARISON: None available. TECHNIQUE: 2-D and color Doppler imaging is submitted. This is a very limited evaluation of the anterior tibial tendon. The tendon itself is not identified throughout the course. There is a structure centrally which could be the tibial tendon but does not h ave the echogenicity of a normal tendon. Evaluation of the adjacent tendons was not performed. There is a large amount of soft tissue edema. The extensor retinaculum was not identified nor the extensor houses longus tendon. The insertion site to the medial medial cuneiform has not been evaluated at the site of possible rupt ure. IMPRESSION: 1. Incomplete evaluation of the anterior tibial tendon to exclude pathology. 2. Tendon attachment to the medial cuneiform has not been evaluated. 3. Recommendation: Consider MRI of the RIGHT ankle if there is continued concern for anterior tibial tendon rupture.
== END 2023-07-10 12:24 | disposition home or self-care (01) ==
LOC: RAD 12:23
PROVIDERS: PCP Family Medicine; Visit Provider Podiatrist Foot & Ankle Surgery
DX: R31.9 Hematuria, unspecified (principal); M76.811 Anterior tibial syndrome, right leg; N28.1 Cyst of kidney, acquired
CPT/HCPCS: 76770; 76882

== ENCOUNTER → 2023-09-02 11:18 | Outpatient (BNVA) | payer OTHER, SELFPAY | PROVIDERS: PCP Family Medicine; Visit Provider Internal Medicine | DX: E11.65 Type 2 diabetes mellitus with hyperglycemia (principal); E11.42 Type 2 diabetes mellitus with diabetic polyneuropathy; E78.5 Hyperlipidemia, unspecified; E55.9 Vitamin D deficiency, unspecified; I77.9 Disorder of arteries and arterioles, unspecified; R94.39 Abnormal result of other cardiovascular function study; Z86.73 Personal history of transient ischemic attack (TIA), and cerebral infarction without residual deficits; I50.33 Acute on chronic diastolic (congestive) heart failure; E11.22 Type 2 diabetes mellitus with diabetic chronic kidney disease; N18.30 Chronic kidney disease, stage 3 unspecified; Z79.4 Long term (current) use of insulin; Z79.85 Long-term (current) use of injectable non-insulin antidiabetic drugs; Z79.84 Long term (current) use of oral hypoglycemic drugs | CPT/HCPCS: 99214 ==

== ENCOUNTER → 2023-11-17 13:45 | Outpatient (BNVA) | payer OTHER, SELFPAY | PROVIDERS: PCP Family Medicine; Visit Provider Orthopaedic Surgery | DX: M43.16 Spondylolisthesis, lumbar region (principal); M51.37 Other intervertebral disc degeneration, lumbosacral region; M48.062 Spinal stenosis, lumbar region with neurogenic claudication | CPT/HCPCS: 72110; 99214 ==

== ENCOUNTER 2023-12-08 09:41 | Outpatient (CLI) | payer OTHER, SELFPAY | END 2023-12-08 09:42 | disposition home or self-care (01) | LOC: RAD 09:41 | PROVIDERS: PCP Family Medicine; Visit Provider Orthopaedic Surgery | DX: L82.1 Other seborrheic keratosis (principal); D18.01 Hemangioma of skin and subcutaneous tissue; L57.8 Other skin changes due to chronic exposure to nonionizing radiation; Z85.828 Personal history of other malignant neoplasm of skin; L85.3 Xerosis cutis | CPT/HCPCS: 17000; 99214 ==

== ENCOUNTER → 2023-12-14 13:08 | Outpatient (BNVA) | payer OTHER, SELFPAY | PROVIDERS: PCP Family Medicine; Visit Provider Thoracic Surgery (Cardiothoracic Vascular Surgery) | DX: R23.4 Changes in skin texture (principal) | CPT/HCPCS: A6213 ==

== ENCOUNTER → 2023-12-29 15:24 | Outpatient (BNVA) | payer OTHER, SELFPAY | PROVIDERS: PCP Family Medicine; Visit Provider Internal Medicine Cardiovascular Disease | DX: I48.20 Chronic atrial fibrillation, unspecified (principal); I13.0 Hypertensive heart and chronic kidney disease with heart failure and stage 1 through stage 4 chronic kidney disease, or unspecified chronic kidney disease; N18.9 Chronic kidney disease, unspecified; I50.33 Acute on chronic diastolic (congestive) heart failure; I77.9 Disorder of arteries and arterioles, unspecified; Z95.0 Presence of cardiac pacemaker; E78.5 Hyperlipidemia, unspecified; I15.8 Other secondary hypertension; G25.2 Other specified forms of tremor; Z87.891 Personal history of nicotine dependence | CPT/HCPCS: 99215 ==

== ENCOUNTER 2024-01-26 13:28 | Outpatient (CLI) | payer OTHER, SELFPAY ==
--- NOTE | 2024-01-26 14:00 | USCV_ITS ---
Giles Guillaume Age: 73 Gender: M : 1950 Exam Date: 01/26/2024 13:58 Ordering Phys: Refugio Kraus MD ([email or web address]) Technologist: LILLIAN Exam Location: [facility] [place] Indication: stenosis Risk Factors: Previous Vascular Surgery: Right Brachial BP: / Left Brachial BP: / Right Left Velocity (cm/s) Spectral Plaque Velocity (cm/s) Spectral Plaque Syst/Diast Broadening Syst/Diast Broadening 64.70/ 9.80 Prox CCA 43.20 / 9.30 54.50/ 11.90 Mid CCA 61.90 / 12.70 45.60/ 11.10 Distal CCA 52.20 / 9.00 133.80/26.90 Prox ICA 59.30 / 11.40 67.70/ 13.80 Mid ICA 40.20 / 16.20 41.60/ 11.60 Distal ICA 119.30/ 56.60 125.20 ECA 126.10 2.90 ICA/CCA 2.30 Antegrade Vertebral Antegrade 28.00/ 7.30 cm/s 63.90/ 23.90 cm/s Tri Subclavian Bi 82.80 162.2 0 FINDINGS Comparison:. 01/22/21 No significant elevation of systolic velocity. The ICA/CCA ratios are elevated. Mild diffuse scattered plaque. Antegrade vertebral arteries. CONCLUSIONS Bilateral ICA stenosis less than 50%. Mild carotid atherosclerosis. Dr. Iza Carroll DO (Electronically Signed) Final Date: 26 January 2024 16:04 S
== END 2024-01-26 13:29 | disposition home or self-care (01) ==
LOC: RAD 13:29
PROVIDERS: PCP Family Medicine; Visit Provider Internal Medicine Cardiovascular Disease
DX: I65.23 Occlusion and stenosis of bilateral carotid arteries (principal)
CPT/HCPCS: 93880

== ENCOUNTER 2024-03-06 17:17 | Inpatient (IN) | payer OTHER, SELFPAY ==
[2024-03-06 17:19] VITALS: BP 199/89; PULSE 69; RESP 17; TEMP 37; O2SAT 96; BMI 39.5
--- NOTE | 2024-03-06 17:22 | XRR_ITS ---
PROCEDURE INFORMATION: Exam: XR Chest Exam date and time: 03/06/2024 5:55 PM Age: 74 years old Clinical indication: Other: Hypertension; Prior surgery; Surgery date: 6+ months; Surgery type: Pacemaker; Patient HX: PT arrives via EMS with bilateral lower extremety edema. PT is unable to bear weight on his left foot. PT also has a wound on his buttox. PT has visable discoloration to bilateral extremeties. ; Additional info: HTN TECHNIQUE: Imaging protocol: Radiologic exam of the chest. Views: 1 view. COMPARISON: CR XR chest 1V portable [id number] 03/31/2023 4:57 PM FINDINGS: Tubes, catheters and devices: Left subclavian pacer with a single right ventricular lead. Lungs: Streaky left basilar opacities. Pleural spaces: Small left pleural effusion. Heart/Mediastinum: Stable cardiomegaly. Bones/joints: Unremarkable. XR/XR chest 1V portable [id number] IMPRESSION: 1. Left basilar opacities may represent atelectasis versus infiltrate. 2. Small left pleural effusion.
--- NOTE | 2024-03-06 17:22 | USR_ITS ---
PROCEDURE INFORMATION: Exam: US Duplex Bilateral Lower Extremity Arteries Exam date and time: 03/06/2024 6:23 PM Age: 74 years old Clinical indication: Pain; Leg, upper; Left; Additional info: Leg pain TECHNIQUE: Imaging protocol: Real-time ultrasound scan of the arteries of the bilateral lower extremities with 2-D fernandes scale, color Doppler flow and spectral waveform analysis. Images documented and saved. COMPARISON: US soft tissue/extremity [id number] 07/10/2023 1:08 PM FINDINGS: Right external iliac artery: Right common iliac artery: No occlusion or significant stenosis. Normal waveform. Peak systolic velocity 143 cm/s. Right common femoral artery: No occlusion or significant stenosis. Normal waveform. Peak systolic velocity 150 cm/s. Right superficial femoral artery: No occlusion or significant stenosis. Normal waveform. Peak systolic velocity 155 cm/s. Right popliteal artery: No occlusion or significant stenosis. Normal waveform. Peak systolic velocity 54 cm/s. Right calf/foot arteries: No occlusion or significant stenosis in the visualized arteries. Dorsalis pedis artery is patent. Monophasic waveform in the right posterior tibial artery and dorsalis pedis artery. Right ankle-brachial index 0.6. Left common femoral artery: No occlusion or significant stenosis. Normal waveform. Peak systolic velocity 249 cm/s. Left superficial femoral artery: No occlusion or significant stenosis. Normal waveform. Peak systolic velocity 281 cm/s. Left popliteal artery: No occlusion or significant stenosis. Normal waveform. Peak systolic velocity 60 cm/s. Left calf/foot arteries: No occlusion or significant stenosis in the visualized arteries. Dorsalis pedis artery is patent. Monophasic waveform in the posterior tibial artery. Left ankle-brachial index 0.5. US/CV arterial duplex [facility] [id number] IMPRESSION: 1. Reduced ankle-brachial indices bilaterally, 0.6 on the right and 0.5 on the left, compatible with at least moderate peripheral arterial disease. 2. Elevated peak systolic velocity in the left superficial femoral artery. 3. No occlusion within the arteries of the lower extremities bilaterally.
--- NOTE | 2024-03-06 17:32 | ED_ITS ---
HPI - Extremity Problem 2 General: Chief complaint: Extremity Problem,Nontraumatic Stated complaint: SWOLLEN LEGS Time Seen by Provider: 03/06/24 17:18 Source: patient and EMS Mode of arrival: EMS Limitations: no limitations History of Present Illness: 74-year-old male who has multiple medica l issues states he has been having increased swelling to his lower extremities it has been going on for weeks. He states he has been having left leg pain is lower leg as well. He states he is developed a wound on his buttocks because he sits most days as he has difficulty with ambulation. He denies any fevers denies any chest pain. Associated symptoms: Deny chest pain, fever(s) or rash Related Data Home Medications Medication Instructions Recorded Confirmed pentoxifylline 400 mg 400 mg PO DAILY@08/14/22 11/17/23 tablet,extended release pregabalin 300 mg capsule (Lyrica) 300 mg PO BID@08/14/22 11/17/23 allopurinol 300 mg tablet 300 mg PO DAILY@12/19/22 11/17/23 duloxetine 30 mg capsule,delayed 30 mg PO DAILY@12/19/22 11/17/23 release empagliflozin 25 mg tablet 25 mg PO DAILY@12/19/22 11/17/23 (Jardiance) magnesium oxide 400 mg PO DAILY@12/19/22 11/17/23 polyethylene glycol 3350 17 17 g PO DAILY@12/19/22 11/17/23 gram/dose oral powder (Miralax) prazosin 1 mg capsule 1 mg PO BEDTIME@12/19/22 11/17/23 thiamine HCl (vitamin B1) 100 mg 100 mg PO DAILY@12/19/22 11/17/23 tablet acetaminophen 325 mg tablet 650 mg PO QID PRN pain or temp 04/01/23 11/17/23 bisacodyl 10 mg rectal suppository 10 mg OH DAILY PRN Constipation 04/01/23 11/17/23 (Dulcolax (bisacodyl)) bisacodyl 5 mg tablet,delayed See Rx Instructions .Route 04/01/23 11/17/23 release (Dulcolax (bisacodyl)) .COMPLEX PRN Constipation lactulose 10 gram/15 mL (15 mL) 30 ml PO DAILY 04/01/23 11/17/23 oral solution magnesium hydroxide 400 mg/5 mL See Rx Instructions .Route 04/01/23 11/17/23 oral suspension (Milk of Magnesia) .COMPLEX PRN Constipation oxycodone 5 mg tablet 5 mg PO Q4H PRN Pain 04/01/23 11/17/23 pantoprazole 40 mg tablet,delayed 40 mg PO DAILY@08 04/01/23 11/17/23 release semaglutide 1 mg/dose (4 mg/3 mL) 1 mg SUBCUT Q7D 04/01/23 11/17/23 subcutaneous pen injector (Ozempic) triamcinolone acetonide 0.1 % 1 applic topical TID PRN Rash 04/01/23 11/17/23 topical ointment apixaban 5 mg tablet (Eliquis) 5 mg PO BID@04/19/23 11/17/23 finasteride 5 mg tablet 5 mg PO DAILY@08 04/19/23 11/17/23 insulin glargine 100 unit/mL 45 unit SUBCUT BEDTIME 04/19/23 11/17/23 subcutaneous solution (Lantus U-100 Insulin) nitroglycerin 0.4 mg sublingual 0.4 mg sublingual Q5M PRN Chest 04/19/23 11/17/23 tablet (Nitrostat) Pain tamsulosin 0.4 mg capsule 0.4 mg PO BEDTIME@20 04/19/23 11/17/23 white petrolatum See Rx Instructions .Route .COMPLEX 04/19/23 11/17/23 Previous Rx's Medication Instructions Recorded ottobock afo to right #1 ea 08/05/21 Diabetic Shoes with 3 pairs of #1 ea 06/18/22 inserts Silver Alginate Dressing and 2 #1 ea 08/06/22 Layer Compression System Wraps 2 Layer Compression Bandage #1 ea 01/22/23 System- Coflex TLC LITE Calamine with Indicators 4 in x6 yard/4 in by 7 yard metoprolol tartrate 25 mg tablet 12.5 mg (1/2 x 25 mg) PO 04/03/23 BID@0900,2100 #90 tabs bumetanide 2 mg tablet 2 mg PO DAILY #30 tabs 04/21/23 hydralazine 25 mg tablet 25 mg PO BID #60 tabs 04/21/23 potassium chloride 20 mEq 20 meq PO DAILY@08 #30 tabs 04/21/23 tablet,extended release atorvastatin 40 mg tablet 40 mg PO DAILY #90 tabs 05/29/23 insulin aspart U-100 100 unit/mL 12 unit (0.12 mL) SUBCUT .WITH 09/02/23 subcutaneous solution (Novolog MEALS #10 mL U-100 Insulin aspart) Allergies Allergy/AdvReac Type Severity Reaction Status Date / Time aspirin Allergy ALGY-Anaphy Verified 12/29/23 15:32 laxis atorvastatin Allergy Unknown Verified 12/29/23 15:32 carvedilol AdvReac diarrhea Verified 12/29/23 15:32 hydralazine AdvReac vomiting Verified 12/29/23 15:32 Review of Systems 2 Const: Denies: fever(s), chills, body aches or change in appetite ENMT: Denies: throat pain or dental pain Card: Denies: chest pain Resp: Denies: dyspnea GI: Denies: abdominal pain, nausea, vomiting or diarrhea Musc: Reports: extremity pain and extremity swelling; Denies: neck pain or back pain Skin/Breast: Denies: rash Neuro: Denies: headache(s) PFSH ED 2 PFSH: Medical History Atrial fibrillation Chronic, history of bradycardia with beta blockers, on eliquis Hyperkalemia Cervical radiculopathy Acute kidney injury Weakness Chronic venous insufficiency Benign essential hypertension with target blood pressure below 140/90 Sacroiliitis Hypertension Constipation Gout attack Acute on chronic diastolic (congestive) heart failure Hypokalemia CHF exacerbation Swelling of right upper extremity Atrial fibrillation Peripheral arterial disease CKD (chronic kidney disease) Ischemic toe ulcer Physical deconditioning Bilateral lower leg cellulitis Temporary transvenous cardiac pacemaker present BMI 40.0-44.9, adult Hyperkalemia Squamous cell carcinoma in situ Abnormal nuclear stress test Accelerated hypertension Chronic diastolic heart failure Atrial fibrillation Acute kidney injury Rhabdomyolysis Coronary artery disease Evaluated in [place], patient reports 55% narrowing unknown vessel no stent or angioplasty done PAD (peripheral artery disease) Calculus of proximal ureter Diabetic neuropathy associated with type 2 diabetes mellitus Lumbar foraminal stenosis Bradycardia Nicotine dependence, chewing tobacco, with other nicotine-induced disorders Diabetes mellitus, type II Chronic anticoagulation eliquis Osteoarthritis Obesity BMI-42 kg/m2 Chronic kidney disease Hyperlipidemia Obstructive sleep apnea not on treatment by choice CVA (cerebral vascular accident) residual right weakness Congestive heart failure BPH NOS w/o ur obs/LUTS PVD (peripheral vascular disease) Pes planus of both feet Renal calculus, right Surgical History Hx of colonoscopy with polypectomy Status post cardiac pacemaker procedure No pertinent past surgical history Family History Mother , 87 Diabetes CAD (coronary artery disease) Hypertension Father , 60 No problems noted. Social History Smoking and tobacco/nicotine status: former use of tobacco/nicotine Alcohol intake: former Year of sobriety/quit date alcohol: 25 y Former alcohol use details: heavy use, 5 DWI's Substance/Drug Use: former Household members: none Housing: House Marital status: service: Yes Current occupational status: retired Physical Exam 2 Const: COMMON NORMALS: no acute distress, patient oriented x3 and healthy appearing HENMT: COMMON NORMALS: normocephalic and atraumatic HEAD & SCALP: n ormocephalic and atraumatic Eye: COMMON NORMALS: conjunctivae normal CONJUNCTIVA: Yes conjunctivae normal Neck/C-Spine: COMMON NORMALS: full ROM and supple Chest: COMMONS NORMALS: normal inspection of the chest Resp: COMMON NORMALS: normal respiratory effort, No retractions, No use of accessory muscles and clear to auscultation bilaterally AUSCULTATION: clear to auscultation bilaterally Cardio: COMMON NORMALS: regular rate, regular rhythm and No murmurs present (Cardio) RATE: regular rate RHYTHM: regular rhythm GI: COMMON NORMALS: Normal to inspection, nondistended, normoactive bowel sounds present, Soft to palpation, non-tender and no masses PALPATION: Yes Soft to palpation Back/Pelvis: OTHER: Small pea-sized pressure ulcer is very superficial to left buttocks Extremity: NARRATIVE EXTREMITY EXAM: Edema to bilateral extremities tenderness palpation left greater than right Neuro: COMMON NORMALS: patient oriented x3, moves all extremities and no focal motor deficits Psych: COMMON NORMALS: mental status grossly normal, Normal thought process present and cooperative THOUGHT PROCESS: Normal thought process present Skin: COMMON NORMALS: no rashes or lesions noted and no wounds GENERAL SKIN EXAM: no rashes or lesions noted Course 2 Vital Signs: Vital signs: Vital Signs Temperature 98.6 F 03/06/24 17:19 Pulse Rate 60 03/06/24 20:00 Respiratory Rate 20 H 03/06/24 18:08 Blood Pressure 174/56 03/06/24 20:00 Pulse Oximetry 95 03/06/24 20:00 Oxygen Delivery Me thod Room Air 03/06/24 20:00 MDM - Extremity (Nontraumatic) Medical Decision Making Patient presents for lower extreme edema along with generalized weakness she does have quite a bit edema to his lower extremities did give him IV Lasix try to ambulate him here is not able to ambulate lives home alone and says he cannot care for himself spoke to hospitalist will admit at this time. Medical Records I reviewed the patient's medical records. Lab Data I reviewed the patient's lab results. 03/06/24 17:48 03/06/24 17:48 Radiology Impressions Chest X-Ray 03/06/24 17:22 IMPRESSION: 1. Left basilar opacities may represent atelectasis versus infiltrate. 2. Small left pleural effusion. Laboratory Results WBC 13.52 10^3/uL (3.29-11.43) H 03/06/24 17:48 RBC 6.35 10^6/uL (3.85-5.65) H 03/06/24 17:48 Hgb 17.90 g/dL (11.27-16.99) H 03/06/24 17:48 Hct 55.3 % (37-53) H 03/06/24 17:48 MCV 87.1 fl (82-101) 03/06/24 17:48 MCH 28.2 pg (27-33) 03/06/24 17:48 MCHC 32.4 g/dL (30-55) 03/06/24 17:48 RDW 13.8 % (12.1-15.1) 03/06/24 17:48 Plt Count 189 10^3/cmm (157-399) 03/06/24 17:48 MPV 10.9 fL (7.4-10.4) H 03/06/24 17:48 Neut % (Auto) 82.6 % 03/06/24 17:48 Lymph % (Auto) 10.8 % 03/06/24 17:48 [place] % (Auto) 5.8 % 03/06/24 17:48 Eos % (Auto) 0.1 % 03/06/24 17:48 Baso % (Auto) 0.3 % 03/06/24 17:48 Neut # (Auto) 11.17 10^3/uL (1.8-7.7) H 03/06/24 17:48 Lymph # (Auto) 1.5 10^3/uL (0.8-4.8) 03/06/24 17:48 [place] # (Auto) 0.8 10^3/uL (0.2-0.9) 03/06/24 17:48 Eos # (Auto) 0.0 10^3/uL (0.0-0.8) 03/06/24 17:48 Baso # (Auto) 0.0 10^3/uL (0.0-0.1) 03/06/24 17:48 Nucleated RBC % (auto) 0 % 03/06/24 17:48 Nucleated RBCs # 0.0 /100WBC 03/06/24 17:48 PT 15.00 SECONDS (12.1-14.9) H 03/06/24 17:48 INR 1.14 (0.8-1.2) 03/06/24 17:48 Sodium 141 mmol/L (136-145) 03/06/24 17:48 Potassium 3.9 mmol/L (3.5-5.1) 03/06/24 17:48 Chloride 99 mmol/L (98-107) 03/06/24 17:48 Carbon Dioxide 19 mmol/L (22-29) L 03/06/24 17:48 Anion Gap 26.9 (5-19) H 03/06/24 17:48 BUN 18 mg/dL (8-23) 03/06/24 17:48 Creatinine 1.3 mg/dL (0.7-1.2) H 03/06/24 17:48 GFR Calculation Not Reportable 03/06/24 17:48 Glucose 134 mg/dL (65-115) H 03/06/24 17:48 POC Glucose 193 mg/dL (70-110) H 03/06/24 18:19 Calculated Osmolality 296 mOsm/kg (285-295) H 03/06/24 17:48 Calcium 9.2 mg/dL (8.5-10.5) 03/06/24 17:48 Magnesium 2.0 mg/dL (1.7-2.3) 03/06/24 17:48 Total Bilirubin 0.8 mg/dL (0.15-1.2) 03/06/24 17:48 AST 13 U/L (0-40) 03/06/24 17:48 ALT 8 U/L (0-41) 03/06/24 17:48 Alkaline Phosphatase 113 U/L (40-130) 03/06/24 17:48 NT-Pro-B Natriuret Pep 3729 pg/mL (0-450) H 03/06/24 17:48 Total Protein 6.8 g/dL (6.6-8.7) 03/06/24 17:48 Albumin 3.5 g/dL (3.5-5.2) 03/06/24 17:48 Globulin 3.3 g/dL (1.3-4.6) 03/06/24 17:48 All radiology interpretation(s) finalized by discharge EKG Data EKG 1: I personally reviewed and interpreted this EKG as follows: EKG interpretation date: 03/06/24 EKG interpretation time: 17:35 Interpretation: paced hr [address] elevation qrs 180 qtc 550 Discharge Plan Discharge Patient Disposition: Admitted As Inpatient Clinical Impression: Congestive heart failure, Bilateral edema of lower extremity, Generalized weakness Condition: Stable Prescriptions: No Action (DME) ottobock afo to right See Rx Instructions .Route .MEDSUPPLY Qty: 1 0RF Rx Instructions: As directed by [employer] (DME) Diabetic Shoes with 3 pairs of inserts See Rx Instructions .ROUTE .MEDSUPPLY Qty: 1 0RF Rx Instructions: As directed by [facility] insulin aspart U-100 [Novolog U-100 Insulin aspart] 100 unit/mL solution 12 unit SUBCUT .WITH MEALS Qty: 10 1RF atorvastatin 40 mg tablet 40 mg PO DAILY Qty: 90 1RF (DME) Silver Alginate Dressing and 2 Layer Compression System Wraps See Rx Instructions .Route .MEDSUPPLY Qty: 1 0RF Rx Instructions: Dressing supplies needed for 30 days with 3 Refills (DME) 2 Layer Compression Bandage System- Coflex TLC LITE Calamine with Indicators 4 in x6 yard/4 in by 7 yard See Rx Instructions .Route .MEDSUPPLY Qty: 1 0RF Rx Instructions: 32 boxes needed for 3 months Compression 20 to 30 mmHg- Ref. # [id number] prazosin 1 mg Capsule 1 mg PO BEDTIME@20 thiamine HCl (vitamin B1) 100 mg Tablet 100 mg PO DAILY@08 allopurinol 300 mg Tablet 300 mg PO DAILY@08 polyethylene glycol 3350 [Miralax] 17 gram/dose Powder 17 g PO DAILY@08 duloxetine 30 mg Capsule,Delayed Release(Dr/Ec) 30 mg PO DAILY@08 Jardiance 25 mg Tablet 25 mg PO DAILY@08 magnesium oxide 400 mg magnesium Tablet 400 mg PO DAILY@08 Nitrostat 0.4 mg Tablet, Sublingual 0.4 mg SUBLINGUAL Q5M PRN (Reason: Chest Pain) Rx Instructions: do not exceed 3 doses per episode white petrolatum Gel See Rx Instructions .ROUTE .COMPLEX Rx Instructions: as directed topically every shift Lantus U-100 Insulin 100 unit/mL solution 45 unit SUBCUT BEDTIME tamsulosin 0.4 mg capsule 0.4 mg PO BEDTIME@20 finasteride 5 mg tablet 5 mg PO DAILY@08 Eliquis 5 mg tablet 5 mg PO BID@08,20 hydralazine 25 mg Tablet 25 mg PO BID Qty: 60 0RF bumetanide 2 mg tablet 2 mg PO DAILY Qty: 30 0RF potassium chloride 20 mEq tablet extended release 20 meq PO DAILY@08 Qty: 30 0RF pentoxifylline 400 mg Tablet Extended Release 400 mg PO DAILY@08 pregabalin [Lyrica] 300 mg Capsule 300 mg PO BID@08,20 magnesium hydroxide [Milk of Magnesia] 400 mg/5 mL Suspension See Rx Instructions .ROUTE .COMPLEX PRN (Reason: Constipation) Rx Instructions: Take 30 mL orally every 72 hours as needed if no BM in 3 days. Do not give to renal patients. Go to dulcolax orders. bisacodyl [Dulcolax (bisacodyl)] 10 mg Suppository 10 mg OH DAILY PRN (Reason: Constipation) Rx Instructions: give rectally if cant take po if no results from mom bisacodyl [Dulcolax (bisacodyl)] 5 mg Tablet,Delayed Release (Dr/Ec) See Rx Instructions .ROUTE .COMPLEX PRN (Reason: Constipation) Rx Instructions: take 10mg (2 tabs) po once a day if needed (give if no results from mom) lactulose 10 gram/15 mL (15 mL) Solution 30 ml PO DAILY acetaminophen 325 mg Tablet 650 mg PO QID PRN (Reason: pain or temp) pantoprazole 40 mg tablet,delayed release (DR/EC) 40 mg PO DAILY@08 triamcinolone acetonide 0.1 % Ointment 1 applic TOPICAL TID PRN (Reason: Rash) oxycodone 5 mg tablet 5 mg PO Q4H PRN (Reason: Pain) Ozempic 1 mg/dose (4 mg/3 mL) pen injector 1 mg SUBCUT Q7D Rx Instructions: on Thursday metoprolol tartrate 25 mg Tablet 12.5 mg PO BID@0900,2100 Qty: 90 0RF Rx Instructions: hold if pulse <60 or bp <120/60 Referrals: Jessica Bui MD [Primary Care Provider] - Coding Level of Care Code ED Correctional Therapy Director for Yris Tee
--- NOTE | 2024-03-06 17:35 | ECG_ITS ---
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
[2024-03-06 17:56] LABS: Basophils % 0.3 %; Eosinophils % 0.1 %; Hematocrit 55.3 % (37-53); Lymphocytes # 1.5 10^3/uL (0.8-4.8); Lymphocytes % 10.8 %; Mean Corpuscular HGB Conc 32.4 g/dL (30-55); Mean Corpuscular Hemoglobin 28.2 pg (27-33); Mean Corpuscular Volume 87.1 fl (82-101); Mean Platelet Volume 10.9 fL (7.4-10.4); Monocytes # 0.8 10^3/uL (0.2-0.9); Monocytes % 5.8 %; Neutrophils # 11.17 10^3/uL (1.8-7.7); Neutrophils % 82.6 %; Nucleated Red Blood Cells % 0 %; Platelet Count 189 10^3/cmm (157-399); Red Blood Count 6.35 10^6/uL (3.85-5.65); Red Cell Distribution Width 13.8 % (12.1-15.1); White Blood Count 13.52 10^3/uL (3.29-11.43)
[2024-03-06 18:08] VITALS: BP 216/79; PULSE 60; RESP 20; O2SAT 95
[2024-03-06 18:12] LABS: INR 1.14 (0.8-1.2)
[2024-03-06] MEDS: FUROsemide 10 mg/mL SDV 10mL 60 MG IVP (18:15)
[2024-03-06] MEDS: hyDRALAzine 20 mg/mL INJ 1 mL 10 MG IVP (18:15)
[2024-03-06 18:22] LABS: Alanine Aminotransferase 8 U/L (0-41); Albumin Level 3.5 g/dL (3.5-5.2); Alkaline Phosphatase 113 U/L (40-130); Anion Gap 26.9 (5-19); Aspartate Amino Transferase 13 U/L (0-40); Blood Urea Nitrogen 18 mg/dL (8-23); Calcium 9.2 mg/dL (8.5-10.5); Carbon Dioxide 19 mmol/L (22-29); Chloride 99 mmol/L (98-107); Creatinine Clr Calc Pharmacy 71.0911; Globulin 3.3 g/dL (1.3-4.6); Glucose 134 mg/dL (65-115); NT Pro B Type Natriuretic Pept 3729 pg/mL (0-450); Osmolality Calculated 296 mOsm/kg (285-295); Potassium 3.9 mmol/L (3.5-5.1); Sodium 141 mmol/L (136-145); Total Bilirubin 0.8 mg/dL (0.15-1.2); Total Protein 6.8 g/dL (6.6-8.7)
[2024-03-06 18:22] LABS: Glucose Point of Care 193 mg/dL (70-110)
[2024-03-06 20:00] VITALS: BP 174/56; PULSE 60; O2SAT 95
[2024-03-06] MEDS: cloNIDine 0.1 mg Tablet 0.2 MG PO (20:06)
--- NOTE | 2024-03-06 20:12 | P.HP_ITS ---
Providers/Chief Complaint 2 Primary Care Provider: Jessica Bui MD Chief Complaint: SWOLLEN LEGS History of Present Illness Giles Guillaume is a 74 year old male with history of hypertension, A-fib status post pacemaker, diabetes, insulin-dependent, chronic kidney disease, peripheral arterial disease, quit smoking and alcohol, on Eliquis, takes Bumex has history of CHF presented with chief complaint of not been able to walk properly. Patient is sick that he lives alone, he has been incontinent has been swelling himself with fecal matter and urine at least once a day, he has not noticed any fever but endorsing orthopnea PND intermittent chest pain which he is describing as pressure-like sensation which would last few minutes, he is not very active at baseline, uses a walker. His blood sugar in the fasting state is ranging between 1 30-175 mg/dL. Patient is stating that he has spent 4 months at [facility] in the past at that point he was planning to appoint medical DPOA but he has not been able to appoint someone because he does not trust his family and nephew. Patient is stating that he is interested in appointing a medical DPOA and would need social service consult. At the time of my evaluation TIKI was done Reduced ankle-brachial indices bilaterally, 0.6 on the right and 0.5 on the left, compatible with at least moderate peripheral arterial disease. 2. Elevated peak systolic velocity in the left superficial femoral artery. 3. No occlusion within the arteries of the lower extremities bilaterally Patient not complaining active chest pain, positive for anasarca He was nauseous had 1 episode of emesis, I requested CT abdomen pelvis without contrast Review of Systems 2 Const: Reports: body aches, change in weight and fatigue; Denies: fever(s) Eyes: Denies: change in vision ENMT: Denies: throat pain Card: Reports: chest pain Resp: Reports: dyspnea GI: Denies: abdominal pain : Denies: flank pain Musc: Denies: neck pain Medications/Allergies Home Medications Medication Instructions Recorded Confirmed Last Taken Type [place] afo to right #1 ea 08/05/21 11/17/23 Unknown Rx Diabetic Shoes with 3 pairs of #1 ea 06/18/22 11/17/23 Unknown Rx inserts Silver Alginate Dressing and 2 #1 ea 08/06/22 11/17/23 Unknown Rx Layer Compression System Wraps pentoxifylline 400 mg 400 mg PO DAILY@08/14/22 11/17/23 04/18/23 History tablet,extended release pregabalin 300 mg capsule (Lyrica) 300 mg PO BID@08/14/22 11/17/23 04/18/23 History allopurinol 300 mg tablet 300 mg PO DAILY@12/19/22 11/17/23 04/18/23 History duloxetine 30 mg capsule,delayed 30 mg PO DAILY@12/19/22 11/17/23 04/18/23 History release empagliflozin 25 mg tablet 25 mg PO DAILY@12/19/22 11/17/23 04/18/23 History (Jardiance) magnesium oxide 400 mg PO DAILY@12/19/22 11/17/23 04/18/23 History polyethylene glycol 3350 17 17 g PO DAILY@12/19/22 11/17/23 04/18/23 History gram/dose oral powder (Miralax) prazosin 1 mg capsule 1 mg PO BEDTIME@12/19/22 11/17/23 04/18/23 History thiamine HCl (vitamin B1) 100 mg 100 mg PO DAILY@12/19/22 11/17/23 04/18/23 History tablet 2 Layer Compression Bandage #1 ea 01/22/23 11/17/23 Unknown Rx System- Coflex TLC LITE Calamine with Indicators 4 in x6 yard/4 in by 7 yard acetaminophen 325 mg tablet 650 mg PO QID PRN pain or temp 04/01/23 11/17/23 Unknown History bisacodyl 10 mg rectal suppository 10 mg [place] DAILY PRN Constipation 04/01/23 11/17/23 Unknown History (Dulcolax (bisacodyl)) bisacodyl 5 mg tablet,delayed See Rx Instructions .Route 04/01/23 11/17/23 Unknown History release (Dulcolax (bisacodyl)) .COMPLEX PRN Constipation lactulose 10 gram/15 mL (15 mL) 30 ml PO DAILY 04/01/23 11/17/23 04/18/23 History oral solution magnesium hydroxide 400 mg/5 mL See Rx Instructions .Route 04/01/23 11/17/23 Unknown History oral suspension (Milk of Magnesia) .COMPLEX PRN Constipation oxycodone 5 mg tablet 5 mg PO Q4H PRN Pain 04/01/23 11/17/23 03/30/23 History pantoprazole 40 mg tablet,delayed 40 mg PO DAILY@08 04/01/23 11/17/23 03/31/23 History release semaglutide 1 mg/dose (4 mg/3 mL) 1 mg SUBCUT Q7D 04/01/23 11/17/23 03/27/23 History subcutaneous pen injector (Ozempic) triamcinolone acetonide 0.1 % 1 applic topical TID PRN Rash 04/01/23 11/17/23 03/20/23 History topical ointment metoprolol tartrate 25 mg tablet 12.5 mg (1/2 x 25 mg) PO 04/03/23 11/17/23 04/18/23 Rx BID@0900,2100 #90 tabs apixaban 5 mg tablet (Eliquis) 5 mg PO BID@04/19/23 11/17/23 04/18/23 History finasteride 5 mg tablet 5 mg PO DAILY@04/19/23 11/17/23 04/18/23 History insulin glargine 100 unit/mL 45 unit SUBCUT BEDTIME 04/19/23 11/17/23 04/18/23 History subcutaneous solution (Lantus U-100 Insulin) nitroglycerin 0.4 mg sublingual 0.4 mg sublingual Q5M PRN Chest 04/19/23 11/17/23 Unknown History tablet (Nitrostat) Pain tamsulosin 0.4 mg capsule 0.4 mg PO BEDTIME@20 04/19/23 11/17/23 04/18/23 History white petrolatum See Rx Instructions .Route .COMPLEX 04/19/23 11/17/23 Unknown History bumetanide 2 mg tablet 2 mg PO DAILY #30 tabs 04/21/23 11/17/23 Unknown Rx hydralazine 25 mg tablet 25 mg PO BID #60 tabs 04/21/23 11/17/23 Unknown Rx potassium chloride 20 mEq 20 meq PO DAILY@08 #30 tabs 04/21/23 11/17/23 Unknown Rx tablet,extended release atorvastatin 40 mg tablet 40 mg PO DAILY #90 tabs 05/29/23 11/17/23 Unknown Rx insulin aspart U-100 100 unit/mL 12 unit (0.12 mL) SUBCUT .WITH 09/02/23 11/17/23 Unknown Rx subcutaneous solution (Novolog MEALS #10 mL U-100 Insulin aspart) Allergies Allergy/AdvReac Type Severity Reaction Status Date / Time aspirin Allergy ALGY-Anaphy Verified 12/29/23 15:32 laxis atorvastatin Allergy Unknown Verified 12/29/23 15:32 carvedilol AdvReac diarrhea Verified 12/29/23 15:32 hydralazine AdvReac vomiting Verified 12/29/23 15:32 PFSH Acute 2 PFSH: Medical History Atrial fibrillation Chronic, history of bradycardia with beta blockers, on eliquis Hyperkalemia Cervical radiculopathy Acute kidney injury Weakness Chronic venous insufficiency Benign essential hypertension with target blood pressure below 140/90 Sacroiliitis Hypertension Constipation Gout attack Acute on chronic diastolic (congestive) heart failure Hypokalemia CHF exacerbation Swelling of right upper extremity Atrial fibrillation Peripheral arterial disease CKD (chronic kidney disease) Ischemic toe ulcer Physical deconditioning Bilateral lower leg cellulitis Temporary transvenous cardiac pacemaker present BMI 40.0-44.9, adult Hyperkalemia Squamous cell carcinoma in situ Abnormal nuclear stress test Accelerated hypertension Chronic diastolic heart failure Atrial fibrillation Acute kidney injury Rhabdomyolysis Coronary artery disease Evaluated in [place], patient reports 55% narrowing unknown vessel no stent or angioplasty done PAD (peripheral artery disease) Calculus of proximal ureter Diabetic neuropathy associated with type 2 diabetes mellitus Lumbar foraminal stenosis Bradycardia Nicotine dependence, chewing tobacco, with other nicotine-induced disorders Diabetes mellitus, type II Chronic anticoagulation eliquis Osteoarthritis Obesity BMI-42 kg/m2 Chronic kidney disease Hyperlipidemia Obstructive sleep apnea not on treatment by choice CVA (cerebral vascular accident) residual right weakness Congestive heart failure BPH NOS w/o ur obs/LUTS PVD (peripheral vascular disease) Pes planus of both feet Renal calculus, right Surgical History Hx of colonoscopy with polypectomy Status post cardiac pacemaker procedure No pertinent past surgical history Family History Mother , 87 Diabetes CAD (coronary artery disease) Hypertension Father , 60 No problems noted. Social History Smoking and tobacco/nicotine status: former use of tobacco/nicotine Alcohol intake: former Year of sobriety/quit date alcohol: 25 y Former alcohol use details: heavy use, 5 DWI's Substance/Drug Use: former Household members: none Housing: House Marital status: service: Yes Current occupational status: retired Vitals/I&O/Wt Last Vital Signs Temp 98.6 F 03/06/24 17:19 Pulse 60 03/06/24 20:00 Resp 20 H 03/06/24 18:08 BP 174/56 03/06/24 20:00 Pulse Ox 95 03/06/24 20:00 O2 Del Method Room Air 03/06/24 20:00 Weight last 48 hrs Weight 136.078 kg Physical Exam 2 Narrative: Patient is awake and alert Anasarca Lower extremity venous's dermatitis Pressure ulcers around sacral area present on admission Pressure ulcer on toes as well Venous's dermatitis with anasarca 3+ edema Nonfocal neuroexam Distended nontender abdomen S1, S2 variable Hemodynamically stable Currently on room air Hypertensive Data 03/06/24 17:48 03/06/24 17:48 A&P Assessment and plan (1) Hypertension: Qualifiers: Hypertension type: other secondary hypertension Qualified Code(s): I 15.8 - Other secondary hypertension (2) Congestive heart failure: Qualifiers: Heart failure chronicity: acute on chronic Heart failure type: d iastolic Qualified Code(s): I50.33 - Acute on chronic diastolic (congestive) heart failure (3) Presence of permanent cardiac pacemaker: (4) Carotid occlusion, bilateral: (5) Atrial fibrillation: (6) Diarrhea: (7) Diabetic peripheral neuropathy associated with type 2 diabetes mellitus: (8) Intention tremor: (9) History of stroke: (10) Foot and toe(s), blister, without mention of infection: (11) Difficulty in walking: (12) Bilateral edema of lower extremity: (13) Generalized weakness: Plan Acute diastolic CHF exacerbation Worsening of anasarca Dietary indiscretion I will start patient on IV diuretics Unstable angina: Patient is stating that he gets chest pain on and off Which would last few minutes it would appear at rest Stress test in March this year was negative for any ischemic changes Carotid disease less than 50% stenosis Peripheral ulcerative disease, Doppler in the ER were done consistent with moderate peripheral arterial disease Patient also has diabetic peripheral neuropathy I will also request B12 He is not able to walk because of edema, stasis dermatitis and neuropathy Will request PT eval in the morning Patient seems to have very poor insight to his multiple comorbid conditions, he may benefit from inpatient cardiology consultation instead of outpatient Chronic A-fib on anticoagulation status post pacemaker Follows up with Dr. Kraus Chronic kidney disease creatinine at baseline Insulin-dependent diabetic: I will reduce the dose of Lantus keep him on sliding scale with consistent carb diet Patient follows up with Dr. Farmer for his diabetic foot ulcer He has bilateral pes planus He is at risk of further injuries Patient was advised not to walk barefoot Patient seems to have very unkept appearance, questionable hygiene Full code Patient does not have any medical DPOA wanting social service consult to arrange that Cardiac/consistent carb diet DVT prophylaxis covered with Eliquis home regimen Attestations 2 Medical Necessity Statement*: More than 2 midnights anticipated Diagnoses Other secondary hypertension I15.8 Hypertension type: other secondary hypertension Acute on chronic diastolic congestive heart failure I50.33 Heart failure chronicity: acute on chronic Heart failure type: diastolic Presence of permanent cardiac pacemaker Z95.0 Carotid occlusion, bilateral I65.23 Longstanding persistent atrial fibrillation I48.91 Diarrhea R19.7 Diabetic peripheral neuropathy associated with type 2 diabetes mellitus E11.42 Intention tremor G25.2 History of stroke Z86.73 Foot and toe(s), blister, without mention of infection Difficulty in walking R26.2 Bilateral edema of lower extremity R60.0 Generalized weakness R53.1
--- NOTE | 2024-03-06 21:04 | CTR_ITS ---
PROCEDURE INFORMATION: Exam: CT Abdomen And Pelvis Without Contrast Exam date and time: 03/06/2024 9:25 PM Age: 74 years old Clinical indication: Abnormal findings; Abnormal lab test; Abnormal kidney function lab tests and elevated wbc; Nausea and vomiting; Patient HX: N/v with elevated wbc and baron. TECHNIQUE: Imaging protocol: Computed tomography of the abdomen and pelvis without contrast. Radiation optimization: All CT scans at this facility use at least one of these dose optimization techniques: automated exposure control; mA and/or kV adjustment per patient size (includes targeted exams where dose is matched to clinical indication); or iterative reconstruction. COMPARISON: CT abdomen pelvis wo con [id number] 03/31/2023 6:55 PM RADIATION DOSE METRICS: Total DLP (mGy-cm): 1545.03 FINDINGS: Lungs: Calcified granuloma in the right lung base. Mild bibasilar atelectasis. Pleural spaces: Trace bilateral pleural effusions. Heart: Partially imaged cardiac pacing leads. Liver: Normal. No mass. Gallbladder and biliary ducts: Cholelithiasis without CT evidence of acute cholecystitis. No biliary ductal dilatation. Pancreas: The pancreas is atrophic. No ductal dilatation. Spleen: Normal. No splenomegaly. Adrenal glands: Similar 1.1 cm left adrenal nodule, likely a benign adenoma. Kidneys and ureters: 1.2 cm nonobstructing calculus in the right lower pole. No significant change in a mildly complex structure in the lower pole of the right kidney measuring 4.3 cm. Additional renal cysts also appear unchanged. Mild bilateral perinephric fat stranding is nonspecific. Stomach and bowel: No mucosal thickening. No obstruction. Colonic diverticulosis without acute diverticulitis. Appendix: No evidence of appendicitis. Intraperitoneal space: Unremarkable. No free air. No significant fluid collection. Vasculature: Diffuse aortoiliac calcifications. No aortic aneurysm. Lymph nodes: Unremarkable. No enlarged lymph nodes. Urinary bladder: Unremarkable as visualized. Reproductive: Unremarkable as visualized. Bones/joints: Multilevel lumbar spondylosis, similar to prior. No acute fracture. Soft tissues: Fat containing inguinal hernias bilaterally. Small fat containing umbilical hernia. CT/CT abdomen pelvis wo con [id number] IMPRESSION: 1. No acute findings within the abdomen/pelvis. 2. Similar 4.3 cm complex hypodense structure along the inferior pole of the right kidney. If not performed previously, MRI abdomen without and with contrast may be of benefit to exclude neoplasm. 3. Additional ancillary findings as above are similar to prior. COMMENTS: Consistent with the [employer]'s Incidental Findings Committee white paper (J Am Narayan Radiol 2017): For any incidental adrenal lesion greater than or equal to 1 cm but less than or equal to 4 cm classified in this report as benign, likely benign, or containing fat (including classification as an adenoma or myelolipoma), no follow-up imaging is recommended per consensus recommendations based on imaging criteria. Further lab evaluation could be pursued if warranted based on clinical findings.
[2024-03-06 22:15] LABS: Troponin(5th) Baseline 67 ng/L (0-15)
[2024-03-06 22:17] LABS: Troponin 5 2HR 70.77 ng/L (0-15)
[2024-03-06 22:23] LABS: Troponin 5 2HR Delta 3.77 ABS# (0-10)
[2024-03-06 22:26] VITALS: BP 175/61; PULSE 60; O2SAT 94
--- NOTE | 2024-03-06 23:26 | ECG_ITS ---
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
[2024-03-07] VITALS (10 sets, daily range): BP systolic 177–199; BP diastolic 68–84; PULSE 59–100; RESP 16–25; TEMP 36.5–36.9; O2SAT 92–96
--- NOTE | 2024-03-07 00:20 | PC.NURSE ---
Messaged regarding patients hydralizine order. The patients med rec can not be completed to morning as patient is not sure of home meds and pharmacy is currently closed. Hydralizine is listed as a home med despite being listed as having an adverse reaction of vomitting to the medication. The patient received hydralizine in ER and had 2 episodes of vomitting there as reported by ER nurse. said D/c PO hydralizine.
[2024-03-07 01:20] LABS: Basophils % 0.2 %; Eosinophils % 0.1 %; Hematocrit 53.2 % (37-53); Lymphocytes # 1.7 10^3/uL (0.8-4.8); Lymphocytes % 11.1 %; Mean Corpuscular HGB Conc 31.6 g/dL (30-55); Mean Corpuscular Volume 88.5 fl (82-101); Mean Platelet Volume 11.4 fL (7.4-10.4); Monocytes # 1.1 10^3/uL (0.2-0.9); Monocytes % 7.2 %; Neutrophils # 12.15 10^3/uL (1.8-7.7); Neutrophils % 80.8 %; Nucleated Red Blood Cells % 0 %; Platelet Count 199 10^3/cmm (157-399); Red Blood Count 6.01 10^6/uL (3.85-5.65); White Blood Count 15.02 10^3/uL (3.29-11.43)
[2024-03-07 01:41] LABS: Anion Gap 28.2 (5-19); Blood Urea Nitrogen 22 mg/dL (8-23); Carbon Dioxide 21 mmol/L (22-29); Chloride 96 mmol/L (98-107); Creatinine Clr Calc Pharmacy 57.7103; Glucose 198 mg/dL (65-115); Magnesium 1.8 mg/dL (1.7-2.3); Osmolality Calculated 301 mOsm/kg (285-295); Phosphorus 5.2 mg/dL (2.5-4.5); Potassium 4.2 mmol/L (3.5-5.1); Sodium 141 mmol/L (136-145)
[2024-03-07 01:45] LABS: Vitamin B12 346 pg/mL (232-1245)
--- NOTE | 2024-03-07 03:46 | ECG_ITS ---
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
--- NOTE | 2024-03-07 06:00 | USCV_ITS ---
Guillaume Giles Age: 74 Gender: M : 1950 Exam Date: 03/07/2024 16:01 Ordering Phys: Nik Douglas MD Technologist: CT Exam Location: [facility] [place] Indication: BP: / HR: 59 Rhythm: Atrial fibrillation Technical Quality: Adequate MEASUREMENTS (Male / Female) Normal Values 2D ECHO LVOT Diameter 2.1 cm LV Ejection Fraction MOD 4C 34.3 % LV Ejection Fraction MOD 2C 38.5 % LV Ejection Fraction 2C AL 38.9 % LA Diameter 4.9 cm RA Systolic Volume 4C AL 154.6 ml RA Systolic Volume 4C MOD 139.9 ml LA Sys Volume AL 138.2 cm cubed LA Sys Volume Index AL 49.8 cm cubed/m squared Aorta at Sinotubular Diameter 2.9 cm IVC Diameter 2.1 cm M-MODE LA Ao Ratio MM 1.9 AV Cusp Separation MM 2.0 cm DOPPLER AV Peak Velocity 111.0 cm/s LVOT Peak Velocity 93.0 cm/s AV Area Cont Eq vti 3.0 cm squared AV Area Cont Eq pk 2.9 cm squared MV Peak Velocity 101.0 cm/s MV Area PHT 3.5 cm squared Mitral E to A Ratio 24.3 TV Peak E Velocity 69.0 cm/s PV Peak Velocity 135.0 cm/s FINDINGS Left Ventricle Diffuse hypokinesia left ventricle with an ejection fraction of 38 %. Normal LV size Right Ventricle The right ventricle is normal in size and function. Right Atrium Mildly increased right atrial size. Left Atrium Mildly increased left atrial size. Mitral Valve No gross abnormalities noted Aortic Valve No gross abnormalities no Tricuspid Valve No gross abnormalities noted Pulmonic Valve No gross abnormalities noted Pericardium Small echo-free space anterior posteriorly Aorta Normal aortic annulus size. IVC Inferior vena cava not visualized. CONCLUSIONS Diffuse hypokinesia left ventricle with an ejection fraction of 38 %. Normal LV size. Mild biatrial enlargement Small pericardial effusion No significant valvular lesions No intracardiac masses Compared to the study from 04/01/2023, there seems to be a significant drop in the LV ejection fraction Dr Refugio Kraus MD [facility] (Electronically Signed) Final Date: 08 March 2024 14:12 S
--- NOTE | 2024-03-07 06:49 | PC.NURSE ---
Messaged regarding patient with elevated BP. ordered to give home meds early. Nurse unable to pull metoprolol early, one time order entered and will be given once verified by pharmacy.
[2024-03-07 06:56] LABS: Glucose Point of Care 205 mg/dL (70-110)
[2024-03-07] MEDS: metoprolol tartrate 25 mg Tablet 12.5 MG PO ×2 (07:35→21:28)
[2024-03-07] MEDS: magnesium oxide 400 mg tablet PO (07:35)
[2024-03-07] MEDS: allopurinol 300 mg Tablet PO (07:36)
[2024-03-07] MEDS: finasteride 5 mg Tablet PO (07:36)
[2024-03-07] MEDS: potassium chloride ER 20 mEq Tablet PO (07:36)
[2024-03-07] MEDS: apixaban 5 mg Tablet PO ×2 (08:39→21:29)
[2024-03-07] MEDS: insulin lispro 100 unit/1 mL SUBCUT ×3 (08:39→22:04)
[2024-03-07] MEDS: FUROsemide 10 mg/mL SDV 10mL 60 MG IVP ×2 (08:39→21:29)
[2024-03-07] MEDS: oxyCODONE 5 mg IR Tab/Cap PO ×3 (08:53→22:04)
--- NOTE | 2024-03-07 10:07 | PC.CHAP ---
Pastoral Care Encounter/Spiritual Assessment Type of Contact [] Declined study director visit [] Patient/Family/Request visit [] Outpatient visit [] Follow-up visit [] Physician referral [] Code/Alert [x] Routine visit [] Staff referral [] Actively dying [x] Patient sleeping [] Family support [] [] Out of room [] Palliative care [] [] Receiving care in room [] Pre-surgical visit [] Trauma [] Long length of stay [] ICU visit [] Other: Relational/Emotional Strength [] Patient feels connected with others/family/visitors/staff [] Distress [] Loneliness/isolation [] Abandonment Spirituality of Patient [] Person of Christina [] Attends Orthodox of their Christina [] Believes in Prayer [] Reads Bible or Yarsanism materials [] There are Spiritual issues to be addressed Science Interpreter Interventions [x] Prayer [] Active listening [] Non-anxious presence [] Spiritual/emotional support [] Crisis/trauma care [] Spiritual counseling [] Bereavement support [] Provided bereavement packet [] Provided Bible/devotional materials [] Provided toy/stuffed animal, coloring book to patient or family member [] Provided Communion [] Anointing/[place] [] Salvation [] Completed spiritual assessment [] Other: Impact on Illness or Injury [] Angry [] Fearful [] Anxious [] Often cries [] Exhaustion [] Unable to work [] Unable to attend quaker [] Unable to walk/stand [] Unable to read [] Unable to drive [] Unable to eat/drink [] Unable to sleep [] Unable to be with family [] Patient intubated [] Other: Summary Time spent with patient
--- NOTE | 2024-03-07 10:21 | PC.SOCIAL ---
IMM Update Pg. 2 of IMM updated. Initialed, dated, and timed. Copy provided at bedside.
[2024-03-07 12:08] LABS: Glucose Point of Care 139 mg/dL (70-110)
[2024-03-07] MEDS: nystatin powder 15 gm Btl 1 APPLIC TOPICAL ×2 (13:15→21:29)
--- NOTE | 2024-03-07 14:24 | P.PN_ITS ---
Subjective 2 Subjective: seen today no acute events overnight resting comfortably in bed Vitals/I&O/Wt Last Vital Signs Temp 98.0 F 03/07/24 11:43 Pulse 59 L 03/07/24 11:43 Resp 18 03/07/24 13:14 BP 177/74 03/07/24 11:43 Pulse Ox 96 03/07/24 13:14 O2 Del Method Room Air 03/07/24 11:43 03/06/24 03/07/24 03/07/24 22:59 06:59 14:59 Intake Total 300 / 300 354 / 354 Output Total 1200 / 1200 1100 / 1100 Balance -900 / -900 -746 / -746 Weight last 48 hrs Weight 135.08 kg Weight 135.851 kg Weight 136.078 kg Physical Exam 2 Narrative: Patient is awake and alert Anasarca Lower extremity venous's dermatitis Pressure ulcers around sacral area present on admission Pressure ulcer on toes as well Venous's dermatitis with anasarca 3+ edema Nonfocal neuroexam Distended nontender abdomen S1, S2 variable Hemodynamically stable Currently on room air Hypertensive Data 03/07/24 00:53 03/07/24 00:53 A&P Assessment and plan (1) Hypertension: Qualifiers: Hypertension type: other secondary hypertension Qualified Code(s): I 15.8 - Other secondary hypertension (2) Congestive heart failure: Qualifiers: Heart failure chronicity: acute on chronic Heart failure type: d iastolic Qualified Code(s): I50.33 - Acute on chronic diastolic (congestive) heart failure (3) Presence of permanent cardiac pacemaker: (4) Carotid occlusion, bilateral: (5) Atrial fibrillation: (6) Diarrhea: (7) Diabetic peripheral neuropathy associated with type 2 diabetes mellitus: (8) Intention tremor: (9) History of stroke: (10) Foot and toe(s), blister, without mention of infection: (11) Difficulty in walking: (12) Bilateral edema of lower extremity: (13) Generalized weakness: Plan Acute diastolic CHF exacerbation Worsening of anasarca Dietary indiscretion I will start patient on IV diuretics Unstable angina: Patient is stating that he gets chest pain on and off Which would last few minutes it would appear at rest Stress test in March this year was negative for any ischemic changes Carotid disease less than 50% stenosis Peripheral ulcerative disease, Doppler in the ER were done consistent with moderate peripheral arterial disease Patient also has diabetic peripheral neuropathy I will also request B12 He is not able to walk because of edema, stasis dermatitis and neuropathy Will request PT eval in the morning Patient seems to have very poor insight to his multiple comorbid conditions, he may benefit from inpatient cardiology consultation instead of outpatient Chronic A-fib on anticoagulation status post pacemaker Follows up with Dr. Kraus Chronic kidney disease creatinine at baseline Insulin-dependent diabetic: I will reduce the dose of Lantus keep him on sliding scale with consistent carb diet Patient follows up with Dr. Farmer for his diabetic foot ulcer He has bilateral pes planus He is at risk of further injuries Patient was advised not to walk barefoot Patient seems to have very unkept appearance, questionable hygiene Full code Patient does not have any medical DPOA wanting social service consult to arrange that Cardiac/consistent carb diet DVT prophylaxis covered with Eliquis home regimen 03/07/2024 - seen today continue mgmt as per HnP recheck labs today. home medication list needs to be confirmed. Attestations 2 Medical Necessity Statement*: More than 2 midnights anticipated Diagnoses Other secondary hypertension I15.8 Hypertension type: other secondary hypertension Acute on chronic diastolic congestive heart failure I50.33 Heart failure chronicity: acute on chronic Heart failure type: diastolic Presence of permanent cardiac pacemaker Z95.0 Carotid occlusion, bilateral I65.23 Longstanding persistent atrial fibrillation I48.91 Diarrhea R19.7 Diabetic peripheral neuropathy associated with type 2 diabetes mellitus E11.42 Intention tremor G25.2 History of stroke Z86.73 Foot and toe(s), blister, without mention of infection Difficulty in walking R26.2 Bilateral edema of lower extremity R60.0 Generalized weakness R53.1
[2024-03-07 15:26] LABS: Basophils % 0.3 %; Eosinophils # 0.1 10^3/uL (0.0-0.8); Eosinophils % 0.3 %; Hematocrit 50.9 % (37-53); Lymphocytes # 1.8 10^3/uL (0.8-4.8); Lymphocytes % 12.2 %; Mean Corpuscular HGB Conc 32.8 g/dL (30-55); Mean Corpuscular Hemoglobin 27.9 pg (27-33); Mean Corpuscular Volume 85.1 fl (82-101); Mean Platelet Volume 11.4 fL (7.4-10.4); Monocytes # 1.3 10^3/uL (0.2-0.9); Monocytes % 9.2 %; Neutrophils # 11.07 10^3/uL (1.8-7.7); Neutrophils % 77.4 %; Nucleated Red Blood Cells % 0 %; Platelet Count 205 10^3/cmm (157-399); Red Blood Count 5.98 10^6/uL (3.85-5.65); Red Cell Distribution Width 13.8 % (12.1-15.1); White Blood Count 14.31 10^3/uL (3.29-11.43)
[2024-03-07 16:10] LABS: Alanine Aminotransferase 6 U/L (0-41); Albumin Level 3.1 g/dL (3.5-5.2); Alkaline Phosphatase 99 U/L (40-130); Anion Gap 19.5 (5-19); Aspartate Amino Transferase 11 U/L (0-40); Blood Urea Nitrogen 23 mg/dL (8-23); Calcium 8.6 mg/dL (8.5-10.5); Carbon Dioxide 24 mmol/L (22-29); Chloride 99 mmol/L (98-107); Creatinine Clr Calc Pharmacy 65.7558; Glucose 201 mg/dL (65-115); Osmolality Calculated 297 mOsm/kg (285-295); Potassium 3.5 mmol/L (3.5-5.1); Sodium 139 mmol/L (136-145); Total Bilirubin 0.6 mg/dL (0.15-1.2); Total Protein 6.1 g/dL (6.6-8.7)
[2024-03-07 17:31] LABS: Glucose Point of Care 171 mg/dL (70-110)
[2024-03-07 20:42] LABS: Glucose Point of Care 220 mg/dL (70-110)
[2024-03-07] MEDS: tamsulosin 0.4 mg Capsule PO (21:28)
[2024-03-07] MEDS: insulin glargine 100 units/1 mL 35 UNIT SUBCUT (22:04)
[2024-03-08] VITALS (9 sets, daily range): BP systolic 128–178; BP diastolic 64–79; PULSE 60–88; RESP 15–20; TEMP 36.4–37.9; O2SAT 91–99
[2024-03-08] MEDS: isosorbide mononitrate 20 mg Tablet PO ×3 (05:04→17:15)
[2024-03-08] MEDS: oxyCODONE 5 mg IR Tab/Cap PO ×2 (05:04→11:16)
[2024-03-08 06:58] LABS: Basophils % 0.2 %; Eosinophils % 0.1 %; Hematocrit 51.9 % (37-53); Lymphocytes # 1.6 10^3/uL (0.8-4.8); Lymphocytes % 9.4 %; Mean Corpuscular HGB Conc 32.4 g/dL (30-55); Mean Corpuscular Hemoglobin 27.5 pg (27-33); Mean Corpuscular Volume 85.1 fl (82-101); Mean Platelet Volume 11.6 fL (7.4-10.4); Monocytes # 1.4 10^3/uL (0.2-0.9); Monocytes % 8.2 %; Neutrophils # 14.16 10^3/uL (1.8-7.7); Neutrophils % 81.6 %; Nucleated Red Blood Cells % 0 %; Platelet Count 212 10^3/cmm (157-399); Red Cell Distribution Width 13.7 % (12.1-15.1); White Blood Count 17.35 10^3/uL (3.29-11.43)
[2024-03-08] MEDS: apixaban 5 mg Tablet PO ×2 (07:25→20:23)
[2024-03-08] MEDS: sennosides-docusate Tablet 1 TAB PO (07:25)
[2024-03-08] MEDS: allopurinol 300 mg Tablet PO (07:25)
[2024-03-08] MEDS: magnesium oxide 400 mg tablet PO (07:25)
[2024-03-08] MEDS: potassium chloride ER 20 mEq Tablet PO ×2 (07:25→13:07)
[2024-03-08] MEDS: FUROsemide 10 mg/mL SDV 10mL 60 MG IVP ×2 (07:25→20:25)
[2024-03-08] MEDS: finasteride 5 mg Tablet PO (07:25)
[2024-03-08] MEDS: nystatin powder 15 gm Btl 1 APPLIC TOPICAL (07:26)
[2024-03-08] MEDS: metoprolol tartrate 25 mg Tablet 50 MG PO ×2 (07:28→20:23)
[2024-03-08 08:19] LABS: Glucose Point of Care 162 mg/dL (70-110)
[2024-03-08] MEDS: insulin lispro 100 unit/1 mL SUBCUT ×4 (09:26→20:23)
[2024-03-08 10:40] LABS: Glucose Point of Care 230 mg/dL (70-110)
[2024-03-08 10:44] LABS: Anion Gap 17.3 (5-19); Blood Urea Nitrogen 22 mg/dL (8-23); Calcium 8.6 mg/dL (8.5-10.5); Carbon Dioxide 27 mmol/L (22-29); Chloride 98 mmol/L (98-107); Creatinine Clr Calc Pharmacy 70.7508; Glucose 255 mg/dL (65-115); Magnesium 1.8 mg/dL (1.7-2.3); Osmolality Calculated 300 mOsm/kg (285-295); Potassium 3.3 mmol/L (3.5-5.1); Sodium 139 mmol/L (136-145)
--- NOTE | 2024-03-08 10:47 | PC.CHAP ---
Pastoral Care Encounter/Spiritual Assessment Type of Contact [] Declined cable wirer visit [] Patient/Family/Request visit [] Outpatient visit [] Follow-up visit [] Physician referral [] Code/Alert [] Routine visit [] Staff referral [] Actively dying [] Patient sleeping [] Family support [] [] Out of room [] Palliative care [] [x] Receiving care in room [] Pre-surgical visit [] Trauma [] Long length of stay [] ICU visit [] Other: Relational/Emotional Strength [] Patient feels connected with others/family/visitors/staff [] Distress [] Loneliness/isolation [] Abandonment Spirituality of Patient [] Person of Christina [] Attends Mu-Ism of their Christina [] Believes in Prayer [] Reads Bible or Evangelical materials [] There are Spiritual issues to be addressed Right Of Way Buyer Interventions [] Prayer [] Active listening [] Non-anxious presence [] Spiritual/emotional support [] Crisis/trauma care [] Spiritual counseling [] Bereavement support [] Provided bereavement packet [] Provided Bible/devotional materials [] Provided toy/stuffed animal, coloring book to patient or family member [] Provided Communion [] Anointing/[place] [] Salvation [] Completed spiritual assessment [] Other: Impact on Illness or Injury [] Angry [] Fearful [] Anxious [] Often cries [] Exhaustion [] Unable to work [] Unable to attend congregational [] Unable to walk/stand [] Unable to read [] Unable to drive [] Unable to eat/drink [] Unable to sleep [] Unable to be with family [] Patient intubated [] Other: Summary Time spent with patient
--- NOTE | 2024-03-08 12:42 | P.PN_ITS ---
Subjective 2 Subjective: Seen this morning. Poor historian. States he has no friends. Will not be signing a DPOA and anybody's name. Creatinine 1.3 today. Discussed with him if he is depressed and he states he might be. Does not really engage in much conversation. He states his legs bother him. He cannot walk. Yesterday did not get out of bed to participate with therapy. Today as well when asked he states he does not want to get out of bed. Lying in bed. Appearing comfortable. On room air at this time. 4L negative since admission. Vitals/I&O/Wt Last Vital Signs Temp 97.6 F 03/08/24 11:15 Pulse 60 03/08/24 11:15 Resp 20 H 03/08/24 11:16 BP 128/72 03/08/24 11:15 Pulse Ox 94 03/08/24 11:15 O2 Del Method Room Air 03/08/24 11:15 03/07/24 03/08/24 03/08/24 22:59 06:59 14:59 Intake Total 474 / 828 240 / 1068 240 / 240 Output Total 600 / 1700 3000 / 4700 Balance -126 / -872 -2760 / -3632 240 / 240 Weight last 48 hrs Weight 134.853 kg Weight 135.08 kg Weight 135.851 kg Weight 136.078 kg Physical Exam 2 Narrative: Patient is awake and alert Anasarca Lower extremity venous's dermatitis, erythema present bilaterally., Improving compared to admission. Pressure ulcers around sacral area present on admission Pressure ulcer on toes as well Venous's dermatitis with anasarca 2+ edema Nonfocal neuroexam Distended nontender abdomen S1, S2 variable Hemodynamically stable Currently on room air Urinary Catheter Management: Santo: Cath Placed During This Visit: yes Reason for Continuing Indwelling Catheter: Accurate Measurement of Urinary Output in Critically Ill Patients Urinary Catheter Date of Insertion: 03/07/24 Urinary Catheter Time of Insertion: 22:00 Data 03/08/24 06:13 03/08/24 10:06 A&P Assessment and plan (1) Hypertension: Qualifiers: Hypertension type: other secondary hypertension Qualified Code(s): I 15.8 - Other secondary hypertension (2) Congestive heart failure: Qualifiers: Heart failure chronicity: acute on chronic Heart failure type: d iastolic Qualified Code(s): I50.33 - Acute on chronic diastolic (congestive) heart failure (3) Presence of permanent cardiac pacemaker: (4) Carotid occlusion, bilateral: (5) Atrial fibrillation: (6) Diarrhea: (7) Diabetic peripheral neuropathy associated with type 2 diabetes mellitus: (8) Intention tremor: (9) History of stroke: (10) Foot and toe(s), blister, without mention of infection: (11) Difficulty in walking: (12) Bilateral edema of lower extremity: (13) Generalized weakness: Plan Acute diastolic CHF exacerbation Worsening of anasarca Dietary indiscretion I will start patient on IV diuretics Unstable angina: Patient is stating that he gets chest pain on and off Which would last few minutes it would appear at rest Stress test in March this year was negative for any ischemic changes Carotid disease less than 50% stenosis Peripheral ulcerative disease, Doppler in the ER were done consistent with moderate peripheral arterial disease Patient also has diabetic peripheral neuropathy I will also request B12 He is not able to walk because of edema, stasis dermatitis and neuropathy Will request PT eval in the morning Patient seems to have very poor insight to his multiple comorbid conditions, he may benefit from inpatient cardiology consultation instead of outpatient Chronic A-fib on anticoagulation status post pacemaker Follows up with Dr. Kraus Chronic kidney disease creatinine at baseline Insulin-dependent diabetic: I will reduce the dose of Lantus keep him on sliding scale with consistent carb diet Patient follows up with Dr. Farmer for his diabetic foot ulcer He has bilateral pes planus He is at risk of further injuries Patient was advised not to walk barefoot Patient seems to have very unkept appearance, questionable hygiene Full code Patient does not have any medical DPOA wanting social service consult to arrange that Cardiac/consistent carb diet DVT prophylaxis covered with Eliquis home regimen 03/08/2024 - seen today Continue doxycycline 100 twice daily for lower extremity cellulitis. Patient 4 L negative since admission. Continue Lasix 60 IV twice daily ? Continue insulin, Lantus, sliding scale Discussed with patient regarding working with physical therapy. He does complain of neuropathy. Placed on gabapentin low-dose today. Will start patient on citalopram low-dose. Patient may need nursing facility at discharge. Check PT OT Attestations 2 Medical Necessity Statement*: More than 2 midnights anticipated Diagnoses Other secondary hypertension I15.8 Hypertension type: other secondary hypertension Acute on chronic diastolic congestive heart failure I50.33 Heart failure chronicity: acute on chronic Heart failure type: diastolic Presence of permanent cardiac pacemaker Z95.0 Carotid occlusion, bilateral I65.23 Longstanding persistent atrial fibrillation I48.91 Diarrhea R19.7 Diabetic peripheral neuropathy associated with type 2 diabetes mellitus E11.42 Intention tremor G25.2 History of stroke Z86.73 Foot and toe(s), blister, without mention of infection Difficulty in walking R26.2 Bilateral edema of lower extremity R60.0 Generalized weakness R53.1
[2024-03-08] MEDS: ampicillin-sulbactam 3 GM in sodium chloride 0.9% (plus) 50 ML IV ×2 (13:07→17:43)
[2024-03-08 16:47] LABS: Glucose Point of Care 160 mg/dL (70-110)
[2024-03-08] MEDS: doxycycline 100 mg Tablet PO (17:15)
[2024-03-08] MEDS: gabapentin 100 mg Capsule PO (17:15)
[2024-03-08 20:21] LABS: Glucose Point of Care 145 mg/dL (70-110)
[2024-03-08] MEDS: tamsulosin 0.4 mg Capsule PO (20:23)
[2024-03-08] MEDS: insulin glargine 100 units/1 mL 35 UNIT SUBCUT (20:25)
[2024-03-09] VITALS (9 sets, daily range): BP systolic 143–193; BP diastolic 64–81; PULSE 59–69; RESP 16–19; TEMP 36.2–37.9; O2SAT 90–93
[2024-03-09] MEDS: oxyCODONE 5 mg IR Tab/Cap PO ×2 (00:59→11:00)
[2024-03-09] MEDS: ampicillin-sulbactam 3 GM in sodium chloride 0.9% (plus) 50 ML IV ×4 (00:59→20:30)
[2024-03-09 06:05] LABS: Basophils % 0.2 %; Eosinophils % 0.1 %; Hematocrit 47.4 % (37-53); Lymphocytes % 11.9 %; Mean Corpuscular HGB Conc 32.7 g/dL (30-55); Mean Corpuscular Hemoglobin 28.1 pg (27-33); Mean Platelet Volume 10.9 fL (7.4-10.4); Monocytes # 1.3 10^3/uL (0.2-0.9); Monocytes % 7.9 %; Neutrophils # 13.11 10^3/uL (1.8-7.7); Neutrophils % 79.2 %; Nucleated Red Blood Cells % 0 %; Platelet Count 191 10^3/cmm (157-399); Red Blood Count 5.51 10^6/uL (3.85-5.65); Red Cell Distribution Width 13.7 % (12.1-15.1); White Blood Count 16.57 10^3/uL (3.29-11.43)
[2024-03-09 06:35] LABS: Glucose Point of Care 129 mg/dL (70-110)
[2024-03-09 06:41] LABS: Blood Urea Nitrogen 26 mg/dL (8-23); Calcium 8.6 mg/dL (8.5-10.5); Carbon Dioxide 28 mmol/L (22-29); Chloride 100 mmol/L (98-107); Creatinine Clr Calc Pharmacy 61.3174; Glucose 147 mg/dL (65-115); Magnesium 1.9 mg/dL (1.7-2.3); Osmolality Calculated 301 mOsm/kg (285-295); Sodium 142 mmol/L (136-145)
[2024-03-09] MEDS: potassium chloride ER 20 mEq Tablet 40 MEQ PO ×2 (08:58→21:46)
[2024-03-09] MEDS: doxycycline 100 mg Tablet PO ×2 (08:58→17:33)
[2024-03-09] MEDS: allopurinol 300 mg Tablet PO (08:58)
[2024-03-09] MEDS: gabapentin 100 mg Capsule PO ×2 (08:59→17:33)
[2024-03-09] MEDS: magnesium oxide 400 mg tablet PO (08:59)
[2024-03-09] MEDS: citalopram 20 mg Tablet PO (08:59)
[2024-03-09] MEDS: FUROsemide 10 mg/mL SDV 10mL 60 MG IVP ×2 (08:59→21:45)
[2024-03-09] MEDS: sennosides-docusate Tablet 1 TAB PO (08:59)
[2024-03-09] MEDS: finasteride 5 mg Tablet PO (08:59)
[2024-03-09] MEDS: metoprolol tartrate 25 mg Tablet 50 MG PO ×2 (09:06→21:46)
[2024-03-09] MEDS: isosorbide mononitrate 20 mg Tablet PO ×2 (09:07→17:33)
[2024-03-09] MEDS: nystatin powder 15 gm Btl 1 APPLIC TOPICAL ×2 (09:09→17:36)
[2024-03-09] MEDS: apixaban 5 mg Tablet PO ×2 (09:10→20:31)
[2024-03-09] MEDS: amlodipine 10 mg Tablet PO (09:18)
--- NOTE | 2024-03-09 09:35 | PC.CHAP ---
Pastoral Care Encounter/Spiritual Assessment Type of Contact [] Declined cardiology consultants visit [] Patient/Family/Request visit [] Outpatient visit [] Follow-up visit [] Physician referral [] Code/Alert [x] Routine visit [] Staff referral [] Actively dying [] Patient sleeping [] Family support [] [] Out of room [] Palliative care [] [] Receiving care in room [] Pre-surgical visit [] Trauma [] Long length of stay [] ICU visit [] Other: Relational/Emotional Strength [x] Patient feels connected with others/family/visitors/staff [] Distress [] Loneliness/isolation [] Abandonment Spirituality of Patient [x] Person of Christina [] Attends Taoist of their Christina [x] Believes in Prayer [] Reads Bible or Gnosticism materials [] There are Spiritual issues to be addressed [employer] Executive Interventions [x] Prayer [x] Active listening [xx] Non-anxious presence [x] Spiritual/emotional support [] Crisis/trauma care [] Spiritual counseling [] Bereavement support [] Provided bereavement packet [] Provided Bible/devotional materials [] Provided toy/stuffed animal, coloring book to patient or family member [] Provided Communion [] Anointing/[place] [] Salvation [x] Completed spiritual assessment [] Other: Impact on Illness or Injury [] Angry [] Fearful [] Anxious [] Often cries [] Exhaustion [] Unable to work [] Unable to attend presybeterian [] Unable to walk/stand [] Unable to read [] Unable to drive [] Unable to eat/drink [] Unable to sleep [] Unable to be with family [] Patient intubated [] Other: Summary Time spent with patient 5 min
[2024-03-09 11:37] LABS: Glucose Point of Care 191 mg/dL (70-110)
[2024-03-09] MEDS: insulin lispro 100 unit/1 mL SUBCUT ×3 (12:01→21:45)
--- NOTE | 2024-03-09 12:06 | PC.SOCIAL ---
IMM Update Pg. 2 of IMM updated. Initialed, dated, and timed, copy provided at bedside.
--- NOTE | 2024-03-09 13:02 | P.PN_ITS ---
Vitals/I&O/Wt Last Vital Signs Temp 98.2 F 03/09/24 11:46 Pulse 61 03/09/24 11:46 Resp 19 H 03/09/24 11:46 BP 159/64 03/09/24 11:46 Pulse Ox 90 03/09/24 11:46 O2 Del Method Room Air 03/09/24 11:46 03/08/24 03/09/24 03/09/24 22:59 06:59 14:59 Intake Total 50 / 340 100 / 440 480 / 480 Output Total 950 / 950 400 / 1350 Balance -900 / -610 -300 / -910 480 / 480 Weight last 48 hrs Weight 134.853 kg Weight 134.853 kg Physical Exam 2 Narrative: Patient is awake and alert, does not engage in much conversation is not very talkative. Answers some questions. Does not appear to be confused. Anasarca Lower extremity venous's dermatitis, erythema present bilaterally., Improving compared to admission. Pressure ulcers around sacral area present on admission Pressure ulcer on toes as well Venous's dermatitis with anasarca 2+ edema Nonfocal neuroexam Distended nontender abdomen S1, S2 variable Hemodynamically stable Currently on room air Urinary Catheter Management: Santo: Cath Placed During This Visit: yes Reason for Continuing Indwelling Catheter: Accurate Measurement of Urinary Output in Critically Ill Patients Urinary Catheter Date of Insertion: 03/07/24 Urinary Catheter Time of Insertion: 22:00 Data 03/09/24 05:37 03/09/24 05:37 A&P Assessment and plan (1) Hypertension: Qualifiers: Hypertension type: other secondary hypertension Qualified Code(s): I 15.8 - Other secondary hypertension (2) Congestive heart failure: Qualifiers: Heart failure chronicity: acute on chronic Heart failure type: d iastolic Qualified Code(s): I50.33 - Acute on chronic diastolic (congestive) heart failure (3) Presence of permanent cardiac pacemaker: (4) Carotid occlusion, bilateral: (5) Atrial fibrillation: (6) Diarrhea: (7) Diabetic peripheral neuropathy associated with type 2 diabetes mellitus: (8) Intention tremor: (9) History of stroke: (10) Foot and toe(s), blister, without mention of infection: (11) Difficulty in walking: (12) Bilateral edema of lower extremity: (13) Generalized weakness: Plan Acute diastolic CHF exacerbation Worsening of anasarca Dietary indiscretion I will start patient on IV diuretics Unstable angina: Patient is stating that he gets chest pain on and off Which would last few minutes it would appear at rest Stress test in March this year was negative for any ischemic changes Carotid disease less than 50% stenosis Peripheral ulcerative disease, Doppler in the ER were done consistent with moderate peripheral arterial disease Patient also has diabetic peripheral neuropathy I will also request B12 He is not able to walk because of edema, stasis dermatitis and neuropathy Will request PT eval in the morning Patient seems to have very poor insight to his multiple comorbid conditions, he may benefit from inpatient cardiology consultation instead of outpatient Chronic A-fib on anticoagulation status post pacemaker Follows up with Dr. Kraus Chronic kidney disease creatinine at baseline Insulin-dependent diabetic: I will reduce the dose of Lantus keep him on sliding scale with consistent carb diet Patient follows up with Dr. Farmer for his diabetic foot ulcer He has bilateral pes planus He is at risk of further injuries Patient was advised not to walk barefoot Patient seems to have very unkept appearance, questionable hygiene Full code Patient does not have any medical DPOA wanting social service consult to arrange that Cardiac/consistent carb diet DVT prophylaxis covered with Eliquis home regimen 03/09/2024 - seen today Continue doxycycline 100 twice daily for lower extremity cellulitis. Continue Unasyn. Patient 4 L negative since admission. Continue Lasix 60 IV twice daily ? Continue insulin, Lantus, sliding scale Discussed with patient regarding working with physical therapy. He does complain of neuropathy. Continue gabapentin 100 twice daily Continue escitalopram 20 mg daily Patient may need nursing facility at discharge. Check PT OT Hypokalemia, potassium 3.0. Replete today. Creatinine 1.5, improving. Check MRI brain to rule out stroke. Patient has been less talkative. Follows commands however appears demotivated. Nursing staff notes that they have taken care of him in the past and he has been different this admission. He has bilateral lower extremity weakness as he states. Unable to obtain much history from him at this time. Very poor historian. Will answer yes and no questions some and not all. Attestations 2 Medical Necessity Statement*: Rule out stroke today, continue to work with physical therapy, continue to diurese and treat for lower extremity cellulitis. Patient will need nursing facility at discharge. Diagnoses Other secondary hypertension I15.8 Hypertension type: other secondary hypertension Acute on chronic diastolic congestive heart failure I50.33 Heart failure chronicity: acute on chronic Heart failure type: diastolic Presence of permanent cardiac pacemaker Z95.0 Carotid occlusion, bilateral I65.23 Longstanding persistent atrial fibrillation I48.91 Diarrhea R19.7 Diabetic peripheral neuropathy associated with type 2 diabetes mellitus E11.42 Intention tremor G25.2 History of stroke Z86.73 Foot and toe(s), blister, without mention of infection Difficulty in walking R26.2 Bilateral edema of lower extremity R60.0 Generalized weakness R53.1
[2024-03-09 16:16] LABS: Glucose Point of Care 159 mg/dL (70-110)
[2024-03-09 20:17] LABS: Glucose Point of Care 208 mg/dL (70-110)
[2024-03-09] MEDS: tamsulosin 0.4 mg Capsule PO (20:31)
[2024-03-09] MEDS: insulin glargine 100 units/1 mL 35 UNIT SUBCUT (21:45)
--- NOTE | 2024-03-09 23:20 | USCV_ITS ---
Guillaume Giles Age: 74 Gender: M : 1950 Exam Date: 03/09/2024 23:45 Ordering Phys: Maricarmen Garcia MD Technologist: TATI Exam Location: [facility] Indication: r/o dvt HISTORY: patient is unresponsive in 277-2 PROCEDURES: Venous duplex imaging was performed in bilateral lower extremities. The following venous structures were evaluated: common femoral vein, profunda vein, proximal portion of the greater saphenous vein, superficial femoral vein, and the popliteal vein. In addition, the posterior tibial and peroneal veins were evaluated. FINDINGS: Normal 2-D Doppler and augmentation and compressibility throughout the lower extremity venous structures. Additional imaging through the proximal calf veins also reveals no thrombus. Limited evaluation of the greater saphenous vein is patent with no thrombus. CONCLUSIONS No DVT bilateral lower extremities. Dr. Iza Carroll DO (Electronically Signed) Final Date: 10 March 2024 07:38 S
[2024-03-10] VITALS (8 sets, daily range): BP systolic 138–185; BP diastolic 64–80; PULSE 57–62; RESP 15–20; TEMP 36.7–37.7; O2SAT 90–93
--- NOTE | 2024-03-10 00:01 | CTR_ITS ---
PROCEDURE INFORMATION: Exam: CT Lumbar Spine Without Contrast Exam date and time: 03/10/2024 4:51 AM Age: 74 years old Clinical indication: Numbness and weakness; Additional info: B/l le weakness TECHNIQUE: Imaging protocol: Computed tomography of the lumbar spine without contrast. Radiation optimization: All CT scans at this facility use at least one of these dose optimization techniques: automated exposure control; mA and/or kV adjustment per patient size (includes targeted exams where dose is matched to clinical indication); or iterative reconstruction. COMPARISON: CT lumbar spine wo con* [id number] 02/20/2023 3:03 PM RADIATION DOSE METRICS: Total DLP (mGy-cm): 1769.62 FINDINGS: Bones/joints: Degenerative changes. Heterogeneous appearance of the marrow space diffusely. Transitional lumbosacral anatomy no obvious. Multifocal posterior disc protrusions. Perhaps mild spinal canal narrowing at L4-L5 and L5-S1. Perhaps moderate to severe neural foraminal narrowing at L5-S1. Lungs: Basilar scarring/atelectasis. Vasculature: Atherosclerotic disease. Soft tissues: Unremarkable. Other findings: Mild demineralization. CT/CT lumbar spine wo con* [id number] IMPRESSION: 1. No acute findings. 2. Degenerative changes and incidental findings as above.
--- NOTE | 2024-03-10 00:01 | CTR_ITS ---
PROCEDURE INFORMATION: Exam: CT Head Without Contrast Exam date and time: 03/10/2024 4:46 AM Age: 74 years old Clinical indication: Cerebral degeneration and walking, difficulty and weakness, extremity; Bilateral; Patient HX: Known HX of stroke, new symptoms now; Additional info: R/O stroke TECHNIQUE: Imaging protocol: Computed tomography of the head without contrast. Radiation optimization: All CT scans at this facility use at least one of these dose optimization techniques: automated exposure control; mA and/or kV adjustment per patient size (includes targeted exams where dose is matched to clinical indication); or iterative reconstruction. COMPARISON: CT head wo con* [id number] 04/19/2023 9:40 AM RADIATION DOSE METRICS: Total DLP (mGy-cm): 1217 FINDINGS: Brain: Global parenchymal atrophy. Moderate intracranial calcified atherosclerotic disease. Cerebral ventricles: Ex vacuo dilation of the ventricles and cerebral spinal fluid spaces. Pituitary gland and sella: Partially empty sella, of likely little clinical significance given isolated finding. Paranasal sinuses: Visualized sinuses are unremarkable. No fluid levels. Mastoid air cells: Visualized mastoid air cells are well aerated. Bones: Stable trabeculated/lytic lesion of the right parietal skull, likely hemangioma. Soft tissues: Unremarkable. CT/CT head wo con* [id number] IMPRESSION: No acute intracranial findings.
[2024-03-10] MEDS: ampicillin-sulbactam 3 GM in sodium chloride 0.9% (plus) 50 ML IV ×4 (01:45→21:57)
[2024-03-10 01:59] LABS: Basophils % 0.1 %; Hematocrit 48.5 % (37-53); Lymphocytes # 1.3 10^3/uL (0.8-4.8); Lymphocytes % 9.4 %; Mean Corpuscular HGB Conc 32.4 g/dL (30-55); Mean Corpuscular Hemoglobin 28.2 pg (27-33); Mean Corpuscular Volume 87.2 fl (82-101); Mean Platelet Volume 10.6 fL (7.4-10.4); Monocytes # 1.2 10^3/uL (0.2-0.9); Monocytes % 8.7 %; Neutrophils # 11.42 10^3/uL (1.8-7.7); Nucleated Red Blood Cells % 0 %; Platelet Count 206 10^3/cmm (157-399); Red Blood Count 5.56 10^6/uL (3.85-5.65); Red Cell Distribution Width 13.6 % (12.1-15.1); White Blood Count 14.09 10^3/uL (3.29-11.43)
[2024-03-10 02:27] LABS: Anion Gap 16.3 (5-19); Blood Urea Nitrogen 33 mg/dL (8-23); Calcium 8.7 mg/dL (8.5-10.5); Carbon Dioxide 31 mmol/L (22-29); Chloride 98 mmol/L (98-107); Creatinine Clr Calc Pharmacy 61.3174; Glucose 166 mg/dL (65-115); Osmolality Calculated 305 mOsm/kg (285-295); Potassium 3.3 mmol/L (3.5-5.1); Sodium 142 mmol/L (136-145)
[2024-03-10 06:15] LABS: Glucose Point of Care 162 mg/dL (70-110)
[2024-03-10] MEDS: magnesium oxide 400 mg tablet PO (09:23)
[2024-03-10] MEDS: sennosides-docusate Tablet 1 TAB PO (09:24)
[2024-03-10] MEDS: amlodipine 10 mg Tablet PO (09:24)
[2024-03-10] MEDS: gabapentin 100 mg Capsule PO ×2 (09:24→18:06)
[2024-03-10] MEDS: finasteride 5 mg Tablet PO (09:24)
[2024-03-10] MEDS: allopurinol 300 mg Tablet PO (09:24)
[2024-03-10] MEDS: potassium chloride ER 20 mEq Tablet PO (09:24)
[2024-03-10] MEDS: doxycycline 100 mg Tablet PO ×2 (09:24→18:06)
[2024-03-10] MEDS: citalopram 20 mg Tablet PO (09:24)
[2024-03-10] MEDS: FUROsemide 10 mg/mL SDV 10mL 60 MG IVP ×2 (09:25→20:28)
[2024-03-10] MEDS: nystatin powder 15 gm Btl 1 APPLIC TOPICAL ×2 (09:26→18:06)
[2024-03-10] MEDS: apixaban 5 mg Tablet PO ×2 (09:43→20:28)
[2024-03-10] MEDS: isosorbide mononitrate 20 mg Tablet PO ×2 (09:43→18:06)
[2024-03-10] MEDS: metoprolol tartrate 25 mg Tablet 50 MG PO ×2 (09:43→20:29)
[2024-03-10] MEDS: insulin lispro 100 unit/1 mL SUBCUT ×4 (09:44→20:41)
[2024-03-10 11:24] LABS: Glucose Point of Care 250 mg/dL (70-110)
--- NOTE | 2024-03-10 16:14 | P.PN_ITS ---
Subjective 2 Subjective: Seen today patient sitting up in recliner. Able to make his needs known. Denies any chest pain shortness of breath. Discussed with him regarding his bilateral lower extremity and he states he feels the same as before. MRI cannot be performed secondary to pacemaker. CT head did rule out a stroke. He is able to move all 4 extremities. Erythema on legs is improving. Does have chronic venous stasis. Creatinine stable. Potassium 3.3. Vitals/I&O/Wt Last Vital Signs Temp 98.2 F 03/10/24 11:43 Pulse 57 L 03/10/24 11:43 Resp 20 H 03/10/24 11:43 BP 182/80 03/10/24 11:43 Pulse Ox 90 03/10/24 11:43 O2 Del Method Room Air 03/10/24 11:43 03/10/24 03/10/24 03/10/24 06:59 14:59 22:59 Intake Total 290 / 1110 650 / 650 Output Total 300 / 2100 Balance -10 / -990 650 / 650 Weight last 48 hrs Weight 131.814 kg Weight 134.853 kg Physical Exam 2 Narrative: Patient is awake and alert, does not engage in much conversation is not very talkative. Answers some questions. Does not appear to be confused. Anasarca Lower extremity venous's dermatitis, erythema present bilaterally., Improving compared to admission. Pressure ulcers around sacral area present on admission Pressure ulcer on toes as well Venous's dermatitis with anasarca 2+ edema Nonfocal neuroexam Distended nontender abdomen S1, S2 variable Hemodynamically stable Currently on room air Not much change in physical exam since admission. Urinary Catheter Management: Santo: Cath Placed During This Visit: yes Reason for Continuing Indwelling Catheter: Other Urinary Catheter Date of Insertion: 03/07/24 Urinary Catheter Time of Insertion: 22:00 Data 03/10/24 01:45 03/11/24 05:19 A&P Assessment and plan (1) Hypertension: Qualifiers: Hypertension type: other secondary hypertension Qualified Code(s): I 15.8 - Other secondary hypertension (2) Congestive heart failure: Qualifiers: Heart failure chronicity: acute on chronic Heart failure type: d iastolic Qualified Code(s): I50.33 - Acute on chronic diastolic (congestive) heart failure (3) Presence of permanent cardiac pacemaker: (4) Carotid occlusion, bilateral: (5) Atrial fibrillation: (6) Diarrhea: (7) Diabetic peripheral neuropathy associated with type 2 diabetes mellitus: (8) Intention tremor: (9) History of stroke: (10) Foot and toe(s), blister, without mention of infection: (11) Difficulty in walking: (12) Bilateral edema of lower extremity: (13) Generalized weakness: Plan Acute diastolic CHF exacerbation Worsening of anasarca Dietary indiscretion I will start patient on IV diuretics Unstable angina: Patient is stating that he gets chest pain on and off Which would last few minutes it would appear at rest Stress test in March this year was negative for any ischemic changes Carotid disease less than 50% stenosis Peripheral ulcerative disease, Doppler in the ER were done consistent with moderate peripheral arterial disease Patient also has diabetic peripheral neuropathy I will also request B12 He is not able to walk because of edema, stasis dermatitis and neuropathy Will request PT eval in the morning Patient seems to have very poor insight to his multiple comorbid conditions, he may benefit from inpatient cardiology consultation instead of outpatient Chronic A-fib on anticoagulation status post pacemaker Follows up with Dr. Kraus Chronic kidney disease creatinine at baseline Insulin-dependent diabetic: I will reduce the dose of Lantus keep him on sliding scale with consistent carb diet Patient follows up with Dr. Farmer for his diabetic foot ulcer He has bilateral pes planus He is at risk of further injuries Patient was advised not to walk barefoot Patient seems to have very unkept appearance, questionable hygiene Full code Patient does not have any medical DPOA wanting social service consult to arrange that Cardiac/consistent carb diet DVT prophylaxis covered with Eliquis home regimen 03/10/2024 - seen today Continue doxycycline 100 twice daily for lower extremity cellulitis. Continue Unasyn. Patient 5 L negative since admission. Continue Lasix 60 IV twice daily,transition to oral tomorrow ? Continue insulin, Lantus, sliding scale Discussed with patient regarding working with physical therapy. He does complain of neuropathy. Continue gabapentin 100 twice daily Continue escitalopram 20 mg daily Patient may need nursing facility at discharge. Check PT OT Hypokalemia, Replete today. Creatinine 1.5, improving.continue to check electrolyes ct head r/o stroke, mri cant be performed due to pacemaker plan for dc to nursing facility in next 24-48 hours Attestations 2 Medical Necessity Statement*: plan for dc in next 24-48 hours Diagnoses Other secondary hypertension I15.8 Hypertension type: other secondary hypertension Acute on chronic diastolic congestive heart failure I50.33 Heart failure chronicity: acute on chronic Heart failure type: diastolic Presence of permanent cardiac pacemaker Z95.0 Carotid occlusion, bilateral I65.23 Longstanding persistent atrial fibrillation I48.91 Diarrhea R19.7 Diabetic peripheral neuropathy associated with type 2 diabetes mellitus E11.42 Intention tremor G25.2 History of stroke Z86.73 Foot and toe(s), blister, without mention of infection Difficulty in walking R26.2 Bilateral edema of lower extremity R60.0 Generalized weakness R53.1
[2024-03-10 16:23] LABS: Glucose Point of Care 250 mg/dL (70-110)
[2024-03-10 20:13] LABS: Glucose Point of Care 295 mg/dL (70-110)
[2024-03-10] MEDS: tamsulosin 0.4 mg Capsule PO (20:28)
[2024-03-10] MEDS: insulin glargine 100 units/1 mL 35 UNIT SUBCUT (20:41)
[2024-03-11] VITALS (7 sets, daily range): BP systolic 127–182; BP diastolic 65–83; PULSE 60–92; RESP 16–18; TEMP 36.4–36.8; O2SAT 93–95
[2024-03-11] MEDS: ampicillin-sulbactam 3 GM in sodium chloride 0.9% (plus) 50 ML IV ×2 (03:49→11:19)
[2024-03-11 05:59] LABS: Alanine Aminotransferase 22 U/L (0-41); Albumin Level 2.6 g/dL (3.5-5.2); Alkaline Phosphatase 101 U/L (40-130); Anion Gap 14.4 (5-19); Aspartate Amino Transferase 38 U/L (0-40); Blood Urea Nitrogen 39 mg/dL (8-23); Calcium 8.6 mg/dL (8.5-10.5); Carbon Dioxide 33 mmol/L (22-29); Chloride 95 mmol/L (98-107); Creatinine Clr Calc Pharmacy 60.5858; Globulin 3.3 g/dL (1.3-4.6); Glucose 213 mg/dL (65-115); Osmolality Calculated 302 mOsm/kg (285-295); Potassium 4.4 mmol/L (3.5-5.1); Sodium 138 mmol/L (136-145); Total Bilirubin 0.4 mg/dL (0.15-1.2); Total Protein 5.9 g/dL (6.6-8.7)
[2024-03-11 06:26] LABS: Glucose Point of Care 197 mg/dL (70-110)
--- NOTE | 2024-03-11 09:25 | PM.DCS ---
Discharge Providers Date of Admission: 03/06/24 20:52 Date of Discharge: March 11, 2024 Attending Provider at Admission: Nik Douglas MD Attending Provider at Discharge: Maricarmen Garcia MD Primary Care Provider: Jessica Bui MD Diagnoses at Discharge Discharge Diagnosis (1) Hypertension: Status: Acute Qualifiers: Hypertension type: other secondary hypertension Qualified Code(s): I15.8 - Other secondary hypertension (2) Congestive heart failure: Status: Acute Qualifiers: Heart failure chronicity: acute on chronic Heart failure type: diastolic Qualified Code(s): I50.33 - Acute on chronic diastolic (congestive) heart failure (3) Presence of permanent cardiac pacemaker: Status: Acute (4) Carotid occlusion, bilateral: Status: Acute Permanent problem details: Less than 50% bilateral (5) Atrial fibrillation: Status: Acute Permanent problem details: Chronic, history of bradycardia with beta blockers, on eliquis (6) Diarrhea: Status: Resolved (7) Diabetic peripheral neuropathy associated with type 2 diabetes mellitus: Status: Acute (8) Intention tremor: Status: Acute (9) History of stroke: Status: Acute (10) Foot and toe(s), blister, without mention of infection: Status: Acute (11) Difficulty in walking: Status: Acute (12) Bilateral edema of lower extremity: Status: Acute (13) Generalized weakness: Status: Resolved Reason for Visit Reason for Visit: SWOLLEN LEGS Hospital Course Hospital Course Admitted for worsening of anasarca, questionable chest pain. Did have sacral ulcers present on admission. Was diuresed during hospital stay and placed on doxycycline and Unasyn for lower extremity cellulitis. There was improvement in that by time of discharge. Complained of bilateral leg weakness for which CT lumbar spine was pursued and showed degenerative disc disease. Patient is deconditioned and at baseline does not walk very much. Discussed with him regarding stepped taking up with DPOA however he states he is not interested at this time. He reported that he has no family however a nephew came to the hospital on day of discharge. Patient states he would like to donate his body to [place] and [facility] should get all his belongings. Regarding CODE STATUS that was discussed with him extensively and he answered stating it does not matter. I told him we would keep him full code if he is undecided. Discussed with him. Situations where if there was no family or friends to make decisions then to physicians would or the state would in case he was unable to advocate for himself. He stated he did not care about that at this time. CT head ruled out a stroke. MRI cannot be performed due to pacemaker. Patient less talkative compared to before, possible depression. He is on duloxetine at home. I encouraged him to follow-up with his primary care doctor. He will be discharged with Augmentin and doxycycline. Home Lasix dose was adjusted at discharge as well. [facility] to [facility]. Physical Exam Narrative: Patient is awake and alert, does not engage in much conversation is not very talkative. Answers some questions. Does not appear to be confused. Anasarca Lower extremity venous's dermatitis, erythema has improved. Pressure ulcers around sacral area present on admission Pressure ulcer on toes as well Venous's dermatitis with anasarca 2+ edema, nonpitting. Nonfocal neuroexam Distended nontender abdomen S1, S2 variable Hemodynamically stable Currently on room air Not much change in physical exam since admission. Except the erythema has improved. Urinary Catheter Management: Santo: Cath Placed During This Visit: yes Reason for Continuing Indwelling Catheter: Acute Urinary Retention or Obstruction Urinary Catheter Date of Insertion: 03/07/24 Urinary Catheter Time of Insertion: 22:00 Discharge Data Studies Completed and Pending Completed Studies During Hospitalization Category Date Time Status CT abdomen pelvis wo con [id number] Stat Cat Scan 03/06/24 21:[address] head wo con* [id number] Routine Cat Scan 03/10/24 00:[address] lumbar spine wo con* [id number] Routine Cat Scan 03/10/24 00:01 Completed XR chest 1V portable [id number] Stat Exams 03/06/24 17:22 [place] [id number] Routine Ultrasound 03/09/24 23:20 Completed CV. echo complete* [id number] Routine Ultrasound 03/07/24 06:00 Completed US arterial duplex lower extremity bilat [CV arterial Ultrasound 03/06/24 17:22 [place] [id number]] Stat Pending at discharge Category Date Time Status SARS Covid-2 Antigen Routine Lab 03/11/24 08:19 Uncollected Radiology Impressions Chest X-Ray 03/06/24 17:22 IMPRESSION: 1. Left basilar opacities may represent atelectasis versus infiltrate. 2. Small left pleural effusion. Duplex Scan Lower Extremity Artery 03/06/24 17:22 IMPRESSION: 1. Reduced ankle-brachial indices bilaterally, 0.6 on the right and 0.5 on the left, compatible with at least moderate peripheral arterial disease. 2. Elevated peak systolic velocity in the left superficial femoral artery. 3. No occlusion within the arteries of the lower extremities bilaterally. Abdomen/Pelvis CT 03/06/24 21:04 IMPRESSION: 1. No acute findings within the abdomen/pelvis. 2. Similar 4.3 cm complex hypodense structure along the inferior pole of the right kidney. If not performed previously, MRI abdomen without and with contrast may be of benefit to exclude neoplasm. 3. Additional ancillary findings as above are similar to prior. COMMENTS: Consistent with the [employer]'s Incidental Findings Committee white paper (J Am Narayan Radiol 2017): For any incidental adrenal lesion greater than or equal to 1 cm but less than or equal to 4 cm classified in this report as benign, likely benign, or containing fat (including classification as an adenoma or myelolipoma), no follow-up imaging is recommended per consensus recommendations based on imaging criteria. Further lab evaluation could be pursued if warranted based on clinical findings. Head CT 03/10/24 00:01 IMPRESSION: No acute intracranial findings. Lumbar Spine CT 03/10/24 00:01 IMPRESSION: 1. No acute findings. 2. Degenerative changes and incidental findings as above. Laboratory Results WBC 14.09 10^3/uL (3.29-11.43) H 03/10/24 01:45 RBC 5.56 10^6/uL (3.85-5.65) 03/10/24 01:45 Hgb 15.70 g/dL (11.27-16.99) 03/10/24 01:45 Hct 48.5 % (37-53) 03/10/24 01:45 MCV 87.2 fl (82-101) 03/10/24 01:45 MCH 28.2 pg (27-33) 03/10/24 01:45 MCHC 32.4 g/dL (30-55) 03/10/24 01:45 RDW 13.6 % (12.1-15.1) 03/10/24 01:45 Plt Count 206 10^3/cmm (157-399) 03/10/24 01:45 MPV 10.6 fL (7.4-10.4) H 03/10/24 01:45 Neut % (Auto) 81.0 % 03/10/24 01:45 Lymph % (Auto) 9.4 % 03/10/24 01:45 [place] % (Auto) 8.7 % 03/10/24 01:45 Eos % (Auto) 0.0 % 03/10/24 01:45 Baso % (Auto) 0.1 % 03/10/24 01:45 Neut # (Auto) 11.42 10^3/uL (1.8-7.7) H 03/10/24 01:45 Lymph # (Auto) 1.3 10^3/uL (0.8-4.8) 03/10/24 01:45 [place] # (Auto) 1.2 10^3/uL (0.2-0.9) H 03/10/24 01:45 Eos # (Auto) 0.0 10^3/uL (0.0-0.8) 03/10/24 01:45 Baso # (Auto) 0.0 10^3/uL (0.0-0.1) 03/10/24 01:45 Nucleated RBC % (auto) 0 % 03/10/24 01:45 Nucleated RBCs # 0.0 /100WBC 03/10/24 01:45 PT 15.00 SECONDS (12.1-14.9) H 03/06/24 17:48 INR 1.14 (0.8-1.2) 03/06/24 17:48 Sodium 138 mmol/L (136-145) 03/11/24 05:19 Potassium 4.4 mmol/L (3.5-5.1) 03/11/24 05:19 Chloride 95 mmol/L (98-107) L 03/11/24 05:19 Carbon Dioxide 33 mmol/L (22-29) H 03/11/24 05:19 Anion Gap 14.4 (5-19) 03/11/24 05:19 BUN 39 mg/dL (8-23) H 03/11/24 05:19 Creatinine 1.5 mg/dL (0.7-1.2) H 03/11/24 05:19 GFR Calculation Not Reportable 03/11/24 05:19 Glucose 213 mg/dL (65-115) H 03/11/24 05:19 POC Glucose 197 mg/dL (70-110) H 03/11/24 06:15 Calculated Osmolality 302 mOsm/kg (285-295) H 03/11/24 05:19 Calcium 8.6 mg/dL (8.5-10.5) 03/11/24 05:19 Phosphorus 5.2 mg/dL (2.5-4.5) H 03/07/24 00:53 Magnesium 2.0 mg/dL (1.7-2.3) 03/10/24 01:45 Total Bilirubin 0.4 mg/dL (0.15-1.2) 03/11/24 05:19 AST 38 U/L (0-40) 03/11/24 05:19 ALT 22 U/L (0-41) 03/11/24 05:19 Alkaline Phosphatase 101 U/L (40-130) 03/11/24 05:19 Troponin T Baseline 67 ng/L (0-15) H 03/06/24 17:48 Troponin T 120 Minute 70.77 ng/L (0-15) H 03/06/24 21:53 Delta Troponin T 3.77 ABS# (0-10) 03/06/24 21:53 Troponin T Hi Sens 6Hr 68.70 ng/L (0-15) H 03/07/24 00:53 Troponin T Hi Sens 6Hr Delta 1.70 ng/L (0-12) 03/07/24 00:53 NT-Pro-B Natriuret Pep 3729 pg/mL (0-450) H 03/06/24 17:48 Total Protein 5.9 g/dL (6.6-8.7) L 03/11/24 05:19 Albumin 2.6 g/dL (3.5-5.2) L 03/11/24 05:19 Globulin 3.3 g/dL (1.3-4.6) 03/11/24 05:19 Vitamin B12 346 pg/mL (232-1245) 03/06/24 17:48 Vitals Last Vital Signs Temp 98.2 F 03/11/24 07:58 Pulse 60 03/11/24 07:58 Resp 17 03/11/24 07:58 BP 148/81 03/11/24 07:58 Pulse Ox 93 03/11/24 07:58 O2 Del Method Room Air 12/13/24 07:58 Discharge Plan Discharge Patient Disposition: Home Condition: Stable Prescriptions: New isosorbide mononitrate 20 mg Tablet 20 mg PO BID Qty: 60 0RF sennosides-docusate sodium [Stool Softener-Laxative] 8.6-50 mg Tablet 1 tab PO DAILY Qty: 30 0RF doxycycline monohydrate 100 mg Tablet 100 mg PO BID 3 Days Qty: 6 0RF amlodipine 10 mg Tablet 10 mg PO DAILY Qty: 30 0RF amoxicillin-pot clavulanate 875-125 mg tablet 1 tab PO BID 3 Days Qty: 6 0RF furosemide [Lasix] 20 mg tablet See Rx Instructions .ROUTE .COMPLEX Qty: 90 0RF Rx Instructions: 60 mg in am 40 mg in pm Continued (DME) [place] afo to right See Rx Instructions .Route .MEDSUPPLY Qty: 1 0RF Rx Instructions: As directed by [employer] (DME) Diabetic Shoes with 3 pairs of inserts See Rx Instructions .ROUTE .MEDSUPPLY Qty: 1 0RF Rx Instructions: As directed by [employer] insulin aspart U-100 [Novolog U-100 Insulin aspart] 100 unit/mL solution 12 unit SUBCUT .WITH MEALS Qty: 10 1RF Rx Instructions: TID (DME) Silver Alginate Dressing and 2 Layer Compression System Wraps See Rx Instructions .Route .MEDSUPPLY Qty: 1 0RF Rx Instructions: Dressing supplies needed for 30 days with 3 Refills (DME) 2 Layer Compression Bandage System- Coflex TLC LITE Calamine with Indicators 4 in x6 yard/4 in by 7 yard See Rx Instructions .Route .MEDSUPPLY Qty: 1 0RF Rx Instructions: 32 boxes needed for 3 months Compression 20 to 30 mmHg- Ref. # [id number] thiamine HCl (vitamin B1) 100 mg Tablet 100 mg PO DAILY@08 allopurinol 300 mg Tablet 300 mg PO DAILY@08 polyethylene glycol 3350 [Miralax] 17 gram/dose Powder 17 g PO DAILY@08 duloxetine 30 mg Capsule,Delayed Release(Dr/Ec) 30 mg PO DAILY@08 magnesium oxide 400 mg magnesium Tablet 400 mg PO DAILY@08 nitroglycerin [Nitrostat] 0.4 mg Tablet, Sublingual 0.4 mg SUBLINGUAL Q5M PRN (Reason: Chest Pain) Rx Instructions: do not exceed 3 doses per episode insulin glargine [Lantus U-100 Insulin] 100 unit/mL solution 50 unit SUBCUT BEDTIME tamsulosin 0.4 mg capsule 0.4 mg PO QPM finasteride 5 mg tablet 5 mg PO DAILY@08 Eliquis 5 mg tablet 5 mg PO BID@08,20 empagliflozin 25 mg Tablet 25 mg PO DAILY multivitamin Tablet 1 tab PO QAM zinc oxide 20 % Ointment See Rx Instructions .ROUTE .COMPLEX PRN (Reason: Skin Irritation) Rx Instructions: Mix 50/50 with mupirocin ointment and apply to wound of buttocks twice daily. potassium chloride 20 mEq tablet,ER particles/crystals 20 meq PO BID hydrochlorothiazide 25 mg tablet 25 mg PO DAILY mupirocin 2 % Ointment 1 applic TOPICAL BID losartan 100 mg tablet 100 mg PO DAILY rosuvastatin 10 mg tablet 10 mg PO QPM oxycodone 10 mg Tablet 10 mg PO Q4H PRN (Reason: Pain) cholecalciferol (vitamin D3) [Vitamin D3] 50 mcg (2,000 unit) Tablet 50 mcg PO DAILY semaglutide (weight loss) 1.7 mg/0.75 mL Pen Injector 1 mg SUBCUT Q7D pentoxifylline 400 mg Tablet Extended Release 400 mg PO BID pregabalin [Lyrica] 300 mg Capsule 300 mg PO BID@08,20 acetaminophen 325 mg Tablet 650 mg PO QID PRN (Reason: pain or temp) Discontinued bumetanide 2 mg tablet 2 mg PO DAILY Qty: 30 0RF Discharge Orders: Discharge Order (Routine); Ordered 03/11/24 Ordered By: Maricarmen Garcia Other Ambulatory Orders: Sestamibi Stress Test Request (Routine) Timeframe: 1 Day Facility: [facility] - Location: Cardiac Diagnostic Laboratory Ordered By: Maricarmen Garcia Referrals: Jessica Bui MD [Primary Care Provider] - 4-7 days Refugio Kraus MD [Physician] - 03/28/24 2:30 pm () Discharge Diet: Cardiac and Diabetic Discharge Activity: Increase activity as tolerated and As per PT/OT instructions Patient Instructions: Opioid Safety Discharge Attestations Time Spent in Discharge Care*: greater than 30 min Status at Discharge: Cognitive status at discharge: cognitively intact, Behavioral status at discharge: cooperative, Quality Metrics Clinical Quality Measures [ No reported AMI, CVA or VTE this stay] Coding Level of Care Code Acute Code for Chg Fwd Diagnoses Other secondary hypertension I15.8 Hypertension type: other secondary hypertension Acute on chronic diastolic congestive heart failure I50.33 Heart failure chronicity: acute on chronic Heart failure type: diastolic Presence of permanent cardiac pacemaker Z95.0 Carotid occlusion, bilateral I65.23 Longstanding persistent atrial fibrillation I48.91 Diarrhea R19.7 Diabetic peripheral neuropathy associated with type 2 diabetes mellitus E11.42 Intention tremor G25.2 History of stroke Z86.73 Foot and toe(s), blister, without mention of infection Difficulty in walking R26.2 Bilateral edema of lower extremity R60.0 Generalized weakness R53.1
[2024-03-11] MEDS: citalopram 20 mg Tablet PO (09:45)
[2024-03-11] MEDS: potassium chloride ER 20 mEq Tablet PO (09:45)
[2024-03-11] MEDS: magnesium oxide 400 mg tablet PO (09:45)
[2024-03-11] MEDS: allopurinol 300 mg Tablet PO (09:45)
[2024-03-11] MEDS: finasteride 5 mg Tablet PO (09:46)
[2024-03-11] MEDS: apixaban 5 mg Tablet PO (09:46)
[2024-03-11] MEDS: gabapentin 100 mg Capsule PO ×2 (09:46→17:39)
[2024-03-11] MEDS: FUROsemide 10 mg/mL SDV 10mL 60 MG IVP (09:46)
[2024-03-11] MEDS: doxycycline 100 mg Tablet PO ×2 (09:46→17:39)
[2024-03-11 10:30] LABS: Glucose Point of Care 245 mg/dL (70-110)
[2024-03-11] MEDS: insulin lispro 100 unit/1 mL SUBCUT ×3 (10:37→17:39)
[2024-03-11] MEDS: isosorbide mononitrate 20 mg Tablet PO ×2 (12:05→17:39)
[2024-03-11] MEDS: amlodipine 10 mg Tablet PO (12:05)
[2024-03-11] MEDS: metoprolol tartrate 25 mg Tablet 50 MG PO (12:06)
[2024-03-11 12:29] LABS: SARS Covid-2 Antigen negative (Negative)
[2024-03-11 13:08] LABS: Glucose Point of Care 242 mg/dL (70-110)
[2024-03-11] MEDS: oxyCODONE 5 mg IR Tab/Cap 10 MG PO (13:55)
[2024-03-11 16:48] LABS: Glucose Point of Care 188 mg/dL (70-110)
== END 2024-03-11 18:39 | disposition home or self-care (01) | DRG 291 ==
LOC: ER 20:15 → MEDSURG 20:52
PROVIDERS: Admitting Provider Internal Medicine; Emergency Provider Emergency Medicine; PCP Family Medicine; Visit Provider Internal Medicine
DX: I13.0 Hypertensive heart and chronic kidney disease with heart failure and stage 1 through stage 4 chronic kidney disease, or unspecified chronic kidney disease (principal); I50.33 Acute on chronic diastolic (congestive) heart failure; I48.20 Chronic atrial fibrillation, unspecified; L03.119 Cellulitis of unspecified part of limb; E11.22 Type 2 diabetes mellitus with diabetic chronic kidney disease; N18.9 Chronic kidney disease, unspecified; E11.51 Type 2 diabetes mellitus with diabetic peripheral angiopathy without gangrene; E11.42 Type 2 diabetes mellitus with diabetic polyneuropathy; I65.23 Occlusion and stenosis of bilateral carotid arteries; R19.7 Diarrhea, unspecified; G25.2 Other specified forms of tremor; S90.425A Blister (nonthermal), left lesser toe(s), initial encounter; S90.424A Blister (nonthermal), right lesser toe(s), initial encounter; R26.2 Difficulty in walking, not elsewhere classified; R53.1 Weakness; L89.152 Pressure ulcer of sacral region, stage 2; F32.A Depression, unspecified; I25.110 Atherosclerotic heart disease of native coronary artery with unstable angina pectoris; M21.42 Flat foot [pes planus] (acquired), left foot; M21.41 Flat foot [pes planus] (acquired), right foot; I87.2 Venous insufficiency (chronic) (peripheral); N40.0 Benign prostatic hyperplasia without lower urinary tract symptoms; G47.33 Obstructive sleep apnea (adult) (pediatric); E78.5 Hyperlipidemia, unspecified; M10.9 Gout, unspecified; E87.6 Hypokalemia; Z95.0 Presence of cardiac pacemaker; Z79.4 Long term (current) use of insulin; Z79.84 Long term (current) use of oral hypoglycemic drugs; Z79.85 Long-term (current) use of injectable non-insulin antidiabetic drugs; Z79.01 Long term (current) use of anticoagulants; X58.XXXA Exposure to other specified factors, initial encounter; Z86.73 Personal history of transient ischemic attack (TIA), and cerebral infarction without residual deficits; Z87.891 Personal history of nicotine dependence
CPT/HCPCS: 36415; 36416; 51702; 70450; 71045; 72131; 74176; 80048; 80053; 82607; 82962; 83735; 83880; 84100; 84484; 85025; 85610; 87426; 93005; 93306; 93925; 93970; 96372; 96374; 96375; 97110; 97161; 97530; 99285; J0295; J0360; J1815; J1940

== ENCOUNTER 2024-03-14 15:30 | Emergency (ER) | payer OTHER, MEDICARE, SELFPAY ==
[2024-03-14] VITALS (16 sets, daily range): BP systolic 106–194; BP diastolic 57–96; PULSE 59–89; RESP 8–18; TEMP 36.4; O2SAT 90–97; BMI 39.5
--- NOTE | 2024-03-14 15:33 | CTR_ITS ---
PROCEDURE INFORMATION: Exam: CT Head Without Contrast Exam date and time: 03/14/2024 6:09 PM Age: 74 years old Clinical indication: Altered mental status/memory loss; Confusion or disorientation; Additional info: AMS TECHNIQUE: Imaging protocol: Computed tomography of the head without contrast. Radiation optimization: All CT scans at this facility use at least one of these dose optimization techniques: automated exposure control; mA and/or kV adjustment per patient size (includes targeted exams where dose is matched to clinical indication); or iterative reconstruction. COMPARISON: CT head wo con* [id number] 03/10/2024 4:46 AM RADIATION DOSE METRICS: Total DLP (mGy-cm): 1274.31 FINDINGS: Brain: Prominent diffuse cerebral atrophy is noted. I see no evidence of acute hemorrhage, mass effect or infarct on today's study. Cerebral ventricles: No ventriculomegaly. No midline shift. Paranasal sinuses: Visualized sinuses are unremarkable. No fluid levels. Mastoid air cells: Visualized mastoid air cells are well aerated. Bones: Unremarkable. No acute fracture. Soft tissues: Unremarkable. CT/CT head wo con* [id number] IMPRESSION: 1. No acute findings. 2. Prominent cerebral atrophy noted
--- NOTE | 2024-03-14 15:33 | XRR_ITS ---
PROCEDURE INFORMATION: Exam: XR Chest Exam date and time: 03/14/2024 3:38 PM Age: 74 years old Clinical indication: Cough and dyspnea; Patient HX: AMS; Additional info: Dyspnea/cough TECHNIQUE: Imaging protocol: Radiologic exam of the chest. Views: 1 view. COMPARISON: CR (CHEST, ) 03/06/2024 5:55 PM FINDINGS: Tubes, catheters and devices: There is intact pacemaker hardware. Lungs: Focal atelectasis is seen in the right lower lung field. Poor definition of the left base and left costophrenic angle may be due to a pleural effusion. Pleural spaces: See Lungs finding. Heart/Mediastinum: Unremarkable. No cardiomegaly. Bones/joints: Unremarkable. XR/XR chest 1V portable [id number] IMPRESSION: 1. Focal atelectasis is seen in the right lower lung field. 2. Poor definition of the left base and left costophrenic angle may be due to a pleural effusion.
--- NOTE | 2024-03-14 15:34 | ECG_ITS ---
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 Measurements Intervals [place] Rate: 88 P: 0 IA: 0 QRS: -75 QRSD: 198 T: 101 QT: 485 QTc: 589 Interpretive Statements ELECTRONIC VENTRICULAR PACEMAKER ABNORMAL RHYTHM ECG Compared to ECG 03/07/2024 03:46:58 Prolonged QT interval no longer present Electronically Signed On 03-14-2024 19:25:44 [employer] by Refugio Kraus M.D. [email or web address]
[2024-03-14 15:46] LABS: Basophils # 0.1 10^3/uL (0.0-0.1); Basophils % 0.5 %; Eosinophils # 0.2 10^3/uL (0.0-0.8); Eosinophils % 1.5 %; Hematocrit 47.2 % (37-53); Lymphocytes # 1.7 10^3/uL (0.8-4.8); Lymphocytes % 10.4 %; Mean Corpuscular HGB Conc 32.6 g/dL (30-55); Mean Corpuscular Hemoglobin 27.7 pg (27-33); Mean Corpuscular Volume 84.9 fl (82-101); Mean Platelet Volume 10.3 fL (7.4-10.4); Monocytes # 0.9 10^3/uL (0.2-0.9); Monocytes % 5.6 %; Neutrophils # 12.72 10^3/uL (1.8-7.7); Neutrophils % 80.5 %; Nucleated Red Blood Cells % 0 %; Platelet Count 346 10^3/cmm (157-399); Red Blood Count 5.56 10^6/uL (3.85-5.65); Red Cell Distribution Width 13.2 % (12.1-15.1); White Blood Count 15.81 10^3/uL (3.29-11.43)
[2024-03-14 16:00] LABS: Add Urine Microscopic? YES; Bacteria Urine None Seen /hpf; Bilirubin Urine Negative (Negative); Blood Urine 1+ (Negative); Glucose Urine UA 3+ (Normal); Hyaline Casts Urine 2.46 /lpf; Ketones Urine Negative (Negative); Leukocyte Esterase Urine Trace (Negative); Nitrate Urine Negative (Negative); Protein Urine 2+ (Negative); RBC Urine 51-100 /hpf (0-2); Specific Gravity, Urine 1.019 (1.005-1.030); Squamous Epithelial Cell Urine 0-5 /hpf (0-5); Urine Appearance Clear (CLEAR); Urine Color Yellow (Yellow); Urobilinogen Urine 0.2 mg/dL (Negative); pH Urine 5.5 (5-7)
[2024-03-14 16:08] LABS: UA Slide Review UA Slide Review Perf
[2024-03-14 16:09] LABS: Add Urine Culture? Yes
[2024-03-14 16:09] LABS: Troponin(5th) Baseline 94 ng/L (0-15)
[2024-03-14 16:11] LABS: Alanine Aminotransferase 18 U/L (0-41); Albumin Level 2.9 g/dL (3.5-5.2); Alkaline Phosphatase 121 U/L (40-130); Anion Gap 13.8 (5-19); Aspartate Amino Transferase 20 U/L (0-40); Blood Urea Nitrogen 42 mg/dL (8-23); Calcium 8.8 mg/dL (8.5-10.5); Carbon Dioxide 31 mmol/L (22-29); Chloride 95 mmol/L (98-107); Creatinine Clr Calc Pharmacy 51.3436; Globulin 2.3 g/dL (1.3-4.6); Glucose 228 mg/dL (65-115); Magnesium 2.2 mg/dL (1.7-2.3); Osmolality Calculated 300 mOsm/kg (285-295); Potassium 3.8 mmol/L (3.5-5.1); Sodium 136 mmol/L (136-145); Total Bilirubin 0.3 mg/dL (0.15-1.2); Total Protein 5.2 g/dL (6.6-8.7)
[2024-03-14 16:14] LABS: Creatine Phosphokinase 344 U/L (39-308)
--- NOTE | 2024-03-14 16:25 | CTR_ITS ---
PROCEDURE INFORMATION: Exam: CT Abdomen And Pelvis Without Contrast Exam date and time: 03/14/2024 6:12 PM Age: 74 years old Clinical indication: Pain; Other: Flankk; Additional info: Flank pain TECHNIQUE: Imaging protocol: Computed tomography of the abdomen and pelvis without contrast. Radiation optimization: All CT scans at this facility use at least one of these dose optimization techniques: automated exposure control; mA and/or kV adjustment per patient size (includes targeted exams where dose is matched to clinical indication); or iterative reconstruction. COMPARISON: CT abdomen pelvis wo con [id number] 03/06/2024 9:25 PM RADIATION DOSE METRICS: Total DLP (mGy-cm): 1772.9 FINDINGS: Lungs: Patchy atelectasis involves both lung bases and there is pleural thickening bilaterally. Heart: Moderate cardiomegaly is noted. Liver: Normal. No mass. Gallbladder and biliary ducts: Multiple gallstones are noted in the gallbladder but the gallbladder does not appear inflamed and demonstrates normal wall thickness. Pancreas: Normal. No ductal dilation. Spleen: Normal. No splenomegaly. Adrenal glands: Normal. No mass. Kidneys and ureters: Both kidneys contain multiple cysts or nodules. A 1.5 cm stone is noted in the right kidney. I see no ureteral stone or dilatation. Stomach and bowel: Unremarkable. No obstruction. No mucosal thickening. Appendix: No evidence of appendicitis. Intraperitoneal space: Unremarkable. No free air. No significant fluid collection. Vasculature: Unremarkable. No abdominal aortic aneurysm. Lymph nodes: Unremarkable. No enlarged lymph nodes. Urinary bladder: The urinary bladder is severely distended and contains a small amount of air. Reproductive: Unremarkable as visualized. Bones/joints: Unremarkable. No acute fracture. Soft tissues: Unremarkable. CT/CT kidney stone [id number] IMPRESSION: 1. Severe bladder distension with intraluminal bladder air suggesting UTI. There may be bladder outlet obstruction present. 2. Multiple bilateral renal cysts and/or nodules. These are difficult to clearly defined on this CT. Further workup with contrasted CT or MRI would be helpful 3. Cholelithiasis 4. Cardiomegaly with bibasilar atelectasis 5. Right renal stone COMMENTS: Consistent with the [employer]'s Incidental Findings Committee white paper (J Am Narayan Radiol 2018): Any incidental renal lesion less than 1 cm or classified as too small to characterize, or any incidental cystic renal lesion characterized as simple-appearing, is likely benign. No follow-up imaging is recommended for these lesions per consensus recommendations based on imaging criteria.
--- NOTE | 2024-03-14 16:34 | PC.NURSE ---
when [facility] radioed report, they stated that pt was coming for 'altered mental status and conversations that dont make sense'. this RN asked if [facility] was worried about a stroke and [facility] denied concern for a stroke. this RN [facility] are on STROKE divert d/t no power and CT machine being down.
--- NOTE | 2024-03-14 17:05 | ED_ITS ---
Documented by User: Roberto Keys DO 03/15/24 06:15 HPI - Altered Mental Status 2 General: Chief Complaint: Altered Mental Status Stated Complaint: AMS Time Seen by Provider: 03/14/24 15:33 History of Present Illness: 74-year-old male presents emergency room from the group home. The report from there as he is not the same. He has been there about 4 days. His last bowel movement was 2 days ago. He states he is not been eating or drinking well when I talked to the patient he denies any symptoms all the only thing he can relate is that when he sits up he gets lightheaded and dizzy and Related Data Home Medications Medication Instructions Recorded Confirmed pentoxifylline 400 mg 400 mg PO BID 08/14/22 03/14/24 tablet,extended release pregabalin 300 mg capsule (Lyrica) 300 mg PO BID@,08/14/22 03/14/24 allopurinol 300 mg tablet 300 mg PO DAILY@12/19/22 03/14/24 duloxetine 30 mg capsule,delayed 30 mg PO DAILY@12/19/22 03/14/24 release magnesium oxide 400 mg PO DAILY@12/19/22 03/14/24 polyethylene glycol 3350 17 17 g PO DAILY@12/19/22 03/14/24 gram/dose oral powder (Miralax) acetaminophen 325 mg tablet 650 mg PO QID PRN pain or temp 04/01/23 03/14/24 apixaban 5 mg tablet (Eliquis) 5 mg PO BID@04/19/23 03/14/24 finasteride 5 mg tablet 5 mg PO DAILY@04/19/23 03/14/24 insulin glargine 100 unit/mL 50 unit SUBCUT BEDTIME 04/19/23 03/14/24 subcutaneous solution (Lantus U-100 Insulin) nitroglycerin 0.4 mg sublingual 0.4 mg sublingual Q5M PRN Chest 04/19/23 03/14/24 tablet (Nitrostat) Pain tamsulosin 0.4 mg capsule 0.4 mg PO QPM 04/19/23 03/14/24 empagliflozin 25 mg tablet 25 mg PO DAILY 03/07/24 03/14/24 cholecalciferol (vitamin D3) 50 50 mcg PO DAILY 03/08/24 03/14/24 mcg (2,000 unit) tablet (Vitamin D3) hydrochlorothiazide 25 mg tablet 25 mg PO DAILY 03/08/24 03/14/24 losartan 100 mg tablet 100 mg PO DAILY 03/08/24 03/14/24 mupirocin 2 % topical ointment 1 applic topical BID 03/08/24 03/14/24 oxycodone 10 mg tablet 10 mg PO Q4H PRN Pain 03/08/24 03/14/24 potassium chloride 20 mEq 20 meq PO BID 03/08/24 03/14/24 tablet,extended release(part/cryst) rosuvastatin 10 mg tablet 10 mg PO QPM 03/08/24 03/14/24 zinc oxide 20 % topical ointment See Rx Instructions .Route 03/08/24 03/14/24 .COMPLEX PRN Skin Irritation amoxicillin 875 mg-potassium 1 tab PO BID 03/14/24 03/14/24 clavulanate 125 mg tablet bisacodyl 10 mg rectal suppository 10 mg DE DAILY PRN Constipation 03/14/24 03/14/24 (Dulcolax (bisacodyl)) doxycycline hyclate 100 mg capsule 100 mg PO BID 03/14/24 03/14/24 dulaglutide 3 mg/0.5 mL 3 mg SUBCUT Q7D 03/14/24 03/14/24 subcutaneous pen injector (Trulicity) furosemide 20 mg tablet (Lasix) See Rx Instructions .Route .COMPLEX 03/14/24 03/14/24 furosemide 40 mg tablet See Rx Instructions .Route .COMPLEX 03/14/24 03/14/24 honey 80 % topical gel 1 applic topical BID 03/14/24 03/14/24 multivitamin-ferrous 1 tab PO QAM 03/14/24 03/14/24 fumarate-folic acid 18 mg-400 mcg tablet tuberculin PPD 5 tub. unit/0.1 mL 1 tb unit intradermal ONCE 03/14/24 03/14/24 intradermal injection solution (Tubersol) Previous Rx's Medication Instructions Recorded [place] afo to right #1 ea 08/05/21 Diabetic Shoes with 3 pairs of #1 ea 06/18/22 inserts Silver Alginate Dressing and 2 #1 ea 08/06/22 Layer Compression System Wraps 2 Layer Compression Bandage #1 ea 01/22/23 System- Coflex TLC LITE Calamine with Indicators 4 in x6 yard/4 in by 7 yard insulin aspart U-100 100 unit/mL 12 unit (0.12 mL) SUBCUT .WITH 09/02/23 subcutaneous solution (Novolog MEALS #10 mL U-100 Insulin aspart) amlodipine 10 mg tablet 10 mg PO DAILY #30 tabs 03/11/24 isosorbide mononitrate 20 mg tablet 20 mg PO BID #60 tabs 03/11/24 sennosides 8.6 mg-docusate sodium 1 tab PO DAILY #30 tabs 03/11/24 50 mg tablet (Stool Softener-Laxative) cephalexin 500 mg tablet 500 mg PO TID 7 days #21 tabs 03/14/24 fluconazole 100 mg tablet 100 mg PO DAILY #7 tabs 03/14/24 Allergies Allergy/AdvReac Type Severity Reaction Status Date / Time aspirin Allergy ALGY-Anaphy Verified 12/29/23 15:32 laxis atorvastatin Allergy Unknown Verified 12/29/23 15:32 carvedilol AdvReac diarrhea Verified 12/29/23 15:32 hydralazine AdvReac vomiting Verified 12/29/23 15:32 Review of Systems 2 Const: Denies: fever(s) or chills Card: Denies: chest pain Resp: Denies: dyspnea GI: Denies: abdominal pain : Denies: dysuria, urinary frequency or urinary urgency Musc: Denies: neck pain or back pain Skin/Breast: Denies: rash PFSH ED 2 PFSH: Medical History Atrial fibrillation Chronic, history of bradycardia with beta blockers, on eliquis Hyperkalemia Cervical radiculopathy Acute kidney injury Weakness Chronic venous insufficiency Benign essential hypertension with target blood pressure below 140/90 Sacroiliitis Hypertension Constipation Gout attack Acute on chronic diastolic (congestive) heart failure Hypokalemia CHF exacerbation Swelling of right upper extremity Atrial fibrillation Peripheral arterial disease CKD (chronic kidney disease) Ischemic toe ulcer Physical deconditioning Bilateral lower leg cellulitis Temporary transvenous cardiac pacemaker present BMI 40.0-44.9, adult Hyperkalemia Squamous cell carcinoma in situ Abnormal nuclear stress test Accelerated hypertension Chronic diastolic heart failure Atrial fibrillation Acute kidney injury Rhabdomyolysis Coronary artery disease Evaluated in [place], patient reports 55% narrowing unknown vessel no stent or angioplasty done PAD (peripheral artery disease) Calculus of proximal ureter Diabetic neuropathy associated with type 2 diabetes mellitus Lumbar foraminal stenosis Bradycardia Nicotine dependence, chewing tobacco, with other nicotine-induced disorders Diabetes mellitus, type II Chronic anticoagulation eliquis Osteoarthritis Obesity BMI-42 kg/m2 Chronic kidney disease Hyperlipidemia Obstructive sleep apnea not on treatment by choice CVA (cerebral vascular accident) residual right weakness Congestive heart failure BPH NOS w/o ur obs/LUTS PVD (peripheral vascular disease) Pes planus of both feet Renal calculus, right Surgical History Hx of colonoscopy with polypectomy Status post cardiac pacemaker procedure No pertinent past surgical history Family History Mother , 87 Diabetes CAD (coronary artery disease) Hypertension Father , 60 No problems noted. Social History Smoking and tobacco/nicotine status: former use of tobacco/nicotine Alcohol intake: former Year of sobriety/quit date alcohol: 25 y Former alcohol use details: heavy use, 5 DWI's Substance/Drug Use: former Household members: none Housing: House Marital status: service: Yes Current occupational status: retired Physical Exam 2 Const: COMMON NORMALS: no acute distress GENERAL APPEARANCE: cooperative and comfortable ORIENTATION/CONSCIOUSNESS: Yes awake, Yes oriented to person, Yes oriented to place and Yes oriented to time HENMT: COMMON NORMALS: normocephalic, atraumatic and hearing grossly normal bilaterally HEAD & SCALP: normocephalic and atraumatic Resp: COMMON NORMALS: normal respiratory effort, No retractions, No use of accessory muscles and clear to auscultation bilaterally AUSCULTATION: clear to auscultation bilaterally Cardio: COMMON NORMALS: regular rate, regular rhythm and No murmurs present (Cardio) RATE: regular rate RHYTHM: regular rhythm GI: COMMON NORMALS: Soft to palpation and No hepatosplenomegaly present A USCULTATION: Yes normoactive bowel sounds PALPATION: Yes Soft to palpation, No Tenderness to palpation present (GI), No Guarding due to palpation present (GI) and Yes No hepatosplenomegaly present Extremity: COMMON NORMALS: normal to inspection, capillary refill normal, no clubbing, cyanosis or edema, no calf tenderness and no pedal edema Neuro: SENSORIUM/ORIENTATION: Yes oriented to person, Yes oriented to place and Yes oriented to time Skin: COMMON NORMALS: no rashes or lesions noted GENERAL SKIN EXAM: no rashes or lesions noted Course 2 Vital Signs: Vital signs: Vital Signs Temperature 97.5 F L 03/14/24 15:30 Pulse Rate 61 03/14/24 22:00 Respiratory Rate 12 03/14/24 22:00 Blood Pressure 194/76 03/14/24 22:00 Pulse Oximetry 95 03/14/24 21:00 Oxygen Delivery Me thod Room Air 03/14/24 18:32 MDM - Altered Mental Status Medical Decision Making Care signed out to Dr. Cervantes at change of shift. See final notes for diagnosis and disposition. Patient care transitioned me at shift change awaiting CT scan results. Patient had some hematuria and a possible infection. CT shows some bladder distention and a possible UTI. Otherwise no acute processes. Does have some renal cyst. There is yeast and bacteria in his urine. Treating for both. Lab Data 03/14/24 15:36 03/14/24 15:36 Radiology Impressions Chest X-Ray 03/14/24 15:33 IMPRESSION: 1. Focal atelectasis is seen in the right lower lung field. 2. Poor definition of the left base and left costophrenic angle may be due to a pleural effusion. Head CT 03/14/24 15:33 IMPRESSION: 1. No acute findings. 2. Prominent cerebral atrophy noted Abdomen/Pelvis CT 03/14/24 16:25 IMPRESSION: 1. Severe bladder distension with intraluminal bladder air suggesting UTI. There may be bladder outlet obstruction present. 2. Multiple bilateral renal cysts and/or nodules. These are difficult to clearly defined on this CT. Further workup with contrasted CT or MRI would be helpful 3. Cholelithiasis 4. Cardiomegaly with bibasilar atelectasis 5. Right renal stone COMMENTS: Consistent with the [employer]'s Incidental Findings Committee white paper (J Am Nraayan Radiol 2018): Any incidental renal lesion less than 1 cm or classified as too small to characterize, or any incidental cystic renal lesion characterized as simple-appearing, is likely benign. No follow-up imaging is recommended for these lesions per consensus recommendations based on imaging criteria. Laboratory Results WBC 15.81 10^3/uL (3.29-11.43) H 03/14/24 15:36 RBC 5.56 10^6/uL (3.85-5.65) 03/14/24 15:36 Hgb 15.40 g/dL (11.27-16.99) 03/14/24 15:36 Hct 47.2 % (37-53) 03/14/24 15:36 MCV 84.9 fl (82-101) 03/14/24 15:36 MCH 27.7 pg (27-33) 03/14/24 15:36 MCHC 32.6 g/dL (30-55) 03/14/24 15:36 RDW 13.2 % (12.1-15.1) 03/14/24 15:36 Plt Count 346 10^3/cmm (157-399) 03/14/24 15:36 MPV 10.3 fL (7.4-10.4) 03/14/24 15:36 Neut % (Auto) 80.5 % 03/14/24 15:36 Lymph % (Auto) 10.4 % 03/14/24 15:36 Sanders % (Auto) 5.6 % 03/14/24 15:36 Eos % (Auto) 1.5 % 03/14/24 15:36 Baso % (Auto) 0.5 % 03/14/24 15:36 Neut # (Auto) 12.72 10^3/uL (1.8-7.7) H 03/14/24 15:36 Lymph # (Auto) 1.7 10^3/uL (0.8-4.8) 03/14/24 15:36 Sanders # (Auto) 0.9 10^3/uL (0.2-0.9) 03/14/24 15:36 Eos # (Auto) 0.2 10^3/uL (0.0-0.8) 03/14/24 15:36 Baso # (Auto) 0.1 10^3/uL (0.0-0.1) 03/14/24 15:36 Nucleated RBC % (auto) 0 % 03/14/24 15:36 Nucleated RBCs # 0.0 /100WBC 03/14/24 15:36 Sodium 136 mmol/L (136-145) 03/14/24 15:36 Potassium 3.8 mmol/L (3.5-5.1) 03/14/24 15:36 Chloride 95 mmol/L (98-107) L 03/14/24 15:36 Carbon Dioxide 31 mmol/L (22-29) H 03/14/24 15:36 Anion Gap 13.8 (5-19) 03/14/24 15:36 BUN 42 mg/dL (8-23) H 03/14/24 15:36 Creatinine 1.8 mg/dL (0.7-1.2) H 03/14/24 15:36 GFR Calculation Not Reportable 03/14/24 15:36 Glucose 228 mg/dL (65-115) H 03/14/24 15:36 Calculated Osmolality 300 mOsm/kg (285-295) H 03/14/24 15:36 Lactic Acid 1.3 mmol/L (0.5-2.2) 03/14/24 15:36 Calcium 8.8 mg/dL (8.5-10.5) 03/14/24 15:36 Magnesium 2.2 mg/dL (1.7-2.3) 03/14/24 15:36 Total Bilirubin 0.3 mg/dL (0.15-1.2) 03/14/24 15:36 AST 20 U/L (0-40) 03/14/24 15:36 ALT 18 U/L (0-41) 03/14/24 15:36 Alkaline Phosphatase 121 U/L (40-130) 03/14/24 15:36 Creatine Kinase 344 U/L (39-308) H* 03/14/24 15:36 Troponin T Baseline 94 ng/L (0-15) H 03/14/24 15:36 Troponin T 120 Minute 87.28 ng/L (0-15) H 03/14/24 17:41 Delta Troponin T -6.72 ABS# (0-10) L 03/14/24 17:41 Total Protein 5.2 g/dL (6.6-8.7) L 03/14/24 15:36 Albumin 2.9 g/dL (3.5-5.2) L 03/14/24 15:36 Globulin 2.3 g/dL (1.3-4.6) 03/14/24 15:36 Urine Color Yellow (Yellow) 03/14/24 15:40 Urine Appearance Clear (CLEAR) 03/14/24 15:40 Urine pH 5.5 (5-7) 03/14/24 15:40 Ur Specific Rigby 1.019 (1.005-1.030) 03/14/24 15:40 Urine Protein 2+ (Negative) A 03/14/24 15:40 Urine Glucose (UA) 3+ (Normal) H 03/14/24 15:40 Urine Ketones Negative (Negative) 03/14/24 15:40 Urine Blood 1+ (Negative) A 03/14/24 15:40 Urine Nitrate Negative (Negative) 03/14/24 15:40 Urine Bilirubin Negative (Negative) 03/14/24 15:40 Urine Urobilinogen 0.2 mg/dL (Negative) 03/14/24 15:40 Ur Leukocyte Esterase Trace (Negative) A 03/14/24 15:40 Urine RBC 51-100 /hpf (0-2) H 03/14/24 15:40 Urine WBC 11-20 /hpf (0-5) H 03/14/24 15:40 Ur Squamous Epith Cells 0-5 /hpf (0-5) 03/14/24 15:40 Amorphous Sediment Not Reportable 03/14/24 15:40 Urine Bacteria None seen /hpf (NONE) 03/14/24 15:40 Hyaline Casts 2.46 /lpf 03/14/24 15:40 Urine Yeast 3+ /hpf H 03/14/24 15:40 Discharge Plan Discharge Patient Disposition: Home Clinical Impression: Acute UTI Condition: Stable Prescriptions: New fluconazole 100 mg tablet 100 mg PO DAILY Qty: 7 0RF cephalexin 500 mg tablet 500 mg PO TID 7 Days Qty: 21 0RF No Action (DME) jc afo to right See Rx Instructions .Route .MEDSUPPLY Qty: 1 0RF Rx Instructions: As directed by [employer] (DME) Diabetic Shoes with 3 pairs of inserts See Rx Instructions .ROUTE .MEDSUPPLY Qty: 1 0RF Rx Instructions: As directed by [employer] insulin aspart U-100 [Novolog U-100 Insulin aspart] 100 unit/mL solution 12 unit SUBCUT .WITH MEALS Qty: 10 1RF Rx Instructions: TID (DME) Silver Alginate Dressing and 2 Layer Compression System Wraps See Rx Instructions .Route .MEDSUPPLY Qty: 1 0RF Rx Instructions: Dressing supplies needed for 30 days with 3 Refills (DME) 2 Layer Compression Bandage System- Coflex TLC LITE Calamine with Indicators 4 in x6 yard/4 in by 7 yard See Rx Instructions .Route .MEDSUPPLY Qty: 1 0RF Rx Instructions: 32 boxes needed for 3 months Compression 20 to 30 mmHg- Ref. # [id number] allopurinol 300 mg Tablet 300 mg PO DAILY@08 polyethylene glycol 3350 [Miralax] 17 gram/dose Powder 17 g PO DAILY@08 duloxetine 30 mg Capsule,Delayed Release(Dr/Ec) 30 mg PO DAILY@08 magnesium oxide 400 mg magnesium Tablet 400 mg PO DAILY@08 nitroglycerin [Nitrostat] 0.4 mg Tablet, Sublingual 0.4 mg SUBLINGUAL Q5M PRN (Reason: Chest Pain) Rx Instructions: do not exceed 3 doses per episode insulin glargine [Lantus U-100 Insulin] 100 unit/mL solution 50 unit SUBCUT BEDTIME tamsulosin 0.4 mg capsule 0.4 mg PO QPM finasteride 5 mg tablet 5 mg PO DAILY@08 Eliquis 5 mg tablet 5 mg PO BID@08,20 empagliflozin 25 mg Tablet 25 mg PO DAILY zinc oxide 20 % Ointment See Rx Instructions .ROUTE .COMPLEX PRN (Reason: Skin Irritation) Rx Instructions: Mix 50/50 with mupirocin ointment and apply to wound of buttocks twice daily. potassium chloride 20 mEq tablet,ER particles/crystals 20 meq PO BID hydrochlorothiazide 25 mg tablet 25 mg PO DAILY mupirocin 2 % Ointment 1 applic TOPICAL BID losartan 100 mg tablet 100 mg PO DAILY rosuvastatin 10 mg tablet 10 mg PO QPM oxycodone 10 mg Tablet 10 mg PO Q4H PRN (Reason: Pain) cholecalciferol (vitamin D3) [Vitamin D3] 50 mcg (2,000 unit) Tablet 50 mcg PO DAILY isosorbide mononitrate 20 mg Tablet 20 mg PO BID Qty: 60 0RF sennosides-docusate sodium [Stool Softener-Laxative] 8.6-50 mg Tablet 1 tab PO DAILY Qty: 30 0RF amlodipine 10 mg Tablet 10 mg PO DAILY Qty: 30 0RF furosemide 40 mg Tablet See Rx Instructions .ROUTE .COMPLEX Rx Instructions: Take by mouth 40mg+20mg=60mg every am , Then take 40mg in the pm. bisacodyl [Dulcolax (bisacodyl)] 10 mg Suppository 10 mg DE DAILY PRN (Reason: Constipation) Multi-Kristi (with folic acid) 18-400 mg-mcg Tablet 1 tab PO QAM honey 80 % Gel 1 applic TOPICAL BID Tubersol 5 tub. unit /0.1 mL Solution 1 tb unit INTRADERMAL ONCE doxycycline hyclate 100 mg capsule 100 mg PO BID amoxicillin-pot clavulanate 875-125 mg Tablet 1 tab PO BID Trulicity 3 mg/0.5 mL Pen Injector 3 mg SUBCUT Q7D furosemide [Lasix] 20 mg tablet See Rx Instructions .ROUTE .COMPLEX Rx Instructions: Take by Mouth 20mg+ 40mg = 60 mg in am pentoxifylline 400 mg Tablet Extended Release 400 mg PO BID pregabalin [Lyrica] 300 mg Capsule 300 mg PO BID@08,20 acetaminophen 325 mg Tablet 650 mg PO QID PRN (Reason: pain or temp) Discharge Orders: Discharge ED (Routine); Ordered 03/14/24 Ordered By: Jeny Cervantes Referrals: Jessica Bui MD [Primary Care Provider] - Discharge Diet: Usual diet Discharge Activity: Increase activity as tolerated Patient Instructions: Altered Mental Status (ED), Urinary Tract Infection in Older Adults (ED), Opioid Safety, Pain Management Activity Restrictions/Additional Instructions: Thank you for choosing [facility] for your healthcare needs today. Please realize this is an emergency room and that we are providing you with a medical screening exam and this may not be complete and all inclusive of all the testing and or work up that you may need to determine your ailment or severity of your illness. You have been screened and evaluated and felt safe for discharge. Health conditions do change or evolve sometimes and as such it is important that you follow up with your Primary Doctor to be re checked, 3-5 days is a general good time frame for follow up. You are always welcome to return to the ED for re assessment if your symptoms are worsening or you have new concerns Coding Level of Care Code ED Pot Room Supervisor for Yris Fwd Documented by User: Jeny Cervantes MD 03/14/24 20:04 HPI - Altered Mental Status 2 General: Chief Complaint: Altered Mental Status Stated Complaint: AMS Time Seen by Provider: 03/14/24 15:33 Related Data Home Medications Medication Instructions Recorded Confirmed pentoxifylline 400 mg 400 mg PO BID 08/14/22 03/14/24 tablet,extended release pregabalin 300 mg capsule (Lyrica) 300 mg PO BID@,08/14/22 03/14/24 allopurinol 300 mg tablet 300 mg PO DAILY@12/19/22 03/14/24 duloxetine 30 mg capsule,delayed 30 mg PO DAILY@12/19/22 03/14/24 release magnesium oxide 400 mg PO DAILY@12/19/22 03/14/24 polyethylene glycol 3350 17 17 g PO DAILY@12/19/22 03/14/24 gram/dose oral powder (Miralax) acetaminophen 325 mg tablet 650 mg PO QID PRN pain or temp 04/01/23 03/14/24 apixaban 5 mg tablet (Eliquis) 5 mg PO BID@,04/19/23 03/14/24 finasteride 5 mg tablet 5 mg PO DAILY@04/19/23 03/14/24 insulin glargine 100 unit/mL 50 unit SUBCUT BEDTIME 04/19/23 03/14/24 subcutaneous solution (Lantus U-100 Insulin) nitroglycerin 0.4 mg sublingual 0.4 mg sublingual Q5M PRN Chest 04/19/23 03/14/24 tablet (Nitrostat) Pain tamsulosin 0.4 mg capsule 0.4 mg PO QPM 04/19/23 03/14/24 empagliflozin 25 mg tablet 25 mg PO DAILY 03/07/24 03/14/24 cholecalciferol (vitamin D3) 50 50 mcg PO DAILY 03/08/24 03/14/24 mcg (2,000 unit) tablet (Vitamin D3) hydrochlorothiazide 25 mg tablet 25 mg PO DAILY 03/08/24 03/14/24 losartan 100 mg tablet 100 mg PO DAILY 03/08/24 03/14/24 mupirocin 2 % topical ointment 1 applic topical BID 03/08/24 03/14/24 oxycodone 10 mg tablet 10 mg PO Q4H PRN Pain 03/08/24 03/14/24 potassium chloride 20 mEq 20 meq PO BID 03/08/24 03/14/24 tablet,extended release(part/cryst) rosuvastatin 10 mg tablet 10 mg PO QPM 03/08/24 03/14/24 zinc oxide 20 % topical ointment See Rx Instructions .Route 03/08/24 03/14/24 .COMPLEX PRN Skin Irritation amoxicillin 875 mg-potassium 1 tab PO BID 03/14/24 03/14/24 clavulanate 125 mg tablet bisacodyl 10 mg rectal suppository 10 mg DE DAILY PRN Constipation 03/14/24 03/14/24 (Dulcolax (bisacodyl)) doxycycline hyclate 100 mg capsule 100 mg PO BID 03/14/24 03/14/24 dulaglutide 3 mg/0.5 mL 3 mg SUBCUT Q7D 03/14/24 03/14/24 subcutaneous pen injector (Trulicity) furosemide 20 mg tablet (Lasix) See Rx Instructions .Route .COMPLEX 03/14/24 03/14/24 furosemide 40 mg tablet See Rx Instructions .Route .COMPLEX 03/14/24 03/14/24 honey 80 % topical gel 1 applic topical BID 03/14/24 03/14/24 multivitamin-ferrous 1 tab PO QAM 03/14/24 03/14/24 fumarate-folic acid 18 mg-400 mcg tablet tuberculin PPD 5 tub. unit/0.1 mL 1 tb unit intradermal ONCE 03/14/24 03/14/24 intradermal injection solution (Tubersol) Previous Rx's Medication Instructions Recorded [place] afo to right #1 ea 08/05/21 Diabetic Shoes with 3 pairs of #1 ea 06/18/22 inserts Silver Alginate Dressing and 2 #1 ea 08/06/22 Layer Compression System Wraps 2 Layer Compression Bandage #1 ea 01/22/23 System- Coflex TLC LITE Calamine with Indicators 4 in x6 yard/4 in by 7 yard insulin aspart U-100 100 unit/mL 12 unit (0.12 mL) SUBCUT .WITH 09/02/23 subcutaneous solution (Novolog MEALS #10 mL U-100 Insulin aspart) amlodipine 10 mg tablet 10 mg PO DAILY #30 tabs 03/11/24 isosorbide mononitrate 20 mg tablet 20 mg PO BID #60 tabs 03/11/24 sennosides 8.6 mg-docusate sodium 1 tab PO DAILY #30 tabs 03/11/24 50 mg tablet (Stool Softener-Laxative) cephalexin 500 mg tablet 500 mg PO TID 7 days #21 tabs 03/14/24 fluconazole 100 mg tablet 100 mg PO DAILY #7 tabs 03/14/24 Allergies Allergy/AdvReac Type Severity Reaction Status Date / Time aspirin Allergy ALGY-Anaphy Verified 12/29/23 15:32 laxis atorvastatin Allergy Unknown Verified 12/29/23 15:32 carvedilol AdvReac diarrhea Verified 12/29/23 15:32 hydralazine AdvReac vomiting Verified 12/29/23 15:32 PFSH ED 2 PFSH: Medical History Atrial fibrillation Chronic, history of bradycardia with beta blockers, on eliquis Hyperkalemia Cervical radiculopathy Acute kidney injury Weakness Chronic venous insufficiency Benign essential hypertension with target blood pressure below 140/90 Sacroiliitis Hypertension Constipation Gout attack Acute on chronic diastolic (congestive) heart failure Hypokalemia CHF exacerbation Swelling of right upper extremity Atrial fibrillation Peripheral arterial disease CKD (chronic kidney disease) Ischemic toe ulcer Physical deconditioning Bilateral lower leg cellulitis Temporary transvenous cardiac pacemaker present BMI 40.0-44.9, adult Hyperkalemia Squamous cell carcinoma in situ Abnormal nuclear stress test Accelerated hypertension Chronic diastolic heart failure Atrial fibrillation Acute kidney injury Rhabdomyolysis Coronary artery disease Evaluated in [place], patient reports 55% narrowing unknown vessel no stent or angioplasty done PAD (peripheral artery disease) Calculus of proximal ureter Diabetic neuropathy associated with type 2 diabetes mellitus Lumbar foraminal stenosis Bradycardia Nicotine dependence, chewing tobacco, with other nicotine-induced disorders Diabetes mellitus, type II Chronic anticoagulation eliquis Osteoarthritis Obesity BMI-42 kg/m2 Chronic kidney disease Hyperlipidemia Obstructive sleep apnea not on treatment by choice CVA (cerebral vascular accident) residual right weakness Congestive heart failure BPH NOS w/o ur obs/LUTS PVD (peripheral vascular disease) Pes planus of both feet Renal calculus, right Surgical History Hx of colonoscopy with polypectomy Status post cardiac pacemaker procedure No pertinent past surgical history Family History Mother , 87 Diabetes CAD (coronary artery disease) Hypertension Father , 60 No problems noted. Social History Smoking and tobacco/nicotine status: former use of tobacco/nicotine Alcohol intake: former Year of sobriety/quit date alcohol: 25 y Former alcohol use details: heavy use, 5 DWI's Substance/Drug Use: former Household members: none Housing: House Marital status: service: Yes Current occupational status: retired Course 2 Vital Signs: Vital signs: Vital Signs Temperature 97.5 F L 03/14/24 15:30 Pulse Rate 61 03/14/24 22:00 Respiratory Rate 12 03/14/24 22:00 Blood Pressure 194/76 03/14/24 22:00 Pulse Oximetry 95 03/14/24 21:00 Oxygen Delivery Me thod Room Air 03/14/24 18:32 MDM - Altered Mental Status Medical Decision Making Patient care transitioned me at shift change awaiting CT scan results. Patient had some hematuria and a possible infection. CT shows some bladder distention and a possible UTI. Otherwise no acute processes. Does have some renal cyst. There is yeast and bacteria in his urine. Treating for both. Lab Data 03/14/24 15:36 03/14/24 15:36 Radiology Impressions Chest X-Ray 03/14/24 15:33 IMPRESSION: 1. Focal atelectasis is seen in the right lower lung field. 2. Poor definition of the left base and left costophrenic angle may be due to a pleural effusion. Head CT 03/14/24 15:33 IMPRESSION: 1. No acute findings. 2. Prominent cerebral atrophy noted Abdomen/Pelvis CT 03/14/24 16:25 IMPRESSION: 1. Severe bladder distension with intraluminal bladder air suggesting UTI. There may be bladder outlet obstruction present. 2. Multiple bilateral renal cysts and/or nodules. These are difficult to clearly defined on this CT. Further workup with contrasted CT or MRI would be helpful 3. Cholelithiasis 4. Cardiomegaly with bibasilar atelectasis 5. Right renal stone COMMENTS: Consistent with the [employer]'s Incidental Findings Committee white paper (J Am Narayan Radiol 2018): Any incidental renal lesion less than 1 cm or classified as too small to characterize, or any incidental cystic renal lesion characterized as simple-appearing, is likely benign. No follow-up imaging is recommended for these lesions per consensus recommendations based on imaging criteria. Laboratory Results WBC 15.81 10^3/uL (3.29-11.43) H 03/14/24 15:36 RBC 5.56 10^6/uL (3.85-5.65) 03/14/24 15:36 Hgb 15.40 g/dL (11.27-16.99) 03/14/24 15:36 Hct 47.2 % (37-53) 03/14/24 15:36 MCV 84.9 fl (82-101) 03/14/24 15:36 MCH 27.7 pg (27-33) 03/14/24 15:36 MCHC 32.6 g/dL (30-55) 03/14/24 15:36 RDW 13.2 % (12.1-15.1) 03/14/24 15:36 Plt Count 346 10^3/cmm (157-399) 03/14/24 15:36 MPV 10.3 fL (7.4-10.4) 03/14/24 15:36 Neut % (Auto) 80.5 % 03/14/24 15:36 Lymph % (Auto) 10.4 % 03/14/24 15:36 Sanders % (Auto) 5.6 % 03/14/24 15:36 Eos % (Auto) 1.5 % 03/14/24 15:36 Baso % (Auto) 0.5 % 03/14/24 15:36 Neut # (Auto) 12.72 10^3/uL (1.8-7.7) H 03/14/24 15:36 Lymph # (Auto) 1.7 10^3/uL (0.8-4.8) 03/14/24 15:36 Sanders # (Auto) 0.9 10^3/uL (0.2-0.9) 03/14/24 15:36 Eos # (Auto) 0.2 10^3/uL (0.0-0.8) 03/14/24 15:36 Baso # (Auto) 0.1 10^3/uL (0.0-0.1) 03/14/24 15:36 Nucleated RBC % (auto) 0 % 03/14/24 15:36 Nucleated RBCs # 0.0 /100WBC 03/14/24 15:36 Sodium 136 mmol/L (136-145) 03/14/24 15:36 Potassium 3.8 mmol/L (3.5-5.1) 03/14/24 15:36 Chloride 95 mmol/L (98-107) L 03/14/24 15:36 Carbon Dioxide 31 mmol/L (22-29) H 03/14/24 15:36 Anion Gap 13.8 (5-19) 03/14/24 15:36 BUN 42 mg/dL (8-23) H 03/14/24 15:36 Creatinine 1.8 mg/dL (0.7-1.2) H 03/14/24 15:36 GFR Calculation Not Reportable 03/14/24 15:36 Glucose 228 mg/dL (65-115) H 03/14/24 15:36 Calculated Osmolality 300 mOsm/kg (285-295) H 03/14/24 15:36 Lactic Acid 1.3 mmol/L (0.5-2.2) 03/14/24 15:36 Calcium 8.8 mg/dL (8.5-10.5) 03/14/24 15:36 Magnesium 2.2 mg/dL (1.7-2.3) 03/14/24 15:36 Total Bilirubin 0.3 mg/dL (0.15-1.2) 03/14/24 15:36 AST 20 U/L (0-40) 03/14/24 15:36 ALT 18 U/L (0-41) 03/14/24 15:36 Alkaline Phosphatase 121 U/L (40-130) 03/14/24 15:36 Creatine Kinase 344 U/L (39-308) H* 03/14/24 15:36 Troponin T Baseline 94 ng/L (0-15) H 03/14/24 15:36 Troponin T 120 Minute 87.28 ng/L (0-15) H 03/14/24 17:41 Delta Troponin T -6.72 ABS# (0-10) L 03/14/24 17:41 Total Protein 5.2 g/dL (6.6-8.7) L 03/14/24 15:36 Albumin 2.9 g/dL (3.5-5.2) L 03/14/24 15:36 Globulin 2.3 g/dL (1.3-4.6) 03/14/24 15:36 Urine Color Yellow (Yellow) 03/14/24 15:40 Urine Appearance Clear (CLEAR) 03/14/24 15:40 Urine pH 5.5 (5-7) 03/14/24 15:40 Ur Specific Rigby 1.019 (1.005-1.030) 03/14/24 15:40 Urine Protein 2+ (Negative) A 03/14/24 15:40 Urine Glucose (UA) 3+ (Normal) H 03/14/24 15:40 Urine Ketones Negative (Negative) 03/14/24 15:40 Urine Blood 1+ (Negative) A 03/14/24 15:40 Urine Nitrate Negative (Negative) 03/14/24 15:40 Urine Bilirubin Negative (Negative) 03/14/24 15:40 Urine Urobilinogen 0.2 mg/dL (Negative) 03/14/24 15:40 Ur Leukocyte Esterase Trace (Negative) A 03/14/24 15:40 Urine RBC 51-100 /hpf (0-2) H 03/14/24 15:40 Urine WBC 11-20 /hpf (0-5) H 03/14/24 15:40 Ur Squamous Epith Cells 0-5 /hpf (0-5) 03/14/24 15:40 Amorphous Sediment Not Reportable 03/14/24 15:40 Urine Bacteria None seen /hpf (NONE) 03/14/24 15:40 Hyaline Casts 2.46 /lpf 03/14/24 15:40 Urine Yeast 3+ /hpf H 03/14/24 15:40 All radiology interpretation(s) finalized by discharge Discharge Plan Discharge Patient Disposition: Home Clinical Impression: Acute UTI Condition: Stable Prescriptions: New fluconazole 100 mg tablet 100 mg PO DAILY Qty: 7 0RF cephalexin 500 mg tablet 500 mg PO TID 7 Days Qty: 21 0RF No Action (DME) ottobock afo to right See Rx Instructions .Route .MEDSUPPLY Qty: 1 0RF Rx Instructions: As directed by [employer] (DME) Diabetic Shoes with 3 pairs of inserts See Rx Instructions .ROUTE .MEDSUPPLY Qty: 1 0RF Rx Instructions: As directed by [employer] [facility] [employer] insulin aspart U-100 [Novolog U-100 Insulin aspart] 100 unit/mL solution 12 unit SUBCUT .WITH MEALS Qty: 10 1RF Rx Instructions: TID (DME) Silver Alginate Dressing and 2 Layer Compression System Wraps See Rx Instructions .Route .MEDSUPPLY Qty: 1 0RF Rx Instructions: Dressing supplies needed for 30 days with 3 Refills (DME) 2 Layer Compression Bandage System- Coflex TLC LITE Calamine with Indicators 4 in x6 yard/4 in by 7 yard See Rx Instructions .Route .MEDSUPPLY Qty: 1 0RF Rx Instructions: 32 boxes needed for 3 months Compression 20 to 30 mmHg- Ref. # [id number] allopurinol 300 mg Tablet 300 mg PO DAILY@08 polyethylene glycol 3350 [Miralax] 17 gram/dose Powder 17 g PO DAILY@08 duloxetine 30 mg Capsule,Delayed Release(Dr/Ec) 30 mg PO DAILY@08 magnesium oxide 400 mg magnesium Tablet 400 mg PO DAILY@08 nitroglycerin [Nitrostat] 0.4 mg Tablet, Sublingual 0.4 mg SUBLINGUAL Q5M PRN (Reason: Chest Pain) Rx Instructions: do not exceed 3 doses per episode insulin glargine [Lantus U-100 Insulin] 100 unit/mL solution 50 unit SUBCUT BEDTIME tamsulosin 0.4 mg capsule 0.4 mg PO QPM finasteride 5 mg tablet 5 mg PO DAILY@08 Eliquis 5 mg tablet 5 mg PO BID@08,20 empagliflozin 25 mg Tablet 25 mg PO DAILY zinc oxide 20 % Ointment See Rx Instructions .ROUTE .COMPLEX PRN (Reason: Skin Irritation) Rx Instructions: Mix 50/50 with mupirocin ointment and apply to wound of buttocks twice daily. potassium chloride 20 mEq tablet,ER particles/crystals 20 meq PO BID hydrochlorothiazide 25 mg tablet 25 mg PO DAILY mupirocin 2 % Ointment 1 applic TOPICAL BID losartan 100 mg tablet 100 mg PO DAILY rosuvastatin 10 mg tablet 10 mg PO QPM oxycodone 10 mg Tablet 10 mg PO Q4H PRN (Reason: Pain) cholecalciferol (vitamin D3) [Vitamin D3] 50 mcg (2,000 unit) Tablet 50 mcg PO DAILY isosorbide mononitrate 20 mg Tablet 20 mg PO BID Qty: 60 0RF sennosides-docusate sodium [Stool Softener-Laxative] 8.6-50 mg Tablet 1 tab PO DAILY Qty: 30 0RF amlodipine 10 mg Tablet 10 mg PO DAILY Qty: 30 0RF furosemide 40 mg Tablet See Rx Instructions .ROUTE .COMPLEX Rx Instructions: Take by mouth 40mg+20mg=60mg every am , Then take 40mg in the pm. bisacodyl [Dulcolax (bisacodyl)] 10 mg Suppository 10 mg DE DAILY PRN (Reason: Constipation) Multi-Kristi (with folic acid) 18-400 mg-mcg Tablet 1 tab PO QAM honey 80 % Gel 1 applic TOPICAL BID Tubersol 5 tub. unit /0.1 mL Solution 1 tb unit INTRADERMAL ONCE doxycycline hyclate 100 mg capsule 100 mg PO BID amoxicillin-pot clavulanate 875-125 mg Tablet 1 tab PO BID Trulicity 3 mg/0.5 mL Pen Injector 3 mg SUBCUT Q7D furosemide [Lasix] 20 mg tablet See Rx Instructions .ROUTE .COMPLEX Rx Instructions: Take by Mouth 20mg+ 40mg = 60 mg in am pentoxifylline 400 mg Tablet Extended Release 400 mg PO BID pregabalin [Lyrica] 300 mg Capsule 300 mg PO BID@08,20 acetaminophen 325 mg Tablet 650 mg PO QID PRN (Reason: pain or temp) Discharge Orders: Discharge ED (Routine); Ordered 03/14/24 Ordered By: Jeny Cervantes Referrals: Jessica Bui MD [Primary Care Provider] - Discharge Diet: Usual diet Discharge Activity: Increase activity as tolerated Patient Instructions: Altered Mental Status (ED), Urinary Tract Infection in Older Adults (ED), Opioid Safety, Pain Management Activity Restrictions/Additional Instructions: Thank you for choosing [facility] for your healthcare needs today. Please realize this is an emergency room and that we are providing you with a medical screening exam and this may not be complete and all inclusive of all the testing and or work up that you may need to determine your ailment or severity of your illness. You have been screened and evaluated and felt safe for discharge. Health conditions do change or evolve sometimes and as such it is important that you follow up with your Primary Doctor to be re checked, 3-5 days is a general good time frame for follow up. You are always welcome to return to the ED for re assessment if your symptoms are worsening or you have new concerns Coding Level of Care Code ED Pot Room Supervisor for Yris Tee
[2024-03-14 17:39] LABS: Lactic Sepsis W/Reflex 1.3 mmol/L (0.5-2.2)
--- NOTE | 2024-03-14 17:48 | ECG_ITS ---
[facility]: [facility]14 Pat Name: Giles Guillaume Department: Room: Gender: Male Junior Web Designer: : 1950 Requested By: Roberto Briggs Order Number: [id number] Shelton MD: Refugio Kraus M.D. Measurements Intervals [place] Rate: 60 P: 0 OR: 0 QRS: -74 QRSD: 202 T: 99 QT: 582 QTc: 582 Interpretive Statements ELECTRONIC VENTRICULAR PACEMAKER PROLONGED QT INTERVAL CRITICAL TEST RESULT Compared to ECG 03/14/2024 15:33:37 Prolonged QT interval now present Electronically Signed On 03-14-2024 19:36:59 CURLING MACHINE OPERATOR by Refugio Kraus M.D. [email or web address]
[2024-03-14 18:23] LABS: Troponin 5 2HR 87.28 ng/L (0-15)
[2024-03-14 18:36] LABS: Troponin 5 2HR Delta -6.72 ABS# (0-10)
[2024-03-14] MEDS: cefTRIAXone 1,000 mg SDV 1000 MG IVP (20:27)
[2024-03-14] MEDS: fluconazole premix 100 MG in empty flexible container 1 EACH 50 MG IV (20:29)
== END 2024-03-14 23:21 | disposition home or self-care (01) ==
PROVIDERS: Family Medicine; Emergency Provider Emergency Medicine; PCP Family Medicine
DX: Z79.01 Long term (current) use of anticoagulants (principal); Z87.891 Personal history of nicotine dependence; Z86.73 Personal history of transient ischemic attack (TIA), and cerebral infarction without residual deficits; E11.22 Type 2 diabetes mellitus with diabetic chronic kidney disease; I13.0 Hypertensive heart and chronic kidney disease with heart failure and stage 1 through stage 4 chronic kidney disease, or unspecified chronic kidney disease; N18.9 Chronic kidney disease, unspecified; I50.32 Chronic diastolic (congestive) heart failure; E78.5 Hyperlipidemia, unspecified
CPT/HCPCS: 36415; 51798; 70450; 71045; 74176; 80053; 81001; 82550; 83605; 83735; 84484; 85025; 87040; 87086; 87106; 93005; 96365; 96375; 99285; J0696; J1450

== ENCOUNTER 2024-05-03 17:43 | Inpatient (IN) | payer OTHER, SELFPAY ==
[2024-05-03] VITALS (13 sets, daily range): BP systolic 104–184; BP diastolic 53–95; PULSE 60–93; RESP 17–25; TEMP 37.7–38.9; O2SAT 91–99
--- NOTE | 2024-05-03 17:47 | XRR_ITS ---
PROCEDURE INFORMATION: Exam: XR Chest Exam date and time: 05/03/2024 5:53 PM Age: 74 years old Clinical indication: Other: Weakjness; Prior surgery; Surgery date: 6+ months; Surgery type: Pacer; Additional info: Weakness TECHNIQUE: Imaging protocol: Radiologic exam of the chest. Views: 1 view. COMPARISON: CR XR chest 1V portable [id number] 03/14/2024 3:38 PM FINDINGS: Tubes, catheters and devices: Pacemaker is noted. Lungs: There is increased density at the retrocardiac left lung base which could be related to atelectasis or infiltrate. Previously seen atelectasis in the right mid to lower lung zone has resolved. Pleural spaces: There is increased density at the left lung base which could be partly related to left pleural effusion. No significant right-sided pleural effusion. Heart/Mediastinum: There is stable enlargement of the cardiomediastinal silhouette. Bones/joints: Intact. Other findings: None. XR/XR chest 1V portable [id number] IMPRESSION: 1. Increased density at the retrocardiac left lung base which could represent atelectasis, infiltrate, and/or pleural effusion. Evaluation is limited due to the patient's body habitus and overlying soft tissues. Follow-up PA and lateral radiographs may be helpful for further evaluation. 2. Stable cardiomegaly with pacemaker in place.
--- NOTE | 2024-05-03 18:01 | ECG_ITS ---
[facility]: 2024-[facility]03 Pat Name: Giles Guillaume Department: Room: Gender: Male Rn Clinical Review: : 1950 Requested By: Jeny Briggs Order Number: [id number] Peoples MD: Kervin Segundo M.D. Measurements Intervals [place] Rate: 76 P: 0 WA: 0 QRS: -73 QRSD: 174 T: 92 QT: 449 QTc: 508 Interpretive Statements ELECTRONIC VENTRICULAR PACEMAKER Compared to ECG 03/14/2024 17:48:34 Prolonged QT interval no longer present Electronically Signed On 05-05-2024 22:02:17 AREA SUPERVISOR by Kervin Segundo M.D. [email or web address]
[2024-05-03 18:06] LABS: ABG PCO2 46.4 mmHg (35-45); ABG PH Result 7.42 (7.35-7.45); Alveolar-Arterial Oxygen Gradi 5.1 mmHg (5-10); Arterial Blood Gas Hematocrit 43.1 % (42-52); Base Excess ABG 4.8 mmol/L (-2.0-2.0); Blood Gas Allen Test Pos; Blood Gas Operator Identificat WALCI; Blood Gas Sample Site Radial, right; Blood Gas Sample Type Arterial; Carboxyhemoglobin 1.5 %THgb (0.4-20.1); HCO3 ABG 30.2 mmol/L (22-26); HGB O2 Sat 87.8 % (95-100); Ionized Calcium Level - ABG 1.1 mmol/L (1.1-1.4); Methemoglobin 0.9 % (0.4-1.5); Oxygen Device NC; Oxygen Saturation ABG 89.9; PO2 ABG 54.9 mmHg (80.0-100.0); Potassium Level - ABG 3.6 mmol/L (3.5-5.0); Total Hemoglobin 14.1 g/dL (14-18)
[2024-05-03 18:23] LABS: Basophils % 0.3 %; Hematocrit 44.9 % (37-53); Lymphocytes # 1.6 10^3/uL (0.8-4.8); Lymphocytes % 15.2 %; Mean Corpuscular HGB Conc 31.4 g/dL (30-55); Mean Corpuscular Hemoglobin 27.6 pg (27-33); Mean Corpuscular Volume 87.9 fl (82-101); Mean Platelet Volume 10.5 fL (7.4-10.4); Monocytes % 9.1 %; Neutrophils # 8.04 10^3/uL (1.8-7.7); Nucleated Red Blood Cells % 0 %; Platelet Count 184 10^3/cmm (157-399); Red Blood Count 5.11 10^6/uL (3.85-5.65); White Blood Count 10.72 10^3/uL (3.29-11.43)
--- NOTE | 2024-05-03 18:24 | W.ED.AMS ---
HPI - Altered Mental Status General: Chief Complaint: Altered Mental Status Stated Complaint: AMS,Sepsis Time Seen by Provider: 05/03/24 18:00 History of Present Illness: Patient resting home with complaint shortness of breath. Patient is currently on 5 L of oxygen per nasal cannula with an O2 sat of 93%. He says been feeling bad for about the last 3 weeks and been going downhill. Patient normally does not require oxygen. Family reported increased weakness over the past several days. Patient does have dependent edema in both lower extremities. Patient has history of A-fib, chronic kidney disease, CHF, gout, pacemaker, accelerated hypertension, rhabdo, CAD, PAD, diabetic neuropathy, Related Data Home Medications ?Medication ?Instructions ?Recorded ?Confirmed pentoxifylline 400 mg 400 mg PO BID 08/14/22 03/14/24 tablet,extended release pregabalin 300 mg capsule (Lyrica) 300 mg PO BID@,08/14/22 03/14/24 allopurinol 300 mg tablet 300 mg PO DAILY@12/19/22 03/14/24 duloxetine 30 mg capsule,delayed 30 mg PO DAILY@12/19/22 03/14/24 release magnesium oxide 400 mg PO DAILY@12/19/22 03/14/24 polyethylene glycol 3350 17 17 g PO DAILY@12/19/22 03/14/24 gram/dose oral powder (Miralax) acetaminophen 325 mg tablet 650 mg PO QID PRN pain or temp 04/01/23 03/14/24 apixaban 5 mg tablet (Eliquis) 5 mg PO BID@04/19/23 03/14/24 finasteride 5 mg tablet 5 mg PO DAILY@04/19/23 03/14/24 insulin glargine 100 unit/mL 50 unit SUBCUT BEDTIME 04/19/23 03/14/24 subcutaneous solution (Lantus U-100 Insulin) nitroglycerin 0.4 mg sublingual 0.4 mg sublingual Q5M PRN Chest 04/19/23 03/14/24 tablet (Nitrostat) Pain tamsulosin 0.4 mg capsule 0.4 mg PO QPM 04/19/23 03/14/24 empagliflozin 25 mg tablet 25 mg PO DAILY 03/07/24 03/14/24 cholecalciferol (vitamin D3) 50 50 mcg PO DAILY 03/08/24 03/14/24 mcg (2,000 unit) tablet (Vitamin D3) hydrochlorothiazide 25 mg tablet 25 mg PO DAILY 03/08/24 03/14/24 losartan 100 mg tablet 100 mg PO DAILY 03/08/24 03/14/24 mupirocin 2 % topical ointment 1 applic topical BID 03/08/24 03/14/24 oxycodone 10 mg tablet 10 mg PO Q4H PRN Pain 03/08/24 03/14/24 potassium chloride 20 mEq 20 meq PO BID 03/08/24 03/14/24 tablet,extended release(part/cryst) rosuvastatin 10 mg tablet 10 mg PO QPM 03/08/24 03/14/24 zinc oxide 20 % topical ointment See Rx Instructions .Route 03/08/24 03/14/24 .COMPLEX PRN Skin Irritation amoxicillin 875 mg-potassium 1 tab PO BID 03/14/24 03/14/24 clavulanate 125 mg tablet bisacodyl 10 mg rectal suppository 10 mg NV DAILY PRN Constipation 03/14/24 03/14/24 (Dulcolax (bisacodyl)) doxycycline hyclate 100 mg capsule 100 mg PO BID 03/14/24 03/14/24 dulaglutide 3 mg/0.5 mL 3 mg SUBCUT Q7D 03/14/24 03/14/24 subcutaneous pen injector (Trulicity) furosemide 20 mg tablet (Lasix) See Rx Instructions .Route .COMPLEX 03/14/24 03/14/24 furosemide 40 mg tablet See Rx Instructions .Route .COMPLEX 03/14/24 03/14/24 honey 80 % topical gel 1 applic topical BID 03/14/24 03/14/24 multivitamin-ferrous 1 tab PO QAM 03/14/24 03/14/24 fumarate-folic acid 18 mg-400 mcg tablet tuberculin PPD 5 tub. unit/0.1 mL 1 tb unit intradermal ONCE 03/14/24 03/14/24 intradermal injection solution (Tubersol) Previous Rx's ?Medication ?Instructions ?Recorded [place] afo to right #1 ea 08/05/21 Diabetic Shoes with 3 pairs of #1 ea 06/18/22 inserts Silver Alginate Dressing and 2 #1 ea 08/06/22 Layer Compression System Wraps 2 Layer Compression Bandage #1 ea 01/22/23 System- Coflex TLC LITE Calamine with Indicators 4 in x6 yard/4 in by 7 yard insulin aspart U-100 100 unit/mL 12 unit (0.12 mL) SUBCUT .WITH 09/02/23 subcutaneous solution (Novolog MEALS #10 mL U-100 Insulin aspart) amlodipine 10 mg tablet 10 mg PO DAILY #30 tabs 03/11/24 isosorbide mononitrate 20 mg tablet 20 mg PO BID #60 tabs 03/11/24 sennosides 8.6 mg-docusate sodium 1 tab PO DAILY #30 tabs 03/11/24 50 mg tablet (Stool Softener-Laxative) fluconazole 100 mg tablet 100 mg PO DAILY #7 tabs 03/14/24 Allergies Allergy/AdvReac Type Severity Reaction Status Date / Time aspirin Allergy ALGY-Anaphy Verified 05/03/24 18:04 laxis atorvastatin Allergy Unknown Verified 05/03/24 18:04 carvedilol AdvReac diarrhea Verified 05/03/24 18:04 hydralazine AdvReac vomiting Verified 05/03/24 18:04 Review of Systems General: Reports: 10 or more systems reviewed and unremarkable except in HPI and below PFSH ED PFSH: Medical History Atrial fibrillation Chronic, history of bradycardia with beta blockers, on eliquis Hyperkalemia Cervical radiculopathy Acute kidney injury Weakness Chronic venous insufficiency Benign essential hypertension with target blood pressure below 140/90 Sacroiliitis Hypertension Constipation Gout attack Acute on chronic diastolic (congestive) heart failure Hypokalemia CHF exacerbation Swelling of right upper extremity Atrial fibrillation Peripheral arterial disease CKD (chronic kidney disease) Ischemic toe ulcer Physical deconditioning Bilateral lower leg cellulitis Temporary transvenous cardiac pacemaker present BMI 40.0-44.9, adult Hyperkalemia Squamous cell carcinoma in situ Abnormal nuclear stress test Accelerated hypertension Chronic diastolic heart failure Atrial fibrillation Acute kidney injury Rhabdomyolysis Coronary artery disease Evaluated in [place], patient reports 55% narrowing unknown vessel no stent or angioplasty done PAD (peripheral artery disease) Calculus of proximal ureter Diabetic neuropathy associated with type 2 diabetes mellitus Lumbar foraminal stenosis Bradycardia Nicotine dependence, chewing tobacco, with other nicotine-induced disorders Diabetes mellitus, type II Chronic anticoagulation eliquis Osteoarthritis Obesity BMI-42 kg/m2 Chronic kidney disease Hyperlipidemia Obstructive sleep apnea not on treatment by choice CVA (cerebral vascular accident) residual right weakness Congestive heart failure BPH NOS w/o ur obs/LUTS PVD (peripheral vascular disease) Pes planus of both feet Renal calculus, right Surgical History Hx of colonoscopy with polypectomy Status post cardiac pacemaker procedure No pertinent past surgical history Family History Mother , 87 Diabetes CAD (coronary artery disease) Hypertension Father , 60 No problems noted. Social History Smoking and tobacco/nicotine status: former use of tobacco/nicotine Alcohol intake: former Year of sobriety/quit date alcohol: 25 y Former alcohol use details: heavy use, 5 DWI's Substance/Drug Use: former Household members: none Housing: House Marital status: service: Yes Current occupational status: retired Physical Exam Const: COMMON NORMALS: no acute distress, average body habitus, patient oriented x3, no limitations, healthy appearing, alert and well nourished HENMT: COMMON NORMALS: normocephalic, atraumatic, hearing grossly normal bilaterally, external ears normal, Normal external nose present and moist oral mucous membranes HEAD & SCALP: normocephalic and atraumatic NOSE: Normal external nose present EXTERNAL EAR: Yes external ears normal Neck/C-Spine: COMMON NORMALS: no JVD Chest: COMMONS NORMALS: normal inspection of the chest and normal palpation of entire chest wall Resp: COMMON NORMALS: normal respiratory effort, No retractions and No use of accessory muscles; negative for clear to auscultation bilaterally (Decreased breath sounds bilateral) AUSCULTATION: not clear to auscultation bilaterally (Decreased breath sounds bilateral) Cardio: COMMON NORMALS: no JVD, regular rate, regular rhythm, S1 normal heart sound present, S2 normal heart sound present, No gallops present (Cardio), No clicks present (Cardio) and No murmurs present (Cardio) RATE: regular rate RHYTHM: regular rhythm HEART SOUNDS: S1 normal heart sound present and S2 normal heart sound present GI: COMMON NORMALS: Normal to inspection, nondistended, normoactive bowel sounds present, Soft to palpation, non-tender, No hepatosplenomegaly present and no masses PALPATION: Yes Soft to palpation and Yes No hepatosplenomegaly present OTHER: Morbidly obese Extremity: NARRATIVE EXTREMITY EXAM: 1-2+ pitting edema bilateral lower extremities Neuro: COMMON NORMALS: patient oriented x3 SENSORIUM/ORIENTATION: Yes alert Course Vital Signs: Vital signs: Vital Signs Temperature 99.9 F H 05/03/24 18:00 Pulse Rate 63 05/03/24 19:06 Respiratory Rate 20 H 05/03/24 19:06 Blood Pressure 173/95 05/03/24 19:06 Pulse Oximetry 91 05/03/24 19:06 Oxygen Delivery Me thod Nasal Cannula 05/03/24 19:06 Oxygen Flow Rate 5 05/03/24 18:04 MDM - Altered Mental Status Medical Decision Making Patient was not given septic bolus in the ER due to elevated BNP, elevated creatinine, and bilateral pretibial edema White count 10.7, BUN/creatinine eighteen 1.6, chest x-ray showed possible atelectasis versus infiltrate pleural effusion at the left lung base, lactic acid 2.5, BNP 5455, patient continued to need 5 L of oxygen per nasal cannula to keep his oxygen saturation above 90%, patient is not normally on oxygen. Patient was very hypertensive he ended getting clonidine 0.2 mg p.o., Zosyn 3.375 g IV, patient declined Tylenol for his temperature of 99.9. These results was discussed with the patient. We informed the patient we should admit him for further evaluation treatment. Discussed case with Dr. Douglas, Who agreed to place patient inpatient for further evaluation treatment Medical Records I reviewed the patient's medical records. Lab Data I reviewed the patient's lab results. 05/03/24 18:10 05/03/24 18:10 Radiology Impressions Chest X-Ray 05/03/24 17:47 IMPRESSION: 1. Increased density at the retrocardiac left lung base which could represent atelectasis, infiltrate, and/or pleural effusion. Evaluation is limited due to the patient's body habitus and overlying soft tissues. Follow-up PA and lateral radiographs may be helpful for further evaluation. 2. Stable cardiomegaly with pacemaker in place. Laboratory Results WBC 10.72 10^3/uL (3.29-11.43) 05/03/24 18:10 RBC 5.11 10^6/uL (3.85-5.65) 05/03/24 18:10 Hgb 14.10 g/dL (11.27-16.99) 05/03/24 18:10 Hct 44.9 % (37-53) 05/03/24 18:10 MCV 87.9 fl (82-101) 05/03/24 18:10 MCH 27.6 pg (27-33) 05/03/24 18:10 MCHC 31.4 g/dL (30-55) 05/03/24 18:10 RDW 15.0 % (12.1-15.1) 05/03/24 18:10 Plt Count 184 10^3/cmm (157-399) 05/03/24 18:10 MPV 10.5 fL (7.4-10.4) H 05/03/24 18:10 Neut % (Auto) 75.0 % 05/03/24 18:10 Lymph % (Auto) 15.2 % 05/03/24 18:10 [place] % (Auto) 9.1 % 05/03/24 18:10 Eos % (Auto) 0.0 % 05/03/24 18:10 Baso % (Auto) 0.3 % 05/03/24 18:10 Neut # (Auto) 8.04 10^3/uL (1.8-7.7) H 05/03/24 18:10 Lymph # (Auto) 1.6 10^3/uL (0.8-4.8) 05/03/24 18:10 [place] # (Auto) 1.0 10^3/uL (0.2-0.9) H 05/03/24 18:10 Eos # (Auto) 0.0 10^3/uL (0.0-0.8) 05/03/24 18:10 Baso # (Auto) 0.0 10^3/uL (0.0-0.1) 05/03/24 18:10 Nucleated RBC % (auto) 0 % 05/03/24 18:10 Nucleated RBCs # 0.0 /100WBC 05/03/24 18:10 Specimen Type Arterial 05/03/24 17:55 Sample Site Radial, right 05/03/24 17:55 ABG pH 7.42 (7.35-7.45) 05/03/24 17:55 ABG pCO2 46.4 mmHg (35-45) H 05/03/24 17:55 ABG pO2 54.9 mmHg (80.0-100.0) L 05/03/24 17:55 ABG HCO3 30.2 mmol/L (22-26) H 05/03/24 17:55 ABG O2 Saturation 89.9 05/03/24 17:55 ABG Base Excess 4.8 mmol/L (-2.0-2.0) H 05/03/24 17:55 Judd Test Pos 05/03/24 17:55 A-a O2 Gradient 5.1 mmHg (5-10) 05/03/24 17:55 Hematocrit 43.1 % (42-52) 05/03/24 17:55 Hgb O2 Saturation 87.8 % (95-100) L 05/03/24 17:55 Carboxyhemoglobin 1.5 %THgb (0.4-20.1) 05/03/24 17:55 Methemoglobin 0.9 % (0.4-1.5) 05/03/24 17:55 Total Hemoglobin 14.1 g/dL (14-18) 05/03/24 17:55 Sodium 143.0 mmol/L (131-143) 05/03/24 17:55 Potassium 3.6 mmol/L (3.5-5.0) 05/03/24 17:55 Glucose 235.0 mg/dL (70-115) H 05/03/24 17:55 Ionized Calcium 1.1 mmol/L (1.1-1.4) 05/03/24 17:55 O2 Delivery Device Nc 05/03/24 17:55 O2 Liters/Min 5.0 % 05/03/24 17:55 [employer] ID [place] 05/03/24 17:55 Sodium 145 mmol/L (136-145) 05/03/24 18:10 Potassium 4.0 mmol/L (3.5-5.1) 05/03/24 18:10 Chloride 103 mmol/L (98-107) 05/03/24 18:10 Carbon Dioxide 28 mmol/L (22-29) 05/03/24 18:10 Anion Gap 18.0 (5-19) 05/03/24 18:10 BUN 18 mg/dL (8-23) 05/03/24 18:10 Creatinine 1.6 mg/dL (0.7-1.2) H 05/03/24 18:10 GFR Calculation Not Reportable 05/03/24 18:10 Glucose 226 mg/dL (65-115) H 05/03/24 18:10 Calculated Osmolality 309 mOsm/kg (285-295) H 05/03/24 18:10 Lactic Acid 2.5 mmol/L (0.5-2.2) H 05/03/24 18:10 Calcium 8.4 mg/dL (8.5-10.5) L 05/03/24 18:10 Magnesium 2.2 mg/dL (1.7-2.3) 05/03/24 18:10 Total Bilirubin 0.8 mg/dL (0.15-1.2) 05/03/24 18:10 AST 52 U/L (0-40) H 05/03/24 18:10 ALT 16 U/L (0-41) 05/03/24 18:10 Alkaline Phosphatase 76 U/L (40-130) 05/03/24 18:10 Troponin T Baseline 124 ng/L (0-15) H* 05/03/24 18:10 NT-Pro-B Natriuret Pep 5455 pg/mL (0-450) H 05/03/24 18:10 Total Protein 5.9 g/dL (6.6-8.7) L 05/03/24 18:10 Albumin 3.7 g/dL (3.5-5.2) 05/03/24 18:10 Globulin 2.2 g/dL (1.3-4.6) 05/03/24 18:10 Procalcitonin 0.34 ng/mL (0-0.5) 05/03/24 18:10 Urine Color Yellow (Yellow) 05/03/24 18:51 Urine Appearance Clear (CLEAR) 05/03/24 18:51 Urine pH 5.5 (5-7) 05/03/24 18:51 Ur Specific [place] 1.018 (1.005-1.030) 05/03/24 18:51 Urine Protein 3+ (Negative) A 05/03/24 18:51 Urine Glucose (UA) 3+ (Normal) H 05/03/24 18:51 Urine Ketones Negative (Negative) 05/03/24 18:51 Urine Blood 3+ (Negative) A 05/03/24 18:51 Urine Nitrate Negative (Negative) 05/03/24 18:51 Urine Bilirubin Negative (Negative) 05/03/24 18:51 Urine Urobilinogen 0.2 mg/dL (Negative) 05/03/24 18:51 Ur Leukocyte Esterase Negative (Negative) 05/03/24 18:51 Urine RBC 0-2 /hpf (0-2) 05/03/24 18:51 Urine WBC 0-5 /hpf (0-5) 05/03/24 18:51 Ur Squamous Epith Cells 0-5 /hpf (0-5) 05/03/24 18:51 Amorphous Sediment Not Reportable 05/03/24 18:51 Urine Bacteria None seen /hpf (NONE) 05/03/24 18:51 Hyaline Casts 5.77 /lpf 05/03/24 18:51 Coronavirus (PCR) Negative (Negative) 05/03/24 18:00 Influenza A (PCR) Negative (Negative) 05/03/24 18:00 Influenza Type B (PCR) Negative (Negative) 05/03/24 18:00 RSV (PCR) Positive (Negative) A 05/03/24 18:00 All radiology interpretation(s) finalized by discharge Discharge Plan Discharge Patient Disposition: Admitted As Inpatient Clinical Impression: Acute hypoxemic respiratory failure RSV infection Qualifiers: RSV infection type: unspecified Qualified Code(s): B33.8 - Other specified viral diseases Condition: Stable Coding Level of Care Code ED Cmo & President for Yris Tee
--- NOTE | 2024-05-03 18:32 | PC.NURSE ---
PT REFUSED TYLENOL STATING IT UPSETS MY STOMACH ASKED PT IF HE WOULD TAKE MOTRIN FOR HIS FEVER INSTEAD AND HE DECLINED THAT WELL. OFFERED TO GIVE PT NAUSEA MEDS WITH THE MEDICATION AND PT DECLINED. PHYSICIAN NOTIFIED
[2024-05-03 18:44] LABS: Lactic Sepsis W/Reflex 2.5 mmol/L (0.5-2.2); Troponin(5th) Baseline 124 ng/L (0-15)
[2024-05-03 18:54] LABS: Magnesium 2.2 mg/dL (1.7-2.3); NT Pro B Type Natriuretic Pept 5455 pg/mL (0-450); Procalcitonin 0.34 ng/mL (0-0.5)
[2024-05-03 19:01] LABS: Influenza A NEGATIVE (Negative); Influenza B NEGATIVE (Negative); SARS-CoV-2 PCR NEGATIVE (Negative)
[2024-05-03 19:03] LABS: Bilirubin Urine Negative (Negative); Blood Urine 3+ (Negative); Glucose Urine UA 3+ (Normal); Ketones Urine Negative (Negative); Leukocyte Esterase Urine Negative (Negative); Nitrate Urine Negative (Negative); Protein Urine 3+ (Negative); Specific Gravity, Urine 1.018 (1.005-1.030); Urine Appearance Clear (CLEAR); Urine Color Yellow (Yellow); Urobilinogen Urine 0.2 mg/dL (Negative); pH Urine 5.5 (5-7)
[2024-05-03 19:05] LABS: Bacteria Urine None Seen /hpf; Hyaline Casts Urine 5.77 /lpf; RBC Urine 0-2 /hpf (0-2); Squamous Epithelial Cell Urine 0-5 /hpf (0-5); WBC Urine 0-5 /hpf (0-5)
[2024-05-03 19:06] LABS: Alanine Aminotransferase 16 U/L (0-41); Albumin Level 3.7 g/dL (3.5-5.2); Alkaline Phosphatase 76 U/L (40-130); Aspartate Amino Transferase 52 U/L (0-40); Blood Urea Nitrogen 18 mg/dL (8-23); Calcium 8.4 mg/dL (8.5-10.5); Carbon Dioxide 28 mmol/L (22-29); Chloride 103 mmol/L (98-107); Creatinine Clr Calc Pharmacy 52.6428; Globulin 2.2 g/dL (1.3-4.6); Glucose 226 mg/dL (65-115); Osmolality Calculated 309 mOsm/kg (285-295); Sodium 145 mmol/L (136-145); Total Bilirubin 0.8 mg/dL (0.15-1.2); Total Protein 5.9 g/dL (6.6-8.7)
[2024-05-03 19:13] LABS: Add Urine Culture? No
[2024-05-03 19:14] LABS: Respiratory Syncytial Virus Ce POSITIVE (Negative)
--- NOTE | 2024-05-03 19:48 | ECG_ITS ---
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 Measurements Intervals [place] Rate: 61 P: 0 WI: 0 QRS: -72 QRSD: 185 T: 82 QT: 459 QTc: 464 Interpretive Statements ELECTRONIC VENTRICULAR PACEMAKER Compared to ECG 05/03/2024 18:01:00 No significant changes Electronically Signed On 05-05-2024 22:20:34 [employer] SALESPERSON by Kervin Segundo M.D. [email or web address]
[2024-05-03 20:03] LABS: Reflex Lactate Order REFLEX LACTIC ORDERD
[2024-05-03] MEDS: cloNIDine 0.1 mg Tablet 0.2 MG PO (20:44)
[2024-05-03] MEDS: piperacillin-tazobactam 3.375 GM in sodium chloride 0.9% (plus) 50 ML IV (20:45)
--- NOTE | 2024-05-03 20:57 | PM.HP ---
Providers/Chief Complaint Admitting Physician: Nik Douglas MD Primary Care Provider: Jessica Bui MD Chief Complaint: AMS,Sepsis History of Present Illness Giles Guillaume is a 74 year old male with history of A-fib with pacemaker, chronic anticoagulation with Eliquis, chronic kidney disease, degenerative joint disease of spine, systolic CHF, EF 30%, was recently discharged to a alf after management of CHF, presenting back with worsening of his symptoms such as edema, bilateral lower extremity swelling, shortness of breath. Patient was put on 5 L nasal cannula by the EMS, he has clinical picture of anasarca, not a good historian. Patient is stating that he has been sick for quite some time, endorsing subjective fever, he is not a reliable historian at all. He is not endorsing any significant chest pain, he is somnolent, falling asleep while conversation. ABG requested which showed compensated pH with mild hypercapnia. Patient was on 5 L nasal cannula, I requested Santo catheter placement, high dose of Lasix, initiation of BiPAP and transfer to ICU. I called his family, spoke with his nephew Dennys: Dennys was not aware that his uncle was getting admitted, he will be here around noon in the morning, Dennys is stating that his uncle was about to do a new advance directive/living well. He is not sure if he ever articulated about changing goals of care. Review of records revealed that patient was not interested to change or discuss goals of care, he was kept full code. RSV positive X-ray consistent with CHF, pleural effusion Patient was started on ACS protocol, he takes Eliquis at baseline, he was started on therapeutic once daily regimen of Lovenox, EKG without ischemic or infarctive changes, troponin trending up Patient not a candidate to receive IV fluids secondary to significant anasarca lactic acid 2.5, creatinine 1.6 Patient is hypertensive Most likely high lactic acid is due to increased work of breathing Patient is showing signs abdominal breathing Review of Systems General: Reports: ROS unobtainable due to mental status Medications/Allergies Home Medications ?Medication ?Instructions ?Recorded ?Confirmed ?Last Taken ?Type ottobock afo to right #1 ea 08/05/21 03/14/24 Unknown Rx Diabetic Shoes with 3 pairs of #1 ea 06/18/22 03/14/24 Unknown Rx inserts Silver Alginate Dressing and 2 #1 ea 08/06/22 03/14/24 Unknown Rx Layer Compression System Wraps pentoxifylline 400 mg 400 mg PO BID 08/14/22 03/14/24 03/14/24 10:45 History tablet,extended release pregabalin 300 mg capsule (Lyrica) 300 mg PO BID@08,08/14/22 03/14/24 03/14/24 10:45 History allopurinol 300 mg tablet 300 mg PO DAILY@12/19/22 03/14/24 03/14/24 10:45 History duloxetine 30 mg capsule,delayed 30 mg PO DAILY@12/19/22 03/14/24 03/14/24 10:45 History release magnesium oxide 400 mg PO DAILY@12/19/22 03/14/24 03/14/24 10:45 History polyethylene glycol 3350 17 17 g PO DAILY@12/19/22 03/14/24 03/14/24 10:45 History gram/dose oral powder (Miralax) 2 Layer Compression Bandage #1 ea 01/22/23 03/14/24 Unknown Rx System- Coflex TLC LITE Calamine with Indicators 4 in x6 yard/4 in by 7 yard acetaminophen 325 mg tablet 650 mg PO QID PRN pain or temp 04/01/23 03/14/24 Unknown History apixaban 5 mg tablet (Eliquis) 5 mg PO BID@08,20 04/19/23 03/14/24 03/14/24 10:45 History finasteride 5 mg tablet 5 mg PO DAILY@04/19/23 03/14/24 03/14/24 10:45 History insulin glargine 100 unit/mL 50 unit SUBCUT BEDTIME 04/19/23 03/14/24 03/13/24 14:10 History subcutaneous solution (Lantus U-100 Insulin) nitroglycerin 0.4 mg sublingual 0.4 mg sublingual Q5M PRN Chest 04/19/23 03/14/24 Unknown History tablet (Nitrostat) Pain tamsulosin 0.4 mg capsule 0.4 mg PO QPM 04/19/23 03/14/24 03/13/24 22:10 History insulin aspart U-100 100 unit/mL 12 unit (0.12 mL) SUBCUT .WITH 09/02/23 03/14/24 03/14/24 13:45 Rx subcutaneous solution (Novolog MEALS #10 mL U-100 Insulin aspart) empagliflozin 25 mg tablet 25 mg PO DAILY 03/07/24 03/14/24 03/14/24 10:45 History cholecalciferol (vitamin D3) 50 50 mcg PO DAILY 03/08/24 03/14/24 03/14/24 10:45 History mcg (2,000 unit) tablet (Vitamin D3) hydrochlorothiazide 25 mg tablet 25 mg PO DAILY 03/08/24 03/14/24 03/14/24 10:45 History losartan 100 mg tablet 100 mg PO DAILY 03/08/24 03/14/24 03/13/24 07:55 History mupirocin 2 % topical ointment 1 applic topical BID 03/08/24 03/14/24 Unknown History oxycodone 10 mg tablet 10 mg PO Q4H PRN Pain 03/08/24 03/14/24 03/13/24 13:05 History potassium chloride 20 mEq 20 meq PO BID 03/08/24 03/14/24 03/14/24 10:45 History tablet,extended release(part/cryst) rosuvastatin 10 mg tablet 10 mg PO QPM 03/08/24 03/14/24 03/14/24 10:45 History zinc oxide 20 % topical ointment See Rx Instructions .Route 03/08/24 03/14/24 Unknown History .COMPLEX PRN Skin Irritation amlodipine 10 mg tablet 10 mg PO DAILY #30 tabs 03/11/24 03/14/24 03/14/24 10:45 Rx isosorbide mononitrate 20 mg tablet 20 mg PO BID #60 tabs 03/11/24 03/14/24 03/14/24 10:45 Rx sennosides 8.6 mg-docusate sodium 1 tab PO DAILY #30 tabs 03/11/24 03/14/24 03/14/24 10:45 Rx 50 mg tablet (Stool Softener-Laxative) amoxicillin 875 mg-potassium 1 tab PO BID 03/14/24 03/14/24 03/13/24 22:10 History clavulanate 125 mg tablet bisacodyl 10 mg rectal suppository 10 mg MT DAILY PRN Constipation 03/14/24 03/14/24 Unknown History (Dulcolax (bisacodyl)) doxycycline hyclate 100 mg capsule 100 mg PO BID 03/14/24 03/14/24 03/13/24 22:10 History dulaglutide 3 mg/0.5 mL 3 mg SUBCUT Q7D 03/14/24 03/14/24 03/14/24 13:45 History subcutaneous pen injector (Trulicity) fluconazole 100 mg tablet 100 mg PO DAILY #7 tabs 03/14/24 Unknown Rx furosemide 20 mg tablet (Lasix) See Rx Instructions .Route .COMPLEX 03/14/24 03/14/24 03/14/24 10:45 History furosemide 40 mg tablet See Rx Instructions .Route .COMPLEX 03/14/24 03/14/24 03/14/24 10:45 History honey 80 % topical gel 1 applic topical BID 03/14/24 03/14/24 03/14/24 10:45 History multivitamin-ferrous 1 tab PO QAM 03/14/24 03/14/24 03/14/24 10:45 History fumarate-folic acid 18 mg-400 mcg tablet tuberculin PPD 5 tub. unit/0.1 mL 1 tb unit intradermal ONCE 03/14/24 03/14/24 03/12/24 12:35 History intradermal injection solution (Tubersol) Allergies Allergy/AdvReac Type Severity Reaction Status Date / Time aspirin Allergy ALGY-Anaphy Verified 05/03/24 18:04 laxis atorvastatin Allergy Unknown Verified 05/03/24 18:04 carvedilol AdvReac diarrhea Verified 05/03/24 18:04 hydralazine AdvReac vomiting Verified 05/03/24 18:04 PFSH Acute PFSH: Medical History Atrial fibrillation Chronic, history of bradycardia with beta blockers, on eliquis Hyperkalemia Cervical radiculopathy Acute kidney injury Weakness Chronic venous insufficiency Benign essential hypertension with target blood pressure below 140/90 Sacroiliitis Hypertension Constipation Gout attack Acute on chronic diastolic (congestive) heart failure Hypokalemia CHF exacerbation Swelling of right upper extremity Atrial fibrillation Peripheral arterial disease CKD (chronic kidney disease) Ischemic toe ulcer Physical deconditioning Bilateral lower leg cellulitis Temporary transvenous cardiac pacemaker present BMI 40.0-44.9, adult Hyperkalemia Squamous cell carcinoma in situ Abnormal nuclear stress test Accelerated hypertension Chronic diastolic heart failure Atrial fibrillation Acute kidney injury Rhabdomyolysis Coronary artery disease Evaluated in [place], patient reports 55% narrowing unknown vessel no stent or angioplasty done PAD (peripheral artery disease) Calculus of proximal ureter Diabetic neuropathy associated with type 2 diabetes mellitus Lumbar foraminal stenosis Bradycardia Nicotine dependence, chewing tobacco, with other nicotine-induced disorders Diabetes mellitus, type II Chronic anticoagulation eliquis Osteoarthritis Obesity BMI-42 kg/m2 Chronic kidney disease Hyperlipidemia Obstructive sleep apnea not on treatment by choice CVA (cerebral vascular accident) residual right weakness Congestive heart failure BPH NOS w/o ur obs/LUTS PVD (peripheral vascular disease) Pes planus of both feet Renal calculus, right Surgical History Hx of colonoscopy with polypectomy Status post cardiac pacemaker procedure No pertinent past surgical history Family History Mother , 87 Diabetes CAD (coronary artery disease) Hypertension Father , 60 No problems noted. Social History Smoking and tobacco/nicotine status: former use of tobacco/nicotine Alcohol intake: former Year of sobriety/quit date alcohol: 25 y Former alcohol use details: heavy use, 5 DWI's Substance/Drug Use: former Household members: none Housing: House Marital status: service: Yes Current occupational status: retired Vitals/I&O/Wt Last Vital Signs Temp 99.9 F H 05/03/24 18:00 Pulse 63 05/03/24 19:06 Resp 20 H 05/03/24 19:06 BP 184/70 05/03/24 20:44 Pulse Ox 91 05/03/24 19:06 O2 Del Method Nasal Cannula 05/03/24 19:06 O2 Flow Rate 5 05/03/24 18:04 Weight last 48 hrs Weight 113.398 kg Physical Exam Narrative: A-fib without RVR Hypertensive Asterixis positive Able to follow verbal commands Drowsy and somnolent I do not see any focal deficit Lower extremity edema, venous stasis dermatitis Nonpurulent cellulitis No vascular compromise Distended abdomen Anasarca S1, S2 variable Currently on 5 L Abdominal breathing No skin mottling Urine continent Patient is confused Data 05/03/24 18:10 05/03/24 18:10 Micro: Microbiology 05/03/24 18:08 Blood Culture - Preliminary Blood SPECIMEN COLLECTED 05/03/24 18:10 Blood Culture - Preliminary Blood SPECIMEN COLLECTED A&P Assessment and plan (1) Congestive heart failure: Qualifiers: Heart failure chronicity: acute on chronic Heart failure type: diastolic Qualified Code(s): I50.33 - Acute on chronic diastolic (congestive) heart failure (2) Abnormal nuclear stress test: (3) Presence of permanent cardiac pacemaker: (4) Atrial fibrillation: (5) Carotid occlusion, bilateral: (6) CKD stage 3 secondary to diabetes: (7) RSV infection: Qualifiers: RSV infection type: unspecified Qualified Code(s): B33.8 - Other specified viral diseases (8) Right foot drop: (9) Diabetic peripheral neuropathy associated with type 2 diabetes mellitus: (10) Acute hypoxemic respiratory failure: (11) Difficulty in walking: (12) Bilateral edema of lower extremity: (13) Metabolic encephalopathy: (14) Sepsis: Plan Metabolic encephalopathy multifactorial Sepsis, urinary retention, pneumonia and RSV Criteria met with tachypnea tachycardia fever high lactic acid endorgan damage Not a candidate to receive septic bolus secondary to anasarca blood culture taken in the ER Patient received antibiotics Concern for hypercapnia, request another ABG, Patient has positive asterixis Transfer to ICU Start BiPAP Retaining urine, Place Santo catheter Concern for aspiration pneumonia Left lower lobe infiltrate Start patient on Zosyn Considering lower extremity cellulitis we will keep him on doxycycline as well Check MRSA nares Non-STEMI: Start ACS protocol Discontinue Eliquis, start patient on once daily therapeutic dose of Lovenox EF is reduced, will need an angiogram for decrease in EF once he is more stable EKG showing paced rhythm At the time of my evaluation patient denied chest pain Reduced ejection fraction heart failure decompensation Start IV diuretics Avoid amlodipine Will use hydralazine and Imdur for blood pressure Chronic kidney disease: Creatinine on baseline Place Santo catheter for urinary retention Questionable compliance with medications, lives alone, nephew was notified, recurrent admissions, deconditioning, recent discharge from alf Patient is full code Start diet once he is more awake and alert Continue BiPAP for now Transfer to ICU Patient is diabetic, will use sliding scale and reduce the Lantus dose to 40 units, instead of 50U PDMP PDMP Reviewed: Not Reviewed Attestations Medical Necessity Statement*: More than 2 midnights anticipated Diagnoses Acute on chronic diastolic congestive heart failure I50.33 Heart failure chronicity: acute on chronic Heart failure type: diastolic Abnormal nuclear stress test R94.39 Presence of permanent cardiac pacemaker Z95.0 Longstanding persistent atrial fibrillation I48.91 Carotid occlusion, bilateral I65.23 CKD stage 3 secondary to diabetes E11.22; N18.30 RSV infection B33.8 RSV infection type: unspecified Right foot drop M21.371 Diabetic peripheral neuropathy associated with type 2 diabetes mellitus E11.42 Acute hypoxemic respiratory failure J96.01 Difficulty in walking R26.2 Bilateral edema of lower extremity R60.0 Metabolic encephalopathy G93.41 Sepsis A41.9
[2024-05-03 21:38] LABS: Troponin 5 2HR Delta 7.6 ABS# (0-10)
[2024-05-03 21:39] LABS: Lactic Acid level (Lactate) 2.5 mmol/L (0.5-2.2)
[2024-05-03] MEDS: ipratropium-albuterol 3 mL Neb INHALATION (21:45)
[2024-05-03 21:49] LABS: Procalcitonin 0.31 ng/mL (0-0.5)
[2024-05-03 21:49] LABS: Troponin 5 2HR 131.6 ng/L (0-15)
[2024-05-03 21:52] LABS: Glucose Point of Care 178 mg/dL (70-110)
[2024-05-03] MEDS: insulin glargine 100 units/1 mL 50 UNIT SUBCUT (22:05)
[2024-05-03] MEDS: insulin lispro 100 unit/1 mL SUBCUT (22:05)
[2024-05-03] MEDS: methylPREDNISolone sod succ 40 mg/mL INJ IVP (22:05)
[2024-05-03] MEDS: isosorbide mononitrate 20 mg Tablet PO (22:05)
[2024-05-03] MEDS: FUROsemide 10 mg/mL SDV 4mL 40 MG IVP (22:37)
[2024-05-03 22:46] LABS: ABG PCO2 45.6 mmHg (35-45); ABG PH Result 7.43 (7.35-7.45); Blood Gas Sample Site Brachial, right; Blood Gas Sample Type Arterial; HCO3 ABG 30.2 mmol/L (22-26); Oxygen Device BIPAP; PO2 ABG 64.7 mmHg (80.0-100.0); PO2 FiO2 Ratio Arterial Blood 143
[2024-05-04] VITALS (87 sets, daily range): BP systolic 86–154; BP diastolic 55–91; PULSE 60–92; RESP 12–31; TEMP 36.4–38.6; O2SAT 89–100
[2024-05-04 00:25] LABS: Troponin 5 6HR 137.4 ng/L (0-15); Troponin 5 6HR Delta 13.4 ng/L (0-12)
--- NOTE | 2024-05-04 01:22 | PC.NURSE ---
Spoke with Dr. Douglas in reference to patient's LOC and concern for swallowing PO medications. Received orders to hold PO meds for now.
[2024-05-04] MEDS: enoxaparin 150 mg/mL Syringe 130 MG SUBCUT ×2 (01:31→12:30)
[2024-05-04] MEDS: piperacillin-tazobactam 3.375 GM in sodium chloride 0.9% (plus) 50 ML IV ×3 (01:32→17:34)
[2024-05-04 04:24] LABS: Basophils % 0.4 %; Lymphocytes # 1.2 10^3/uL (0.8-4.8); Lymphocytes % 10.6 %; Mean Corpuscular HGB Conc 31.2 g/dL (30-55); Mean Corpuscular Hemoglobin 28.1 pg (27-33); Mean Corpuscular Volume 90.1 fl (82-101); Mean Platelet Volume 10.6 fL (7.4-10.4); Monocytes # 0.3 10^3/uL (0.2-0.9); Monocytes % 2.4 %; Neutrophils # 9.68 10^3/uL (1.8-7.7); Neutrophils % 86.1 %; Nucleated Red Blood Cells % 0 %; Platelet Count 159 10^3/cmm (157-399); Red Blood Count 4.66 10^6/uL (3.85-5.65); Red Cell Distribution Width 15.3 % (12.1-15.1); White Blood Count 11.24 10^3/uL (3.29-11.43)
[2024-05-04 04:54] LABS: Anion Gap 14.1 (5-19); Blood Urea Nitrogen 22 mg/dL (8-23); C Reactive Protein 140.9 mg/L (0.0-4.9); Calcium 8.1 mg/dL (8.5-10.5); Carbon Dioxide 29 mmol/L (22-29); Chloride 105 mmol/L (98-107); Creatinine Clr Calc Pharmacy 47.1164; Glucose 205 mg/dL (65-115); Magnesium 2.3 mg/dL (1.7-2.3); Osmolality Calculated 307 mOsm/kg (285-295); Phosphorus 4.9 mg/dL (2.5-4.5); Potassium 4.1 mmol/L (3.5-5.1); Sodium 144 mmol/L (136-145)
[2024-05-04 07:36] LABS: Glucose Point of Care 183 mg/dL (70-110)
[2024-05-04] MEDS: ipratropium-albuterol 3 mL Neb INHALATION ×2 (08:35→13:55)
[2024-05-04] MEDS: FUROsemide 10 mg/mL SDV 4mL 40 MG IVP (08:45)
[2024-05-04] MEDS: insulin lispro 100 unit/1 mL SUBCUT ×3 (08:46→17:33)
--- NOTE | 2024-05-04 08:53 | PC.NURSE ---
Addendum entered by Kojo Ybarra RN 05/04/24 09:20: ABG resulted, nurse alerted Dr orlando, received orders for head ct. Family member is present and said he was discharged from a assisted about a week ago. He normally takes lactulose for high ammonia levels. He never got the prescription renewed at assisted discharge and hasn't had it in a week. Nurse alerted Dr orlando and received orders for ammonia level. Original Note: upon morning assessment, patient was found to have altered mental status. He did come into the ER lethargic, but now he will only grimace to pain despite being on the bipap overnight. Nurse alerted Dr Orlando, received orders for ABG, will consider head CT after abg results.
[2024-05-04 09:09] LABS: ABG PCO2 54.5 mmHg (35-45); ABG PH Result 7.34 (7.35-7.45); Alveolar-Arterial Oxygen Gradi 15.8 mmHg (5-10); Base Excess ABG 2.4 mmol/L (-2.0-2.0); Blood Gas Allen Test Pos; Blood Gas Operator Identificat CAK; Blood Gas Sample Site Radial, left; Blood Gas Sample Type Arterial; Carboxyhemoglobin 1.1 %THgb (0.4-20.1); HCO3 ABG 29.4 mmol/L (22-26); HGB O2 Sat 92.1 % (95-100); Ionized Calcium Level - ABG 1.1 mmol/L (1.1-1.4); Methemoglobin 1.1 % (0.4-1.5); Oxygen Device NC; Oxygen Saturation ABG 94.2; PO2 ABG 69.3 mmHg (80.0-100.0); PO2 FiO2 Ratio Arterial Blood 192; Potassium Level - ABG 3.7 mmol/L (3.5-5.0); Total Hemoglobin 13.4 g/dL (14-18)
--- NOTE | 2024-05-04 09:14 | CT_ITS ---
WS: [id number] CT HEAD NONCONTRAST HISTORY: AMS TECHNIQUE: Contiguous axial imaging performed through the brain. Bone and soft tissue windows. Sagittal and coronal reformats reviewed. All CT scans at [facility] use at least one of these dose optimization techniques: automated exposure control; mA and/or kV adjustment per patient size (includes targeted exams where dose is matched to clinical indication); or iterative reconstruction. DLP: 1212.09 mGy.cm COMPARISON: 03/14/2024 No acute intracranial hemorrhage, midline shift or mass effect. Moderate bilateral cerebral and cerebellar atrophy with mild small vessel changes. No infarct. Ventricles: Normal size with no hydrocephalus. Paranasal sinuses: As visualized are clear. Mastoid air cells: Well pneumatized. Calvarium and scalp: Skull is intact with no soft tissue edema or swelling. CT/CT head wo con* 56460 IMPRESSION: 1. No acute intracranial hemorrhage or edema. 2. Moderate cerebral and cerebellar atrophy with mild small vessel changes. No acute interval change since 03/14/2024.
[2024-05-04] MEDS: doxycycline 100 mg Tablet PO ×2 (10:05→17:33)
[2024-05-04] MEDS: isosorbide mononitrate 20 mg Tablet PO ×2 (10:05→17:33)
[2024-05-04] MEDS: magnesium oxide 400 mg tablet PO (10:05)
[2024-05-04 10:07] LABS: Thyroid Stimulating Hormone 1.06 uIU/mL (0.27-4.20)
--- NOTE | 2024-05-04 10:43 | PC.NURSE ---
While patient was on the CT table, he suddenly woke up. Oriented to person, place, time, and somewhat to the situation. He is upset that someone brought him to the hospital and doesn't want to pay the hospital bill. After getting back to his room he has refused some of his morning meds. He is upset with his niece named kelvin who is the one who called and had him brought to the hospital, he does not want us to discuss his care with her over the phone but says she can still visit. Nurse updated Dr doshi to mental status change.
[2024-05-04 10:51] LABS: Ammonia 17 umol/L (16-60)
[2024-05-04] MEDS: bacitracin ointment 28 gm TOPICAL ×2 (11:17→17:34)
--- NOTE | 2024-05-04 11:34 | PICC.NOTE ---
PICC line no longer clinically indicated. Orders received to cancel PICC per Dr. Orlando.
[2024-05-04 12:36] LABS: Glucose Point of Care 207 mg/dL (70-110)
--- NOTE | 2024-05-04 12:47 | PC.NURSE ---
Patient has been argumentative with nursing staff today. Frequently questioning the appropriateness of medications in a rude manner, and saying we don't know what we are doing even after explaining reasoning for therapies. When this nurse reminds patient that he has the right to refuse medications, he will then agree to receive the medication. Patient is frequently saying he doesn't want to be here and that he is going to leave. This nurse explains that we cannot legally hold him here and if he wishes to leave he is free to do so, but he then takes no action to leave.
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
[2024-05-04 17:31] LABS: Glucose Point of Care 242 mg/dL (70-110)
[2024-05-04] MEDS: hyDRALAzine 25 mg Tablet PO (17:33)
[2024-05-04] MEDS: tamsulosin 0.4 mg Capsule PO (17:33)
--- NOTE | 2024-05-04 19:28 | PC.NURSE ---
Shift Summary: uneventful shift. patient has become more pleasant as the day has gone by. Up to a chair for about 4 hours. At least a 1 person assist, patient uses walker. Since suddenly becoming alert this morning (see previous notes), patient has remained alert and oriented to person, place, time, and situation. CSU overflow
[2024-05-04 20:25] LABS: Glucose Point of Care 258 mg/dL (70-110)
--- NOTE | 2024-05-04 20:26 | PC.NURSE ---
Lantus: Pt is upset that his 40 units Lantus is not scheduled. BG 258. Notified Dr. Douglas @2022. New order to start 40 units Lantus @bedtime.
[2024-05-04] MEDS: insulin glargine 100 units/1 mL 40 UNIT SUBCUT (21:01)
--- NOTE | 2024-05-04 22:08 | PC.NURSE ---
Addendum entered by Marcia Hamilton RN 05/05/24 01:48: BiPAP removed @0147 by Yohana RT. Pt refusing to wear. Addendum entered by Marcia Hamilton RN 05/05/24 00:45: Agreed to wear BiPAP. Applied @0045. Original Note: Refusing BiPAP: Explained purpose and importance of BiPAP mask to pt. Pt has declined to wear BiPAP, states hes not taking his chew out for that. Yohana RT aware. Dr. Douglas notified @9533.
[2024-05-05] VITALS (24 sets, daily range): BP systolic 120–170; BP diastolic 56–92; PULSE 60–73; RESP 8–23; TEMP 36.1–36.7; O2SAT 93–98
--- NOTE | 2024-05-05 00:12 | PC.NURSE ---
Pain: Dr. Douglas notified of 6 back pain and pts home does of oxycodone @0005. New order to start Oxycodone 10mg PO Q4H PRN.
[2024-05-05] MEDS: oxyCODONE 5 mg IR Tab/Cap 10 MG PO ×3 (00:32→17:20)
[2024-05-05] MEDS: enoxaparin 150 mg/mL Syringe 130 MG SUBCUT (00:34)
[2024-05-05] MEDS: piperacillin-tazobactam 3.375 GM in sodium chloride 0.9% (plus) 50 ML IV ×3 (00:36→17:20)
[2024-05-05 04:19] LABS: Basophils % 0.2 %; Hematocrit 36.6 % (37-53); Lymphocytes # 1.7 10^3/uL (0.8-4.8); Lymphocytes % 16.4 %; Mean Corpuscular HGB Conc 31.7 g/dL (30-55); Mean Corpuscular Hemoglobin 28.3 pg (27-33); Mean Corpuscular Volume 89.3 fl (82-101); Monocytes # 0.7 10^3/uL (0.2-0.9); Monocytes % 6.9 %; Neutrophils # 7.79 10^3/uL (1.8-7.7); Neutrophils % 76.1 %; Nucleated Red Blood Cells % 0 %; Platelet Count 144 10^3/cmm (157-399); Red Cell Distribution Width 14.9 % (12.1-15.1); White Blood Count 10.24 10^3/uL (3.29-11.43)
[2024-05-05 04:43] LABS: Alanine Aminotransferase 18 U/L (0-41); Albumin Level 2.9 g/dL (3.5-5.2); Alkaline Phosphatase 70 U/L (40-130); Anion Gap 13.5 (5-19); Aspartate Amino Transferase 38 U/L (0-40); Blood Urea Nitrogen 38 mg/dL (8-23); Carbon Dioxide 31 mmol/L (22-29); Chloride 102 mmol/L (98-107); Creatinine Clr Calc Pharmacy 46.8209; Globulin 2.6 g/dL (1.3-4.6); Glucose 221 mg/dL (65-115); Osmolality Calculated 312 mOsm/kg (285-295); Potassium 3.5 mmol/L (3.5-5.1); Sodium 143 mmol/L (136-145); Total Bilirubin 0.4 mg/dL (0.15-1.2); Total Protein 5.5 g/dL (6.6-8.7)
[2024-05-05 07:55] LABS: Glucose Point of Care 178 mg/dL (70-110)
[2024-05-05] MEDS: isosorbide mononitrate 20 mg Tablet PO ×2 (08:52→17:22)
[2024-05-05] MEDS: doxycycline 100 mg Tablet PO ×2 (08:52→17:21)
[2024-05-05] MEDS: magnesium oxide 400 mg tablet PO (08:52)
[2024-05-05] MEDS: allopurinol 300 mg Tablet PO (08:53)
[2024-05-05] MEDS: clopidogrel 75 mg Tablet PO (08:53)
[2024-05-05] MEDS: polyethylene glycol 3350 Pkt 17 gm PO (08:55)
[2024-05-05] MEDS: hyDRALAzine 25 mg Tablet PO ×2 (08:55→17:21)
[2024-05-05] MEDS: FUROsemide 10 mg/mL SDV 4mL 40 MG IVP (08:55)
[2024-05-05] MEDS: pregabalin 150 mg Capsule 300 MG PO ×2 (08:56→20:58)
[2024-05-05] MEDS: insulin lispro 100 unit/1 mL SUBCUT ×3 (09:00→17:21)
[2024-05-05] MEDS: bacitracin ointment 28 gm TOPICAL ×2 (09:35→17:30)
[2024-05-05] MEDS: ipratropium-albuterol 3 mL Neb INHALATION (09:50)
[2024-05-05 11:08] LABS: Glucose Point of Care 212 mg/dL (70-110)
--- NOTE | 2024-05-05 11:27 | P.PN_ITS ---
Subjective 2 Subjective: Patient feels better today. He is alert awake and oriented. Blood pressure is elevated Medications: Reviewed: Yes Vitals/I&O/Wt Last Vital Signs Temp 97.0 F L 05/05/24 09:00 Pulse 61 05/05/24 10:00 Resp 15 05/05/24 10:00 BP 170/85 05/05/24 10:00 Pulse Ox 97 05/05/24 09:50 O2 Del Method Nasal Cannula 05/05/24 09:50 O2 Flow Rate 2 05/05/24 09:50 FiO2 35 05/05/24 01:42 05/04/24 05/05/24 05/05/24 22:59 06:59 14:59 Intake Total 1430 / 1480 50 / 1530 640 / 640 Output Total 500 / 1200 850 / 2050 Balance 930 / 280 -800 / -520 640 / 640 Weight last 48 hrs Weight 127.233 kg Weight 126.5 kg Weight 128.055 kg Weight 113.398 kg Physical Exam 2 Narrative: General: No acute distress, AO x3 HEENT: PERRLA, pupils bilaterally equal and reactive, pallors not present Chest: Normal vesicular breath sounds, no added sounds, equal good air entry bilaterally CVS: S1-S2 regular, no murmurs, no tachycardia, no gallops, no rubs Abdomen: Soft, nontender, no organomegaly, bowel sounds present Neuro: No focal deficits, no facial deformity, AO x3, power 5/5 in all limbs Extremities: Bilateral lower extremity edema. Multiple small superficial skin tears involving the right anterior ayala. Multiple abrasions and skin tears involving the right great toe on the plantar aspect. Multiple small abrasions involving all toes of the left side. Urinary Catheter Management: Santo: Cath Placed During This Visit: yes Reason for Continuing Indwelling Catheter: Accurate Measurement of Urinary Output in Critically Ill Patients Urinary Catheter Date of Insertion: 05/03/24 Urinary Catheter Time of Insertion: 22:31 Data 05/05/24 03:15 05/05/24 03:15 Micro: Microbiology 05/03/24 18:08 Blood Culture - Preliminary Blood NEGATIVE TO DATE 05/03/24 18:10 Blood Culture - Preliminary Blood NEGATIVE TO DATE A&P Assessment and plan (1) Acute encephalopathy: Currently resolved. Patient presented to the hospital with generalized weakness, altered mental status, confusion which is currently much improved. CT of the head was obtained this morning as patient had been complaining of worsening right lower extremity weakness. There was no acute intracranial hemorrhage or edema. There was noted moderate cerebral and cerebellar atrophic without any interval change since February 2024. (2) Acute and chronic respiratory failure: Acute on chronic hypoxic respiratory failure with some chronic hypercapnia, currently exacerbated due to acute RSV infection and acute on chronic systolic CHF exacerbation. Supplemental O2 to keep saturation close to 90 to 92%. Unlikely PE given patient is on Eliquis 5 mg twice daily chronically. needed to remain on Bipap overnight, continue at night time and prn (3) RSV infection: Acute viral infection with RSV. Supportive management. Chest x-ray showing increased density at the retrocardiac cardiac left lung base , Possible consolidation not excluded. Empiric antibiotic coverage with piperacillin/tazobactam. Check MRSA PCR. Qualifiers: RSV infection type: unspecified Qualified Code(s): B33.8 - Other specified viral diseases (4) Congestive heart failure: Acute on chronic systolic CHF exacerbation Last known ejection fraction from February 2024 at 38%. Continue Lasix 40 mg IV daily, closely monitor kidney function and urine output. Elevated BNP at 5400, higher than recent baseline. Qualifiers: Heart failure chronicity: acute on chronic Heart failure type: d iastolic Qualified Code(s): I50.33 - Acute on chronic diastolic (congestive) heart failure (5) RSV (respiratory syncytial virus pneumonia): (6) Elevated troponin: Elevated troponin, baseline at 124, trending at 131 and then 137 at 2 and 6 hours respectively. Suspect this is most likely related to acute on chronic CHF exacerbation and acute viral infection. Patient denies any active chest pain. He has not had any chest pain in the days leading up to the admission EKG currently showing paced rhythm. (7) Generalized weakness: Generalized weakness and deconditioning related to multiple recent admissions, chronic comorbidities. Plan A-fib : . Currently patient is in paced rhythm. Continue anticoagulation with full dose Lovenox for now. Diabetes mellitus: Insulin sliding scale Urinary retention: Santo placed May 05, 2024 Clinically appears to be better today. Urine output 2000 cc. Creatinine stable at 1.9. Denies any new complaints today. Plan to continue IV diuresis with Lasix 40 mg IV daily. Good urine output for now. Goal to be net negative which has not been achieved yet. Blood pressure elevated at 170/85. Resume amlodipine 10 mg daily. Patient is stable to be moved out of the ICU to CSU, however there are no beds currently. Denies any current chest pain. PDMP PDMP Reviewed: Not Reviewed Attestations 2 Medical Necessity Statement*: continued admission for iv diuresis, RSV pneumonia, CHF exacerbation Coding Level of Care Code Acute Code for Chg Fwd High MDM includes number and complexity of problems actively addressed during encounter, amount and/or complexity of data reviewed/ordered and described risk of complication, morbidity or mortality of management as documented Diagnoses Acute encephalopathy G93.40 Acute and chronic respiratory failure J96.20 RSV infection B33.8 RSV infection type: unspecified Acute on chronic diastolic congestive heart failure I50.33 Heart failure chronicity: acute on chronic Heart failure type: diastolic RSV (respiratory syncytial virus pneumonia) J12.1 Elevated troponin R79.89 Generalized weakness R53.1
[2024-05-05] MEDS: amlodipine 10 mg Tablet PO (12:18)
[2024-05-05 16:14] LABS: Glucose Point of Care 225 mg/dL (70-110)
[2024-05-05] MEDS: tamsulosin 0.4 mg Capsule PO (17:21)
[2024-05-05] MEDS: lactulose oral liq 20 gm/30 mL UDC 10 GM PO (18:01)
--- NOTE | 2024-05-05 18:03 | PC.NURSE ---
Transfer Note Patient transferred to med-surg room 279-1 from ICU via wheelchair. Handoff report given to TONYA Sandoval. Patient oriented to environment and equipment. Covering service notified. Orders reviewed and will continue to monitor. Upon transfer patient is alert/oriented x4 on 2LNC. Several wounds/skin issues noted, please see wound assessment for details. Patient belongings include wallet with uncounted amount of money, cell phone, cell phone compressed gas tester, and clothes all left at bedside.
[2024-05-05] MEDS: apixaban 5 mg Tablet PO (20:58)
[2024-05-05 21:12] LABS: Glucose Point of Care 110 mg/dL (70-110)
[2024-05-05] MEDS: insulin glargine 100 units/1 mL 40 UNIT SUBCUT (21:47)
[2024-05-06] VITALS (7 sets, daily range): BP systolic 129–150; BP diastolic 64–78; PULSE 61–79; RESP 15–18; TEMP 36.6–36.9; O2SAT 93–96
[2024-05-06] MEDS: piperacillin-tazobactam 3.375 GM in sodium chloride 0.9% (plus) 50 ML IV ×2 (01:11→08:02)
[2024-05-06 06:28] LABS: Glucose Point of Care 97 mg/dL (70-110)
[2024-05-06] MEDS: lactulose oral liq 20 gm/30 mL UDC 10 GM PO (08:00)
[2024-05-06] MEDS: isosorbide mononitrate 20 mg Tablet PO (08:00)
[2024-05-06] MEDS: polyethylene glycol 3350 Pkt 17 gm PO (08:00)
[2024-05-06] MEDS: magnesium oxide 400 mg tablet PO (08:00)
[2024-05-06] MEDS: pregabalin 150 mg Capsule 300 MG PO (08:00)
[2024-05-06] MEDS: FUROsemide 10 mg/mL SDV 4mL 40 MG IVP (08:00)
[2024-05-06] MEDS: allopurinol 300 mg Tablet PO (08:01)
[2024-05-06] MEDS: doxycycline 100 mg Tablet PO (08:01)
[2024-05-06] MEDS: clopidogrel 75 mg Tablet PO (08:01)
[2024-05-06] MEDS: bacitracin ointment 28 gm TOPICAL (08:01)
[2024-05-06] MEDS: hyDRALAzine 25 mg Tablet PO (08:01)
[2024-05-06] MEDS: hydroCHLOROthiazide 25 mg Tablet PO (08:01)
[2024-05-06] MEDS: amlodipine 10 mg Tablet PO (08:01)
[2024-05-06] MEDS: apixaban 5 mg Tablet PO (08:09)
[2024-05-06] MEDS: oxyCODONE 5 mg IR Tab/Cap 10 MG PO (08:09)
[2024-05-06 10:59] LABS: Glucose Point of Care 164 mg/dL (70-110)
[2024-05-06] MEDS: insulin lispro 100 unit/1 mL SUBCUT (12:28)
--- NOTE | 2024-05-06 13:07 | PC.SOCIAL ---
IMM Update pg 2 of IMM Updated and reviewed w/ patient. Copy provided and copy dated, initialed and placed in chart.
--- NOTE | 2024-05-06 14:00 | PM.DCS ---
Discharge Providers Date of Admission: 05/03/24 20:15 Date of Discharge: May 07, 2024 Attending Provider at Admission: Nik Douglas MD Attending Provider at Discharge: Melanie Orlando MD Primary Care Provider: Jessica Bui MD Diagnoses at Discharge Discharge Diagnosis (1) Acute encephalopathy: Status: Acute (2) Acute and chronic respiratory failure: Status: Acute (3) RSV infection: Status: Acute Qualifiers: RSV infection type: unspecified Qualified Code(s): B33.8 - Other specified viral diseases (4) Congestive heart failure: Status: Acute Qualifiers: Heart failure chronicity: acute on chronic Heart failure type: diastolic Qualified Code(s): I50.33 - Acute on chronic diastolic (congestive) heart failure (5) RSV (respiratory syncytial virus pneumonia): Status: Acute (6) Elevated troponin: Status: Inactive (7) Generalized weakness: Status: Resolved Reason for Visit Reason for Visit: AMS,Sepsis Brief History: 74 year old male with history of A-fib with pacemaker, chronic anticoagulation with Eliquis, chronic kidney disease, degenerative joint disease of spine, systolic CHF, EF 30%, was recently discharged to a [facility] after management of CHF, presented back with worsening of his symptoms such as edema, bilateral lower extremity swelling, shortness of breath. He had not been taking his medications since returning home. Patient was put on 5 L nasal cannula by the EMS, he had anasarca and acute on chronic hypercapneic resp failure needing bipap. He was encephalopathic on arrival but imporved to baseline over the next day. He tested + for RSV. he was treated with iv diuresis, iv abx and supportive treatment. He improved with these interventions. He has been weaned down to room air today, saturatingw ell, Le edema is improved. He wished to be discharged home. Home health was arranged at the time of discharge Physical Exam Narrative: General: No acute distress, AO x3 HEENT: PERRLA, pupils bilaterally equal and reactive, pallors not present Chest: Normal vesicular breath sounds, no added sounds, equal good air entry bilaterally CVS: S1-S2 regular, no murmurs, no tachycardia, no gallops, no rubs Abdomen: Soft, nontender, no organomegaly, bowel sounds present Neuro: No focal deficits, no facial deformity, AO x3, power 5/5 in all limbs Urinary Catheter Management: Santo: Cath Placed During This Visit: yes Reason for Continuing Indwelling Catheter: Other Urinary Catheter Date of Insertion: 05/03/24 Urinary Catheter Time of Insertion: 22:31 Discharge Data Studies Completed and Pending Completed Studies During Hospitalization Category Date Time Status CT head wo con* [id number] Routine Cat Scan 05/04/24 09:14 Completed XR chest 1V portable [id number] Stat Exams 05/03/24 17:47 Completed Pending at discharge Category Date Time Status Blood Culture Stat Lab 05/03/24 18:08 Results Radiology Impressions Chest X-Ray 05/03/24 17:47 IMPRESSION: 1. Increased density at the retrocardiac left lung base which could represent atelectasis, infiltrate, and/or pleural effusion. Evaluation is limited due to the patient's body habitus and overlying soft tissues. Follow-up PA and lateral radiographs may be helpful for further evaluation. 2. Stable cardiomegaly with pacemaker in place. Head CT 05/04/24 09:14 IMPRESSION: 1. No acute intracranial hemorrhage or edema. 2. Moderate cerebral and cerebellar atrophy with mild small vessel changes. No acute interval change since 03/14/2024. Laboratory Results WBC 10.24 10^3/uL (3.29-11.43) 05/05/24 03:15 RBC 4.10 10^6/uL (3.85-5.65) 05/05/24 03:15 Hgb 11.60 g/dL (11.27-16.99) 05/05/24 03:15 Hct 36.6 % (37-53) L 05/05/24 03:15 MCV 89.3 fl (82-101) 05/05/24 03:15 MCH 28.3 pg (27-33) 05/05/24 03:15 MCHC 31.7 g/dL (30-55) 05/05/24 03:15 RDW 14.9 % (12.1-15.1) 05/05/24 03:15 Plt Count 144 10^3/cmm (157-399) L 05/05/24 03:15 MPV 11.0 fL (7.4-10.4) H 05/05/24 03:15 Neut % (Auto) 76.1 % 05/05/24 03:15 Lymph % (Auto) 16.4 % 05/05/24 03:15 [place] % (Auto) 6.9 % 05/05/24 03:15 Eos % (Auto) 0.0 % 05/05/24 03:15 Baso % (Auto) 0.2 % 05/05/24 03:15 Neut # (Auto) 7.79 10^3/uL (1.8-7.7) H 05/05/24 03:15 Lymph # (Auto) 1.7 10^3/uL (0.8-4.8) 05/05/24 03:15 [place] # (Auto) 0.7 10^3/uL (0.2-0.9) 05/05/24 03:15 Eos # (Auto) 0.0 10^3/uL (0.0-0.8) 05/05/24 03:15 Baso # (Auto) 0.0 10^3/uL (0.0-0.1) 05/05/24 03:15 Nucleated RBC % (auto) 0 % 05/05/24 03:15 Nucleated RBCs # 0.0 /100WBC 05/05/24 03:15 Specimen Type Arterial 05/04/24 08:58 Sample Site Radial, left 05/04/24 08:58 ABG pH 7.34 (7.35-7.45) L 05/04/24 08:58 ABG pCO2 54.5 mmHg (35-45) H 05/04/24 08:58 ABG pO2 69.3 mmHg (80.0-100.0) L 05/04/24 08:58 ABG PO2/FiO2 Ratio 192 05/04/24 08:58 ABG HCO3 29.4 mmol/L (22-26) H 05/04/24 08:58 ABG O2 Saturation 94.2 05/04/24 08:58 ABG Base Excess 2.4 mmol/L (-2.0-2.0) H 05/04/24 08:58 Judd Test Pos 05/04/24 08:58 A-a O2 Gradient 15.8 mmHg (5-10) H 05/04/24 08:58 Hematocrit 41.0 % (42-52) L 05/04/24 08:58 Hgb O2 Saturation 92.1 % (95-100) L 05/04/24 08:58 Carboxyhemoglobin 1.1 %THgb (0.4-20.1) 05/04/24 08:58 Methemoglobin 1.1 % (0.4-1.5) 05/04/24 08:58 Total Hemoglobin 13.4 g/dL (14-18) L 05/04/24 08:58 Sodium 145.0 mmol/L (131-143) H 05/04/24 08:58 Potassium 3.7 mmol/L (3.5-5.0) 05/04/24 08:58 Glucose 225.0 mg/dL (70-115) H 05/04/24 08:58 Ionized Calcium 1.1 mmol/L (1.1-1.4) 05/04/24 08:58 O2 Delivery Device Nc 05/04/24 08:58 O2 Liters/Min 4.0 % 05/04/24 08:58 FiO2 36.0 % 05/04/24 08:58 Route Salesperson ID Cak 05/04/24 08:58 Sodium 143 mmol/L (136-145) 05/05/24 03:15 Potassium 3.5 mmol/L (3.5-5.1) 05/05/24 03:15 Chloride 102 mmol/L (98-107) 05/05/24 03:15 Carbon Dioxide 31 mmol/L (22-29) H 05/05/24 03:15 Anion Gap 13.5 (5-19) 05/05/24 03:15 BUN 38 mg/dL (8-23) H 05/05/24 03:15 Creatinine 1.9 mg/dL (0.7-1.2) H 05/05/24 03:15 GFR Calculation Not Reportable 05/05/24 03:15 Glucose 221 mg/dL (65-115) H 05/05/24 03:15 POC Glucose 164 mg/dL (70-110) H 05/06/24 10:48 Calculated Osmolality 312 mOsm/kg (285-295) H 05/05/24 03:15 Lactic Acid 2.5 mmol/L (0.5-2.2) H 05/03/24 18:10 Lactic Acid (Sepsis) 2.5 mmol/L (0.5-2.2) H 05/03/24 21:05 Calcium 8.0 mg/dL (8.5-10.5) L 05/05/24 03:15 Phosphorus 4.9 mg/dL (2.5-4.5) H 05/04/24 04:00 Magnesium 2.3 mg/dL (1.7-2.3) 05/04/24 04:00 Total Bilirubin 0.4 mg/dL (0.15-1.2) 05/05/24 03:15 AST 38 U/L (0-40) 05/05/24 03:15 ALT 18 U/L (0-41) 05/05/24 03:15 Alkaline Phosphatase 70 U/L (40-130) 05/05/24 03:15 Ammonia 17 umol/L (16-60) 05/04/24 10:21 Troponin T Baseline 124 ng/L (0-15) H* 05/03/24 18:10 Troponin T 120 Minute 131.6 ng/L (0-15) H 05/03/24 21:05 Delta Troponin T 7.6 ABS# (0-10) 05/03/24 21:05 Troponin T Hi Sens 6Hr 137.4 ng/L (0-15) H 05/03/24 23:52 Troponin T Hi Sens 6Hr Delta 13.4 ng/L (0-12) H* 05/03/24 23:52 C-Reactive Protein 140.9 mg/L (0.0-4.9) H 05/04/24 04:00 NT-Pro-B Natriuret Pep 5455 pg/mL (0-450) H 05/03/24 18:10 Total Protein 5.5 g/dL (6.6-8.7) L 05/05/24 03:15 Albumin 2.9 g/dL (3.5-5.2) L 05/05/24 03:15 Globulin 2.6 g/dL (1.3-4.6) 05/05/24 03:15 Procalcitonin 0.31 ng/mL (0-0.5) 05/03/24 18:10 Procalcitonin 0.34 ng/mL (0-0.5) 05/03/24 18:10 TSH 1.06 uIU/mL (0.27-4.20) 05/04/24 04:00 Urine Color Yellow (Yellow) 05/03/24 18:51 Urine Appearance Clear (CLEAR) 05/03/24 18:51 Urine pH 5.5 (5-7) 05/03/24 18:51 Ur Specific [place] 1.018 (1.005-1.030) 05/03/24 18:51 Urine Protein 3+ (Negative) A 05/03/24 18:51 Urine Glucose (UA) 3+ (Normal) H 05/03/24 18:51 Urine Ketones Negative (Negative) 05/03/24 18:51 Urine Blood 3+ (Negative) A 05/03/24 18:51 Urine Nitrate Negative (Negative) 05/03/24 18:51 Urine Bilirubin Negative (Negative) 05/03/24 18:51 Urine Urobilinogen 0.2 mg/dL (Negative) 05/03/24 18:51 Ur Leukocyte Esterase Negative (Negative) 05/03/24 18:51 Urine RBC 0-2 /hpf (0-2) 05/03/24 18:51 Urine WBC 0-5 /hpf (0-5) 05/03/24 18:51 Ur Squamous Epith Cells 0-5 /hpf (0-5) 05/03/24 18:51 Amorphous Sediment Not Reportable 05/03/24 18:51 Urine Bacteria None seen /hpf (NONE) 05/03/24 18:51 Hyaline Casts 5.77 /lpf 05/03/24 18:51 Coronavirus (PCR) Negative (Negative) 05/03/24 18:00 Influenza A (PCR) Negative (Negative) 05/03/24 18:00 Influenza Type B (PCR) Negative (Negative) 05/03/24 18:00 RSV (PCR) Positive (Negative) A 05/03/24 18:00 Vitals Last Vital Signs Temp 98.3 F 05/06/24 13:52 Pulse 65 05/06/24 13:52 Resp 16 05/06/24 13:52 BP 129/64 05/06/24 13:52 Pulse Ox 94 05/06/24 13:52 O2 Del Method Room Air 05/06/24 11:25 O2 Flow Rate 3 05/05/24 21:04 FiO2 35 05/05/24 01:42 Discharge Plan Discharge Patient Disposition: Home Health Service Condition: Stable Prescriptions: New clopidogrel 75 mg Tablet 75 mg PO DAILY 30 Days Qty: 30 0RF benzonatate 100 mg Capsule 200 mg PO Q6H PRN (Reason: Cough) 10 Days Qty: 30 0RF lactulose 20 gram/30 mL Solution 10 g PO BID 30 Days Qty: 900 0RF Continued (DME) o[place]obock afo to right See Rx Instructions .Route .MEDSUPPLY Qty: 1 0RF Rx Instructions: As directed by [employer] (DME) Diabetic Shoes with 3 pairs of inserts See Rx Instructions .ROUTE .MEDSUPPLY Qty: 1 0RF Rx Instructions: As directed by [employer] [employer] insulin aspart U-100 [Novolog U-100 Insulin aspart] 100 unit/mL solution 12 unit SUBCUT .WITH MEALS Qty: 10 1RF Rx Instructions: TID (DME) Silver Alginate Dressing and 2 Layer Compression System Wraps See Rx Instructions .Route .MEDSUPPLY Qty: 1 0RF Rx Instructions: Dressing supplies needed for 30 days with 3 Refills (DME) 2 Layer Compression Bandage System- Coflex TLC LITE Calamine with Indicators 4 in x6 yard/4 in by 7 yard See Rx Instructions .Route .MEDSUPPLY Qty: 1 0RF Rx Instructions: 32 boxes needed for 3 months Compression 20 to 30 mmHg- Ref. # [id number] polyethylene glycol 3350 [Miralax] 17 gram/dose Powder 17 g PO DAILY@08 magnesium oxide 400 mg magnesium Tablet 400 mg PO DAILY@08 nitroglycerin [Nitrostat] 0.4 mg Tablet, Sublingual 0.4 mg SUBLINGUAL Q5M PRN (Reason: Chest Pain) Rx Instructions: do not exceed 3 doses per episode insulin glargine [Lantus U-100 Insulin] 100 unit/mL solution 50 unit SUBCUT BEDTIME finasteride 5 mg tablet 5 mg PO DAILY@08 zinc oxide 20 % Ointment See Rx Instructions .ROUTE .COMPLEX PRN (Reason: Skin Irritation) Rx Instructions: Mix 50/50 with mupirocin ointment and apply to wound of buttocks twice daily. potassium chloride 20 mEq tablet,ER particles/crystals 20 meq PO BID mupirocin 2 % Ointment 1 applic TOPICAL BID oxycodone 10 mg Tablet 10 mg PO Q4H PRN (Reason: Pain) sennosides-docusate sodium [Stool Softener-Laxative] 8.6-50 mg Tablet 1 tab PO DAILY Qty: 30 0RF bisacodyl [Dulcolax (bisacodyl)] 10 mg Suppository 10 mg NH DAILY PRN (Reason: Constipation) ihgzbvmesbid-kgpy-xtyfw acid 18-400 mg-mcg Tablet 1 tab PO QAM honey 80 % Gel 1 applic TOPICAL BID Tubersol 5 tub. unit /0.1 mL Solution 1 tb unit INTRADERMAL ONCE Trulicity 3 mg/0.5 mL Pen Injector 3 mg SUBCUT Q7D furosemide [Lasix] 20 mg tablet See Rx Instructions .ROUTE .COMPLEX Rx Instructions: Take by Mouth 20mg+ 40mg = 60 mg in am fluconazole 100 mg tablet 100 mg PO DAILY Qty: 7 0RF pregabalin [Lyrica] 300 mg Capsule 300 mg PO BID@08,20 acetaminophen 325 mg Tablet 650 mg PO QID PRN (Reason: pain or temp) furosemide 40 mg Tablet See Rx Instructions .ROUTE .COMPLEX 30 Days Qty: 30 0RF Rx Instructions: Take by mouth 40mg+20mg=60mg every am , Then take 40mg in the pm. doxycycline hyclate 100 mg capsule 100 mg PO BID 3 Days Qty: 6 0RF isosorbide mononitrate 20 mg Tablet 20 mg PO BID 30 Days Qty: 60 0RF pentoxifylline 400 mg Tablet Extended Release 400 mg PO BID 30 Days Qty: 60 0RF tamsulosin 0.4 mg capsule 0.4 mg PO QPM 30 Days Qty: 30 0RF amlodipine 10 mg Tablet 10 mg PO DAILY 30 Days Qty: 30 0RF allopurinol 300 mg Tablet 300 mg PO DAILY@08 30 Days Qty: 30 0RF hydrochlorothiazide 25 mg tablet 25 mg PO DAILY 30 Days Qty: 30 0RF losartan 100 mg tablet 100 mg PO DAILY 30 Days Qty: 30 0RF amoxicillin-pot clavulanate 875-125 mg Tablet 1 tab PO BID 5 Days Qty: 10 0RF rosuvastatin 10 mg tablet 10 mg PO QPM 30 Days Qty: 30 0RF duloxetine 30 mg Capsule,Delayed Release(Dr/Ec) 30 mg PO DAILY@08 30 Days Qty: 30 0RF cholecalciferol (vitamin D3) [Vitamin D3] 50 mcg (2,000 unit) Tablet 50 mcg PO DAILY 30 Days Qty: 30 0RF Eliquis 5 mg tablet 5 mg PO BID@08,20 30 Days Qty: 60 0RF empagliflozin 25 mg Tablet 25 mg PO DAILY 30 Days Qty: 30 0RF Discharge Orders: Discharge Order (Routine); Ordered 05/06/24 Ordered By: Melanie Orlando Referrals: [facility] [Outside] Jessica Bui MD [Primary Care Provider] - 7-10 days (Please call [place] office to make an appointment in 7-10 days.) Discharge Diet: Usual diet Discharge Activity: Resume usual activity Patient Instructions: Benzonatate (By mouth) (Janine Matthews), Lactulose (By mouth) (Konstuloz, Enuloz, Generlac, Kristaloz, Laktuloz), Clopidogrel (By mouth) (Plavix), Altered Mental Status (ED), RSV (Respiratory Syncytial Virus) Infection (GEN), Opioid Safety Discharge Attestations Time Spent in Discharge Care*: greater than 30 min Status at Discharge: Cognitive status at discharge: cognitively intact, Behavioral status at discharge: cooperative, Quality Metrics Clinical Quality Measures [ No reported AMI, CVA or VTE this stay] Coding Level of Care Code Acute Code for Chg Fwd Diagnoses Acute encephalopathy G93.40 Acute and chronic respiratory failure J96.20 RSV infection B33.8 RSV infection type: unspecified Acute on chronic diastolic congestive heart failure I50.33 Heart failure chronicity: acute on chronic Heart failure type: diastolic RSV (respiratory syncytial virus pneumonia) J12.1 Elevated troponin R79.89 Generalized weakness R53.1
== END 2024-05-06 14:10 | disposition home health service (06) | DRG 280 ==
LOC: ER 20:53 → MEDSURG 20:54 → ICU 22:58 → CSU 05-04 19:53 → ICU 05-04 19:57 → MEDSURG 05-05 17:44
PROVIDERS: Emergency Medicine; Admitting Provider Internal Medicine; Emergency Provider Emergency Medicine; PCP Family Medicine; Visit Provider Student in an Organized Health Care Education/Training Program
DX: I13.0 Hypertensive heart and chronic kidney disease with heart failure and stage 1 through stage 4 chronic kidney disease, or unspecified chronic kidney disease (principal); G93.41 Metabolic encephalopathy; I21.4 Non-ST elevation (NSTEMI) myocardial infarction; I50.33 Acute on chronic diastolic (congestive) heart failure; J96.22 Acute and chronic respiratory failure with hypercapnia; J96.21 Acute and chronic respiratory failure with hypoxia; J18.9 Pneumonia, unspecified organism; I48.20 Chronic atrial fibrillation, unspecified; E87.20 Acidosis, unspecified; N18.30 Chronic kidney disease, stage 3 unspecified; E11.22 Type 2 diabetes mellitus with diabetic chronic kidney disease; B97.4 Respiratory syncytial virus as the cause of diseases classified elsewhere; R79.89 Other specified abnormal findings of blood chemistry; Z95.0 Presence of cardiac pacemaker; Z79.01 Long term (current) use of anticoagulants; Z79.4 Long term (current) use of insulin; Z79.891 Long term (current) use of opiate analgesic; Z79.85 Long-term (current) use of injectable non-insulin antidiabetic drugs; M54.12 Radiculopathy, cervical region; E11.51 Type 2 diabetes mellitus with diabetic peripheral angiopathy without gangrene; E11.40 Type 2 diabetes mellitus with diabetic neuropathy, unspecified; M21.371 Foot drop, right foot; R94.39 Abnormal result of other cardiovascular function study; R27.8 Other lack of coordination; N40.1 Benign prostatic hyperplasia with lower urinary tract symptoms; R33.8 Other retention of urine; Z86.73 Personal history of transient ischemic attack (TIA), and cerebral infarction without residual deficits; E66.9 Obesity, unspecified; Z68.37 Body mass index [BMI] 37.0-37.9, adult; F17.220 Nicotine dependence, chewing tobacco, uncomplicated; M10.9 Gout, unspecified; I65.23 Occlusion and stenosis of bilateral carotid arteries
CPT/HCPCS: 36415; 36416; 36600; 51702; 70450; 71045; 80048; 80051; 80053; 81001; 82140; 82330; 82803; 82805; 82962; 83605; 83735; 83880; 84100; 84145; 84443; 84484; 85025; 86140; 87040; 87637; 93005; 94640; 94660; 94664; 96365; 96372; 97110; 97116; 97162; 97166; 97530; 99285; J1650; J1815; J1940; J2543; J2919

== ENCOUNTER 2024-05-19 17:40 | Emergency (ER) | payer OTHER, SELFPAY ==
[2024-05-19] VITALS (8 sets, daily range): BP systolic 126–198; BP diastolic 63–83; PULSE 63–86; RESP 18; TEMP 36.6; O2SAT 92–96
--- NOTE | 2024-05-19 17:44 | XRR_ITS ---
PROCEDURE INFORMATION: Exam: XR Chest Exam date and time: 05/19/2024 6:03 PM Age: 74 years old Clinical indication: Shortness of breath TECHNIQUE: Imaging protocol: Radiologic exam of the chest. Views: 1 view. COMPARISON: CR (CHEST, ) 05/03/2024 5:53 PM FINDINGS: Tubes, catheters and devices: Left chest ICD positioning is unchanged. Lungs: Low lung volumes. No consolidation. Pleural spaces: Unremarkable. No pleural effusion. No pneumothorax. Heart/Mediastinum: Cardiac enlargement redemonstrated. Bones/joints: Unremarkable. XR/XR chest 1V portable [id number] IMPRESSION: Negative for focal acute pulmonary disease.
--- NOTE | 2024-05-19 17:44 | ECG_ITS ---
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
[2024-05-19 18:06] LABS: ABG PCO2 38.8 mmHg (35-45); ABG PH Result 7.48 (7.35-7.45); Alveolar-Arterial Oxygen Gradi 4.9 mmHg (5-10); Arterial Blood Gas Hematocrit 47.6 % (42-52); Base Excess ABG 5.2 mmol/L (-2.0-2.0); Blood Gas Allen Test Pos; Blood Gas Operator Identificat BROMA; Blood Gas Sample Site Radial, right; Blood Gas Sample Type Arterial; Carboxyhemoglobin 1.5 %THgb (0.4-20.1); HGB O2 Sat 92.2 % (95-100); Ionized Calcium Level - ABG 1.1 mmol/L (1.1-1.4); Methemoglobin 0.9 % (0.4-1.5); Oxygen Device ROOM AIR; Oxygen Saturation ABG 94.5; PO2 ABG 66.8 mmHg (80.0-100.0); PO2 FiO2 Ratio Arterial Blood 318; Potassium Level - ABG 3.5 mmol/L (3.5-5.0); Total Hemoglobin 15.5 g/dL (14-18)
--- NOTE | 2024-05-19 18:20 | W.ED.WEAKNES ---
HPI - Weakness General: Chief complaint: Weakness Stated complaint: generalized weakness Time Seen by Provider: 05/19/24 17:43 History of Present Illness: This is a 74-year-old man with a history of atrial fibrillation and chronic anticoagulation on Eliquis, chronic venous insufficiency, chronic foot wounds, hypertension, gout, CHF, chronic kidney disease, coronary artery disease, peripheral artery disease, diabetes and diabetic neuropathy who presents to the emergency room with weakness. He says he only became because home health told him he needed to. They felt like he seems a little bit confused. He does seem to take a second to answer. He has wounds on his feet that are chronic. Difficult to say whether they are worse than usual or not. Review of Systems Narrative: Constitutional symptoms: Negative except as documented in HPI. Skin symptoms: Negative except as documented in HPI. Eye symptoms: Negative except as documented in HPI. ENMT symptoms: Negative except as documented in HPI. Respiratory symptoms: Negative except as documented in HPI. Cardiovascular symptoms: Negative except as documented in HPI. Gastrointestinal symptoms: Negative except as documented in HPI. Genitourinary symptoms: Negative except as documented in HPI. Musculoskeletal symptoms: Negative except as documented in HPI. Neurologic symptoms: Negative except as documented in HPI. Psychiatric symptoms: Negative except as documented in HPI. Endocrine symptoms: Negative except as documented in HPI. FORMERLY [facility], 1928–1983 ED PFSH: Medical History Atrial fibrillation Chronic, history of bradycardia with beta blockers, on eliquis Hyperkalemia Cervical radiculopathy Acute kidney injury Weakness Chronic venous insufficiency Benign essential hypertension with target blood pressure below 140/90 Sacroiliitis Hypertension Constipation Gout attack Acute on chronic diastolic (congestive) heart failure Hypokalemia CHF exacerbation Swelling of right upper extremity Atrial fibrillation Peripheral arterial disease CKD (chronic kidney disease) Ischemic toe ulcer Physical deconditioning Bilateral lower leg cellulitis Temporary transvenous cardiac pacemaker present BMI 40.0-44.9, adult Hyperkalemia Squamous cell carcinoma in situ Abnormal nuclear stress test Accelerated hypertension Chronic diastolic heart failure Atrial fibrillation Acute kidney injury Rhabdomyolysis Coronary artery disease Evaluated in [place], patient reports 55% narrowing unknown vessel no stent or angioplasty done PAD (peripheral artery disease) Calculus of proximal ureter Diabetic neuropathy associated with type 2 diabetes mellitus Lumbar foraminal stenosis Bradycardia Nicotine dependence, chewing tobacco, with other nicotine-induced disorders Diabetes mellitus, type II Chronic anticoagulation eliquis Osteoarthritis Obesity BMI-42 kg/m2 Chronic kidney disease Hyperlipidemia Obstructive sleep apnea not on treatment by choice CVA (cerebral vascular accident) residual right weakness Congestive heart failure BPH NOS w/o ur obs/LUTS PVD (peripheral vascular disease) Pes planus of both feet Renal calculus, right Surgical History Hx of colonoscopy with polypectomy Status post cardiac pacemaker procedure No pertinent past surgical history Family History Mother , 87 Diabetes CAD (coronary artery disease) Hypertension Father , 60 No problems noted. Social History Smoking and tobacco/nicotine status: former use of tobacco/nicotine Alcohol intake: former Year of sobriety/quit date alcohol: 25 y Former alcohol use details: heavy use, 5 DWI's Substance/Drug Use: former Household members: none Housing: House Marital status: service: Yes Current occupational status: retired Physical Exam Narrative: EXAM NARRATIVE: General: Alert, no acute distress. Skin: Warm, dry. Patient has some venous stasis changes along his shins. He has some chronic wounds on his feet. Some skin is peeled on the edge of his foot. Some chronic wounds on his toes. But does not have any signs of cellulitis at this time. Head: Normocephalic, atraumatic. Neck: Supple, trachea midline. Eye: Extraocular movements are intact. Ears, nose, mouth and throat: mucosa moist. Cardiovascular: Regular, Normal peripheral perfusion. Respiratory: Lungs are clear to auscultation, respirations are non-labored, breath sounds are equal, Symmetrical chest wall expansion. Gastrointestinal: Soft, Nontender, Non distended Musculoskeletal: Normal ROM, no deformity. Neurological: Alert and oriented, No focal neurological deficit observed. Psychiatric: Cooperative, appropriate mood & affect. Course Vital Signs: Vital signs: Vital Signs Temperature 97.8 F 05/19/24 18:00 Pulse Rate 63 05/19/24 20:30 Respiratory Rate 18 05/19/24 18:00 Blood Pressure 198/83 05/19/24 20:30 Pulse Oximetry 92 05/19/24 20:30 Oxygen Delivery Me thod Room Air 05/19/24 20:30 MDM - Weakness Medical Decision Making Medical decision making: Differential diagnosis for patient presenting with generalized weakness including but not limited to and based on the above HPI, review of systems and physical exam: Sepsis. Dehydration. Renal failure. Electrolyte abnormalities. Anemia. Congestive heart failure. Hypotension. Coronary syndrome. Hepatitis. Cirrhosis. Infections such as pneumonia, urinary tract infection, [place] illness, Cellulitis, Viral infections including influenza and Covid-19. Workup: labwork and lab/exam driven imaging ordered to evaluate, rule in and rule out above pathologies. Lab Review: Laboratory results were reviewed and interpreted by myself the emergency room physician. I find nothing overtly out of the patient's norm. Mild leukocytosis. No anemia. BUN and creatinine are at his baseline at 38 and 1.9. Chest x-ray: Stable cardiomegaly. No signs of fluid overload or pneumonia. Pacemaker is in place. No changes from previous chest x-ray. This was reviewed and interpreted by myself the emergency room physician. I also reviewed the radiology report. EKG: Time 2100. Atrial fibrillation with controlled rate, No ST-T changes, no ectopy, This was reviewed and interpreted by myself the ER physician at 2106 I reviewed the patient's medical record. Reexamination: Patient remained stable. No altered mental status. No focal motor deficits. He is somnolent at times. He says he has been more sleepy but he says he is not sure why even needed to come here today. Assessment and plan: Generalized weakness - Discharged home - Discussed plan with patient. Answered any questions. - Evaluation and treatment of this problem were appropriate in the emergency setting. Lab Data 05/19/24 18:52 05/19/24 18:52 Laboratory Results WBC 13.68 10^3/uL (3.29-11.43) H 05/19/24 18:52 RBC 5.33 10^6/uL (3.85-5.65) 05/19/24 18:52 Hgb 14.90 g/dL (11.27-16.99) 05/19/24 18:52 Hct 47.4 % (37-53) 05/19/24 18:52 MCV 88.9 fl (82-101) 05/19/24 18:52 MCH 28.0 pg (27-33) 05/19/24 18:52 MCHC 31.4 g/dL (30-55) 05/19/24 18:52 RDW 16.1 % (12.1-15.1) H 05/19/24 18:52 Plt Count 240 10^3/cmm (157-399) 05/19/24 18:52 MPV 10.9 fL (7.4-10.4) H 05/19/24 18:52 Neut % (Auto) 79.5 % 05/19/24 18:52 Lymph % (Auto) 13.5 % 05/19/24 18:52 Irion % (Auto) 5.8 % 05/19/24 18:52 Eos % (Auto) 0.6 % 05/19/24 18:52 Baso % (Auto) 0.3 % 05/19/24 18:52 Neut # (Auto) 10.88 10^3/uL (1.8-7.7) H 05/19/24 18:52 Lymph # (Auto) 1.9 10^3/uL (0.8-4.8) 05/19/24 18:52 Irion # (Auto) 0.8 10^3/uL (0.2-0.9) 05/19/24 18:52 Eos # (Auto) 0.1 10^3/uL (0.0-0.8) 05/19/24 18:52 Baso # (Auto) 0.0 10^3/uL (0.0-0.1) 05/19/24 18:52 Nucleated RBC % (auto) 0 % 05/19/24 18:52 Nucleated RBCs # 0.0 /100WBC 05/19/24 18:52 ESR 17 mm/hr (0-10) H 05/19/24 18:52 Specimen Type Arterial 05/19/24 17:55 Sample Site Radial, right 05/19/24 17:55 ABG pH 7.48 (7.35-7.45) H 05/19/24 17:55 ABG pCO2 38.8 mmHg (35-45) 05/19/24 17:55 ABG pO2 66.8 mmHg (80.0-100.0) L 05/19/24 17:55 ABG PO2/FiO2 Ratio 318 05/19/24 17:55 ABG HCO3 29.0 mmol/L (22-26) H 05/19/24 17:55 ABG O2 Saturation 94.5 05/19/24 17:55 ABG Base Excess 5.2 mmol/L (-2.0-2.0) H 05/19/24 17:55 Judd Test Pos 05/19/24 17:55 A-a O2 Gradient 4.9 mmHg (5-10) L 05/19/24 17:55 Hematocrit 47.6 % (42-52) 05/19/24 17:55 Hgb O2 Saturation 92.2 % (95-100) L 05/19/24 17:55 Carboxyhemoglobin 1.5 %THgb (0.4-20.1) 05/19/24 17:55 Methemoglobin 0.9 % (0.4-1.5) 05/19/24 17:55 Total Hemoglobin 15.5 g/dL (14-18) 05/19/24 17:55 Sodium 148.0 mmol/L (131-143) H 05/19/24 17:55 Potassium 3.5 mmol/L (3.5-5.0) 05/19/24 17:55 Glucose 167.0 mg/dL (70-115) H 05/19/24 17:55 Ionized Calcium 1.1 mmol/L (1.1-1.4) 05/19/24 17:55 O2 Delivery Device Room air 05/19/24 17:55 FiO2 21.0 % 05/19/24 17:55 Law Office Assistant ID Broma 05/19/24 17:55 Sodium 150 mmol/L (136-145) H 05/19/24 18:52 Potassium 3.7 mmol/L (3.5-5.1) 05/19/24 18:52 Chloride 103 mmol/L (98-107) 05/19/24 18:52 Carbon Dioxide 31 mmol/L (22-29) H 05/19/24 18:52 Anion Gap 19.7 (5-19) H 05/19/24 18:52 BUN 38 mg/dL (8-23) H 05/19/24 18:52 Creatinine 1.9 mg/dL (0.7-1.2) H 05/19/24 18:52 GFR Calculation Not Reportable 05/19/24 18:52 Glucose 146 mg/dL (65-115) H 05/19/24 18:52 Calculated Osmolality 322 mOsm/kg (285-295) H 05/19/24 18:52 Lactic Acid 2.2 mmol/L (0.5-2.2) 05/19/24 18:52 Calcium 9.0 mg/dL (8.5-10.5) 05/19/24 18:52 Total Bilirubin 1.4 mg/dL (0.15-1.2) H 05/19/24 18:52 AST 55 U/L (0-40) H 05/19/24 18:52 ALT 20 U/L (0-41) 05/19/24 18:52 Alkaline Phosphatase 122 U/L (40-130) 05/19/24 18:52 Troponin T Baseline 169 ng/L (0-15) H* 05/19/24 18:52 Troponin T 120 Minute 165.6 ng/L (0-15) H 05/19/24 20:22 Delta Troponin T -3.4 ABS# (0-10) L 05/19/24 20:22 C-Reactive Protein 97.1 mg/L (0.0-4.9) H 05/19/24 18:52 Total Protein 6.3 g/dL (6.6-8.7) L 05/19/24 18:52 Albumin 3.9 g/dL (3.5-5.2) 05/19/24 18:52 Globulin 2.4 g/dL (1.3-4.6) 05/19/24 18:52 Urine Color Yellow (Yellow) 05/19/24 19:58 Urine Appearance Cloudy (CLEAR) A 05/19/24 19:58 Urine pH 5.5 (5-7) 05/19/24 19:58 Ur Specific [place] 1.024 (1.005-1.030) 05/19/24 19: Urine Protein 3+ (Negative) A 05/19/24 19: Urine Glucose (UA) 2+ (Normal) H 05/19/24 19:58 Urine Ketones 1+ (Negative) H 05/19/24 19:58 Urine Blood Negative (Negative) 05/19/24 19: Urine Nitrate Negative (Negative) 05/19/24 19:58 Urine Bilirubin Negative (Negative) 05/19/24 19:58 Urine Urobilinogen 1.0 mg/dL (Negative) 05/19/24 19:58 Ur Leukocyte Esterase Negative (Negative) 05/19/24 19:58 Amorphous Sediment Not Reportable 05/19/24 19:58 Influenza A (PCR) Negative (Negative) 05/19/24 18:58 Influenza Type B (PCR) Negative (Negative) 05/19/24 18:58 RSV (PCR) Negative (Negative) 05/19/24 18:58 SARS-CoV-2 (PCR) Negative (Negative) 05/19/24 18:58 All radiology interpretation(s) finalized by discharge Discharge Plan Discharge Patient Disposition: Home Clinical Impression: Generalized weakness Condition: Stable Prescriptions: No Action (DME) ottobock afo to right See Rx Instructions .Route .MEDSUPPLY Qty: 1 0RF Rx Instructions: As directed by [employer] (DME) Diabetic Shoes with 3 pairs of inserts See Rx Instructions .ROUTE .MEDSUPPLY Qty: 1 0RF Rx Instructions: As directed by [employer] [facility] [employer] insulin aspart U-100 [Novolog U-100 Insulin aspart] 100 unit/mL solution 12 unit SUBCUT .WITH MEALS Qty: 10 1RF Rx Instructions: TID (DME) Silver Alginate Dressing and 2 Layer Compression System Wraps See Rx Instructions .Route .MEDSUPPLY Qty: 1 0RF Rx Instructions: Dressing supplies needed for 30 days with 3 Refills (DME) 2 Layer Compression Bandage System- Coflex TLC LITE Calamine with Indicators 4 in x6 yard/4 in by 7 yard See Rx Instructions .Route .MEDSUPPLY Qty: 1 0RF Rx Instructions: 32 boxes needed for 3 months Compression 20 to 30 mmHg- Ref. # [id number] polyethylene glycol 3350 [Miralax] 17 gram/dose Powder 17 g PO DAILY@08 magnesium oxide 400 mg magnesium Tablet 400 mg PO DAILY@08 nitroglycerin [Nitrostat] 0.4 mg Tablet, Sublingual 0.4 mg SUBLINGUAL Q5M PRN (Reason: Chest Pain) Rx Instructions: do not exceed 3 doses per episode insulin glargine [Lantus U-100 Insulin] 100 unit/mL solution 50 unit SUBCUT BEDTIME finasteride 5 mg tablet 5 mg PO DAILY@08 zinc oxide 20 % Ointment See Rx Instructions .ROUTE .COMPLEX PRN (Reason: Skin Irritation) Rx Instructions: Mix 50/50 with mupirocin ointment and apply to wound of buttocks twice daily. potassium chloride 20 mEq tablet,ER particles/crystals 20 meq PO BID mupirocin 2 % Ointment 1 applic TOPICAL BID oxycodone 10 mg Tablet 10 mg PO Q4H PRN (Reason: Pain) sennosides-docusate sodium [Stool Softener-Laxative] 8.6-50 mg Tablet 1 tab PO DAILY Qty: 30 0RF bisacodyl [Dulcolax (bisacodyl)] 10 mg Suppository 10 mg ND DAILY PRN (Reason: Constipation) xeuczvbriqfj-eznp-klgcw acid 18-400 mg-mcg Tablet 1 tab PO QAM honey 80 % Gel 1 applic TOPICAL BID Tubersol 5 tub. unit /0.1 mL Solution 1 tb unit INTRADERMAL ONCE Trulicity 3 mg/0.5 mL Pen Injector 3 mg SUBCUT Q7D furosemide [Lasix] 20 mg tablet See Rx Instructions .ROUTE .COMPLEX Rx Instructions: Take by Mouth 20mg+ 40mg = 60 mg in am fluconazole 100 mg tablet 100 mg PO DAILY Qty: 7 0RF pregabalin [Lyrica] 300 mg Capsule 300 mg PO BID@08,20 acetaminophen 325 mg Tablet 650 mg PO QID PRN (Reason: pain or temp) clopidogrel 75 mg Tablet 75 mg PO DAILY 30 Days Qty: 30 0RF lactulose 20 gram/30 mL Solution 10 g PO BID 30 Days Qty: 900 0RF furosemide 40 mg Tablet See Rx Instructions .ROUTE .COMPLEX 30 Days Qty: 30 0RF Rx Instructions: Take by mouth 40mg+20mg=60mg every am , Then take 40mg in the pm. doxycycline hyclate 100 mg capsule 100 mg PO BID 3 Days Qty: 6 0RF isosorbide mononitrate 20 mg Tablet 20 mg PO BID 30 Days Qty: 60 0RF pentoxifylline 400 mg Tablet Extended Release 400 mg PO BID 30 Days Qty: 60 0RF tamsulosin 0.4 mg capsule 0.4 mg PO QPM 30 Days Qty: 30 0RF amlodipine 10 mg Tablet 10 mg PO DAILY 30 Days Qty: 30 0RF allopurinol 300 mg Tablet 300 mg PO DAILY@08 30 Days Qty: 30 0RF hydrochlorothiazide 25 mg tablet 25 mg PO DAILY 30 Days Qty: 30 0RF losartan 100 mg tablet 100 mg PO DAILY 30 Days Qty: 30 0RF amoxicillin-pot clavulanate 875-125 mg Tablet 1 tab PO BID 5 Days Qty: 10 0RF rosuvastatin 10 mg tablet 10 mg PO QPM 30 Days Qty: 30 0RF duloxetine 30 mg Capsule,Delayed Release(Dr/Ec) 30 mg PO DAILY@08 30 Days Qty: 30 0RF cholecalciferol (vitamin D3) [Vitamin D3] 50 mcg (2,000 unit) Tablet 50 mcg PO DAILY 30 Days Qty: 30 0RF Eliquis 5 mg tablet 5 mg PO BID@08, 30 Days Qty: 60 0RF empagliflozin 25 mg Tablet 25 mg PO DAILY 30 Days Qty: 30 0RF Discharge Orders: Discharge ED (Routine); Ordered 05/19/24 Ordered By: Jeny Cervantes Referrals: Jessica Bui MD [Primary Care Provider] - Discharge Diet: Usual diet Discharge Activity: Increase activity as tolerated Patient Instructions: Opioid Safety, Pain Management Activity Restrictions/Additional Instructions: Thank you for choosing [facility] for your healthcare needs today. Please realize this is an emergency room and that we are providing you with a medical screening exam and this may not be complete and all inclusive of all the testing and or work up that you may need to determine your ailment or severity of your illness. You have been screened and evaluated and felt safe for discharge. Health conditions do change or evolve sometimes and as such it is important that you follow up with your Primary Doctor to be re checked, 3-5 days is a general good time frame for follow up. You are always welcome to return to the ED for re assessment if your symptoms are worsening or you have new concerns Print Language: Nigerien Coding Level of Care Code ED Hitting Coach for Chg Fwd Related Data Home Medications ?Medication ?Instructions ?Recorded ?Confirmed pregabalin 300 mg capsule (Lyrica) 300 mg PO BID@08/14/22 05/04/24 magnesium oxide 400 mg PO DAILY@12/19/22 05/04/24 polyethylene glycol 3350 17 17 g PO DAILY@12/19/22 05/04/24 gram/dose oral powder (Miralax) acetaminophen 325 mg tablet 650 mg PO QID PRN pain or temp 04/01/23 05/04/24 finasteride 5 mg tablet 5 mg PO DAILY@08 04/19/23 05/04/24 insulin glargine 100 unit/mL 50 unit SUBCUT BEDTIME 04/19/23 05/04/24 subcutaneous solution (Lantus U-100 Insulin) nitroglycerin 0.4 mg sublingual 0.4 mg sublingual Q5M PRN Chest 04/19/23 05/04/24 tablet (Nitrostat) Pain mupirocin 2 % topical ointment 1 applic topical BID 03/08/24 05/04/24 oxycodone 10 mg tablet 10 mg PO Q4H PRN Pain 03/08/24 05/04/24 potassium chloride 20 mEq 20 meq PO BID 03/08/24 05/04/24 tablet,extended release(part/cryst) zinc oxide 20 % topical ointment See Rx Instructions .Route 03/08/24 05/04/24 .COMPLEX PRN Skin Irritation bisacodyl 10 mg rectal suppository 10 mg ND DAILY PRN Constipation 03/14/24 05/04/24 (Dulcolax (bisacodyl)) dulaglutide 3 mg/0.5 mL 3 mg SUBCUT Q7D 03/14/24 05/04/24 subcutaneous pen injector (Trulicity) furosemide 20 mg tablet (Lasix) See Rx Instructions .Route .COMPLEX 03/14/24 05/04/24 honey 80 % topical gel 1 applic topical BID 03/14/24 05/04/24 multivitamin-ferrous 1 tab PO QAM 03/14/24 05/04/24 fumarate-folic acid 18 mg-400 mcg tablet tuberculin PPD 5 tub. unit/0.1 mL 1 tb unit intradermal ONCE 03/14/24 05/04/24 intradermal injection solution (Tubersol) Previous Rx's ?Medication ?Instructions ?Recorded ottobock afo to right #1 ea 08/05/21 Diabetic Shoes with 3 pairs of #1 ea 06/18/22 inserts Silver Alginate Dressing and 2 #1 ea 08/06/22 Layer Compression System Wraps 2 Layer Compression Bandage #1 ea 01/22/23 System- Coflex TLC LITE Calamine with Indicators 4 in x6 yard/4 in by 7 yard insulin aspart U-100 100 unit/mL 12 unit (0.12 mL) SUBCUT .WITH 09/02/23 subcutaneous solution (Novolog MEALS #10 mL U-100 Insulin aspart) sennosides 8.6 mg-docusate sodium 1 tab PO DAILY #30 tabs 03/11/24 50 mg tablet (Stool Softener-Laxative) fluconazole 100 mg tablet 100 mg PO DAILY #7 tabs 03/14/24 allopurinol 300 mg tablet 300 mg PO DAILY@08 30 days #30 tabs 05/06/24 amlodipine 10 mg tablet 10 mg PO DAILY 30 days #30 tabs 05/06/24 amoxicillin 875 mg-potassium 1 tab PO BID 5 days #10 tabs 05/06/24 clavulanate 125 mg tablet apixaban 5 mg tablet (Eliquis) 5 mg PO BID@08,20 30 days #60 tabs 05/06/24 cholecalciferol (vitamin D3) 50 50 mcg PO DAILY 30 days #30 tabs 05/06/24 mcg (2,000 unit) tablet (Vitamin D3) clopidogrel 75 mg tablet 75 mg PO DAILY 30 days #30 tabs 05/06/24 doxycycline hyclate 100 mg capsule 100 mg PO BID 3 days #6 caps 05/06/24 duloxetine 30 mg capsule,delayed 30 mg PO DAILY@08 30 days #30 caps 05/06/24 release empagliflozin 25 mg tablet 25 mg PO DAILY 30 days #30 tabs 05/06/24 furosemide 40 mg tablet See Rx Instructions .Route 05/06/24 .COMPLEX 30 days #30 tabs hydrochlorothiazide 25 mg tablet 25 mg PO DAILY 30 days #30 tabs 05/06/24 isosorbide mononitrate 20 mg tablet 20 mg PO BID 30 days #60 tabs 05/06/24 lactulose 20 gram/30 mL oral 10 g (15 mL) PO BID 30 days #900 mL 05/06/24 solution losartan 100 mg tablet 100 mg PO DAILY 30 days #30 tabs 05/06/24 pentoxifylline 400 mg 400 mg PO BID 30 days #60 tabs 05/06/24 tablet,extended release rosuvastatin 10 mg tablet 10 mg PO QPM 30 days #30 tabs 05/06/24 tamsulosin 0.4 mg capsule 0.4 mg PO QPM 30 days #30 caps 05/06/24 Allergies Allergy/AdvReac Type Severity Reaction Status Date / Time aspirin Allergy ALGY-Anaphy Verified 05/03/24 18:04 laxis atorvastatin Allergy Unknown Verified 05/03/24 18:04 carvedilol AdvReac diarrhea Verified 05/03/24 18:04 hydralazine AdvReac vomiting Verified 05/03/24 18:04
[2024-05-19 19:14] LABS: Basophils % 0.3 %; Eosinophils # 0.1 10^3/uL (0.0-0.8); Eosinophils % 0.6 %; Hematocrit 47.4 % (37-53); Lymphocytes # 1.9 10^3/uL (0.8-4.8); Lymphocytes % 13.5 %; Mean Corpuscular HGB Conc 31.4 g/dL (30-55); Mean Corpuscular Volume 88.9 fl (82-101); Mean Platelet Volume 10.9 fL (7.4-10.4); Monocytes # 0.8 10^3/uL (0.2-0.9); Monocytes % 5.8 %; Neutrophils # 10.88 10^3/uL (1.8-7.7); Neutrophils % 79.5 %; Nucleated Red Blood Cells % 0 %; Platelet Count 240 10^3/cmm (157-399); Red Blood Count 5.33 10^6/uL (3.85-5.65); Red Cell Distribution Width 16.1 % (12.1-15.1); White Blood Count 13.68 10^3/uL (3.29-11.43)
[2024-05-19 19:29] LABS: Erythrocyte Sedimentation Rate 17 mm/hr (0-10)
[2024-05-19 19:31] LABS: Lactic Sepsis W/Reflex 2.2 mmol/L (0.5-2.2)
[2024-05-19 19:34] LABS: Alanine Aminotransferase 20 U/L (0-41); Albumin Level 3.9 g/dL (3.5-5.2); Alkaline Phosphatase 122 U/L (40-130); Anion Gap 19.7 (5-19); Aspartate Amino Transferase 55 U/L (0-40); Blood Urea Nitrogen 38 mg/dL (8-23); C Reactive Protein 97.1 mg/L (0.0-4.9); Carbon Dioxide 31 mmol/L (22-29); Chloride 103 mmol/L (98-107); Globulin 2.4 g/dL (1.3-4.6); Glucose 146 mg/dL (65-115); Osmolality Calculated 322 mOsm/kg (285-295); Potassium 3.7 mmol/L (3.5-5.1); Sodium 150 mmol/L (136-145); Total Bilirubin 1.4 mg/dL (0.15-1.2); Total Protein 6.3 g/dL (6.6-8.7); Troponin(5th) Baseline 169 ng/L (0-15)
--- NOTE | 2024-05-19 19:44 | ECG_ITS ---
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: : 1950 Requested By: Jeny Briggs Order Number: [id number] Reading MD: Measurements Intervals [place] Rate: 79 P: 0 PA: 0 QRS: 45 QRSD: 118 T: -52 QT: 447 QTc: 515 Interpretive Statements ATRIAL FIBRILLATION RIGHT BUNDLE BRANCH BLOCK [120+ ms QRS DURATION, UPRIGHT V1, 40+ ms S IN I/aVL/V4/V5/V6] SEPTAL MYOCARDIAL INFARCTION , OF INDETERMINATE AGE [40+ ms Q WAVE IN V1/V2] MODERATE T-WAVE ABNORMALITY, CONSIDER ANTEROLATERAL ISCHEMIA [-0.1+ mV T-WAVE IN V3-V6] MODERATE T-WAVE ABNORMALITY, CONSIDER INFERIOR ISCHEMIA [-0.1+ mV T-WAVE IN II/aVF] [email or web address]
[2024-05-19 19:46] LABS: Influenza A NEGATIVE (Negative); Influenza B NEGATIVE (Negative); Respiratory Syncytial Virus Ce NEGATIVE (Negative); SARS-CoV-2 PCR NEGATIVE (Negative)
[2024-05-19 20:05] LABS: Bilirubin Urine Negative (Negative); Blood Urine Negative (Negative); Glucose Urine UA 2+ (Normal); Ketones Urine 1+ (Negative); Leukocyte Esterase Urine Negative (Negative); Nitrate Urine Negative (Negative); Protein Urine 3+ (Negative); Specific Gravity, Urine 1.024 (1.005-1.030); Urine Appearance Cloudy (CLEAR); Urine Color Yellow (Yellow); pH Urine 5.5 (5-7)
[2024-05-19 20:49] LABS: Troponin 5 2HR Delta -3.4 ABS# (0-10)
[2024-05-19 20:50] LABS: Troponin 5 2HR 165.6 ng/L (0-15)
[2024-05-19 20:55] LABS: Reflex Lactate Order REFLEX LACTIC ORDERD
[2024-05-19 21:05] LABS: RBC Urine 0-4 /hpf (0-2); Squamous Epithelial Cell Urine 0-4 /hpf (0-5); UA Manual Slide Review YES; UA Slide Review UA Slide Review Perf
[2024-05-19 21:06] LABS: Bacteria Urine 1+ /hpf; Hyaline Casts Urine 0-4 /lpf; WBC Urine 0-5 /hpf (0-5)
== END 2024-05-19 22:56 | disposition home or self-care (01) ==
PROVIDERS: Emergency Provider Emergency Medicine; PCP Family Medicine
DX: R53.1 Weakness (principal); Z11.52 Encounter for screening for COVID-19; Z79.01 Long term (current) use of anticoagulants; Z79.85 Long-term (current) use of injectable non-insulin antidiabetic drugs; Z79.4 Long term (current) use of insulin; Z87.891 Personal history of nicotine dependence; Z86.73 Personal history of transient ischemic attack (TIA), and cerebral infarction without residual deficits; I25.10 Atherosclerotic heart disease of native coronary artery without angina pectoris; E11.22 Type 2 diabetes mellitus with diabetic chronic kidney disease; I13.0 Hypertensive heart and chronic kidney disease with heart failure and stage 1 through stage 4 chronic kidney disease, or unspecified chronic kidney disease; N18.9 Chronic kidney disease, unspecified; I50.9 Heart failure, unspecified
CPT/HCPCS: 36415; 36600; 71045; 80051; 80053; 81001; 82330; 82805; 83605; 84484; 85025; 85651; 86140; 87040; 87637; 93005; 99285